=== PATIENT | male | born 1970 | race American Indian/Alaskan Native ===

== ENCOUNTER 2016-10-20 12:05 | Outpatient (CLI) | payer OTHER ==
[2016-10-20] MEDS ORDERED: PROVENTIL IH ONE (12:25)
== END 2016-10-20 12:06 | disposition home or self-care (01) ==
LOC: PF 12:05
PROVIDERS: ATTEND Internal Medicine
DX: N19 Unspecified kidney failure (principal); J44.9 Chronic obstructive pulmonary disease, unspecified; J45.909 Unspecified asthma, uncomplicated; I10 Essential (primary) hypertension; E11.9 Type 2 diabetes mellitus without complications; G47.30 Sleep apnea, unspecified
CPT/HCPCS: 94060; 94640; 94729

== ENCOUNTER 2019-01-22 17:19 | Emergency (ER) | payer MEDICARE, OTHER ==
[2019-01-22] MEDS ORDERED: DUONEB *Not for PRN Use IH ONE (17:27)
[2019-01-22] MEDS ORDERED: SOLU-Medrol IV ONE ×2 (17:27→18:07)
[2019-01-22] MEDS ORDERED: BENADRYL IV STA (17:27)
--- NOTE | 2019-01-22 18:04 | XRay Report ---
PROCEDURE: XR CHEST ROUTINE 2V TECHNIQUE: PA and lateral chest radiographs were obtained. HISTORY: COUGH/CHEST PAIN COMPARISONS: None. FINDINGS: Frontal view of the chest was acquired. The heart is normal in size. The lungs appear clear . The pleura and mediastinum are within normal limits. IMPRESSION: No active disease in the chest This document is electronically signed by Matteo Mooney MD., January 22 2019 06:01:42 PM ET
[2019-01-22] MEDS ORDERED: ADRENALINE P/F SUB-Q ONE ×2 (18:07→20:30)
[2019-01-22] MEDS ORDERED: ATROVENT IH ONE (18:07)
[2019-01-22] MEDS ORDERED: PROVENTIL IH ONE (18:07)
[2019-01-22] MEDS ORDERED: MAGNESIUM SULFATE 2GM/50ML 2 GM/50 ML BAG IV ONE (18:08)
[2019-01-22] MEDS ORDERED: NACL 0.9% 250ML 250 ML IV ONE (18:08)
--- NOTE | 2019-01-22 18:08 | Emergency Department Report ---
"ED General Adult HPI - General Chief complaint: Dyspnea/Respdistress Stated complaint: COPD Time Seen by Provider: 01/22/19 17:27 Source: patient, RN notes reviewed, old records reviewed Mode of arrival: Ambulatory Limitations: No Limitations - History of Present Illness Initial comments: This is a 48-year-old gentleman. The patient is not known to this provider previously. He has a history of asthma, hypertension, obesity, obstructive sleep apnea. He has a private gas appliance mechanic, but he cannot recall their name. His primary care doctor is Dr. Harris He presents to the ER today with a complaint of cough, wheezing, sinus pressure, sinus congestion, central chest pressure. His symptoms have been present for the past 2-3 days. His chest wall pain is central and bilateral. It does not radiate to the back, arms and neck. It increases with palpation. It decreases with rest. Positive aspirin consumption in the past 7 days. Denies DVT, pul monary embolus risk factors. There is no vomiting. There is no diaphoresis. The patient endorses chronic shortness of breath, which is worse. He endorses cough, and clear mucus production. He is on home oxygen at home, and uses it on an as-needed basis. He is not use a CPAP machine for sleep apnea, as he endorses an inability to tolerate nasal pillows and facial mask. He reports that his private gas appliance mechanic is aware of this. This is a chronic condition. -: Gradual, days(s) Location: head, face, mouth, chest Radiation: non-radiation Quality: aching Consistency: other Improves with: other Worsens with: other - Related Data Home Medications Medication Instructions Recorded Confirmed Last Taken ALBUTEROL Inhaler (OR & NICU) 2 puff IH QID PRN 04/27/13 01/16/14 04/27/13 [Proair] ALBUTEROL NEB's [Proventil 0.083%] 2.5 mg IH TID PRN 04/27/13 01/16/14 04/27/13 Fluticasone/Salmeterol [Advair 1 puff IH BID 04/27/13 01/16/14 04/27/13 Diskus 250-50 mcg] Potassium Chloride [Klor-Con M10] 10 meq PO QDAY 04/27/13 01/16/14 04/27/13 hydroCHLOROthiazide [Hctz] 12.5 mg PO QDAY 04/27/13 01/16/14 04/27/13 Previous Rx's Medication Instructions Recorded Last Taken Type Albuterol Sulfate [Proair 90 mcg IH Q4HR PRN #2 aer.pow.ba 01/22/19 Unknown Rx Respiclick] Benzonatate [Tessalon Perles] 100 mg PO Q8HR PRN #30 capsule 01/22/19 Unknown Rx Doxycycline Hyclate [Doxycycline 100 mg PO Q12HR 5 Days #10 tab 01/22/19 Unknown Rx Hyclate TAB] Fluticasone [Flonase] 1 spray NS QDAY #1 bottle 01/22/19 Unknown Rx Ibuprofen [Motrin] 600 mg PO Q8H PRN #30 tablet 01/22/19 Unknown Rx Ipratropium (Nf) [Atrovent] 2 puff IH Q6HR PRN #2 inha 01/22/19 Unknown Rx predniSONE [Deltasone] 40 mg PO QDAY #8 tab 01/22/19 Unknown Rx Allergies Allergy/AdvReac Type Severity Reaction Status Date / Time Penicillins Allergy Rash Verified 01/22/19 17:19 ED Review of Systems ROS: Stated complaint: COPD Other details as noted in HPI Constitutional: malaise. denies: fever Respiratory: cough, wheezing Cardiovascular: chest pain Gastrointestinal: denies: abdominal pain, nausea, vomiting Genitourinary: denies: dysuria Musculoskeletal: denies: back pain Skin: denies: lesions Neurological: denies: headache Psychiatric: denies: anxiety ED Past Medical Hx - Past Medical History Hx Hypertension: Yes Hx Congestive Heart Failure: Yes Hx Asthma: Yes Additional medical history: sleep apnea - Social History Smoking Status: Never Smoker Substance Use Type: None - Medications Home Medications: Home Medications Medication Instructions Recorded Confirmed Last Taken Type ALBUTEROL Inhaler (OR & NICU) 2 puff IH QID PRN 04/27/13 01/16/14 04/27/13 History [Proair] ALBUTEROL NEB's [Proventil 0.083%] 2.5 mg IH TID PRN 04/27/13 01/16/14 04/27/13 History Fluticasone/Salmeterol [Advair 1 puff IH BID 04/27/13 01/16/14 04/27/13 History Diskus 250-50 mcg] Potassium Chloride [Klor-Con M10] 10 meq PO QDAY 04/27/13 01/16/14 04/27/13 History hydroCHLOROthiazide [Hctz] 12.5 mg PO QDAY 04/27/13 01/16/14 04/27/13 History Albuterol Sulfate [Proair 90 mcg IH Q4HR PRN #2 aer.pow.ba 01/22/19 Unknown Rx Respiclick] Benzonatate [Tessalon Perles] 100 mg PO Q8HR PRN #30 capsule 01/22/19 Unknown Rx Doxycycline Hyclate [Doxycycline 100 mg PO Q12HR 5 Days #10 tab 01/22/19 Unknown Rx Hyclate TAB] Fluticasone [Flonase] 1 spray NS QDAY #1 bottle 01/22/19 Unknown Rx Ibuprofen [Motrin] 600 mg PO Q8H PRN #30 tablet 01/22/19 Unknown Rx Ipratropium (Nf) [Atrovent] 2 puff IH Q6HR PRN #2 inha 01/22/19 Unknown Rx predniSONE [Deltasone] 40 mg PO QDAY #8 tab 01/22/19 Unknown Rx ED Physical Exam - General Limitations: No Limitations General appearance: alert, in no apparent distress, obese - Head Head exam: Present: atraumatic, normocephalic - Eye Eye exam: Present: normal appearance, EOMI. Absent: nystagmus - ENT ENT exam: Present: normal exam, normal orophraynx, mucous membranes moist, normal external ear exam - Neck Neck exam: Present: normal inspection, full ROM. Absent: tenderness, meningismus - Respiratory Respiratory exam: Present: respiratory distress, wheezes, stridor - Cardiovascular Cardiovascular Exam: Present: regular rate, normal rhythm, normal heart sounds. Absent: bradycardia, tachycardia, irregular rhythm, systolic murmur, diastolic murmur, rubs, gallop - GI/Abdominal GI/Abdominal exam: Present: soft. Absent: distended, tenderness, guarding, rebound, rigid, pulsatile mass - Rectal Rectal exam: Present: deferred - Extremities Exam Extremities exam: Present: normal inspection, full ROM, pedal edema (1+ edema in the bilateral lower extremities.), other (2+ pulses noted in the bilateral upper, lower extremities. Compartments soft. No long bony tenderness. The pelvis is stable.). Absent: calf tenderness - Back Exam Back exam: Present: normal inspection, full ROM. Absent: tenderness, CVA tenderness (R), CVA tenderness (L), paraspinal tenderness, vertebral tenderness - Neurological Exam Neurological exam: Present: alert, oriented X3, other (Extraocular movements intact. Tongue midline. No facial droop. Facial sensation intact to light touch in the V1, V2, V3 distribution bilaterally. 5 and 5 strength in 4 extremities.. Sensation is intact to light touch in 4 extremities.). Absent: motor sensory deficit - Psychiatric Psychiatric exam: Present: normal affect, normal mood - Skin Skin exam: Present: warm, dry, intact, normal color. Absent: rash ED Course Vital Signs 01/22/19 01/22/19 01/22/19 17:27 17:44 17:46 Temperature 98.3 F Pulse Rate 95 H 96 H 89 Pulse Rate [ Right Lower Lobe] Respiratory 24 16 18 Rate Respiratory Rate [Right Lower Lobe] Blood Pressure 133/94 O2 Sat by Pulse 94 97 Oximetry 01/22/19 01/22/19 01/22/19 18:00 18:16 18:30 Temperature Pulse Rate 87 89 95 H Pulse Rate [ Right Lower Lobe] Respiratory 15 20 18 Rate Respiratory Rate [Right Lower Lobe] Blood Pressure 132/83 139/84 139/84 O2 Sat by Pulse 97 94 94 Oximetry 01/22/19 01/22/19 01/22/19 18:46 18:57 18:58 Temperature Pulse Rate 85 Pulse Rate [ 80 80 Right Lower Lobe] Respiratory 21 Rate Respiratory 16 16 Rate [Right Lower Lobe] Blood Pressure 139/84 O2 Sat by Pulse 93 Oximetry 01/22/19 01/22/19 01/22/19 19:00 19:16 19:30 Temperature Pulse Rate 78 86 Pulse Rate [ 80 Right Lower Lobe] Respiratory 9 L 15 Rate Respiratory 17 Rate [Right Lower Lobe] Blood Pressure 139/84 139/84 O2 Sat by Pulse 100 99 Oximetry 01/22/19 01/22/19 20:28 21:28 Temperature Pulse Rate 87 Pulse Rate [ 83 Right Lower Lobe] Respiratory 12 Rate Respiratory 18 Rate [Right Lower Lobe] Blood Pressure 139/84 O2 Sat by Pulse 100 Oximetry - Reevaluation(s) Reevaluation #1: 01/22/19 20:31 Differential diagnosis, including not limited to: Sinusitis, bronchitis, COPD exacerbation, pneumonia, acute coronary syndrome, pulmonary embolus, GERD, gastritis Pulmonary hypertension, obstructive sleep apnea Assessment and plan: 48-year-old gentleman, pulmonary embolus or DVT risk factors, low risk by well's criteria, d-dimer negative, perc negative, with probable COPD exacerbation and sinusitis. EKG abnormal, but unchanged from prior. Troponin negative 1 in the context of over 48 hours of symptoms. Low risk by the heart score, unlikely to be acute coronary syndrome. This is most likely an exacerbation of the patient's chronic underlying respiratory illnesses . He will be treated with albuterol, Atrovent, steroids, magnesium, subcutaneous epinephrine, intranasal Flonase and ibuprofen. He is currently receiving his nebulizer therapy now, feels improved, but is still wheezing. Troponin #2, EKG #2 are pending at this time. Reevaluation #2: 01/22/19 21:45 Patient is reassessed. He feels much improved. Troponin negative 2. EKG unchanged from prior. Worker breathing much improved. Wheezing has diminished considerably. Given past medical history expect mild degree of VQ mismatch. Patient saturating 88% to 95% on room air. He endorses readiness for discharge. We will discharge instructions follow up with outpatient pulmonology, cardiology. Return precautions are reviewed. Patient endorses understanding. ED Medical Decision Making - Lab Data Result diagrams: 01/22/19 18:12 01/22/19 18:12 Vital Signs 01/22/19 01/22/19 01/22/19 17:27 17:44 17:46 Temperature 98.3 F Pulse Rate 95 H 96 H 89 Pulse Rate [ Right Lower Lobe] Respiratory 24 16 18 Rate Respiratory Rate [Right Lower Lobe] Blood Pressure 133/94 O2 Sat by Pulse 94 97 Oximetry 01/22/19 01/22/19 01/22/19 18:00 18:16 18:30 Temperature Pulse Rate 87 89 95 H Pulse Rate [ Right Lower Lobe] Respiratory 15 20 18 Rate Respiratory Rate [Right Lower Lobe] Blood Pressure 132/83 139/84 139/84 O2 Sat by Pulse 97 94 94 Oximetry 01/22/19 01/22/19 01/22/19 18:46 18:57 18:58 Temperature Pulse Rate 85 Pulse Rate [ 80 80 Right Lower Lobe] Respiratory 21 Rate Respiratory 16 16 Rate [Right Lower Lobe] Blood Pressure 139/84 O2 Sat by Pulse 93 Oximetry 01/22/19 01/22/19 01/22/19 19:00 19:16 19:30 Temperature Pulse Rate 78 86 Pulse Rate [ 80 Right Lower Lobe] Respiratory 9 L 15 Rate Respiratory 17 Rate [Right Lower Lobe] Blood Pressure 139/84 139/84 O2 Sat by Pulse 100 99 Oximetry 01/22/19 20:28 Temperature Pulse Rate 87 Pulse Rate [ Right Lower Lobe] Respiratory 12 Rate Respiratory Rate [Right Lower Lobe] Blood Pressure 139/84 O2 Sat by Pulse 100 Oximetry Lab Results 01/22/19 01/22/19 01/22/19 Range/Units 18:12 18:12 18:12 WBC 8.5 (4.5-11.0) K/mm3 RBC 4.34 (3.65-5.03) M/mm3 Hgb 13.3 (11.8-15.2) gm/dl Hct 39.6 (35.5-45.6) % MCV 91 (84-94) fl MCH 31 (28-32) pg MCHC 34 (32-34) % RDW 14.7 (13.2-15.2) % Plt Count 319 (140-440) K/mm3 PT 13.5 (12.2-14.9) Sec. INR 1.06 (0.87-1.13) D-Dimer 136.37 (0-234) ng/mlDDU Sodium 140 (137-145) mmol/L Potassium 3.4 L (3.6-5.0) mmol/L Chloride 99.7 (98-107) mmol/L Carbon Dioxide 28 (22-30) mmol/L Anion Gap 16 mmol/L BUN 20 (9-20) mg/dL Creatinine 1.0 (0.8-1.5) mg/dL Estimated GFR > 60 ml/min BUN/Creatinine Ratio 20 % Glucose 107 H (75-100) mg/dL Calcium 8.7 (8.4-10.2) mg/dL Magnesium (1.7-2.3) mg/dL Troponin T < 0.010 (0.00-0.029) ng/mL 01/22/19 Range/Units 18:12 WBC (4.5-11.0) K/mm3 RBC (3.65-5.03) M/mm3 Hgb (11.8-15.2) gm/dl Hct (35.5-45.6) % MCV (84-94) fl MCH (28-32) pg MCHC (32-34) % RDW (13.2-15.2) % Plt Count (140-440) K/mm3 PT (12.2-14.9) Sec. INR (0.87-1.13) D-Dimer (0-234) ng/mlDDU Sodium (137-145) mmol/L Potassium (3.6-5.0) mmol/L Chloride (98-107) mmol/L Carbon Dioxide (22-30) mmol/L Anion Gap mmol/L BUN (9-20) mg/dL Creatinine (0.8-1.5) mg/dL Estimated GFR ml/min BUN/Creatinine Ratio % Glucose (75-100) mg/dL Calcium (8.4-10.2) mg/dL Magnesium 2.10 (1.7-2.3) mg/dL Troponin T (0.00-0.029) ng/mL - EKG Data -: EKG Interpreted by [facility] EKG shows normal: sinus rhythm Rate: normal - EKG Data When compared to previous EKG there are: no significant change 01/22/19 20:33 EKG shows a normal sinus rhythm, 92 bpm, left axis, left anterior fascicular block, QTC prolonged, motion artifact, this is an abnormal EKG. This EKG is not consistent with ST elevation myocardial infarction. This EKG is unchanged from prior EKG from January 2014 - Radiology Data Radiology results: report reviewed, image reviewed X-ray of the chest is negative for acute disease Critical care attestation.: If time is entered above; I have spent that time in minutes in the direct care of this critically ill patient, excluding procedure time. ED Disposition Clinical Impression: COPD exacerbation, History of chest pain Disposition: DC-01 TO HOME OR SELFCARE Is pt being admited?: No Does the pt Need Aspirin: No Condition: Good Instructions: Chronic Obstructive Pulmonary Disease (ED) Additional Instructions: Continue outpatient medications. Take the medications as needed/directed. Follow up with a gas appliance mechanic and/or sleep specialist within the next 2-3 weeks. Follow up with a primary care doctor or pupil personnel worker for chest pain within the next 3-5 days. Return to the emergency room right away with new, worsening or different symptoms, or symptoms not present on the initial emergency room evaluation. Dr Win, sleep physician: [place] [id number] [address], [address] | [address] / [facility]: [address] [facility] [place] [facility] [address], [address] | [place], [place] [address] Laboratory: [address] [facility] [address] | [place], [place] [address] PHONE: [phone] PAP Supplies: [phone] Other local pulmonary doctors include the following physicians: Briseida Garber Local family centered specialist included doctors Aaron Valerio Referrals: [facility] MD THOR [Primary Care Provider] - 3-5 Days ALBA BRAVO MD [Staff Physician] - 3-5 Days CHAIM GOMEZ MD [Staff Physician] - 3-5 Days MACIEJ VALERIO MD [Staff Physician] - 3-5 Days KAYLA LY MD [Staff Physician] - 3-5 Days"
[2019-01-22 18:44] LABS: Hematocrit 39.6 % (35.5-45.6); Hemoglobin 13.3 gm/dl (11.8-15.2); Mean Corpuscular HGB Conc 34 % (32-34); Mean Corpuscular Volume 91 fl (84-94); Platelet Count 319 K/mm3 (140-440); Red Blood Count 4.34 M/mm3 (3.65-5.03); Red Cell Distribution Width 14.7 % (13.2-15.2)
[2019-01-22 18:47] LABS: INR 1.06 (0.87-1.13)
[2019-01-22 18:53] LABS: BUN/Creatinine Ratio 20; Blood Urea Nitrogen 20 mg/dL (9-20); Calcium 8.7 mg/dL (8.4-10.2); Hemolysis Index 1
[2019-01-22] MEDS ORDERED: IBUPROFEN PO ONE (20:30)
[2019-01-22] MEDS ORDERED: K-DUR PO ONE (20:33)
[2019-01-22] MEDS ORDERED: FLONASE NS ONE (21:00)
[2019-01-22 22:07] VITALS: BP 145/68
== END 2019-01-22 22:15 | disposition home or self-care (01) ==
LOC: ED 17:19
DX: J44.1 Chronic obstructive pulmonary disease with (acute) exacerbation (principal); R07.89 Other chest pain; I11.0 Hypertensive heart disease with heart failure; I50.9 Heart failure, unspecified; Z79.899 Other long term (current) drug therapy; Z88.0 Allergy status to penicillin
CPT/HCPCS: 36415; 71046; 80048; 83735; 84484; 85027; 85379; 85610; 93005; 93010; 94640; 94644; 96365; 96372; 96375; 99285; J0171; J2930; J3475; J7050

== ENCOUNTER 2019-02-26 16:37 | Emergency (ER) | payer MEDICARE ==
--- NOTE | 2019-02-26 16:42 | Event Note ---
ED Screening Note Date of service: 02/26/19 Time: 16:41 ED Screening Note: 49 y/o male comes in for sob history of COPD and Asthma since 2-3 days. Still smokes. This initial assessment/diagnostic orders/clinical plan/treatment(s) is/are subject to change based on patients health status, clinical progression and re- assessment by fellow clinical providers in the ED. Further treatment and workup at subsequent clinical providers discretion. Patient/guardian urged not to elope from the ED as their condition may be serious if not clinically assessed and managed. Initial orders include:
[2019-02-26 17:11] LABS: Hematocrit 41.6 % (35.5-45.6); Mean Corpuscular HGB Conc 34 % (32-34); Mean Corpuscular Volume 93 fl (84-94); Platelet Count 304 K/mm3 (140-440); Red Blood Count 4.48 M/mm3 (3.65-5.03); Red Cell Distribution Width 14.8 % (13.2-15.2)
--- NOTE | 2019-02-26 17:13 | XRay Report ---
. CHEST 2 VIEWS INDICATION / CLINICAL INFORMATION: sob. COMPARISON: 01/22/2019 FINDINGS: SUPPORT DEVICES: None. HEART / MEDIASTINUM: No significant abnormality. LUNGS / PLEURA: No significant pulmonary or pleural abnormality. No pneumothorax. ADDITIONAL FINDINGS: No significant additional findings. IMPRESSION: 1. No acute findings. Signer Name: Ced Smith MD Signed: 02/26/2019 5:08 PM Workstation Name: [id number]
[2019-02-26] MEDS ORDERED: PROVENTIL IH ONE (17:24)
[2019-02-26] MEDS ORDERED: ATROVENT IH ONE (17:24)
[2019-02-26] MEDS ORDERED: SOLU-Medrol IV ONE (17:24)
--- NOTE | 2019-02-26 17:27 | Emergency Department Report ---
ED General Adult HPI - General Chief complaint: Upper Respiratory Infection Stated complaint: COPD/SOB Time Seen by Provider: 02/26/19 17:00 Source: patient Mode of arrival: Ambulatory Limitations: No Limitations - History of Present Illness Initial comments: The patient presents to the emergency department with a chief complaint of shortness of breath. The patient states he has COPD and takes 20 mg of prednisone twice daily( for 8 years) but has run out of his steroids at home. Patient denies any chest pain, abdominal pain, headache.Patient states the breathing treatments aren't working -: Gradual Severity scale (0 -10): 0 Consistency: constant Improves with: none Worsens with: none Associated Symptoms: denies other symptoms Treatments Prior to Arrival: none - Related Data Home Medications Medication Instructions Recorded Confirmed Last Taken ALBUTEROL Inhaler (OR & NICU) 2 puff IH QID PRN 04/27/13 01/16/14 04/27/13 [Proair] ALBUTEROL NEB's [Proventil 0.083%] 2.5 mg IH TID PRN 04/27/13 01/16/14 04/27/13 Fluticasone/Salmeterol [Advair 1 puff IH BID 04/27/13 01/16/14 04/27/13 Diskus 250-50 mcg] Potassium Chloride [Klor-Con M10] 10 meq PO QDAY 04/27/13 01/16/14 04/27/13 hydroCHLOROthiazide [Hctz] 12.5 mg PO QDAY 04/27/13 01/16/14 04/27/13 Previous Rx's Medication Instructions Recorded Last Taken Type Albuterol Sulfate [Proair 90 mcg IH Q4HR PRN #2 aer.pow.ba 01/22/19 Unknown Rx Respiclick] Benzonatate [Tessalon Perles] 100 mg PO Q8HR PRN #30 capsule 01/22/19 Unknown Rx Doxycycline Hyclate [Doxycycline 100 mg PO Q12HR 5 Days #10 tab 01/22/19 Unknown Rx Hyclate TAB] Fluticasone [Flonase] 1 spray NS QDAY #1 bottle 01/22/19 Unknown Rx Ibuprofen [Motrin] 600 mg PO Q8H PRN #30 tablet 01/22/19 Unknown Rx Ipratropium (Nf) [Atrovent] 2 puff IH Q6HR PRN #2 inha 01/22/19 Unknown Rx predniSONE [Deltasone] 40 mg PO QDAY #8 tab 01/22/19 Unknown Rx ALBUTEROL Inhaler (OR & NICU) 2 puff IH QID PRN #1 inhalation 01/23/19 Unknown Rx [ProAir HFA Inhaler] Albuterol Sulfate [Albuterol 0.63% 0.63 mg IH Q4HR PRN #2 ml 01/23/19 Unknown Rx NEBS] Ipratropium [Atrovent NEB] 0.5 mg IH Q4HR #2 ml 01/23/19 Unknown Rx Azithromycin [Zithromax Z-JESICA] 250 mg PO DAILY #6 tablet 02/26/19 Unknown Rx predniSONE [Deltasone] 20 mg PO BID #14 tablet 02/26/19 Unknown Rx Allergies Allergy/AdvReac Type Severity Reaction Status Date / Time Penicillins Allergy Rash Verified 01/22/19 17:19 ED Review of Systems ROS: Stated complaint: COPD/SOB Other details as noted in HPI Constitutional: denies: chills, fever Eyes: denies: eye pain, eye discharge, vision change ENT: denies: ear pain, throat pain Respiratory: shortness of breath. denies: cough, wheezing Cardiovascular: denies: chest pain, palpitations Endocrine: no symptoms reported Gastrointestinal: denies: abdominal pain, nausea, diarrhea Genitourinary: denies: urgency, dysuria Musculoskeletal: denies: back pain, joint swelling, arthralgia Skin: denies: rash, lesions Neurological: denies: headache, weakness, paresthesias Psychiatric: denies: anxiety, depression Hematological/Lymphatic: denies: easy bleeding, easy bruising ED Past Medical Hx - Past Medical History Previous Medical History?: Yes Hx Hypertension: Yes Hx Congestive Heart Failure: Yes Hx Asthma: Yes Additional medical history: sleep apnea - Surgical History Past Surgical History?: No - Social History Smoking Status: Current Some Day Smoker Substance Use Type: Alcohol - Medications Home Medications: Home Medications Medication Instructions Recorded Confirmed Last Taken Type ALBUTEROL Inhaler (OR & NICU) 2 puff IH QID PRN 04/27/13 01/16/14 04/27/13 History [Proair] ALBUTEROL NEB's [Proventil 0.083%] 2.5 mg IH TID PRN 04/27/13 01/16/14 04/27/13 History Fluticasone/Salmeterol [Advair 1 puff IH BID 04/27/13 01/16/14 04/27/13 History Diskus 250-50 mcg] Potassium Chloride [Klor-Con M10] 10 meq PO QDAY 04/27/13 01/16/14 04/27/13 History hydroCHLOROthiazide [Hctz] 12.5 mg PO QDAY 04/27/13 01/16/14 04/27/13 History Albuterol Sulfate [Proair 90 mcg IH Q4HR PRN #2 aer.pow.ba 01/22/19 Unknown Rx Respiclick] Benzonatate [Tessalon Perles] 100 mg PO Q8HR PRN #30 capsule 01/22/19 Unknown Rx Doxycycline Hyclate [Doxycycline 100 mg PO Q12HR 5 Days #10 tab 01/22/19 Unknown Rx Hyclate TAB] Fluticasone [Flonase] 1 spray NS QDAY #1 bottle 01/22/19 Unknown Rx Ibuprofen [Motrin] 600 mg PO Q8H PRN #30 tablet 01/22/19 Unknown Rx Ipratropium (Nf) [Atrovent] 2 puff IH Q6HR PRN #2 inha 01/22/19 Unknown Rx predniSONE [Deltasone] 40 mg PO QDAY #8 tab 01/22/19 Unknown Rx ALBUTEROL Inhaler (OR & NICU) 2 puff IH QID PRN #1 inhalation 01/23/19 Unknown Rx [ProAir HFA Inhaler] Albuterol Sulfate [Albuterol 0.63% 0.63 mg IH Q4HR PRN #2 ml 01/23/19 Unknown Rx NEBS] Ipratropium [Atrovent NEB] 0.5 mg IH Q4HR #2 ml 01/23/19 Unknown Rx Azithromycin [Zithromax Z-JESICA] 250 mg PO DAILY #6 tablet 02/26/19 Unknown Rx predniSONE [Deltasone] 20 mg PO BID #14 tablet 02/26/19 Unknown Rx ED Physical Exam - General Limitations: No Limitations General appearance: alert, in no apparent distress - Head Head exam: Present: atraumatic, normocephalic - Eye Eye exam: Present: normal appearance - ENT ENT exam: Present: mucous membranes moist - Neck Neck exam: Present: normal inspection - Respiratory Respiratory exam: Present: wheezes. Absent: respiratory distress - Cardiovascular Cardiovascular Exam: Present: regular rate, normal rhythm. Absent: systolic murmur, diastolic murmur, rubs, gallop - GI/Abdominal GI/Abdominal exam: Present: soft, normal bowel sounds. Absent: distended, tenderness - Rectal Rectal exam: Present: deferred - Extremities Exam Extremities exam: Present: normal inspection - Back Exam Back exam: Present: normal inspection - Neurological Exam Neurological exam: Present: alert, oriented X3, CN II-XII intact. Absent: motor sensory deficit - Psychiatric Psychiatric exam: Present: normal affect, normal mood - Skin Skin exam: Present: warm, dry, intact, normal color. Absent: rash ED Course Vital Signs 02/26/19 02/26/19 02/26/19 16:40 17:08 17:09 Temperature 97.9 F Pulse Rate 86 Pulse Rate [ Throughout] Respiratory 20 Rate Respiratory Rate [ Throughout] Blood Pressure 154/98 O2 Sat by Pulse 94 95 94 Oximetry 02/26/19 02/26/19 02/26/19 17:10 17:11 17:12 Temperature Pulse Rate 91 H 93 H Pulse Rate [ Throughout] Respiratory 15 13 17 Rate Respiratory Rate [ Throughout] Blood Pressure 141/96 141/96 O2 Sat by Pulse 93 95 96 Oximetry 02/26/19 02/26/19 02/26/19 17:13 17:31 18:01 Temperature Pulse Rate 86 84 84 Pulse Rate [ Throughout] Respiratory 15 20 18 Rate Respiratory Rate [ Throughout] Blood Pressure 141/96 141/96 136/103 O2 Sat by Pulse 93 91 97 Oximetry 02/26/19 18:31 Temperature Pulse Rate Pulse Rate [ 99 H Throughout] Respiratory Rate Respiratory 20 Rate [ Throughout] Blood Pressure O2 Sat by Pulse Oximetry ED Medical Decision Making - Lab Data Result diagrams: 02/26/19 16:47 02/26/19 16:47 Lab Results 02/26/19 02/26/19 Range/Units 16:47 16:47 WBC 7.5 (4.5-11.0) K/mm3 RBC 4.48 (3.65-5.03) M/mm3 Hgb 14.0 (11.8-15.2) gm/dl Hct 41.6 (35.5-45.6) % MCV 93 (84-94) fl MCH 31 (28-32) pg MCHC 34 (32-34) % RDW 14.8 (13.2-15.2) % Plt Count 304 (140-440) K/mm3 Sodium 141 (137-145) mmol/L Potassium 3.9 (3.6-5.0) mmol/L Chloride 102.9 (98-107) mmol/L Carbon Dioxide 26 (22-30) mmol/L Anion Gap 16 mmol/L BUN 15 (9-20) mg/dL Creatinine 1.1 (0.8-1.5) mg/dL Estimated GFR > 60 ml/min BUN/Creatinine Ratio 14 % Glucose 106 H (75-100) mg/dL Calcium 8.9 (8.4-10.2) mg/dL Total Bilirubin 0.40 (0.1-1.2) mg/dL AST 24 (5-40) units/L ALT 25 (7-56) units/L Alkaline Phosphatase 71 (35-129) units/L NT-Pro-B Natriuret Pep 10.58 (0-450) pg/mL Total Protein 7.6 (6.3-8.2) g/dL Albumin 3.8 L (3.9-5) g/dL Albumin/Globulin Ratio 1.0 % - Radiology Data Radiology results: report reviewed - Medical Decision Making Improved with continuous breathing treatment patient states he needs hos steroids Patient states he has a x ray service technician appointment on the 30th Critical care attestation.: If time is entered above; I have spent that time in minutes in the direct care of this critically ill patient, excluding procedure time. ED Disposition Clinical Impression: COPD with acute exacerbation Disposition: DC- TO HOME OR SELFCARE Is pt being admited?: No Does the pt Need Aspirin: No Condition: Stable Instructions: Chronic Obstructive Pulmonary Disease (ED) Additional Instructions: return if worse Prescriptions: predniSONE [Deltasone] 20 mg PO BID #14 tablet Azithromycin [Zithromax Z-JESICA] 250 mg PO DAILY #6 tablet Referrals: PRIMARY CARE, [Primary Care Provider] - 3-5 Days [facility] [Provider Group] - 3-5 Days [facility] [Provider Group] - 3-5 Days Time of Disposition: 18:49
[2019-02-26 17:31] LABS: Alanine Aminotransferase 25 units/L (7-56); Albumin 3.8 g/dL (3.9-5); BUN/Creatinine Ratio 14; Blood Urea Nitrogen 15 mg/dL (9-20); Calcium 8.9 mg/dL (8.4-10.2); Hemolysis Index 36
[2019-02-26 18:57] VITALS: BP 133/101
== END 2019-02-26 19:32 | disposition home or self-care (01) ==
LOC: ED 16:37
DX: J44.1 Chronic obstructive pulmonary disease with (acute) exacerbation (principal); I11.0 Hypertensive heart disease with heart failure; I50.9 Heart failure, unspecified; G47.30 Sleep apnea, unspecified; F17.200 Nicotine dependence, unspecified, uncomplicated; Z79.899 Other long term (current) drug therapy; Z88.0 Allergy status to penicillin; Z79.1 Long term (current) use of non-steroidal anti-inflammatories (NSAID)
CPT/HCPCS: 36415; 71046; 80053; 83880; 85027; 94640; 96374; 99284; J2930; 94644

== ENCOUNTER 2019-03-30 10:43 | Emergency (ER) | payer MEDICARE ==
[2019-03-30 11:22] LABS: Basophils % (Auto) 0.6 % (0.0-1.8); Eosinophils # (Auto) 0.2 K/mm3 (0.0-0.4); Hematocrit 45.1 % (35.5-45.6); Hemoglobin 15.6 gm/dl (11.8-15.2); Lymphocytes # (Auto) 2.4 K/mm3 (1.2-5.4); Lymphocytes % (Auto) 41.9 % (13.4-35.0); Mean Corpuscular HGB Conc 35 % (32-34); Mean Corpuscular Volume 91 fl (84-94); Monocytes # (Auto) 0.5 K/mm3 (0.0-0.8); Monocytes % (Auto) 9.5 % (0.0-7.3); Platelet Count 213 K/mm3 (140-440); Red Blood Count 4.96 M/mm3 (3.65-5.03); Red Cell Distribution Width 14.2 % (13.2-15.2)
[2019-03-30 11:26] LABS: Bilirubin,Urine NEG (Negative); Blood,Urine SM (Negative); Color,Urine Straw (Yellow); Urobilinogen,Urine < 2.0 mg/dL (<2.0); WBC,Urine < 1.0 /HPF (0.0-6.0)
[2019-03-30 11:39] LABS: Alanine Aminotransferase 31 units/L (7-56); Albumin 3.8 g/dL (3.9-5); BUN/Creatinine Ratio 10; Blood Urea Nitrogen 10 mg/dL (9-20); Hemolysis Index 49
--- NOTE | 2019-03-30 11:51 | Emergency Department Report ---
ED General Adult HPI - General Chief complaint: Weakness Stated complaint: LIGHT HEADED/SOB/DRY MOUTH Time Seen by Provider: 03/30/19 11:33 Source: patient Mode of arrival: Ambulatory Limitations: No Limitations - History of Present Illness Initial comments: This is a 49-year-old male with a history of COPD on daily steroids presents to ED stating that his glucose were out of whack. Patient states that his primary care physician has him on steroids 20 mg twice a day. Patient states since he isn't taking steroids his glucose has not been controlled. This is states that he is not taking insulin or any hypoglycemic medication. Patient states he since been taking steroids that his States recently glucose levels have been elevated. Patient states that he's having dry mouth, fatigue and frequent urination which his symptoms of his diabetes uncontrolled. Patient denies any nausea vomiting diarrhea abdominal pain - Related Data Home Medications Medication Instructions Recorded Confirmed Last Taken ALBUTEROL Inhaler (OR & NICU) 2 puff IH QID PRN 04/27/13 01/16/14 04/27/13 [Proair] ALBUTEROL NEB's [Proventil 0.083%] 2.5 mg IH TID PRN 04/27/13 01/16/14 04/27/13 Fluticasone/Salmeterol [Advair 1 puff IH BID 04/27/13 01/16/14 04/27/13 Diskus 250-50 mcg] Potassium Chloride [Klor-Con M10] 10 meq PO QDAY 04/27/13 01/16/14 04/27/13 hydroCHLOROthiazide [Hctz] 12.5 mg PO QDAY 04/27/13 01/16/14 04/27/13 Previous Rx's Medication Instructions Recorded Last Taken Type Albuterol Sulfate [Proair 90 mcg IH Q4HR PRN #2 aer.pow.ba 01/22/19 Unknown Rx Respiclick] Benzonatate [Tessalon Perles] 100 mg PO Q8HR PRN #30 capsule 01/22/19 Unknown Rx Doxycycline Hyclate [Doxycycline 100 mg PO Q12HR 5 Days #10 tab 01/22/19 Unknown Rx Hyclate TAB] Fluticasone [Flonase] 1 spray NS QDAY #1 bottle 01/22/19 Unknown Rx Ibuprofen [Motrin] 600 mg PO Q8H PRN #30 tablet 01/22/19 Unknown Rx Ipratropium (Nf) [Atrovent] 2 puff IH Q6HR PRN #2 inha 01/22/19 Unknown Rx predniSONE [Deltasone] 40 mg PO QDAY #8 tab 01/22/19 Unknown Rx ALBUTEROL Inhaler (OR & NICU) 2 puff IH QID PRN #1 inhalation 01/23/19 Unknown Rx [ProAir HFA Inhaler] Albuterol Sulfate [Albuterol 0.63% 0.63 mg IH Q4HR PRN #2 ml 01/23/19 Unknown Rx NEBS] Ipratropium [Atrovent NEB] 0.5 mg IH Q4HR #2 ml 01/23/19 Unknown Rx Azithromycin [Zithromax Z-JESICA] 250 mg PO DAILY #6 tablet 02/26/19 Unknown Rx predniSONE [Deltasone] 20 mg PO BID #14 tablet 02/26/19 Unknown Rx metFORMIN [Glucophage] 500 mg PO BID #30 tablet 03/30/19 Unknown Rx Allergies Allergy/AdvReac Type Severity Reaction Status Date / Time Penicillins Allergy Rash Verified 03/30/19 10:45 ED Review of Systems ROS: Stated complaint: LIGHT HEADED/SOB/DRY MOUTH Other details as noted in HPI Comment: All other systems reviewed and negative ED Past Medical Hx - Past Medical History Hx Hypertension: Yes Hx Congestive Heart Failure: Yes Hx Asthma: Yes Additional medical history: sleep apnea - Social History Smoking Status: Current Some Day Smoker Substance Use Type: Alcohol - Medications Home Medications: Home Medications Medication Instructions Recorded Confirmed Last Taken Type ALBUTEROL Inhaler (OR & NICU) 2 puff IH QID PRN 04/27/13 01/16/14 04/27/13 History [Proair] ALBUTEROL NEB's [Proventil 0.083%] 2.5 mg IH TID PRN 04/27/13 01/16/14 04/27/13 History Fluticasone/Salmeterol [Advair 1 puff IH BID 04/27/13 01/16/14 04/27/13 History Diskus 250-50 mcg] Potassium Chloride [Klor-Con M10] 10 meq PO QDAY 04/27/13 01/16/14 04/27/13 History hydroCHLOROthiazide [Hctz] 12.5 mg PO QDAY 04/27/13 01/16/14 04/27/13 History Albuterol Sulfate [Proair 90 mcg IH Q4HR PRN #2 aer.pow.ba 01/22/19 Unknown Rx Respiclick] Benzonatate [Tessalon Perles] 100 mg PO Q8HR PRN #30 capsule 01/22/19 Unknown Rx Doxycycline Hyclate [Doxycycline 100 mg PO Q12HR 5 Days #10 tab 01/22/19 Unknown Rx Hyclate TAB] Fluticasone [Flonase] 1 spray NS QDAY #1 bottle 01/22/19 Unknown Rx Ibuprofen [Motrin] 600 mg PO Q8H PRN #30 tablet 01/22/19 Unknown Rx Ipratropium (Nf) [Atrovent] 2 puff IH Q6HR PRN #2 inha 01/22/19 Unknown Rx predniSONE [Deltasone] 40 mg PO QDAY #8 tab 01/22/19 Unknown Rx ALBUTEROL Inhaler (OR & NICU) 2 puff IH QID PRN #1 inhalation 01/23/19 Unknown Rx [ProAir HFA Inhaler] Albuterol Sulfate [Albuterol 0.63% 0.63 mg IH Q4HR PRN #2 ml 01/23/19 Unknown Rx NEBS] Ipratropium [Atrovent NEB] 0.5 mg IH Q4HR #2 ml 01/23/19 Unknown Rx Azithromycin [Zithromax Z-JESICA] 250 mg PO DAILY #6 tablet 02/26/19 Unknown Rx predniSONE [Deltasone] 20 mg PO BID #14 tablet 02/26/19 Unknown Rx metFORMIN [Glucophage] 500 mg PO BID #30 tablet 03/30/19 Unknown Rx ED Physical Exam - General Limitations: No Limitations General appearance: alert, in no apparent distress - Head Head exam: Present: atraumatic, normocephalic - Eye Eye exam: Present: normal appearance - ENT ENT exam: Present: mucous membranes moist - Neck Neck exam: Present: normal inspection - Respiratory Respiratory exam: Present: normal lung sounds bilaterally. Absent: respiratory distress - Cardiovascular Cardiovascular Exam: Present: regular rate, normal rhythm. Absent: systolic murmur, diastolic murmur, rubs, gallop - GI/Abdominal GI/Abdominal exam: Present: soft, normal bowel sounds - Rectal Rectal exam: Present: deferred - Extremities Exam Extremities exam: Present: normal inspection - Back Exam Back exam: Present: normal inspection - Neurological Exam Neurological exam: Present: alert, oriented X3 - Psychiatric Psychiatric exam: Present: normal affect, normal mood - Skin Skin exam: Present: warm, dry, intact, normal color. Absent: rash ED Course Vital Signs 03/30/19 03/30/19 11:06 14:26 Temperature 98.0 F Pulse Rate 78 Respiratory 20 14 Rate Blood Pressure 178/109 [Right] O2 Sat by Pulse 95 Oximetry ED Medical Decision Making - Lab Data Result diagrams: 03/30/19 11:06 03/30/19 11:06 Laboratory Last Values WBC 5.7 K/mm3 (4.5-11.0) 03/30/19 11:06 RBC 4.96 M/mm3 (3.65-5.03) 03/30/19 11:06 Hgb 15.6 gm/dl (11.8-15.2) H 03/30/19 11:06 Hct 45.1 % (35.5-45.6) 03/30/19 11:06 MCV 91 fl (84-94) 03/30/19 11:06 MCH 32 pg (28-32) 03/30/19 11:06 MCHC 35 % (32-34) H 03/30/19 11:06 RDW 14.2 % (13.2-15.2) 03/30/19 11:06 Plt Count 213 K/mm3 (140-440) 03/30/19 11:06 Lymph % (Auto) 41.9 % (13.4-35.0) H 03/30/19 11:06 [place] % (Auto) 9.5 % (0.0-7.3) H 03/30/19 11:06 Eos % (Auto) 4.0 % (0.0-4.3) 03/30/19 11:06 Baso % (Auto) 0.6 % (0.0-1.8) 03/30/19 11:06 Lymph # 2.4 K/mm3 (1.2-5.4) 03/30/19 11:06 [place] # 0.5 K/mm3 (0.0-0.8) 03/30/19 11:06 Eos # 0.2 K/mm3 (0.0-0.4) 03/30/19 11:06 Baso # 0.0 K/mm3 (0.0-0.1) 03/30/19 11:06 Seg Neutrophils % 44.0 % (40.0-70.0) 03/30/19 11:06 Seg Neutrophils # 2.5 K/mm3 (1.8-7.7) 03/30/19 11:06 Sodium 132 mmol/L (137-145) L 03/30/19 11:06 Potassium 3.8 mmol/L (3.6-5.0) 03/30/19 11:06 Chloride 91.8 mmol/L (98-107) L 03/30/19 11:06 Carbon Dioxide 25 mmol/L (22-30) 03/30/19 11:06 19 mmol/L 03/30/19 11:06 BUN 10 mg/dL (9-20) 03/30/19 11:06 1.0 mg/dL (0.8-1.5) 03/30/19 11:06 Estimated GFR > 60 ml/min 03/30/19 11:06 10 % 03/30/19 11:06 Glucose 486 mg/dL (75-100) H 03/30/19 11:06 POC Glucose 412 (70-105) H 03/30/19 10:58 Calcium 9.0 mg/dL (8.4-10.2) 03/30/19 11:06 0.50 mg/dL (0.1-1.2) 03/30/19 11:06 AST 22 units/L (5-40) 03/30/19 11:06 ALT 31 units/L (7-56) 03/30/19 11:06 89 units/L (35-129) 03/30/19 11:06 < 0.010 ng/mL (0.00-0.029) 03/30/19 11:06 7.4 g/dL (6.3-8.2) 03/30/19 11:06 3.8 g/dL (3.9-5) L 03/30/19 11:06 1.1 % 03/30/19 11:06 Straw (Yellow) 03/30/19 Unknown Clear (Clear) 03/30/19 Unknown 5.0 (5.0-7.0) 03/30/19 Unknown Ur Specific [place] 1.032 (1.003-1.030) H 03/30/19 Unknown 30 mg/dl mg/dL (Negative) 03/30/19 Unknown >=500 mg/dL (Negative) 03/30/19 Unknown 20 mg/dL (Negative) 03/30/19 Unknown Sm (Negative) 03/30/19 Unknown Neg (Negative) 03/30/19 Unknown Neg (Negative) 03/30/19 Unknown < 2.0 mg/dL (<2.0) 03/30/19 Unknown Ur Leukocyte Esterase Neg (Negative) 03/30/19 Unknown < 1.0 /HPF (0.0-6.0) 03/30/19 Unknown 2.0 /HPF (0.0-6.0) 03/30/19 Unknown U Epithel Cells (Auto) < 1.0 /HPF (0-13.0) 03/30/19 Unknown - Medical Decision Making 49-year-old male presents with hyperglycemia complaining of frequent urination. Patient is currently on steroids daily for a COPD. Patient states that he has been taking steroids for many years now Patient was infused with the 2 L of normal saline with 10 units of insulin. CBC within normal limits, urinalysis within normal limits. Glucose was rechecked after administration Discussed findings with the patient. Discussed the patient units of follow-up with the primary care physician who used to manage his hyperglycemia due to the amount of steroids taken. Discussed the patient Discussed the patient to follow up with his primary care physician and discuss prescribing him insulin dose to keep his glucose under control. Glucose reduced to 203 prior to Discharge. Patient given metformin twice a day to manage glucose levels temporarily until he follows up with primary care Critical care attestation.: If time is entered above; I have spent that time in minutes in the direct care of this critically ill patient, excluding procedure time. ED Disposition Clinical Impression: Hyperglycemia, Uncontrolled diabetes mellitus Disposition: DC-01 TO HOME OR SELFCARE Is pt being admited?: No Does the pt Need Aspirin: No Condition: Stable Instructions: Diabetes Mellitus Type 2 in Adults (ED) Additional Instructions: Make sure to follow up with the primary care physician as discussed. Take all your medications as you've been prescribed. If you have any worsening symptoms or develop new symptoms please return to ED immediately. Prescriptions: metFORMIN [Glucophage] 500 mg PO BID #30 tablet Referrals: [facility], MD [Primary Care Provider] - 3-5 Days [facility] [Outside] - 3-5 Days [facility] [Outside] - 3-5 Days Forms: Work/School Release Form(ED) Time of Disposition: 14:17
--- NOTE | 2019-03-30 12:01 | XRay Report ---
CHEST 1 VIEW INDICATION: SOB. COMPARISON: 02/26/2019 FINDINGS: Support devices: None. Heart: Normal. Pulmonary vasculature: Normal. Lungs/Pleura: Normally expanded and clear lungs. Pleural effusion. Additional findings: None. IMPRESSION: Normal chest. Signer Name: Red Ferrer MD Signed: 03/30/2019 11:57 AM Workstation Name: [id number]
[2019-03-30] MEDS ORDERED: NACL 0.9% 1000 ML 1,000 ML IV ONE ×2 (12:17→12:23)
[2019-03-30] MEDS ORDERED: HumuLIN R IV ONE (12:18)
[2019-03-30 14:27] VITALS: BP 178/109
== END 2019-03-30 14:53 | disposition home or self-care (01) ==
LOC: ED 10:43
DX: E11.65 Type 2 diabetes mellitus with hyperglycemia (principal); I11.0 Hypertensive heart disease with heart failure; I50.9 Heart failure, unspecified; J45.909 Unspecified asthma, uncomplicated; G47.30 Sleep apnea, unspecified; F17.200 Nicotine dependence, unspecified, uncomplicated; Z88.0 Allergy status to penicillin; Z79.899 Other long term (current) drug therapy
CPT/HCPCS: 36415; 71045; 80053; 81001; 82962; 84484; 85025; 96361; 96374; 99284; J7030; J1815

== ENCOUNTER 2019-06-26 06:53 | Emergency (ER) | payer MEDICARE ==
[2019-06-26 06:59] VITALS: BP 175/100
--- NOTE | 2019-06-26 08:09 | Emergency Department Report ---
ED Upper Extremity Inj HPI - General Chief Complaint: Extremity Injury, Upper Stated Complaint: SWOLLEN FINGER LEFT HAND Time Seen by Provider: 06/26/19 07:16 Source: patient Mode of arrival: Ambulatory Limitations: No Limitations - History of Present Illness Initial Comments: This is a 49-year-old -[place] male who presents to the emergency room with bilateral third finger swelling for 3 days. Past medical history of COPD, congestive heart failure, asthma, hypertension, and diabetes. Patient states initially he thought he had an ingrown nail. He was able to cut the lateral side of left third cuticle. States originally no symptoms until 3 days ago. Patient reports drainage to left third distal finger on yesterday but continues to have pain. Reports mild swelling to the right third distal finger. He denies recent injury, numbness or tingling, fever, chills, or bruising. Complaint: Injury to:: finger (bilateral distal middle fingers) Onset/Timin -: days(s) Other Extremity Injury: Fingers: Left, Right (mental fingers) Other Injuries: none Handedness: right Place: home Severity scale (0 -10): 10 Improves With: immobilization Worsens With: other (palpation) Associated Symptoms: denies other symptoms Treatments Prior to Arrival: NSAIDS - Related Data Home Medications Medication Instructions Recorded Confirmed Last Taken ALBUTEROL Inhaler (OR & NICU) 2 puff IH QID PRN 04/27/13 01/16/14 04/27/13 [Proair] ALBUTEROL NEB's [Proventil 0.083%] 2.5 mg IH TID PRN 04/27/13 01/16/14 04/27/13 Fluticasone/Salmeterol [Advair 1 puff IH BID 04/27/13 01/16/14 04/27/13 Diskus 250-50 mcg] Potassium Chloride [Klor-Con M10] 10 meq PO QDAY 04/27/13 01/16/14 04/27/13 hydroCHLOROthiazide [Hctz] 12.5 mg PO QDAY 04/27/13 01/16/14 04/27/13 Previous Rx's Medication Instructions Recorded Last Taken Type Albuterol Sulfate [Proair 90 mcg IH Q4HR PRN #2 aer.pow.ba 01/22/19 Unknown Rx Respiclick] Benzonatate [Tessalon Perles] 100 mg PO Q8HR PRN #30 capsule 01/22/19 Unknown Rx Doxycycline Hyclate [Doxycycline 100 mg PO Q12HR 5 Days #10 tab 01/22/19 Unknown Rx Hyclate TAB] Fluticasone [Flonase] 1 spray NS QDAY #1 bottle 01/22/19 Unknown Rx Ibuprofen [Motrin] 600 mg PO Q8H PRN #30 tablet 01/22/19 Unknown Rx Ipratropium (Nf) [Atrovent] 2 puff IH Q6HR PRN #2 inha 01/22/19 Unknown Rx predniSONE [Deltasone] 40 mg PO QDAY #8 tab 01/22/19 Unknown Rx ALBUTEROL Inhaler (OR & NICU) 2 puff IH QID PRN #1 inhalation 01/23/19 Unknown Rx [ProAir HFA Inhaler] Albuterol Sulfate [Albuterol 0.63% 0.63 mg IH Q4HR PRN #2 ml 01/23/19 Unknown Rx NEBS] Ipratropium [Atrovent NEB] 0.5 mg IH Q4HR #2 ml 01/23/19 Unknown Rx Azithromycin [Zithromax Z-JESICA] 250 mg PO DAILY #6 tablet 02/26/19 Unknown Rx predniSONE [Deltasone] 20 mg PO BID #14 tablet 02/26/19 Unknown Rx metFORMIN [Glucophage] 500 mg PO BID #30 tablet 03/30/19 Unknown Rx Allergies Allergy/AdvReac Type Severity Reaction Status Date / Time Penicillins Allergy Rash Verified 03/30/19 10:45 ED Review of Systems ROS: Stated complaint: SWOLLEN FINGER LEFT HAND Other details as noted in HPI Constitutional: denies: chills, fever Respiratory: denies: cough, shortness of breath, wheezing Cardiovascular: denies: chest pain, palpitations Gastrointestinal: denies: abdominal pain, nausea, diarrhea Skin: change in hair/nails (swelling and pain to bilateral third fingers). denies: rash, lesions, change in color, pruritus Neurological: denies: headache, weakness, paresthesias Psychiatric: denies: anxiety, depression ED Past Medical Hx - Past Medical History Previous Medical History?: Yes Hx Hypertension: Yes Hx Congestive Heart Failure: Yes Hx Asthma: Yes Additional medical history: sleep apnea - Surgical History Past Surgical History?: No - Social History Smoking Status: Current Every Day Smoker - Medications Home Medications: Home Medications Medication Instructions Recorded Confirmed Last Taken Type ALBUTEROL Inhaler (OR & NICU) 2 puff IH QID PRN 04/27/13 01/16/14 04/27/13 History [Proair] ALBUTEROL NEB's [Proventil 0.083%] 2.5 mg IH TID PRN 04/27/13 01/16/14 04/27/13 History Fluticasone/Salmeterol [Advair 1 puff IH BID 04/27/13 01/16/14 04/27/13 History Diskus 250-50 mcg] Potassium Chloride [Klor-Con M10] 10 meq PO QDAY 04/27/13 01/16/14 04/27/13 History hydroCHLOROthiazide [Hctz] 12.5 mg PO QDAY 04/27/13 01/16/14 04/27/13 History Albuterol Sulfate [Proair 90 mcg IH Q4HR PRN #2 aer.pow.ba 01/22/19 Unknown Rx Respiclick] Benzonatate [Tessalon Perles] 100 mg PO Q8HR PRN #30 capsule 01/22/19 Unknown Rx Doxycycline Hyclate [Doxycycline 100 mg PO Q12HR 5 Days #10 tab 01/22/19 Unknown Rx Hyclate TAB] Fluticasone [Flonase] 1 spray NS QDAY #1 bottle 01/22/19 Unknown Rx Ibuprofen [Motrin] 600 mg PO Q8H PRN #30 tablet 01/22/19 Unknown Rx Ipratropium (Nf) [Atrovent] 2 puff IH Q6HR PRN #2 inha 01/22/19 Unknown Rx predniSONE [Deltasone] 40 mg PO QDAY #8 tab 01/22/19 Unknown Rx ALBUTEROL Inhaler (OR & NICU) 2 puff IH QID PRN #1 inhalation 01/23/19 Unknown Rx [ProAir HFA Inhaler] Albuterol Sulfate [Albuterol 0.63% 0.63 mg IH Q4HR PRN #2 ml 01/23/19 Unknown Rx NEBS] Ipratropium [Atrovent NEB] 0.5 mg IH Q4HR #2 ml 01/23/19 Unknown Rx Azithromycin [Zithromax Z-JESICA] 250 mg PO DAILY #6 tablet 02/26/19 Unknown Rx predniSONE [Deltasone] 20 mg PO BID #14 tablet 02/26/19 Unknown Rx metFORMIN [Glucophage] 500 mg PO BID #30 tablet 03/30/19 Unknown Rx ED Physical Exam - General Limitations: No Limitations General appearance: alert, in no apparent distress, obese (morbidly) - Respiratory Respiratory exam: Present: normal lung sounds bilaterally. Absent: respiratory distress - Cardiovascular Cardiovascular Exam: Present: regular rate, normal rhythm. Absent: systolic murmur, diastolic murmur, rubs, gallop - GI/Abdominal GI/Abdominal exam: Present: soft, normal bowel sounds - Neurological Exam Neurological exam: Present: alert, oriented X3 - Psychiatric Psychiatric exam: Present: normal affect, normal mood - Skin Skin exam: Present: warm, dry, intact, normal color, other (tenderness and swelling at nail is attached to palpation of right and left third distal phalanx, erythema, FROM). Absent: rash ED Course Vital Signs 06/26/19 06:58 Temperature 97.7 F Pulse Rate 96 H Respiratory 18 Rate Blood Pressure 175/100 O2 Sat by Pulse 95 Oximetry ED Medical Decision Making - Medical Decision Making Patient was examined by me. Patient is nontoxic appearing and stable. Vitals are normal. Past medical history of COPD, congestive heart failure, asthma, hypertension, and diabetes. There is tenderness and swelling at nail is attached to palpation of right and left third distal phalanx, erythema, & FROM. Both fingers appear to be paronychia. Patient reports drainage on yesterday. There are no indurated areas or palpated abscess for drainage at this time. Offered analgesics with refusal by the patient. Nursing staff informed patient of left AGAINST MEDICAL ADVICE. Critical care attestation.: If time is entered above; I have spent that time in minutes in the direct care of this critically ill patient, excluding procedure time. ED Disposition Clinical Impression: Left against medical advice Disposition: - LEFT AGAINST MED ADVICE Is pt being admited?: No Condition: Stable Referrals: PRIMARY CARE, [Primary Care Provider] - 3-5 Days
== END 2019-06-26 08:13 | disposition left against medical advice (07) ==
LOC: ED 06:53
DX: M79.89 Other specified soft tissue disorders (principal); I11.0 Hypertensive heart disease with heart failure; I50.9 Heart failure, unspecified; J45.909 Unspecified asthma, uncomplicated; G47.30 Sleep apnea, unspecified; F17.200 Nicotine dependence, unspecified, uncomplicated; Z79.899 Other long term (current) drug therapy; Z88.0 Allergy status to penicillin
CPT/HCPCS: 99281

== ENCOUNTER 2021-01-01 14:57 | Emergency (ER) | payer MEDICARE ==
[2021-01-01] MEDS ORDERED: SODIUM CHLORIDE 0.9% 500 ML 500 ML IV ONE ×2 (15:27→17:54)
--- NOTE | 2021-01-01 15:32 | Emergency Department Report ---
ED General Adult HPI - General Chief complaint: Abdominal Pain Stated complaint: ABD PAIN Time Seen by Provider: 01/01/21 15:20 Source: patient, EMS Mode of arrival: Stretcher Limitations: No Limitations - History of Present Illness Initial comments: Patient is 50 years old male with history of end-stage renal disease on hemodialysis, congestive heart failure, hypertension, COPD and obstructive sleep apnea. Patient brought to the emergency room via EMS from home for evaluation of generalized weakness and shaking. Patient also complaining of lower abdominal pain and feel that he has a mass in his abdomen. Patient stated that he has been having nausea and vomiting and unable to keep anything down. Patient stated that he was admitted at [facility] last week. Patient denied any fever or chills. Patient stated that he missed 2 dialysis so far. - Related Data Home Medications Medication Instructions Recorded Confirmed Last Taken ALBUTEROL NEB's [Proventil 0.083%] 2.5 mg IH TID PRN 04/27/13 01/16/14 04/27/13 Albuterol Mdi (or & Nicu Only) 2 puff IH QID PRN 04/27/13 01/16/14 04/27/13 [Proair] Fluticasone/Salmeterol [Advair 1 puff IH BID 04/27/13 01/16/14 04/27/13 Diskus 250-50 mcg] Potassium Chloride [Klor-Con M10] 10 meq PO QDAY 04/27/13 01/16/14 04/27/13 hydroCHLOROthiazide [Hctz] 12.5 mg PO QDAY 04/27/13 01/16/14 04/27/13 Previous Rx's Medication Instructions Recorded Last Taken Type Albuterol Sulfate [Proair 90 mcg IH Q4HR PRN #2 aer.pow.ba 01/22/19 Unknown Rx Respiclick] Benzonatate [Tessalon Perles] 100 mg PO Q8HR PRN #30 capsule 01/22/19 Unknown Rx Doxycycline Hyclate [Doxycycline 100 mg PO Q12HR 5 Days #10 tab 01/22/19 Unknown Rx Hyclate TAB] Fluticasone [Flonase] 1 spray NS QDAY #1 bottle 01/22/19 Unknown Rx Ibuprofen [Motrin] 600 mg PO Q8H PRN #30 tablet 01/22/19 Unknown Rx Ipratropium (Nf) [Atrovent] 2 puff IH Q6HR PRN #2 inha 01/22/19 Unknown Rx predniSONE [Deltasone] 40 mg PO QDAY #8 tab 01/22/19 Unknown Rx Albuterol Mdi (or & Nicu Only) 2 puff IH QID PRN #1 inhalation 01/23/19 Unknown Rx [ProAir HFA Inhaler] Albuterol Sulfate [Albuterol 0.63% 0.63 mg IH Q4HR PRN #2 ml 01/23/19 Unknown Rx NEBS] Ipratropium [Atrovent NEB] 0.5 mg IH Q4HR #2 ml 01/23/19 Unknown Rx Azithromycin [Zithromax Z-JESICA] 250 mg PO DAILY #6 tablet 02/26/19 Unknown Rx predniSONE [Deltasone] 20 mg PO BID #14 tablet 02/26/19 Unknown Rx metFORMIN [Glucophage] 500 mg PO BID #30 tablet 03/30/19 Unknown Rx Allergies Allergy/AdvReac Type Severity Reaction Status Date / Time Penicillins Allergy Rash Verified 03/30/19 10:45 ED Review of Systems ROS: Stated complaint: ABD PAIN Other details as noted in HPI Comment: All other systems reviewed and negative Constitutional: denies: chills, fever Respiratory: shortness of breath. denies: cough Cardiovascular: palpitations Gastrointestinal: abdominal pain, nausea, vomiting. denies: diarrhea, constipation, hematemesis Neurological: denies: headache, weakness, numbness, paresthesias, confusion ED Past Medical Hx - Past Medical History Hx Hypertension: Yes Hx Congestive Heart Failure: Yes Hx Deep Vein Thrombosis: Yes Hx Asthma: Yes Hx COPD: Yes Additional medical history: sleep apnea - Surgical History Past Surgical History?: No - Social History Smoking Status: Unknown if ever smoked - Medications Home Medications: Home Medications Medication Instructions Recorded Confirmed Last Taken Type ALBUTEROL NEB's [Proventil 0.083%] 2.5 mg IH TID PRN 04/27/13 01/16/14 04/27/13 History Albuterol Mdi (or & Nicu Only) 2 puff IH QID PRN 04/27/13 01/16/14 04/27/13 History [Proair] Fluticasone/Salmeterol [Advair 1 puff IH BID 04/27/13 01/16/14 04/27/13 History Diskus 250-50 mcg] Potassium Chloride [Klor-Con M10] 10 meq PO QDAY 04/27/13 01/16/14 04/27/13 History hydroCHLOROthiazide [Hctz] 12.5 mg PO QDAY 04/27/13 01/16/14 04/27/13 History Albuterol Sulfate [Proair 90 mcg IH Q4HR PRN #2 aer.pow.ba 01/22/19 Unknown Rx Respiclick] Benzonatate [Tessalon Perles] 100 mg PO Q8HR PRN #30 capsule 01/22/19 Unknown Rx Doxycycline Hyclate [Doxycycline 100 mg PO Q12HR 5 Days #10 tab 01/22/19 Unknown Rx Hyclate TAB] Fluticasone [Flonase] 1 spray NS QDAY #1 bottle 01/22/19 Unknown Rx Ibuprofen [Motrin] 600 mg PO Q8H PRN #30 tablet 01/22/19 Unknown Rx Ipratropium (Nf) [Atrovent] 2 puff IH Q6HR PRN #2 inha 01/22/19 Unknown Rx predniSONE [Deltasone] 40 mg PO QDAY #8 tab 01/22/19 Unknown Rx Albuterol Mdi (or & Nicu Only) 2 puff IH QID PRN #1 inhalation 01/23/19 Unknown Rx [ProAir HFA Inhaler] Albuterol Sulfate [Albuterol 0.63% 0.63 mg IH Q4HR PRN #2 ml 01/23/19 Unknown Rx NEBS] Ipratropium [Atrovent NEB] 0.5 mg IH Q4HR #2 ml 01/23/19 Unknown Rx Azithromycin [Zithromax Z-JESICA] 250 mg PO DAILY #6 tablet 02/26/19 Unknown Rx predniSONE [Deltasone] 20 mg PO BID #14 tablet 02/26/19 Unknown Rx metFORMIN [Glucophage] 500 mg PO BID #30 tablet 03/30/19 Unknown Rx ED Physical Exam - General Limitations: No Limitations General appearance: alert, in no apparent distress - Head Head exam: Present: atraumatic, normocephalic, normal inspection - Eye Eye exam: Present: normal appearance - ENT ENT exam: Present: mucous membranes dry - Neck Neck exam: Present: normal inspection. Absent: tenderness, meningismus - Respiratory Respiratory exam: Present: normal lung sounds bilaterally - Cardiovascular Cardiovascular Exam: Present: tachycardia - GI/Abdominal GI/Abdominal exam: Present: soft, normal bowel sounds. Absent: distended, tenderness, guarding, rebound, rigid, mass, bruit, pulsatile mass, hernia - Extremities Exam Extremities exam: Present: normal inspection, full ROM, normal capillary refill. Absent: pedal edema, calf tenderness - Back Exam Back exam: Present: normal inspection, full ROM. Absent: CVA tenderness (R), CVA tenderness (L) - Neurological Exam Neurological exam: Present: alert, oriented X3, CN II-XII intact. Absent: motor sensory deficit - Psychiatric Psychiatric exam: Present: normal mood - Skin Skin exam: Present: warm, intact, normal color ED Course Vital Signs 01/01/21 01/01/21 01/01/21 15:11 15:22 15:31 Temperature 97.7 F Pulse Rate 119 H 120 H 107 H Respiratory 18 19 17 Rate Blood Pressure 90/50 113/72 O2 Sat by Pulse 100 100 Oximetry 01/01/21 01/01/21 01/01/21 16:01 16:31 17:00 Temperature Pulse Rate 111 H Respiratory 20 Rate Blood Pressure 116/72 109/73 88/48 O2 Sat by Pulse 100 86 Oximetry 01/01/21 17:31 Temperature Pulse Rate Respiratory Rate Blood Pressure 84/44 O2 Sat by Pulse 95 Oximetry ED Medical Decision Making - Lab Data Result diagrams: 01/01/21 15:47 01/01/21 15:47 - EKG Data -: EKG Interpreted by [place] EKG shows normal: sinus rhythm Rate: tachycardia - EKG Data Interpretation: no acute changes - Radiology Data Radiology results: report reviewed - Medical Decision Making Patient is 50 years old male with history of end-stage renal disease on hemodialysis, congestive heart failure, hypertension, COPD and obstructive sleep apnea. Patient brought to the emergency room via EMS from home for evaluation of generalized weakness and shaking. Patient also complaining of lower abdominal pain and feel that he has a mass in his abdomen. Patient stated that he has been having nausea and vomiting and unable to keep anything down. Patient stated that he was admitted at [facility] last week. Patient denied any fever or chills. Patient stated that he missed 2 dialysis so far. Patient received normal saline 500 mL x 1. Patient also received morphine 2 mg and Zofran 4 mg. Patient stated that he is feeling much better. Patient is alert, oriented x3 in no acute distress. Patient is able to make sound decision. Patient stated that he wanted to sign AGAINST MEDICAL ADVICE. Patient advised that his condition may deteriorate and cause disability or . Patient acknowledged. Patient advised to return to the ER or go to another ER if his symptoms are not improved or get worse. Critical Care Time: Yes Critical care time in (mins) excluding proc time.: 30 Critical care attestation.: If time is entered above; I have spent that time in minutes in the direct care of this critically ill patient, excluding procedure time. ED Disposition Clinical Impression: Acute abdominal pain, Acute nausea with nonbilious vomiting, Hypotension Disposition: DC-07 LEFT AGAINST MED ADVICE Is pt being admited?: No Condition: Stable Instructions: Hypotension, [id number], Vomiting, Adult, Abdominal Pain, Adult, [id number] Referrals: PRIMARY CARE, [Primary Care Provider] - LIONEL
[2021-01-01 16:07] LABS: Hematocrit 31.6 % (35.5-45.6); Hemoglobin 10.4 gm/dl (11.8-15.2); Mean Corpuscular HGB Conc 33 % (32-34); Mean Corpuscular Volume 98 fl (84-94); Platelet Count 172 K/mm3 (140-440); Red Blood Count 3.21 M/mm3 (3.65-5.03); Red Cell Distribution Width 17.1 % (13.2-15.2)
[2021-01-01 16:20] LABS: INR 1.73 (0.87-1.13)
[2021-01-01 16:28] LABS: Albumin 2.5 g/dL (3.9-5); Bilirubin,Direct 0.7 mg/dL (0-0.2); Blood Urea Nitrogen 28 mg/dL (9-20); Calcium 7.4 mg/dL (8.4-10.2); Hemolysis Index 21
[2021-01-01 16:36] LABS: Alanine Aminotransferase < 5 units/L (7-56); BUN/Creatinine Ratio 2
[2021-01-01] MEDS ORDERED: ONDANSETRON 4 MG/2 ML INJ ONE (16:51)
[2021-01-01] MEDS ORDERED: MORPHINE 2 MG/1 ML INJ ONE (16:51)
[2021-01-01] MEDS ORDERED: MORPHINE 4 MG/1 ML INJ IV ONE (16:52)
[2021-01-01] MEDS ORDERED: ONDANSETRON 4 MG/2 ML INJ IV ONE (16:52)
--- NOTE | 2021-01-01 16:56 | Cat Scan Report ---
CT abdomen pelvis wo con INDICATION: MAIN. TECHNIQUE: All CT scans at this location are performed using CT dose reduction for ALARA by means of automated e xposure control. COMPARISON: None available. FINDINGS: Cavitary 1.7 cm pleural-based nodule in the right lower lobe. Marked hepatic steatosis, with no focal liver lesions. Gallbladder, spleen, pancreas, kidneys and adr enals are negative. Abdominal aorta is normal in size. No adenopathy. Pelvis Normal appendix. Urinary bladder is mostly collapsed but appears unremarkable, as do the distal urete rs. No significant bowel abnormalities. No free fluid or inflammation. No skeletal lesions. IMPRESSION: 1. Right lower lobe nodule with central cavitation, of uncertain etiology. Numerous nodules of this t ype would suggest septic emboli, but the significance of a single pleural-based nodule is uncertain. 2. Marked hepatic steatosis. 3. No acute intra-abdominal abnormalities. Signer Name: Jose Vicente MD Signed: 01/01/2021 4:52 PM Workstation Name: [id number]
[2021-01-01] MEDS ORDERED: MORPHINE 2 MG/1 ML INJ IM ONE (16:57)
[2021-01-01] MEDS ORDERED: MORPHINE 2 MG/1 ML INJ IV ONE (16:58)
--- NOTE | 2021-01-01 17:10 | XRay Report ---
CHEST 1 VIEW 01/01/2021 3:57 PM INDICATION / CLINICAL INFORMATION: SOB. COMPARISON: 03/30/2019 FINDINGS: SUPPORT DEVICES: Interval placement of left-sided dual-lumen dialysis catheter with its tip noted at the superior atrial caval junction. HEART / MEDIASTINUM: Stable. LUNGS / PLEURA: No significant pulmonary or pleural abnormality. No pneumothorax. No confluent infilt rates or pleural effusion. ADDITIONAL FINDINGS: No significant additional findings. IMPRESSION: 1. Interval placement of left-sided dual-lumen dialysis catheter with its tip in appropriate position . Otherwise, no significant interval change. Signer Name: Cecilio Dudley MD Signed: 01/01/2021 5:05 PM Workstation Name: [id number]
[2021-01-01 18:07] VITALS: BP 84/44
[2021-01-01 18:32] LABS: Total Cells Counted 100
[2021-01-01 18:33] LABS: Anisocytosis RARE; Schistocytes Few
--- NOTE | 2021-01-02 14:44 | Electrocardiograph Report ---
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
== END 2021-01-01 18:35 | disposition left against medical advice (07) ==
LOC: ED 14:57
DX: R10.30 Lower abdominal pain, unspecified (principal); R11.2 Nausea with vomiting, unspecified; I95.9 Hypotension, unspecified; I11.0 Hypertensive heart disease with heart failure; I50.9 Heart failure, unspecified; J44.9 Chronic obstructive pulmonary disease, unspecified; Z79.1 Long term (current) use of non-steroidal anti-inflammatories (NSAID); Z79.899 Other long term (current) drug therapy; Z88.0 Allergy status to penicillin
CPT/HCPCS: 36415; 71045; 74176; 80048; 80076; 83690; 85007; 85025; 85610; 93005; 96372; 96374; 99284; J2270; J2405; J7040

== ENCOUNTER 2021-03-01 18:15 | Inpatient (IN) | payer MEDICARE ==
[2021-03-01] MEDS ORDERED: CEFEPIME/NS 2 GM/100 ML 2 GM/100 ML BAG IV ONE (18:42)
--- NOTE | 2021-03-01 18:42 | Emergency Department Report ---
HPI - General Chief Complaint: Altered Mental Status Time Seen by Provider: 03/01/21 18:19 - HPI HPI: 51-year-old male with history of CHF is brought in by EMS due to altered mental status and hypoxia. According to the EMS report, the patient was discharged from [facility] yesterday where he was admitted for a CHF exacerbation. Since waking up this morning, the patient has been extremely confused and somnolent. When EMS arrived the patient was satting 88% on room air. He was confused but without any focal neurologic deficits. His initial blood pressure was 88/50 . He was placed on 5 L via NC with improvement to his oxygen saturation. The patient is extremely confused and cannot participate in the interview. Therefore further details of the HPI are severely limited. Later the patient's is at the bedside and provides further history. She says he also has a history of COPD, DM 2, and DVT/PE on warfarin. She states that he was released yesterday from the hospital and today he became very confused. She says in the past he has been known to have sundowning but today was different because he was confused all day. He has had a mild cough but no other significant symptoms to her knowledge. He is vaccinated against COVID-19. ED Past Medical Hx - Past Medical History Hx Hypertension: Yes Hx Congestive Heart Failure: Yes Hx Deep Vein Thrombosis: Yes Hx Asthma: Yes Hx COPD: Yes Additional medical history: sleep apnea - Social History Smoking Status: Unknown if ever smoked - Medications Home Medications: Home Medications Medication Instructions Recorded Confirmed Last Taken Type ALBUTEROL NEB's [Proventil 0.083%] 2.5 mg IH TID PRN 04/27/13 01/16/14 04/27/13 History Albuterol Mdi (or & Nicu Only) 2 puff IH QID PRN 04/27/13 01/16/14 04/27/13 History [Proair] Fluticasone/Salmeterol [Advair 1 puff IH BID 04/27/13 01/16/14 04/27/13 History Diskus 250-50 mcg] Potassium Chloride [Klor-Con M10] 10 meq PO QDAY 04/27/13 01/16/14 04/27/13 History hydroCHLOROthiazide [Hctz] 12.5 mg PO QDAY 0901/16/14 04/27/13 History Albuterol Sulfate [Proair 90 mcg IH Q4HR PRN #2 [id number] 01/22/19 Unknown Rx Respiclick] Benzonatate [Tessalon Perles] 100 mg PO Q8HR PRN #30 capsule 01/22/19 Unknown Rx Doxycycline Hyclate [Doxycycline 100 mg PO Q12HR 5 Days #10 tab 01/22/19 Unknown Rx Hyclate TAB] Fluticasone [Flonase] 1 spray NS QDAY #1 bottle 01/22/19 Unknown Rx Ibuprofen [Motrin] 600 mg PO Q8H PRN #30 tablet 01/22/19 Unknown Rx Ipratropium (Nf) [Atrovent] 2 puff IH Q6HR PRN #2 inha 01/22/19 Unknown Rx predniSONE [Deltasone] 40 mg PO QDAY #8 tab 01/22/19 Unknown Rx Albuterol Mdi (or & Nicu Only) 2 puff IH QID PRN #1 inhalation 01/23/19 Unknown Rx [ProAir HFA Inhaler] Albuterol Sulfate [Albuterol 0.63% 0.63 mg IH Q4HR PRN #2 ml 01/23/19 Unknown Rx NEBS] Ipratropium [Atrovent NEB] 0.5 mg IH Q4HR #2 ml 01/23/19 Unknown Rx Azithromycin [Zithromax Z-JESICA] 250 mg PO DAILY #6 tablet 02/26/19 Unknown Rx predniSONE [Deltasone] 20 mg PO BID #14 tablet 02/26/19 Unknown Rx metFORMIN [Glucophage] 500 mg PO BID #30 tablet 03/30/19 Unknown Rx Ondansetron [Zofran Odt] 4 mg PO Q8HR PRN #14 tab.rapdis 01/01/21 Unknown Rx ED Review of Systems ROS: Stated complaint: AMS Other details as noted in HPI Comment: Unobtainable due to pts medical conditions Physical Exam - Physical Exam Physical Exam: GENERAL: Well developed and well nourished. Extremely somnolent and confused but arouses to loud voice. He is oriented to self but not to place, time, or situation. HEAD: Normocephalic. No obvious signs of trauma. ENT: Dry mucous membranes. EYES: Extraocular movements are intact. Pupils are equal round and reactive to light bilaterally. Possible jaundice versus pinguecula NECK: Supple. Full ROM is intact. Trachea is midline. LUNGS: Mild respiratory distress. Tachypneic. Equal chest rise bilaterally. Lung auscultation reveals globally decreased air movement throughout with faint end expiratory wheezes. CARDIOVASCULAR: Tachycardic but with regular rhythm. No murmurs or rubs. VASCULAR: Cap refill < 2 seconds. Trace pitting edema bilaterally ABDOMEN: Abdomen is soft and nondistended. There is epigastric tenderness without guarding or rebound. SKIN: Skin is warm and dry NEURO: Patient is extremely confused and oriented only to self. He is able to follow commands. adult basic education manager II-XII grossly intact. No focal deficits. Globally weak but with grossly normal motor and sensory exam throughout. Normal speech. MUSCULOSKELETAL: No obvious deformities. No significant tenderness. BACK/SPINE: No midline tenderness or step-offs of the C/T/L spine. No costovertebral angle tenderness. - Intubation Time Out Performed: Yes Sedative: Etomidate Mg Given: 20 Paralytic: Rocuronium Mg Given: 120 Laryngoscope: fiberoptic video scope Assist Device Used: fiberoptic device ET Tube Size: 8 Tube Secured Depth (cm): 22 Tube Secured Location: lips Tube Placement Confirmation: visualized tube passing t, equal breath sounds bilat, confirmation by capnometr Patient Tolerated Procedure: well, no complications Intubation Complications: none ED Medical Decision Making - Lab Data Result diagrams: 03/01/21 19:21 03/01/21 19:21 Lab Results 03/01/21 03/01/21 03/01/21 Range/Units 19:15 19:21 19:21 WBC 12.7 H (4.5-11.0) K/mm3 RBC 2.77 L (3.65-5.03) M/mm3 Hgb 9.1 L (11.8-15.2) gm/dl Hct 27.7 L (35.5-45.6) % MCV 100 H (84-94) fl MCH 33 H (28-32) pg MCHC 33 (32-34) % RDW 18.0 H (13.2-15.2) % Plt Count 257 (140-440) K/mm3 [place] % (Auto) Application Architect Add Manual Diff Complete Total Counted 100 Seg Neuts % (Manual) 49.0 (40.0-70.0) % Lymphocytes % (Manual) 32.0 (13.4-35.0) % Monocytes % (Manual) 17.0 H (0.0-7.3) % Eosinophils % (Manual) 1.0 (0.0-4.3) % Basophils % (Manual) 1.0 (0.0-1.8) % Nucleated RBC % Not Reportable Seg Neutrophils # Man 6.2 (1.8-7.7) K/mm3 Band Neutrophils # 0.0 K/mm3 Lymphocytes # (Manual) 4.1 (1.2-5.4) K/mm3 Abs React Lymphs (Man) 0.0 K/mm3 Monocytes # (Manual) 2.2 H (0.0-0.8) K/mm3 Eosinophils # (Manual) 0.1 (0.0-0.4) K/mm3 Basophils # (Manual) 0.1 (0.0-0.1) K/mm3 Metamyelocytes # 0.0 K/mm3 Myelocytes # 0.0 K/mm3 Promyelocytes # 0.0 K/mm3 Blast Cells # 0.0 K/mm3 WBC Morphology Not Reportable Hypersegmented Neuts Not Reportable Hyposegmented Neuts Not Reportable Hypogranular Neuts Not Reportable Smudge Cells Not Reportable Toxic Granulation Not Reportable Toxic Vacuolation Not Reportable Dohle Bodies Not Reportable Pelger-Huet Anomaly Not Reportable Katherine Rods Not Reportable Platelet Estimate Not Reportable Clumped Platelets Not Reportable Plt Clumps, EDTA Not Reportable Large Platelets Not Reportable Giant Platelets Not Reportable Platelet Satelliting Not Reportable Plt Morphology Comment Not Reportable RBC Morphology Not Reportable Dimorphic RBCs Not Reportable Polychromasia Not Reportable Hypochromasia Not Reportable Poikilocytosis Not Reportable Anisocytosis Rare Microcytosis Not Reportable Macrocytosis Not Reportable Spherocytes Not Reportable Pappenheimer Bodies Not Reportable Sickle Cells Not Reportable Target Cells Not Reportable Tear Drop Cells Not Reportable Ovalocytes Not Reportable Helmet Cells Not Reportable Quinones-Carrizo Bodies Not Reportable [place] Rings Not Reportable Cooter Cells Not Reportable Bite Cells Not Reportable Crenated Cell Not Reportable Elliptocytes Not Reportable Acanthocytes (Spur) Not Reportable Rouleaux Not Reportable Hemoglobin C Crystals Not Reportable Schistocytes Few Malaria parasites Not Reportable Henry Bodies Not Reportable Hem Pathologist Commnt No PT (12.2-14.9) Sec. INR (0.87-1.13) APTT (24.2-36.6) Sec. ABG pH 7.340 (7.320-7.450) POC ABG pCO2 47.2 (32.0-48.0) mmHg POC ABG pO2 64.9 L (83-108) mmHg POC ABG HCO3 24.9 ABG O2 Saturation 93.8 (0-100) POC ABG Base Excess -1.0 ABG Hemoglobin 9.3 L (12.0-17.5) ABG Oxyhemoglobin 93.0 L (94-98) ABG Methemoglobin 0.3 (0.0-1.5) ABG Sodium 133.8 L (136.0-145.0) mmol/L ABG Potassium 4.0 (3.40-4.50) mmol/L ABG Chloride 97.0 L (98-107) mmol/L ABG Glucose 191 H (65-95) mg/dL Carboxyhemoglobin 0.5 (0.5-1.5) FiO2 % 32.0 Sodium (137-145) mmol/L Potassium (3.6-5.0) mmol/L Chloride (98-107) mmol/L Carbon Dioxide (22-30) mmol/L Anion Gap mmol/L BUN (9-20) mg/dL Creatinine (0.8-1.3) mg/dL Estimated GFR ml/min BUN/Creatinine Ratio % Glucose (75-100) mg/dL Lactic Acid (0.7-2.0) mmol/L Calcium (8.4-10.2) mg/dL Magnesium (1.7-2.3) mg/dL Total Bilirubin (0.1-1.2) mg/dL Direct Bilirubin (0-0.2) mg/dL Indirect Bilirubin mg/dL AST (5-40) units/L ALT (7-56) units/L Alkaline Phosphatase (35-129) units/L Ammonia (25-60) umol/L Troponin T 0.493 H* (0.00-0.029) ng/mL Total Protein (6.3-8.2) g/dL Albumin (3.9-5) g/dL Albumin/Globulin Ratio % Triglycerides 400 H (2-149) mg/dL Cholesterol 232 H (50-199) mg/dL LDL Cholesterol Direct 130 (50-130) mg/dL HDL Cholesterol 22 L (40-59) mg/dL Cholesterol/HDL Ratio 10.54 % Lipase (13-60) units/L Arterial Blood Glucose 191 H (65-95) mg/dL Arterial Blood Ionized Calcium 4.4 L (4.6-5.3) mg/dL Urine Color (Yellow) Urine Turbidity (Clear) Urine pH (5.0-7.0) Ur Specific [place] (1.003-1.030) Urine Protein (Negative) mg/dL Urine Glucose (UA) (Negative) mg/dL Urine Ketones (Negative) mg/dL Urine Blood (Negative) Urine Nitrite (Negative) Urine Bilirubin (Negative) Urine Urobilinogen (<2.0) mg/dL Ur Leukocyte Esterase (Negative) Urine WBC (Auto) (0.0-6.0) /HPF Urine RBC (Auto) (0.0-6.0) /HPF U Epithel Cells (Auto) (0-13.0) /HPF Urine Bacteria (Auto) (Negative) /HPF Hyaline Casts /LPF Urine Mucus /HPF Urine Yeast (Budding) /HPF Salicylates (2.8-20.0) mg/dL Urine Opiates Screen Urine Methadone Screen Acetaminophen (10.0-30.0) ug/mL Ur Barbiturates Screen Ur Phencyclidine Scrn Ur Amphetamines Screen U Benzodiazepines Scrn Urine Cocaine Screen U Marijuana (THC) Screen Drugs of Abuse Note Blood Type Antibody Screen 03/01/21 03/01/21 03/01/21 Range/Units 19:21 19:21 19:21 WBC (4.5-11.0) K/mm3 RBC (3.65-5.03) M/mm3 Hgb (11.8-15.2) gm/dl Hct (35.5-45.6) % MCV (84-94) fl MCH (28-32) pg MCHC (32-34) % RDW (13.2-15.2) % Plt Count (140-440) K/mm3 [place] % (Auto) Add Manual Diff Total Counted Seg Neuts % (Manual) (40.0-70.0) % Lymphocytes % (Manual) (13.4-35.0) % Monocytes % (Manual) (0.0-7.3) % Eosinophils % (Manual) (0.0-4.3) % Basophils % (Manual) (0.0-1.8) % Nucleated RBC % Seg Neutrophils # Man (1.8-7.7) K/mm3 Band Neutrophils # K/mm3 Lymphocytes # (Manual) (1.2-5.4) K/mm3 Abs React Lymphs (Man) K/mm3 Monocytes # (Manual) (0.0-0.8) K/mm3 Eosinophils # (Manual) (0.0-0.4) K/mm3 Basophils # (Manual) (0.0-0.1) K/mm3 Metamyelocytes # K/mm3 Myelocytes # K/mm3 Promyelocytes # K/mm3 Blast Cells # K/mm3 WBC Morphology Hypersegmented Neuts Hyposegmented Neuts Hypogranular Neuts Smudge Cells Toxic Granulation Toxic Vacuolation Dohle Bodies Pelger-Huet Anomaly Katherine Rods Platelet Estimate Clumped Platelets Plt Clumps, EDTA Large Platelets Giant Platelets Platelet Satelliting Plt Morphology Comment RBC Morphology Dimorphic RBCs Polychromasia Hypochromasia Poikilocytosis Anisocytosis Microcytosis Macrocytosis Spherocytes Pappenheimer Bodies Sickle Cells Target Cells Tear Drop Cells Ovalocytes Helmet Cells Quinones-Carrizo Bodies [place] Rings Cooter Cells Bite Cells Crenated Cell Elliptocytes Acanthocytes (Spur) Rouleaux Hemoglobin C Crystals Schistocytes Malaria parasites Henry Bodies Hem Pathologist Commnt PT 16.6 H (12.2-14.9) Sec. INR 1.28 H (0.87-1.13) APTT 33.7 (24.2-36.6) Sec. ABG pH (7.320-7.450) POC ABG pCO2 (32.0-48.0) mmHg POC ABG pO2 (83-108) mmHg POC ABG HCO3 ABG O2 Saturation (0-100) POC ABG Base Excess ABG Hemoglobin (12.0-17.5) ABG Oxyhemoglobin (94-98) ABG Methemoglobin (0.0-1.5) ABG Sodium (136.0-145.0) mmol/L ABG Potassium (3.40-4.50) mmol/L ABG Chloride (98-107) mmol/L ABG Glucose (65-95) mg/dL Carboxyhemoglobin (0.5-1.5) FiO2 % Sodium 132 L (137-145) mmol/L Potassium 4.3 (3.6-5.0) mmol/L Chloride 92.2 L (98-107) mmol/L Carbon Dioxide 23 (22-30) mmol/L Anion Gap 21 mmol/L BUN 43 H (9-20) mg/dL Creatinine 2.4 H (0.8-1.3) mg/dL Estimated GFR 35 ml/min BUN/Creatinine Ratio 18 % Glucose 190 H (75-100) mg/dL Lactic Acid 2.90 H* (0.7-2.0) mmol/L Calcium 8.8 (8.4-10.2) mg/dL Magnesium 1.80 (1.7-2.3) mg/dL Total Bilirubin 1.60 H (0.1-1.2) mg/dL Direct Bilirubin 1.2 H (0-0.2) mg/dL Indirect Bilirubin 0.4 mg/dL AST 275 H (5-40) units/L ALT 156 H (7-56) units/L Alkaline Phosphatase 282 H (35-129) units/L Ammonia (25-60) umol/L Troponin T (0.00-0.029) ng/mL Total Protein 5.8 L (6.3-8.2) g/dL Albumin 2.6 L (3.9-5) g/dL Albumin/Globulin Ratio 0.8 % Triglycerides (2-149) mg/dL Cholesterol (50-199) mg/dL LDL Cholesterol Direct (50-130) mg/dL HDL Cholesterol (40-59) mg/dL Cholesterol/HDL Ratio % Lipase 120 H (13-60) units/L Arterial Blood Glucose (65-95) mg/dL Arterial Blood Ionized Calcium (4.6-5.3) mg/dL Urine Color (Yellow) Urine Turbidity (Clear) Urine pH (5.0-7.0) Ur Specific [place] (1.003-1.030) Urine Protein (Negative) mg/dL Urine Glucose (UA) (Negative) mg/dL Urine Ketones (Negative) mg/dL Urine Blood (Negative) Urine Nitrite (Negative) Urine Bilirubin (Negative) Urine Urobilinogen (<2.0) mg/dL Ur Leukocyte Esterase (Negative) Urine WBC (Auto) (0.0-6.0) /HPF Urine RBC (Auto) (0.0-6.0) /HPF U Epithel Cells (Auto) (0-13.0) /HPF Urine Bacteria (Auto) (Negative) /HPF Hyaline Casts /LPF Urine Mucus /HPF Urine Yeast (Budding) /HPF Salicylates (2.8-20.0) mg/dL Urine Opiates Screen Urine Methadone Screen Acetaminophen (10.0-30.0) ug/mL Ur Barbiturates Screen Ur Phencyclidine Scrn Ur Amphetamines Screen U Benzodiazepines Scrn Urine Cocaine Screen U Marijuana (THC) Screen Drugs of Abuse Note Blood Type Antibody Screen 03/01/21 03/01/21 03/01/21 Range/Units 19:21 19:21 19:21 WBC (4.5-11.0) K/mm3 RBC (3.65-5.03) M/mm3 Hgb (11.8-15.2) gm/dl Hct (35.5-45.6) % MCV (84-94) fl MCH (28-32) pg MCHC (32-34) % RDW (13.2-15.2) % Plt Count (140-440) K/mm3 [place] % (Auto) Add Manual Diff Total Counted Seg Neuts % (Manual) (40.0-70.0) % Lymphocytes % (Manual) (13.4-35.0) % Monocytes % (Manual) (0.0-7.3) % Eosinophils % (Manual) (0.0-4.3) % Basophils % (Manual) (0.0-1.8) % Nucleated RBC % Seg Neutrophils # Man (1.8-7.7) K/mm3 Band Neutrophils # K/mm3 Lymphocytes # (Manual) (1.2-5.4) K/mm3 Abs React Lymphs (Man) K/mm3 Monocytes # (Manual) (0.0-0.8) K/mm3 Eosinophils # (Manual) (0.0-0.4) K/mm3 Basophils # (Manual) (0.0-0.1) K/mm3 Metamyelocytes # K/mm3 Myelocytes # K/mm3 Promyelocytes # K/mm3 Blast Cells # K/mm3 WBC Morphology Hypersegmented Neuts Hyposegmented Neuts Hypogranular Neuts Smudge Cells Toxic Granulation Toxic Vacuolation Dohle Bodies Pelger-Huet Anomaly Katherine Rods Platelet Estimate Clumped Platelets Plt Clumps, EDTA Large Platelets Giant Platelets Platelet Satelliting Plt Morphology Comment RBC Morphology Dimorphic RBCs Polychromasia Hypochromasia Poikilocytosis Anisocytosis Microcytosis Macrocytosis Spherocytes Pappenheimer Bodies Sickle Cells Target Cells Tear Drop Cells Ovalocytes Helmet Cells Quinones-Carrizo Bodies [place] Rings Dusty Cells Bite Cells Crenated Cell Elliptocytes Acanthocytes (Spur) Rouleaux Hemoglobin C Crystals Schistocytes Malaria parasites Henry Bodies Hem Pathologist Commnt PT (12.2-14.9) Sec. INR (0.87-1.13) APTT (24.2-36.6) Sec. ABG pH (7.320-7.450) POC ABG pCO2 (32.0-48.0) mmHg POC ABG pO2 (83-108) mmHg POC ABG HCO3 ABG O2 Saturation (0-100) POC ABG Base Excess ABG Hemoglobin (12.0-17.5) ABG Oxyhemoglobin (94-98) ABG Methemoglobin (0.0-1.5) ABG Sodium (136.0-145.0) mmol/L ABG Potassium (3.40-4.50) mmol/L ABG Chloride (98-107) mmol/L ABG Glucose (65-95) mg/dL Carboxyhemoglobin (0.5-1.5) FiO2 % Sodium (137-145) mmol/L Potassium (3.6-5.0) mmol/L Chloride (98-107) mmol/L Carbon Dioxide (22-30) mmol/L Anion Gap mmol/L BUN (9-20) mg/dL Creatinine (0.8-1.3) mg/dL Estimated GFR ml/min BUN/Creatinine Ratio % Glucose (75-100) mg/dL Lactic Acid (0.7-2.0) mmol/L Calcium (8.4-10.2) mg/dL Magnesium (1.7-2.3) mg/dL Total Bilirubin (0.1-1.2) mg/dL Direct Bilirubin (0-0.2) mg/dL Indirect Bilirubin mg/dL AST (5-40) units/L ALT (7-56) units/L Alkaline Phosphatase (35-129) units/L Ammonia 71.0 H (25-60) umol/L Troponin T (0.00-0.029) ng/mL Total Protein (6.3-8.2) g/dL Albumin (3.9-5) g/dL Albumin/Globulin Ratio % Triglycerides (2-149) mg/dL Cholesterol (50-199) mg/dL LDL Cholesterol Direct (50-130) mg/dL HDL Cholesterol (40-59) mg/dL Cholesterol/HDL Ratio % Lipase (13-60) units/L Arterial Blood Glucose (65-95) mg/dL Arterial Blood Ionized Calcium (4.6-5.3) mg/dL Urine Color (Yellow) Urine Turbidity (Clear) Urine pH (5.0-7.0) Ur Specific [place] (1.003-1.030) Urine Protein (Negative) mg/dL Urine Glucose (UA) (Negative) mg/dL Urine Ketones (Negative) mg/dL Urine Blood (Negative) Urine Nitrite (Negative) Urine Bilirubin (Negative) Urine Urobilinogen (<2.0) mg/dL Ur Leukocyte Esterase (Negative) Urine WBC (Auto) (0.0-6.0) /HPF Urine RBC (Auto) (0.0-6.0) /HPF U Epithel Cells (Auto) (0-13.0) /HPF Urine Bacteria (Auto) (Negative) /HPF Hyaline Casts /LPF Urine Mucus /HPF Urine Yeast (Budding) /HPF Salicylates < 0.3 L (2.8-20.0) mg/dL Urine Opiates Screen Urine Methadone Screen Acetaminophen 5.0 L (10.0-30.0) ug/mL Ur Barbiturates Screen Ur Phencyclidine Scrn Ur Amphetamines Screen U Benzodiazepines Scrn Urine Cocaine Screen U Marijuana (THC) Screen Drugs of Abuse Note Blood Type Antibody Screen 03/01/21 03/01/21 03/01/21 Range/Units 19:21 20:55 20:55 WBC (4.5-11.0) K/mm3 RBC (3.65-5.03) M/mm3 Hgb (11.8-15.2) gm/dl Hct (35.5-45.6) % MCV (84-94) fl MCH (28-32) pg MCHC (32-34) % RDW (13.2-15.2) % Plt Count (140-440) K/mm3 [place] % (Auto) Add Manual Diff Total Counted Seg Neuts % (Manual) (40.0-70.0) % Lymphocytes % (Manual) (13.4-35.0) % Monocytes % (Manual) (0.0-7.3) % Eosinophils % (Manual) (0.0-4.3) % Basophils % (Manual) (0.0-1.8) % Nucleated RBC % Seg Neutrophils # Man (1.8-7.7) K/mm3 Band Neutrophils # K/mm3 Lymphocytes # (Manual) (1.2-5.4) K/mm3 Abs React Lymphs (Man) K/mm3 Monocytes # (Manual) (0.0-0.8) K/mm3 Eosinophils # (Manual) (0.0-0.4) K/mm3 Basophils # (Manual) (0.0-0.1) K/mm3 Metamyelocytes # K/mm3 Myelocytes # K/mm3 Promyelocytes # K/mm3 Blast Cells # K/mm3 WBC Morphology Hypersegmented Neuts Hyposegmented Neuts Hypogranular Neuts Smudge Cells Toxic Granulation Toxic Vacuolation Dohle Bodies Pelger-Huet Anomaly Katherine Rods Platelet Estimate Clumped Platelets Plt Clumps, EDTA Large Platelets Giant Platelets Platelet Satelliting Plt Morphology Comment RBC Morphology Dimorphic RBCs Polychromasia Hypochromasia Poikilocytosis Anisocytosis Microcytosis Macrocytosis Spherocytes Pappenheimer Bodies Sickle Cells Target Cells Tear Drop Cells Ovalocytes Helmet Cells Quinones-Carrizo Bodies [place] Rings Dusty Cells Bite Cells Crenated Cell Elliptocytes Acanthocytes (Spur) Rouleaux Hemoglobin C Crystals Schistocytes Malaria parasites Herny Bodies Hem Pathologist Commnt PT (12.2-14.9) Sec. INR (0.87-1.13) APTT (24.2-36.6) Sec. ABG pH (7.320-7.450) POC ABG pCO2 (32.0-48.0) mmHg POC ABG pO2 (83-108) mmHg POC ABG HCO3 ABG O2 Saturation (0-100) POC ABG Base Excess ABG Hemoglobin (12.0-17.5) ABG Oxyhemoglobin (94-98) ABG Methemoglobin (0.0-1.5) ABG Sodium (136.0-145.0) mmol/L ABG Potassium (3.40-4.50) mmol/L ABG Chloride (98-107) mmol/L ABG Glucose (65-95) mg/dL Carboxyhemoglobin (0.5-1.5) FiO2 % Sodium (137-145) mmol/L Potassium (3.6-5.0) mmol/L Chloride (98-107) mmol/L Carbon Dioxide (22-30) mmol/L Anion Gap mmol/L BUN (9-20) mg/dL Creatinine (0.8-1.3) mg/dL Estimated GFR ml/min BUN/Creatinine Ratio % Glucose (75-100) mg/dL Lactic Acid 4.30 H* (0.7-2.0) mmol/L Calcium (8.4-10.2) mg/dL Magnesium (1.7-2.3) mg/dL Total Bilirubin (0.1-1.2) mg/dL Direct Bilirubin (0-0.2) mg/dL Indirect Bilirubin mg/dL AST (5-40) units/L ALT (7-56) units/L Alkaline Phosphatase (35-129) units/L Ammonia (25-60) umol/L Troponin T 0.484 H* (0.00-0.029) ng/mL Total Protein (6.3-8.2) g/dL Albumin (3.9-5) g/dL Albumin/Globulin Ratio % Triglycerides (2-149) mg/dL Cholesterol (50-199) mg/dL LDL Cholesterol Direct (50-130) mg/dL HDL Cholesterol (40-59) mg/dL Cholesterol/HDL Ratio % Lipase (13-60) units/L Arterial Blood Glucose (65-95) mg/dL Arterial Blood Ionized Calcium (4.6-5.3) mg/dL Urine Color (Yellow) Urine Turbidity (Clear) Urine pH (5.0-7.0) Ur Specific [place] (1.003-1.030) Urine Protein (Negative) mg/dL Urine Glucose (UA) (Negative) mg/dL Urine Ketones (Negative) mg/dL Urine Blood (Negative) Urine Nitrite (Negative) Urine Bilirubin (Negative) Urine Urobilinogen (<2.0) mg/dL Ur Leukocyte Esterase (Negative) Urine WBC (Auto) (0.0-6.0) /HPF Urine RBC (Auto) (0.0-6.0) /HPF U Epithel Cells (Auto) (0-13.0) /HPF Urine Bacteria (Auto) (Negative) /HPF Hyaline Casts /LPF Urine Mucus /HPF Urine Yeast (Budding) /HPF Salicylates (2.8-20.0) mg/dL Urine Opiates Screen Urine Methadone Screen Acetaminophen (10.0-30.0) ug/mL Ur Barbiturates Screen Ur Phencyclidine Scrn Ur Amphetamines Screen U Benzodiazepines Scrn Urine Cocaine Screen U Marijuana (THC) Screen Drugs of Abuse Note Blood Type O POSITIVE Antibody Screen Negative 03/01/21 03/01/21 Range/Units 21:40 21:40 WBC (4.5-11.0) K/mm3 RBC (3.65-5.03) M/mm3 Hgb (11.8-15.2) gm/dl Hct (35.5-45.6) % MCV (84-94) fl MCH (28-32) pg MCHC (32-34) % RDW (13.2-15.2) % Plt Count (140-440) K/mm3 [place] % (Auto) Add Manual Diff Total Counted Seg Neuts % (Manual) (40.0-70.0) % Lymphocytes % (Manual) (13.4-35.0) % Monocytes % (Manual) (0.0-7.3) % Eosinophils % (Manual) (0.0-4.3) % Basophils % (Manual) (0.0-1.8) % Nucleated RBC % Seg Neutrophils # Man (1.8-7.7) K/mm3 Band Neutrophils # K/mm3 Lymphocytes # (Manual) (1.2-5.4) K/mm3 Abs React Lymphs (Man) K/mm3 Monocytes # (Manual) (0.0-0.8) K/mm3 Eosinophils # (Manual) (0.0-0.4) K/mm3 Basophils # (Manual) (0.0-0.1) K/mm3 Metamyelocytes # K/mm3 Myelocytes # K/mm3 Promyelocytes # K/mm3 Blast Cells # K/mm3 WBC Morphology Hypersegmented Neuts Hyposegmented Neuts Hypogranular Neuts Smudge Cells Toxic Granulation Toxic Vacuolation Dohle Bodies Pelger-Huet Anomaly Katherine Rods Platelet Estimate Clumped Platelets Plt Clumps, EDTA Large Platelets Giant Platelets Platelet Satelliting Plt Morphology Comment RBC Morphology Dimorphic RBCs Polychromasia Hypochromasia Poikilocytosis Anisocytosis Microcytosis Macrocytosis Spherocytes Pappenheimer Bodies Sickle Cells Target Cells Tear Drop Cells Ovalocytes Helmet Cells Quinones-Carrizo Bodies [place] Rings Dusty Cells Bite Cells Crenated Cell Elliptocytes Acanthocytes (Spur) Rouleaux Hemoglobin C Crystals Schistocytes Malaria parasites Henry Bodies Hem Pathologist Commnt PT (12.2-14.9) Sec. INR (0.87-1.13) APTT (24.2-36.6) Sec. ABG pH (7.320-7.450) POC ABG pCO2 (32.0-48.0) mmHg POC ABG pO2 (83-108) mmHg POC ABG HCO3 ABG O2 Saturation (0-100) POC ABG Base Excess ABG Hemoglobin (12.0-17.5) ABG Oxyhemoglobin (94-98) ABG Methemoglobin (0.0-1.5) ABG Sodium (136.0-145.0) mmol/L ABG Potassium (3.40-4.50) mmol/L ABG Chloride (98-107) mmol/L ABG Glucose (65-95) mg/dL Carboxyhemoglobin (0.5-1.5) FiO2 % Sodium (137-145) mmol/L Potassium (3.6-5.0) mmol/L Chloride (98-107) mmol/L Carbon Dioxide (22-30) mmol/L Anion Gap mmol/L BUN (9-20) mg/dL Creatinine (0.8-1.3) mg/dL Estimated GFR ml/min BUN/Creatinine Ratio % Glucose (75-100) mg/dL Lactic Acid (0.7-2.0) mmol/L Calcium (8.4-10.2) mg/dL Magnesium (1.7-2.3) mg/dL Total Bilirubin (0.1-1.2) mg/dL Direct Bilirubin (0-0.2) mg/dL Indirect Bilirubin mg/dL AST (5-40) units/L ALT (7-56) units/L Alkaline Phosphatase (35-129) units/L Ammonia (25-60) umol/L Troponin T (0.00-0.029) ng/mL Total Protein (6.3-8.2) g/dL Albumin (3.9-5) g/dL Albumin/Globulin Ratio % Triglycerides (2-149) mg/dL Cholesterol (50-199) mg/dL LDL Cholesterol Direct (50-130) mg/dL HDL Cholesterol (40-59) mg/dL Cholesterol/HDL Ratio % Lipase (13-60) units/L Arterial Blood Glucose (65-95) mg/dL Arterial Blood Ionized Calcium (4.6-5.3) mg/dL Urine Color [place] (Yellow) Urine Turbidity Slightly-cloudy (Clear) Urine pH 5.0 (5.0-7.0) Ur Specific [place] 1.018 (1.003-1.030) Urine Protein 30 mg/dl (Negative) mg/dL Urine Glucose (UA) Neg (Negative) mg/dL Urine Ketones Neg (Negative) mg/dL Urine Blood Sm (Negative) Urine Nitrite Neg (Negative) Urine Bilirubin Neg (Negative) Urine Urobilinogen 4.0 (<2.0) mg/dL Ur Leukocyte Esterase Neg (Negative) Urine WBC (Auto) 5.0 (0.0-6.0) /HPF Urine RBC (Auto) 4.0 (0.0-6.0) /HPF U Epithel Cells (Auto) 1.0 (0-13.0) /HPF Urine Bacteria (Auto) 1+ (Negative) /HPF Hyaline Casts 14 /LPF Urine Mucus Few /HPF Urine Yeast (Budding) Few /HPF Salicylates (2.8-20.0) mg/dL Urine Opiates Screen Positive Urine Methadone Screen Negative Acetaminophen (10.0-30.0) ug/mL Ur Barbiturates Screen Negative Ur Phencyclidine Scrn Negative Ur Amphetamines Screen Negative U Benzodiazepines Scrn Negative Urine Cocaine Screen Negative U Marijuana (THC) Screen Negative Drugs of Abuse Note Disclamer Blood Type Antibody Screen - EKG Data -: EKG Interpreted by Oh - EKG Data 03/02/21 02:40 Sinus tachycardia. Left axis deviation. Left anterior fascicular block. No ectopy. LVH pattern with strain. No significant ST elevation. 03/02/21 02:41 - Radiology Data CHEST 1 VIEW 03/01/2021 6:02 PM INDICATION / CLINICAL INFORMATION: hypoxia, sepsis. COMPARISON: None available. FINDINGS: SUPPORT DEVICES: Vas-Cath is been removed HEART / MEDIASTINUM: No significant abnormality. LUNGS / PLEURA: Mild increase interstitial prominence in the lower lungs No pneumothorax. Signer Name: Jasper Argueta MD Signed: 03/01/2021 6:10 PM Workstation Name: [id number] CT HEAD WITHOUT CONTRAST INDICATION / CLINICAL INFORMATION: AMS. TECHNIQUE: All CT scans at this location are performed using CT dose reduction for ALARA by means of automated exposure control. COMPARISON: None available. FINDINGS: No acute intracranial hemorrhage. Ventricles are normal in size without midline héctor ft or mass effect. No extra-axial fluid collection is seen. Visualized sinuses are clear. ADDITIONAL FINDINGS: None. IMPRESSION: 1. No acute intracranial abnormality. Signer Name: Jasper Argueta MD Signed: 03/01/2021 6:39 PM Workstation Name: [id number] CT CHEST, ABDOMEN, AND PELVIS WITHOUT CONTRAST INDICATION / CLINICAL INFORMATION: sepsis, possible choledo. TECHNIQUE: Axial CT images were obtained through the chest, abdomen, and pelvis without contrast. All CT scans at this location are performed using CT dose reduction for ALARA by means of automated exposure control. COMPARISON: None available. FINDINGS: CHEST: ET tube is in satisfactory position. There is a nodular opacity within the right upper lung measuring 8 mm. Scattered opacities are seen within the lower lungs with some atelectasis also noted. Additional nodular densities in the right lower lung as well. Heart is enlarged. No pericardial effusion. NG tube extends within the stomach. ABDOMEN/PELVIS: Fatty infiltration the liver. Spleen, adrenal glands, pancreas, gallbladder appears normal. A few mildly prominent periportal nodes are seen. No renal or ureteral stones. No hydronephrosis. Vilchis catheter is seen within the bladder. No free fluid is seen in the pelvis. Degenerative changes seen throughout spine IMPRESSION: 1. Several pulmonary nodules are seen within the right lung measuring 6 to 8 mm in size. Increased interstitial prominence and opacities in the lower lungs as well. Findings could represent atelectasis and/or infiltrate. Pulmonary nodule follow-up is recommended as described above. 2. No acute findings are seen within the abdomen or pelvis. Fatty infiltration of the liver. - Medical Decision Making 51 old male with complex medical history brought in by EMS due to confusion and altered mental status today. He was also found to be hypoxic with an oxygen saturation of 88% on room air as well as hypotensive with a blood pressure of 88/50. Since arriving here in the emergency department he is noted to have a heart rate in the 120s with a blood pressure of 111/60. He is satting 95% on 5 L via nasal cannula. He is noted to have a temperature of 100.9. He is extremely confused and cannot answer questions appropriately. However he does intermittently follow commands and he has a nonfocal neurologic exam. He has full range of motion at the neck and no meningismus. He has very dry mucous membranes. Lung auscultation reveals globally decreased air movement throughout with faint end expiratory wheezes heard. Given that the patient is febrile and was hypotensive and hypoxic, ice suspect that the patient may have sepsis. Sepsis order set was initiated with full set of labs and cultures. Given my suspicion for possible healthcare associated pneumonia I will administer broad- spectrum IV cefepime, azithromycin, and vancomycin. We will give duo nebs and continue to monitor the patient closely. With further information from the we found out that the patient takes warfarin for prior PEs. Work-up is still pending Patient's labs are resulted and reveal several significant abnormalities including white blood cell count of 12.8, hemoglobin of 9.1. He has evidence of acute renal failure with creatinine of 2.4 and BUN of 43. Potassium is within normal limits. Lactate is elevated at 2.9. He has transaminitis with AST of 275, ALT of 156, and T bili of 1.2. His ammonia is elevated at 71. Troponin is elevated at 0.493. Chest x-ray shows possible bibasilar infiltrates. CT of the head shows no acute abnormalities. On repeat assessment at 8:30 PM, the patient is noted to be satting in the low 90s on 5 L via nasal cannula. His mentation is improved slightly but he is still extremely confused and unable to answer questions appropriately. The patient's is at the bedside and I spoke to her regarding the patient's diagnosis of severe sepsis. I explained that the treatment of severe sepsis requires copious IV fluids but that this may affect the patient's respiratory status given his CHF and could result in pulmonary edema which would require intubation and placement on a mechanical ventilator. She states that she does not want him to get copious IV fluids because that risk is too high. At 8:15 PM, I spoke to Dr. Kim of cardiology who reviewed the patient's EKG stated that it does not qualify as a STEMI but shows an LVH pattern with strain. Given all the other findings he feels that the elevated troponin is likely secondary to reduced renal clearance and hypotension. Given the transaminitis and hyperbilirubinemia and the possibility of cholecystitis/choledocholithiasis versus other intra-abdominal infection, I have ordered IV Flagyl. At 8:41 PM I spoke with Dr. Ramírez of general surgery given that I have a suspicion for possible cholecystitis versus choledocholithiasis given the patient's epigastric tenderness on exam. CT of the chest/abdomen/pelvis is still pending. She stated her agreement with my work-up including an right upper quadrant ultrasound and recommends that I consult GI if the patient's scans show evidence of choledocholithiasis. She agrees with the antibiotics I h ave ordered. Repeat assessment again at 9 PM, the patient is noted to be satting 87 to 89% on 10 L via nasal cannula. Given that the patient has evidence of severe sepsis and persistent hypoxia as well as possible intra-abdominal infection and severely altered mental status, I feel that the appropriate step would be to intubate him place him on a mechanical ventilator so that he can receive 30 m L/kg of IV fluids for his sepsis based on his calculated ideal body weight of 72 kg. This was discussed with the patient's who expressed understanding and agreement. The patient was successfully intubated and placed on mechanical ventilator. He will go to CT scan soon as possible. CT of the chest/abdomen/pelvis reveals lower lobe infiltrates and upper lobe nodules consistent with possible pneumonia. There are no acute intra-abdominal abnormalities identified. At 9:45 PM I spoke with Dr. Pearl the on-call hospitalist regarding the case and accepts the patient for admission and will assume care. Shortly thereafter I spoke to the roof painter regarding the case and she accepts the patient to the ICU. Critical Care Time: Yes Critical care time in (mins) excluding proc time.: 90 Critical care attestation.: If time is entered above; I have spent that time in minutes in the direct care of this critically ill patient, excluding procedure time. Critical care time was spent in the evaluation, assessment, work-up, and management of pneumonia and hypoxic respiratory failure requiring intubation and mechanical ventilation as well as severe sepsis requiring consultation with specialist and multiple reevaluations and reassessments. ED Disposition Clinical Impression: Severe sepsis, Elevated troponin, Hyperammonemia, Transaminitis, Hyperbilirubinemia, Acute renal failure, Shock liver, Encephalopathy, CHF (congestive heart failure), DM2 (diabetes mellitus, type 2) Pneumonia Qualifiers: Aspiration pneumonia type: unspecified Laterality: unspecified laterality Lung location: unspecified part of lung Respiratory failure Qualifiers: Chronicity: acute Respiratory failure complication: hypoxia Qualified Code(s): J96.01 - Acute respiratory failure with hypoxia Disposition: 09 OP ADMIT IP TO THIS HOSP Is pt being admited?: Yes Condition: Critical
[2021-03-01] MEDS ORDERED: IPRATROPIUM 0.02% NEBU 2.5 ML IH ONE (18:45)
[2021-03-01] MEDS ORDERED: ALBUTEROL 2.5 MG/3 ML NEBU IH ONE (18:45)
[2021-03-01] MEDS ORDERED: methylPREDNISolone Sod Succinate 125 MG/2 ML INJ IV ONE (18:46)
--- NOTE | 2021-03-01 19:15 | XRay Report ---
CHEST 1 VIEW 03/01/2021 6:02 PM INDICATION / CLINICAL INFORMATION: hypoxia, sepsis. COMPARISON: None available. FINDINGS: SUPPORT DEVICES: Vas-Cath is been removed HEART / MEDIASTINUM: No significant abnormality. LUNGS / PLEURA: Mild increase interstitial prominence in the lower lungs No pneumothorax. Signer Name: Jasper Argueta MD Signed: 03/01/2021 7:10 PM Workstation Name: [id number]
[2021-03-01] MEDS ORDERED: VANCOMYCIN 2,000 MG in SODIUM CHLORIDE 0.9% 500 ML 500 ML IV ONE (19:30)
--- NOTE | 2021-03-01 19:43 | Cat Scan Report ---
CT HEAD WITHOUT CONTRAST INDICATION / CLINICAL INFORMATION: AMS. TECHNIQUE: All CT scans at this location are performed using CT dose reduction for ALARA by means of automated e xposure control. COMPARISON: None available. FINDINGS: No acute intracranial hemorrhage. Ventricles are normal in size without midline shift or mass effect. No extra-axial fluid collection is seen. Visualized sinuses are clear. ADDITIONAL FINDINGS: None. IMPRESSION: 1. No acute intracranial abnormality. Signer Name: Jasper Argueta MD Signed: 03/01/2021 7:39 PM Workstation Name: [id number]
[2021-03-01] MEDS ORDERED: AZITHROMYCIN/NS 500 MG/250 ML 500 MG/250 ML BAG IV ONE (19:58)
[2021-03-01 20:12] LABS: Albumin 2.6 g/dL (3.9-5); Bilirubin,Direct 1.2 mg/dL (0-0.2); Calcium 8.8 mg/dL (8.4-10.2)
[2021-03-01 20:14] LABS: Hematocrit 27.7 % (35.5-45.6); Hemoglobin 9.1 gm/dl (11.8-15.2); Mean Corpuscular HGB Conc 33 % (32-34); Mean Corpuscular Volume 100 fl (84-94); Platelet Count 257 K/mm3 (140-440); Red Blood Count 2.77 M/mm3 (3.65-5.03)
[2021-03-01] MEDS ORDERED: ACETAMINOPHEN 500 MG TAB PO ONE (20:19)
[2021-03-01] MEDS ORDERED: metroNIDAZOLE/NS 500 MG/100 ML 500 MG/100 ML BAG IV ONE (20:21)
[2021-03-01] MEDS ORDERED: SODIUM CHLORIDE 0.9% 1000 ML 1,000 ML IV ONE ×3 (20:23→21:27)
[2021-03-01 20:32] LABS: INR 1.28 (0.87-1.13)
[2021-03-01 20:33] LABS: Partial Thromboplastin Time 33.7 Sec. (24.2-36.6)
[2021-03-01 20:34] LABS: Chol/HDL Ratio 10.54 %
[2021-03-01] MEDS ORDERED: ETOMIDATE 20 MG/10 ML INJ IV ONE ×2 (20:54→21:10)
[2021-03-01] MEDS ORDERED: SUCCINYLCHOLINE CHLORIDE 200 MG/10 ML INJ MDV ONE (20:54)
[2021-03-01] MEDS ORDERED: ROCURONIUM 50 MG/5 ML INJ IV ONE ×2 (21:10→21:11)
[2021-03-01] MEDS ORDERED: SUCCINYLCHOLINE CHLORIDE 200 MG/10 ML INJ MDV IV ONE (21:10)
[2021-03-01] MEDS ORDERED: ACETAMINOPHEN 650 MG RECT SUPP PR ONE (21:15)
[2021-03-01] MEDS ORDERED: fentaNYL DRIP Premix 2,000 MCG/100 ML BAG IV ONE (21:32)
[2021-03-01 21:47] LABS: Anisocytosis RARE; Schistocytes Few; Total Cells Counted 100
[2021-03-01] MEDS: fentaNYL DRIP Premix 2,000 MCG/100 ML BAG IV SCH (22:00)
[2021-03-01 22:09] LABS: Bacteria,Urine 1+ /HPF (Negative); Bilirubin,Urine NEG (Negative); Blood,Urine SM (Negative); Color,Urine Amber (Yellow); Hyaline Casts,Urine 14 /LPF; Mucus,Urine FEW /HPF
[2021-03-01 22:13] LABS: Amphetamine Screen,Urine Negative; Benzodiazepines Screen,Urine Negative; Cannabinoid Screen,Urine Negative; Cocaine Screen,Urine Negative; Methadone Screen,Urine Negative
--- NOTE | 2021-03-01 22:28 | Cat Scan Report ---
CT CHEST, ABDOMEN, AND PELVIS WITHOUT CONTRAST INDICATION / CLINICAL INFORMATION: sepsis, possible choledo. TECHNIQUE: Axial CT images were obtained through the chest, abdomen, and pelvis without contrast. All CT scans a t this location are performed using CT dose reduction for ALARA by means of automated exposure contro l. COMPARISON: None available. FINDINGS: CHEST: ET tube is in satisfactory position. There is a nodular opacity within the right upper lung me asuring 8 mm. Scattered opacities are seen within the lower lungs with some atelectasis also noted. A dditional nodular densities in the right lower lung as well. Heart is enlarged. No pericardial effusi on. NG tube extends within the stomach. ABDOMEN/PELVIS: Fatty infiltration the liver. Spleen, adrenal glands, pancreas, gallbladder appears n ormal. A few mildly prominent periportal nodes are seen. No renal or ureteral stones. No hydronephros is. Vilchis catheter is seen within the bladder. No free fluid is seen in the pelvis. Degenerative valente ges seen throughout spine IMPRESSION: 1. Several pulmonary nodules are seen within the right lung measuring 6 to 8 mm in size. Increased in terstitial prominence and opacities in the lower lungs as well. Findings could represent atelectasis and/or infiltrate. Pulmonary nodule follow-up is recommended as described above. 2. No acute findings are seen within the abdomen or pelvis. Fatty infiltration of the liver. INCIDENTAL PULMONARY NODULE RECOMMENDATION RECOMMENDATION: Solid Nodule size 6-8 mm -- Multiple - Low Risk Patient: CT at 3-6 months, then consider CT at 18-24 months - High Risk Patient: CT at 3-6 months, then CT at 18-24 month Note These recommendations do not apply to lung cancer screening, patients with immunosuppression, o r patients with known primary cancer. Note Newly detected indeterminate nodule in persons 35 years of age or older. Persons under the age of 35 should not receive follow-up unless there is a known primary cancer. Note Perifissural Nodule is a fissure-attached/subpleural, homogeneous, solid nodule that has smooth margins and an oval, lentiform, or triangular shape. They represent about 20% of nodules detected in lung cancer screening, are invariably benign, and do not require follow-up. Nodules 10 mm or larger (or those with suspicious features) will continue to be managed based on the size criteria. Low Risk Patient = minimal or absent history of smoking and of other known risk factors. High Risk Patient = history of smoking or of other known risk factors. Nodule dimensions are average of long and short axes, rounded to the nearest millimeter. Based on 2017 Fleischner Society Guidelines found in Radiology 2017 284:228-243. https://doi.[email or web address] https://www.ncbi.nlm.nih.gov/pmc/articles/FYO8416060/ Signer Name: Jasper Argueta MD Signed: 03/01/2021 10:24 PM Workstation Name: [id number]
[2021-03-01 22:37] LABS: Opiate Screen,Urine Positive
--- NOTE | 2021-03-01 23:09 | XRay Report ---
CHEST 1 VIEW 03/01/2021 11:00 PM INDICATION / CLINICAL INFORMATION: Status post intubation. COMPARISON: One view of the chest from earlier today. FINDINGS: SUPPORT DEVICES: An ET tube has been placed with the tip located 5.2 cm above the nidia. An NG tube has been placed with the tip projecting over the proximal gastric body. HEART / MEDIASTINUM: Mild enlargement of the cardiac silhouette. No other significant abnormality. LUNGS / PLEURA: No significant pulmonary abnormality. No significant pleural effusion. No pneumothora x. ADDITIONAL FINDINGS: No significant additional findings. IMPRESSION: 1. Mild cardiac nightly without other acute findings. 2. Satisfactory positioning of the ET and NG tubes. Signer Name: Constantin Reyes MD Signed: 03/01/2021 11:05 PM Workstation Name: [id number]
[2021-03-01] MEDS: metroNIDAZOLE/NS 500 MG/100 ML 500 MG/100 ML BAG IV ONE (23:33)
[2021-03-02] MEDS ORDERED: AZITHROMYCIN/NS 500 MG/250 ML 500 MG/250 ML BAG IV ONE (00:15)
[2021-03-02] MEDS ORDERED: ACETAMINOPHEN 650 MG RECT SUPP PR PRN (00:18)
[2021-03-02] MEDS ORDERED: DEXTROSE 50% IN WATER (25GM) 50 ML SYRINGE IV PRN ×2 (00:18→11:38)
[2021-03-02] MEDS ORDERED: MORPHINE 2 MG/1 ML INJ IV PRN (00:18)
[2021-03-02] MEDS ORDERED: MAGNESIUM HYDROXIDE (MOM) ORAL LIQD UDC PO PRN (00:18)
[2021-03-02] MEDS ORDERED: MORPHINE 4 MG/1 ML INJ IV PRN (00:18)
[2021-03-02] MEDS ORDERED: SODIUM CHLORIDE 0.9% 1000 ML 1,000 ML IV SCH (00:30)
[2021-03-02] MEDS: metroNIDAZOLE/NS 500 MG/100 ML 500 MG/100 ML BAG IV ONE (00:38)
--- NOTE | 2021-03-02 00:38 | History and Physical Report ---
History of Present Illness Date of examination: 03/02/21 Date of admission: 03/01/21 23:26 Chief complaint: Altered mental status Hypoxia History of present illness: 51-year-old -[place] male with known history of COPD, CHF, diabetes mellitus, DVT and hypertension was brought into the emergency room today by EMS for altered mental status and hypoxia. According to EMS patient was discharged from [facility] about 24 hours ago having been treated for CHF exacerbation. Patient was found to be altered upon waking up this morning and on arrival of EMS oxygen saturation was about 88% on room air, blood pressure was said to be about 88/50 mmHg. Was subsequently placed on 5 L of oxygen by nasal cannula with improvement in his oxygen saturation. According to who was by the bedside patient was having some mild cough which was nonproductive. He has had no fever or chills. There has been no nausea or vomiting or abdominal pain. Patient has been fully vaccinated against COVID-19. Work-up in the emergency room today, labs reveals leukocytosis of 12.7, hemoglobin of 9.1 and hematocrit of 27.7, sodium of 132, lactic acid of 2.90. Liver enzymes were abnormally elevated, troponin was also bumped at 0.493. CT of the chest shows findings concerning for atelectasis and or infiltrate, CT of the head was unremarkable. Patient was in severe respiratory distress upon arrival in the emergency room and subsequently intubated. Patient currently being admitted for mainly severe sepsis, respiratory failure, pneumonia and ALPHONSO. Past History Past Medical History: COPD, diabetes, DVT, heart failure, hypertension, other (Asthma,Sleep Apnea) Past Surgical History: No surgical history Social history: no significant social history Family history: no significant family history Medications and Allergies Allergies Allergy/AdvReac Type Severity Reaction Status Date / Time Penicillins Allergy Rash Verified 03/30/19 10:45 Home Medications Medication Instructions Recorded Confirmed Last Taken Type ALBUTEROL NEB's [Proventil 0.083%] 2.5 mg IH TID PRN 04/27/13 01/16/14 04/27/13 History Albuterol Mdi (or & Nicu Only) 2 puff IH QID PRN 04/27/13 01/16/14 04/27/13 History [Proair] Fluticasone/Salmeterol [Advair 1 puff IH BID 04/27/13 01/16/14 04/27/13 History Diskus 250-50 mcg] Potassium Chloride [Klor-Con M10] 10 meq PO QDAY 04/27/13 01/16/14 04/27/13 History hydroCHLOROthiazide [Hctz] 12.5 mg PO QDAY 04/27/13 01/16/14 04/27/13 History Albuterol Sulfate [Proair 90 mcg IH Q4HR PRN #2 aer.pow.ba 01/22/19 Unknown Rx Respiclick] Benzonatate [Tessalon Perles] 100 mg PO Q8HR PRN #30 capsule 01/22/19 Unknown Rx Doxycycline Hyclate [Doxycycline 100 mg PO Q12HR 5 Days #10 tab 01/22/19 Unknown Rx Hyclate TAB] Fluticasone [Flonase] 1 spray NS QDAY #1 bottle 01/22/19 Unknown Rx Ibuprofen [Motrin] 600 mg PO Q8H PRN #30 tablet 01/22/19 Unknown Rx Ipratropium (Nf) [Atrovent] 2 puff IH Q6HR PRN #2 inha 01/22/19 Unknown Rx predniSONE [Deltasone] 40 mg PO QDAY #8 tab 01/22/19 Unknown Rx Albuterol Mdi (or & Nicu Only) 2 puff IH QID PRN #1 inhalation 01/23/19 Unknown Rx [ProAir HFA Inhaler] Albuterol Sulfate [Albuterol 0.63% 0.63 mg IH Q4HR PRN #2 ml 01/23/19 Unknown Rx NEBS] Ipratropium [Atrovent NEB] 0.5 mg IH Q4HR #2 ml 01/23/19 Unknown Rx Azithromycin [Zithromax Z-JESICA] 250 mg PO DAILY #6 tablet 02/26/19 Unknown Rx predniSONE [Deltasone] 20 mg PO BID #14 tablet 02/26/19 Unknown Rx metFORMIN [Glucophage] 500 mg PO BID #30 tablet 03/30/19 Unknown Rx Ondansetron [Zofran Odt] 4 mg PO Q8HR PRN #14 tab.rapdis 01/01/21 Unknown Rx Active Meds: Active Medications Azithromycin (Zithromax/Ns) 500 mg in 250 mls @ 250 mls/hr IV ONCE ONE; Protocol Stop: 03/02/21 01:14 Metronidazole (Flagyl 500 Mg/100 Ml) 500 mg in 100 mls @ 200 mls/hr IV ONCE ONE; Protocol Stop: 03/02/21 00:44 Last Admin: 03/01/21 23:33 Dose: 200 mls/hr Documented by: Review of Systems ROS unobtainable: due to endotracheal tube Exam - Constitutional Vitals: Temp Pulse Resp BP Pulse Ox 99.9 F H 113 H 22 122/77 100 03/01/21 19:38 03/02/21 00:00 03/02/21 00:00 03/02/21 00:00 03/01/21 22:46 General appearance: Present: well-nourished, obese, other (Intubated and sedated) - EENT Eyes: Present: PERRL, EOM intact, scleral icterus ENT: hearing intact, clear oral mucosa, dentition normal - Neck Neck: Present: supple, normal ROM - Respiratory Respiratory effort: normal Respiratory: bilateral: diminished - Cardiovascular Rhythm: regular Heart Sounds: Present: S1 & S2. Absent: gallop, systolic murmur, diastolic murmur, rub, click - Extremities Extremities: no ischemia, pulses intact, pulses symmetrical, No edema, normal temperature, normal color, Full ROM Peripheral Pulses: within normal limits - Abdominal General gastrointestinal: Present: soft, non-tender, non-distended, normal bowel sounds, mass - Integumentary Integumentary: Present: clear, warm, dry, normal turgor. Absent: rash - Musculoskeletal Musculoskeletal: strength equal bilaterally - Psychiatric Psychiatric: appropriate mood/affect, intact judgment & insight, memory intact, cooperative - Neurologic Neurologic: CNII-XII intact, no focal deficits, moves all extremities HEART Score - HEART Score Troponin: Troponin T 0.484 ng/mL (0.00-0.029) H* 03/01/21 20:55 Results - Labs CBC & Chem 7: 03/01/21 19:21 03/01/21 19:21 Labs: Abnormal lab results 03/01/21 03/01/21 03/01/21 Range/Units 19:15 19:21 19:21 WBC 12.7 H (4.5-11.0) K/mm3 RBC 2.77 L (3.65-5.03) M/mm3 Hgb 9.1 L (11.8-15.2) gm/dl Hct 27.7 L (35.5-45.6) % MCV 100 H (84-94) fl MCH 33 H (28-32) pg RDW 18.0 H (13.2-15.2) % Monocytes % (Manual) 17.0 H (0.0-7.3) % Monocytes # (Manual) 2.2 H (0.0-0.8) K/mm3 PT (12.2-14.9) Sec. INR (0.87-1.13) ABG pH (7.320-7.450) POC ABG pO2 64.9 L (83-108) mmHg ABG Hemoglobin 9.3 L (12.0-17.5) ABG Oxyhemoglobin 93.0 L (94-98) ABG Sodium 133.8 L (136.0-145.0) mmol/L ABG Chloride 97.0 L (98-107) mmol/L ABG Glucose 191 H (65-95) mg/dL Carboxyhemoglobin (0.5-1.5) Sodium (137-145) mmol/L Chloride (98-107) mmol/L BUN (9-20) mg/dL Creatinine (0.8-1.3) mg/dL Glucose (75-100) mg/dL Lactic Acid (0.7-2.0) mmol/L Total Bilirubin (0.1-1.2) mg/dL Direct Bilirubin (0-0.2) mg/dL AST (5-40) units/L ALT (7-56) units/L Alkaline Phosphatase (35-129) units/L Ammonia (25-60) umol/L Troponin T 0.493 H* (0.00-0.029) ng/mL Total Protein (6.3-8.2) g/dL Albumin (3.9-5) g/dL Triglycerides 400 H (2-149) mg/dL Cholesterol 232 H (50-199) mg/dL HDL Cholesterol 22 L (40-59) mg/dL Lipase (13-60) units/L Arterial Blood Glucose 191 H (65-95) mg/dL Arterial Blood Ionized Calcium 4.4 L (4.6-5.3) mg/dL Salicylates (2.8-20.0) mg/dL Acetaminophen (10.0-30.0) ug/mL 03/01/21 03/01/21 03/01/21 Range/Units 19:21 19:21 19:21 WBC (4.5-11.0) K/mm3 RBC (3.65-5.03) M/mm3 Hgb (11.8-15.2) gm/dl Hct (35.5-45.6) % MCV (84-94) fl MCH (28-32) pg RDW (13.2-15.2) % Monocytes % (Manual) (0.0-7.3) % Monocytes # (Manual) (0.0-0.8) K/mm3 PT 16.6 H (12.2-14.9) Sec. INR 1.28 H (0.87-1.13) ABG pH (7.320-7.450) POC ABG pO2 (83-108) mmHg ABG Hemoglobin (12.0-17.5) ABG Oxyhemoglobin (94-98) ABG Sodium (136.0-145.0) mmol/L ABG Chloride (98-107) mmol/L ABG Glucose (65-95) mg/dL Carboxyhemoglobin (0.5-1.5) Sodium 132 L (137-145) mmol/L Chloride 92.2 L (98-107) mmol/L BUN 43 H (9-20) mg/dL Creatinine 2.4 H (0.8-1.3) mg/dL Glucose 190 H (75-100) mg/dL Lactic Acid 2.90 H* (0.7-2.0) mmol/L Total Bilirubin 1.60 H (0.1-1.2) mg/dL Direct Bilirubin 1.2 H (0-0.2) mg/dL AST 275 H (5-40) units/L ALT 156 H (7-56) units/L Alkaline Phosphatase 282 H (35-129) units/L Ammonia (25-60) umol/L Troponin T (0.00-0.029) ng/mL Total Protein 5.8 L (6.3-8.2) g/dL Albumin 2.6 L (3.9-5) g/dL Triglycerides (2-149) mg/dL Cholesterol (50-199) mg/dL HDL Cholesterol (40-59) mg/dL Lipase 120 H (13-60) units/L Arterial Blood Glucose (65-95) mg/dL Arterial Blood Ionized Calcium (4.6-5.3) mg/dL Salicylates (2.8-20.0) mg/dL Acetaminophen (10.0-30.0) ug/mL 03/01/21 03/01/21 03/01/21 Range/Units 19:21 19:21 19:21 WBC (4.5-11.0) K/mm3 RBC (3.65-5.03) M/mm3 Hgb (11.8-15.2) gm/dl Hct (35.5-45.6) % MCV (84-94) fl MCH (28-32) pg RDW (13.2-15.2) % Monocytes % (Manual) (0.0-7.3) % Monocytes # (Manual) (0.0-0.8) K/mm3 PT (12.2-14.9) Sec. INR (0.87-1.13) ABG pH (7.320-7.450) POC ABG pO2 (83-108) mmHg ABG Hemoglobin (12.0-17.5) ABG Oxyhemoglobin (94-98) ABG Sodium (136.0-145.0) mmol/L ABG Chloride (98-107) mmol/L ABG Glucose (65-95) mg/dL Carboxyhemoglobin (0.5-1.5) Sodium (137-145) mmol/L Chloride (98-107) mmol/L BUN (9-20) mg/dL Creatinine (0.8-1.3) mg/dL Glucose (75-100) mg/dL Lactic Acid (0.7-2.0) mmol/L Total Bilirubin (0.1-1.2) mg/dL Direct Bilirubin (0-0.2) mg/dL AST (5-40) units/L ALT (7-56) units/L Alkaline Phosphatase (35-129) units/L Ammonia 71.0 H (25-60) umol/L Troponin T (0.00-0.029) ng/mL Total Protein (6.3-8.2) g/dL Albumin (3.9-5) g/dL Triglycerides (2-149) mg/dL Cholesterol (50-199) mg/dL HDL Cholesterol (40-59) mg/dL Lipase (13-60) units/L Arterial Blood Glucose (65-95) mg/dL Arterial Blood Ionized Calcium (4.6-5.3) mg/dL Salicylates < 0.3 L (2.8-20.0) mg/dL Acetaminophen 5.0 L (10.0-30.0) ug/mL 03/01/21 03/01/21 03/02/21 Range/Units 20:55 20:55 00:01 WBC (4.5-11.0) K/mm3 RBC (3.65-5.03) M/mm3 Hgb (11.8-15.2) gm/dl Hct (35.5-45.6) % MCV (84-94) fl MCH (28-32) pg RDW (13.2-15.2) % Monocytes % (Manual) (0.0-7.3) % Monocytes # (Manual) (0.0-0.8) K/mm3 PT (12.2-14.9) Sec. INR (0.87-1.13) ABG pH 7.234 L (7.320-7.450) POC ABG pO2 240.5 H (83-108) mmHg ABG Hemoglobin 9.3 L (12.0-17.5) ABG Oxyhemoglobin 99.1 H (94-98) ABG Sodium 135.3 L (136.0-145.0) mmol/L ABG Chloride (98-107) mmol/L ABG Glucose 286 H (65-95) mg/dL Carboxyhemoglobin 0.3 L (0.5-1.5) Sodium (137-145) mmol/L Chloride (98-107) mmol/L BUN (9-20) mg/dL Creatinine (0.8-1.3) mg/dL Glucose (75-100) mg/dL Lactic Acid 4.30 H* (0.7-2.0) mmol/L Total Bilirubin (0.1-1.2) mg/dL Direct Bilirubin (0-0.2) mg/dL AST (5-40) units/L ALT (7-56) units/L Alkaline Phosphatase (35-129) units/L Ammonia (25-60) umol/L Troponin T 0.484 H* (0.00-0.029) ng/mL Total Protein (6.3-8.2) g/dL Albumin (3.9-5) g/dL Triglycerides (2-149) mg/dL Cholesterol (50-199) mg/dL HDL Cholesterol (40-59) mg/dL Lipase (13-60) units/L Arterial Blood Glucose 286 H (65-95) mg/dL Arterial Blood Ionized Calcium (4.6-5.3) mg/dL Salicylates (2.8-20.0) mg/dL Acetaminophen (10.0-30.0) ug/mL Assessment and Plan - Patient Problems (1) Pneumonia Current Visit: Yes Status: Acute Qualifiers: Aspiration pneumonia type: unspecified Laterality: unspecified laterality Lung location: unspecified part of lung Plan to address problem: Patient placed on empiric IV antibiotics In view of his recent hospital visit, he has been placed on antibiotics to cover hospital acquired pneumonia. (2) Respiratory failure Current Visit: Yes Status: Acute Qualifiers: Chronicity: acute Respiratory failure complication: hypoxia Qualified Code(s): J96.01 - Acute respiratory failure with hypoxia Plan to address problem: Possibly secondary to the underlying pneumonia and history of CHF. Patient currently intubated and sedated. Consult placed to the public health specialist for evaluation. (3) Acute renal failure Current Visit: Yes Status: Acute Plan to address problem: We will place consult to nephrology for evaluation and recommendation. Patient had a recent increase of his BUN and creatinine sometime in December 2020. (4) CHF (congestive heart failure) Current Visit: Yes Status: Acute Plan to address problem: Patient was recently discharged from [facility] for CHF exacerbation. Attempts will be made to retrieve medical records. We will schedule for echocardiogram. We will request cardiology evaluation. (5) DM2 (diabetes mellitus, type 2) Current Visit: Yes Status: Acute Plan to address problem: We will monitor Accu-Cheks closely. (6) Severe sepsis Current Visit: Yes Status: Acute Plan to address problem: Patient currently on IV fluid and empiric IV antibiotics. (7) Encephalopathy Current Visit: Yes Status: Acute Plan to address problem: Possibly secondary to the underlying pneumonia and hyperammonemia. (8) Transaminitis Current Visit: Yes Status: Acute Plan to address problem: Etiology unclear. Ultrasound of right upper quadrant to be requested Consult placed to gastroenterology for evaluation. (9) Elevated troponin Current Visit: Yes Status: Acute Plan to address problem: Possibly troponin leak, severe sepsis Cardiology evaluation requested. Biometrics Technician on-call already informed by the ER physician. (10) DVT prophylaxis Current Visit: Yes Status: Acute Plan to address problem: Patient placed on subcutaneous heparin. (11) Full code status Current Visit: Yes Status: Acute Plan to address problem: Patient is a full code.
[2021-03-02] MEDS ORDERED: AZTREONAM/NS 1 GM/50 ML 1 GM/50 ML VIAL IV SCH (01:00)
[2021-03-02] MEDS ORDERED: VANCOMYCIN PHARMACY TO DOSE IV SCH (01:00)
[2021-03-02] MEDS ORDERED: CEFEPIME/NS 2 GM/100 ML 2 GM/100 ML BAG IV SCH (01:00)
[2021-03-02] MEDS: fentaNYL DRIP Premix 2,000 MCG/100 ML BAG IV SCH ×3 (04:33→18:12)
--- NOTE | 2021-03-02 05:03 | Ultrasound Report ---
ULTRASOUND ABDOMEN, LIMITED (RIGHT UPPER QUADRANT) INDICATION: Assess for cholelithiasis/choledocholithiasis. COMPARISON: CT abdomen and pelvis without contrast from 03/01/2021 FINDINGS: Pancreas: Visualized portion shows no significant abnormality. Liver: Normal in size with generalized steatosis. No other significant abnormality. Gallbladder: No significant abnormality. Sonographic Richardson's sign: Not performed. Bile ducts: No significant abnormality. Common Bile Duct measures 3.4 mm. Free fluid: None. Additional Findings: None. IMPRESSION: 1. No sonographic evidence of cholelithiasis, cholecystitis or choledocholithiasis. Signer Name: Constantin Reyes MD Signed: 03/02/2021 4:59 AM Workstation Name: [id number]
[2021-03-02] MEDS: AZTREONAM/NS 1 GM/50 ML 1 GM/50 ML VIAL IV SCH ×3 (06:00→22:32)
[2021-03-02] MEDS ORDERED: INSULIN LISPRO 100 UNIT/ML SUB-Q SCH (07:30)
[2021-03-02] MEDS ORDERED: SODIUM BICARB 8.4% 50 MEQ/50 ML SYRINGE IV ONE (10:00)
[2021-03-02] MEDS: SODIUM BICARBONATE 150 MEQ in WATER FOR INJECTION (PF) 1,000 ML IV SCH ×3 (10:02→23:25)
--- NOTE | 2021-03-02 10:46 | Consultation ---
History of Present Illness Consult date: 03/02/21 Requesting physician: CADE HAYS Consult reason: elevated troponin History of present illness: 51-year-old male with history of acute on chronic renal sufficiency history of acute on chronic respiratory hypoxemia was at [facility] discharge within the last 48 hours patient has had multiple admissions there has normal LV function done in December 2020. Patient has a history of elevated LFTs. Patient being treated pneumonia. Was discharged found to have hypoxemia placed on 5 L without response with altered mental status patient was intubated. Patient is being treated for sepsis. This history was obtained by the chart. Spoke with patient's who states been in the hospital for the last 6 weeks was revealed patient center. Was able to walk with oxygen. Denies any cardiac work-up in the past. Patient's states that he was told he had CHF but was discharged with Lasix Baseline creatinine on discharge was 1.3 Past History Past Medical History: COPD, diabetes, DVT, heart failure, hypertension, renal failure (Acute on chronic renal sufficiency), other (Asthma,Sleep Apnea) Past Surgical History: No surgical history Social history: no significant social history Family history: no significant family history Medications and Allergies Allergies Allergy/AdvReac Type Severity Reaction Status Date / Time Penicillins Allergy Rash Verified 03/30/19 10:45 Home Medications Medication Instructions Recorded Confirmed Last Taken Type ALBUTEROL NEB's [Proventil 0.083%] 2.5 mg IH TID PRN 04/27/13 01/16/14 04/27/13 History Albuterol Mdi (or & Nicu Only) 2 puff IH QID PRN 04/27/13 01/16/14 04/27/13 History [Proair] Fluticasone/Salmeterol [Advair 1 puff IH BID 04/27/13 01/16/14 04/27/13 History Diskus 250-50 mcg] Potassium Chloride [Klor-Con M10] 10 meq PO QDAY 04/27/13 01/16/14 04/27/13 History hydroCHLOROthiazide [Hctz] 12.5 mg PO QDAY 04/27/13 01/16/14 04/27/13 History Albuterol Sulfate [Proair 90 mcg IH Q4HR PRN #2 aer.pow.ba 01/22/19 Unknown Rx Respiclick] Benzonatate [Tessalon Perles] 100 mg PO Q8HR PRN #30 capsule 01/22/19 Unknown Rx Doxycycline Hyclate [Doxycycline 100 mg PO Q12HR 5 Days #10 tab 01/22/19 Unknown Rx Hyclate TAB] Fluticasone [Flonase] 1 spray NS QDAY #1 bottle 01/22/19 Unknown Rx Ibuprofen [Motrin] 600 mg PO Q8H PRN #30 tablet 01/22/19 Unknown Rx Ipratropium (Nf) [Atrovent] 2 puff IH Q6HR PRN #2 inha 01/22/19 Unknown Rx predniSONE [Deltasone] 40 mg PO QDAY #8 tab 01/22/19 Unknown Rx Albuterol Mdi (or & Nicu Only) 2 puff IH QID PRN #1 inhalation 01/23/19 Unknown Rx [ProAir HFA Inhaler] Albuterol Sulfate [Albuterol 0.63% 0.63 mg IH Q4HR PRN #2 ml 01/23/19 Unknown Rx NEBS] Ipratropium [Atrovent NEB] 0.5 mg IH Q4HR #2 ml 01/23/19 Unknown Rx Azithromycin [Zithromax Z-JESICA] 250 mg PO DAILY #6 tablet 02/26/19 Unknown Rx predniSONE [Deltasone] 20 mg PO BID #14 tablet 02/26/19 Unknown Rx metFORMIN [Glucophage] 500 mg PO BID #30 tablet 03/30/19 Unknown Rx Ondansetron [Zofran Odt] 4 mg PO Q8HR PRN #14 tab.rapdis 01/01/21 Unknown Rx Active Meds: Active Medications Acetaminophen (Acetaminophen 650 Mg Rect Supp) 650 mg GA Q6H PRN PRN Reason: Pain MILD(1-3)/Fever >100.5/VALDES Dextrose (Dextrose 50% In Water (25gm) 50 Ml Syringe) 0 ml IV Q30MIN PRN; Protocol PRN Reason: Hypoglycemia Fentanyl (Fentanyl 100 Mcg/2 Ml Inj) 50 mcg IV Q10MIN PRN PRN Reason: ANALGESIA Heparin Sodium (Porcine) (Heparin 5,000 Unit/1 Ml Vial) 5,000 unit SUB-Q Q8HR KYLE Levofloxacin/Dextrose (Levaquin 750mg/150ml) 750 mg in 150 mls @ 100 mls/hr IV Q48HR KYLE Last Admin: 03/02/21 10:02 Dose: 100 mls/hr Documented by: Aztreonam (Azactam/Ns 1 Gm/50 Ml) 1 gm in 50 mls @ 50 mls/hr IV Q6HR [facility]; Protocol Last Admin: 03/02/21 06:00 Dose: Not Given Documented by: Fentanyl Citrate (Fentanyl Drip Premix) 2,000 mcg in 100 mls @ 6.55 mls/hr IV TITR KYLE; Protocol Last Admin: 03/02/21 04:33 Dose: 2 mcg/kg/hr, 13.1 mls/hr Documented by: Vancomycin HCl 2,000 mg/ (Sodium Chloride) 540 mls @ 250 mls/hr IV Q24H KYLE Sodium Bicarbonate 150 meq/ (Sterile Water) 1,150 mls @ 200 mls/hr IV DIRECT KYLE Stop: 03/06/21 15:44 Last Admin: 03/02/21 10:02 Dose: 200 mls/hr Documented by: Insulin Human Lispro (Insulin Lispro 100 Unit/Ml) 0 unit SUB-Q ACHS [facility]; Protocol Last Admin: 03/02/21 06:12 Dose: 8 unit Documented by: Magnesium Hydroxide (Magnesium Hydroxide (Mom) Oral Liqd Udc) 30 ml PO Q4H PRN PRN Reason: Constipation Midodrine (Midodrine 5 Mg Tab) 10 mg PO TID@0800,1200,1600 [facility] Morphine Sulfate (Morphine 2 Mg/1 Ml Inj) 2 mg IV Q4H PRN PRN Reason: Pain, Moderate (4-6) Morphine Sulfate (Morphine 4 Mg/1 Ml Inj) 4 mg IV Q4H PRN PRN Reason: Pain , Severe (7-10) Sodium Chloride (Sodium Chloride 0.9% 10 Ml Flush Syringe) 10 ml IV BID [facility] Sodium Chloride (Sodium Chloride 0.9% 10 Ml Flush Syringe) 10 ml IV PRN PRN PRN Reason: LINE FLUSH Review of Systems ROS unobtainable: due to endotracheal tube Physical Examination Vital Signs Temp Pulse Resp BP Pulse Ox 100.9 F H 122 H 16 111/60 95 03/01/21 18:38 03/01/21 18:38 03/01/21 18:38 03/01/21 18:38 03/01/21 18:38 General appearance: no acute distress, well-nourished HEENT: Positive: PERRL, Mucus Membranes Moist Neck: Positive: neck supple, trachea midline Cardiac: Positive: Reg Rate and Rhythm, S1/S2. Negative: Audible Murmur Lungs: Positive: Decreased Breath Sounds Neuro: Positive: Other (sedated) Abdomen: Positive: Soft, Active Bowel Sounds. Negative: Tender, Distended Male genitourinary: Positive: normal Skin: Positive: Clear Incision: Cardiac Cath Site Musculoskeletal: No Pain, Normal Range of Motion Extremities: Present: normal. Absent: edema Results 03/01/21 19:21 03/01/21 19:21 Cardiac Enzymes 03/01/21 Range/Units 19: AST 275 H (5-40) units/L Coagulation 03/01/21 Range/Units 19:21 PT 16.6 H (12.2-14.9) Sec. INR 1.28 H (0.87-1.13) APTT 33.7 (24.2-36.6) Sec. Lipids 03/01/21 Range/Units 19:21 Triglycerides 400 H (2-149) mg/dL Cholesterol 232 H (50-199) mg/dL HDL Cholesterol 22 L (40-59) mg/dL Cholesterol/HDL Ratio 10.54 % CBC 03/01/21 Range/Units 19:21 WBC 12.7 H (4.5-11.0) K/mm3 RBC 2.77 L (3.65-5.03) M/mm3 Hgb 9.1 L (11.8-15.2) gm/dl Hct 27.7 L (35.5-45.6) % Plt Count 257 (140-440) K/mm3 Comprehensive Metabolic Panel 03/01/21 Range/Units 19:21 Sodium 132 L (137-145) mmol/L Potassium 4.3 (3.6-5.0) mmol/L Chloride 92.2 L (98-107) mmol/L Carbon Dioxide 23 (22-30) mmol/L BUN 43 H (9-20) mg/dL Creatinine 2.4 H (0.8-1.3) mg/dL Glucose 190 H (75-100) mg/dL Calcium 8.8 (8.4-10.2) mg/dL Direct Bilirubin 1.2 H (0-0.2) mg/dL Indirect Bilirubin 0.4 mg/dL AST 275 H (5-40) units/L ALT 156 H (7-56) units/L Alkaline Phosphatase 282 H (35-129) units/L Total Protein 5.8 L (6.3-8.2) g/dL Albumin 2.6 L (3.9-5) g/dL - Imaging and Cardiology Echo: pending EKG interpretations - Telemetry EKG Rhythm: Sinus Rhythm (Sinus rhythm LVH nonspecific ST-T's) Assessment and Plan 51-year-old male with acute on chronic respiratory failure acute on chronic renal sufficiency was recently discharged from the hospital as per the history of heart failure but but has a normal LV function echocardiogram done in December with Lasix found to be hypoxemia with acute renal failure and pneumonia mook alli for sepsis on IV fluids and high-dose antibiotics. Is on a ventilator for respiratory failure. But abnormal troponin repeat echocardiogram for LV function. Continue aspirin and statin medication - Patient Problems (1) NSTEMI (non-ST elevated myocardial infarction) Current Visit: Yes Status: Acute (2) Acute renal failure Current Visit: Yes Status: Acute Qualifiers: Acute renal failure type: with acute tubular necrosis Qualified Code(s): N17.0 - Acute kidney failure with tubular necrosis (3) Encephalopathy Current Visit: Yes Status: Acute (4) Pneumonia Current Visit: Yes Status: Acute Qualifiers: Aspiration pneumonia type: unspecified Laterality: unspecified laterality Lung location: unspecified part of lung (5) Respiratory failure Current Visit: Yes Status: Acute Qualifiers: Chronicity: acute Respiratory failure complication: hypoxia Qualified Code(s): J96.01 - Acute respiratory failure with hypoxia (6) Severe sepsis Current Visit: Yes Status: Acute (7) Transaminitis Current Visit: Yes Status: Acute
[2021-03-02] MEDS ORDERED: SODIUM CHLORIDE 0.9% 1000 ML 1,000 ML IV ONE (11:00)
[2021-03-02 11:20] LABS: Calcium 7.9 mg/dL (8.4-10.2)
--- NOTE | 2021-03-02 12:49 | Ultrasound Report ---
ULTRASOUND RENAL INDICATION / CLINICAL INFORMATION: ALPHONSO. COMPARISON: None available. FINDINGS: RIGHT KIDNEY: Length = 12.3 cm. - Echogenicity: Normal. - Cortical Thickness: Normal. - Hydronephrosis: None. - Cyst or mass: No significant abnormality. - Stones: None seen. LEFT KIDNEY: Length = 10.9 cm. - Echogenicity: Normal. - Cortical Thickness: Normal. - Hydronephrosis: None. - Cyst or mass: No significant abnormality. - Stones: None seen. URINARY BLADDER: Vilchis catheter FREE FLUID: None. ADDITIONAL FINDINGS: None. IMPRESSION: 1. No significant abnormality. Signer Name: Jasper Argueta MD Signed: 03/02/2021 12:45 PM Workstation Name: [id number]
--- NOTE | 2021-03-02 13:26 | Consultation ---
History of Present Illness Consult date: 03/02/21 Reason for consult: abdominal pain Chief complaint: abd pain, jaundice, elevated LFTs - History of present illness History of present illness: 51-year-old male with past medical history CHF, COPD, DM 2, and DVT/PE on warfarin. Pt presented to the emergency room with altered mental status, hypoxia. Patient is currently intubated and sedated and all the history is obtained from the chart. Work-up in the ER revealed elevated LFTs and per ER physician's report the patient appeared jaundiced and therefore surgery was consulted. Past History Past Medical History: COPD, diabetes, DVT, heart failure, hypertension, renal failure (Acute on chronic renal sufficiency), other (Asthma,Sleep Apnea) Past Surgical History: No surgical history Social history: no significant social history Family history: no significant family history Medications and Allergies Allergies Allergy/AdvReac Type Severity Reaction Status Date / Time Penicillins Allergy Rash Verified 03/30/19 10:45 Home Medications Medication Instructions Recorded Confirmed Last Taken Type ALBUTEROL NEB's [Proventil 0.083%] 2.5 mg IH TID PRN 04/27/13 01/16/14 04/27/13 History Albuterol Mdi (or & Nicu Only) 2 puff IH QID PRN 04/27/13 01/16/14 04/27/13 History [Proair] Fluticasone/Salmeterol [Advair 1 puff IH BID 04/27/13 01/16/14 04/27/13 History Diskus 250-50 mcg] Potassium Chloride [Klor-Con M10] 10 meq PO QDAY 04/27/13 01/16/14 04/27/13 History hydroCHLOROthiazide [Hctz] 12.5 mg PO QDAY 04/27/13 01/16/14 04/27/13 History Albuterol Sulfate [Proair 90 mcg IH Q4HR PRN #2 aer.[id number] 01/22/19 Unknown Rx Respiclick] Benzonatate [Tessalon Perles] 100 mg PO Q8HR PRN #30 capsule 01/22/19 Unknown Rx Doxycycline Hyclate [Doxycycline 100 mg PO Q12HR 5 Days #10 tab 01/22/19 Unknown Rx Hyclate TAB] Fluticasone [Flonase] 1 spray NS QDAY #1 bottle 01/22/19 Unknown Rx Ibuprofen [Motrin] 600 mg PO Q8H PRN #30 tablet 01/22/19 Unknown Rx Ipratropium (Nf) [Atrovent] 2 puff IH Q6HR PRN #2 inha 01/22/19 Unknown Rx predniSONE [Deltasone] 40 mg PO QDAY #8 tab 01/22/19 Unknown Rx Albuterol Mdi (or & Nicu Only) 2 puff IH QID PRN #1 inhalation 01/23/19 Unknown Rx [ProAir HFA Inhaler] Albuterol Sulfate [Albuterol 0.63% 0.63 mg IH Q4HR PRN #2 ml 01/23/19 Unknown Rx NEBS] Ipratropium [Atrovent NEB] 0.5 mg IH Q4HR #2 ml 01/23/19 Unknown Rx Azithromycin [Zithromax Z-JESICA] 250 mg PO DAILY #6 tablet 02/26/19 Unknown Rx predniSONE [Deltasone] 20 mg PO BID #14 tablet 02/26/19 Unknown Rx metFORMIN [Glucophage] 500 mg PO BID #30 tablet 03/30/19 Unknown Rx Ondansetron [Zofran Odt] 4 mg PO Q8HR PRN #14 tab.rapdis 01/01/21 Unknown Rx Active Meds: Active Medications Acetaminophen (Acetaminophen 650 Mg Rect Supp) 650 mg KS Q6H PRN PRN Reason: Pain MILD(1-3)/Fever >100.5/[place] Aspirin (Aspirin Ec 81 Mg Tab) 81 mg PO QDAY [facility] Dextrose (Dextrose 50% In Water (25gm) 50 Ml Syringe) 50 ml IV Q30MIN PRN; Protocol PRN Reason: Hypoglycemia Fentanyl (Fentanyl 100 Mcg/2 Ml Inj) 50 mcg IV Q10MIN PRN PRN Reason: ANALGESIA Heparin Sodium (Porcine) (Heparin 5,000 Unit/1 Ml Vial) 5,000 unit SUB-Q Q8HR KYLE Levofloxacin/Dextrose (Levaquin 750mg/150ml) 750 mg in 150 mls @ 100 mls/hr IV Q48HR [facility] Last Admin: 03/02/21 10:02 Dose: 100 mls/hr Documented by: Aztreonam (Azactam/Ns 1 Gm/50 Ml) 1 gm in 50 mls @ 50 mls/hr IV Q6HR [facility]; Protocol Last Admin: 03/02/21 12:33 Dose: 50 mls/hr Documented by: Fentanyl Citrate (Fentanyl Drip Premix) 2,000 mcg in 100 mls @ 6.55 mls/hr IV TITR KYLE; Protocol Last Admin: 03/02/21 04:33 Dose: 2 mcg/kg/hr, 13.1 mls/hr Documented by: Vancomycin HCl 2,000 mg/ (Sodium Chloride) 540 mls @ 250 mls/hr IV Q24H KYLE Sodium Bicarbonate 150 meq/ (Sterile Water) 1,150 mls @ 200 mls/hr IV DIRECT KYLE Stop: 03/06/21 15:44 Last Admin: 03/02/21 10:02 Dose: 200 mls/hr Documented by: Sodium Chloride (Nacl 0.9% 1000 Ml) 1,000 mls @ 125 mls/hr IV ONCE ONE Stop: 03/02/21 18:59 Insulin Human Regular 100 (units/ Sodium Chloride) 100 mls @ 1 mls/hr IV TITR KYLE; Protocol Magnesium Hydroxide (Magnesium Hydroxide (Mom) Oral Liqd Udc) 30 ml PO Q4H PRN PRN Reason: Constipation Midodrine (Midodrine 5 Mg Tab) 10 mg PO TID@0800,1200,1600 KYLE Morphine Sulfate (Morphine 2 Mg/1 Ml Inj) 2 mg IV Q4H PRN PRN Reason: Pain, Moderate (4-6) Morphine Sulfate (Morphine 4 Mg/1 Ml Inj) 4 mg IV Q4H PRN PRN Reason: Pain , Severe (7-10) Sodium Chloride (Sodium Chloride 0.9% 10 Ml Flush Syringe) 10 ml IV BID KYLE Sodium Chloride (Sodium Chloride 0.9% 10 Ml Flush Syringe) 10 ml IV PRN PRN PRN Reason: LINE FLUSH Review of Systems ROS unobtainable: due to endotracheal tube, due to mental status Exam Vital Signs Temp Pulse Resp BP Pulse Ox 100.9 F H 122 H 16 111/60 95 03/01/21 18:38 03/01/21 18:38 03/01/21 18:38 03/01/21 18:38 03/01/21 18:38 Narrative exam: Gen.: Intubated, nonresponsive, sedated. No apparent distress ENT: ET tube in place. Trachea midline. No lymphadenopathy. No scleral icterus or conjunctival pallor CV: S1, S2 present Respiratory: No audible wheezes Abdomen: Soft, nondistended, nontender. No rebound, rigidity, guarding Extremities: No clubbing, cyanosis, edema Results - Labs 03/01/21 19:21 03/02/21 10:48 Abnormal lab results 03/01/21 03/01/21 03/01/21 Range/Units 19:15 19:21 19:21 WBC 12.7 H (4.5-11.0) K/mm3 RBC 2.77 L (3.65-5.03) M/mm3 Hgb 9.1 L (11.8-15.2) gm/dl Hct 27.7 L (35.5-45.6) % MCV 100 H (84-94) fl MCH 33 H (28-32) pg RDW 18.0 H (13.2-15.2) % Monocytes % (Manual) 17.0 H (0.0-7.3) % Monocytes # (Manual) 2.2 H (0.0-0.8) K/mm3 PT (12.2-14.9) Sec. INR (0.87-1.13) ABG pH (7.320-7.450) POC ABG pO2 64.9 L (83-108) mmHg ABG Hemoglobin 9.3 L (12.0-17.5) ABG Oxyhemoglobin 93.0 L (94-98) ABG Sodium 133.8 L (136.0-145.0) mmol/L ABG Potassium (3.40-4.50) mmol/L ABG Chloride 97.0 L (98-107) mmol/L ABG Glucose 191 H (65-95) mg/dL Carboxyhemoglobin (0.5-1.5) Sodium (137-145) mmol/L Chloride (98-107) mmol/L Carbon Dioxide (22-30) mmol/L BUN (9-20) mg/dL Creatinine (0.8-1.3) mg/dL Glucose (75-100) mg/dL POC Glucose (70-105) mg/dL Lactic Acid (0.7-2.0) mmol/L Calcium (8.4-10.2) mg/dL Total Bilirubin (0.1-1.2) mg/dL Direct Bilirubin (0-0.2) mg/dL AST (5-40) units/L ALT (7-56) units/L Alkaline Phosphatase (35-129) units/L Ammonia (25-60) umol/L Troponin T 0.493 H* (0.00-0.029) ng/mL Total Protein (6.3-8.2) g/dL Albumin (3.9-5) g/dL Triglycerides 400 H (2-149) mg/dL Cholesterol 232 H (50-199) mg/dL HDL Cholesterol 22 L (40-59) mg/dL Lipase (13-60) units/L Arterial Blood Glucose 191 H (65-95) mg/dL Arterial Blood Ionized Calcium 4.4 L (4.6-5.3) mg/dL Salicylates (2.8-20.0) mg/dL Acetaminophen (10.0-30.0) ug/mL 03/01/21 03/01/21 03/01/21 Range/Units 19:21 19:21 19:21 WBC (4.5-11.0) K/mm3 RBC (3.65-5.03) M/mm3 Hgb (11.8-15.2) gm/dl Hct (35.5-45.6) % MCV (84-94) fl MCH (28-32) pg RDW (13.2-15.2) % Monocytes % (Manual) (0.0-7.3) % Monocytes # (Manual) (0.0-0.8) K/mm3 PT 16.6 H (12.2-14.9) Sec. INR 1.28 H (0.87-1.13) ABG pH (7.320-7.450) POC ABG pO2 (83-108) mmHg ABG Hemoglobin (12.0-17.5) ABG Oxyhemoglobin (94-98) ABG Sodium (136.0-145.0) mmol/L ABG Potassium (3.40-4.50) mmol/L ABG Chloride (98-107) mmol/L ABG Glucose (65-95) mg/dL Carboxyhemoglobin (0.5-1.5) Sodium 132 L (137-145) mmol/L Chloride 92.2 L (98-107) mmol/L Carbon Dioxide (22-30) mmol/L BUN 43 H (9-20) mg/dL Creatinine 2.4 H (0.8-1.3) mg/dL Glucose 190 H (75-100) mg/dL POC Glucose (70-105) mg/dL Lactic Acid 2.90 H* (0.7-2.0) mmol/L Calcium (8.4-10.2) mg/dL Total Bilirubin 1.60 H (0.1-1.2) mg/dL Direct Bilirubin 1.2 H (0-0.2) mg/dL AST 275 H (5-40) units/L ALT 156 H (7-56) units/L Alkaline Phosphatase 282 H (35-129) units/L Ammonia (25-60) umol/L Troponin T (0.00-0.029) ng/mL Total Protein 5.8 L (6.3-8.2) g/dL Albumin 2.6 L (3.9-5) g/dL Triglycerides (2-149) mg/dL Cholesterol (50-199) mg/dL HDL Cholesterol (40-59) mg/dL Lipase 120 H (13-60) units/L Arterial Blood Glucose (65-95) mg/dL Arterial Blood Ionized Calcium (4.6-5.3) mg/dL Salicylates (2.8-20.0) mg/dL Acetaminophen (10.0-30.0) ug/mL 03/01/21 03/01/21 03/01/21 Range/Units 19:21 19:21 19:21 WBC (4.5-11.0) K/mm3 RBC (3.65-5.03) M/mm3 Hgb (11.8-15.2) gm/dl Hct (35.5-45.6) % MCV (84-94) fl MCH (28-32) pg RDW (13.2-15.2) % Monocytes % (Manual) (0.0-7.3) % Monocytes # (Manual) (0.0-0.8) K/mm3 PT (12.2-14.9) Sec. INR (0.87-1.13) ABG pH (7.320-7.450) POC ABG pO2 (83-108) mmHg ABG Hemoglobin (12.0-17.5) ABG Oxyhemoglobin (94-98) ABG Sodium (136.0-145.0) mmol/L ABG Potassium (3.40-4.50) mmol/L ABG Chloride (98-107) mmol/L ABG Glucose (65-95) mg/dL Carboxyhemoglobin (0.5-1.5) Sodium (137-145) mmol/L Chloride (98-107) mmol/L Carbon Dioxide (22-30) mmol/L BUN (9-20) mg/dL Creatinine (0.8-1.3) mg/dL Glucose (75-100) mg/dL POC Glucose (70-105) mg/dL Lactic Acid (0.7-2.0) mmol/L Calcium (8.4-10.2) mg/dL Total Bilirubin (0.1-1.2) mg/dL Direct Bilirubin (0-0.2) mg/dL AST (5-40) units/L ALT (7-56) units/L Alkaline Phosphatase (35-129) units/L Ammonia 71.0 H (25-60) umol/L Troponin T (0.00-0.029) ng/mL Total Protein (6.3-8.2) g/dL Albumin (3.9-5) g/dL Triglycerides (2-149) mg/dL Cholesterol (50-199) mg/dL HDL Cholesterol (40-59) mg/dL Lipase (13-60) units/L Arterial Blood Glucose (65-95) mg/dL Arterial Blood Ionized Calcium (4.6-5.3) mg/dL Salicylates < 0.3 L (2.8-20.0) mg/dL Acetaminophen 5.0 L (10.0-30.0) ug/mL 03/01/21 03/01/21 03/02/21 Range/Units 20:55 20:55 00:01 WBC (4.5-11.0) K/mm3 RBC (3.65-5.03) M/mm3 Hgb (11.8-15.2) gm/dl Hct (35.5-45.6) % MCV (84-94) fl MCH (28-32) pg RDW (13.2-15.2) % Monocytes % (Manual) (0.0-7.3) % Monocytes # (Manual) (0.0-0.8) K/mm3 PT (12.2-14.9) Sec. INR (0.87-1.13) ABG pH 7.234 L (7.320-7.450) POC ABG pO2 240.5 H (83-108) mmHg ABG Hemoglobin 9.3 L (12.0-17.5) ABG Oxyhemoglobin 99.1 H (94-98) ABG Sodium 135.3 L (136.0-145.0) mmol/L ABG Potassium (3.40-4.50) mmol/L ABG Chloride (98-107) mmol/L ABG Glucose 286 H (65-95) mg/dL Carboxyhemoglobin 0.3 L (0.5-1.5) Sodium (137-145) mmol/L Chloride (98-107) mmol/L Carbon Dioxide (22-30) mmol/L BUN (9-20) mg/dL Creatinine (0.8-1.3) mg/dL Glucose (75-100) mg/dL POC Glucose (70-105) mg/dL Lactic Acid 4.30 H* (0.7-2.0) mmol/L Calcium (8.4-10.2) mg/dL Total Bilirubin (0.1-1.2) mg/dL Direct Bilirubin (0-0.2) mg/dL AST (5-40) units/L ALT (7-56) units/L Alkaline Phosphatase (35-129) units/L Ammonia (25-60) umol/L Troponin T 0.484 H* (0.00-0.029) ng/mL Total Protein (6.3-8.2) g/dL Albumin (3.9-5) g/dL Triglycerides (2-149) mg/dL Cholesterol (50-199) mg/dL HDL Cholesterol (40-59) mg/dL Lipase (13-60) units/L Arterial Blood Glucose 286 H (65-95) mg/dL Arterial Blood Ionized Calcium (4.6-5.3) mg/dL Salicylates (2.8-20.0) mg/dL Acetaminophen (10.0-30.0) ug/mL 03/02/21 03/02/21 03/02/21 Range/Units 03:42 05:23 06:35 WBC (4.5-11.0) K/mm3 RBC (3.65-5.03) M/mm3 Hgb (11.8-15.2) gm/dl Hct (35.5-45.6) % MCV (84-94) fl MCH (28-32) pg RDW (13.2-15.2) % Monocytes % (Manual) (0.0-7.3) % Monocytes # (Manual) (0.0-0.8) K/mm3 PT (12.2-14.9) Sec. INR (0.87-1.13) ABG pH 7.225 L (7.320-7.450) POC ABG pO2 181.8 H (83-108) mmHg ABG Hemoglobin 9.4 L (12.0-17.5) ABG Oxyhemoglobin 98.6 H (94-98) ABG Sodium 132.1 L (136.0-145.0) mmol/L ABG Potassium 5.0 H (3.40-4.50) mmol/L ABG Chloride (98-107) mmol/L ABG Glucose 454 H (65-95) mg/dL Carboxyhemoglobin 0.3 L (0.5-1.5) Sodium (137-145) mmol/L Chloride (98-107) mmol/L Carbon Dioxide (22-30) mmol/L BUN (9-20) mg/dL Creatinine (0.8-1.3) mg/dL Glucose (75-100) mg/dL POC Glucose 410 H (70-105) mg/dL Lactic Acid 7.50 H* (0.7-2.0) mmol/L Calcium (8.4-10.2) mg/dL Total Bilirubin (0.1-1.2) mg/dL Direct Bilirubin (0-0.2) mg/dL AST (5-40) units/L ALT (7-56) units/L Alkaline Phosphatase (35-129) units/L Ammonia (25-60) umol/L Troponin T (0.00-0.029) ng/mL Total Protein (6.3-8.2) g/dL Albumin (3.9-5) g/dL Triglycerides (2-149) mg/dL Cholesterol (50-199) mg/dL HDL Cholesterol (40-59) mg/dL Lipase (13-60) units/L Arterial Blood Glucose 454 H (65-95) mg/dL Arterial Blood Ionized Calcium 4.2 L (4.6-5.3) mg/dL Salicylates (2.8-20.0) mg/dL Acetaminophen (10.0-30.0) ug/mL 03/02/21 03/02/21 03/02/21 Range/Units 10:48 10:48 11:23 WBC (4.5-11.0) K/mm3 RBC (3.65-5.03) M/mm3 Hgb (11.8-15.2) gm/dl Hct (35.5-45.6) % MCV (84-94) fl MCH (28-32) pg RDW (13.2-15.2) % Monocytes % (Manual) (0.0-7.3) % Monocytes # (Manual) (0.0-0.8) K/mm3 PT (12.2-14.9) Sec. INR (0.87-1.13) ABG pH 7.318 L (7.320-7.450) POC ABG pO2 (83-108) mmHg ABG Hemoglobin 9.2 L (12.0-17.5) ABG Oxyhemoglobin (94-98) ABG Sodium 133.2 L (136.0-145.0) mmol/L ABG Potassium (3.40-4.50) mmol/L ABG Chloride (98-107) mmol/L ABG Glucose 504 H (65-95) mg/dL Carboxyhemoglobin 0.3 L (0.5-1.5) Sodium 132 L (137-145) mmol/L Chloride 93.3 L (98-107) mmol/L Carbon Dioxide 20 L (22-30) mmol/L BUN 46 H (9-20) mg/dL Creatinine 1.9 H (0.8-1.3) mg/dL Glucose 503 H* (75-100) mg/dL POC Glucose (70-105) mg/dL Lactic Acid 3.40 H* (0.7-2.0) mmol/L Calcium 7.9 L (8.4-10.2) mg/dL Total Bilirubin (0.1-1.2) mg/dL Direct Bilirubin (0-0.2) mg/dL AST (5-40) units/L ALT (7-56) units/L Alkaline Phosphatase (35-129) units/L Ammonia (25-60) umol/L Troponin T (0.00-0.029) ng/mL Total Protein (6.3-8.2) g/dL Albumin (3.9-5) g/dL Triglycerides (2-149) mg/dL Cholesterol (50-199) mg/dL HDL Cholesterol (40-59) mg/dL Lipase (13-60) units/L Arterial Blood Glucose 504 H (65-95) mg/dL Arterial Blood Ionized Calcium 4.2 L (4.6-5.3) mg/dL Salicylates (2.8-20.0) mg/dL Acetaminophen (10.0-30.0) ug/mL 03/02/21 Range/Units 11:38 WBC (4.5-11.0) K/mm3 RBC (3.65-5.03) M/mm3 Hgb (11.8-15.2) gm/dl Hct (35.5-45.6) % MCV (84-94) fl MCH (28-32) pg RDW (13.2-15.2) % Monocytes % (Manual) (0.0-7.3) % Monocytes # (Manual) (0.0-0.8) K/mm3 PT (12.2-14.9) Sec. INR (0.87-1.13) ABG pH (7.320-7.450) POC ABG pO2 (83-108) mmHg ABG Hemoglobin (12.0-17.5) ABG Oxyhemoglobin (94-98) ABG Sodium (136.0-145.0) mmol/L ABG Potassium (3.40-4.50) mmol/L ABG Chloride (98-107) mmol/L ABG Glucose (65-95) mg/dL Carboxyhemoglobin (0.5-1.5) Sodium (137-145) mmol/L Chloride (98-107) mmol/L Carbon Dioxide (22-30) mmol/L BUN (9-20) mg/dL Creatinine (0.8-1.3) mg/dL Glucose (75-100) mg/dL POC Glucose 468 H (70-105) mg/dL Lactic Acid (0.7-2.0) mmol/L Calcium (8.4-10.2) mg/dL Total Bilirubin (0.1-1.2) mg/dL Direct Bilirubin (0-0.2) mg/dL AST (5-40) units/L ALT (7-56) units/L Alkaline Phosphatase (35-129) units/L Ammonia (25-60) umol/L Troponin T (0.00-0.029) ng/mL Total Protein (6.3-8.2) g/dL Albumin (3.9-5) g/dL Triglycerides (2-149) mg/dL Cholesterol (50-199) mg/dL HDL Cholesterol (40-59) mg/dL Lipase (13-60) units/L Arterial Blood Glucose (65-95) mg/dL Arterial Blood Ionized Calcium (4.6-5.3) mg/dL Salicylates (2.8-20.0) mg/dL Acetaminophen (10.0-30.0) ug/mL Diabetes panel 03/01/21 03/01/21 03/02/21 Range/Units 19: 19: 10:48 Sodium 132 L 132 L (137-145) mmol/L Potassium 4.3 4.7 (3.6-5.0) mmol/L Chloride 92.2 L 93.3 L (98-107) mmol/L Carbon Dioxide 23 20 L (22-30) mmol/L BUN 43 H 46 H (9-20) mg/dL Creatinine 2.4 H 1.9 H (0.8-1.3) mg/dL Glucose 190 H 503 H* (75-100) mg/dL Calcium 8.8 7.9 L (8.4-10.2) mg/dL AST 275 H (5-40) units/L ALT 156 H (7-56) units/L Alkaline Phosphatase 282 H (35-129) units/L Total Protein 5.8 L (6.3-8.2) g/dL Albumin 2.6 L (3.9-5) g/dL Triglycerides 400 H (2-149) mg/dL HDL Cholesterol 22 L (40-59) mg/dL Calcium panel 03/01/21 03/02/21 Range/Units 19: 10:48 Calcium 8.8 7.9 L (8.4-10.2) mg/dL Albumin 2.6 L (3.9-5) g/dL Pituitary panel 03/01/21 03/02/21 Range/Units 19:21 10:48 Sodium 132 L 132 L (137-145) mmol/L Potassium 4.3 4.7 (3.6-5.0) mmol/L Chloride 92.2 L 93.3 L (98-107) mmol/L Carbon Dioxide 23 20 L (22-30) mmol/L BUN 43 H 46 H (9-20) mg/dL Creatinine 2.4 H 1.9 H (0.8-1.3) mg/dL Glucose 190 H 503 H* (75-100) mg/dL Calcium 8.8 7.9 L (8.4-10.2) mg/dL Adrenal panel 03/01/21 03/02/21 Range/Units 19:21 10:48 Sodium 132 L 132 L (137-145) mmol/L Potassium 4.3 4.7 (3.6-5.0) mmol/L Chloride 92.2 L 93.3 L (98-107) mmol/L Carbon Dioxide 23 20 L (22-30) mmol/L BUN 43 H 46 H (9-20) mg/dL Creatinine 2.4 H 1.9 H (0.8-1.3) mg/dL Glucose 190 H 503 H* (75-100) mg/dL Calcium 8.8 7.9 L (8.4-10.2) mg/dL Total Bilirubin 1.60 H (0.1-1.2) mg/dL AST 275 H (5-40) units/L ALT 156 H (7-56) units/L Alkaline Phosphatase 282 H (35-129) units/L Total Protein 5.8 L (6.3-8.2) g/dL Albumin 2.6 L (3.9-5) g/dL - Imaging CT scan - abdomen: report reviewed, image reviewed CT scan - pelvis: report reviewed, image reviewed US - abdomen: report reviewed, image reviewed Assessment and Plan 51-year-old male with 1. Transaminitis, hepatic steatosis 2. CHF exacerbation 3. Vent Dependent respiratory failure Ct A/P - no acute intraabdominal pathology Abd u/s - no evidence of cholelithiasis, cholecystitis, or choledocolithiasis Plan: 1. Trend LFTs 2. Rec GI consultation 3. Continue care as per 1' team and consultants 4. No acute surgical intervention indicated. Will s/o Thank you for this consultation. Please call with any questions or concerns. Evaluation and treatment of this patient was during the time of the national and state emergency arising from COVID19 coronavirus pandemic. Treatment and procedures performed meet the current and available best practice and guidelines for patient during the COVID pandemic.
[2021-03-02] MEDS: fentaNYL 100 MCG/2 ML INJ IV PRN (13:44)
[2021-03-02] MEDS: INSULIN REGULAR, HUMAN 100 UNITS in SODIUM CHLORIDE 0.9% 99 ML IV SCH ×2 (13:50→23:36)
[2021-03-02] MEDS ORDERED: HEPARIN 5,000 UNIT/1 ML VIAL SUB-Q SCH (14:00)
[2021-03-02] MEDS: MIDODRINE 5 MG TAB PO SCH (14:22)
[2021-03-02] MEDS: ASPIRIN EC 81 MG TAB PO SCH (14:26)
--- NOTE | 2021-03-02 14:31 | Event Note ---
Date: 03/02/21 Patient seen and examined This is the second visit after midnight 51-year-old male with past medical history CHF, COPD, DM 2, and DVT/PE on warfar in. Pt presented to the emergency room with altered mental status, hypoxia. Patient is currently intubated and sedated Patient being treated for ALPHONSO, lactic/metabolic acidosis, severe sepsis, diabet es mellitus type 2 with uncontrolled hyperglycemia/DKA Placed on bicarbonate drip, initiated on insulin drip for uncontrolled hyperglycemia Monitor CBC BMP, continue antibiotics Critical care consulted will follow recommendation Continue current management and plan as dictated in the H&P Critically ill -It took me about 28 minutes to reevaluate and reasses this patient, discussed with RN/CM, review medical documents, lab results, imaging, medication list and placing order.
--- NOTE | 2021-03-02 15:24 | Consultation ---
History of Present Illness Consult date: 03/02/21 Requesting physician: SCOTTY BAHENA Reason for consult: other (Acute Hypoxemic Respiratory Failure) History of present illness: PULMONARY/CCM CONSULT NOTE (Full dictation # [id number]) Please see dictated notes for full details Past History Past Medical History: COPD, diabetes, DVT, heart failure, hypertension, renal failure (Acute on chronic renal sufficiency), other (Asthma,Sleep Apnea) Past Surgical History: No surgical history Social history: no significant social history Family history: no significant family history Medications and Allergies Allergies Allergy/AdvReac Type Severity Reaction Status Date / Time Penicillins Allergy Rash Verified 03/30/19 10:45 Home Medications Medication Instructions Recorded Confirmed Last Taken Type ALBUTEROL NEB's [Proventil 0.083%] 2.5 mg IH TID PRN 04/27/13 01/16/14 04/27/13 History Albuterol Mdi (or & Nicu Only) 2 puff IH QID PRN 04/27/13 01/16/14 04/27/13 History [Proair] Fluticasone/Salmeterol [Advair 1 puff IH BID 04/27/13 01/16/14 04/27/13 History Diskus 250-50 mcg] Potassium Chloride [Klor-Con M10] 10 meq PO QDAY 04/27/13 01/16/14 04/27/13 History hydroCHLOROthiazide [Hctz] 12.5 mg PO QDAY 04/27/13 01/16/14 04/27/13 History Albuterol Sulfate [Proair 90 mcg IH Q4HR PRN #2 aer.pow.ba 01/22/19 Unknown Rx Respiclick] Benzonatate [Tessalon Perles] 100 mg PO Q8HR PRN #30 capsule 01/22/19 Unknown Rx Doxycycline Hyclate [Doxycycline 100 mg PO Q12HR 5 Days #10 tab 01/22/19 Unknown Rx Hyclate TAB] Fluticasone [Flonase] 1 spray NS QDAY #1 bottle 01/22/19 Unknown Rx Ibuprofen [Motrin] 600 mg PO Q8H PRN #30 tablet 01/22/19 Unknown Rx Ipratropium (Nf) [Atrovent] 2 puff IH Q6HR PRN #2 inha 01/22/19 Unknown Rx predniSONE [Deltasone] 40 mg PO QDAY #8 tab 01/22/19 Unknown Rx Albuterol Mdi (or & Nicu Only) 2 puff IH QID PRN #1 inhalation 01/23/19 Unknown Rx [ProAir HFA Inhaler] Albuterol Sulfate [Albuterol 0.63% 0.63 mg IH Q4HR PRN #2 ml 01/23/19 Unknown Rx NEBS] Ipratropium [Atrovent NEB] 0.5 mg IH Q4HR #2 ml 01/23/19 Unknown Rx Azithromycin [Zithromax Z-JESICA] 250 mg PO DAILY #6 tablet 02/26/19 Unknown Rx predniSONE [Deltasone] 20 mg PO BID #14 tablet 02/26/19 Unknown Rx metFORMIN [Glucophage] 500 mg PO BID #30 tablet 03/30/19 Unknown Rx Ondansetron [Zofran Odt] 4 mg PO Q8HR PRN #14 tab.rapdis 01/01/21 Unknown Rx Active Meds: Active Medications Acetaminophen (Acetaminophen 650 Mg Rect Supp) 650 mg IN Q6H PRN PRN Reason: Pain MILD(1-3)/Fever >100.5/VALDES Aspirin (Aspirin Ec 81 Mg Tab) 81 mg PO QDAY KYLE Last Admin: 03/02/21 14:26 Dose: 81 mg Documented by: Dextrose (Dextrose 50% In Water (25gm) 50 Ml Syringe) 50 ml IV Q30MIN PRN; Protocol PRN Reason: Hypoglycemia Fentanyl (Fentanyl 100 Mcg/2 Ml Inj) 50 mcg IV Q10MIN PRN PRN Reason: ANALGESIA Last Admin: 03/02/21 13:44 Dose: 50 mcg Documented by: Heparin Sodium (Porcine) (Heparin 5,000 Unit/1 Ml Vial) 5,000 unit SUB-Q Q8HR KYLE Last Admin: 03/02/21 14:22 Dose: 5,000 unit Documented by: Levofloxacin/Dextrose (Levaquin 750mg/150ml) 750 mg in 150 mls @ 100 mls/hr IV Q48HR KYLE Last Admin: 03/02/21 10:02 Dose: 100 mls/hr Documented by: Aztreonam (Azactam/Ns 1 Gm/50 Ml) 1 gm in 50 mls @ 50 mls/hr IV Q6HR KYLE; Protocol Last Admin: 03/02/21 12:33 Dose: 50 mls/hr Documented by: Fentanyl Citrate (Fentanyl Drip Premix) 2,000 mcg in 100 mls @ 6.55 mls/hr IV TITR [facility]; Protocol Last Admin: 03/02/21 14:16 Dose: 2 mcg/kg/hr, 13.1 mls/hr Documented by: Vancomycin HCl 2,000 mg/ (Sodium Chloride) 540 mls @ 250 mls/hr IV Q24H KYLE Sodium Bicarbonate 150 meq/ (Sterile Water) 1,150 mls @ 200 mls/hr IV DIRECT KYLE Stop: 03/06/21 15:44 Last Admin: 03/02/21 10:02 Dose: 200 mls/hr Documented by: Sodium Chloride (Nacl 0.9% 1000 Ml) 1,000 mls @ 125 mls/hr IV ONCE ONE Stop: 03/02/21 18:59 Last Admin: 03/02/21 13:46 Dose: 125 mls/hr Documented by: Insulin Human Regular 100 (units/ Sodium Chloride) 100 mls @ 1 mls/hr IV TITR [facility]; Protocol Last Admin: 03/02/21 13:50 Dose: 8 units/hr, 8 mls/hr Documented by: Magnesium Hydroxide (Magnesium Hydroxide (Mom) Oral Liqd Udc) 30 ml PO Q4H PRN PRN Reason: Constipation Midodrine (Midodrine 5 Mg Tab) 10 mg PO TID@0800,1200,1600 [facility] Last Admin: 03/02/21 14:22 Dose: 10 mg Documented by: Morphine Sulfate (Morphine 2 Mg/1 Ml Inj) 2 mg IV Q4H PRN PRN Reason: Pain, Moderate (4-6) Morphine Sulfate (Morphine 4 Mg/1 Ml Inj) 4 mg IV Q4H PRN PRN Reason: Pain , Severe (7-10) Sodium Chloride (Sodium Chloride 0.9% 10 Ml Flush Syringe) 10 ml IV BID [facility] Last Admin: 03/02/21 10:02 Dose: 10 ml Documented by: Sodium Chloride (Sodium Chloride 0.9% 10 Ml Flush Syringe) 10 ml IV PRN PRN PRN Reason: LINE FLUSH Physical Examination Vital signs: Vital Signs Temp Pulse Resp BP Pulse Ox 100.9 F H 122 H 16 111/60 95 03/01/21 18:38 03/01/21 18:38 03/01/21 18:38 03/01/21 18:38 03/01/21 18:38 Results - Laboratory Findings CBC and BMP: 03/01/21 19:21 03/02/21 10:48 ABG ABG pH 7.318 (7.320-7.450) L 03/02/21 11:23 POC ABG pCO2 43.5 mmHg (32.0-48.0) 03/02/21 11:23 POC ABG pO2 93.4 mmHg (83-108) 03/02/21 11:23 POC ABG HCO3 21.8 03/02/21 11:23 ABG O2 Saturation 95.8 (0-100) 03/02/21 11:23 PT/INR, D-dimer PT 16.6 Sec. (12.2-14.9) H 03/01/21 19:21 INR 1.28 (0.87-1.13) H 03/01/21 19:21 Abnormal lab findings: Abnormal Labs 03/01/21 03/01/21 03/01/21 19:15 19:21 19:21 WBC 12.7 H RBC 2.77 L Hgb 9.1 L Hct 27.7 L MCV 100 H MCH 33 H RDW 18.0 H Monocytes % (Manual) 17.0 H Monocytes # (Manual) 2.2 H PT INR ABG pH POC ABG pO2 64.9 L ABG Hemoglobin 9.3 L ABG Oxyhemoglobin 93.0 L ABG Sodium 133.8 L ABG Potassium ABG Chloride 97.0 L ABG Glucose 191 H Carboxyhemoglobin Sodium Chloride Carbon Dioxide BUN Creatinine Glucose POC Glucose Lactic Acid Calcium Phosphorus Total Bilirubin Direct Bilirubin AST ALT Alkaline Phosphatase Ammonia Troponin T 0.493 H* Total Protein Albumin Triglycerides 400 H Cholesterol 232 H HDL Cholesterol 22 L Lipase Arterial Blood Glucose 191 H Arterial Blood Ionized Calcium 4.4 L Salicylates Acetaminophen 03/01/21 03/01/21 03/01/21 19:21 19:21 19:21 WBC RBC Hgb Hct MCV MCH RDW Monocytes % (Manual) Monocytes # (Manual) PT 16.6 H INR 1.28 H ABG pH POC ABG pO2 ABG Hemoglobin ABG Oxyhemoglobin ABG Sodium ABG Potassium ABG Chloride ABG Glucose Carboxyhemoglobin Sodium 132 L Chloride 92.2 L Carbon Dioxide BUN 43 H Creatinine 2.4 H Glucose 190 H POC Glucose Lactic Acid 2.90 H* Calcium Phosphorus Total Bilirubin 1.60 H Direct Bilirubin 1.2 H AST 275 H ALT 156 H Alkaline Phosphatase 282 H Ammonia Troponin T Total Protein 5.8 L Albumin 2.6 L Triglycerides Cholesterol HDL Cholesterol Lipase 120 H Arterial Blood Glucose Arterial Blood Ionized Calcium Salicylates Acetaminophen 03/01/21 03/01/21 03/01/21 19:21 19:21 19:21 WBC RBC Hgb Hct MCV MCH RDW Monocytes % (Manual) Monocytes # (Manual) PT INR ABG pH POC ABG pO2 ABG Hemoglobin ABG Oxyhemoglobin ABG Sodium ABG Potassium ABG Chloride ABG Glucose Carboxyhemoglobin Sodium Chloride Carbon Dioxide BUN Creatinine Glucose POC Glucose Lactic Acid Calcium Phosphorus Total Bilirubin Direct Bilirubin AST ALT Alkaline Phosphatase Ammonia 71.0 H Troponin T Total Protein Albumin Triglycerides Cholesterol HDL Cholesterol Lipase Arterial Blood Glucose Arterial Blood Ionized Calcium Salicylates < 0.3 L Acetaminophen 5.0 L 03/01/21 03/01/21 03/02/21 20:55 20:55 00:01 WBC RBC Hgb Hct MCV MCH RDW Monocytes % (Manual) Monocytes # (Manual) PT INR ABG pH 7.234 L POC ABG pO2 240.5 H ABG Hemoglobin 9.3 L ABG Oxyhemoglobin 99.1 H ABG Sodium 135.3 L ABG Potassium ABG Chloride ABG Glucose 286 H Carboxyhemoglobin 0.3 L Sodium Chloride Carbon Dioxide BUN Creatinine Glucose POC Glucose Lactic Acid 4.30 H* Calcium Phosphorus Total Bilirubin Direct Bilirubin AST ALT Alkaline Phosphatase Ammonia Troponin T 0.484 H* Total Protein Albumin Triglycerides Cholesterol HDL Cholesterol Lipase Arterial Blood Glucose 286 H Arterial Blood Ionized Calcium Salicylates Acetaminophen 03/02/21 03/02/21 03/02/21 03:42 05:23 06:35 WBC RBC Hgb Hct MCV MCH RDW Monocytes % (Manual) Monocytes # (Manual) PT INR ABG pH 7.225 L POC ABG pO2 181.8 H ABG Hemoglobin 9.4 L ABG Oxyhemoglobin 98.6 H ABG Sodium 132.1 L ABG Potassium 5.0 H ABG Chloride ABG Glucose 454 H Carboxyhemoglobin 0.3 L Sodium Chloride Carbon Dioxide BUN Creatinine Glucose POC Glucose 410 H Lactic Acid 7.50 H* Calcium Phosphorus Total Bilirubin Direct Bilirubin AST ALT Alkaline Phosphatase Ammonia Troponin T Total Protein Albumin Triglycerides Cholesterol HDL Cholesterol Lipase Arterial Blood Glucose 454 H Arterial Blood Ionized Calcium 4.2 L Salicylates Acetaminophen 03/02/21 03/02/21 03/02/21 10:48 10:48 10:48 WBC RBC Hgb Hct MCV MCH RDW Monocytes % (Manual) Monocytes # (Manual) PT INR ABG pH POC ABG pO2 ABG Hemoglobin ABG Oxyhemoglobin ABG Sodium ABG Potassium ABG Chloride ABG Glucose Carboxyhemoglobin Sodium 132 L Chloride 93.3 L Carbon Dioxide 20 L BUN 46 H Creatinine 1.9 H Glucose 503 H* POC Glucose Lactic Acid 3.40 H* Calcium 7.9 L Phosphorus 5.80 H Total Bilirubin Direct Bilirubin AST ALT Alkaline Phosphatase Ammonia Troponin T Total Protein Albumin Triglycerides Cholesterol HDL Cholesterol Lipase Arterial Blood Glucose Arterial Blood Ionized Calcium Salicylates Acetaminophen 03/02/21 03/02/21 11:23 11:38 WBC RBC Hgb Hct MCV MCH RDW Monocytes % (Manual) Monocytes # (Manual) PT INR ABG pH 7.318 L POC ABG pO2 ABG Hemoglobin 9.2 L ABG Oxyhemoglobin ABG Sodium 133.2 L ABG Potassium ABG Chloride ABG Glucose 504 H Carboxyhemoglobin 0.3 L Sodium Chloride Carbon Dioxide BUN Creatinine Glucose POC Glucose 468 H Lactic Acid Calcium Phosphorus Total Bilirubin Direct Bilirubin AST ALT Alkaline Phosphatase Ammonia Troponin T Total Protein Albumin Triglycerides Cholesterol HDL Cholesterol Lipase Arterial Blood Glucose 504 H Arterial Blood Ionized Calcium 4.2 L Salicylates Acetaminophen
[2021-03-02] MEDS ORDERED: LIP THERAPY VASELINE TP PRN (15:42)
[2021-03-02] MEDS ORDERED: MINERAL OIL/PETROLATUM, WHITE OPHTH OINT 3.5 GM OU PRN (15:42)
[2021-03-02] MEDS ORDERED: HEPARIN 10,000 UNITS/10 ML VIAL IV PRN (15:44)
[2021-03-02] MEDS ORDERED: ALBUTEROL 2.5 MG/3 ML NEBU IH PRN (15:45)
--- NOTE | 2021-03-02 16:03 | Consultation ---
History of Present Illness - Reason for Consult Consult date: 03/02/21 acute renal failure, metabolic acidosis - History of Present Illness This is a 51-year-old man with diabetes, hypertension, congestive heart failure and recent history of acute kidney injury requiring dialysis who presented to the hospital within 48 hours of discharge from another hospital with shortness of breath and encephalopathy. He was subsequently admitted in the ER and nephrology was consulted for acute kidney injury and acidosis. Patient had a recent prolonged stay at [facility], [place] for heart failure exacerbation and also required dialysis from 12/12-01/14. He has been able to stay off dialysis since then. History has been obtained from chart as patient is sedated and intubated. Past History Past Medical History: COPD, diabetes, DVT, heart failure, hypertension, renal failure (Acute on chronic renal sufficiency), other (Asthma,Sleep Apnea) Past Surgical History: No surgical history Social history: no significant social history Family history: no significant family history Medications and Allergies Allergies Allergy/AdvReac Type Severity Reaction Status Date / Time Penicillins Allergy Rash Verified 03/30/19 10:45 Home Medications Medication Instructions Recorded Confirmed Last Taken Type ALBUTEROL NEB's [Proventil 0.083%] 2.5 mg IH TID PRN 04/27/13 01/16/14 04/27/13 History Albuterol Mdi (or & Nicu Only) 2 puff IH QID PRN 04/27/13 01/16/14 04/27/13 History [Proair] Fluticasone/Salmeterol [Advair 1 puff IH BID 04/27/13 01/16/14 04/27/13 History Diskus 250-50 mcg] Potassium Chloride [Klor-Con M10] 10 meq PO QDAY 04/27/13 01/16/14 04/27/13 History hydroCHLOROthiazide [Hctz] 12.5 mg PO QDAY 04/27/13 01/16/14 04/27/13 History Albuterol Sulfate [Proair 90 mcg IH Q4HR PRN #2 aer.pow.ba 01/22/19 Unknown Rx Respiclick] Benzonatate [Tessalon Perles] 100 mg PO Q8HR PRN #30 capsule 01/22/19 Unknown Rx Doxycycline Hyclate [Doxycycline 100 mg PO Q12HR 5 Days #10 tab 01/22/19 Unknown Rx Hyclate TAB] Fluticasone [Flonase] 1 spray NS QDAY #1 bottle 01/22/19 Unknown Rx Ibuprofen [Motrin] 600 mg PO Q8H PRN #30 tablet 01/22/19 Unknown Rx Ipratropium (Nf) [Atrovent] 2 puff IH Q6HR PRN #2 inha 01/22/19 Unknown Rx predniSONE [Deltasone] 40 mg PO QDAY #8 tab 01/22/19 Unknown Rx Albuterol Mdi (or & Nicu Only) 2 puff IH QID PRN #1 inhalation 01/23/19 Unknown Rx [ProAir HFA Inhaler] Albuterol Sulfate [Albuterol 0.63% 0.63 mg IH Q4HR PRN #2 ml 01/23/19 Unknown Rx NEBS] Ipratropium [Atrovent NEB] 0.5 mg IH Q4HR #2 ml 01/23/19 Unknown Rx Azithromycin [Zithromax Z-JESICA] 250 mg PO DAILY #6 tablet 02/26/19 Unknown Rx predniSONE [Deltasone] 20 mg PO BID #14 tablet 02/26/19 Unknown Rx metFORMIN [Glucophage] 500 mg PO BID #30 tablet 03/30/19 Unknown Rx Ondansetron [Zofran Odt] 4 mg PO Q8HR PRN #14 tab.rapdis 01/01/21 Unknown Rx Active Meds: Active Medications Acetaminophen (Acetaminophen 650 Mg Rect Supp) 650 mg ID Q6H PRN PRN Reason: Pain MILD(1-3)/Fever >100.5/VALDES Albuterol (Albuterol 2.5 Mg/3 Ml Nebu) 2.5 mg IH Q4HRT PRN PRN Reason: Shortness Of Breath Aspirin (Aspirin Ec 81 Mg Tab) 81 mg PO QDAY [facility] Last Admin: 03/02/21 14:26 Dose: 81 mg Documented by: Dextrose (Dextrose 50% In Water (25gm) 50 Ml Syringe) 50 ml IV Q30MIN PRN; Protocol PRN Reason: Hypoglycemia Famotidine (Famotidine 20 Mg/2 Ml Inj) 10 mg IV BID [facility] Fentanyl (Fentanyl 100 Mcg/2 Ml Inj) 50 mcg IV Q10MIN PRN PRN Reason: ANALGESIA Last Admin: 03/02/21 13:44 Dose: 50 mcg Documented by: Heparin Sodium (Porcine) (Heparin 10,000 Units/10 Ml Vial) 5,200 unit 40 unit/kg (5200 unit) IV Q6H PRN PRN Reason: Anti-Xa Assay < 0.1 units/ml Hydrophilic Ointment (Lip Therapy Vaseline) 1 applic TP Q2HR PRN PRN Reason: Dry Lips Levofloxacin/Dextrose (Levaquin 750mg/150ml) 750 mg in 150 mls @ 100 mls/hr IV Q48HR KYLE Last Admin: 03/02/21 10:02 Dose: 100 mls/hr Documented by: Aztreonam (Azactam/Ns 1 Gm/50 Ml) 1 gm in 50 mls @ 50 mls/hr IV Q6HR KYLE; Protocol Last Admin: 03/02/21 12:33 Dose: 50 mls/hr Documented by: Fentanyl Citrate (Fentanyl Drip Premix) 2,000 mcg in 100 mls @ 6.55 mls/hr IV TITR [facility]YLE; Protocol Last Admin: 03/02/21 14:16 Dose: 2 mcg/kg/hr, 13.1 mls/hr Documented by: Vancomycin HCl 2,000 mg/ (Sodium Chloride) 540 mls @ 250 mls/hr IV Q24H KYLE Sodium Bicarbonate 150 meq/ (Sterile Water) 1,150 mls @ 200 mls/hr IV DIRECT KYLE Stop: 03/06/21 15:44 Last Admin: 03/02/21 10:02 Dose: 200 mls/hr Documented by: Sodium Chloride (Nacl 0.9% 1000 Ml) 1,000 mls @ 125 mls/hr IV ONCE ONE Stop: 03/02/21 18:59 Last Admin: 03/02/21 13:46 Dose: 125 mls/hr Documented by: Insulin Human Regular 100 (units/ Sodium Chloride) 100 mls @ 1 mls/hr IV TITR [facility]YLE; Protocol Last Admin: 03/02/21 13:50 Dose: 8 units/hr, 8 mls/hr Documented by: Propofol (Diprivan 10 Mg/Ml) 1,000 mg in 100 mls @ 3.93 mls/hr IV TITR [facility]YLE; Protocol Heparin Sodium/Sodium Chloride (Heparin/ 0.45% Nacl-25,000 Unit/500 Ml) 25,000 unit in 500 mls @ 39.3 mls/hr IV TITR [facility]YLE; Protocol Magnesium Hydroxide (Magnesium Hydroxide (Mom) Oral Liqd Udc) 30 ml PO Q4H PRN PRN Reason: Constipation Midodrine (Midodrine 5 Mg Tab) 10 mg PO TID@0800,1200,1600 [facility] Last Admin: 03/02/21 14:22 Dose: 10 mg Documented by: Morphine Sulfate (Morphine 2 Mg/1 Ml Inj) 2 mg IV Q4H PRN PRN Reason: Pain, Moderate (4-6) Morphine Sulfate (Morphine 4 Mg/1 Ml Inj) 4 mg IV Q4H PRN PRN Reason: Pain , Severe (7-10) Multi-Ingred Cream/Lotion/Oil/Oint (Mineral Oil/Petrolatum, White Ophth Oint 3.5 Gm) 1 applic OU Q4HR PRN PRN Reason: Dry Eye(s) Senna/Docusate Sodium (Sennosides/Docusate Sodium 8.6/50 Mg Tab) 1 tab FEEDTUBE BID [facility] Sodium Chloride (Sodium Chloride 0.9% 10 Ml Flush Syringe) 10 ml IV BID [facility] Last Admin: 03/02/21 10:02 Dose: 10 ml Documented by: Sodium Chloride (Sodium Chloride 0.9% 10 Ml Flush Syringe) 10 ml IV PRN PRN PRN Reason: LINE FLUSH Review of Systems ROS unobtainable: due to endotracheal tube, due to mental status Exam - Vital Signs Vital signs: Vital Signs Temp Pulse Resp BP Pulse Ox 100.9 F H 122 H 16 111/60 95 03/01/21 18:38 03/01/21 18:38 03/01/21 18:38 03/01/21 18:38 03/01/21 18:38 - Physical Exam Narrative exam: General: Sedated. Intubated HEENT: Oral mucosa moist Neck: Supple, no JVD Chest: Intubated. Mechanical breath sounds. Heart: RRR, S1 and S2, no pericardial rub Abdomen: Soft, nontender, no renal bruit Extremity: No peripheral cyanosis, edema Neurological: Sedated Dermatology: No skin rash Psych: Unable to assess Musculoskeletal: No joint effusion Results - Lab Results 03/01/21 19:21 03/02/21 10:48 Most recent lab results ABG pH 7.318 (7.320-7.450) L 03/02/21 11:23 ABG O2 Saturation 95.8 (0-100) 03/02/21 11:23 Calcium 7.9 mg/dL (8.4-10.2) L 03/02/21 10:48 Phosphorus 5.80 mg/dL (2.5-4.5) H 03/02/21 10:48 Magnesium 2.00 mg/dL (1.7-2.3) 03/02/21 10:48 Assessment and Plan Acute kidney injury Acidosis, combination of renal failure, sepsis and DKA Acute respiratory failure, intubated Hyperosmolar hyponatremia Diabetic ketoacidosis Sepsis Elevated LFTs Patient has recent history of acute kidney injury requiring dialysis from 12/12- 01/14. Last known creatinine at that hospital prior to discharge was 1.34. There is no immediate indication for dialysis as renal function and acidosis appears to be improving but will need close monitoring. Status post bicarb injection Continue IV bicarb fluids DKA management as per primary Antibiotics as per primary Cardiology note reviewed Renally dose medications Avoid nephrotoxins Renal diet
[2021-03-02 16:47] LABS: Hemoglobin 8.8 gm/dl (11.8-15.2)
[2021-03-02 17:01] LABS: Calcium 7.6 mg/dL (8.4-10.2); INR 1.14 (0.87-1.13)
[2021-03-02 17:02] LABS: Partial Thromboplastin Time 36.6 Sec. (24.2-36.6)
[2021-03-02] MEDS: HEPARIN/ 0.45% NACL DRIP 25,000 UNIT/500 ML BAG IV SCH (17:02)
--- NOTE | 2021-03-02 19:17 | XRay Report ---
ABDOMEN AP PORTABLE SUPINE 5 INDICATION: OG tube placement COMPARISON: None available. FINDINGS: Nasogastric tube extends well into the stomach. Signer Name: Vincent Saba MD Signed: 03/02/2021 7:13 PM Workstation Name: [id number]
[2021-03-02] MEDS: SENNOSIDES/DOCUSATE SODIUM 8.6/50 MG TAB FEEDTUBE SCH (22:38)
[2021-03-02] MEDS: FAMOTIDINE 20 MG/2 ML INJ IV SCH (22:38)
[2021-03-02] MEDS: VANCOMYCIN 2,000 MG in SODIUM CHLORIDE 0.9% 500 ML 500 ML IV SCH (22:38)
--- NOTE | 2021-03-02 22:45 | Consultation ---
DATE OF CONSULTATION: 03/02/2021 PULMONARY CRITICAL CARE CONSULT NOTE DATE OF CONSULTATION: 03/02/2021 CONSULTING PHYSICIAN: Dr. Nguyen. REASON FOR CONSULTATION: Acute hypoxemic respiratory failure, on mechanical ventilatory support, non-ST elevation ME. CHIEF COMPLAINT AND HISTORY OF PRESENT ILLNESS: The patient is a 50-year-old obese male with a past medical history significant amongst other things in this context for a diagnoses of COPD, CHF and a deep venous thrombosis, who was brought into the Emergency Room for altered mental status and hypoxemia. According to the EMS Services, he had been discharged from [facility] about 24 hours prior to this presentation. He had been treated for CHF exacerbation. On the morning of arrival, he was hypoxemic at home. He was also with low blood pressure 88/50, he required about 5 liters of oxygen by nasal cannula to improve his oxygenation. When the Emergency Room physician evaluated him, he had a nonproductive cough. They report he has been fully vaccinated against COVID-19. His also denied fevers or chills, nausea, or vomiting. He had a leukocytosis. X-rays suggested aspiration. He was diagnosed with sepsis, what seems like in the Emergency Room, so at some point he was intubated in the Emergency Room. I received a call from the Emergency Room physician and he had also spoken with the wreath maker, the decision was made to admit him to the Critical Care Unit. When I stopped by to see him was rested in bed, sedated. He was on a fentanyl drip, I believe about 2 mcg/kg per hour. With regards to the patient's tobacco use/abuse history, he does have a 10 plus pack year tobacco smoking history, but the says he has quit smoking now. This really is as much of the history of presentation as I have. PAST MEDICAL HISTORY: COPD, diabetes, venous thromboembolic disease, congestive heart failure, hypertension, obstructive sleep apnea, obesity. PAST SURGICAL HISTORY: Family had denied. MEDICATIONS: He was on at the time I stopped by to see him, according to the medication administration record included the following: Tylenol 650 mg per rectum q. 6 hours p.r.n. mild pain or fevers, aspirin 81 mg p.o. daily, all p.o. meds via the feeding tube, aztreonam 1 gram IV q. 6 hours, fentanyl drip was going at 2 mcg/kg per hour, heparin 5000 units subQ q. 8 hours, insulin drip was going at about 3 units per hour, Levaquin 750 mg IV q. 48 hours scheduled, midodrine 10 mg p.o. t.i.d. All p.o. meds via the feeding tube. Morphine sulfate 2 mg IV every 4 hours p.r.n. moderate pain, sodium bicarbonate drip with 3 amps of sodium bicarbonate in sterile water was running at 200 mL per hour. He also received a one-time liter of sodium chloride running at 125 mL per hour, vancomycin 2 grams IV daily. ALLERGIES: PENICILLINS, nature of this allergy is unknown. DIET: Obese gentleman, acute weight loss or gain, history is unknown. FAMILY AND SOCIAL HISTORY: Apparently lives in the community, prior to this, he is on compensation. He is , has a 10 plus pack year tobacco smoking history. denies current tobacco use, illicit drug use or abuse or alcohol use. FAMILY HISTORY: Otherwise, noncontributory. REVIEW OF SYSTEMS: Unobtainable secondary to patient's medical and mental condition. Since he has been here, no gross hematochezia or melena, no gross hematuria, no hematemesis, no bloody tracheal secretions, no witnessed seizures. Review of systems otherwise unobtainable or as in body of history above. PHYSICAL EXAMINATION: VITAL SIGNS: On presentation, he was febrile, temperature 100.9 degrees Fahrenheit, pulse of 122, respiratory rate 16, blood pressure 111/60, O2 sats were 95%, inspired oxygen concentration at that time was not recorded. When I stopped by to see him, O2 sats were 92% that was on the assist control mode of ventilation, tidal volume 500, rate of 22, PEEP of 6 and 50% FIO2 at that time. When I saw him, he was on 25% FiO2. GENERAL: An elderly looking, middle-aged obese male. Normocephalic, atraumatic, on the mechanical ventilator without significant patient-ventilator dyssynchrony. HEENT: Anicteric. No conjunctival erythema. Oropharynx was moist. ET tube was taped at the lips around 24 cm. No gross jugular venous distention, no thyromegaly. He does have a large neck circumference. Grossly, there were no palpable lymph nodes in the supraclavicular or submandibular lymph node chains. LUNGS: Auscultation of both lung khan, good bilateral breath sounds, no wheezing. Slightly diminished left lower lobe air entry. HEART: Sounds 1 and 2 are heard at the time of my evaluation, regular rate and rhythm without overt rubs or murmurs. ABDOMEN: Soft, full, protuberant. Bowel sounds are positive, nontender, no palpable hepatosplenomegaly. EXTREMITIES: Without overt digital clubbing or cyanosis. Trace pedal edema. Pedal pulses are 2+ bilaterally. NEUROLOGIC: Pupils are equal, round, about 2-3 mm, sluggishly reactive to light. Extraocular muscle movements could not be assessed. He is sedated, but he had spontaneous movements to all extremities. PSYCHIATRIC: Mood and affect could not be assessed. He was sedated. SKIN: Normal turgor in the areas examined without overt cellulitis or rash. Please see the wound care nurses' notes for full description of his skin. LABORATORY DATA: From my review are as follows: Admission white cell count 12,700, hemoglobin 9.1, hematocrit 27.7, platelet count 257. No band forms on the manual differential. INR was 1.28. Arterial blood gas showed a pH of 7.34, pCO2 of 47, pO2 of 65 that was on 3 liters nasal cannula. He then decompensated, pH 7.23, pCO2 of 39, pO2 of 182 on 80% FiO2 at that time. The most recent blood gas, pH 7.32, pCO2 of 44, pO2 of 93 and that was on 50% FIO2 on the above-mentioned ventilator settings. Lactic acid was 2.9 at presentation, it peaked at 7.5, most recent 3.4, total bilirubin 1.6, AST 275, ALT 156. Ammonia 71. Troponin 0.493 at presentation. Albumin 2.6. LDL cholesterol 130. Lipase was 120. Urinalysis was negative for nitrites and leukocyte esterase and essentially bland. Tylenol and aspirin levels were nondetectable. Urine drug screen was presumptive positive for opiates. Two sets of blood cultures, no growth to date. Chest x-ray on presentation really cardiomegaly, otherwise mild interstitial edema. CT of his chest was done, appears to have been a noncontrast CT as mediastinal lipomatosis, some areas of left lower lobe atelectasis and suggestion of bronchiectatic change in the right lower lobe. There is volume loss in the left lung suggestive of some small pulmonary nodules, but difficult to tell at this point what the other processes is going on in the lungs. Chest x-ray this morning shows an endotracheal tube with tip of the lower level of the clavicular heads, gross cardiomegaly, blunting of the left costophrenic angle. Ultrasound of the abdomen and pelvis, right upper quadrant, essentially negative. Renal ultrasounds did not show any significant abnormalities. ASSESSMENT: 1. Acute hypoxemic respiratory failure. 2. Non-ST elevation myocardial infarction. 3. Acute kidney injury. 4. Severe sepsis. 5. Bilateral pneumonia, possibly aspiration. 6. History of congestive heart failure. 7. Diabetes type 2. 8. Acute encephalopathy, likely toxic metabolic. 9. Elevated serum transaminases, possible shock liver. 10. Anemia that is microcytic. 11. Leukocytosis. 12. [id number]-gy-zhqsra metabolic acidosis. 13. Lactic acidosis. PLAN: We will keep him on full mechanical ventilatory support in the short time, see if we can try and wean the rate down and prepare him for spontaneous breathing trial shortly. Bronchodilators will be ordered. Pulmonary hygiene will be per the respiratory therapist. Oxygen will be weaned to keep sats greater than or equal to about 90% acutely. Ventilator-associated pneumonia bundle has been introduced. We will continue empiric antibiotic therapies including community-acquired pneumonia therapy. I will defer to the infectious disease physician for further weaning. We will be getting a procalcitonin level to better evaluate the infectious potential of his leukocytosis. Acute coronary syndrome workup will be left to the wreath maker. Gentle volume hydration will be continued. We will continue alkalized fluids in the short time and continue the normal saline. I will defer also to the office secretary. Urine electrolytes will be reviewed. No acute indication for diuresis. Enteral nutrition will be the feeding modality of choice. He is on anticoagulation with heparin; however, with his history of deep venous thrombosis and the non-ST elevation ME. I will start IV heparin drip, PE protocol in the short time. He will be placed on GI prophylaxis also. Flu and pneumonia vaccination will be addressed per protocol. Vasopressors if started, will be weaned to keep mean arterial pressures greater than or equal to about 65 mmHg. Thank you very much for the consult, Dr. Gale, we will follow along and make further recommendations as picture progresses/becomes clearer. He is critically ill on life-sustaining interventions including full mechanical ventilatory support at very high risk of from cardiopulmonary and renal system decompensation. At this time, I spent about 35-40 minutes of critical care time without overlap and excluding any procedural time that may be necessary. TID: [id number] RECEIPT: [id number] ERROL/NATHALIE
[2021-03-03] MEDS: fentaNYL DRIP Premix 2,000 MCG/100 ML BAG IV SCH ×4 (00:11→22:52)
[2021-03-03] MEDS: AZTREONAM/NS 1 GM/50 ML 1 GM/50 ML VIAL IV SCH ×4 (00:23→17:34)
[2021-03-03] MEDS ORDERED: D5W/0.45% NACL/KCL 20 MEQ 20 MEQ/1,000 ML BAG IV SCH (03:00)
[2021-03-03 05:09] LABS: Basophils # (Auto) 0.1 K/mm3 (0.0-0.1); Basophils % (Auto) 0.7 % (0.0-1.8); Hematocrit 26.9 % (35.5-45.6); Hemoglobin 8.7 gm/dl (11.8-15.2); Lymphocytes % (Auto) 14.4 % (13.4-35.0); Mean Corpuscular HGB Conc 32 % (32-34); Mean Corpuscular Volume 100 fl (84-94); Monocytes # (Auto) 0.8 K/mm3 (0.0-0.8); Monocytes % (Auto) 5.9 % (0.0-7.3); Platelet Count 236 K/mm3 (140-440); Red Blood Count 2.69 M/mm3 (3.65-5.03); Red Cell Distribution Width 18.5 % (13.2-15.2)
[2021-03-03 05:28] LABS: Calcium 7.3 mg/dL (8.4-10.2)
[2021-03-03 05:33] LABS: Albumin 2.4 g/dL (3.9-5); Bilirubin,Direct 0.9 mg/dL (0-0.2)
[2021-03-03] MEDS: SODIUM BICARBONATE 150 MEQ in WATER FOR INJECTION (PF) 1,000 ML IV SCH ×2 (06:30→12:44)
[2021-03-03] MEDS: MIDODRINE 5 MG TAB PO SCH ×3 (08:31→17:18)
--- NOTE | 2021-03-03 08:42 | Consultation ---
DATE OF CONSULTATION: 03/02/2021 REFERRING PHYSICIAN: Belén Joya MD INDICATION: Increased liver function tests. HISTORY OF PRESENT ILLNESS: The patient is a 51-year-old black male with history of COPD, CHF, diabetes, peripheral vascular disease, hypertension, been seen by GI for increased liver function tests. The patient was subsequently . The patient came to the Emergency Room with hypoxia as well as altered mental status after recently being discharged from [facility] less than 24 hours prior for CHF exacerbation. The patient was noted to have decreased as well as hypertension when brought to the Emergency Room. The patient subsequently was intubated and GI consulted. Liver numbers were noted to be elevated. No history per patient, but per chart, no known history of liver disease. Denies any other specific complaints. PAST MEDICAL HISTORY: 1. DVT. 2. COPD. 3. Heart failure. 4. Hypertension. 5. Asthma. MEDICATIONS: Reviewed and updated in chart. ALLERGIES: PENICILLIN. SOCIAL HISTORY: Reported social alcohol. No tobacco. FAMILY HISTORY: Negative for colon cancer, IBD or liver disease. REVIEW OF SYSTEMS: GENERAL: Positive weakness. HEENT: Denies visual complaints or tinnitus. PULMONARY: Rhonchi. CARDIOVASCULAR: Regular rhythm. Normal S1, S2. ABDOMEN: Positive bowel sounds. SKIN: No obvious rash. PHYSICAL EXAMINATION: VITAL SIGNS: Temperature 98.0, pulse 87, respirations 18, pressure 135/86. GENERAL: Intubated and sedated, obese male, in no acute distress. HEENT: Pupils round and reactive. PULMONARY: Clear to auscultation bilaterally. CARDIOVASCULAR: Regular rate and rhythm. ABDOMEN: Soft, somewhat obese. SKIN: No obvious rashes. LABORATORY DATA: Pertinent for a white count of 12.7, hemoglobin and hematocrit of 9.1 and 27.7, platelet count of 257. Chem-7: Sodium of 132, potassium 4.7, chloride 93, CO2 20, BUN and creatinine are 46 and 1.9. AST and ALT of 275 and 156, alkaline phosphatase of 282 with ammonia of 71 with a total bilirubin of 1.6. CT scan abdomen and pelvis with contrast on 03/01/2021 showed several pulmonary nodules, no acute abdominal pelvic findings. ASSESSMENT: A 51-year-old male with multiple medical problems as noted above, now presented with hypertension and shortness of breath and had to be intubated, now with noted increased liver function tests. Liver function tests probably related to shock liver versus secondary congestion from heart failure versus med induced versus other. It is unclear as to what the patient's labs were just previously when he left [facility]. PLAN: 1. We will get [facility] labs and review. 2. Basic liver workup including acute hepatitis panel as well as liver ultrasound with Doppler. 3. Hemodynamic stability per primary team. 4. No plans for liver biopsy. 5. Suspect best treatment is hemodynamic stability and we will follow that. 6. We will follow further recommendation based on progress. TID: [id number] RECEIPT: [id number] VIPIN/TAY/SUSAN
--- NOTE | 2021-03-03 08:51 | XRay Report ---
CHEST 1 VIEW 03/03/2021 7:43 AM INDICATION / CLINICAL INFORMATION: follow up respiratory failure. COMPARISON: None available. FINDINGS: SUPPORT DEVICES: Stable, satisfactory device positioning. HEART / MEDIASTINUM: No significant abnormality. LUNGS / PLEURA: No significant pulmonary or pleural abnormality. No pneumothorax. ADDITIONAL FINDINGS: No significant additional findings. IMPRESSION: 1. No acute findings. Signer Name: Jasper Argueta MD Signed: 03/03/2021 8:47 AM Workstation Name: [id number]
[2021-03-03] MEDS: ASPIRIN EC 81 MG TAB PO SCH (09:57)
[2021-03-03] MEDS: SENNOSIDES/DOCUSATE SODIUM 8.6/50 MG TAB FEEDTUBE SCH ×2 (09:57→22:03)
[2021-03-03] MEDS: FAMOTIDINE 20 MG/2 ML INJ IV SCH ×2 (09:57→22:03)
[2021-03-03] MEDS: HEPARIN/ 0.45% NACL DRIP 25,000 UNIT/500 ML BAG IV SCH (10:14)
--- NOTE | 2021-03-03 10:28 | Progress Note ---
Assessment and Plan 51-year-old male with acute on chronic respiratory failure acute on chronic renal sufficiency was recently discharged from the hospital as per the history of heart failure but but has a normal LV function echocardiogram done in December with Lasix found to be hypoxemia with acute renal failure and pneumonia treated for sepsis on IV fluids and high-dose antibiotics. Is on a ventilator for respiratory failure. Waiting on repeat echocardiogram patient's kidney function mildly improved patient still requiring 55% of oxygen on the vent. Discussed with patient's nurse to start tube feedings. Patient has anemia difficult start IV anticoagulation and non-STEMI type II - Patient Problems (1) NSTEMI (non-ST elevated myocardial infarction) Current Visit: Yes Status: Acute (2) Acute renal failure Current Visit: Yes Status: Acute Qualifiers: Acute renal failure type: with acute tubular necrosis Qualified Code(s): N17.0 - Acute kidney failure with tubular necrosis (3) Encephalopathy Current Visit: Yes Status: Acute (4) Pneumonia Current Visit: Yes Status: Acute Qualifiers: Aspiration pneumonia type: unspecified Laterality: unspecified laterality Lung location: unspecified part of lung (5) Respiratory failure Current Visit: Yes Status: Acute Qualifiers: Chronicity: acute Respiratory failure complication: hypoxia Qualified Code(s): J96.01 - Acute respiratory failure with hypoxia (6) Severe sepsis Current Visit: Yes Status: Acute (7) Transaminitis Current Visit: Yes Status: Acute Subjective Date of service: 03/03/21 Principal diagnosis: nonstemi Interval history: sedated on vent Objective Vital Signs Temp Pulse Pulse Resp BP Pulse Ox 03/03/21 10:00 108 H 12 117/73 03/03/21 09:00 81 22 117/73 84 03/03/21 08:00 96 H 96 H 22 156/97 96 03/03/21 07:17 90 155/99 100 03/03/21 07:00 97.6 F 96 H 21 155/99 93 03/03/21 06:00 102 H 22 180/117 03/03/21 05:00 75 22 123/83 03/03/21 04:13 75 129/84 95 03/03/21 04:00 80 22 129/84 93 03/03/21 03:27 98.7 F 03/03/21 03:00 78 22 112/67 92 03/03/21 02:00 107 H 15 113/89 03/03/21 01:00 77 22 112/73 94 03/03/21 00:32 77 116/82 94 03/03/21 00:00 77 22 116/82 93 03/02/21 23:55 98.0 F 03/02/21 23:00 77 22 100/64 97 03/02/21 22:00 80 22 106/71 96 03/02/21 21:00 81 22 99/62 96 03/02/21 20:00 98.8 F 85 22 109/70 93 03/02/21 19:09 94 H 130/88 94 03/02/21 19:00 93 H 16 130/88 03/02/21 18:00 87 23 99/60 03/02/21 17:00 113 H 22 150/87 94 03/02/21 16:00 97.5 F L 90 90 22 109/70 93 03/02/21 15:02 101 H 135/86 95 03/02/21 15:00 101 H 21 135/86 94 03/02/21 14:00 119 H 8 L 153/109 93 03/02/21 13:00 86 22 101/63 95 03/02/21 12:00 98 F 88 88 22 105/68 98 03/02/21 11:00 87 22 105/67 98 03/02/21 10:59 88 103/69 98 - Physical Examination HEENT: Positive: PERRL, Mucus Membranes Moist Neck: Positive: neck supple, trachea midline Cardiac: Positive: Reg Rate and Rhythm Lungs: Positive: Decreased Breath Sounds Neuro: Positive: Other (sedated) Abdomen: Positive: Soft, Active Bowel Sounds. Negative: Tender, Distended Skin: Positive: Clear Incision: Cardiac Cath Site Musculoskeletal: No Pain, Normal Range of Motion Extremities: Present: normal. Absent: edema - Labs and Meds Cardiac Enzymes 03/03/21 Range/Units 04:06 AST 208 H (5-40) units/L Coagulation 03/02/21 Range/Units 16:28 PT 15.2 H (12.2-14.9) Sec. INR 1.14 H (0.87-1.13) APTT 36.6 (24.2-36.6) Sec. CBC 03/02/21 03/03/21 Range/Units 16:28 03:50 WBC 13.7 H (4.5-11.0) K/mm3 RBC 2.69 L (3.65-5.03) M/mm3 Hgb 8.8 L 8.7 L (11.8-15.2) gm/dl Hct 26.0 L 26.9 L (35.5-45.6) % Plt Count 238 236 (140-440) K/mm3 Lymph # (Auto) 2.0 (1.2-5.4) K/mm3 Crowley # (Auto) 0.8 (0.0-0.8) K/mm3 Eos # (Auto) 0.0 (0.0-0.4) K/mm3 Baso # (Auto) 0.1 (0.0-0.1) K/mm3 Comprehensive Metabolic Panel 03/02/21 03/02/21 03/03/21 Range/Units 10:48 16:28 03:50 Sodium 132 L 135 L 139 (137-145) mmol/L Potassium 4.7 4.0 4.0 (3.6-5.0) mmol/L Chloride 93.3 L 93.8 L 94.2 L (98-107) mmol/L Carbon Dioxide 20 L 25 28 (22-30) mmol/L BUN 46 H 48 H 45 H (9-20) mg/dL Creatinine 1.9 H 1.8 H 1.9 H (0.8-1.3) mg/dL Glucose 503 H* 454 H 261 H (75-100) mg/dL Calcium 7.9 L 7.6 L 7.3 L (8.4-10.2) mg/dL Direct Bilirubin (0-0.2) mg/dL Indirect Bilirubin mg/dL AST (5-40) units/L ALT (7-56) units/L Alkaline Phosphatase (35-129) units/L Total Protein (6.3-8.2) g/dL Albumin (3.9-5) g/dL 03/03/21 Range/Units 04:06 Sodium (137-145) mmol/L Potassium (3.6-5.0) mmol/L Chloride (98-107) mmol/L Carbon Dioxide (22-30) mmol/L BUN (9-20) mg/dL Creatinine (0.8-1.3) mg/dL Glucose (75-100) mg/dL Calcium (8.4-10.2) mg/dL Direct Bilirubin 0.9 H (0-0.2) mg/dL Indirect Bilirubin 0.3 mg/dL AST 208 H (5-40) units/L ALT 148 H (7-56) units/L Alkaline Phosphatase 251 H (35-129) units/L Total Protein 5.5 L (6.3-8.2) g/dL Albumin 2.4 L (3.9-5) g/dL - Imaging and Cardiology Echo: pending - Telemetry EKG Rhythm: Sinus Rhythm
[2021-03-03] MEDS ORDERED: SIMPLE SYRUP 15 ML FEEDTUBE PRN ×2 (10:53)
[2021-03-03] MEDS ORDERED: LIPASE 10,500/PROTEASE 25,000/AMYLASE 43,750 (UNITS) DR CAP FEEDTUBE PRN (10:53)
[2021-03-03] MEDS ORDERED: SODIUM BICARBONATE 325 MG TAB FEEDTUBE PRN (10:53)
[2021-03-03] MEDS: fentaNYL 100 MCG/2 ML INJ IV PRN (12:00)
--- NOTE | 2021-03-03 15:22 | Progress Note ---
Assessment and Plan 51-year-old -[place] male with known history of COPD with chronic respiratory failure, CHFpEF, diabetes mellitus, DVT and hypertension was brought into the emergency room by EMS for altered mental status and hypoxia. on arrival of EMS oxygen saturation was about 88% on room air, blood pressure was said to be about 88/50 mmHg. Work-up in the emergency room reveals leukocytosis of 12.7, hemoglobin of 9.1 and hematocrit of 27.7, sodium of 132, lactic acid of 2.90. Liver enzymes were abnormally elevated, troponin was also bumped at 0.493. CT of the chest shows findings concerning for atelectasis and or infiltrate, CT of the head was unremarkable. Patient was in severe respiratory distress upon arrival in the emergency room and subsequently intubated. Patient currently being admitted for mainly severe sepsis, respiratory failure, pneumonia and ALPHONSO. A/P --Bilateral pneumonia Likely hospital-acquired Patient placed on empiric IV antibiotics In view of his recent hospital visit, he has been placed on antibiotics to cover hospital acquired pneumonia. Covid test is negative --Acute on chronic hypoxic respiratory failure Possibly secondary to the underlying pneumonia and history of CHFpEF. Patient currently intubated and sedated. Consult placed to the wedger machine for evaluation. -- Acute on chronic renal failure Likely due to acute tubular necrosis consulted to nephrology for evaluation and recommendation. Patient had a recent increase of his BUN and creatinine sometime in December 2020. Last creatinine was noted to be 1.3 Continue IV fluid, renal function improving -- CHF (congestive heart failure) with pEF Patient was recently discharged from [facility] and EF was normal Attempts will be made to retrieve medical records. We will schedule for echocardiogram. Cardiology consult requested Patient appears to be euvolemic -- DM2 (diabetes mellitus, type 2) hyperglycemia and metabolic acidosis Patient will likely converting to DKA We will place on insulin drip, monitor blood glucose careful -- Severe sepsis Patient currently on IV fluid and empiric IV antibiotics. Follow cultures --Acute metabolic encephalopathy Possibly secondary to the underlying pneumonia and hyperammonemia. Follow ammonia level -- Transaminitis Etiology unclear. Ultrasound of right upper quadrant to be requested Consult placed to gastroenterology for evaluation. -- Elevated troponin Possibly NSTEMI type II due to severe sepsis Cardiology evaluation requested. 2D echo ordered Placed on heparin drip -- DVT prophylaxis Patient placed on heparin drip. --Patient is a full code. The high probability of a clinically significant, sudden or life threatening deterioration of the [respiratory, RN NAVIGATOR, CVS, renal, hepatobiliary] system(s) required my full and direct attention, intervention and personal management. The aggregate critical care time was [35] minutes. This time is in addition to time spent performing reported procedures but includes the following: [x] Data Review and interpretation [x] Patient assessment and monitoring of vital signs [x] Documentation [x] Medication orders and management Daily clinical course; 03/04/21: Patient remains intubated, continue on heparin drip, monitor H&H and BMP. Continue empiric antibiotics, ID following. Follow ammonia level and LFT. According to cardiology patient indeed had preserved EF during his recent admission to [place]. Plan to repeat 2D echo. Critical care following, wean off from vent as tolerated. Subjective Date of service: 03/03/21 Principal diagnosis: nonstemi Interval history: Patient seen and examined. Medical records and medication list reviewed. No acute event overnight noted by the RN. Vitals noted Patient remains intubated and sedated Discussed plan of care at bedside with patient's RN. Objective - Exam Narrative Exam: GENERAL: Morbidly obese male lying on bed intubated and sedated HEENT: Normocephalic. Atraumatic. No conjunctival congestion or icterus. Patient has moist mucous membranes. NECK: Supple. Trachea midline. Trach tube in place CHEST/LUNGS: Coarse breath sounds auscultated bilaterally, mechanically ventilated HEART/CARDIOVASCULAR: S1 and S2 positive. ABDOMEN: Abdomen is soft, nontender. Patient has normal bowel sounds. SKIN: There is no rash. Warm and dry. NEURO: Unable to assess, patient is intubated MUSCULOSKELETAL: No joint effusion or tenderness. EXTRIMITY: No edema, no cyanosis or clubbing. PSYCH: Unable to assess - Constitutional Vitals: Vital Signs - 12hr 03/03/21 03/03/21 03/03/21 03:27 04:00 04:13 Temperature 98.7 F Pulse Rate 80 75 Pulse Rate [ From Monitor] Respiratory 22 Rate Blood Pressure 129/84 129/84 O2 Sat by Pulse 93 95 Oximetry 03/03/21 03/03/21 03/03/21 05:00 06:00 07:00 Temperature 97.6 F Pulse Rate 75 102 H 96 H Pulse Rate [ From Monitor] Respiratory 22 22 21 Rate Blood Pressure 123/83 180/117 155/99 O2 Sat by Pulse 93 Oximetry 03/03/21 03/03/21 03/03/21 07:17 08:00 09:00 Temperature Pulse Rate 90 96 H 81 Pulse Rate [ 96 H From Monitor] Respiratory 22 22 Rate Blood Pressure 155/99 156/97 117/73 O2 Sat by Pulse 100 96 84 Oximetry 03/03/21 03/03/21 03/03/21 10:00 11:00 11:52 Temperature 98.2 F Pulse Rate 108 H 110 H Pulse Rate [ From Monitor] Respiratory 12 10 L Rate Blood Pressure 117/73 167/108 O2 Sat by Pulse 96 Oximetry 03/03/21 03/03/21 03/03/21 12:00 13:00 14:00 Temperature Pulse Rate 139 H 115 H 91 H Pulse Rate [ 135 H From Monitor] Respiratory 19 12 22 Rate Blood Pressure 167/108 157/102 107/61 O2 Sat by Pulse 96 98 93 Oximetry 03/03/21 15:17 Temperature Pulse Rate 93 H Pulse Rate [ From Monitor] Respiratory Rate Blood Pressure 99/59 O2 Sat by Pulse 95 Oximetry - Labs CBC & Chem 7: 03/04/21 10:17 03/04/21 10:17 Labs: Abnormal lab results 03/02/21 03/02/21 03/02/21 Range/Units 15:33 16:28 16:28 WBC (4.5-11.0) K/mm3 RBC (3.65-5.03) M/mm3 Hgb 8.8 L (11.8-15.2) gm/dl Hct 26.0 L (35.5-45.6) % MCV (84-94) fl RDW (13.2-15.2) % Seg Neutrophils % (40.0-70.0) % Seg Neutrophils # (1.8-7.7) K/mm3 PT (12.2-14.9) Sec. INR (0.87-1.13) POC ABG pCO2 (32.0-48.0) mmHg POC ABG pO2 (83-108) mmHg ABG Hemoglobin (12.0-17.5) ABG Sodium (136.0-145.0) mmol/L ABG Chloride (98-107) mmol/L ABG Glucose (65-95) mg/dL Carboxyhemoglobin (0.5-1.5) Sodium 135 L (137-145) mmol/L Chloride 93.8 L (98-107) mmol/L BUN 48 H (9-20) mg/dL Creatinine 1.8 H (0.8-1.3) mg/dL Glucose 454 H (75-100) mg/dL POC Glucose 445 H (70-105) mg/dL Calcium 7.6 L (8.4-10.2) mg/dL Direct Bilirubin (0-0.2) mg/dL AST (5-40) units/L ALT (7-56) units/L Alkaline Phosphatase (35-129) units/L Total Protein (6.3-8.2) g/dL Albumin (3.9-5) g/dL Arterial Blood Glucose (65-95) mg/dL Arterial Blood Ionized Calcium (4.6-5.3) mg/dL 03/02/21 03/02/21 03/02/21 Range/Units 16:28 17:39 18:52 WBC (4.5-11.0) K/mm3 RBC (3.65-5.03) M/mm3 Hgb (11.8-15.2) gm/dl Hct (35.5-45.6) % MCV (84-94) fl RDW (13.2-15.2) % Seg Neutrophils % (40.0-70.0) % Seg Neutrophils # (1.8-7.7) K/mm3 PT 15.2 H (12.2-14.9) Sec. INR 1.14 H (0.87-1.13) POC ABG pCO2 (32.0-48.0) mmHg POC ABG pO2 (83-108) mmHg ABG Hemoglobin (12.0-17.5) ABG Sodium (136.0-145.0) mmol/L ABG Chloride (98-107) mmol/L ABG Glucose (65-95) mg/dL Carboxyhemoglobin (0.5-1.5) Sodium (137-145) mmol/L Chloride (98-107) mmol/L BUN (9-20) mg/dL Creatinine (0.8-1.3) mg/dL Glucose (75-100) mg/dL POC Glucose 404 H 357 H (70-105) mg/dL Calcium (8.4-10.2) mg/dL Direct Bilirubin (0-0.2) mg/dL AST (5-40) units/L ALT (7-56) units/L Alkaline Phosphatase (35-129) units/L Total Protein (6.3-8.2) g/dL Albumin (3.9-5) g/dL Arterial Blood Glucose (65-95) mg/dL Arterial Blood Ionized Calcium (4.6-5.3) mg/dL 03/02/21 03/02/21 03/02/21 Range/Units 20:09 21:03 22:00 WBC (4.5-11.0) K/mm3 RBC (3.65-5.03) M/mm3 Hgb (11.8-15.2) gm/dl Hct (35.5-45.6) % MCV (84-94) fl RDW (13.2-15.2) % Seg Neutrophils % (40.0-70.0) % Seg Neutrophils # (1.8-7.7) K/mm3 PT (12.2-14.9) Sec. INR (0.87-1.13) POC ABG pCO2 (32.0-48.0) mmHg POC ABG pO2 (83-108) mmHg ABG Hemoglobin (12.0-17.5) ABG Sodium (136.0-145.0) mmol/L ABG Chloride (98-107) mmol/L ABG Glucose (65-95) mg/dL Carboxyhemoglobin (0.5-1.5) Sodium (137-145) mmol/L Chloride (98-107) mmol/L BUN (9-20) mg/dL Creatinine (0.8-1.3) mg/dL Glucose (75-100) mg/dL POC Glucose 347 H 307 H 270 H (70-105) mg/dL Calcium (8.4-10.2) mg/dL Direct Bilirubin (0-0.2) mg/dL AST (5-40) units/L ALT (7-56) units/L Alkaline Phosphatase (35-129) units/L Total Protein (6.3-8.2) g/dL Albumin (3.9-5) g/dL Arterial Blood Glucose (65-95) mg/dL Arterial Blood Ionized Calcium (4.6-5.3) mg/dL 03/02/21 03/03/21 03/03/21 Range/Units 22:55 00:02 00:57 WBC (4.5-11.0) K/mm3 RBC (3.65-5.03) M/mm3 Hgb (11.8-15.2) gm/dl Hct (35.5-45.6) % MCV (84-94) fl RDW (13.2-15.2) % Seg Neutrophils % (40.0-70.0) % Seg Neutrophils # (1.8-7.7) K/mm3 PT (12.2-14.9) Sec. INR (0.87-1.13) POC ABG pCO2 (32.0-48.0) mmHg POC ABG pO2 (83-108) mmHg ABG Hemoglobin (12.0-17.5) ABG Sodium (136.0-145.0) mmol/L ABG Chloride (98-107) mmol/L ABG Glucose (65-95) mg/dL Carboxyhemoglobin (0.5-1.5) Sodium (137-145) mmol/L Chloride (98-107) mmol/L BUN (9-20) mg/dL Creatinine (0.8-1.3) mg/dL Glucose (75-100) mg/dL POC Glucose 237 H 252 H 214 H (70-105) mg/dL Calcium (8.4-10.2) mg/dL Direct Bilirubin (0-0.2) mg/dL AST (5-40) units/L ALT (7-56) units/L Alkaline Phosphatase (35-129) units/L Total Protein (6.3-8.2) g/dL Albumin (3.9-5) g/dL Arterial Blood Glucose (65-95) mg/dL Arterial Blood Ionized Calcium (4.6-5.3) mg/dL 03/03/21 03/03/21 03/03/21 Range/Units 02:01 03:07 03:10 WBC (4.5-11.0) K/mm3 RBC (3.65-5.03) M/mm3 Hgb (11.8-15.2) gm/dl Hct (35.5-45.6) % MCV (84-94) fl RDW (13.2-15.2) % Seg Neutrophils % (40.0-70.0) % Seg Neutrophils # (1.8-7.7) K/mm3 PT (12.2-14.9) Sec. INR (0.87-1.13) POC ABG pCO2 50.9 H (32.0-48.0) mmHg POC ABG pO2 81.9 L (83-108) mmHg ABG Hemoglobin 8.7 L (12.0-17.5) ABG Sodium 134.2 L (136.0-145.0) mmol/L ABG Chloride 96.0 L (98-107) mmol/L ABG Glucose 279 H (65-95) mg/dL Carboxyhemoglobin 0.4 L (0.5-1.5) Sodium (137-145) mmol/L Chloride (98-107) mmol/L BUN (9-20) mg/dL Creatinine (0.8-1.3) mg/dL Glucose (75-100) mg/dL POC Glucose 261 H 276 H (70-105) mg/dL Calcium (8.4-10.2) mg/dL Direct Bilirubin (0-0.2) mg/dL AST (5-40) units/L ALT (7-56) units/L Alkaline Phosphatase (35-129) units/L Total Protein (6.3-8.2) g/dL Albumin (3.9-5) g/dL Arterial Blood Glucose 279 H (65-95) mg/dL Arterial Blood Ionized Calcium 3.9 L (4.6-5.3) mg/dL 03/03/21 03/03/21 03/03/21 Range/Units 03:50 03:50 04:06 WBC 13.7 H (4.5-11.0) K/mm3 RBC 2.69 L (3.65-5.03) M/mm3 Hgb 8.7 L (11.8-15.2) gm/dl Hct 26.9 L (35.5-45.6) % MCV 100 H (84-94) fl RDW 18.5 H (13.2-15.2) % Seg Neutrophils % 79.0 H (40.0-70.0) % Seg Neutrophils # 10.8 H (1.8-7.7) K/mm3 PT (12.2-14.9) Sec. INR (0.87-1.13) POC ABG pCO2 (32.0-48.0) mmHg POC ABG pO2 (83-108) mmHg ABG Hemoglobin (12.0-17.5) ABG Sodium (136.0-145.0) mmol/L ABG Chloride (98-107) mmol/L ABG Glucose (65-95) mg/dL Carboxyhemoglobin (0.5-1.5) Sodium (137-145) mmol/L Chloride 94.2 L (98-107) mmol/L BUN 45 H (9-20) mg/dL Creatinine 1.9 H (0.8-1.3) mg/dL Glucose 261 H (75-100) mg/dL POC Glucose (70-105) mg/dL Calcium 7.3 L (8.4-10.2) mg/dL Direct Bilirubin 0.9 H (0-0.2) mg/dL AST 208 H (5-40) units/L ALT 148 H (7-56) units/L Alkaline Phosphatase 251 H (35-129) units/L Total Protein 5.5 L (6.3-8.2) g/dL Albumin 2.4 L (3.9-5) g/dL Arterial Blood Glucose (65-95) mg/dL Arterial Blood Ionized Calcium (4.6-5.3) mg/dL 03/03/21 03/03/21 03/03/21 Range/Units 04:32 05:23 06:06 WBC (4.5-11.0) K/mm3 RBC (3.65-5.03) M/mm3 Hgb (11.8-15.2) gm/dl Hct (35.5-45.6) % MCV (84-94) fl RDW (13.2-15.2) % Seg Neutrophils % (40.0-70.0) % Seg Neutrophils # (1.8-7.7) K/mm3 PT (12.2-14.9) Sec. INR (0.87-1.13) POC ABG pCO2 (32.0-48.0) mmHg POC ABG pO2 (83-108) mmHg ABG Hemoglobin (12.0-17.5) ABG Sodium (136.0-145.0) mmol/L ABG Chloride (98-107) mmol/L ABG Glucose (65-95) mg/dL Carboxyhemoglobin (0.5-1.5) Sodium (137-145) mmol/L Chloride (98-107) mmol/L BUN (9-20) mg/dL Creatinine (0.8-1.3) mg/dL Glucose (75-100) mg/dL POC Glucose 256 H 214 H 249 H (70-105) mg/dL Calcium (8.4-10.2) mg/dL Direct Bilirubin (0-0.2) mg/dL AST (5-40) units/L ALT (7-56) units/L Alkaline Phosphatase (35-129) units/L Total Protein (6.3-8.2) g/dL Albumin (3.9-5) g/dL Arterial Blood Glucose (65-95) mg/dL Arterial Blood Ionized Calcium (4.6-5.3) mg/dL 03/03/21 03/03/21 03/03/21 Range/Units 07:07 07:58 08:58 WBC (4.5-11.0) K/mm3 RBC (3.65-5.03) M/mm3 Hgb (11.8-15.2) gm/dl Hct (35.5-45.6) % MCV (84-94) fl RDW (13.2-15.2) % Seg Neutrophils % (40.0-70.0) % Seg Neutrophils # (1.8-7.7) K/mm3 PT (12.2-14.9) Sec. INR (0.87-1.13) POC ABG pCO2 (32.0-48.0) mmHg POC ABG pO2 (83-108) mmHg ABG Hemoglobin (12.0-17.5) ABG Sodium (136.0-145.0) mmol/L ABG Chloride (98-107) mmol/L ABG Glucose (65-95) mg/dL Carboxyhemoglobin (0.5-1.5) Sodium (137-145) mmol/L Chloride (98-107) mmol/L BUN (9-20) mg/dL Creatinine (0.8-1.3) mg/dL Glucose (75-100) mg/dL POC Glucose 237 H 227 H 215 H (70-105) mg/dL Calcium (8.4-10.2) mg/dL Direct Bilirubin (0-0.2) mg/dL AST (5-40) units/L ALT (7-56) units/L Alkaline Phosphatase (35-129) units/L Total Protein (6.3-8.2) g/dL Albumin (3.9-5) g/dL Arterial Blood Glucose (65-95) mg/dL Arterial Blood Ionized Calcium (4.6-5.3) mg/dL 03/03/21 03/03/21 03/03/21 Range/Units 09:52 10:55 11:44 WBC (4.5-11.0) K/mm3 RBC (3.65-5.03) M/mm3 Hgb (11.8-15.2) gm/dl Hct (35.5-45.6) % MCV (84-94) fl RDW (13.2-15.2) % Seg Neutrophils % (40.0-70.0) % Seg Neutrophils # (1.8-7.7) K/mm3 PT (12.2-14.9) Sec. INR (0.87-1.13) POC ABG pCO2 (32.0-48.0) mmHg POC ABG pO2 (83-108) mmHg ABG Hemoglobin (12.0-17.5) ABG Sodium (136.0-145.0) mmol/L ABG Chloride (98-107) mmol/L ABG Glucose (65-95) mg/dL Carboxyhemoglobin (0.5-1.5) Sodium (137-145) mmol/L Chloride (98-107) mmol/L BUN (9-20) mg/dL Creatinine (0.8-1.3) mg/dL Glucose (75-100) mg/dL POC Glucose 207 H 198 H 210 H (70-105) mg/dL Calcium (8.4-10.2) mg/dL Direct Bilirubin (0-0.2) mg/dL AST (5-40) units/L ALT (7-56) units/L Alkaline Phosphatase (35-129) units/L Total Protein (6.3-8.2) g/dL Albumin (3.9-5) g/dL Arterial Blood Glucose (65-95) mg/dL Arterial Blood Ionized Calcium (4.6-5.3) mg/dL 03/03/21 03/03/21 03/03/21 Range/Units 12:53 13:53 14:58 WBC (4.5-11.0) K/mm3 RBC (3.65-5.03) M/mm3 Hgb (11.8-15.2) gm/dl Hct (35.5-45.6) % MCV (84-94) fl RDW (13.2-15.2) % Seg Neutrophils % (40.0-70.0) % Seg Neutrophils # (1.8-7.7) K/mm3 PT (12.2-14.9) Sec. INR (0.87-1.13) POC ABG pCO2 (32.0-48.0) mmHg POC ABG pO2 (83-108) mmHg ABG Hemoglobin (12.0-17.5) ABG Sodium (136.0-145.0) mmol/L ABG Chloride (98-107) mmol/L ABG Glucose (65-95) mg/dL Carboxyhemoglobin (0.5-1.5) Sodium (137-145) mmol/L Chloride (98-107) mmol/L BUN (9-20) mg/dL Creatinine (0.8-1.3) mg/dL Glucose (75-100) mg/dL POC Glucose 203 H 210 H 187 H (70-105) mg/dL Calcium (8.4-10.2) mg/dL Direct Bilirubin (0-0.2) mg/dL AST (5-40) units/L ALT (7-56) units/L Alkaline Phosphatase (35-129) units/L Total Protein (6.3-8.2) g/dL Albumin (3.9-5) g/dL Arterial Blood Glucose (65-95) mg/dL Arterial Blood Ionized Calcium (4.6-5.3) mg/dL HEART Score - HEART Score Troponin: Troponin T 0.484 ng/mL (0.00-0.029) H* 03/01/21 20:55
--- NOTE | 2021-03-03 15:26 | Progress Note ---
Assessment and Plan Acute hypoxemic respiratory failure NSTEMI Acute kidney injury Severe sepsis Bilateral pneumonia H/O congestive heart failure Diabetes type 2 Acute encephalopathy Elevated serum transaminases Anemia that is microcytic Leukocytosis Metabolic acidosis Lactic acidosis - advance ETT 1-2 cm and follow repeat am CXR - tighten glycemic control (Lantus 5 units qhs) - continue volume resuscitation re: sepsis - repeat lactate level in am - continue care as below otherwise; - continue Daily SAT and SBT assessment as tolerated - continue to wean supplemental oxygen for target O2 sat's > 90% acutely - VAP bundle addressed - continue lung protective strategies - continue bronchodilators with pulmonary hygiene per RT - wean per pulmonary driven protocols otherwise - continue accuchecks with glycemic control per SSI (While critically ill target blood glucose of 140-180 mg/dL; avoid hypoglycemia) - sedation prn for target RASS 0 to -1 - avoid nephrotoxins, renally dose all medications - continue to avoid benzodiazepine's, reduce the possibility of delirium - complete AB's per ID rec's (Vancomycin, Levaquin) - prn analgesia per CPOT score - Maintenance of sleep-wake cycle, avoid delirium - continue enteral nutritional support at goal rate as tolerated - G.I. & VTE prophylaxis - PT/OT/ROM exercises - continue mobility protocols for pressure ulcer prophylaxis - Monitor hemodynamics closely - continue other care per attending / other consultants - discharge planning ongoing concurrently .... Re-evaluate in am & prn CONDITION: CRITICAL PROGNOSIS: GUARDED CODE STATUS: FULL CODE The high probability of a clinically significant, sudden or life-threatening deterioration of the [respiratory, cardiovascular & neurologic] system(s) required my full and direct attention, intervention and personal management. The aggregate critical care time was [33] minutes without overlap. Time includes spent on; [x] Data Review and interpretation [x] Patient assessment and monitoring of vital signs [x] Documentation [x] Medication orders and management Subjective Date of service: 03/03/21 Principal diagnosis: Ac hypoxemic resp failure; NSTEMI; ALPHONSO; Sepsis; PNA; CHF; DM II; AMS Interval history: Patient is seen today for: Acute hypoxemic respiratory failure; NSTEMI; ALPHONSO; Severe sepsis; Pneumonia; CHF; DM II; Acute encephalopathy Seen and examined at bedside; 24hour events reviewed; nursing and respiratory care staff consulted; no adverse overnight events reported to me; resting peacefully in bed; tolerated 4 hours on PSV trial earlier but work of breathing increased and he is back on AC mode; sedated; no N/V/F/C; no vasopressors Objective Vital Signs - 12hr 03/03/21 03/03/21 03/03/21 03:27 04:00 04:13 Temperature 98.7 F Pulse Rate 80 75 Pulse Rate [ From Monitor] Respiratory 22 Rate Blood Pressure 129/84 129/84 O2 Sat by Pulse 93 95 Oximetry 03/03/21 03/03/21 03/03/21 05:00 06:00 07:00 Temperature 97.6 F Pulse Rate 75 102 H 96 H Pulse Rate [ From Monitor] Respiratory 22 22 21 Rate Blood Pressure 123/83 180/117 155/99 O2 Sat by Pulse 93 Oximetry 03/03/21 03/03/21 03/03/21 07:17 08:00 09:00 Temperature Pulse Rate 90 96 H 81 Pulse Rate [ 96 H From Monitor] Respiratory 22 22 Rate Blood Pressure 155/99 156/97 117/73 O2 Sat by Pulse 100 96 84 Oximetry 03/03/21 03/03/21 03/03/21 10:00 11:00 11:52 Temperature 98.2 F Pulse Rate 108 H 110 H Pulse Rate [ From Monitor] Respiratory 12 10 L Rate Blood Pressure 117/73 167/108 O2 Sat by Pulse 96 Oximetry 03/03/21 03/03/21 03/03/21 12:00 13:00 14:00 Temperature Pulse Rate 139 H 115 H 91 H Pulse Rate [ 135 H From Monitor] Respiratory 19 12 22 Rate Blood Pressure 167/108 157/102 107/61 O2 Sat by Pulse 96 98 93 Oximetry 03/03/21 15:17 Temperature Pulse Rate 93 H Pulse Rate [ From Monitor] Respiratory Rate Blood Pressure 99/59 O2 Sat by Pulse 95 Oximetry Constitutional: no acute distress, other (middle aged obese male without significant ventiulator dyssynchrony) Eyes: non-icteric ENT: oropharynx moist, other (ETT 24 cm CLINT) Neck: supple, no lymphadenopathy, no JVD, other (large circumference) Effort: mildly labored Ascultation: Bilateral: diminished breath sounds, rhonchi Percussion: Bilateral: not dull Cardiovascular: regular rate and rhythm Gastrointestinal: normoactive bowel sounds, soft, non-tender, non-distended (protuberant) Integumentary: normal Extremities: no cyanosis, pulses normal, no ischemia or petechiae, edema (trace) Neurologic: non-focal exam (grossly), pupils equal and round, CN II-XII normal, motor strength normal and Psychiatric: other (sedated) CBC and BMP: 03/03/21 03:50 03/03/21 03:50 ABG, PT/INR, D-dimer: ABG ABG pH 7.407 (7.320-7.450) 03/03/21 03:07 POC ABG pCO2 50.9 mmHg (32.0-48.0) H 03/03/21 03:07 POC ABG pO2 81.9 mmHg (83-108) L 03/03/21 03:07 POC ABG HCO3 31.3 03/03/21 03:07 ABG O2 Saturation 94.9 (0-100) 03/03/21 03:07 PT/INR, D-dimer PT 15.2 Sec. (12.2-14.9) H 03/02/21 16:28 INR 1.14 (0.87-1.13) H 03/02/21 16:28 Abnormal lab findings: Abnormal Labs 03/01/21 03/01/21 03/01/21 19:15 19:21 19:21 WBC 12.7 H RBC 2.77 L Hgb 9.1 L Hct 27.7 L MCV 100 H MCH 33 H RDW 18.0 H Seg Neutrophils % Monocytes % (Manual) 17.0 H Seg Neutrophils # Monocytes # (Manual) 2.2 H PT INR ABG pH POC ABG pCO2 POC ABG pO2 64.9 L ABG Hemoglobin 9.3 L ABG Oxyhemoglobin 93.0 L ABG Sodium 133.8 L ABG Potassium ABG Chloride 97.0 L ABG Glucose 191 H Carboxyhemoglobin Sodium Chloride Carbon Dioxide BUN Creatinine Glucose POC Glucose Lactic Acid Calcium Phosphorus Total Bilirubin Direct Bilirubin AST ALT Alkaline Phosphatase Ammonia Troponin T 0.493 H* Total Protein Albumin Triglycerides 400 H Cholesterol 232 H HDL Cholesterol 22 L Lipase Arterial Blood Glucose 191 H Arterial Blood Ionized Calcium 4.4 L Salicylates Acetaminophen 03/01/21 03/01/21 03/01/21 19:21 19:21 19:21 WBC RBC Hgb Hct MCV MCH RDW Seg Neutrophils % Monocytes % (Manual) Seg Neutrophils # Monocytes # (Manual) PT 16.6 H INR 1.28 H ABG pH POC ABG pCO2 POC ABG pO2 ABG Hemoglobin ABG Oxyhemoglobin ABG Sodium ABG Potassium ABG Chloride ABG Glucose Carboxyhemoglobin Sodium 132 L Chloride 92.2 L Carbon Dioxide BUN 43 H Creatinine 2.4 H Glucose 190 H POC Glucose Lactic Acid 2.90 H* Calcium Phosphorus Total Bilirubin 1.60 H Direct Bilirubin 1.2 H AST 275 H ALT 156 H Alkaline Phosphatase 282 H Ammonia Troponin T Total Protein 5.8 L Albumin 2.6 L Triglycerides Cholesterol HDL Cholesterol Lipase 120 H Arterial Blood Glucose Arterial Blood Ionized Calcium Salicylates Acetaminophen 03/01/21 03/01/21 03/01/21 19:21 19:21 19:21 WBC RBC Hgb Hct MCV MCH RDW Seg Neutrophils % Monocytes % (Manual) Seg Neutrophils # Monocytes # (Manual) PT INR ABG pH POC ABG pCO2 POC ABG pO2 ABG Hemoglobin ABG Oxyhemoglobin ABG Sodium ABG Potassium ABG Chloride ABG Glucose Carboxyhemoglobin Sodium Chloride Carbon Dioxide BUN Creatinine Glucose POC Glucose Lactic Acid Calcium Phosphorus Total Bilirubin Direct Bilirubin AST ALT Alkaline Phosphatase Ammonia 71.0 H Troponin T Total Protein Albumin Triglycerides Cholesterol HDL Cholesterol Lipase Arterial Blood Glucose Arterial Blood Ionized Calcium Salicylates < 0.3 L Acetaminophen 5.0 L 03/01/21 03/01/21 03/02/21 20:55 20:55 00:01 WBC RBC Hgb Hct MCV MCH RDW Seg Neutrophils % Monocytes % (Manual) Seg Neutrophils # Monocytes # (Manual) PT INR ABG pH 7.234 L POC ABG pCO2 POC ABG pO2 240.5 H ABG Hemoglobin 9.3 L ABG Oxyhemoglobin 99.1 H ABG Sodium 135.3 L ABG Potassium ABG Chloride ABG Glucose 286 H Carboxyhemoglobin 0.3 L Sodium Chloride Carbon Dioxide BUN Creatinine Glucose POC Glucose Lactic Acid 4.30 H* Calcium Phosphorus Total Bilirubin Direct Bilirubin AST ALT Alkaline Phosphatase Ammonia Troponin T 0.484 H* Total Protein Albumin Triglycerides Cholesterol HDL Cholesterol Lipase Arterial Blood Glucose 286 H Arterial Blood Ionized Calcium Salicylates Acetaminophen 03/02/21 03/02/21 03/02/21 03:42 05:23 06:35 WBC RBC Hgb Hct MCV MCH RDW Seg Neutrophils % Monocytes % (Manual) Seg Neutrophils # Monocytes # (Manual) PT INR ABG pH 7.225 L POC ABG pCO2 POC ABG pO2 181.8 H ABG Hemoglobin 9.4 L ABG Oxyhemoglobin 98.6 H ABG Sodium 132.1 L ABG Potassium 5.0 H ABG Chloride ABG Glucose 454 H Carboxyhemoglobin 0.3 L Sodium Chloride Carbon Dioxide BUN Creatinine Glucose POC Glucose 410 H Lactic Acid 7.50 H* Calcium Phosphorus Total Bilirubin Direct Bilirubin AST ALT Alkaline Phosphatase Ammonia Troponin T Total Protein Albumin Triglycerides Cholesterol HDL Cholesterol Lipase Arterial Blood Glucose 454 H Arterial Blood Ionized Calcium 4.2 L Salicylates Acetaminophen 03/02/21 03/02/21 03/02/21 10:48 10:48 10:48 WBC RBC Hgb Hct MCV MCH RDW Seg Neutrophils % Monocytes % (Manual) Seg Neutrophils # Monocytes # (Manual) PT INR ABG pH POC ABG pCO2 POC ABG pO2 ABG Hemoglobin ABG Oxyhemoglobin ABG Sodium ABG Potassium ABG Chloride ABG Glucose Carboxyhemoglobin Sodium 132 L Chloride 93.3 L Carbon Dioxide 20 L BUN 46 H Creatinine 1.9 H Glucose 503 H* POC Glucose Lactic Acid 3.40 H* Calcium 7.9 L Phosphorus 5.80 H Total Bilirubin Direct Bilirubin AST ALT Alkaline Phosphatase Ammonia Troponin T Total Protein Albumin Triglycerides Cholesterol HDL Cholesterol Lipase Arterial Blood Glucose Arterial Blood Ionized Calcium Salicylates Acetaminophen 03/02/21 03/02/21 03/02/21 11:23 11:38 15:33 WBC RBC Hgb Hct MCV MCH RDW Seg Neutrophils % Monocytes % (Manual) Seg Neutrophils # Monocytes # (Manual) PT INR ABG pH 7.318 L POC ABG pCO2 POC ABG pO2 ABG Hemoglobin 9.2 L ABG Oxyhemoglobin ABG Sodium 133.2 L ABG Potassium ABG Chloride ABG Glucose 504 H Carboxyhemoglobin 0.3 L Sodium Chloride Carbon Dioxide BUN Creatinine Glucose POC Glucose 468 H 445 H Lactic Acid Calcium Phosphorus Total Bilirubin Direct Bilirubin AST ALT Alkaline Phosphatase Ammonia Troponin T Total Protein Albumin Triglycerides Cholesterol HDL Cholesterol Lipase Arterial Blood Glucose 504 H Arterial Blood Ionized Calcium 4.2 L Salicylates Acetaminophen 03/02/21 03/02/21 03/02/21 16:28 16:28 16:28 WBC RBC Hgb 8.8 L Hct 26.0 L MCV MCH RDW Seg Neutrophils % Monocytes % (Manual) Seg Neutrophils # Monocytes # (Manual) PT 15.2 H INR 1.14 H ABG pH POC ABG pCO2 POC ABG pO2 ABG Hemoglobin ABG Oxyhemoglobin ABG Sodium ABG Potassium ABG Chloride ABG Glucose Carboxyhemoglobin Sodium 135 L Chloride 93.8 L Carbon Dioxide BUN 48 H Creatinine 1.8 H Glucose 454 H POC Glucose Lactic Acid Calcium 7.6 L Phosphorus Total Bilirubin Direct Bilirubin AST ALT Alkaline Phosphatase Ammonia Troponin T Total Protein Albumin Triglycerides Cholesterol HDL Cholesterol Lipase Arterial Blood Glucose Arterial Blood Ionized Calcium Salicylates Acetaminophen 03/02/21 03/02/21 03/02/21 17:39 18:52 20:09 WBC RBC Hgb Hct MCV MCH RDW Seg Neutrophils % Monocytes % (Manual) Seg Neutrophils # Monocytes # (Manual) PT INR ABG pH POC ABG pCO2 POC ABG pO2 ABG Hemoglobin ABG Oxyhemoglobin ABG Sodium ABG Potassium ABG Chloride ABG Glucose Carboxyhemoglobin Sodium Chloride Carbon Dioxide BUN Creatinine Glucose POC Glucose 404 H 357 H 347 H Lactic Acid Calcium Phosphorus Total Bilirubin Direct Bilirubin AST ALT Alkaline Phosphatase Ammonia Troponin T Total Protein Albumin Triglycerides Cholesterol HDL Cholesterol Lipase Arterial Blood Glucose Arterial Blood Ionized Calcium Salicylates Acetaminophen 03/02/21 03/02/21 03/02/21 21:03 22:00 22:55 WBC RBC Hgb Hct MCV MCH RDW Seg Neutrophils % Monocytes % (Manual) Seg Neutrophils # Monocytes # (Manual) PT INR ABG pH POC ABG pCO2 POC ABG pO2 ABG Hemoglobin ABG Oxyhemoglobin ABG Sodium ABG Potassium ABG Chloride ABG Glucose Carboxyhemoglobin Sodium Chloride Carbon Dioxide BUN Creatinine Glucose POC Glucose 307 H 270 H 237 H Lactic Acid Calcium Phosphorus Total Bilirubin Direct Bilirubin AST ALT Alkaline Phosphatase Ammonia Troponin T Total Protein Albumin Triglycerides Cholesterol HDL Cholesterol Lipase Arterial Blood Glucose Arterial Blood Ionized Calcium Salicylates Acetaminophen 03/03/21 03/03/21 03/03/21 00:02 00:57 02:01 WBC RBC Hgb Hct MCV MCH RDW Seg Neutrophils % Monocytes % (Manual) Seg Neutrophils # Monocytes # (Manual) PT INR ABG pH POC ABG pCO2 POC ABG pO2 ABG Hemoglobin ABG Oxyhemoglobin ABG Sodium ABG Potassium ABG Chloride ABG Glucose Carboxyhemoglobin Sodium Chloride Carbon Dioxide BUN Creatinine Glucose POC Glucose 252 H 214 H 261 H Lactic Acid Calcium Phosphorus Total Bilirubin Direct Bilirubin AST ALT Alkaline Phosphatase Ammonia Troponin T Total Protein Albumin Triglycerides Cholesterol HDL Cholesterol Lipase Arterial Blood Glucose Arterial Blood Ionized Calcium Salicylates Acetaminophen 07/03/03/21 03/03/21 03:07 03:10 03:50 WBC 13.7 H RBC 2.69 L Hgb 8.7 L Hct 26.9 L MCV 100 H MCH RDW 18.5 H Seg Neutrophils % 79.0 H Monocytes % (Manual) Seg Neutrophils # 10.8 H Monocytes # (Manual) PT INR ABG pH POC ABG pCO2 50.9 H POC ABG pO2 81.9 L ABG Hemoglobin 8.7 L ABG Oxyhemoglobin ABG Sodium 134.2 L ABG Potassium ABG Chloride 96.0 L ABG Glucose 279 H Carboxyhemoglobin 0.4 L Sodium Chloride Carbon Dioxide BUN Creatinine Glucose POC Glucose 276 H Lactic Acid Calcium Phosphorus Total Bilirubin Direct Bilirubin AST ALT Alkaline Phosphatase Ammonia Troponin T Total Protein Albumin Triglycerides Cholesterol HDL Cholesterol Lipase Arterial Blood Glucose 279 H Arterial Blood Ionized Calcium 3.9 L Salicylates Acetaminophen 03/03/21 03/03/21 03/03/21 03:50 04:06 04:32 WBC RBC Hgb Hct MCV MCH RDW Seg Neutrophils % Monocytes % (Manual) Seg Neutrophils # Monocytes # (Manual) PT INR ABG pH POC ABG pCO2 POC ABG pO2 ABG Hemoglobin ABG Oxyhemoglobin ABG Sodium ABG Potassium ABG Chloride ABG Glucose Carboxyhemoglobin Sodium Chloride 94.2 L Carbon Dioxide BUN 45 H Creatinine 1.9 H Glucose 261 H POC Glucose 256 H Lactic Acid Calcium 7.3 L Phosphorus Total Bilirubin Direct Bilirubin 0.9 H AST 208 H ALT 148 H Alkaline Phosphatase 251 H Ammonia Troponin T Total Protein 5.5 L Albumin 2.4 L Triglycerides Cholesterol HDL Cholesterol Lipase Arterial Blood Glucose Arterial Blood Ionized Calcium Salicylates Acetaminophen 03/03/21 03/03/21 03/03/21 05:23 06:06 07:07 WBC RBC Hgb Hct MCV MCH RDW Seg Neutrophils % Monocytes % (Manual) Seg Neutrophils # Monocytes # (Manual) PT INR ABG pH POC ABG pCO2 POC ABG pO2 ABG Hemoglobin ABG Oxyhemoglobin ABG Sodium ABG Potassium ABG Chloride ABG Glucose Carboxyhemoglobin Sodium Chloride Carbon Dioxide BUN Creatinine Glucose POC Glucose 214 H 249 H 237 H Lactic Acid Calcium Phosphorus Total Bilirubin Direct Bilirubin AST ALT Alkaline Phosphatase Ammonia Troponin T Total Protein Albumin Triglycerides Cholesterol HDL Cholesterol Lipase Arterial Blood Glucose Arterial Blood Ionized Calcium Salicylates Acetaminophen 03/03/21 03/03/21 03/03/21 07:58 08:58 09:52 WBC RBC Hgb Hct MCV MCH RDW Seg Neutrophils % Monocytes % (Manual) Seg Neutrophils # Monocytes # (Manual) PT INR ABG pH POC ABG pCO2 POC ABG pO2 ABG Hemoglobin ABG Oxyhemoglobin ABG Sodium ABG Potassium ABG Chloride ABG Glucose Carboxyhemoglobin Sodium Chloride Carbon Dioxide BUN Creatinine Glucose POC Glucose 227 H 215 H 207 H Lactic Acid Calcium Phosphorus Total Bilirubin Direct Bilirubin AST ALT Alkaline Phosphatase Ammonia Troponin T Total Protein Albumin Triglycerides Cholesterol HDL Cholesterol Lipase Arterial Blood Glucose Arterial Blood Ionized Calcium Salicylates Acetaminophen 03/03/21 03/03/21 03/03/21 10:55 11:44 12:53 WBC RBC Hgb Hct MCV MCH RDW Seg Neutrophils % Monocytes % (Manual) Seg Neutrophils # Monocytes # (Manual) PT INR ABG pH POC ABG pCO2 POC ABG pO2 ABG Hemoglobin ABG Oxyhemoglobin ABG Sodium ABG Potassium ABG Chloride ABG Glucose Carboxyhemoglobin Sodium Chloride Carbon Dioxide BUN Creatinine Glucose POC Glucose 198 H 210 H 203 H Lactic Acid Calcium Phosphorus Total Bilirubin Direct Bilirubin AST ALT Alkaline Phosphatase Ammonia Troponin T Total Protein Albumin Triglycerides Cholesterol HDL Cholesterol Lipase Arterial Blood Glucose Arterial Blood Ionized Calcium Salicylates Acetaminophen 03/03/21 03/03/21 13:53 14:58 WBC RBC Hgb Hct MCV MCH RDW Seg Neutrophils % Monocytes % (Manual) Seg Neutrophils # Monocytes # (Manual) PT INR ABG pH POC ABG pCO2 POC ABG pO2 ABG Hemoglobin ABG Oxyhemoglobin ABG Sodium ABG Potassium ABG Chloride ABG Glucose Carboxyhemoglobin Sodium Chloride Carbon Dioxide BUN Creatinine Glucose POC Glucose 210 H 187 H Lactic Acid Calcium Phosphorus Total Bilirubin Direct Bilirubin AST ALT Alkaline Phosphatase Ammonia Troponin T Total Protein Albumin Triglycerides Cholesterol HDL Cholesterol Lipase Arterial Blood Glucose Arterial Blood Ionized Calcium Salicylates Acetaminophen Chest x-ray: image reviewed (ETT riding high; improved interstitial edema) Allied health notes reviewed: nursing
[2021-03-03 16:51] LABS: Calcium 7.6 mg/dL (8.4-10.2)
--- NOTE | 2021-03-03 17:18 | Gastroenterology Progress Note ---
Assessment and Plan 1. Liver: acute increase in lft's most likely due to shock liver vs other etiology - lft' improving with supportive management - liver serologies negative to date - ultrasound negative - avoid hepatotoxic drugs - follow labs - no changes at this time - will follow Subjective Date of service: 03/03/21 Principal diagnosis: Ac hypoxemic resp failure; NSTEMI; ALPHONSO; Sepsis; PNA; CHF; DM II; AMS Interval history: - no GI or liver issues overnight Objective - Constitutional Vitals: Temp Pulse Resp BP Pulse Ox 98.2 F 124 H 17 135/85 97 03/03/21 16:00 03/03/21 16:00 03/03/21 16:00 03/03/21 16:00 03/03/21 16:00 General appearance: no acute distress - EENT Eyes: PERRL - Respiratory Respiratory: bilateral: rhonchi - Cardiovascular Rhythm: regular Heart Sounds: Present: S1 & S2 - Gastrointestinal General gastrointestinal: Present: soft, non-tender, non-distended - Labs CBC & Chem 7: 03/03/21 03:50 03/03/21 16:25 Labs: Laboratory Results - last 24 hr 03/02/21 03/02/21 03/02/21 05:00 17:39 18:52 WBC RBC Hgb Hct MCV MCH MCHC RDW Plt Count Lymph % (Auto) [place] % (Auto) Eos % (Auto) Baso % (Auto) Lymph # (Auto) [place] # (Auto) Eos # (Auto) Baso # (Auto) Seg Neutrophils % Seg Neutrophils # Heparin Anti-Xa Level ABG pH POC ABG pCO2 POC ABG pO2 POC ABG HCO3 ABG O2 Saturation POC ABG Base Excess ABG Hemoglobin ABG Oxyhemoglobin ABG Methemoglobin ABG Sodium ABG Potassium ABG Chloride ABG Glucose Carboxyhemoglobin FiO2 % Sodium Potassium Chloride Carbon Dioxide Anion Gap BUN Creatinine Estimated GFR BUN/Creatinine Ratio Glucose POC Glucose 404 H 357 H Lactic Acid Calcium Total Bilirubin Direct Bilirubin Indirect Bilirubin AST ALT Alkaline Phosphatase Total Protein Albumin Albumin/Globulin Ratio TSH Arterial Blood Glucose Arterial Blood Ionized Calcium Nasal Screen MRSA (PCR) Positive 03/02/21 03/02/21 03/02/21 20:09 21:03 22:00 WBC RBC Hgb Hct MCV MCH MCHC RDW Plt Count Lymph % (Auto) [place] % (Auto) Eos % (Auto) Baso % (Auto) Lymph # (Auto) [place] # (Auto) Eos # (Auto) Baso # (Auto) Seg Neutrophils % Seg Neutrophils # Heparin Anti-Xa Level ABG pH POC ABG pCO2 POC ABG pO2 POC ABG HCO3 ABG O2 Saturation POC ABG Base Excess ABG Hemoglobin ABG Oxyhemoglobin ABG Methemoglobin ABG Sodium ABG Potassium ABG Chloride ABG Glucose Carboxyhemoglobin FiO2 % Sodium Potassium Chloride Carbon Dioxide Anion Gap BUN Creatinine Estimated GFR BUN/Creatinine Ratio Glucose POC Glucose 347 H 307 H 270 H Lactic Acid Calcium Total Bilirubin Direct Bilirubin Indirect Bilirubin AST ALT Alkaline Phosphatase Total Protein Albumin Albumin/Globulin Ratio TSH Arterial Blood Glucose Arterial Blood Ionized Calcium Nasal Screen MRSA (PCR) 03/02/21 03/02/21 03/03/21 22:55 23:14 00:02 WBC RBC Hgb Hct MCV MCH MCHC RDW Plt Count Lymph % (Auto) [place] % (Auto) Eos % (Auto) Baso % (Auto) Lymph # (Auto) [place] # (Auto) Eos # (Auto) Baso # (Auto) Seg Neutrophils % Seg Neutrophils # Heparin Anti-Xa Level 0.40 ABG pH POC ABG pCO2 POC ABG pO2 POC ABG HCO3 ABG O2 Saturation POC ABG Base Excess ABG Hemoglobin ABG Oxyhemoglobin ABG Methemoglobin ABG Sodium ABG Potassium ABG Chloride ABG Glucose Carboxyhemoglobin FiO2 % Sodium Potassium Chloride Carbon Dioxide Anion Gap BUN Creatinine Estimated GFR BUN/Creatinine Ratio Glucose POC Glucose 237 H 252 H Lactic Acid Calcium Total Bilirubin Direct Bilirubin Indirect Bilirubin AST ALT Alkaline Phosphatase Total Protein Albumin Albumin/Globulin Ratio TSH Arterial Blood Glucose Arterial Blood Ionized Calcium Nasal Screen MRSA (PCR) 03/03/21 03/03/21 03/03/21 00:57 02:01 03:07 WBC RBC Hgb Hct MCV MCH MCHC RDW Plt Count Lymph % (Auto) [place] % (Auto) Eos % (Auto) Baso % (Auto) Lymph # (Auto) [place] # (Auto) Eos # (Auto) Baso # (Auto) Seg Neutrophils % Seg Neutrophils # Heparin Anti-Xa Level ABG pH 7.407 POC ABG pCO2 50.9 H POC ABG pO2 81.9 L POC ABG HCO3 31.3 ABG O2 Saturation 94.9 POC ABG Base Excess 5.9 ABG Hemoglobin 8.7 L ABG Oxyhemoglobin 94.2 ABG Methemoglobin 0.3 ABG Sodium 134.2 L ABG Potassium 3.5 ABG Chloride 96.0 L ABG Glucose 279 H Carboxyhemoglobin 0.4 L FiO2 % 50.0 Sodium Potassium Chloride Carbon Dioxide Anion Gap BUN Creatinine Estimated GFR BUN/Creatinine Ratio Glucose POC Glucose 214 H 261 H Lactic Acid Calcium Total Bilirubin Direct Bilirubin Indirect Bilirubin AST ALT Alkaline Phosphatase Total Protein Albumin Albumin/Globulin Ratio TSH Arterial Blood Glucose 279 H Arterial Blood Ionized Calcium 3.9 L Nasal Screen MRSA (PCR) 03/03/21 03/03/21 03/03/21 03:10 03:50 03:50 WBC 13.7 H RBC 2.69 L Hgb 8.7 L Hct 26.9 L MCV 100 H MCH 32 MCHC 32 RDW 18.5 H Plt Count 236 Lymph % (Auto) 14.4 [place] % (Auto) 5.9 Eos % (Auto) 0.0 Baso % (Auto) 0.7 Lymph # (Auto) 2.0 [place] # (Auto) 0.8 Eos # (Auto) 0.0 Baso # (Auto) 0.1 Seg Neutrophils % 79.0 H Seg Neutrophils # 10.8 H Heparin Anti-Xa Level ABG pH POC ABG pCO2 POC ABG pO2 POC ABG HCO3 ABG O2 Saturation POC ABG Base Excess ABG Hemoglobin ABG Oxyhemoglobin ABG Methemoglobin ABG Sodium ABG Potassium ABG Chloride ABG Glucose Carboxyhemoglobin FiO2 % Sodium 139 Potassium 4.0 Chloride 94.2 L Carbon Dioxide 28 Anion Gap 21 BUN 45 H Creatinine 1.9 H Estimated GFR 46 BUN/Creatinine Ratio 24 Glucose 261 H POC Glucose 276 H Lactic Acid Calcium 7.3 L Total Bilirubin Direct Bilirubin Indirect Bilirubin AST ALT Alkaline Phosphatase Total Protein Albumin Albumin/Globulin Ratio TSH Arterial Blood Glucose Arterial Blood Ionized Calcium Nasal Screen MRSA (PCR) 03/03/21 03/03/21 03/03/21 04:06 04:06 04:32 WBC RBC Hgb Hct MCV MCH MCHC RDW Plt Count Lymph % (Auto) [place] % (Auto) Eos % (Auto) Baso % (Auto) Lymph # (Auto) [place] # (Auto) Eos # (Auto) Baso # (Auto) Seg Neutrophils % Seg Neutrophils # Heparin Anti-Xa Level ABG pH POC ABG pCO2 POC ABG pO2 POC ABG HCO3 ABG O2 Saturation POC ABG Base Excess ABG Hemoglobin ABG Oxyhemoglobin ABG Methemoglobin ABG Sodium ABG Potassium ABG Chloride ABG Glucose Carboxyhemoglobin FiO2 % Sodium Potassium Chloride Carbon Dioxide Anion Gap BUN Creatinine Estimated GFR BUN/Creatinine Ratio Glucose POC Glucose 256 H Lactic Acid Calcium Total Bilirubin 1.20 Direct Bilirubin 0.9 H Indirect Bilirubin 0.3 AST 208 H ALT 148 H Alkaline Phosphatase 251 H Total Protein 5.5 L Albumin 2.4 L Albumin/Globulin Ratio 0.8 TSH 1.840 Arterial Blood Glucose Arterial Blood Ionized Calcium Nasal Screen MRSA (PCR) 03/03/21 03/03/21 03/03/21 05:23 06:06 07:07 WBC RBC Hgb Hct MCV MCH MCHC RDW Plt Count Lymph % (Auto) [place] % (Auto) Eos % (Auto) Baso % (Auto) Lymph # (Auto) [place] # (Auto) Eos # (Auto) Baso # (Auto) Seg Neutrophils % Seg Neutrophils # Heparin Anti-Xa Level ABG pH POC ABG pCO2 POC ABG pO2 POC ABG HCO3 ABG O2 Saturation POC ABG Base Excess ABG Hemoglobin ABG Oxyhemoglobin ABG Methemoglobin ABG Sodium ABG Potassium ABG Chloride ABG Glucose Carboxyhemoglobin FiO2 % Sodium Potassium Chloride Carbon Dioxide Anion Gap BUN Creatinine Estimated GFR BUN/Creatinine Ratio Glucose POC Glucose 214 H 249 H 237 H Lactic Acid Calcium Total Bilirubin Direct Bilirubin Indirect Bilirubin AST ALT Alkaline Phosphatase Total Protein Albumin Albumin/Globulin Ratio TSH Arterial Blood Glucose Arterial Blood Ionized Calcium Nasal Screen MRSA (PCR) 03/03/21 03/03/21 03/03/21 07:58 08:58 09:52 WBC RBC Hgb Hct MCV MCH MCHC RDW Plt Count Lymph % (Auto) [place] % (Auto) Eos % (Auto) Baso % (Auto) Lymph # (Auto) [place] # (Auto) Eos # (Auto) Baso # (Auto) Seg Neutrophils % Seg Neutrophils # Heparin Anti-Xa Level ABG pH POC ABG pCO2 POC ABG pO2 POC ABG HCO3 ABG O2 Saturation POC ABG Base Excess ABG Hemoglobin ABG Oxyhemoglobin ABG Methemoglobin ABG Sodium ABG Potassium ABG Chloride ABG Glucose Carboxyhemoglobin FiO2 % Sodium Potassium Chloride Carbon Dioxide Anion Gap BUN Creatinine Estimated GFR BUN/Creatinine Ratio Glucose POC Glucose 227 H 215 H 207 H Lactic Acid Calcium Total Bilirubin Direct Bilirubin Indirect Bilirubin AST ALT Alkaline Phosphatase Total Protein Albumin Albumin/Globulin Ratio TSH Arterial Blood Glucose Arterial Blood Ionized Calcium Nasal Screen MRSA (PCR) 03/03/21 03/03/21 03/03/21 10:55 11:44 12:53 WBC RBC Hgb Hct MCV MCH MCHC RDW Plt Count Lymph % (Auto) [place] % (Auto) Eos % (Auto) Baso % (Auto) Lymph # (Auto) [place] # (Auto) Eos # (Auto) Baso # (Auto) Seg Neutrophils % Seg Neutrophils # Heparin Anti-Xa Level ABG pH POC ABG pCO2 POC ABG pO2 POC ABG HCO3 ABG O2 Saturation POC ABG Base Excess ABG Hemoglobin ABG Oxyhemoglobin ABG Methemoglobin ABG Sodium ABG Potassium ABG Chloride ABG Glucose Carboxyhemoglobin FiO2 % Sodium Potassium Chloride Carbon Dioxide Anion Gap BUN Creatinine Estimated GFR BUN/Creatinine Ratio Glucose POC Glucose 198 H 210 H 203 H Lactic Acid Calcium Total Bilirubin Direct Bilirubin Indirect Bilirubin AST ALT Alkaline Phosphatase Total Protein Albumin Albumin/Globulin Ratio TSH Arterial Blood Glucose Arterial Blood Ionized Calcium Nasal Screen MRSA (PCR) 03/03/21 03/03/21 03/03/21 13:53 14:58 15:23 WBC RBC Hgb Hct MCV MCH MCHC RDW Plt Count Lymph % (Auto) [place] % (Auto) Eos % (Auto) Baso % (Auto) Lymph # (Auto) [place] # (Auto) Eos # (Auto) Baso # (Auto) Seg Neutrophils % Seg Neutrophils # Heparin Anti-Xa Level ABG pH POC ABG pCO2 POC ABG pO2 POC ABG HCO3 ABG O2 Saturation POC ABG Base Excess ABG Hemoglobin ABG Oxyhemoglobin ABG Methemoglobin ABG Sodium ABG Potassium ABG Chloride ABG Glucose Carboxyhemoglobin FiO2 % Sodium Potassium Chloride Carbon Dioxide Anion Gap BUN Creatinine Estimated GFR BUN/Creatinine Ratio Glucose POC Glucose 210 H 187 H Lactic Acid 3.10 H* Calcium Total Bilirubin Direct Bilirubin Indirect Bilirubin AST ALT Alkaline Phosphatase Total Protein Albumin Albumin/Globulin Ratio TSH Arterial Blood Glucose Arterial Blood Ionized Calcium Nasal Screen MRSA (PCR) 03/03/21 03/03/21 03/03/21 15:51 16:25 16:53 WBC RBC Hgb Hct MCV MCH MCHC RDW Plt Count Lymph % (Auto) [place] % (Auto) Eos % (Auto) Baso % (Auto) Lymph # (Auto) [place] # (Auto) Eos # (Auto) Baso # (Auto) Seg Neutrophils % Seg Neutrophils # Heparin Anti-Xa Level ABG pH POC ABG pCO2 POC ABG pO2 POC ABG HCO3 ABG O2 Saturation POC ABG Base Excess ABG Hemoglobin ABG Oxyhemoglobin ABG Methemoglobin ABG Sodium ABG Potassium ABG Chloride ABG Glucose Carboxyhemoglobin FiO2 % Sodium 137 Potassium 3.9 Chloride 91.0 L Carbon Dioxide 34 H Anion Gap 16 BUN 47 H Creatinine 1.7 H Estimated GFR 52 BUN/Creatinine Ratio 28 Glucose 190 H POC Glucose 182 H 179 H Lactic Acid Calcium 7.6 L Total Bilirubin Direct Bilirubin Indirect Bilirubin AST ALT Alkaline Phosphatase Total Protein Albumin Albumin/Globulin Ratio TSH Arterial Blood Glucose Arterial Blood Ionized Calcium Nasal Screen MRSA (PCR)
[2021-03-03] MEDS: VANCOMYCIN 2,000 MG in SODIUM CHLORIDE 0.9% 500 ML 500 ML IV SCH (20:16)
--- NOTE | 2021-03-03 20:53 | Progress Note ---
Assessment and Plan Acute kidney injury Acidosis, combination of renal failure, sepsis and DKA Hypocalcemia Acute respiratory failure, intubated Hyperosmolar hyponatremia Diabetic ketoacidosis Sepsis Elevated LFTs Patient has recent history of acute kidney injury requiring dialysis from 12/12- 01/14. Last known creatinine at that hospital prior to discharge was 1.34. There is no immediate indication for dialysis as renal function and acidosis appears to be improving but will need close monitoring. Start calcium supplementation Status post bicarb injection S/p IV bicarb fluids DKA management as per primary Antibiotics as per primary Cardiology and GI note reviewed Renally dose medications Avoid nephrotoxins Renal diet Subjective Date of service: 03/03/21 Principal diagnosis: Ac hypoxemic resp failure; NSTEMI; ALPHONSO; Sepsis; PNA; CHF; DM II; AMS Interval history: Intubated. Awake during visit, appears agitated. Objective - Exam Narrative Exam: General: Mild distress HEENT: Oral mucosa moist Neck: Supple, no JVD Chest: Intubated. Mechanical breath sounds. Heart: RRR, S1 and S2, no pericardial rub Abdomen: Soft, nontender, no renal bruit Extremity: No peripheral cyanosis, edema Neurological: Awake, moving all extremities Dermatology: No skin rash Psych: Agitated Musculoskeletal: No joint effusion - Vital Signs Vital signs: Vital Signs - 12hr 03/03/21 03/03/21 03/03/21 09:00 10:00 11:00 Temperature Pulse Rate 81 108 H 110 H Pulse Rate [ From Monitor] Respiratory 22 12 10 L Rate Blood Pressure 117/73 117/73 167/108 O2 Sat by Pulse 84 96 Oximetry 03/03/21 03/03/21 03/03/21 11:52 12:00 13:00 Temperature 98.2 F Pulse Rate 139 H 115 H Pulse Rate [ 135 H From Monitor] Respiratory 19 12 Rate Blood Pressure 167/108 157/102 O2 Sat by Pulse 96 98 Oximetry 03/03/21 03/03/21 03/03/21 14:00 15:00 15:17 Temperature Pulse Rate 91 H 88 93 H Pulse Rate [ From Monitor] Respiratory 22 22 Rate Blood Pressure 107/61 99/59 99/59 O2 Sat by Pulse 93 96 95 Oximetry 03/03/21 03/03/21 03/03/21 16:00 17:00 18:00 Temperature 98.2 F Pulse Rate 124 H 120 H 124 H Pulse Rate [ 124 H From Monitor] Respiratory 17 15 23 Rate Blood Pressure 135/85 167/86 142/87 O2 Sat by Pulse 97 95 96 Oximetry 03/03/21 03/03/21 03/03/21 19:00 20:00 20:18 Temperature 98.9 F Pulse Rate 122 H 100 H 94 H Pulse Rate [ From Monitor] Respiratory 14 22 Rate Blood Pressure 145/94 101/54 101/53 O2 Sat by Pulse 96 92 92 Oximetry - Lab 03/03/21 03:50 03/03/21 16:25 Most recent lab results ABG pH 7.407 (7.320-7.450) 03/03/21 03:07 ABG O2 Saturation 94.9 (0-100) 03/03/21 03:07 Calcium 7.6 mg/dL (8.4-10.2) L 03/03/21 16:25 Phosphorus 5.80 mg/dL (2.5-4.5) H 03/02/21 10:48 Magnesium 2.00 mg/dL (1.7-2.3) 03/02/21 10:48 Medications & Allergies - Medications Allergies/Adverse Reactions: Allergies Penicillins Allergy (Verified 03/30/19 10:45) Rash Home Medications: Home Medications Medication Instructions Recorded Confirmed Last Taken Type ALBUTEROL NEB's [Proventil 0.083%] 2.5 mg IH TID PRN 04/27/13 01/16/14 04/27/13 History Albuterol Mdi (or & Nicu Only) 2 puff IH QID PRN 04/27/13 01/16/14 04/27/13 History [Proair] Fluticasone/Salmeterol [Advair 1 puff IH BID 04/27/13 01/16/14 04/27/13 History Diskus 250-50 mcg] Potassium Chloride [Klor-Con M10] 10 meq PO QDAY 04/27/13 01/16/14 04/27/13 History hydroCHLOROthiazide [Hctz] 12.5 mg PO QDAY 04/27/13 01/16/14 04/27/13 History Albuterol Sulfate [Proair 90 mcg IH Q4HR PRN #2 aer.[id number] 01/22/19 Unknown Rx Respiclick] Benzonatate [Tessalon Perles] 100 mg PO Q8HR PRN #30 capsule 01/22/19 Unknown Rx Doxycycline Hyclate [Doxycycline 100 mg PO Q12HR 5 Days #10 tab 01/22/19 Unknown Rx Hyclate TAB] Fluticasone [Flonase] 1 spray NS QDAY #1 bottle 01/22/19 Unknown Rx Ibuprofen [Motrin] 600 mg PO Q8H PRN #30 tablet 01/22/19 Unknown Rx Ipratropium (Nf) [Atrovent] 2 puff IH Q6HR PRN #2 inha 01/22/19 Unknown Rx predniSONE [Deltasone] 40 mg PO QDAY #8 tab 01/22/19 Unknown Rx Albuterol Mdi (or & Nicu Only) 2 puff IH QID PRN #1 inhalation 01/23/19 Unknown Rx [ProAir HFA Inhaler] Albuterol Sulfate [Albuterol 0.63% 0.63 mg IH Q4HR PRN #2 ml 01/23/19 Unknown Rx NEBS] Ipratropium [Atrovent NEB] 0.5 mg IH Q4HR #2 ml 01/23/19 Unknown Rx Azithromycin [Zithromax Z-JESICA] 250 mg PO DAILY #6 tablet 02/26/19 Unknown Rx predniSONE [Deltasone] 20 mg PO BID #14 tablet 02/26/19 Unknown Rx metFORMIN [Glucophage] 500 mg PO BID #30 tablet 03/30/19 Unknown Rx Ondansetron [Zofran Odt] 4 mg PO Q8HR PRN #14 tab.rapdis 01/01/21 Unknown Rx Active Medications: Generic Name Dose Route Start Last Admin Trade Name Freq PRN Reason Stop Dose Admin Acetaminophen 650 mg 03/02/21 00:18 Acetaminophen 650 Mg Rect Supp AL Q6H PRN Pain MILD(1-3)/Fever >100.5/VALDES Albuterol 2.5 mg 03/02/21 15:45 Albuterol 2.5 Mg/3 Ml Nebu IH Q4H PRN Shortness Of Breath Lipase/Protease/Amylase 1 each 03/03/21 10:53 Lipase 10,500/Protease 25,000/Amylase 43,750 (Units) Dr Gutierrez FEEDTUBE PRN PRN For Clogged Feeding Tube Aspirin 81 mg 03/02/21 11:00 03/03/21 09:57 Aspirin Ec 81 Mg Tab PO 81 mg QDAY KYLE Administration Dextrose 50 ml 03/02/21 11:38 Dextrose 50% In Water (25gm) 50 Ml Syringe IV Q30MIN PRN Hypoglycemia Protocol Famotidine 10 mg 03/02/21 22:00 03/03/21 09:57 Famotidine 20 Mg/2 Ml Inj IV 10 mg BID KYLE Administration Fentanyl 50 mcg 03/02/21 04:16 03/03/21 12:00 Fentanyl 100 Mcg/2 Ml Inj IV 50 mcg Q10MIN PRN Administration ANALGESIA Heparin Sodium (Porcine) 5,200 unit 03/02/21 15:44 Heparin 10,000 Units/10 Ml Vial 40 unit/kg (5200 unit) IV Q6H PRN Anti-Xa Assay < 0.1 units/ml Hydrophilic Ointment 1 applic 03/02/21 15:42 Lip Therapy Vaseline TP Q2H PRN Dry Lips Levofloxacin/Dextrose 750 mg in 150 mls @ 100 mls/hr 03/02/21 10:00 03/02/21 10:02 Levaquin 750mg/150ml IV 100 mls/hr Q48HR KYLE Administration Aztreonam 1 gm in 50 mls @ 50 mls/hr 03/02/21 06:00 03/03/21 17:34 Azactam/Ns 1 Gm/50 Ml IV 50 mls/hr Q6HR KYLE Administration Protocol Fentanyl Citrate 2,000 mcg in 100 mls @ 6.55 mls/hr 03/01/21 21:30 03/03/21 20:04 Fentanyl Drip Premix IV 4 mcg/kg/hr TITR KYLE 26.2 mls/hr Titration Protocol 1 MCG/KG/HR Vancomycin HCl 2,000 mg/ 540 mls @ 250 mls/hr 03/02/21 20:00 03/03/21 20:16 Sodium Chloride IV 250 mls/hr Q24H KYLE Administration Sodium Bicarbonate 150 meq/ 1,150 mls @ 200 mls/hr 03/02/21 10:00 03/03/21 12:44 Sterile Water IV 03/06/21 15:44 200 mls/hr DIRECT KYLE Administration Insulin Human Regular 100 100 mls @ 1 mls/hr 03/02/21 13:00 03/03/21 18:00 units/ Sodium Chloride IV 3 units/hr TITR KYLE 3 mls/hr Titration Protocol 1 UNITS/HR Propofol 1,000 mg in 100 mls @ 3.93 mls/hr 03/02/21 16:00 03/03/21 15:45 Diprivan 10 Mg/Ml IV 0 mcg/kg/min TITR KYLE 0 mls/hr Titration Protocol 5 MCG/KG/MIN Heparin Sodium/Sodium Chloride 25,000 unit in 500 mls @ 30 mls/hr 03/02/21 16:00 03/03/21 10:14 Heparin/ 0.45% Nacl-25,000 Unit/500 Ml IV 1,500 units/hr TITR KYLE 30 mls/hr Administration Protocol 1,500 UNITS/HR Potassium Chloride/Dextrose/Sod Cl 20 meq in 1,000 mls @ 75 mls/hr 03/03/21 03:00 03/03/21 17:34 D5w/0.45% Nacl/Kcl 20 Meq IV 75 mls/hr DIRECT KYLE Administration Insulin Glargine 5 units 03/03/21 22:00 Insulin Glargine 100 Units/Ml SUB-Q QHS KYLE Magnesium Hydroxide 30 ml 03/02/21 00:18 Magnesium Hydroxide (Mom) Oral Liqd Udc PO Q4H PRN Constipation Midodrine 10 mg 03/02/21 12:00 03/03/21 17:18 Midodrine 5 Mg Tab PO Not Given TID@0800,1200,1600 KYLE Morphine Sulfate 2 mg 03/02/21 00:18 Morphine 2 Mg/1 Ml Inj IV Q4H PRN Pain, Moderate (4-6) Morphine Sulfate 4 mg 03/02/21 00:18 Morphine 4 Mg/1 Ml Inj IV Q4H PRN Pain , Severe (7-10) Multi-Ingred Cream/Lotion/Oil/Oint 1 applic 03/02/21 15:42 Mineral Oil/Petrolatum, White Ophth Oint 3.5 Gm OU Q4HR PRN Dry Eye(s) Senna/Docusate Sodium 1 tab 03/02/21 22:00 03/03/21 09:57 Sennosides/Docusate Sodium 8.6/50 Mg Tab FEEDTUBE 1 tab BID KYLE Administration Simple Syrup 15 ml 03/03/21 10:53 Simple Syrup 15 Ml FEEDTUBE PRN PRN Hypoglycemia Simple Syrup 30 ml 03/03/21 10:53 Simple Syrup 15 Ml FEEDTUBE PRN PRN Hypoglycemia Sodium Bicarbonate 325 mg 03/03/21 10:53 Sodium Bicarbonate 325 Mg Tab FEEDTUBE PRN PRN For Clogged Feeding Tube Sodium Chloride 10 ml 03/02/21 10:00 03/03/21 10:01 Sodium Chloride 0.9% 10 Ml Flush Syringe IV 10 ml BID KYLE Administration Sodium Chloride 10 ml 03/02/21 00:18 Sodium Chloride 0.9% 10 Ml Flush Syringe IV PRN PRN LINE FLUSH
[2021-03-03] MEDS: INSULIN GLARGINE 100 UNITS/ML SUB-Q SCH (22:04)
[2021-03-03] MEDS: CALCIUM CARB/VIT D3/MINERALS 600 MG/800 UNITS TAB PO SCH (22:52)
[2021-03-04] MEDS: AZTREONAM/NS 1 GM/50 ML 1 GM/50 ML VIAL IV SCH ×3 (00:45→11:39)
[2021-03-04] MEDS: INSULIN REGULAR, HUMAN 100 UNITS in SODIUM CHLORIDE 0.9% 99 ML IV SCH (01:40)
[2021-03-04] MEDS: HEPARIN/ 0.45% NACL DRIP 25,000 UNIT/500 ML BAG IV SCH ×2 (02:04→15:00)
[2021-03-04] MEDS: fentaNYL DRIP Premix 2,000 MCG/100 ML BAG IV SCH ×4 (03:02→20:56)
--- NOTE | 2021-03-04 03:42 | XRay Report ---
CHEST 1 VIEW 03/04/2021 2:31 AM INDICATION / CLINICAL INFORMATION: follow up respiratory failure. COMPARISON: One view of the chest from 03/03/2021 FINDINGS: SUPPORT DEVICES: Unchanged. HEART / MEDIASTINUM: No significant abnormality. LUNGS / PLEURA: There are generalized increased bilateral pulmonary opacities. No significant pleural effusion. No pneumothorax. ADDITIONAL FINDINGS: No significant additional findings. IMPRESSION: Probable bilateral edema/atelectasis without other significant interval changes. Signer Name: Constantin Reyes MD Signed: 03/04/2021 3:38 AM Workstation Name: [id number]
[2021-03-04 06:02] LABS: Hematocrit 23.7 % (35.5-45.6); Hemoglobin 7.9 gm/dl (11.8-15.2)
[2021-03-04 06:40] LABS: Albumin 2.2 g/dL (3.9-5); Bilirubin,Direct 0.6 mg/dL (0-0.2)
[2021-03-04] MEDS: MIDODRINE 5 MG TAB PO SCH ×3 (08:30→16:46)
[2021-03-04] MEDS: FAMOTIDINE 20 MG TAB PO SCH ×2 (09:02→22:35)
[2021-03-04] MEDS: SENNOSIDES/DOCUSATE SODIUM 8.6/50 MG TAB FEEDTUBE SCH ×2 (09:02→22:35)
[2021-03-04] MEDS: ASPIRIN 81 MG TAB CHEW PO SCH (09:02)
[2021-03-04] MEDS: CALCIUM CARB/VIT D3/MINERALS 600 MG/800 UNITS TAB PO SCH ×2 (09:02→22:35)
--- NOTE | 2021-03-04 10:25 | Progress Note ---
Assessment and Plan Assessment: * Oliguric acute kidney injury secondary to prerenal azotemia vs sepsis related ATN * Sepsis --Blood cx: NGTD * Acute hypoxic respiratory failure * Metabolic acidosis * Diabetic ketoacidosis * Hypocalcemia * Hyperosmolar hyponatremia * Elevated LFTs Plan * BMP pending at time of visit - no acute indication for renal replacement the rapy at this time * DKA management as per primary * Antibiotics as per primary * Cardiology and GI note reviewed * Renally dose medications * Avoid nephrotoxins Subjective Date of service: 03/04/21 Principal diagnosis: Ac hypoxemic resp failure; NSTEMI; ALPHONSO; Sepsis; PNA; CHF; DM II; AMS Interval history: No acute events overnight. Objective - Vital Signs Vital signs: Vital Signs - 12hr 03/03/21 03/03/21 03/03/21 22:24 23:00 23:51 Temperature 98.5 F Pulse Rate 87 87 Pulse Rate [ From Monitor] Respiratory 22 22 Rate Blood Pressure 105/59 97/53 O2 Sat by Pulse 92 91 Oximetry 03/04/21 03/04/21 03/04/21 00:00 01:00 02:00 Temperature Pulse Rate 98 H 90 90 Pulse Rate [ 94 H From Monitor] Respiratory 22 21 21 Rate Blood Pressure 104/57 100/52 96/47 O2 Sat by Pulse 90 95 95 Oximetry 03/04/21 03/04/21 03/04/21 03:00 04:00 05:00 Temperature 98.8 F Pulse Rate 109 H 93 H 91 H Pulse Rate [ 94 H From Monitor] Respiratory 22 22 22 Rate Blood Pressure 97/50 96/55 101/50 O2 Sat by Pulse 97 93 96 Oximetry 03/04/21 03/04/21 03/04/21 06:00 07:00 07:28 Temperature 98.1 F Pulse Rate 86 88 101 H Pulse Rate [ From Monitor] Respiratory 22 22 Rate Blood Pressure 93/48 92/50 112/66 O2 Sat by Pulse 96 93 89 Oximetry 03/04/21 08:00 Temperature 98.8 F Pulse Rate 108 H Pulse Rate [ 108 H From Monitor] Respiratory 17 Rate Blood Pressure 145/71 O2 Sat by Pulse 100 Oximetry - General Appearance General appearance: well-developed, well-nourished, intubated EENT: ATNC, other (ETT in place) Respiratory: Present: Other (coarse BS) Cardiology: regular, S1S2 Gastrointestinal: normal, no tenderness, no distended Neurologic: other (opens eyes to tactile stimuli) Musculoskeletal: other (trace edema - thigh) - Lab 03/04/21 16:26 03/04/21 10:17 Most recent lab results ABG pH 7.402 (7.320-7.450) 03/04/21 03:47 ABG O2 Saturation 89.5 (0-100) 03/04/21 03:47 Calcium 7.6 mg/dL (8.4-10.2) L 03/03/21 16:25 Phosphorus 5.80 mg/dL (2.5-4.5) H 03/02/21 10:48 Magnesium 2.00 mg/dL (1.7-2.3) 03/02/21 10:48 Medications & Allergies - Medications Allergies/Adverse Reactions: Allergies Penicillins Allergy (Verified 03/30/19 10:45) Rash Home Medications: Home Medications Medication Instructions Recorded Confirmed Last Taken Type Fluticasone/Salmeterol [Advair 1 puff IH BID 04/27/13 01/16/14 04/27/13 History Diskus 250-50 mcg] Potassium Chloride [Klor-Con M10] 10 meq PO QDAY 04/27/13 01/16/14 04/27/13 History hydroCHLOROthiazide [Hctz] 12.5 mg PO QDAY 04/27/13 01/16/14 04/27/13 History Albuterol Sulfate [Proair 90 mcg IH Q4HR PRN #2 aer.[email or web address].ba 01/22/19 Unknown Rx Respiclick] Albuterol Sulfate [Albuterol 0.63% 0.63 mg IH Q4HR PRN #2 ml 01/23/19 Unknown Rx NEBS] Ipratropium [Atrovent NEB] 0.5 mg IH Q4HR #2 ml 01/23/19 Unknown Rx metFORMIN [Glucophage] 500 mg PO BID #30 tablet 03/30/19 Unknown Rx Active Medications: Generic Name Dose Route Start Last Admin Trade Name Freq PRN Reason Stop Dose Admin Acetaminophen 650 mg 03/02/21 00:18 Acetaminophen 650 Mg Rect Supp TN Q6H PRN Pain MILD(1-3)/Fever >100.5/VALDES Albuterol 2.5 mg 03/02/21 15:45 Albuterol 2.5 Mg/3 Ml Nebu IH Q4H PRN Shortness Of Breath Lipase/Protease/Amylase 1 each 03/03/21 10:53 Lipase 10,500/Protease 25,000/Amylase 43,750 (Units) Dr Cap FEEDTUBE PRN PRN For Clogged Feeding Tube Aspirin 81 mg 03/04/21 10:00 03/04/21 09:02 Aspirin 81 Mg Tab Chew PO 81 mg QDAY KYLE Administration Dextrose 50 ml 03/02/21 11:38 Dextrose 50% In Water (25gm) 50 Ml Syringe IV Q30MIN PRN Hypoglycemia Protocol Famotidine 20 mg 03/04/21 10:00 03/04/21 09:02 Famotidine 20 Mg Tab PO 20 mg BID KYLE Administration Fentanyl 50 mcg 03/02/21 04:16 03/03/21 12:00 Fentanyl 100 Mcg/2 Ml Inj IV 50 mcg Q10MIN PRN Administration ANALGESIA Heparin Sodium (Porcine) 5,200 unit 03/02/21 15:44 Heparin 10,000 Units/10 Ml Vial 40 unit/kg (5200 unit) IV Q6H PRN Anti-Xa Assay < 0.1 units/ml Hydrophilic Ointment 1 applic 03/02/21 15:42 Lip Therapy Vaseline TP Q2H PRN Dry Lips Levofloxacin/Dextrose 750 mg in 150 mls @ 100 mls/hr 03/02/21 10:00 03/04/21 09:02 Levaquin 750mg/150ml IV 100 mls/hr Q48HR KYLE Administration Aztreonam 1 gm in 50 mls @ 50 mls/hr 03/02/21 06:00 03/04/21 06:02 Azactam/Ns 1 Gm/50 Ml IV 50 mls/hr Q6HR KYLE Administration Protocol Fentanyl Citrate 2,000 mcg in 100 mls @ 6.55 mls/hr 03/01/21 21:30 03/04/21 07:15 Fentanyl Drip Premix IV 3 mcg/kg/hr TITR KYLE 19.65 mls/hr Administration Protocol 1 MCG/KG/HR Vancomycin HCl 2,000 mg/ 540 mls @ 250 mls/hr 03/02/21 20:00 03/03/21 20:16 Sodium Chloride IV 250 mls/hr Q24H KYLE Administration Sodium Bicarbonate 150 meq/ 1,150 mls @ 200 mls/hr 03/02/21 10:00 03/03/21 12:44 Sterile Water IV 03/06/21 15:44 200 mls/hr DIRECT KYLE Administration Propofol 1,000 mg in 100 mls @ 3.93 mls/hr 03/02/21 16:00 03/03/21 15:45 Diprivan 10 Mg/Ml IV 0 mcg/kg/min TITR KYLE 0 mls/hr Titration Protocol 5 MCG/KG/MIN Heparin Sodium/Sodium Chloride 25,000 unit in 500 mls @ 30 mls/hr 03/02/21 16:00 03/04/21 07:40 Heparin/ 0.45% Nacl-25,000 Unit/500 Ml IV 0 units/hr TITR KYLE 0 mls/hr Titration Protocol 1,500 UNITS/HR Potassium Chloride/Dextrose/Sod Cl 20 meq in 1,000 mls @ 75 mls/hr 03/03/21 03:00 03/03/21 17:34 D5w/0.45% Nacl/Kcl 20 Meq IV 75 mls/hr DIRECT KYLE Administration Insulin Glargine 5 units 03/03/21 22:00 03/03/21 22:04 Insulin Glargine 100 Units/Ml SUB-Q 5 units QHS KYLE Administration Insulin Human Lispro 0 unit 03/04/21 12:00 Insulin Lispro 100 Unit/Ml SUB-Q Q6HR KYLE Protocol Magnesium Hydroxide 30 ml 03/02/21 00:18 Magnesium Hydroxide (Mom) Oral Liqd Udc PO Q4H PRN Constipation Midodrine 10 mg 03/02/21 12:00 03/04/21 08:30 Midodrine 5 Mg Tab PO 10 mg TID@0800,1200,1600 KYLE Administration Morphine Sulfate 2 mg 03/02/21 00:18 Morphine 2 Mg/1 Ml Inj IV Q4H PRN Pain, Moderate (4-6) Morphine Sulfate 4 mg 03/02/21 00:18 Morphine 4 Mg/1 Ml Inj IV Q4H PRN Pain , Severe (7-10) Multi-Ingred Cream/Lotion/Oil/Oint 1 applic 03/02/21 15:42 Mineral Oil/Petrolatum, White Ophth Oint 3.5 Gm OU Q4HR PRN Dry Eye(s) Multivitamins/Minerals 1 each 03/03/21 22:00 03/04/21 09:02 Calcium Carb/Vit D3/Minerals 600 Mg/800 Units Tab PO 1 each BID KYLE Administration Senna/Docusate Sodium 1 tab 03/02/21 22:00 03/04/21 09:02 Sennosides/Docusate Sodium 8.6/50 Mg Tab FEEDTUBE 1 tab BID KYLE Administration Simple Syrup 15 ml 03/03/21 10:53 Simple Syrup 15 Ml FEEDTUBE PRN PRN Hypoglycemia Simple Syrup 30 ml 03/03/21 10:53 Simple Syrup 15 Ml FEEDTUBE PRN PRN Hypoglycemia Sodium Bicarbonate 325 mg 03/03/21 10:53 Sodium Bicarbonate 325 Mg Tab FEEDTUBE PRN PRN For Clogged Feeding Tube Sodium Chloride 10 ml 03/02/21 10:00 03/04/21 09:03 Sodium Chloride 0.9% 10 Ml Flush Syringe IV 10 ml BID KYLE Administration Sodium Chloride 10 ml 03/02/21 00:18 Sodium Chloride 0.9% 10 Ml Flush Syringe IV PRN PRN LINE FLUSH
--- NOTE | 2021-03-04 10:57 | Progress Note ---
<JAVIERCHAVO EllisGauri - Last Filed: 03/04/21 18:46> Assessment and Plan Assessment and plan: This is a a 51 year old male admitted for for severe sepsis, respiratory failure, pneumonia and ALPHONSO. PMH: COPD, CHF, DM, DVT/PE, HTN, KAM, obesity, asthma PSx: none reported home meds: albuterol sulfate, advair, HCTZ, atrovent, glucophage, Klor-Con, midodrine, metoprolol, lasix, lantus, coumadin (from audit and home meds reconciliation) Social: unknown A/P Neuro: Metabolic encephalopathy -sedated with fentanyl -RASS goal 0 to -1 -Avoid delirium -Reorientation as needed -Aspiration/fall precautions -B wrist restraints for safety Cardio: SR-ST: Acute on Chronic HFpEF (per cards), NSTEMI, HTN, HLD -Cardiology consulted, appreciate recommendations -ASA, midodrine -BP monitoring per protocol -Echo pending -Hold antihtn meds for now -EKG in AM to eval QTc Resp: Acute on chronic hypoxic respiratory failure, Bilateral PNA, hx COPD, KAM, asthma, ?PE -CCM consulted, appreciate recommendations -MV, wean as tolerated -Intuabted 03/01 with 8.0 OETT at 22@lip -Vent settings: AC TV 500, PEEP 6, Rate 22, on 100% FiO2 -Serial CXR and ABG -VAP bundle -Continous SPO2 monitoring -abx with levaquin (03/02-03/07) -03/01 CT chest shows several pulmonary nodules within Right lung measuring 6-8 mm, increased interstitial prominence -03/04 CXR reviewed -COVID 19 PCR negative -Heparin gtt was on hold d/t bloody secretions with clots GI: Transaminitis, TF -GI consulted, appreciate recommendations -Trend LFTs -RUQ US shows no evidence of cholelithiasis, cholecytitis or choledocholithisis -CT abd/pelvis shows fatty infiltration of liver -Trend LFTs -Ntr consult for TF -PPI with Pepcid -BR Senn[place] : ALPHONSO, hypoNa, hypoCl -Nephrology consulted, appreciate recommendations -Pt was on HD at recent hospitalization at OSH -Penally dose mediations -Avoid nephrotoxic medcaitons -Strict I&Os -Renal US shows no significant abnormality -Daily weights -Trend BMP Heme: DVT-R posterior tibial vein -evidenced on BLE Doppler US -Heparin gtt -Patient reportedly having bloody secretion with clots from OETT but CCM resumed gtt -SCDs while in bed ID: Severe Sepsis, B PNA -abd therapy -VAP bundle -procal 0.89 on 03/04 -MRSA (+) nares -03/01 BCx2 with NGTD -03/01 UC with NGTD -03/02 sputum culture Endo: DM -SSI, lantus -Accuchecks q6 -Avoid hypoglycemia Lines: condom cath, PIV Dispotions: ICU Full code The high probability of a clinically significant, sudden or life threatening deterioration of the [multi] system(s) required my full and direct attention, intervention and personal management. The aggregate critical care time was [60] minutes. This time is in addition to time spent performing reported procedures but includes the following: [x] Data Review and interpretation [x] Patient assessment and monitoring of vital signs [x] Documentation [x] Medication orders and management History Interval history: This is a 51-year-old -Slovenian male with COPD with chronic respiratory failure, CHFpEF, diabetes mellitus, DVT/PE on coumadin and hypertension who presented to [facility] via EMS for AMS and hypoxia. On arrival of EMS oxygen saturation was about 88% on room air, blood pressure was said to be about 88/50 mmHg. Work-up in the emergency room reveals leukocytosis of 12.7, hemoglobin of 9.1 and hematocrit of 27.7, sodium of 132, lactic acid of 2.90, elevated liver enzymes and elevated troponin at 0.493. A CT of the chest showed findings concerning for atelectasis and or infiltrate, CT of the head was unremarkable. Patient was in severe respiratory distress upon arrival in the emergency room and subsequently intubated. Patient was admitted to the hospitalist service with consults to cardiology, CCM, GI, and neprohology for severe sepsis, respiratory failure, pneumonia and ALPHONSO. Of note patient was admitted to [facility] from 12/12-01/14 and was on HD during that admit. 03/03/21: Patient remains intubated, continue on heparin drip, monitor H&H and BMP. Continue empiric antibiotics, ID following. Follow ammonia level and LFT. According to cardiology patient indeed had preserved EF during his recent admission to [facility]. Plan to repeat 2D echo. Critical care following, wean off from vent as tolerated. 03/04: RN reported blood y secretions in OETT and clots, heparin gtt stopped and B LE US obtained which shows DVT, abx deescalated, heparin gtt restarted. Hospitalist Physical - Constitutional Vitals: Temp Pulse Resp BP Pulse Ox 98.8 F 108 H 17 145/71 100 03/04/21 08:00 03/04/21 08:00 03/04/21 08:00 03/04/21 08:00 03/04/21 08:00 General appearance: Present: well-nourished, obese - EENT Eyes: Present: PERRL, EOM intact - Neck Neck: Present: normal ROM - Respiratory Respiratory effort: normal - Cardiovascular Rhythm: regular - Extremities Extremities: no ischemia Peripheral Pulses: within normal limits - Abdominal General gastrointestinal: soft - Integumentary Integumentary: Present: warm, dry - Psychiatric Psychiatric: agitated, other (sedated with fentanyl ) - Allied Health Allied health notes reviewed: nursing, RT, social work HEART Score - HEART Score Troponin: Troponin T 0.484 ng/mL (0.00-0.029) H* 03/01/21 20:55 Results - Labs CBC & Chem 7: 03/04/21 16:26 03/04/21 10:17 Labs: Laboratory Last Values WBC 13.7 K/mm3 (4.5-11.0) H 03/03/21 03:50 RBC 2.69 M/mm3 (3.65-5.03) L 03/03/21 03:50 Hgb 7.9 gm/dl (11.8-15.2) L 03/04/21 05:26 Hct 23.7 % (35.5-45.6) L 03/04/21 05:26 MCV 100 fl (84-94) H 03/03/21 03:50 MCH 32 pg (28-32) 03/03/21 03:50 MCHC 32 % (32-34) 03/03/21 03:50 RDW 18.5 % (13.2-15.2) H 03/03/21 03:50 Plt Count 225 K/mm3 (140-440) 03/04/21 05:26 Lymph % (Auto) 14.4 % (13.4-35.0) 03/03/21 03:50 [place] % (Auto) 5.9 % (0.0-7.3) 03/03/21 03:50 Eos % (Auto) 0.0 % (0.0-4.3) 03/03/21 03:50 Baso % (Auto) 0.7 % (0.0-1.8) 03/03/21 03:50 Lymph # (Auto) 2.0 K/mm3 (1.2-5.4) 03/03/21 03:50 [place] # (Auto) 0.8 K/mm3 (0.0-0.8) 03/03/21 03:50 Eos # (Auto) 0.0 K/mm3 (0.0-0.4) 03/03/21 03:50 Baso # (Auto) 0.1 K/mm3 (0.0-0.1) 03/03/21 03:50 Add Manual Diff Complete 03/01/21 19:21 Total Counted 100 03/01/21 19:21 Seg Neutrophils % 79.0 % (40.0-70.0) H 03/03/21 03:50 Seg Neuts % (Manual) 49.0 % (40.0-70.0) 03/01/21 19:21 Lymphocytes % (Manual) 32.0 % (13.4-35.0) 03/01/21 19:21 Monocytes % (Manual) 17.0 % (0.0-7.3) H 03/01/21 19:21 Eosinophils % (Manual) 1.0 % (0.0-4.3) 03/01/21 19:21 Basophils % (Manual) 1.0 % (0.0-1.8) 03/01/21 19:21 Nucleated RBC % Not Reportable 03/01/21 19:21 Seg Neutrophils # 10.8 K/mm3 (1.8-7.7) H 03/03/21 03:50 Seg Neutrophils # Man 6.2 K/mm3 (1.8-7.7) 03/01/21 19:21 Band Neutrophils # 0.0 K/mm3 03/01/21 19:21 Lymphocytes # (Manual) 4.1 K/mm3 (1.2-5.4) 03/01/21 19:21 Abs React Lymphs (Man) 0.0 K/mm3 03/01/21 19:21 Monocytes # (Manual) 2.2 K/mm3 (0.0-0.8) H 03/01/21 19:21 Eosinophils # (Manual) 0.1 K/mm3 (0.0-0.4) 03/01/21 19:21 Basophils # (Manual) 0.1 K/mm3 (0.0-0.1) 03/01/21 19:21 Metamyelocytes # 0.0 K/mm3 03/01/21 19:21 Myelocytes # 0.0 K/mm3 03/01/21 19:21 Promyelocytes # 0.0 K/mm3 03/01/21 19:21 Blast Cells # 0.0 K/mm3 03/01/21 19:21 WBC Morphology Not Reportable 03/01/21 19:21 Hypersegmented Neuts Not Reportable 03/01/21 19:21 Hyposegmented Neuts Not Reportable 03/01/21 19:21 Hypogranular Neuts Not Reportable 03/01/21 19:21 Smudge Cells Not Reportable 03/01/21 19:21 Toxic Granulation Not Reportable 03/01/21 19:21 Toxic Vacuolation Not Reportable 03/01/21 19:21 Dohle Bodies Not Reportable 03/01/21 19:21 Pelger-Huet Anomaly Not Reportable 03/01/21 19:21 Katherine Rods Not Reportable 03/01/21 19:21 Platelet Estimate Not Reportable 03/01/21 19:21 Clumped Platelets Not Reportable 03/01/21 19:21 Plt Clumps, EDTA Not Reportable 03/01/21 19:21 Large Platelets Not Reportable 03/01/21 19:21 Giant Platelets Not Reportable 03/01/21 19:21 Platelet Satelliting Not Reportable 03/01/21 19:21 Plt Morphology Comment Not Reportable 03/01/21 19:21 RBC Morphology Not Reportable 03/01/21 19:21 Dimorphic RBCs Not Reportable 03/01/21 19:21 Polychromasia Not Reportable 03/01/21 19:21 Hypochromasia Not Reportable 03/01/21 19:21 Poikilocytosis Not Reportable 03/01/21 19:21 Anisocytosis Rare 03/01/21 19:21 Microcytosis Not Reportable 03/01/21 19:21 Macrocytosis Not Reportable 03/01/21 19:21 Spherocytes Not Reportable 03/01/21 19:21 Pappenheimer Bodies Not Reportable 03/01/21 19:21 Sickle Cells Not Reportable 03/01/21 19:21 Target Cells Not Reportable 03/01/21 19:21 Tear Drop Cells Not Reportable 03/01/21 19:21 Ovalocytes Not Reportable 03/01/21 19:21 Helmet Cells Not Reportable 03/01/21 19:21 [place] Bodies Not Reportable 03/01/21 19:21 [place] Rings Not Reportable 03/01/21 19:21 Morton Cells Not Reportable 03/01/21 19:21 Bite Cells Not Reportable 03/01/21 19:21 Crenated Cell Not Reportable 03/01/21 19:21 Elliptocytes Not Reportable 03/01/21 19:21 Acanthocytes (Spur) Not Reportable 03/01/21 19:21 Rouleaux Not Reportable 03/01/21 19:21 Hemoglobin C Crystals Not Reportable 03/01/21 19:21 Schistocytes Few 03/01/21 19:21 Malaria parasites Not Reportable 03/01/21 19:21 Henry Bodies Not Reportable 03/01/21 19:21 Hem Pathologist Commnt No 03/01/21 19:21 PT 15.2 Sec. (12.2-14.9) H 03/02/21 16:28 INR 1.14 (0.87-1.13) H 03/02/21 16:28 APTT 36.6 Sec. (24.2-36.6) 03/02/21 16:28 Heparin Anti-Xa Level 0.71 U.I./ml (0.3-0.7) H 03/04/21 05:26 ABG pH 7.402 (7.320-7.450) 03/04/21 03:47 POC ABG pCO2 57.3 mmHg (32.0-48.0) H 03/04/21 03:47 POC ABG pO2 63.7 mmHg (83-108) L 03/04/21 03:47 POC ABG HCO3 34.9 03/04/21 03:47 ABG O2 Saturation 89.5 (0-100) 03/04/21 03:47 POC ABG Base Excess 8.9 03/04/21 03:47 ABG Hemoglobin 8.4 (12.0-17.5) L 03/04/21 03:47 ABG Oxyhemoglobin 88.6 (94-98) L 03/04/21 03:47 ABG Methemoglobin 0.3 (0.0-1.5) 03/04/21 03:47 ABG Sodium 132.5 mmol/L (136.0-145.0) L 03/04/21 03:47 ABG Potassium 3.2 mmol/L (3.40-4.50) L 03/04/21 03:47 ABG Chloride 94.0 mmol/L (98-107) L 03/04/21 03:47 ABG Glucose 129 mg/dL (65-95) H 03/04/21 03:47 Carboxyhemoglobin 0.7 (0.5-1.5) 03/04/21 03:47 FiO2 % 60.0 03/04/21 03:47 Sodium 137 mmol/L (137-145) 03/03/21 16:25 Potassium 3.9 mmol/L (3.6-5.0) 03/03/21 16:25 Chloride 91.0 mmol/L (98-107) L 03/03/21 16:25 Carbon Dioxide 34 mmol/L (22-30) H 03/03/21 16:25 Anion Gap 16 mmol/L 03/03/21 16:25 BUN 47 mg/dL (9-20) H 03/03/21 16:25 Creatinine 1.7 mg/dL (0.8-1.3) H 03/03/21 16:25 Estimated GFR 52 ml/min 03/03/21 16:25 BUN/Creatinine Ratio 28 % 03/03/21 16:25 Glucose 190 mg/dL (75-100) H 03/03/21 16:25 POC Glucose 129 mg/dL (70-105) H 03/04/21 07:57 Lactic Acid 2.00 mmol/L (0.7-2.0) 03/04/21 05:26 Calcium 7.6 mg/dL (8.4-10.2) L 03/03/21 16:25 Phosphorus 5.80 mg/dL (2.5-4.5) H 03/02/21 10:48 Magnesium 2.00 mg/dL (1.7-2.3) 03/02/21 10:48 Total Bilirubin 0.80 mg/dL (0.1-1.2) 03/04/21 05:26 Direct Bilirubin 0.6 mg/dL (0-0.2) H 03/04/21 05:26 Indirect Bilirubin 0.2 mg/dL 03/04/21 05:26 AST 123 units/L (5-40) H 03/04/21 05:26 ALT 105 units/L (7-56) H 03/04/21 05:26 Alkaline Phosphatase 232 units/L (35-129) H 03/04/21 05:26 Ammonia 71.0 umol/L (25-60) H 03/01/21 19:21 Troponin T 0.484 ng/mL (0.00-0.029) H* 03/01/21 20:55 Total Protein 4.8 g/dL (6.3-8.2) L 03/04/21 05:26 Albumin 2.2 g/dL (3.9-5) L 03/04/21 05:26 Albumin/Globulin Ratio 0.8 % 03/04/21 05:26 Triglycerides 400 mg/dL (2-149) H 03/01/21 19:21 Cholesterol 232 mg/dL (50-199) H 03/01/21 19:21 LDL Cholesterol Direct 130 mg/dL (50-130) 03/01/21 19:21 HDL Cholesterol 22 mg/dL (40-59) L 03/01/21 19:21 Cholesterol/HDL Ratio 10.54 % 03/01/21 19:21 Lipase 120 units/L (13-60) H 03/01/21 19:21 TSH 1.840 mlU/mL (0.270-4.200) 03/03/21 04:06 Arterial Blood Glucose 129 mg/dL (65-95) H 03/04/21 03:47 Arterial Blood Ionized Calcium 3.8 mg/dL (4.6-5.3) L 03/04/21 03:47 Urine Color Ari[place] (Yellow) 03/01/21 21:40 Urine Turbidity Slightly-cloudy (Clear) 03/01/21 21:40 Urine pH 5.0 (5.0-7.0) 03/01/21 21:40 Ur Specific [place] 1.018 (1.003-1.030) 03/01/21 21:40 Urine Protein 30 mg/dl mg/dL (Negative) 03/01/21 21:40 Urine Glucose (UA) Neg mg/dL (Negative) 03/01/21 21:40 Urine Ketones Neg mg/dL (Negative) 03/01/21 21:40 Urine Blood Sm (Negative) 03/01/21 21:40 Urine Nitrite Neg (Negative) 03/01/21 21:40 Urine Bilirubin Neg (Negative) 03/01/21 21:40 Urine Urobilinogen 4.0 mg/dL (<2.0) 03/01/21 21:40 Ur Leukocyte Esterase Neg (Negative) 03/01/21 21:40 Urine WBC (Auto) 5.0 /HPF (0.0-6.0) 03/01/21 21:40 Urine RBC (Auto) 4.0 /HPF (0.0-6.0) 03/01/21 21:40 U Epithel Cells (Auto) 1.0 /HPF (0-13.0) 03/01/21 21:40 Urine Bacteria (Auto) 1+ /HPF (Negative) 03/01/21 21:40 Hyaline Casts 14 /LPF 03/01/21 21:40 Urine Mucus Few /HPF 03/01/21 21:40 Urine Yeast (Budding) Few /HPF 03/01/21 21:40 Nasal Screen MRSA (PCR) Positive (Negative) 03/02/21 05:00 Salicylates < 0.3 mg/dL (2.8-20.0) L 03/01/21 19:21 Urine Opiates Screen Positive 03/01/21 21:40 Urine Methadone Screen Negative 03/01/21 21:40 Acetaminophen 5.0 ug/mL (10.0-30.0) L 03/01/21 19:21 Ur Barbiturates Screen Negative 03/01/21 21:40 Ur Phencyclidine Scrn Negative 03/01/21 21:40 Ur Amphetamines Screen Negative 03/01/21 21:40 U Benzodiazepines Scrn Negative 03/01/21 21:40 Urine Cocaine Screen Negative 03/01/21 21:40 U Marijuana (THC) Screen Negative 03/01/21 21:40 Drugs of Abuse Note Disclamer 03/01/21 21:40 Blood Type O POSITIVE 03/01/21 19:21 Antibody Screen Negative 03/01/21 19:21 Microbiology: Microbiology 03/01/21 21:40 Urine,Clean Catch Urine Culture - Final NO GROWTH AFTER 48 HOURS 03/01/21 19:35 Peripheral/Venous Blood Culture - Preliminary NO GROWTH AFTER 48 HOURS 03/01/21 19:21 Peripheral/Venous Blood Culture - Preliminary NO GROWTH AFTER 48 HOURS 03/02/21 15:48 Tracheal Aspirate Sputum Culture - Preliminary Vilchis/IV: Voiding Method Indwelling Catheter Active Medications - Current Medications Current Medications: Generic Name Dose Route Start Last Admin Trade Name Freq PRN Reason Stop Dose Admin Acetaminophen 650 mg 03/02/21 00:18 Acetaminophen 650 Mg Rect Supp AK Q6H PRN Pain MILD(1-3)/Fever >100.5/VALDES Albuterol 2.5 mg 03/02/21 15:45 Albuterol 2.5 Mg/3 Ml Nebu IH Q4H PRN Shortness Of Breath Lipase/Protease/Amylase 1 each 03/03/21 10:53 Lipase 10,500/Protease 25,000/Amylase 43,750 (Units) Dr Gutierrez FEEDTUBE PRN PRN For Clogged Feeding Tube Aspirin 81 mg 03/04/21 10:00 03/04/21 09:02 Aspirin 81 Mg Tab Chew PO 81 mg QDAY KYLE Administration Dextrose 50 ml 03/02/21 11:38 Dextrose 50% In Water (25gm) 50 Ml Syringe IV Q30MIN PRN Hypoglycemia Protocol Famotidine 20 mg 03/04/21 10:00 03/04/21 09:02 Famotidine 20 Mg Tab PO 20 mg BID KYLE Administration Fentanyl 50 mcg 03/02/21 04:16 03/03/21 12:00 Fentanyl 100 Mcg/2 Ml Inj IV 50 mcg Q10MIN PRN Administration ANALGESIA Heparin Sodium (Porcine) 5,200 unit 03/02/21 15:44 Heparin 10,000 Units/10 Ml Vial 40 unit/kg (5200 unit) IV Q6H PRN Anti-Xa Assay < 0.1 units/ml Hydrophilic Ointment 1 applic 03/02/21 15:42 Lip Therapy Vaseline TP Q2H PRN Dry Lips Levofloxacin/Dextrose 750 mg in 150 mls @ 100 mls/hr 03/02/21 10:00 03/04/21 09:02 Levaquin 750mg/150ml IV 100 mls/hr Q48HR KYLE Administration Aztreonam 1 gm in 50 mls @ 50 mls/hr 03/02/21 06:00 03/04/21 06:02 Azactam/Ns 1 Gm/50 Ml IV 50 mls/hr Q6HR KYLE Administration Protocol Fentanyl Citrate 2,000 mcg in 100 mls @ 6.55 mls/hr 03/01/21 21:30 03/04/21 07:15 Fentanyl Drip Premix IV 3 mcg/kg/hr TITR KYLE 19.65 mls/hr Administration Protocol 1 MCG/KG/HR Vancomycin HCl 2,000 mg/ 540 mls @ 250 mls/hr 03/02/21 20:00 03/03/21 20:16 Sodium Chloride IV 250 mls/hr Q24H KYLE Administration Sodium Bicarbonate 150 meq/ 1,150 mls @ 200 mls/hr 03/02/21 10:00 03/03/21 12:44 Sterile Water IV 03/06/21 15:44 200 mls/hr DIRECT KYLE Administration Propofol 1,000 mg in 100 mls @ 3.93 mls/hr 03/02/21 16:00 03/03/21 15:45 Diprivan 10 Mg/Ml IV 0 mcg/kg/min TITR KYLE 0 mls/hr Titration Protocol 5 MCG/KG/MIN Heparin Sodium/Sodium Chloride 25,000 unit in 500 mls @ 30 mls/hr 03/02/21 16:00 03/04/21 07:40 Heparin/ 0.45% Nacl-25,000 Unit/500 Ml IV 0 units/hr TITR KYLE 0 mls/hr Titration Protocol 1,500 UNITS/HR Potassium Chloride/Dextrose/Sod Cl 20 meq in 1,000 mls @ 75 mls/hr 03/03/21 03:00 03/03/21 17:34 D5w/0.45% Nacl/Kcl 20 Meq IV 75 mls/hr DIRECT KYLE Administration Insulin Glargine 5 units 03/03/21 22:00 03/03/21 22:04 Insulin Glargine 100 Units/Ml SUB-Q 5 units QHS KYLE Administration Insulin Human Lispro 0 unit 03/04/21 12:00 Insulin Lispro 100 Unit/Ml SUB-Q Q6HR [facility] Protocol Magnesium Hydroxide 30 ml 03/02/21 00:18 Magnesium Hydroxide (Mom) Oral Liqd Udc PO Q4H PRN Constipation Midodrine 10 mg 03/02/21 12:00 03/04/21 08:30 Midodrine 5 Mg Tab PO 10 mg TID@0800,1200,1600 KYLE Administration Morphine Sulfate 2 mg 03/02/21 00:18 Morphine 2 Mg/1 Ml Inj IV Q4H PRN Pain, Moderate (4-6) Morphine Sulfate 4 mg 03/02/21 00:18 Morphine 4 Mg/1 Ml Inj IV Q4H PRN Pain , Severe (7-10) Multi-Ingred Cream/Lotion/Oil/Oint 1 applic 03/02/21 15:42 Mineral Oil/Petrolatum, White Ophth Oint 3.5 Gm OU Q4HR PRN Dry Eye(s) Multivitamins/Minerals 1 each 03/03/21 22:00 03/04/21 09:02 Calcium Carb/Vit D3/Minerals 600 Mg/800 Units Tab PO 1 each BID KYLE Administration Senna/Docusate Sodium 1 tab 03/02/21 22:00 03/04/21 09:02 Sennosides/Docusate Sodium 8.6/50 Mg Tab FEEDTUBE 1 tab BID KYLE Administration Simple Syrup 15 ml 03/03/21 10:53 Simple Syrup 15 Ml FEEDTUBE PRN PRN Hypoglycemia Simple Syrup 30 ml 03/03/21 10:53 Simple Syrup 15 Ml FEEDTUBE PRN PRN Hypoglycemia Sodium Bicarbonate 325 mg 03/03/21 10:53 Sodium Bicarbonate 325 Mg Tab FEEDTUBE PRN PRN For Clogged Feeding Tube Sodium Chloride 10 ml 03/02/21 10:00 03/04/21 09:03 Sodium Chloride 0.9% 10 Ml Flush Syringe IV 10 ml BID KYLE Administration Sodium Chloride 10 ml 03/02/21 00:18 Sodium Chloride 0.9% 10 Ml Flush Syringe IV PRN PRN LINE FLUSH Nutrition/Malnutrition Assess - Dietary Evaluation Nutrition/Malnutrition Findings: Nutrition Notes Start: 03/02/21 10:10 Freq: Status: Active Protocol: Document 03/03/21 10:49 RIAN (Rec: 03/03/21 10:52 [id number]) Nutrition Notes Need for Assessment generated from: MD Order Initial or Follow up Reassessment Current Diagnosis Acute Kidney Injury,COPD, Diabetes,Sepsis,Hypertension, Heart Failure,Respiratory Failure Other Pertinent Diagnosis pneu, AMS Current Diet NPO Labs/Tests BUN 45 Cr 1.9 BG 503, 454, 261 Pertinent Medications Propofol Insulin ggt Height 5 ft 10 in Weight 131 kg [place] Body Weight (kg) 75.45 BMI 41.4 Weight Status Morbidly Obese Subjective/Other Information MD order for TF. Pt with BG > 300. Burn Absent Trauma Absent Current % PO Negligible Minimum of two criteria No physical signs of malnutrition #1 Nutrition Diagnosis Inadequate oral intake Diagnosis Progress(for reassessment Continues documentation) Is patient on ventilator? Yes Is Patient Ambulatory and/or Out of Bed No REE-([place]-confined to bed) 2614.728 Kcal/Kg value to use for calculation 14 Approximate Energy Requirements Using 1834 kcal/Kg Calculation Used for Recommendations Kcal/kg Additional Notes Protein: up to 2.5g/kg IBW (< or = to 189g) Fluid: 1 ml/kcal or per MD Nutrition Intervention Change Diet Order: Start TF Nutrition Support: Glucerna 1.2 at 65 ml/hr Flush 100 ml q4h or per MD Kcal 1,872 Protein (gm) 94 Carbohydrates (gm) 179 Fat (gm) 94 Fluid (mL) 1,256 Goal #1 Meet at least 75% of kcal needs and protein needs as best as possible via TF Anticipated Discharge Needs: Unable to determine at this time Follow-Up By: 03/05/21 Additional Comments FU for TF start and tolerance <CADE HAYS R - Last Filed: 03/05/21 17:00> Assessment and Plan Assessment and plan: I saw and evaluated the patient. I agree with the findings and the plan of care as documented in the Nurse Practitioner's~note, Hospitalist Physical - Constitutional Vitals: Temp Pulse Resp BP Pulse Ox 99.6 F 80 17 105/60 100 03/05/21 16:00 03/05/21 16:00 03/05/21 16:00 03/05/21 16:00 03/05/21 16:00 HEART Score - HEART Score Troponin: Troponin T 0.484 ng/mL (0.00-0.029) H* 03/01/21 20:55 Results - Labs CBC & Chem 7: 03/05/21 13:35 03/05/21 13:35 Labs: Laboratory Last Values WBC 10.9 K/mm3 (4.5-11.0) 03/05/21 13:35 RBC 2.38 M/mm3 (3.65-5.03) L 03/05/21 13:35 Hgb 7.8 gm/dl (11.8-15.2) L 03/05/21 13:35 Hct 23.8 % (35.5-45.6) L 03/05/21 13:35 MCV 100 fl (84-94) H 03/05/21 13:35 MCH 33 pg (28-32) H 03/05/21 13:35 MCHC 33 % (32-34) 03/05/21 13:35 RDW 18.2 % (13.2-15.2) H 03/05/21 13:35 Plt Count 234 K/mm3 (140-440) 03/05/21 13:35 Lymph % (Auto) 14.4 % (13.4-35.0) 03/03/21 03:50 [place] % (Auto) 5.9 % (0.0-7.3) 03/03/21 03:50 Eos % (Auto) 0.0 % (0.0-4.3) 03/03/21 03:50 Baso % (Auto) 0.7 % (0.0-1.8) 03/03/21 03:50 Lymph # (Auto) 2.0 K/mm3 (1.2-5.4) 03/03/21 03:50 [place] # (Auto) 0.8 K/mm3 (0.0-0.8) 03/03/21 03:50 Eos # (Auto) 0.0 K/mm3 (0.0-0.4) 03/03/21 03:50 Baso # (Auto) 0.1 K/mm3 (0.0-0.1) 03/03/21 03:50 Add Manual Diff Complete 03/01/21 19:21 Total Counted 100 03/01/21 19:21 Seg Neutrophils % 79.0 % (40.0-70.0) H 03/03/21 03:50 Seg Neuts % (Manual) 49.0 % (40.0-70.0) 03/01/21 19:21 Lymphocytes % (Manual) 32.0 % (13.4-35.0) 03/01/21 19:21 Monocytes % (Manual) 17.0 % (0.0-7.3) H 03/01/21 19:21 Eosinophils % (Manual) 1.0 % (0.0-4.3) 03/01/21 19:21 Basophils % (Manual) 1.0 % (0.0-1.8) 03/01/21 19:21 Nucleated RBC % Not Reportable 03/01/21 19:21 Seg Neutrophils # 10.8 K/mm3 (1.8-7.7) H 03/03/21 03:50 Seg Neutrophils # Man 6.2 K/mm3 (1.8-7.7) 03/01/21 19:21 Band Neutrophils # 0.0 K/mm3 03/01/21 19:21 Lymphocytes # (Manual) 4.1 K/mm3 (1.2-5.4) 03/01/21 19:21 Abs React Lymphs (Man) 0.0 K/mm3 03/01/21 19:21 Monocytes # (Manual) 2.2 K/mm3 (0.0-0.8) H 03/01/21 19:21 Eosinophils # (Manual) 0.1 K/mm3 (0.0-0.4) 03/01/21 19:21 Basophils # (Manual) 0.1 K/mm3 (0.0-0.1) 03/01/21 19:21 Metamyelocytes # 0.0 K/mm3 03/01/21 19:21 Myelocytes # 0.0 K/mm3 03/01/21 19:21 Promyelocytes # 0.0 K/mm3 03/01/21 19:21 Blast Cells # 0.0 K/mm3 03/01/21 19:21 WBC Morphology Not Reportable 03/01/21 19:21 Hypersegmented Neuts Not Reportable 03/01/21 19:21 Hyposegmented Neuts Not Reportable 03/01/21 19:21 Hypogranular Neuts Not Reportable 03/01/21 19:21 Smudge Cells Not Reportable 03/01/21 19:21 Toxic Granulation Not Reportable 03/01/21 19:21 Toxic Vacuolation Not Reportable 03/01/21 19:21 Dohle Bodies Not Reportable 03/01/21 19:21 Pelger-Huet Anomaly Not Reportable 03/01/21 19:21 Katherine Rods Not Reportable 03/01/21 19:21 Platelet Estimate Not Reportable 03/01/21 19:21 Clumped Platelets Not Reportable 03/01/21 19:21 Plt Clumps, EDTA Not Reportable 03/01/21 19:21 Large Platelets Not Reportable 03/01/21 19:21 Giant Platelets Not Reportable 03/01/21 19:21 Platelet Satelliting Not Reportable 03/01/21 19:21 Plt Morphology Comment Not Reportable 03/01/21 19:21 RBC Morphology Not Reportable 03/01/21 19:21 Dimorphic RBCs Not Reportable 03/01/21 19:21 Polychromasia Not Reportable 03/01/21 19:21 Hypochromasia Not Reportable 03/01/21 19:21 Poikilocytosis Not Reportable 03/01/21 19:21 Anisocytosis Rare 03/01/21 19:21 Microcytosis Not Reportable 03/01/21 19:21 Macrocytosis Not Reportable 03/01/21 19:21 Spherocytes Not Reportable 03/01/21 19:21 Pappenheimer Bodies Not Reportable 03/01/21 19:21 Sickle Cells Not Reportable 03/01/21 19:21 Target Cells Not Reportable 03/01/21 19:21 Tear Drop Cells Not Reportable 03/01/21 19:21 Ovalocytes Not Reportable 03/01/21 19:21 Helmet Cells Not Reportable 03/01/21 19:21 [place] Bodies Not Reportable 03/01/21 19:21 [place] Rings Not Reportable 03/01/21 19:21 [place] Cells Not Reportable 03/01/21 19:21 Bite Cells Not Reportable 03/01/21 19:21 Crenated Cell Not Reportable 03/01/21 19:21 Elliptocytes Not Reportable 03/01/21 19:21 Acanthocytes (Spur) Not Reportable 03/01/21 19:21 Rouleaux Not Reportable 03/01/21 19:21 Hemoglobin C Crystals Not Reportable 03/01/21 19:21 Schistocytes Few 03/01/21 19:21 Malaria parasites Not Reportable 03/01/21 19:21 Henry Bodies Not Reportable 03/01/21 19:21 Hem Pathologist Commnt No 03/01/21 19:21 PT 15.6 Sec. (12.2-14.9) H 03/04/21 10:17 INR 1.18 (0.87-1.13) H 03/04/21 10:17 APTT 36.6 Sec. (24.2-36.6) 03/02/21 16:28 Heparin Anti-Xa Level 0.36 U.I./ml (0.3-0.7) 03/04/21 20:23 ABG pH 7.450 (7.320-7.450) 03/05/21 04:00 POC ABG pCO2 47.7 mmHg (32.0-48.0) 03/05/21 04:00 POC ABG pO2 129.1 mmHg (83-108) H 03/05/21 04:00 POC ABG HCO3 32.4 03/05/21 04:00 ABG O2 Saturation 98.7 (0-100) 03/05/21 04:00 POC ABG Base Excess 7.6 03/05/21 04:00 ABG Hemoglobin 8.3 (12.0-17.5) L 03/05/21 04:00 ABG Oxyhemoglobin 97.9 (94-98) 03/05/21 04:00 ABG Methemoglobin 0.3 (0.0-1.5) 03/05/21 04:00 ABG Sodium 131.4 mmol/L (136.0-145.0) L 03/05/21 04:00 ABG Potassium 3.8 mmol/L (3.40-4.50) 03/05/21 04:00 ABG Chloride 95.0 mmol/L (98-107) L 03/05/21 04:00 ABG Glucose 153 mg/dL (65-95) H 03/05/21 04:00 Carboxyhemoglobin 0.5 (0.5-1.5) 03/05/21 04:00 FiO2 % 85.0 03/05/21 04:00 Sodium 138 mmol/L (137-145) 03/05/21 13:35 Potassium 3.7 mmol/L (3.6-5.0) 03/05/21 13:35 Chloride 94.4 mmol/L (98-107) L 03/05/21 13:35 Carbon Dioxide 28 mmol/L (22-30) 03/05/21 13:35 Anion Gap 19 mmol/L 03/05/21 13:35 BUN 49 mg/dL (9-20) H 03/05/21 13:35 Creatinine 1.6 mg/dL (0.8-1.3) H 03/05/21 13:35 Estimated GFR 56 ml/min 03/05/21 13:35 BUN/Creatinine Ratio 31 % 03/05/21 13:35 Glucose 165 mg/dL (75-100) H 03/05/21 13:35 POC Glucose 174 mg/dL (70-105) H 03/05/21 11:43 Lactic Acid 1.70 mmol/L (0.7-2.0) 03/04/21 10:17 Calcium 7.5 mg/dL (8.4-10.2) L 03/05/21 13:35 Phosphorus 5.80 mg/dL (2.5-4.5) H 03/02/21 10:48 Magnesium 2.00 mg/dL (1.7-2.3) 03/02/21 10:48 Total Bilirubin 0.90 mg/dL (0.1-1.2) 03/04/21 10:17 Direct Bilirubin 0.6 mg/dL (0-0.2) H 03/04/21 05:26 Indirect Bilirubin 0.2 mg/dL 03/04/21 05:26 AST 126 units/L (5-40) H 03/04/21 10:17 ALT 100 units/L (7-56) H 03/04/21 10:17 Alkaline Phosphatase 226 units/L (35-129) H 03/04/21 10:17 Ammonia 71.0 umol/L (25-60) H 03/01/21 19:21 Troponin T 0.484 ng/mL (0.00-0.029) H* 03/01/21 20:55 Total Protein 5.0 g/dL (6.3-8.2) L 03/04/21 10:17 Albumin 2.2 g/dL (3.9-5) L 03/04/21 10:17 Albumin/Globulin Ratio 0.8 % 03/04/21 10:17 Triglycerides 400 mg/dL (2-149) H 03/01/21 19:21 Cholesterol 232 mg/dL (50-199) H 03/01/21 19:21 LDL Cholesterol Direct 130 mg/dL (50-130) 03/01/21 19:21 HDL Cholesterol 22 mg/dL (40-59) L 03/01/21 19:21 Cholesterol/HDL Ratio 10.54 % 03/01/21 19:21 Lipase 78 units/L (13-60) H 03/04/21 10:17 Procalcitonin 0.89 ng/mL (<0.15) 03/04/21 13:04 TSH 1.840 mlU/mL (0.270-4.200) 03/03/21 04:06 Arterial Blood Glucose 153 mg/dL (65-95) H 03/05/21 04:00 Arterial Blood Ionized Calcium 3.8 mg/dL (4.6-5.3) L 03/04/21 03:47 Urine Color [place] (Yellow) 03/01/21 21:40 Urine Turbidity Slightly-cloudy (Clear) 03/01/21 21:40 Urine pH 5.0 (5.0-7.0) 03/01/21 21:40 Ur Specific [place] 1.018 (1.003-1.030) 03/01/21 21:40 Urine Protein 30 mg/dl mg/dL (Negative) 03/01/21 21:40 Urine Glucose (UA) Neg mg/dL (Negative) 03/01/21 21:40 Urine Ketones Neg mg/dL (Negative) 03/01/21 21:40 Urine Blood Sm (Negative) 03/01/21 21:40 Urine Nitrite Neg (Negative) 03/01/21 21:40 Urine Bilirubin Neg (Negative) 03/01/21 21:40 Urine Urobilinogen 4.0 mg/dL (<2.0) 03/01/21 21:40 Ur Leukocyte Esterase Neg (Negative) 03/01/21 21:40 Urine WBC (Auto) 5.0 /HPF (0.0-6.0) 03/01/21 21:40 Urine RBC (Auto) 4.0 /HPF (0.0-6.0) 03/01/21 21:40 U Epithel Cells (Auto) 1.0 /HPF (0-13.0) 03/01/21 21:40 Urine Bacteria (Auto) 1+ /HPF (Negative) 03/01/21 21:40 Hyaline Casts 14 /LPF 03/01/21 21:40 Urine Mucus Few /HPF 03/01/21 21:40 Urine Yeast (Budding) Few /HPF 03/01/21 21:40 Nasal Screen MRSA (PCR) Positive (Negative) 03/02/21 05:00 Salicylates < 0.3 mg/dL (2.8-20.0) L 03/01/21 19:21 Urine Opiates Screen Positive 03/01/21 21:40 Urine Methadone Screen Negative 03/01/21 21:40 Acetaminophen 5.0 ug/mL (10.0-30.0) L 03/01/21 19:21 Ur Barbiturates Screen Negative 03/01/21 21:40 Ur Phencyclidine Scrn Negative 03/01/21 21:40 Ur Amphetamines Screen Negative 03/01/21 21:40 U Benzodiazepines Scrn Negative 03/01/21 21:40 Urine Cocaine Screen Negative 03/01/21 21:40 U Marijuana (THC) Screen Negative 03/01/21 21:40 Drugs of Abuse Note Disclamer 03/01/21 21:40 Blood Type O POSITIVE 03/01/21 19:21 Antibody Screen Negative 03/01/21 19:21 Microbiology: Microbiology 03/02/21 15:48 Tracheal Aspirate Sputum Culture - Preliminary 03/01/21 19:35 Peripheral/Venous Blood Culture - Preliminary NO GROWTH AFTER 72 HOURS 03/01/21 19:21 Peripheral/Venous Blood Culture - Preliminary NO GROWTH AFTER 72 HOURS [place]/IV: Voiding Method Indwelling Catheter Active Medications - Current Medications Current Medications: Generic Name Dose Route Start Last Admin Trade Name Freq PRN Reason Stop Dose Admin Acetaminophen 650 mg 03/02/21 00:18 Acetaminophen 650 Mg Rect Supp AK Q6H PRN Pain MILD(1-3)/Fever >100.5/VALDES Albuterol 2.5 mg 03/02/21 15:45 Albuterol 2.5 Mg/3 Ml Nebu IH Q4H PRN Shortness Of Breath Lipase/Protease/Amylase 1 each 03/03/21 10:53 Lipase 10,500/Protease 25,000/Amylase 43,750 (Units) Dr Cap FEEDTUBE PRN PRN For Clogged Feeding Tube Aspirin 81 mg 03/04/21 10:00 03/05/21 09:45 Aspirin 81 Mg Tab Chew PO Not Given QDAY KYLE Dextrose 50 ml 03/02/21 11:38 Dextrose 50% In Water (25gm) 50 Ml Syringe IV Q30MIN PRN Hypoglycemia Protocol Famotidine 20 mg 03/04/21 10:00 03/05/21 09:46 Famotidine 20 Mg Tab PO Not Given BID KYLE Fentanyl 50 mcg 03/02/21 04:16 03/03/21 12:00 Fentanyl 100 Mcg/2 Ml Inj IV 50 mcg Q10MIN PRN Administration ANALGESIA Heparin Sodium (Porcine) 5,200 unit 03/04/21 14:33 03/04/21 14:50 Heparin 10,000 Units/10 Ml Vial 40 unit/kg (5200 unit) 5,200 unit IV Administration Q6H PRN Anti-Xa Assay < 0.1 units/ml Hydrophilic Ointment 1 applic 03/02/21 15:42 Lip Therapy Vaseline TP Q2H PRN Dry Lips Fentanyl Citrate 2,000 mcg in 100 mls @ 6.55 mls/hr 03/01/21 21:30 03/05/21 11:41 Fentanyl Drip Premix IV 2 mcg/kg/hr TITR KYLE 13.1 mls/hr Administration Protocol 1 MCG/KG/HR Heparin Sodium/Sodium Chloride 25,000 unit in 500 mls @ 30 mls/hr 03/04/21 15:00 03/05/21 06:34 Heparin/ 0.45% Nacl-25,000 Unit/500 Ml IV 1,500 units/hr TITR KYLE 30 mls/hr Titration Protocol 1,500 UNITS/HR Insulin Glargine 5 units 03/03/21 22:00 03/04/21 22:34 Insulin Glargine 100 Units/Ml SUB-Q 5 units QHS KYLE Administration Insulin Human Lispro 0 unit 03/04/21 12:00 03/05/21 12:53 Insulin Lispro 100 Unit/Ml SUB-Q 2 unit Q6HR KYLE Administration Protocol Magnesium Hydroxide 30 ml 03/02/21 00:18 Magnesium Hydroxide (Mom) Oral Liqd Udc PO Q4H PRN Constipation Midodrine 10 mg 03/02/21 12:00 03/05/21 12:55 Midodrine 5 Mg Tab PO 10 mg TID@0800,1200,1600 KYLE Administration Morphine Sulfate 2 mg 03/02/21 00:18 Morphine 2 Mg/1 Ml Inj IV Q4H PRN Pain, Moderate (4-6) Morphine Sulfate 4 mg 03/02/21 00:18 Morphine 4 Mg/1 Ml Inj IV Q4H PRN Pain , Severe (7-10) Multi-Ingred Cream/Lotion/Oil/Oint 1 applic 03/02/21 15:42 Mineral Oil/Petrolatum, White Ophth Oint 3.5 Gm OU Q4HR PRN Dry Eye(s) Multivitamins/Minerals 1 each 03/03/21 22:00 03/05/21 09:45 Calcium Carb/Vit D3/Minerals 600 Mg/800 Units Tab PO Not Given BID KYLE Senna/Docusate Sodium 1 tab 03/02/21 22:00 03/05/21 09:46 Sennosides/Docusate Sodium 8.6/50 Mg Tab FEEDTUBE Not Given BID KYLE Simple Syrup 15 ml 03/03/21 10:53 Simple Syrup 15 Ml FEEDTUBE PRN PRN Hypoglycemia Simple Syrup 30 ml 03/03/21 10:53 Simple Syrup 15 Ml FEEDTUBE PRN PRN Hypoglycemia Sodium Bicarbonate 325 mg 03/03/21 10:53 Sodium Bicarbonate 325 Mg Tab FEEDTUBE PRN PRN For Clogged Feeding Tube Sodium Chloride 10 ml 03/02/21 10:00 03/05/21 09:46 Sodium Chloride 0.9% 10 Ml Flush Syringe IV 10 ml BID KYLE Administration Sodium Chloride 10 ml 03/02/21 00:18 Sodium Chloride 0.9% 10 Ml Flush Syringe IV PRN PRN LINE FLUSH Nutrition/Malnutrition Assess - Dietary Evaluation Nutrition/Malnutrition Findings: Nutrition Notes Start: 03/02/21 10:10 Freq: Status: Active Protocol: Document 03/05/21 11:22 CW (Rec: 03/05/21 11:34 CW [id number]) Nutrition Notes Initial or Follow up Reassessment Current Diagnosis Acute Kidney Injury,COPD, Diabetes,Sepsis,Hypertension, Heart Failure,Respiratory Failure Other Pertinent Diagnosis pneu, AMS Current Diet Glucerna 1.2 at 65 ml/hr; Flush of 100 ml q4h Labs/Tests 03/04/2021: Na 136 BUN 46 Cr 1.4 BG 151 Pertinent Medications Midodrine Lantus D5w 1/2ns 1L 20 mEq KCl Height 5 ft 10 in Weight 131 kg [place] Body Weight (kg) 75.45 BMI 41.4 Weight Status Morbidly Obese Subjective/Other Information F/U for TF start/tolerance. TF running at 35 ml/hr at this time. No reports of TF intolerance. Percent of energy/protein needs met: 54%/26% Burn Absent Trauma Absent Current % PO Negligible Minimum of two criteria No physical signs of malnutrition #1 Nutrition Diagnosis Inadequate oral intake Diagnosis Progress(for reassessment Continues documentation) Is patient on ventilator? Yes Is Patient Ambulatory and/or Out of Bed No REE-([place]-confined to bed) 2614.728 Kcal/Kg value to use for calculation 14 Approximate Energy Requirements Using 1834 kcal/Kg Calculation Used for Recommendations Kcal/kg Additional Notes Protein: up to 2.5g/kg IBW (< or = to 189g) Fluid: 1 ml/kcal or per MD Nutrition Intervention Change Diet Order: Continue TF Nutrition Support: Glucerna 1.2 at 65 ml/hr Flush 100 ml q4h or per MD Kcal 1,872 Protein (gm) 94 Carbohydrates (gm) 179 Fat (gm) 94 Fluid (mL) 1,256 Goal #1 Meet at least 75% of kcal needs and protein needs as best as possible via TF Anticipated Discharge Needs: Unable to determine at this time Follow-Up By: 03/07/21 Additional Comments FU for TF at goal and tolerance
[2021-03-04 11:02] LABS: Hematocrit 25.3 % (35.5-45.6); Hemoglobin 8.3 gm/dl (11.8-15.2); Mean Corpuscular HGB Conc 33 % (32-34); Mean Corpuscular Volume 101 fl (84-94); Platelet Count 223 K/mm3 (140-440); Red Blood Count 2.51 M/mm3 (3.65-5.03); Red Cell Distribution Width 18.5 % (13.2-15.2)
[2021-03-04 11:14] LABS: INR 1.18 (0.87-1.13)
[2021-03-04 11:18] LABS: Alanine Aminotransferase 100 units/L (7-56); Albumin 2.2 g/dL (3.9-5); BUN/Creatinine Ratio 33; Blood Urea Nitrogen 46 mg/dL (9-20); Calcium 7.5 mg/dL (8.4-10.2); Hemolysis Index 9
--- NOTE | 2021-03-04 11:19 | Progress Note ---
Assessment and Plan Echo pending. May benefit from addition of gentle IV diuresis when hemodynamically stable. Resume heparin gtt when bleeding has resolved. Pt seen in conjunction with Dr. Heard, who agrees with the assessment and plan of care. - Patient Problems (1) Encephalopathy Current Visit: Yes Status: Acute (2) Acute respiratory failure Current Visit: Yes Status: Acute (3) Severe sepsis Current Visit: Yes Status: Acute (4) Pneumonia Current Visit: Yes Status: Acute Qualifiers: Laterality: bilateral (5) Asthma Current Visit: Yes Status: Chronic (6) Chronic heart failure with preserved ejection fraction (HFpEF) Current Visit: Yes Status: Chronic (7) ALPHONSO (acute kidney injury) Current Visit: Yes Status: Acute (8) Transaminitis Current Visit: Yes Status: Acute (9) Anemia Current Visit: Yes Status: Acute (10) NSTEMI (non-ST elevated myocardial infarction) Current Visit: Yes Status: Acute (11) Left leg DVT Onset Date: ~12/2019 Current Visit: Yes Status: Chronic (12) KAM (obstructive sleep apnea) Current Visit: Yes Status: Chronic (13) H/O: HTN (hypertension) Current Visit: Yes Status: Chronic (14) HLD (hyperlipidemia) Current Visit: Yes Status: Chronic Qualifiers: Hyperlipidemia type: mixed hyperlipidemia Qualified Code(s): E78.2 - Mixed hyperlipidemia (15) DM2 (diabetes mellitus, type 2) Current Visit: Yes Status: Chronic Subjective Date of service: 03/04/21 Principal diagnosis: NSTEMI 2 Interval history: Agitated this AM. Per RN, small blood clots noted during suction overnight and this AM. Tele reviewed - SR 80s (up to 120s intermittently w/agitation), no events overnight. Objective Last Vital Signs Temp 98.8 F 03/04/21 08:00 Pulse 108 H 03/04/21 08:00 Resp 17 03/04/21 08:00 BP 145/71 03/04/21 08:00 Pulse Ox 100 03/04/21 08:00 - Physical Examination General: Other (intubated) HEENT: Positive: Normocephaly Neck: Positive: neck supple, trachea midline Cardiac: Positive: Reg Rate and Rhythm, S1/S2 Lungs: Positive: Ventilated Respirations Neuro: Positive: Other (intubated) Abdomen: Positive: Soft Skin: Positive: Clear Musculoskeletal: No Fluid Collection Extremities: Present: lower extr. pulses, edema (BLE) - Labs and Meds Cardiac Enzymes 03/04/21 Range/Units 05:26 AST 123 H (5-40) units/L Coagulation 03/04/21 Range/Units 10:17 PT 15.6 H (12.2-14.9) Sec. INR 1.18 H (0.87-1.13) CBC 03/04/21 03/04/21 Range/Units 05:26 10:17 WBC 10.0 (4.5-11.0) K/mm3 RBC 2.51 L (3.65-5.03) M/mm3 Hgb 7.9 L 8.3 L (11.8-15.2) gm/dl Hct 23.7 L 25.3 L (35.5-45.6) % Plt Count 225 223 (140-440) K/mm3 Comprehensive Metabolic Panel 03/03/21 03/04/21 Range/Units 16:25 05:26 Sodium 137 (137-145) mmol/L Potassium 3.9 (3.6-5.0) mmol/L Chloride 91.0 L (98-107) mmol/L Carbon Dioxide 34 H (22-30) mmol/L BUN 47 H (9-20) mg/dL Creatinine 1.7 H (0.8-1.3) mg/dL Glucose 190 H (75-100) mg/dL Calcium 7.6 L (8.4-10.2) mg/dL Direct Bilirubin 0.6 H (0-0.2) mg/dL Indirect Bilirubin 0.2 mg/dL AST 123 H (5-40) units/L ALT 105 H (7-56) units/L Alkaline Phosphatase 232 H (35-129) units/L Total Protein 4.8 L (6.3-8.2) g/dL Albumin 2.2 L (3.9-5) g/dL - Imaging and Cardiology EKG: report reviewed, image reviewed Echo: pending - Telemetry EKG Rhythm: Sinus Rhythm - Allied health notes Allied health notes reviewed: nursing
--- NOTE | 2021-03-04 11:19 | Progress Note ---
Subjective Date of service: 03/04/21 Principal diagnosis: Ac hypoxemic resp failure; NSTEMI; ALPHONSO; Sepsis; PNA; CHF; DM II; AMS Interval history: Patient sitting in intubated [place] tachy 120s on monitor Objective Last Vital Signs Temp 98.8 F 03/04/21 08:00 Pulse 108 H 03/04/21 08:00 Resp 17 03/04/21 08:00 BP 145/71 03/04/21 08:00 Pulse Ox 100 03/04/21 08:00 - Physical Examination General: No Apparent Distress HEENT: Positive: PERRL, Mucus Membranes Moist Neck: Positive: neck supple, trachea midline Cardiac: Positive: Reg Rate and Rhythm Lungs: Positive: Ventilated Respirations Neuro: Positive: Grossly Intact, Other (sedated) Abdomen: Positive: Soft, Active Bowel Sounds. Negative: Tender, Distended Skin: Positive: Clear Incision: Cardiac Cath Site Musculoskeletal: No Pain, Normal Range of Motion Extremities: Present: normal. Absent: edema - Labs and Meds Cardiac Enzymes 03/04/21 Range/Units 05:26 AST 123 H (5-40) units/L Coagulation 03/04/21 Range/Units 10:17 PT 15.6 H (12.2-14.9) Sec. INR 1.18 H (0.87-1.13) CBC 03/04/21 03/04/21 Range/Units 05:26 10:17 WBC 10.0 (4.5-11.0) K/mm3 RBC 2.51 L (3.65-5.03) M/mm3 Hgb 7.9 L 8.3 L (11.8-15.2) gm/dl Hct 23.7 L 25.3 L (35.5-45.6) % Plt Count 225 223 (140-440) K/mm3 Comprehensive Metabolic Panel 03/03/21 03/04/21 Range/Units 16:25 05:26 Sodium 137 (137-145) mmol/L Potassium 3.9 (3.6-5.0) mmol/L Chloride 91.0 L (98-107) mmol/L Carbon Dioxide 34 H (22-30) mmol/L BUN 47 H (9-20) mg/dL Creatinine 1.7 H (0.8-1.3) mg/dL Glucose 190 H (75-100) mg/dL Calcium 7.6 L (8.4-10.2) mg/dL Direct Bilirubin 0.6 H (0-0.2) mg/dL Indirect Bilirubin 0.2 mg/dL AST 123 H (5-40) units/L ALT 105 H (7-56) units/L Alkaline Phosphatase 232 H (35-129) units/L Total Protein 4.8 L (6.3-8.2) g/dL Albumin 2.2 L (3.9-5) g/dL - Imaging and Cardiology Echo: pending - Telemetry EKG Rhythm: Sinus Tachycardia - EKG Sinus rhythms and dysrhythmias: sinus tachycardia - Allied health notes Allied health notes reviewed: nursing
[2021-03-04] MEDS: INSULIN LISPRO 100 UNIT/ML SUB-Q SCH ×2 (11:39→18:09)
--- NOTE | 2021-03-04 12:25 | Progress Note ---
Assessment and Plan Acute hypoxemic respiratory failure NSTEMI Acute kidney injury Severe sepsis Bilateral pneumonia H/O congestive heart failure Diabetes type 2 Acute encephalopathy Elevated serum transaminases Anemia that is microcytic Leukocytosis Metabolic acidosis Lactic acidosis - resume IV Heparin (Acute P.E. is main explanation for hypoxemia and risks of non treatment could be catastrophic) - H&H q6h X 2 draws and follow am CBC - discontinue ceron catheter - de-escalate AB's to Levaquin monotherapy and complete 5 days for empiric CAP coverage - increased peep to 10 cm H2O - repeat lactate level WNL - continue care as below otherwise; - continue Daily SAT and SBT assessment as tolerated - continue to wean supplemental oxygen for target O2 sat's > 90% acutely - VAP bundle addressed - continue lung protective strategies - continue bronchodilators with pulmonary hygiene per RT - wean per pulmonary driven protocols otherwise - continue accuchecks with glycemic control per SSI (While critically ill target blood glucose of 140-180 mg/dL; avoid hypoglycemia) - sedation prn for target RASS 0 to -1 - avoid nephrotoxins, renally dose all medications - continue to avoid benzodiazepine's, reduce the possibility of delirium - complete AB's per ID rec's (Vancomycin, Levaquin) - prn analgesia per CPOT score - Maintenance of sleep-wake cycle, avoid delirium - continue enteral nutritional support at goal rate as tolerated - G.I. & VTE prophylaxis - PT/OT/ROM exercises - continue mobility protocols for pressure ulcer prophylaxis - Monitor hemodynamics closely - continue other care per attending / other consultants - discharge planning ongoing concurrently .... Re-evaluate in am & prn CONDITION: CRITICAL PROGNOSIS: GUARDED CODE STATUS: FULL CODE The high probability of a clinically significant, sudden or life-threatening deterioration of the [respiratory, cardiovascular & neurologic] system(s) required my full and direct attention, intervention and personal management. The aggregate critical care time was [36] minutes without overlap. Time includes spent on; [x] Data Review and interpretation [x] Patient assessment and monitoring of vital signs [x] Documentation [x] Medication orders and management Subjective Date of service: 03/04/21 Principal diagnosis: Ac hypoxemic resp failure; NSTEMI; ALPHONSO; Sepsis; PNA; CHF; DM II; AMS Interval history: Patient is seen today for: Acute hypoxemic respiratory failure; NSTEMI; ALPHONSO; Severe sepsis; Pneumonia; CHF; DM II; Acute encephalopathy Seen and examined at bedside; 24hour events reviewed; nursing and respiratory care staff consulted; no adverse overnight events reported to me; resting peacefully in bed; oxygenation has worsened overnight and FiO2 up to 100%; IV Heparin held earlier due to some oropharyngeal bleeding but has slowed down; dopplers reveal DVT's Objective Vital Signs - 12hr 03/04/21 03/04/21 03/04/21 01:00 02:00 03:00 Temperature Pulse Rate 90 90 109 H Pulse Rate [ From Monitor] Respiratory 21 21 22 Rate Blood Pressure 100/52 96/47 97/50 O2 Sat by Pulse 95 95 97 Oximetry 03/04/21 03/04/21 03/04/21 04:00 05:00 06:00 Temperature 98.8 F Pulse Rate 93 H 91 H 86 Pulse Rate [ 94 H From Monitor] Respiratory 22 22 22 Rate Blood Pressure 96/55 101/50 93/48 O2 Sat by Pulse 93 96 96 Oximetry 03/04/21 03/04/21 03/04/21 07:00 07:28 08:00 Temperature 98.1 F 98.8 F Pulse Rate 88 101 H 108 H Pulse Rate [ 108 H From Monitor] Respiratory 22 17 Rate Blood Pressure 92/50 112/66 145/71 O2 Sat by Pulse 93 89 100 Oximetry 03/04/21 03/04/21 03/04/21 09:00 10:00 11:00 Temperature Pulse Rate 99 H 100 H 112 H Pulse Rate [ From Monitor] Respiratory 22 15 15 Rate Blood Pressure 101/57 118/64 115/66 O2 Sat by Pulse 100 98 96 Oximetry 03/04/21 03/04/21 03/04/21 11:30 11:54 12:00 Temperature 99.7 F H 98.8 F Pulse Rate 118 H 110 H Pulse Rate [ 110 H From Monitor] Respiratory 17 Rate Blood Pressure 108/57 103/52 O2 Sat by Pulse 100 97 Oximetry Constitutional: no acute distress, other (middle aged obese male without significant ventiulator dyssynchrony) Eyes: non-icteric ENT: oropharynx moist, other (ETT 24 cm CLINT) Neck: supple, no lymphadenopathy, no JVD, other (large circumference) Effort: mildly labored Ascultation: Bilateral: diminished breath sounds, rhonchi Percussion: Bilateral: not dull Cardiovascular: regular rate and rhythm Gastrointestinal: normoactive bowel sounds, soft, non-tender, non-distended (protuberant) Integumentary: normal Extremities: no cyanosis, pulses normal, no ischemia or petechiae, edema (trace) Neurologic: non-focal exam (grossly), pupils equal and round, CN II-XII normal, motor strength normal and Psychiatric: other (sedated) CBC and BMP: 03/04/21 10:17 03/04/21 10:17 ABG, PT/INR, D-dimer: ABG ABG pH 7.402 (7.320-7.450) 03/04/21 03:47 POC ABG pCO2 57.3 mmHg (32.0-48.0) H 03/04/21 03:47 POC ABG pO2 63.7 mmHg (83-108) L 03/04/21 03:47 POC ABG HCO3 34.9 03/04/21 03:47 ABG O2 Saturation 89.5 (0-100) 03/04/21 03:47 PT/INR, D-dimer PT 15.6 Sec. (12.2-14.9) H 03/04/21 10:17 INR 1.18 (0.87-1.13) H 03/04/21 10:17 Abnormal lab findings: Abnormal Labs 03/01/21 03/01/21 03/01/21 19:15 19:21 19:21 WBC 12.7 H RBC 2.77 L Hgb 9.1 L Hct 27.7 L MCV 100 H MCH 33 H RDW 18.0 H Seg Neutrophils % Monocytes % (Manual) 17.0 H Seg Neutrophils # Monocytes # (Manual) 2.2 H PT INR Heparin Anti-Xa Level ABG pH POC ABG pCO2 POC ABG pO2 64.9 L ABG Hemoglobin 9.3 L ABG Oxyhemoglobin 93.0 L ABG Sodium 133.8 L ABG Potassium ABG Chloride 97.0 L ABG Glucose 191 H Carboxyhemoglobin Sodium Chloride Carbon Dioxide BUN Creatinine Glucose POC Glucose Lactic Acid Calcium Phosphorus Total Bilirubin Direct Bilirubin AST ALT Alkaline Phosphatase Ammonia Troponin T 0.493 H* Total Protein Albumin Triglycerides 400 H Cholesterol 232 H HDL Cholesterol 22 L Lipase Arterial Blood Glucose 191 H Arterial Blood Ionized Calcium 4.4 L Salicylates Acetaminophen 03/01/21 03/01/21 03/01/21 19:21 19:21 19:21 WBC RBC Hgb Hct MCV MCH RDW Seg Neutrophils % Monocytes % (Manual) Seg Neutrophils # Monocytes # (Manual) PT 16.6 H INR 1.28 H Heparin Anti-Xa Level ABG pH POC ABG pCO2 POC ABG pO2 ABG Hemoglobin ABG Oxyhemoglobin ABG Sodium ABG Potassium ABG Chloride ABG Glucose Carboxyhemoglobin Sodium 132 L Chloride 92.2 L Carbon Dioxide BUN 43 H Creatinine 2.4 H Glucose 190 H POC Glucose Lactic Acid 2.90 H* Calcium Phosphorus Total Bilirubin 1.60 H Direct Bilirubin 1.2 H AST 275 H ALT 156 H Alkaline Phosphatase 282 H Ammonia Troponin T Total Protein 5.8 L Albumin 2.6 L Triglycerides Cholesterol HDL Cholesterol Lipase 120 H Arterial Blood Glucose Arterial Blood Ionized Calcium Salicylates Acetaminophen 03/01/21 03/01/21 03/01/21 19:21 19:21 19:21 WBC RBC Hgb Hct MCV MCH RDW Seg Neutrophils % Monocytes % (Manual) Seg Neutrophils # Monocytes # (Manual) PT INR Heparin Anti-Xa Level ABG pH POC ABG pCO2 POC ABG pO2 ABG Hemoglobin ABG Oxyhemoglobin ABG Sodium ABG Potassium ABG Chloride ABG Glucose Carboxyhemoglobin Sodium Chloride Carbon Dioxide BUN Creatinine Glucose POC Glucose Lactic Acid Calcium Phosphorus Total Bilirubin Direct Bilirubin AST ALT Alkaline Phosphatase Ammonia 71.0 H Troponin T Total Protein Albumin Triglycerides Cholesterol HDL Cholesterol Lipase Arterial Blood Glucose Arterial Blood Ionized Calcium Salicylates < 0.3 L Acetaminophen 5.0 L 03/01/21 03/01/21 03/02/21 20:55 20:55 00:01 WBC RBC Hgb Hct MCV MCH RDW Seg Neutrophils % Monocytes % (Manual) Seg Neutrophils # Monocytes # (Manual) PT INR Heparin Anti-Xa Level ABG pH 7.234 L POC ABG pCO2 POC ABG pO2 240.5 H ABG Hemoglobin 9.3 L ABG Oxyhemoglobin 99.1 H ABG Sodium 135.3 L ABG Potassium ABG Chloride ABG Glucose 286 H Carboxyhemoglobin 0.3 L Sodium Chloride Carbon Dioxide BUN Creatinine Glucose POC Glucose Lactic Acid 4.30 H* Calcium Phosphorus Total Bilirubin Direct Bilirubin AST ALT Alkaline Phosphatase Ammonia Troponin T 0.484 H* Total Protein Albumin Triglycerides Cholesterol HDL Cholesterol Lipase Arterial Blood Glucose 286 H Arterial Blood Ionized Calcium Salicylates Acetaminophen 03/02/21 03/02/21 03/02/21 03:42 05:23 06:35 WBC RBC Hgb Hct MCV MCH RDW Seg Neutrophils % Monocytes % (Manual) Seg Neutrophils # Monocytes # (Manual) PT INR Heparin Anti-Xa Level ABG pH 7.225 L POC ABG pCO2 POC ABG pO2 181.8 H ABG Hemoglobin 9.4 L ABG Oxyhemoglobin 98.6 H ABG Sodium 132.1 L ABG Potassium 5.0 H ABG Chloride ABG Glucose 454 H Carboxyhemoglobin 0.3 L Sodium Chloride Carbon Dioxide BUN Creatinine Glucose POC Glucose 410 H Lactic Acid 7.50 H* Calcium Phosphorus Total Bilirubin Direct Bilirubin AST ALT Alkaline Phosphatase Ammonia Troponin T Total Protein Albumin Triglycerides Cholesterol HDL Cholesterol Lipase Arterial Blood Glucose 454 H Arterial Blood Ionized Calcium 4.2 L Salicylates Acetaminophen 03/02/21 03/02/21 03/02/21 10:48 10:48 10:48 WBC RBC Hgb Hct MCV MCH RDW Seg Neutrophils % Monocytes % (Manual) Seg Neutrophils # Monocytes # (Manual) PT INR Heparin Anti-Xa Level ABG pH POC ABG pCO2 POC ABG pO2 ABG Hemoglobin ABG Oxyhemoglobin ABG Sodium ABG Potassium ABG Chloride ABG Glucose Carboxyhemoglobin Sodium 132 L Chloride 93.3 L Carbon Dioxide 20 L BUN 46 H Creatinine 1.9 H Glucose 503 H* POC Glucose Lactic Acid 3.40 H* Calcium 7.9 L Phosphorus 5.80 H Total Bilirubin Direct Bilirubin AST ALT Alkaline Phosphatase Ammonia Troponin T Total Protein Albumin Triglycerides Cholesterol HDL Cholesterol Lipase Arterial Blood Glucose Arterial Blood Ionized Calcium Salicylates Acetaminophen 03/02/21 03/02/21 03/02/21 11:23 11:38 15:33 WBC RBC Hgb Hct MCV MCH RDW Seg Neutrophils % Monocytes % (Manual) Seg Neutrophils # Monocytes # (Manual) PT INR Heparin Anti-Xa Level ABG pH 7.318 L POC ABG pCO2 POC ABG pO2 ABG Hemoglobin 9.2 L ABG Oxyhemoglobin ABG Sodium 133.2 L ABG Potassium ABG Chloride ABG Glucose 504 H Carboxyhemoglobin 0.3 L Sodium Chloride Carbon Dioxide BUN Creatinine Glucose POC Glucose 468 H 445 H Lactic Acid Calcium Phosphorus Total Bilirubin Direct Bilirubin AST ALT Alkaline Phosphatase Ammonia Troponin T Total Protein Albumin Triglycerides Cholesterol HDL Cholesterol Lipase Arterial Blood Glucose 504 H Arterial Blood Ionized Calcium 4.2 L Salicylates Acetaminophen 03/02/21 03/02/21 03/02/21 16:28 16:28 16:28 WBC RBC Hgb 8.8 L Hct 26.0 L MCV MCH RDW Seg Neutrophils % Monocytes % (Manual) Seg Neutrophils # Monocytes # (Manual) PT 15.2 H INR 1.14 H Heparin Anti-Xa Level ABG pH POC ABG pCO2 POC ABG pO2 ABG Hemoglobin ABG Oxyhemoglobin ABG Sodium ABG Potassium ABG Chloride ABG Glucose Carboxyhemoglobin Sodium 135 L Chloride 93.8 L Carbon Dioxide BUN 48 H Creatinine 1.8 H Glucose 454 H POC Glucose Lactic Acid Calcium 7.6 L Phosphorus Total Bilirubin Direct Bilirubin AST ALT Alkaline Phosphatase Ammonia Troponin T Total Protein Albumin Triglycerides Cholesterol HDL Cholesterol Lipase Arterial Blood Glucose Arterial Blood Ionized Calcium Salicylates Acetaminophen 03/02/21 03/02/21 03/02/21 17:39 18:52 20:09 WBC RBC Hgb Hct MCV MCH RDW Seg Neutrophils % Monocytes % (Manual) Seg Neutrophils # Monocytes # (Manual) PT INR Heparin Anti-Xa Level ABG pH POC ABG pCO2 POC ABG pO2 ABG Hemoglobin ABG Oxyhemoglobin ABG Sodium ABG Potassium ABG Chloride ABG Glucose Carboxyhemoglobin Sodium Chloride Carbon Dioxide BUN Creatinine Glucose POC Glucose 404 H 357 H 347 H Lactic Acid Calcium Phosphorus Total Bilirubin Direct Bilirubin AST ALT Alkaline Phosphatase Ammonia Troponin T Total Protein Albumin Triglycerides Cholesterol HDL Cholesterol Lipase Arterial Blood Glucose Arterial Blood Ionized Calcium Salicylates Acetaminophen 03/02/21 03/02/21 03/02/21 21:03 22:00 22:55 WBC RBC Hgb Hct MCV MCH RDW Seg Neutrophils % Monocytes % (Manual) Seg Neutrophils # Monocytes # (Manual) PT INR Heparin Anti-Xa Level ABG pH POC ABG pCO2 POC ABG pO2 ABG Hemoglobin ABG Oxyhemoglobin ABG Sodium ABG Potassium ABG Chloride ABG Glucose Carboxyhemoglobin Sodium Chloride Carbon Dioxide BUN Creatinine Glucose POC Glucose 307 H 270 H 237 H Lactic Acid Calcium Phosphorus Total Bilirubin Direct Bilirubin AST ALT Alkaline Phosphatase Ammonia Troponin T Total Protein Albumin Triglycerides Cholesterol HDL Cholesterol Lipase Arterial Blood Glucose Arterial Blood Ionized Calcium Salicylates Acetaminophen 03/03/21 03/03/21 03/03/21 00:02 00:57 02:01 WBC RBC Hgb Hct MCV MCH RDW Seg Neutrophils % Monocytes % (Manual) Seg Neutrophils # Monocytes # (Manual) PT INR Heparin Anti-Xa Level ABG pH POC ABG pCO2 POC ABG pO2 ABG Hemoglobin ABG Oxyhemoglobin ABG Sodium ABG Potassium ABG Chloride ABG Glucose Carboxyhemoglobin Sodium Chloride Carbon Dioxide BUN Creatinine Glucose POC Glucose 252 H 214 H 261 H Lactic Acid Calcium Phosphorus Total Bilirubin Direct Bilirubin AST ALT Alkaline Phosphatase Ammonia Troponin T Total Protein Albumin Triglycerides Cholesterol HDL Cholesterol Lipase Arterial Blood Glucose Arterial Blood Ionized Calcium Salicylates Acetaminophen 03/03/21 03/03/21 03/03/21 03:07 03:10 03:50 WBC 13.7 H RBC 2.69 L Hgb 8.7 L Hct 26.9 L MCV 100 H MCH RDW 18.5 H Seg Neutrophils % 79.0 H Monocytes % (Manual) Seg Neutrophils # 10.8 H Monocytes # (Manual) PT INR Heparin Anti-Xa Level ABG pH POC ABG pCO2 50.9 H POC ABG pO2 81.9 L ABG Hemoglobin 8.7 L ABG Oxyhemoglobin ABG Sodium 134.2 L ABG Potassium ABG Chloride 96.0 L ABG Glucose 279 H Carboxyhemoglobin 0.4 L Sodium Chloride Carbon Dioxide BUN Creatinine Glucose POC Glucose 276 H Lactic Acid Calcium Phosphorus Total Bilirubin Direct Bilirubin AST ALT Alkaline Phosphatase Ammonia Troponin T Total Protein Albumin Triglycerides Cholesterol HDL Cholesterol Lipase Arterial Blood Glucose 279 H Arterial Blood Ionized Calcium 3.9 L Salicylates Acetaminophen 03/03/21 03/03/21 03/03/21 03:50 04:06 04:32 WBC RBC Hgb Hct MCV MCH RDW Seg Neutrophils % Monocytes % (Manual) Seg Neutrophils # Monocytes # (Manual) PT INR Heparin Anti-Xa Level ABG pH POC ABG pCO2 POC ABG pO2 ABG Hemoglobin ABG Oxyhemoglobin ABG Sodium ABG Potassium ABG Chloride ABG Glucose Carboxyhemoglobin Sodium Chloride 94.2 L Carbon Dioxide BUN 45 H Creatinine 1.9 H Glucose 261 H POC Glucose 256 H Lactic Acid Calcium 7.3 L Phosphorus Total Bilirubin Direct Bilirubin 0.9 H AST 208 H ALT 148 H Alkaline Phosphatase 251 H Ammonia Troponin T Total Protein 5.5 L Albumin 2.4 L Triglycerides Cholesterol HDL Cholesterol Lipase Arterial Blood Glucose Arterial Blood Ionized Calcium Salicylates Acetaminophen 03/03/21 03/03/21 03/03/21 05:23 06:06 07:07 WBC RBC Hgb Hct MCV MCH RDW Seg Neutrophils % Monocytes % (Manual) Seg Neutrophils # Monocytes # (Manual) PT INR Heparin Anti-Xa Level ABG pH POC ABG pCO2 POC ABG pO2 ABG Hemoglobin ABG Oxyhemoglobin ABG Sodium ABG Potassium ABG Chloride ABG Glucose Carboxyhemoglobin Sodium Chloride Carbon Dioxide BUN Creatinine Glucose POC Glucose 214 H 249 H 237 H Lactic Acid Calcium Phosphorus Total Bilirubin Direct Bilirubin AST ALT Alkaline Phosphatase Ammonia Troponin T Total Protein Albumin Triglycerides Cholesterol HDL Cholesterol Lipase Arterial Blood Glucose Arterial Blood Ionized Calcium Salicylates Acetaminophen 03/03/21 03/03/21 03/03/21 07:58 08:58 09:52 WBC RBC Hgb Hct MCV MCH RDW Seg Neutrophils % Monocytes % (Manual) Seg Neutrophils # Monocytes # (Manual) PT INR Heparin Anti-Xa Level ABG pH POC ABG pCO2 POC ABG pO2 ABG Hemoglobin ABG Oxyhemoglobin ABG Sodium ABG Potassium ABG Chloride ABG Glucose Carboxyhemoglobin Sodium Chloride Carbon Dioxide BUN Creatinine Glucose POC Glucose 227 H 215 H 207 H Lactic Acid Calcium Phosphorus Total Bilirubin Direct Bilirubin AST ALT Alkaline Phosphatase Ammonia Troponin T Total Protein Albumin Triglycerides Cholesterol HDL Cholesterol Lipase Arterial Blood Glucose Arterial Blood Ionized Calcium Salicylates Acetaminophen 03/03/21 03/03/21 03/03/21 10:55 11:44 12:53 WBC RBC Hgb Hct MCV MCH RDW Seg Neutrophils % Monocytes % (Manual) Seg Neutrophils # Monocytes # (Manual) PT INR Heparin Anti-Xa Level ABG pH POC ABG pCO2 POC ABG pO2 ABG Hemoglobin ABG Oxyhemoglobin ABG Sodium ABG Potassium ABG Chloride ABG Glucose Carboxyhemoglobin Sodium Chloride Carbon Dioxide BUN Creatinine Glucose POC Glucose 198 H 210 H 203 H Lactic Acid Calcium Phosphorus Total Bilirubin Direct Bilirubin AST ALT Alkaline Phosphatase Ammonia Troponin T Total Protein Albumin Triglycerides Cholesterol HDL Cholesterol Lipase Arterial Blood Glucose Arterial Blood Ionized Calcium Salicylates Acetaminophen 03/03/21 03/03/21 03/03/21 13:53 14:58 15:23 WBC RBC Hgb Hct MCV MCH RDW Seg Neutrophils % Monocytes % (Manual) Seg Neutrophils # Monocytes # (Manual) PT INR Heparin Anti-Xa Level ABG pH POC ABG pCO2 POC ABG pO2 ABG Hemoglobin ABG Oxyhemoglobin ABG Sodium ABG Potassium ABG Chloride ABG Glucose Carboxyhemoglobin Sodium Chloride Carbon Dioxide BUN Creatinine Glucose POC Glucose 210 H 187 H Lactic Acid 3.10 H* Calcium Phosphorus Total Bilirubin Direct Bilirubin AST ALT Alkaline Phosphatase Ammonia Troponin T Total Protein Albumin Triglycerides Cholesterol HDL Cholesterol Lipase Arterial Blood Glucose Arterial Blood Ionized Calcium Salicylates Acetaminophen 03/03/21 03/03/21 03/03/21 15:51 16:25 16:53 WBC RBC Hgb Hct MCV MCH RDW Seg Neutrophils % Monocytes % (Manual) Seg Neutrophils # Monocytes # (Manual) PT INR Heparin Anti-Xa Level ABG pH POC ABG pCO2 POC ABG pO2 ABG Hemoglobin ABG Oxyhemoglobin ABG Sodium ABG Potassium ABG Chloride ABG Glucose Carboxyhemoglobin Sodium Chloride 91.0 L Carbon Dioxide 34 H BUN 47 H Creatinine 1.7 H Glucose 190 H POC Glucose 182 H 179 H Lactic Acid Calcium 7.6 L Phosphorus Total Bilirubin Direct Bilirubin AST ALT Alkaline Phosphatase Ammonia Troponin T Total Protein Albumin Triglycerides Cholesterol HDL Cholesterol Lipase Arterial Blood Glucose Arterial Blood Ionized Calcium Salicylates Acetaminophen 03/03/21 03/03/21 03/03/21 17:55 19:37 20:57 WBC RBC Hgb Hct MCV MCH RDW Seg Neutrophils % Monocytes % (Manual) Seg Neutrophils # Monocytes # (Manual) PT INR Heparin Anti-Xa Level ABG pH POC ABG pCO2 POC ABG pO2 ABG Hemoglobin ABG Oxyhemoglobin ABG Sodium ABG Potassium ABG Chloride ABG Glucose Carboxyhemoglobin Sodium Chloride Carbon Dioxide BUN Creatinine Glucose POC Glucose 185 H 174 H 175 H Lactic Acid Calcium Phosphorus Total Bilirubin Direct Bilirubin AST ALT Alkaline Phosphatase Ammonia Troponin T Total Protein Albumin Triglycerides Cholesterol HDL Cholesterol Lipase Arterial Blood Glucose Arterial Blood Ionized Calcium Salicylates Acetaminophen 03/03/21 03/03/21 03/03/21 22:02 22:56 23:10 WBC RBC Hgb Hct MCV MCH RDW Seg Neutrophils % Monocytes % (Manual) Seg Neutrophils # Monocytes # (Manual) PT INR Heparin Anti-Xa Level 0.75 H ABG pH POC ABG pCO2 POC ABG pO2 ABG Hemoglobin ABG Oxyhemoglobin ABG Sodium ABG Potassium ABG Chloride ABG Glucose Carboxyhemoglobin Sodium Chloride Carbon Dioxide BUN Creatinine Glucose POC Glucose 170 H 160 H Lactic Acid Calcium Phosphorus Total Bilirubin Direct Bilirubin AST ALT Alkaline Phosphatase Ammonia Troponin T Total Protein Albumin Triglycerides Cholesterol HDL Cholesterol Lipase Arterial Blood Glucose Arterial Blood Ionized Calcium Salicylates Acetaminophen 03/03/21 03/04/21 03/04/21 23:42 00:52 01:55 WBC RBC Hgb Hct MCV MCH RDW Seg Neutrophils % Monocytes % (Manual) Seg Neutrophils # Monocytes # (Manual) PT INR Heparin Anti-Xa Level ABG pH POC ABG pCO2 POC ABG pO2 ABG Hemoglobin ABG Oxyhemoglobin ABG Sodium ABG Potassium ABG Chloride ABG Glucose Carboxyhemoglobin Sodium Chloride Carbon Dioxide BUN Creatinine Glucose POC Glucose 161 H 167 H 119 H Lactic Acid Calcium Phosphorus Total Bilirubin Direct Bilirubin AST ALT Alkaline Phosphatase Ammonia Troponin T Total Protein Albumin Triglycerides Cholesterol HDL Cholesterol Lipase Arterial Blood Glucose Arterial Blood Ionized Calcium Salicylates Acetaminophen 03/04/21 03/04/21 03/04/21 02:58 03:47 04:03 WBC RBC Hgb Hct MCV MCH RDW Seg Neutrophils % Monocytes % (Manual) Seg Neutrophils # Monocytes # (Manual) PT INR Heparin Anti-Xa Level ABG pH POC ABG pCO2 57.3 H POC ABG pO2 63.7 L ABG Hemoglobin 8.4 L ABG Oxyhemoglobin 88.6 L ABG Sodium 132.5 L ABG Potassium 3.2 L ABG Chloride 94.0 L ABG Glucose 129 H Carboxyhemoglobin Sodium Chloride Carbon Dioxide BUN Creatinine Glucose POC Glucose 111 H 122 H Lactic Acid Calcium Phosphorus Total Bilirubin Direct Bilirubin AST ALT Alkaline Phosphatase Ammonia Troponin T Total Protein Albumin Triglycerides Cholesterol HDL Cholesterol Lipase Arterial Blood Glucose 129 H Arterial Blood Ionized Calcium 3.8 L Salicylates Acetaminophen 03/04/21 03/04/21 03/04/21 05:15 05:26 05:26 WBC RBC Hgb 7.9 L Hct 23.7 L MCV MCH RDW Seg Neutrophils % Monocytes % (Manual) Seg Neutrophils # Monocytes # (Manual) PT INR Heparin Anti-Xa Level ABG pH POC ABG pCO2 POC ABG pO2 ABG Hemoglobin ABG Oxyhemoglobin ABG Sodium ABG Potassium ABG Chloride ABG Glucose Carboxyhemoglobin Sodium Chloride Carbon Dioxide BUN Creatinine Glucose POC Glucose 127 H Lactic Acid Calcium Phosphorus Total Bilirubin Direct Bilirubin 0.6 H AST 123 H ALT 105 H Alkaline Phosphatase 232 H Ammonia Troponin T Total Protein 4.8 L Albumin 2.2 L Triglycerides Cholesterol HDL Cholesterol Lipase Arterial Blood Glucose Arterial Blood Ionized Calcium Salicylates Acetaminophen 03/04/21 03/04/21 03/04/21 05:26 06:01 06:53 WBC RBC Hgb Hct MCV MCH RDW Seg Neutrophils % Monocytes % (Manual) Seg Neutrophils # Monocytes # (Manual) PT INR Heparin Anti-Xa Level 0.71 H ABG pH POC ABG pCO2 POC ABG pO2 ABG Hemoglobin ABG Oxyhemoglobin ABG Sodium ABG Potassium ABG Chloride ABG Glucose Carboxyhemoglobin Sodium Chloride Carbon Dioxide BUN Creatinine Glucose POC Glucose 120 H 117 H Lactic Acid Calcium Phosphorus Total Bilirubin Direct Bilirubin AST ALT Alkaline Phosphatase Ammonia Troponin T Total Protein Albumin Triglycerides Cholesterol HDL Cholesterol Lipase Arterial Blood Glucose Arterial Blood Ionized Calcium Salicylates Acetaminophen 03/04/21 03/04/21 03/04/21 07:57 10:17 10:17 WBC RBC 2.51 L Hgb 8.3 L Hct 25.3 L MCV 101 H MCH 33 H RDW 18.5 H Seg Neutrophils % Monocytes % (Manual) Seg Neutrophils # Monocytes # (Manual) PT INR Heparin Anti-Xa Level ABG pH POC ABG pCO2 POC ABG pO2 ABG Hemoglobin ABG Oxyhemoglobin ABG Sodium ABG Potassium ABG Chloride ABG Glucose Carboxyhemoglobin Sodium 136 L Chloride 93.1 L Carbon Dioxide 33 H BUN 46 H Creatinine 1.4 H Glucose 151 H POC Glucose 129 H Lactic Acid Calcium 7.5 L Phosphorus Total Bilirubin Direct Bilirubin AST 126 H ALT 100 H Alkaline Phosphatase 226 H Ammonia Troponin T Total Protein 5.0 L Albumin 2.2 L Triglycerides Cholesterol HDL Cholesterol Lipase Arterial Blood Glucose Arterial Blood Ionized Calcium Salicylates Acetaminophen 03/04/21 03/04/21 03/04/21 10:17 10:17 11:26 WBC RBC Hgb Hct MCV MCH RDW Seg Neutrophils % Monocytes % (Manual) Seg Neutrophils # Monocytes # (Manual) PT 15.6 H INR 1.18 H Heparin Anti-Xa Level ABG pH POC ABG pCO2 POC ABG pO2 ABG Hemoglobin ABG Oxyhemoglobin ABG Sodium ABG Potassium ABG Chloride ABG Glucose Carboxyhemoglobin Sodium Chloride Carbon Dioxide BUN Creatinine Glucose POC Glucose 167 H Lactic Acid Calcium Phosphorus Total Bilirubin Direct Bilirubin AST ALT Alkaline Phosphatase Ammonia Troponin T Total Protein Albumin Triglycerides Cholesterol HDL Cholesterol Lipase 78 H Arterial Blood Glucose Arterial Blood Ionized Calcium Salicylates Acetaminophen Chest x-ray: image reviewed (no new infiltrate; mild interstitial edema and LLL blunting) Allied health notes reviewed: nursing
[2021-03-04] MEDS ORDERED: HEPARIN 10,000 UNITS/10 ML VIAL IV PRN (14:33)
--- NOTE | 2021-03-04 15:07 | Vascular Lab Report ---
DUPLEX DOPPLER LOWER EXTREMITY VEINS, BILATERAL INDICATION / CLINICAL INFORMATION: Lower extremity swelling TECHNIQUE: Duplex doppler imaging was performed through the veins of both lower extremities using sebastien ous compression and other maneuvers. COMPARISON: None available. FINDINGS: RIGHT COMMON FEMORAL VEIN: Negative. RIGHT FEMORAL VEIN: Negative. RIGHT POPLITEAL VEIN: Negative. RIGHT CALF VEINS: There is occlusive thrombus in the right posterior tibial vein. LEFT COMMON FEMORAL VEIN: Negative. LEFT FEMORAL VEIN: Negative. LEFT POPLITEAL VEIN: Negative. LEFT CALF VEINS: Negative. ADDITIONAL FINDINGS: None. IMPRESSION: 1. Occlusive thrombus in the right posterior tibial vein. The remainder of the veins are patent. Signer Name: Donis Freeman MD Signed: 03/04/2021 3:03 PM Workstation Name: [id number]
--- NOTE | 2021-03-04 16:09 | Gastroenterology Progress Note ---
Assessment and Plan 1. Liver: acute increase in lft's most likely due to shock liver vs other etiology - lft' improving with supportive management - liver serologies negative to date - ultrasound negative - avoid hepatotoxic drugs - follow labs - no changes at this time -copntinue to follow lft's, if situation chnages please call Subjective Date of service: 03/04/21 Principal diagnosis: Ac hypoxemic resp failure; NSTEMI; ALPHONSO; Sepsis; PNA; CHF; DM II; AMS Interval history: - no GI issues overnight per staff Objective - Constitutional Vitals: Temp Pulse Resp BP Pulse Ox 98.8 F 99 H 18 103/57 98 03/04/21 12:00 03/04/21 15:23 03/04/21 14:00 03/04/21 15:23 03/04/21 15:23 General appearance: no acute distress - EENT Eyes: PERRL - Respiratory Respiratory: bilateral: rhonchi - Cardiovascular Rhythm: regular Heart Sounds: Present: S1 & S2 - Gastrointestinal General gastrointestinal: Present: soft, non-tender - Labs CBC & Chem 7: 03/04/21 10:17 03/04/21 10:17 Labs: Laboratory Results - last 24 hr 03/03/21 03/03/21 03/03/21 16:25 16:53 17:55 WBC RBC Hgb Hct MCV MCH MCHC RDW Plt Count PT INR Heparin Anti-Xa Level ABG pH POC ABG pCO2 POC ABG pO2 POC ABG HCO3 ABG O2 Saturation POC ABG Base Excess ABG Hemoglobin ABG Oxyhemoglobin ABG Methemoglobin ABG Sodium ABG Potassium ABG Chloride ABG Glucose Carboxyhemoglobin FiO2 % Sodium 137 Potassium 3.9 Chloride 91.0 L Carbon Dioxide 34 H Anion Gap 16 BUN 47 H Creatinine 1.7 H Estimated GFR 52 BUN/Creatinine Ratio 28 Glucose 190 H POC Glucose 179 H 185 H Lactic Acid Calcium 7.6 L Total Bilirubin Direct Bilirubin Indirect Bilirubin AST ALT Alkaline Phosphatase Total Protein Albumin Albumin/Globulin Ratio Lipase Procalcitonin Arterial Blood Glucose Arterial Blood Ionized Calcium 03/03/21 03/03/21 03/03/21 19:37 20:57 22:02 WBC RBC Hgb Hct MCV MCH MCHC RDW Plt Count PT INR Heparin Anti-Xa Level ABG pH POC ABG pCO2 POC ABG pO2 POC ABG HCO3 ABG O2 Saturation POC ABG Base Excess ABG Hemoglobin ABG Oxyhemoglobin ABG Methemoglobin ABG Sodium ABG Potassium ABG Chloride ABG Glucose Carboxyhemoglobin FiO2 % Sodium Potassium Chloride Carbon Dioxide Anion Gap BUN Creatinine Estimated GFR BUN/Creatinine Ratio Glucose POC Glucose 174 H 175 H 170 H Lactic Acid Calcium Total Bilirubin Direct Bilirubin Indirect Bilirubin AST ALT Alkaline Phosphatase Total Protein Albumin Albumin/Globulin Ratio Lipase Procalcitonin Arterial Blood Glucose Arterial Blood Ionized Calcium 03/03/21 03/03/21 03/03/21 22:56 23:10 23:42 WBC RBC Hgb Hct MCV MCH MCHC RDW Plt Count PT INR Heparin Anti-Xa Level 0.75 H ABG pH POC ABG pCO2 POC ABG pO2 POC ABG HCO3 ABG O2 Saturation POC ABG Base Excess ABG Hemoglobin ABG Oxyhemoglobin ABG Methemoglobin ABG Sodium ABG Potassium ABG Chloride ABG Glucose Carboxyhemoglobin FiO2 % Sodium Potassium Chloride Carbon Dioxide Anion Gap BUN Creatinine Estimated GFR BUN/Creatinine Ratio Glucose POC Glucose 160 H 161 H Lactic Acid Calcium Total Bilirubin Direct Bilirubin Indirect Bilirubin AST ALT Alkaline Phosphatase Total Protein Albumin Albumin/Globulin Ratio Lipase Procalcitonin Arterial Blood Glucose Arterial Blood Ionized Calcium 03/04/21 03/04/21 03/04/21 00:52 01:55 02:58 WBC RBC Hgb Hct MCV MCH MCHC RDW Plt Count PT INR Heparin Anti-Xa Level ABG pH POC ABG pCO2 POC ABG pO2 POC ABG HCO3 ABG O2 Saturation POC ABG Base Excess ABG Hemoglobin ABG Oxyhemoglobin ABG Methemoglobin ABG Sodium ABG Potassium ABG Chloride ABG Glucose Carboxyhemoglobin FiO2 % Sodium Potassium Chloride Carbon Dioxide Anion Gap BUN Creatinine Estimated GFR BUN/Creatinine Ratio Glucose POC Glucose 167 H 119 H 111 H Lactic Acid Calcium Total Bilirubin Direct Bilirubin Indirect Bilirubin AST ALT Alkaline Phosphatase Total Protein Albumin Albumin/Globulin Ratio Lipase Procalcitonin Arterial Blood Glucose Arterial Blood Ionized Calcium 03/04/21 03/04/21 03/04/21 03:47 04:03 05:15 WBC RBC Hgb Hct MCV MCH MCHC RDW Plt Count PT INR Heparin Anti-Xa Level ABG pH 7.402 POC ABG pCO2 57.3 H POC ABG pO2 63.7 L POC ABG HCO3 34.9 ABG O2 Saturation 89.5 POC ABG Base Excess 8.9 ABG Hemoglobin 8.4 L ABG Oxyhemoglobin 88.6 L ABG Methemoglobin 0.3 ABG Sodium 132.5 L ABG Potassium 3.2 L ABG Chloride 94.0 L ABG Glucose 129 H Carboxyhemoglobin 0.7 FiO2 % 60.0 Sodium Potassium Chloride Carbon Dioxide Anion Gap BUN Creatinine Estimated GFR BUN/Creatinine Ratio Glucose POC Glucose 122 H 127 H Lactic Acid Calcium Total Bilirubin Direct Bilirubin Indirect Bilirubin AST ALT Alkaline Phosphatase Total Protein Albumin Albumin/Globulin Ratio Lipase Procalcitonin Arterial Blood Glucose 129 H Arterial Blood Ionized Calcium 3.8 L 03/04/21 03/04/21 03/04/21 05:26 05:26 05:26 WBC RBC Hgb 7.9 L Hct 23.7 L MCV MCH MCHC RDW Plt Count 225 PT INR Heparin Anti-Xa Level ABG pH POC ABG pCO2 POC ABG pO2 POC ABG HCO3 ABG O2 Saturation POC ABG Base Excess ABG Hemoglobin ABG Oxyhemoglobin ABG Methemoglobin ABG Sodium ABG Potassium ABG Chloride ABG Glucose Carboxyhemoglobin FiO2 % Sodium Potassium Chloride Carbon Dioxide Anion Gap BUN Creatinine Estimated GFR BUN/Creatinine Ratio Glucose POC Glucose Lactic Acid 2.00 Calcium Total Bilirubin 0.80 Direct Bilirubin 0.6 H Indirect Bilirubin 0.2 AST 123 H ALT 105 H Alkaline Phosphatase 232 H Total Protein 4.8 L Albumin 2.2 L Albumin/Globulin Ratio 0.8 Lipase Procalcitonin Arterial Blood Glucose Arterial Blood Ionized Calcium 03/04/21 03/04/21 03/04/21 05:26 06:01 06:53 WBC RBC Hgb Hct MCV MCH MCHC RDW Plt Count PT INR Heparin Anti-Xa Level 0.71 H ABG pH POC ABG pCO2 POC ABG pO2 POC ABG HCO3 ABG O2 Saturation POC ABG Base Excess ABG Hemoglobin ABG Oxyhemoglobin ABG Methemoglobin ABG Sodium ABG Potassium ABG Chloride ABG Glucose Carboxyhemoglobin FiO2 % Sodium Potassium Chloride Carbon Dioxide Anion Gap BUN Creatinine Estimated GFR BUN/Creatinine Ratio Glucose POC Glucose 120 H 117 H Lactic Acid Calcium Total Bilirubin Direct Bilirubin Indirect Bilirubin AST ALT Alkaline Phosphatase Total Protein Albumin Albumin/Globulin Ratio Lipase Procalcitonin Arterial Blood Glucose Arterial Blood Ionized Calcium 03/04/21 03/04/21 03/04/21 07:57 10:17 10:17 WBC 10.0 RBC 2.51 L Hgb 8.3 L Hct 25.3 L MCV 101 H MCH 33 H MCHC 33 RDW 18.5 H Plt Count 223 PT INR Heparin Anti-Xa Level ABG pH POC ABG pCO2 POC ABG pO2 POC ABG HCO3 ABG O2 Saturation POC ABG Base Excess ABG Hemoglobin ABG Oxyhemoglobin ABG Methemoglobin ABG Sodium ABG Potassium ABG Chloride ABG Glucose Carboxyhemoglobin FiO2 % Sodium Potassium Chloride Carbon Dioxide Anion Gap BUN Creatinine Estimated GFR BUN/Creatinine Ratio Glucose POC Glucose 129 H Lactic Acid 1.70 Calcium Total Bilirubin Direct Bilirubin Indirect Bilirubin AST ALT Alkaline Phosphatase Total Protein Albumin Albumin/Globulin Ratio Lipase Procalcitonin Arterial Blood Glucose Arterial Blood Ionized Calcium 03/04/21 03/04/21 03/04/21 10:17 10:17 10:17 WBC RBC Hgb Hct MCV MCH MCHC RDW Plt Count PT 15.6 H INR 1.18 H Heparin Anti-Xa Level ABG pH POC ABG pCO2 POC ABG pO2 POC ABG HCO3 ABG O2 Saturation POC ABG Base Excess ABG Hemoglobin ABG Oxyhemoglobin ABG Methemoglobin ABG Sodium ABG Potassium ABG Chloride ABG Glucose Carboxyhemoglobin FiO2 % Sodium 136 L Potassium 3.7 Chloride 93.1 L Carbon Dioxide 33 H Anion Gap 14 BUN 46 H Creatinine 1.4 H Estimated GFR > 60 BUN/Creatinine Ratio 33 Glucose 151 H POC Glucose Lactic Acid Calcium 7.5 L Total Bilirubin 0.90 Direct Bilirubin Indirect Bilirubin AST 126 H ALT 100 H Alkaline Phosphatase 226 H Total Protein 5.0 L Albumin 2.2 L Albumin/Globulin Ratio 0.8 Lipase 78 H Procalcitonin Arterial Blood Glucose Arterial Blood Ionized Calcium 03/04/21 03/04/21 03/04/21 11:26 13:04 13:04 WBC RBC Hgb Hct MCV MCH MCHC RDW Plt Count PT INR Heparin Anti-Xa Level < 0.10 L ABG pH POC ABG pCO2 POC ABG pO2 POC ABG HCO3 ABG O2 Saturation POC ABG Base Excess ABG Hemoglobin ABG Oxyhemoglobin ABG Methemoglobin ABG Sodium ABG Potassium ABG Chloride ABG Glucose Carboxyhemoglobin FiO2 % Sodium Potassium Chloride Carbon Dioxide Anion Gap BUN Creatinine Estimated GFR BUN/Creatinine Ratio Glucose POC Glucose 167 H Lactic Acid Calcium Total Bilirubin Direct Bilirubin Indirect Bilirubin AST ALT Alkaline Phosphatase Total Protein Albumin Albumin/Globulin Ratio Lipase Procalcitonin 0.89 Arterial Blood Glucose Arterial Blood Ionized Calcium
[2021-03-04 16:57] LABS: Hematocrit 23.2 % (35.5-45.6); Hemoglobin 7.7 gm/dl (11.8-15.2)
[2021-03-04] MEDS ORDERED: HEPARIN 5,000 UNIT/1 ML VIAL SUB-Q SCH (22:00)
[2021-03-04] MEDS: INSULIN GLARGINE 100 UNITS/ML SUB-Q SCH (22:34)
--- NOTE | 2021-03-05 02:44 | XRay Report ---
CHEST 1 VIEW 03/05/2021 1:17 AM INDICATION / CLINICAL INFORMATION: follow up respiratory failure. COMPARISON: One view of the chest from 03/04/2021 FINDINGS: SUPPORT DEVICES: Unchanged. HEART / MEDIASTINUM: Stable. LUNGS / PLEURA: Unchanged bilateral pulmonary opacities. No significant pleural effusion. No pneumoth orax. ADDITIONAL FINDINGS: No significant additional findings. IMPRESSION: Stable appearance of the chest. Signer Name: Constantni Reyes MD Signed: 03/05/2021 2:40 AM Workstation Name: [id number]
[2021-03-05] MEDS: INSULIN LISPRO 100 UNIT/ML SUB-Q SCH ×4 (02:46→18:09)
[2021-03-05] MEDS: fentaNYL DRIP Premix 2,000 MCG/100 ML BAG IV SCH ×4 (05:15→19:38)
[2021-03-05] MEDS: HEPARIN/ 0.45% NACL DRIP 25,000 UNIT/500 ML BAG IV SCH ×2 (05:15→22:01)
[2021-03-05] MEDS: MIDODRINE 5 MG TAB PO SCH ×4 (08:16→16:04)
--- NOTE | 2021-03-05 09:28 | Progress Note ---
Assessment and Plan Assessment: * Oliguric acute kidney injury secondary to prerenal azotemia vs sepsis related ATN * Sepsis --Blood cx: NGTD * Acute hypoxic respiratory failure * Metabolic acidosis * Diabetic ketoacidosis * Hypocalcemia * Hyperosmolar hyponatremia * Elevated LFTs Plan * Renal function improved - SCr 1.4mg/dL yesterday,, 03/04. BMP pending at time of visit * Glycemic contro per primary team * Antibiotics as per primary * Cardiology and GI note reviewed * Renally dose medications * Avoid nephrotoxins Subjective Date of service: 03/05/21 Principal diagnosis: Ac hypoxemic resp failure; NSTEMI; ALPHONSO; Sepsis; PNA; CHF; DM II; AMS Interval history: No acute events overnight Objective - Vital Signs Vital signs: Vital Signs - 12hr 03/04/21 03/04/21 03/04/21 22:00 22:26 22:31 Temperature Pulse Rate 88 99 H 102 H Pulse Rate [ From Monitor] Respiratory 22 22 Rate Blood Pressure 84/40 97/57 97/57 O2 Sat by Pulse 99 100 99 Oximetry 03/04/21 03/05/21 03/05/21 23:00 00:00 01:00 Temperature 99.8 F H Pulse Rate 93 H 95 H 107 H Pulse Rate [ 95 H From Monitor] Respiratory 22 22 21 Rate Blood Pressure 87/44 85/43 105/65 O2 Sat by Pulse 94 99 98 Oximetry 03/05/21 03/05/21 03/05/21 02:00 03:00 03:20 Temperature 100.1 F H Pulse Rate 95 H 104 H Pulse Rate [ From Monitor] Respiratory 22 22 Rate Blood Pressure 94/51 115/69 O2 Sat by Pulse 97 98 Oximetry 03/05/21 03/05/21 03/05/21 04:00 05:00 06:01 Temperature Pulse Rate 93 H 113 H 121 H Pulse Rate [ 93 H From Monitor] Respiratory 22 17 13 Rate Blood Pressure 91/50 127/76 150/91 O2 Sat by Pulse 98 100 99 Oximetry 03/05/21 03/05/21 03/05/21 06:02 07:00 07:43 Temperature Pulse Rate 123 H 98 H Pulse Rate [ From Monitor] Respiratory 22 Rate Blood Pressure 150/91 105/60 O2 Sat by Pulse 100 98 97 Oximetry 03/05/21 08:00 Temperature 100.1 F H Pulse Rate 104 H Pulse Rate [ 104 H From Monitor] Respiratory 22 Rate Blood Pressure 108/69 O2 Sat by Pulse 97 Oximetry - General Appearance General appearance: well-developed, well-nourished, intubated EENT: ATNC, other (ETT in place) Respiratory: Present: Other (coarse BS) Cardiology: regular, S1S2 Integumentary: warm and dry Neurologic: other (awake, alert) - Lab 03/06/21 05:20 03/06/21 05:20 Most recent lab results ABG pH 7.450 (7.320-7.450) 03/05/21 04:00 ABG O2 Saturation 98.7 (0-100) 03/05/21 04:00 Calcium 7.5 mg/dL (8.4-10.2) L 03/04/21 10:17 Phosphorus 5.80 mg/dL (2.5-4.5) H 03/02/21 10:48 Magnesium 2.00 mg/dL (1.7-2.3) 03/02/21 10:48 Medications & Allergies - Medications Allergies/Adverse Reactions: Allergies Penicillins Allergy (Verified 03/30/19 10:45) Rash Home Medications: Home Medications Medication Instructions Recorded Confirmed Last Taken Type Fluticasone/Salmeterol [Advair 1 puff IH BID 04/27/13 01/16/14 04/27/13 History Diskus 250-50 mcg] Potassium Chloride [Klor-Con M10] 10 meq PO QDAY 04/27/13 01/16/14 04/27/13 History hydroCHLOROthiazide [Hctz] 12.5 mg PO QDAY 04/27/13 01/16/14 04/27/13 History Albuterol Sulfate [Proair 90 mcg IH Q4HR PRN #2 aer.[email or web address] 01/22/19 Unknown Rx Respiclick] Albuterol Sulfate [Albuterol 0.63% 0.63 mg IH Q4HR PRN #2 ml 01/23/19 Unknown Rx NEBS] Ipratropium [Atrovent NEB] 0.5 mg IH Q4HR #2 ml 01/23/19 Unknown Rx metFORMIN [Glucophage] 500 mg PO BID #30 tablet 03/30/19 Unknown Rx Active Medications: Generic Name Dose Route Start Last Admin Trade Name Freq PRN Reason Stop Dose Admin Acetaminophen 650 mg 03/02/21 00:18 Acetaminophen 650 Mg Rect Supp MD Q6H PRN Pain MILD(1-3)/Fever >100.5/VALDES Albuterol 2.5 mg 03/02/21 15:45 Albuterol 2.5 Mg/3 Ml Nebu IH Q4H PRN Shortness Of Breath Lipase/Protease/Amylase 1 each 03/03/21 10:53 Lipase 10,500/Protease 25,000/Amylase 43,750 (Units) Dr Cap FEEDTUBE PRN PRN For Clogged Feeding Tube Aspirin 81 mg 03/04/21 10:00 03/04/21 09:02 Aspirin 81 Mg Tab Chew PO 81 mg QDAY KYLE Administration Dextrose 50 ml 03/02/21 11:38 Dextrose 50% In Water (25gm) 50 Ml Syringe IV Q30MIN PRN Hypoglycemia Protocol Famotidine 20 mg 03/04/21 10:00 03/04/21 22:35 Famotidine 20 Mg Tab PO 20 mg BID KYLE Administration Fentanyl 50 mcg 03/02/21 04:16 03/03/21 12:00 Fentanyl 100 Mcg/2 Ml Inj IV 50 mcg Q10MIN PRN Administration ANALGESIA Heparin Sodium (Porcine) 5,200 unit 03/04/21 14:33 03/04/21 14:50 Heparin 10,000 Units/10 Ml Vial 40 unit/kg (5200 unit) 5,200 unit IV Administration Q6H PRN Anti-Xa Assay < 0.1 units/ml Hydrophilic Ointment 1 applic 03/02/21 15:42 Lip Therapy Vaseline TP Q2H PRN Dry Lips Fentanyl Citrate 2,000 mcg in 100 mls @ 6.55 mls/hr 03/01/21 21:30 03/05/21 05:15 Fentanyl Drip Premix IV 2 mcg/kg/hr TITR KYLE 13.1 mls/hr Administration Protocol 1 MCG/KG/HR Sodium Bicarbonate 150 meq/ 1,150 mls @ 200 mls/hr 03/02/21 10:00 03/03/21 12:44 Sterile Water IV 03/05/21 09:59 200 mls/hr DIRECT KYLE Administration Propofol 1,000 mg in 100 mls @ 3.93 mls/hr 03/02/21 16:00 03/03/21 15:45 Diprivan 10 Mg/Ml IV 0 mcg/kg/min TITR KYLE 0 mls/hr Titration Protocol 5 MCG/KG/MIN Heparin Sodium/Sodium Chloride 25,000 unit in 500 mls @ 30 mls/hr 03/04/21 15:00 03/05/21 06:34 Heparin/ 0.45% Nacl-25,000 Unit/500 Ml IV 1,500 units/hr TITR KYLE 30 mls/hr Titration Protocol 1,500 UNITS/HR Levofloxacin/Dextrose 750 mg in 150 mls @ 100 mls/hr 03/05/21 10:00 Levaquin 750mg/150ml IV 03/07/21 11:29 Q24HR KYLE Insulin Glargine 5 units 03/03/21 22:00 03/04/21 22:34 Insulin Glargine 100 Units/Ml SUB-Q 5 units QHS KYLE Administration Insulin Human Lispro 0 unit 03/04/21 12:00 03/05/21 05:17 Insulin Lispro 100 Unit/Ml SUB-Q Not Given Q6HR [facility] Protocol Magnesium Hydroxide 30 ml 03/02/21 00:18 Magnesium Hydroxide (Mom) Oral Liqd Udc PO Q4H PRN Constipation Midodrine 10 mg 03/02/21 12:00 03/05/21 08:16 Midodrine 5 Mg Tab PO 10 mg TID@0800,1200,1600 KYLE Administration Morphine Sulfate 2 mg 03/02/21 00:18 Morphine 2 Mg/1 Ml Inj IV Q4H PRN Pain, Moderate (4-6) Morphine Sulfate 4 mg 03/02/21 00:18 Morphine 4 Mg/1 Ml Inj IV Q4H PRN Pain , Severe (7-10) Multi-Ingred Cream/Lotion/Oil/Oint 1 applic 03/02/21 15:42 Mineral Oil/Petrolatum, White Ophth Oint 3.5 Gm OU Q4HR PRN Dry Eye(s) Multivitamins/Minerals 1 each 03/03/21 22:00 03/04/21 22:35 Calcium Carb/Vit D3/Minerals 600 Mg/800 Units Tab PO 1 each BID KYLE Administration Senna/Docusate Sodium 1 tab 03/02/21 22:00 03/04/21 22:35 Sennosides/Docusate Sodium 8.6/50 Mg Tab FEEDTUBE 1 tab BID KYLE Administration Simple Syrup 15 ml 03/03/21 10:53 Simple Syrup 15 Ml FEEDTUBE PRN PRN Hypoglycemia Simple Syrup 30 ml 03/03/21 10:53 Simple Syrup 15 Ml FEEDTUBE PRN PRN Hypoglycemia Sodium Bicarbonate 325 mg 03/03/21 10:53 Sodium Bicarbonate 325 Mg Tab FEEDTUBE PRN PRN For Clogged Feeding Tube Sodium Chloride 10 ml 03/02/21 10:00 03/04/21 22:35 Sodium Chloride 0.9% 10 Ml Flush Syringe IV 10 ml BID KYLE Administration Sodium Chloride 10 ml 03/02/21 00:18 Sodium Chloride 0.9% 10 Ml Flush Syringe IV PRN PRN LINE FLUSH
[2021-03-05] MEDS ORDERED: ONDANSETRON 4 MG/2 ML INJ IV PRN (09:41)
[2021-03-05] MEDS: CALCIUM CARB/VIT D3/MINERALS 600 MG/800 UNITS TAB PO SCH (09:45)
[2021-03-05] MEDS: ASPIRIN 81 MG TAB CHEW PO SCH (09:45)
[2021-03-05] MEDS: SENNOSIDES/DOCUSATE SODIUM 8.6/50 MG TAB FEEDTUBE SCH ×2 (09:46→21:35)
[2021-03-05] MEDS: FAMOTIDINE 20 MG TAB PO SCH ×2 (09:46→21:34)
--- NOTE | 2021-03-05 10:27 | Electrocardiograph Report ---
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1970 Requested By: CHAVO HERRERA Order Number: [id number] Reading MD: John Heard Measurements Intervals [place] Rate: 120 P: -14 VA: 103 QRS: -23 QRSD: 138 T: 63 QT: 390 QTc: 552 Interpretive Statements Sinus tachycardia Right bundle branch block Inferior infarct, old Abnrm T, consider ischemia, anterolateral lds Prolonged QT interval Compared to ECG 01/01/2021 15:16:27 Right bundle-branch block now present Myocardial infarct finding now present Possible ischemia now present Prolonged QT interval now present Left-axis deviation no longer present Electronically Signed On 03-05-2021 10:27:46 EDT by John Heard
--- NOTE | 2021-03-05 10:30 | Progress Note ---
Assessment and Plan May benefit from addition of gentle IV diuresis when hemodynamically stable. Continue heparin gtt for now. Plan for ischemic eval when clinically stable. Eventually plan to transition to Coumadin for tx of LLE DVT. Pt has a hx of PE and has a documented hx of failing Xa inhibitors. He was diagnosed with a LLE DVT in December 2019 and appears to have been on Coumadin as an outpatient. Pt seen in conjunction with Dr. Heard, who agrees with the assessment and plan of care. - Patient Problems (1) Encephalopathy Current Visit: Yes Status: Acute (2) Acute and chronic respiratory failure ([id number]) Current Visit: Yes Status: Acute Plan to address problem: 4L home O2 (3) Severe sepsis Current Visit: Yes Status: Acute (4) Pneumonia Current Visit: Yes Status: Acute Qualifiers: Laterality: bilateral (5) Chronic heart failure with preserved ejection fraction (HFpEF) Current Visit: Yes Status: Chronic (6) ALPHONSO (acute kidney injury) Current Visit: Yes Status: Acute Plan to address problem: Required HD x 3 months (last HD 01/2021) (7) Transaminitis Current Visit: Yes Status: Acute (8) Anemia Current Visit: Yes Status: Acute (9) NSTEMI (non-ST elevated myocardial infarction) Current Visit: Yes Status: Acute Plan to address problem: Type 2 (10) Left leg DVT Onset Date: ~12/2019 Current Visit: Yes Status: Chronic (11) History of pulmonary embolus (PE) Current Visit: Yes Status: Chronic (12) COPD (chronic obstructive pulmonary disease) Current Visit: Yes Status: Chronic 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 Tele reviewed - SR 90-100s, no events. Objective Last Vital Signs Temp 100.1 F H 03/05/21 08:00 Pulse 120 H 03/05/21 10:24 Resp 22 03/05/21 08:00 BP 108/69 03/05/21 08:00 Pulse Ox 97 03/05/21 10:24 - Physical Examination General: Other (intubated) HEENT: Positive: Normocephaly Neck: Positive: neck supple Cardiac: Positive: Reg Rate and Rhythm, S1/S2 Lungs: Positive: Ventilated Respirations Neuro: Positive: Other (intubated) Abdomen: Positive: Soft Skin: Negative: Rash Musculoskeletal: No Fluid Collection Extremities: Present: lower extr. pulses, warm, Other (anasarca) - Labs and Meds Cardiac Enzymes 03/04/21 Range/Units 10:17 AST 126 H (5-40) units/L Coagulation 03/04/21 Range/Units 10:17 PT 15.6 H (12.2-14.9) Sec. INR 1.18 H (0.87-1.13) CBC 03/04/21 03/04/21 Range/Units 10:17 16:26 WBC 10.0 (4.5-11.0) K/mm3 RBC 2.51 L (3.65-5.03) M/mm3 Hgb 8.3 L 7.7 L (11.8-15.2) gm/dl Hct 25.3 L 23.2 L (35.5-45.6) % Plt Count 223 (140-440) K/mm3 Comprehensive Metabolic Panel 03/04/21 Range/Units 10:17 Sodium 136 L (137-145) mmol/L Potassium 3.7 (3.6-5.0) mmol/L Chloride 93.1 L (98-107) mmol/L Carbon Dioxide 33 H (22-30) mmol/L BUN 46 H (9-20) mg/dL Creatinine 1.4 H (0.8-1.3) mg/dL Glucose 151 H (75-100) mg/dL Calcium 7.5 L (8.4-10.2) mg/dL AST 126 H (5-40) units/L ALT 100 H (7-56) units/L Alkaline Phosphatase 226 H (35-129) units/L Total Protein 5.0 L (6.3-8.2) g/dL Albumin 2.2 L (3.9-5) g/dL - Imaging and Cardiology EKG: report reviewed, image reviewed Echo: report reviewed (12/2020 - EF 55-60%) Cardiac cath: pending - Telemetry EKG Rhythm: Sinus Tachycardia - EKG Sinus rhythms and dysrhythmias: sinus rhythm AV and intraventricular conduction: right bundle branch block Repolarization changes or abnormalities: nonspecific abnormality, ST segment, and/or T wave - Allied health notes Allied health notes reviewed: nursing
--- NOTE | 2021-03-05 10:41 | Electrocardiograph Report ---
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 Electronically Signed On 03-05-2021 10:41:43 EDT by John Heard
[2021-03-05] MEDS ORDERED: PROMETHAZINE 12.5 MG RECT SUPP PR ONE (11:00)
--- NOTE | 2021-03-05 11:07 | Progress Note ---
<JAVIERCHAVO EllisGauri - Last Filed: 03/05/21 14:27> Assessment and Plan Assessment and plan: This is a a 51 year old male admitted for for severe sepsis, respiratory failure, pneumonia and ALPHONSO. PMH: COPD, CHF, DM, DVT/PE, HTN, KAM, obesity, asthma PSx: none reported home meds: albuterol sulfate, advair, HCTZ, atrovent, glucophage, Klor-Con, midodrine, metoprolol, lasix, lantus, coumadin (from audit and home meds reconciliation) Social: unknown A/P Neuro: Metabolic encephalopathy -sedated with fentanyl -RASS goal 0 to -1 -Avoid delirium -Reorientation as needed -Aspiration/fall precautions -B wrist restraints for safety Cardio: SR-ST: Acute on Chronic HFpEF (per cards), NSTEMI, HTN, HLD -Cardiology consulted, appreciate recommendations -ASA, midodrine -BP monitoring per protocol -Echo pending; per cardio he had one recently at OSH-records requested -Hold antihtn meds for now -03/05 Qtc 599 -Per cardiology, gentle IV diuresis Resp: Acute on chronic hypoxic respiratory failure, Bilateral PNA, hx COPD, KAM, asthma, ?PE -CCM consulted, appreciate recommendations -MV, wean as tolerated -Intubated 03/01 with 8.0 OETT at 22@lip -Vent settings: AC TV 500, PEEP 10, Rate 22, on 75% FiO2 -Serial CXR and ABG -VAP bundle -Continuos SPO2 monitoring -abx with levaquin (03/02-03/07)-DC 03/05 r/t prolonged QTc -03/01 CT chest shows several pulmonary nodules within Right lung measuring 6-8 mm, increased interstitial prominence -03/05 CXR reviewed -COVID 19 PCR negative GI: Transaminitis, TF -GI consulted, appreciate recommendations -Trend LFTs -RUQ US shows no evidence of cholelithiasis, cholecytitis or choledocholithisis -CT abd/pelvis shows fatty infiltration of liver -Trend LFTs -Ntr consult for TF -PPI -BR [place] : ALPHONSO, hypoNa, hypoCl -Nephrology consulted, appreciate recommendations -Pt was on HD at recent hospitalization at OSH -Penally dose mediations -Avoid nephrotoxic medications -Strict I&Os -Renal US shows no significant abnormality -Daily weights -Trend BMP Heme: DVT-R posterior tibial vein, h/x LLE DVT (December 2019)/ PE (failed Xa inhibitors; on home coumadin) -evidenced on BLE Doppler US -Heparin gtt -SCDs while in bed -Per cards: Eventually plan to transition to Coumadin ID: Severe Sepsis, B PNA -s/p abx therapy (azithromycin 03/01-03/02, aztreonam 03/02, cefepime 03/01-03/02, levaquin 03/02-03/05, flagyl 03/01-03/02, vancomycin 03/01-03/02) -VAP bundle -procal 0.89 on 03/04 -MRSA (+) nares -03/01 BCx2 with NGTD -03/01 UC with NGTD -03/02 sputum culture -03/05 tmax 102.2-reculture with next temp spike but may be d/t DVT COVID 19 PUI -COVID 19 PCR pending -already on contact isolcation. Will add droplet Endo: DM -SSI, lantus -Accuchecks q6 -Avoid hypoglycemia Lines: condom cath, PIV Dispotions: ICU Full code The high probability of a clinically significant, sudden or life threatening deterioration of the [multi] system(s) required my full and direct attention, intervention and personal management. The aggregate critical care time was [60] minutes. This time is in addition to time spent performing reported procedures but includes the following: [x] Data Review and interpretation [x] Patient assessment and monitoring of vital signs [x] Documentation [x] Medication orders and management Disposition Plan: icu Total Time Spent with Patient (Minutes): 60 History Interval history: This is a 51-year-old -Uz[place] male with COPD with chronic respiratory failure, CHFpEF, diabetes mellitus, DVT/PE on coumadin and hypertension who presented to [facility] via EMS for AMS and hypoxia. On arrival of EMS oxygen saturation was about 88% on room air, blood pressure was said to be about 88/50 mmHg. Work-up in the emergency room reveals leukocytosis of 12.7, hemoglobin of 9.1 and hematocrit of 27.7, sodium of 132, lactic acid of 2.90, elevated liver enzymes and elevated troponin at 0.493. A CT of the chest showed findings concerning for atelectasis and or infiltrate, CT of the head was unremarkable. Patient was in severe respiratory distress upon arrival in the emergency room an d subsequently intubated. Patient was admitted to the hospitalist service with consults to cardiology, CCM, GI, and neprohology for severe sepsis, respiratory failure, pneumonia and ALPHONSO. Of note patient was admitted to [facility] from 12/12-01/14 and was on HD during that admit. 03/03/21: Patient remains intubated, continue on heparin drip, monitor H&H and BMP. Continue empiric antibiotics, ID following. Follow ammonia level and LFT. According to cardiology patient indeed had preserved EF during his recent admission to [place]. Plan to repeat 2D echo. Critical care following, wean off from vent as tolerated. 03/04: RN reported blood y secretions in OETT and clots, heparin gtt stopped and B LE US obtained which shows DVT, abx deescalated, heparin gtt restarted. 03/05: RN reported vomiting x1, promithazine x1 given, Qtc at 599 on EKG. AM labs pending. tmax 102.2, reculture with next spike, COVID 19 PCR. abx stopped re prolonged qtc and received CAP coverage. Hospitalist Physical - Constitutional Vitals: Temp Pulse Resp BP Pulse Ox 100.1 F H 120 H 17 123/66 97 03/05/21 08:00 03/05/21 10:24 03/05/21 10:00 03/05/21 10:00 03/05/21 10:24 General appearance: Present: well-nourished, obese, other (sedated) - EENT Eyes: Present: PERRL - Respiratory Respiratory effort: normal Respiratory: bilateral: diminished - Cardiovascular Rhythm: regular Peripheral Pulses: within normal limits - Abdominal General gastrointestinal: soft, non-tender - Integumentary Integumentary: Present: warm, dry - Psychiatric Psychiatric: agitated - Neurologic Neurologic: moves all extremities - Allied Health Allied health notes reviewed: nursing, RT HEART Score - HEART Score Troponin: Troponin T 0.484 ng/mL (0.00-0.029) H* 03/01/21 20:55 Results - Labs CBC & Chem 7: 03/04/21 16:26 03/04/21 10:17 Labs: Laboratory Last Values WBC 10.0 K/mm3 (4.5-11.0) 03/04/21 10:17 RBC 2.51 M/mm3 (3.65-5.03) L 03/04/21 10:17 Hgb 7.7 gm/dl (11.8-15.2) L 03/04/21 16:26 Hct 23.2 % (35.5-45.6) L 03/04/21 16:26 MCV 101 fl (84-94) H 03/04/21 10:17 MCH 33 pg (28-32) H 03/04/21 10:17 MCHC 33 % (32-34) 03/04/21 10:17 RDW 18.5 % (13.2-15.2) H 03/04/21 10:17 Plt Count 223 K/mm3 (140-440) 03/04/21 10:17 Lymph % (Auto) 14.4 % (13.4-35.0) 03/03/21 03:50 Waller % (Auto) 5.9 % (0.0-7.3) 03/03/21 03:50 Eos % (Auto) 0.0 % (0.0-4.3) 03/03/21 03:50 Baso % (Auto) 0.7 % (0.0-1.8) 03/03/21 03:50 Lymph # (Auto) 2.0 K/mm3 (1.2-5.4) 03/03/21 03:50 [place] # (Auto) 0.8 K/mm3 (0.0-0.8) 03/03/21 03:50 Eos # (Auto) 0.0 K/mm3 (0.0-0.4) 03/03/21 03:50 Baso # (Auto) 0.1 K/mm3 (0.0-0.1) 03/03/21 03:50 Add Manual Diff Complete 03/01/21 19:21 Total Counted 100 03/01/21 19:21 Seg Neutrophils % 79.0 % (40.0-70.0) H 03/03/21 03:50 Seg Neuts % (Manual) 49.0 % (40.0-70.0) 03/01/21 19:21 Lymphocytes % (Manual) 32.0 % (13.4-35.0) 03/01/21 19:21 Monocytes % (Manual) 17.0 % (0.0-7.3) H 03/01/21 19:21 Eosinophils % (Manual) 1.0 % (0.0-4.3) 03/01/21 19:21 Basophils % (Manual) 1.0 % (0.0-1.8) 03/01/21 19:21 Nucleated RBC % Not Reportable 03/01/21 19:21 Seg Neutrophils # 10.8 K/mm3 (1.8-7.7) H 03/03/21 03:50 Seg Neutrophils # Man 6.2 K/mm3 (1.8-7.7) 03/01/21 19:21 Band Neutrophils # 0.0 K/mm3 03/01/21 19:21 Lymphocytes # (Manual) 4.1 K/mm3 (1.2-5.4) 03/01/21 19:21 Abs React Lymphs (Man) 0.0 K/mm3 03/01/21 19:21 Monocytes # (Manual) 2.2 K/mm3 (0.0-0.8) H 03/01/21 19:21 Eosinophils # (Manual) 0.1 K/mm3 (0.0-0.4) 03/01/21 19:21 Basophils # (Manual) 0.1 K/mm3 (0.0-0.1) 03/01/21 19:21 Metamyelocytes # 0.0 K/mm3 03/01/21 19:21 Myelocytes # 0.0 K/mm3 03/01/21 19:21 Promyelocytes # 0.0 K/mm3 03/01/21 19:21 Blast Cells # 0.0 K/mm3 03/01/21 19:21 WBC Morphology Not Reportable 03/01/21 19:21 Hypersegmented Neuts Not Reportable 03/01/21 19:21 Hyposegmented Neuts Not Reportable 03/01/21 19:21 Hypogranular Neuts Not Reportable 03/01/21 19:21 Smudge Cells Not Reportable 03/01/21 19:21 Toxic Granulation Not Reportable 03/01/21 19:21 Toxic Vacuolation Not Reportable 03/01/21 19:21 Dohle Bodies Not Reportable 03/01/21 19:21 Pelger-Huet Anomaly Not Reportable 03/01/21 19:21 Katherine Rods Not Reportable 03/01/21 19:21 Platelet Estimate Not Reportable 03/01/21 19:21 Clumped Platelets Not Reportable 03/01/21 19:21 Plt Clumps, EDTA Not Reportable 03/01/21 19:21 Large Platelets Not Reportable 03/01/21 19:21 Giant Platelets Not Reportable 03/01/21 19:21 Platelet Satelliting Not Reportable 03/01/21 19:21 Plt Morphology Comment Not Reportable 03/01/21 19:21 RBC Morphology Not Reportable 03/01/21 19:21 Dimorphic RBCs Not Reportable 03/01/21 19:21 Polychromasia Not Reportable 03/01/21 19:21 Hypochromasia Not Reportable 03/01/21 19:21 Poikilocytosis Not Reportable 03/01/21 19:21 Anisocytosis Rare 03/01/21 19:21 Microcytosis Not Reportable 03/01/21 19:21 Macrocytosis Not Reportable 03/01/21 19:21 Spherocytes Not Reportable 03/01/21 19:21 Pappenheimer Bodies Not Reportable 03/01/21 19:21 Sickle Cells Not Reportable 03/01/21 19:21 Target Cells Not Reportable 03/01/21 19:21 Tear Drop Cells Not Reportable 03/01/21 19:21 Ovalocytes Not Reportable 03/01/21 19:21 Helmet Cells Not Reportable 03/01/21 19:21 [place] Bodies Not Reportable 03/01/21 19:21 [place] Rings Not Reportable 03/01/21 19:21 [place] Cells Not Reportable 03/01/21 19:21 Bite Cells Not Reportable 03/01/21 19:21 Crenated Cell Not Reportable 03/01/21 19:21 Elliptocytes Not Reportable 03/01/21 19:21 Acanthocytes (Spur) Not Reportable 03/01/21 19:21 Rouleaux Not Reportable 03/01/21 19:21 Hemoglobin C Crystals Not Reportable 03/01/21 19:21 Schistocytes Few 03/01/21 19:21 Malaria parasites Not Reportable 03/01/21 19:21 Henry Bodies Not Reportable 03/01/21 19:21 Hem Pathologist Commnt No 03/01/21 19:21 PT 15.6 Sec. (12.2-14.9) H 03/04/21 10:17 INR 1.18 (0.87-1.13) H 03/04/21 10:17 APTT 36.6 Sec. (24.2-36.6) 03/02/21 16:28 Heparin Anti-Xa Level 0.36 U.I./ml (0.3-0.7) 03/04/21 20:23 ABG pH 7.450 (7.320-7.450) 03/05/21 04:00 POC ABG pCO2 47.7 mmHg (32.0-48.0) 03/05/21 04:00 POC ABG pO2 129.1 mmHg (83-108) H 03/05/21 04:00 POC ABG HCO3 32.4 03/05/21 04:00 ABG O2 Saturation 98.7 (0-100) 03/05/21 04:00 POC ABG Base Excess 7.6 03/05/21 04:00 ABG Hemoglobin 8.3 (12.0-17.5) L 03/05/21 04:00 ABG Oxyhemoglobin 97.9 (94-98) 03/05/21 04:00 ABG Methemoglobin 0.3 (0.0-1.5) 03/05/21 04:00 ABG Sodium 131.4 mmol/L (136.0-145.0) L 03/05/21 04:00 ABG Potassium 3.8 mmol/L (3.40-4.50) 03/05/21 04:00 ABG Chloride 95.0 mmol/L (98-107) L 03/05/21 04:00 ABG Glucose 153 mg/dL (65-95) H 03/05/21 04:00 Carboxyhemoglobin 0.5 (0.5-1.5) 03/05/21 04:00 FiO2 % 85.0 03/05/21 04:00 Sodium 136 mmol/L (137-145) L 03/04/21 10:17 Potassium 3.7 mmol/L (3.6-5.0) 03/04/21 10:17 Chloride 93.1 mmol/L (98-107) L 03/04/21 10:17 Carbon Dioxide 33 mmol/L (22-30) H 03/04/21 10:17 Anion Gap 14 mmol/L 03/04/21 10:17 BUN 46 mg/dL (9-20) H 03/04/21 10:17 Creatinine 1.4 mg/dL (0.8-1.3) H 03/04/21 10:17 Estimated GFR > 60 ml/min 03/04/21 10:17 BUN/Creatinine Ratio 33 % 03/04/21 10:17 Glucose 151 mg/dL (75-100) H 03/04/21 10:17 POC Glucose 139 mg/dL (70-105) H 03/05/21 05:06 Lactic Acid 1.70 mmol/L (0.7-2.0) 03/04/21 10:17 Calcium 7.5 mg/dL (8.4-10.2) L 03/04/21 10:17 Phosphorus 5.80 mg/dL (2.5-4.5) H 03/02/21 10:48 Magnesium 2.00 mg/dL (1.7-2.3) 03/02/21 10:48 Total Bilirubin 0.90 mg/dL (0.1-1.2) 03/04/21 10:17 Direct Bilirubin 0.6 mg/dL (0-0.2) H 03/04/21 05:26 Indirect Bilirubin 0.2 mg/dL 03/04/21 05:26 AST 126 units/L (5-40) H 03/04/21 10:17 ALT 100 units/L (7-56) H 03/04/21 10:17 Alkaline Phosphatase 226 units/L (35-129) H 03/04/21 10:17 Ammonia 71.0 umol/L (25-60) H 03/01/21 19:21 Troponin T 0.484 ng/mL (0.00-0.029) H* 03/01/21 20:55 Total Protein 5.0 g/dL (6.3-8.2) L 03/04/21 10:17 Albumin 2.2 g/dL (3.9-5) L 03/04/21 10:17 Albumin/Globulin Ratio 0.8 % 03/04/21 10:17 Triglycerides 400 mg/dL (2-149) H 03/01/21 19:21 Cholesterol 232 mg/dL (50-199) H 03/01/21 19:21 LDL Cholesterol Direct 130 mg/dL (50-130) 03/01/21 19:21 HDL Cholesterol 22 mg/dL (40-59) L 03/01/21 19:21 Cholesterol/HDL Ratio 10.54 % 03/01/21 19:21 Lipase 78 units/L (13-60) H 03/04/21 10:17 Procalcitonin 0.89 ng/mL (<0.15) 03/04/21 13:04 TSH 1.840 mlU/mL (0.270-4.200) 03/03/21 04:06 Arterial Blood Glucose 153 mg/dL (65-95) H 03/05/21 04:00 Arterial Blood Ionized Calcium 3.8 mg/dL (4.6-5.3) L 03/04/21 03:47 Urine Color [place] (Yellow) 03/01/21 21:40 Urine Turbidity Slightly-cloudy (Clear) 03/01/21 21:40 Urine pH 5.0 (5.0-7.0) 03/01/21 21:40 Ur Specific [place] 1.018 (1.003-1.030) 03/01/21 21:40 Urine Protein 30 mg/dl mg/dL (Negative) 03/01/21 21:40 Urine Glucose (UA) Neg mg/dL (Negative) 03/01/21 21:40 Urine Ketones Neg mg/dL (Negative) 03/01/21 21:40 Urine Blood Sm (Negative) 03/01/21 21:40 Urine Nitrite Neg (Negative) 03/01/21 21:40 Urine Bilirubin Neg (Negative) 03/01/21 21:40 Urine Urobilinogen 4.0 mg/dL (<2.0) 03/01/21 21:40 Ur Leukocyte Esterase Neg (Negative) 03/01/21 21:40 Urine WBC (Auto) 5.0 /HPF (0.0-6.0) 03/01/21 21:40 Urine RBC (Auto) 4.0 /HPF (0.0-6.0) 03/01/21 21:40 U Epithel Cells (Auto) 1.0 /HPF (0-13.0) 03/01/21 21:40 Urine Bacteria (Auto) 1+ /HPF (Negative) 03/01/21 21:40 Hyaline Casts 14 /LPF 03/01/21 21:40 Urine Mucus Few /HPF 03/01/21 21:40 Urine Yeast (Budding) Few /HPF 03/01/21 21:40 Nasal Screen MRSA (PCR) Positive (Negative) 03/02/21 05:00 Salicylates < 0.3 mg/dL (2.8-20.0) L 03/01/21 19:21 Urine Opiates Screen Positive 03/01/21 21:40 Urine Methadone Screen Negative 03/01/21 21:40 Acetaminophen 5.0 ug/mL (10.0-30.0) L 03/01/21 19:21 Ur Barbiturates Screen Negative 03/01/21 21:40 Ur Phencyclidine Scrn Negative 03/01/21 21:40 Ur Amphetamines Screen Negative 03/01/21 21:40 U Benzodiazepines Scrn Negative 03/01/21 21:40 Urine Cocaine Screen Negative 03/01/21 21:40 U Marijuana (THC) Screen Negative 03/01/21 21:40 Drugs of Abuse Note Disclamer 03/01/21 21:40 Blood Type O POSITIVE 03/01/21 19:21 Antibody Screen Negative 03/01/21 19:21 Microbiology: Microbiology 03/01/21 19:35 Peripheral/Venous Blood Culture - Preliminary NO GROWTH AFTER 72 HOURS 03/01/21 19:21 Peripheral/Venous Blood Culture - Preliminary NO GROWTH AFTER 72 HOURS 03/01/21 21:40 Urine,Clean Catch Urine Culture - Final NO GROWTH AFTER 48 HOURS Vilchis/IV: Voiding Method Indwelling Catheter Active Medications - Current Medications Current Medications: Generic Name Dose Route Start Last Admin Trade Name Freq PRN Reason Stop Dose Admin Acetaminophen 650 mg 03/02/21 00:18 Acetaminophen 650 Mg Rect Supp VT Q6H PRN Pain MILD(1-3)/Fever >100.5/VALDES Albuterol 2.5 mg 03/02/21 15:45 Albuterol 2.5 Mg/3 Ml Nebu IH Q4H PRN Shortness Of Breath Lipase/Protease/Amylase 1 each 03/03/21 10:53 Lipase 10,500/Protease 25,000/Amylase 43,750 (Units) Dr Matt GRAYTUBE PRN PRN For Clogged Feeding Tube Aspirin 81 mg 03/04/21 10:00 03/05/21 09:45 Aspirin 81 Mg Tab Chew PO Not Given QDAY KYLE Dextrose 50 ml 03/02/21 11:38 Dextrose 50% In Water (25gm) 50 Ml Syringe IV Q30MIN PRN Hypoglycemia Protocol Famotidine 20 mg 03/04/21 10:00 03/05/21 09:46 Famotidine 20 Mg Tab PO Not Given BID KYLE Fentanyl 50 mcg 03/02/21 04:16 03/03/21 12:00 Fentanyl 100 Mcg/2 Ml Inj IV 50 mcg Q10MIN PRN Administration ANALGESIA Heparin Sodium (Porcine) 5,200 unit 03/04/21 14:33 03/04/21 14:50 Heparin 10,000 Units/10 Ml Vial 40 unit/kg (5200 unit) 5,200 unit IV Administration Q6H PRN Anti-Xa Assay < 0.1 units/ml Hydrophilic Ointment 1 applic 03/02/21 15:42 Lip Therapy Vaseline TP Q2H PRN Dry Lips Fentanyl Citrate 2,000 mcg in 100 mls @ 6.55 mls/hr 03/01/21 21:30 03/05/21 05:15 Fentanyl Drip Premix IV 2 mcg/kg/hr TITR KYLE 13.1 mls/hr Administration Protocol 1 MCG/KG/HR Propofol 1,000 mg in 100 mls @ 3.93 mls/hr 03/02/21 16:00 03/03/21 15:45 Diprivan 10 Mg/Ml IV 0 mcg/kg/min TITR KYLE 0 mls/hr Titration Protocol 5 MCG/KG/MIN Heparin Sodium/Sodium Chloride 25,000 unit in 500 mls @ 30 mls/hr 03/04/21 15:00 03/05/21 06:34 Heparin/ 0.45% Nacl-25,000 Unit/500 Ml IV 1,500 units/hr TITR KYLE 30 mls/hr Titration Protocol 1,500 UNITS/HR Insulin Glargine 5 units 03/03/21 22:00 03/04/21 22:34 Insulin Glargine 100 Units/Ml SUB-Q 5 units QHS KYLE Administration Insulin Human Lispro 0 unit 03/04/21 12:00 03/05/21 05:17 Insulin Lispro 100 Unit/Ml SUB-Q Not Given Q6HR [facility] Protocol Magnesium Hydroxide 30 ml 03/02/21 00:18 Magnesium Hydroxide (Mom) Oral Liqd Udc PO Q4H PRN Constipation Midodrine 10 mg 03/02/21 12:00 03/05/21 08:16 Midodrine 5 Mg Tab PO 10 mg TID@0800,1200,1600 KYLE Administration Morphine Sulfate 2 mg 03/02/21 00:18 Morphine 2 Mg/1 Ml Inj IV Q4H PRN Pain, Moderate (4-6) Morphine Sulfate 4 mg 03/02/21 00:18 Morphine 4 Mg/1 Ml Inj IV Q4H PRN Pain , Severe (7-10) Multi-Ingred Cream/Lotion/Oil/Oint 1 applic 03/02/21 15:42 Mineral Oil/Petrolatum, White Ophth Oint 3.5 Gm OU Q4HR PRN Dry Eye(s) Multivitamins/Minerals 1 each 03/03/21 22:00 03/05/21 09:45 Calcium Carb/Vit D3/Minerals 600 Mg/800 Units Tab PO Not Given BID KYLE Senna/Docusate Sodium 1 tab 03/02/21 22:00 03/05/21 09:46 Sennosides/Docusate Sodium 8.6/50 Mg Tab FEEDTUBE Not Given BID KYLE Simple Syrup 15 ml 03/03/21 10:53 Simple Syrup 15 Ml FEEDTUBE PRN PRN Hypoglycemia Simple Syrup 30 ml 03/03/21 10:53 Simple Syrup 15 Ml FEEDTUBE PRN PRN Hypoglycemia Sodium Bicarbonate 325 mg 03/03/21 10:53 Sodium Bicarbonate 325 Mg Tab FEEDTUBE PRN PRN For Clogged Feeding Tube Sodium Chloride 10 ml 03/02/21 10:00 03/05/21 09:46 Sodium Chloride 0.9% 10 Ml Flush Syringe IV 10 ml BID KYLE Administration Sodium Chloride 10 ml 03/02/21 00:18 Sodium Chloride 0.9% 10 Ml Flush Syringe IV PRN PRN LINE FLUSH Nutrition/Malnutrition Assess - Dietary Evaluation Nutrition/Malnutrition Findings: Nutrition Notes Start: 03/02/21 10:10 Freq: Status: Active Protocol: Document 03/03/21 10:49 RIAN (Rec: 03/03/21 10:52 RIAN [id number]) Nutrition Notes Need for Assessment generated from: MD Order Initial or Follow up Reassessment Current Diagnosis Acute Kidney Injury,COPD, Diabetes,Sepsis,Hypertension, Heart Failure,Respiratory Failure Other Pertinent Diagnosis pneu, AMS Current Diet NPO Labs/Tests BUN 45 Cr 1.9 BG 503, 454, 261 Pertinent Medications Propofol Insulin ggt Height 5 ft 10 in Weight 131 kg [place] Body Weight (kg) 75.45 BMI 41.4 Weight Status Morbidly Obese Subjective/Other Information MD order for TF. Pt with BG > 300. Burn Absent Trauma Absent Current % PO Negligible Minimum of two criteria No physical signs of malnutrition #1 Nutrition Diagnosis Inadequate oral intake Diagnosis Progress(for reassessment Continues documentation) Is patient on ventilator? Yes Is Patient Ambulatory and/or Out of Bed No REE-([facility]-confined to bed) 2614.728 Kcal/Kg value to use for calculation 14 Approximate Energy Requirements Using 1834 kcal/Kg Calculation Used for Recommendations Kcal/kg Additional Notes Protein: up to 2.5g/kg IBW (< or = to 189g) Fluid: 1 ml/kcal or per MD Nutrition Intervention Change Diet Order: Start TF Nutrition Support: Glucerna 1.2 at 65 ml/hr Flush 100 ml q4h or per MD Kcal 1,872 Protein (gm) 94 Carbohydrates (gm) 179 Fat (gm) 94 Fluid (mL) 1,256 Goal #1 Meet at least 75% of kcal needs and protein needs as best as possible via TF Anticipated Discharge Needs: Unable to determine at this time Follow-Up By: 03/05/21 Additional Comments FU for TF start and tolerance <CADE HAYS R - Last Filed: 03/05/21 17:01> Assessment and Plan Assessment and plan: I saw and evaluated the patient. I agree with the findings and the plan of care as documented in the Nurse Practitioner's~note, Hospitalist Physical - Constitutional Vitals: Temp Pulse Resp BP Pulse Ox 99.6 F 80 17 105/60 100 03/05/21 16:00 03/05/21 16:00 03/05/21 16:00 03/05/21 16:00 03/05/21 16:00 HEART Score - HEART Score Troponin: Troponin T 0.484 ng/mL (0.00-0.029) H* 03/01/21 20:55 Results - Labs CBC & Chem 7: 03/05/21 13:35 03/05/21 13:35 Labs: Laboratory Last Values WBC 10.9 K/mm3 (4.5-11.0) 03/05/21 13:35 RBC 2.38 M/mm3 (3.65-5.03) L 03/05/21 13:35 Hgb 7.8 gm/dl (11.8-15.2) L 03/05/21 13:35 Hct 23.8 % (35.5-45.6) L 03/05/21 13:35 MCV 100 fl (84-94) H 03/05/21 13:35 MCH 33 pg (28-32) H 03/05/21 13:35 MCHC 33 % (32-34) 03/05/21 13:35 RDW 18.2 % (13.2-15.2) H 03/05/21 13:35 Plt Count 234 K/mm3 (140-440) 03/05/21 13:35 Lymph % (Auto) 14.4 % (13.4-35.0) 03/03/21 03:50 [place] % (Auto) 5.9 % (0.0-7.3) 03/03/21 03:50 Eos % (Auto) 0.0 % (0.0-4.3) 03/03/21 03:50 Baso % (Auto) 0.7 % (0.0-1.8) 03/03/21 03:50 Lymph # (Auto) 2.0 K/mm3 (1.2-5.4) 03/03/21 03:50 [place] # (Auto) 0.8 K/mm3 (0.0-0.8) 03/03/21 03:50 Eos # (Auto) 0.0 K/mm3 (0.0-0.4) 03/03/21 03:50 Baso # (Auto) 0.1 K/mm3 (0.0-0.1) 03/03/21 03:50 Add Manual Diff Complete 03/01/21 19:21 Total Counted 100 03/01/21 19:21 Seg Neutrophils % 79.0 % (40.0-70.0) H 03/03/21 03:50 Seg Neuts % (Manual) 49.0 % (40.0-70.0) 03/01/21 19:21 Lymphocytes % (Manual) 32.0 % (13.4-35.0) 03/01/21 19:21 Monocytes % (Manual) 17.0 % (0.0-7.3) H 03/01/21 19:21 Eosinophils % (Manual) 1.0 % (0.0-4.3) 03/01/21 19:21 Basophils % (Manual) 1.0 % (0.0-1.8) 03/01/21 19:21 Nucleated RBC % Not Reportable 03/01/21 19:21 Seg Neutrophils # 10.8 K/mm3 (1.8-7.7) H 03/03/21 03:50 Seg Neutrophils # Man 6.2 K/mm3 (1.8-7.7) 03/01/21 19:21 Band Neutrophils # 0.0 K/mm3 03/01/21 19:21 Lymphocytes # (Manual) 4.1 K/mm3 (1.2-5.4) 03/01/21 19:21 Abs React Lymphs (Man) 0.0 K/mm3 03/01/21 19:21 Monocytes # (Manual) 2.2 K/mm3 (0.0-0.8) H 03/01/21 19:21 Eosinophils # (Manual) 0.1 K/mm3 (0.0-0.4) 03/01/21 19:21 Basophils # (Manual) 0.1 K/mm3 (0.0-0.1) 03/01/21 19:21 Metamyelocytes # 0.0 K/mm3 03/01/21 19:21 Myelocytes # 0.0 K/mm3 03/01/21 19:21 Promyelocytes # 0.0 K/mm3 03/01/21 19:21 Blast Cells # 0.0 K/mm3 03/01/21 19:21 WBC Morphology Not Reportable 03/01/21 19:21 Hypersegmented Neuts Not Reportable 03/01/21 19:21 Hyposegmented Neuts Not Reportable 03/01/21 19:21 Hypogranular Neuts Not Reportable 03/01/21 19:21 Smudge Cells Not Reportable 03/01/21 19:21 Toxic Granulation Not Reportable 03/01/21 19:21 Toxic Vacuolation Not Reportable 03/01/21 19:21 Dohle Bodies Not Reportable 03/01/21 19:21 Pelger-Huet Anomaly Not Reportable 03/01/21 19:21 Katherine Rods Not Reportable 03/01/21 19:21 Platelet Estimate Not Reportable 03/01/21 19:21 Clumped Platelets Not Reportable 03/01/21 19:21 Plt Clumps, EDTA Not Reportable 03/01/21 19:21 Large Platelets Not Reportable 03/01/21 19:21 Giant Platelets Not Reportable 03/01/21 19:21 Platelet Satelliting Not Reportable 03/01/21 19:21 Plt Morphology Comment Not Reportable 03/01/21 19:21 RBC Morphology Not Reportable 03/01/21 19:21 Dimorphic RBCs Not Reportable 03/01/21 19:21 Polychromasia Not Reportable 03/01/21 19:21 Hypochromasia Not Reportable 03/01/21 19:21 Poikilocytosis Not Reportable 03/01/21 19:21 Anisocytosis Rare 03/01/21 19:21 Microcytosis Not Reportable 03/01/21 19:21 Macrocytosis Not Reportable 03/01/21 19:21 Spherocytes Not Reportable 03/01/21 19:21 Pappenheimer Bodies Not Reportable 03/01/21 19:21 Sickle Cells Not Reportable 03/01/21 19:21 Target Cells Not Reportable 03/01/21 19:21 Tear Drop Cells Not Reportable 03/01/21 19:21 Ovalocytes Not Reportable 03/01/21 19:21 Helmet Cells Not Reportable 03/01/21 19:21 [place] Bodies Not Reportable 03/01/21 19:21 [place] Rings Not Reportable 03/01/21 19:21 Dusty Cells Not Reportable 03/01/21 19:21 Bite Cells Not Reportable 03/01/21 19:21 Crenated Cell Not Reportable 03/01/21 19:21 Elliptocytes Not Reportable 03/01/21 19:21 Acanthocytes (Spur) Not Reportable 03/01/21 19:21 Rouleaux Not Reportable 03/01/21 19:21 Hemoglobin C Crystals Not Reportable 03/01/21 19:21 Schistocytes Few 03/01/21 19:21 Malaria parasites Not Reportable 03/01/21 19:21 Henry Bodies Not Reportable 03/01/21 19:21 Hem Pathologist Commnt No 03/01/21 19:21 PT 15.6 Sec. (12.2-14.9) H 03/04/21 10:17 INR 1.18 (0.87-1.13) H 03/04/21 10:17 APTT 36.6 Sec. (24.2-36.6) 03/02/21 16:28 Heparin Anti-Xa Level 0.36 U.I./ml (0.3-0.7) 03/04/21 20:23 ABG pH 7.450 (7.320-7.450) 03/05/21 04:00 POC ABG pCO2 47.7 mmHg (32.0-48.0) 03/05/21 04:00 POC ABG pO2 129.1 mmHg (83-108) H 03/05/21 04:00 POC ABG HCO3 32.4 03/05/21 04:00 ABG O2 Saturation 98.7 (0-100) 03/05/21 04:00 POC ABG Base Excess 7.6 03/05/21 04:00 ABG Hemoglobin 8.3 (12.0-17.5) L 03/05/21 04:00 ABG Oxyhemoglobin 97.9 (94-98) 03/05/21 04:00 ABG Methemoglobin 0.3 (0.0-1.5) 03/05/21 04:00 ABG Sodium 131.4 mmol/L (136.0-145.0) L 03/05/21 04:00 ABG Potassium 3.8 mmol/L (3.40-4.50) 03/05/21 04:00 ABG Chloride 95.0 mmol/L (98-107) L 03/05/21 04:00 ABG Glucose 153 mg/dL (65-95) H 03/05/21 04:00 Carboxyhemoglobin 0.5 (0.5-1.5) 03/05/21 04:00 FiO2 % 85.0 03/05/21 04:00 Sodium 138 mmol/L (137-145) 03/05/21 13:35 Potassium 3.7 mmol/L (3.6-5.0) 03/05/21 13:35 Chloride 94.4 mmol/L (98-107) L 03/05/21 13:35 Carbon Dioxide 28 mmol/L (22-30) 03/05/21 13:35 Anion Gap 19 mmol/L 03/05/21 13:35 BUN 49 mg/dL (9-20) H 03/05/21 13:35 Creatinine 1.6 mg/dL (0.8-1.3) H 03/05/21 13:35 Estimated GFR 56 ml/min 03/05/21 13:35 BUN/Creatinine Ratio 31 % 03/05/21 13:35 Glucose 165 mg/dL (75-100) H 03/05/21 13:35 POC Glucose 174 mg/dL (70-105) H 03/05/21 11:43 Lactic Acid 1.70 mmol/L (0.7-2.0) 03/04/21 10:17 Calcium 7.5 mg/dL (8.4-10.2) L 03/05/21 13:35 Phosphorus 5.80 mg/dL (2.5-4.5) H 03/02/21 10:48 Magnesium 2.00 mg/dL (1.7-2.3) 03/02/21 10:48 Total Bilirubin 0.90 mg/dL (0.1-1.2) 03/04/21 10:17 Direct Bilirubin 0.6 mg/dL (0-0.2) H 03/04/21 05:26 Indirect Bilirubin 0.2 mg/dL 03/04/21 05:26 AST 126 units/L (5-40) H 03/04/21 10:17 ALT 100 units/L (7-56) H 03/04/21 10:17 Alkaline Phosphatase 226 units/L (35-129) H 03/04/21 10:17 Ammonia 71.0 umol/L (25-60) H 03/01/21 19:21 Troponin T 0.484 ng/mL (0.00-0.029) H* 03/01/21 20:55 Total Protein 5.0 g/dL (6.3-8.2) L 03/04/21 10:17 Albumin 2.2 g/dL (3.9-5) L 03/04/21 10:17 Albumin/Globulin Ratio 0.8 % 03/04/21 10:17 Triglycerides 400 mg/dL (2-149) H 03/01/21 19:21 Cholesterol 232 mg/dL (50-199) H 03/01/21 19:21 LDL Cholesterol Direct 130 mg/dL (50-130) 03/01/21 19:21 HDL Cholesterol 22 mg/dL (40-59) L 03/01/21 19:21 Cholesterol/HDL Ratio 10.54 % 03/01/21 19:21 Lipase 78 units/L (13-60) H 03/04/21 10:17 Procalcitonin 0.89 ng/mL (<0.15) 03/04/21 13:04 TSH 1.840 mlU/mL (0.270-4.200) 03/03/21 04:06 Arterial Blood Glucose 153 mg/dL (65-95) H 03/05/21 04:00 Arterial Blood Ionized Calcium 3.8 mg/dL (4.6-5.3) L 03/04/21 03:47 Urine Color [place] (Yellow) 03/01/21 21:40 Urine Turbidity Slightly-cloudy (Clear) 03/01/21 21:40 Urine pH 5.0 (5.0-7.0) 03/01/21 21:40 Ur Specific [place] 1.018 (1.003-1.030) 03/01/21 21:40 Urine Protein 30 mg/dl mg/dL (Negative) 03/01/21 21:40 Urine Glucose (UA) Neg mg/dL (Negative) 03/01/21 21:40 Urine Ketones Neg mg/dL (Negative) 03/01/21 21:40 Urine Blood Sm (Negative) 03/01/21 21:40 Urine Nitrite Neg (Negative) 03/01/21 21:40 Urine Bilirubin Neg (Negative) 03/01/21 21:40 Urine Urobilinogen 4.0 mg/dL (<2.0) 03/01/21 21:40 Ur Leukocyte Esterase Neg (Negative) 03/01/21 21:40 Urine WBC (Auto) 5.0 /HPF (0.0-6.0) 03/01/21 21:40 Urine RBC (Auto) 4.0 /HPF (0.0-6.0) 03/01/21 21:40 U Epithel Cells (Auto) 1.0 /HPF (0-13.0) 03/01/21 21:40 Urine Bacteria (Auto) 1+ /HPF (Negative) 03/01/21 21:40 Hyaline Casts 14 /LPF 03/01/21 21:40 Urine Mucus Few /HPF 03/01/21 21:40 Urine Yeast (Budding) Few /HPF 03/01/21 21:40 Nasal Screen MRSA (PCR) Positive (Negative) 03/02/21 05:00 Salicylates < 0.3 mg/dL (2.8-20.0) L 03/01/21 19:21 Urine Opiates Screen Positive 03/01/21 21:40 Urine Methadone Screen Negative 03/01/21 21:40 Acetaminophen 5.0 ug/mL (10.0-30.0) L 03/01/21 19:21 Ur Barbiturates Screen Negative 03/01/21 21:40 Ur Phencyclidine Scrn Negative 03/01/21 21:40 Ur Amphetamines Screen Negative 03/01/21 21:40 U Benzodiazepines Scrn Negative 03/01/21 21:40 Urine Cocaine Screen Negative 03/01/21 21:40 U Marijuana (THC) Screen Negative 03/01/21 21:40 Drugs of Abuse Note Disclamer 03/01/21 21:40 Blood Type O POSITIVE 03/01/21 19:21 Antibody Screen Negative 03/01/21 19:21 Microbiology: Microbiology 03/02/21 15:48 Tracheal Aspirate Sputum Culture - Preliminary 03/01/21 19:35 Peripheral/Venous Blood Culture - Preliminary NO GROWTH AFTER 72 HOURS 03/01/21 19:21 Peripheral/Venous Blood Culture - Preliminary NO GROWTH AFTER 72 HOURS [place]/IV: Voiding Method Indwelling Catheter Active Medications - Current Medications Current Medications: Generic Name Dose Route Start Last Admin Trade Name Freq PRN Reason Stop Dose Admin Acetaminophen 650 mg 03/02/21 00:18 Acetaminophen 650 Mg Rect Supp VT Q6H PRN Pain MILD(1-3)/Fever >100.5/VAL[place] Albuterol 2.5 mg 03/02/21 15:45 Albuterol 2.5 Mg/3 Ml Nebu IH Q4H PRN Shortness Of Breath Lipase/Protease/Amylase 1 each 03/03/21 10:53 Lipase 10,500/Protease 25,000/Amylase 43,750 (Units) Dr Cap FEEDTUBE PRN PRN For Clogged Feeding Tube Aspirin 81 mg 03/04/21 10:00 03/05/21 09:45 Aspirin 81 Mg Tab Chew PO Not Given QDAY KYLE Dextrose 50 ml 03/02/21 11:38 Dextrose 50% In Water (25gm) 50 Ml Syringe IV Q30MIN PRN Hypoglycemia Protocol Famotidine 20 mg 03/04/21 10:00 03/05/21 09:46 Famotidine 20 Mg Tab PO Not Given BID KYLE Fentanyl 50 mcg 03/02/21 04:16 03/03/21 12:00 Fentanyl 100 Mcg/2 Ml Inj IV 50 mcg Q10MIN PRN Administration ANALGESIA Heparin Sodium (Porcine) 5,200 unit 03/04/21 14:33 03/04/21 14:50 Heparin 10,000 Units/10 Ml Vial 40 unit/kg (5200 unit) 5,200 unit IV Administration Q6H PRN Anti-Xa Assay < 0.1 units/ml Hydrophilic Ointment 1 applic 03/02/21 15:42 Lip Therapy Vaseline TP Q2H PRN Dry Lips Fentanyl Citrate 2,000 mcg in 100 mls @ 6.55 mls/hr 03/01/21 21:30 03/05/21 11:41 Fentanyl Drip Premix IV 2 mcg/kg/hr TITR KYLE 13.1 mls/hr Administration Protocol 1 MCG/KG/HR Heparin Sodium/Sodium Chloride 25,000 unit in 500 mls @ 30 mls/hr 03/04/21 15:00 03/05/21 06:34 Heparin/ 0.45% Nacl-25,000 Unit/500 Ml IV 1,500 units/hr TITR KYLE 30 mls/hr Titration Protocol 1,500 UNITS/HR Insulin Glargine 5 units 03/03/21 22:00 03/04/21 22:34 Insulin Glargine 100 Units/Ml SUB-Q 5 units QHS KYLE Administration Insulin Human Lispro 0 unit 03/04/21 12:00 03/05/21 12:53 Insulin Lispro 100 Unit/Ml SUB-Q 2 unit Q6HR KYLE Administration Protocol Magnesium Hydroxide 30 ml 03/02/21 00:18 Magnesium Hydroxide (Mom) Oral Liqd Udc PO Q4H PRN Constipation Midodrine 10 mg 03/02/21 12:00 03/05/21 12:55 Midodrine 5 Mg Tab PO 10 mg TID@0800,1200,1600 KYLE Administration Morphine Sulfate 2 mg 03/02/21 00:18 Morphine 2 Mg/1 Ml Inj IV Q4H PRN Pain, Moderate (4-6) Morphine Sulfate 4 mg 03/02/21 00:18 Morphine 4 Mg/1 Ml Inj IV Q4H PRN Pain , Severe (7-10) Multi-Ingred Cream/Lotion/Oil/Oint 1 applic 03/02/21 15:42 Mineral Oil/Petrolatum, White Ophth Oint 3.5 Gm OU Q4HR PRN Dry Eye(s) Multivitamins/Minerals 1 each 03/03/21 22:00 03/05/21 09:45 Calcium Carb/Vit D3/Minerals 600 Mg/800 Units Tab PO Not Given BID KYLE Senna/Docusate Sodium 1 tab 03/02/21 22:00 03/05/21 09:46 Sennosides/Docusate Sodium 8.6/50 Mg Tab FEEDTUBE Not Given BID KYLE Simple Syrup 15 ml 03/03/21 10:53 Simple Syrup 15 Ml FEEDTUBE PRN PRN Hypoglycemia Simple Syrup 30 ml 03/03/21 10:53 Simple Syrup 15 Ml FEEDTUBE PRN PRN Hypoglycemia Sodium Bicarbonate 325 mg 03/03/21 10:53 Sodium Bicarbonate 325 Mg Tab FEEDTUBE PRN PRN For Clogged Feeding Tube Sodium Chloride 10 ml 03/02/21 10:00 03/05/21 09:46 Sodium Chloride 0.9% 10 Ml Flush Syringe IV 10 ml BID KYLE Administration Sodium Chloride 10 ml 03/02/21 00:18 Sodium Chloride 0.9% 10 Ml Flush Syringe IV PRN PRN LINE FLUSH Nutrition/Malnutrition Assess - Dietary Evaluation Nutrition/Malnutrition Findings: Nutrition Notes Start: 03/02/21 10:10 Freq: Status: Active Protocol: Document 03/05/21 11:22 CW (Rec: 03/05/21 11:34 CW [email or web address]) Nutrition Notes Initial or Follow up Reassessment Current Diagnosis Acute Kidney Injury,COPD, Diabetes,Sepsis,Hypertension, Heart Failure,Respiratory Failure Other Pertinent Diagnosis pneu, AMS Current Diet Glucerna 1.2 at 65 ml/hr; Flush of 100 ml q4h Labs/Tests 03/04/2021: Na 136 BUN 46 Cr 1.4 BG 151 Pertinent Medications Midodrine Lantus D5w 1/2ns 1L 20 mEq KCl Height 5 ft 10 in Weight 131 kg [place] Body Weight (kg) 75.45 BMI 41.4 Weight Status Morbidly Obese Subjective/Other Information F/U for TF start/tolerance. TF running at 35 ml/hr at this time. No reports of TF intolerance. Percent of energy/protein needs met: 54%/26% Burn Absent Trauma Absent Current % PO Negligible Minimum of two criteria No physical signs of malnutrition #1 Nutrition Diagnosis Inadequate oral intake Diagnosis Progress(for reassessment Continues documentation) Is patient on ventilator? Yes Is Patient Ambulatory and/or Out of Bed No REE-([facility]-confined to bed) 2614.728 Kcal/Kg value to use for calculation 14 Approximate Energy Requirements Using 1834 kcal/Kg Calculation Used for Recommendations Kcal/kg Additional Notes Protein: up to 2.5g/kg IBW (< or = to 189g) Fluid: 1 ml/kcal or per MD Nutrition Intervention Change Diet Order: Continue TF Nutrition Support: Glucerna 1.2 at 65 ml/hr Flush 100 ml q4h or per MD Kcal 1,872 Protein (gm) 94 Carbohydrates (gm) 179 Fat (gm) 94 Fluid (mL) 1,256 Goal #1 Meet at least 75% of kcal needs and protein needs as best as possible via TF Anticipated Discharge Needs: Unable to determine at this time Follow-Up By: 03/07/21 Additional Comments FU for TF at goal and tolerance
--- NOTE | 2021-03-05 14:01 | Progress Note ---
Assessment and Plan Acute hypoxemic respiratory failure NSTEMI Acute kidney injury Severe sepsis Bilateral pneumonia H/O congestive heart failure Diabetes type 2 Acute encephalopathy Elevated serum transaminases Anemia that is microcytic Leukocytosis Metabolic acidosis Lactic acidosis - get 2 sets of blood cultures next fever spike > 101F - get COVID-19 test done re: fevers, worsening hypoxemia, recent frequent hospitalizations and VTE - continue IV Heparin for VTE - follow 2D ECHO report re: EF / pulm HTN - complete Levaquin dosing - keep peep at 10 cm H2O - get CRP level and trend prn - discontinued Propofol, Zofran & Levaquin re: Qt prolongation - continue care as below otherwise; - continue Daily SAT and SBT assessment as tolerated - continue to wean supplemental oxygen for target O2 sat's > 90% acutely - VAP bundle addressed - continue lung protective strategies - continue bronchodilators with pulmonary hygiene per RT - wean per pulmonary driven protocols otherwise - continue accuchecks with glycemic control per SSI (While critically ill target blood glucose of 140-180 mg/dL; avoid hypoglycemia) - sedation prn for target RASS 0 to -1 - avoid nephrotoxins, renally dose all medications - continue to avoid benzodiazepine's, reduce the possibility of delirium - complete AB's per ID rec's (Vancomycin, Levaquin) - prn analgesia per CPOT score - Maintenance of sleep-wake cycle, avoid delirium - continue enteral nutritional support at goal rate as tolerated - G.I. & VTE prophylaxis - PT/OT/ROM exercises - continue mobility protocols for pressure ulcer prophylaxis - Monitor hemodynamics closely - continue other care per attending / other consultants - discharge planning ongoing concurrently .... Re-evaluate in am & prn CONDITION: CRITICAL PROGNOSIS: GUARDED CODE STATUS: FULL CODE The high probability of a clinically significant, sudden or life-threatening deterioration of the [respiratory, cardiovascular & neurologic] system(s) required my full and direct attention, intervention and personal management. The aggregate critical care time was [33] minutes without overlap. Time includes spent on; [x] Data Review and interpretation [x] Patient assessment and monitoring of vital signs [x] Documentation [x] Medication orders and management Subjective Date of service: 03/05/21 Principal diagnosis: Ac hypoxemic resp failure; NSTEMI; ALPHONSO; Sepsis; PNA; CHF; DM II; AMS Interval history: Patient is seen today for: Acute hypoxemic respiratory failure; NSTEMI; ALPHONSO; Severe sepsis; Pneumonia; CHF; DM II; Acute encephalopathy Seen and examined at bedside; 24hour events reviewed; nursing and respiratory care staff consulted; no adverse overnight events reported to me; resting peacefully in bed; FiO2 down to 75%; sedated; + nausea no vomiting; + fever of 102.2F yesterday; no overt hypotension Objective Vital Signs - 12hr 03/05/21 03/05/21 03/05/21 02:00 03:00 03:20 Temperature 100.1 F H Pulse Rate 95 H 104 H Pulse Rate [ From Monitor] Respiratory 22 22 Rate Blood Pressure 94/51 115/69 O2 Sat by Pulse 97 98 Oximetry 03/05/21 03/05/21 03/05/21 04:00 05:00 06:01 Temperature Pulse Rate 93 H 113 H 121 H Pulse Rate [ 93 H From Monitor] Respiratory 22 17 13 Rate Blood Pressure 91/50 127/76 150/91 O2 Sat by Pulse 98 100 99 Oximetry 03/05/21 03/05/21 03/05/21 06:02 07:00 07:43 Temperature Pulse Rate 123 H 98 H Pulse Rate [ From Monitor] Respiratory 22 Rate Blood Pressure 150/91 105/60 O2 Sat by Pulse 100 98 97 Oximetry 03/05/21 03/05/21 03/05/21 08:00 09:00 10:00 Temperature 100.1 F H Pulse Rate 104 H 100 H 112 H Pulse Rate [ 104 H From Monitor] Respiratory 22 20 17 Rate Blood Pressure 108/69 108/69 123/66 O2 Sat by Pulse 97 97 98 Oximetry 03/05/21 03/05/21 10:24 12:00 Temperature 99.6 F Pulse Rate 120 H Pulse Rate [ From Monitor] Respiratory Rate Blood Pressure O2 Sat by Pulse 97 Oximetry Constitutional: no acute distress, other (middle aged obese male without signifi cant ventiulator dyssynchrony) Eyes: non-icteric ENT: oropharynx moist, other (ETT 24 cm CLNIT) Neck: supple, no lymphadenopathy, no JVD, other (large circumference) Effort: mildly labored Ascultation: Bilateral: diminished breath sounds, rhonchi Percussion: Bilateral: not dull Cardiovascular: regular rate and rhythm Gastrointestinal: normoactive bowel sounds, soft, non-tender, non-distended (protuberant) Integumentary: normal Extremities: no cyanosis, pulses normal, no ischemia or petechiae, edema (trace) Neurologic: non-focal exam (grossly), pupils equal and round, CN II-XII normal, motor strength normal and Psychiatric: other (sedated) CBC and BMP: 03/04/21 16:26 03/04/21 10:17 ABG, PT/INR, D-dimer: ABG ABG pH 7.450 (7.320-7.450) 03/05/21 04:00 POC ABG pCO2 47.7 mmHg (32.0-48.0) 03/05/21 04:00 POC ABG pO2 129.1 mmHg (83-108) H 03/05/21 04:00 POC ABG HCO3 32.4 03/05/21 04:00 ABG O2 Saturation 98.7 (0-100) 03/05/21 04:00 PT/INR, D-dimer PT 15.6 Sec. (12.2-14.9) H 03/04/21 10:17 INR 1.18 (0.87-1.13) H 03/04/21 10:17 Abnormal lab findings: Abnormal Labs 03/01/21 03/01/21 03/01/21 19:15 19:21 19:21 WBC 12.7 H RBC 2.77 L Hgb 9.1 L Hct 27.7 L MCV 100 H MCH 33 H RDW 18.0 H Seg Neutrophils % Monocytes % (Manual) 17.0 H Seg Neutrophils # Monocytes # (Manual) 2.2 H PT INR Heparin Anti-Xa Level ABG pH POC ABG pCO2 POC ABG pO2 64.9 L ABG Hemoglobin 9.3 L ABG Oxyhemoglobin 93.0 L ABG Sodium 133.8 L ABG Potassium ABG Chloride 97.0 L ABG Glucose 191 H Carboxyhemoglobin Sodium Chloride Carbon Dioxide BUN Creatinine Glucose POC Glucose Lactic Acid Calcium Phosphorus Total Bilirubin Direct Bilirubin AST ALT Alkaline Phosphatase Ammonia Troponin T 0.493 H* Total Protein Albumin Triglycerides 400 H Cholesterol 232 H HDL Cholesterol 22 L Lipase Arterial Blood Glucose 191 H Arterial Blood Ionized Calcium 4.4 L Salicylates Acetaminophen 03/01/21 03/01/21 03/01/21 19:21 19:21 19:21 WBC RBC Hgb Hct MCV MCH RDW Seg Neutrophils % Monocytes % (Manual) Seg Neutrophils # Monocytes # (Manual) PT 16.6 H INR 1.28 H Heparin Anti-Xa Level ABG pH POC ABG pCO2 POC ABG pO2 ABG Hemoglobin ABG Oxyhemoglobin ABG Sodium ABG Potassium ABG Chloride ABG Glucose Carboxyhemoglobin Sodium 132 L Chloride 92.2 L Carbon Dioxide BUN 43 H Creatinine 2.4 H Glucose 190 H POC Glucose Lactic Acid 2.90 H* Calcium Phosphorus Total Bilirubin 1.60 H Direct Bilirubin 1.2 H AST 275 H ALT 156 H Alkaline Phosphatase 282 H Ammonia Troponin T Total Protein 5.8 L Albumin 2.6 L Triglycerides Cholesterol HDL Cholesterol Lipase 120 H Arterial Blood Glucose Arterial Blood Ionized Calcium Salicylates Acetaminophen 03/01/21 03/01/21 03/01/21 19:21 19:21 19:21 WBC RBC Hgb Hct MCV MCH RDW Seg Neutrophils % Monocytes % (Manual) Seg Neutrophils # Monocytes # (Manual) PT INR Heparin Anti-Xa Level ABG pH POC ABG pCO2 POC ABG pO2 ABG Hemoglobin ABG Oxyhemoglobin ABG Sodium ABG Potassium ABG Chloride ABG Glucose Carboxyhemoglobin Sodium Chloride Carbon Dioxide BUN Creatinine Glucose POC Glucose Lactic Acid Calcium Phosphorus Total Bilirubin Direct Bilirubin AST ALT Alkaline Phosphatase Ammonia 71.0 H Troponin T Total Protein Albumin Triglycerides Cholesterol HDL Cholesterol Lipase Arterial Blood Glucose Arterial Blood Ionized Calcium Salicylates < 0.3 L Acetaminophen 5.0 L 03/01/21 03/01/21 03/02/21 20:55 20:55 00:01 WBC RBC Hgb Hct MCV MCH RDW Seg Neutrophils % Monocytes % (Manual) Seg Neutrophils # Monocytes # (Manual) PT INR Heparin Anti-Xa Level ABG pH 7.234 L POC ABG pCO2 POC ABG pO2 240.5 H ABG Hemoglobin 9.3 L ABG Oxyhemoglobin 99.1 H ABG Sodium 135.3 L ABG Potassium ABG Chloride ABG Glucose 286 H Carboxyhemoglobin 0.3 L Sodium Chloride Carbon Dioxide BUN Creatinine Glucose POC Glucose Lactic Acid 4.30 H* Calcium Phosphorus Total Bilirubin Direct Bilirubin AST ALT Alkaline Phosphatase Ammonia Troponin T 0.484 H* Total Protein Albumin Triglycerides Cholesterol HDL Cholesterol Lipase Arterial Blood Glucose 286 H Arterial Blood Ionized Calcium Salicylates Acetaminophen 03/02/21 03/02/21 03/02/21 03:42 05:23 06:35 WBC RBC Hgb Hct MCV MCH RDW Seg Neutrophils % Monocytes % (Manual) Seg Neutrophils # Monocytes # (Manual) PT INR Heparin Anti-Xa Level ABG pH 7.225 L POC ABG pCO2 POC ABG pO2 181.8 H ABG Hemoglobin 9.4 L ABG Oxyhemoglobin 98.6 H ABG Sodium 132.1 L ABG Potassium 5.0 H ABG Chloride ABG Glucose 454 H Carboxyhemoglobin 0.3 L Sodium Chloride Carbon Dioxide BUN Creatinine Glucose POC Glucose 410 H Lactic Acid 7.50 H* Calcium Phosphorus Total Bilirubin Direct Bilirubin AST ALT Alkaline Phosphatase Ammonia Troponin T Total Protein Albumin Triglycerides Cholesterol HDL Cholesterol Lipase Arterial Blood Glucose 454 H Arterial Blood Ionized Calcium 4.2 L Salicylates Acetaminophen 03/02/21 03/02/21 03/02/21 10:48 10:48 10:48 WBC RBC Hgb Hct MCV MCH RDW Seg Neutrophils % Monocytes % (Manual) Seg Neutrophils # Monocytes # (Manual) PT INR Heparin Anti-Xa Level ABG pH POC ABG pCO2 POC ABG pO2 ABG Hemoglobin ABG Oxyhemoglobin ABG Sodium ABG Potassium ABG Chloride ABG Glucose Carboxyhemoglobin Sodium 132 L Chloride 93.3 L Carbon Dioxide 20 L BUN 46 H Creatinine 1.9 H Glucose 503 H* POC Glucose Lactic Acid 3.40 H* Calcium 7.9 L Phosphorus 5.80 H Total Bilirubin Direct Bilirubin AST ALT Alkaline Phosphatase Ammonia Troponin T Total Protein Albumin Triglycerides Cholesterol HDL Cholesterol Lipase Arterial Blood Glucose Arterial Blood Ionized Calcium Salicylates Acetaminophen 03/02/21 03/02/21 03/02/21 11:23 11:38 15:33 WBC RBC Hgb Hct MCV MCH RDW Seg Neutrophils % Monocytes % (Manual) Seg Neutrophils # Monocytes # (Manual) PT INR Heparin Anti-Xa Level ABG pH 7.318 L POC ABG pCO2 POC ABG pO2 ABG Hemoglobin 9.2 L ABG Oxyhemoglobin ABG Sodium 133.2 L ABG Potassium ABG Chloride ABG Glucose 504 H Carboxyhemoglobin 0.3 L Sodium Chloride Carbon Dioxide BUN Creatinine Glucose POC Glucose 468 H 445 H Lactic Acid Calcium Phosphorus Total Bilirubin Direct Bilirubin AST ALT Alkaline Phosphatase Ammonia Troponin T Total Protein Albumin Triglycerides Cholesterol HDL Cholesterol Lipase Arterial Blood Glucose 504 H Arterial Blood Ionized Calcium 4.2 L Salicylates Acetaminophen 03/02/21 03/02/21 03/02/21 16:28 16:28 16:28 WBC RBC Hgb 8.8 L Hct 26.0 L MCV MCH RDW Seg Neutrophils % Monocytes % (Manual) Seg Neutrophils # Monocytes # (Manual) PT 15.2 H INR 1.14 H Heparin Anti-Xa Level ABG pH POC ABG pCO2 POC ABG pO2 ABG Hemoglobin ABG Oxyhemoglobin ABG Sodium ABG Potassium ABG Chloride ABG Glucose Carboxyhemoglobin Sodium 135 L Chloride 93.8 L Carbon Dioxide BUN 48 H Creatinine 1.8 H Glucose 454 H POC Glucose Lactic Acid Calcium 7.6 L Phosphorus Total Bilirubin Direct Bilirubin AST ALT Alkaline Phosphatase Ammonia Troponin T Total Protein Albumin Triglycerides Cholesterol HDL Cholesterol Lipase Arterial Blood Glucose Arterial Blood Ionized Calcium Salicylates Acetaminophen 03/02/21 03/02/21 03/02/21 17:39 18:52 20:09 WBC RBC Hgb Hct MCV MCH RDW Seg Neutrophils % Monocytes % (Manual) Seg Neutrophils # Monocytes # (Manual) PT INR Heparin Anti-Xa Level ABG pH POC ABG pCO2 POC ABG pO2 ABG Hemoglobin ABG Oxyhemoglobin ABG Sodium ABG Potassium ABG Chloride ABG Glucose Carboxyhemoglobin Sodium Chloride Carbon Dioxide BUN Creatinine Glucose POC Glucose 404 H 357 H 347 H Lactic Acid Calcium Phosphorus Total Bilirubin Direct Bilirubin AST ALT Alkaline Phosphatase Ammonia Troponin T Total Protein Albumin Triglycerides Cholesterol HDL Cholesterol Lipase Arterial Blood Glucose Arterial Blood Ionized Calcium Salicylates Acetaminophen 03/02/21 03/02/21 03/02/21 21:03 22:00 22:55 WBC RBC Hgb Hct MCV MCH RDW Seg Neutrophils % Monocytes % (Manual) Seg Neutrophils # Monocytes # (Manual) PT INR Heparin Anti-Xa Level ABG pH POC ABG pCO2 POC ABG pO2 ABG Hemoglobin ABG Oxyhemoglobin ABG Sodium ABG Potassium ABG Chloride ABG Glucose Carboxyhemoglobin Sodium Chloride Carbon Dioxide BUN Creatinine Glucose POC Glucose 307 H 270 H 237 H Lactic Acid Calcium Phosphorus Total Bilirubin Direct Bilirubin AST ALT Alkaline Phosphatase Ammonia Troponin T Total Protein Albumin Triglycerides Cholesterol HDL Cholesterol Lipase Arterial Blood Glucose Arterial Blood Ionized Calcium Salicylates Acetaminophen 03/03/21 03/03/21 03/03/21 00:02 00:57 02:01 WBC RBC Hgb Hct MCV MCH RDW Seg Neutrophils % Monocytes % (Manual) Seg Neutrophils # Monocytes # (Manual) PT INR Heparin Anti-Xa Level ABG pH POC ABG pCO2 POC ABG pO2 ABG Hemoglobin ABG Oxyhemoglobin ABG Sodium ABG Potassium ABG Chloride ABG Glucose Carboxyhemoglobin Sodium Chloride Carbon Dioxide BUN Creatinine Glucose POC Glucose 252 H 214 H 261 H Lactic Acid Calcium Phosphorus Total Bilirubin Direct Bilirubin AST ALT Alkaline Phosphatase Ammonia Troponin T Total Protein Albumin Triglycerides Cholesterol HDL Cholesterol Lipase Arterial Blood Glucose Arterial Blood Ionized Calcium Salicylates Acetaminophen 03/03/21 03/03/21 03/03/21 03:07 03:10 03:50 WBC 13.7 H RBC 2.69 L Hgb 8.7 L Hct 26.9 L MCV 100 H MCH RDW 18.5 H Seg Neutrophils % 79.0 H Monocytes % (Manual) Seg Neutrophils # 10.8 H Monocytes # (Manual) PT INR Heparin Anti-Xa Level ABG pH POC ABG pCO2 50.9 H POC ABG pO2 81.9 L ABG Hemoglobin 8.7 L ABG Oxyhemoglobin ABG Sodium 134.2 L ABG Potassium ABG Chloride 96.0 L ABG Glucose 279 H Carboxyhemoglobin 0.4 L Sodium Chloride Carbon Dioxide BUN Creatinine Glucose POC Glucose 276 H Lactic Acid Calcium Phosphorus Total Bilirubin Direct Bilirubin AST ALT Alkaline Phosphatase Ammonia Troponin T Total Protein Albumin Triglycerides Cholesterol HDL Cholesterol Lipase Arterial Blood Glucose 279 H Arterial Blood Ionized Calcium 3.9 L Salicylates Acetaminophen 03/03/21 03/03/21 03/03/21 03:50 04:06 04:32 WBC RBC Hgb Hct MCV MCH RDW Seg Neutrophils % Monocytes % (Manual) Seg Neutrophils # Monocytes # (Manual) PT INR Heparin Anti-Xa Level ABG pH POC ABG pCO2 POC ABG pO2 ABG Hemoglobin ABG Oxyhemoglobin ABG Sodium ABG Potassium ABG Chloride ABG Glucose Carboxyhemoglobin Sodium Chloride 94.2 L Carbon Dioxide BUN 45 H Creatinine 1.9 H Glucose 261 H POC Glucose 256 H Lactic Acid Calcium 7.3 L Phosphorus Total Bilirubin Direct Bilirubin 0.9 H AST 208 H ALT 148 H Alkaline Phosphatase 251 H Ammonia Troponin T Total Protein 5.5 L Albumin 2.4 L Triglycerides Cholesterol HDL Cholesterol Lipase Arterial Blood Glucose Arterial Blood Ionized Calcium Salicylates Acetaminophen 03/03/21 03/03/21 03/03/21 05:23 06:06 07:07 WBC RBC Hgb Hct MCV MCH RDW Seg Neutrophils % Monocytes % (Manual) Seg Neutrophils # Monocytes # (Manual) PT INR Heparin Anti-Xa Level ABG pH POC ABG pCO2 POC ABG pO2 ABG Hemoglobin ABG Oxyhemoglobin ABG Sodium ABG Potassium ABG Chloride ABG Glucose Carboxyhemoglobin Sodium Chloride Carbon Dioxide BUN Creatinine Glucose POC Glucose 214 H 249 H 237 H Lactic Acid Calcium Phosphorus Total Bilirubin Direct Bilirubin AST ALT Alkaline Phosphatase Ammonia Troponin T Total Protein Albumin Triglycerides Cholesterol HDL Cholesterol Lipase Arterial Blood Glucose Arterial Blood Ionized Calcium Salicylates Acetaminophen 03/03/21 03/03/21 03/03/21 07:58 08:58 09:52 WBC RBC Hgb Hct MCV MCH RDW Seg Neutrophils % Monocytes % (Manual) Seg Neutrophils # Monocytes # (Manual) PT INR Heparin Anti-Xa Level ABG pH POC ABG pCO2 POC ABG pO2 ABG Hemoglobin ABG Oxyhemoglobin ABG Sodium ABG Potassium ABG Chloride ABG Glucose Carboxyhemoglobin Sodium Chloride Carbon Dioxide BUN Creatinine Glucose POC Glucose 227 H 215 H 207 H Lactic Acid Calcium Phosphorus Total Bilirubin Direct Bilirubin AST ALT Alkaline Phosphatase Ammonia Troponin T Total Protein Albumin Triglycerides Cholesterol HDL Cholesterol Lipase Arterial Blood Glucose Arterial Blood Ionized Calcium Salicylates Acetaminophen 03/03/21 03/03/21 03/03/21 10:55 11:44 12:53 WBC RBC Hgb Hct MCV MCH RDW Seg Neutrophils % Monocytes % (Manual) Seg Neutrophils # Monocytes # (Manual) PT INR Heparin Anti-Xa Level ABG pH POC ABG pCO2 POC ABG pO2 ABG Hemoglobin ABG Oxyhemoglobin ABG Sodium ABG Potassium ABG Chloride ABG Glucose Carboxyhemoglobin Sodium Chloride Carbon Dioxide BUN Creatinine Glucose POC Glucose 198 H 210 H 203 H Lactic Acid Calcium Phosphorus Total Bilirubin Direct Bilirubin AST ALT Alkaline Phosphatase Ammonia Troponin T Total Protein Albumin Triglycerides Cholesterol HDL Cholesterol Lipase Arterial Blood Glucose Arterial Blood Ionized Calcium Salicylates Acetaminophen 03/03/21 03/03/21 03/03/21 13:53 14:58 15:23 WBC RBC Hgb Hct MCV MCH RDW Seg Neutrophils % Monocytes % (Manual) Seg Neutrophils # Monocytes # (Manual) PT INR Heparin Anti-Xa Level ABG pH POC ABG pCO2 POC ABG pO2 ABG Hemoglobin ABG Oxyhemoglobin ABG Sodium ABG Potassium ABG Chloride ABG Glucose Carboxyhemoglobin Sodium Chloride Carbon Dioxide BUN Creatinine Glucose POC Glucose 210 H 187 H Lactic Acid 3.10 H* Calcium Phosphorus Total Bilirubin Direct Bilirubin AST ALT Alkaline Phosphatase Ammonia Troponin T Total Protein Albumin Triglycerides Cholesterol HDL Cholesterol Lipase Arterial Blood Glucose Arterial Blood Ionized Calcium Salicylates Acetaminophen 03/03/21 03/03/21 03/03/21 15:51 16:25 16:53 WBC RBC Hgb Hct MCV MCH RDW Seg Neutrophils % Monocytes % (Manual) Seg Neutrophils # Monocytes # (Manual) PT INR Heparin Anti-Xa Level ABG pH POC ABG pCO2 POC ABG pO2 ABG Hemoglobin ABG Oxyhemoglobin ABG Sodium ABG Potassium ABG Chloride ABG Glucose Carboxyhemoglobin Sodium Chloride 91.0 L Carbon Dioxide 34 H BUN 47 H Creatinine 1.7 H Glucose 190 H POC Glucose 182 H 179 H Lactic Acid Calcium 7.6 L Phosphorus Total Bilirubin Direct Bilirubin AST ALT Alkaline Phosphatase Ammonia Troponin T Total Protein Albumin Triglycerides Cholesterol HDL Cholesterol Lipase Arterial Blood Glucose Arterial Blood Ionized Calcium Salicylates Acetaminophen 03/03/21 03/03/21 03/03/21 17:55 19:37 20:57 WBC RBC Hgb Hct MCV MCH RDW Seg Neutrophils % Monocytes % (Manual) Seg Neutrophils # Monocytes # (Manual) PT INR Heparin Anti-Xa Level ABG pH POC ABG pCO2 POC ABG pO2 ABG Hemoglobin ABG Oxyhemoglobin ABG Sodium ABG Potassium ABG Chloride ABG Glucose Carboxyhemoglobin Sodium Chloride Carbon Dioxide BUN Creatinine Glucose POC Glucose 185 H 174 H 175 H Lactic Acid Calcium Phosphorus Total Bilirubin Direct Bilirubin AST ALT Alkaline Phosphatase Ammonia Troponin T Total Protein Albumin Triglycerides Cholesterol HDL Cholesterol Lipase Arterial Blood Glucose Arterial Blood Ionized Calcium Salicylates Acetaminophen 03/03/21 03/03/21 03/03/21 22:02 22:56 23:10 WBC RBC Hgb Hct MCV MCH RDW Seg Neutrophils % Monocytes % (Manual) Seg Neutrophils # Monocytes # (Manual) PT INR Heparin Anti-Xa Level 0.75 H ABG pH POC ABG pCO2 POC ABG pO2 ABG Hemoglobin ABG Oxyhemoglobin ABG Sodium ABG Potassium ABG Chloride ABG Glucose Carboxyhemoglobin Sodium Chloride Carbon Dioxide BUN Creatinine Glucose POC Glucose 170 H 160 H Lactic Acid Calcium Phosphorus Total Bilirubin Direct Bilirubin AST ALT Alkaline Phosphatase Ammonia Troponin T Total Protein Albumin Triglycerides Cholesterol HDL Cholesterol Lipase Arterial Blood Glucose Arterial Blood Ionized Calcium Salicylates Acetaminophen 03/03/21 03/04/21 03/04/21 23:42 00:52 01:55 WBC RBC Hgb Hct MCV MCH RDW Seg Neutrophils % Monocytes % (Manual) Seg Neutrophils # Monocytes # (Manual) PT INR Heparin Anti-Xa Level ABG pH POC ABG pCO2 POC ABG pO2 ABG Hemoglobin ABG Oxyhemoglobin ABG Sodium ABG Potassium ABG Chloride ABG Glucose Carboxyhemoglobin Sodium Chloride Carbon Dioxide BUN Creatinine Glucose POC Glucose 161 H 167 H 119 H Lactic Acid Calcium Phosphorus Total Bilirubin Direct Bilirubin AST ALT Alkaline Phosphatase Ammonia Troponin T Total Protein Albumin Triglycerides Cholesterol HDL Cholesterol Lipase Arterial Blood Glucose Arterial Blood Ionized Calcium Salicylates Acetaminophen 03/04/21 03/04/21 03/04/21 02:58 03:47 04:03 WBC RBC Hgb Hct MCV MCH RDW Seg Neutrophils % Monocytes % (Manual) Seg Neutrophils # Monocytes # (Manual) PT INR Heparin Anti-Xa Level ABG pH POC ABG pCO2 57.3 H POC ABG pO2 63.7 L ABG Hemoglobin 8.4 L ABG Oxyhemoglobin 88.6 L ABG Sodium 132.5 L ABG Potassium 3.2 L ABG Chloride 94.0 L ABG Glucose 129 H Carboxyhemoglobin Sodium Chloride Carbon Dioxide BUN Creatinine Glucose POC Glucose 111 H 122 H Lactic Acid Calcium Phosphorus Total Bilirubin Direct Bilirubin AST ALT Alkaline Phosphatase Ammonia Troponin T Total Protein Albumin Triglycerides Cholesterol HDL Cholesterol Lipase Arterial Blood Glucose 129 H Arterial Blood Ionized Calcium 3.8 L Salicylates Acetaminophen 03/04/21 03/04/21 03/04/21 05:15 05:26 05:26 WBC RBC Hgb 7.9 L Hct 23.7 L MCV MCH RDW Seg Neutrophils % Monocytes % (Manual) Seg Neutrophils # Monocytes # (Manual) PT INR Heparin Anti-Xa Level ABG pH POC ABG pCO2 POC ABG pO2 ABG Hemoglobin ABG Oxyhemoglobin ABG Sodium ABG Potassium ABG Chloride ABG Glucose Carboxyhemoglobin Sodium Chloride Carbon Dioxide BUN Creatinine Glucose POC Glucose 127 H Lactic Acid Calcium Phosphorus Total Bilirubin Direct Bilirubin 0.6 H AST 123 H ALT 105 H Alkaline Phosphatase 232 H Ammonia Troponin T Total Protein 4.8 L Albumin 2.2 L Triglycerides Cholesterol HDL Cholesterol Lipase Arterial Blood Glucose Arterial Blood Ionized Calcium Salicylates Acetaminophen 03/04/21 03/04/21 03/04/21 05:26 06:01 06:53 WBC RBC Hgb Hct MCV MCH RDW Seg Neutrophils % Monocytes % (Manual) Seg Neutrophils # Monocytes # (Manual) PT INR Heparin Anti-Xa Level 0.71 H ABG pH POC ABG pCO2 POC ABG pO2 ABG Hemoglobin ABG Oxyhemoglobin ABG Sodium ABG Potassium ABG Chloride ABG Glucose Carboxyhemoglobin Sodium Chloride Carbon Dioxide BUN Creatinine Glucose POC Glucose 120 H 117 H Lactic Acid Calcium Phosphorus Total Bilirubin Direct Bilirubin AST ALT Alkaline Phosphatase Ammonia Troponin T Total Protein Albumin Triglycerides Cholesterol HDL Cholesterol Lipase Arterial Blood Glucose Arterial Blood Ionized Calcium Salicylates Acetaminophen 03/04/21 03/04/21 03/04/21 07:57 10:17 10:17 WBC RBC 2.51 L Hgb 8.3 L Hct 25.3 L MCV 101 H MCH 33 H RDW 18.5 H Seg Neutrophils % Monocytes % (Manual) Seg Neutrophils # Monocytes # (Manual) PT INR Heparin Anti-Xa Level ABG pH POC ABG pCO2 POC ABG pO2 ABG Hemoglobin ABG Oxyhemoglobin ABG Sodium ABG Potassium ABG Chloride ABG Glucose Carboxyhemoglobin Sodium 136 L Chloride 93.1 L Carbon Dioxide 33 H BUN 46 H Creatinine 1.4 H Glucose 151 H POC Glucose 129 H Lactic Acid Calcium 7.5 L Phosphorus Total Bilirubin Direct Bilirubin AST 126 H ALT 100 H Alkaline Phosphatase 226 H Ammonia Troponin T Total Protein 5.0 L Albumin 2.2 L Triglycerides Cholesterol HDL Cholesterol Lipase Arterial Blood Glucose Arterial Blood Ionized Calcium Salicylates Acetaminophen 03/04/21 03/04/21 03/04/21 10:17 10:17 11:26 WBC RBC Hgb Hct MCV MCH RDW Seg Neutrophils % Monocytes % (Manual) Seg Neutrophils # Monocytes # (Manual) PT 15.6 H INR 1.18 H Heparin Anti-Xa Level ABG pH POC ABG pCO2 POC ABG pO2 ABG Hemoglobin ABG Oxyhemoglobin ABG Sodium ABG Potassium ABG Chloride ABG Glucose Carboxyhemoglobin Sodium Chloride Carbon Dioxide BUN Creatinine Glucose POC Glucose 167 H Lactic Acid Calcium Phosphorus Total Bilirubin Direct Bilirubin AST ALT Alkaline Phosphatase Ammonia Troponin T Total Protein Albumin Triglycerides Cholesterol HDL Cholesterol Lipase 78 H Arterial Blood Glucose Arterial Blood Ionized Calcium Salicylates Acetaminophen 03/04/21 03/04/21 03/04/21 13:04 16:26 17:58 WBC RBC Hgb 7.7 L Hct 23.2 L MCV MCH RDW Seg Neutrophils % Monocytes % (Manual) Seg Neutrophils # Monocytes # (Manual) PT INR Heparin Anti-Xa Level < 0.10 L ABG pH POC ABG pCO2 POC ABG pO2 ABG Hemoglobin ABG Oxyhemoglobin ABG Sodium ABG Potassium ABG Chloride ABG Glucose Carboxyhemoglobin Sodium Chloride Carbon Dioxide BUN Creatinine Glucose POC Glucose 167 H Lactic Acid Calcium Phosphorus Total Bilirubin Direct Bilirubin AST ALT Alkaline Phosphatase Ammonia Troponin T Total Protein Albumin Triglycerides Cholesterol HDL Cholesterol Lipase Arterial Blood Glucose Arterial Blood Ionized Calcium Salicylates Acetaminophen 03/04/21 03/05/21 03/05/21 23:47 04:00 05:06 WBC RBC Hgb Hct MCV MCH RDW Seg Neutrophils % Monocytes % (Manual) Seg Neutrophils # Monocytes # (Manual) PT INR Heparin Anti-Xa Level ABG pH POC ABG pCO2 POC ABG pO2 129.1 H ABG Hemoglobin 8.3 L ABG Oxyhemoglobin ABG Sodium 131.4 L ABG Potassium ABG Chloride 95.0 L ABG Glucose 153 H Carboxyhemoglobin Sodium Chloride Carbon Dioxide BUN Creatinine Glucose POC Glucose 153 H 139 H Lactic Acid Calcium Phosphorus Total Bilirubin Direct Bilirubin AST ALT Alkaline Phosphatase Ammonia Troponin T Total Protein Albumin Triglycerides Cholesterol HDL Cholesterol Lipase Arterial Blood Glucose 153 H Arterial Blood Ionized Calcium Salicylates Acetaminophen 03/05/21 11:43 WBC RBC Hgb Hct MCV MCH RDW Seg Neutrophils % Monocytes % (Manual) Seg Neutrophils # Monocytes # (Manual) PT INR Heparin Anti-Xa Level ABG pH POC ABG pCO2 POC ABG pO2 ABG Hemoglobin ABG Oxyhemoglobin ABG Sodium ABG Potassium ABG Chloride ABG Glucose Carboxyhemoglobin Sodium Chloride Carbon Dioxide BUN Creatinine Glucose POC Glucose 174 H Lactic Acid Calcium Phosphorus Total Bilirubin Direct Bilirubin AST ALT Alkaline Phosphatase Ammonia Troponin T Total Protein Albumin Triglycerides Cholesterol HDL Cholesterol Lipase Arterial Blood Glucose Arterial Blood Ionized Calcium Salicylates Acetaminophen Chest x-ray: image reviewed (no newq process) Allied health notes reviewed: nursing
[2021-03-05 14:48] LABS: Calcium 7.5 mg/dL (8.4-10.2)
--- NOTE | 2021-03-05 14:50 | Progress Note ---
Assessment and Plan Echo 12/13/2020 - EF 55-60%, otherwise technically difficult study. Echo 05/2016 - LV mildly dilated, EF 55-60%, grade II diastolic dysfxn, RV mildly enlarged, normal RV sys fxn, LA mildly dilated, RA mildly dilated, mild- mod AR, mild CT, mild aortic root dilatation. May benefit from addition of gentle IV diuresis when hemodynamically stable. Continue heparin gtt for now. Plan for ischemic eval when clinically stable. Eventually plan to transition to Coumadin for tx of acute RLE DVT. Pt has a hx of PE and has a documented hx of failing Xa inhibitors. He was diagnosed with a LLE DVT in March 2020 and appears to have been on Coumadin as an outpatient. Pt seen in conjunction with Dr. Heard, who agrees with the assessment and plan of care. - Patient Problems (1) Encephalopathy Current Visit: Yes Status: Acute (2) Acute and chronic respiratory failure ([id number]) Current Visit: Yes Status: Acute Plan to address problem: 4L home O2 (3) Severe sepsis Current Visit: Yes Status: Acute (4) Pneumonia Current Visit: Yes Status: Acute Qualifiers: Laterality: bilateral (5) Chronic heart failure with preserved ejection fraction (HFpEF) Current Visit: Yes Status: Chronic (6) ALPHONSO (acute kidney injury) Current Visit: Yes Status: Acute Plan to address problem: Required HD x 3 months (last HD 01/2021) (7) Transaminitis Current Visit: Yes Status: Acute (8) Anemia Current Visit: Yes Status: Acute (9) NSTEMI (non-ST elevated myocardial infarction) Current Visit: Yes Status: Acute Plan to address problem: Type 2 (10) Acute deep vein thrombosis (DVT) of right lower extremity Current Visit: Yes Status: Acute (11) Left leg DVT Onset Date: ~03/2020 Current Visit: Yes Status: Chronic (12) History of pulmonary embolus (PE) Current Visit: Yes Status: Chronic (13) COPD (chronic obstructive pulmonary disease) Current Visit: Yes Status: Chronic 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 (14) KAM (obstructive sleep apnea) Current Visit: Yes Status: Chronic (15) Chronic hypotension Current Visit: Yes Status: Chronic (16) H/O: HTN (hypertension) Current Visit: Yes Status: Chronic (17) HLD (hyperlipidemia) Current Visit: Yes Status: Chronic Qualifiers: Hyperlipidemia type: mixed hyperlipidemia Qualified Code(s): E78.2 - Mixed hyperlipidemia (18) DM2 (diabetes mellitus, type 2) Current Visit: Yes Status: Chronic (19) Tobacco abuse Current Visit: Yes Status: Chronic (20) Medical non-compliance Current Visit: Yes Status: Chronic Subjective Date of service: 03/05/21 Principal diagnosis: NSTEMI 2 Interval history: No acute events overnight. Tele reviewed - SR 90-100s, no events. Objective Last Vital Signs Temp 99.6 F 03/05/21 12:00 Pulse 88 03/05/21 14:00 Resp 22 03/05/21 14:00 BP 103/55 03/05/21 14:00 Pulse Ox 99 03/05/21 14:00 - Physical Examination General: Other (intubated) HEENT: Positive: Normocephaly Neck: Positive: neck supple Cardiac: Positive: Reg Rate and Rhythm, S1/S2 Lungs: Positive: Ventilated Respirations Neuro: Positive: Other (intubated) Abdomen: Positive: Soft Skin: Negative: Rash Musculoskeletal: No Fluid Collection Extremities: Present: lower extr. pulses, warm, Other (anasarca) - Labs and Meds CBC 03/04/21 Range/Units 16:26 Hgb 7.7 L (11.8-15.2) gm/dl Hct 23.2 L (35.5-45.6) % - Imaging and Cardiology EKG: report reviewed, image reviewed Echo: report reviewed (12/2020 - EF 55-60%) Cardiac cath: pending - Telemetry EKG Rhythm: Sinus Rhythm - EKG Sinus rhythms and dysrhythmias: sinus rhythm AV and intraventricular conduction: right bundle branch block Repolarization changes or abnormalities: nonspecific abnormality, ST segment, and/or T wave - Allied health notes Allied health notes reviewed: nursing
[2021-03-05 15:07] LABS: Hematocrit 23.8 % (35.5-45.6); Hemoglobin 7.8 gm/dl (11.8-15.2); Mean Corpuscular HGB Conc 33 % (32-34); Mean Corpuscular Volume 100 fl (84-94); Platelet Count 234 K/mm3 (140-440); Red Blood Count 2.38 M/mm3 (3.65-5.03); Red Cell Distribution Width 18.2 % (13.2-15.2)
[2021-03-05] MEDS: INSULIN GLARGINE 100 UNITS/ML SUB-Q SCH (21:34)
[2021-03-06] MEDS: INSULIN LISPRO 100 UNIT/ML SUB-Q SCH ×4 (00:16→17:59)
[2021-03-06] MEDS: fentaNYL DRIP Premix 2,000 MCG/100 ML BAG IV SCH ×5 (00:24→21:55)
[2021-03-06 05:33] LABS: Basophils # (Auto) 0.1 K/mm3 (0.0-0.1); Basophils % (Auto) 0.3 % (0.0-1.8); Eosinophils % (Auto) 0.2 % (0.0-4.3); Hematocrit 24.9 % (35.5-45.6); Hemoglobin 8.2 gm/dl (11.8-15.2); Lymphocytes # (Auto) 3.4 K/mm3 (1.2-5.4); Lymphocytes % (Auto) 22.4 % (13.4-35.0); Mean Corpuscular HGB Conc 33 % (32-34); Mean Corpuscular Volume 100 fl (84-94); Monocytes # (Auto) 0.7 K/mm3 (0.0-0.8); Monocytes % (Auto) 4.5 % (0.0-7.3); Platelet Count 197 K/mm3 (140-440); Red Blood Count 2.48 M/mm3 (3.65-5.03); Red Cell Distribution Width 18.6 % (13.2-15.2)
[2021-03-06 05:52] LABS: Alanine Aminotransferase 74 units/L (7-56); BUN/Creatinine Ratio 38; Blood Urea Nitrogen 49 mg/dL (9-20); Calcium 7.3 mg/dL (8.4-10.2); Hemolysis Index 2
[2021-03-06] MEDS ORDERED: MAGNESIUM SULFATE 4 GM/100 ML BAG IV ONE (08:00)
[2021-03-06] MEDS ORDERED: POTASSIUM CHLORIDE 20 MEQ PACKET FEEDTUBE ONE (08:00)
[2021-03-06] MEDS: CALCIUM CARB/VIT D3/MINERALS 600 MG/800 UNITS TAB PO SCH ×3 (09:04→21:55)
--- NOTE | 2021-03-06 09:15 | Progress Note ---
Assessment and Plan HFpEF * Echo 12/13/2020 - EF 55-60%, otherwise technically difficult study. * Echo 05/2016 - LV mildly dilated, EF 55-60%, grade II diastolic dysfxn, RV mildly enlarged, normal RV sys fxn, LA mildly dilated, RA mildly dilated, mild-mod AR, mild RI, mild aortic root dilatation. * May benefit from addition of gentle IV diuresis when hemodynamically stable. Acute hypoxic resporitary failure * Secondary to pna * Currently intubated. Pulmonology is following DVT of RLE * Continue heparin gtt. Plan to transition to Coumadin once patient is hemodynamically stable * He was diagnosed with a LLE DVT in March 2020 and appears to have been on Coumadin as an outpatient. Hypotension * Agree wtih Midodrine 10mg TID Patient seen in conjunction with Dr. Heard who agrees with this plan of care. Will continue to follow. - Patient Problems (1) ALPHONSO (acute kidney injury) Current Visit: Yes Status: Acute (2) Acute and chronic respiratory failure ([id number]) Current Visit: Yes Status: Acute (3) Acute deep vein thrombosis (DVT) of right lower extremity Current Visit: Yes Status: Acute (4) Encephalopathy Current Visit: Yes Status: Acute (5) NSTEMI (non-ST elevated myocardial infarction) Current Visit: Yes Status: Acute (6) Transaminitis Current Visit: Yes Status: Acute (7) COPD (chronic obstructive pulmonary disease) Current Visit: Yes Status: Chronic (8) Chronic heart failure with preserved ejection fraction (HFpEF) Current Visit: Yes Status: Chronic (9) DM2 (diabetes mellitus, type 2) Current Visit: Yes Status: Chronic (10) H/O: HTN (hypertension) Current Visit: Yes Status: Chronic (11) History of pulmonary embolus (PE) Current Visit: Yes Status: Chronic Subjective Date of service: 03/06/21 Principal diagnosis: NSTEMI 2 Interval history: Patient resting in bed with no complaints of chest pain or difficulty breathing. Patient complains of leg cramps Sinus tachy 110s on monitor Objective Last Vital Signs Temp 100.7 F H 03/06/21 07:51 Pulse 105 H 03/06/21 07:21 Resp 16 03/06/21 07:00 BP 91/56 03/06/21 07:21 Pulse Ox 97 03/06/21 07:21 - Physical Examination General: No Apparent Distress, Other (intubated) HEENT: Positive: Normocephaly Neck: Positive: neck supple, trachea midline Cardiac: Positive: Regular Rhythm, Tachycardia Lungs: Positive: Normal Breath Sounds Neuro: Positive: Grossly Intact, Other (intubated) Abdomen: Positive: Soft Skin: Negative: Rash Incision: Cardiac Cath Site Musculoskeletal: No Fluid Collection Extremities: Present: lower extr. pulses, +2 Edema, warm, Other (anasarca) - Labs and Meds Cardiac Enzymes 03/06/21 Range/Units 05:20 AST 120 H (5-40) units/L CBC 03/05/21 03/06/21 Range/Units 13:35 05:20 WBC 10.9 15.2 H (4.5-11.0) K/mm3 RBC 2.38 L 2.48 L (3.65-5.03) M/mm3 Hgb 7.8 L 8.2 L (11.8-15.2) gm/dl Hct 23.8 L 24.9 L (35.5-45.6) % Plt Count 234 197 (140-440) K/mm3 Lymph # (Auto) 3.4 (1.2-5.4) K/mm3 Geary # (Auto) 0.7 (0.0-0.8) K/mm3 Eos # (Auto) 0.0 (0.0-0.4) K/mm3 Baso # (Auto) 0.1 (0.0-0.1) K/mm3 Comprehensive Metabolic Panel 03/05/21 03/06/21 Range/Units 13:35 05:20 Sodium 138 135 L (137-145) mmol/L Potassium 3.7 3.7 (3.6-5.0) mmol/L Chloride 94.4 L 94.5 L (98-107) mmol/L Carbon Dioxide 28 29 (22-30) mmol/L BUN 49 H 49 H (9-20) mg/dL Creatinine 1.6 H 1.3 (0.8-1.3) mg/dL Glucose 165 H 121 H (75-100) mg/dL Calcium 7.5 L 7.3 L (8.4-10.2) mg/dL AST 120 H (5-40) units/L ALT 74 H (7-56) units/L Alkaline Phosphatase 306 H (35-129) units/L Total Protein 4.5 L (6.3-8.2) g/dL Albumin 2.0 L (3.9-5) g/dL - Imaging and Cardiology EKG: report reviewed, image reviewed Echo: report reviewed (12/2020 - EF 55-60%) Cardiac cath: pending - Telemetry EKG Rhythm: Sinus Tachycardia - EKG Sinus rhythms and dysrhythmias: sinus tachycardia AV and intraventricular conduction: right bundle branch block Repolarization changes or abnormalities: nonspecific abnormality, ST segment, and/or T wave - Allied health notes Allied health notes reviewed: nursing
[2021-03-06] MEDS: ASPIRIN 81 MG TAB CHEW PO SCH (09:44)
[2021-03-06] MEDS: MIDODRINE 5 MG TAB PO SCH ×3 (09:44→16:15)
[2021-03-06] MEDS: FAMOTIDINE 20 MG TAB PO SCH ×2 (09:44→21:56)
[2021-03-06] MEDS: SENNOSIDES/DOCUSATE SODIUM 8.6/50 MG TAB FEEDTUBE SCH ×2 (09:44→21:56)
[2021-03-06] MEDS ORDERED: ACETAMINOPHEN 325 MG/10.15 ML ORAL LIQD UNIT DOSE FEEDTUBE PRN (10:00)
--- NOTE | 2021-03-06 10:16 | Progress Note ---
Assessment and Plan Assessment: * Oliguric acute kidney injury secondary to prerenal azotemia vs sepsis related ATN * Sepsis --Blood cx: NGTD * Acute hypoxic respiratory failure * PUI - r/o COVID * Metabolic acidosis * Diabetic ketoacidosis * Hypocalcemia * Hyperosmolar hyponatremia * Elevated LFTs Plan * Renal function is stable * Glycemic contro per primary team * Antibiotics as per primary * COVID results pending * Cardiology and GI note reviewed * Renally dose medications * Avoid nephrotoxins * Will follow peripherally Subjective Date of service: 03/06/21 Principal diagnosis: Ac hypoxemic resp failure; NSTEMI; ALPHONSO; Sepsis; PNA; CHF; DM II; AMS Interval history: Patient remains intubated - FiO2 65% Objective - Vital Signs Vital signs: Vital Signs - 12hr 03/05/21 03/05/21 03/05/21 23:00 23:09 23:47 Temperature 100.2 F H Pulse Rate 84 82 Pulse Rate [ From Monitor] Respiratory 22 22 Rate Blood Pressure 119/54 119/54 O2 Sat by Pulse 98 100 Oximetry 03/06/21 03/06/21 03/06/21 00:00 00:07 01:00 Temperature Pulse Rate 80 79 108 H Pulse Rate [ 113 H From Monitor] Respiratory 22 21 Rate Blood Pressure 117/54 117/54 134/71 O2 Sat by Pulse 100 100 100 Oximetry 03/06/21 03/06/21 03/06/21 02:00 03:00 04:00 Temperature 99.8 F H Pulse Rate 102 H 93 H 101 H Pulse Rate [ 108 H From Monitor] Respiratory 22 22 22 Rate Blood Pressure 126/70 121/61 104/59 O2 Sat by Pulse 96 93 96 Oximetry 03/06/21 03/06/21 03/06/21 04:39 05:00 06:00 Temperature Pulse Rate 108 H 102 H 105 H Pulse Rate [ From Monitor] Respiratory 22 22 Rate Blood Pressure 104/59 105/53 119/59 O2 Sat by Pulse 97 96 96 Oximetry 03/06/21 03/06/21 03/06/21 07:00 07:21 07:51 Temperature 100.7 F H Pulse Rate 97 H 105 H Pulse Rate [ From Monitor] Respiratory 16 Rate Blood Pressure 91/56 91/56 O2 Sat by Pulse 96 97 Oximetry - General Appearance General appearance: well-developed, well-nourished, intubated EENT: ATNC, other (ETT in place) - Lab 03/06/21 05:20 03/06/21 05:20 Most recent lab results ABG pH 7.426 (7.320-7.450) 03/06/21 03:30 ABG O2 Saturation 90.9 (0-100) 03/06/21 03:30 Calcium 7.3 mg/dL (8.4-10.2) L 03/06/21 05:20 Phosphorus 3.50 mg/dL (2.5-4.5) 03/06/21 05:20 Magnesium 1.50 mg/dL (1.7-2.3) L 03/06/21 05:20 Medications & Allergies - Medications Allergies/Adverse Reactions: Allergies Penicillins Allergy (Verified 03/30/19 10:45) Rash Home Medications: Home Medications Medication Instructions Recorded Confirmed Last Taken Type Fluticasone/Salmeterol [Advair 1 puff IH BID 04/27/13 01/16/14 04/27/13 History Diskus 250-50 mcg] Potassium Chloride [Klor-Con M10] 10 meq PO QDAY 04/27/13 01/16/14 04/27/13 History hydroCHLOROthiazide [Hctz] 12.5 mg PO QDAY 04/27/13 01/16/14 04/27/13 History Albuterol Sulfate [Proair 90 mcg IH Q4HR PRN #2 [email or web address] 01/22/19 Unknown Rx Respiclick] Albuterol Sulfate [Albuterol 0.63% 0.63 mg IH Q4HR PRN #2 ml 01/23/19 Unknown Rx NEBS] Ipratropium [Atrovent NEB] 0.5 mg IH Q4HR #2 ml 01/23/19 Unknown Rx metFORMIN [Glucophage] 500 mg PO BID #30 tablet 03/30/19 Unknown Rx Active Medications: Generic Name Dose Route Start Last Admin Trade Name Freq PRN Reason Stop Dose Admin Acetaminophen 650 mg 03/06/21 10:00 Acetaminophen 325 Mg/10.15 Ml Oral Liqd Unit Dose FEEDTUBE Q6H PRN Pain MILD(1-3)/Fever >100.5/VALDES Albuterol 2.5 mg 03/02/21 15:45 Albuterol 2.5 Mg/3 Ml Nebu IH Q4H PRN Shortness Of Breath Lipase/Protease/Amylase 1 each 03/03/21 10:53 Lipase 10,500/Protease 25,000/Amylase 43,750 (Units) Dr Cap FEEDTUBE PRN PRN For Clogged Feeding Tube Aspirin 81 mg 03/04/21 10:00 03/06/21 09:44 Aspirin 81 Mg Tab Chew PO 81 mg QDAY KYLE Administration Dextrose 50 ml 03/02/21 11:38 Dextrose 50% In Water (25gm) 50 Ml Syringe IV Q30MIN PRN Hypoglycemia Protocol Famotidine 20 mg 03/04/21 10:00 03/06/21 09:44 Famotidine 20 Mg Tab PO 20 mg BID KYLE Administration Fentanyl 50 mcg 03/02/21 04:16 03/03/21 12:00 Fentanyl 100 Mcg/2 Ml Inj IV 50 mcg Q10MIN PRN Administration ANALGESIA Heparin Sodium (Porcine) 5,200 unit 03/04/21 14:33 03/04/21 14:50 Heparin 10,000 Units/10 Ml Vial 40 unit/kg (5200 unit) 5,200 unit IV Administration Q6H PRN Anti-Xa Assay < 0.1 units/ml Hydrophilic Ointment 1 applic 03/02/21 15:42 Lip Therapy Vaseline TP Q2H PRN Dry Lips Fentanyl Citrate 2,000 mcg in 100 mls @ 6.55 mls/hr 03/01/21 21:30 03/06/21 06:13 Fentanyl Drip Premix IV 3 mcg/kg/hr TITR KYLE 19.65 mls/hr Administration Protocol 1 MCG/KG/HR Heparin Sodium/Sodium Chloride 25,000 unit in 500 mls @ 30 mls/hr 03/04/21 15:00 03/05/21 23:04 Heparin/ 0.45% Nacl-25,000 Unit/500 Ml IV 1,500 units/hr TITR KYLE 30 mls/hr Titration Protocol 1,500 UNITS/HR Magnesium Sulfate 4 gm in 100 mls @ 25 mls/hr 03/06/21 08:00 03/06/21 09:44 Magnesium Sulfate 4gm/100ml IV 03/06/21 11:59 25 mls/hr ONCE ONE Administration Insulin Glargine 5 units 03/03/21 22:00 03/05/21 21:34 Insulin Glargine 100 Units/Ml SUB-Q 5 units QHS KYLE Administration Insulin Human Lispro 0 unit 03/04/21 12:00 03/06/21 06:06 Insulin Lispro 100 Unit/Ml SUB-Q Not Given Q6HR [facility] Protocol Magnesium Hydroxide 30 ml 03/02/21 00:18 Magnesium Hydroxide (Mom) Oral Liqd Udc PO Q4H PRN Constipation Midodrine 10 mg 03/02/21 12:00 03/06/21 09:44 Midodrine 5 Mg Tab PO 10 mg TID@0800,1200,1600 KYLE Administration Multi-Ingred Cream/Lotion/Oil/Oint 1 applic 03/02/21 15:42 Mineral Oil/Petrolatum, White Ophth Oint 3.5 Gm OU Q4HR PRN Dry Eye(s) Multivitamins/Minerals 1 each 03/03/21 22:00 03/06/21 09:44 Calcium Carb/Vit D3/Minerals 600 Mg/800 Units Tab PO 1 each BID KYLE Administration Senna/Docusate Sodium 1 tab 03/02/21 22:00 03/06/21 09:44 Sennosides/Docusate Sodium 8.6/50 Mg Tab FEEDTUBE 1 tab BID KYLE Administration Simple Syrup 15 ml 03/03/21 10:53 Simple Syrup 15 Ml FEEDTUBE PRN PRN Hypoglycemia Simple Syrup 30 ml 03/03/21 10:53 Simple Syrup 15 Ml FEEDTUBE PRN PRN Hypoglycemia Sodium Bicarbonate 325 mg 03/03/21 10:53 Sodium Bicarbonate 325 Mg Tab FEEDTUBE PRN PRN For Clogged Feeding Tube Sodium Chloride 10 ml 03/02/21 10:00 03/06/21 09:45 Sodium Chloride 0.9% 10 Ml Flush Syringe IV 10 ml BID KYLE Administration Sodium Chloride 10 ml 03/02/21 00:18 Sodium Chloride 0.9% 10 Ml Flush Syringe IV PRN PRN LINE FLUSH
--- NOTE | 2021-03-06 10:30 | Progress Note ---
Assessment and Plan Acute hypoxemic respiratory failure NSTEMI Acute kidney injury Severe sepsis Bilateral pneumonia H/O congestive heart failure Diabetes type 2 Acute encephalopathy Elevated serum transaminases Anemia that is microcytic Leukocytosis Metabolic acidosis Lactic acidosis - 2 sets of blood cultures - follow COVID-19 test result - continue IV Heparin for VTE - 2D ECHO with mild impaired rel;axation; EF 55% and no pulm HTN - keep peep at 10 cm H2O - continue care as below otherwise; - continue Daily SAT and SBT assessment as tolerated - continue to wean supplemental oxygen for target O2 sat's > 90% acutely - VAP bundle addressed - continue lung protective strategies - continue bronchodilators with pulmonary hygiene per RT - wean per pulmonary driven protocols otherwise - continue accuchecks with glycemic control per SSI (While critically ill target blood glucose of 140-180 mg/dL; avoid hypoglycemia) - sedation prn for target RASS 0 to -1 - avoid nephrotoxins, renally dose all medications - continue to avoid benzodiazepine's, reduce the possibility of delirium - complete AB's per ID rec's (Vancomycin, Levaquin) - prn analgesia per CPOT score - Maintenance of sleep-wake cycle, avoid delirium - continue enteral nutritional support at goal rate as tolerated - G.I. & VTE prophylaxis - PT/OT/ROM exercises - continue mobility protocols for pressure ulcer prophylaxis - Monitor hemodynamics closely - continue other care per attending / other consultants - discharge planning ongoing concurrently COVID SPECIFIC INTERVENTIONS - follow test result - continue empiric contact and airborne isolation - Remdesivir as per ID/Pulmonary developed protocols - coneider systemic steroids for severe COVID-19 infection empirically - follow repeat COVID tests results - add zinc and vitamin C supplementation [id number] test positive - get & monitor inflammatory markers per facility protocol - ferritin, Ddimer, CRP (if test +ve) - therapeutic anticoagulation per system Protocol based on d-dimer and clinical considerations (On IV HEparin for VTE) .... Re-evaluate in am & prn CONDITION: CRITICAL PROGNOSIS: GUARDED CODE STATUS: FULL CODE The high probability of a clinically significant, sudden or life-threatening deterioration of the [respiratory, cardiovascular & neurologic] system(s) required my full and direct attention, intervention and personal management. The aggregate critical care time was [36] minutes without overlap. Time includes spent on; [x] Data Review and interpretation [x] Patient assessment and monitoring of vital signs [x] Documentation [x] Medication orders and management Subjective Date of service: 03/06/21 Principal diagnosis: Ac hypoxemic resp failure; NSTEMI; ALPHONSO; Sepsis; PNA; CHF; DM II; AMS Interval history: Patient is seen today for: Acute hypoxemic respiratory failure; NSTEMI; ALPHONSO; Severe sepsis; Pneumonia; CHF; DM II; Acute encephalopathy Seen and examined at bedside; 24hour events reviewed; nursing and respiratory care staff consulted; no adverse overnight events reported to me; resting peacefully in bed; had another fever spike and bnlood cultures drawn; remains on IV Heparin and no gross bleeding; COVID-19 test result pending Objective Vital Signs - 12hr 03/05/21 03/05/21 03/05/21 23:00 23:09 23:47 Temperature 100.2 F H Pulse Rate 84 82 Pulse Rate [ From Monitor] Respiratory 22 22 Rate Blood Pressure 119/54 119/54 O2 Sat by Pulse 98 100 Oximetry 03/06/21 03/06/21 03/06/21 00:00 00:07 01:00 Temperature Pulse Rate 80 79 108 H Pulse Rate [ 113 H From Monitor] Respiratory 22 21 Rate Blood Pressure 117/54 117/54 134/71 O2 Sat by Pulse 100 100 100 Oximetry 03/06/21 03/06/21 03/06/21 02:00 03:00 04:00 Temperature 99.8 F H Pulse Rate 102 H 93 H 101 H Pulse Rate [ 108 H From Monitor] Respiratory 22 22 22 Rate Blood Pressure 126/70 121/61 104/59 O2 Sat by Pulse 96 93 96 Oximetry 03/06/21 03/06/21 03/06/21 04:39 05:00 06:00 Temperature Pulse Rate 108 H 102 H 105 H Pulse Rate [ From Monitor] Respiratory 22 22 Rate Blood Pressure 104/59 105/53 119/59 O2 Sat by Pulse 97 96 96 Oximetry 03/06/21 03/06/21 03/06/21 07:00 07:21 07:51 Temperature 100.7 F H Pulse Rate 97 H 105 H Pulse Rate [ From Monitor] Respiratory 16 Rate Blood Pressure 91/56 91/56 O2 Sat by Pulse 96 97 Oximetry 03/06/21 03/06/21 03/06/21 08:00 09:00 10:00 Temperature Pulse Rate 102 H 103 H 106 H Pulse Rate [ From Monitor] Respiratory 22 22 22 Rate Blood Pressure 106/62 106/52 109/53 O2 Sat by Pulse 97 98 98 Oximetry Constitutional: no acute distress, other (middle aged obese male without significant ventiulator dyssynchrony) Eyes: non-icteric ENT: oropharynx moist, other (ETT 24 cm CLINT) Neck: supple, no lymphadenopathy, no JVD, other (large circumference) Effort: mildly labored Ascultation: Bilateral: diminished breath sounds, rhonchi Percussion: Bilateral: not dull Cardiovascular: regular rate and rhythm Gastrointestinal: normoactive bowel sounds, soft, non-tender, non-distended (protuberant) Integumentary: normal Extremities: no cyanosis, pulses normal, no ischemia or petechiae, edema (trace) Neurologic: non-focal exam (grossly), pupils equal and round, CN II-XII normal, motor strength normal and Psychiatric: other (sedated) CBC and BMP: 03/07/21 08:16 03/07/21 08:16 ABG, PT/INR, D-dimer: ABG ABG pH 7.426 (7.320-7.450) 03/06/21 03:30 POC ABG pCO2 49.7 mmHg (32.0-48.0) H 03/06/21 03:30 POC ABG pO2 65.1 mmHg (83-108) L 03/06/21 03:30 POC ABG HCO3 32.0 03/06/21 03:30 ABG O2 Saturation 90.9 (0-100) 03/06/21 03:30 PT/INR, D-dimer PT 15.6 Sec. (12.2-14.9) H 03/04/21 10:17 INR 1.18 (0.87-1.13) H 03/04/21 10:17 Abnormal lab findings: Abnormal Labs 03/01/21 03/01/21 03/01/21 19:15 19:21 19:21 WBC 12.7 H RBC 2.77 L Hgb 9.1 L Hct 27.7 L MCV 100 H MCH 33 H RDW 18.0 H Seg Neutrophils % Monocytes % (Manual) 17.0 H Seg Neutrophils # Monocytes # (Manual) 2.2 H PT INR Heparin Anti-Xa Level ABG pH POC ABG pCO2 POC ABG pO2 64.9 L ABG Hemoglobin 9.3 L ABG Oxyhemoglobin 93.0 L ABG Sodium 133.8 L ABG Potassium ABG Chloride 97.0 L ABG Glucose 191 H Carboxyhemoglobin Sodium Chloride Carbon Dioxide BUN Creatinine Glucose POC Glucose Lactic Acid Calcium Phosphorus Magnesium Total Bilirubin Direct Bilirubin AST ALT Alkaline Phosphatase Ammonia Troponin T 0.493 H* C-Reactive Protein Total Protein Albumin Triglycerides 400 H Cholesterol 232 H HDL Cholesterol 22 L Lipase Arterial Blood Glucose 191 H Arterial Blood Ionized Calcium 4.4 L Salicylates Acetaminophen 03/01/21 03/01/21 03/01/21 19:21 19:21 19:21 WBC RBC Hgb Hct MCV MCH RDW Seg Neutrophils % Monocytes % (Manual) Seg Neutrophils # Monocytes # (Manual) PT 16.6 H INR 1.28 H Heparin Anti-Xa Level ABG pH POC ABG pCO2 POC ABG pO2 ABG Hemoglobin ABG Oxyhemoglobin ABG Sodium ABG Potassium ABG Chloride ABG Glucose Carboxyhemoglobin Sodium 132 L Chloride 92.2 L Carbon Dioxide BUN 43 H Creatinine 2.4 H Glucose 190 H POC Glucose Lactic Acid 2.90 H* Calcium Phosphorus Magnesium Total Bilirubin 1.60 H Direct Bilirubin 1.2 H AST 275 H ALT 156 H Alkaline Phosphatase 282 H Ammonia Troponin T C-Reactive Protein Total Protein 5.8 L Albumin 2.6 L Triglycerides Cholesterol HDL Cholesterol Lipase 120 H Arterial Blood Glucose Arterial Blood Ionized Calcium Salicylates Acetaminophen 03/01/21 03/01/21 03/01/21 19:21 19:21 19:21 WBC RBC Hgb Hct MCV MCH RDW Seg Neutrophils % Monocytes % (Manual) Seg Neutrophils # Monocytes # (Manual) PT INR Heparin Anti-Xa Level ABG pH POC ABG pCO2 POC ABG pO2 ABG Hemoglobin ABG Oxyhemoglobin ABG Sodium ABG Potassium ABG Chloride ABG Glucose Carboxyhemoglobin Sodium Chloride Carbon Dioxide BUN Creatinine Glucose POC Glucose Lactic Acid Calcium Phosphorus Magnesium Total Bilirubin Direct Bilirubin AST ALT Alkaline Phosphatase Ammonia 71.0 H Troponin T C-Reactive Protein Total Protein Albumin Triglycerides Cholesterol HDL Cholesterol Lipase Arterial Blood Glucose Arterial Blood Ionized Calcium Salicylates < 0.3 L Acetaminophen 5.0 L 03/01/21 03/01/21 03/02/21 20:55 20:55 00:01 WBC RBC Hgb Hct MCV MCH RDW Seg Neutrophils % Monocytes % (Manual) Seg Neutrophils # Monocytes # (Manual) PT INR Heparin Anti-Xa Level ABG pH 7.234 L POC ABG pCO2 POC ABG pO2 240.5 H ABG Hemoglobin 9.3 L ABG Oxyhemoglobin 99.1 H ABG Sodium 135.3 L ABG Potassium ABG Chloride ABG Glucose 286 H Carboxyhemoglobin 0.3 L Sodium Chloride Carbon Dioxide BUN Creatinine Glucose POC Glucose Lactic Acid 4.30 H* Calcium Phosphorus Magnesium Total Bilirubin Direct Bilirubin AST ALT Alkaline Phosphatase Ammonia Troponin T 0.484 H* C-Reactive Protein Total Protein Albumin Triglycerides Cholesterol HDL Cholesterol Lipase Arterial Blood Glucose 286 H Arterial Blood Ionized Calcium Salicylates Acetaminophen 03/02/21 03/02/21 03/02/21 03:42 05:23 06:35 WBC RBC Hgb Hct MCV MCH RDW Seg Neutrophils % Monocytes % (Manual) Seg Neutrophils # Monocytes # (Manual) PT INR Heparin Anti-Xa Level ABG pH 7.225 L POC ABG pCO2 POC ABG pO2 181.8 H ABG Hemoglobin 9.4 L ABG Oxyhemoglobin 98.6 H ABG Sodium 132.1 L ABG Potassium 5.0 H ABG Chloride ABG Glucose 454 H Carboxyhemoglobin 0.3 L Sodium Chloride Carbon Dioxide BUN Creatinine Glucose POC Glucose 410 H Lactic Acid 7.50 H* Calcium Phosphorus Magnesium Total Bilirubin Direct Bilirubin AST ALT Alkaline Phosphatase Ammonia Troponin T C-Reactive Protein Total Protein Albumin Triglycerides Cholesterol HDL Cholesterol Lipase Arterial Blood Glucose 454 H Arterial Blood Ionized Calcium 4.2 L Salicylates Acetaminophen 03/02/21 03/02/21 03/02/21 10:48 10:48 10:48 WBC RBC Hgb Hct MCV MCH RDW Seg Neutrophils % Monocytes % (Manual) Seg Neutrophils # Monocytes # (Manual) PT INR Heparin Anti-Xa Level ABG pH POC ABG pCO2 POC ABG pO2 ABG Hemoglobin ABG Oxyhemoglobin ABG Sodium ABG Potassium ABG Chloride ABG Glucose Carboxyhemoglobin Sodium 132 L Chloride 93.3 L Carbon Dioxide 20 L BUN 46 H Creatinine 1.9 H Glucose 503 H* POC Glucose Lactic Acid 3.40 H* Calcium 7.9 L Phosphorus 5.80 H Magnesium Total Bilirubin Direct Bilirubin AST ALT Alkaline Phosphatase Ammonia Troponin T C-Reactive Protein Total Protein Albumin Triglycerides Cholesterol HDL Cholesterol Lipase Arterial Blood Glucose Arterial Blood Ionized Calcium Salicylates Acetaminophen 03/02/21 03/02/21 03/02/21 11:23 11:38 15:33 WBC RBC Hgb Hct MCV MCH RDW Seg Neutrophils % Monocytes % (Manual) Seg Neutrophils # Monocytes # (Manual) PT INR Heparin Anti-Xa Level ABG pH 7.318 L POC ABG pCO2 POC ABG pO2 ABG Hemoglobin 9.2 L ABG Oxyhemoglobin ABG Sodium 133.2 L ABG Potassium ABG Chloride ABG Glucose 504 H Carboxyhemoglobin 0.3 L Sodium Chloride Carbon Dioxide BUN Creatinine Glucose POC Glucose 468 H 445 H Lactic Acid Calcium Phosphorus Magnesium Total Bilirubin Direct Bilirubin AST ALT Alkaline Phosphatase Ammonia Troponin T C-Reactive Protein Total Protein Albumin Triglycerides Cholesterol HDL Cholesterol Lipase Arterial Blood Glucose 504 H Arterial Blood Ionized Calcium 4.2 L Salicylates Acetaminophen 03/02/21 03/02/21 03/02/21 16:28 16:28 16:28 WBC RBC Hgb 8.8 L Hct 26.0 L MCV MCH RDW Seg Neutrophils % Monocytes % (Manual) Seg Neutrophils # Monocytes # (Manual) PT 15.2 H INR 1.14 H Heparin Anti-Xa Level ABG pH POC ABG pCO2 POC ABG pO2 ABG Hemoglobin ABG Oxyhemoglobin ABG Sodium ABG Potassium ABG Chloride ABG Glucose Carboxyhemoglobin Sodium 135 L Chloride 93.8 L Carbon Dioxide BUN 48 H Creatinine 1.8 H Glucose 454 H POC Glucose Lactic Acid Calcium 7.6 L Phosphorus Magnesium Total Bilirubin Direct Bilirubin AST ALT Alkaline Phosphatase Ammonia Troponin T C-Reactive Protein Total Protein Albumin Triglycerides Cholesterol HDL Cholesterol Lipase Arterial Blood Glucose Arterial Blood Ionized Calcium Salicylates Acetaminophen 03/02/21 03/02/21 03/02/21 17:39 18:52 20:09 WBC RBC Hgb Hct MCV MCH RDW Seg Neutrophils % Monocytes % (Manual) Seg Neutrophils # Monocytes # (Manual) PT INR Heparin Anti-Xa Level ABG pH POC ABG pCO2 POC ABG pO2 ABG Hemoglobin ABG Oxyhemoglobin ABG Sodium ABG Potassium ABG Chloride ABG Glucose Carboxyhemoglobin Sodium Chloride Carbon Dioxide BUN Creatinine Glucose POC Glucose 404 H 357 H 347 H Lactic Acid Calcium Phosphorus Magnesium Total Bilirubin Direct Bilirubin AST ALT Alkaline Phosphatase Ammonia Troponin T C-Reactive Protein Total Protein Albumin Triglycerides Cholesterol HDL Cholesterol Lipase Arterial Blood Glucose Arterial Blood Ionized Calcium Salicylates Acetaminophen 03/02/21 03/02/21 03/02/21 21:03 22:00 22:55 WBC RBC Hgb Hct MCV MCH RDW Seg Neutrophils % Monocytes % (Manual) Seg Neutrophils # Monocytes # (Manual) PT INR Heparin Anti-Xa Level ABG pH POC ABG pCO2 POC ABG pO2 ABG Hemoglobin ABG Oxyhemoglobin ABG Sodium ABG Potassium ABG Chloride ABG Glucose Carboxyhemoglobin Sodium Chloride Carbon Dioxide BUN Creatinine Glucose POC Glucose 307 H 270 H 237 H Lactic Acid Calcium Phosphorus Magnesium Total Bilirubin Direct Bilirubin AST ALT Alkaline Phosphatase Ammonia Troponin T C-Reactive Protein Total Protein Albumin Triglycerides Cholesterol HDL Cholesterol Lipase Arterial Blood Glucose Arterial Blood Ionized Calcium Salicylates Acetaminophen 03/03/21 03/03/21 03/03/21 00:02 00:57 02:01 WBC RBC Hgb Hct MCV MCH RDW Seg Neutrophils % Monocytes % (Manual) Seg Neutrophils # Monocytes # (Manual) PT INR Heparin Anti-Xa Level ABG pH POC ABG pCO2 POC ABG pO2 ABG Hemoglobin ABG Oxyhemoglobin ABG Sodium ABG Potassium ABG Chloride ABG Glucose Carboxyhemoglobin Sodium Chloride Carbon Dioxide BUN Creatinine Glucose POC Glucose 252 H 214 H 261 H Lactic Acid Calcium Phosphorus Magnesium Total Bilirubin Direct Bilirubin AST ALT Alkaline Phosphatase Ammonia Troponin T C-Reactive Protein Total Protein Albumin Triglycerides Cholesterol HDL Cholesterol Lipase Arterial Blood Glucose Arterial Blood Ionized Calcium Salicylates Acetaminophen 03/03/21 03/03/21 03/03/21 03:07 03:10 03:50 WBC 13.7 H RBC 2.69 L Hgb 8.7 L Hct 26.9 L MCV 100 H MCH RDW 18.5 H Seg Neutrophils % 79.0 H Monocytes % (Manual) Seg Neutrophils # 10.8 H Monocytes # (Manual) PT INR Heparin Anti-Xa Level ABG pH POC ABG pCO2 50.9 H POC ABG pO2 81.9 L ABG Hemoglobin 8.7 L ABG Oxyhemoglobin ABG Sodium 134.2 L ABG Potassium ABG Chloride 96.0 L ABG Glucose 279 H Carboxyhemoglobin 0.4 L Sodium Chloride Carbon Dioxide BUN Creatinine Glucose POC Glucose 276 H Lactic Acid Calcium Phosphorus Magnesium Total Bilirubin Direct Bilirubin AST ALT Alkaline Phosphatase Ammonia Troponin T C-Reactive Protein Total Protein Albumin Triglycerides Cholesterol HDL Cholesterol Lipase Arterial Blood Glucose 279 H Arterial Blood Ionized Calcium 3.9 L Salicylates Acetaminophen 03/03/21 03/03/21 03/03/21 03:50 04:06 04:32 WBC RBC Hgb Hct MCV MCH RDW Seg Neutrophils % Monocytes % (Manual) Seg Neutrophils # Monocytes # (Manual) PT INR Heparin Anti-Xa Level ABG pH POC ABG pCO2 POC ABG pO2 ABG Hemoglobin ABG Oxyhemoglobin ABG Sodium ABG Potassium ABG Chloride ABG Glucose Carboxyhemoglobin Sodium Chloride 94.2 L Carbon Dioxide BUN 45 H Creatinine 1.9 H Glucose 261 H POC Glucose 256 H Lactic Acid Calcium 7.3 L Phosphorus Magnesium Total Bilirubin Direct Bilirubin 0.9 H AST 208 H ALT 148 H Alkaline Phosphatase 251 H Ammonia Troponin T C-Reactive Protein Total Protein 5.5 L Albumin 2.4 L Triglycerides Cholesterol HDL Cholesterol Lipase Arterial Blood Glucose Arterial Blood Ionized Calcium Salicylates Acetaminophen 03/03/21 03/03/21 03/03/21 05:23 06:06 07:07 WBC RBC Hgb Hct MCV MCH RDW Seg Neutrophils % Monocytes % (Manual) Seg Neutrophils # Monocytes # (Manual) PT INR Heparin Anti-Xa Level ABG pH POC ABG pCO2 POC ABG pO2 ABG Hemoglobin ABG Oxyhemoglobin ABG Sodium ABG Potassium ABG Chloride ABG Glucose Carboxyhemoglobin Sodium Chloride Carbon Dioxide BUN Creatinine Glucose POC Glucose 214 H 249 H 237 H Lactic Acid Calcium Phosphorus Magnesium Total Bilirubin Direct Bilirubin AST ALT Alkaline Phosphatase Ammonia Troponin T C-Reactive Protein Total Protein Albumin Triglycerides Cholesterol HDL Cholesterol Lipase Arterial Blood Glucose Arterial Blood Ionized Calcium Salicylates Acetaminophen 03/03/21 03/03/21 03/03/21 07:58 08:58 09:52 WBC RBC Hgb Hct MCV MCH RDW Seg Neutrophils % Monocytes % (Manual) Seg Neutrophils # Monocytes # (Manual) PT INR Heparin Anti-Xa Level ABG pH POC ABG pCO2 POC ABG pO2 ABG Hemoglobin ABG Oxyhemoglobin ABG Sodium ABG Potassium ABG Chloride ABG Glucose Carboxyhemoglobin Sodium Chloride Carbon Dioxide BUN Creatinine Glucose POC Glucose 227 H 215 H 207 H Lactic Acid Calcium Phosphorus Magnesium Total Bilirubin Direct Bilirubin AST ALT Alkaline Phosphatase Ammonia Troponin T C-Reactive Protein Total Protein Albumin Triglycerides Cholesterol HDL Cholesterol Lipase Arterial Blood Glucose Arterial Blood Ionized Calcium Salicylates Acetaminophen 03/03/21 03/03/21 03/03/21 10:55 11:44 12:53 WBC RBC Hgb Hct MCV MCH RDW Seg Neutrophils % Monocytes % (Manual) Seg Neutrophils # Monocytes # (Manual) PT INR Heparin Anti-Xa Level ABG pH POC ABG pCO2 POC ABG pO2 ABG Hemoglobin ABG Oxyhemoglobin ABG Sodium ABG Potassium ABG Chloride ABG Glucose Carboxyhemoglobin Sodium Chloride Carbon Dioxide BUN Creatinine Glucose POC Glucose 198 H 210 H 203 H Lactic Acid Calcium Phosphorus Magnesium Total Bilirubin Direct Bilirubin AST ALT Alkaline Phosphatase Ammonia Troponin T C-Reactive Protein Total Protein Albumin Triglycerides Cholesterol HDL Cholesterol Lipase Arterial Blood Glucose Arterial Blood Ionized Calcium Salicylates Acetaminophen 03/03/21 03/03/21 03/03/21 13:53 14:58 15:23 WBC RBC Hgb Hct MCV MCH RDW Seg Neutrophils % Monocytes % (Manual) Seg Neutrophils # Monocytes # (Manual) PT INR Heparin Anti-Xa Level ABG pH POC ABG pCO2 POC ABG pO2 ABG Hemoglobin ABG Oxyhemoglobin ABG Sodium ABG Potassium ABG Chloride ABG Glucose Carboxyhemoglobin Sodium Chloride Carbon Dioxide BUN Creatinine Glucose POC Glucose 210 H 187 H Lactic Acid 3.10 H* Calcium Phosphorus Magnesium Total Bilirubin Direct Bilirubin AST ALT Alkaline Phosphatase Ammonia Troponin T C-Reactive Protein Total Protein Albumin Triglycerides Cholesterol HDL Cholesterol Lipase Arterial Blood Glucose Arterial Blood Ionized Calcium Salicylates Acetaminophen 03/03/21 03/03/21 03/03/21 15:51 16:25 16:53 WBC RBC Hgb Hct MCV MCH RDW Seg Neutrophils % Monocytes % (Manual) Seg Neutrophils # Monocytes # (Manual) PT INR Heparin Anti-Xa Level ABG pH POC ABG pCO2 POC ABG pO2 ABG Hemoglobin ABG Oxyhemoglobin ABG Sodium ABG Potassium ABG Chloride ABG Glucose Carboxyhemoglobin Sodium Chloride 91.0 L Carbon Dioxide 34 H BUN 47 H Creatinine 1.7 H Glucose 190 H POC Glucose 182 H 179 H Lactic Acid Calcium 7.6 L Phosphorus Magnesium Total Bilirubin Direct Bilirubin AST ALT Alkaline Phosphatase Ammonia Troponin T C-Reactive Protein Total Protein Albumin Triglycerides Cholesterol HDL Cholesterol Lipase Arterial Blood Glucose Arterial Blood Ionized Calcium Salicylates Acetaminophen 03/03/21 03/03/21 03/03/21 17:55 19:37 20:57 WBC RBC Hgb Hct MCV MCH RDW Seg Neutrophils % Monocytes % (Manual) Seg Neutrophils # Monocytes # (Manual) PT INR Heparin Anti-Xa Level ABG pH POC ABG pCO2 POC ABG pO2 ABG Hemoglobin ABG Oxyhemoglobin ABG Sodium ABG Potassium ABG Chloride ABG Glucose Carboxyhemoglobin Sodium Chloride Carbon Dioxide BUN Creatinine Glucose POC Glucose 185 H 174 H 175 H Lactic Acid Calcium Phosphorus Magnesium Total Bilirubin Direct Bilirubin AST ALT Alkaline Phosphatase Ammonia Troponin T C-Reactive Protein Total Protein Albumin Triglycerides Cholesterol HDL Cholesterol Lipase Arterial Blood Glucose Arterial Blood Ionized Calcium Salicylates Acetaminophen 03/03/21 03/03/21 03/03/21 22:02 22:56 23:10 WBC RBC Hgb Hct MCV MCH RDW Seg Neutrophils % Monocytes % (Manual) Seg Neutrophils # Monocytes # (Manual) PT INR Heparin Anti-Xa Level 0.75 H ABG pH POC ABG pCO2 POC ABG pO2 ABG Hemoglobin ABG Oxyhemoglobin ABG Sodium ABG Potassium ABG Chloride ABG Glucose Carboxyhemoglobin Sodium Chloride Carbon Dioxide BUN Creatinine Glucose POC Glucose 170 H 160 H Lactic Acid Calcium Phosphorus Magnesium Total Bilirubin Direct Bilirubin AST ALT Alkaline Phosphatase Ammonia Troponin T C-Reactive Protein Total Protein Albumin Triglycerides Cholesterol HDL Cholesterol Lipase Arterial Blood Glucose Arterial Blood Ionized Calcium Salicylates Acetaminophen 03/03/21 03/04/21 03/04/21 23:42 00:52 01:55 WBC RBC Hgb Hct MCV MCH RDW Seg Neutrophils % Monocytes % (Manual) Seg Neutrophils # Monocytes # (Manual) PT INR Heparin Anti-Xa Level ABG pH POC ABG pCO2 POC ABG pO2 ABG Hemoglobin ABG Oxyhemoglobin ABG Sodium ABG Potassium ABG Chloride ABG Glucose Carboxyhemoglobin Sodium Chloride Carbon Dioxide BUN Creatinine Glucose POC Glucose 161 H 167 H 119 H Lactic Acid Calcium Phosphorus Magnesium Total Bilirubin Direct Bilirubin AST ALT Alkaline Phosphatase Ammonia Troponin T C-Reactive Protein Total Protein Albumin Triglycerides Cholesterol HDL Cholesterol Lipase Arterial Blood Glucose Arterial Blood Ionized Calcium Salicylates Acetaminophen 03/04/21 03/04/21 03/04/21 02:58 03:47 04:03 WBC RBC Hgb Hct MCV MCH RDW Seg Neutrophils % Monocytes % (Manual) Seg Neutrophils # Monocytes # (Manual) PT INR Heparin Anti-Xa Level ABG pH POC ABG pCO2 57.3 H POC ABG pO2 63.7 L ABG Hemoglobin 8.4 L ABG Oxyhemoglobin 88.6 L ABG Sodium 132.5 L ABG Potassium 3.2 L ABG Chloride 94.0 L ABG Glucose 129 H Carboxyhemoglobin Sodium Chloride Carbon Dioxide BUN Creatinine Glucose POC Glucose 111 H 122 H Lactic Acid Calcium Phosphorus Magnesium Total Bilirubin Direct Bilirubin AST ALT Alkaline Phosphatase Ammonia Troponin T C-Reactive Protein Total Protein Albumin Triglycerides Cholesterol HDL Cholesterol Lipase Arterial Blood Glucose 129 H Arterial Blood Ionized Calcium 3.8 L Salicylates Acetaminophen 03/04/21 03/04/21 03/04/21 05:15 05:26 05:26 WBC RBC Hgb 7.9 L Hct 23.7 L MCV MCH RDW Seg Neutrophils % Monocytes % (Manual) Seg Neutrophils # Monocytes # (Manual) PT INR Heparin Anti-Xa Level ABG pH POC ABG pCO2 POC ABG pO2 ABG Hemoglobin ABG Oxyhemoglobin ABG Sodium ABG Potassium ABG Chloride ABG Glucose Carboxyhemoglobin Sodium Chloride Carbon Dioxide BUN Creatinine Glucose POC Glucose 127 H Lactic Acid Calcium Phosphorus Magnesium Total Bilirubin Direct Bilirubin 0.6 H AST 123 H ALT 105 H Alkaline Phosphatase 232 H Ammonia Troponin T C-Reactive Protein Total Protein 4.8 L Albumin 2.2 L Triglycerides Cholesterol HDL Cholesterol Lipase Arterial Blood Glucose Arterial Blood Ionized Calcium Salicylates Acetaminophen 03/04/21 03/04/21 03/04/21 05:26 06:01 06:53 WBC RBC Hgb Hct MCV MCH RDW Seg Neutrophils % Monocytes % (Manual) Seg Neutrophils # Monocytes # (Manual) PT INR Heparin Anti-Xa Level 0.71 H ABG pH POC ABG pCO2 POC ABG pO2 ABG Hemoglobin ABG Oxyhemoglobin ABG Sodium ABG Potassium ABG Chloride ABG Glucose Carboxyhemoglobin Sodium Chloride Carbon Dioxide BUN Creatinine Glucose POC Glucose 120 H 117 H Lactic Acid Calcium Phosphorus Magnesium Total Bilirubin Direct Bilirubin AST ALT Alkaline Phosphatase Ammonia Troponin T C-Reactive Protein Total Protein Albumin Triglycerides Cholesterol HDL Cholesterol Lipase Arterial Blood Glucose Arterial Blood Ionized Calcium Salicylates Acetaminophen 03/04/21 03/04/21 03/04/21 07:57 10:17 10:17 WBC RBC 2.51 L Hgb 8.3 L Hct 25.3 L MCV 101 H MCH 33 H RDW 18.5 H Seg Neutrophils % Monocytes % (Manual) Seg Neutrophils # Monocytes # (Manual) PT INR Heparin Anti-Xa Level ABG pH POC ABG pCO2 POC ABG pO2 ABG Hemoglobin ABG Oxyhemoglobin ABG Sodium ABG Potassium ABG Chloride ABG Glucose Carboxyhemoglobin Sodium 136 L Chloride 93.1 L Carbon Dioxide 33 H BUN 46 H Creatinine 1.4 H Glucose 151 H POC Glucose 129 H Lactic Acid Calcium 7.5 L Phosphorus Magnesium Total Bilirubin Direct Bilirubin AST 126 H ALT 100 H Alkaline Phosphatase 226 H Ammonia Troponin T C-Reactive Protein Total Protein 5.0 L Albumin 2.2 L Triglycerides Cholesterol HDL Cholesterol Lipase Arterial Blood Glucose Arterial Blood Ionized Calcium Salicylates Acetaminophen 03/04/21 03/04/21 03/04/21 10:17 10:17 11:26 WBC RBC Hgb Hct MCV MCH RDW Seg Neutrophils % Monocytes % (Manual) Seg Neutrophils # Monocytes # (Manual) PT 15.6 H INR 1.18 H Heparin Anti-Xa Level ABG pH POC ABG pCO2 POC ABG pO2 ABG Hemoglobin ABG Oxyhemoglobin ABG Sodium ABG Potassium ABG Chloride ABG Glucose Carboxyhemoglobin Sodium Chloride Carbon Dioxide BUN Creatinine Glucose POC Glucose 167 H Lactic Acid Calcium Phosphorus Magnesium Total Bilirubin Direct Bilirubin AST ALT Alkaline Phosphatase Ammonia Troponin T C-Reactive Protein Total Protein Albumin Triglycerides Cholesterol HDL Cholesterol Lipase 78 H Arterial Blood Glucose Arterial Blood Ionized Calcium Salicylates Acetaminophen 03/04/21 03/04/21 03/04/21 13:04 16:26 17:58 WBC RBC Hgb 7.7 L Hct 23.2 L MCV MCH RDW Seg Neutrophils % Monocytes % (Manual) Seg Neutrophils # Monocytes # (Manual) PT INR Heparin Anti-Xa Level < 0.10 L ABG pH POC ABG pCO2 POC ABG pO2 ABG Hemoglobin ABG Oxyhemoglobin ABG Sodium ABG Potassium ABG Chloride ABG Glucose Carboxyhemoglobin Sodium Chloride Carbon Dioxide BUN Creatinine Glucose POC Glucose 167 H Lactic Acid Calcium Phosphorus Magnesium Total Bilirubin Direct Bilirubin AST ALT Alkaline Phosphatase Ammonia Troponin T C-Reactive Protein Total Protein Albumin Triglycerides Cholesterol HDL Cholesterol Lipase Arterial Blood Glucose Arterial Blood Ionized Calcium Salicylates Acetaminophen 03/04/21 03/05/21 03/05/21 23:47 04:00 05:06 WBC RBC Hgb Hct MCV MCH RDW Seg Neutrophils % Monocytes % (Manual) Seg Neutrophils # Monocytes # (Manual) PT INR Heparin Anti-Xa Level ABG pH POC ABG pCO2 POC ABG pO2 129.1 H ABG Hemoglobin 8.3 L ABG Oxyhemoglobin ABG Sodium 131.4 L ABG Potassium ABG Chloride 95.0 L ABG Glucose 153 H Carboxyhemoglobin Sodium Chloride Carbon Dioxide BUN Creatinine Glucose POC Glucose 153 H 139 H Lactic Acid Calcium Phosphorus Magnesium Total Bilirubin Direct Bilirubin AST ALT Alkaline Phosphatase Ammonia Troponin T C-Reactive Protein Total Protein Albumin Triglycerides Cholesterol HDL Cholesterol Lipase Arterial Blood Glucose 153 H Arterial Blood Ionized Calcium Salicylates Acetaminophen 03/05/21 03/05/21 03/05/21 11:43 13:35 13:35 WBC RBC 2.38 L Hgb 7.8 L Hct 23.8 L MCV 100 H MCH 33 H RDW 18.2 H Seg Neutrophils % Monocytes % (Manual) Seg Neutrophils # Monocytes # (Manual) PT INR Heparin Anti-Xa Level ABG pH POC ABG pCO2 POC ABG pO2 ABG Hemoglobin ABG Oxyhemoglobin ABG Sodium ABG Potassium ABG Chloride ABG Glucose Carboxyhemoglobin Sodium Chloride 94.4 L Carbon Dioxide BUN 49 H Creatinine 1.6 H Glucose 165 H POC Glucose 174 H Lactic Acid Calcium 7.5 L Phosphorus Magnesium Total Bilirubin Direct Bilirubin AST ALT Alkaline Phosphatase Ammonia Troponin T C-Reactive Protein Total Protein Albumin Triglycerides Cholesterol HDL Cholesterol Lipase Arterial Blood Glucose Arterial Blood Ionized Calcium Salicylates Acetaminophen 03/05/21 03/05/21 03/06/21 17:57 21:27 03:30 WBC RBC Hgb Hct MCV MCH RDW Seg Neutrophils % Monocytes % (Manual) Seg Neutrophils # Monocytes # (Manual) PT INR Heparin Anti-Xa Level ABG pH POC ABG pCO2 49.7 H POC ABG pO2 65.1 L ABG Hemoglobin 9.1 L ABG Oxyhemoglobin 90.2 L ABG Sodium 131.2 L ABG Potassium ABG Chloride 96.0 L ABG Glucose 133 H Carboxyhemoglobin Sodium Chloride Carbon Dioxide BUN Creatinine Glucose POC Glucose 129 H 129 H Lactic Acid Calcium Phosphorus Magnesium Total Bilirubin Direct Bilirubin AST ALT Alkaline Phosphatase Ammonia Troponin T C-Reactive Protein Total Protein Albumin Triglycerides Cholesterol HDL Cholesterol Lipase Arterial Blood Glucose 133 H Arterial Blood Ionized Calcium 4.2 L Salicylates Acetaminophen 03/06/21 03/06/21 03/06/21 04:30 05:20 05:20 WBC 15.2 H RBC 2.48 L Hgb 8.2 L Hct 24.9 L MCV 100 H MCH 33 H RDW 18.6 H Seg Neutrophils % 72.6 H Monocytes % (Manual) Seg Neutrophils # 11.1 H Monocytes # (Manual) PT INR Heparin Anti-Xa Level ABG pH POC ABG pCO2 POC ABG pO2 ABG Hemoglobin ABG Oxyhemoglobin ABG Sodium ABG Potassium ABG Chloride ABG Glucose Carboxyhemoglobin Sodium 135 L Chloride 94.5 L Carbon Dioxide BUN 49 H Creatinine Glucose 121 H POC Glucose Lactic Acid Calcium 7.3 L Phosphorus Magnesium 1.50 L Total Bilirubin Direct Bilirubin AST 120 H ALT 74 H Alkaline Phosphatase 306 H Ammonia Troponin T C-Reactive Protein 27.90 H Total Protein 4.5 L Albumin 2.0 L Triglycerides Cholesterol HDL Cholesterol Lipase Arterial Blood Glucose Arterial Blood Ionized Calcium Salicylates Acetaminophen 03/06/21 05:30 WBC RBC Hgb Hct MCV MCH RDW Seg Neutrophils % Monocytes % (Manual) Seg Neutrophils # Monocytes # (Manual) PT INR Heparin Anti-Xa Level ABG pH POC ABG pCO2 POC ABG pO2 ABG Hemoglobin ABG Oxyhemoglobin ABG Sodium ABG Potassium ABG Chloride ABG Glucose Carboxyhemoglobin Sodium Chloride Carbon Dioxide BUN Creatinine Glucose POC Glucose 123 H Lactic Acid Calcium Phosphorus Magnesium Total Bilirubin Direct Bilirubin AST ALT Alkaline Phosphatase Ammonia Troponin T C-Reactive Protein Total Protein Albumin Triglycerides Cholesterol HDL Cholesterol Lipase Arterial Blood Glucose Arterial Blood Ionized Calcium Salicylates Acetaminophen Chest x-ray: other (none today) Allied health notes reviewed: nursing
--- NOTE | 2021-03-06 12:27 | Progress Note ---
<JAVIERCHAVO CorralGauri - Last Filed: 03/06/21 14:15> Assessment and Plan Assessment and plan: This is a a 51 year old male admitted for for severe sepsis, respiratory failure, pneumonia and ALPHONSO. PMH: COPD, CHF, DM, DVT/PE, HTN, KAM, obesity, asthma PSx: none reported home meds: albuterol sulfate, advair, HCTZ, atrovent, glucophage, Klor-Con, midodrine, metoprolol, lasix, lantus, coumadin (from audit and home meds reconciliation) Social: unknown A/P Neuro: Metabolic encephalopathy -sedated with fentanyl -RASS goal 0 to -1 -Avoid delirium -Reorientation as needed -Aspiration/fall precautions -B wrist restraints for safety Cardio: SR-ST: Acute on Chronic HFpEF (per cards), NSTEMI, HTN, HLD -Cardiology consulted, appreciate recommendations -ASA, midodrine -BP monitoring per protocol -Echo pending; per cardio he had one recently at OSH-records requested -Hold antihtn meds for now -Prolong QTc; QT prolonging meds DC -Per cardiology, gentle IV diuresis 03/05 Resp: Acute on chronic hypoxic respiratory failure, Bilateral PNA, hx COPD, KAM, asthma, ?PE -CCM consulted, appreciate recommendations -MV, wean as tolerated -Intubated 03/01 with 8.0 OETT at 22@lip -Vent settings: AC TV 500, PEEP 10, Rate 22, on 65% FiO2 -Serial CXR and ABG -VAP bundle -Continuos SPO2 monitoring -abx with levaquin (03/02-03/07)-DC 03/05 r/t prolonged QTc -03/01 CT chest shows several pulmonary nodules within Right lung measuring 6-8 mm, increased interstitial prominence -03/06 CXR reviewed GI: Transaminitis, TF -GI consulted, appreciate recommendations -Trend LFTs -RUQ US shows no evidence of cholelithiasis, cholecytitis or choledocholithisis -CT abd/pelvis shows fatty infiltration of liver -Ntr consult for TF -PPI -BR [place] -24 hr net (+) [id number] : ALPHONSO, hyponatremia, hypokalemia, hypochloremia, hypomagnesemia -Nephrology consulted, appreciate recommendations -Pt was on HD at recent hospitalization at OSH -Penally dose mediations -Avoid nephrotoxic medications -Strict I&Os -Renal US shows no significant abnormality -Daily weights -Replete electrolytes -Trend BMP Heme: DVT-R posterior tibial vein, h/x LLE DVT (December 2019)/ PE (failed Xa inhibitors per cards; on home coumadin) -evidenced on BLE Doppler US -Heparin gtt -SCDs while in bed -Per cards: Eventually plan to transition to Coumadin ID: Severe Sepsis, B PNA, COVID 19 infection -s/p abx therapy (azithromycin 03/01-03/02, aztreonam 03/02, cefepime 03/01-03/02, levaquin 03/02-03/05, flagyl 03/01-03/02, vancomycin 03/01-03/02) -VAP bundle -MRSA (+) nares -COVID 19 PCR (+) -Decadron for 10 days (03/06-03/15) -Contact/Droplet precautions -03/01 BCx2 with NGTD -03/01 UC with NGTD -03/02 sputum culture -Reculture with next temp spike -Prone if needed -Vit C/D/Zinc Endo: DM -SSI, lantus -Accuchecks q6 -Avoid hypoglycemia Lines: condom cath, PIV Disposition: ICU Full code The high probability of a clinically significant, sudden or life threatening deterioration of the [multi] system(s) required my full and direct attention, intervention and personal management. The aggregate critical care time was [60] minutes. This time is in addition to time spent performing reported procedures but includes the following: [x] Data Review and interpretation [x] Patient assessment and monitoring of vital signs [x] Documentation [x] Medication orders and management History Interval history: This is a 51-year-old -[place] male with COPD with chronic respiratory failure, CHFpEF, diabetes mellitus, DVT/PE on coumadin and hypertension who [facility] for AMS and hypoxia. On arrival of EMS oxygen saturation was about 88% on room air, blood pressure was said to be about 88/50 mmHg. Work-up in the emergency room reveals leukocytosis of 12.7, hemoglobin of 9.1 and hematocrit of 27.7, sodium of 132, lactic acid of 2.90, elevated liver enzymes and elevated troponin at 0.493. A CT of the chest showed findings concerning for atelectasis and or infiltrate, CT of the head was unremarkable. Patient was in severe respiratory distress upon arrival in the emergency room and subsequently intubated. Patient was admitted to the hospitalist service with consults to cardiology, CCM, GI, and neprohology for severe sepsis, respiratory failure, pneumonia and ALPHONSO. Of note patient was admitted to [facility] rom 12/12-01/14 and was on HD during that admit. 03/03/21: Patient remains intubated, continue on heparin drip, monitor H&H and BMP. Continue empiric antibiotics, ID following. Follow ammonia level and LFT. According to cardiology patient indeed had preserved EF during his recent admission to [place]. Plan to repeat 2D echo. Critical care following, wean off from vent as tolerated. 03/04: RN reported blood y secretions in OETT and clots, heparin gtt stopped and B LE US obtained which shows DVT, abx deescalated, heparin gtt restarted. 03/05: RN reported vomiting x1, promithazine x1 given, Qtc at 599 on EKG. AM labs pending. tmax 102.2, reculture with next spike, COVID 19 PCR. abx stopped re prolonged qtc and received CAP coverage. 03/06: Reported high TF residual, COVID PCR pending. Cr better today. tmax 100.7 Hospitalist Physical - Constitutional Vitals: Temp Pulse Resp BP Pulse Ox 100.7 F H 106 H 22 109/53 98 03/06/21 07:51 03/06/21 10:00 03/06/21 10:00 03/06/21 10:00 03/06/21 10:00 General appearance: Present: well-nourished, obese, other (sedated) - EENT Eyes: Present: PERRL, EOM intact ENT: clear oral mucosa - Neck Neck: Present: normal ROM - Respiratory Respiratory effort: normal Respiratory: bilateral: diminished - Cardiovascular Rhythm: regular Heart Sounds: Present: S1 & S2. Absent: systolic murmur, diastolic murmur - Extremities Extremities: no ischemia, pulses intact, pulses symmetrical, normal temperature Peripheral Pulses: within normal limits - Abdominal General gastrointestinal: soft, non-tender, non-distended, normal bowel sounds - Integumentary Integumentary: Present: warm, dry - Psychiatric Psychiatric: cooperative - Neurologic Neurologic: moves all extremities - Allied Health Allied health notes reviewed: nursing, RT, social work HEART Score - HEART Score Troponin: Troponin T 0.484 ng/mL (0.00-0.029) H* 03/01/21 20:55 Results - Labs CBC & Chem 7: 03/06/21 05:20 03/06/21 05:20 Labs: Laboratory Last Values WBC 15.2 K/mm3 (4.5-11.0) H 03/06/21 05:20 RBC 2.48 M/mm3 (3.65-5.03) L 03/06/21 05:20 Hgb 8.2 gm/dl (11.8-15.2) L 03/06/21 05:20 Hct 24.9 % (35.5-45.6) L 03/06/21 05:20 MCV 100 fl (84-94) H 03/06/21 05:20 MCH 33 pg (28-32) H 03/06/21 05:20 MCHC 33 % (32-34) 03/06/21 05:20 RDW 18.6 % (13.2-15.2) H 03/06/21 05:20 Plt Count 197 K/mm3 (140-440) 03/06/21 05:20 Lymph % (Auto) 22.4 % (13.4-35.0) 03/06/21 05:20 [place] % (Auto) 4.5 % (0.0-7.3) 03/06/21 05:20 Eos % (Auto) 0.2 % (0.0-4.3) 03/06/21 05:20 Baso % (Auto) 0.3 % (0.0-1.8) 03/06/21 05:20 Lymph # (Auto) 3.4 K/mm3 (1.2-5.4) 03/06/21 05:20 [place] # (Auto) 0.7 K/mm3 (0.0-0.8) 03/06/21 05:20 Eos # (Auto) 0.0 K/mm3 (0.0-0.4) 03/06/21 05:20 Baso # (Auto) 0.1 K/mm3 (0.0-0.1) 03/06/21 05:20 Add Manual Diff Complete 03/01/21 19:21 Total Counted 100 03/01/21 19:21 Seg Neutrophils % 72.6 % (40.0-70.0) H 03/06/21 05:20 Seg Neuts % (Manual) 49.0 % (40.0-70.0) 03/01/21 19:21 Lymphocytes % (Manual) 32.0 % (13.4-35.0) 03/01/21 19:21 Monocytes % (Manual) 17.0 % (0.0-7.3) H 03/01/21 19:21 Eosinophils % (Manual) 1.0 % (0.0-4.3) 03/01/21 19:21 Basophils % (Manual) 1.0 % (0.0-1.8) 03/01/21 19:21 Nucleated RBC % Not Reportable 03/01/21 19:21 Seg Neutrophils # 11.1 K/mm3 (1.8-7.7) H 03/06/21 05:20 Seg Neutrophils # Man 6.2 K/mm3 (1.8-7.7) 03/01/21 19:21 Band Neutrophils # 0.0 K/mm3 03/01/21 19:21 Lymphocytes # (Manual) 4.1 K/mm3 (1.2-5.4) 03/01/21 19:21 Abs React Lymphs (Man) 0.0 K/mm3 03/01/21 19:21 Monocytes # (Manual) 2.2 K/mm3 (0.0-0.8) H 03/01/21 19:21 Eosinophils # (Manual) 0.1 K/mm3 (0.0-0.4) 03/01/21 19:21 Basophils # (Manual) 0.1 K/mm3 (0.0-0.1) 03/01/21 19:21 Metamyelocytes # 0.0 K/mm3 03/01/21 19:21 Myelocytes # 0.0 K/mm3 03/01/21 19:21 Promyelocytes # 0.0 K/mm3 03/01/21 19:21 Blast Cells # 0.0 K/mm3 03/01/21 19:21 WBC Morphology Not Reportable 03/01/21 19:21 Hypersegmented Neuts Not Reportable 03/01/21 19:21 Hyposegmented Neuts Not Reportable 03/01/21 19:21 Hypogranular Neuts Not Reportable 03/01/21 19:21 Smudge Cells Not Reportable 03/01/21 19:21 Toxic Granulation Not Reportable 03/01/21 19:21 Toxic Vacuolation Not Reportable 03/01/21 19:21 Dohle Bodies Not Reportable 03/01/21 19:21 Pelger-Huet Anomaly Not Reportable 03/01/21 19:21 Katherine Rods Not Reportable 03/01/21 19:21 Platelet Estimate Not Reportable 03/01/21 19:21 Clumped Platelets Not Reportable 03/01/21 19:21 Plt Clumps, EDTA Not Reportable 03/01/21 19:21 Large Platelets Not Reportable 03/01/21 19:21 Giant Platelets Not Reportable 03/01/21 19:21 Platelet Satelliting Not Reportable 03/01/21 19:21 Plt Morphology Comment Not Reportable 03/01/21 19:21 RBC Morphology Not Reportable 03/01/21 19:21 Dimorphic RBCs Not Reportable 03/01/21 19:21 Polychromasia Not Reportable 03/01/21 19:21 Hypochromasia Not Reportable 03/01/21 19:21 Poikilocytosis Not Reportable 03/01/21 19:21 Anisocytosis Rare 03/01/21 19:21 Microcytosis Not Reportable 03/01/21 19:21 Macrocytosis Not Reportable 03/01/21 19:21 Spherocytes Not Reportable 03/01/21 19:21 Pappenheimer Bodies Not Reportable 03/01/21 19:21 Sickle Cells Not Reportable 03/01/21 19:21 Target Cells Not Reportable 03/01/21 19:21 Tear Drop Cells Not Reportable 03/01/21 19:21 Ovalocytes Not Reportable 03/01/21 19:21 Helmet Cells Not Reportable 03/01/21 19:21 [place] Bodies Not Reportable 03/01/21 19:21 [place] Rings Not Reportable 03/01/21 19:21 Ham[place] Cells Not Reportable 03/01/21 19:21 Bite Cells Not Reportable 03/01/21 19:21 Crenated Cell Not Reportable 03/01/21 19:21 Elliptocytes Not Reportable 03/01/21 19:21 Acanthocytes (Spur) Not Reportable 03/01/21 19:21 Rouleaux Not Reportable 03/01/21 19:21 Hemoglobin C Crystals Not Reportable 03/01/21 19:21 Schistocytes Few 03/01/21 19:21 Malaria parasites Not Reportable 03/01/21 19:21 Henry Bodies Not Reportable 03/01/21 19:21 Hem Pathologist Commnt No 03/01/21 19:21 PT 15.6 Sec. (12.2-14.9) H 03/04/21 10:17 INR 1.18 (0.87-1.13) H 03/04/21 10:17 APTT 36.6 Sec. (24.2-36.6) 03/02/21 16:28 Heparin Anti-Xa Level 0.70 U.I./ml (0.3-0.7) 03/05/21 20:00 ABG pH 7.426 (7.320-7.450) 03/06/21 03:30 POC ABG pCO2 49.7 mmHg (32.0-48.0) H 03/06/21 03:30 POC ABG pO2 65.1 mmHg (83-108) L 03/06/21 03:30 POC ABG HCO3 32.0 03/06/21 03:30 ABG O2 Saturation 90.9 (0-100) 03/06/21 03:30 POC ABG Base Excess 6.7 03/06/21 03:30 ABG Hemoglobin 9.1 (12.0-17.5) L 03/06/21 03:30 ABG Oxyhemoglobin 90.2 (94-98) L 03/06/21 03:30 ABG Methemoglobin 0.3 (0.0-1.5) 03/06/21 03:30 ABG Sodium 131.2 mmol/L (136.0-145.0) L 03/06/21 03:30 ABG Potassium 3.7 mmol/L (3.40-4.50) 03/06/21 03:30 ABG Chloride 96.0 mmol/L (98-107) L 03/06/21 03:30 ABG Glucose 133 mg/dL (65-95) H 03/06/21 03:30 Carboxyhemoglobin 0.5 (0.5-1.5) 03/06/21 03:30 FiO2 % 65.0 03/06/21 03:30 Sodium 135 mmol/L (137-145) L 03/06/21 05:20 Potassium 3.7 mmol/L (3.6-5.0) 03/06/21 05:20 Chloride 94.5 mmol/L (98-107) L 03/06/21 05:20 Carbon Dioxide 29 mmol/L (22-30) 03/06/21 05:20 Anion Gap 15 mmol/L 03/06/21 05:20 BUN 49 mg/dL (9-20) H 03/06/21 05:20 Creatinine 1.3 mg/dL (0.8-1.3) 03/06/21 05:20 Estimated GFR > 60 ml/min 03/06/21 05:20 BUN/Creatinine Ratio 38 % 03/06/21 05:20 Glucose 121 mg/dL (75-100) H 03/06/21 05:20 POC Glucose 123 mg/dL (70-105) H 03/06/21 11:52 Lactic Acid 1.70 mmol/L (0.7-2.0) 03/04/21 10:17 Calcium 7.3 mg/dL (8.4-10.2) L 03/06/21 05:20 Phosphorus 3.50 mg/dL (2.5-4.5) 03/06/21 05:20 Magnesium 1.50 mg/dL (1.7-2.3) L 03/06/21 05:20 Total Bilirubin 1.20 mg/dL (0.1-1.2) 03/06/21 05:20 Direct Bilirubin 0.6 mg/dL (0-0.2) H 03/04/21 05:26 Indirect Bilirubin 0.2 mg/dL 03/04/21 05:26 AST 120 units/L (5-40) H 03/06/21 05:20 ALT 74 units/L (7-56) H 03/06/21 05:20 Alkaline Phosphatase 306 units/L (35-129) H 03/06/21 05:20 Ammonia 71.0 umol/L (25-60) H 03/01/21 19:21 Troponin T 0.484 ng/mL (0.00-0.029) H* 03/01/21 20:55 C-Reactive Protein 27.90 mg/dL (0.00-1.30) H 03/06/21 04:30 Total Protein 4.5 g/dL (6.3-8.2) L 03/06/21 05:20 Albumin 2.0 g/dL (3.9-5) L 03/06/21 05:20 Albumin/Globulin Ratio 0.8 % 03/06/21 05:20 Triglycerides 400 mg/dL (2-149) H 03/01/21 19:21 Cholesterol 232 mg/dL (50-199) H 03/01/21 19:21 LDL Cholesterol Direct 130 mg/dL (50-130) 03/01/21 19:21 HDL Cholesterol 22 mg/dL (40-59) L 03/01/21 19:21 Cholesterol/HDL Ratio 10.54 % 03/01/21 19:21 Lipase 78 units/L (13-60) H 03/04/21 10:17 Procalcitonin 0.89 ng/mL (<0.15) 03/04/21 13:04 TSH 1.840 mlU/mL (0.270-4.200) 03/03/21 04:06 Arterial Blood Glucose 133 mg/dL (65-95) H 03/06/21 03:30 Arterial Blood Ionized Calcium 4.2 mg/dL (4.6-5.3) L 03/06/21 03:30 Urine Color [place] (Yellow) 03/01/21 21:40 Urine Turbidity Slightly-cloudy (Clear) 03/01/21 21:40 Urine pH 5.0 (5.0-7.0) 03/01/21 21:40 Ur Specific [place] 1.018 (1.003-1.030) 03/01/21 21:40 Urine Protein 30 mg/dl mg/dL (Negative) 03/01/21 21:40 Urine Glucose (UA) Neg mg/dL (Negative) 03/01/21 21:40 Urine Ketones Neg mg/dL (Negative) 03/01/21 21:40 Urine Blood Sm (Negative) 03/01/21 21:40 Urine Nitrite Neg (Negative) 03/01/21 21:40 Urine Bilirubin Neg (Negative) 03/01/21 21:40 Urine Urobilinogen 4.0 mg/dL (<2.0) 03/01/21 21:40 Ur Leukocyte Esterase Neg (Negative) 03/01/21 21:40 Urine WBC (Auto) 5.0 /HPF (0.0-6.0) 03/01/21 21:40 Urine RBC (Auto) 4.0 /HPF (0.0-6.0) 03/01/21 21:40 U Epithel Cells (Auto) 1.0 /HPF (0-13.0) 03/01/21 21:40 Urine Bacteria (Auto) 1+ /HPF (Negative) 03/01/21 21:40 Hyaline Casts 14 /LPF 03/01/21 21:40 Urine Mucus Few /HPF 03/01/21 21:40 Urine Yeast (Budding) Few /HPF 03/01/21 21:40 Nasal Screen MRSA (PCR) Positive (Negative) 03/02/21 05:00 Salicylates < 0.3 mg/dL (2.8-20.0) L 03/01/21 19:21 Urine Opiates Screen Positive 03/01/21 21:40 Urine Methadone Screen Negative 03/01/21 21:40 Acetaminophen 5.0 ug/mL (10.0-30.0) L 03/01/21 19:21 Ur Barbiturates Screen Negative 03/01/21 21:40 Ur Phencyclidine Scrn Negative 03/01/21 21:40 Ur Amphetamines Screen Negative 03/01/21 21:40 U Benzodiazepines Scrn Negative 03/01/21 21:40 Urine Cocaine Screen Negative 03/01/21 21:40 U Marijuana (THC) Screen Negative 03/01/21 21:40 Drugs of Abuse Note Disclamer 03/01/21 21:40 Blood Type O POSITIVE 03/01/21 19:21 Antibody Screen Negative 03/01/21 19:21 Microbiology: Microbiology 03/01/21 19:35 Peripheral/Venous Blood Culture - Preliminary NO GROWTH AFTER 4 DAYS 03/01/21 19:21 Peripheral/Venous Blood Culture - Preliminary NO GROWTH AFTER 4 DAYS 03/02/21 15:48 Tracheal Aspirate Sputum Culture - Final Merlyn Albicans Vilchis/IV: Voiding Method Condom Catheter Active Medications - Current Medications Current Medications: Generic Name Dose Route Start Last Admin Trade Name Freq PRN Reason Stop Dose Admin Acetaminophen 650 mg 07/28/21 10:00 Acetaminophen 325 Mg/10.15 Ml Oral Liqd Unit Dose FEEDTUBE Q6H PRN Pain MILD(1-3)/Fever >100.5/VALDES Albuterol 2.5 mg 03/02/21 15:45 Albuterol 2.5 Mg/3 Ml Nebu IH Q4H PRN Shortness Of Breath Lipase/Protease/Amylase 1 each 03/03/21 10:53 Lipase 10,500/Protease 25,000/Amylase 43,750 (Units) Dr Cap FEEDTUBE PRN PRN For Clogged Feeding Tube Aspirin 81 mg 03/04/21 10:00 03/06/21 09:44 Aspirin 81 Mg Tab Chew PO 81 mg QDAY KYLE Administration Dextrose 50 ml 03/02/21 11:38 Dextrose 50% In Water (25gm) 50 Ml Syringe IV Q30MIN PRN Hypoglycemia Protocol Famotidine 20 mg 03/04/21 10:00 03/06/21 09:44 Famotidine 20 Mg Tab PO 20 mg BID KYLE Administration Fentanyl 50 mcg 03/02/21 04:16 03/03/21 12:00 Fentanyl 100 Mcg/2 Ml Inj IV 50 mcg Q10MIN PRN Administration ANALGESIA Heparin Sodium (Porcine) 5,200 unit 03/04/21 14:33 03/04/21 14:50 Heparin 10,000 Units/10 Ml Vial 40 unit/kg (5200 unit) 5,200 unit IV Administration Q6H PRN Anti-Xa Assay < 0.1 units/ml Hydrophilic Ointment 1 applic 03/02/21 15:42 Lip Therapy Vaseline TP Q2H PRN Dry Lips Fentanyl Citrate 2,000 mcg in 100 mls @ 6.55 mls/hr 03/01/21 21:30 03/06/21 11:09 Fentanyl Drip Premix IV 3 mcg/kg/hr TITR KYLE 19.65 mls/hr Administration Protocol 1 MCG/KG/HR Heparin Sodium/Sodium Chloride 25,000 unit in 500 mls @ 30 mls/hr 03/04/21 15:00 03/05/21 23:04 Heparin/ 0.45% Nacl-25,000 Unit/500 Ml IV 1,500 units/hr TITR KYLE 30 mls/hr Titration Protocol 1,500 UNITS/HR Insulin Glargine 5 units 03/03/21 22:00 03/05/21 21:34 Insulin Glargine 100 Units/Ml SUB-Q 5 units QHS KYLE Administration Insulin Human Lispro 0 unit 03/04/21 12:00 03/06/21 06:06 Insulin Lispro 100 Unit/Ml SUB-Q Not Given Q6HR [facility] Protocol Magnesium Hydroxide 30 ml 03/02/21 00:18 Magnesium Hydroxide (Mom) Oral Liqd Udc PO Q4H PRN Constipation Midodrine 10 mg 03/02/21 12:00 03/06/21 09:44 Midodrine 5 Mg Tab PO 10 mg TID@0800,1200,1600 KYLE Administration Multi-Ingred Cream/Lotion/Oil/Oint 1 applic 03/02/21 15:42 Mineral Oil/Petrolatum, White Ophth Oint 3.5 Gm OU Q4HR PRN Dry Eye(s) Multivitamins/Minerals 1 each 03/03/21 22:00 03/06/21 09:44 Calcium Carb/Vit D3/Minerals 600 Mg/800 Units Tab PO 1 each BID KYLE Administration Senna/Docusate Sodium 1 tab 03/02/21 22:00 03/06/21 09:44 Sennosides/Docusate Sodium 8.6/50 Mg Tab FEEDTUBE 1 tab BID KYLE Administration Simple Syrup 15 ml 03/03/21 10:53 Simple Syrup 15 Ml FEEDTUBE PRN PRN Hypoglycemia Simple Syrup 30 ml 03/03/21 10:53 Simple Syrup 15 Ml FEEDTUBE PRN PRN Hypoglycemia Sodium Bicarbonate 325 mg 03/03/21 10:53 Sodium Bicarbonate 325 Mg Tab FEEDTUBE PRN PRN For Clogged Feeding Tube Sodium Chloride 10 ml 03/02/21 10:00 03/06/21 09:45 Sodium Chloride 0.9% 10 Ml Flush Syringe IV 10 ml BID KYLE Administration Sodium Chloride 10 ml 03/02/21 00:18 Sodium Chloride 0.9% 10 Ml Flush Syringe IV PRN PRN LINE FLUSH Nutrition/Malnutrition Assess - Dietary Evaluation Nutrition/Malnutrition Findings: Nutrition Notes Start: 03/02/21 10:10 Freq: Status: Active Protocol: Document 03/05/21 11:22 CW (Rec: 03/05/21 11:34 CW [id number]) Nutrition Notes Initial or Follow up Reassessment Current Diagnosis Acute Kidney Injury,COPD, Diabetes,Sepsis,Hypertension, Heart Failure,Respiratory Failure Other Pertinent Diagnosis pneu, AMS Current Diet Glucerna 1.2 at 65 ml/hr; Flush of 100 ml q4h Labs/Tests 03/04/2021: Na 136 BUN 46 Cr 1.4 BG 151 Pertinent Medications Midodrine Lantus D5w 1/2ns 1L 20 mEq KCl Height 5 ft 10 in Weight 131 kg [place] Body Weight (kg) 75.45 BMI 41.4 Weight Status Morbidly Obese Subjective/Other Information F/U for TF start/tolerance. TF running at 35 ml/hr at this time. No reports of TF intolerance. Percent of energy/protein needs met: 54%/26% Burn Absent Trauma Absent Current % PO Negligible Minimum of two criteria No physical signs of malnutrition #1 Nutrition Diagnosis Inadequate oral intake Diagnosis Progress(for reassessment Continues documentation) Is patient on ventilator? Yes Is Patient Ambulatory and/or Out of Bed No REE-([facility]-confined to bed) 2614.728 Kcal/Kg value to use for calculation 14 Approximate Energy Requirements Using 1834 kcal/Kg Calculation Used for Recommendations Kcal/kg Additional Notes Protein: up to 2.5g/kg IBW (< or = to 189g) Fluid: 1 ml/kcal or per MD Nutrition Intervention Change Diet Order: Continue TF Nutrition Support: Glucerna 1.2 at 65 ml/hr Flush 100 ml q4h or per MD Kcal 1,872 Protein (gm) 94 Carbohydrates (gm) 179 Fat (gm) 94 Fluid (mL) 1,256 Goal #1 Meet at least 75% of kcal needs and protein needs as best as possible via TF Anticipated Discharge Needs: Unable to determine at this time Follow-Up By: 03/07/21 Additional Comments FU for TF at goal and tolerance <CADE HAYS R - Last Filed: 03/06/21 17:00> Assessment and Plan Assessment and plan: I saw and evaluated the patient. I agree with the findings and the plan of care as documented in the Nurse Practitioner's~note, with the following corrections and additions. COVID-19 pneumonia: Covid PCR is positive. Patient will be initiated on Covid protocol including remdesivir ID. Continue to follow inflammatory markers and ID recommendation. Hospitalist Physical - Constitutional Vitals: Temp Pulse Resp BP Pulse Ox 100.1 F H 94 H 22 96/49 99 03/06/21 15:44 03/06/21 14:00 03/06/21 14:00 03/06/21 14:00 03/06/21 14:00 HEART Score - HEART Score Troponin: Troponin T 0.484 ng/mL (0.00-0.029) H* 03/01/21 20:55 Results - Labs CBC & Chem 7: 03/06/21 05:20 03/06/21 05:20 Labs: Laboratory Last Values WBC 15.2 K/mm3 (4.5-11.0) H 03/06/21 05:20 RBC 2.48 M/mm3 (3.65-5.03) L 03/06/21 05:20 Hgb 8.2 gm/dl (11.8-15.2) L 03/06/21 05:20 Hct 24.9 % (35.5-45.6) L 03/06/21 05:20 MCV 100 fl (84-94) H 03/06/21 05:20 MCH 33 pg (28-32) H 03/06/21 05:20 MCHC 33 % (32-34) 03/06/21 05:20 RDW 18.6 % (13.2-15.2) H 03/06/21 05:20 Plt Count 197 K/mm3 (140-440) 03/06/21 05:20 Lymph % (Auto) 22.4 % (13.4-35.0) 03/06/21 05:20 [place] % (Auto) 4.5 % (0.0-7.3) 03/06/21 05:20 Eos % (Auto) 0.2 % (0.0-4.3) 03/06/21 05:20 Baso % (Auto) 0.3 % (0.0-1.8) 03/06/21 05:20 Lymph # (Auto) 3.4 K/mm3 (1.2-5.4) 03/06/21 05:20 [place] # (Auto) 0.7 K/mm3 (0.0-0.8) 03/06/21 05:20 Eos # (Auto) 0.0 K/mm3 (0.0-0.4) 03/06/21 05:20 Baso # (Auto) 0.1 K/mm3 (0.0-0.1) 03/06/21 05:20 Add Manual Diff Complete 03/01/21 19:21 Total Counted 100 03/01/21 19:21 Seg Neutrophils % 72.6 % (40.0-70.0) H 03/06/21 05:20 Seg Neuts % (Manual) 49.0 % (40.0-70.0) 03/01/21 19:21 Lymphocytes % (Manual) 32.0 % (13.4-35.0) 03/01/21 19:21 Monocytes % (Manual) 17.0 % (0.0-7.3) H 03/01/21 19:21 Eosinophils % (Manual) 1.0 % (0.0-4.3) 03/01/21 19:21 Basophils % (Manual) 1.0 % (0.0-1.8) 03/01/21 19:21 Nucleated RBC % Not Reportable 03/01/21 19:21 Seg Neutrophils # 11.1 K/mm3 (1.8-7.7) H 03/06/21 05:20 Seg Neutrophils # Man 6.2 K/mm3 (1.8-7.7) 03/01/21 19:21 Band Neutrophils # 0.0 K/mm3 03/01/21 19:21 Lymphocytes # (Manual) 4.1 K/mm3 (1.2-5.4) 03/01/21 19:21 Abs React Lymphs (Man) 0.0 K/mm3 03/01/21 19:21 Monocytes # (Manual) 2.2 K/mm3 (0.0-0.8) H 03/01/21 19:21 Eosinophils # (Manual) 0.1 K/mm3 (0.0-0.4) 03/01/21 19:21 Basophils # (Manual) 0.1 K/mm3 (0.0-0.1) 03/01/21 19:21 Metamyelocytes # 0.0 K/mm3 03/01/21 19:21 Myelocytes # 0.0 K/mm3 03/01/21 19:21 Promyelocytes # 0.0 K/mm3 03/01/21 19:21 Blast Cells # 0.0 K/mm3 07/23/21 19:21 WBC Morphology Not Reportable 03/01/21 19:21 Hypersegmented Neuts Not Reportable 03/01/21 19:21 Hyposegmented Neuts Not Reportable 03/01/21 19:21 Hypogranular Neuts Not Reportable 03/01/21 19:21 Smudge Cells Not Reportable 03/01/21 19:21 Toxic Granulation Not Reportable 03/01/21 19:21 Toxic Vacuolation Not Reportable 03/01/21 19:21 Dohle Bodies Not Reportable 03/01/21 19:21 Pelger-Huet Anomaly Not Reportable 03/01/21 19:21 Katherine Rods Not Reportable 03/01/21 19:21 Platelet Estimate Not Reportable 03/01/21 19:21 Clumped Platelets Not Reportable 03/01/21 19:21 Plt Clumps, EDTA Not Reportable 03/01/21 19:21 Large Platelets Not Reportable 03/01/21 19:21 Giant Platelets Not Reportable 03/01/21 19:21 Platelet Satelliting Not Reportable 03/01/21 19:21 Plt Morphology Comment Not Reportable 03/01/21 19:21 RBC Morphology Not Reportable 03/01/21 19:21 Dimorphic RBCs Not Reportable 03/01/21 19:21 Polychromasia Not Reportable 03/01/21 19:21 Hypochromasia Not Reportable 03/01/21 19:21 Poikilocytosis Not Reportable 03/01/21 19:21 Anisocytosis Rare 03/01/21 19:21 Microcytosis Not Reportable 03/01/21 19:21 Macrocytosis Not Reportable 03/01/21 19:21 Spherocytes Not Reportable 03/01/21 19:21 Pappenheimer Bodies Not Reportable 03/01/21 19:21 Sickle Cells Not Reportable 03/01/21 19:21 Target Cells Not Reportable 03/01/21 19:21 Tear Drop Cells Not Reportable 03/01/21 19:21 Ovalocytes Not Reportable 03/01/21 19:21 Helmet Cells Not Reportable 03/01/21 19:21 [place] Bodies Not Reportable 03/01/21 19:21 [place] Rings Not Reportable 03/01/21 19:21 [place] Cells Not Reportable 07/23/21 19:21 Bite Cells Not Reportable 03/01/21 19:21 Crenated Cell Not Reportable 03/01/21 19:21 Elliptocytes Not Reportable 03/01/21 19:21 Acanthocytes (Spur) Not Reportable 03/01/21 19:21 Rouleaux Not Reportable 03/01/21 19:21 Hemoglobin C Crystals Not Reportable 03/01/21 19:21 Schistocytes Few 03/01/21 19:21 Malaria parasites Not Reportable 03/01/21 19:21 Henry Bodies Not Reportable 03/01/21 19:21 Hem Pathologist Commnt No 03/01/21 19:21 PT 15.6 Sec. (12.2-14.9) H 03/04/21 10:17 INR 1.18 (0.87-1.13) H 03/04/21 10:17 APTT 36.6 Sec. (24.2-36.6) 03/02/21 16:28 Heparin Anti-Xa Level 0.70 U.I./ml (0.3-0.7) 03/05/21 20:00 ABG pH 7.426 (7.320-7.450) 03/06/21 03:30 POC ABG pCO2 49.7 mmHg (32.0-48.0) H 03/06/21 03:30 POC ABG pO2 65.1 mmHg (83-108) L 03/06/21 03:30 POC ABG HCO3 32.0 03/06/21 03:30 ABG O2 Saturation 90.9 (0-100) 03/06/21 03:30 POC ABG Base Excess 6.7 03/06/21 03:30 ABG Hemoglobin 9.1 (12.0-17.5) L 03/06/21 03:30 ABG Oxyhemoglobin 90.2 (94-98) L 03/06/21 03:30 ABG Methemoglobin 0.3 (0.0-1.5) 03/06/21 03:30 ABG Sodium 131.2 mmol/L (136.0-145.0) L 03/06/21 03:30 ABG Potassium 3.7 mmol/L (3.40-4.50) 03/06/21 03:30 ABG Chloride 96.0 mmol/L (98-107) L 03/06/21 03:30 ABG Glucose 133 mg/dL (65-95) H 03/06/21 03:30 Carboxyhemoglobin 0.5 (0.5-1.5) 03/06/21 03:30 FiO2 % 65.0 03/06/21 03:30 Sodium 135 mmol/L (137-145) L 03/06/21 05:20 Potassium 3.7 mmol/L (3.6-5.0) 03/06/21 05:20 Chloride 94.5 mmol/L (98-107) L 03/06/21 05:20 Carbon Dioxide 29 mmol/L (22-30) 03/06/21 05:20 Anion Gap 15 mmol/L 03/06/21 05:20 BUN 49 mg/dL (9-20) H 03/06/21 05:20 Creatinine 1.3 mg/dL (0.8-1.3) 03/06/21 05:20 Estimated GFR > 60 ml/min 03/06/21 05:20 BUN/Creatinine Ratio 38 % 03/06/21 05:20 Glucose 121 mg/dL (75-100) H 03/06/21 05:20 POC Glucose 123 mg/dL (70-105) H 03/06/21 11:52 Lactic Acid 1.70 mmol/L (0.7-2.0) 03/04/21 10:17 Calcium 7.3 mg/dL (8.4-10.2) L 03/06/21 05:20 Phosphorus 3.50 mg/dL (2.5-4.5) 03/06/21 05:20 Magnesium 1.50 mg/dL (1.7-2.3) L 03/06/21 05:20 Total Bilirubin 1.20 mg/dL (0.1-1.2) 03/06/21 05:20 Direct Bilirubin 0.6 mg/dL (0-0.2) H 03/04/21 05:26 Indirect Bilirubin 0.2 mg/dL 03/04/21 05:26 AST 120 units/L (5-40) H 03/06/21 05:20 ALT 74 units/L (7-56) H 03/06/21 05:20 Alkaline Phosphatase 306 units/L (35-129) H 03/06/21 05:20 Ammonia 71.0 umol/L (25-60) H 03/01/21 19:21 Troponin T 0.484 ng/mL (0.00-0.029) H* 03/01/21 20:55 C-Reactive Protein 27.90 mg/dL (0.00-1.30) H 03/06/21 04:30 Total Protein 4.5 g/dL (6.3-8.2) L 03/06/21 05:20 Albumin 2.0 g/dL (3.9-5) L 03/06/21 05:20 Albumin/Globulin Ratio 0.8 % 03/06/21 05:20 Triglycerides 400 mg/dL (2-149) H 03/01/21 19:21 Cholesterol 232 mg/dL (50-199) H 03/01/21 19:21 LDL Cholesterol Direct 130 mg/dL (50-130) 03/01/21 19:21 HDL Cholesterol 22 mg/dL (40-59) L 03/01/21 19:21 Cholesterol/HDL Ratio 10.54 % 03/01/21 19:21 Lipase 78 units/L (13-60) H 03/04/21 10:17 Procalcitonin 0.89 ng/mL (<0.15) 03/04/21 13:04 TSH 1.840 mlU/mL (0.270-4.200) 03/03/21 04:06 Arterial Blood Glucose 133 mg/dL (65-95) H 03/06/21 03:30 Arterial Blood Ionized Calcium 4.2 mg/dL (4.6-5.3) L 03/06/21 03:30 Urine Color [place] (Yellow) 03/06/21 14:34 Urine Turbidity Cloudy (Clear) 03/06/21 14:34 Urine pH 5.0 (5.0-7.0) 03/06/21 14:34 Ur Specific [place] 1.014 (1.003-1.030) 03/06/21 14:34 Urine Protein 30 mg/dl mg/dL (Negative) 03/06/21 14:34 Urine Glucose (UA) Neg mg/dL (Negative) 03/06/21 14:34 Urine Ketones Neg mg/dL (Negative) 03/06/21 14:34 Urine Blood Sm (Negative) 03/06/21 14:34 Urine Nitrite Neg (Negative) 03/06/21 14:34 Urine Bilirubin Neg (Negative) 03/06/21 14:34 Urine Urobilinogen 4.0 mg/dL (<2.0) 03/06/21 14:34 Ur Leukocyte Esterase Neg (Negative) 03/06/21 14:34 Urine WBC (Auto) 103.0 /HPF (0.0-6.0) H 03/06/21 14:34 Urine RBC (Auto) 105.0 /HPF (0.0-6.0) 03/06/21 14:34 U Epithel Cells (Auto) 5.0 /HPF (0-13.0) 03/06/21 14:34 Urine Bacteria (Auto) 2+ /HPF (Negative) 03/06/21 14:34 Hyaline Casts 5 /LPF 03/06/21 14:34 Urine Mucus 1+ /HPF 03/06/21 14:34 Urine Yeast (Budding) Few /HPF 03/01/21 21:40 Urine Sperm 3+ /HPF ([employer]) 03/06/21 14:34 Nasal Screen MRSA (PCR) Positive (Negative) 03/02/21 05:00 Salicylates < 0.3 mg/dL (2.8-20.0) L 03/01/21 19:21 Urine Opiates Screen Positive 03/01/21 21:40 Urine Methadone Screen Negative 03/01/21 21:40 Acetaminophen 5.0 ug/mL (10.0-30.0) L 03/01/21 19:21 Ur Barbiturates Screen Negative 03/01/21 21:40 Ur Phencyclidine Scrn Negative 03/01/21 21:40 Ur Amphetamines Screen Negative 03/01/21 21:40 U Benzodiazepines Scrn Negative 03/01/21 21:40 Urine Cocaine Screen Negative 03/01/21 21:40 U Marijuana (THC) Screen Negative 03/01/21 21:40 Drugs of Abuse Note Disclamer 03/01/21 21:40 Coronavirus (PCR) Positive (Negative) A 03/05/21 Unknown Blood Type O POSITIVE 03/01/21 19:21 Antibody Screen Negative 03/01/21 19:21 Microbiology: Microbiology 03/06/21 13:47 Peripheral/Venous Blood Culture - Preliminary Culture in Progress 03/06/21 13:33 Peripheral/Venous Blood Culture - Preliminary Culture in Progress 03/01/21 19:35 Peripheral/Venous Blood Culture - Preliminary NO GROWTH AFTER 4 DAYS 03/01/21 19:21 Peripheral/Venous Blood Culture - Preliminary NO GROWTH AFTER 4 DAYS 03/02/21 15:48 Tracheal Aspirate Sputum Culture - Final [place] Alb[place]/IV: Voiding Method Condom Catheter Active Medications - Current Medications Current Medications: Generic Name Dose Route Start Last Admin Trade Name Freq PRN Reason Stop Dose Admin Acetaminophen 650 mg 03/06/21 10:00 03/06/21 12:33 Acetaminophen 325 Mg/10.15 Ml Oral Liqd Unit Dose FEEDTUBE 650 mg Q6H PRN Administration Pain MILD(1-3)/Fever >100.5/VALDES Albuterol 2.5 mg 03/02/21 15:45 Albuterol 2.5 Mg/3 Ml Nebu IH Q4H PRN Shortness Of Breath Lipase/Protease/Amylase 1 each 03/03/21 10:53 Lipase 10,500/Protease 25,000/Amylase 43,750 (Units) Dr Gutierrez FEEDTUBE PRN PRN For Clogged Feeding Tube Ascorbic Acid 500 mg 03/06/21 22:00 Ascorbic Acid 500 Mg Tab PO BID KYLE Aspirin 81 mg 03/04/21 10:00 03/06/21 09:44 Aspirin 81 Mg Tab Chew PO 81 mg QDAY KYLE Administration Cholecalciferol 1,000 unit 03/07/21 10:00 Cholecalciferol (Vit D3) 1000 Unit (25 Mcg) Tab PO QDAY KYLE Dexamethasone 6 mg 03/06/21 15:00 03/06/21 16:15 Dexamethasone 4 Mg/Ml Vial IV 03/15/21 15:01 6 mg Q24H KYLE Administration Dextrose 50 ml 03/02/21 11:38 Dextrose 50% In Water (25gm) 50 Ml Syringe IV Q30MIN PRN Hypoglycemia Protocol Famotidine 20 mg 03/04/21 10:00 03/06/21 09:44 Famotidine 20 Mg Tab PO 20 mg BID KYLE Administration Fentanyl 50 mcg 03/02/21 04:16 03/03/21 12:00 Fentanyl 100 Mcg/2 Ml Inj IV 50 mcg Q10MIN PRN Administration ANALGESIA Heparin Sodium (Porcine) 5,200 unit 03/04/21 14:33 03/04/21 14:50 Heparin 10,000 Units/10 Ml Vial 40 unit/kg (5200 unit) 5,200 unit IV Administration Q6H PRN Anti-Xa Assay < 0.1 units/ml Hydrophilic Ointment 1 applic 03/02/21 15:42 Lip Therapy Vaseline TP Q2H PRN Dry Lips Fentanyl Citrate 2,000 mcg in 100 mls @ 6.55 mls/hr 03/01/21 21:30 03/06/21 16:15 Fentanyl Drip Premix IV 3 mcg/kg/hr TITR KYLE 19.65 mls/hr Administration Protocol 1 MCG/KG/HR Heparin Sodium/Sodium Chloride 25,000 unit in 500 mls @ 30 mls/hr 03/04/21 15:00 03/06/21 14:10 Heparin/ 0.45% Nacl-25,000 Unit/500 Ml IV 1,500 units/hr TITR KYLE 30 mls/hr Administration Protocol 1,500 UNITS/HR REMDESIVIR 100 mg/ Sodium 250 mls @ 500 mls/hr 03/07/21 21:00 Chloride IV 03/10/21 21:29 Q24HR@2100 [facility] Insulin Glargine 5 units 03/03/21 22:00 03/05/21 21:34 Insulin Glargine 100 Units/Ml SUB-Q 5 units QHS [facility] Administration Insulin Human Lispro 0 unit 03/04/21 12:00 03/06/21 12:33 Insulin Lispro 100 Unit/Ml SUB-Q Not Given Q6HR [facility] Protocol Magnesium Hydroxide 30 ml 03/02/21 00:18 Magnesium Hydroxide (Mom) Oral Liqd Udc PO Q4H PRN Constipation Midodrine 10 mg 03/02/21 12:00 03/06/21 16:15 Midodrine 5 Mg Tab PO 10 mg TID@0800,1200,1600 [facility] Administration Multi-Ingred Cream/Lotion/Oil/Oint 1 applic 03/02/21 15:42 Mineral Oil/Petrolatum, White Ophth Oint 3.5 Gm OU Q4HR PRN Dry Eye(s) Multivitamins/Minerals 1 each 03/03/21 22:00 03/06/21 09:44 Calcium Carb/Vit D3/Minerals 600 Mg/800 Units Tab PO 1 each BID KYLE Administration Senna/Docusate Sodium 1 tab 03/02/21 22:00 03/06/21 09:44 Sennosides/Docusate Sodium 8.6/50 Mg Tab FEEDTUBE 1 tab BID KYLE Administration Simple Syrup 15 ml 03/03/21 10:53 Simple Syrup 15 Ml FEEDTUBE PRN PRN Hypoglycemia Simple Syrup 30 ml 03/03/21 10:53 Simple Syrup 15 Ml FEEDTUBE PRN PRN Hypoglycemia Sodium Bicarbonate 325 mg 03/03/21 10:53 Sodium Bicarbonate 325 Mg Tab FEEDTUBE PRN PRN For Clogged Feeding Tube Sodium Chloride 10 ml 03/02/21 10:00 03/06/21 09:45 Sodium Chloride 0.9% 10 Ml Flush Syringe IV 10 ml BID KYLE Administration Sodium Chloride 10 ml 03/02/21 00:18 Sodium Chloride 0.9% 10 Ml Flush Syringe IV PRN PRN LINE FLUSH Sodium Chloride 50 ml 03/06/21 16:00 03/06/21 16:36 Sodium Chloride 0.9% 50 Ml Ivpb IV 03/10/21 21:01 Not Given Q24HR@2100 KYLE Zinc Sulfate 220 mg 03/06/21 16:00 03/06/21 16:36 Zinc Sulfate 220 Mg Cap PO 220 mg BID KYLE Administration Nutrition/Malnutrition Assess - Dietary Evaluation Nutrition/Malnutrition Findings: Nutrition Notes Start: 03/02/21 10:10 Freq: Status: Active Protocol: Document 03/05/21 11:22 CW (Rec: 03/05/21 11:34 CW [id number]) Nutrition Notes Initial or Follow up Reassessment Current Diagnosis Acute Kidney Injury,COPD, Diabetes,Sepsis,Hypertension, Heart Failure,Respiratory Failure Other Pertinent Diagnosis pneu, AMS Current Diet Glucerna 1.2 at 65 ml/hr; Flush of 100 ml q4h Labs/Tests 03/04/2021: Na 136 BUN 46 Cr 1.4 BG 151 Pertinent Medications Midodrine Lantus D5w 1/2ns 1L 20 mEq KCl Height 5 ft 10 in Weight 131 kg [place] Body Weight (kg) 75.45 BMI 41.4 Weight Status Morbidly Obese Subjective/Other Information F/U for TF start/tolerance. TF running at 35 ml/hr at this time. No reports of TF intolerance. Percent of energy/protein needs met: 54%/26% Burn Absent Trauma Absent Current % PO Negligible Minimum of two criteria No physical signs of malnutrition #1 Nutrition Diagnosis Inadequate oral intake Diagnosis Progress(for reassessment Continues documentation) Is patient on ventilator? Yes Is Patient Ambulatory and/or Out of Bed No [facility] 2614.728 Kcal/Kg value to use for calculation 14 Approximate Energy Requirements Using 1834 kcal/Kg Calculation Used for Recommendations Kcal/kg Additional Notes Protein: up to 2.5g/kg IBW (< or = to 189g) Fluid: 1 ml/kcal or per MD Nutrition Intervention Change Diet Order: Continue TF Nutrition Support: Glucerna 1.2 at 65 ml/hr Flush 100 ml q4h or per MD Kcal 1,872 Protein (gm) 94 Carbohydrates (gm) 179 Fat (gm) 94 Fluid (mL) 1,256 Goal #1 Meet at least 75% of kcal needs and protein needs as best as possible via TF Anticipated Discharge Needs: Unable to determine at this time Follow-Up By: 03/07/21 Additional Comments FU for TF at goal and tolerance
[2021-03-06] MEDS: HEPARIN/ 0.45% NACL DRIP 25,000 UNIT/500 ML BAG IV SCH (14:10)
[2021-03-06] MEDS ORDERED: SODIUM CHLORIDE 0.9% 1000 ML IV SOLN ONE (14:32)
[2021-03-06] MEDS ORDERED: dexAMETHasone 4 MG/ML VIAL IV SCH (15:00)
[2021-03-06 15:08] LABS: Bacteria,Urine 2+ /HPF (Negative); Bilirubin,Urine NEG (Negative); Blood,Urine SM (Negative); Color,Urine Amber (Yellow); Hyaline Casts,Urine 5 /LPF; Mucus,Urine 1+ /HPF; Sperm,Urine 3+ /HPF (NP)
[2021-03-06] MEDS ORDERED: REMDESIVIR 200 MG in SODIUM CHLORIDE 0.9% 250ML 250 ML IV ONE (16:00)
[2021-03-06] MEDS: ZINC SULFATE 220 MG CAP PO SCH ×2 (16:36→21:56)
[2021-03-06] MEDS: SODIUM CHLORIDE 0.9% 50 ML IVPB IV SCH (16:36)
[2021-03-06] MEDS ORDERED: SODIUM CHLORIDE 0.9% 1000 ML 1,000 ML ONE (17:00)
--- NOTE | 2021-03-06 17:31 | Procedure Note ---
Date of procedure: 03/06/21 Pre-op diagnosis: COVID-19 pneumonia, DVT, ALPHONSO Post-op diagnosis: same Procedure: Left radial [place] Left radial valerie inserted using sterile technique. Ulnar pulse palpable. Obdulio test completed. Area prepped with chlorhexidine and the site was infiltrated with 1ml 1% lidocaine. Arterial line was placed using ultrasound; catheter advanced without difficulty. Line was sutured, statlock in place and tegaderm dressing applied. Arm board placed. Arterial waveform observed on bedside monitor. Line flushed. Monitoring cable malfunctioning, RN to transduce to monitor. RN at bedside. Pt tolerated procedure well. CCT: 60 minutes Procedure time not included in daily CCT Anesthesia: local Surgeon: CHAVO HERRERA Fare Enforcement Officer: PEPPER VELEZ Estimated blood loss: minimal Condition: stable Disposition: ICU
[2021-03-06] MEDS ORDERED: SODIUM CHLORIDE 0.9% 500 ML 1,000 ML IV PRN (18:11)
[2021-03-06] MEDS: ASCORBIC ACID 500 MG TAB PO SCH (21:56)
[2021-03-06] MEDS: INSULIN GLARGINE 100 UNITS/ML SUB-Q SCH (21:56)
[2021-03-06 23:48] LABS: ANA Screen, IFA Negative (Negative)
--- NOTE | 2021-03-07 03:31 | XRay Report ---
CHEST 1 VIEW 03/07/2021 2:16 AM INDICATION / CLINICAL INFORMATION: hypoxia. COMPARISON: One view of the chest from 03/05/2021 FINDINGS: SUPPORT DEVICES: Unchanged. HEART / MEDIASTINUM: Stable. LUNGS / PLEURA: Similar bibasilar opacities. No significant pleural effusion. No pneumothorax. ADDITIONAL FINDINGS: No significant additional findings. IMPRESSION: Stable appearance of the chest. Signer Name: Constantin Reyes MD Signed: 03/07/2021 3:27 AM Workstation Name: [id number]
[2021-03-07] MEDS: INSULIN LISPRO 100 UNIT/ML SUB-Q SCH ×4 (05:47→17:40)
[2021-03-07] MEDS: MIDODRINE 5 MG TAB PO SCH ×3 (07:59→16:18)
[2021-03-07] MEDS: HEPARIN/ 0.45% NACL DRIP 25,000 UNIT/500 ML BAG IV SCH (08:05)
[2021-03-07 08:35] LABS: Hematocrit 24.6 % (35.5-45.6); Hemoglobin 8.2 gm/dl (11.8-15.2); Mean Corpuscular HGB Conc 33 % (32-34); Mean Corpuscular Volume 100 fl (84-94); Platelet Count 171 K/mm3 (140-440); Red Blood Count 2.47 M/mm3 (3.65-5.03); Red Cell Distribution Width 18.1 % (13.2-15.2)
[2021-03-07] MEDS: fentaNYL DRIP Premix 2,000 MCG/100 ML BAG IV SCH ×2 (09:00→16:08)
[2021-03-07 09:07] LABS: C-Reactive Protein 32.5 mg/dL (0.00-1.30)
[2021-03-07 09:08] LABS: Alanine Aminotransferase 66 units/L (7-56); Albumin 2.1 g/dL (3.9-5); BUN/Creatinine Ratio 41; Blood Urea Nitrogen 45 mg/dL (9-20); Hemolysis Index 0
--- NOTE | 2021-03-07 11:09 | Consultation ---
History of Present Illness - Reason for Consult Consult date: 03/07/21 COVID-19 Requesting physician: CHAVO HERRERA - History of Present Illness The patient is a 51-year-old male with COPD, chronic respiratory failure, CHF, diabetes, DVT/PE, morbid obesity on anticoagulation was admitted to the hospital on 03/01/2021 with altered mental status and shortness of breath. Patient was noted to be in severe respiratory distress requiring intubation. Was placed on empiric antibiotics. Patient's COVID-19 test done on 03/05/2021 came back positive, hence infectious diseases was consulted. Labs from today showed normal WBC of 10, D-dimer 403, ferritin greater than 2000, AST 144, ALT 66, alkaline phosphatase 335, bilirubin 1.3, LDH 453, CRP 32.5, creatinine 1.1. Procalcitonin on 03/04/2021 was 0.89. Chest x-ray with stable bibasilar opacities. CT chest, abdomen and pelvis on admission showed some pulmonary nodules, no acute findings in the abdomen or pelvis. Review of Systems: reviewed in the chart, unable to obtain, minimize risk of transmission Past History Past Medical History: COPD, diabetes, DVT, heart failure, hypertension, renal failure (Acute on chronic renal sufficiency), other (Asthma,Sleep Apnea) Past Surgical History: No surgical history Social history: no significant social history Family history: no significant family history Medications and Allergies Allergies Allergy/AdvReac Type Severity Reaction Status Date / Time Penicillins Allergy Rash Verified 03/30/19 10:45 Home Medications Medication Instructions Recorded Confirmed Last Taken Type Fluticasone/Salmeterol [Advair 1 puff IH BID 04/27/13 01/16/14 04/27/13 History Diskus 250-50 mcg] Potassium Chloride [Klor-Con M10] 10 meq PO QDAY 04/27/13 01/16/14 04/27/13 History hydroCHLOROthiazide [Hctz] 12.5 mg PO QDAY 04/27/13 01/16/14 04/27/13 History Albuterol Sulfate [Proair 90 mcg IH Q4HR PRN #2 aer.[email or web address] 01/22/19 Unknown Rx Respiclick] Albuterol Sulfate [Albuterol 0.63% 0.63 mg IH Q4HR PRN #2 ml 01/23/19 Unknown Rx NEBS] Ipratropium [Atrovent NEB] 0.5 mg IH Q4HR #2 ml 01/23/19 Unknown Rx metFORMIN [Glucophage] 500 mg PO BID #30 tablet 03/30/19 Unknown Rx Active Meds: Active Medications Acetaminophen (Acetaminophen 325 Mg/10.15 Ml Oral Liqd Unit Dose) 650 mg F EEDTUBE Q6H PRN PRN Reason: Pain MILD(1-3)/Fever >100.5/VALDES Last Admin: 03/06/21 12:33 Dose: 650 mg Documented by: Albuterol (Albuterol 2.5 Mg/3 Ml Nebu) 2.5 mg IH Q4H PRN PRN Reason: Shortness Of Breath Lipase/Protease/Amylase (Lipase 10,500/Protease 25,000/Amylase 43,750 (Units) Dr Gutierrez) 1 each FEEDTUBE PRN PRN PRN Reason: For Clogged Feeding Tube Ascorbic Acid (Ascorbic Acid 500 Mg Tab) 500 mg PO BID [facility] Last Admin: 03/06/21 21:56 Dose: 500 mg Documented by: Aspirin (Aspirin 81 Mg Tab Chew) 81 mg PO QDAY [facility] Last Admin: 03/06/21 09:44 Dose: 81 mg Documented by: Cholecalciferol (Cholecalciferol (Vit D3) 1000 Unit (25 Mcg) Tab) 1,000 unit PO QDAY [facility] Dexamethasone (Dexamethasone 4 Mg/Ml Vial) 10 mg IV Q24H [facility] Stop: 03/15/21 15:01 Dextrose (Dextrose 50% In Water (25gm) 50 Ml Syringe) 50 ml IV Q30MIN PRN; Protocol PRN Reason: Hypoglycemia Famotidine (Famotidine 20 Mg Tab) 20 mg PO BID [facility] Last Admin: 03/06/21 21:56 Dose: 20 mg Documented by: Fentanyl (Fentanyl 100 Mcg/2 Ml Inj) 50 mcg IV Q10MIN PRN PRN Reason: ANALGESIA Last Admin: 03/03/21 12:00 Dose: 50 mcg Documented by: Heparin Sodium (Porcine) (Heparin 10,000 Units/10 Ml Vial) 5,200 unit 40 un it/kg (5200 unit) IV Q6H PRN PRN Reason: Anti-Xa Assay < 0.1 units/ml Last Admin: 03/04/21 14:50 Dose: 5,200 unit Documented by: Hydrophilic Ointment (Lip Therapy Vaseline) 1 applic TP Q2H PRN PRN Reason: Dry Lips Fentanyl Citrate (Fentanyl Drip Premix) 2,000 mcg in 100 mls @ 6.55 mls/hr IV TITR [facility]; Protocol Last Admin: 03/07/21 09:00 Dose: 3 mcg/kg/hr, 19.65 mls/hr Documented by: Heparin Sodium/Sodium Chloride (Heparin/ 0.45% Nacl-25,000 Unit/500 Ml) 25,000 unit in 500 mls @ 30 mls/hr IV TITR [facility]; Protocol Last Admin: 03/07/21 08:05 Dose: 1,500 units/hr, 30 mls/hr Documented by: REMDESIVIR 100 mg/ Sodium (Chloride) 250 mls @ 500 mls/hr IV Q24HR@2100 KYLE Stop: 03/10/21 21:29 Sodium Chloride (Nacl 0.9% 500 Ml) 1,000 mls @ 1 mls/hr IV DIRECT PRN PRN Reason: ARTERIAL LINE FLUSH Insulin Glargine (Insulin Glargine 100 Units/Ml) 10 units SUB-Q QHS KYLE Insulin Human Lispro (Insulin Lispro 100 Unit/Ml) 0 unit SUB-Q Q6HR [facility]; Protocol Last Admin: 03/07/21 06:42 Dose: 3 unit Documented by: Magnesium Hydroxide (Magnesium Hydroxide (Mom) Oral Liqd Udc) 30 ml PO Q4H PRN PRN Reason: Constipation Midodrine (Midodrine 5 Mg Tab) 10 mg PO TID@0800,1200,1600 [facility] Last Admin: 03/07/21 07:59 Dose: 10 mg Documented by: Multi-Ingred Cream/Lotion/Oil/Oint (Mineral Oil/Petrolatum, White Ophth Oint 3.5 Gm) 1 applic OU Q4HR PRN PRN Reason: Dry Eye(s) Multivitamins/Minerals (Calcium Carb/Vit D3/Minerals 600 Mg/800 Units Tab) 1 each PO BID [facility] Last Admin: 03/06/21 21:55 Dose: 1 each Documented by: Senna/Docusate Sodium (Sennosides/Docusate Sodium 8.6/50 Mg Tab) 1 tab FEEDTUBE BID [facility] Last Admin: 03/06/21 21:56 Dose: 1 tab Documented by: Simple Syrup (Simple Syrup 15 Ml) 15 ml FEEDTUBE PRN PRN PRN Reason: Hypoglycemia Simple Syrup (Simple Syrup 15 Ml) 30 ml FEEDTUBE PRN PRN PRN Reason: Hypoglycemia Sodium Bicarbonate (Sodium Bicarbonate 325 Mg Tab) 325 mg FEEDTUBE PRN PRN PRN Reason: For Clogged Feeding Tube Sodium Chloride (Sodium Chloride 0.9% 10 Ml Flush Syringe) 10 ml IV BID [facility] Last Admin: 03/07/21 07:59 Dose: Not Given Documented by: Sodium Chloride (Sodium Chloride 0.9% 10 Ml Flush Syringe) 10 ml IV PRN PRN PRN Reason: LINE FLUSH Sodium Chloride (Sodium Chloride 0.9% 50 Ml Ivpb) 50 ml IV Q24HR@2100 [facility] Stop: 03/10/21 21:01 Last Admin: 03/06/21 16:36 Dose: Not Given Documented by: Zinc Sulfate (Zinc Sulfate 220 Mg Cap) 220 mg PO BID [facility] Last Admin: 03/06/21 21:56 Dose: 220 mg Documented by: Physical Examination - Physical Exam Narrative exam: Physical Exam (reviewed in chart to minimize risk of transmission) Constitutional: deferred Head, Ears, Nose: deferred Eyes: deferred Neck: deferred Oral: deferred Cardiovascular: deferred Respiratory: deferred GI: deferred Musculoskeletal: deferred Skin: deferred Hem/Lymphatic: deferred Psych: deferred Neurological: deferred - Constitutional Vitals: Vital Signs Temp Pulse Resp BP Pulse Ox 98.9 F 80 18 139/78 97 03/07/21 07:00 03/07/21 09:00 03/07/21 09:00 03/07/21 09:00 03/07/21 09:00 Temperature -Last 24 Hours Temperature 98.9 F Temperature 100.6 F Temperature 100.4 F Temperature 100.6 F Temperature 100.1 F Temperature 101 F Results - Labs CBC & Chem 7: 03/07/21 08:16 03/07/21 08:16 Labs: Abnormal lab results 03/05/21 03/06/21 03/06/21 Range/Units Unknown 11:52 14:34 RBC (3.65-5.03) M/mm3 Hgb (11.8-15.2) gm/dl Hct (35.5-45.6) % MCV (84-94) fl MCH (28-32) pg RDW (13.2-15.2) % D-Dimer (0-234) ng/mlDDU ABG Hemoglobin (12.0-17.5) ABG Sodium (136.0-145.0) mmol/L ABG Glucose (65-95) mg/dL Sodium (137-145) mmol/L Chloride (98-107) mmol/L BUN (9-20) mg/dL Glucose (75-100) mg/dL POC Glucose 123 H (70-105) mg/dL Calcium (8.4-10.2) mg/dL Ferritin (30.0-300.0) ng/mL Total Bilirubin (0.1-1.2) mg/dL AST (5-40) units/L ALT (7-56) units/L Alkaline Phosphatase (35-129) units/L Lactate Dehydrogenase (91-180) units/L C-Reactive Protein (0.00-1.30) mg/dL Total Protein (6.3-8.2) g/dL Albumin (3.9-5) g/dL Arterial Blood Glucose (65-95) mg/dL Arterial Blood Ionized Calcium (4.6-5.3) mg/dL Urine WBC (Auto) 103.0 H (0.0-6.0) /HPF Coronavirus (PCR) Positive A (Negative) 03/06/21 03/06/21 03/07/21 Range/Units 17:45 23:36 03:00 RBC (3.65-5.03) M/mm3 Hgb (11.8-15.2) gm/dl Hct (35.5-45.6) % MCV (84-94) fl MCH (28-32) pg RDW (13.2-15.2) % D-Dimer (0-234) ng/mlDDU ABG Hemoglobin 8.9 L (12.0-17.5) ABG Sodium 131.4 L (136.0-145.0) mmol/L ABG Glucose 224 H (65-95) mg/dL Sodium (137-145) mmol/L Chloride (98-107) mmol/L BUN (9-20) mg/dL Glucose (75-100) mg/dL POC Glucose 140 H 209 H (70-105) mg/dL Calcium (8.4-10.2) mg/dL Ferritin (30.0-300.0) ng/mL Total Bilirubin (0.1-1.2) mg/dL AST (5-40) units/L ALT (7-56) units/L Alkaline Phosphatase (35-129) units/L Lactate Dehydrogenase (91-180) units/L C-Reactive Protein (0.00-1.30) mg/dL Total Protein (6.3-8.2) g/dL Albumin (3.9-5) g/dL Arterial Blood Glucose 224 H (65-95) mg/dL Arterial Blood Ionized Calcium 4.3 L (4.6-5.3) mg/dL Urine WBC (Auto) (0.0-6.0) /HPF Coronavirus (PCR) (Negative) 03/07/21 03/07/21 03/07/21 Range/Units 05:32 08:16 08:16 RBC 2.47 L (3.65-5.03) M/mm3 Hgb 8.2 L (11.8-15.2) gm/dl Hct 24.6 L (35.5-45.6) % MCV 100 H (84-94) fl MCH 33 H (28-32) pg RDW 18.1 H (13.2-15.2) % D-Dimer (0-234) ng/mlDDU ABG Hemoglobin (12.0-17.5) ABG Sodium (136.0-145.0) mmol/L ABG Glucose (65-95) mg/dL Sodium 136 L (137-145) mmol/L Chloride 95.3 L (98-107) mmol/L BUN 45 H (9-20) mg/dL Glucose 210 H (75-100) mg/dL POC Glucose 213 H (70-105) mg/dL Calcium 8.0 L (8.4-10.2) mg/dL Ferritin (30.0-300.0) ng/mL Total Bilirubin 1.30 H (0.1-1.2) mg/dL AST 144 H (5-40) units/L ALT 66 H (7-56) units/L Alkaline Phosphatase 335 H (35-129) units/L Lactate Dehydrogenase (91-180) units/L C-Reactive Protein (0.00-1.30) mg/dL Total Protein 4.9 L (6.3-8.2) g/dL Albumin 2.1 L (3.9-5) g/dL Arterial Blood Glucose (65-95) mg/dL Arterial Blood Ionized Calcium (4.6-5.3) mg/dL Urine WBC (Auto) (0.0-6.0) /HPF Coronavirus (PCR) (Negative) 03/07/21 03/07/21 03/07/21 Range/Units 08:16 08:16 08:16 RBC (3.65-5.03) M/mm3 Hgb (11.8-15.2) gm/dl Hct (35.5-45.6) % MCV (84-94) fl MCH (28-32) pg RDW (13.2-15.2) % D-Dimer 403.72 H (0-234) ng/mlDDU ABG Hemoglobin (12.0-17.5) ABG Sodium (136.0-145.0) mmol/L ABG Glucose (65-95) mg/dL Sodium (137-145) mmol/L Chloride (98-107) mmol/L BUN (9-20) mg/dL Glucose (75-100) mg/dL POC Glucose (70-105) mg/dL Calcium (8.4-10.2) mg/dL Ferritin > 2000.0 H (30.0-300.0) ng/mL Total Bilirubin (0.1-1.2) mg/dL AST (5-40) units/L ALT (7-56) units/L Alkaline Phosphatase (35-129) units/L Lactate Dehydrogenase 453 H (91-180) units/L C-Reactive Protein 32.50 H (0.00-1.30) mg/dL Total Protein (6.3-8.2) g/dL Albumin (3.9-5) g/dL Arterial Blood Glucose (65-95) mg/dL Arterial Blood Ionized Calcium (4.6-5.3) mg/dL Urine WBC (Auto) (0.0-6.0) /HPF Coronavirus (PCR) (Negative) - Imaging and Cardiology Chest x-ray: report reviewed, image reviewed (ET tube with bibasilar opacities) Assessment and Plan Cultures: SARS CoV2 PCR: Positive MRSA nasal PCR: Positive 03/01/2021 blood culture: No growth 03/01/2021 urine culture: No growth 03/02/2021 tracheal aspirate: [place] albicans 03/06/2021 blood culture: In process 03/06/2021 urine culture: No growth A/P: 51-year-old male with COPD, chronic respiratory failure, CHF, diabetes, DVT/PE, morbid obesity on anticoagulation was admitted to the hospital on 03/01/2021 with altered mental status and shortness of breath: #Bilateral pneumonia: secondary to COVID-19. Completed empiric antibiotics. #Acute hypoxic respiratory failure: Requiring mechanical ventilation. #Morbid obesity #Acute on chronic CHF #Transaminitis: Likely from COVID-19 Recs: -IV/PO Dexamethasone dose increased to 10 mg daily x 10 days, higher dose due to morbid obesity -Agree with remdesivir -Patient has been on the vent for several days, does not meet criteria for Tocilizumab -Completed empiric antibiotics. Repeat procalcitonin ordered -on heparin drip -trend ferritin, LDH, d-dimer, CRP every 2-3 days for risk stratification and to assess disease progression Van Suarez MD, FACP [facility] ([facility] O: [phone] F: [phone]
[2021-03-07] MEDS: SENNOSIDES/DOCUSATE SODIUM 8.6/50 MG TAB FEEDTUBE SCH (11:17)
[2021-03-07] MEDS: ASPIRIN 81 MG TAB CHEW PO SCH (11:17)
[2021-03-07] MEDS: CHOLECALCIFEROL (VIT D3) 1000 UNIT (25 mcg) TAB PO SCH (11:17)
[2021-03-07] MEDS: ZINC SULFATE 220 MG CAP PO SCH ×2 (11:17→21:32)
[2021-03-07] MEDS: FAMOTIDINE 20 MG TAB PO SCH ×2 (11:17→21:32)
[2021-03-07] MEDS: ASCORBIC ACID 500 MG TAB PO SCH ×2 (11:17→21:31)
--- NOTE | 2021-03-07 12:17 | Progress Note ---
Assessment and Plan HFpEF * Echo 12/13/2020 - EF 55-60%, otherwise technically difficult study. * Echo 05/2016 - LV mildly dilated, EF 55-60%, grade II diastolic dysfxn, RV mildly enlarged, normal RV sys fxn, LA mildly dilated, RA mildly dilated, mild-mod AR, mild ME, mild aortic root dilatation. * May benefit from addition of gentle IV diuresis when hemodynamically stable. COVID-19 PNA Acute hypoxic resporitary failure * Patient test positive for COVID-19 * Secondary to pna * Currently intubated. Pulmonology and infectious disease are following DVT of RLE * Continue heparin gtt. Plan to transition to Coumadin once patient is hemodynamically stable * He was diagnosed with a LLE DVT in March 2020 and appears to have been on Coumadin as an outpatient. Hypotension * Agree wtih Midodrine 10mg TID Patient seen in conjunction with Dr. Heard who agrees with this plan of care. Will continue to follow. - Patient Problems (1) ALPHONSO (acute kidney injury) Current Visit: Yes Status: Acute (2) Acute and chronic respiratory failure ([id number]) Current Visit: Yes Status: Acute (3) Acute deep vein thrombosis (DVT) of right lower extremity Current Visit: Yes Status: Acute (4) Encephalopathy Current Visit: Yes Status: Acute (5) NSTEMI (non-ST elevated myocardial infarction) Current Visit: Yes Status: Acute (6) Transaminitis Current Visit: Yes Status: Acute (7) COPD (chronic obstructive pulmonary disease) Current Visit: Yes Status: Chronic (8) Chronic heart failure with preserved ejection fraction (HFpEF) Current Visit: Yes Status: Chronic (9) DM2 (diabetes mellitus, type 2) Current Visit: Yes Status: Chronic (10) H/O: HTN (hypertension) Current Visit: Yes Status: Chronic (11) History of pulmonary embolus (PE) Current Visit: Yes Status: Chronic (12) COVID-19 Current Visit: Yes Status: Acute Subjective Date of service: 03/07/21 Principal diagnosis: NSTEMI 2 Interval history: Patient intubated. Sinus rhythm 70s on monitor with no events Objective Vital Signs Temp Pulse Pulse Pulse Resp BP Pulse Ox 03/07/21 12:00 92 H 99 H 77 9 L 151/94 97 03/07/21 11:25 98.9 F 03/07/21 11:00 62 15 102/54 99 03/07/21 10:00 71 10 L 120/63 97 03/07/21 09:00 80 18 139/78 97 03/07/21 08:00 78 99 H 77 22 131/73 98 03/07/21 07:10 80 141/77 98 03/07/21 07:00 98.9 F 82 22 141/77 98 03/07/21 06:00 68 22 116/63 99 03/07/21 05:00 76 22 121/68 97 03/07/21 04:00 100.6 F H 107 H 99 H 15 149/87 97 03/07/21 03:31 94 H 149/87 96 03/07/21 03:00 95 H 22 135/79 97 03/07/21 02:00 67 22 127/69 99 03/07/21 01:00 69 22 125/66 98 03/07/21 00:00 100.4 F H 75 99 H 21 139/77 99 03/06/21 23:35 93 H 131/71 98 03/06/21 23:00 82 22 128/72 97 03/06/21 22:00 95 H 22 146/88 97 03/06/21 21:00 83 22 138/77 98 03/06/21 20:00 100.6 F H 82 22 137/71 96 03/06/21 19:31 92 H 124/61 95 03/06/21 19:00 81 22 124/61 96 03/06/21 18:02 90 22 120/66 96 03/06/21 18:00 88 22 120/66 96 03/06/21 17:31 98 H 124/72 95 03/06/21 17:00 104 H 22 109/60 96 03/06/21 16:00 97 H 99 H 22 109/60 99 03/06/21 15:44 100.1 F H 03/06/21 15:00 97 H 22 102/53 99 03/06/21 14:00 94 H 22 96/49 99 03/06/21 13:00 104 H 22 106/57 98 03/06/21 12:55 102 H 101/50 98 - Physical Examination General: No Apparent Distress, Other (intubated) HEENT: Positive: Normocephaly Neck: Positive: trachea midline Cardiac: Positive: Reg Rate and Rhythm Lungs: Positive: Ventilated Respirations Neuro: Positive: Other (intubated) Abdomen: Positive: Soft Skin: Negative: Rash Incision: Cardiac Cath Site Musculoskeletal: No Fluid Collection Extremities: Present: lower extr. pulses, +2 Edema, warm, Other (anasarca) - Labs and Meds Cardiac Enzymes 03/07/21 03/07/21 Range/Units 08:16 08:16 AST 144 H (5-40) units/L Lactate Dehydrogenase 453 H (91-180) units/L CBC 03/07/21 Range/Units 08:16 WBC 10.0 (4.5-11.0) K/mm3 RBC 2.47 L (3.65-5.03) M/mm3 Hgb 8.2 L (11.8-15.2) gm/dl Hct 24.6 L (35.5-45.6) % Plt Count 171 (140-440) K/mm3 Comprehensive Metabolic Panel 03/07/21 Range/Units 08:16 Sodium 136 L (137-145) mmol/L Potassium 4.2 (3.6-5.0) mmol/L Chloride 95.3 L (98-107) mmol/L Carbon Dioxide 30 (22-30) mmol/L BUN 45 H (9-20) mg/dL Creatinine 1.1 (0.8-1.3) mg/dL Glucose 210 H (75-100) mg/dL Calcium 8.0 L (8.4-10.2) mg/dL AST 144 H (5-40) units/L ALT 66 H (7-56) units/L Alkaline Phosphatase 335 H (35-129) units/L Total Protein 4.9 L (6.3-8.2) g/dL Albumin 2.1 L (3.9-5) g/dL - Imaging and Cardiology EKG: report reviewed, image reviewed Echo: report reviewed (12/2020 - EF 55-60%) Cardiac cath: pending - Telemetry EKG Rhythm: Sinus Rhythm - EKG Sinus rhythms and dysrhythmias: sinus rhythm AV and intraventricular conduction: right bundle branch block Repolarization changes or abnormalities: nonspecific abnormality, ST segment, and/or T wave - Allied health notes Allied health notes reviewed: nursing
[2021-03-07] MEDS: dexAMETHasone 4 MG/ML VIAL IV SCH (12:18)
[2021-03-07] MEDS: CALCIUM CARB/VIT D3/MINERALS 600 MG/800 UNITS TAB PO SCH ×2 (12:19→21:31)
--- NOTE | 2021-03-07 13:03 | Progress Note ---
<JAVIERCHAOV EllisGauri - Last Filed: 03/07/21 13:48> Assessment and Plan Assessment and plan: This is a a 51 year old male admitted for for severe sepsis, respiratory failure, pneumonia and ALPHONSO. PMH: COPD, CHF, DM, DVT/PE, HTN, KAM, obesity, asthma PSx: none reported home meds: albuterol sulfate, advair, HCTZ, atrovent, glucophage, Klor-Con, midodrine, metoprolol, lasix, lantus, coumadin (from audit and home meds reconciliation) Social: unknown A/P Neuro: Metabolic encephalopathy -sedated with fentanyl -RASS goal 0 to -1 -Avoid delirium -Reorientation as needed -Aspiration/fall precautions -B wrist restraints for safety Cardio: SR-ST: Acute on Chronic HFpEF (per cards), NSTEMI, HTN, HLD, Prolonged QTc -Cardiology consulted, appreciate recommendations -ASA, midodrine -BP monitoring per protocol -Echo pending; per cardio he had one recently at OSH-records requested -Hold antihtn meds for now -Per cardiology: 1. gentle IV diuresis when able 2. Echo 12/13/2020 - EF 55-60%, otherwise technically difficult study. Echo 05/2016 - LV mildly dilated, EF 55-60%, grade II diastolic dysfxn, RV mildly enlarged, normal RV sys fxn, LA mildly dilated, RA mildly dilated, mild-mod AR, mild CA, mild aortic root dilatation. Resp: Acute on chronic hypoxic respiratory failure, Bilateral PNA, hx COPD, KAM, asthma, ?PE -CCM consulted, appreciate recommendations -MV, wean as tolerated -Intubated 03/01 with 8.0 OETT at 23@lip -Vent settings: AC TV 500, PEEP 10, Rate 22, on 60% FiO2 -Serial CXR and ABG -VAP bundle -Continuos SPO2 monitoring -abx with levaquin (03/02-03/07)-DC 03/05 r/t prolonged QTc -03/01 CT chest shows several pulmonary nodules within Right lung measuring 6-8 mm, increased interstitial prominence -03/07 CXR reviewed GI: Transaminitis, TF -GI consulted, appreciate recommendations -Trend LFTs -RUQ US shows no evidence of cholelithiasis, cholecytitis or choledocholithisis -CT abd/pelvis shows fatty infiltration of liver -Ntr consult for TF -PPI -BR [place] -last BM 03/06 -24 hr net (+) 808 : ALPHONSO, hyponatremia, hypochloremia -Nephrology consulted, appreciate recommendations -Pt was on HD at recent hospitalization at OSH -Renally dose mediations -Avoid nephrotoxic medications -Strict I&Os -Renal US shows no significant abnormality -Daily weights -Replete electrolytes -Trend BMP Heme: DVT-R posterior tibial vein, h/x LLE DVT (December 2019)/ PE (failed Xa inhibitors per cards; on home coumadin) -evidenced on BLE Doppler US -Heparin gtt -SCDs while in bed -Per cards: Eventually plan to transition to Coumadin ID: Severe Sepsis, B PNA, COVID 19 infection -s/p abx therapy (azithromycin 03/01-03/02, aztreonam 03/02, cefepime 03/01-03/02, levaquin 03/02-03/05, flagyl 03/01-03/02, vancomycin 03/01-03/02) -VAP bundle -MRSA (+) nares -COVID 19 PCR (+) -Decadron for 10 days (03/06-03/15) -Remdesivir (03/06-03/10) -Contact/Droplet precautions -03/01 BCx2 with NGTD -03/01 UC with NGTD -03/02 sputum culture -Reculture with next temp spike -Prone if needed -Vit C/D/Zinc Endo: DM -SSI, lantus- titrate as needed -Accuchecks q6 -Avoid hypoglycemia Lines: condom cath, PIV Disposition: ICU Full code The high probability of a clinically significant, sudden or life threatening deterioration of the [multi] system(s) required my full and direct attention, intervention and personal management. The aggregate critical care time was [60] minutes. This time is in addition to time spent performing reported procedures but includes the following: [x] Data Review and interpretation [x] Patient assessment and monitoring of vital signs [x] Documentation [x] Medication orders and management History Interval history: This is a 51-year-old -[place] male with COPD with chronic respiratory failure, CHFpEF, diabetes mellitus, DVT/PE on coumadin and hypertension who presented to [facility] via EMS for AMS and hypoxia. On arrival of EMS oxygen saturation was about 88% on room air, blood pressure was said to be about 88/50 mmHg. Work-up in the emergency room reveals leukocytosis of 12.7, hemoglobin of 9.1 and hematocrit of 27.7, sodium of 132, lactic acid of 2.90, elevated liver enzymes and elevated troponin at 0.493. A CT of the chest showed findings concerning for atelectasis and or infiltrate, CT of the head was unremarkable. Patient was in severe respiratory distress upon arrival in the emergency room and subsequently intubated. Patient was admitted to the hospitalist service with consults to cardiology, CCM, GI, and neprohology for severe sepsis, respiratory failure, pneumonia and ALPHONSO. Of note patient was admitted to [facility] from 12/12-01/14 and was on HD during that admit. 03/03/21: Patient remains intubated, continue on heparin drip, monitor H&H and BMP. Continue empiric antibiotics, ID following. Follow ammonia level and LFT. According to cardiology patient indeed had preserved EF during his recent admission to [facility]. Plan to repeat 2D echo. Critical care following, wean off from vent as tolerated. 03/04: RN reported blood y secretions in OETT and clots, heparin gtt stopped and B LE US obtained which shows DVT, abx deescalated, heparin gtt restarted. 03/05: RN reported vomiting x1, promithazine x1 given, Qtc at 599 on EKG. AM labs pending. tmax 102.2, reculture with next spike, COVID 19 PCR. abx stopped re prolonged qtc and received CAP coverage. 03/06: Reported high TF residual, COVID PCR pending. Cr better today. tmax 100.7 03/07: valerie placed yesterday, started on remdesivir re positive covid. ID consulted yesterday. SHERYL overnight. Hospitalist Physical - Constitutional Vitals: Temp Pulse Resp BP Pulse Ox 98.9 F 99 H 20 151/94 99 03/07/21 11:25 03/07/21 12:00 03/07/21 12:00 03/07/21 12:00 03/07/21 12:00 General appearance: Present: no acute distress, well-nourished, obese, other (sedated) - EENT Eyes: Present: PERRL ENT: clear oral mucosa - Neck Neck: Present: normal ROM - Respiratory Respiratory effort: normal Respiratory: bilateral: diminished - Cardiovascular Rhythm: regular Heart Sounds: Present: S1 & S2. Absent: systolic murmur, diastolic murmur - Extremities Extremities: no ischemia, pulses intact, pulses symmetrical, normal temperature, normal color Extremity abnormal: edema - Peripheral Assessment Bilateral Generalized Edema Type: Pitting Edema Degree: 2+ Capillary Refill: < 3 seconds Skin Temperature: Warm Peripheral Pulses: within normal limits - Abdominal General gastrointestinal: soft, non-tender, non-distended, normal bowel sounds - Integumentary Integumentary: Present: warm, dry - Psychiatric Psychiatric: cooperative - Neurologic Neurologic: no focal deficits - Allied Health Allied health notes reviewed: nursing, social work HEART Score - HEART Score Troponin: Troponin T 0.484 ng/mL (0.00-0.029) H* 03/01/21 20:55 Results - Labs CBC & Chem 7: 03/07/21 08:16 03/07/21 08:16 Labs: Laboratory Last Values WBC 10.0 K/mm3 (4.5-11.0) 03/07/21 08:16 RBC 2.47 M/mm3 (3.65-5.03) L 03/07/21 08:16 Hgb 8.2 gm/dl (11.8-15.2) L 03/07/21 08:16 Hct 24.6 % (35.5-45.6) L 03/07/21 08:16 MCV 100 fl (84-94) H 03/07/21 08:16 MCH 33 pg (28-32) H 03/07/21 08:16 MCHC 33 % (32-34) 03/07/21 08:16 RDW 18.1 % (13.2-15.2) H 03/07/21 08:16 Plt Count 171 K/mm3 (140-440) 03/07/21 08:16 Lymph % (Auto) 22.4 % (13.4-35.0) 03/06/21 05:20 Mills % (Auto) 4.5 % (0.0-7.3) 03/06/21 05:20 Eos % (Auto) 0.2 % (0.0-4.3) 03/06/21 05:20 Baso % (Auto) 0.3 % (0.0-1.8) 03/06/21 05:20 Lymph # (Auto) 3.4 K/mm3 (1.2-5.4) 03/06/21 05:20 Mills # (Auto) 0.7 K/mm3 (0.0-0.8) 03/06/21 05:20 Eos # (Auto) 0.0 K/mm3 (0.0-0.4) 03/06/21 05:20 Baso # (Auto) 0.1 K/mm3 (0.0-0.1) 03/06/21 05:20 Add Manual Diff Complete 03/01/21 19:21 Total Counted 100 03/01/21 19:21 Seg Neutrophils % 72.6 % (40.0-70.0) H 03/06/21 05:20 Seg Neuts % (Manual) 49.0 % (40.0-70.0) 03/01/21 19:21 Lymphocytes % (Manual) 32.0 % (13.4-35.0) 03/01/21 19:21 Monocytes % (Manual) 17.0 % (0.0-7.3) H 03/01/21 19:21 Eosinophils % (Manual) 1.0 % (0.0-4.3) 03/01/21 19:21 Basophils % (Manual) 1.0 % (0.0-1.8) 03/01/21 19:21 Nucleated RBC % Not Reportable 03/01/21 19:21 Seg Neutrophils # 11.1 K/mm3 (1.8-7.7) H 03/06/21 05:20 Seg Neutrophils # Man 6.2 K/mm3 (1.8-7.7) 03/01/21 19:21 Band Neutrophils # 0.0 K/mm3 03/01/21 19:21 Lymphocytes # (Manual) 4.1 K/mm3 (1.2-5.4) 03/01/21 19:21 Abs React Lymphs (Man) 0.0 K/mm3 03/01/21 19:21 Monocytes # (Manual) 2.2 K/mm3 (0.0-0.8) H 03/01/21 19:21 Eosinophils # (Manual) 0.1 K/mm3 (0.0-0.4) 03/01/21 19:21 Basophils # (Manual) 0.1 K/mm3 (0.0-0.1) 03/01/21 19:21 Metamyelocytes # 0.0 K/mm3 03/01/21 19:21 Myelocytes # 0.0 K/mm3 03/01/21 19:21 Promyelocytes # 0.0 K/mm3 03/01/21 19:21 Blast Cells # 0.0 K/mm3 03/01/21 19:21 WBC Morphology Not Reportable 03/01/21 19:21 Hypersegmented Neuts Not Reportable 03/01/21 19:21 Hyposegmented Neuts Not Reportable 03/01/21 19:21 Hypogranular Neuts Not Reportable 03/01/21 19:21 Smudge Cells Not Reportable 03/01/21 19:21 Toxic Granulation Not Reportable 03/01/21 19:21 Toxic Vacuolation Not Reportable 03/01/21 19:21 Dohle Bodies Not Reportable 03/01/21 19:21 Pelger-Huet Anomaly Not Reportable 03/01/21 19:21 Katherine Rods Not Reportable 03/01/21 19:21 Platelet Estimate Not Reportable 03/01/21 19:21 Clumped Platelets Not Reportable 03/01/21 19:21 Plt Clumps, EDTA Not Reportable 03/01/21 19:21 Large Platelets Not Reportable 03/01/21 19:21 Giant Platelets Not Reportable 03/01/21 19:21 Platelet Satelliting Not Reportable 03/01/21 19:21 Plt Morphology Comment Not Reportable 03/01/21 19:21 RBC Morphology Not Reportable 03/01/21 19:21 Dimorphic RBCs Not Reportable 03/01/21 19:21 Polychromasia Not Reportable 03/01/21 19:21 Hypochromasia Not Reportable 03/01/21 19:21 Poikilocytosis Not Reportable 03/01/21 19:21 Anisocytosis Rare 03/01/21 19:21 Microcytosis Not Reportable 03/01/21 19:21 Macrocytosis Not Reportable 03/01/21 19:21 Spherocytes Not Reportable 03/01/21 19:21 Pappenheimer Bodies Not Reportable 03/01/21 19:21 Sickle Cells Not Reportable 03/01/21 19:21 Target Cells Not Reportable 03/01/21 19:21 Tear Drop Cells Not Reportable 03/01/21 19:21 Ovalocytes Not Reportable 03/01/21 19:21 Helmet Cells Not Reportable 03/01/21 19:21 [place] Bodies Not Reportable 03/01/21 19:21 [place] Rings Not Reportable 03/01/21 19:21 Greene Cells Not Reportable 03/01/21 19:21 Bite Cells Not Reportable 03/01/21 19:21 Crenated Cell Not Reportable 03/01/21 19:21 Elliptocytes Not Reportable 03/01/21 19:21 Acanthocytes (Spur) Not Reportable 03/01/21 19:21 Rouleaux Not Reportable 03/01/21 19:21 Hemoglobin C Crystals Not Reportable 03/01/21 19:21 Schistocytes Few 03/01/21 19:21 Malaria parasites Not Reportable 03/01/21 19:21 Henry Bodies Not Reportable 03/01/21 19:21 Hem Pathologist Commnt No 03/01/21 19:21 PT 15.6 Sec. (12.2-14.9) H 03/04/21 10:17 INR 1.18 (0.87-1.13) H 03/04/21 10:17 APTT 36.6 Sec. (24.2-36.6) 03/02/21 16:28 D-Dimer 403.72 ng/mlDDU (0-234) H 03/07/21 08:16 Heparin Anti-Xa Level 0.59 U.I./ml (0.3-0.7) 03/06/21 20:30 ABG pH 7.448 (7.320-7.450) 03/07/21 03:00 POC ABG pCO2 43.2 mmHg (32.0-48.0) 03/07/21 03:00 POC ABG pO2 84.4 mmHg (83-108) 03/07/21 03:00 POC ABG HCO3 29.2 03/07/21 03:00 ABG O2 Saturation 95.8 (0-100) 03/07/21 03:00 POC ABG Base Excess 4.7 03/07/21 03:00 ABG Hemoglobin 8.9 (12.0-17.5) L 03/07/21 03:00 ABG Oxyhemoglobin 95.0 (94-98) 03/07/21 03:00 ABG Methemoglobin 0.3 (0.0-1.5) 03/07/21 03:00 ABG Sodium 131.4 mmol/L (136.0-145.0) L 03/07/21 03:00 ABG Potassium 4.4 mmol/L (3.40-4.50) 03/07/21 03:00 ABG Chloride 98.0 mmol/L (98-107) 03/07/21 03:00 ABG Glucose 224 mg/dL (65-95) H 03/07/21 03:00 Carboxyhemoglobin 0.5 (0.5-1.5) 03/07/21 03:00 FiO2 % 60.0 03/07/21 03:00 Sodium 136 mmol/L (137-145) L 03/07/21 08:16 Potassium 4.2 mmol/L (3.6-5.0) 03/07/21 08:16 Chloride 95.3 mmol/L (98-107) L 03/07/21 08:16 Carbon Dioxide 30 mmol/L (22-30) 03/07/21 08:16 Anion Gap 15 mmol/L 03/07/21 08:16 BUN 45 mg/dL (9-20) H 03/07/21 08:16 Creatinine 1.1 mg/dL (0.8-1.3) 03/07/21 08:16 Estimated GFR > 60 ml/min 03/07/21 08:16 BUN/Creatinine Ratio 41 % 03/07/21 08:16 Glucose 210 mg/dL (75-100) H 03/07/21 08:16 POC Glucose 205 mg/dL (70-105) H 03/07/21 11:24 Lactic Acid 1.70 mmol/L (0.7-2.0) 03/04/21 10:17 Calcium 8.0 mg/dL (8.4-10.2) L 03/07/21 08:16 Phosphorus 3.50 mg/dL (2.5-4.5) 03/06/21 05:20 Magnesium 2.00 mg/dL (1.7-2.3) 03/07/21 08:16 Ferritin > 2000.0 ng/mL (30.0-300.0) H 03/07/21 08:16 Total Bilirubin 1.30 mg/dL (0.1-1.2) H 03/07/21 08:16 Direct Bilirubin 0.6 mg/dL (0-0.2) H 03/04/21 05:26 Indirect Bilirubin 0.2 mg/dL 03/04/21 05:26 AST 144 units/L (5-40) H 03/07/21 08:16 ALT 66 units/L (7-56) H 03/07/21 08:16 Alkaline Phosphatase 335 units/L (35-129) H 03/07/21 08:16 Ammonia 71.0 umol/L (25-60) H 03/01/21 19:21 Lactate Dehydrogenase 453 units/L (91-180) H 03/07/21 08:16 Troponin T 0.484 ng/mL (0.00-0.029) H* 03/01/21 20:55 C-Reactive Protein 32.50 mg/dL (0.00-1.30) H 03/07/21 08:16 Total Protein 4.9 g/dL (6.3-8.2) L 03/07/21 08:16 Albumin 2.1 g/dL (3.9-5) L 03/07/21 08:16 Albumin/Globulin Ratio 0.8 % 03/07/21 08:16 Triglycerides 400 mg/dL (2-149) H 03/01/21 19:21 Cholesterol 232 mg/dL (50-199) H 03/01/21 19:21 LDL Cholesterol Direct 130 mg/dL (50-130) 03/01/21 19:21 HDL Cholesterol 22 mg/dL (40-59) L 03/01/21 19:21 Cholesterol/HDL Ratio 10.54 % 03/01/21 19:21 Lipase 78 units/L (13-60) H 03/04/21 10:17 Procalcitonin 0.89 ng/mL (<0.15) 03/04/21 13:04 TSH 1.840 mlU/mL (0.270-4.200) 03/03/21 04:06 Arterial Blood Glucose 224 mg/dL (65-95) H 03/07/21 03:00 Arterial Blood Ionized Calcium 4.3 mg/dL (4.6-5.3) L 03/07/21 03:00 Urine Color Ariadne (Yellow) 03/06/21 14:34 Urine Turbidity Cloudy (Clear) 03/06/21 14:34 Urine pH 5.0 (5.0-7.0) 03/06/21 14:34 Ur Specific [place] 1.014 (1.003-1.030) 03/06/21 14:34 Urine Protein 30 mg/dl mg/dL (Negative) 03/06/21 14:34 Urine Glucose (UA) Neg mg/dL (Negative) 03/06/21 14:34 Urine Ketones Neg mg/dL (Negative) 03/06/21 14:34 Urine Blood Sm (Negative) 03/06/21 14:34 Urine Nitrite Neg (Negative) 03/06/21 14:34 Urine Bilirubin Neg (Negative) 03/06/21 14:34 Urine Urobilinogen 4.0 mg/dL (<2.0) 03/06/21 14:34 Ur Leukocyte Esterase Neg (Negative) 03/06/21 14:34 Urine WBC (Auto) 103.0 /HPF (0.0-6.0) H 03/06/21 14:34 Urine RBC (Auto) 105.0 /HPF (0.0-6.0) 03/06/21 14:34 U Epithel Cells (Auto) 5.0 /HPF (0-13.0) 03/06/21 14:34 Urine Bacteria (Auto) 2+ /HPF (Negative) 03/06/21 14:34 Hyaline Casts 5 /LPF 03/06/21 14:34 Urine Mucus 1+ /HPF 03/06/21 14:34 Urine Yeast (Budding) Few /HPF 03/01/21 21:40 Urine Sperm 3+ /HPF ([employer]) 03/06/21 14:34 Nasal Screen MRSA (PCR) Positive (Negative) 03/02/21 05:00 Salicylates < 0.3 mg/dL (2.8-20.0) L 03/01/21 19:21 Urine Opiates Screen Positive 03/01/21 21:40 Urine Methadone Screen Negative 03/01/21 21:40 Acetaminophen 5.0 ug/mL (10.0-30.0) L 03/01/21 19:21 Ur Barbiturates Screen Negative 03/01/21 21:40 Ur Phencyclidine Scrn Negative 03/01/21 21:40 Ur Amphetamines Screen Negative 03/01/21 21:40 U Benzodiazepines Scrn Negative 03/01/21 21:40 Urine Cocaine Screen Negative 03/01/21 21:40 U Marijuana (THC) Screen Negative 03/01/21 21:40 Drugs of Abuse Note Disclamer 03/01/21 21:40 KARLA Screen Negative (Negative) 03/03/21 04:06 Coronavirus (PCR) Positive (Negative) A 03/05/21 Unknown Blood Type O POSITIVE 03/01/21 19:21 Antibody Screen Negative 03/01/21 19:21 Microbiology: Microbiology 03/06/21 Unknown Urine,Catheterized - Straight Catheter Urine Culture - Preliminary NO GROWTH AFTER 24 HOURS 03/01/21 19:35 Peripheral/Venous Blood Culture - Final NO GROWTH AFTER 5 DAYS 03/01/21 19:21 Peripheral/Venous Blood Culture - Final NO GROWTH AFTER 5 DAYS 03/06/21 13:47 Peripheral/Venous Blood Culture - Preliminary Culture in Progress 03/06/21 13:33 Peripheral/Venous Blood Culture - Preliminary Culture in Progress Vilchis/IV: Voiding Method Condom Catheter Active Medications - Current Medications Current Medications: Generic Name Dose Route Start Last Admin Trade Name Freq PRN Reason Stop Dose Admin Acetaminophen 650 mg 03/06/21 10:00 03/06/21 12:33 Acetaminophen 325 Mg/10.15 Ml Oral Liqd Unit Dose FEEDTUBE 650 mg Q6H PRN Administration Pain MILD(1-3)/Fever >100.5/VALDES Albuterol 2.5 mg 03/02/21 15:45 Albuterol 2.5 Mg/3 Ml Nebu IH Q4H PRN Shortness Of Breath Lipase/Protease/Amylase 1 each 03/03/21 10:53 Lipase 10,500/Protease 25,000/Amylase 43,750 (Units) Dr Gutierrez FEEDTUBE PRN PRN For Clogged Feeding Tube Ascorbic Acid 500 mg 03/06/21 22:00 03/07/21 11:17 Ascorbic Acid 500 Mg Tab PO 500 mg BID KYLE Administration Aspirin 81 mg 03/04/21 10:00 03/07/21 11:17 Aspirin 81 Mg Tab Chew PO 81 mg QDAY KYLE Administration Cholecalciferol 1,000 unit 03/07/21 10:00 03/07/21 11:17 Cholecalciferol (Vit D3) 1000 Unit (25 Mcg) Tab PO 1,000 unit QDAY KYLE Administration Dexamethasone 10 mg 03/07/21 12:00 03/07/21 12:18 Dexamethasone 4 Mg/Ml Vial IV 03/15/21 12:01 10 mg Q24H KYLE Administration Dextrose 50 ml 03/02/21 11:38 Dextrose 50% In Water (25gm) 50 Ml Syringe IV Q30MIN PRN Hypoglycemia Protocol Famotidine 20 mg 03/04/21 10:00 03/07/21 11:17 Famotidine 20 Mg Tab PO 20 mg BID KYLE Administration Fentanyl 50 mcg 03/02/21 04:16 03/03/21 12:00 Fentanyl 100 Mcg/2 Ml Inj IV 50 mcg Q10MIN PRN Administration ANALGESIA Heparin Sodium (Porcine) 5,200 unit 03/04/21 14:33 03/04/21 14:50 Heparin 10,000 Units/10 Ml Vial 40 unit/kg (5200 unit) 5,200 unit IV Administration Q6H PRN Anti-Xa Assay < 0.1 units/ml Hydrophilic Ointment 1 applic 03/02/21 15:42 Lip Therapy Vaseline TP Q2H PRN Dry Lips Fentanyl Citrate 2,000 mcg in 100 mls @ 6.55 mls/hr 03/01/21 21:30 03/07/21 09:00 Fentanyl Drip Premix IV 3 mcg/kg/hr TITR KYLE 19.65 mls/hr Administration Protocol 1 MCG/KG/HR Heparin Sodium/Sodium Chloride 25,000 unit in 500 mls @ 30 mls/hr 03/04/21 15:00 03/07/21 08:05 Heparin/ 0.45% Nacl-25,000 Unit/500 Ml IV 1,500 units/hr TITR KYLE 30 mls/hr Administration Protocol 1,500 UNITS/HR REMDESIVIR 100 mg/ Sodium 250 mls @ 500 mls/hr 03/07/21 21:00 Chloride IV 03/10/21 21:29 Q24HR@2100 KYLE Sodium Chloride 1,000 mls @ 1 mls/hr 03/06/21 18:11 Nacl 0.9% 500 Ml IV DIRECT PRN ARTERIAL LINE FLUSH Insulin Glargine 10 units 03/07/21 22:00 Insulin Glargine 100 Units/Ml SUB-Q QHS KYLE Insulin Human Lispro 0 unit 03/04/21 12:00 03/07/21 12:18 Insulin Lispro 100 Unit/Ml SUB-Q 3 unit Q6HR [facility] Administration Protocol Magnesium Hydroxide 30 ml 03/02/21 00:18 Magnesium Hydroxide (Mom) Oral Liqd Udc PO Q4H PRN Constipation Midodrine 10 mg 03/02/21 12:00 03/07/21 12:18 Midodrine 5 Mg Tab PO 10 mg TID@0800,1200,1600 [facility] Administration Multi-Ingred Cream/Lotion/Oil/Oint 1 applic 03/02/21 15:42 Mineral Oil/Petrolatum, White Ophth Oint 3.5 Gm OU Q4HR PRN Dry Eye(s) Multivitamins/Minerals 1 each 03/03/21 22:00 03/07/21 12:19 Calcium Carb/Vit D3/Minerals 600 Mg/800 Units Tab PO 1 each BID KYLE Administration Senna/Docusate Sodium 1 tab 03/02/21 22:00 03/07/21 11:17 Sennosides/Docusate Sodium 8.6/50 Mg Tab FEEDTUBE 1 tab BID KYLE Administration Simple Syrup 15 ml 03/03/21 10:53 Simple Syrup 15 Ml FEEDTUBE PRN PRN Hypoglycemia Simple Syrup 30 ml 03/03/21 10:53 Simple Syrup 15 Ml FEEDTUBE PRN PRN Hypoglycemia Sodium Bicarbonate 325 mg 03/03/21 10:53 Sodium Bicarbonate 325 Mg Tab FEEDTUBE PRN PRN For Clogged Feeding Tube Sodium Chloride 10 ml 03/02/21 10:00 03/07/21 11:18 Sodium Chloride 0.9% 10 Ml Flush Syringe IV 10 ml BID KYLE Administration Sodium Chloride 10 ml 03/02/21 00:18 Sodium Chloride 0.9% 10 Ml Flush Syringe IV PRN PRN LINE FLUSH Sodium Chloride 50 ml 03/06/21 16:00 03/06/21 16:36 Sodium Chloride 0.9% 50 Ml Ivpb IV 03/10/21 21:01 Not Given Q24HR@2100 [facility] Zinc Sulfate 220 mg 03/06/21 16:00 03/07/21 11:17 Zinc Sulfate 220 Mg Cap PO 220 mg BID KYLE Administration Nutrition/Malnutrition Assess - Dietary Evaluation Nutrition/Malnutrition Findings: Nutrition Notes Start: 03/02/21 10:10 Freq: Status: Active Protocol: Document 03/07/21 11:42 (Rec: 03/07/21 11:48 [id number]) Nutrition Notes Initial or Follow up Reassessment Current Diagnosis Acute Kidney Injury,COPD, Diabetes,Sepsis,Hypertension, Heart Failure,Respiratory Failure Other Pertinent Diagnosis pneu, AMS Current Diet Glucerna 1.2 at 65 ml/hr; Flush of 100 ml q4h Labs/Tests Na 136 BG 210 Pertinent Medications reviewed Height 5 ft 10 in Weight 131 kg [place] Body Weight (kg) 75.45 BMI 41.4 Weight Status Morbidly Obese Subjective/Other Information F/u for TF tolerance. Residuals over 300 ml yesterday. TF at 10 ml/hr and RN will increase as ppt tolerates. Will follow for tolerance. Percent of energy/protein needs met: 14%/7% Burn Absent Trauma Absent Skin Integrity/Comment 2+ non-pitting edema Current % PO Negligible Minimum of two criteria No Fluid Accumulation Mild (non-severe) #1 Nutrition Diagnosis Inadequate oral intake Diagnosis Progress(for reassessment Continues documentation) Is patient on ventilator? Yes Is Patient Ambulatory and/or Out of Bed No REE-([facility]-confined to bed) 2614.728 Kcal/Kg value to use for calculation 14 Approximate Energy Requirements Using 1834 kcal/Kg Calculation Used for Recommendations Kcal/kg Additional Notes Protein: up to 2.5g/kg IBW (< or = to 189g) Fluid: 1 ml/kcal or per MD Nutrition Intervention Change Diet Order: Continue TF as tolerated Nutrition Support: Glucerna 1.2 at 65 ml/hr Flush 100 ml q4h or per MD Kcal 1,872 Protein (gm) 94 Carbohydrates (gm) 179 Fat (gm) 94 Fluid (mL) 1,256 Goal #1 Meet at least 75% of kcal needs and protein needs as best as possible via TF Goal #2 TF tolerance Anticipated Discharge Needs: Unable to determine at this time Follow-Up By: 03/11/21 Additional Comments FU for TF at goal and tolerance <IVONNE VERGARA - Last Filed: 03/07/21 16:54> Hospitalist Physical - Constitutional Vitals: Temp Pulse Resp BP Pulse Ox 99.3 F 99 H 20 135/93 99 03/07/21 16:00 03/07/21 16:00 03/07/21 16:00 03/07/21 16:00 03/07/21 16:00 HEART Score - HEART Score Troponin: Troponin T 0.484 ng/mL (0.00-0.029) H* 03/01/21 20:55 Results - Labs CBC & Chem 7: 03/07/21 08:16 03/07/21 08:16 Labs: Laboratory Last Values WBC 10.0 K/mm3 (4.5-11.0) 03/07/21 08:16 RBC 2.47 M/mm3 (3.65-5.03) L 03/07/21 08:16 Hgb 8.2 gm/dl (11.8-15.2) L 03/07/21 08:16 Hct 24.6 % (35.5-45.6) L 03/07/21 08:16 MCV 100 fl (84-94) H 03/07/21 08:16 MCH 33 pg (28-32) H 03/07/21 08:16 MCHC 33 % (32-34) 03/07/21 08:16 RDW 18.1 % (13.2-15.2) H 03/07/21 08:16 Plt Count 171 K/mm3 (140-440) 03/07/21 08:16 Lymph % (Auto) 22.4 % (13.4-35.0) 03/06/21 05:20 Mills % (Auto) 4.5 % (0.0-7.3) 03/06/21 05:20 Eos % (Auto) 0.2 % (0.0-4.3) 03/06/21 05:20 Baso % (Auto) 0.3 % (0.0-1.8) 03/06/21 05:20 Lymph # (Auto) 3.4 K/mm3 (1.2-5.4) 03/06/21 05:20 Mills # (Auto) 0.7 K/mm3 (0.0-0.8) 03/06/21 05:20 Eos # (Auto) 0.0 K/mm3 (0.0-0.4) 03/06/21 05:20 Baso # (Auto) 0.1 K/mm3 (0.0-0.1) 03/06/21 05:20 Add Manual Diff Complete 03/01/21 19:21 Total Counted 100 03/01/21 19:21 Seg Neutrophils % 72.6 % (40.0-70.0) H 03/06/21 05:20 Seg Neuts % (Manual) 49.0 % (40.0-70.0) 03/01/21 19:21 Lymphocytes % (Manual) 32.0 % (13.4-35.0) 03/01/21 19:21 Monocytes % (Manual) 17.0 % (0.0-7.3) H 03/01/21 19:21 Eosinophils % (Manual) 1.0 % (0.0-4.3) 03/01/21 19:21 Basophils % (Manual) 1.0 % (0.0-1.8) 03/01/21 19:21 Nucleated RBC % Not Reportable 03/01/21 19:21 Seg Neutrophils # 11.1 K/mm3 (1.8-7.7) H 03/06/21 05:20 Seg Neutrophils # Man 6.2 K/mm3 (1.8-7.7) 03/01/21 19:21 Band Neutrophils # 0.0 K/mm3 03/01/21 19:21 Lymphocytes # (Manual) 4.1 K/mm3 (1.2-5.4) 03/01/21 19:21 Abs React Lymphs (Man) 0.0 K/mm3 03/01/21 19:21 Monocytes # (Manual) 2.2 K/mm3 (0.0-0.8) H 03/01/21 19:21 Eosinophils # (Manual) 0.1 K/mm3 (0.0-0.4) 03/01/21 19:21 Basophils # (Manual) 0.1 K/mm3 (0.0-0.1) 03/01/21 19:21 Metamyelocytes # 0.0 K/mm3 03/01/21 19:21 Myelocytes # 0.0 K/mm3 03/01/21 19:21 Promyelocytes # 0.0 K/mm3 03/01/21 19:21 Blast Cells # 0.0 K/mm3 07/23/21 19:21 WBC Morphology Not Reportable 03/01/21 19:21 Hypersegmented Neuts Not Reportable 03/01/21 19:21 Hyposegmented Neuts Not Reportable 03/01/21 19:21 Hypogranular Neuts Not Reportable 03/01/21 19:21 Smudge Cells Not Reportable 03/01/21 19:21 Toxic Granulation Not Reportable 03/01/21 19:21 Toxic Vacuolation Not Reportable 03/01/21 19:21 Dohle Bodies Not Reportable 03/01/21 19:21 Pelger-Huet Anomaly Not Reportable 03/01/21 19:21 Katherine Rods Not Reportable 03/01/21 19:21 Platelet Estimate Not Reportable 03/01/21 19:21 Clumped Platelets Not Reportable 03/01/21 19:21 Plt Clumps, EDTA Not Reportable 03/01/21 19:21 Large Platelets Not Reportable 03/01/21 19:21 Giant Platelets Not Reportable 03/01/21 19:21 Platelet Satelliting Not Reportable 03/01/21 19:21 Plt Morphology Comment Not Reportable 03/01/21 19:21 RBC Morphology Not Reportable 03/01/21 19:21 Dimorphic RBCs Not Reportable 03/01/21 19:21 Polychromasia Not Reportable 03/01/21 19:21 Hypochromasia Not Reportable 03/01/21 19:21 Poikilocytosis Not Reportable 03/01/21 19:21 Anisocytosis Rare 03/01/21 19:21 Microcytosis Not Reportable 03/01/21 19:21 Macrocytosis Not Reportable 03/01/21 19:21 Spherocytes Not Reportable 03/01/21 19:21 Pappenheimer Bodies Not Reportable 03/01/21 19:21 Sickle Cells Not Reportable 03/01/21 19:21 Target Cells Not Reportable 03/01/21 19:21 Tear Drop Cells Not Reportable 03/01/21 19:21 Ovalocytes Not Reportable 03/01/21 19:21 Helmet Cells Not Reportable 03/01/21 19:21 [place] Bodies Not Reportable 03/01/21 19:21 [place] Rings Not Reportable 03/01/21 19:21 Dusty Cells Not Reportable 07/23/21 19:21 Bite Cells Not Reportable 03/01/21 19:21 Crenated Cell Not Reportable 03/01/21 19:21 Elliptocytes Not Reportable 03/01/21 19:21 Acanthocytes (Spur) Not Reportable 03/01/21 19:21 Rouleaux Not Reportable 03/01/21 19:21 Hemoglobin C Crystals Not Reportable 03/01/21 19:21 Schistocytes Few 03/01/21 19:21 Malaria parasites Not Reportable 03/01/21 19:21 Henry Bodies Not Reportable 03/01/21 19:21 Hem Pathologist Commnt No 03/01/21 19:21 PT 15.6 Sec. (12.2-14.9) H 03/04/21 10:17 INR 1.18 (0.87-1.13) H 03/04/21 10:17 APTT 36.6 Sec. (24.2-36.6) 03/02/21 16:28 D-Dimer 403.72 ng/mlDDU (0-234) H 03/07/21 08:16 Heparin Anti-Xa Level 0.59 U.I./ml (0.3-0.7) 03/06/21 20:30 ABG pH 7.448 (7.320-7.450) 03/07/21 03:00 POC ABG pCO2 43.2 mmHg (32.0-48.0) 03/07/21 03:00 POC ABG pO2 84.4 mmHg (83-108) 03/07/21 03:00 POC ABG HCO3 29.2 03/07/21 03:00 ABG O2 Saturation 95.8 (0-100) 03/07/21 03:00 POC ABG Base Excess 4.7 03/07/21 03:00 ABG Hemoglobin 8.9 (12.0-17.5) L 03/07/21 03:00 ABG Oxyhemoglobin 95.0 (94-98) 03/07/21 03:00 ABG Methemoglobin 0.3 (0.0-1.5) 03/07/21 03:00 ABG Sodium 131.4 mmol/L (136.0-145.0) L 03/07/21 03:00 ABG Potassium 4.4 mmol/L (3.40-4.50) 03/07/21 03:00 ABG Chloride 98.0 mmol/L (98-107) 03/07/21 03:00 ABG Glucose 224 mg/dL (65-95) H 03/07/21 03:00 Carboxyhemoglobin 0.5 (0.5-1.5) 03/07/21 03:00 FiO2 % 60.0 03/07/21 03:00 Sodium 136 mmol/L (137-145) L 03/07/21 08:16 Potassium 4.2 mmol/L (3.6-5.0) 03/07/21 08:16 Chloride 95.3 mmol/L (98-107) L 03/07/21 08:16 Carbon Dioxide 30 mmol/L (22-30) 03/07/21 08:16 Anion Gap 15 mmol/L 03/07/21 08:16 BUN 45 mg/dL (9-20) H 03/07/21 08:16 Creatinine 1.1 mg/dL (0.8-1.3) 03/07/21 08:16 Estimated GFR > 60 ml/min 03/07/21 08:16 BUN/Creatinine Ratio 41 % 03/07/21 08:16 Glucose 210 mg/dL (75-100) H 03/07/21 08:16 POC Glucose 205 mg/dL (70-105) H 03/07/21 11:24 Lactic Acid 1.70 mmol/L (0.7-2.0) 03/04/21 10:17 Calcium 8.0 mg/dL (8.4-10.2) L 03/07/21 08:16 Phosphorus 3.50 mg/dL (2.5-4.5) 03/06/21 05:20 Magnesium 2.00 mg/dL (1.7-2.3) 03/07/21 08:16 Ferritin > 2000.0 ng/mL (30.0-300.0) H 03/07/21 08:16 Total Bilirubin 1.30 mg/dL (0.1-1.2) H 03/07/21 08:16 Direct Bilirubin 0.6 mg/dL (0-0.2) H 03/04/21 05:26 Indirect Bilirubin 0.2 mg/dL 03/04/21 05:26 AST 144 units/L (5-40) H 03/07/21 08:16 ALT 66 units/L (7-56) H 03/07/21 08:16 Alkaline Phosphatase 335 units/L (35-129) H 03/07/21 08:16 Ammonia 71.0 umol/L (25-60) H 03/01/21 19:21 Lactate Dehydrogenase 453 units/L (91-180) H 03/07/21 08:16 Troponin T 0.484 ng/mL (0.00-0.029) H* 03/01/21 20:55 C-Reactive Protein 32.50 mg/dL (0.00-1.30) H 03/07/21 08:16 Total Protein 4.9 g/dL (6.3-8.2) L 03/07/21 08:16 Albumin 2.1 g/dL (3.9-5) L 03/07/21 08:16 Albumin/Globulin Ratio 0.8 % 03/07/21 08:16 Triglycerides 400 mg/dL (2-149) H 03/01/21 19:21 Cholesterol 232 mg/dL (50-199) H 03/01/21 19:21 LDL Cholesterol Direct 130 mg/dL (50-130) 03/01/21 19:21 HDL Cholesterol 22 mg/dL (40-59) L 03/01/21 19:21 Cholesterol/HDL Ratio 10.54 % 03/01/21 19:21 Lipase 78 units/L (13-60) H 03/04/21 10:17 Procalcitonin 0.89 ng/mL (<0.15) 03/04/21 13:04 TSH 1.840 mlU/mL (0.270-4.200) 03/03/21 04:06 Arterial Blood Glucose 224 mg/dL (65-95) H 03/07/21 03:00 Arterial Blood Ionized Calcium 4.3 mg/dL (4.6-5.3) L 03/07/21 03:00 Urine Color [place] (Yellow) 03/06/21 14:34 Urine Turbidity Cloudy (Clear) 03/06/21 14:34 Urine pH 5.0 (5.0-7.0) 03/06/21 14:34 Ur Specific [place] 1.014 (1.003-1.030) 03/06/21 14:34 Urine Protein 30 mg/dl mg/dL (Negative) 03/06/21 14:34 Urine Glucose (UA) Neg mg/dL (Negative) 03/06/21 14:34 Urine Ketones Neg mg/dL (Negative) 03/06/21 14:34 Urine Blood Sm (Negative) 03/06/21 14:34 Urine Nitrite Neg (Negative) 03/06/21 14:34 Urine Bilirubin Neg (Negative) 03/06/21 14:34 Urine Urobilinogen 4.0 mg/dL (<2.0) 03/06/21 14:34 Ur Leukocyte Esterase Neg (Negative) 03/06/21 14:34 Urine WBC (Auto) 103.0 /HPF (0.0-6.0) H 03/06/21 14:34 Urine RBC (Auto) 105.0 /HPF (0.0-6.0) 03/06/21 14:34 U Epithel Cells (Auto) 5.0 /HPF (0-13.0) 03/06/21 14:34 Urine Bacteria (Auto) 2+ /HPF (Negative) 03/06/21 14:34 Hyaline Casts 5 /LPF 03/06/21 14:34 Urine Mucus 1+ /HPF 03/06/21 14:34 Urine Yeast (Budding) Few /HPF 03/01/21 21:40 Urine Sperm 3+ /HPF ([employer]) 03/06/21 14:34 Nasal Screen MRSA (PCR) Positive (Negative) 03/02/21 05:00 Salicylates < 0.3 mg/dL (2.8-20.0) L 03/01/21 19:21 Urine Opiates Screen Positive 03/01/21 21:40 Urine Methadone Screen Negative 03/01/21 21:40 Acetaminophen 5.0 ug/mL (10.0-30.0) L 03/01/21 19:21 Ur Barbiturates Screen Negative 03/01/21 21:40 Ur Phencyclidine Scrn Negative 03/01/21 21:40 Ur Amphetamines Screen Negative 03/01/21 21:40 U Benzodiazepines Scrn Negative 03/01/21 21:40 Urine Cocaine Screen Negative 03/01/21 21:40 U Marijuana (THC) Screen Negative 03/01/21 21:40 Drugs of Abuse Note Disclamer 03/01/21 21:40 KARLA Screen Negative (Negative) 03/03/21 04:06 Coronavirus (PCR) Positive (Negative) A 03/05/21 Unknown Blood Type O POSITIVE 03/01/21 19:21 Antibody Screen Negative 03/01/21 19:21 Microbiology: Microbiology 03/06/21 13:47 Peripheral/Venous Blood Culture - Preliminary NO GROWTH AFTER 24 HOURS 03/06/21 13:33 Peripheral/Venous Blood Culture - Preliminary NO GROWTH AFTER 24 HOURS 03/06/21 Unknown Urine,Catheterized - Straight Catheter Urine Culture - Preliminary NO GROWTH AFTER 24 HOURS 03/01/21 19:35 Peripheral/Venous Blood Culture - Final NO GROWTH AFTER 5 DAYS 03/01/21 19:21 Peripheral/Venous Blood Culture - Final NO GROWTH AFTER 5 DAYS Vilchis/IV: Voiding Method Condom Catheter Active Medications - Current Medications Current Medications: Generic Name Dose Route Start Last Admin Trade Name Freq PRN Reason Stop Dose Admin Acetaminophen 650 mg 03/06/21 10:00 03/06/21 12:33 Acetaminophen 325 Mg/10.15 Ml Oral Liqd Unit Dose FEEDTUBE 650 mg Q6H PRN Administration Pain MILD(1-3)/Fever >100.5/VALDES Albuterol 2.5 mg 03/02/21 15:45 Albuterol 2.5 Mg/3 Ml Nebu IH Q4H PRN Shortness Of Breath Lipase/Protease/Amylase 1 each 03/03/21 10:53 Lipase 10,500/Protease 25,000/Amylase 43,750 (Units) Dr Gutierrez FEEDTUBE PRN PRN For Clogged Feeding Tube Ascorbic Acid 500 mg 03/06/21 22:00 03/07/21 11:17 Ascorbic Acid 500 Mg Tab PO 500 mg BID KYLE Administration Aspirin 81 mg 03/04/21 10:00 03/07/21 11:17 Aspirin 81 Mg Tab Chew PO 81 mg QDAY KYLE Administration Cholecalciferol 1,000 unit 03/07/21 10:00 03/07/21 11:17 Cholecalciferol (Vit D3) 1000 Unit (25 Mcg) Tab PO 1,000 unit QDAY KYLE Administration Dexamethasone 10 mg 03/07/21 12:00 03/07/21 12:18 Dexamethasone 4 Mg/Ml Vial IV 03/15/21 12:01 10 mg Q24H KYLE Administration Dextrose 50 ml 03/02/21 11:38 Dextrose 50% In Water (25gm) 50 Ml Syringe IV Q30MIN PRN Hypoglycemia Protocol Famotidine 20 mg 03/04/21 10:00 03/07/21 11:17 Famotidine 20 Mg Tab PO 20 mg BID KYEL Administration Fentanyl 50 mcg 03/02/21 04:16 03/03/21 12:00 Fentanyl 100 Mcg/2 Ml Inj IV 50 mcg Q10MIN PRN Administration ANALGESIA Heparin Sodium (Porcine) 5,000 unit 03/07/21 16:00 Heparin 10,000 Units/10 Ml Vial IV Q6H PRN Anti-Xa Assay < 0.1 units/ml Hydrophilic Ointment 1 applic 03/02/21 15:42 Lip Therapy Vaseline TP Q2H PRN Dry Lips Fentanyl Citrate 2,000 mcg in 100 mls @ 6.55 mls/hr 03/01/21 21:30 03/07/21 16:08 Fentanyl Drip Premix IV 3 mcg/kg/hr TITR KYLE 19.65 mls/hr Administration Protocol 1 MCG/KG/HR Heparin Sodium/Sodium Chloride 25,000 unit in 500 mls @ 30 mls/hr 03/04/21 15:00 03/07/21 08:05 Heparin/ 0.45% Nacl-25,000 Unit/500 Ml IV 1,500 units/hr TITR KYLE 30 mls/hr Administration Protocol 1,500 UNITS/HR REMDESIVIR 100 mg/ Sodium 250 mls @ 500 mls/hr 03/07/21 21:00 Chloride IV 03/10/21 21:29 Q24HR@2100 KYLE Sodium Chloride 1,000 mls @ 1 mls/hr 03/06/21 18:11 Nacl 0.9% 500 Ml IV DIRECT PRN ARTERIAL LINE FLUSH Insulin Glargine 10 units 03/07/21 22:00 Insulin Glargine 100 Units/Ml SUB-Q QHS [facility] Insulin Human Lispro 0 unit 03/04/21 12:00 03/07/21 12:18 Insulin Lispro 100 Unit/Ml SUB-Q 3 unit Q6HR [facility] Administration Protocol Magnesium Hydroxide 30 ml 03/02/21 00:18 Magnesium Hydroxide (Mom) Oral Liqd Udc PO Q4H PRN Constipation Midodrine 10 mg 03/02/21 12:00 03/07/21 16:18 Midodrine 5 Mg Tab PO Not Given TID@0800,1200,1600 [facility] Multi-Ingred Cream/Lotion/Oil/Oint 1 applic 03/02/21 15:42 Mineral Oil/Petrolatum, White Ophth Oint 3.5 Gm OU Q4HR PRN Dry Eye(s) Multivitamins/Minerals 1 each 03/03/21 22:00 03/07/21 12:19 Calcium Carb/Vit D3/Minerals 600 Mg/800 Units Tab PO 1 each BID KYLE Administration Senna/Docusate Sodium 1 tab 03/02/21 22:00 03/07/21 11:17 Sennosides/Docusate Sodium 8.6/50 Mg Tab FEEDTUBE 1 tab BID KYLE Administration Simple Syrup 15 ml 03/03/21 10:53 Simple Syrup 15 Ml FEEDTUBE PRN PRN Hypoglycemia Simple Syrup 30 ml 03/03/21 10:53 Simple Syrup 15 Ml FEEDTUBE PRN PRN Hypoglycemia Sodium Bicarbonate 325 mg 03/03/21 10:53 Sodium Bicarbonate 325 Mg Tab FEEDTUBE PRN PRN For Clogged Feeding Tube Sodium Chloride 10 ml 03/02/21 10:00 03/07/21 11:18 Sodium Chloride 0.9% 10 Ml Flush Syringe IV 10 ml BID KYLE Administration Sodium Chloride 10 ml 03/02/21 00:18 Sodium Chloride 0.9% 10 Ml Flush Syringe IV PRN PRN LINE FLUSH Sodium Chloride 50 ml 03/06/21 16:00 03/06/21 16:36 Sodium Chloride 0.9% 50 Ml Ivpb IV 03/10/21 21:01 Not Given Q24HR@2100 KYLE Zinc Sulfate 220 mg 03/06/21 16:00 03/07/21 11:17 Zinc Sulfate 220 Mg Cap PO 220 mg BID KYLE Administration Nutrition/Malnutrition Assess - Dietary Evaluation Nutrition/Malnutrition Findings: Nutrition Notes Start: 03/02/21 10:10 Freq: Status: Active Protocol: Document 03/07/21 11:42 RIAN (Rec: 03/07/21 11:48 RIAN [id number]) Nutrition Notes Initial or Follow up Reassessment Current Diagnosis Acute Kidney Injury,COPD, Diabetes,Sepsis,Hypertension, Heart Failure,Respiratory Failure Other Pertinent Diagnosis pneu, AMS Current Diet Glucerna 1.2 at 65 ml/hr; Flush of 100 ml q4h Labs/Tests Na 136 BG 210 Pertinent Medications reviewed Height 5 ft 10 in Weight 131 kg [place] Body Weight (kg) 75.45 BMI 41.4 Weight Status Morbidly Obese Subjective/Other Information F/u for TF tolerance. Residuals over 300 ml yesterday. TF at 10 ml/hr and RN will increase as ppt tolerates. Will follow for tolerance. Percent of energy/protein needs met: 14%/7% Burn Absent Trauma Absent Skin Integrity/Comment 2+ non-pitting edema Current % PO Negligible Minimum of two criteria No Fluid Accumulation Mild (non-severe) #1 Nutrition Diagnosis Inadequate oral intake Diagnosis Progress(for reassessment Continues documentation) Is patient on ventilator? Yes Is Patient Ambulatory and/or Out of Bed No REE-(Banner-St. Jeor-confined to bed) 2614.728 Kcal/Kg value to use for calculation 14 Approximate Energy Requirements Using 1834 kcal/Kg Calculation Used for Recommendations Kcal/kg Additional Notes Protein: up to 2.5g/kg IBW (< or = to 189g) Fluid: 1 ml/kcal or per MD Nutrition Intervention Change Diet Order: Continue TF as tolerated Nutrition Support: Glucerna 1.2 at 65 ml/hr Flush 100 ml q4h or per MD Kcal 1,872 Protein (gm) 94 Carbohydrates (gm) 179 Fat (gm) 94 Fluid (mL) 1,256 Goal #1 Meet at least 75% of kcal needs and protein needs as best as possible via TF Goal #2 TF tolerance Anticipated Discharge Needs: Unable to determine at this time Follow-Up By: 03/11/21 Additional Comments FU for TF at goal and tolerance
--- NOTE | 2021-03-07 13:11 | Progress Note ---
Assessment and Plan Acute hypoxemic respiratory failure NSTEMI Acute kidney injury Severe sepsis Bilateral pneumonia H/O congestive heart failure Diabetes type 2 Acute encephalopathy Elevated serum transaminases Anemia that is microcytic Leukocytosis Metabolic acidosis Lactic acidosis - follow cultures - anti-infective's per ID recommendations - continue IV Heparin for VTE - keep peep at 10 cm H2O - continue care as below otherwise; - continue Daily SAT and SBT assessment as tolerated - continue to wean supplemental oxygen for target O2 sat's > 90% acutely - VAP bundle addressed - continue lung protective strategies - continue bronchodilators with pulmonary hygiene per RT - wean per pulmonary driven protocols otherwise - continue accuchecks with glycemic control per SSI (While critically ill target blood glucose of 140-180 mg/dL; avoid hypoglycemia) - sedation prn for target RASS 0 to -1 - avoid nephrotoxins, renally dose all medications - continue to avoid benzodiazepine's, reduce the possibility of delirium - complete AB's per ID rec's (Vancomycin, Levaquin) - prn analgesia per CPOT score - Maintenance of sleep-wake cycle, avoid delirium - continue enteral nutritional support at goal rate as tolerated - G.I. & VTE prophylaxis - PT/OT/ROM exercises - continue mobility protocols for pressure ulcer prophylaxis - Monitor hemodynamics closely - continue other care per attending / other consultants - discharge planning ongoing concurrently COVID SPECIFIC INTERVENTIONS - continue empiric contact and airborne isolation - Remdesivir as per ID/Pulmonary developed protocols (started) - started systemic steroids for severe COVID-19 infection empirically - follow repeat COVID tests results - started zinc and vitamin C supplementation i9f test positive - get & monitor inflammatory markers per facility protocol - ferritin, Ddimer, CRP (if test +ve) - therapeutic anticoagulation per system Protocol based on d-dimer and clinical considerations (On IV HEparin for VTE) .... Re-evaluate in am & prn CONDITION: CRITICAL PROGNOSIS: GUARDED CODE STATUS: FULL CODE The high probability of a clinically significant, sudden or life-threatening deterioration of the [respiratory, cardiovascular & neurologic] system(s) required my full and direct attention, intervention and personal management. The aggregate critical care time was [32] minutes without overlap. Time includes spent on; [x] Data Review and interpretation [x] Patient assessment and monitoring of vital signs [x] Documentation [x] Medication orders and management Subjective Date of service: 03/07/21 Principal diagnosis: Ac hypoxemic resp failure; NSTEMI; ALPHONSO; Sepsis; PNA; CHF; DM II; AMS Interval history: Patient is seen today for: Acute hypoxemic respiratory failure; NSTEMI; ALPHONSO; Severe sepsis; Pneumonia; CHF; DM II; Acute encephalopathy Seen and examined at bedside; 24hour events reviewed; nursing and respiratory care staff consulted; no adverse overnight events reported to me; resting peacefully in bed; COVID-19 test +ve; fIo2 SLOWLY IMPROVING; NO EMESIS OR OVERT ASPIRATION Objective Vital Signs - 12hr 03/07/21 03/07/21 03/07/21 02:00 03:00 03:31 Temperature Pulse Rate 67 95 H 94 H Pulse Rate [ From Monitor] Pulse Rate [ Right Dorsalis Pedis] Respiratory 22 22 Rate Blood Pressure 127/69 135/79 149/87 O2 Sat by Pulse 99 97 96 Oximetry 03/07/21 03/07/21 03/07/21 04:00 05:00 06:00 Temperature 100.6 F H Pulse Rate 107 H 76 68 Pulse Rate [ 99 H From Monitor] Pulse Rate [ Right Dorsalis Pedis] Respiratory 15 22 22 Rate Blood Pressure 149/87 121/68 116/63 O2 Sat by Pulse 97 97 99 Oximetry 03/07/21 03/07/21 03/07/21 07:00 07:10 08:00 Temperature 98.9 F Pulse Rate 82 80 78 Pulse Rate [ 99 H From Monitor] Pulse Rate [ 77 Right Dorsalis Pedis] Respiratory 22 22 Rate Blood Pressure 141/77 141/77 131/73 O2 Sat by Pulse 98 98 98 Oximetry 03/07/21 03/07/21 03/07/21 09:00 10:00 11:00 Temperature Pulse Rate 80 71 62 Pulse Rate [ From Monitor] Pulse Rate [ Right Dorsalis Pedis] Respiratory 18 10 L 15 Rate Blood Pressure 139/78 120/63 102/54 O2 Sat by Pulse 97 97 99 Oximetry 03/07/21 03/07/21 11:25 12:00 Temperature 98.9 F Pulse Rate 92 H Pulse Rate [ 99 H From Monitor] Pulse Rate [ 77 Right Dorsalis Pedis] Respiratory 9 L Rate Blood Pressure 151/94 O2 Sat by Pulse 97 Oximetry Constitutional: no acute distress, other (middle aged obese male without significant ventiulator dyssynchrony) Eyes: non-icteric ENT: oropharynx moist, other (ETT 24 cm CLINT) Neck: supple, no lymphadenopathy, no JVD, other (large circumference) Effort: mildly labored Ascultation: Bilateral: diminished breath sounds, rhonchi Percussion: Bilateral: not dull Cardiovascular: regular rate and rhythm Gastrointestinal: normoactive bowel sounds, soft, non-tender, non-distended (protuberant) Integumentary: normal Extremities: no cyanosis, pulses normal, no ischemia or petechiae, edema (trace) Neurologic: non-focal exam (grossly), pupils equal and round, CN II-XII normal, motor strength normal and Psychiatric: other (sedated) CBC and BMP: 03/08/21 06:10 03/08/21 06:10 ABG, PT/INR, D-dimer: ABG ABG pH 7.448 (7.320-7.450) 03/07/21 03:00 POC ABG pCO2 43.2 mmHg (32.0-48.0) 03/07/21 03:00 POC ABG pO2 84.4 mmHg (83-108) 03/07/21 03:00 POC ABG HCO3 29.2 03/07/21 03:00 ABG O2 Saturation 95.8 (0-100) 03/07/21 03:00 PT/INR, D-dimer PT 15.6 Sec. (12.2-14.9) H 03/04/21 10:17 INR 1.18 (0.87-1.13) H 03/04/21 10:17 D-Dimer 403.72 ng/mlDDU (0-234) H 03/07/21 08:16 Abnormal lab findings: Abnormal Labs 03/01/21 03/01/21 03/01/21 19:15 19:21 19:21 WBC 12.7 H RBC 2.77 L Hgb 9.1 L Hct 27.7 L MCV 100 H MCH 33 H RDW 18.0 H Seg Neutrophils % Monocytes % (Manual) 17.0 H Seg Neutrophils # Monocytes # (Manual) 2.2 H PT INR D-Dimer Heparin Anti-Xa Level ABG pH POC ABG pCO2 POC ABG pO2 64.9 L ABG Hemoglobin 9.3 L ABG Oxyhemoglobin 93.0 L ABG Sodium 133.8 L ABG Potassium ABG Chloride 97.0 L ABG Glucose 191 H Carboxyhemoglobin Sodium Chloride Carbon Dioxide BUN Creatinine Glucose POC Glucose Lactic Acid Calcium Phosphorus Magnesium Ferritin Total Bilirubin Direct Bilirubin AST ALT Alkaline Phosphatase Ammonia Lactate Dehydrogenase Troponin T 0.493 H* C-Reactive Protein Total Protein Albumin Triglycerides 400 H Cholesterol 232 H HDL Cholesterol 22 L Lipase Arterial Blood Glucose 191 H Arterial Blood Ionized Calcium 4.4 L Urine WBC (Auto) Salicylates Acetaminophen Coronavirus (PCR) 03/01/21 03/01/21 03/01/21 19:21 19:21 19:21 WBC RBC Hgb Hct MCV MCH RDW Seg Neutrophils % Monocytes % (Manual) Seg Neutrophils # Monocytes # (Manual) PT 16.6 H INR 1.28 H D-Dimer Heparin Anti-Xa Level ABG pH POC ABG pCO2 POC ABG pO2 ABG Hemoglobin ABG Oxyhemoglobin ABG Sodium ABG Potassium ABG Chloride ABG Glucose Carboxyhemoglobin Sodium 132 L Chloride 92.2 L Carbon Dioxide BUN 43 H Creatinine 2.4 H Glucose 190 H POC Glucose Lactic Acid 2.90 H* Calcium Phosphorus Magnesium Ferritin Total Bilirubin 1.60 H Direct Bilirubin 1.2 H AST 275 H ALT 156 H Alkaline Phosphatase 282 H Ammonia Lactate Dehydrogenase Troponin T C-Reactive Protein Total Protein 5.8 L Albumin 2.6 L Triglycerides Cholesterol HDL Cholesterol Lipase 120 H Arterial Blood Glucose Arterial Blood Ionized Calcium Urine WBC (Auto) Salicylates Acetaminophen Coronavirus (PCR) 03/01/21 03/01/21 03/01/21 19:21 19:21 19:21 WBC RBC Hgb Hct MCV MCH RDW Seg Neutrophils % Monocytes % (Manual) Seg Neutrophils # Monocytes # (Manual) PT INR D-Dimer Heparin Anti-Xa Level ABG pH POC ABG pCO2 POC ABG pO2 ABG Hemoglobin ABG Oxyhemoglobin ABG Sodium ABG Potassium ABG Chloride ABG Glucose Carboxyhemoglobin Sodium Chloride Carbon Dioxide BUN Creatinine Glucose POC Glucose Lactic Acid Calcium Phosphorus Magnesium Ferritin Total Bilirubin Direct Bilirubin AST ALT Alkaline Phosphatase Ammonia 71.0 H Lactate Dehydrogenase Troponin T C-Reactive Protein Total Protein Albumin Triglycerides Cholesterol HDL Cholesterol Lipase Arterial Blood Glucose Arterial Blood Ionized Calcium Urine WBC (Auto) Salicylates < 0.3 L Acetaminophen 5.0 L Coronavirus (PCR) 03/01/21 03/01/21 03/02/21 20:55 20:55 00:01 WBC RBC Hgb Hct MCV MCH RDW Seg Neutrophils % Monocytes % (Manual) Seg Neutrophils # Monocytes # (Manual) PT INR D-Dimer Heparin Anti-Xa Level ABG pH 7.234 L POC ABG pCO2 POC ABG pO2 240.5 H ABG Hemoglobin 9.3 L ABG Oxyhemoglobin 99.1 H ABG Sodium 135.3 L ABG Potassium ABG Chloride ABG Glucose 286 H Carboxyhemoglobin 0.3 L Sodium Chloride Carbon Dioxide BUN Creatinine Glucose POC Glucose Lactic Acid 4.30 H* Calcium Phosphorus Magnesium Ferritin Total Bilirubin Direct Bilirubin AST ALT Alkaline Phosphatase Ammonia Lactate Dehydrogenase Troponin T 0.484 H* C-Reactive Protein Total Protein Albumin Triglycerides Cholesterol HDL Cholesterol Lipase Arterial Blood Glucose 286 H Arterial Blood Ionized Calcium Urine WBC (Auto) Salicylates Acetaminophen Coronavirus (PCR) 03/02/21 03/02/21 03/02/21 03:42 05:23 06:35 WBC RBC Hgb Hct MCV MCH RDW Seg Neutrophils % Monocytes % (Manual) Seg Neutrophils # Monocytes # (Manual) PT INR D-Dimer Heparin Anti-Xa Level ABG pH 7.225 L POC ABG pCO2 POC ABG pO2 181.8 H ABG Hemoglobin 9.4 L ABG Oxyhemoglobin 98.6 H ABG Sodium 132.1 L ABG Potassium 5.0 H ABG Chloride ABG Glucose 454 H Carboxyhemoglobin 0.3 L Sodium Chloride Carbon Dioxide BUN Creatinine Glucose POC Glucose 410 H Lactic Acid 7.50 H* Calcium Phosphorus Magnesium Ferritin Total Bilirubin Direct Bilirubin AST ALT Alkaline Phosphatase Ammonia Lactate Dehydrogenase Troponin T C-Reactive Protein Total Protein Albumin Triglycerides Cholesterol HDL Cholesterol Lipase Arterial Blood Glucose 454 H Arterial Blood Ionized Calcium 4.2 L Urine WBC (Auto) Salicylates Acetaminophen Coronavirus (PCR) 03/02/21 03/02/21 03/02/21 10:48 10:48 10:48 WBC RBC Hgb Hct MCV MCH RDW Seg Neutrophils % Monocytes % (Manual) Seg Neutrophils # Monocytes # (Manual) PT INR D-Dimer Heparin Anti-Xa Level ABG pH POC ABG pCO2 POC ABG pO2 ABG Hemoglobin ABG Oxyhemoglobin ABG Sodium ABG Potassium ABG Chloride ABG Glucose Carboxyhemoglobin Sodium 132 L Chloride 93.3 L Carbon Dioxide 20 L BUN 46 H Creatinine 1.9 H Glucose 503 H* POC Glucose Lactic Acid 3.40 H* Calcium 7.9 L Phosphorus 5.80 H Magnesium Ferritin Total Bilirubin Direct Bilirubin AST ALT Alkaline Phosphatase Ammonia Lactate Dehydrogenase Troponin T C-Reactive Protein Total Protein Albumin Triglycerides Cholesterol HDL Cholesterol Lipase Arterial Blood Glucose Arterial Blood Ionized Calcium Urine WBC (Auto) Salicylates Acetaminophen Coronavirus (PCR) 03/02/21 03/02/21 03/02/21 11:23 11:38 15:33 WBC RBC Hgb Hct MCV MCH RDW Seg Neutrophils % Monocytes % (Manual) Seg Neutrophils # Monocytes # (Manual) PT INR D-Dimer Heparin Anti-Xa Level ABG pH 7.318 L POC ABG pCO2 POC ABG pO2 ABG Hemoglobin 9.2 L ABG Oxyhemoglobin ABG Sodium 133.2 L ABG Potassium ABG Chloride ABG Glucose 504 H Carboxyhemoglobin 0.3 L Sodium Chloride Carbon Dioxide BUN Creatinine Glucose POC Glucose 468 H 445 H Lactic Acid Calcium Phosphorus Magnesium Ferritin Total Bilirubin Direct Bilirubin AST ALT Alkaline Phosphatase Ammonia Lactate Dehydrogenase Troponin T C-Reactive Protein Total Protein Albumin Triglycerides Cholesterol HDL Cholesterol Lipase Arterial Blood Glucose 504 H Arterial Blood Ionized Calcium 4.2 L Urine WBC (Auto) Salicylates Acetaminophen Coronavirus (PCR) 03/02/21 03/02/21 03/02/21 16:28 16:28 16:28 WBC RBC Hgb 8.8 L Hct 26.0 L MCV MCH RDW Seg Neutrophils % Monocytes % (Manual) Seg Neutrophils # Monocytes # (Manual) PT 15.2 H INR 1.14 H D-Dimer Heparin Anti-Xa Level ABG pH POC ABG pCO2 POC ABG pO2 ABG Hemoglobin ABG Oxyhemoglobin ABG Sodium ABG Potassium ABG Chloride ABG Glucose Carboxyhemoglobin Sodium 135 L Chloride 93.8 L Carbon Dioxide BUN 48 H Creatinine 1.8 H Glucose 454 H POC Glucose Lactic Acid Calcium 7.6 L Phosphorus Magnesium Ferritin Total Bilirubin Direct Bilirubin AST ALT Alkaline Phosphatase Ammonia Lactate Dehydrogenase Troponin T C-Reactive Protein Total Protein Albumin Triglycerides Cholesterol HDL Cholesterol Lipase Arterial Blood Glucose Arterial Blood Ionized Calcium Urine WBC (Auto) Salicylates Acetaminophen Coronavirus (PCR) 03/02/21 03/02/21 03/02/21 17:39 18:52 20:09 WBC RBC Hgb Hct MCV MCH RDW Seg Neutrophils % Monocytes % (Manual) Seg Neutrophils # Monocytes # (Manual) PT INR D-Dimer Heparin Anti-Xa Level ABG pH POC ABG pCO2 POC ABG pO2 ABG Hemoglobin ABG Oxyhemoglobin ABG Sodium ABG Potassium ABG Chloride ABG Glucose Carboxyhemoglobin Sodium Chloride Carbon Dioxide BUN Creatinine Glucose POC Glucose 404 H 357 H 347 H Lactic Acid Calcium Phosphorus Magnesium Ferritin Total Bilirubin Direct Bilirubin AST ALT Alkaline Phosphatase Ammonia Lactate Dehydrogenase Troponin T C-Reactive Protein Total Protein Albumin Triglycerides Cholesterol HDL Cholesterol Lipase Arterial Blood Glucose Arterial Blood Ionized Calcium Urine WBC (Auto) Salicylates Acetaminophen Coronavirus (PCR) 03/02/21 03/02/21 03/02/21 21:03 22:00 22:55 WBC RBC Hgb Hct MCV MCH RDW Seg Neutrophils % Monocytes % (Manual) Seg Neutrophils # Monocytes # (Manual) PT INR D-Dimer Heparin Anti-Xa Level ABG pH POC ABG pCO2 POC ABG pO2 ABG Hemoglobin ABG Oxyhemoglobin ABG Sodium ABG Potassium ABG Chloride ABG Glucose Carboxyhemoglobin Sodium Chloride Carbon Dioxide BUN Creatinine Glucose POC Glucose 307 H 270 H 237 H Lactic Acid Calcium Phosphorus Magnesium Ferritin Total Bilirubin Direct Bilirubin AST ALT Alkaline Phosphatase Ammonia Lactate Dehydrogenase Troponin T C-Reactive Protein Total Protein Albumin Triglycerides Cholesterol HDL Cholesterol Lipase Arterial Blood Glucose Arterial Blood Ionized Calcium Urine WBC (Auto) Salicylates Acetaminophen Coronavirus (PCR) 03/03/21 03/03/21 03/03/21 00:02 00:57 02:01 WBC RBC Hgb Hct MCV MCH RDW Seg Neutrophils % Monocytes % (Manual) Seg Neutrophils # Monocytes # (Manual) PT INR D-Dimer Heparin Anti-Xa Level ABG pH POC ABG pCO2 POC ABG pO2 ABG Hemoglobin ABG Oxyhemoglobin ABG Sodium ABG Potassium ABG Chloride ABG Glucose Carboxyhemoglobin Sodium Chloride Carbon Dioxide BUN Creatinine Glucose POC Glucose 252 H 214 H 261 H Lactic Acid Calcium Phosphorus Magnesium Ferritin Total Bilirubin Direct Bilirubin AST ALT Alkaline Phosphatase Ammonia Lactate Dehydrogenase Troponin T C-Reactive Protein Total Protein Albumin Triglycerides Cholesterol HDL Cholesterol Lipase Arterial Blood Glucose Arterial Blood Ionized Calcium Urine WBC (Auto) Salicylates Acetaminophen Coronavirus (PCR) 03/03/21 03/03/21 03/03/21 03:07 03:10 03:50 WBC 13.7 H RBC 2.69 L Hgb 8.7 L Hct 26.9 L MCV 100 H MCH RDW 18.5 H Seg Neutrophils % 79.0 H Monocytes % (Manual) Seg Neutrophils # 10.8 H Monocytes # (Manual) PT INR D-Dimer Heparin Anti-Xa Level ABG pH POC ABG pCO2 50.9 H POC ABG pO2 81.9 L ABG Hemoglobin 8.7 L ABG Oxyhemoglobin ABG Sodium 134.2 L ABG Potassium ABG Chloride 96.0 L ABG Glucose 279 H Carboxyhemoglobin 0.4 L Sodium Chloride Carbon Dioxide BUN Creatinine Glucose POC Glucose 276 H Lactic Acid Calcium Phosphorus Magnesium Ferritin Total Bilirubin Direct Bilirubin AST ALT Alkaline Phosphatase Ammonia Lactate Dehydrogenase Troponin T C-Reactive Protein Total Protein Albumin Triglycerides Cholesterol HDL Cholesterol Lipase Arterial Blood Glucose 279 H Arterial Blood Ionized Calcium 3.9 L Urine WBC (Auto) Salicylates Acetaminophen Coronavirus (PCR) 03/03/21 03/03/21 03/03/21 03:50 04:06 04:32 WBC RBC Hgb Hct MCV MCH RDW Seg Neutrophils % Monocytes % (Manual) Seg Neutrophils # Monocytes # (Manual) PT INR D-Dimer Heparin Anti-Xa Level ABG pH POC ABG pCO2 POC ABG pO2 ABG Hemoglobin ABG Oxyhemoglobin ABG Sodium ABG Potassium ABG Chloride ABG Glucose Carboxyhemoglobin Sodium Chloride 94.2 L Carbon Dioxide BUN 45 H Creatinine 1.9 H Glucose 261 H POC Glucose 256 H Lactic Acid Calcium 7.3 L Phosphorus Magnesium Ferritin Total Bilirubin Direct Bilirubin 0.9 H AST 208 H ALT 148 H Alkaline Phosphatase 251 H Ammonia Lactate Dehydrogenase Troponin T C-Reactive Protein Total Protein 5.5 L Albumin 2.4 L Triglycerides Cholesterol HDL Cholesterol Lipase Arterial Blood Glucose Arterial Blood Ionized Calcium Urine WBC (Auto) Salicylates Acetaminophen Coronavirus (PCR) 03/03/21 03/03/21 03/03/21 05:23 06:06 07:07 WBC RBC Hgb Hct MCV MCH RDW Seg Neutrophils % Monocytes % (Manual) Seg Neutrophils # Monocytes # (Manual) PT INR D-Dimer Heparin Anti-Xa Level ABG pH POC ABG pCO2 POC ABG pO2 ABG Hemoglobin ABG Oxyhemoglobin ABG Sodium ABG Potassium ABG Chloride ABG Glucose Carboxyhemoglobin Sodium Chloride Carbon Dioxide BUN Creatinine Glucose POC Glucose 214 H 249 H 237 H Lactic Acid Calcium Phosphorus Magnesium Ferritin Total Bilirubin Direct Bilirubin AST ALT Alkaline Phosphatase Ammonia Lactate Dehydrogenase Troponin T C-Reactive Protein Total Protein Albumin Triglycerides Cholesterol HDL Cholesterol Lipase Arterial Blood Glucose Arterial Blood Ionized Calcium Urine WBC (Auto) Salicylates Acetaminophen Coronavirus (PCR) 03/03/21 03/03/21 03/03/21 07:58 08:58 09:52 WBC RBC Hgb Hct MCV MCH RDW Seg Neutrophils % Monocytes % (Manual) Seg Neutrophils # Monocytes # (Manual) PT INR D-Dimer Heparin Anti-Xa Level ABG pH POC ABG pCO2 POC ABG pO2 ABG Hemoglobin ABG Oxyhemoglobin ABG Sodium ABG Potassium ABG Chloride ABG Glucose Carboxyhemoglobin Sodium Chloride Carbon Dioxide BUN Creatinine Glucose POC Glucose 227 H 215 H 207 H Lactic Acid Calcium Phosphorus Magnesium Ferritin Total Bilirubin Direct Bilirubin AST ALT Alkaline Phosphatase Ammonia Lactate Dehydrogenase Troponin T C-Reactive Protein Total Protein Albumin Triglycerides Cholesterol HDL Cholesterol Lipase Arterial Blood Glucose Arterial Blood Ionized Calcium Urine WBC (Auto) Salicylates Acetaminophen Coronavirus (PCR) 03/03/21 03/03/21 03/03/21 10:55 11:44 12:53 WBC RBC Hgb Hct MCV MCH RDW Seg Neutrophils % Monocytes % (Manual) Seg Neutrophils # Monocytes # (Manual) PT INR D-Dimer Heparin Anti-Xa Level ABG pH POC ABG pCO2 POC ABG pO2 ABG Hemoglobin ABG Oxyhemoglobin ABG Sodium ABG Potassium ABG Chloride ABG Glucose Carboxyhemoglobin Sodium Chloride Carbon Dioxide BUN Creatinine Glucose POC Glucose 198 H 210 H 203 H Lactic Acid Calcium Phosphorus Magnesium Ferritin Total Bilirubin Direct Bilirubin AST ALT Alkaline Phosphatase Ammonia Lactate Dehydrogenase Troponin T C-Reactive Protein Total Protein Albumin Triglycerides Cholesterol HDL Cholesterol Lipase Arterial Blood Glucose Arterial Blood Ionized Calcium Urine WBC (Auto) Salicylates Acetaminophen Coronavirus (PCR) 03/03/21 03/03/21 03/03/21 13:53 14:58 15:23 WBC RBC Hgb Hct MCV MCH RDW Seg Neutrophils % Monocytes % (Manual) Seg Neutrophils # Monocytes # (Manual) PT INR D-Dimer Heparin Anti-Xa Level ABG pH POC ABG pCO2 POC ABG pO2 ABG Hemoglobin ABG Oxyhemoglobin ABG Sodium ABG Potassium ABG Chloride ABG Glucose Carboxyhemoglobin Sodium Chloride Carbon Dioxide BUN Creatinine Glucose POC Glucose 210 H 187 H Lactic Acid 3.10 H* Calcium Phosphorus Magnesium Ferritin Total Bilirubin Direct Bilirubin AST ALT Alkaline Phosphatase Ammonia Lactate Dehydrogenase Troponin T C-Reactive Protein Total Protein Albumin Triglycerides Cholesterol HDL Cholesterol Lipase Arterial Blood Glucose Arterial Blood Ionized Calcium Urine WBC (Auto) Salicylates Acetaminophen Coronavirus (PCR) 03/03/21 03/03/21 03/03/21 15:51 16:25 16:53 WBC RBC Hgb Hct MCV MCH RDW Seg Neutrophils % Monocytes % (Manual) Seg Neutrophils # Monocytes # (Manual) PT INR D-Dimer Heparin Anti-Xa Level ABG pH POC ABG pCO2 POC ABG pO2 ABG Hemoglobin ABG Oxyhemoglobin ABG Sodium ABG Potassium ABG Chloride ABG Glucose Carboxyhemoglobin Sodium Chloride 91.0 L Carbon Dioxide 34 H BUN 47 H Creatinine 1.7 H Glucose 190 H POC Glucose 182 H 179 H Lactic Acid Calcium 7.6 L Phosphorus Magnesium Ferritin Total Bilirubin Direct Bilirubin AST ALT Alkaline Phosphatase Ammonia Lactate Dehydrogenase Troponin T C-Reactive Protein Total Protein Albumin Triglycerides Cholesterol HDL Cholesterol Lipase Arterial Blood Glucose Arterial Blood Ionized Calcium Urine WBC (Auto) Salicylates Acetaminophen Coronavirus (PCR) 03/03/21 03/03/21 03/03/21 17:55 19:37 20:57 WBC RBC Hgb Hct MCV MCH RDW Seg Neutrophils % Monocytes % (Manual) Seg Neutrophils # Monocytes # (Manual) PT INR D-Dimer Heparin Anti-Xa Level ABG pH POC ABG pCO2 POC ABG pO2 ABG Hemoglobin ABG Oxyhemoglobin ABG Sodium ABG Potassium ABG Chloride ABG Glucose Carboxyhemoglobin Sodium Chloride Carbon Dioxide BUN Creatinine Glucose POC Glucose 185 H 174 H 175 H Lactic Acid Calcium Phosphorus Magnesium Ferritin Total Bilirubin Direct Bilirubin AST ALT Alkaline Phosphatase Ammonia Lactate Dehydrogenase Troponin T C-Reactive Protein Total Protein Albumin Triglycerides Cholesterol HDL Cholesterol Lipase Arterial Blood Glucose Arterial Blood Ionized Calcium Urine WBC (Auto) Salicylates Acetaminophen Coronavirus (PCR) 03/03/21 03/03/21 03/03/21 22:02 22:56 23:10 WBC RBC Hgb Hct MCV MCH RDW Seg Neutrophils % Monocytes % (Manual) Seg Neutrophils # Monocytes # (Manual) PT INR D-Dimer Heparin Anti-Xa Level 0.75 H ABG pH POC ABG pCO2 POC ABG pO2 ABG Hemoglobin ABG Oxyhemoglobin ABG Sodium ABG Potassium ABG Chloride ABG Glucose Carboxyhemoglobin Sodium Chloride Carbon Dioxide BUN Creatinine Glucose POC Glucose 170 H 160 H Lactic Acid Calcium Phosphorus Magnesium Ferritin Total Bilirubin Direct Bilirubin AST ALT Alkaline Phosphatase Ammonia Lactate Dehydrogenase Troponin T C-Reactive Protein Total Protein Albumin Triglycerides Cholesterol HDL Cholesterol Lipase Arterial Blood Glucose Arterial Blood Ionized Calcium Urine WBC (Auto) Salicylates Acetaminophen Coronavirus (PCR) 03/03/21 03/04/21 03/04/21 23:42 00:52 01:55 WBC RBC Hgb Hct MCV MCH RDW Seg Neutrophils % Monocytes % (Manual) Seg Neutrophils # Monocytes # (Manual) PT INR D-Dimer Heparin Anti-Xa Level ABG pH POC ABG pCO2 POC ABG pO2 ABG Hemoglobin ABG Oxyhemoglobin ABG Sodium ABG Potassium ABG Chloride ABG Glucose Carboxyhemoglobin Sodium Chloride Carbon Dioxide BUN Creatinine Glucose POC Glucose 161 H 167 H 119 H Lactic Acid Calcium Phosphorus Magnesium Ferritin Total Bilirubin Direct Bilirubin AST ALT Alkaline Phosphatase Ammonia Lactate Dehydrogenase Troponin T C-Reactive Protein Total Protein Albumin Triglycerides Cholesterol HDL Cholesterol Lipase Arterial Blood Glucose Arterial Blood Ionized Calcium Urine WBC (Auto) Salicylates Acetaminophen Coronavirus (PCR) 03/04/21 03/04/21 03/04/21 02:58 03:47 04:03 WBC RBC Hgb Hct MCV MCH RDW Seg Neutrophils % Monocytes % (Manual) Seg Neutrophils # Monocytes # (Manual) PT INR D-Dimer Heparin Anti-Xa Level ABG pH POC ABG pCO2 57.3 H POC ABG pO2 63.7 L ABG Hemoglobin 8.4 L ABG Oxyhemoglobin 88.6 L ABG Sodium 132.5 L ABG Potassium 3.2 L ABG Chloride 94.0 L ABG Glucose 129 H Carboxyhemoglobin Sodium Chloride Carbon Dioxide BUN Creatinine Glucose POC Glucose 111 H 122 H Lactic Acid Calcium Phosphorus Magnesium Ferritin Total Bilirubin Direct Bilirubin AST ALT Alkaline Phosphatase Ammonia Lactate Dehydrogenase Troponin T C-Reactive Protein Total Protein Albumin Triglycerides Cholesterol HDL Cholesterol Lipase Arterial Blood Glucose 129 H Arterial Blood Ionized Calcium 3.8 L Urine WBC (Auto) Salicylates Acetaminophen Coronavirus (PCR) 03/04/21 03/04/21 03/04/21 05:15 05:26 05:26 WBC RBC Hgb 7.9 L Hct 23.7 L MCV MCH RDW Seg Neutrophils % Monocytes % (Manual) Seg Neutrophils # Monocytes # (Manual) PT INR D-Dimer Heparin Anti-Xa Level ABG pH POC ABG pCO2 POC ABG pO2 ABG Hemoglobin ABG Oxyhemoglobin ABG Sodium ABG Potassium ABG Chloride ABG Glucose Carboxyhemoglobin Sodium Chloride Carbon Dioxide BUN Creatinine Glucose POC Glucose 127 H Lactic Acid Calcium Phosphorus Magnesium Ferritin Total Bilirubin Direct Bilirubin 0.6 H AST 123 H ALT 105 H Alkaline Phosphatase 232 H Ammonia Lactate Dehydrogenase Troponin T C-Reactive Protein Total Protein 4.8 L Albumin 2.2 L Triglycerides Cholesterol HDL Cholesterol Lipase Arterial Blood Glucose Arterial Blood Ionized Calcium Urine WBC (Auto) Salicylates Acetaminophen Coronavirus (PCR) 03/04/21 03/04/21 03/04/21 05:26 06:01 06:53 WBC RBC Hgb Hct MCV MCH RDW Seg Neutrophils % Monocytes % (Manual) Seg Neutrophils # Monocytes # (Manual) PT INR D-Dimer Heparin Anti-Xa Level 0.71 H ABG pH POC ABG pCO2 POC ABG pO2 ABG Hemoglobin ABG Oxyhemoglobin ABG Sodium ABG Potassium ABG Chloride ABG Glucose Carboxyhemoglobin Sodium Chloride Carbon Dioxide BUN Creatinine Glucose POC Glucose 120 H 117 H Lactic Acid Calcium Phosphorus Magnesium Ferritin Total Bilirubin Direct Bilirubin AST ALT Alkaline Phosphatase Ammonia Lactate Dehydrogenase Troponin T C-Reactive Protein Total Protein Albumin Triglycerides Cholesterol HDL Cholesterol Lipase Arterial Blood Glucose Arterial Blood Ionized Calcium Urine WBC (Auto) Salicylates Acetaminophen Coronavirus (PCR) 03/04/21 03/04/21 03/04/21 07:57 10:17 10:17 WBC RBC 2.51 L Hgb 8.3 L Hct 25.3 L MCV 101 H MCH 33 H RDW 18.5 H Seg Neutrophils % Monocytes % (Manual) Seg Neutrophils # Monocytes # (Manual) PT INR D-Dimer Heparin Anti-Xa Level ABG pH POC ABG pCO2 POC ABG pO2 ABG Hemoglobin ABG Oxyhemoglobin ABG Sodium ABG Potassium ABG Chloride ABG Glucose Carboxyhemoglobin Sodium 136 L Chloride 93.1 L Carbon Dioxide 33 H BUN 46 H Creatinine 1.4 H Glucose 151 H POC Glucose 129 H Lactic Acid Calcium 7.5 L Phosphorus Magnesium Ferritin Total Bilirubin Direct Bilirubin AST 126 H ALT 100 H Alkaline Phosphatase 226 H Ammonia Lactate Dehydrogenase Troponin T C-Reactive Protein Total Protein 5.0 L Albumin 2.2 L Triglycerides Cholesterol HDL Cholesterol Lipase Arterial Blood Glucose Arterial Blood Ionized Calcium Urine WBC (Auto) Salicylates Acetaminophen Coronavirus (PCR) 03/04/21 03/04/21 03/04/21 10:17 10:17 11:26 WBC RBC Hgb Hct MCV MCH RDW Seg Neutrophils % Monocytes % (Manual) Seg Neutrophils # Monocytes # (Manual) PT 15.6 H INR 1.18 H D-Dimer Heparin Anti-Xa Level ABG pH POC ABG pCO2 POC ABG pO2 ABG Hemoglobin ABG Oxyhemoglobin ABG Sodium ABG Potassium ABG Chloride ABG Glucose Carboxyhemoglobin Sodium Chloride Carbon Dioxide BUN Creatinine Glucose POC Glucose 167 H Lactic Acid Calcium Phosphorus Magnesium Ferritin Total Bilirubin Direct Bilirubin AST ALT Alkaline Phosphatase Ammonia Lactate Dehydrogenase Troponin T C-Reactive Protein Total Protein Albumin Triglycerides Cholesterol HDL Cholesterol Lipase 78 H Arterial Blood Glucose Arterial Blood Ionized Calcium Urine WBC (Auto) Salicylates Acetaminophen Coronavirus (PCR) 03/04/21 03/04/21 03/04/21 13:04 16:26 17:58 WBC RBC Hgb 7.7 L Hct 23.2 L MCV MCH RDW Seg Neutrophils % Monocytes % (Manual) Seg Neutrophils # Monocytes # (Manual) PT INR D-Dimer Heparin Anti-Xa Level < 0.10 L ABG pH POC ABG pCO2 POC ABG pO2 ABG Hemoglobin ABG Oxyhemoglobin ABG Sodium ABG Potassium ABG Chloride ABG Glucose Carboxyhemoglobin Sodium Chloride Carbon Dioxide BUN Creatinine Glucose POC Glucose 167 H Lactic Acid Calcium Phosphorus Magnesium Ferritin Total Bilirubin Direct Bilirubin AST ALT Alkaline Phosphatase Ammonia Lactate Dehydrogenase Troponin T C-Reactive Protein Total Protein Albumin Triglycerides Cholesterol HDL Cholesterol Lipase Arterial Blood Glucose Arterial Blood Ionized Calcium Urine WBC (Auto) Salicylates Acetaminophen Coronavirus (PCR) 03/04/21 03/05/21 03/05/21 23:47 04:00 05:06 WBC RBC Hgb Hct MCV MCH RDW Seg Neutrophils % Monocytes % (Manual) Seg Neutrophils # Monocytes # (Manual) PT INR D-Dimer Heparin Anti-Xa Level ABG pH POC ABG pCO2 POC ABG pO2 129.1 H ABG Hemoglobin 8.3 L ABG Oxyhemoglobin ABG Sodium 131.4 L ABG Potassium ABG Chloride 95.0 L ABG Glucose 153 H Carboxyhemoglobin Sodium Chloride Carbon Dioxide BUN Creatinine Glucose POC Glucose 153 H 139 H Lactic Acid Calcium Phosphorus Magnesium Ferritin Total Bilirubin Direct Bilirubin AST ALT Alkaline Phosphatase Ammonia Lactate Dehydrogenase Troponin T C-Reactive Protein Total Protein Albumin Triglycerides Cholesterol HDL Cholesterol Lipase Arterial Blood Glucose 153 H Arterial Blood Ionized Calcium Urine WBC (Auto) Salicylates Acetaminophen Coronavirus (PCR) 03/05/21 03/05/21 03/05/21 11:43 13:35 13:35 WBC RBC 2.38 L Hgb 7.8 L Hct 23.8 L MCV 100 H MCH 33 H RDW 18.2 H Seg Neutrophils % Monocytes % (Manual) Seg Neutrophils # Monocytes # (Manual) PT INR D-Dimer Heparin Anti-Xa Level ABG pH POC ABG pCO2 POC ABG pO2 ABG Hemoglobin ABG Oxyhemoglobin ABG Sodium ABG Potassium ABG Chloride ABG Glucose Carboxyhemoglobin Sodium Chloride 94.4 L Carbon Dioxide BUN 49 H Creatinine 1.6 H Glucose 165 H POC Glucose 174 H Lactic Acid Calcium 7.5 L Phosphorus Magnesium Ferritin Total Bilirubin Direct Bilirubin AST ALT Alkaline Phosphatase Ammonia Lactate Dehydrogenase Troponin T C-Reactive Protein Total Protein Albumin Triglycerides Cholesterol HDL Cholesterol Lipase Arterial Blood Glucose Arterial Blood Ionized Calcium Urine WBC (Auto) Salicylates Acetaminophen Coronavirus (PCR) 03/05/21 03/05/21 03/05/21 17:57 21:27 Unknown WBC RBC Hgb Hct MCV MCH RDW Seg Neutrophils % Monocytes % (Manual) Seg Neutrophils # Monocytes # (Manual) PT INR D-Dimer Heparin Anti-Xa Level ABG pH POC ABG pCO2 POC ABG pO2 ABG Hemoglobin ABG Oxyhemoglobin ABG Sodium ABG Potassium ABG Chloride ABG Glucose Carboxyhemoglobin Sodium Chloride Carbon Dioxide BUN Creatinine Glucose POC Glucose 129 H 129 H Lactic Acid Calcium Phosphorus Magnesium Ferritin Total Bilirubin Direct Bilirubin AST ALT Alkaline Phosphatase Ammonia Lactate Dehydrogenase Troponin T C-Reactive Protein Total Protein Albumin Triglycerides Cholesterol HDL Cholesterol Lipase Arterial Blood Glucose Arterial Blood Ionized Calcium Urine WBC (Auto) Salicylates Acetaminophen Coronavirus (PCR) Positive A 03/06/21 03/06/21 03/06/21 03:30 04:30 05:20 WBC 15.2 H RBC 2.48 L Hgb 8.2 L Hct 24.9 L MCV 100 H MCH 33 H RDW 18.6 H Seg Neutrophils % 72.6 H Monocytes % (Manual) Seg Neutrophils # 11.1 H Monocytes # (Manual) PT INR D-Dimer Heparin Anti-Xa Level ABG pH POC ABG pCO2 49.7 H POC ABG pO2 65.1 L ABG Hemoglobin 9.1 L ABG Oxyhemoglobin 90.2 L ABG Sodium 131.2 L ABG Potassium ABG Chloride 96.0 L ABG Glucose 133 H Carboxyhemoglobin Sodium Chloride Carbon Dioxide BUN Creatinine Glucose POC Glucose Lactic Acid Calcium Phosphorus Magnesium Ferritin Total Bilirubin Direct Bilirubin AST ALT Alkaline Phosphatase Ammonia Lactate Dehydrogenase Troponin T C-Reactive Protein 27.90 H Total Protein Albumin Triglycerides Cholesterol HDL Cholesterol Lipase Arterial Blood Glucose 133 H Arterial Blood Ionized Calcium 4.2 L Urine WBC (Auto) Salicylates Acetaminophen Coronavirus (PCR) 03/06/21 03/06/21 03/06/21 05:20 05:30 11:52 WBC RBC Hgb Hct MCV MCH RDW Seg Neutrophils % Monocytes % (Manual) Seg Neutrophils # Monocytes # (Manual) PT INR D-Dimer Heparin Anti-Xa Level ABG pH POC ABG pCO2 POC ABG pO2 ABG Hemoglobin ABG Oxyhemoglobin ABG Sodium ABG Potassium ABG Chloride ABG Glucose Carboxyhemoglobin Sodium 135 L Chloride 94.5 L Carbon Dioxide BUN 49 H Creatinine Glucose 121 H POC Glucose 123 H 123 H Lactic Acid Calcium 7.3 L Phosphorus Magnesium 1.50 L Ferritin Total Bilirubin Direct Bilirubin AST 120 H ALT 74 H Alkaline Phosphatase 306 H Ammonia Lactate Dehydrogenase Troponin T C-Reactive Protein Total Protein 4.5 L Albumin 2.0 L Triglycerides Cholesterol HDL Cholesterol Lipase Arterial Blood Glucose Arterial Blood Ionized Calcium Urine WBC (Auto) Salicylates Acetaminophen Coronavirus (PCR) 03/06/21 03/06/21 03/06/21 14:34 17:45 23:36 WBC RBC Hgb Hct MCV MCH RDW Seg Neutrophils % Monocytes % (Manual) Seg Neutrophils # Monocytes # (Manual) PT INR D-Dimer Heparin Anti-Xa Level ABG pH POC ABG pCO2 POC ABG pO2 ABG Hemoglobin ABG Oxyhemoglobin ABG Sodium ABG Potassium ABG Chloride ABG Glucose Carboxyhemoglobin Sodium Chloride Carbon Dioxide BUN Creatinine Glucose POC Glucose 140 H 209 H Lactic Acid Calcium Phosphorus Magnesium Ferritin Total Bilirubin Direct Bilirubin AST ALT Alkaline Phosphatase Ammonia Lactate Dehydrogenase Troponin T C-Reactive Protein Total Protein Albumin Triglycerides Cholesterol HDL Cholesterol Lipase Arterial Blood Glucose Arterial Blood Ionized Calcium Urine WBC (Auto) 103.0 H Salicylates Acetaminophen Coronavirus (PCR) 03/07/21 03/07/21 03/07/21 03:00 05:32 08:16 WBC RBC Hgb Hct MCV MCH RDW Seg Neutrophils % Monocytes % (Manual) Seg Neutrophils # Monocytes # (Manual) PT INR D-Dimer Heparin Anti-Xa Level ABG pH POC ABG pCO2 POC ABG pO2 ABG Hemoglobin 8.9 L ABG Oxyhemoglobin ABG Sodium 131.4 L ABG Potassium ABG Chloride ABG Glucose 224 H Carboxyhemoglobin Sodium 136 L Chloride 95.3 L Carbon Dioxide BUN 45 H Creatinine Glucose 210 H POC Glucose 213 H Lactic Acid Calcium 8.0 L Phosphorus Magnesium Ferritin Total Bilirubin 1.30 H Direct Bilirubin AST 144 H ALT 66 H Alkaline Phosphatase 335 H Ammonia Lactate Dehydrogenase Troponin T C-Reactive Protein Total Protein 4.9 L Albumin 2.1 L Triglycerides Cholesterol HDL Cholesterol Lipase Arterial Blood Glucose 224 H Arterial Blood Ionized Calcium 4.3 L Urine WBC (Auto) Salicylates Acetaminophen Coronavirus (PCR) 03/07/21 03/07/21 03/07/21 08:16 08:16 08:16 WBC RBC 2.47 L Hgb 8.2 L Hct 24.6 L MCV 100 H MCH 33 H RDW 18.1 H Seg Neutrophils % Monocytes % (Manual) Seg Neutrophils # Monocytes # (Manual) PT INR D-Dimer 403.72 H Heparin Anti-Xa Level ABG pH POC ABG pCO2 POC ABG pO2 ABG Hemoglobin ABG Oxyhemoglobin ABG Sodium ABG Potassium ABG Chloride ABG Glucose Carboxyhemoglobin Sodium Chloride Carbon Dioxide BUN Creatinine Glucose POC Glucose Lactic Acid Calcium Phosphorus Magnesium Ferritin Total Bilirubin Direct Bilirubin AST ALT Alkaline Phosphatase Ammonia Lactate Dehydrogenase 453 H Troponin T C-Reactive Protein 32.50 H Total Protein Albumin Triglycerides Cholesterol HDL Cholesterol Lipase Arterial Blood Glucose Arterial Blood Ionized Calcium Urine WBC (Auto) Salicylates Acetaminophen Coronavirus (PCR) 03/07/21 03/07/21 08:16 11:24 WBC RBC Hgb Hct MCV MCH RDW Seg Neutrophils % Monocytes % (Manual) Seg Neutrophils # Monocytes # (Manual) PT INR D-Dimer Heparin Anti-Xa Level ABG pH POC ABG pCO2 POC ABG pO2 ABG Hemoglobin ABG Oxyhemoglobin ABG Sodium ABG Potassium ABG Chloride ABG Glucose Carboxyhemoglobin Sodium Chloride Carbon Dioxide BUN Creatinine Glucose POC Glucose 205 H Lactic Acid Calcium Phosphorus Magnesium Ferritin > 2000.0 H Total Bilirubin Direct Bilirubin AST ALT Alkaline Phosphatase Ammonia Lactate Dehydrogenase Troponin T C-Reactive Protein Total Protein Albumin Triglycerides Cholesterol HDL Cholesterol Lipase Arterial Blood Glucose Arterial Blood Ionized Calcium Urine WBC (Auto) Salicylates Acetaminophen Coronavirus (PCR) Chest x-ray: image reviewed Allied health notes reviewed: nursing
[2021-03-07] MEDS ORDERED: HEPARIN 10,000 UNITS/10 ML VIAL IV PRN (16:00)
[2021-03-07] MEDS: REMDESIVIR 100 MG in SODIUM CHLORIDE 0.9% 250ML 250 ML IV SCH (21:30)
[2021-03-07] MEDS: SODIUM CHLORIDE 0.9% 50 ML IVPB IV SCH (21:31)
[2021-03-07] MEDS ORDERED: INSULIN GLARGINE 100 UNITS/ML SUB-Q SCH (22:00)
[2021-03-08] MEDS: HEPARIN/ 0.45% NACL DRIP 25,000 UNIT/500 ML BAG IV SCH (01:15)
[2021-03-08] MEDS: fentaNYL DRIP Premix 2,000 MCG/100 ML BAG IV SCH ×5 (01:56→18:29)
--- NOTE | 2021-03-08 02:45 | XRay Report ---
CHEST 1 VIEW 03/08/2021 1:21 AM INDICATION / CLINICAL INFORMATION: Respiratory failure. COMPARISON: One view of the chest from 03/07/2021 FINDINGS: SUPPORT DEVICES: Unchanged. HEART / MEDIASTINUM: Stable. LUNGS / PLEURA: Increased bilateral pleural-parenchymal opacities. No pneumothorax. ADDITIONAL FINDINGS: No significant additional findings. IMPRESSION: Increased bilateral pleural-parenchymal opacities. No other significant interval changes. Signer Name: Constantin Reyes MD Signed: 03/08/2021 2:40 AM Workstation Name: [id number]
[2021-03-08] MEDS: SENNOSIDES/DOCUSATE SODIUM 8.6/50 MG TAB FEEDTUBE SCH ×3 (06:24→22:33)
[2021-03-08] MEDS: INSULIN LISPRO 100 UNIT/ML SUB-Q SCH ×5 (06:25→23:33)
[2021-03-08 06:37] LABS: Hemoglobin 8.4 gm/dl (11.8-15.2); Mean Corpuscular HGB Conc 32 % (32-34); Mean Corpuscular Volume 100 fl (84-94); Platelet Count 169 K/mm3 (140-440); Red Blood Count 2.62 M/mm3 (3.65-5.03)
[2021-03-08 07:32] LABS: Alanine Aminotransferase 68 units/L (7-56); Albumin 1.9 g/dL (3.9-5); BUN/Creatinine Ratio 45; Blood Urea Nitrogen 49 mg/dL (9-20); Calcium 8.7 mg/dL (8.4-10.2); Hemolysis Index 0
[2021-03-08] MEDS ORDERED: hydrALAZINE 20 MG/1 ML INJ IV PRN ×2 (08:45→09:00)
[2021-03-08] MEDS: MIDODRINE 5 MG TAB PO SCH ×2 (09:46→12:26)
[2021-03-08] MEDS: CHOLECALCIFEROL (VIT D3) 1000 UNIT (25 mcg) TAB PO SCH (10:36)
[2021-03-08] MEDS: CALCIUM CARB/VIT D3/MINERALS 600 MG/800 UNITS TAB PO SCH ×2 (10:36→21:47)
[2021-03-08] MEDS: ASPIRIN 81 MG TAB CHEW PO SCH (10:36)
[2021-03-08] MEDS: ASCORBIC ACID 500 MG TAB PO SCH ×2 (10:36→22:33)
[2021-03-08] MEDS: FAMOTIDINE 20 MG TAB PO SCH ×2 (10:36→22:33)
[2021-03-08] MEDS: ZINC SULFATE 220 MG CAP PO SCH ×2 (10:36→22:34)
--- NOTE | 2021-03-08 11:17 | Progress Note ---
Assessment and Plan Cultures: SARS CoV2 PCR: Positive MRSA nasal PCR: Positive 03/01/2021 blood culture: No growth 03/01/2021 urine culture: No growth 03/02/2021 tracheal aspirate: [place] albicans 03/06/2021 blood culture: no growth 03/06/2021 urine culture: No growth A/P: 51-year-old male with COPD, chronic respiratory failure, CHF, diabetes, DVT/PE, morbid obesity on anticoagulation was admitted to the hospital on 03/01/2021 with altered mental status and shortness of breath: #Bilateral pneumonia: secondary to COVID-19. Completed empiric antibiotics. #Acute hypoxic respiratory failure: Requiring mechanical ventilation. #Morbid obesity #Acute on chronic CHF #Transaminitis: Likely from COVID-19. Elevated LFTs with elevated alkaline phosphatase: RUQ ultrasound did not reveal any evidence of cholelithiasis, cholecystitis or choledocholithiasis. #Acute RLE DVT: On anticoagulation Recs: -IV/PO Dexamethasone 10 mg daily x 10 days, higher dose due to morbid obesity -Continue with remdesivir -Patient has been on the vent for several days, does not meet criteria for Tocilizumab -Completed empiric antibiotics -on heparin drip -trend ferritin, LDH, d-dimer, CRP every 2-3 days for risk stratification and to assess disease progression -guarded prognosis Van Suarez MD, FACP [facility] ([facility] O: [phone] F: [phone] Subjective Date of service: 03/08/21 Principal diagnosis: Ac hypoxemic resp failure; NSTEMI; ALPHONSO; Sepsis; PNA; CHF; DM II; AMS Interval history: Afebrile. Remains on the vent. Objective - Exam Narrative Exam: Physical Exam (reviewed in chart to minimize risk of transmission) Constitutional: deferred Head, Ears, Nose: deferred Eyes: deferred Neck: deferred Oral: deferred Cardiovascular: deferred Respiratory: deferred GI: deferred Musculoskeletal: deferred Skin: deferred Hem/Lymphatic: deferred Psych: deferred Neurological: deferred - Constitutional Vitals: Vital Signs Temp Pulse Resp BP Pulse Ox 98.2 F 86 21 185/100 96 03/08/21 07:00 03/08/21 10:00 03/08/21 10:00 03/08/21 08:00 03/08/21 10:00 Temperature -Last 24 Hours Temperature 98.2 F Temperature 99.3 F Temperature 98.8 F Temperature 98.3 F Temperature 99.3 F Temperature 99.3 F Temperature 98.9 F - Labs CBC & Chem 7: 03/08/21 06:10 03/08/21 06:10 Labs: Abnormal lab results 03/07/21 03/07/21 03/07/21 Range/Units 11:24 17:22 Unknown RBC (3.65-5.03) M/mm3 Hgb (11.8-15.2) gm/dl Hct (35.5-45.6) % MCV (84-94) fl RDW (13.2-15.2) % Heparin Anti-Xa Level 0.94 H (0.3-0.7) U.I./ml ABG pH (7.320-7.450) POC ABG pO2 (83-108) mmHg ABG Hemoglobin (12.0-17.5) ABG Oxyhemoglobin (94-98) ABG Sodium (136.0-145.0) mmol/L ABG Glucose (65-95) mg/dL Carboxyhemoglobin (0.5-1.5) BUN (9-20) mg/dL Glucose (75-100) mg/dL POC Glucose 205 H 211 H (70-105) mg/dL AST (5-40) units/L ALT (7-56) units/L Alkaline Phosphatase (35-129) units/L Total Protein (6.3-8.2) g/dL Albumin (3.9-5) g/dL Arterial Blood Glucose (65-95) mg/dL Arterial Blood Ionized Calcium (4.6-5.3) mg/dL 03/08/21 03/08/21 03/08/21 Range/Units 00:05 04:00 05:27 RBC (3.65-5.03) M/mm3 Hgb (11.8-15.2) gm/dl Hct (35.5-45.6) % MCV (84-94) fl RDW (13.2-15.2) % Heparin Anti-Xa Level (0.3-0.7) U.I./ml ABG pH 7.452 H (7.320-7.450) POC ABG pO2 75.5 L (83-108) mmHg ABG Hemoglobin 10.0 L (12.0-17.5) ABG Oxyhemoglobin 93.5 L (94-98) ABG Sodium 134.7 L (136.0-145.0) mmol/L ABG Glucose 268 H (65-95) mg/dL Carboxyhemoglobin 0.3 L (0.5-1.5) BUN (9-20) mg/dL Glucose (75-100) mg/dL POC Glucose 253 H 273 H (70-105) mg/dL AST (5-40) units/L ALT (7-56) units/L Alkaline Phosphatase (35-129) units/L Total Protein (6.3-8.2) g/dL Albumin (3.9-5) g/dL Arterial Blood Glucose 268 H (65-95) mg/dL Arterial Blood Ionized Calcium 4.5 L (4.6-5.3) mg/dL 03/08/21 03/08/21 Range/Units 06:10 06:10 RBC 2.62 L (3.65-5.03) M/mm3 Hgb 8.4 L (11.8-15.2) gm/dl Hct 26.0 L (35.5-45.6) % MCV 100 H (84-94) fl RDW 18.0 H (13.2-15.2) % Heparin Anti-Xa Level (0.3-0.7) U.I./ml ABG pH (7.320-7.450) POC ABG pO2 (83-108) mmHg ABG Hemoglobin (12.0-17.5) ABG Oxyhemoglobin (94-98) ABG Sodium (136.0-145.0) mmol/L ABG Glucose (65-95) mg/dL Carboxyhemoglobin (0.5-1.5) BUN 49 H (9-20) mg/dL Glucose 280 H (75-100) mg/dL POC Glucose (70-105) mg/dL AST 130 H (5-40) units/L ALT 68 H (7-56) units/L Alkaline Phosphatase 440 H (35-129) units/L Total Protein 5.3 L (6.3-8.2) g/dL Albumin 1.9 L (3.9-5) g/dL Arterial Blood Glucose (65-95) mg/dL Arterial Blood Ionized Calcium (4.6-5.3) mg/dL - Imaging and cardiology Chest x-ray: report reviewed, image reviewed (b/l infiltrates)
--- NOTE | 2021-03-08 12:34 | Progress Note ---
Assessment and Plan Assessment and plan: This is a a 51 year old male admitted for for severe sepsis, respiratory failure, pneumonia and ALPHONSO. PMH: COPD, CHF, DM, DVT/PE, HTN, KAM, obesity, asthma PSx: none reported home meds: albuterol sulfate, advair, HCTZ, atrovent, glucophage, Klor-Con, midodrine, metoprolol, lasix, lantus, coumadin (from audit and home meds reconciliation) Social: unknown A/P Neuro: Metabolic encephalopathy -sedated with fentanyl -RASS goal 0 to -1 -Avoid delirium -Reorientation as needed -Aspiration/fall precautions -B wrist restraints for safety Cardio: SR: Acute on Chronic HFpEF (per cards), NSTEMI, h/o HTN, HLD, Prolonged QTc -Cardiology consulted, appreciate recommendations -midodrine d/c -BP monitoring per protocol -Metoprolol BID with hold parameters -Per cardiology: 1. gentle IV diuresis when able 2. Echo 12/13/2020 - EF 55-60%, otherwise technically difficult study. Echo 05/2016 - LV mildly dilated, EF 55-60%, grade II diastolic dysfxn, RV mildly enlarged, normal RV sys fxn, LA mildly dilated, RA mildly dilated, mild-mod AR, mild AK, mild aortic root dilatation. Resp: Acute on chronic hypoxic respiratory failure, Bilateral PNA, hx COPD, KAM, asthma, ?PE -CCM consulted, appreciate recommendations -MV, wean as tolerated -Intubated 03/01 with 8.0 OETT at 23@lip -Vent settings: AC TV 500, PEEP 10, Rate 18, on 55% FiO2 -Serial CXR and ABG -VAP bundle -Continuos SPO2 monitoring -abx with levaquin (03/02-03/07)-DC 03/05 r/t prolonged QTc -03/01 CT chest shows several pulmonary nodules within Right lung measuring 6-8 mm, increased interstitial prominence -03/08 CXR reviewed GI: Transaminitis, TF -GI consulted, appreciate recommendations -Trend LFTs -RUQ US shows no evidence of cholelithiasis, cholecytitis or choledocholithisis -CT abd/pelvis shows fatty infiltration of liver -Ntr consult for TF -PPI -BR [place] -last BM 03/06 -24 hr net (-) 130 : ALPHONSO (stable) -Nephrology consulted, appreciate recommendations -Pt was on HD at recent hospitalization at OSH -Renally dose mediations -Avoid nephrotoxic medications -Strict I&Os -Renal US shows no significant abnormality -Daily weights -Replete electrolytes -Trend BMP Heme: DVT-R posterior tibial vein, h/x LLE DVT (December 2019)/ PE (failed Xa inh ibitors per cards; on home coumadin) -evidenced on BLE Doppler US -Heparin gtt -SCDs while in bed -Per cards: Eventually plan to transition to Coumadin ID: Severe Sepsis, B PNA, COVID 19 infection -s/p abx therapy (azithromycin 03/01-03/02, aztreonam 03/02, cefepime 03/01-03/02, levaquin 03/02-03/05, flagyl 03/01-03/02, vancomycin 03/01-03/02) -VAP bundle -MRSA (+) nares -COVID 19 PCR (+) -Decadron for 10 days (03/06-03/15) -Remdesivir (03/06-03/10) -Contact/Droplet precautions -03/01 BCx2 with NGTD -03/01 UC with NGTD -03/02 sputum culture -Reculture with next temp spike -Prone if needed -Vit C/D/Zinc Endo: DM -SSI, lantus (titrate as needed) -Accuchecks q6 -Avoid hypoglycemia Lines: condom cath, PIV Disposition: ICU Full code The high probability of a clinically significant, sudden or life threatening deterioration of the [multi] system(s) required my full and direct attention, intervention and personal management. The aggregate critical care time was [60] minutes. This time is in addition to time spent performing reported procedures b ut includes the following: [x] Data Review and interpretation [x] Patient assessment and monitoring of vital signs [x] Documentation [x] Medication orders and management Disposition Plan: ICU Total Time Spent with Patient (Minutes): 60 History Interval history: This is a 51-year-old -Citizen Of [place] male with COPD with chronic respiratory failure, CHFpEF, diabetes mellitus, DVT/PE on coumadin and hypertension who presented to [facility] via EMS for AMS and hypoxia. On arrival of EMS oxygen saturation was about 88% on room air, blood pressure was said to be about 88/50 mmHg. Work-up in the emergency room reveals leukocytosis of 12.7, hemoglobin of 9.1 and hematocrit of 27.7, sodium of 132, lactic acid of 2.90, elevated liver enzymes and elevated troponin at 0.493. A CT of the chest showed findings concerning for atelectasis and or infiltrate, CT of the head was unremarkable. Patient was in severe respiratory distress upon arrival in the emergency room and subsequently intubated. Patient was admitted to the hospitalist service with consults to cardiology, CCM, GI, and neprohology for severe sepsis, respiratory failure, pneumonia and ALPHONSO. Of note patient was admitted to [facility] 12/12-01/14 and was on HD during that admit. 03/03/21: Patient remains intubated, continue on heparin drip, monitor H&H and BMP. Continue empiric antibiotics, ID following. Follow ammonia level and LFT. According to cardiology patient indeed had preserved EF during his recent admission to [place]. Plan to repeat 2D echo. Critical care following, wean off from vent as tolerated. 03/04: RN reported blood y secretions in OETT and clots, heparin gtt stopped and B LE US obtained which shows DVT, abx deescalated, heparin gtt restarted. 03/05: RN reported vomiting x1, promithazine x1 given, Qtc at 599 on EKG. AM labs pending. tmax 102.2, reculture with next spike, COVID 19 PCR. abx stopped re prolonged qtc and received CAP coverage. 03/06: Reported high TF residual, COVID PCR pending. Cr better today. tmax 100.7 03/07: valerie placed yesterday, started on remdesivir re positive covid. ID consulted yesterday. SHERYL overnight. 03/08: SHERYL reported overnight. Patient is now hypertensive and midodrine has been held. Will now place on low dose antihtn and prn hydral. Hospitalist Physical - Constitutional Vitals: Temp Pulse Resp BP Pulse Ox 98.8 F 89 13 185/100 97 03/08/21 11:41 03/08/21 12:00 03/08/21 12:00 03/08/21 08:00 03/08/21 12:00 General appearance: Present: no acute distress, well-nourished, obese, other (sedated) - EENT Eyes: Present: PERRL, EOM intact ENT: clear oral mucosa - Neck Neck: Present: normal ROM - Respiratory Respiratory effort: normal Respiratory: bilateral: diminished - Cardiovascular Rhythm: regular Heart Sounds: Present: S1 & S2. Absent: systolic murmur, diastolic murmur - Extremities Extremities: no ischemia, pulses intact, pulses symmetrical, normal temperature, normal color Extremity abnormal: edema Peripheral Pulses: within normal limits - Abdominal General gastrointestinal: soft, non-tender, non-distended, normal bowel sounds - Integumentary Integumentary: Present: warm, dry - Psychiatric Psychiatric: cooperative - Neurologic Neurologic: no focal deficits - Allied Health Allied health notes reviewed: nursing, RT, social work HEART Score - HEART Score Troponin: Troponin T 0.484 ng/mL (0.00-0.029) H* 03/01/21 20:55 Results - Labs CBC & Chem 7: 03/08/21 06:10 03/08/21 06:10 Labs: Laboratory Last Values WBC 8.8 K/mm3 (4.5-11.0) 03/08/21 06:10 RBC 2.62 M/mm3 (3.65-5.03) L 03/08/21 06:10 Hgb 8.4 gm/dl (11.8-15.2) L 03/08/21 06:10 Hct 26.0 % (35.5-45.6) L 03/08/21 06:10 MCV 100 fl (84-94) H 03/08/21 06:10 MCH 32 pg (28-32) 03/08/21 06:10 MCHC 32 % (32-34) 03/08/21 06:10 RDW 18.0 % (13.2-15.2) H 03/08/21 06:10 Plt Count 169 K/mm3 (140-440) 03/08/21 06:10 Lymph % (Auto) 22.4 % (13.4-35.0) 03/06/21 05:20 [place] % (Auto) 4.5 % (0.0-7.3) 03/06/21 05:20 Eos % (Auto) 0.2 % (0.0-4.3) 03/06/21 05:20 Baso % (Auto) 0.3 % (0.0-1.8) 03/06/21 05:20 Lymph # (Auto) 3.4 K/mm3 (1.2-5.4) 03/06/21 05:20 [place] # (Auto) 0.7 K/mm3 (0.0-0.8) 03/06/21 05:20 Eos # (Auto) 0.0 K/mm3 (0.0-0.4) 03/06/21 05:20 Baso # (Auto) 0.1 K/mm3 (0.0-0.1) 03/06/21 05:20 Add Manual Diff Complete 03/01/21 19:21 Total Counted 100 03/01/21 19:21 Seg Neutrophils % 72.6 % (40.0-70.0) H 03/06/21 05:20 Seg Neuts % (Manual) 49.0 % (40.0-70.0) 03/01/21 19:21 Lymphocytes % (Manual) 32.0 % (13.4-35.0) 03/01/21 19:21 Monocytes % (Manual) 17.0 % (0.0-7.3) H 03/01/21 19:21 Eosinophils % (Manual) 1.0 % (0.0-4.3) 03/01/21 19:21 Basophils % (Manual) 1.0 % (0.0-1.8) 03/01/21 19:21 Nucleated RBC % Not Reportable 03/01/21 19:21 Seg Neutrophils # 11.1 K/mm3 (1.8-7.7) H 03/06/21 05:20 Seg Neutrophils # Man 6.2 K/mm3 (1.8-7.7) 03/01/21 19:21 Band Neutrophils # 0.0 K/mm3 03/01/21 19:21 Lymphocytes # (Manual) 4.1 K/mm3 (1.2-5.4) 03/01/21 19:21 Abs React Lymphs (Man) 0.0 K/mm3 03/01/21 19:21 Monocytes # (Manual) 2.2 K/mm3 (0.0-0.8) H 03/01/21 19:21 Eosinophils # (Manual) 0.1 K/mm3 (0.0-0.4) 03/01/21 19:21 Basophils # (Manual) 0.1 K/mm3 (0.0-0.1) 03/01/21 19:21 Metamyelocytes # 0.0 K/mm3 03/01/21 19:21 Myelocytes # 0.0 K/mm3 03/01/21 19:21 Promyelocytes # 0.0 K/mm3 03/01/21 19:21 Blast Cells # 0.0 K/mm3 03/01/21 19:21 WBC Morphology Not Reportable 03/01/21 19:21 Hypersegmented Neuts Not Reportable 03/01/21 19:21 Hyposegmented Neuts Not Reportable 03/01/21 19:21 Hypogranular Neuts Not Reportable 03/01/21 19:21 Smudge Cells Not Reportable 03/01/21 19:21 Toxic Granulation Not Reportable 03/01/21 19:21 Toxic Vacuolation Not Reportable 03/01/21 19:21 Dohle Bodies Not Reportable 03/01/21 19:21 Pelger-Huet Anomaly Not Reportable 03/01/21 19:21 Katherine Rods Not Reportable 03/01/21 19:21 Platelet Estimate Not Reportable 03/01/21 19:21 Clumped Platelets Not Reportable 03/01/21 19:21 Plt Clumps, EDTA Not Reportable 03/01/21 19:21 Large Platelets Not Reportable 03/01/21 19:21 Giant Platelets Not Reportable 03/01/21 19:21 Platelet Satelliting Not Reportable 03/01/21 19:21 Plt Morphology Comment Not Reportable 03/01/21 19:21 RBC Morphology Not Reportable 03/01/21 19:21 Dimorphic RBCs Not Reportable 03/01/21 19:21 Polychromasia Not Reportable 03/01/21 19:21 Hypochromasia Not Reportable 03/01/21 19:21 Poikilocytosis Not Reportable 03/01/21 19:21 Anisocytosis Rare 03/01/21 19:21 Microcytosis Not Reportable 03/01/21 19:21 Macrocytosis Not Reportable 03/01/21 19:21 Spherocytes Not Reportable 03/01/21 19:21 Pappenheimer Bodies Not Reportable 03/01/21 19:21 Sickle Cells Not Reportable 03/01/21 19:21 Target Cells Not Reportable 03/01/21 19:21 Tear Drop Cells Not Reportable 03/01/21 19:21 Ovalocytes Not Reportable 03/01/21 19:21 Helmet Cells Not Reportable 03/01/21 19:21 Quinones-Reyno Bodies Not Reportable 03/01/21 19:21 [place] Rings Not Reportable 03/01/21 19:21 [place] Cells Not Reportable 03/01/21 19:21 Bite Cells Not Reportable 03/01/21 19:21 Crenated Cell Not Reportable 03/01/21 19:21 Elliptocytes Not Reportable 03/01/21 19:21 Acanthocytes (Spur) Not Reportable 03/01/21 19:21 Rouleaux Not Reportable 03/01/21 19:21 Hemoglobin C Crystals Not Reportable 03/01/21 19:21 Schistocytes Few 03/01/21 19:21 Malaria parasites Not Reportable 03/01/21 19:21 Henry Bodies Not Reportable 03/01/21 19:21 Hem Pathologist Commnt No 03/01/21 19:21 PT 15.6 Sec. (12.2-14.9) H 03/04/21 10:17 INR 1.18 (0.87-1.13) H 03/04/21 10:17 APTT 36.6 Sec. (24.2-36.6) 03/02/21 16:28 D-Dimer 403.72 ng/mlDDU (0-234) H 03/07/21 08:16 Heparin Anti-Xa Level 0.64 U.I./ml (0.3-0.7) 03/08/21 10:30 ABG pH 7.452 (7.320-7.450) H 03/08/21 04:00 POC ABG pCO2 38.8 mmHg (32.0-48.0) 03/08/21 04:00 POC ABG pO2 75.5 mmHg (83-108) L 03/08/21 04:00 POC ABG HCO3 26.5 03/08/21 04:00 ABG O2 Saturation 94.1 (0-100) 03/08/21 04:00 POC ABG Base Excess 2.4 03/08/21 04:00 ABG Hemoglobin 10.0 (12.0-17.5) L 03/08/21 04:00 ABG Oxyhemoglobin 93.5 (94-98) L 03/08/21 04:00 ABG Methemoglobin 0.3 (0.0-1.5) 03/08/21 04:00 ABG Sodium 134.7 mmol/L (136.0-145.0) L 03/08/21 04:00 ABG Potassium 4.3 mmol/L (3.40-4.50) 03/08/21 04:00 ABG Chloride 100.0 mmol/L (98-107) 03/08/21 04:00 ABG Glucose 268 mg/dL (65-95) H 03/08/21 04:00 Carboxyhemoglobin 0.3 (0.5-1.5) L 03/08/21 04:00 FiO2 % 55.0 03/08/21 04:00 Sodium 139 mmol/L (137-145) 03/08/21 06:10 Potassium 4.3 mmol/L (3.6-5.0) 03/08/21 06:10 Chloride 98.0 mmol/L (98-107) 03/08/21 06:10 Carbon Dioxide 28 mmol/L (22-30) 03/08/21 06:10 Anion Gap 17 mmol/L 03/08/21 06:10 BUN 49 mg/dL (9-20) H 03/08/21 06:10 Creatinine 1.1 mg/dL (0.8-1.3) 03/08/21 06:10 Estimated GFR > 60 ml/min 03/08/21 06:10 BUN/Creatinine Ratio 45 % 03/08/21 06:10 Glucose 280 mg/dL (75-100) H 03/08/21 06:10 POC Glucose 258 mg/dL (70-105) H 03/08/21 11:27 Lactic Acid 1.70 mmol/L (0.7-2.0) 03/04/21 10:17 Calcium 8.7 mg/dL (8.4-10.2) 03/08/21 06:10 Phosphorus 3.50 mg/dL (2.5-4.5) 03/06/21 05:20 Magnesium 2.00 mg/dL (1.7-2.3) 03/07/21 08:16 Ferritin > 2000.0 ng/mL (30.0-300.0) H 03/07/21 08:16 Total Bilirubin 1.20 mg/dL (0.1-1.2) 03/08/21 06:10 Direct Bilirubin 0.6 mg/dL (0-0.2) H 03/04/21 05:26 Indirect Bilirubin 0.2 mg/dL 03/04/21 05:26 AST 130 units/L (5-40) H 03/08/21 06:10 ALT 68 units/L (7-56) H 03/08/21 06:10 Alkaline Phosphatase 440 units/L (35-129) H 03/08/21 06:10 Ammonia 71.0 umol/L (25-60) H 03/01/21 19:21 Lactate Dehydrogenase 453 units/L (91-180) H 03/07/21 08:16 Troponin T 0.484 ng/mL (0.00-0.029) H* 03/01/21 20:55 C-Reactive Protein 32.50 mg/dL (0.00-1.30) H 03/07/21 08:16 Total Protein 5.3 g/dL (6.3-8.2) L 03/08/21 06:10 Albumin 1.9 g/dL (3.9-5) L 03/08/21 06:10 Albumin/Globulin Ratio 0.6 % 03/08/21 06:10 Triglycerides 400 mg/dL (2-149) H 03/01/21 19:21 Cholesterol 232 mg/dL (50-199) H 03/01/21 19:21 LDL Cholesterol Direct 130 mg/dL (50-130) 03/01/21 19:21 HDL Cholesterol 22 mg/dL (40-59) L 03/01/21 19:21 Cholesterol/HDL Ratio 10.54 % 03/01/21 19:21 Lipase 78 units/L (13-60) H 03/04/21 10:17 Procalcitonin 1.18 ng/mL (<0.15) 03/08/21 06:10 TSH 1.840 mlU/mL (0.270-4.200) 03/03/21 04:06 Arterial Blood Glucose 268 mg/dL (65-95) H 03/08/21 04:00 Arterial Blood Ionized Calcium 4.5 mg/dL (4.6-5.3) L 03/08/21 04:00 Urine Color [place]ne (Yellow) 03/06/21 14:34 Urine Turbidity Cloudy (Clear) 03/06/21 14:34 Urine pH 5.0 (5.0-7.0) 03/06/21 14:34 Ur Specific [place] 1.014 (1.003-1.030) 03/06/21 14:34 Urine Protein 30 mg/dl mg/dL (Negative) 03/06/21 14:34 Urine Glucose (UA) Neg mg/dL (Negative) 03/06/21 14:34 Urine Ketones Neg mg/dL (Negative) 03/06/21 14:34 Urine Blood Sm (Negative) 03/06/21 14:34 Urine Nitrite Neg (Negative) 03/06/21 14:34 Urine Bilirubin Neg (Negative) 03/06/21 14:34 Urine Urobilinogen 4.0 mg/dL (<2.0) 03/06/21 14:34 Ur Leukocyte Esterase Neg (Negative) 03/06/21 14:34 Urine WBC (Auto) 103.0 /HPF (0.0-6.0) H 03/06/21 14:34 Urine RBC (Auto) 105.0 /HPF (0.0-6.0) 03/06/21 14:34 U Epithel Cells (Auto) 5.0 /HPF (0-13.0) 03/06/21 14:34 Urine Bacteria (Auto) 2+ /HPF (Negative) 03/06/21 14:34 Hyaline Casts 5 /LPF 03/06/21 14:34 Urine Mucus 1+ /HPF 03/06/21 14:34 Urine Yeast (Budding) Few /HPF 03/01/21 21:40 Urine Sperm 3+ /HPF (PROGRAM STRATEGIST) 03/06/21 14:34 Nasal Screen MRSA (PCR) Positive (Negative) 03/02/21 05:00 Salicylates < 0.3 mg/dL (2.8-20.0) L 03/01/21 19:21 Urine Opiates Screen Positive 03/01/21 21:40 Urine Methadone Screen Negative 03/01/21 21:40 Acetaminophen 5.0 ug/mL (10.0-30.0) L 03/01/21 19:21 Ur Barbiturates Screen Negative 03/01/21 21:40 Ur Phencyclidine Scrn Negative 03/01/21 21:40 Ur Amphetamines Screen Negative 03/01/21 21:40 U Benzodiazepines Scrn Negative 03/01/21 21:40 Urine Cocaine Screen Negative 03/01/21 21:40 U Marijuana (THC) Screen Negative 03/01/21 21:40 Drugs of Abuse Note Disclamer 03/01/21 21:40 KARLA Screen Negative (Negative) 03/03/21 04:06 Coronavirus (PCR) Positive (Negative) A 03/05/21 Unknown Blood Type O POSITIVE 03/01/21 19:21 Antibody Screen Negative 03/01/21 19:21 Microbiology: Microbiology 03/06/21 Unknown Urine,Catheterized - Straight Catheter Urine Culture - Final NO GROWTH AFTER 48 HOURS 03/06/21 13:47 Peripheral/Venous Blood Culture - Preliminary NO GROWTH AFTER 24 HOURS 03/06/21 13:33 Peripheral/Venous Blood Culture - Preliminary NO GROWTH AFTER 24 HOURS Vilchis/IV: Voiding Method Incontinent Active Medications - Current Medications Current Medications: Generic Name Dose Route Start Last Admin Trade Name Freq PRN Reason Stop Dose Admin Acetaminophen 650 mg 03/06/21 10:00 03/06/21 12:33 Acetaminophen 325 Mg/10.15 Ml Oral Liqd Unit Dose FEEDTUBE 650 mg Q6H PRN Administration Pain MILD(1-3)/Fever >100.5/VALDES Albuterol 2.5 mg 03/02/21 15:45 Albuterol 2.5 Mg/3 Ml Nebu IH Q4H PRN Shortness Of Breath Lipase/Protease/Amylase 1 each 03/03/21 10:53 Lipase 10,500/Protease 25,000/Amylase 43,750 (Units) Dr Gutierrez FEEDTUBE PRN PRN For Clogged Feeding Tube Ascorbic Acid 500 mg 03/06/21 22:00 03/08/21 10:36 Ascorbic Acid 500 Mg Tab PO 500 mg BID KYLE Administration Aspirin 81 mg 03/04/21 10:00 03/08/21 10:36 Aspirin 81 Mg Tab Chew PO 81 mg QDAY KYLE Administration Cholecalciferol 1,000 unit 03/07/21 10:00 03/08/21 10:36 Cholecalciferol (Vit D3) 1000 Unit (25 Mcg) Tab PO 1,000 unit QDAY KYLE Administration Dexamethasone 10 mg 03/07/21 12:00 03/07/21 12:18 Dexamethasone 4 Mg/Ml Vial IV 03/15/21 12:01 10 mg Q24H KYLE Administration Dextrose 50 ml 03/02/21 11:38 Dextrose 50% In Water (25gm) 50 Ml Syringe IV Q30MIN PRN Hypoglycemia Protocol Famotidine 20 mg 03/04/21 10:00 03/08/21 10:36 Famotidine 20 Mg Tab PO 20 mg BID KYLE Administration Fentanyl 50 mcg 03/02/21 04:16 03/03/21 12:00 Fentanyl 100 Mcg/2 Ml Inj IV 50 mcg Q10MIN PRN Administration ANALGESIA Heparin Sodium (Porcine) 5,000 unit 03/07/21 16:00 Heparin 10,000 Units/10 Ml Vial IV Q6H PRN Anti-Xa Assay < 0.1 units/ml Hydralazine HCl 2.5 mg 03/08/21 09:00 03/08/21 10:35 Hydralazine 20 Mg/1 Ml Inj IV 2.5 mg Q8H PRN Administration Hypertension Hydrophilic Ointment 1 applic 03/02/21 15:42 Lip Therapy Vaseline TP Q2H PRN Dry Lips Fentanyl Citrate 2,000 mcg in 100 mls @ 6.55 mls/hr 03/01/21 21:30 03/08/21 11:21 Fentanyl Drip Premix IV 3 mcg/kg/hr TITR KYLE 19.65 mls/hr Administration Protocol 1 MCG/KG/HR Heparin Sodium/Sodium Chloride 25,000 unit in 500 mls @ 30 mls/hr 03/04/21 15:00 03/08/21 04:32 Heparin/ 0.45% Nacl-25,000 Unit/500 Ml IV 1,250 units/hr TITR KYLE 25 mls/hr Titration Protocol 1,500 UNITS/HR REMDESIVIR 100 mg/ Sodium 250 mls @ 500 mls/hr 03/07/21 21:00 03/07/21 21:30 Chloride IV 03/10/21 21:29 500 mls/hr Q24HR@2100 KYLE Administration Sodium Chloride 1,000 mls @ 1 mls/hr 03/06/21 18:11 Nacl 0.9% 500 Ml IV DIRECT PRN ARTERIAL LINE FLUSH Insulin Glargine 10 units 03/07/21 22:00 03/07/21 21:31 Insulin Glargine 100 Units/Ml SUB-Q 10 units QHS KYLE Administration Insulin Human Lispro 0 unit 03/04/21 12:00 03/08/21 06:37 Insulin Lispro 100 Unit/Ml SUB-Q 4 unit Q6HR KYLE Administration Protocol Magnesium Hydroxide 30 ml 03/02/21 00:18 Magnesium Hydroxide (Mom) Oral Liqd Udc PO Q4H PRN Constipation Midodrine 10 mg 03/02/21 12:00 03/08/21 12:26 Midodrine 5 Mg Tab PO Not Given TID@0800,1200,1600 [facility] Multi-Ingred Cream/Lotion/Oil/Oint 1 applic 03/02/21 15:42 Mineral Oil/Petrolatum, White Ophth Oint 3.5 Gm OU Q4HR PRN Dry Eye(s) Multivitamins/Minerals 1 each 03/03/21 22:00 03/08/21 10:36 Calcium Carb/Vit D3/Minerals 600 Mg/800 Units Tab PO 1 each BID KYLE Administration Senna/Docusate Sodium 1 tab 03/02/21 22:00 03/08/21 10:36 Sennosides/Docusate Sodium 8.6/50 Mg Tab FEEDTUBE 1 tab BID KYLE Administration Simple Syrup 15 ml 03/03/21 10:53 Simple Syrup 15 Ml FEEDTUBE PRN PRN Hypoglycemia Simple Syrup 30 ml 03/03/21 10:53 Simple Syrup 15 Ml FEEDTUBE PRN PRN Hypoglycemia Sodium Bicarbonate 325 mg 03/03/21 10:53 Sodium Bicarbonate 325 Mg Tab FEEDTUBE PRN PRN For Clogged Feeding Tube Sodium Chloride 10 ml 03/02/21 10:00 03/08/21 10:37 Sodium Chloride 0.9% 10 Ml Flush Syringe IV 10 ml BID KYLE Administration Sodium Chloride 10 ml 03/02/21 00:18 Sodium Chloride 0.9% 10 Ml Flush Syringe IV PRN PRN LINE FLUSH Sodium Chloride 50 ml 03/06/21 16:00 03/07/21 21:31 Sodium Chloride 0.9% 50 Ml Ivpb IV 03/10/21 21:01 50 ml Q24HR@2100 KYLE Administration Zinc Sulfate 220 mg 03/06/21 16:00 03/08/21 10:36 Zinc Sulfate 220 Mg Cap PO 220 mg BID KYLE Administration Nutrition/Malnutrition Assess - Dietary Evaluation Nutrition/Malnutrition Findings: Nutrition Notes Start: 03/02/21 10:10 Freq: Status: Active Protocol: Document 03/07/21 11:42 (Rec: 03/07/21 11:48 [email or web address]) Nutrition Notes Initial or Follow up Reassessment Current Diagnosis Acute Kidney Injury,COPD, Diabetes,Sepsis,Hypertension, Heart Failure,Respiratory Failure Other Pertinent Diagnosis pneu, AMS Current Diet Glucerna 1.2 at 65 ml/hr; Flush of 100 ml q4h Labs/Tests Na 136 BG 210 Pertinent Medications reviewed Height 5 ft 10 in Weight 131 kg [place] Body Weight (kg) 75.45 BMI 41.4 Weight Status Morbidly Obese Subjective/Other Information F/u for TF tolerance. Residuals over 300 ml yesterday. TF at 10 ml/hr and RN will increase as ppt tolerates. Will follow for tolerance. Percent of energy/protein needs met: 14%/7% Burn Absent Trauma Absent Skin Integrity/Comment 2+ non-pitting edema Current % PO Negligible Minimum of two criteria No Fluid Accumulation Mild (non-severe) #1 Nutrition Diagnosis Inadequate oral intake Diagnosis Progress(for reassessment Continues documentation) Is patient on ventilator? Yes Is Patient Ambulatory and/or Out of Bed No REE-([place]-confined to bed) 2614.728 Kcal/Kg value to use for calculation 14 Approximate Energy Requirements Using 1834 kcal/Kg Calculation Used for Recommendations Kcal/kg Additional Notes Protein: up to 2.5g/kg IBW (< or = to 189g) Fluid: 1 ml/kcal or per MD Nutrition Intervention Change Diet Order: Continue TF as tolerated Nutrition Support: Glucerna 1.2 at 65 ml/hr Flush 100 ml q4h or per MD Kcal 1,872 Protein (gm) 94 Carbohydrates (gm) 179 Fat (gm) 94 Fluid (mL) 1,256 Goal #1 Meet at least 75% of kcal needs and protein needs as best as possible via TF Goal #2 TF tolerance Anticipated Discharge Needs: Unable to determine at this time Follow-Up By: 03/11/21 Additional Comments FU for TF at goal and tolerance
[2021-03-08] MEDS: dexAMETHasone 4 MG/ML VIAL IV SCH (13:00)
--- NOTE | 2021-03-08 13:48 | Progress Note ---
Assessment and Plan Acute hypoxemic respiratory failure NSTEMI Acute kidney injury Severe sepsis Bilateral pneumonia H/O congestive heart failure Diabetes type 2 Acute encephalopathy Elevated serum transaminases Anemia that is microcytic Leukocytosis Metabolic acidosis Lactic acidosis - schedule Metoprolol 25mg p.o. bid with hold parameters - advance tube feeds to goal rate - discontinue midodrine - reduced set minute volumes - increased Lantus for better glycemic control - continue anti-infective's per ID recommendations - continue IV Heparin for VTE - keep peep at 10 cm H2O - continue care as below otherwise; - continue Daily SAT and SBT assessment as tolerated - continue to wean supplemental oxygen for target O2 sat's > 90% acutely - VAP bundle addressed - continue lung protective strategies - continue bronchodilators with pulmonary hygiene per RT - wean per pulmonary driven protocols otherwise - continue accuchecks with glycemic control per SSI (While critically ill target blood glucose of 140-180 mg/dL; avoid hypoglycemia) - sedation prn for target RASS 0 to -1 - avoid nephrotoxins, renally dose all medications - continue to avoid benzodiazepine's, reduce the possibility of delirium - complete AB's per ID rec's (Vancomycin, Levaquin) - prn analgesia per CPOT score - Maintenance of sleep-wake cycle, avoid delirium - continue enteral nutritional support at goal rate as tolerated - G.I. & VTE prophylaxis - PT/OT/ROM exercises - continue mobility protocols for pressure ulcer prophylaxis - Monitor hemodynamics closely - continue other care per attending / other consultants - discharge planning ongoing concurrently COVID SPECIFIC INTERVENTIONS - continue empiric contact and airborne isolation - Remdesivir as per ID/Pulmonary developed protocols (started) - started systemic steroids for severe COVID-19 infection empirically - follow repeat COVID tests results - started zinc and vitamin C supplementation i9f test positive - get & monitor inflammatory markers per facility protocol - ferritin, Ddimer, CRP (if test +ve) - therapeutic anticoagulation per system Protocol based on d-dimer and clinical considerations (On IV HEparin for VTE) .... Re-evaluate in am & prn CONDITION: CRITICAL PROGNOSIS: GUARDED CODE STATUS: FULL CODE The high probability of a clinically significant, sudden or life-threatening deterioration of the [respiratory, cardiovascular & neurologic] system(s) required my full and direct attention, intervention and personal management. The aggregate critical care time was [37] minutes without overlap. Time includes spent on; [x] Data Review and interpretation [x] Patient assessment and monitoring of vital signs [x] Documentation [x] Medication orders and management Subjective Date of service: 03/08/21 Principal diagnosis: Ac hypoxemic resp failure; NSTEMI; ALPHONSO; Sepsis; PNA; CHF; DM II; AMS Interval history: Patient is seen today for: Acute hypoxemic respiratory failure; NSTEMI; ALPHONSO; Severe sepsis; Pneumonia; CHF; DM II; Acute encephalopathy Seen and examined at bedside; 24hour events reviewed; nursing and respiratory care staff consulted; no adverse overnight events reported to me; resting pea cefully in bed; BP's rebounded and on the high side now; blood sugars running high; no emesis or overt aspiration Objective Vital Signs - 12hr 03/08/21 03/08/21 03/08/21 02:00 03:00 03:10 Temperature 99.3 F Pulse Rate 106 H 146 H Pulse Rate [ From Monitor] Pulse Rate [ Right Dorsalis Pedis] Respiratory 12 14 Rate Blood Pressure 185/114 185/105 O2 Sat by Pulse 97 96 Oximetry 03/08/21 03/08/21 03/08/21 03:47 04:00 05:00 Temperature Pulse Rate 123 H 142 H 89 Pulse Rate [ 99 H From Monitor] Pulse Rate [ 77 Right Dorsalis Pedis] Respiratory 32 H 13 Rate Blood Pressure 197/113 194/163 194/163 O2 Sat by Pulse 93 96 97 Oximetry 03/08/21 03/08/21 03/08/21 05:59 06:00 07:00 Temperature 98.2 F Pulse Rate 80 88 Pulse Rate [ 99 H From Monitor] Pulse Rate [ 77 Right Dorsalis Pedis] Respiratory 20 17 19 Rate Blood Pressure O2 Sat by Pulse 99 92 96 Oximetry 03/08/21 03/08/21 03/08/21 08:00 09:00 10:00 Temperature Pulse Rate 97 H 90 86 Pulse Rate [ 97 H From Monitor] Pulse Rate [ Right Dorsalis Pedis] Respiratory 20 12 21 Rate Blood Pressure 185/100 O2 Sat by Pulse 99 96 96 Oximetry 03/08/21 03/08/21 03/08/21 11:00 11:41 12:00 Temperature 98.8 F Pulse Rate 108 H 89 Pulse Rate [ From Monitor] Pulse Rate [ Right Dorsalis Pedis] Respiratory 16 13 Rate Blood Pressure O2 Sat by Pulse 96 97 Oximetry Constitutional: no acute distress, other (middle aged obese male without significant ventilator dyssynchrony) Eyes: non-icteric ENT: oropharynx moist, other (ETT 24 cm CLINT) Neck: supple, no lymphadenopathy, no JVD, other (large circumference) Effort: mildly labored Ascultation: Bilateral: diminished breath sounds, rhonchi Percussion: Bilateral: not dull Cardiovascular: regular rate and rhythm Gastrointestinal: normoactive bowel sounds, soft, non-tender, non-distended (protuberant) Integumentary: normal Extremities: no cyanosis, pulses normal, no ischemia or petechiae, edema (trace) Neurologic: non-focal exam (grossly), pupils equal and round, CN II-XII normal, motor strength normal and Psychiatric: other (sedated) CBC and BMP: 03/11/21 06:54 03/11/21 06:54 ABG, PT/INR, D-dimer: ABG ABG pH 7.452 (7.320-7.450) H 03/08/21 04:00 POC ABG pCO2 38.8 mmHg (32.0-48.0) 03/08/21 04:00 POC ABG pO2 75.5 mmHg (83-108) L 03/08/21 04:00 POC ABG HCO3 26.5 03/08/21 04:00 ABG O2 Saturation 94.1 (0-100) 03/08/21 04:00 PT/INR, D-dimer PT 15.6 Sec. (12.2-14.9) H 03/04/21 10:17 INR 1.18 (0.87-1.13) H 03/04/21 10:17 D-Dimer 403.72 ng/mlDDU (0-234) H 03/07/21 08:16 Abnormal lab findings: Abnormal Labs 03/01/21 03/01/21 03/01/21 19:15 19:21 19:21 WBC 12.7 H RBC 2.77 L Hgb 9.1 L Hct 27.7 L MCV 100 H MCH 33 H RDW 18.0 H Seg Neutrophils % Monocytes % (Manual) 17.0 H Seg Neutrophils # Monocytes # (Manual) 2.2 H PT INR D-Dimer Heparin Anti-Xa Level ABG pH POC ABG pCO2 POC ABG pO2 64.9 L ABG Hemoglobin 9.3 L ABG Oxyhemoglobin 93.0 L ABG Sodium 133.8 L ABG Potassium ABG Chloride 97.0 L ABG Glucose 191 H Carboxyhemoglobin Sodium Chloride Carbon Dioxide BUN Creatinine Glucose POC Glucose Lactic Acid Calcium Phosphorus Magnesium Ferritin Total Bilirubin Direct Bilirubin AST ALT Alkaline Phosphatase Ammonia Lactate Dehydrogenase Troponin T 0.493 H* C-Reactive Protein Total Protein Albumin Triglycerides 400 H Cholesterol 232 H HDL Cholesterol 22 L Lipase Arterial Blood Glucose 191 H Arterial Blood Ionized Calcium 4.4 L Urine WBC (Auto) Salicylates Acetaminophen Coronavirus (PCR) 03/01/21 03/01/21 03/01/21 19:21 19:21 19:21 WBC RBC Hgb Hct MCV MCH RDW Seg Neutrophils % Monocytes % (Manual) Seg Neutrophils # Monocytes # (Manual) PT 16.6 H INR 1.28 H D-Dimer Heparin Anti-Xa Level ABG pH POC ABG pCO2 POC ABG pO2 ABG Hemoglobin ABG Oxyhemoglobin ABG Sodium ABG Potassium ABG Chloride ABG Glucose Carboxyhemoglobin Sodium 132 L Chloride 92.2 L Carbon Dioxide BUN 43 H Creatinine 2.4 H Glucose 190 H POC Glucose Lactic Acid 2.90 H* Calcium Phosphorus Magnesium Ferritin Total Bilirubin 1.60 H Direct Bilirubin 1.2 H AST 275 H ALT 156 H Alkaline Phosphatase 282 H Ammonia Lactate Dehydrogenase Troponin T C-Reactive Protein Total Protein 5.8 L Albumin 2.6 L Triglycerides Cholesterol HDL Cholesterol Lipase 120 H Arterial Blood Glucose Arterial Blood Ionized Calcium Urine WBC (Auto) Salicylates Acetaminophen Coronavirus (PCR) 03/01/21 03/01/21 03/01/21 19:21 19:21 19:21 WBC RBC Hgb Hct MCV MCH RDW Seg Neutrophils % Monocytes % (Manual) Seg Neutrophils # Monocytes # (Manual) PT INR D-Dimer Heparin Anti-Xa Level ABG pH POC ABG pCO2 POC ABG pO2 ABG Hemoglobin ABG Oxyhemoglobin ABG Sodium ABG Potassium ABG Chloride ABG Glucose Carboxyhemoglobin Sodium Chloride Carbon Dioxide BUN Creatinine Glucose POC Glucose Lactic Acid Calcium Phosphorus Magnesium Ferritin Total Bilirubin Direct Bilirubin AST ALT Alkaline Phosphatase Ammonia 71.0 H Lactate Dehydrogenase Troponin T C-Reactive Protein Total Protein Albumin Triglycerides Cholesterol HDL Cholesterol Lipase Arterial Blood Glucose Arterial Blood Ionized Calcium Urine WBC (Auto) Salicylates < 0.3 L Acetaminophen 5.0 L Coronavirus (PCR) 03/01/21 03/01/21 03/02/21 20:55 20:55 00:01 WBC RBC Hgb Hct MCV MCH RDW Seg Neutrophils % Monocytes % (Manual) Seg Neutrophils # Monocytes # (Manual) PT INR D-Dimer Heparin Anti-Xa Level ABG pH 7.234 L POC ABG pCO2 POC ABG pO2 240.5 H ABG Hemoglobin 9.3 L ABG Oxyhemoglobin 99.1 H ABG Sodium 135.3 L ABG Potassium ABG Chloride ABG Glucose 286 H Carboxyhemoglobin 0.3 L Sodium Chloride Carbon Dioxide BUN Creatinine Glucose POC Glucose Lactic Acid 4.30 H* Calcium Phosphorus Magnesium Ferritin Total Bilirubin Direct Bilirubin AST ALT Alkaline Phosphatase Ammonia Lactate Dehydrogenase Troponin T 0.484 H* C-Reactive Protein Total Protein Albumin Triglycerides Cholesterol HDL Cholesterol Lipase Arterial Blood Glucose 286 H Arterial Blood Ionized Calcium Urine WBC (Auto) Salicylates Acetaminophen Coronavirus (PCR) 03/02/21 03/02/21 03/02/21 03:42 05:23 06:35 WBC RBC Hgb Hct MCV MCH RDW Seg Neutrophils % Monocytes % (Manual) Seg Neutrophils # Monocytes # (Manual) PT INR D-Dimer Heparin Anti-Xa Level ABG pH 7.225 L POC ABG pCO2 POC ABG pO2 181.8 H ABG Hemoglobin 9.4 L ABG Oxyhemoglobin 98.6 H ABG Sodium 132.1 L ABG Potassium 5.0 H ABG Chloride ABG Glucose 454 H Carboxyhemoglobin 0.3 L Sodium Chloride Carbon Dioxide BUN Creatinine Glucose POC Glucose 410 H Lactic Acid 7.50 H* Calcium Phosphorus Magnesium Ferritin Total Bilirubin Direct Bilirubin AST ALT Alkaline Phosphatase Ammonia Lactate Dehydrogenase Troponin T C-Reactive Protein Total Protein Albumin Triglycerides Cholesterol HDL Cholesterol Lipase Arterial Blood Glucose 454 H Arterial Blood Ionized Calcium 4.2 L Urine WBC (Auto) Salicylates Acetaminophen Coronavirus (PCR) 03/02/21 03/02/21 03/02/21 10:48 10:48 10:48 WBC RBC Hgb Hct MCV MCH RDW Seg Neutrophils % Monocytes % (Manual) Seg Neutrophils # Monocytes # (Manual) PT INR D-Dimer Heparin Anti-Xa Level ABG pH POC ABG pCO2 POC ABG pO2 ABG Hemoglobin ABG Oxyhemoglobin ABG Sodium ABG Potassium ABG Chloride ABG Glucose Carboxyhemoglobin Sodium 132 L Chloride 93.3 L Carbon Dioxide 20 L BUN 46 H Creatinine 1.9 H Glucose 503 H* POC Glucose Lactic Acid 3.40 H* Calcium 7.9 L Phosphorus 5.80 H Magnesium Ferritin Total Bilirubin Direct Bilirubin AST ALT Alkaline Phosphatase Ammonia Lactate Dehydrogenase Troponin T C-Reactive Protein Total Protein Albumin Triglycerides Cholesterol HDL Cholesterol Lipase Arterial Blood Glucose Arterial Blood Ionized Calcium Urine WBC (Auto) Salicylates Acetaminophen Coronavirus (PCR) 03/02/21 03/02/21 03/02/21 11:23 11:38 15:33 WBC RBC Hgb Hct MCV MCH RDW Seg Neutrophils % Monocytes % (Manual) Seg Neutrophils # Monocytes # (Manual) PT INR D-Dimer Heparin Anti-Xa Level ABG pH 7.318 L POC ABG pCO2 POC ABG pO2 ABG Hemoglobin 9.2 L ABG Oxyhemoglobin ABG Sodium 133.2 L ABG Potassium ABG Chloride ABG Glucose 504 H Carboxyhemoglobin 0.3 L Sodium Chloride Carbon Dioxide BUN Creatinine Glucose POC Glucose 468 H 445 H Lactic Acid Calcium Phosphorus Magnesium Ferritin Total Bilirubin Direct Bilirubin AST ALT Alkaline Phosphatase Ammonia Lactate Dehydrogenase Troponin T C-Reactive Protein Total Protein Albumin Triglycerides Cholesterol HDL Cholesterol Lipase Arterial Blood Glucose 504 H Arterial Blood Ionized Calcium 4.2 L Urine WBC (Auto) Salicylates Acetaminophen Coronavirus (PCR) 03/02/21 03/02/21 03/02/21 16:28 16:28 16:28 WBC RBC Hgb 8.8 L Hct 26.0 L MCV MCH RDW Seg Neutrophils % Monocytes % (Manual) Seg Neutrophils # Monocytes # (Manual) PT 15.2 H INR 1.14 H D-Dimer Heparin Anti-Xa Level ABG pH POC ABG pCO2 POC ABG pO2 ABG Hemoglobin ABG Oxyhemoglobin ABG Sodium ABG Potassium ABG Chloride ABG Glucose Carboxyhemoglobin Sodium 135 L Chloride 93.8 L Carbon Dioxide BUN 48 H Creatinine 1.8 H Glucose 454 H POC Glucose Lactic Acid Calcium 7.6 L Phosphorus Magnesium Ferritin Total Bilirubin Direct Bilirubin AST ALT Alkaline Phosphatase Ammonia Lactate Dehydrogenase Troponin T C-Reactive Protein Total Protein Albumin Triglycerides Cholesterol HDL Cholesterol Lipase Arterial Blood Glucose Arterial Blood Ionized Calcium Urine WBC (Auto) Salicylates Acetaminophen Coronavirus (PCR) 03/02/21 03/02/21 03/02/21 17:39 18:52 20:09 WBC RBC Hgb Hct MCV MCH RDW Seg Neutrophils % Monocytes % (Manual) Seg Neutrophils # Monocytes # (Manual) PT INR D-Dimer Heparin Anti-Xa Level ABG pH POC ABG pCO2 POC ABG pO2 ABG Hemoglobin ABG Oxyhemoglobin ABG Sodium ABG Potassium ABG Chloride ABG Glucose Carboxyhemoglobin Sodium Chloride Carbon Dioxide BUN Creatinine Glucose POC Glucose 404 H 357 H 347 H Lactic Acid Calcium Phosphorus Magnesium Ferritin Total Bilirubin Direct Bilirubin AST ALT Alkaline Phosphatase Ammonia Lactate Dehydrogenase Troponin T C-Reactive Protein Total Protein Albumin Triglycerides Cholesterol HDL Cholesterol Lipase Arterial Blood Glucose Arterial Blood Ionized Calcium Urine WBC (Auto) Salicylates Acetaminophen Coronavirus (PCR) 03/02/21 03/02/21 03/02/21 21:03 22:00 22:55 WBC RBC Hgb Hct MCV MCH RDW Seg Neutrophils % Monocytes % (Manual) Seg Neutrophils # Monocytes # (Manual) PT INR D-Dimer Heparin Anti-Xa Level ABG pH POC ABG pCO2 POC ABG pO2 ABG Hemoglobin ABG Oxyhemoglobin ABG Sodium ABG Potassium ABG Chloride ABG Glucose Carboxyhemoglobin Sodium Chloride Carbon Dioxide BUN Creatinine Glucose POC Glucose 307 H 270 H 237 H Lactic Acid Calcium Phosphorus Magnesium Ferritin Total Bilirubin Direct Bilirubin AST ALT Alkaline Phosphatase Ammonia Lactate Dehydrogenase Troponin T C-Reactive Protein Total Protein Albumin Triglycerides Cholesterol HDL Cholesterol Lipase Arterial Blood Glucose Arterial Blood Ionized Calcium Urine WBC (Auto) Salicylates Acetaminophen Coronavirus (PCR) 03/03/21 03/03/21 03/03/21 00:02 00:57 02:01 WBC RBC Hgb Hct MCV MCH RDW Seg Neutrophils % Monocytes % (Manual) Seg Neutrophils # Monocytes # (Manual) PT INR D-Dimer Heparin Anti-Xa Level ABG pH POC ABG pCO2 POC ABG pO2 ABG Hemoglobin ABG Oxyhemoglobin ABG Sodium ABG Potassium ABG Chloride ABG Glucose Carboxyhemoglobin Sodium Chloride Carbon Dioxide BUN Creatinine Glucose POC Glucose 252 H 214 H 261 H Lactic Acid Calcium Phosphorus Magnesium Ferritin Total Bilirubin Direct Bilirubin AST ALT Alkaline Phosphatase Ammonia Lactate Dehydrogenase Troponin T C-Reactive Protein Total Protein Albumin Triglycerides Cholesterol HDL Cholesterol Lipase Arterial Blood Glucose Arterial Blood Ionized Calcium Urine WBC (Auto) Salicylates Acetaminophen Coronavirus (PCR) 03/03/21 03/03/21 03/03/21 03:07 03:10 03:50 WBC 13.7 H RBC 2.69 L Hgb 8.7 L Hct 26.9 L MCV 100 H MCH RDW 18.5 H Seg Neutrophils % 79.0 H Monocytes % (Manual) Seg Neutrophils # 10.8 H Monocytes # (Manual) PT INR D-Dimer Heparin Anti-Xa Level ABG pH POC ABG pCO2 50.9 H POC ABG pO2 81.9 L ABG Hemoglobin 8.7 L ABG Oxyhemoglobin ABG Sodium 134.2 L ABG Potassium ABG Chloride 96.0 L ABG Glucose 279 H Carboxyhemoglobin 0.4 L Sodium Chloride Carbon Dioxide BUN Creatinine Glucose POC Glucose 276 H Lactic Acid Calcium Phosphorus Magnesium Ferritin Total Bilirubin Direct Bilirubin AST ALT Alkaline Phosphatase Ammonia Lactate Dehydrogenase Troponin T C-Reactive Protein Total Protein Albumin Triglycerides Cholesterol HDL Cholesterol Lipase Arterial Blood Glucose 279 H Arterial Blood Ionized Calcium 3.9 L Urine WBC (Auto) Salicylates Acetaminophen Coronavirus (PCR) 03/03/21 03/03/21 03/03/21 03:50 04:06 04:32 WBC RBC Hgb Hct MCV MCH RDW Seg Neutrophils % Monocytes % (Manual) Seg Neutrophils # Monocytes # (Manual) PT INR D-Dimer Heparin Anti-Xa Level ABG pH POC ABG pCO2 POC ABG pO2 ABG Hemoglobin ABG Oxyhemoglobin ABG Sodium ABG Potassium ABG Chloride ABG Glucose Carboxyhemoglobin Sodium Chloride 94.2 L Carbon Dioxide BUN 45 H Creatinine 1.9 H Glucose 261 H POC Glucose 256 H Lactic Acid Calcium 7.3 L Phosphorus Magnesium Ferritin Total Bilirubin Direct Bilirubin 0.9 H AST 208 H ALT 148 H Alkaline Phosphatase 251 H Ammonia Lactate Dehydrogenase Troponin T C-Reactive Protein Total Protein 5.5 L Albumin 2.4 L Triglycerides Cholesterol HDL Cholesterol Lipase Arterial Blood Glucose Arterial Blood Ionized Calcium Urine WBC (Auto) Salicylates Acetaminophen Coronavirus (PCR) 03/03/21 03/03/21 03/03/21 05:23 06:06 07:07 WBC RBC Hgb Hct MCV MCH RDW Seg Neutrophils % Monocytes % (Manual) Seg Neutrophils # Monocytes # (Manual) PT INR D-Dimer Heparin Anti-Xa Level ABG pH POC ABG pCO2 POC ABG pO2 ABG Hemoglobin ABG Oxyhemoglobin ABG Sodium ABG Potassium ABG Chloride ABG Glucose Carboxyhemoglobin Sodium Chloride Carbon Dioxide BUN Creatinine Glucose POC Glucose 214 H 249 H 237 H Lactic Acid Calcium Phosphorus Magnesium Ferritin Total Bilirubin Direct Bilirubin AST ALT Alkaline Phosphatase Ammonia Lactate Dehydrogenase Troponin T C-Reactive Protein Total Protein Albumin Triglycerides Cholesterol HDL Cholesterol Lipase Arterial Blood Glucose Arterial Blood Ionized Calcium Urine WBC (Auto) Salicylates Acetaminophen Coronavirus (PCR) 03/03/21 03/03/21 03/03/21 07:58 08:58 09:52 WBC RBC Hgb Hct MCV MCH RDW Seg Neutrophils % Monocytes % (Manual) Seg Neutrophils # Monocytes # (Manual) PT INR D-Dimer Heparin Anti-Xa Level ABG pH POC ABG pCO2 POC ABG pO2 ABG Hemoglobin ABG Oxyhemoglobin ABG Sodium ABG Potassium ABG Chloride ABG Glucose Carboxyhemoglobin Sodium Chloride Carbon Dioxide BUN Creatinine Glucose POC Glucose 227 H 215 H 207 H Lactic Acid Calcium Phosphorus Magnesium Ferritin Total Bilirubin Direct Bilirubin AST ALT Alkaline Phosphatase Ammonia Lactate Dehydrogenase Troponin T C-Reactive Protein Total Protein Albumin Triglycerides Cholesterol HDL Cholesterol Lipase Arterial Blood Glucose Arterial Blood Ionized Calcium Urine WBC (Auto) Salicylates Acetaminophen Coronavirus (PCR) 03/03/21 03/03/21 03/03/21 10:55 11:44 12:53 WBC RBC Hgb Hct MCV MCH RDW Seg Neutrophils % Monocytes % (Manual) Seg Neutrophils # Monocytes # (Manual) PT INR D-Dimer Heparin Anti-Xa Level ABG pH POC ABG pCO2 POC ABG pO2 ABG Hemoglobin ABG Oxyhemoglobin ABG Sodium ABG Potassium ABG Chloride ABG Glucose Carboxyhemoglobin Sodium Chloride Carbon Dioxide BUN Creatinine Glucose POC Glucose 198 H 210 H 203 H Lactic Acid Calcium Phosphorus Magnesium Ferritin Total Bilirubin Direct Bilirubin AST ALT Alkaline Phosphatase Ammonia Lactate Dehydrogenase Troponin T C-Reactive Protein Total Protein Albumin Triglycerides Cholesterol HDL Cholesterol Lipase Arterial Blood Glucose Arterial Blood Ionized Calcium Urine WBC (Auto) Salicylates Acetaminophen Coronavirus (PCR) 03/03/21 03/03/21 03/03/21 13:53 14:58 15:23 WBC RBC Hgb Hct MCV MCH RDW Seg Neutrophils % Monocytes % (Manual) Seg Neutrophils # Monocytes # (Manual) PT INR D-Dimer Heparin Anti-Xa Level ABG pH POC ABG pCO2 POC ABG pO2 ABG Hemoglobin ABG Oxyhemoglobin ABG Sodium ABG Potassium ABG Chloride ABG Glucose Carboxyhemoglobin Sodium Chloride Carbon Dioxide BUN Creatinine Glucose POC Glucose 210 H 187 H Lactic Acid 3.10 H* Calcium Phosphorus Magnesium Ferritin Total Bilirubin Direct Bilirubin AST ALT Alkaline Phosphatase Ammonia Lactate Dehydrogenase Troponin T C-Reactive Protein Total Protein Albumin Triglycerides Cholesterol HDL Cholesterol Lipase Arterial Blood Glucose Arterial Blood Ionized Calcium Urine WBC (Auto) Salicylates Acetaminophen Coronavirus (PCR) 03/03/21 03/03/21 03/03/21 15:51 16:25 16:53 WBC RBC Hgb Hct MCV MCH RDW Seg Neutrophils % Monocytes % (Manual) Seg Neutrophils # Monocytes # (Manual) PT INR D-Dimer Heparin Anti-Xa Level ABG pH POC ABG pCO2 POC ABG pO2 ABG Hemoglobin ABG Oxyhemoglobin ABG Sodium ABG Potassium ABG Chloride ABG Glucose Carboxyhemoglobin Sodium Chloride 91.0 L Carbon Dioxide 34 H BUN 47 H Creatinine 1.7 H Glucose 190 H POC Glucose 182 H 179 H Lactic Acid Calcium 7.6 L Phosphorus Magnesium Ferritin Total Bilirubin Direct Bilirubin AST ALT Alkaline Phosphatase Ammonia Lactate Dehydrogenase Troponin T C-Reactive Protein Total Protein Albumin Triglycerides Cholesterol HDL Cholesterol Lipase Arterial Blood Glucose Arterial Blood Ionized Calcium Urine WBC (Auto) Salicylates Acetaminophen Coronavirus (PCR) 03/03/21 03/03/21 03/03/21 17:55 19:37 20:57 WBC RBC Hgb Hct MCV MCH RDW Seg Neutrophils % Monocytes % (Manual) Seg Neutrophils # Monocytes # (Manual) PT INR D-Dimer Heparin Anti-Xa Level ABG pH POC ABG pCO2 POC ABG pO2 ABG Hemoglobin ABG Oxyhemoglobin ABG Sodium ABG Potassium ABG Chloride ABG Glucose Carboxyhemoglobin Sodium Chloride Carbon Dioxide BUN Creatinine Glucose POC Glucose 185 H 174 H 175 H Lactic Acid Calcium Phosphorus Magnesium Ferritin Total Bilirubin Direct Bilirubin AST ALT Alkaline Phosphatase Ammonia Lactate Dehydrogenase Troponin T C-Reactive Protein Total Protein Albumin Triglycerides Cholesterol HDL Cholesterol Lipase Arterial Blood Glucose Arterial Blood Ionized Calcium Urine WBC (Auto) Salicylates Acetaminophen Coronavirus (PCR) 03/03/21 03/03/21 03/03/21 22:02 22:56 23:10 WBC RBC Hgb Hct MCV MCH RDW Seg Neutrophils % Monocytes % (Manual) Seg Neutrophils # Monocytes # (Manual) PT INR D-Dimer Heparin Anti-Xa Level 0.75 H ABG pH POC ABG pCO2 POC ABG pO2 ABG Hemoglobin ABG Oxyhemoglobin ABG Sodium ABG Potassium ABG Chloride ABG Glucose Carboxyhemoglobin Sodium Chloride Carbon Dioxide BUN Creatinine Glucose POC Glucose 170 H 160 H Lactic Acid Calcium Phosphorus Magnesium Ferritin Total Bilirubin Direct Bilirubin AST ALT Alkaline Phosphatase Ammonia Lactate Dehydrogenase Troponin T C-Reactive Protein Total Protein Albumin Triglycerides Cholesterol HDL Cholesterol Lipase Arterial Blood Glucose Arterial Blood Ionized Calcium Urine WBC (Auto) Salicylates Acetaminophen Coronavirus (PCR) 03/03/21 03/04/21 03/04/21 23:42 00:52 01:55 WBC RBC Hgb Hct MCV MCH RDW Seg Neutrophils % Monocytes % (Manual) Seg Neutrophils # Monocytes # (Manual) PT INR D-Dimer Heparin Anti-Xa Level ABG pH POC ABG pCO2 POC ABG pO2 ABG Hemoglobin ABG Oxyhemoglobin ABG Sodium ABG Potassium ABG Chloride ABG Glucose Carboxyhemoglobin Sodium Chloride Carbon Dioxide BUN Creatinine Glucose POC Glucose 161 H 167 H 119 H Lactic Acid Calcium Phosphorus Magnesium Ferritin Total Bilirubin Direct Bilirubin AST ALT Alkaline Phosphatase Ammonia Lactate Dehydrogenase Troponin T C-Reactive Protein Total Protein Albumin Triglycerides Cholesterol HDL Cholesterol Lipase Arterial Blood Glucose Arterial Blood Ionized Calcium Urine WBC (Auto) Salicylates Acetaminophen Coronavirus (PCR) 03/04/21 03/04/21 03/04/21 02:58 03:47 04:03 WBC RBC Hgb Hct MCV MCH RDW Seg Neutrophils % Monocytes % (Manual) Seg Neutrophils # Monocytes # (Manual) PT INR D-Dimer Heparin Anti-Xa Level ABG pH POC ABG pCO2 57.3 H POC ABG pO2 63.7 L ABG Hemoglobin 8.4 L ABG Oxyhemoglobin 88.6 L ABG Sodium 132.5 L ABG Potassium 3.2 L ABG Chloride 94.0 L ABG Glucose 129 H Carboxyhemoglobin Sodium Chloride Carbon Dioxide BUN Creatinine Glucose POC Glucose 111 H 122 H Lactic Acid Calcium Phosphorus Magnesium Ferritin Total Bilirubin Direct Bilirubin AST ALT Alkaline Phosphatase Ammonia Lactate Dehydrogenase Troponin T C-Reactive Protein Total Protein Albumin Triglycerides Cholesterol HDL Cholesterol Lipase Arterial Blood Glucose 129 H Arterial Blood Ionized Calcium 3.8 L Urine WBC (Auto) Salicylates Acetaminophen Coronavirus (PCR) 03/04/21 03/04/21 03/04/21 05:15 05:26 05:26 WBC RBC Hgb 7.9 L Hct 23.7 L MCV MCH RDW Seg Neutrophils % Monocytes % (Manual) Seg Neutrophils # Monocytes # (Manual) PT INR D-Dimer Heparin Anti-Xa Level ABG pH POC ABG pCO2 POC ABG pO2 ABG Hemoglobin ABG Oxyhemoglobin ABG Sodium ABG Potassium ABG Chloride ABG Glucose Carboxyhemoglobin Sodium Chloride Carbon Dioxide BUN Creatinine Glucose POC Glucose 127 H Lactic Acid Calcium Phosphorus Magnesium Ferritin Total Bilirubin Direct Bilirubin 0.6 H AST 123 H ALT 105 H Alkaline Phosphatase 232 H Ammonia Lactate Dehydrogenase Troponin T C-Reactive Protein Total Protein 4.8 L Albumin 2.2 L Triglycerides Cholesterol HDL Cholesterol Lipase Arterial Blood Glucose Arterial Blood Ionized Calcium Urine WBC (Auto) Salicylates Acetaminophen Coronavirus (PCR) 03/04/21 03/04/21 03/04/21 05:26 06:01 06:53 WBC RBC Hgb Hct MCV MCH RDW Seg Neutrophils % Monocytes % (Manual) Seg Neutrophils # Monocytes # (Manual) PT INR D-Dimer Heparin Anti-Xa Level 0.71 H ABG pH POC ABG pCO2 POC ABG pO2 ABG Hemoglobin ABG Oxyhemoglobin ABG Sodium ABG Potassium ABG Chloride ABG Glucose Carboxyhemoglobin Sodium Chloride Carbon Dioxide BUN Creatinine Glucose POC Glucose 120 H 117 H Lactic Acid Calcium Phosphorus Magnesium Ferritin Total Bilirubin Direct Bilirubin AST ALT Alkaline Phosphatase Ammonia Lactate Dehydrogenase Troponin T C-Reactive Protein Total Protein Albumin Triglycerides Cholesterol HDL Cholesterol Lipase Arterial Blood Glucose Arterial Blood Ionized Calcium Urine WBC (Auto) Salicylates Acetaminophen Coronavirus (PCR) 03/04/21 03/04/21 03/04/21 07:57 10:17 10:17 WBC RBC 2.51 L Hgb 8.3 L Hct 25.3 L MCV 101 H MCH 33 H RDW 18.5 H Seg Neutrophils % Monocytes % (Manual) Seg Neutrophils # Monocytes # (Manual) PT INR D-Dimer Heparin Anti-Xa Level ABG pH POC ABG pCO2 POC ABG pO2 ABG Hemoglobin ABG Oxyhemoglobin ABG Sodium ABG Potassium ABG Chloride ABG Glucose Carboxyhemoglobin Sodium 136 L Chloride 93.1 L Carbon Dioxide 33 H BUN 46 H Creatinine 1.4 H Glucose 151 H POC Glucose 129 H Lactic Acid Calcium 7.5 L Phosphorus Magnesium Ferritin Total Bilirubin Direct Bilirubin AST 126 H ALT 100 H Alkaline Phosphatase 226 H Ammonia Lactate Dehydrogenase Troponin T C-Reactive Protein Total Protein 5.0 L Albumin 2.2 L Triglycerides Cholesterol HDL Cholesterol Lipase Arterial Blood Glucose Arterial Blood Ionized Calcium Urine WBC (Auto) Salicylates Acetaminophen Coronavirus (PCR) 03/04/21 03/04/21 03/04/21 10:17 10:17 11:26 WBC RBC Hgb Hct MCV MCH RDW Seg Neutrophils % Monocytes % (Manual) Seg Neutrophils # Monocytes # (Manual) PT 15.6 H INR 1.18 H D-Dimer Heparin Anti-Xa Level ABG pH POC ABG pCO2 POC ABG pO2 ABG Hemoglobin ABG Oxyhemoglobin ABG Sodium ABG Potassium ABG Chloride ABG Glucose Carboxyhemoglobin Sodium Chloride Carbon Dioxide BUN Creatinine Glucose POC Glucose 167 H Lactic Acid Calcium Phosphorus Magnesium Ferritin Total Bilirubin Direct Bilirubin AST ALT Alkaline Phosphatase Ammonia Lactate Dehydrogenase Troponin T C-Reactive Protein Total Protein Albumin Triglycerides Cholesterol HDL Cholesterol Lipase 78 H Arterial Blood Glucose Arterial Blood Ionized Calcium Urine WBC (Auto) Salicylates Acetaminophen Coronavirus (PCR) 03/04/21 03/04/21 03/04/21 13:04 16:26 17:58 WBC RBC Hgb 7.7 L Hct 23.2 L MCV MCH RDW Seg Neutrophils % Monocytes % (Manual) Seg Neutrophils # Monocytes # (Manual) PT INR D-Dimer Heparin Anti-Xa Level < 0.10 L ABG pH POC ABG pCO2 POC ABG pO2 ABG Hemoglobin ABG Oxyhemoglobin ABG Sodium ABG Potassium ABG Chloride ABG Glucose Carboxyhemoglobin Sodium Chloride Carbon Dioxide BUN Creatinine Glucose POC Glucose 167 H Lactic Acid Calcium Phosphorus Magnesium Ferritin Total Bilirubin Direct Bilirubin AST ALT Alkaline Phosphatase Ammonia Lactate Dehydrogenase Troponin T C-Reactive Protein Total Protein Albumin Triglycerides Cholesterol HDL Cholesterol Lipase Arterial Blood Glucose Arterial Blood Ionized Calcium Urine WBC (Auto) Salicylates Acetaminophen Coronavirus (PCR) 03/04/21 03/05/21 03/05/21 23:47 04:00 05:06 WBC RBC Hgb Hct MCV MCH RDW Seg Neutrophils % Monocytes % (Manual) Seg Neutrophils # Monocytes # (Manual) PT INR D-Dimer Heparin Anti-Xa Level ABG pH POC ABG pCO2 POC ABG pO2 129.1 H ABG Hemoglobin 8.3 L ABG Oxyhemoglobin ABG Sodium 131.4 L ABG Potassium ABG Chloride 95.0 L ABG Glucose 153 H Carboxyhemoglobin Sodium Chloride Carbon Dioxide BUN Creatinine Glucose POC Glucose 153 H 139 H Lactic Acid Calcium Phosphorus Magnesium Ferritin Total Bilirubin Direct Bilirubin AST ALT Alkaline Phosphatase Ammonia Lactate Dehydrogenase Troponin T C-Reactive Protein Total Protein Albumin Triglycerides Cholesterol HDL Cholesterol Lipase Arterial Blood Glucose 153 H Arterial Blood Ionized Calcium Urine WBC (Auto) Salicylates Acetaminophen Coronavirus (PCR) 03/05/21 03/05/21 03/05/21 11:43 13:35 13:35 WBC RBC 2.38 L Hgb 7.8 L Hct 23.8 L MCV 100 H MCH 33 H RDW 18.2 H Seg Neutrophils % Monocytes % (Manual) Seg Neutrophils # Monocytes # (Manual) PT INR D-Dimer Heparin Anti-Xa Level ABG pH POC ABG pCO2 POC ABG pO2 ABG Hemoglobin ABG Oxyhemoglobin ABG Sodium ABG Potassium ABG Chloride ABG Glucose Carboxyhemoglobin Sodium Chloride 94.4 L Carbon Dioxide BUN 49 H Creatinine 1.6 H Glucose 165 H POC Glucose 174 H Lactic Acid Calcium 7.5 L Phosphorus Magnesium Ferritin Total Bilirubin Direct Bilirubin AST ALT Alkaline Phosphatase Ammonia Lactate Dehydrogenase Troponin T C-Reactive Protein Total Protein Albumin Triglycerides Cholesterol HDL Cholesterol Lipase Arterial Blood Glucose Arterial Blood Ionized Calcium Urine WBC (Auto) Salicylates Acetaminophen Coronavirus (PCR) 03/05/21 03/05/21 03/05/21 17:57 21:27 Unknown WBC RBC Hgb Hct MCV MCH RDW Seg Neutrophils % Monocytes % (Manual) Seg Neutrophils # Monocytes # (Manual) PT INR D-Dimer Heparin Anti-Xa Level ABG pH POC ABG pCO2 POC ABG pO2 ABG Hemoglobin ABG Oxyhemoglobin ABG Sodium ABG Potassium ABG Chloride ABG Glucose Carboxyhemoglobin Sodium Chloride Carbon Dioxide BUN Creatinine Glucose POC Glucose 129 H 129 H Lactic Acid Calcium Phosphorus Magnesium Ferritin Total Bilirubin Direct Bilirubin AST ALT Alkaline Phosphatase Ammonia Lactate Dehydrogenase Troponin T C-Reactive Protein Total Protein Albumin Triglycerides Cholesterol HDL Cholesterol Lipase Arterial Blood Glucose Arterial Blood Ionized Calcium Urine WBC (Auto) Salicylates Acetaminophen Coronavirus (PCR) Positive A 03/06/21 03/06/21 03/06/21 03:30 04:30 05:20 WBC 15.2 H RBC 2.48 L Hgb 8.2 L Hct 24.9 L MCV 100 H MCH 33 H RDW 18.6 H Seg Neutrophils % 72.6 H Monocytes % (Manual) Seg Neutrophils # 11.1 H Monocytes # (Manual) PT INR D-Dimer Heparin Anti-Xa Level ABG pH POC ABG pCO2 49.7 H POC ABG pO2 65.1 L ABG Hemoglobin 9.1 L ABG Oxyhemoglobin 90.2 L ABG Sodium 131.2 L ABG Potassium ABG Chloride 96.0 L ABG Glucose 133 H Carboxyhemoglobin Sodium Chloride Carbon Dioxide BUN Creatinine Glucose POC Glucose Lactic Acid Calcium Phosphorus Magnesium Ferritin Total Bilirubin Direct Bilirubin AST ALT Alkaline Phosphatase Ammonia Lactate Dehydrogenase Troponin T C-Reactive Protein 27.90 H Total Protein Albumin Triglycerides Cholesterol HDL Cholesterol Lipase Arterial Blood Glucose 133 H Arterial Blood Ionized Calcium 4.2 L Urine WBC (Auto) Salicylates Acetaminophen Coronavirus (PCR) 03/06/21 03/06/21 03/06/21 05:20 05:30 11:52 WBC RBC Hgb Hct MCV MCH RDW Seg Neutrophils % Monocytes % (Manual) Seg Neutrophils # Monocytes # (Manual) PT INR D-Dimer Heparin Anti-Xa Level ABG pH POC ABG pCO2 POC ABG pO2 ABG Hemoglobin ABG Oxyhemoglobin ABG Sodium ABG Potassium ABG Chloride ABG Glucose Carboxyhemoglobin Sodium 135 L Chloride 94.5 L Carbon Dioxide BUN 49 H Creatinine Glucose 121 H POC Glucose 123 H 123 H Lactic Acid Calcium 7.3 L Phosphorus Magnesium 1.50 L Ferritin Total Bilirubin Direct Bilirubin AST 120 H ALT 74 H Alkaline Phosphatase 306 H Ammonia Lactate Dehydrogenase Troponin T C-Reactive Protein Total Protein 4.5 L Albumin 2.0 L Triglycerides Cholesterol HDL Cholesterol Lipase Arterial Blood Glucose Arterial Blood Ionized Calcium Urine WBC (Auto) Salicylates Acetaminophen Coronavirus (PCR) 03/06/21 03/06/21 03/06/21 14:34 17:45 23:36 WBC RBC Hgb Hct MCV MCH RDW Seg Neutrophils % Monocytes % (Manual) Seg Neutrophils # Monocytes # (Manual) PT INR D-Dimer Heparin Anti-Xa Level ABG pH POC ABG pCO2 POC ABG pO2 ABG Hemoglobin ABG Oxyhemoglobin ABG Sodium ABG Potassium ABG Chloride ABG Glucose Carboxyhemoglobin Sodium Chloride Carbon Dioxide BUN Creatinine Glucose POC Glucose 140 H 209 H Lactic Acid Calcium Phosphorus Magnesium Ferritin Total Bilirubin Direct Bilirubin AST ALT Alkaline Phosphatase Ammonia Lactate Dehydrogenase Troponin T C-Reactive Protein Total Protein Albumin Triglycerides Cholesterol HDL Cholesterol Lipase Arterial Blood Glucose Arterial Blood Ionized Calcium Urine WBC (Auto) 103.0 H Salicylates Acetaminophen Coronavirus (PCR) 03/07/21 03/07/21 03/07/21 03:00 05:32 08:16 WBC RBC Hgb Hct MCV MCH RDW Seg Neutrophils % Monocytes % (Manual) Seg Neutrophils # Monocytes # (Manual) PT INR D-Dimer Heparin Anti-Xa Level ABG pH POC ABG pCO2 POC ABG pO2 ABG Hemoglobin 8.9 L ABG Oxyhemoglobin ABG Sodium 131.4 L ABG Potassium ABG Chloride ABG Glucose 224 H Carboxyhemoglobin Sodium 136 L Chloride 95.3 L Carbon Dioxide BUN 45 H Creatinine Glucose 210 H POC Glucose 213 H Lactic Acid Calcium 8.0 L Phosphorus Magnesium Ferritin Total Bilirubin 1.30 H Direct Bilirubin AST 144 H ALT 66 H Alkaline Phosphatase 335 H Ammonia Lactate Dehydrogenase Troponin T C-Reactive Protein Total Protein 4.9 L Albumin 2.1 L Triglycerides Cholesterol HDL Cholesterol Lipase Arterial Blood Glucose 224 H Arterial Blood Ionized Calcium 4.3 L Urine WBC (Auto) Salicylates Acetaminophen Coronavirus (PCR) 03/07/21 03/07/21 03/07/21 08:16 08:16 08:16 WBC RBC 2.47 L Hgb 8.2 L Hct 24.6 L MCV 100 H MCH 33 H RDW 18.1 H Seg Neutrophils % Monocytes % (Manual) Seg Neutrophils # Monocytes # (Manual) PT INR D-Dimer 403.72 H Heparin Anti-Xa Level ABG pH POC ABG pCO2 POC ABG pO2 ABG Hemoglobin ABG Oxyhemoglobin ABG Sodium ABG Potassium ABG Chloride ABG Glucose Carboxyhemoglobin Sodium Chloride Carbon Dioxide BUN Creatinine Glucose POC Glucose Lactic Acid Calcium Phosphorus Magnesium Ferritin Total Bilirubin Direct Bilirubin AST ALT Alkaline Phosphatase Ammonia Lactate Dehydrogenase 453 H Troponin T C-Reactive Protein 32.50 H Total Protein Albumin Triglycerides Cholesterol HDL Cholesterol Lipase Arterial Blood Glucose Arterial Blood Ionized Calcium Urine WBC (Auto) Salicylates Acetaminophen Coronavirus (PCR) 03/07/21 03/07/21 03/07/21 08:16 11:24 17:22 WBC RBC Hgb Hct MCV MCH RDW Seg Neutrophils % Monocytes % (Manual) Seg Neutrophils # Monocytes # (Manual) PT INR D-Dimer Heparin Anti-Xa Level ABG pH POC ABG pCO2 POC ABG pO2 ABG Hemoglobin ABG Oxyhemoglobin ABG Sodium ABG Potassium ABG Chloride ABG Glucose Carboxyhemoglobin Sodium Chloride Carbon Dioxide BUN Creatinine Glucose POC Glucose 205 H 211 H Lactic Acid Calcium Phosphorus Magnesium Ferritin > 2000.0 H Total Bilirubin Direct Bilirubin AST ALT Alkaline Phosphatase Ammonia Lactate Dehydrogenase Troponin T C-Reactive Protein Total Protein Albumin Triglycerides Cholesterol HDL Cholesterol Lipase Arterial Blood Glucose Arterial Blood Ionized Calcium Urine WBC (Auto) Salicylates Acetaminophen Coronavirus (PCR) 03/07/21 03/08/21 03/08/21 Unknown 00:05 04:00 WBC RBC Hgb Hct MCV MCH RDW Seg Neutrophils % Monocytes % (Manual) Seg Neutrophils # Monocytes # (Manual) PT INR D-Dimer Heparin Anti-Xa Level 0.94 H ABG pH 7.452 H POC ABG pCO2 POC ABG pO2 75.5 L ABG Hemoglobin 10.0 L ABG Oxyhemoglobin 93.5 L ABG Sodium 134.7 L ABG Potassium ABG Chloride ABG Glucose 268 H Carboxyhemoglobin 0.3 L Sodium Chloride Carbon Dioxide BUN Creatinine Glucose POC Glucose 253 H Lactic Acid Calcium Phosphorus Magnesium Ferritin Total Bilirubin Direct Bilirubin AST ALT Alkaline Phosphatase Ammonia Lactate Dehydrogenase Troponin T C-Reactive Protein Total Protein Albumin Triglycerides Cholesterol HDL Cholesterol Lipase Arterial Blood Glucose 268 H Arterial Blood Ionized Calcium 4.5 L Urine WBC (Auto) Salicylates Acetaminophen Coronavirus (PCR) 03/08/21 03/08/21 03/08/21 05:27 06:10 06:10 WBC RBC 2.62 L Hgb 8.4 L Hct 26.0 L MCV 100 H MCH RDW 18.0 H Seg Neutrophils % Monocytes % (Manual) Seg Neutrophils # Monocytes # (Manual) PT INR D-Dimer Heparin Anti-Xa Level ABG pH POC ABG pCO2 POC ABG pO2 ABG Hemoglobin ABG Oxyhemoglobin ABG Sodium ABG Potassium ABG Chloride ABG Glucose Carboxyhemoglobin Sodium Chloride Carbon Dioxide BUN 49 H Creatinine Glucose 280 H POC Glucose 273 H Lactic Acid Calcium Phosphorus Magnesium Ferritin Total Bilirubin Direct Bilirubin AST 130 H ALT 68 H Alkaline Phosphatase 440 H Ammonia Lactate Dehydrogenase Troponin T C-Reactive Protein Total Protein 5.3 L Albumin 1.9 L Triglycerides Cholesterol HDL Cholesterol Lipase Arterial Blood Glucose Arterial Blood Ionized Calcium Urine WBC (Auto) Salicylates Acetaminophen Coronavirus (PCR) 03/08/21 11:27 WBC RBC Hgb Hct MCV MCH RDW Seg Neutrophils % Monocytes % (Manual) Seg Neutrophils # Monocytes # (Manual) PT INR D-Dimer Heparin Anti-Xa Level ABG pH POC ABG pCO2 POC ABG pO2 ABG Hemoglobin ABG Oxyhemoglobin ABG Sodium ABG Potassium ABG Chloride ABG Glucose Carboxyhemoglobin Sodium Chloride Carbon Dioxide BUN Creatinine Glucose POC Glucose 258 H Lactic Acid Calcium Phosphorus Magnesium Ferritin Total Bilirubin Direct Bilirubin AST ALT Alkaline Phosphatase Ammonia Lactate Dehydrogenase Troponin T C-Reactive Protein Total Protein Albumin Triglycerides Cholesterol HDL Cholesterol Lipase Arterial Blood Glucose Arterial Blood Ionized Calcium Urine WBC (Auto) Salicylates Acetaminophen Coronavirus (PCR) Chest x-ray: image reviewed (increasing L>R infiltrates) Allied health notes reviewed: nursing
--- NOTE | 2021-03-08 13:58 | Progress Note ---
Assessment and Plan Hypertension * Optimize rate control: Agree with metoprolol 25mg BID HFpEF * Echo 12/13/2020 - EF 55-60%, otherwise technically difficult study. * Echo 05/2016 - LV mildly dilated, EF 55-60%, grade II diastolic dysfxn, RV mildly enlarged, normal RV sys fxn, LA mildly dilated, RA mildly dilated, mild-mod AR, mild TX, mild aortic root dilatation. * May benefit from addition of gentle IV diuresis when hemodynamically stable. COVID-19 PNA Acute hypoxic resporitary failure * Patient test positive for COVID-19 * Secondary to pna * Currently intubated. Pulmonology and infectious disease are following DVT of RLE * Continue heparin gtt. Plan to transition to Coumadin once patient is hemodynamically stable * He was diagnosed with a LLE DVT in March 2020 and appears to have been on Coumadin as an outpatient. Patient seen in conjunction with Dr. Heard who agrees with this plan of care. Will see as needed for the weekend. - Patient Problems (1) ALPHONSO (acute kidney injury) Current Visit: Yes Status: Acute (2) Acute and chronic respiratory failure ([id number]) Current Visit: Yes Status: Acute (3) Acute deep vein thrombosis (DVT) of right lower extremity Current Visit: Yes Status: Acute (4) Encephalopathy Current Visit: Yes Status: Acute (5) NSTEMI (non-ST elevated myocardial infarction) Current Visit: Yes Status: Acute (6) Transaminitis Current Visit: Yes Status: Acute (7) COPD (chronic obstructive pulmonary disease) Current Visit: Yes Status: Chronic (8) Chronic heart failure with preserved ejection fraction (HFpEF) Current Visit: Yes Status: Chronic (9) DM2 (diabetes mellitus, type 2) Current Visit: Yes Status: Chronic (10) H/O: HTN (hypertension) Current Visit: Yes Status: Chronic (11) History of pulmonary embolus (PE) Current Visit: Yes Status: Chronic (12) COVID-19 Current Visit: Yes Status: Acute Subjective Principal diagnosis: Ac hypoxemic resp failure; NSTEMI; ALPHONSO; Sepsis; PNA; CHF; DM II; AMS Interval history: Patient intubated. Sinus tachy 110s-120s on monitor with no events Objective Last Vital Signs Temp 98.8 F 03/08/21 11:41 Pulse 89 03/08/21 12:00 Resp 13 07/30/21 12:00 BP 185/100 03/08/21 08:00 Pulse Ox 97 03/08/21 12:00 - Physical Examination General: No Apparent Distress, Other (intubated) HEENT: Positive: Normocephaly Neck: Positive: trachea midline Cardiac: Positive: Regular Rhythm, Tachycardia Lungs: Positive: Ventilated Respirations Neuro: Positive: Other (intubated) Abdomen: Positive: Soft Skin: Negative: Rash Incision: Cardiac Cath Site Musculoskeletal: No Fluid Collection Extremities: Present: lower extr. pulses, +2 Edema, warm, Other (anasarca) - Labs and Meds Cardiac Enzymes 03/08/21 Range/Units 06:10 AST 130 H (5-40) units/L CBC 03/08/21 Range/Units 06:10 WBC 8.8 (4.5-11.0) K/mm3 RBC 2.62 L (3.65-5.03) M/mm3 Hgb 8.4 L (11.8-15.2) gm/dl Hct 26.0 L (35.5-45.6) % Plt Count 169 (140-440) K/mm3 Comprehensive Metabolic Panel 03/08/21 Range/Units 06:10 Sodium 139 (137-145) mmol/L Potassium 4.3 (3.6-5.0) mmol/L Chloride 98.0 (98-107) mmol/L Carbon Dioxide 28 (22-30) mmol/L BUN 49 H (9-20) mg/dL Creatinine 1.1 (0.8-1.3) mg/dL Glucose 280 H (75-100) mg/dL Calcium 8.7 (8.4-10.2) mg/dL AST 130 H (5-40) units/L ALT 68 H (7-56) units/L Alkaline Phosphatase 440 H (35-129) units/L Total Protein 5.3 L (6.3-8.2) g/dL Albumin 1.9 L (3.9-5) g/dL - Imaging and Cardiology EKG: report reviewed, image reviewed Echo: report reviewed (12/2020 - EF 55-60%) Cardiac cath: pending - Telemetry EKG Rhythm: Sinus Tachycardia - EKG Sinus rhythms and dysrhythmias: sinus tachycardia AV and intraventricular conduction: right bundle branch block Repolarization changes or abnormalities: nonspecific abnormality, ST segment, and/or T wave - Allied health notes Allied health notes reviewed: nursing
[2021-03-08] MEDS: METOPROLOL TARTRATE 25 MG TAB PO SCH ×2 (16:23→22:33)
[2021-03-08] MEDS: hydrALAZINE 20 MG/1 ML INJ IV PRN ×2 (16:23→23:29)
[2021-03-08] MEDS: SODIUM CHLORIDE 0.9% 50 ML IVPB IV SCH (21:46)
[2021-03-08] MEDS: REMDESIVIR 100 MG in SODIUM CHLORIDE 0.9% 250ML 250 ML IV SCH (21:46)
[2021-03-08] MEDS ORDERED: INSULIN GLARGINE 100 UNITS/ML SUB-Q SCH (22:00)
[2021-03-09] MEDS: fentaNYL DRIP Premix 2,000 MCG/100 ML BAG IV SCH ×4 (06:10→22:16)
[2021-03-09] MEDS: INSULIN LISPRO 100 UNIT/ML SUB-Q SCH ×4 (06:10→23:59)
--- NOTE | 2021-03-09 08:31 | Progress Note ---
Assessment and Plan Acute hypoxemic respiratory failure COVID pneumonia/ARDS NSTEMI Acute kidney injury Severe sepsis Bilateral pneumonia H/O congestive heart failure Diabetes type 2 Elevated serum transaminases Anemia that is microcytic -continue to titrate supplemental oxygen to keep SpO2 89-92% -ABG in the am, if acceptable, wean down PEEP to 6 and initiate SBT -Will give a dose of paralytic to help facilitate an ETtube exchange -Continue with Fentanyl infusion per CPOT score - continue Daily assessment for readiness to wean - continue to wean supplemental oxygen for target O2 sats > 90% acutely - VAP bundle addressed, aspiration precautions HOB >40 - continue lung protective strategies - continue bronchodilators with pulmonary hygiene per RT -Give a dose of Furosemide, he is [id number] liters positive since admission. -monitor hemodynamics closely, renal function and electrolytes while on intermittent diuretic therapy -Sub-optimal blood pressure control, medications adjusted - continue accuchecks with glycemic control per SSI (While critically ill target blood glucose of 140-180 mg/dL; avoid hypoglycemia) Glycemic control remains sub-optimal , will adjust insulin therapy - sedation prn for target RASS 0 to -1 - continue to avoid benzodiazepines, reduce the possibility of delirium - complete Antibiotics per ID recs, de-escalate based on clinical response and culture data. - Maintenance of sleep-wake cycle, avoid delirium - continue enteric nutritional support at goal rate as tolerated - Stress ulcer prophylaxis-Famotidine - VTE prophylaxis- he is on therapeutic heparin infusion. Plan to change to therapeutic Enoxaparin, since his renal function is normal. This will limit the amount of volume Monitro hemoglobin and blood pressure closely - PT/OT/ROM exercises - continue mobility , off loading and frequent turning per facility protocol for pressure ulcer prevention - continue other care per attending / other consultants COVID SPECIFIC INTERVENTIONS - continue contact and airborne isolation - Remdesivir as per ID/Pulmonary developed protocols - systemic steroids for severe COVID-19 infection - continue to trend and monitor inflammatory markers per facility protocol - therapeutic anticoagulation per system Protocol based on d-dimer and clinical considerations (On IV Heparin for lower extremity DVT) -CRP is elevated but not a candidate for Tociluzimab- he has been on MVS CONDITION: CRITICAL PROGNOSIS: GUARDED CODE STATUS: FULL CODE The high probability of a clinically significant, sudden or life-threatening deterioration of the [respiratory, cardiovascular & neurologic] system(s) required my full and direct attention, intervention and personal management. The aggregate critical care time was [35] minutes without overlap. Time includes spent on; [x] Data Review and interpretation [x] Patient assessment and monitoring of vital signs [x] Documentation [x] Medication orders and management Subjective Date of service: 03/09/21 Principal diagnosis: Ac hypoxemic resp failure; NSTEMI; ALPHONSO; Sepsis; PNA; CHF; DM II; AMS Interval history: Patient is seen today for: Acute hypoxemic respiratory failure; COVID infection; NSTEMI; ALPHONSO; Severe sepsis; Pneumonia; CHF; DM II; Acute encephalopathy Seen and examined at bedside; 24hour events reviewed; nursing and respiratory care staff consulted; no adverse overnight events reported to me; resting peacefully in bed;orally intubated on MVS, awake and alert, interactive PEEP +8/FIO2 45%. PEEP was decreased to 8 this morning based on pAO2 on ABGs. On Fentanyl at 2mcg, Heparin infusion No reported or documented fevers, no vomiting, no diarrhea. HAFSA PICC. The cuff on his tracheal tube is deflated- it appears he may have bitten it Objective Vital Signs - 12hr 03/08/21 03/08/21 03/08/21 21:00 22:00 22:33 Temperature Pulse Rate 94 H 100 H 102 H Pulse Rate [ From Monitor] Respiratory 18 13 Rate Blood Pressure 180/111 180/111 180/93 O2 Sat by Pulse 96 96 Oximetry 03/08/21 03/08/21 03/08/21 23:00 23:13 23:29 Temperature Pulse Rate 94 H 105 H 90 Pulse Rate [ From Monitor] Respiratory 18 Rate Blood Pressure 180/111 192/99 181/90 O2 Sat by Pulse 96 99 Oximetry 03/08/21 03/09/21 03/09/21 23:38 00:00 01:00 Temperature 98.8 F Pulse Rate 104 H 107 H Pulse Rate [ 102 H From Monitor] Respiratory 20 14 Rate Blood Pressure 180/111 196/118 O2 Sat by Pulse 97 97 Oximetry 03/09/21 03/09/21 03/09/21 02:00 03:00 03:45 Temperature 98.3 F Pulse Rate 103 H 81 Pulse Rate [ From Monitor] Respiratory 21 16 Rate Blood Pressure 196/118 196/118 O2 Sat by Pulse 95 95 Oximetry 03/09/21 03/09/21 03/09/21 04:00 05:00 06:00 Temperature Pulse Rate 72 91 H 99 H Pulse Rate [ 102 H From Monitor] Respiratory 17 14 17 Rate Blood Pressure 196/118 132/72 132/72 O2 Sat by Pulse 98 95 99 Oximetry 03/09/21 07:00 Temperature Pulse Rate 82 Pulse Rate [ From Monitor] Respiratory 16 Rate Blood Pressure 132/72 O2 Sat by Pulse 96 Oximetry Constitutional: no acute distress, alert, other (middle aged obese male, no patient -ventilator dyssynchrony) Eyes: non-icteric ENT: oropharynx moist, other (ETT 24 cm CLINT) Neck: supple, no lymphadenopathy, no JVD, other (large circumference) Effort: mildly labored Ascultation: Bilateral: diminished breath sounds, rhonchi Percussion: Bilateral: not dull Cardiovascular: regular rate and rhythm, other (S1,S2) Gastrointestinal: normoactive bowel sounds, soft, non-tender, non-distended (protuberant) Integumentary: normal Extremities: no cyanosis, pulses normal, no ischemia or petechiae, edema (trace) Neurologic: non-focal exam (grossly), pupils equal and round, CN II-XII normal, motor strength normal and Psychiatric: other (sedated) CBC and BMP: 03/09/21 08:00 03/09/21 08:00 ABG, PT/INR, D-dimer: ABG ABG pH 7.456 (7.320-7.450) H 03/09/21 04:00 POC ABG pCO2 38.9 mmHg (32.0-48.0) 03/09/21 04:00 POC ABG pO2 89.6 mmHg (83-108) 03/09/21 04:00 POC ABG HCO3 26.8 03/09/21 04:00 ABG O2 Saturation 96.8 (0-100) 03/09/21 04:00 PT/INR, D-dimer PT 15.6 Sec. (12.2-14.9) H 03/04/21 10:17 INR 1.18 (0.87-1.13) H 03/04/21 10:17 D-Dimer 403.72 ng/mlDDU (0-234) H 03/07/21 08:16 Abnormal lab findings: Abnormal Labs 03/01/21 03/01/21 03/01/21 19:15 19:21 19:21 WBC 12.7 H RBC 2.77 L Hgb 9.1 L Hct 27.7 L MCV 100 H MCH 33 H RDW 18.0 H Seg Neutrophils % Monocytes % (Manual) 17.0 H Seg Neutrophils # Monocytes # (Manual) 2.2 H PT INR D-Dimer Heparin Anti-Xa Level ABG pH POC ABG pCO2 POC ABG pO2 64.9 L ABG Hemoglobin 9.3 L ABG Oxyhemoglobin 93.0 L ABG Sodium 133.8 L ABG Potassium ABG Chloride 97.0 L ABG Glucose 191 H Carboxyhemoglobin Sodium Chloride Carbon Dioxide BUN Creatinine Glucose POC Glucose Lactic Acid Calcium Phosphorus Magnesium Ferritin Total Bilirubin Direct Bilirubin AST ALT Alkaline Phosphatase Ammonia Lactate Dehydrogenase Troponin T 0.493 H* C-Reactive Protein Total Protein Albumin Triglycerides 400 H Cholesterol 232 H HDL Cholesterol 22 L Lipase Arterial Blood Glucose 191 H Arterial Blood Ionized Calcium 4.4 L Urine WBC (Auto) Salicylates Acetaminophen Coronavirus (PCR) 03/01/21 03/01/21 03/01/21 19:21 19:21 19:21 WBC RBC Hgb Hct MCV MCH RDW Seg Neutrophils % Monocytes % (Manual) Seg Neutrophils # Monocytes # (Manual) PT 16.6 H INR 1.28 H D-Dimer Heparin Anti-Xa Level ABG pH POC ABG pCO2 POC ABG pO2 ABG Hemoglobin ABG Oxyhemoglobin ABG Sodium ABG Potassium ABG Chloride ABG Glucose Carboxyhemoglobin Sodium 132 L Chloride 92.2 L Carbon Dioxide BUN 43 H Creatinine 2.4 H Glucose 190 H POC Glucose Lactic Acid 2.90 H* Calcium Phosphorus Magnesium Ferritin Total Bilirubin 1.60 H Direct Bilirubin 1.2 H AST 275 H ALT 156 H Alkaline Phosphatase 282 H Ammonia Lactate Dehydrogenase Troponin T C-Reactive Protein Total Protein 5.8 L Albumin 2.6 L Triglycerides Cholesterol HDL Cholesterol Lipase 120 H Arterial Blood Glucose Arterial Blood Ionized Calcium Urine WBC (Auto) Salicylates Acetaminophen Coronavirus (PCR) 03/01/21 03/01/21 03/01/21 19:21 19:21 19:21 WBC RBC Hgb Hct MCV MCH RDW Seg Neutrophils % Monocytes % (Manual) Seg Neutrophils # Monocytes # (Manual) PT INR D-Dimer Heparin Anti-Xa Level ABG pH POC ABG pCO2 POC ABG pO2 ABG Hemoglobin ABG Oxyhemoglobin ABG Sodium ABG Potassium ABG Chloride ABG Glucose Carboxyhemoglobin Sodium Chloride Carbon Dioxide BUN Creatinine Glucose POC Glucose Lactic Acid Calcium Phosphorus Magnesium Ferritin Total Bilirubin Direct Bilirubin AST ALT Alkaline Phosphatase Ammonia 71.0 H Lactate Dehydrogenase Troponin T C-Reactive Protein Total Protein Albumin Triglycerides Cholesterol HDL Cholesterol Lipase Arterial Blood Glucose Arterial Blood Ionized Calcium Urine WBC (Auto) Salicylates < 0.3 L Acetaminophen 5.0 L Coronavirus (PCR) 03/01/21 03/01/21 03/02/21 20:55 20:55 00:01 WBC RBC Hgb Hct MCV MCH RDW Seg Neutrophils % Monocytes % (Manual) Seg Neutrophils # Monocytes # (Manual) PT INR D-Dimer Heparin Anti-Xa Level ABG pH 7.234 L POC ABG pCO2 POC ABG pO2 240.5 H ABG Hemoglobin 9.3 L ABG Oxyhemoglobin 99.1 H ABG Sodium 135.3 L ABG Potassium ABG Chloride ABG Glucose 286 H Carboxyhemoglobin 0.3 L Sodium Chloride Carbon Dioxide BUN Creatinine Glucose POC Glucose Lactic Acid 4.30 H* Calcium Phosphorus Magnesium Ferritin Total Bilirubin Direct Bilirubin AST ALT Alkaline Phosphatase Ammonia Lactate Dehydrogenase Troponin T 0.484 H* C-Reactive Protein Total Protein Albumin Triglycerides Cholesterol HDL Cholesterol Lipase Arterial Blood Glucose 286 H Arterial Blood Ionized Calcium Urine WBC (Auto) Salicylates Acetaminophen Coronavirus (PCR) 03/02/21 03/02/21 03/02/21 03:42 05:23 06:35 WBC RBC Hgb Hct MCV MCH RDW Seg Neutrophils % Monocytes % (Manual) Seg Neutrophils # Monocytes # (Manual) PT INR D-Dimer Heparin Anti-Xa Level ABG pH 7.225 L POC ABG pCO2 POC ABG pO2 181.8 H ABG Hemoglobin 9.4 L ABG Oxyhemoglobin 98.6 H ABG Sodium 132.1 L ABG Potassium 5.0 H ABG Chloride ABG Glucose 454 H Carboxyhemoglobin 0.3 L Sodium Chloride Carbon Dioxide BUN Creatinine Glucose POC Glucose 410 H Lactic Acid 7.50 H* Calcium Phosphorus Magnesium Ferritin Total Bilirubin Direct Bilirubin AST ALT Alkaline Phosphatase Ammonia Lactate Dehydrogenase Troponin T C-Reactive Protein Total Protein Albumin Triglycerides Cholesterol HDL Cholesterol Lipase Arterial Blood Glucose 454 H Arterial Blood Ionized Calcium 4.2 L Urine WBC (Auto) Salicylates Acetaminophen Coronavirus (PCR) 03/02/21 03/02/21 03/02/21 10:48 10:48 10:48 WBC RBC Hgb Hct MCV MCH RDW Seg Neutrophils % Monocytes % (Manual) Seg Neutrophils # Monocytes # (Manual) PT INR D-Dimer Heparin Anti-Xa Level ABG pH POC ABG pCO2 POC ABG pO2 ABG Hemoglobin ABG Oxyhemoglobin ABG Sodium ABG Potassium ABG Chloride ABG Glucose Carboxyhemoglobin Sodium 132 L Chloride 93.3 L Carbon Dioxide 20 L BUN 46 H Creatinine 1.9 H Glucose 503 H* POC Glucose Lactic Acid 3.40 H* Calcium 7.9 L Phosphorus 5.80 H Magnesium Ferritin Total Bilirubin Direct Bilirubin AST ALT Alkaline Phosphatase Ammonia Lactate Dehydrogenase Troponin T C-Reactive Protein Total Protein Albumin Triglycerides Cholesterol HDL Cholesterol Lipase Arterial Blood Glucose Arterial Blood Ionized Calcium Urine WBC (Auto) Salicylates Acetaminophen Coronavirus (PCR) 03/02/21 03/02/21 03/02/21 11:23 11:38 15:33 WBC RBC Hgb Hct MCV MCH RDW Seg Neutrophils % Monocytes % (Manual) Seg Neutrophils # Monocytes # (Manual) PT INR D-Dimer Heparin Anti-Xa Level ABG pH 7.318 L POC ABG pCO2 POC ABG pO2 ABG Hemoglobin 9.2 L ABG Oxyhemoglobin ABG Sodium 133.2 L ABG Potassium ABG Chloride ABG Glucose 504 H Carboxyhemoglobin 0.3 L Sodium Chloride Carbon Dioxide BUN Creatinine Glucose POC Glucose 468 H 445 H Lactic Acid Calcium Phosphorus Magnesium Ferritin Total Bilirubin Direct Bilirubin AST ALT Alkaline Phosphatase Ammonia Lactate Dehydrogenase Troponin T C-Reactive Protein Total Protein Albumin Triglycerides Cholesterol HDL Cholesterol Lipase Arterial Blood Glucose 504 H Arterial Blood Ionized Calcium 4.2 L Urine WBC (Auto) Salicylates Acetaminophen Coronavirus (PCR) 03/02/21 03/02/21 03/02/21 16:28 16:28 16:28 WBC RBC Hgb 8.8 L Hct 26.0 L MCV MCH RDW Seg Neutrophils % Monocytes % (Manual) Seg Neutrophils # Monocytes # (Manual) PT 15.2 H INR 1.14 H D-Dimer Heparin Anti-Xa Level ABG pH POC ABG pCO2 POC ABG pO2 ABG Hemoglobin ABG Oxyhemoglobin ABG Sodium ABG Potassium ABG Chloride ABG Glucose Carboxyhemoglobin Sodium 135 L Chloride 93.8 L Carbon Dioxide BUN 48 H Creatinine 1.8 H Glucose 454 H POC Glucose Lactic Acid Calcium 7.6 L Phosphorus Magnesium Ferritin Total Bilirubin Direct Bilirubin AST ALT Alkaline Phosphatase Ammonia Lactate Dehydrogenase Troponin T C-Reactive Protein Total Protein Albumin Triglycerides Cholesterol HDL Cholesterol Lipase Arterial Blood Glucose Arterial Blood Ionized Calcium Urine WBC (Auto) Salicylates Acetaminophen Coronavirus (PCR) 03/02/21 03/02/21 03/02/21 17:39 18:52 20:09 WBC RBC Hgb Hct MCV MCH RDW Seg Neutrophils % Monocytes % (Manual) Seg Neutrophils # Monocytes # (Manual) PT INR D-Dimer Heparin Anti-Xa Level ABG pH POC ABG pCO2 POC ABG pO2 ABG Hemoglobin ABG Oxyhemoglobin ABG Sodium ABG Potassium ABG Chloride ABG Glucose Carboxyhemoglobin Sodium Chloride Carbon Dioxide BUN Creatinine Glucose POC Glucose 404 H 357 H 347 H Lactic Acid Calcium Phosphorus Magnesium Ferritin Total Bilirubin Direct Bilirubin AST ALT Alkaline Phosphatase Ammonia Lactate Dehydrogenase Troponin T C-Reactive Protein Total Protein Albumin Triglycerides Cholesterol HDL Cholesterol Lipase Arterial Blood Glucose Arterial Blood Ionized Calcium Urine WBC (Auto) Salicylates Acetaminophen Coronavirus (PCR) 03/02/21 03/02/21 03/02/21 21:03 22:00 22:55 WBC RBC Hgb Hct MCV MCH RDW Seg Neutrophils % Monocytes % (Manual) Seg Neutrophils # Monocytes # (Manual) PT INR D-Dimer Heparin Anti-Xa Level ABG pH POC ABG pCO2 POC ABG pO2 ABG Hemoglobin ABG Oxyhemoglobin ABG Sodium ABG Potassium ABG Chloride ABG Glucose Carboxyhemoglobin Sodium Chloride Carbon Dioxide BUN Creatinine Glucose POC Glucose 307 H 270 H 237 H Lactic Acid Calcium Phosphorus Magnesium Ferritin Total Bilirubin Direct Bilirubin AST ALT Alkaline Phosphatase Ammonia Lactate Dehydrogenase Troponin T C-Reactive Protein Total Protein Albumin Triglycerides Cholesterol HDL Cholesterol Lipase Arterial Blood Glucose Arterial Blood Ionized Calcium Urine WBC (Auto) Salicylates Acetaminophen Coronavirus (PCR) 03/03/21 03/03/21 03/03/21 00:02 00:57 02:01 WBC RBC Hgb Hct MCV MCH RDW Seg Neutrophils % Monocytes % (Manual) Seg Neutrophils # Monocytes # (Manual) PT INR D-Dimer Heparin Anti-Xa Level ABG pH POC ABG pCO2 POC ABG pO2 ABG Hemoglobin ABG Oxyhemoglobin ABG Sodium ABG Potassium ABG Chloride ABG Glucose Carboxyhemoglobin Sodium Chloride Carbon Dioxide BUN Creatinine Glucose POC Glucose 252 H 214 H 261 H Lactic Acid Calcium Phosphorus Magnesium Ferritin Total Bilirubin Direct Bilirubin AST ALT Alkaline Phosphatase Ammonia Lactate Dehydrogenase Troponin T C-Reactive Protein Total Protein Albumin Triglycerides Cholesterol HDL Cholesterol Lipase Arterial Blood Glucose Arterial Blood Ionized Calcium Urine WBC (Auto) Salicylates Acetaminophen Coronavirus (PCR) 03/03/21 03/03/21 03/03/21 03:07 03:10 03:50 WBC 13.7 H RBC 2.69 L Hgb 8.7 L Hct 26.9 L MCV 100 H MCH RDW 18.5 H Seg Neutrophils % 79.0 H Monocytes % (Manual) Seg Neutrophils # 10.8 H Monocytes # (Manual) PT INR D-Dimer Heparin Anti-Xa Level ABG pH POC ABG pCO2 50.9 H POC ABG pO2 81.9 L ABG Hemoglobin 8.7 L ABG Oxyhemoglobin ABG Sodium 134.2 L ABG Potassium ABG Chloride 96.0 L ABG Glucose 279 H Carboxyhemoglobin 0.4 L Sodium Chloride Carbon Dioxide BUN Creatinine Glucose POC Glucose 276 H Lactic Acid Calcium Phosphorus Magnesium Ferritin Total Bilirubin Direct Bilirubin AST ALT Alkaline Phosphatase Ammonia Lactate Dehydrogenase Troponin T C-Reactive Protein Total Protein Albumin Triglycerides Cholesterol HDL Cholesterol Lipase Arterial Blood Glucose 279 H Arterial Blood Ionized Calcium 3.9 L Urine WBC (Auto) Salicylates Acetaminophen Coronavirus (PCR) 03/03/21 03/03/21 03/03/21 03:50 04:06 04:32 WBC RBC Hgb Hct MCV MCH RDW Seg Neutrophils % Monocytes % (Manual) Seg Neutrophils # Monocytes # (Manual) PT INR D-Dimer Heparin Anti-Xa Level ABG pH POC ABG pCO2 POC ABG pO2 ABG Hemoglobin ABG Oxyhemoglobin ABG Sodium ABG Potassium ABG Chloride ABG Glucose Carboxyhemoglobin Sodium Chloride 94.2 L Carbon Dioxide BUN 45 H Creatinine 1.9 H Glucose 261 H POC Glucose 256 H Lactic Acid Calcium 7.3 L Phosphorus Magnesium Ferritin Total Bilirubin Direct Bilirubin 0.9 H AST 208 H ALT 148 H Alkaline Phosphatase 251 H Ammonia Lactate Dehydrogenase Troponin T C-Reactive Protein Total Protein 5.5 L Albumin 2.4 L Triglycerides Cholesterol HDL Cholesterol Lipase Arterial Blood Glucose Arterial Blood Ionized Calcium Urine WBC (Auto) Salicylates Acetaminophen Coronavirus (PCR) 03/03/21 03/03/21 03/03/21 05:23 06:06 07:07 WBC RBC Hgb Hct MCV MCH RDW Seg Neutrophils % Monocytes % (Manual) Seg Neutrophils # Monocytes # (Manual) PT INR D-Dimer Heparin Anti-Xa Level ABG pH POC ABG pCO2 POC ABG pO2 ABG Hemoglobin ABG Oxyhemoglobin ABG Sodium ABG Potassium ABG Chloride ABG Glucose Carboxyhemoglobin Sodium Chloride Carbon Dioxide BUN Creatinine Glucose POC Glucose 214 H 249 H 237 H Lactic Acid Calcium Phosphorus Magnesium Ferritin Total Bilirubin Direct Bilirubin AST ALT Alkaline Phosphatase Ammonia Lactate Dehydrogenase Troponin T C-Reactive Protein Total Protein Albumin Triglycerides Cholesterol HDL Cholesterol Lipase Arterial Blood Glucose Arterial Blood Ionized Calcium Urine WBC (Auto) Salicylates Acetaminophen Coronavirus (PCR) 03/03/21 03/03/21 03/03/21 07:58 08:58 09:52 WBC RBC Hgb Hct MCV MCH RDW Seg Neutrophils % Monocytes % (Manual) Seg Neutrophils # Monocytes # (Manual) PT INR D-Dimer Heparin Anti-Xa Level ABG pH POC ABG pCO2 POC ABG pO2 ABG Hemoglobin ABG Oxyhemoglobin ABG Sodium ABG Potassium ABG Chloride ABG Glucose Carboxyhemoglobin Sodium Chloride Carbon Dioxide BUN Creatinine Glucose POC Glucose 227 H 215 H 207 H Lactic Acid Calcium Phosphorus Magnesium Ferritin Total Bilirubin Direct Bilirubin AST ALT Alkaline Phosphatase Ammonia Lactate Dehydrogenase Troponin T C-Reactive Protein Total Protein Albumin Triglycerides Cholesterol HDL Cholesterol Lipase Arterial Blood Glucose Arterial Blood Ionized Calcium Urine WBC (Auto) Salicylates Acetaminophen Coronavirus (PCR) 03/03/21 03/03/21 03/03/21 10:55 11:44 12:53 WBC RBC Hgb Hct MCV MCH RDW Seg Neutrophils % Monocytes % (Manual) Seg Neutrophils # Monocytes # (Manual) PT INR D-Dimer Heparin Anti-Xa Level ABG pH POC ABG pCO2 POC ABG pO2 ABG Hemoglobin ABG Oxyhemoglobin ABG Sodium ABG Potassium ABG Chloride ABG Glucose Carboxyhemoglobin Sodium Chloride Carbon Dioxide BUN Creatinine Glucose POC Glucose 198 H 210 H 203 H Lactic Acid Calcium Phosphorus Magnesium Ferritin Total Bilirubin Direct Bilirubin AST ALT Alkaline Phosphatase Ammonia Lactate Dehydrogenase Troponin T C-Reactive Protein Total Protein Albumin Triglycerides Cholesterol HDL Cholesterol Lipase Arterial Blood Glucose Arterial Blood Ionized Calcium Urine WBC (Auto) Salicylates Acetaminophen Coronavirus (PCR) 03/03/21 03/03/21 03/03/21 13:53 14:58 15:23 WBC RBC Hgb Hct MCV MCH RDW Seg Neutrophils % Monocytes % (Manual) Seg Neutrophils # Monocytes # (Manual) PT INR D-Dimer Heparin Anti-Xa Level ABG pH POC ABG pCO2 POC ABG pO2 ABG Hemoglobin ABG Oxyhemoglobin ABG Sodium ABG Potassium ABG Chloride ABG Glucose Carboxyhemoglobin Sodium Chloride Carbon Dioxide BUN Creatinine Glucose POC Glucose 210 H 187 H Lactic Acid 3.10 H* Calcium Phosphorus Magnesium Ferritin Total Bilirubin Direct Bilirubin AST ALT Alkaline Phosphatase Ammonia Lactate Dehydrogenase Troponin T C-Reactive Protein Total Protein Albumin Triglycerides Cholesterol HDL Cholesterol Lipase Arterial Blood Glucose Arterial Blood Ionized Calcium Urine WBC (Auto) Salicylates Acetaminophen Coronavirus (PCR) 03/03/21 03/03/21 03/03/21 15:51 16:25 16:53 WBC RBC Hgb Hct MCV MCH RDW Seg Neutrophils % Monocytes % (Manual) Seg Neutrophils # Monocytes # (Manual) PT INR D-Dimer Heparin Anti-Xa Level ABG pH POC ABG pCO2 POC ABG pO2 ABG Hemoglobin ABG Oxyhemoglobin ABG Sodium ABG Potassium ABG Chloride ABG Glucose Carboxyhemoglobin Sodium Chloride 91.0 L Carbon Dioxide 34 H BUN 47 H Creatinine 1.7 H Glucose 190 H POC Glucose 182 H 179 H Lactic Acid Calcium 7.6 L Phosphorus Magnesium Ferritin Total Bilirubin Direct Bilirubin AST ALT Alkaline Phosphatase Ammonia Lactate Dehydrogenase Troponin T C-Reactive Protein Total Protein Albumin Triglycerides Cholesterol HDL Cholesterol Lipase Arterial Blood Glucose Arterial Blood Ionized Calcium Urine WBC (Auto) Salicylates Acetaminophen Coronavirus (PCR) 03/03/21 03/03/21 03/03/21 17:55 19:37 20:57 WBC RBC Hgb Hct MCV MCH RDW Seg Neutrophils % Monocytes % (Manual) Seg Neutrophils # Monocytes # (Manual) PT INR D-Dimer Heparin Anti-Xa Level ABG pH POC ABG pCO2 POC ABG pO2 ABG Hemoglobin ABG Oxyhemoglobin ABG Sodium ABG Potassium ABG Chloride ABG Glucose Carboxyhemoglobin Sodium Chloride Carbon Dioxide BUN Creatinine Glucose POC Glucose 185 H 174 H 175 H Lactic Acid Calcium Phosphorus Magnesium Ferritin Total Bilirubin Direct Bilirubin AST ALT Alkaline Phosphatase Ammonia Lactate Dehydrogenase Troponin T C-Reactive Protein Total Protein Albumin Triglycerides Cholesterol HDL Cholesterol Lipase Arterial Blood Glucose Arterial Blood Ionized Calcium Urine WBC (Auto) Salicylates Acetaminophen Coronavirus (PCR) 03/03/21 03/03/21 03/03/21 22:02 22:56 23:10 WBC RBC Hgb Hct MCV MCH RDW Seg Neutrophils % Monocytes % (Manual) Seg Neutrophils # Monocytes # (Manual) PT INR D-Dimer Heparin Anti-Xa Level 0.75 H ABG pH POC ABG pCO2 POC ABG pO2 ABG Hemoglobin ABG Oxyhemoglobin ABG Sodium ABG Potassium ABG Chloride ABG Glucose Carboxyhemoglobin Sodium Chloride Carbon Dioxide BUN Creatinine Glucose POC Glucose 170 H 160 H Lactic Acid Calcium Phosphorus Magnesium Ferritin Total Bilirubin Direct Bilirubin AST ALT Alkaline Phosphatase Ammonia Lactate Dehydrogenase Troponin T C-Reactive Protein Total Protein Albumin Triglycerides Cholesterol HDL Cholesterol Lipase Arterial Blood Glucose Arterial Blood Ionized Calcium Urine WBC (Auto) Salicylates Acetaminophen Coronavirus (PCR) 03/03/21 03/04/21 03/04/21 23:42 00:52 01:55 WBC RBC Hgb Hct MCV MCH RDW Seg Neutrophils % Monocytes % (Manual) Seg Neutrophils # Monocytes # (Manual) PT INR D-Dimer Heparin Anti-Xa Level ABG pH POC ABG pCO2 POC ABG pO2 ABG Hemoglobin ABG Oxyhemoglobin ABG Sodium ABG Potassium ABG Chloride ABG Glucose Carboxyhemoglobin Sodium Chloride Carbon Dioxide BUN Creatinine Glucose POC Glucose 161 H 167 H 119 H Lactic Acid Calcium Phosphorus Magnesium Ferritin Total Bilirubin Direct Bilirubin AST ALT Alkaline Phosphatase Ammonia Lactate Dehydrogenase Troponin T C-Reactive Protein Total Protein Albumin Triglycerides Cholesterol HDL Cholesterol Lipase Arterial Blood Glucose Arterial Blood Ionized Calcium Urine WBC (Auto) Salicylates Acetaminophen Coronavirus (PCR) 03/04/21 03/04/21 03/04/21 02:58 03:47 04:03 WBC RBC Hgb Hct MCV MCH RDW Seg Neutrophils % Monocytes % (Manual) Seg Neutrophils # Monocytes # (Manual) PT INR D-Dimer Heparin Anti-Xa Level ABG pH POC ABG pCO2 57.3 H POC ABG pO2 63.7 L ABG Hemoglobin 8.4 L ABG Oxyhemoglobin 88.6 L ABG Sodium 132.5 L ABG Potassium 3.2 L ABG Chloride 94.0 L ABG Glucose 129 H Carboxyhemoglobin Sodium Chloride Carbon Dioxide BUN Creatinine Glucose POC Glucose 111 H 122 H Lactic Acid Calcium Phosphorus Magnesium Ferritin Total Bilirubin Direct Bilirubin AST ALT Alkaline Phosphatase Ammonia Lactate Dehydrogenase Troponin T C-Reactive Protein Total Protein Albumin Triglycerides Cholesterol HDL Cholesterol Lipase Arterial Blood Glucose 129 H Arterial Blood Ionized Calcium 3.8 L Urine WBC (Auto) Salicylates Acetaminophen Coronavirus (PCR) 03/04/21 03/04/21 03/04/21 05:15 05:26 05:26 WBC RBC Hgb 7.9 L Hct 23.7 L MCV MCH RDW Seg Neutrophils % Monocytes % (Manual) Seg Neutrophils # Monocytes # (Manual) PT INR D-Dimer Heparin Anti-Xa Level ABG pH POC ABG pCO2 POC ABG pO2 ABG Hemoglobin ABG Oxyhemoglobin ABG Sodium ABG Potassium ABG Chloride ABG Glucose Carboxyhemoglobin Sodium Chloride Carbon Dioxide BUN Creatinine Glucose POC Glucose 127 H Lactic Acid Calcium Phosphorus Magnesium Ferritin Total Bilirubin Direct Bilirubin 0.6 H AST 123 H ALT 105 H Alkaline Phosphatase 232 H Ammonia Lactate Dehydrogenase Troponin T C-Reactive Protein Total Protein 4.8 L Albumin 2.2 L Triglycerides Cholesterol HDL Cholesterol Lipase Arterial Blood Glucose Arterial Blood Ionized Calcium Urine WBC (Auto) Salicylates Acetaminophen Coronavirus (PCR) 03/04/21 03/04/21 03/04/21 05:26 06:01 06:53 WBC RBC Hgb Hct MCV MCH RDW Seg Neutrophils % Monocytes % (Manual) Seg Neutrophils # Monocytes # (Manual) PT INR D-Dimer Heparin Anti-Xa Level 0.71 H ABG pH POC ABG pCO2 POC ABG pO2 ABG Hemoglobin ABG Oxyhemoglobin ABG Sodium ABG Potassium ABG Chloride ABG Glucose Carboxyhemoglobin Sodium Chloride Carbon Dioxide BUN Creatinine Glucose POC Glucose 120 H 117 H Lactic Acid Calcium Phosphorus Magnesium Ferritin Total Bilirubin Direct Bilirubin AST ALT Alkaline Phosphatase Ammonia Lactate Dehydrogenase Troponin T C-Reactive Protein Total Protein Albumin Triglycerides Cholesterol HDL Cholesterol Lipase Arterial Blood Glucose Arterial Blood Ionized Calcium Urine WBC (Auto) Salicylates Acetaminophen Coronavirus (PCR) 03/04/21 03/04/21 03/04/21 07:57 10:17 10:17 WBC RBC 2.51 L Hgb 8.3 L Hct 25.3 L MCV 101 H MCH 33 H RDW 18.5 H Seg Neutrophils % Monocytes % (Manual) Seg Neutrophils # Monocytes # (Manual) PT INR D-Dimer Heparin Anti-Xa Level ABG pH POC ABG pCO2 POC ABG pO2 ABG Hemoglobin ABG Oxyhemoglobin ABG Sodium ABG Potassium ABG Chloride ABG Glucose Carboxyhemoglobin Sodium 136 L Chloride 93.1 L Carbon Dioxide 33 H BUN 46 H Creatinine 1.4 H Glucose 151 H POC Glucose 129 H Lactic Acid Calcium 7.5 L Phosphorus Magnesium Ferritin Total Bilirubin Direct Bilirubin AST 126 H ALT 100 H Alkaline Phosphatase 226 H Ammonia Lactate Dehydrogenase Troponin T C-Reactive Protein Total Protein 5.0 L Albumin 2.2 L Triglycerides Cholesterol HDL Cholesterol Lipase Arterial Blood Glucose Arterial Blood Ionized Calcium Urine WBC (Auto) Salicylates Acetaminophen Coronavirus (PCR) 03/04/21 03/04/21 03/04/21 10:17 10:17 11:26 WBC RBC Hgb Hct MCV MCH RDW Seg Neutrophils % Monocytes % (Manual) Seg Neutrophils # Monocytes # (Manual) PT 15.6 H INR 1.18 H D-Dimer Heparin Anti-Xa Level ABG pH POC ABG pCO2 POC ABG pO2 ABG Hemoglobin ABG Oxyhemoglobin ABG Sodium ABG Potassium ABG Chloride ABG Glucose Carboxyhemoglobin Sodium Chloride Carbon Dioxide BUN Creatinine Glucose POC Glucose 167 H Lactic Acid Calcium Phosphorus Magnesium Ferritin Total Bilirubin Direct Bilirubin AST ALT Alkaline Phosphatase Ammonia Lactate Dehydrogenase Troponin T C-Reactive Protein Total Protein Albumin Triglycerides Cholesterol HDL Cholesterol Lipase 78 H Arterial Blood Glucose Arterial Blood Ionized Calcium Urine WBC (Auto) Salicylates Acetaminophen Coronavirus (PCR) 03/04/21 03/04/21 03/04/21 13:04 16:26 17:58 WBC RBC Hgb 7.7 L Hct 23.2 L MCV MCH RDW Seg Neutrophils % Monocytes % (Manual) Seg Neutrophils # Monocytes # (Manual) PT INR D-Dimer Heparin Anti-Xa Level < 0.10 L ABG pH POC ABG pCO2 POC ABG pO2 ABG Hemoglobin ABG Oxyhemoglobin ABG Sodium ABG Potassium ABG Chloride ABG Glucose Carboxyhemoglobin Sodium Chloride Carbon Dioxide BUN Creatinine Glucose POC Glucose 167 H Lactic Acid Calcium Phosphorus Magnesium Ferritin Total Bilirubin Direct Bilirubin AST ALT Alkaline Phosphatase Ammonia Lactate Dehydrogenase Troponin T C-Reactive Protein Total Protein Albumin Triglycerides Cholesterol HDL Cholesterol Lipase Arterial Blood Glucose Arterial Blood Ionized Calcium Urine WBC (Auto) Salicylates Acetaminophen Coronavirus (PCR) 03/04/21 03/05/21 03/05/21 23:47 04:00 05:06 WBC RBC Hgb Hct MCV MCH RDW Seg Neutrophils % Monocytes % (Manual) Seg Neutrophils # Monocytes # (Manual) PT INR D-Dimer Heparin Anti-Xa Level ABG pH POC ABG pCO2 POC ABG pO2 129.1 H ABG Hemoglobin 8.3 L ABG Oxyhemoglobin ABG Sodium 131.4 L ABG Potassium ABG Chloride 95.0 L ABG Glucose 153 H Carboxyhemoglobin Sodium Chloride Carbon Dioxide BUN Creatinine Glucose POC Glucose 153 H 139 H Lactic Acid Calcium Phosphorus Magnesium Ferritin Total Bilirubin Direct Bilirubin AST ALT Alkaline Phosphatase Ammonia Lactate Dehydrogenase Troponin T C-Reactive Protein Total Protein Albumin Triglycerides Cholesterol HDL Cholesterol Lipase Arterial Blood Glucose 153 H Arterial Blood Ionized Calcium Urine WBC (Auto) Salicylates Acetaminophen Coronavirus (PCR) 03/05/21 03/05/21 03/05/21 11:43 13:35 13:35 WBC RBC 2.38 L Hgb 7.8 L Hct 23.8 L MCV 100 H MCH 33 H RDW 18.2 H Seg Neutrophils % Monocytes % (Manual) Seg Neutrophils # Monocytes # (Manual) PT INR D-Dimer Heparin Anti-Xa Level ABG pH POC ABG pCO2 POC ABG pO2 ABG Hemoglobin ABG Oxyhemoglobin ABG Sodium ABG Potassium ABG Chloride ABG Glucose Carboxyhemoglobin Sodium Chloride 94.4 L Carbon Dioxide BUN 49 H Creatinine 1.6 H Glucose 165 H POC Glucose 174 H Lactic Acid Calcium 7.5 L Phosphorus Magnesium Ferritin Total Bilirubin Direct Bilirubin AST ALT Alkaline Phosphatase Ammonia Lactate Dehydrogenase Troponin T C-Reactive Protein Total Protein Albumin Triglycerides Cholesterol HDL Cholesterol Lipase Arterial Blood Glucose Arterial Blood Ionized Calcium Urine WBC (Auto) Salicylates Acetaminophen Coronavirus (PCR) 03/05/21 03/05/21 03/05/21 17:57 21:27 Unknown WBC RBC Hgb Hct MCV MCH RDW Seg Neutrophils % Monocytes % (Manual) Seg Neutrophils # Monocytes # (Manual) PT INR D-Dimer Heparin Anti-Xa Level ABG pH POC ABG pCO2 POC ABG pO2 ABG Hemoglobin ABG Oxyhemoglobin ABG Sodium ABG Potassium ABG Chloride ABG Glucose Carboxyhemoglobin Sodium Chloride Carbon Dioxide BUN Creatinine Glucose POC Glucose 129 H 129 H Lactic Acid Calcium Phosphorus Magnesium Ferritin Total Bilirubin Direct Bilirubin AST ALT Alkaline Phosphatase Ammonia Lactate Dehydrogenase Troponin T C-Reactive Protein Total Protein Albumin Triglycerides Cholesterol HDL Cholesterol Lipase Arterial Blood Glucose Arterial Blood Ionized Calcium Urine WBC (Auto) Salicylates Acetaminophen Coronavirus (PCR) Positive A 03/06/21 03/06/21 03/06/21 03:30 04:30 05:20 WBC 15.2 H RBC 2.48 L Hgb 8.2 L Hct 24.9 L MCV 100 H MCH 33 H RDW 18.6 H Seg Neutrophils % 72.6 H Monocytes % (Manual) Seg Neutrophils # 11.1 H Monocytes # (Manual) PT INR D-Dimer Heparin Anti-Xa Level ABG pH POC ABG pCO2 49.7 H POC ABG pO2 65.1 L ABG Hemoglobin 9.1 L ABG Oxyhemoglobin 90.2 L ABG Sodium 131.2 L ABG Potassium ABG Chloride 96.0 L ABG Glucose 133 H Carboxyhemoglobin Sodium Chloride Carbon Dioxide BUN Creatinine Glucose POC Glucose Lactic Acid Calcium Phosphorus Magnesium Ferritin Total Bilirubin Direct Bilirubin AST ALT Alkaline Phosphatase Ammonia Lactate Dehydrogenase Troponin T C-Reactive Protein 27.90 H Total Protein Albumin Triglycerides Cholesterol HDL Cholesterol Lipase Arterial Blood Glucose 133 H Arterial Blood Ionized Calcium 4.2 L Urine WBC (Auto) Salicylates Acetaminophen Coronavirus (PCR) 03/06/21 03/06/21 03/06/21 05:20 05:30 11:52 WBC RBC Hgb Hct MCV MCH RDW Seg Neutrophils % Monocytes % (Manual) Seg Neutrophils # Monocytes # (Manual) PT INR D-Dimer Heparin Anti-Xa Level ABG pH POC ABG pCO2 POC ABG pO2 ABG Hemoglobin ABG Oxyhemoglobin ABG Sodium ABG Potassium ABG Chloride ABG Glucose Carboxyhemoglobin Sodium 135 L Chloride 94.5 L Carbon Dioxide BUN 49 H Creatinine Glucose 121 H POC Glucose 123 H 123 H Lactic Acid Calcium 7.3 L Phosphorus Magnesium 1.50 L Ferritin Total Bilirubin Direct Bilirubin AST 120 H ALT 74 H Alkaline Phosphatase 306 H Ammonia Lactate Dehydrogenase Troponin T C-Reactive Protein Total Protein 4.5 L Albumin 2.0 L Triglycerides Cholesterol HDL Cholesterol Lipase Arterial Blood Glucose Arterial Blood Ionized Calcium Urine WBC (Auto) Salicylates Acetaminophen Coronavirus (PCR) 03/06/21 03/06/21 03/06/21 14:34 17:45 23:36 WBC RBC Hgb Hct MCV MCH RDW Seg Neutrophils % Monocytes % (Manual) Seg Neutrophils # Monocytes # (Manual) PT INR D-Dimer Heparin Anti-Xa Level ABG pH POC ABG pCO2 POC ABG pO2 ABG Hemoglobin ABG Oxyhemoglobin ABG Sodium ABG Potassium ABG Chloride ABG Glucose Carboxyhemoglobin Sodium Chloride Carbon Dioxide BUN Creatinine Glucose POC Glucose 140 H 209 H Lactic Acid Calcium Phosphorus Magnesium Ferritin Total Bilirubin Direct Bilirubin AST ALT Alkaline Phosphatase Ammonia Lactate Dehydrogenase Troponin T C-Reactive Protein Total Protein Albumin Triglycerides Cholesterol HDL Cholesterol Lipase Arterial Blood Glucose Arterial Blood Ionized Calcium Urine WBC (Auto) 103.0 H Salicylates Acetaminophen Coronavirus (PCR) 03/07/21 03/07/21 03/07/21 03:00 05:32 08:16 WBC RBC Hgb Hct MCV MCH RDW Seg Neutrophils % Monocytes % (Manual) Seg Neutrophils # Monocytes # (Manual) PT INR D-Dimer Heparin Anti-Xa Level ABG pH POC ABG pCO2 POC ABG pO2 ABG Hemoglobin 8.9 L ABG Oxyhemoglobin ABG Sodium 131.4 L ABG Potassium ABG Chloride ABG Glucose 224 H Carboxyhemoglobin Sodium 136 L Chloride 95.3 L Carbon Dioxide BUN 45 H Creatinine Glucose 210 H POC Glucose 213 H Lactic Acid Calcium 8.0 L Phosphorus Magnesium Ferritin Total Bilirubin 1.30 H Direct Bilirubin AST 144 H ALT 66 H Alkaline Phosphatase 335 H Ammonia Lactate Dehydrogenase Troponin T C-Reactive Protein Total Protein 4.9 L Albumin 2.1 L Triglycerides Cholesterol HDL Cholesterol Lipase Arterial Blood Glucose 224 H Arterial Blood Ionized Calcium 4.3 L Urine WBC (Auto) Salicylates Acetaminophen Coronavirus (PCR) 03/07/21 03/07/21 03/07/21 08:16 08:16 08:16 WBC RBC 2.47 L Hgb 8.2 L Hct 24.6 L MCV 100 H MCH 33 H RDW 18.1 H Seg Neutrophils % Monocytes % (Manual) Seg Neutrophils # Monocytes # (Manual) PT INR D-Dimer 403.72 H Heparin Anti-Xa Level ABG pH POC ABG pCO2 POC ABG pO2 ABG Hemoglobin ABG Oxyhemoglobin ABG Sodium ABG Potassium ABG Chloride ABG Glucose Carboxyhemoglobin Sodium Chloride Carbon Dioxide BUN Creatinine Glucose POC Glucose Lactic Acid Calcium Phosphorus Magnesium Ferritin Total Bilirubin Direct Bilirubin AST ALT Alkaline Phosphatase Ammonia Lactate Dehydrogenase 453 H Troponin T C-Reactive Protein 32.50 H Total Protein Albumin Triglycerides Cholesterol HDL Cholesterol Lipase Arterial Blood Glucose Arterial Blood Ionized Calcium Urine WBC (Auto) Salicylates Acetaminophen Coronavirus (PCR) 03/07/21 03/07/21 03/07/21 08:16 11:24 17:22 WBC RBC Hgb Hct MCV MCH RDW Seg Neutrophils % Monocytes % (Manual) Seg Neutrophils # Monocytes # (Manual) PT INR D-Dimer Heparin Anti-Xa Level ABG pH POC ABG pCO2 POC ABG pO2 ABG Hemoglobin ABG Oxyhemoglobin ABG Sodium ABG Potassium ABG Chloride ABG Glucose Carboxyhemoglobin Sodium Chloride Carbon Dioxide BUN Creatinine Glucose POC Glucose 205 H 211 H Lactic Acid Calcium Phosphorus Magnesium Ferritin > 2000.0 H Total Bilirubin Direct Bilirubin AST ALT Alkaline Phosphatase Ammonia Lactate Dehydrogenase Troponin T C-Reactive Protein Total Protein Albumin Triglycerides Cholesterol HDL Cholesterol Lipase Arterial Blood Glucose Arterial Blood Ionized Calcium Urine WBC (Auto) Salicylates Acetaminophen Coronavirus (PCR) 03/07/21 03/08/21 03/08/21 Unknown 00:05 04:00 WBC RBC Hgb Hct MCV MCH RDW Seg Neutrophils % Monocytes % (Manual) Seg Neutrophils # Monocytes # (Manual) PT INR D-Dimer Heparin Anti-Xa Level 0.94 H ABG pH 7.452 H POC ABG pCO2 POC ABG pO2 75.5 L ABG Hemoglobin 10.0 L ABG Oxyhemoglobin 93.5 L ABG Sodium 134.7 L ABG Potassium ABG Chloride ABG Glucose 268 H Carboxyhemoglobin 0.3 L Sodium Chloride Carbon Dioxide BUN Creatinine Glucose POC Glucose 253 H Lactic Acid Calcium Phosphorus Magnesium Ferritin Total Bilirubin Direct Bilirubin AST ALT Alkaline Phosphatase Ammonia Lactate Dehydrogenase Troponin T C-Reactive Protein Total Protein Albumin Triglycerides Cholesterol HDL Cholesterol Lipase Arterial Blood Glucose 268 H Arterial Blood Ionized Calcium 4.5 L Urine WBC (Auto) Salicylates Acetaminophen Coronavirus (PCR) 03/08/21 03/08/21 03/08/21 05:27 06:10 06:10 WBC RBC 2.62 L Hgb 8.4 L Hct 26.0 L MCV 100 H MCH RDW 18.0 H Seg Neutrophils % Monocytes % (Manual) Seg Neutrophils # Monocytes # (Manual) PT INR D-Dimer Heparin Anti-Xa Level ABG pH POC ABG pCO2 POC ABG pO2 ABG Hemoglobin ABG Oxyhemoglobin ABG Sodium ABG Potassium ABG Chloride ABG Glucose Carboxyhemoglobin Sodium Chloride Carbon Dioxide BUN 49 H Creatinine Glucose 280 H POC Glucose 273 H Lactic Acid Calcium Phosphorus Magnesium Ferritin Total Bilirubin Direct Bilirubin AST 130 H ALT 68 H Alkaline Phosphatase 440 H Ammonia Lactate Dehydrogenase Troponin T C-Reactive Protein Total Protein 5.3 L Albumin 1.9 L Triglycerides Cholesterol HDL Cholesterol Lipase Arterial Blood Glucose Arterial Blood Ionized Calcium Urine WBC (Auto) Salicylates Acetaminophen Coronavirus (PCR) 03/08/21 03/08/21 03/08/21 11:27 17:56 23:20 WBC RBC Hgb Hct MCV MCH RDW Seg Neutrophils % Monocytes % (Manual) Seg Neutrophils # Monocytes # (Manual) PT INR D-Dimer Heparin Anti-Xa Level ABG pH POC ABG pCO2 POC ABG pO2 ABG Hemoglobin ABG Oxyhemoglobin ABG Sodium ABG Potassium ABG Chloride ABG Glucose Carboxyhemoglobin Sodium Chloride Carbon Dioxide BUN Creatinine Glucose POC Glucose 258 H 279 H 289 H Lactic Acid Calcium Phosphorus Magnesium Ferritin Total Bilirubin Direct Bilirubin AST ALT Alkaline Phosphatase Ammonia Lactate Dehydrogenase Troponin T C-Reactive Protein Total Protein Albumin Triglycerides Cholesterol HDL Cholesterol Lipase Arterial Blood Glucose Arterial Blood Ionized Calcium Urine WBC (Auto) Salicylates Acetaminophen Coronavirus (PCR) 03/09/21 03/09/21 04:00 05:12 WBC RBC Hgb Hct MCV MCH RDW Seg Neutrophils % Monocytes % (Manual) Seg Neutrophils # Monocytes # (Manual) PT INR D-Dimer Heparin Anti-Xa Level ABG pH 7.456 H POC ABG pCO2 POC ABG pO2 ABG Hemoglobin 8.9 L ABG Oxyhemoglobin ABG Sodium 135.6 L ABG Potassium ABG Chloride ABG Glucose 298 H Carboxyhemoglobin 0.3 L Sodium Chloride Carbon Dioxide BUN Creatinine Glucose POC Glucose 267 H Lactic Acid Calcium Phosphorus Magnesium Ferritin Total Bilirubin Direct Bilirubin AST ALT Alkaline Phosphatase Ammonia Lactate Dehydrogenase Troponin T C-Reactive Protein Total Protein Albumin Triglycerides Cholesterol HDL Cholesterol Lipase Arterial Blood Glucose 298 H Arterial Blood Ionized Calcium 4.5 L Urine WBC (Auto) Salicylates Acetaminophen Coronavirus (PCR) Chest x-ray: image reviewed Allied health notes reviewed: RT
[2021-03-09 08:59] LABS: Hematocrit 25.5 % (35.5-45.6); Hemoglobin 8.5 gm/dl (11.8-15.2); Mean Corpuscular HGB Conc 33 % (32-34); Mean Corpuscular Volume 98 fl (84-94); Platelet Count 163 K/mm3 (140-440); Red Cell Distribution Width 18.1 % (13.2-15.2)
[2021-03-09 09:13] LABS: C-Reactive Protein 10.6 mg/dL (0.00-1.30)
[2021-03-09 09:23] LABS: Alanine Aminotransferase 62 units/L (7-56); Albumin 2.2 g/dL (3.9-5); BUN/Creatinine Ratio 55; Blood Urea Nitrogen 44 mg/dL (9-20); Calcium 8.7 mg/dL (8.4-10.2); Hemolysis Index 0
[2021-03-09] MEDS: METOPROLOL TARTRATE 25 MG TAB PO SCH (09:39)
[2021-03-09] MEDS: CHOLECALCIFEROL (VIT D3) 1000 UNIT (25 mcg) TAB PO SCH (09:39)
[2021-03-09] MEDS: ZINC SULFATE 220 MG CAP PO SCH ×2 (09:39→22:10)
[2021-03-09] MEDS: FAMOTIDINE 20 MG TAB PO SCH ×2 (09:40→22:10)
[2021-03-09] MEDS: SENNOSIDES/DOCUSATE SODIUM 8.6/50 MG TAB FEEDTUBE SCH ×2 (09:40→22:10)
[2021-03-09] MEDS: ASCORBIC ACID 500 MG TAB PO SCH ×2 (09:40→22:10)
[2021-03-09] MEDS: ASPIRIN 81 MG TAB CHEW PO SCH (09:40)
[2021-03-09] MEDS: INSULIN GLARGINE 100 UNITS/ML SUB-Q SCH (09:40)
[2021-03-09] MEDS: fentaNYL 100 MCG/2 ML INJ IV PRN ×3 (09:51→10:52)
[2021-03-09] MEDS: hydrALAZINE 20 MG/1 ML INJ IV PRN (09:51)
[2021-03-09] MEDS ORDERED: FUROSEMIDE 40 MG/4 ML INJ IV ONE (10:00)
--- NOTE | 2021-03-09 10:00 | Progress Note ---
Assessment and Plan Cultures: SARS CoV2 PCR: Positive MRSA nasal PCR: Positive 03/01/2021 blood culture: No growth 03/01/2021 urine culture: No growth 03/02/2021 tracheal aspirate: [place] albicans 03/06/2021 blood culture: no growth 03/06/2021 urine culture: No growth A/P: 51-year-old male with COPD, chronic respiratory failure, CHF, diabetes, DVT/PE, morbid obesity on anticoagulation was admitted to the hospital on 03/01/2021 with altered mental status and shortness of breath: #Bilateral pneumonia: secondary to COVID-19. Completed empiric antibiotics. #Acute hypoxic respiratory failure: Requiring mechanical ventilation. #Morbid obesity #Acute on chronic CHF #Transaminitis: Likely from COVID-19. Elevated LFTs with elevated alkaline phosphatase: RUQ ultrasound did not reveal any evidence of cholelithiasis, cholecystitis or choledocholithiasis. #Acute RLE DVT: On anticoagulation Recs: -IV/PO Dexamethasone 10 mg daily x 10 days, higher dose due to morbid obesity -Complete 5 days of remdesivir -Patient has been on the vent for several days, does not meet criteria for Tocilizumab -Completed empiric antibiotics -on anticoagulation -trend ferritin, LDH, d-dimer, CRP every 2-3 days for risk stratification and to assess disease progression Van Suarez MD, FACP [facility] ([facility] O: [phone] F: [phone] Subjective Date of service: 03/09/21 Principal diagnosis: Ac hypoxemic resp failure; NSTEMI; ALPHONSO; Sepsis; PNA; CHF; DM II; AMS Interval history: Afebrile. Remains on the vent, 45% FiO2 Objective - Exam Narrative Exam: Physical Exam (reviewed in chart to minimize risk of transmission) Constitutional: deferred Head, Ears, Nose: deferred Eyes: deferred Neck: deferred Oral: deferred Cardiovascular: deferred Respiratory: deferred GI: deferred Musculoskeletal: deferred Skin: deferred Hem/Lymphatic: deferred Psych: deferred Neurological: deferred - Constitutional Vitals: Vital Signs Temp Pulse Resp BP Pulse Ox 98.2 F 92 H 20 201/127 99 03/09/21 08:00 03/09/21 09:51 03/09/21 09:51 03/09/21 09:51 03/09/21 09:00 Temperature -Last 24 Hours Temperature 98.2 F Temperature 98.3 F Temperature 98.8 F Temperature 98.2 F Temperature 97.8 F Temperature 98.8 F - Labs CBC & Chem 7: 03/09/21 08:00 03/09/21 08:00 Labs: Abnormal lab results 03/08/21 03/08/21 03/08/21 Range/Units 11:27 17:56 23:20 RBC (3.65-5.03) M/mm3 Hgb (11.8-15.2) gm/dl Hct (35.5-45.6) % MCV (84-94) fl MCH (28-32) pg RDW (13.2-15.2) % D-Dimer (0-234) ng/mlDDU ABG pH (7.320-7.450) ABG Hemoglobin (12.0-17.5) ABG Sodium (136.0-145.0) mmol/L ABG Glucose (65-95) mg/dL Carboxyhemoglobin (0.5-1.5) BUN (9-20) mg/dL Glucose (75-100) mg/dL POC Glucose 258 H 279 H 289 H (70-105) mg/dL AST (5-40) units/L ALT (7-56) units/L Alkaline Phosphatase (35-129) units/L Lactate Dehydrogenase (91-180) units/L C-Reactive Protein (0.00-1.30) mg/dL Total Protein (6.3-8.2) g/dL Albumin (3.9-5) g/dL Arterial Blood Glucose (65-95) mg/dL Arterial Blood Ionized Calcium (4.6-5.3) mg/dL 03/09/21 03/09/21 03/09/21 Range/Units 04:00 05:12 08:00 RBC (3.65-5.03) M/mm3 Hgb (11.8-15.2) gm/dl Hct (35.5-45.6) % MCV (84-94) fl MCH (28-32) pg RDW (13.2-15.2) % D-Dimer 249.59 H (0-234) ng/mlDDU ABG pH 7.456 H (7.320-7.450) ABG Hemoglobin 8.9 L (12.0-17.5) ABG Sodium 135.6 L (136.0-145.0) mmol/L ABG Glucose 298 H (65-95) mg/dL Carboxyhemoglobin 0.3 L (0.5-1.5) BUN (9-20) mg/dL Glucose (75-100) mg/dL POC Glucose 267 H (70-105) mg/dL AST (5-40) units/L ALT (7-56) units/L Alkaline Phosphatase (35-129) units/L Lactate Dehydrogenase (91-180) units/L C-Reactive Protein (0.00-1.30) mg/dL Total Protein (6.3-8.2) g/dL Albumin (3.9-5) g/dL Arterial Blood Glucose 298 H (65-95) mg/dL Arterial Blood Ionized Calcium 4.5 L (4.6-5.3) mg/dL 03/09/21 03/09/21 03/09/21 Range/Units 08:00 08:00 08:00 RBC 2.60 L (3.65-5.03) M/mm3 Hgb 8.5 L (11.8-15.2) gm/dl Hct 25.5 L (35.5-45.6) % MCV 98 H (84-94) fl MCH 33 H (28-32) pg RDW 18.1 H (13.2-15.2) % D-Dimer (0-234) ng/mlDDU ABG pH (7.320-7.450) ABG Hemoglobin (12.0-17.5) ABG Sodium (136.0-145.0) mmol/L ABG Glucose (65-95) mg/dL Carboxyhemoglobin (0.5-1.5) BUN 44 H (9-20) mg/dL Glucose 289 H (75-100) mg/dL POC Glucose (70-105) mg/dL AST 134 H (5-40) units/L ALT 62 H (7-56) units/L Alkaline Phosphatase 527 H (35-129) units/L Lactate Dehydrogenase 459 H (91-180) units/L C-Reactive Protein 10.60 H (0.00-1.30) mg/dL Total Protein 5.0 L (6.3-8.2) g/dL Albumin 2.2 L (3.9-5) g/dL Arterial Blood Glucose (65-95) mg/dL Arterial Blood Ionized Calcium (4.6-5.3) mg/dL
[2021-03-09] MEDS ORDERED: ROCURONIUM 50 MG/5 ML INJ IV ONE ×2 (10:20→10:22)
[2021-03-09] MEDS: CALCIUM CARB/VIT D3/MINERALS 600 MG/800 UNITS TAB PO SCH ×2 (10:24→22:10)
[2021-03-09] MEDS: ENOXAPARIN 150 MG/1 ML INJ SUB-Q SCH ×2 (11:35→22:20)
[2021-03-09] MEDS: dexAMETHasone 4 MG/ML VIAL IV SCH (11:37)
--- NOTE | 2021-03-09 15:35 | Progress Note ---
Assessment and Plan Assessment and plan: This is a a 51 year old male admitted for for severe sepsis, respiratory failure, pneumonia and ALPHONSO. PMH: COPD, CHF, DM, DVT/PE, HTN, KAM, obesity, asthma PSx: none reported home meds: albuterol sulfate, advair, HCTZ, atrovent, glucophage, Klor-Con, midodrine, metoprolol, lasix, lantus, coumadin (from audit and home meds reconciliation) Social: unknown A/P Neuro: Metabolic encephalopathy -sedated with fentanyl -RASS goal 0 to -1 -Avoid delirium -Reorientation as needed -Aspiration/fall precautions -B wrist restraints for safety Cardio: SR/ST: Acute on Chronic HFpEF (per cards), NSTEMI, h/o HTN, HLD, Prolonged QTc -Cardiology consulted, appreciate recommendations -midodrine d/c -BP monitoring per protocol -Metoprolol BID with hold parameters -Per cardiology: 1. gentle IV diuresis when able 2. Echo 12/13/2020 - EF 55-60%, otherwise technically difficult study. Echo 05/2016 - LV mildly dilated, EF 55-60%, grade II diastolic dysfxn, RV mildly enlarged, normal RV sys fxn, LA mildly dilated, RA mildly dilated, mild-mod AR, mild AK, mild aortic root dilatation. -trial of lasix today, prn hydral Resp: Acute on chronic hypoxic respiratory failure, Bilateral PNA, hx COPD, KAM , asthma, ?PE -CCM consulted, appreciate recommendations -MV, wean as tolerated -Intubated 03/01 with 8.0 OETT at 23@lip (tube exchange 03/09) -Vent settings: AC TV 500, PEEP 8, Rate 18, on 40% FiO2 -Serial CXR and ABG -VAP bundle -Continuos SPO2 monitoring -abx with levaquin (03/02-03/07)-DC 03/05 r/t prolonged QTc -03/01 CT chest shows several pulmonary nodules within Right lung measuring 6-8 mm, increased interstitial prominence -03/09 CXR reviewed GI: Transaminitis, TF -GI consulted, appreciate recommendations -Trend LFTs -RUQ US shows no evidence of cholelithiasis, cholecytitis or choledocholithisis -CT abd/pelvis shows fatty infiltration of liver -Ntr consult for TF -PPI -BR [place] -last BM 03/06 -24 hr net (-) 1423-> +8.7 L since admit : ALPHONSO (stable/resolved) -Nephrology consulted, appreciate recommendations -Pt was on HD at recent hospitalization at OSH -Renally dose mediations -Avoid nephrotoxic medications -Strict I&Os -Renal US shows no significant abnormality -Daily weights -Replete electrolytes -Trend BMP Heme: DVT-R posterior tibial vein, h/o LLE DVT (December 2019)/ PE (failed Xa inhibitors per cards; on home coumadin) -evidenced on BLE Doppler US -Heparin gtt d/c to lovenox subq (03/09) -SCDs while in bed -Per cards: Eventually plan to transition to Coumadin ID: Severe Sepsis, B PNA, COVID 19 infection -s/p abx therapy (azithromycin 03/01-03/02, aztreonam 03/02, cefepime 03/01-03/02, levaquin 03/02-03/05, flagyl 03/01-03/02, vancomycin 03/01-03/02) -VAP bundle -MRSA (+) nares -COVID 19 PCR (+) -Decadron for 10 days (03/06-03/15) -Remdesivir (03/06-03/10) -Contact/Droplet precautions -03/01 BCx2 with NGTD -03/01 UC with NGTD -03/02 sputum culture -Reculture with next temp spike -Prone if needed -Vit C/D/Zinc Endo: DM -SSI, lantus (titrate as needed) -Accuchecks q6 -Avoid hypoglycemia Lines: condom cath, PIV, RADHA Disposition: ICU Full code The high probability of a clinically significant, sudden or life threatening deterioration of the [multi] system(s) required my full and direct attention, intervention and personal management. The aggregate critical care time was [60] minutes. This time is in addition to time spent performing reported procedures but includes the following: [x] Data Review and interpretation [x] Patient assessment and monitoring of vital signs [x] Documentation [x] Medication orders and management Disposition Plan: ICU Total Time Spent with Patient (Minutes): 60 History Interval history: This is a 51-year-old -Spanish male with COPD with chronic respiratory failure, CHFpEF, diabetes mellitus, DVT/PE on coumadin and hypertension who presented to [facility] via EMS for AMS and hypoxia. On arrival of EMS oxygen saturation was about 88% on room air, blood pressure was said to be about 88/50 mmHg. Work-up in the emergency room reveals leukocytosis of 12.7, hemoglobin of 9.1 and hematocrit of 27.7, sodium of 132, lactic acid of 2.90, elevated liver enzymes and elevated troponin at 0.493. A CT of the chest showed findings concerning for atelectasis and or infiltrate, CT of the head was unremarkable. Patient was in severe respiratory distress upon arrival in the emergency room and subsequently intubated. Patient was admitted to the hospitalist service with consults to cardiology, CCM, GI, and neprohology for severe sepsis, respiratory failure, pneumonia and ALPHONSO. Of note patient was admitted to [facility] from 12/12-01/14 and was on HD during that admit. 03/03/21: Patient remains intubated, continue on heparin drip, monitor H&H and BMP. Continue empiric antibiotics, ID following. Follow ammonia level and LFT. According to cardiology patient indeed had preserved EF during his recent admission to [place]. Plan to repeat 2D echo. Critical care following, wean off from vent as tolerated. 03/04: RN reported blood y secretions in OETT and clots, heparin gtt stopped and B LE US obtained which shows DVT, abx deescalated, heparin gtt restarted. 03/05: RN reported vomiting x1, promithazine x1 given, Qtc at 599 on EKG. AM labs pending. tmax 102.2, reculture with next spike, COVID 19 PCR. abx stopped re prolonged qtc and received CAP coverage. 03/06: Reported high TF residual, COVID PCR pending. Cr better today. tmax 100.7 03/07: radha placed yesterday, started on remdesivir re positive covid. ID consulted yesterday. SHERYL overnight. 03/08: SHERYL reported overnight. Patient is now hypertensive and midodrine has been held. Will now place on low dose antihtn and prn hydral. 03/09: Patient reportedly through tube and OETT was exchanged, patient was given paralytic for exchange. No acute events reported overnight. Patient noted to be hypertensive and we will trial Lasix again today. Hospitalist Physical - Constitutional Vitals: Temp Pulse Resp BP Pulse Ox 98.2 F 83 13 155/83 93 03/09/21 08:00 03/09/21 15:00 03/09/21 15:00 03/09/21 15:00 03/09/21 15:00 General appearance: Present: no acute distress, well-nourished, obese, other (sedated) - EENT Eyes: Present: PERRL - Neck Neck: Present: normal ROM - Respiratory Respiratory effort: normal - Cardiovascular Rhythm: regular - Extremities Extremity abnormal: edema Peripheral Pulses: within normal limits - Abdominal General gastrointestinal: soft - Integumentary Integumentary: Present: dry - Psychiatric Psychiatric: cooperative - Allied Health Allied health notes reviewed: nursing, RT HEART Score - HEART Score Troponin: Troponin T 0.484 ng/mL (0.00-0.029) H* 03/01/21 20:55 Results - Labs CBC & Chem 7: 03/09/21 08:00 03/09/21 08:00 Labs: Laboratory Last Values WBC 8.0 K/mm3 (4.5-11.0) 03/09/21 08:00 RBC 2.60 M/mm3 (3.65-5.03) L 03/09/21 08:00 Hgb 8.5 gm/dl (11.8-15.2) L 03/09/21 08:00 Hct 25.5 % (35.5-45.6) L 03/09/21 08:00 MCV 98 fl (84-94) H 03/09/21 08:00 MCH 33 pg (28-32) H 03/09/21 08:00 MCHC 33 % (32-34) 03/09/21 08:00 RDW 18.1 % (13.2-15.2) H 03/09/21 08:00 Plt Count 163 K/mm3 (140-440) 03/09/21 08:00 Lymph % (Auto) 22.4 % (13.4-35.0) 03/06/21 05:20 [place] % (Auto) 4.5 % (0.0-7.3) 03/06/21 05:20 Eos % (Auto) 0.2 % (0.0-4.3) 03/06/21 05:20 Baso % (Auto) 0.3 % (0.0-1.8) 03/06/21 05:20 Lymph # (Auto) 3.4 K/mm3 (1.2-5.4) 03/06/21 05:20 [place] # (Auto) 0.7 K/mm3 (0.0-0.8) 03/06/21 05:20 Eos # (Auto) 0.0 K/mm3 (0.0-0.4) 03/06/21 05:20 Baso # (Auto) 0.1 K/mm3 (0.0-0.1) 03/06/21 05:20 Add Manual Diff Complete 03/01/21 19:21 Total Counted 100 03/01/21 19:21 Seg Neutrophils % 72.6 % (40.0-70.0) H 03/06/21 05:20 Seg Neuts % (Manual) 49.0 % (40.0-70.0) 03/01/21 19:21 Lymphocytes % (Manual) 32.0 % (13.4-35.0) 03/01/21 19:21 Monocytes % (Manual) 17.0 % (0.0-7.3) H 03/01/21 19:21 Eosinophils % (Manual) 1.0 % (0.0-4.3) 03/01/21 19:21 Basophils % (Manual) 1.0 % (0.0-1.8) 03/01/21 19:21 Nucleated RBC % Not Reportable 03/01/21 19:21 Seg Neutrophils # 11.1 K/mm3 (1.8-7.7) H 03/06/21 05:20 Seg Neutrophils # Man 6.2 K/mm3 (1.8-7.7) 03/01/21 19:21 Band Neutrophils # 0.0 K/mm3 03/01/21 19:21 Lymphocytes # (Manual) 4.1 K/mm3 (1.2-5.4) 03/01/21 19:21 Abs React Lymphs (Man) 0.0 K/mm3 03/01/21 19:21 Monocytes # (Manual) 2.2 K/mm3 (0.0-0.8) H 03/01/21 19:21 Eosinophils # (Manual) 0.1 K/mm3 (0.0-0.4) 03/01/21 19:21 Basophils # (Manual) 0.1 K/mm3 (0.0-0.1) 03/01/21 19:21 Metamyelocytes # 0.0 K/mm3 03/01/21 19:21 Myelocytes # 0.0 K/mm3 03/01/21 19:21 Promyelocytes # 0.0 K/mm3 03/01/21 19:21 Blast Cells # 0.0 K/mm3 03/01/21 19:21 WBC Morphology Not Reportable 03/01/21 19:21 Hypersegmented Neuts Not Reportable 03/01/21 19:21 Hyposegmented Neuts Not Reportable 03/01/21 19:21 Hypogranular Neuts Not Reportable 03/01/21 19:21 Smudge Cells Not Reportable 03/01/21 19:21 Toxic Granulation Not Reportable 03/01/21 19:21 Toxic Vacuolation Not Reportable 03/01/21 19:21 Dohle Bodies Not Reportable 03/01/21 19:21 Pelger-Huet Anomaly Not Reportable 03/01/21 19:21 Katherine Rods Not Reportable 03/01/21 19:21 Platelet Estimate Not Reportable 03/01/21 19:21 Clumped Platelets Not Reportable 03/01/21 19:21 Plt Clumps, EDTA Not Reportable 03/01/21 19:21 Large Platelets Not Reportable 03/01/21 19:21 Giant Platelets Not Reportable 03/01/21 19:21 Platelet Satelliting Not Reportable 03/01/21 19:21 Plt Morphology Comment Not Reportable 03/01/21 19:21 RBC Morphology Not Reportable 03/01/21 19:21 Dimorphic RBCs Not Reportable 03/01/21 19:21 Polychromasia Not Reportable 03/01/21 19:21 Hypochromasia Not Reportable 03/01/21 19:21 Poikilocytosis Not Reportable 03/01/21 19:21 Anisocytosis Rare 03/01/21 19:21 Microcytosis Not Reportable 03/01/21 19:21 Macrocytosis Not Reportable 03/01/21 19:21 Spherocytes Not Reportable 03/01/21 19:21 Pappenheimer Bodies Not Reportable 03/01/21 19:21 Sickle Cells Not Reportable 03/01/21 19:21 Target Cells Not Reportable 03/01/21 19:21 Tear Drop Cells Not Reportable 03/01/21 19:21 Ovalocytes Not Reportable 03/01/21 19:21 Helmet Cells Not Reportable 03/01/21 19:21 Quin[place]-Tok Bodies Not Reportable 03/01/21 19:21 [place] Rings Not Reportable 03/01/21 19:21 Dusty Cells Not Reportable 03/01/21 19:21 Bite Cells Not Reportable 03/01/21 19:21 Crenated Cell Not Reportable 03/01/21 19:21 Elliptocytes Not Reportable 03/01/21 19:21 Acanthocytes (Spur) Not Reportable 03/01/21 19:21 Rouleaux Not Reportable 03/01/21 19:21 Hemoglobin C Crystals Not Reportable 03/01/21 19:21 Schistocytes Few 03/01/21 19:21 Malaria parasites Not Reportable 03/01/21 19:21 Henry Bodies Not Reportable 03/01/21 19:21 Hem Pathologist Commnt No 03/01/21 19:21 PT 15.6 Sec. (12.2-14.9) H 03/04/21 10:17 INR 1.18 (0.87-1.13) H 03/04/21 10:17 APTT 36.6 Sec. (24.2-36.6) 03/02/21 16:28 D-Dimer 249.59 ng/mlDDU (0-234) H 03/09/21 08:00 Heparin Anti-Xa Level 0.64 U.I./ml (0.3-0.7) 03/08/21 10:30 ABG pH 7.456 (7.320-7.450) H 03/09/21 04:00 POC ABG pCO2 38.9 mmHg (32.0-48.0) 03/09/21 04:00 POC ABG pO2 89.6 mmHg (83-108) 03/09/21 04:00 POC ABG HCO3 26.8 03/09/21 04:00 ABG O2 Saturation 96.8 (0-100) 03/09/21 04:00 POC ABG Base Excess 2.7 03/09/21 04:00 ABG Hemoglobin 8.9 (12.0-17.5) L 03/09/21 04:00 ABG Oxyhemoglobin 96.2 (94-98) 03/09/21 04:00 ABG Methemoglobin 0.3 (0.0-1.5) 03/09/21 04:00 ABG Sodium 135.6 mmol/L (136.0-145.0) L 03/09/21 04:00 ABG Potassium 3.7 mmol/L (3.40-4.50) 03/09/21 04:00 ABG Chloride 103.0 mmol/L (98-107) 03/09/21 04:00 ABG Glucose 298 mg/dL (65-95) H 03/09/21 04:00 Carboxyhemoglobin 0.3 (0.5-1.5) L 03/09/21 04:00 FiO2 % 45.0 03/09/21 04:00 Sodium 139 mmol/L (137-145) 03/09/21 08:00 Potassium 4.6 mmol/L (3.6-5.0) 03/09/21 08:00 Chloride 98.4 mmol/L (98-107) 03/09/21 08:00 Carbon Dioxide 30 mmol/L (22-30) 03/09/21 08:00 Anion Gap 15 mmol/L 03/09/21 08:00 BUN 44 mg/dL (9-20) H 03/09/21 08:00 Creatinine 0.8 mg/dL (0.8-1.3) 03/09/21 08:00 Estimated GFR > 60 ml/min 03/09/21 08:00 BUN/Creatinine Ratio 55 % 03/09/21 08:00 Glucose 289 mg/dL (75-100) H 03/09/21 08:00 POC Glucose 306 mg/dL (70-105) H 03/09/21 11:52 Lactic Acid 1.70 mmol/L (0.7-2.0) 03/04/21 10:17 Calcium 8.7 mg/dL (8.4-10.2) 03/09/21 08:00 Phosphorus 3.50 mg/dL (2.5-4.5) 03/06/21 05:20 Magnesium 2.00 mg/dL (1.7-2.3) 03/07/21 08:16 Ferritin 2743.0 ng/mL (30.0-300.0) H 03/09/21 08:00 Total Bilirubin 1.20 mg/dL (0.1-1.2) 03/09/21 08:00 Direct Bilirubin 0.6 mg/dL (0-0.2) H 03/04/21 05:26 Indirect Bilirubin 0.2 mg/dL 03/04/21 05:26 AST 134 units/L (5-40) H 03/09/21 08:00 ALT 62 units/L (7-56) H 03/09/21 08:00 Alkaline Phosphatase 527 units/L (35-129) H 03/09/21 08:00 Ammonia 71.0 umol/L (25-60) H 03/01/21 19:21 Lactate Dehydrogenase 459 units/L (91-180) H 03/09/21 08:00 Troponin T 0.484 ng/mL (0.00-0.029) H* 03/01/21 20:55 C-Reactive Protein 10.60 mg/dL (0.00-1.30) H 03/09/21 08:00 Total Protein 5.0 g/dL (6.3-8.2) L 03/09/21 08:00 Albumin 2.2 g/dL (3.9-5) L 03/09/21 08:00 Albumin/Globulin Ratio 0.8 % 03/09/21 08:00 Triglycerides 400 mg/dL (2-149) H 03/01/21 19: Cholesterol 232 mg/dL (50-199) H 03/01/21 19:21 LDL Cholesterol Direct 130 mg/dL (50-130) 03/01/21 19: HDL Cholesterol 22 mg/dL (40-59) L 03/01/21 19: Cholesterol/HDL Ratio 10.54 % 03/01/21 19: Lipase 78 units/L (13-60) H 03/04/21 10:17 Procalcitonin 1.18 ng/mL (<0.15) 03/08/21 06:10 TSH 1.840 mlU/mL (0.270-4.200) 03/03/21 04:06 Arterial Blood Glucose 298 mg/dL (65-95) H 03/09/21 04:00 Arterial Blood Ionized Calcium 4.5 mg/dL (4.6-5.3) L 03/09/21 04:00 Urine Color [place] (Yellow) 03/06/21 14:34 Urine Turbidity Cloudy (Clear) 03/06/21 14:34 Urine pH 5.0 (5.0-7.0) 03/06/21 14:34 Ur Specific [place] 1.014 (1.003-1.030) 03/06/21 14:34 Urine Protein 30 mg/dl mg/dL (Negative) 03/06/21 14:34 Urine Glucose (UA) Neg mg/dL (Negative) 03/06/21 14:34 Urine Ketones Neg mg/dL (Negative) 03/06/21 14:34 Urine Blood Sm (Negative) 03/06/21 14:34 Urine Nitrite Neg (Negative) 03/06/21 14:34 Urine Bilirubin Neg (Negative) 03/06/21 14:34 Urine Urobilinogen 4.0 mg/dL (<2.0) 03/06/21 14:34 Ur Leukocyte Esterase Neg (Negative) 03/06/21 14:34 Urine WBC (Auto) 103.0 /HPF (0.0-6.0) H 03/06/21 14:34 Urine RBC (Auto) 105.0 /HPF (0.0-6.0) 03/06/21 14:34 U Epithel Cells (Auto) 5.0 /HPF (0-13.0) 03/06/21 14:34 Urine Bacteria (Auto) 2+ /HPF (Negative) 03/06/21 14:34 Hyaline Casts 5 /LPF 03/06/21 14:34 Urine Mucus 1+ /HPF 03/06/21 14:34 Urine Yeast (Budding) Few /HPF 03/01/21 21:40 Urine Sperm 3+ /HPF (CALCULUS TEACHER) 03/06/21 14:34 Nasal Screen MRSA (PCR) Positive (Negative) 03/02/21 05:00 Salicylates < 0.3 mg/dL (2.8-20.0) L 03/01/21 19:21 Urine Opiates Screen Positive 03/01/21 21:40 Urine Methadone Screen Negative 03/01/21 21:40 Acetaminophen 5.0 ug/mL (10.0-30.0) L 03/01/21 19:21 Ur Barbiturates Screen Negative 03/01/21 21:40 Ur Phencyclidine Scrn Negative 03/01/21 21:40 Ur Amphetamines Screen Negative 03/01/21 21:40 U Benzodiazepines Scrn Negative 03/01/21 21:40 Urine Cocaine Screen Negative 03/01/21 21:40 U Marijuana (THC) Screen Negative 03/01/21 21:40 Drugs of Abuse Note Disclamer 03/01/21 21:40 KARLA Screen Negative (Negative) 03/03/21 04:06 Coronavirus (PCR) Positive (Negative) A 03/05/21 Unknown Blood Type O POSITIVE 03/01/21 19:21 Antibody Screen Negative 03/01/21 19:21 Microbiology: Microbiology 03/06/21 13:47 Peripheral/Venous Blood Culture - Preliminary NO GROWTH AFTER 48 HOURS 03/06/21 13:33 Peripheral/Venous Blood Culture - Preliminary NO GROWTH AFTER 48 HOURS Vilchis/IV: Voiding Method Incontinent Active Medications - Current Medications Current Medications: Generic Name Dose Route Start Last Admin Trade Name Freq PRN Reason Stop Dose Admin Acetaminophen 650 mg 03/06/21 10:00 03/06/21 12:33 Acetaminophen 325 Mg/10.15 Ml Oral Liqd Unit Dose FEEDTUBE 650 mg Q6H PRN Administration Pain MILD(1-3)/Fever >100.5/VALDES Albuterol 2.5 mg 03/02/21 15:45 Albuterol 2.5 Mg/3 Ml Nebu IH Q4H PRN Shortness Of Breath Lipase/Protease/Amylase 1 each 03/03/21 10:53 Lipase 10,500/Protease 25,000/Amylase 43,750 (Units) Dr Gutierrez FEEDTUBE PRN PRN For Clogged Feeding Tube Ascorbic Acid 500 mg 03/06/21 22:00 03/09/21 09:40 Ascorbic Acid 500 Mg Tab PO 500 mg BID KYLE Administration Aspirin 81 mg 03/04/21 10:00 03/09/21 09:40 Aspirin 81 Mg Tab Chew PO 81 mg QDAY KYLE Administration Cholecalciferol 1,000 unit 03/07/21 10:00 03/09/21 09:39 Cholecalciferol (Vit D3) 1000 Unit (25 Mcg) Tab PO 1,000 unit QDAY KYLE Administration Dexamethasone 10 mg 03/07/21 12:00 03/09/21 11:37 Dexamethasone 4 Mg/Ml Vial IV 03/15/21 12:01 10 mg Q24H KYLE Administration Dextrose 50 ml 03/02/21 11:38 Dextrose 50% In Water (25gm) 50 Ml Syringe IV Q30MIN PRN Hypoglycemia Protocol Enoxaparin Sodium 130 mg 03/09/21 11:00 03/09/21 11:35 Enoxaparin 150 Mg/1 Ml Inj SUB-Q 130 mg Q12HR KLYE Administration Protocol Famotidine 20 mg 03/04/21 10:00 03/09/21 09:40 Famotidine 20 Mg Tab PO 20 mg BID KYLE Administration Hydralazine HCl 10 mg 03/09/21 08:21 03/09/21 09:51 Hydralazine 20 Mg/1 Ml Inj IV 10 mg Q4H PRN Administration Hypertension Hydrophilic Ointment 1 applic 03/02/21 15:42 Lip Therapy Vaseline TP Q2H PRN Dry Lips Fentanyl Citrate 2,000 mcg in 100 mls @ 6.55 mls/hr 03/01/21 21:30 03/09/21 12:15 Fentanyl Drip Premix IV 2 mcg/kg/hr TITR KYLE 13.1 mls/hr Titration Protocol 1 MCG/KG/HR REMDESIVIR 100 mg/ Sodium 250 mls @ 500 mls/hr 03/07/21 21:00 03/08/21 21:46 Chloride IV 03/10/21 21:29 500 mls/hr Q24HR@2100 KYLE Administration Sodium Chloride 1,000 mls @ 1 mls/hr 03/06/21 18:11 Nacl 0.9% 500 Ml IV DIRECT PRN ARTERIAL LINE FLUSH Insulin Glargine 20 units 03/09/21 09:00 03/09/21 09:40 Insulin Glargine 100 Units/Ml SUB-Q 20 units QAMDIAB KYLE Administration Insulin Human Lispro 0 unit 03/04/21 12:00 03/09/21 11:53 Insulin Lispro 100 Unit/Ml SUB-Q 8 unit Q6HR KYLE Administration Protocol Labetalol HCl 100 mg 03/09/21 12:00 03/09/21 11:48 Labetalol 100 Mg Tab PO 100 mg BID KYLE Administration Magnesium Hydroxide 30 ml 03/02/21 00:18 Magnesium Hydroxide (Mom) Oral Liqd Udc PO Q4H PRN Constipation Multi-Ingred Cream/Lotion/Oil/Oint 1 applic 03/02/21 15:42 Mineral Oil/Petrolatum, White Ophth Oint 3.5 Gm OU Q4HR PRN Dry Eye(s) Multivitamins/Minerals 1 each 03/03/21 22:00 03/09/21 10:24 Calcium Carb/Vit D3/Minerals 600 Mg/800 Units Tab PO 1 each BID KYLE Administration Senna/Docusate Sodium 1 tab 03/02/21 22:00 03/09/21 09:40 Sennosides/Docusate Sodium 8.6/50 Mg Tab FEEDTUBE 1 tab BID KYLE Administration Simple Syrup 15 ml 03/03/21 10:53 Simple Syrup 15 Ml FEEDTUBE PRN PRN Hypoglycemia Simple Syrup 30 ml 03/03/21 10:53 Simple Syrup 15 Ml FEEDTUBE PRN PRN Hypoglycemia Sodium Bicarbonate 325 mg 03/03/21 10:53 Sodium Bicarbonate 325 Mg Tab FEEDTUBE PRN PRN For Clogged Feeding Tube Sodium Chloride 10 ml 03/02/21 10:00 03/09/21 09:40 Sodium Chloride 0.9% 10 Ml Flush Syringe IV 10 ml BID KYLE Administration Sodium Chloride 10 ml 03/02/21 00:18 Sodium Chloride 0.9% 10 Ml Flush Syringe IV PRN PRN LINE FLUSH Sodium Chloride 50 ml 03/06/21 16:00 03/08/21 21:46 Sodium Chloride 0.9% 50 Ml Ivpb IV 03/10/21 21:01 50 ml Q24HR@2100 KYLE Administration Zinc Sulfate 220 mg 03/06/21 16:00 03/09/21 09:39 Zinc Sulfate 220 Mg Cap PO 220 mg BID KYLE Administration Nutrition/Malnutrition Assess - Dietary Evaluation Nutrition/Malnutrition Findings: Nutrition Notes Start: 03/02/21 10:10 Freq: Status: Active Protocol: Document 03/07/21 11:42 RIAN (Rec: 03/07/21 11:48 RIAN [id number]) Nutrition Notes Initial or Follow up Reassessment Current Diagnosis Acute Kidney Injury,COPD, Diabetes,Sepsis,Hypertension, Heart Failure,Respiratory Failure Other Pertinent Diagnosis pneu, AMS Current Diet Glucerna 1.2 at 65 ml/hr; Flush of 100 ml q4h Labs/Tests Na 136 BG 210 Pertinent Medications reviewed Height 5 ft 10 in Weight 131 kg [place] Body Weight (kg) 75.45 BMI 41.4 Weight Status Morbidly Obese Subjective/Other Information F/u for TF tolerance. Residuals over 300 ml yesterday. TF at 10 ml/hr and RN will increase as ppt tolerates. Will follow for tolerance. Percent of energy/protein needs met: 14%/7% Burn Absent Trauma Absent Skin Integrity/Comment 2+ non-pitting edema Current % PO Negligible Minimum of two criteria No Fluid Accumulation Mild (non-severe) #1 Nutrition Diagnosis Inadequate oral intake Diagnosis Progress(for reassessment Continues documentation) Is patient on ventilator? Yes Is Patient Ambulatory and/or Out of Bed No REE-([facility]-confined to bed) 2614.728 Kcal/Kg value to use for calculation 14 Approximate Energy Requirements Using 1834 kcal/Kg Calculation Used for Recommendations Kcal/kg Additional Notes Protein: up to 2.5g/kg IBW (< or = to 189g) Fluid: 1 ml/kcal or per MD Nutrition Intervention Change Diet Order: Continue TF as tolerated Nutrition Support: Glucerna 1.2 at 65 ml/hr Flush 100 ml q4h or per MD Kcal 1,872 Protein (gm) 94 Carbohydrates (gm) 179 Fat (gm) 94 Fluid (mL) 1,256 Goal #1 Meet at least 75% of kcal needs and protein needs as best as possible via TF Goal #2 TF tolerance Anticipated Discharge Needs: Unable to determine at this time Follow-Up By: 03/11/21 Additional Comments FU for TF at goal and tolerance
--- NOTE | 2021-03-09 16:29 | XRay Report ---
CHEST 1 VIEW INDICATION: hypoxia. COMPARISON: One day prior. FINDINGS: Support devices: Endotracheal tube tip is approximately 8 cm above the nidia, this could be advanced . Otherwise unchanged. Heart: Stable. Lungs/Pleura: Bilateral pulmonary opacities have slightly improved. Small effusions are stable. No pn eumothorax. IMPRESSION: 1. Endotracheal tube tip is approximately 8 cm above the nidia, this could be advanced several centi meters. 2. Previously seen bilateral pulmonary opacities have improved. IMPORTANT FINDING: Time of Communication ([employer] DEVELOPER/CDT): 3:15 PM Licensed Practitioner Receiving Report: CCU Addi collado Signer Name: Luis E Pelayo MD Signed: 03/09/2021 4:25 PM Workstation Name: [id number]
--- NOTE | 2021-03-09 18:11 | XRay Report ---
CHEST 1 VIEW 5:51 PM INDICATION: advanced OETT. COMPARISON: Earlier today. FINDINGS: Support devices: Endotracheal tube has been advanced, the tip is approximately 5-6 cm above the rohit a. Otherwise unchanged. Heart: Stable. Lungs/Pleura: Bilateral opacities are again noted. No pneumothorax. IMPRESSION: 1. Interval advancement of endotracheal tube. Stable pulmonary opacities and effusions.. Signer Name: Luis E Pelayo MD Signed: 03/09/2021 6:07 PM Workstation Name: [email or web address]
[2021-03-09] MEDS ORDERED: dilTIAZem 25 MG/5 ML INJ IV ONE (20:25)
[2021-03-09] MEDS ORDERED: LORazepam 2 MG/ML VIAL IV PRN (20:25)
[2021-03-09] MEDS: REMDESIVIR 100 MG in SODIUM CHLORIDE 0.9% 250ML 250 ML IV SCH (22:00)
[2021-03-09] MEDS: SODIUM CHLORIDE 0.9% 50 ML IVPB IV SCH (22:11)
[2021-03-10] MEDS: INSULIN LISPRO 100 UNIT/ML SUB-Q SCH ×2 (05:09→12:36)
[2021-03-10 05:55] LABS: Hemoglobin 8.6 gm/dl (11.8-15.2)
[2021-03-10] MEDS: fentaNYL DRIP Premix 2,000 MCG/100 ML BAG IV SCH (05:56)
[2021-03-10 06:38] LABS: BUN/Creatinine Ratio 50; Blood Urea Nitrogen 45 mg/dL (9-20); Calcium 9.1 mg/dL (8.4-10.2); Hemolysis Index 5
[2021-03-10] MEDS: INSULIN GLARGINE 100 UNITS/ML SUB-Q SCH (08:05)
[2021-03-10] MEDS ORDERED: MAGNESIUM SULFATE 2 GM/50 ML BAG IV ONE (08:40)
[2021-03-10] MEDS: ASPIRIN 81 MG TAB CHEW PO SCH (10:01)
[2021-03-10] MEDS: SENNOSIDES/DOCUSATE SODIUM 8.6/50 MG TAB FEEDTUBE SCH (10:01)
[2021-03-10] MEDS: ASCORBIC ACID 500 MG TAB PO SCH (10:01)
[2021-03-10] MEDS: CHOLECALCIFEROL (VIT D3) 1000 UNIT (25 mcg) TAB PO SCH (10:03)
[2021-03-10] MEDS: ZINC SULFATE 220 MG CAP PO SCH (10:03)
[2021-03-10] MEDS: FAMOTIDINE 20 MG TAB PO SCH (10:04)
--- NOTE | 2021-03-10 10:07 | XRay Report ---
CHEST 1 VIEW INDICATION: hypoxia. COMPARISON: One day prior. FINDINGS: Support devices: Unchanged. Heart: Stable. Lungs/Pleura: Pulmonary opacities are stable. Small effusions are stable. No pneumothorax. IMPRESSION: 1. No significant change. Signer Name: Luis E Pelayo MD Signed: 03/10/2021 10:02 AM Workstation Name: [id number]
[2021-03-10] MEDS: CALCIUM CARB/VIT D3/MINERALS 600 MG/800 UNITS TAB PO SCH (10:16)
[2021-03-10] MEDS: ENOXAPARIN 150 MG/1 ML INJ SUB-Q SCH ×2 (11:02→21:13)
[2021-03-10] MEDS: dexAMETHasone 4 MG/ML VIAL IV SCH (11:06)
--- NOTE | 2021-03-10 12:20 | Progress Note ---
<JAVIERCHAVO CorralGauri - Last Filed: 03/10/21 14:49> Assessment and Plan Assessment and plan: This is a a 51 year old male admitted for for severe sepsis, respiratory failure, pneumonia and ALPHONSO. PMH: COPD, CHF, DM, DVT/PE, HTN, KAM, obesity, asthma PSx: none reported home meds: albuterol sulfate, advair, HCTZ, atrovent, glucophage, Klor-Con, midodrine, metoprolol, lasix, lantus, coumadin (from audit and home meds reconciliation) Social: unknown A/P Neuro: Metabolic encephalopathy -sedated with fentanyl-off for SBT -RASS goal 0 to -1 -Avoid delirium -Reorientation as needed -Aspiration/fall precautions -B wrist restraints for safety Cardio: SR/ST: Acute on Chronic HFpEF (per cards), NSTEMI, h/o HTN, HLD, Prolonged QTc -Cardiology consulted, appreciate recommendations -midodrine d/c r/t HTN -BP monitoring per protocol -Labetalol PO -Per cardiology: 1. gentle IV diuresis when able 2. Echo 12/13/2020 - EF 55-60%, otherwise technically difficult study. Echo 05/2016 - LV mildly dilated, EF 55-60%, grade II diastolic dysfxn, RV mildly enlarged, normal RV sys fxn, LA mildly dilated, RA mildly dilated, mild-mod AR, mild IN, mild aortic root dilatation. Resp: Acute on chronic hypoxic respiratory failure, Bilateral PNA, hx COPD, KAM, asthma, ?PE -CCM consulted, appreciate recommendations -MV, wean as tolerated -Intubated 03/01, tube exchange 03/09 OETT 8/0 @ 25 lip -Vent settings: PSV/CPAP 07/15 -Serial CXR and ABG -VAP bundle -Continuos SPO2 monitoring -abx with levaquin (03/02-03/07)-DC 03/05 r/t prolonged QTc -03/01 CT chest shows several pulmonary nodules within Right lung measuring 6-8 mm, increased interstitial prominence -? f/u outpt with PCP/pulmanology -03/10 CXR reviewed GI: Transaminitis, TF -GI consulted, appreciate recommendations -Trend LFTs -RUQ US shows no evidence of cholelithiasis, cholecytitis or choledocholithisis -CT abd/pelvis showed fatty infiltration of liver -Ntr consult for TF -PPI -BR [place] -last BM 03/06 -24 hr net (-) 225 : ALPHONSO (stable/resolved) -Nephrology consulted, appreciate recommendations -Pt was on HD at recent hospitalization at OSH -Renally dose mediations -Avoid nephrotoxic medications -Strict I&Os -Renal US shows no significant abnormality -Daily weights -Replete electrolytes -Trend BMP -s/p lasix x 2, prn hydral -Trial lasix again today Heme: DVT-R posterior tibial vein, h/o LLE DVT (December 2019)/ PE (failed Xa inhibitors per cards; on home coumadin) -evidenced on BLE Doppler US -Heparin gtt d/c to lovenox subq (03/09) -SCDs while in bed -Per cards: Eventually plan to transition to Coumadin ID: Severe Sepsis, B PNA, COVID 19 infection -s/p abx therapy (azithromycin 03/01-03/02, aztreonam 03/02, cefepime 03/01-03/02, levaquin 03/02-03/05, flagyl 03/01-03/02, vancomycin 03/01-03/02) -VAP bundle -MRSA (+) nares -COVID 19 PCR (+) -Decadron for 10 days (03/06-03/15) -Remdesivir (03/06-03/10) -Contact/Droplet precautions -03/01 BCx2 with NGTD, UC with NGTD, sputum culture normal sole -03/06 BC NGTD -Prone if needed -Vit C/D/Zinc Endo: DM -SSI, lantus (titrate as needed) -Accuchecks q6 -Avoid hypoglycemia Lines: condom cath, PIV, RADHA Disposition: ICU Full code The high probability of a clinically significant, sudden or life threatening deterioration of the [multi] system(s) required my full and direct attention, intervention and personal management. The aggregate critical care time was [60] minutes. This time is in addition to time spent performing reported procedures but includes the following: [x] Data Review and interpretation [x] Patient assessment and monitoring of vital signs [x] Documentation [x] Medication orders and management History Interval history: This is a 51-year-old -[place]une[place] male with COPD with chronic respiratory failure, CHFpEF, diabetes mellitus, DVT/PE on coumadin and hypertension who [facility] for AMS and hypoxia. On arrival of EMS oxygen saturation was about 88% on room air, blood pressure was said to be about 88/50 mmHg. Work-up in the emergency room reveals leukocytosis of 12.7, hemoglobin of 9.1 and hematocrit of 27.7, sodium of 132, lactic acid of 2.90, elevated liver enzymes and elevated troponin at 0.493. A CT of the chest showed findings concerning for atelectasis and or infiltrate, CT of the head was unremarkable. Patient was in severe respiratory distress upon arrival in the emergency room and subsequently intubated. Patient was admitted to the hospitalist service with consults to cardiology, CCM, GI, and neprohology for severe sepsis, respiratory failure, pneumonia and ALPHONSO. Of note patient was admitted to [facility] from 12/12-01/14 and was on HD during that admit. 03/03/21: Patient remains intubated, continue on heparin drip, monitor H&H and BMP. Continue empiric antibiotics, ID following. Follow ammonia level and LFT. According to cardiology patient indeed had preserved EF during his recent admission to [place]. Plan to repeat 2D echo. Critical care following, wean off from vent as tolerated. 03/04: RN reported blood y secretions in OETT and clots, heparin gtt stopped and B LE US obtained which shows DVT, abx deescalated, heparin gtt restarted. 03/05: RN reported vomiting x1, promithazine x1 given, Qtc at 599 on EKG. AM labs pending. tmax 102.2, reculture with next spike, COVID 19 PCR. abx stopped re prolonged qtc and received CAP coverage. 03/06: Reported high TF residual, COVID PCR pending. Cr better today. tmax 100.7 03/07: radha placed yesterday, started on remdesivir re positive covid. ID consulted yesterday. SHERYL overnight. 03/08: SHERYL reported overnight. Patient is now hypertensive and midodrine has been held. Will now place on low dose antihtn and prn hydral. 03/09: Patient reportedly through tube and OETT was exchanged, patient was given paralytic for exchange. No acute events reported overnight. Patient noted to be hypertensive and we will trial Lasix again today. 03/10: PSV trial today. fentayl was stopped. BP maintaining. SHERYL overnight. Hospitalist Physical - Constitutional Vitals: Temp Pulse Resp BP Pulse Ox 98.9 F 92 H 11 L 154/78 95 03/10/21 03:47 03/10/21 12:09 03/10/21 12:09 03/10/21 12:09 03/10/21 12:09 General appearance: Present: no acute distress, well-nourished, obese, other (sedated) - EENT Eyes: Present: PERRL, EOM intact ENT: clear oral mucosa - Neck Neck: Present: normal ROM - Respiratory Respiratory effort: normal Respiratory: bilateral: diminished - Cardiovascular Rhythm: regular Heart Sounds: Present: S1 & S2. Absent: systolic murmur, diastolic murmur - Extremities Extremities: no ischemia, pulses intact, pulses symmetrical, No edema, normal temperature, normal color - Abdominal General gastrointestinal: soft, non-tender, non-distended, normal bowel sounds - Integumentary Integumentary: Present: clear, warm, dry - Psychiatric Psychiatric: cooperative - Neurologic Neurologic: moves all extremities - Allied Health Allied health notes reviewed: nursing, RT HEART Score - HEART Score Troponin: Troponin T 0.484 ng/mL (0.00-0.029) H* 03/01/21 20:55 Results - Labs CBC & Chem 7: 03/10/21 05:25 03/10/21 05:25 Labs: Laboratory Last Values WBC 8.0 K/mm3 (4.5-11.0) 03/09/21 08:00 RBC 2.60 M/mm3 (3.65-5.03) L 03/09/21 08:00 Hgb 8.6 gm/dl (11.8-15.2) L 03/10/21 05:25 Hct 26.0 % (35.5-45.6) L 03/10/21 05:25 MCV 98 fl (84-94) H 03/09/21 08:00 MCH 33 pg (28-32) H 03/09/21 08:00 MCHC 33 % (32-34) 03/09/21 08:00 RDW 18.1 % (13.2-15.2) H 03/09/21 08:00 Plt Count 198 K/mm3 (140-440) 03/10/21 05:25 Lymph % (Auto) 22.4 % (13.4-35.0) 03/06/21 05:20 Williams % (Auto) 4.5 % (0.0-7.3) 03/06/21 05:20 Eos % (Auto) 0.2 % (0.0-4.3) 03/06/21 05:20 Baso % (Auto) 0.3 % (0.0-1.8) 03/06/21 05:20 Lymph # (Auto) 3.4 K/mm3 (1.2-5.4) 03/06/21 05:20 Williams # (Auto) 0.7 K/mm3 (0.0-0.8) 03/06/21 05:20 Eos # (Auto) 0.0 K/mm3 (0.0-0.4) 03/06/21 05:20 Baso # (Auto) 0.1 K/mm3 (0.0-0.1) 03/06/21 05:20 Add Manual Diff Complete 03/01/21 19:21 Total Counted 100 03/01/21 19:21 Seg Neutrophils % 72.6 % (40.0-70.0) H 03/06/21 05:20 Seg Neuts % (Manual) 49.0 % (40.0-70.0) 03/01/21 19:21 Lymphocytes % (Manual) 32.0 % (13.4-35.0) 03/01/21 19:21 Monocytes % (Manual) 17.0 % (0.0-7.3) H 03/01/21 19:21 Eosinophils % (Manual) 1.0 % (0.0-4.3) 03/01/21 19:21 Basophils % (Manual) 1.0 % (0.0-1.8) 03/01/21 19:21 Nucleated RBC % Not Reportable 03/01/21 19:21 Seg Neutrophils # 11.1 K/mm3 (1.8-7.7) H 03/06/21 05:20 Seg Neutrophils # Man 6.2 K/mm3 (1.8-7.7) 03/01/21 19:21 Band Neutrophils # 0.0 K/mm3 03/01/21 19:21 Lymphocytes # (Manual) 4.1 K/mm3 (1.2-5.4) 03/01/21 19:21 Abs React Lymphs (Man) 0.0 K/mm3 03/01/21 19:21 Monocytes # (Manual) 2.2 K/mm3 (0.0-0.8) H 03/01/21 19:21 Eosinophils # (Manual) 0.1 K/mm3 (0.0-0.4) 03/01/21 19:21 Basophils # (Manual) 0.1 K/mm3 (0.0-0.1) 03/01/21 19:21 Metamyelocytes # 0.0 K/mm3 03/01/21 19:21 Myelocytes # 0.0 K/mm3 03/01/21 19:21 Promyelocytes # 0.0 K/mm3 03/01/21 19:21 Blast Cells # 0.0 K/mm3 03/01/21 19:21 WBC Morphology Not Reportable 03/01/21 19:21 Hypersegmented Neuts Not Reportable 03/01/21 19:21 Hyposegmented Neuts Not Reportable 03/01/21 19:21 Hypogranular Neuts Not Reportable 03/01/21 19:21 Smudge Cells Not Reportable 03/01/21 19:21 Toxic Granulation Not Reportable 03/01/21 19:21 Toxic Vacuolation Not Reportable 03/01/21 19:21 Dohle Bodies Not Reportable 03/01/21 19:21 Pelger-Huet Anomaly Not Reportable 03/01/21 19:21 Katherine Rods Not Reportable 03/01/21 19:21 Platelet Estimate Not Reportable 03/01/21 19:21 Clumped Platelets Not Reportable 03/01/21 19:21 Plt Clumps, EDTA Not Reportable 03/01/21 19:21 Large Platelets Not Reportable 03/01/21 19:21 Giant Platelets Not Reportable 03/01/21 19:21 Platelet Satelliting Not Reportable 03/01/21 19:21 Plt Morphology Comment Not Reportable 03/01/21 19:21 RBC Morphology Not Reportable 03/01/21 19:21 Dimorphic RBCs Not Reportable 03/01/21 19:21 Polychromasia Not Reportable 03/01/21 19:21 Hypochromasia Not Reportable 03/01/21 19:21 Poikilocytosis Not Reportable 03/01/21 19:21 Anisocytosis Rare 03/01/21 19:21 Microcytosis Not Reportable 03/01/21 19:21 Macrocytosis Not Reportable 03/01/21 19:21 Spherocytes Not Reportable 03/01/21 19:21 Pappenheimer Bodies Not Reportable 03/01/21 19:21 Sickle Cells Not Reportable 03/01/21 19:21 Target Cells Not Reportable 03/01/21 19:21 Tear Drop Cells Not Reportable 03/01/21 19:21 Ovalocytes Not Reportable 03/01/21 19:21 Helmet Cells Not Reportable 03/01/21 19:21 Quinones-Sangrey Bodies Not Reportable 03/01/21 19:21 Jackson Rings Not Reportable 03/01/21 19:21 Dusty Cells Not Reportable 03/01/21 19:21 Bite Cells Not Reportable 03/01/21 19:21 Crenated Cell Not Reportable 03/01/21 19:21 Elliptocytes Not Reportable 03/01/21 19:21 Acanthocytes (Spur) Not Reportable 03/01/21 19:21 Rouleaux Not Reportable 03/01/21 19:21 Hemoglobin C Crystals Not Reportable 03/01/21 19:21 Schistocytes Few 03/01/21 19:21 Malaria parasites Not Reportable 03/01/21 19:21 Henry Bodies Not Reportable 03/01/21 19:21 Hem Pathologist Commnt No 03/01/21 19:21 PT 15.6 Sec. (12.2-14.9) H 03/04/21 10:17 INR 1.18 (0.87-1.13) H 03/04/21 10:17 APTT 36.6 Sec. (24.2-36.6) 03/02/21 16:28 D-Dimer 249.59 ng/mlDDU (0-234) H 03/09/21 08:00 Heparin Anti-Xa Level 0.64 U.I./ml (0.3-0.7) 03/08/21 10:30 ABG pH 7.456 (7.320-7.450) H 03/09/21 04:00 POC ABG pCO2 38.9 mmHg (32.0-48.0) 03/09/21 04:00 POC ABG pO2 89.6 mmHg (83-108) 03/09/21 04:00 POC ABG HCO3 26.8 03/09/21 04:00 ABG O2 Saturation 96.8 (0-100) 03/09/21 04:00 POC ABG Base Excess 2.7 03/09/21 04:00 ABG Hemoglobin 8.9 (12.0-17.5) L 03/09/21 04:00 ABG Oxyhemoglobin 96.2 (94-98) 03/09/21 04:00 ABG Methemoglobin 0.3 (0.0-1.5) 03/09/21 04:00 ABG Sodium 135.6 mmol/L (136.0-145.0) L 03/09/21 04:00 ABG Potassium 3.7 mmol/L (3.40-4.50) 03/09/21 04:00 ABG Chloride 103.0 mmol/L (98-107) 03/09/21 04:00 ABG Glucose 298 mg/dL (65-95) H 03/09/21 04:00 Carboxyhemoglobin 0.3 (0.5-1.5) L 03/09/21 04:00 FiO2 % 45.0 03/09/21 04:00 Sodium 144 mmol/L (137-145) 03/10/21 05:25 Potassium 4.1 mmol/L (3.6-5.0) 03/10/21 05:25 Chloride 102.7 mmol/L (98-107) 03/10/21 05:25 Carbon Dioxide 32 mmol/L (22-30) H 03/10/21 05:25 Anion Gap 13 mmol/L 03/10/21 05:25 BUN 45 mg/dL (9-20) H 03/10/21 05:25 Creatinine 0.9 mg/dL (0.8-1.3) 03/10/21 05:25 Estimated GFR > 60 ml/min 03/10/21 05:25 BUN/Creatinine Ratio 50 % 03/10/21 05:25 Glucose 341 mg/dL (75-100) H 03/10/21 05:25 POC Glucose 310 mg/dL (70-105) H 03/10/21 04:38 Lactic Acid 1.70 mmol/L (0.7-2.0) 03/04/21 10:17 Calcium 9.1 mg/dL (8.4-10.2) 03/10/21 05:25 Phosphorus 3.30 mg/dL (2.5-4.5) 03/10/21 05:25 Magnesium 1.70 mg/dL (1.7-2.3) 03/09/21 20:00 Ferritin 2743.0 ng/mL (30.0-300.0) H 03/09/21 08:00 Total Bilirubin 1.20 mg/dL (0.1-1.2) 03/09/21 08:00 Direct Bilirubin 0.6 mg/dL (0-0.2) H 03/04/21 05:26 Indirect Bilirubin 0.2 mg/dL 03/04/21 05:26 AST 134 units/L (5-40) H 03/09/21 08:00 ALT 62 units/L (7-56) H 03/09/21 08:00 Alkaline Phosphatase 527 units/L (35-129) H 03/09/21 08:00 Ammonia 71.0 umol/L (25-60) H 03/01/21 19:21 Lactate Dehydrogenase 459 units/L (91-180) H 03/09/21 08:00 Troponin T 0.484 ng/mL (0.00-0.029) H* 03/01/21 20:55 C-Reactive Protein 10.60 mg/dL (0.00-1.30) H 03/09/21 08:00 Total Protein 5.0 g/dL (6.3-8.2) L 03/09/21 08:00 Albumin 2.2 g/dL (3.9-5) L 03/09/21 08:00 Albumin/Globulin Ratio 0.8 % 03/09/21 08:00 Triglycerides 400 mg/dL (2-149) H 03/01/21 19:21 Cholesterol 232 mg/dL (50-199) H 03/01/21 19:21 LDL Cholesterol Direct 130 mg/dL (50-130) 03/01/21 19: HDL Cholesterol 22 mg/dL (40-59) L 03/01/21 19:21 Cholesterol/HDL Ratio 10.54 % 03/01/21 19:21 Lipase 78 units/L (13-60) H 03/04/21 10:17 Procalcitonin 1.18 ng/mL (<0.15) 03/08/21 06:10 TSH 1.840 mlU/mL (0.270-4.200) 03/03/21 04:06 Arterial Blood Glucose 298 mg/dL (65-95) H 03/09/21 04:00 Arterial Blood Ionized Calcium 4.5 mg/dL (4.6-5.3) L 03/09/21 04:00 Urine Color Ari[place]ne (Yellow) 03/06/21 14:34 Urine Turbidity Cloudy (Clear) 03/06/21 14:34 Urine pH 5.0 (5.0-7.0) 03/06/21 14:34 Ur Specific [place] 1.014 (1.003-1.030) 03/06/21 14:34 Urine Protein 30 mg/dl mg/dL (Negative) 03/06/21 14:34 Urine Glucose (UA) Neg mg/dL (Negative) 03/06/21 14:34 Urine Ketones Neg mg/dL (Negative) 03/06/21 14:34 Urine Blood Sm (Negative) 03/06/21 14:34 Urine Nitrite Neg (Negative) 03/06/21 14:34 Urine Bilirubin Neg (Negative) 03/06/21 14:34 Urine Urobilinogen 4.0 mg/dL (<2.0) 03/06/21 14:34 Ur Leukocyte Esterase Neg (Negative) 03/06/21 14:34 Urine WBC (Auto) 103.0 /HPF (0.0-6.0) H 03/06/21 14:34 Urine RBC (Auto) 105.0 /HPF (0.0-6.0) 03/06/21 14:34 U Epithel Cells (Auto) 5.0 /HPF (0-13.0) 03/06/21 14:34 Urine Bacteria (Auto) 2+ /HPF (Negative) 03/06/21 14:34 Hyaline Casts 5 /LPF 03/06/21 14:34 Urine Mucus 1+ /HPF 03/06/21 14:34 Urine Yeast (Budding) Few /HPF 03/01/21 21:40 Urine Sperm 3+ /HPF (CHIE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) 03/06/21 14:34 Nasal Screen MRSA (PCR) Positive (Negative) 03/02/21 05:00 Salicylates < 0.3 mg/dL (2.8-20.0) L 03/01/21 19:21 Urine Opiates Screen Positive 03/01/21 21:40 Urine Methadone Screen Negative 03/01/21 21:40 Acetaminophen 5.0 ug/mL (10.0-30.0) L 03/01/21 19:21 Ur Barbiturates Screen Negative 03/01/21 21:40 Ur Phencyclidine Scrn Negative 03/01/21 21:40 Ur Amphetamines Screen Negative 03/01/21 21:40 U Benzodiazepines Scrn Negative 03/01/21 21:40 Urine Cocaine Screen Negative 03/01/21 21:40 U Marijuana (THC) Screen Negative 03/01/21 21:40 Drugs of Abuse Note Disclamer 03/01/21 21:40 KARLA Screen Negative (Negative) 03/03/21 04:06 Coronavirus (PCR) Positive (Negative) A 03/05/21 Unknown Blood Type O POSITIVE 03/01/21 19:21 Antibody Screen Negative 03/01/21 19:21 Microbiology: Microbiology 03/06/21 13:47 Peripheral/Venous Blood Culture - Preliminary NO GROWTH AFTER 72 HOURS 03/06/21 13:33 Peripheral/Venous Blood Culture - Preliminary NO GROWTH AFTER 72 HOURS Vilchis/IV: Voiding Method Incontinent Active Medications - Current Medications Current Medications: Generic Name Dose Route Start Last Admin Trade Name Freq PRN Reason Stop Dose Admin Acetaminophen 650 mg 03/06/21 10:00 03/06/21 12:33 Acetaminophen 325 Mg/10.15 Ml Oral Liqd Unit Dose FEEDTUBE 650 mg Q6H PRN Administration Pain MILD(1-3)/Fever >100.5/VALDES Albuterol 2.5 mg 03/02/21 15:45 Albuterol 2.5 Mg/3 Ml Nebu IH Q4H PRN Shortness Of Breath Lipase/Protease/Amylase 1 each 03/03/21 10:53 Lipase 10,500/Protease 25,000/Amylase 43,750 (Units) Dr Gutierrez FEEDTUBE PRN PRN For Clogged Feeding Tube Ascorbic Acid 500 mg 03/06/21 22:00 03/10/21 10:01 Ascorbic Acid 500 Mg Tab PO 500 mg BID KYLE Administration Aspirin 81 mg 03/04/21 10:00 03/10/21 10:01 Aspirin 81 Mg Tab Chew PO 81 mg QDAY KYLE Administration Cholecalciferol 1,000 unit 03/07/21 10:00 03/10/21 10:03 Cholecalciferol (Vit D3) 1000 Unit (25 Mcg) Tab PO 1,000 unit QDAY KYLE Administration Dexamethasone 10 mg 03/07/21 12:00 03/10/21 11:06 Dexamethasone 4 Mg/Ml Vial IV 03/15/21 12:01 10 mg Q24H KYLE Administration Dextrose 50 ml 03/02/21 11:38 Dextrose 50% In Water (25gm) 50 Ml Syringe IV Q30MIN PRN Hypoglycemia Protocol Enoxaparin Sodium 130 mg 03/09/21 11:00 03/10/21 11:02 Enoxaparin 150 Mg/1 Ml Inj SUB-Q 130 mg Q12HR KYLE Administration Protocol Famotidine 20 mg 03/04/21 10:00 03/10/21 10:04 Famotidine 20 Mg Tab PO 20 mg BID KYLE Administration Hydralazine HCl 10 mg 03/09/21 08:21 03/09/21 09:51 Hydralazine 20 Mg/1 Ml Inj IV 10 mg Q4H PRN Administration Hypertension Hydrophilic Ointment 1 applic 03/02/21 15:42 Lip Therapy Vaseline TP Q2H PRN Dry Lips Fentanyl Citrate 2,000 mcg in 100 mls @ 6.55 mls/hr 03/01/21 21:30 03/10/21 09:00 Fentanyl Drip Premix IV 0 mcg/kg/hr TITR KYLE 0 mls/hr Titration Protocol 1 MCG/KG/HR REMDESIVIR 100 mg/ Sodium 250 mls @ 500 mls/hr 03/07/21 21:00 03/09/21 22:00 Chloride IV 03/10/21 21:29 500 mls/hr Q24HR@2100 KYLE Administration Sodium Chloride 1,000 mls @ 1 mls/hr 03/06/21 18:11 Nacl 0.9% 500 Ml IV DIRECT PRN ARTERIAL LINE FLUSH Insulin Glargine 20 units 03/09/21 09:00 03/10/21 08:05 Insulin Glargine 100 Units/Ml SUB-Q 20 units QAMDIAB KYLE Administration Insulin Human Lispro 0 unit 03/04/21 12:00 03/10/21 05:09 Insulin Lispro 100 Unit/Ml SUB-Q 8 unit Q6HR KYLE Administration Protocol Labetalol HCl 100 mg 03/09/21 12:00 03/10/21 10:02 Labetalol 100 Mg Tab PO 100 mg BID KYLE Administration Magnesium Hydroxide 30 ml 03/02/21 00:18 Magnesium Hydroxide (Mom) Oral Liqd Udc PO Q4H PRN Constipation Multi-Ingred Cream/Lotion/Oil/Oint 1 applic 03/02/21 15:42 Mineral Oil/Petrolatum, White Ophth Oint 3.5 Gm OU Q4HR PRN Dry Eye(s) Multivitamins/Minerals 1 each 03/03/21 22:00 03/10/21 10:16 Calcium Carb/Vit D3/Minerals 600 Mg/800 Units Tab PO 1 each BID KYLE Administration Senna/Docusate Sodium 1 tab 03/02/21 22:00 03/10/21 10:01 Sennosides/Docusate Sodium 8.6/50 Mg Tab FEEDTUBE 1 tab BID KYLE Administration Simple Syrup 15 ml 03/03/21 10:53 Simple Syrup 15 Ml FEEDTUBE PRN PRN Hypoglycemia Simple Syrup 30 ml 03/03/21 10:53 Simple Syrup 15 Ml FEEDTUBE PRN PRN Hypoglycemia Sodium Bicarbonate 325 mg 03/03/21 10:53 Sodium Bicarbonate 325 Mg Tab FEEDTUBE PRN PRN For Clogged Feeding Tube Sodium Chloride 10 ml 03/02/21 10:00 03/10/21 10:04 Sodium Chloride 0.9% 10 Ml Flush Syringe IV 10 ml BID KYLE Administration Sodium Chloride 10 ml 03/02/21 00:18 Sodium Chloride 0.9% 10 Ml Flush Syringe IV PRN PRN LINE FLUSH Sodium Chloride 50 ml 03/06/21 16:00 03/09/21 22:11 Sodium Chloride 0.9% 50 Ml Ivpb IV 03/10/21 21:01 50 ml Q24HR@2100 KYLE Administration Zinc Sulfate 220 mg 03/06/21 16:00 03/10/21 10:03 Zinc Sulfate 220 Mg Cap PO 220 mg BID KYEL Administration Nutrition/Malnutrition Assess - Dietary Evaluation Nutrition/Malnutrition Findings: Nutrition Notes Start: 03/02/21 10:10 Freq: Status: Active Protocol: Document 03/07/21 11:42 (Rec: 03/07/21 11:48 [id number]) Nutrition Notes Initial or Follow up Reassessment Current Diagnosis Acute Kidney Injury,COPD, Diabetes,Sepsis,Hypertension, Heart Failure,Respiratory Failure Other Pertinent Diagnosis pneu, AMS Current Diet Glucerna 1.2 at 65 ml/hr; Flush of 100 ml q4h Labs/Tests Na 136 BG 210 Pertinent Medications reviewed Height 5 ft 10 in Weight 131 kg [place] Body Weight (kg) 75.45 BMI 41.4 Weight Status Morbidly Obese Subjective/Other Information F/u for TF tolerance. Residuals over 300 ml yesterday. TF at 10 ml/hr and RN will increase as ppt tolerates. Will follow for tolerance. Percent of energy/protein needs met: 14%/7% Burn Absent Trauma Absent Skin Integrity/Comment 2+ non-pitting edema Current % PO Negligible Minimum of two criteria No Fluid Accumulation Mild (non-severe) #1 Nutrition Diagnosis Inadequate oral intake Diagnosis Progress(for reassessment Continues documentation) Is patient on ventilator? Yes Is Patient Ambulatory and/or Out of Bed No REE-([place]-St. Jeor-confined to bed) 2614.728 Kcal/Kg value to use for calculation 14 Approximate Energy Requirements Using 1834 kcal/Kg Calculation Used for Recommendations Kcal/kg Additional Notes Protein: up to 2.5g/kg IBW (< or = to 189g) Fluid: 1 ml/kcal or per MD Nutrition Intervention Change Diet Order: Continue TF as tolerated Nutrition Support: Glucerna 1.2 at 65 ml/hr Flush 100 ml q4h or per MD Kcal 1,872 Protein (gm) 94 Carbohydrates (gm) 179 Fat (gm) 94 Fluid (mL) 1,256 Goal #1 Meet at least 75% of kcal needs and protein needs as best as possible via TF Goal #2 TF tolerance Anticipated Discharge Needs: Unable to determine at this time Follow-Up By: 03/11/21 Additional Comments FU for TF at goal and tolerance <YENNI ARMENDARIZ - Last Filed: 03/10/21 17:16> Assessment and Plan Assessment and plan: I saw and evaluated the patient. I agree with the findings and the plan of care as documented in the Nurse Practitioner's~note, with the following corrections and additions. Hospitalist Physical - Constitutional Vitals: Temp Pulse Resp BP Pulse Ox 98.9 F 103 H 17 174/107 90 03/10/21 03:47 03/10/21 16:00 03/10/21 16:00 03/10/21 16:00 03/10/21 16:00 HEART Score - HEART Score Troponin: Troponin T 0.484 ng/mL (0.00-0.029) H* 03/01/21 20:55 Results - Labs CBC & Chem 7: 03/10/21 05:25 03/10/21 05:25 Labs: Laboratory Last Values WBC 8.0 K/mm3 (4.5-11.0) 03/09/21 08:00 RBC 2.60 M/mm3 (3.65-5.03) L 03/09/21 08:00 Hgb 8.6 gm/dl (11.8-15.2) L 03/10/21 05:25 Hct 26.0 % (35.5-45.6) L 03/10/21 05:25 MCV 98 fl (84-94) H 03/09/21 08:00 MCH 33 pg (28-32) H 03/09/21 08:00 MCHC 33 % (32-34) 03/09/21 08:00 RDW 18.1 % (13.2-15.2) H 03/09/21 08:00 Plt Count 198 K/mm3 (140-440) 03/10/21 05:25 Lymph % (Auto) 22.4 % (13.4-35.0) 03/06/21 05:20 Williams % (Auto) 4.5 % (0.0-7.3) 03/06/21 05:20 Eos % (Auto) 0.2 % (0.0-4.3) 03/06/21 05:20 Baso % (Auto) 0.3 % (0.0-1.8) 03/06/21 05:20 Lymph # (Auto) 3.4 K/mm3 (1.2-5.4) 03/06/21 05:20 Williams # (Auto) 0.7 K/mm3 (0.0-0.8) 03/06/21 05:20 Eos # (Auto) 0.0 K/mm3 (0.0-0.4) 03/06/21 05:20 Baso # (Auto) 0.1 K/mm3 (0.0-0.1) 03/06/21 05:20 Add Manual Diff Complete 03/01/21 19:21 Total Counted 100 03/01/21 19:21 Seg Neutrophils % 72.6 % (40.0-70.0) H 03/06/21 05:20 Seg Neuts % (Manual) 49.0 % (40.0-70.0) 03/01/21 19:21 Lymphocytes % (Manual) 32.0 % (13.4-35.0) 03/01/21 19:21 Monocytes % (Manual) 17.0 % (0.0-7.3) H 03/01/21 19:21 Eosinophils % (Manual) 1.0 % (0.0-4.3) 03/01/21 19:21 Basophils % (Manual) 1.0 % (0.0-1.8) 03/01/21 19:21 Nucleated RBC % Not Reportable 03/01/21 19:21 Seg Neutrophils # 11.1 K/mm3 (1.8-7.7) H 03/06/21 05:20 Seg Neutrophils # Man 6.2 K/mm3 (1.8-7.7) 03/01/21 19:21 Band Neutrophils # 0.0 K/mm3 03/01/21 19:21 Lymphocytes # (Manual) 4.1 K/mm3 (1.2-5.4) 03/01/21 19:21 Abs React Lymphs (Man) 0.0 K/mm3 03/01/21 19:21 Monocytes # (Manual) 2.2 K/mm3 (0.0-0.8) H 03/01/21 19:21 Eosinophils # (Manual) 0.1 K/mm3 (0.0-0.4) 03/01/21 19:21 Basophils # (Manual) 0.1 K/mm3 (0.0-0.1) 03/01/21 19:21 Metamyelocytes # 0.0 K/mm3 03/01/21 19:21 Myelocytes # 0.0 K/mm3 03/01/21 19:21 Promyelocytes # 0.0 K/mm3 03/01/21 19:21 Blast Cells # 0.0 K/mm3 03/01/21 19:21 WBC Morphology Not Reportable 03/01/21 19:21 Hypersegmented Neuts Not Reportable 03/01/21 19:21 Hyposegmented Neuts Not Reportable 03/01/21 19:21 Hypogranular Neuts Not Reportable 03/01/21 19:21 Smudge Cells Not Reportable 03/01/21 19:21 Toxic Granulation Not Reportable 03/01/21 19:21 Toxic Vacuolation Not Reportable 03/01/21 19:21 Dohle Bodies Not Reportable 03/01/21 19:21 Pelger-Huet Anomaly Not Reportable 03/01/21 19:21 Katherine Rods Not Reportable 03/01/21 19:21 Platelet Estimate Not Reportable 03/01/21 19:21 Clumped Platelets Not Reportable 03/01/21 19:21 Plt Clumps, EDTA Not Reportable 03/01/21 19:21 Large Platelets Not Reportable 03/01/21 19:21 Giant Platelets Not Reportable 03/01/21 19:21 Platelet Satelliting Not Reportable 03/01/21 19:21 Plt Morphology Comment Not Reportable 03/01/21 19:21 RBC Morphology Not Reportable 03/01/21 19:21 Dimorphic RBCs Not Reportable 03/01/21 19:21 Polychromasia Not Reportable 03/01/21 19:21 Hypochromasia Not Reportable 03/01/21 19:21 Poikilocytosis Not Reportable 03/01/21 19:21 Anisocytosis Rare 03/01/21 19:21 Microcytosis Not Reportable 03/01/21 19:21 Macrocytosis Not Reportable 03/01/21 19:21 Spherocytes Not Reportable 03/01/21 19:21 Pappenheimer Bodies Not Reportable 03/01/21 19:21 Sickle Cells Not Reportable 03/01/21 19:21 Target Cells Not Reportable 03/01/21 19:21 Tear Drop Cells Not Reportable 03/01/21 19:21 Ovalocytes Not Reportable 03/01/21 19:21 Helmet Cells Not Reportable 03/01/21 19:21 Quinones-Sangrey Bodies Not Reportable 03/01/21 19:21 Jackson Rings Not Reportable 03/01/21 19:21 [place] Cells Not Reportable 03/01/21 19:21 Bite Cells Not Reportable 03/01/21 19:21 Crenated Cell Not Reportable 03/01/21 19:21 Elliptocytes Not Reportable 03/01/21 19:21 Acanthocytes (Spur) Not Reportable 03/01/21 19:21 Rouleaux Not Reportable 03/01/21 19:21 Hemoglobin C Crystals Not Reportable 03/01/21 19:21 Schistocytes Few 03/01/21 19:21 Malaria parasites Not Reportable 03/01/21 19:21 Henry Bodies Not Reportable 03/01/21 19:21 Hem Pathologist Commnt No 03/01/21 19:21 PT 15.6 Sec. (12.2-14.9) H 03/04/21 10:17 INR 1.18 (0.87-1.13) H 03/04/21 10:17 APTT 36.6 Sec. (24.2-36.6) 03/02/21 16:28 D-Dimer 249.59 ng/mlDDU (0-234) H 03/09/21 08:00 Heparin Anti-Xa Level 0.64 U.I./ml (0.3-0.7) 03/08/21 10:30 ABG pH 7.487 (7.320-7.450) H 03/10/21 12:33 POC ABG pCO2 40.4 mmHg (32.0-48.0) 03/10/21 12:33 POC ABG pO2 62.1 mmHg (83-108) L 03/10/21 12:33 POC ABG HCO3 29.9 03/10/21 12:33 ABG O2 Saturation 90.2 (0-100) 03/10/21 12:33 POC ABG Base Excess 6.0 03/10/21 12:33 ABG Hemoglobin 9.4 (12.0-17.5) L 03/10/21 12:33 ABG Oxyhemoglobin 89.7 (94-98) L 03/10/21 12:33 ABG Methemoglobin 0.3 (0.0-1.5) 03/10/21 12:33 ABG Sodium 138.7 mmol/L (136.0-145.0) 03/10/21 12:33 ABG Potassium 3.7 mmol/L (3.40-4.50) 03/10/21 12:33 ABG Chloride 104.0 mmol/L (98-107) 03/10/21 12:33 ABG Glucose 350 mg/dL (65-95) H 03/10/21 12:33 Carboxyhemoglobin 0.2 (0.5-1.5) L 03/10/21 12:33 FiO2 % 35.0 03/10/21 12:33 Sodium 144 mmol/L (137-145) 03/10/21 05:25 Potassium 4.1 mmol/L (3.6-5.0) 03/10/21 05:25 Chloride 102.7 mmol/L (98-107) 03/10/21 05:25 Carbon Dioxide 32 mmol/L (22-30) H 03/10/21 05:25 Anion Gap 13 mmol/L 03/10/21 05:25 BUN 45 mg/dL (9-20) H 03/10/21 05:25 Creatinine 0.9 mg/dL (0.8-1.3) 03/10/21 05:25 Estimated GFR > 60 ml/min 03/10/21 05:25 BUN/Creatinine Ratio 50 % 03/10/21 05:25 Glucose 341 mg/dL (75-100) H 03/10/21 05:25 POC Glucose 298 mg/dL (70-105) H 03/10/21 17:05 Lactic Acid 1.70 mmol/L (0.7-2.0) 03/04/21 10:17 Calcium 9.1 mg/dL (8.4-10.2) 03/10/21 05:25 Phosphorus 3.30 mg/dL (2.5-4.5) 03/10/21 05:25 Magnesium 1.70 mg/dL (1.7-2.3) 03/09/21 20:00 Ferritin 2743.0 ng/mL (30.0-300.0) H 03/09/21 08:00 Total Bilirubin 1.20 mg/dL (0.1-1.2) 03/09/21 08:00 Direct Bilirubin 0.6 mg/dL (0-0.2) H 03/04/21 05:26 Indirect Bilirubin 0.2 mg/dL 03/04/21 05:26 AST 134 units/L (5-40) H 03/09/21 08:00 ALT 62 units/L (7-56) H 03/09/21 08:00 Alkaline Phosphatase 527 units/L (35-129) H 03/09/21 08:00 Ammonia 71.0 umol/L (25-60) H 03/01/21 19:21 Lactate Dehydrogenase 459 units/L (91-180) H 03/09/21 08:00 Troponin T 0.484 ng/mL (0.00-0.029) H* 03/01/21 20:55 C-Reactive Protein 10.60 mg/dL (0.00-1.30) H 03/09/21 08:00 Total Protein 5.0 g/dL (6.3-8.2) L 03/09/21 08:00 Albumin 2.2 g/dL (3.9-5) L 03/09/21 08:00 Albumin/Globulin Ratio 0.8 % 03/09/21 08:00 Triglycerides 400 mg/dL (2-149) H 03/01/21 19:21 Cholesterol 232 mg/dL (50-199) H 03/01/21 19:21 LDL Cholesterol Direct 130 mg/dL (50-130) 03/01/21 19: HDL Cholesterol 22 mg/dL (40-59) L 03/01/21 19: Cholesterol/HDL Ratio 10.54 % 03/01/21 19: Lipase 78 units/L (13-60) H 03/04/21 10:17 Procalcitonin 1.18 ng/mL (<0.15) 03/08/21 06:10 TSH 1.840 mlU/mL (0.270-4.200) 03/03/21 04:06 Arterial Blood Glucose 350 mg/dL (65-95) H 03/10/21 12:33 Arterial Blood Ionized Calcium 4.6 mg/dL (4.6-5.3) 03/10/21 12:33 Urine Color [place] (Yellow) 03/06/21 14:34 Urine Turbidity Cloudy (Clear) 03/06/21 14:34 Urine pH 5.0 (5.0-7.0) 03/06/21 14:34 Ur Specific [place] 1.014 (1.003-1.030) 03/06/21 14:34 Urine Protein 30 mg/dl mg/dL (Negative) 03/06/21 14:34 Urine Glucose (UA) Neg mg/dL (Negative) 03/06/21 14:34 Urine Ketones Neg mg/dL (Negative) 03/06/21 14:34 Urine Blood Sm (Negative) 03/06/21 14:34 Urine Nitrite Neg (Negative) 03/06/21 14:34 Urine Bilirubin Neg (Negative) 03/06/21 14:34 Urine Urobilinogen 4.0 mg/dL (<2.0) 03/06/21 14:34 Ur Leukocyte Esterase Neg (Negative) 03/06/21 14:34 Urine WBC (Auto) 103.0 /HPF (0.0-6.0) H 03/06/21 14:34 Urine RBC (Auto) 105.0 /HPF (0.0-6.0) 03/06/21 14:34 U Epithel Cells (Auto) 5.0 /HPF (0-13.0) 03/06/21 14:34 Urine Bacteria (Auto) 2+ /HPF (Negative) 03/06/21 14:34 Hyaline Casts 5 /LPF 03/06/21 14:34 Urine Mucus 1+ /HPF 03/06/21 14:34 Urine Yeast (Budding) Few /HPF 03/01/21 21:40 Urine Sperm 3+ /HPF ([employer]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) 03/06/21 14:34 Nasal Screen MRSA (PCR) Positive (Negative) 03/02/21 05:00 Salicylates < 0.3 mg/dL (2.8-20.0) L 03/01/21 19:21 Urine Opiates Screen Positive 03/01/21 21:40 Urine Methadone Screen Negative 03/01/21 21:40 Acetaminophen 5.0 ug/mL (10.0-30.0) L 03/01/21 19:21 Ur Barbiturates Screen Negative 03/01/21 21:40 Ur Phencyclidine Scrn Negative 03/01/21 21:40 Ur Amphetamines Screen Negative 03/01/21 21:40 U Benzodiazepines Scrn Negative 03/01/21 21:40 Urine Cocaine Screen Negative 03/01/21 21:40 U Marijuana (THC) Screen Negative 03/01/21 21:40 Drugs of Abuse Note Disclamer 03/01/21 21:40 KARLA Screen Negative (Negative) 03/03/21 04:06 Coronavirus (PCR) Positive (Negative) A 03/05/21 Unknown Blood Type O POSITIVE 03/01/21 19:21 Antibody Screen Negative 03/01/21 19:21 Microbiology: Microbiology 03/06/21 13:47 Peripheral/Venous Blood Culture - Preliminary NO GROWTH AFTER 4 DAYS 03/06/21 13:33 Peripheral/Venous Blood Culture - Preliminary NO GROWTH AFTER 4 DAYS Vilchsi/IV: Voiding Method Incontinent Active Medications - Current Medications Current Medications: Generic Name Dose Route Start Last Admin Trade Name Freq PRN Reason Stop Dose Admin Acetaminophen 650 mg 03/06/21 10:00 03/06/21 12:33 Acetaminophen 325 Mg/10.15 Ml Oral Liqd Unit Dose FEEDTUBE 650 mg Q6H PRN Administration Pain MILD(1-3)/Fever >100.5/VALDES Albuterol 2.5 mg 03/02/21 15:45 Albuterol 2.5 Mg/3 Ml Nebu IH Q4H PRN Shortness Of Breath Lipase/Protease/Amylase 1 each 03/03/21 10:53 Lipase 10,500/Protease 25,000/Amylase 43,750 (Units) Dr Gutierrez FEEDTUBE PRN PRN For Clogged Feeding Tube Ascorbic Acid 500 mg 03/06/21 22:00 03/10/21 10:01 Ascorbic Acid 500 Mg Tab PO 500 mg BID KYLE Administration Aspirin 81 mg 03/04/21 10:00 03/10/21 10:01 Aspirin 81 Mg Tab Chew PO 81 mg QDAY KYLE Administration Cholecalciferol 1,000 unit 03/07/21 10:00 03/10/21 10:03 Cholecalciferol (Vit D3) 1000 Unit (25 Mcg) Tab PO 1,000 unit QDAY KYLE Administration Dexamethasone 10 mg 03/07/21 12:00 03/10/21 11:06 Dexamethasone 4 Mg/Ml Vial IV 03/15/21 12:01 10 mg Q24H KLYE Administration Dextrose 50 ml 03/02/21 11:38 Dextrose 50% In Water (25gm) 50 Ml Syringe IV Q30MIN PRN Hypoglycemia Protocol Enoxaparin Sodium 130 mg 03/09/21 11:00 03/10/21 11:02 Enoxaparin 150 Mg/1 Ml Inj SUB-Q 130 mg Q12HR KYLE Administration Protocol Famotidine 20 mg 03/04/21 10:00 03/10/21 10:04 Famotidine 20 Mg Tab PO 20 mg BID KYLE Administration Hydralazine HCl 10 mg 03/09/21 08:21 03/09/21 09:51 Hydralazine 20 Mg/1 Ml Inj IV 10 mg Q4H PRN Administration Hypertension Hydrophilic Ointment 1 applic 03/02/21 15:42 Lip Therapy Vaseline TP Q2H PRN Dry Lips Fentanyl Citrate 2,000 mcg in 100 mls @ 6.55 mls/hr 03/01/21 21:30 03/10/21 09:00 Fentanyl Drip Premix IV 0 mcg/kg/hr TITR KYLE 0 mls/hr Titration Protocol 1 MCG/KG/HR REMDESIVIR 100 mg/ Sodium 250 mls @ 500 mls/hr 03/07/21 21:00 03/09/21 22:00 Chloride IV 03/10/21 21:29 500 mls/hr Q24HR@2100 KYLE Administration Sodium Chloride 1,000 mls @ 1 mls/hr 03/06/21 18:11 Nacl 0.9% 500 Ml IV DIRECT PRN ARTERIAL LINE FLUSH Insulin Human Regular 0 units 03/10/21 18:00 Insulin Regular, Human 100 Units/1 Ml SUB-Q Q6HR [facility] Protocol Labetalol HCl 100 mg 03/09/21 12:00 03/10/21 10:02 Labetalol 100 Mg Tab PO 100 mg BID KYLE Administration Magnesium Hydroxide 30 ml 03/02/21 00:18 Magnesium Hydroxide (Mom) Oral Liqd Udc PO Q4H PRN Constipation Multi-Ingred Cream/Lotion/Oil/Oint 1 applic 03/02/21 15:42 Mineral Oil/Petrolatum, White Ophth Oint 3.5 Gm OU Q4HR PRN Dry Eye(s) Multivitamins/Minerals 1 each 03/03/21 22:00 03/10/21 10:16 Calcium Carb/Vit D3/Minerals 600 Mg/800 Units Tab PO 1 each BID KYLE Administration Senna/Docusate Sodium 1 tab 03/02/21 22:00 03/10/21 10:01 Sennosides/Docusate Sodium 8.6/50 Mg Tab FEEDTUBE 1 tab BID KYLE Administration Simple Syrup 15 ml 03/03/21 10:53 Simple Syrup 15 Ml FEEDTUBE PRN PRN Hypoglycemia Simple Syrup 30 ml 03/03/21 10:53 Simple Syrup 15 Ml FEEDTUBE PRN PRN Hypoglycemia Sodium Bicarbonate 325 mg 03/03/21 10:53 Sodium Bicarbonate 325 Mg Tab FEEDTUBE PRN PRN For Clogged Feeding Tube Sodium Chloride 10 ml 03/02/21 10:00 03/10/21 10:04 Sodium Chloride 0.9% 10 Ml Flush Syringe IV 10 ml BID KYLE Administration Sodium Chloride 10 ml 03/02/21 00:18 Sodium Chloride 0.9% 10 Ml Flush Syringe IV PRN PRN LINE FLUSH Sodium Chloride 50 ml 03/06/21 16:00 03/09/21 22:11 Sodium Chloride 0.9% 50 Ml Ivpb IV 03/10/21 21:01 50 ml Q24HR@2100 KYLE Administration Zinc Sulfate 220 mg 03/06/21 16:00 03/10/21 10:03 Zinc Sulfate 220 Mg Cap PO 220 mg BID KYLE Administration Nutrition/Malnutrition Assess - Dietary Evaluation Nutrition/Malnutrition Findings: Nutrition Notes Start: 03/02/21 10:10 Freq: Status: Active Protocol: Document 03/07/21 11:42 (Rec: 03/07/21 11:48 [email or web address]) Nutrition Notes Initial or Follow up Reassessment Current Diagnosis Acute Kidney Injury,COPD, Diabetes,Sepsis,Hypertension, Heart Failure,Respiratory Failure Other Pertinent Diagnosis pneu, AMS Current Diet Glucerna 1.2 at 65 ml/hr; Flush of 100 ml q4h Labs/Tests Na 136 BG 210 Pertinent Medications reviewed Height 5 ft 10 in Weight 131 kg [place] Body Weight (kg) 75.45 BMI 41.4 Weight Status Morbidly Obese Subjective/Other Information F/u for TF tolerance. Residuals over 300 ml yesterday. TF at 10 ml/hr and RN will increase as ppt tolerates. Will follow for tolerance. Percent of energy/protein needs met: 14%/7% Burn Absent Trauma Absent Skin Integrity/Comment 2+ non-pitting edema Current % PO Negligible Minimum of two criteria No Fluid Accumulation Mild (non-severe) #1 Nutrition Diagnosis Inadequate oral intake Diagnosis Progress(for reassessment Continues documentation) Is patient on ventilator? Yes Is Patient Ambulatory and/or Out of Bed No REE-([facility]-confined to bed) 2614.728 Kcal/Kg value to use for calculation 14 Approximate Energy Requirements Using 1834 kcal/Kg Calculation Used for Recommendations Kcal/kg Additional Notes Protein: up to 2.5g/kg IBW (< or = to 189g) Fluid: 1 ml/kcal or per MD Nutrition Intervention Change Diet Order: Continue TF as tolerated Nutrition Support: Glucerna 1.2 at 65 ml/hr Flush 100 ml q4h or per MD Kcal 1,872 Protein (gm) 94 Carbohydrates (gm) 179 Fat (gm) 94 Fluid (mL) 1,256 Goal #1 Meet at least 75% of kcal needs and protein needs as best as possible via TF Goal #2 TF tolerance Anticipated Discharge Needs: Unable to determine at this time Follow-Up By: 03/11/21 Additional Comments FU for TF at goal and tolerance
--- NOTE | 2021-03-10 12:57 | Progress Note ---
Assessment and Plan Acute hypoxemic respiratory failure COVID pneumonia/ARDS NSTEMI Acute kidney injury Severe sepsis Bilateral pneumonia H/O congestive heart failure Diabetes type 2 Elevated serum transaminases Anemia that is microcytic Place on SBT Psupp of 6, get weaning parameters in an hour. If acceptable will liberate from MVS. Stop Fentanyl infusion for SBT Give another dose of Furosemide 40mg x1, still overall positive balance since admission Stop tube feedings in anticipation of extubation Stop Lantus insulin therapy once extubated, CUTTER GAS to eval and treat post extubation -continue to titrate supplemental oxygen to keep SpO2 89-92% - VAP bundle addressed, aspiration precautions HOB >40 - continue lung protective strategies - continue bronchodilators with pulmonary hygiene per RT -monitor hemodynamics closely, renal function and electrolytes while on intermittent diuretic therapy - sedation prn for target RASS 0 to -1 - continue to avoid benzodiazepines, reduce the possibility of delirium - complete Antibiotics per ID recs, de-escalate based on clinical response and culture data. - Maintenance of sleep-wake cycle, avoid delirium - continue enteric nutritional support at goal rate as tolerated - Stress ulcer prophylaxis-Famotidine - VTE prophylaxis- he is on therapeutic heparin infusion. Plan to change to therapeutic Enoxaparin, since his renal function is normal. This will limit the amount of volume Monitro hemoglobin and blood pressure closely - PT/OT/ROM exercises - continue mobility , off loading and frequent turning per facility protocol for pressure ulcer prevention - continue other care per attending / other consultants COVID SPECIFIC INTERVENTIONS - continue contact and airborne isolation - Remdesivir as per ID/Pulmonary developed protocols - systemic steroids for severe COVID-19 infection - continue to trend and monitor inflammatory markers per facility protocol - therapeutic anticoagulation per system Protocol based on d-dimer and clinical considerations (On IV Heparin for lower extremity DVT) -CRP is elevated but not a candidate for Tociluzimab- he has been on MVS CONDITION: CRITICAL PROGNOSIS: GUARDED CODE STATUS: FULL CODE The high probability of a clinically significant, sudden or life-threatening deterioration of the [respiratory, cardiovascular & neurologic] system(s) required my full and direct attention, intervention and personal management. The aggregate critical care time was [35] minutes without overlap. Time includes spent on; [x] Data Review and interpretation [x] Patient assessment and monitoring of vital signs [x] Documentation [x] Medication orders and management Subjective Date of service: 03/10/21 Principal diagnosis: Ac hypoxemic resp failure; NSTEMI; ALPHONSO; Sepsis; PNA; CHF; DM II; AMS Interval history: Patient is seen today for: Acute hypoxemic respiratory failure; COVID infection; NSTEMI; ALPHONSO; Severe sepsis; Pneumonia; CHF; DM II; Acute encephalopathy Seen and examined at bedside; 24hour events reviewed; nursing and respiratory care staff consulted; no adverse overnight events reported to me; resting peacefully in bed;orally intubated on MVS, awake and alert, interactive PEEP +6/FIO2 45%. On Fentanyl at 2mcg, Heparin infusion No reported or documented fevers, no vomiting, no diarrhea. HAFSA PICC. Objective Vital Signs - 12hr 03/10/21 03/10/21 03/10/21 01:00 02:00 03:00 Temperature Pulse Rate 78 79 82 Pulse Rate [ From Monitor] Respiratory 12 18 18 Rate Blood Pressure 145/79 142/75 136/70 O2 Sat by Pulse 92 90 88 Oximetry 03/10/21 03/10/21 03/10/21 03:47 04:00 04:20 Temperature 98.9 F Pulse Rate 83 86 Pulse Rate [ From Monitor] Respiratory 12 Rate Blood Pressure 125/61 125/61 O2 Sat by Pulse 88 93 Oximetry 03/10/21 03/10/21 03/10/21 05:00 06:00 07:00 Temperature Pulse Rate 85 95 H 89 Pulse Rate [ From Monitor] Respiratory 16 12 18 Rate Blood Pressure 148/79 174/107 174/107 O2 Sat by Pulse 89 92 95 Oximetry 03/10/21 03/10/21 03/10/21 08:00 08:30 09:00 Temperature Pulse Rate 98 H 94 H 84 Pulse Rate [ 97 H From Monitor] Respiratory 17 11 L 15 Rate Blood Pressure 174/107 190/98 174/107 O2 Sat by Pulse 95 97 96 Oximetry 03/10/21 03/10/21 03/10/21 10:00 10:02 11:00 Temperature Pulse Rate 83 93 H 90 Pulse Rate [ From Monitor] Respiratory 13 12 Rate Blood Pressure 174/107 160/80 174/107 O2 Sat by Pulse 94 93 Oximetry 03/10/21 12:09 Temperature Pulse Rate 92 H Pulse Rate [ From Monitor] Respiratory 11 L Rate Blood Pressure 154/78 O2 Sat by Pulse 95 Oximetry Constitutional: no acute distress, alert, other (middle aged obese male, no patient -ventilator dyssynchrony) Eyes: non-icteric ENT: oropharynx moist, other (ETT 24 cm CLINT) Neck: supple, no lymphadenopathy, no JVD, other (large circumference) Effort: mildly labored Ascultation: Bilateral: diminished breath sounds, rhonchi Percussion: Bilateral: not dull Cardiovascular: regular rate and rhythm, other (S1,S2) Gastrointestinal: normoactive bowel sounds, soft, non-tender, non-distended (pr otuberant) Integumentary: normal Extremities: no cyanosis, pulses normal, no ischemia or petechiae, edema (trace) Neurologic: normal mental status, non-focal exam (grossly), pupils equal and round, CN II-XII normal, motor strength normal and Psychiatric: mood appropriate, affect normal CBC and BMP: 03/11/21 06:54 03/11/21 06:54 ABG, PT/INR, D-dimer: ABG ABG pH 7.456 (7.320-7.450) H 03/09/21 04:00 POC ABG pCO2 38.9 mmHg (32.0-48.0) 03/09/21 04:00 POC ABG pO2 89.6 mmHg (83-108) 03/09/21 04:00 POC ABG HCO3 26.8 03/09/21 04:00 ABG O2 Saturation 96.8 (0-100) 03/09/21 04:00 PT/INR, D-dimer PT 15.6 Sec. (12.2-14.9) H 03/04/21 10:17 INR 1.18 (0.87-1.13) H 03/04/21 10:17 D-Dimer 249.59 ng/mlDDU (0-234) H 03/09/21 08:00 Abnormal lab findings: Abnormal Labs 03/01/21 03/01/21 03/01/21 19:15 19:21 19:21 WBC 12.7 H RBC 2.77 L Hgb 9.1 L Hct 27.7 L MCV 100 H MCH 33 H RDW 18.0 H Seg Neutrophils % Monocytes % (Manual) 17.0 H Seg Neutrophils # Monocytes # (Manual) 2.2 H PT INR D-Dimer Heparin Anti-Xa Level ABG pH POC ABG pCO2 POC ABG pO2 64.9 L ABG Hemoglobin 9.3 L ABG Oxyhemoglobin 93.0 L ABG Sodium 133.8 L ABG Potassium ABG Chloride 97.0 L ABG Glucose 191 H Carboxyhemoglobin Sodium Chloride Carbon Dioxide BUN Creatinine Glucose POC Glucose Lactic Acid Calcium Phosphorus Magnesium Ferritin Total Bilirubin Direct Bilirubin AST ALT Alkaline Phosphatase Ammonia Lactate Dehydrogenase Troponin T 0.493 H* C-Reactive Protein Total Protein Albumin Triglycerides 400 H Cholesterol 232 H HDL Cholesterol 22 L Lipase Arterial Blood Glucose 191 H Arterial Blood Ionized Calcium 4.4 L Urine WBC (Auto) Salicylates Acetaminophen Coronavirus (PCR) 03/01/21 03/01/21 03/01/21 19:21 19:21 19:21 WBC RBC Hgb Hct MCV MCH RDW Seg Neutrophils % Monocytes % (Manual) Seg Neutrophils # Monocytes # (Manual) PT 16.6 H INR 1.28 H D-Dimer Heparin Anti-Xa Level ABG pH POC ABG pCO2 POC ABG pO2 ABG Hemoglobin ABG Oxyhemoglobin ABG Sodium ABG Potassium ABG Chloride ABG Glucose Carboxyhemoglobin Sodium 132 L Chloride 92.2 L Carbon Dioxide BUN 43 H Creatinine 2.4 H Glucose 190 H POC Glucose Lactic Acid 2.90 H* Calcium Phosphorus Magnesium Ferritin Total Bilirubin 1.60 H Direct Bilirubin 1.2 H AST 275 H ALT 156 H Alkaline Phosphatase 282 H Ammonia Lactate Dehydrogenase Troponin T C-Reactive Protein Total Protein 5.8 L Albumin 2.6 L Triglycerides Cholesterol HDL Cholesterol Lipase 120 H Arterial Blood Glucose Arterial Blood Ionized Calcium Urine WBC (Auto) Salicylates Acetaminophen Coronavirus (PCR) 03/01/21 03/01/21 03/01/21 19:21 19:21 19:21 WBC RBC Hgb Hct MCV MCH RDW Seg Neutrophils % Monocytes % (Manual) Seg Neutrophils # Monocytes # (Manual) PT INR D-Dimer Heparin Anti-Xa Level ABG pH POC ABG pCO2 POC ABG pO2 ABG Hemoglobin ABG Oxyhemoglobin ABG Sodium ABG Potassium ABG Chloride ABG Glucose Carboxyhemoglobin Sodium Chloride Carbon Dioxide BUN Creatinine Glucose POC Glucose Lactic Acid Calcium Phosphorus Magnesium Ferritin Total Bilirubin Direct Bilirubin AST ALT Alkaline Phosphatase Ammonia 71.0 H Lactate Dehydrogenase Troponin T C-Reactive Protein Total Protein Albumin Triglycerides Cholesterol HDL Cholesterol Lipase Arterial Blood Glucose Arterial Blood Ionized Calcium Urine WBC (Auto) Salicylates < 0.3 L Acetaminophen 5.0 L Coronavirus (PCR) 0703/01/21 03/02/21 20:55 20:55 00:01 WBC RBC Hgb Hct MCV MCH RDW Seg Neutrophils % Monocytes % (Manual) Seg Neutrophils # Monocytes # (Manual) PT INR D-Dimer Heparin Anti-Xa Level ABG pH 7.234 L POC ABG pCO2 POC ABG pO2 240.5 H ABG Hemoglobin 9.3 L ABG Oxyhemoglobin 99.1 H ABG Sodium 135.3 L ABG Potassium ABG Chloride ABG Glucose 286 H Carboxyhemoglobin 0.3 L Sodium Chloride Carbon Dioxide BUN Creatinine Glucose POC Glucose Lactic Acid 4.30 H* Calcium Phosphorus Magnesium Ferritin Total Bilirubin Direct Bilirubin AST ALT Alkaline Phosphatase Ammonia Lactate Dehydrogenase Troponin T 0.484 H* C-Reactive Protein Total Protein Albumin Triglycerides Cholesterol HDL Cholesterol Lipase Arterial Blood Glucose 286 H Arterial Blood Ionized Calcium Urine WBC (Auto) Salicylates Acetaminophen Coronavirus (PCR) 03/02/21 03/02/21 03/02/21 03:42 05:23 06:35 WBC RBC Hgb Hct MCV MCH RDW Seg Neutrophils % Monocytes % (Manual) Seg Neutrophils # Monocytes # (Manual) PT INR D-Dimer Heparin Anti-Xa Level ABG pH 7.225 L POC ABG pCO2 POC ABG pO2 181.8 H ABG Hemoglobin 9.4 L ABG Oxyhemoglobin 98.6 H ABG Sodium 132.1 L ABG Potassium 5.0 H ABG Chloride ABG Glucose 454 H Carboxyhemoglobin 0.3 L Sodium Chloride Carbon Dioxide BUN Creatinine Glucose POC Glucose 410 H Lactic Acid 7.50 H* Calcium Phosphorus Magnesium Ferritin Total Bilirubin Direct Bilirubin AST ALT Alkaline Phosphatase Ammonia Lactate Dehydrogenase Troponin T C-Reactive Protein Total Protein Albumin Triglycerides Cholesterol HDL Cholesterol Lipase Arterial Blood Glucose 454 H Arterial Blood Ionized Calcium 4.2 L Urine WBC (Auto) Salicylates Acetaminophen Coronavirus (PCR) 03/02/21 03/02/21 03/02/21 10:48 10:48 10:48 WBC RBC Hgb Hct MCV MCH RDW Seg Neutrophils % Monocytes % (Manual) Seg Neutrophils # Monocytes # (Manual) PT INR D-Dimer Heparin Anti-Xa Level ABG pH POC ABG pCO2 POC ABG pO2 ABG Hemoglobin ABG Oxyhemoglobin ABG Sodium ABG Potassium ABG Chloride ABG Glucose Carboxyhemoglobin Sodium 132 L Chloride 93.3 L Carbon Dioxide 20 L BUN 46 H Creatinine 1.9 H Glucose 503 H* POC Glucose Lactic Acid 3.40 H* Calcium 7.9 L Phosphorus 5.80 H Magnesium Ferritin Total Bilirubin Direct Bilirubin AST ALT Alkaline Phosphatase Ammonia Lactate Dehydrogenase Troponin T C-Reactive Protein Total Protein Albumin Triglycerides Cholesterol HDL Cholesterol Lipase Arterial Blood Glucose Arterial Blood Ionized Calcium Urine WBC (Auto) Salicylates Acetaminophen Coronavirus (PCR) 03/02/21 03/02/21 03/02/21 11:23 11:38 15:33 WBC RBC Hgb Hct MCV MCH RDW Seg Neutrophils % Monocytes % (Manual) Seg Neutrophils # Monocytes # (Manual) PT INR D-Dimer Heparin Anti-Xa Level ABG pH 7.318 L POC ABG pCO2 POC ABG pO2 ABG Hemoglobin 9.2 L ABG Oxyhemoglobin ABG Sodium 133.2 L ABG Potassium ABG Chloride ABG Glucose 504 H Carboxyhemoglobin 0.3 L Sodium Chloride Carbon Dioxide BUN Creatinine Glucose POC Glucose 468 H 445 H Lactic Acid Calcium Phosphorus Magnesium Ferritin Total Bilirubin Direct Bilirubin AST ALT Alkaline Phosphatase Ammonia Lactate Dehydrogenase Troponin T C-Reactive Protein Total Protein Albumin Triglycerides Cholesterol HDL Cholesterol Lipase Arterial Blood Glucose 504 H Arterial Blood Ionized Calcium 4.2 L Urine WBC (Auto) Salicylates Acetaminophen Coronavirus (PCR) 03/02/21 03/02/21 03/02/21 16:28 16:28 16:28 WBC RBC Hgb 8.8 L Hct 26.0 L MCV MCH RDW Seg Neutrophils % Monocytes % (Manual) Seg Neutrophils # Monocytes # (Manual) PT 15.2 H INR 1.14 H D-Dimer Heparin Anti-Xa Level ABG pH POC ABG pCO2 POC ABG pO2 ABG Hemoglobin ABG Oxyhemoglobin ABG Sodium ABG Potassium ABG Chloride ABG Glucose Carboxyhemoglobin Sodium 135 L Chloride 93.8 L Carbon Dioxide BUN 48 H Creatinine 1.8 H Glucose 454 H POC Glucose Lactic Acid Calcium 7.6 L Phosphorus Magnesium Ferritin Total Bilirubin Direct Bilirubin AST ALT Alkaline Phosphatase Ammonia Lactate Dehydrogenase Troponin T C-Reactive Protein Total Protein Albumin Triglycerides Cholesterol HDL Cholesterol Lipase Arterial Blood Glucose Arterial Blood Ionized Calcium Urine WBC (Auto) Salicylates Acetaminophen Coronavirus (PCR) 03/02/21 03/02/21 03/02/21 17:39 18:52 20:09 WBC RBC Hgb Hct MCV MCH RDW Seg Neutrophils % Monocytes % (Manual) Seg Neutrophils # Monocytes # (Manual) PT INR D-Dimer Heparin Anti-Xa Level ABG pH POC ABG pCO2 POC ABG pO2 ABG Hemoglobin ABG Oxyhemoglobin ABG Sodium ABG Potassium ABG Chloride ABG Glucose Carboxyhemoglobin Sodium Chloride Carbon Dioxide BUN Creatinine Glucose POC Glucose 404 H 357 H 347 H Lactic Acid Calcium Phosphorus Magnesium Ferritin Total Bilirubin Direct Bilirubin AST ALT Alkaline Phosphatase Ammonia Lactate Dehydrogenase Troponin T C-Reactive Protein Total Protein Albumin Triglycerides Cholesterol HDL Cholesterol Lipase Arterial Blood Glucose Arterial Blood Ionized Calcium Urine WBC (Auto) Salicylates Acetaminophen Coronavirus (PCR) 03/02/21 03/02/21 03/02/21 21:03 22:00 22:55 WBC RBC Hgb Hct MCV MCH RDW Seg Neutrophils % Monocytes % (Manual) Seg Neutrophils # Monocytes # (Manual) PT INR D-Dimer Heparin Anti-Xa Level ABG pH POC ABG pCO2 POC ABG pO2 ABG Hemoglobin ABG Oxyhemoglobin ABG Sodium ABG Potassium ABG Chloride ABG Glucose Carboxyhemoglobin Sodium Chloride Carbon Dioxide BUN Creatinine Glucose POC Glucose 307 H 270 H 237 H Lactic Acid Calcium Phosphorus Magnesium Ferritin Total Bilirubin Direct Bilirubin AST ALT Alkaline Phosphatase Ammonia Lactate Dehydrogenase Troponin T C-Reactive Protein Total Protein Albumin Triglycerides Cholesterol HDL Cholesterol Lipase Arterial Blood Glucose Arterial Blood Ionized Calcium Urine WBC (Auto) Salicylates Acetaminophen Coronavirus (PCR) 03/03/21 03/03/21 03/03/21 00:02 00:57 02:01 WBC RBC Hgb Hct MCV MCH RDW Seg Neutrophils % Monocytes % (Manual) Seg Neutrophils # Monocytes # (Manual) PT INR D-Dimer Heparin Anti-Xa Level ABG pH POC ABG pCO2 POC ABG pO2 ABG Hemoglobin ABG Oxyhemoglobin ABG Sodium ABG Potassium ABG Chloride ABG Glucose Carboxyhemoglobin Sodium Chloride Carbon Dioxide BUN Creatinine Glucose POC Glucose 252 H 214 H 261 H Lactic Acid Calcium Phosphorus Magnesium Ferritin Total Bilirubin Direct Bilirubin AST ALT Alkaline Phosphatase Ammonia Lactate Dehydrogenase Troponin T C-Reactive Protein Total Protein Albumin Triglycerides Cholesterol HDL Cholesterol Lipase Arterial Blood Glucose Arterial Blood Ionized Calcium Urine WBC (Auto) Salicylates Acetaminophen Coronavirus (PCR) 03/03/21 03/03/21 03/03/21 03:07 03:10 03:50 WBC 13.7 H RBC 2.69 L Hgb 8.7 L Hct 26.9 L MCV 100 H MCH RDW 18.5 H Seg Neutrophils % 79.0 H Monocytes % (Manual) Seg Neutrophils # 10.8 H Monocytes # (Manual) PT INR D-Dimer Heparin Anti-Xa Level ABG pH POC ABG pCO2 50.9 H POC ABG pO2 81.9 L ABG Hemoglobin 8.7 L ABG Oxyhemoglobin ABG Sodium 134.2 L ABG Potassium ABG Chloride 96.0 L ABG Glucose 279 H Carboxyhemoglobin 0.4 L Sodium Chloride Carbon Dioxide BUN Creatinine Glucose POC Glucose 276 H Lactic Acid Calcium Phosphorus Magnesium Ferritin Total Bilirubin Direct Bilirubin AST ALT Alkaline Phosphatase Ammonia Lactate Dehydrogenase Troponin T C-Reactive Protein Total Protein Albumin Triglycerides Cholesterol HDL Cholesterol Lipase Arterial Blood Glucose 279 H Arterial Blood Ionized Calcium 3.9 L Urine WBC (Auto) Salicylates Acetaminophen Coronavirus (PCR) 03/03/21 03/03/21 03/03/21 03:50 04:06 04:32 WBC RBC Hgb Hct MCV MCH RDW Seg Neutrophils % Monocytes % (Manual) Seg Neutrophils # Monocytes # (Manual) PT INR D-Dimer Heparin Anti-Xa Level ABG pH POC ABG pCO2 POC ABG pO2 ABG Hemoglobin ABG Oxyhemoglobin ABG Sodium ABG Potassium ABG Chloride ABG Glucose Carboxyhemoglobin Sodium Chloride 94.2 L Carbon Dioxide BUN 45 H Creatinine 1.9 H Glucose 261 H POC Glucose 256 H Lactic Acid Calcium 7.3 L Phosphorus Magnesium Ferritin Total Bilirubin Direct Bilirubin 0.9 H AST 208 H ALT 148 H Alkaline Phosphatase 251 H Ammonia Lactate Dehydrogenase Troponin T C-Reactive Protein Total Protein 5.5 L Albumin 2.4 L Triglycerides Cholesterol HDL Cholesterol Lipase Arterial Blood Glucose Arterial Blood Ionized Calcium Urine WBC (Auto) Salicylates Acetaminophen Coronavirus (PCR) 03/03/21 03/03/21 03/03/21 05:23 06:06 07:07 WBC RBC Hgb Hct MCV MCH RDW Seg Neutrophils % Monocytes % (Manual) Seg Neutrophils # Monocytes # (Manual) PT INR D-Dimer Heparin Anti-Xa Level ABG pH POC ABG pCO2 POC ABG pO2 ABG Hemoglobin ABG Oxyhemoglobin ABG Sodium ABG Potassium ABG Chloride ABG Glucose Carboxyhemoglobin Sodium Chloride Carbon Dioxide BUN Creatinine Glucose POC Glucose 214 H 249 H 237 H Lactic Acid Calcium Phosphorus Magnesium Ferritin Total Bilirubin Direct Bilirubin AST ALT Alkaline Phosphatase Ammonia Lactate Dehydrogenase Troponin T C-Reactive Protein Total Protein Albumin Triglycerides Cholesterol HDL Cholesterol Lipase Arterial Blood Glucose Arterial Blood Ionized Calcium Urine WBC (Auto) Salicylates Acetaminophen Coronavirus (PCR) 03/03/21 03/03/21 03/03/21 07:58 08:58 09:52 WBC RBC Hgb Hct MCV MCH RDW Seg Neutrophils % Monocytes % (Manual) Seg Neutrophils # Monocytes # (Manual) PT INR D-Dimer Heparin Anti-Xa Level ABG pH POC ABG pCO2 POC ABG pO2 ABG Hemoglobin ABG Oxyhemoglobin ABG Sodium ABG Potassium ABG Chloride ABG Glucose Carboxyhemoglobin Sodium Chloride Carbon Dioxide BUN Creatinine Glucose POC Glucose 227 H 215 H 207 H Lactic Acid Calcium Phosphorus Magnesium Ferritin Total Bilirubin Direct Bilirubin AST ALT Alkaline Phosphatase Ammonia Lactate Dehydrogenase Troponin T C-Reactive Protein Total Protein Albumin Triglycerides Cholesterol HDL Cholesterol Lipase Arterial Blood Glucose Arterial Blood Ionized Calcium Urine WBC (Auto) Salicylates Acetaminophen Coronavirus (PCR) 03/03/21 03/03/21 03/03/21 10:55 11:44 12:53 WBC RBC Hgb Hct MCV MCH RDW Seg Neutrophils % Monocytes % (Manual) Seg Neutrophils # Monocytes # (Manual) PT INR D-Dimer Heparin Anti-Xa Level ABG pH POC ABG pCO2 POC ABG pO2 ABG Hemoglobin ABG Oxyhemoglobin ABG Sodium ABG Potassium ABG Chloride ABG Glucose Carboxyhemoglobin Sodium Chloride Carbon Dioxide BUN Creatinine Glucose POC Glucose 198 H 210 H 203 H Lactic Acid Calcium Phosphorus Magnesium Ferritin Total Bilirubin Direct Bilirubin AST ALT Alkaline Phosphatase Ammonia Lactate Dehydrogenase Troponin T C-Reactive Protein Total Protein Albumin Triglycerides Cholesterol HDL Cholesterol Lipase Arterial Blood Glucose Arterial Blood Ionized Calcium Urine WBC (Auto) Salicylates Acetaminophen Coronavirus (PCR) 03/03/21 03/03/21 03/03/21 13:53 14:58 15:23 WBC RBC Hgb Hct MCV MCH RDW Seg Neutrophils % Monocytes % (Manual) Seg Neutrophils # Monocytes # (Manual) PT INR D-Dimer Heparin Anti-Xa Level ABG pH POC ABG pCO2 POC ABG pO2 ABG Hemoglobin ABG Oxyhemoglobin ABG Sodium ABG Potassium ABG Chloride ABG Glucose Carboxyhemoglobin Sodium Chloride Carbon Dioxide BUN Creatinine Glucose POC Glucose 210 H 187 H Lactic Acid 3.10 H* Calcium Phosphorus Magnesium Ferritin Total Bilirubin Direct Bilirubin AST ALT Alkaline Phosphatase Ammonia Lactate Dehydrogenase Troponin T C-Reactive Protein Total Protein Albumin Triglycerides Cholesterol HDL Cholesterol Lipase Arterial Blood Glucose Arterial Blood Ionized Calcium Urine WBC (Auto) Salicylates Acetaminophen Coronavirus (PCR) 03/03/21 03/03/21 03/03/21 15:51 16:25 16:53 WBC RBC Hgb Hct MCV MCH RDW Seg Neutrophils % Monocytes % (Manual) Seg Neutrophils # Monocytes # (Manual) PT INR D-Dimer Heparin Anti-Xa Level ABG pH POC ABG pCO2 POC ABG pO2 ABG Hemoglobin ABG Oxyhemoglobin ABG Sodium ABG Potassium ABG Chloride ABG Glucose Carboxyhemoglobin Sodium Chloride 91.0 L Carbon Dioxide 34 H BUN 47 H Creatinine 1.7 H Glucose 190 H POC Glucose 182 H 179 H Lactic Acid Calcium 7.6 L Phosphorus Magnesium Ferritin Total Bilirubin Direct Bilirubin AST ALT Alkaline Phosphatase Ammonia Lactate Dehydrogenase Troponin T C-Reactive Protein Total Protein Albumin Triglycerides Cholesterol HDL Cholesterol Lipase Arterial Blood Glucose Arterial Blood Ionized Calcium Urine WBC (Auto) Salicylates Acetaminophen Coronavirus (PCR) 03/03/21 03/03/21 03/03/21 17:55 19:37 20:57 WBC RBC Hgb Hct MCV MCH RDW Seg Neutrophils % Monocytes % (Manual) Seg Neutrophils # Monocytes # (Manual) PT INR D-Dimer Heparin Anti-Xa Level ABG pH POC ABG pCO2 POC ABG pO2 ABG Hemoglobin ABG Oxyhemoglobin ABG Sodium ABG Potassium ABG Chloride ABG Glucose Carboxyhemoglobin Sodium Chloride Carbon Dioxide BUN Creatinine Glucose POC Glucose 185 H 174 H 175 H Lactic Acid Calcium Phosphorus Magnesium Ferritin Total Bilirubin Direct Bilirubin AST ALT Alkaline Phosphatase Ammonia Lactate Dehydrogenase Troponin T C-Reactive Protein Total Protein Albumin Triglycerides Cholesterol HDL Cholesterol Lipase Arterial Blood Glucose Arterial Blood Ionized Calcium Urine WBC (Auto) Salicylates Acetaminophen Coronavirus (PCR) 03/03/21 03/03/21 03/03/21 22:02 22:56 23:10 WBC RBC Hgb Hct MCV MCH RDW Seg Neutrophils % Monocytes % (Manual) Seg Neutrophils # Monocytes # (Manual) PT INR D-Dimer Heparin Anti-Xa Level 0.75 H ABG pH POC ABG pCO2 POC ABG pO2 ABG Hemoglobin ABG Oxyhemoglobin ABG Sodium ABG Potassium ABG Chloride ABG Glucose Carboxyhemoglobin Sodium Chloride Carbon Dioxide BUN Creatinine Glucose POC Glucose 170 H 160 H Lactic Acid Calcium Phosphorus Magnesium Ferritin Total Bilirubin Direct Bilirubin AST ALT Alkaline Phosphatase Ammonia Lactate Dehydrogenase Troponin T C-Reactive Protein Total Protein Albumin Triglycerides Cholesterol HDL Cholesterol Lipase Arterial Blood Glucose Arterial Blood Ionized Calcium Urine WBC (Auto) Salicylates Acetaminophen Coronavirus (PCR) 03/03/21 03/04/21 03/04/21 23:42 00:52 01:55 WBC RBC Hgb Hct MCV MCH RDW Seg Neutrophils % Monocytes % (Manual) Seg Neutrophils # Monocytes # (Manual) PT INR D-Dimer Heparin Anti-Xa Level ABG pH POC ABG pCO2 POC ABG pO2 ABG Hemoglobin ABG Oxyhemoglobin ABG Sodium ABG Potassium ABG Chloride ABG Glucose Carboxyhemoglobin Sodium Chloride Carbon Dioxide BUN Creatinine Glucose POC Glucose 161 H 167 H 119 H Lactic Acid Calcium Phosphorus Magnesium Ferritin Total Bilirubin Direct Bilirubin AST ALT Alkaline Phosphatase Ammonia Lactate Dehydrogenase Troponin T C-Reactive Protein Total Protein Albumin Triglycerides Cholesterol HDL Cholesterol Lipase Arterial Blood Glucose Arterial Blood Ionized Calcium Urine WBC (Auto) Salicylates Acetaminophen Coronavirus (PCR) 03/04/21 03/04/21 03/04/21 02:58 03:47 04:03 WBC RBC Hgb Hct MCV MCH RDW Seg Neutrophils % Monocytes % (Manual) Seg Neutrophils # Monocytes # (Manual) PT INR D-Dimer Heparin Anti-Xa Level ABG pH POC ABG pCO2 57.3 H POC ABG pO2 63.7 L ABG Hemoglobin 8.4 L ABG Oxyhemoglobin 88.6 L ABG Sodium 132.5 L ABG Potassium 3.2 L ABG Chloride 94.0 L ABG Glucose 129 H Carboxyhemoglobin Sodium Chloride Carbon Dioxide BUN Creatinine Glucose POC Glucose 111 H 122 H Lactic Acid Calcium Phosphorus Magnesium Ferritin Total Bilirubin Direct Bilirubin AST ALT Alkaline Phosphatase Ammonia Lactate Dehydrogenase Troponin T C-Reactive Protein Total Protein Albumin Triglycerides Cholesterol HDL Cholesterol Lipase Arterial Blood Glucose 129 H Arterial Blood Ionized Calcium 3.8 L Urine WBC (Auto) Salicylates Acetaminophen Coronavirus (PCR) 03/04/21 03/04/21 03/04/21 05:15 05:26 05:26 WBC RBC Hgb 7.9 L Hct 23.7 L MCV MCH RDW Seg Neutrophils % Monocytes % (Manual) Seg Neutrophils # Monocytes # (Manual) PT INR D-Dimer Heparin Anti-Xa Level ABG pH POC ABG pCO2 POC ABG pO2 ABG Hemoglobin ABG Oxyhemoglobin ABG Sodium ABG Potassium ABG Chloride ABG Glucose Carboxyhemoglobin Sodium Chloride Carbon Dioxide BUN Creatinine Glucose POC Glucose 127 H Lactic Acid Calcium Phosphorus Magnesium Ferritin Total Bilirubin Direct Bilirubin 0.6 H AST 123 H ALT 105 H Alkaline Phosphatase 232 H Ammonia Lactate Dehydrogenase Troponin T C-Reactive Protein Total Protein 4.8 L Albumin 2.2 L Triglycerides Cholesterol HDL Cholesterol Lipase Arterial Blood Glucose Arterial Blood Ionized Calcium Urine WBC (Auto) Salicylates Acetaminophen Coronavirus (PCR) 03/04/21 03/04/21 03/04/21 05:26 06:01 06:53 WBC RBC Hgb Hct MCV MCH RDW Seg Neutrophils % Monocytes % (Manual) Seg Neutrophils # Monocytes # (Manual) PT INR D-Dimer Heparin Anti-Xa Level 0.71 H ABG pH POC ABG pCO2 POC ABG pO2 ABG Hemoglobin ABG Oxyhemoglobin ABG Sodium ABG Potassium ABG Chloride ABG Glucose Carboxyhemoglobin Sodium Chloride Carbon Dioxide BUN Creatinine Glucose POC Glucose 120 H 117 H Lactic Acid Calcium Phosphorus Magnesium Ferritin Total Bilirubin Direct Bilirubin AST ALT Alkaline Phosphatase Ammonia Lactate Dehydrogenase Troponin T C-Reactive Protein Total Protein Albumin Triglycerides Cholesterol HDL Cholesterol Lipase Arterial Blood Glucose Arterial Blood Ionized Calcium Urine WBC (Auto) Salicylates Acetaminophen Coronavirus (PCR) 03/04/21 03/04/21 03/04/21 07:57 10:17 10:17 WBC RBC 2.51 L Hgb 8.3 L Hct 25.3 L MCV 101 H MCH 33 H RDW 18.5 H Seg Neutrophils % Monocytes % (Manual) Seg Neutrophils # Monocytes # (Manual) PT INR D-Dimer Heparin Anti-Xa Level ABG pH POC ABG pCO2 POC ABG pO2 ABG Hemoglobin ABG Oxyhemoglobin ABG Sodium ABG Potassium ABG Chloride ABG Glucose Carboxyhemoglobin Sodium 136 L Chloride 93.1 L Carbon Dioxide 33 H BUN 46 H Creatinine 1.4 H Glucose 151 H POC Glucose 129 H Lactic Acid Calcium 7.5 L Phosphorus Magnesium Ferritin Total Bilirubin Direct Bilirubin AST 126 H ALT 100 H Alkaline Phosphatase 226 H Ammonia Lactate Dehydrogenase Troponin T C-Reactive Protein Total Protein 5.0 L Albumin 2.2 L Triglycerides Cholesterol HDL Cholesterol Lipase Arterial Blood Glucose Arterial Blood Ionized Calcium Urine WBC (Auto) Salicylates Acetaminophen Coronavirus (PCR) 03/04/21 03/04/21 03/04/21 10:17 10:17 11:26 WBC RBC Hgb Hct MCV MCH RDW Seg Neutrophils % Monocytes % (Manual) Seg Neutrophils # Monocytes # (Manual) PT 15.6 H INR 1.18 H D-Dimer Heparin Anti-Xa Level ABG pH POC ABG pCO2 POC ABG pO2 ABG Hemoglobin ABG Oxyhemoglobin ABG Sodium ABG Potassium ABG Chloride ABG Glucose Carboxyhemoglobin Sodium Chloride Carbon Dioxide BUN Creatinine Glucose POC Glucose 167 H Lactic Acid Calcium Phosphorus Magnesium Ferritin Total Bilirubin Direct Bilirubin AST ALT Alkaline Phosphatase Ammonia Lactate Dehydrogenase Troponin T C-Reactive Protein Total Protein Albumin Triglycerides Cholesterol HDL Cholesterol Lipase 78 H Arterial Blood Glucose Arterial Blood Ionized Calcium Urine WBC (Auto) Salicylates Acetaminophen Coronavirus (PCR) 03/04/21 03/04/21 03/04/21 13:04 16:26 17:58 WBC RBC Hgb 7.7 L Hct 23.2 L MCV MCH RDW Seg Neutrophils % Monocytes % (Manual) Seg Neutrophils # Monocytes # (Manual) PT INR D-Dimer Heparin Anti-Xa Level < 0.10 L ABG pH POC ABG pCO2 POC ABG pO2 ABG Hemoglobin ABG Oxyhemoglobin ABG Sodium ABG Potassium ABG Chloride ABG Glucose Carboxyhemoglobin Sodium Chloride Carbon Dioxide BUN Creatinine Glucose POC Glucose 167 H Lactic Acid Calcium Phosphorus Magnesium Ferritin Total Bilirubin Direct Bilirubin AST ALT Alkaline Phosphatase Ammonia Lactate Dehydrogenase Troponin T C-Reactive Protein Total Protein Albumin Triglycerides Cholesterol HDL Cholesterol Lipase Arterial Blood Glucose Arterial Blood Ionized Calcium Urine WBC (Auto) Salicylates Acetaminophen Coronavirus (PCR) 03/04/21 03/05/21 03/05/21 23:47 04:00 05:06 WBC RBC Hgb Hct MCV MCH RDW Seg Neutrophils % Monocytes % (Manual) Seg Neutrophils # Monocytes # (Manual) PT INR D-Dimer Heparin Anti-Xa Level ABG pH POC ABG pCO2 POC ABG pO2 129.1 H ABG Hemoglobin 8.3 L ABG Oxyhemoglobin ABG Sodium 131.4 L ABG Potassium ABG Chloride 95.0 L ABG Glucose 153 H Carboxyhemoglobin Sodium Chloride Carbon Dioxide BUN Creatinine Glucose POC Glucose 153 H 139 H Lactic Acid Calcium Phosphorus Magnesium Ferritin Total Bilirubin Direct Bilirubin AST ALT Alkaline Phosphatase Ammonia Lactate Dehydrogenase Troponin T C-Reactive Protein Total Protein Albumin Triglycerides Cholesterol HDL Cholesterol Lipase Arterial Blood Glucose 153 H Arterial Blood Ionized Calcium Urine WBC (Auto) Salicylates Acetaminophen Coronavirus (PCR) 03/05/21 03/05/21 03/05/21 11:43 13:35 13:35 WBC RBC 2.38 L Hgb 7.8 L Hct 23.8 L MCV 100 H MCH 33 H RDW 18.2 H Seg Neutrophils % Monocytes % (Manual) Seg Neutrophils # Monocytes # (Manual) PT INR D-Dimer Heparin Anti-Xa Level ABG pH POC ABG pCO2 POC ABG pO2 ABG Hemoglobin ABG Oxyhemoglobin ABG Sodium ABG Potassium ABG Chloride ABG Glucose Carboxyhemoglobin Sodium Chloride 94.4 L Carbon Dioxide BUN 49 H Creatinine 1.6 H Glucose 165 H POC Glucose 174 H Lactic Acid Calcium 7.5 L Phosphorus Magnesium Ferritin Total Bilirubin Direct Bilirubin AST ALT Alkaline Phosphatase Ammonia Lactate Dehydrogenase Troponin T C-Reactive Protein Total Protein Albumin Triglycerides Cholesterol HDL Cholesterol Lipase Arterial Blood Glucose Arterial Blood Ionized Calcium Urine WBC (Auto) Salicylates Acetaminophen Coronavirus (PCR) 03/05/21 03/05/21 03/05/21 17:57 21:27 Unknown WBC RBC Hgb Hct MCV MCH RDW Seg Neutrophils % Monocytes % (Manual) Seg Neutrophils # Monocytes # (Manual) PT INR D-Dimer Heparin Anti-Xa Level ABG pH POC ABG pCO2 POC ABG pO2 ABG Hemoglobin ABG Oxyhemoglobin ABG Sodium ABG Potassium ABG Chloride ABG Glucose Carboxyhemoglobin Sodium Chloride Carbon Dioxide BUN Creatinine Glucose POC Glucose 129 H 129 H Lactic Acid Calcium Phosphorus Magnesium Ferritin Total Bilirubin Direct Bilirubin AST ALT Alkaline Phosphatase Ammonia Lactate Dehydrogenase Troponin T C-Reactive Protein Total Protein Albumin Triglycerides Cholesterol HDL Cholesterol Lipase Arterial Blood Glucose Arterial Blood Ionized Calcium Urine WBC (Auto) Salicylates Acetaminophen Coronavirus (PCR) Positive A 03/06/21 03/06/21 03/06/21 03:30 04:30 05:20 WBC 15.2 H RBC 2.48 L Hgb 8.2 L Hct 24.9 L MCV 100 H MCH 33 H RDW 18.6 H Seg Neutrophils % 72.6 H Monocytes % (Manual) Seg Neutrophils # 11.1 H Monocytes # (Manual) PT INR D-Dimer Heparin Anti-Xa Level ABG pH POC ABG pCO2 49.7 H POC ABG pO2 65.1 L ABG Hemoglobin 9.1 L ABG Oxyhemoglobin 90.2 L ABG Sodium 131.2 L ABG Potassium ABG Chloride 96.0 L ABG Glucose 133 H Carboxyhemoglobin Sodium Chloride Carbon Dioxide BUN Creatinine Glucose POC Glucose Lactic Acid Calcium Phosphorus Magnesium Ferritin Total Bilirubin Direct Bilirubin AST ALT Alkaline Phosphatase Ammonia Lactate Dehydrogenase Troponin T C-Reactive Protein 27.90 H Total Protein Albumin Triglycerides Cholesterol HDL Cholesterol Lipase Arterial Blood Glucose 133 H Arterial Blood Ionized Calcium 4.2 L Urine WBC (Auto) Salicylates Acetaminophen Coronavirus (PCR) 03/06/21 03/06/21 03/06/21 05:20 05:30 11:52 WBC RBC Hgb Hct MCV MCH RDW Seg Neutrophils % Monocytes % (Manual) Seg Neutrophils # Monocytes # (Manual) PT INR D-Dimer Heparin Anti-Xa Level ABG pH POC ABG pCO2 POC ABG pO2 ABG Hemoglobin ABG Oxyhemoglobin ABG Sodium ABG Potassium ABG Chloride ABG Glucose Carboxyhemoglobin Sodium 135 L Chloride 94.5 L Carbon Dioxide BUN 49 H Creatinine Glucose 121 H POC Glucose 123 H 123 H Lactic Acid Calcium 7.3 L Phosphorus Magnesium 1.50 L Ferritin Total Bilirubin Direct Bilirubin AST 120 H ALT 74 H Alkaline Phosphatase 306 H Ammonia Lactate Dehydrogenase Troponin T C-Reactive Protein Total Protein 4.5 L Albumin 2.0 L Triglycerides Cholesterol HDL Cholesterol Lipase Arterial Blood Glucose Arterial Blood Ionized Calcium Urine WBC (Auto) Salicylates Acetaminophen Coronavirus (PCR) 03/06/21 03/06/21 03/06/21 14:34 17:45 23:36 WBC RBC Hgb Hct MCV MCH RDW Seg Neutrophils % Monocytes % (Manual) Seg Neutrophils # Monocytes # (Manual) PT INR D-Dimer Heparin Anti-Xa Level ABG pH POC ABG pCO2 POC ABG pO2 ABG Hemoglobin ABG Oxyhemoglobin ABG Sodium ABG Potassium ABG Chloride ABG Glucose Carboxyhemoglobin Sodium Chloride Carbon Dioxide BUN Creatinine Glucose POC Glucose 140 H 209 H Lactic Acid Calcium Phosphorus Magnesium Ferritin Total Bilirubin Direct Bilirubin AST ALT Alkaline Phosphatase Ammonia Lactate Dehydrogenase Troponin T C-Reactive Protein Total Protein Albumin Triglycerides Cholesterol HDL Cholesterol Lipase Arterial Blood Glucose Arterial Blood Ionized Calcium Urine WBC (Auto) 103.0 H Salicylates Acetaminophen Coronavirus (PCR) 03/07/21 03/07/21 03/07/21 03:00 05:32 08:16 WBC RBC Hgb Hct MCV MCH RDW Seg Neutrophils % Monocytes % (Manual) Seg Neutrophils # Monocytes # (Manual) PT INR D-Dimer Heparin Anti-Xa Level ABG pH POC ABG pCO2 POC ABG pO2 ABG Hemoglobin 8.9 L ABG Oxyhemoglobin ABG Sodium 131.4 L ABG Potassium ABG Chloride ABG Glucose 224 H Carboxyhemoglobin Sodium 136 L Chloride 95.3 L Carbon Dioxide BUN 45 H Creatinine Glucose 210 H POC Glucose 213 H Lactic Acid Calcium 8.0 L Phosphorus Magnesium Ferritin Total Bilirubin 1.30 H Direct Bilirubin AST 144 H ALT 66 H Alkaline Phosphatase 335 H Ammonia Lactate Dehydrogenase Troponin T C-Reactive Protein Total Protein 4.9 L Albumin 2.1 L Triglycerides Cholesterol HDL Cholesterol Lipase Arterial Blood Glucose 224 H Arterial Blood Ionized Calcium 4.3 L Urine WBC (Auto) Salicylates Acetaminophen Coronavirus (PCR) 03/07/21 03/07/21 03/07/21 08:16 08:16 08:16 WBC RBC 2.47 L Hgb 8.2 L Hct 24.6 L MCV 100 H MCH 33 H RDW 18.1 H Seg Neutrophils % Monocytes % (Manual) Seg Neutrophils # Monocytes # (Manual) PT INR D-Dimer 403.72 H Heparin Anti-Xa Level ABG pH POC ABG pCO2 POC ABG pO2 ABG Hemoglobin ABG Oxyhemoglobin ABG Sodium ABG Potassium ABG Chloride ABG Glucose Carboxyhemoglobin Sodium Chloride Carbon Dioxide BUN Creatinine Glucose POC Glucose Lactic Acid Calcium Phosphorus Magnesium Ferritin Total Bilirubin Direct Bilirubin AST ALT Alkaline Phosphatase Ammonia Lactate Dehydrogenase 453 H Troponin T C-Reactive Protein 32.50 H Total Protein Albumin Triglycerides Cholesterol HDL Cholesterol Lipase Arterial Blood Glucose Arterial Blood Ionized Calcium Urine WBC (Auto) Salicylates Acetaminophen Coronavirus (PCR) 03/07/21 03/07/21 03/07/21 08:16 11:24 17:22 WBC RBC Hgb Hct MCV MCH RDW Seg Neutrophils % Monocytes % (Manual) Seg Neutrophils # Monocytes # (Manual) PT INR D-Dimer Heparin Anti-Xa Level ABG pH POC ABG pCO2 POC ABG pO2 ABG Hemoglobin ABG Oxyhemoglobin ABG Sodium ABG Potassium ABG Chloride ABG Glucose Carboxyhemoglobin Sodium Chloride Carbon Dioxide BUN Creatinine Glucose POC Glucose 205 H 211 H Lactic Acid Calcium Phosphorus Magnesium Ferritin > 2000.0 H Total Bilirubin Direct Bilirubin AST ALT Alkaline Phosphatase Ammonia Lactate Dehydrogenase Troponin T C-Reactive Protein Total Protein Albumin Triglycerides Cholesterol HDL Cholesterol Lipase Arterial Blood Glucose Arterial Blood Ionized Calcium Urine WBC (Auto) Salicylates Acetaminophen Coronavirus (PCR) 03/07/21 03/08/21 03/08/21 Unknown 00:05 04:00 WBC RBC Hgb Hct MCV MCH RDW Seg Neutrophils % Monocytes % (Manual) Seg Neutrophils # Monocytes # (Manual) PT INR D-Dimer Heparin Anti-Xa Level 0.94 H ABG pH 7.452 H POC ABG pCO2 POC ABG pO2 75.5 L ABG Hemoglobin 10.0 L ABG Oxyhemoglobin 93.5 L ABG Sodium 134.7 L ABG Potassium ABG Chloride ABG Glucose 268 H Carboxyhemoglobin 0.3 L Sodium Chloride Carbon Dioxide BUN Creatinine Glucose POC Glucose 253 H Lactic Acid Calcium Phosphorus Magnesium Ferritin Total Bilirubin Direct Bilirubin AST ALT Alkaline Phosphatase Ammonia Lactate Dehydrogenase Troponin T C-Reactive Protein Total Protein Albumin Triglycerides Cholesterol HDL Cholesterol Lipase Arterial Blood Glucose 268 H Arterial Blood Ionized Calcium 4.5 L Urine WBC (Auto) Salicylates Acetaminophen Coronavirus (PCR) 03/08/21 03/08/21 03/08/21 05:27 06:10 06:10 WBC RBC 2.62 L Hgb 8.4 L Hct 26.0 L MCV 100 H MCH RDW 18.0 H Seg Neutrophils % Monocytes % (Manual) Seg Neutrophils # Monocytes # (Manual) PT INR D-Dimer Heparin Anti-Xa Level ABG pH POC ABG pCO2 POC ABG pO2 ABG Hemoglobin ABG Oxyhemoglobin ABG Sodium ABG Potassium ABG Chloride ABG Glucose Carboxyhemoglobin Sodium Chloride Carbon Dioxide BUN 49 H Creatinine Glucose 280 H POC Glucose 273 H Lactic Acid Calcium Phosphorus Magnesium Ferritin Total Bilirubin Direct Bilirubin AST 130 H ALT 68 H Alkaline Phosphatase 440 H Ammonia Lactate Dehydrogenase Troponin T C-Reactive Protein Total Protein 5.3 L Albumin 1.9 L Triglycerides Cholesterol HDL Cholesterol Lipase Arterial Blood Glucose Arterial Blood Ionized Calcium Urine WBC (Auto) Salicylates Acetaminophen Coronavirus (PCR) 03/08/21 03/08/21 03/08/21 11:27 17:56 23:20 WBC RBC Hgb Hct MCV MCH RDW Seg Neutrophils % Monocytes % (Manual) Seg Neutrophils # Monocytes # (Manual) PT INR D-Dimer Heparin Anti-Xa Level ABG pH POC ABG pCO2 POC ABG pO2 ABG Hemoglobin ABG Oxyhemoglobin ABG Sodium ABG Potassium ABG Chloride ABG Glucose Carboxyhemoglobin Sodium Chloride Carbon Dioxide BUN Creatinine Glucose POC Glucose 258 H 279 H 289 H Lactic Acid Calcium Phosphorus Magnesium Ferritin Total Bilirubin Direct Bilirubin AST ALT Alkaline Phosphatase Ammonia Lactate Dehydrogenase Troponin T C-Reactive Protein Total Protein Albumin Triglycerides Cholesterol HDL Cholesterol Lipase Arterial Blood Glucose Arterial Blood Ionized Calcium Urine WBC (Auto) Salicylates Acetaminophen Coronavirus (PCR) 03/09/21 03/09/21 03/09/21 04:00 05:12 08:00 WBC RBC Hgb Hct MCV MCH RDW Seg Neutrophils % Monocytes % (Manual) Seg Neutrophils # Monocytes # (Manual) PT INR D-Dimer 249.59 H Heparin Anti-Xa Level ABG pH 7.456 H POC ABG pCO2 POC ABG pO2 ABG Hemoglobin 8.9 L ABG Oxyhemoglobin ABG Sodium 135.6 L ABG Potassium ABG Chloride ABG Glucose 298 H Carboxyhemoglobin 0.3 L Sodium Chloride Carbon Dioxide BUN Creatinine Glucose POC Glucose 267 H Lactic Acid Calcium Phosphorus Magnesium Ferritin Total Bilirubin Direct Bilirubin AST ALT Alkaline Phosphatase Ammonia Lactate Dehydrogenase Troponin T C-Reactive Protein Total Protein Albumin Triglycerides Cholesterol HDL Cholesterol Lipase Arterial Blood Glucose 298 H Arterial Blood Ionized Calcium 4.5 L Urine WBC (Auto) Salicylates Acetaminophen Coronavirus (PCR) 03/09/21 03/09/21 03/09/21 08:00 08:00 08:00 WBC RBC Hgb Hct MCV MCH RDW Seg Neutrophils % Monocytes % (Manual) Seg Neutrophils # Monocytes # (Manual) PT INR D-Dimer Heparin Anti-Xa Level ABG pH POC ABG pCO2 POC ABG pO2 ABG Hemoglobin ABG Oxyhemoglobin ABG Sodium ABG Potassium ABG Chloride ABG Glucose Carboxyhemoglobin Sodium Chloride Carbon Dioxide BUN 44 H Creatinine Glucose 289 H POC Glucose Lactic Acid Calcium Phosphorus Magnesium Ferritin 2743.0 H Total Bilirubin Direct Bilirubin AST 134 H ALT 62 H Alkaline Phosphatase 527 H Ammonia Lactate Dehydrogenase 459 H Troponin T C-Reactive Protein 10.60 H Total Protein 5.0 L Albumin 2.2 L Triglycerides Cholesterol HDL Cholesterol Lipase Arterial Blood Glucose Arterial Blood Ionized Calcium Urine WBC (Auto) Salicylates Acetaminophen Coronavirus (PCR) 03/09/21 03/09/21 03/09/21 08:00 11:52 18:05 WBC RBC 2.60 L Hgb 8.5 L Hct 25.5 L MCV 98 H MCH 33 H RDW 18.1 H Seg Neutrophils % Monocytes % (Manual) Seg Neutrophils # Monocytes # (Manual) PT INR D-Dimer Heparin Anti-Xa Level ABG pH POC ABG pCO2 POC ABG pO2 ABG Hemoglobin ABG Oxyhemoglobin ABG Sodium ABG Potassium ABG Chloride ABG Glucose Carboxyhemoglobin Sodium Chloride Carbon Dioxide BUN Creatinine Glucose POC Glucose 306 H 293 H Lactic Acid Calcium Phosphorus Magnesium Ferritin Total Bilirubin Direct Bilirubin AST ALT Alkaline Phosphatase Ammonia Lactate Dehydrogenase Troponin T C-Reactive Protein Total Protein Albumin Triglycerides Cholesterol HDL Cholesterol Lipase Arterial Blood Glucose Arterial Blood Ionized Calcium Urine WBC (Auto) Salicylates Acetaminophen Coronavirus (PCR) 03/09/21 03/10/21 03/10/21 23:21 04:38 05:25 WBC RBC Hgb 8.6 L Hct 26.0 L MCV MCH RDW Seg Neutrophils % Monocytes % (Manual) Seg Neutrophils # Monocytes # (Manual) PT INR D-Dimer Heparin Anti-Xa Level ABG pH POC ABG pCO2 POC ABG pO2 ABG Hemoglobin ABG Oxyhemoglobin ABG Sodium ABG Potassium ABG Chloride ABG Glucose Carboxyhemoglobin Sodium Chloride Carbon Dioxide BUN Creatinine Glucose POC Glucose 306 H 310 H Lactic Acid Calcium Phosphorus Magnesium Ferritin Total Bilirubin Direct Bilirubin AST ALT Alkaline Phosphatase Ammonia Lactate Dehydrogenase Troponin T C-Reactive Protein Total Protein Albumin Triglycerides Cholesterol HDL Cholesterol Lipase Arterial Blood Glucose Arterial Blood Ionized Calcium Urine WBC (Auto) Salicylates Acetaminophen Coronavirus (PCR) 03/10/21 05:25 WBC RBC Hgb Hct MCV MCH RDW Seg Neutrophils % Monocytes % (Manual) Seg Neutrophils # Monocytes # (Manual) PT INR D-Dimer Heparin Anti-Xa Level ABG pH POC ABG pCO2 POC ABG pO2 ABG Hemoglobin ABG Oxyhemoglobin ABG Sodium ABG Potassium ABG Chloride ABG Glucose Carboxyhemoglobin Sodium Chloride Carbon Dioxide 32 H BUN 45 H Creatinine Glucose 341 H POC Glucose Lactic Acid Calcium Phosphorus Magnesium Ferritin Total Bilirubin Direct Bilirubin AST ALT Alkaline Phosphatase Ammonia Lactate Dehydrogenase Troponin T C-Reactive Protein Total Protein Albumin Triglycerides Cholesterol HDL Cholesterol Lipase Arterial Blood Glucose Arterial Blood Ionized Calcium Urine WBC (Auto) Salicylates Acetaminophen Coronavirus (PCR) Chest x-ray: image reviewed Allied health notes reviewed: RT
[2021-03-10] MEDS ORDERED: FUROSEMIDE 40 MG/4 ML INJ IV ONE (13:30)
--- NOTE | 2021-03-10 13:32 | Progress Note ---
Assessment and Plan Cultures: SARS CoV2 PCR: Positive MRSA nasal PCR: Positive 03/01/2021 blood culture: No growth 03/01/2021 urine culture: No growth 03/02/2021 tracheal aspirate: [place] albicans 03/06/2021 blood culture: no growth 03/06/2021 urine culture: No growth A/P: 51-year-old male with COPD, chronic respiratory failure, CHF, diabetes, DVT/PE, morbid obesity on anticoagulation was admitted to the hospital on 03/01/2021 with altered mental status and shortness of breath: #Bilateral pneumonia: secondary to COVID-19. Completed empiric antibiotics. #Acute hypoxic respiratory failure: Requiring mechanical ventilation. #Morbid obesity #Acute on chronic CHF #Transaminitis: Likely from COVID-19. Elevated LFTs with elevated alkaline phosphatase: RUQ ultrasound did not reveal any evidence of cholelithiasis, cholecystitis or choledocholithiasis. #Acute RLE DVT: On anticoagulation Recs: -IV/PO Dexamethasone 10 mg daily x 10 days, higher dose due to morbid obesity. Ending 03/15/2021 -Complete 5 days of remdesivir, ending today -Patient has been on the vent for several days, does not meet criteria for Tocilizumab. Also oxygen requirements improving. -Completed empiric antibiotics -on anticoagulation Van Suarez MD, FACP [facility] ([facility] O: [phone] F: [phone] Subjective Date of service: 03/10/21 Principal diagnosis: Ac hypoxemic resp failure; NSTEMI; ALPHONSO; Sepsis; PNA; CHF; DM II; AMS Interval history: Afebrile. Remains on the vent, improving requirements, 35% FiO2, 6 of PEEP Objective - Exam Narrative Exam: Physical Exam (reviewed in chart to minimize risk of transmission) Constitutional: deferred Head, Ears, Nose: deferred Eyes: deferred Neck: deferred Oral: deferred Cardiovascular: deferred Respiratory: deferred GI: deferred Musculoskeletal: deferred Skin: deferred Hem/Lymphatic: deferred Psych: deferred Neurological: deferred - Constitutional Vitals: Vital Signs Temp Pulse Resp BP Pulse Ox 98.9 F 92 H 15 174/107 95 03/10/21 03:47 03/10/21 13:00 03/10/21 13:00 03/10/21 13:00 03/10/21 13:00 Temperature -Last 24 Hours Temperature 98.9 F Temperature 98.8 F Temperature 98.6 F - Labs CBC & Chem 7: 03/10/21 05:25 03/10/21 05:25 Labs: Abnormal lab results 03/09/21 03/09/21 03/10/21 Range/Units 18:05 23:21 04:38 Hgb (11.8-15.2) gm/dl Hct (35.5-45.6) % Carbon Dioxide (22-30) mmol/L BUN (9-20) mg/dL Glucose (75-100) mg/dL POC Glucose 293 H 306 H 310 H (70-105) mg/dL 03/10/21 03/10/21 03/10/21 Range/Units 05:25 05:25 12:52 Hgb 8.6 L (11.8-15.2) gm/dl Hct 26.0 L (35.5-45.6) % Carbon Dioxide 32 H (22-30) mmol/L BUN 45 H (9-20) mg/dL Glucose 341 H (75-100) mg/dL POC Glucose 340 H (70-105) mg/dL
[2021-03-10] MEDS: INSULIN REGULAR, HUMAN 100 UNITS/1 ML SUB-Q SCH (17:46)
[2021-03-10] MEDS: SODIUM CHLORIDE 0.9% 50 ML IVPB IV SCH (21:14)
[2021-03-10] MEDS: REMDESIVIR 100 MG in SODIUM CHLORIDE 0.9% 250ML 250 ML IV SCH (21:14)
[2021-03-10] MEDS ORDERED: INSULIN GLARGINE 100 UNITS/ML SUB-Q SCH (22:00)
[2021-03-11 08:11] LABS: Hemoglobin 8.9 gm/dl (11.8-15.2); Mean Corpuscular HGB Conc 33 % (32-34); Mean Corpuscular Volume 98 fl (84-94); Platelet Count 233 K/mm3 (140-440); Red Blood Count 2.76 M/mm3 (3.65-5.03); Red Cell Distribution Width 18.3 % (13.2-15.2)
[2021-03-11 08:39] LABS: BUN/Creatinine Ratio 51; Blood Urea Nitrogen 41 mg/dL (9-20); Calcium 9.4 mg/dL (8.4-10.2); Hemolysis Index 9
[2021-03-11] MEDS: SENNOSIDES/DOCUSATE SODIUM 8.6/50 MG TAB FEEDTUBE SCH ×2 (09:12→21:24)
[2021-03-11] MEDS: ENOXAPARIN 150 MG/1 ML INJ SUB-Q SCH ×2 (09:13→21:23)
[2021-03-11] MEDS: CHOLECALCIFEROL (VIT D3) 1000 UNIT (25 mcg) TAB PO SCH (09:13)
[2021-03-11] MEDS: ZINC SULFATE 220 MG CAP PO SCH ×2 (09:13→21:28)
[2021-03-11] MEDS: ASCORBIC ACID 500 MG TAB PO SCH ×2 (09:13→21:27)
[2021-03-11] MEDS: ASPIRIN 81 MG TAB CHEW PO SCH (09:14)
[2021-03-11] MEDS: FAMOTIDINE 20 MG TAB PO SCH ×2 (09:14→21:26)
[2021-03-11] MEDS: CALCIUM CARB/VIT D3/MINERALS 600 MG/800 UNITS TAB PO SCH ×2 (10:25→21:26)
--- NOTE | 2021-03-11 10:50 | Progress Note ---
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 and advance diet - s/p anti-infective's per ID recommendations (Vancomycin, Levaquin) - continue full dose Lovenox re: VTE - continue care as below otherwise; - continue BIPAP scheduled qhs with prn daytime use - continue to wean supplemental oxygen for target O2 sat's > 90% acutely - aspiration precautions - continue bronchodilators with pulmonary hygiene per RT - wean per pulmonary driven protocols otherwise - continue accuchecks with glycemic control per SSI (While critically ill target blood glucose of 140-180 mg/dL; avoid hypoglycemia) - avoid nephrotoxins, renally dose all medications - continue to avoid benzodiazepine's, reduce the possibility of delirium - prn analgesia per pain score - Maintenance of sleep-wake cycle, avoid delirium - G.I. & VTE prophylaxis - PT/OT/ROM exercises - continue mobility protocols for pressure ulcer prophylaxis - Monitor hemodynamics closely - continue other care per attending / other consultants - discharge planning ongoing concurrently COVID SPECIFIC INTERVENTIONS - continue empiric contact and airborne isolation - Remdesivir as per ID/Pulmonary developed protocols (started) - started systemic steroids for severe COVID-19 infection empirically - follow repeat COVID tests results - started zinc and vitamin C supplementation i9f test positive - get & monitor inflammatory markers per facility protocol - ferritin, Ddimer, CRP (if test +ve) - therapeutic anticoagulation per system Protocol based on d-dimer and clinical considerations (On IV HEparin for VTE) .... Re-evaluate in am & prn CONDITION: CRITICAL PROGNOSIS: GUARDED CODE STATUS: FULL CODE The high probability of a clinically significant, sudden or life-threatening deterioration of the [respiratory, cardiovascular & neurologic] system(s) required my full and direct attention, intervention and personal management. The aggregate critical care time was [32] minutes without overlap. Time includes spent on; [x] Data Review and interpretation [x] Patient assessment and monitoring of vital signs [x] Documentation [x] Medication orders and management Subjective Date of service: 03/11/21 Principal diagnosis: Ac hypoxemic resp failure; NSTEMI; ALPHONSO; Sepsis; PNA; CHF; DM II; AMS Interval history: Patient is seen today for: Acute hypoxemic respiratory failure; NSTEMI; ALPHONSO; Severe sepsis; Pneumonia; CHF; DM II; Acute encephalopathy Seen and examined at bedside; 24hour events reviewed; nursing and respiratory care staff consulted; no adverse overnight events reported to me; resting peacefully in bed; FiO2 requirements increasing; on 6L NC now; denies chest pains or SOB; good response to diuresis last 48 hours and BP's remain elevated; No N/V/F/C; confused intermittently Objective Vital Signs - 12hr 03/10/21 03/10/21 03/11/21 23:00 23:34 00:00 Temperature 98.8 F Pulse Rate 97 H 92 H 100 H Pulse Rate [ 105 H From Monitor] Respiratory 18 15 16 Rate Blood Pressure 174/107 148/79 174/107 O2 Sat by Pulse 91 99 Oximetry 03/11/21 03/11/21 03/11/21 01:00 02:00 03:00 Temperature Pulse Rate 102 H 105 H 101 H Pulse Rate [ From Monitor] Respiratory 15 17 15 Rate Blood Pressure 174/107 174/107 174/107 O2 Sat by Pulse Oximetry 03/11/21 03/11/21 03/11/21 04:00 04:30 05:00 Temperature 98.9 F Pulse Rate 116 H 113 H 107 H Pulse Rate [ 105 H From Monitor] Respiratory 22 21 16 Rate Blood Pressure 174/107 174/107 O2 Sat by Pulse 89 93 Oximetry 03/11/21 03/11/21 03/11/21 06:00 07:00 08:00 Temperature 98.5 F Pulse Rate 117 H 97 H 109 H Pulse Rate [ 101 H From Monitor] Respiratory 17 17 17 Rate Blood Pressure 174/107 174/107 174/107 O2 Sat by Pulse 98 93 83 L Oximetry 03/11/21 03/11/21 03/11/21 09:00 09:12 10:00 Temperature Pulse Rate 108 H 107 H 94 H Pulse Rate [ From Monitor] Respiratory 18 16 Rate Blood Pressure 174/107 205/110 O2 Sat by Pulse 92 94 Oximetry Constitutional: no acute distress, other (middle aged obese male with milkdly increased respiratory effort at rest) Eyes: non-icteric ENT: oropharynx moist, other (extubated) Neck: supple, no lymphadenopathy, no JVD, other (large circumference) Effort: mildly labored Ascultation: Bilateral: diminished breath sounds, rhonchi (posterior bases) Percussion: Bilateral: not dull Cardiovascular: regular rate and rhythm Gastrointestinal: normoactive bowel sounds, soft, non-tender, non-distended (protuberant) Integumentary: normal Extremities: no cyanosis, pulses normal, no ischemia or petechiae, edema (trace) Neurologic: non-focal exam (grossly), pupils equal and round, CN II-XII normal, motor strength normal and Psychiatric: other (mild delirium) CBC and BMP: 03/11/21 06:54 03/11/21 06:54 ABG, PT/INR, D-dimer: ABG ABG pH 7.487 (7.320-7.450) H 03/10/21 12:33 POC ABG pCO2 40.4 mmHg (32.0-48.0) 03/10/21 12:33 POC ABG pO2 62.1 mmHg (83-108) L 03/10/21 12:33 POC ABG HCO3 29.9 03/10/21 12:33 ABG O2 Saturation 90.2 (0-100) 03/10/21 12:33 PT/INR, D-dimer PT 15.6 Sec. (12.2-14.9) H 03/04/21 10:17 INR 1.18 (0.87-1.13) H 03/04/21 10:17 D-Dimer 238.43 ng/mlDDU (0-234) H 03/11/21 06:54 Abnormal lab findings: Abnormal Labs 03/01/21 03/01/21 03/01/21 19:15 19:21 19:21 WBC 12.7 H RBC 2.77 L Hgb 9.1 L Hct 27.7 L MCV 100 H MCH 33 H RDW 18.0 H Seg Neutrophils % Monocytes % (Manual) 17.0 H Seg Neutrophils # Monocytes # (Manual) 2.2 H PT INR D-Dimer Heparin Anti-Xa Level ABG pH POC ABG pCO2 POC ABG pO2 64.9 L ABG Hemoglobin 9.3 L ABG Oxyhemoglobin 93.0 L ABG Sodium 133.8 L ABG Potassium ABG Chloride 97.0 L ABG Glucose 191 H Carboxyhemoglobin Sodium Chloride Carbon Dioxide BUN Creatinine Glucose POC Glucose Lactic Acid Calcium Phosphorus Magnesium Ferritin Total Bilirubin Direct Bilirubin AST ALT Alkaline Phosphatase Ammonia Lactate Dehydrogenase Troponin T 0.493 H* C-Reactive Protein Total Protein Albumin Triglycerides 400 H Cholesterol 232 H HDL Cholesterol 22 L Lipase Arterial Blood Glucose 191 H Arterial Blood Ionized Calcium 4.4 L Urine WBC (Auto) Salicylates Acetaminophen Coronavirus (PCR) 03/01/21 03/01/21 03/01/21 19:21 19:21 19:21 WBC RBC Hgb Hct MCV MCH RDW Seg Neutrophils % Monocytes % (Manual) Seg Neutrophils # Monocytes # (Manual) PT 16.6 H INR 1.28 H D-Dimer Heparin Anti-Xa Level ABG pH POC ABG pCO2 POC ABG pO2 ABG Hemoglobin ABG Oxyhemoglobin ABG Sodium ABG Potassium ABG Chloride ABG Glucose Carboxyhemoglobin Sodium 132 L Chloride 92.2 L Carbon Dioxide BUN 43 H Creatinine 2.4 H Glucose 190 H POC Glucose Lactic Acid 2.90 H* Calcium Phosphorus Magnesium Ferritin Total Bilirubin 1.60 H Direct Bilirubin 1.2 H AST 275 H ALT 156 H Alkaline Phosphatase 282 H Ammonia Lactate Dehydrogenase Troponin T C-Reactive Protein Total Protein 5.8 L Albumin 2.6 L Triglycerides Cholesterol HDL Cholesterol Lipase 120 H Arterial Blood Glucose Arterial Blood Ionized Calcium Urine WBC (Auto) Salicylates Acetaminophen Coronavirus (PCR) 03/01/21 03/01/21 03/01/21 19:21 19:21 19:21 WBC RBC Hgb Hct MCV MCH RDW Seg Neutrophils % Monocytes % (Manual) Seg Neutrophils # Monocytes # (Manual) PT INR D-Dimer Heparin Anti-Xa Level ABG pH POC ABG pCO2 POC ABG pO2 ABG Hemoglobin ABG Oxyhemoglobin ABG Sodium ABG Potassium ABG Chloride ABG Glucose Carboxyhemoglobin Sodium Chloride Carbon Dioxide BUN Creatinine Glucose POC Glucose Lactic Acid Calcium Phosphorus Magnesium Ferritin Total Bilirubin Direct Bilirubin AST ALT Alkaline Phosphatase Ammonia 71.0 H Lactate Dehydrogenase Troponin T C-Reactive Protein Total Protein Albumin Triglycerides Cholesterol HDL Cholesterol Lipase Arterial Blood Glucose Arterial Blood Ionized Calcium Urine WBC (Auto) Salicylates < 0.3 L Acetaminophen 5.0 L Coronavirus (PCR) 03/01/21 03/01/21 03/02/21 20:55 20:55 00:01 WBC RBC Hgb Hct MCV MCH RDW Seg Neutrophils % Monocytes % (Manual) Seg Neutrophils # Monocytes # (Manual) PT INR D-Dimer Heparin Anti-Xa Level ABG pH 7.234 L POC ABG pCO2 POC ABG pO2 240.5 H ABG Hemoglobin 9.3 L ABG Oxyhemoglobin 99.1 H ABG Sodium 135.3 L ABG Potassium ABG Chloride ABG Glucose 286 H Carboxyhemoglobin 0.3 L Sodium Chloride Carbon Dioxide BUN Creatinine Glucose POC Glucose Lactic Acid 4.30 H* Calcium Phosphorus Magnesium Ferritin Total Bilirubin Direct Bilirubin AST ALT Alkaline Phosphatase Ammonia Lactate Dehydrogenase Troponin T 0.484 H* C-Reactive Protein Total Protein Albumin Triglycerides Cholesterol HDL Cholesterol Lipase Arterial Blood Glucose 286 H Arterial Blood Ionized Calcium Urine WBC (Auto) Salicylates Acetaminophen Coronavirus (PCR) 03/02/21 03/02/21 03/02/21 03:42 05:23 06:35 WBC RBC Hgb Hct MCV MCH RDW Seg Neutrophils % Monocytes % (Manual) Seg Neutrophils # Monocytes # (Manual) PT INR D-Dimer Heparin Anti-Xa Level ABG pH 7.225 L POC ABG pCO2 POC ABG pO2 181.8 H ABG Hemoglobin 9.4 L ABG Oxyhemoglobin 98.6 H ABG Sodium 132.1 L ABG Potassium 5.0 H ABG Chloride ABG Glucose 454 H Carboxyhemoglobin 0.3 L Sodium Chloride Carbon Dioxide BUN Creatinine Glucose POC Glucose 410 H Lactic Acid 7.50 H* Calcium Phosphorus Magnesium Ferritin Total Bilirubin Direct Bilirubin AST ALT Alkaline Phosphatase Ammonia Lactate Dehydrogenase Troponin T C-Reactive Protein Total Protein Albumin Triglycerides Cholesterol HDL Cholesterol Lipase Arterial Blood Glucose 454 H Arterial Blood Ionized Calcium 4.2 L Urine WBC (Auto) Salicylates Acetaminophen Coronavirus (PCR) 03/02/21 03/02/21 03/02/21 10:48 10:48 10:48 WBC RBC Hgb Hct MCV MCH RDW Seg Neutrophils % Monocytes % (Manual) Seg Neutrophils # Monocytes # (Manual) PT INR D-Dimer Heparin Anti-Xa Level ABG pH POC ABG pCO2 POC ABG pO2 ABG Hemoglobin ABG Oxyhemoglobin ABG Sodium ABG Potassium ABG Chloride ABG Glucose Carboxyhemoglobin Sodium 132 L Chloride 93.3 L Carbon Dioxide 20 L BUN 46 H Creatinine 1.9 H Glucose 503 H* POC Glucose Lactic Acid 3.40 H* Calcium 7.9 L Phosphorus 5.80 H Magnesium Ferritin Total Bilirubin Direct Bilirubin AST ALT Alkaline Phosphatase Ammonia Lactate Dehydrogenase Troponin T C-Reactive Protein Total Protein Albumin Triglycerides Cholesterol HDL Cholesterol Lipase Arterial Blood Glucose Arterial Blood Ionized Calcium Urine WBC (Auto) Salicylates Acetaminophen Coronavirus (PCR) 03/02/21 03/02/21 03/02/21 11:23 11:38 15:33 WBC RBC Hgb Hct MCV MCH RDW Seg Neutrophils % Monocytes % (Manual) Seg Neutrophils # Monocytes # (Manual) PT INR D-Dimer Heparin Anti-Xa Level ABG pH 7.318 L POC ABG pCO2 POC ABG pO2 ABG Hemoglobin 9.2 L ABG Oxyhemoglobin ABG Sodium 133.2 L ABG Potassium ABG Chloride ABG Glucose 504 H Carboxyhemoglobin 0.3 L Sodium Chloride Carbon Dioxide BUN Creatinine Glucose POC Glucose 468 H 445 H Lactic Acid Calcium Phosphorus Magnesium Ferritin Total Bilirubin Direct Bilirubin AST ALT Alkaline Phosphatase Ammonia Lactate Dehydrogenase Troponin T C-Reactive Protein Total Protein Albumin Triglycerides Cholesterol HDL Cholesterol Lipase Arterial Blood Glucose 504 H Arterial Blood Ionized Calcium 4.2 L Urine WBC (Auto) Salicylates Acetaminophen Coronavirus (PCR) 03/02/21 03/02/21 03/02/21 16:28 16:28 16:28 WBC RBC Hgb 8.8 L Hct 26.0 L MCV MCH RDW Seg Neutrophils % Monocytes % (Manual) Seg Neutrophils # Monocytes # (Manual) PT 15.2 H INR 1.14 H D-Dimer Heparin Anti-Xa Level ABG pH POC ABG pCO2 POC ABG pO2 ABG Hemoglobin ABG Oxyhemoglobin ABG Sodium ABG Potassium ABG Chloride ABG Glucose Carboxyhemoglobin Sodium 135 L Chloride 93.8 L Carbon Dioxide BUN 48 H Creatinine 1.8 H Glucose 454 H POC Glucose Lactic Acid Calcium 7.6 L Phosphorus Magnesium Ferritin Total Bilirubin Direct Bilirubin AST ALT Alkaline Phosphatase Ammonia Lactate Dehydrogenase Troponin T C-Reactive Protein Total Protein Albumin Triglycerides Cholesterol HDL Cholesterol Lipase Arterial Blood Glucose Arterial Blood Ionized Calcium Urine WBC (Auto) Salicylates Acetaminophen Coronavirus (PCR) 03/02/21 03/02/21 03/02/21 17:39 18:52 20:09 WBC RBC Hgb Hct MCV MCH RDW Seg Neutrophils % Monocytes % (Manual) Seg Neutrophils # Monocytes # (Manual) PT INR D-Dimer Heparin Anti-Xa Level ABG pH POC ABG pCO2 POC ABG pO2 ABG Hemoglobin ABG Oxyhemoglobin ABG Sodium ABG Potassium ABG Chloride ABG Glucose Carboxyhemoglobin Sodium Chloride Carbon Dioxide BUN Creatinine Glucose POC Glucose 404 H 357 H 347 H Lactic Acid Calcium Phosphorus Magnesium Ferritin Total Bilirubin Direct Bilirubin AST ALT Alkaline Phosphatase Ammonia Lactate Dehydrogenase Troponin T C-Reactive Protein Total Protein Albumin Triglycerides Cholesterol HDL Cholesterol Lipase Arterial Blood Glucose Arterial Blood Ionized Calcium Urine WBC (Auto) Salicylates Acetaminophen Coronavirus (PCR) 03/02/21 03/02/21 03/02/21 21:03 22:00 22:55 WBC RBC Hgb Hct MCV MCH RDW Seg Neutrophils % Monocytes % (Manual) Seg Neutrophils # Monocytes # (Manual) PT INR D-Dimer Heparin Anti-Xa Level ABG pH POC ABG pCO2 POC ABG pO2 ABG Hemoglobin ABG Oxyhemoglobin ABG Sodium ABG Potassium ABG Chloride ABG Glucose Carboxyhemoglobin Sodium Chloride Carbon Dioxide BUN Creatinine Glucose POC Glucose 307 H 270 H 237 H Lactic Acid Calcium Phosphorus Magnesium Ferritin Total Bilirubin Direct Bilirubin AST ALT Alkaline Phosphatase Ammonia Lactate Dehydrogenase Troponin T C-Reactive Protein Total Protein Albumin Triglycerides Cholesterol HDL Cholesterol Lipase Arterial Blood Glucose Arterial Blood Ionized Calcium Urine WBC (Auto) Salicylates Acetaminophen Coronavirus (PCR) 03/03/21 03/03/21 03/03/21 00:02 00:57 02:01 WBC RBC Hgb Hct MCV MCH RDW Seg Neutrophils % Monocytes % (Manual) Seg Neutrophils # Monocytes # (Manual) PT INR D-Dimer Heparin Anti-Xa Level ABG pH POC ABG pCO2 POC ABG pO2 ABG Hemoglobin ABG Oxyhemoglobin ABG Sodium ABG Potassium ABG Chloride ABG Glucose Carboxyhemoglobin Sodium Chloride Carbon Dioxide BUN Creatinine Glucose POC Glucose 252 H 214 H 261 H Lactic Acid Calcium Phosphorus Magnesium Ferritin Total Bilirubin Direct Bilirubin AST ALT Alkaline Phosphatase Ammonia Lactate Dehydrogenase Troponin T C-Reactive Protein Total Protein Albumin Triglycerides Cholesterol HDL Cholesterol Lipase Arterial Blood Glucose Arterial Blood Ionized Calcium Urine WBC (Auto) Salicylates Acetaminophen Coronavirus (PCR) 03/03/21 03/03/21 03/03/21 03:07 03:10 03:50 WBC 13.7 H RBC 2.69 L Hgb 8.7 L Hct 26.9 L MCV 100 H MCH RDW 18.5 H Seg Neutrophils % 79.0 H Monocytes % (Manual) Seg Neutrophils # 10.8 H Monocytes # (Manual) PT INR D-Dimer Heparin Anti-Xa Level ABG pH POC ABG pCO2 50.9 H POC ABG pO2 81.9 L ABG Hemoglobin 8.7 L ABG Oxyhemoglobin ABG Sodium 134.2 L ABG Potassium ABG Chloride 96.0 L ABG Glucose 279 H Carboxyhemoglobin 0.4 L Sodium Chloride Carbon Dioxide BUN Creatinine Glucose POC Glucose 276 H Lactic Acid Calcium Phosphorus Magnesium Ferritin Total Bilirubin Direct Bilirubin AST ALT Alkaline Phosphatase Ammonia Lactate Dehydrogenase Troponin T C-Reactive Protein Total Protein Albumin Triglycerides Cholesterol HDL Cholesterol Lipase Arterial Blood Glucose 279 H Arterial Blood Ionized Calcium 3.9 L Urine WBC (Auto) Salicylates Acetaminophen Coronavirus (PCR) 03/03/21 03/03/21 03/03/21 03:50 04:06 04:32 WBC RBC Hgb Hct MCV MCH RDW Seg Neutrophils % Monocytes % (Manual) Seg Neutrophils # Monocytes # (Manual) PT INR D-Dimer Heparin Anti-Xa Level ABG pH POC ABG pCO2 POC ABG pO2 ABG Hemoglobin ABG Oxyhemoglobin ABG Sodium ABG Potassium ABG Chloride ABG Glucose Carboxyhemoglobin Sodium Chloride 94.2 L Carbon Dioxide BUN 45 H Creatinine 1.9 H Glucose 261 H POC Glucose 256 H Lactic Acid Calcium 7.3 L Phosphorus Magnesium Ferritin Total Bilirubin Direct Bilirubin 0.9 H AST 208 H ALT 148 H Alkaline Phosphatase 251 H Ammonia Lactate Dehydrogenase Troponin T C-Reactive Protein Total Protein 5.5 L Albumin 2.4 L Triglycerides Cholesterol HDL Cholesterol Lipase Arterial Blood Glucose Arterial Blood Ionized Calcium Urine WBC (Auto) Salicylates Acetaminophen Coronavirus (PCR) 03/03/21 03/03/21 03/03/21 05:23 06:06 07:07 WBC RBC Hgb Hct MCV MCH RDW Seg Neutrophils % Monocytes % (Manual) Seg Neutrophils # Monocytes # (Manual) PT INR D-Dimer Heparin Anti-Xa Level ABG pH POC ABG pCO2 POC ABG pO2 ABG Hemoglobin ABG Oxyhemoglobin ABG Sodium ABG Potassium ABG Chloride ABG Glucose Carboxyhemoglobin Sodium Chloride Carbon Dioxide BUN Creatinine Glucose POC Glucose 214 H 249 H 237 H Lactic Acid Calcium Phosphorus Magnesium Ferritin Total Bilirubin Direct Bilirubin AST ALT Alkaline Phosphatase Ammonia Lactate Dehydrogenase Troponin T C-Reactive Protein Total Protein Albumin Triglycerides Cholesterol HDL Cholesterol Lipase Arterial Blood Glucose Arterial Blood Ionized Calcium Urine WBC (Auto) Salicylates Acetaminophen Coronavirus (PCR) 03/03/21 03/03/21 03/03/21 07:58 08:58 09:52 WBC RBC Hgb Hct MCV MCH RDW Seg Neutrophils % Monocytes % (Manual) Seg Neutrophils # Monocytes # (Manual) PT INR D-Dimer Heparin Anti-Xa Level ABG pH POC ABG pCO2 POC ABG pO2 ABG Hemoglobin ABG Oxyhemoglobin ABG Sodium ABG Potassium ABG Chloride ABG Glucose Carboxyhemoglobin Sodium Chloride Carbon Dioxide BUN Creatinine Glucose POC Glucose 227 H 215 H 207 H Lactic Acid Calcium Phosphorus Magnesium Ferritin Total Bilirubin Direct Bilirubin AST ALT Alkaline Phosphatase Ammonia Lactate Dehydrogenase Troponin T C-Reactive Protein Total Protein Albumin Triglycerides Cholesterol HDL Cholesterol Lipase Arterial Blood Glucose Arterial Blood Ionized Calcium Urine WBC (Auto) Salicylates Acetaminophen Coronavirus (PCR) 03/03/21 03/03/21 03/03/21 10:55 11:44 12:53 WBC RBC Hgb Hct MCV MCH RDW Seg Neutrophils % Monocytes % (Manual) Seg Neutrophils # Monocytes # (Manual) PT INR D-Dimer Heparin Anti-Xa Level ABG pH POC ABG pCO2 POC ABG pO2 ABG Hemoglobin ABG Oxyhemoglobin ABG Sodium ABG Potassium ABG Chloride ABG Glucose Carboxyhemoglobin Sodium Chloride Carbon Dioxide BUN Creatinine Glucose POC Glucose 198 H 210 H 203 H Lactic Acid Calcium Phosphorus Magnesium Ferritin Total Bilirubin Direct Bilirubin AST ALT Alkaline Phosphatase Ammonia Lactate Dehydrogenase Troponin T C-Reactive Protein Total Protein Albumin Triglycerides Cholesterol HDL Cholesterol Lipase Arterial Blood Glucose Arterial Blood Ionized Calcium Urine WBC (Auto) Salicylates Acetaminophen Coronavirus (PCR) 03/03/21 03/03/21 03/03/21 13:53 14:58 15:23 WBC RBC Hgb Hct MCV MCH RDW Seg Neutrophils % Monocytes % (Manual) Seg Neutrophils # Monocytes # (Manual) PT INR D-Dimer Heparin Anti-Xa Level ABG pH POC ABG pCO2 POC ABG pO2 ABG Hemoglobin ABG Oxyhemoglobin ABG Sodium ABG Potassium ABG Chloride ABG Glucose Carboxyhemoglobin Sodium Chloride Carbon Dioxide BUN Creatinine Glucose POC Glucose 210 H 187 H Lactic Acid 3.10 H* Calcium Phosphorus Magnesium Ferritin Total Bilirubin Direct Bilirubin AST ALT Alkaline Phosphatase Ammonia Lactate Dehydrogenase Troponin T C-Reactive Protein Total Protein Albumin Triglycerides Cholesterol HDL Cholesterol Lipase Arterial Blood Glucose Arterial Blood Ionized Calcium Urine WBC (Auto) Salicylates Acetaminophen Coronavirus (PCR) 03/03/21 03/03/21 03/03/21 15:51 16:25 16:53 WBC RBC Hgb Hct MCV MCH RDW Seg Neutrophils % Monocytes % (Manual) Seg Neutrophils # Monocytes # (Manual) PT INR D-Dimer Heparin Anti-Xa Level ABG pH POC ABG pCO2 POC ABG pO2 ABG Hemoglobin ABG Oxyhemoglobin ABG Sodium ABG Potassium ABG Chloride ABG Glucose Carboxyhemoglobin Sodium Chloride 91.0 L Carbon Dioxide 34 H BUN 47 H Creatinine 1.7 H Glucose 190 H POC Glucose 182 H 179 H Lactic Acid Calcium 7.6 L Phosphorus Magnesium Ferritin Total Bilirubin Direct Bilirubin AST ALT Alkaline Phosphatase Ammonia Lactate Dehydrogenase Troponin T C-Reactive Protein Total Protein Albumin Triglycerides Cholesterol HDL Cholesterol Lipase Arterial Blood Glucose Arterial Blood Ionized Calcium Urine WBC (Auto) Salicylates Acetaminophen Coronavirus (PCR) 03/03/21 03/03/21 03/03/21 17:55 19:37 20:57 WBC RBC Hgb Hct MCV MCH RDW Seg Neutrophils % Monocytes % (Manual) Seg Neutrophils # Monocytes # (Manual) PT INR D-Dimer Heparin Anti-Xa Level ABG pH POC ABG pCO2 POC ABG pO2 ABG Hemoglobin ABG Oxyhemoglobin ABG Sodium ABG Potassium ABG Chloride ABG Glucose Carboxyhemoglobin Sodium Chloride Carbon Dioxide BUN Creatinine Glucose POC Glucose 185 H 174 H 175 H Lactic Acid Calcium Phosphorus Magnesium Ferritin Total Bilirubin Direct Bilirubin AST ALT Alkaline Phosphatase Ammonia Lactate Dehydrogenase Troponin T C-Reactive Protein Total Protein Albumin Triglycerides Cholesterol HDL Cholesterol Lipase Arterial Blood Glucose Arterial Blood Ionized Calcium Urine WBC (Auto) Salicylates Acetaminophen Coronavirus (PCR) 03/03/21 03/03/21 03/03/21 22:02 22:56 23:10 WBC RBC Hgb Hct MCV MCH RDW Seg Neutrophils % Monocytes % (Manual) Seg Neutrophils # Monocytes # (Manual) PT INR D-Dimer Heparin Anti-Xa Level 0.75 H ABG pH POC ABG pCO2 POC ABG pO2 ABG Hemoglobin ABG Oxyhemoglobin ABG Sodium ABG Potassium ABG Chloride ABG Glucose Carboxyhemoglobin Sodium Chloride Carbon Dioxide BUN Creatinine Glucose POC Glucose 170 H 160 H Lactic Acid Calcium Phosphorus Magnesium Ferritin Total Bilirubin Direct Bilirubin AST ALT Alkaline Phosphatase Ammonia Lactate Dehydrogenase Troponin T C-Reactive Protein Total Protein Albumin Triglycerides Cholesterol HDL Cholesterol Lipase Arterial Blood Glucose Arterial Blood Ionized Calcium Urine WBC (Auto) Salicylates Acetaminophen Coronavirus (PCR) 03/03/21 03/04/21 03/04/21 23:42 00:52 01:55 WBC RBC Hgb Hct MCV MCH RDW Seg Neutrophils % Monocytes % (Manual) Seg Neutrophils # Monocytes # (Manual) PT INR D-Dimer Heparin Anti-Xa Level ABG pH POC ABG pCO2 POC ABG pO2 ABG Hemoglobin ABG Oxyhemoglobin ABG Sodium ABG Potassium ABG Chloride ABG Glucose Carboxyhemoglobin Sodium Chloride Carbon Dioxide BUN Creatinine Glucose POC Glucose 161 H 167 H 119 H Lactic Acid Calcium Phosphorus Magnesium Ferritin Total Bilirubin Direct Bilirubin AST ALT Alkaline Phosphatase Ammonia Lactate Dehydrogenase Troponin T C-Reactive Protein Total Protein Albumin Triglycerides Cholesterol HDL Cholesterol Lipase Arterial Blood Glucose Arterial Blood Ionized Calcium Urine WBC (Auto) Salicylates Acetaminophen Coronavirus (PCR) 03/04/21 03/04/21 03/04/21 02:58 03:47 04:03 WBC RBC Hgb Hct MCV MCH RDW Seg Neutrophils % Monocytes % (Manual) Seg Neutrophils # Monocytes # (Manual) PT INR D-Dimer Heparin Anti-Xa Level ABG pH POC ABG pCO2 57.3 H POC ABG pO2 63.7 L ABG Hemoglobin 8.4 L ABG Oxyhemoglobin 88.6 L ABG Sodium 132.5 L ABG Potassium 3.2 L ABG Chloride 94.0 L ABG Glucose 129 H Carboxyhemoglobin Sodium Chloride Carbon Dioxide BUN Creatinine Glucose POC Glucose 111 H 122 H Lactic Acid Calcium Phosphorus Magnesium Ferritin Total Bilirubin Direct Bilirubin AST ALT Alkaline Phosphatase Ammonia Lactate Dehydrogenase Troponin T C-Reactive Protein Total Protein Albumin Triglycerides Cholesterol HDL Cholesterol Lipase Arterial Blood Glucose 129 H Arterial Blood Ionized Calcium 3.8 L Urine WBC (Auto) Salicylates Acetaminophen Coronavirus (PCR) 03/04/21 03/04/21 03/04/21 05:15 05:26 05:26 WBC RBC Hgb 7.9 L Hct 23.7 L MCV MCH RDW Seg Neutrophils % Monocytes % (Manual) Seg Neutrophils # Monocytes # (Manual) PT INR D-Dimer Heparin Anti-Xa Level ABG pH POC ABG pCO2 POC ABG pO2 ABG Hemoglobin ABG Oxyhemoglobin ABG Sodium ABG Potassium ABG Chloride ABG Glucose Carboxyhemoglobin Sodium Chloride Carbon Dioxide BUN Creatinine Glucose POC Glucose 127 H Lactic Acid Calcium Phosphorus Magnesium Ferritin Total Bilirubin Direct Bilirubin 0.6 H AST 123 H ALT 105 H Alkaline Phosphatase 232 H Ammonia Lactate Dehydrogenase Troponin T C-Reactive Protein Total Protein 4.8 L Albumin 2.2 L Triglycerides Cholesterol HDL Cholesterol Lipase Arterial Blood Glucose Arterial Blood Ionized Calcium Urine WBC (Auto) Salicylates Acetaminophen Coronavirus (PCR) 03/04/21 03/04/21 03/04/21 05:26 06:01 06:53 WBC RBC Hgb Hct MCV MCH RDW Seg Neutrophils % Monocytes % (Manual) Seg Neutrophils # Monocytes # (Manual) PT INR D-Dimer Heparin Anti-Xa Level 0.71 H ABG pH POC ABG pCO2 POC ABG pO2 ABG Hemoglobin ABG Oxyhemoglobin ABG Sodium ABG Potassium ABG Chloride ABG Glucose Carboxyhemoglobin Sodium Chloride Carbon Dioxide BUN Creatinine Glucose POC Glucose 120 H 117 H Lactic Acid Calcium Phosphorus Magnesium Ferritin Total Bilirubin Direct Bilirubin AST ALT Alkaline Phosphatase Ammonia Lactate Dehydrogenase Troponin T C-Reactive Protein Total Protein Albumin Triglycerides Cholesterol HDL Cholesterol Lipase Arterial Blood Glucose Arterial Blood Ionized Calcium Urine WBC (Auto) Salicylates Acetaminophen Coronavirus (PCR) 03/04/21 03/04/21 03/04/21 07:57 10:17 10:17 WBC RBC 2.51 L Hgb 8.3 L Hct 25.3 L MCV 101 H MCH 33 H RDW 18.5 H Seg Neutrophils % Monocytes % (Manual) Seg Neutrophils # Monocytes # (Manual) PT INR D-Dimer Heparin Anti-Xa Level ABG pH POC ABG pCO2 POC ABG pO2 ABG Hemoglobin ABG Oxyhemoglobin ABG Sodium ABG Potassium ABG Chloride ABG Glucose Carboxyhemoglobin Sodium 136 L Chloride 93.1 L Carbon Dioxide 33 H BUN 46 H Creatinine 1.4 H Glucose 151 H POC Glucose 129 H Lactic Acid Calcium 7.5 L Phosphorus Magnesium Ferritin Total Bilirubin Direct Bilirubin AST 126 H ALT 100 H Alkaline Phosphatase 226 H Ammonia Lactate Dehydrogenase Troponin T C-Reactive Protein Total Protein 5.0 L Albumin 2.2 L Triglycerides Cholesterol HDL Cholesterol Lipase Arterial Blood Glucose Arterial Blood Ionized Calcium Urine WBC (Auto) Salicylates Acetaminophen Coronavirus (PCR) 03/04/21 03/04/21 03/04/21 10:17 10:17 11:26 WBC RBC Hgb Hct MCV MCH RDW Seg Neutrophils % Monocytes % (Manual) Seg Neutrophils # Monocytes # (Manual) PT 15.6 H INR 1.18 H D-Dimer Heparin Anti-Xa Level ABG pH POC ABG pCO2 POC ABG pO2 ABG Hemoglobin ABG Oxyhemoglobin ABG Sodium ABG Potassium ABG Chloride ABG Glucose Carboxyhemoglobin Sodium Chloride Carbon Dioxide BUN Creatinine Glucose POC Glucose 167 H Lactic Acid Calcium Phosphorus Magnesium Ferritin Total Bilirubin Direct Bilirubin AST ALT Alkaline Phosphatase Ammonia Lactate Dehydrogenase Troponin T C-Reactive Protein Total Protein Albumin Triglycerides Cholesterol HDL Cholesterol Lipase 78 H Arterial Blood Glucose Arterial Blood Ionized Calcium Urine WBC (Auto) Salicylates Acetaminophen Coronavirus (PCR) 03/04/21 03/04/21 03/04/21 13:04 16:26 17:58 WBC RBC Hgb 7.7 L Hct 23.2 L MCV MCH RDW Seg Neutrophils % Monocytes % (Manual) Seg Neutrophils # Monocytes # (Manual) PT INR D-Dimer Heparin Anti-Xa Level < 0.10 L ABG pH POC ABG pCO2 POC ABG pO2 ABG Hemoglobin ABG Oxyhemoglobin ABG Sodium ABG Potassium ABG Chloride ABG Glucose Carboxyhemoglobin Sodium Chloride Carbon Dioxide BUN Creatinine Glucose POC Glucose 167 H Lactic Acid Calcium Phosphorus Magnesium Ferritin Total Bilirubin Direct Bilirubin AST ALT Alkaline Phosphatase Ammonia Lactate Dehydrogenase Troponin T C-Reactive Protein Total Protein Albumin Triglycerides Cholesterol HDL Cholesterol Lipase Arterial Blood Glucose Arterial Blood Ionized Calcium Urine WBC (Auto) Salicylates Acetaminophen Coronavirus (PCR) 03/04/21 03/05/21 03/05/21 23:47 04:00 05:06 WBC RBC Hgb Hct MCV MCH RDW Seg Neutrophils % Monocytes % (Manual) Seg Neutrophils # Monocytes # (Manual) PT INR D-Dimer Heparin Anti-Xa Level ABG pH POC ABG pCO2 POC ABG pO2 129.1 H ABG Hemoglobin 8.3 L ABG Oxyhemoglobin ABG Sodium 131.4 L ABG Potassium ABG Chloride 95.0 L ABG Glucose 153 H Carboxyhemoglobin Sodium Chloride Carbon Dioxide BUN Creatinine Glucose POC Glucose 153 H 139 H Lactic Acid Calcium Phosphorus Magnesium Ferritin Total Bilirubin Direct Bilirubin AST ALT Alkaline Phosphatase Ammonia Lactate Dehydrogenase Troponin T C-Reactive Protein Total Protein Albumin Triglycerides Cholesterol HDL Cholesterol Lipase Arterial Blood Glucose 153 H Arterial Blood Ionized Calcium Urine WBC (Auto) Salicylates Acetaminophen Coronavirus (PCR) 03/05/21 03/05/21 03/05/21 11:43 13:35 13:35 WBC RBC 2.38 L Hgb 7.8 L Hct 23.8 L MCV 100 H MCH 33 H RDW 18.2 H Seg Neutrophils % Monocytes % (Manual) Seg Neutrophils # Monocytes # (Manual) PT INR D-Dimer Heparin Anti-Xa Level ABG pH POC ABG pCO2 POC ABG pO2 ABG Hemoglobin ABG Oxyhemoglobin ABG Sodium ABG Potassium ABG Chloride ABG Glucose Carboxyhemoglobin Sodium Chloride 94.4 L Carbon Dioxide BUN 49 H Creatinine 1.6 H Glucose 165 H POC Glucose 174 H Lactic Acid Calcium 7.5 L Phosphorus Magnesium Ferritin Total Bilirubin Direct Bilirubin AST ALT Alkaline Phosphatase Ammonia Lactate Dehydrogenase Troponin T C-Reactive Protein Total Protein Albumin Triglycerides Cholesterol HDL Cholesterol Lipase Arterial Blood Glucose Arterial Blood Ionized Calcium Urine WBC (Auto) Salicylates Acetaminophen Coronavirus (PCR) 03/05/21 03/05/21 03/05/21 17:57 21:27 Unknown WBC RBC Hgb Hct MCV MCH RDW Seg Neutrophils % Monocytes % (Manual) Seg Neutrophils # Monocytes # (Manual) PT INR D-Dimer Heparin Anti-Xa Level ABG pH POC ABG pCO2 POC ABG pO2 ABG Hemoglobin ABG Oxyhemoglobin ABG Sodium ABG Potassium ABG Chloride ABG Glucose Carboxyhemoglobin Sodium Chloride Carbon Dioxide BUN Creatinine Glucose POC Glucose 129 H 129 H Lactic Acid Calcium Phosphorus Magnesium Ferritin Total Bilirubin Direct Bilirubin AST ALT Alkaline Phosphatase Ammonia Lactate Dehydrogenase Troponin T C-Reactive Protein Total Protein Albumin Triglycerides Cholesterol HDL Cholesterol Lipase Arterial Blood Glucose Arterial Blood Ionized Calcium Urine WBC (Auto) Salicylates Acetaminophen Coronavirus (PCR) Positive A 03/06/21 03/06/21 03/06/21 03:30 04:30 05:20 WBC 15.2 H RBC 2.48 L Hgb 8.2 L Hct 24.9 L MCV 100 H MCH 33 H RDW 18.6 H Seg Neutrophils % 72.6 H Monocytes % (Manual) Seg Neutrophils # 11.1 H Monocytes # (Manual) PT INR D-Dimer Heparin Anti-Xa Level ABG pH POC ABG pCO2 49.7 H POC ABG pO2 65.1 L ABG Hemoglobin 9.1 L ABG Oxyhemoglobin 90.2 L ABG Sodium 131.2 L ABG Potassium ABG Chloride 96.0 L ABG Glucose 133 H Carboxyhemoglobin Sodium Chloride Carbon Dioxide BUN Creatinine Glucose POC Glucose Lactic Acid Calcium Phosphorus Magnesium Ferritin Total Bilirubin Direct Bilirubin AST ALT Alkaline Phosphatase Ammonia Lactate Dehydrogenase Troponin T C-Reactive Protein 27.90 H Total Protein Albumin Triglycerides Cholesterol HDL Cholesterol Lipase Arterial Blood Glucose 133 H Arterial Blood Ionized Calcium 4.2 L Urine WBC (Auto) Salicylates Acetaminophen Coronavirus (PCR) 03/06/21 03/06/21 03/06/21 05:20 05:30 11:52 WBC RBC Hgb Hct MCV MCH RDW Seg Neutrophils % Monocytes % (Manual) Seg Neutrophils # Monocytes # (Manual) PT INR D-Dimer Heparin Anti-Xa Level ABG pH POC ABG pCO2 POC ABG pO2 ABG Hemoglobin ABG Oxyhemoglobin ABG Sodium ABG Potassium ABG Chloride ABG Glucose Carboxyhemoglobin Sodium 135 L Chloride 94.5 L Carbon Dioxide BUN 49 H Creatinine Glucose 121 H POC Glucose 123 H 123 H Lactic Acid Calcium 7.3 L Phosphorus Magnesium 1.50 L Ferritin Total Bilirubin Direct Bilirubin AST 120 H ALT 74 H Alkaline Phosphatase 306 H Ammonia Lactate Dehydrogenase Troponin T C-Reactive Protein Total Protein 4.5 L Albumin 2.0 L Triglycerides Cholesterol HDL Cholesterol Lipase Arterial Blood Glucose Arterial Blood Ionized Calcium Urine WBC (Auto) Salicylates Acetaminophen Coronavirus (PCR) 03/06/21 03/06/21 03/06/21 14:34 17:45 23:36 WBC RBC Hgb Hct MCV MCH RDW Seg Neutrophils % Monocytes % (Manual) Seg Neutrophils # Monocytes # (Manual) PT INR D-Dimer Heparin Anti-Xa Level ABG pH POC ABG pCO2 POC ABG pO2 ABG Hemoglobin ABG Oxyhemoglobin ABG Sodium ABG Potassium ABG Chloride ABG Glucose Carboxyhemoglobin Sodium Chloride Carbon Dioxide BUN Creatinine Glucose POC Glucose 140 H 209 H Lactic Acid Calcium Phosphorus Magnesium Ferritin Total Bilirubin Direct Bilirubin AST ALT Alkaline Phosphatase Ammonia Lactate Dehydrogenase Troponin T C-Reactive Protein Total Protein Albumin Triglycerides Cholesterol HDL Cholesterol Lipase Arterial Blood Glucose Arterial Blood Ionized Calcium Urine WBC (Auto) 103.0 H Salicylates Acetaminophen Coronavirus (PCR) 03/07/21 03/07/21 03/07/21 03:00 05:32 08:16 WBC RBC Hgb Hct MCV MCH RDW Seg Neutrophils % Monocytes % (Manual) Seg Neutrophils # Monocytes # (Manual) PT INR D-Dimer Heparin Anti-Xa Level ABG pH POC ABG pCO2 POC ABG pO2 ABG Hemoglobin 8.9 L ABG Oxyhemoglobin ABG Sodium 131.4 L ABG Potassium ABG Chloride ABG Glucose 224 H Carboxyhemoglobin Sodium 136 L Chloride 95.3 L Carbon Dioxide BUN 45 H Creatinine Glucose 210 H POC Glucose 213 H Lactic Acid Calcium 8.0 L Phosphorus Magnesium Ferritin Total Bilirubin 1.30 H Direct Bilirubin AST 144 H ALT 66 H Alkaline Phosphatase 335 H Ammonia Lactate Dehydrogenase Troponin T C-Reactive Protein Total Protein 4.9 L Albumin 2.1 L Triglycerides Cholesterol HDL Cholesterol Lipase Arterial Blood Glucose 224 H Arterial Blood Ionized Calcium 4.3 L Urine WBC (Auto) Salicylates Acetaminophen Coronavirus (PCR) 07/03/07/21 03/07/21 08:16 08:16 08:16 WBC RBC 2.47 L Hgb 8.2 L Hct 24.6 L MCV 100 H MCH 33 H RDW 18.1 H Seg Neutrophils % Monocytes % (Manual) Seg Neutrophils # Monocytes # (Manual) PT INR D-Dimer 403.72 H Heparin Anti-Xa Level ABG pH POC ABG pCO2 POC ABG pO2 ABG Hemoglobin ABG Oxyhemoglobin ABG Sodium ABG Potassium ABG Chloride ABG Glucose Carboxyhemoglobin Sodium Chloride Carbon Dioxide BUN Creatinine Glucose POC Glucose Lactic Acid Calcium Phosphorus Magnesium Ferritin Total Bilirubin Direct Bilirubin AST ALT Alkaline Phosphatase Ammonia Lactate Dehydrogenase 453 H Troponin T C-Reactive Protein 32.50 H Total Protein Albumin Triglycerides Cholesterol HDL Cholesterol Lipase Arterial Blood Glucose Arterial Blood Ionized Calcium Urine WBC (Auto) Salicylates Acetaminophen Coronavirus (PCR) 03/07/21 03/07/21 03/07/21 08:16 11:24 17:22 WBC RBC Hgb Hct MCV MCH RDW Seg Neutrophils % Monocytes % (Manual) Seg Neutrophils # Monocytes # (Manual) PT INR D-Dimer Heparin Anti-Xa Level ABG pH POC ABG pCO2 POC ABG pO2 ABG Hemoglobin ABG Oxyhemoglobin ABG Sodium ABG Potassium ABG Chloride ABG Glucose Carboxyhemoglobin Sodium Chloride Carbon Dioxide BUN Creatinine Glucose POC Glucose 205 H 211 H Lactic Acid Calcium Phosphorus Magnesium Ferritin > 2000.0 H Total Bilirubin Direct Bilirubin AST ALT Alkaline Phosphatase Ammonia Lactate Dehydrogenase Troponin T C-Reactive Protein Total Protein Albumin Triglycerides Cholesterol HDL Cholesterol Lipase Arterial Blood Glucose Arterial Blood Ionized Calcium Urine WBC (Auto) Salicylates Acetaminophen Coronavirus (PCR) 03/07/21 03/08/21 03/08/21 Unknown 00:05 04:00 WBC RBC Hgb Hct MCV MCH RDW Seg Neutrophils % Monocytes % (Manual) Seg Neutrophils # Monocytes # (Manual) PT INR D-Dimer Heparin Anti-Xa Level 0.94 H ABG pH 7.452 H POC ABG pCO2 POC ABG pO2 75.5 L ABG Hemoglobin 10.0 L ABG Oxyhemoglobin 93.5 L ABG Sodium 134.7 L ABG Potassium ABG Chloride ABG Glucose 268 H Carboxyhemoglobin 0.3 L Sodium Chloride Carbon Dioxide BUN Creatinine Glucose POC Glucose 253 H Lactic Acid Calcium Phosphorus Magnesium Ferritin Total Bilirubin Direct Bilirubin AST ALT Alkaline Phosphatase Ammonia Lactate Dehydrogenase Troponin T C-Reactive Protein Total Protein Albumin Triglycerides Cholesterol HDL Cholesterol Lipase Arterial Blood Glucose 268 H Arterial Blood Ionized Calcium 4.5 L Urine WBC (Auto) Salicylates Acetaminophen Coronavirus (PCR) 03/08/21 03/08/21 03/08/21 05:27 06:10 06:10 WBC RBC 2.62 L Hgb 8.4 L Hct 26.0 L MCV 100 H MCH RDW 18.0 H Seg Neutrophils % Monocytes % (Manual) Seg Neutrophils # Monocytes # (Manual) PT INR D-Dimer Heparin Anti-Xa Level ABG pH POC ABG pCO2 POC ABG pO2 ABG Hemoglobin ABG Oxyhemoglobin ABG Sodium ABG Potassium ABG Chloride ABG Glucose Carboxyhemoglobin Sodium Chloride Carbon Dioxide BUN 49 H Creatinine Glucose 280 H POC Glucose 273 H Lactic Acid Calcium Phosphorus Magnesium Ferritin Total Bilirubin Direct Bilirubin AST 130 H ALT 68 H Alkaline Phosphatase 440 H Ammonia Lactate Dehydrogenase Troponin T C-Reactive Protein Total Protein 5.3 L Albumin 1.9 L Triglycerides Cholesterol HDL Cholesterol Lipase Arterial Blood Glucose Arterial Blood Ionized Calcium Urine WBC (Auto) Salicylates Acetaminophen Coronavirus (PCR) 03/08/21 03/08/21 03/08/21 11:27 17:56 23:20 WBC RBC Hgb Hct MCV MCH RDW Seg Neutrophils % Monocytes % (Manual) Seg Neutrophils # Monocytes # (Manual) PT INR D-Dimer Heparin Anti-Xa Level ABG pH POC ABG pCO2 POC ABG pO2 ABG Hemoglobin ABG Oxyhemoglobin ABG Sodium ABG Potassium ABG Chloride ABG Glucose Carboxyhemoglobin Sodium Chloride Carbon Dioxide BUN Creatinine Glucose POC Glucose 258 H 279 H 289 H Lactic Acid Calcium Phosphorus Magnesium Ferritin Total Bilirubin Direct Bilirubin AST ALT Alkaline Phosphatase Ammonia Lactate Dehydrogenase Troponin T C-Reactive Protein Total Protein Albumin Triglycerides Cholesterol HDL Cholesterol Lipase Arterial Blood Glucose Arterial Blood Ionized Calcium Urine WBC (Auto) Salicylates Acetaminophen Coronavirus (PCR) 03/09/21 03/09/21 03/09/21 04:00 05:12 08:00 WBC RBC Hgb Hct MCV MCH RDW Seg Neutrophils % Monocytes % (Manual) Seg Neutrophils # Monocytes # (Manual) PT INR D-Dimer 249.59 H Heparin Anti-Xa Level ABG pH 7.456 H POC ABG pCO2 POC ABG pO2 ABG Hemoglobin 8.9 L ABG Oxyhemoglobin ABG Sodium 135.6 L ABG Potassium ABG Chloride ABG Glucose 298 H Carboxyhemoglobin 0.3 L Sodium Chloride Carbon Dioxide BUN Creatinine Glucose POC Glucose 267 H Lactic Acid Calcium Phosphorus Magnesium Ferritin Total Bilirubin Direct Bilirubin AST ALT Alkaline Phosphatase Ammonia Lactate Dehydrogenase Troponin T C-Reactive Protein Total Protein Albumin Triglycerides Cholesterol HDL Cholesterol Lipase Arterial Blood Glucose 298 H Arterial Blood Ionized Calcium 4.5 L Urine WBC (Auto) Salicylates Acetaminophen Coronavirus (PCR) 03/09/21 03/09/21 03/09/21 08:00 08:00 08:00 WBC RBC Hgb Hct MCV MCH RDW Seg Neutrophils % Monocytes % (Manual) Seg Neutrophils # Monocytes # (Manual) PT INR D-Dimer Heparin Anti-Xa Level ABG pH POC ABG pCO2 POC ABG pO2 ABG Hemoglobin ABG Oxyhemoglobin ABG Sodium ABG Potassium ABG Chloride ABG Glucose Carboxyhemoglobin Sodium Chloride Carbon Dioxide BUN 44 H Creatinine Glucose 289 H POC Glucose Lactic Acid Calcium Phosphorus Magnesium Ferritin 2743.0 H Total Bilirubin Direct Bilirubin AST 134 H ALT 62 H Alkaline Phosphatase 527 H Ammonia Lactate Dehydrogenase 459 H Troponin T C-Reactive Protein 10.60 H Total Protein 5.0 L Albumin 2.2 L Triglycerides Cholesterol HDL Cholesterol Lipase Arterial Blood Glucose Arterial Blood Ionized Calcium Urine WBC (Auto) Salicylates Acetaminophen Coronavirus (PCR) 03/09/21 03/09/21 03/09/21 08:00 11:52 18:05 WBC RBC 2.60 L Hgb 8.5 L Hct 25.5 L MCV 98 H MCH 33 H RDW 18.1 H Seg Neutrophils % Monocytes % (Manual) Seg Neutrophils # Monocytes # (Manual) PT INR D-Dimer Heparin Anti-Xa Level ABG pH POC ABG pCO2 POC ABG pO2 ABG Hemoglobin ABG Oxyhemoglobin ABG Sodium ABG Potassium ABG Chloride ABG Glucose Carboxyhemoglobin Sodium Chloride Carbon Dioxide BUN Creatinine Glucose POC Glucose 306 H 293 H Lactic Acid Calcium Phosphorus Magnesium Ferritin Total Bilirubin Direct Bilirubin AST ALT Alkaline Phosphatase Ammonia Lactate Dehydrogenase Troponin T C-Reactive Protein Total Protein Albumin Triglycerides Cholesterol HDL Cholesterol Lipase Arterial Blood Glucose Arterial Blood Ionized Calcium Urine WBC (Auto) Salicylates Acetaminophen Coronavirus (PCR) 03/09/21 03/10/21 03/10/21 23:21 04:38 05:25 WBC RBC Hgb 8.6 L Hct 26.0 L MCV MCH RDW Seg Neutrophils % Monocytes % (Manual) Seg Neutrophils # Monocytes # (Manual) PT INR D-Dimer Heparin Anti-Xa Level ABG pH POC ABG pCO2 POC ABG pO2 ABG Hemoglobin ABG Oxyhemoglobin ABG Sodium ABG Potassium ABG Chloride ABG Glucose Carboxyhemoglobin Sodium Chloride Carbon Dioxide BUN Creatinine Glucose POC Glucose 306 H 310 H Lactic Acid Calcium Phosphorus Magnesium Ferritin Total Bilirubin Direct Bilirubin AST ALT Alkaline Phosphatase Ammonia Lactate Dehydrogenase Troponin T C-Reactive Protein Total Protein Albumin Triglycerides Cholesterol HDL Cholesterol Lipase Arterial Blood Glucose Arterial Blood Ionized Calcium Urine WBC (Auto) Salicylates Acetaminophen Coronavirus (PCR) 03/10/21 03/10/21 03/10/21 05:25 12:33 12:52 WBC RBC Hgb Hct MCV MCH RDW Seg Neutrophils % Monocytes % (Manual) Seg Neutrophils # Monocytes # (Manual) PT INR D-Dimer Heparin Anti-Xa Level ABG pH 7.487 H POC ABG pCO2 POC ABG pO2 62.1 L ABG Hemoglobin 9.4 L ABG Oxyhemoglobin 89.7 L ABG Sodium ABG Potassium ABG Chloride ABG Glucose 350 H Carboxyhemoglobin 0.2 L Sodium Chloride Carbon Dioxide 32 H BUN 45 H Creatinine Glucose 341 H POC Glucose 340 H Lactic Acid Calcium Phosphorus Magnesium Ferritin Total Bilirubin Direct Bilirubin AST ALT Alkaline Phosphatase Ammonia Lactate Dehydrogenase Troponin T C-Reactive Protein Total Protein Albumin Triglycerides Cholesterol HDL Cholesterol Lipase Arterial Blood Glucose 350 H Arterial Blood Ionized Calcium Urine WBC (Auto) Salicylates Acetaminophen Coronavirus (PCR) 03/10/21 03/10/21 03/11/21 17:05 22:57 04:58 WBC RBC Hgb Hct MCV MCH RDW Seg Neutrophils % Monocytes % (Manual) Seg Neutrophils # Monocytes # (Manual) PT INR D-Dimer Heparin Anti-Xa Level ABG pH POC ABG pCO2 POC ABG pO2 ABG Hemoglobin ABG Oxyhemoglobin ABG Sodium ABG Potassium ABG Chloride ABG Glucose Carboxyhemoglobin Sodium Chloride Carbon Dioxide BUN Creatinine Glucose POC Glucose 298 H 241 H 261 H Lactic Acid Calcium Phosphorus Magnesium Ferritin Total Bilirubin Direct Bilirubin AST ALT Alkaline Phosphatase Ammonia Lactate Dehydrogenase Troponin T C-Reactive Protein Total Protein Albumin Triglycerides Cholesterol HDL Cholesterol Lipase Arterial Blood Glucose Arterial Blood Ionized Calcium Urine WBC (Auto) Salicylates Acetaminophen Coronavirus (PCR) 03/11/21 03/11/21 03/11/21 06:54 06:54 06:54 WBC RBC Hgb Hct MCV MCH RDW Seg Neutrophils % Monocytes % (Manual) Seg Neutrophils # Monocytes # (Manual) PT INR D-Dimer 238.43 H Heparin Anti-Xa Level ABG pH POC ABG pCO2 POC ABG pO2 ABG Hemoglobin ABG Oxyhemoglobin ABG Sodium ABG Potassium ABG Chloride ABG Glucose Carboxyhemoglobin Sodium 146 H Chloride Carbon Dioxide 31 H BUN 41 H Creatinine Glucose 255 H POC Glucose Lactic Acid Calcium Phosphorus Magnesium Ferritin 3346.0 H Total Bilirubin Direct Bilirubin AST ALT Alkaline Phosphatase Ammonia Lactate Dehydrogenase 557 H Troponin T C-Reactive Protein 4.70 H Total Protein Albumin Triglycerides Cholesterol HDL Cholesterol Lipase Arterial Blood Glucose Arterial Blood Ionized Calcium Urine WBC (Auto) Salicylates Acetaminophen Coronavirus (PCR) 03/11/21 06:54 WBC RBC 2.76 L Hgb 8.9 L Hct 27.0 L MCV 98 H MCH RDW 18.3 H Seg Neutrophils % Monocytes % (Manual) Seg Neutrophils # Monocytes # (Manual) PT INR D-Dimer Heparin Anti-Xa Level ABG pH POC ABG pCO2 POC ABG pO2 ABG Hemoglobin ABG Oxyhemoglobin ABG Sodium ABG Potassium ABG Chloride ABG Glucose Carboxyhemoglobin Sodium Chloride Carbon Dioxide BUN Creatinine Glucose POC Glucose Lactic Acid Calcium Phosphorus Magnesium Ferritin Total Bilirubin Direct Bilirubin AST ALT Alkaline Phosphatase Ammonia Lactate Dehydrogenase Troponin T C-Reactive Protein Total Protein Albumin Triglycerides Cholesterol HDL Cholesterol Lipase Arterial Blood Glucose Arterial Blood Ionized Calcium Urine WBC (Auto) Salicylates Acetaminophen Coronavirus (PCR) Chest x-ray: other (none today) Allied health notes reviewed: nursing
[2021-03-11] MEDS: dexAMETHasone 4 MG/ML VIAL IV SCH (11:25)
[2021-03-11] MEDS ORDERED: FUROSEMIDE 40 MG/4 ML INJ IV NR (11:41)
[2021-03-11] MEDS: INSULIN REGULAR, HUMAN 100 UNITS/1 ML SUB-Q SCH (12:08)
--- NOTE | 2021-03-11 12:18 | Progress Note ---
Assessment and Plan Cultures: SARS CoV2 PCR: Positive MRSA nasal PCR: Positive 03/01/2021 blood culture: No growth 03/01/2021 urine culture: No growth 03/02/2021 tracheal aspirate: [place] albicans 03/06/2021 blood culture: no growth 03/06/2021 urine culture: No growth A/P: 51-year-old male with COPD, chronic respiratory failure, CHF, diabetes, DVT/PE, morbid obesity on anticoagulation was admitted to the hospital on 03/01/2021 with altered mental status and shortness of breath: #Bilateral pneumonia: secondary to COVID-19. Completed empiric antibiotics. #Acute hypoxic respiratory failure: Now extubated #Morbid obesity #Acute on chronic CHF #Transaminitis: Likely from COVID-19. Elevated LFTs with elevated alkaline phosphatase: RUQ ultrasound did not reveal any evidence of cholelithiasis, cholecystitis or choledocholithiasis. #Acute RLE DVT: On anticoagulation Recs: -IV/PO Dexamethasone 10 mg daily x 10 days, higher dose due to morbid obesity. Ending 03/15/2021 -Completed Remdesivir -Completed empiric antibiotics -on anticoagulation Kamar Schrader MD [facility] ([facility] O: [phone] F: [phone] Subjective Date of service: 03/11/21 Principal diagnosis: Ac hypoxemic resp failure; NSTEMI; ALPHONSO; Sepsis; PNA; CHF; DM II; AMS Interval history: Afebrile, normal white count. Now extubated. Objective - Exam Narrative Exam: Physical exam deferred to reduce risk of transmission of COVID-19. Please refer to primary team's note. - Constitutional Vitals: Vital Signs Temp Pulse Resp BP Pulse Ox 97.7 F 94 H 16 205/110 94 03/11/21 11:51 03/11/21 10:00 03/11/21 10:00 03/11/21 09:12 03/11/21 10:00 Temperature -Last 24 Hours Temperature 97.7 F Temperature 98.5 F Temperature 98.9 F Temperature 98.8 F Temperature 98.6 F - Labs CBC & Chem 7: 03/11/21 06:54 03/11/21 06:54 Labs: Abnormal lab results 03/10/21 03/10/21 03/10/21 Range/Units 12:33 12:52 17:05 RBC (3.65-5.03) M/mm3 Hgb (11.8-15.2) gm/dl Hct (35.5-45.6) % MCV (84-94) fl RDW (13.2-15.2) % D-Dimer (0-234) ng/mlDDU ABG pH 7.487 H (7.320-7.450) POC ABG pO2 62.1 L (83-108) mmHg ABG Hemoglobin 9.4 L (12.0-17.5) ABG Oxyhemoglobin 89.7 L (94-98) ABG Glucose 350 H (65-95) mg/dL Carboxyhemoglobin 0.2 L (0.5-1.5) Sodium (137-145) mmol/L Carbon Dioxide (22-30) mmol/L BUN (9-20) mg/dL Glucose (75-100) mg/dL POC Glucose 340 H 298 H (70-105) mg/dL Ferritin (30.0-300.0) ng/mL Lactate Dehydrogenase (91-180) units/L C-Reactive Protein (0.00-1.30) mg/dL Arterial Blood Glucose 350 H (65-95) mg/dL 03/10/21 03/11/21 03/11/21 Range/Units 22:57 04:58 06:54 RBC (3.65-5.03) M/mm3 Hgb (11.8-15.2) gm/dl Hct (35.5-45.6) % MCV (84-94) fl RDW (13.2-15.2) % D-Dimer 238.43 H (0-234) ng/mlDDU ABG pH (7.320-7.450) POC ABG pO2 (83-108) mmHg ABG Hemoglobin (12.0-17.5) ABG Oxyhemoglobin (94-98) ABG Glucose (65-95) mg/dL Carboxyhemoglobin (0.5-1.5) Sodium (137-145) mmol/L Carbon Dioxide (22-30) mmol/L BUN (9-20) mg/dL Glucose (75-100) mg/dL POC Glucose 241 H 261 H (70-105) mg/dL Ferritin (30.0-300.0) ng/mL Lactate Dehydrogenase (91-180) units/L C-Reactive Protein (0.00-1.30) mg/dL Arterial Blood Glucose (65-95) mg/dL 03/11/21 03/11/21 03/11/21 Range/Units 06:54 06:54 06:54 RBC 2.76 L (3.65-5.03) M/mm3 Hgb 8.9 L (11.8-15.2) gm/dl Hct 27.0 L (35.5-45.6) % MCV 98 H (84-94) fl RDW 18.3 H (13.2-15.2) % D-Dimer (0-234) ng/mlDDU ABG pH (7.320-7.450) POC ABG pO2 (83-108) mmHg ABG Hemoglobin (12.0-17.5) ABG Oxyhemoglobin (94-98) ABG Glucose (65-95) mg/dL Carboxyhemoglobin (0.5-1.5) Sodium 146 H (137-145) mmol/L Carbon Dioxide 31 H (22-30) mmol/L BUN 41 H (9-20) mg/dL Glucose 255 H (75-100) mg/dL POC Glucose (70-105) mg/dL Ferritin 3346.0 H (30.0-300.0) ng/mL Lactate Dehydrogenase 557 H (91-180) units/L C-Reactive Protein 4.70 H (0.00-1.30) mg/dL Arterial Blood Glucose (65-95) mg/dL 03/11/21 Range/Units 11:25 RBC (3.65-5.03) M/mm3 Hgb (11.8-15.2) gm/dl Hct (35.5-45.6) % MCV (84-94) fl RDW (13.2-15.2) % D-Dimer (0-234) ng/mlDDU ABG pH (7.320-7.450) POC ABG pO2 (83-108) mmHg ABG Hemoglobin (12.0-17.5) ABG Oxyhemoglobin (94-98) ABG Glucose (65-95) mg/dL Carboxyhemoglobin (0.5-1.5) Sodium (137-145) mmol/L Carbon Dioxide (22-30) mmol/L BUN (9-20) mg/dL Glucose (75-100) mg/dL POC Glucose 255 H (70-105) mg/dL Ferritin (30.0-300.0) ng/mL Lactate Dehydrogenase (91-180) units/L C-Reactive Protein (0.00-1.30) mg/dL Arterial Blood Glucose (65-95) mg/dL
--- NOTE | 2021-03-11 12:48 | Progress Note ---
Assessment and Plan Hypertension * Patient currently on labetolol 100mg BID HFpEF * Echo 12/13/2020 - EF 55-60%, otherwise technically difficult study. * Echo 05/2016 - LV mildly dilated, EF 55-60%, grade II diastolic dysfxn, RV mildly enlarged, normal RV sys fxn, LA mildly dilated, RA mildly dilated, mild-mod AR, mild TN, mild aortic root dilatation. * May benefit from addition of gentle IV diuresis when hemodynamically stable. COVID-19 PNA Acute hypoxic resporitary failure * Patient positive for COVID-19 * Secondary to pna * Pulmonology and infectious disease are following DVT of RLE * Patient on Enoxaparin 130mg SQ BID . Plan to transition to Coumadin once patient is hemodynamically stable * He was diagnosed with a LLE DVT in March 2020 and appears to have been on Coumadin as an outpatient. Trend cardiac enzymes .Patient seen in conjunction with Dr. Lassiter who agrees with this plan of care. Will continue to follow. - Patient Problems (1) ALPHONSO (acute kidney injury) Current Visit: Yes Status: Acute (2) Acute and chronic respiratory failure ([id number]) Current Visit: Yes Status: Acute (3) Acute deep vein thrombosis (DVT) of right lower extremity Current Visit: Yes Status: Acute (4) Encephalopathy Current Visit: Yes Status: Acute (5) NSTEMI (non-ST elevated myocardial infarction) Current Visit: Yes Status: Acute (6) Transaminitis Current Visit: Yes Status: Acute (7) COPD (chronic obstructive pulmonary disease) Current Visit: Yes Status: Chronic (8) Chronic heart failure with preserved ejection fraction (HFpEF) Current Visit: Yes Status: Chronic (9) DM2 (diabetes mellitus, type 2) Current Visit: Yes Status: Chronic (10) H/O: HTN (hypertension) Current Visit: Yes Status: Chronic (11) History of pulmonary embolus (PE) Current Visit: Yes Status: Chronic (12) COVID-19 Current Visit: Yes Status: Acute Subjective Principal diagnosis: Ac hypoxemic resp failure; NSTEMI; ALPHONSO; Sepsis; PNA; CHF; DM II; AMS Interval history: Patient extubated. Sinus tachy 100s on monitor with no events Objective Last Vital Signs Temp 97.7 F 03/11/21 11:51 Pulse 112 H 03/11/21 12:00 Resp 20 03/11/21 12:00 BP 205/110 03/11/21 09:12 Pulse Ox 93 03/11/21 12:32 - Physical Examination General: No Apparent Distress, Other (intubated) HEENT: Positive: Normocephaly Neck: Positive: trachea midline Cardiac: Positive: Regular Rhythm, Tachycardia Neuro: Positive: Grossly Intact, Other (intubated) Abdomen: Positive: Soft Skin: Negative: Rash Incision: Cardiac Cath Site Musculoskeletal: No Fluid Collection Extremities: Present: lower extr. pulses, +2 Edema, warm, Other (anasarca) - Labs and Meds Cardiac Enzymes 03/11/21 Range/Units 06:54 Lactate Dehydrogenase 557 H (91-180) units/L CBC 03/11/21 Range/Units 06:54 WBC 9.6 (4.5-11.0) K/mm3 RBC 2.76 L (3.65-5.03) M/mm3 Hgb 8.9 L (11.8-15.2) gm/dl Hct 27.0 L (35.5-45.6) % Plt Count 233 (140-440) K/mm3 Comprehensive Metabolic Panel 03/11/21 Range/Units 06:54 Sodium 146 H (137-145) mmol/L Potassium 4.0 (3.6-5.0) mmol/L Chloride 103.9 (98-107) mmol/L Carbon Dioxide 31 H (22-30) mmol/L BUN 41 H (9-20) mg/dL Creatinine 0.8 (0.8-1.3) mg/dL Glucose 255 H (75-100) mg/dL Calcium 9.4 (8.4-10.2) mg/dL - Imaging and Cardiology EKG: report reviewed, image reviewed Echo: report reviewed (12/2020 - EF 55-60%) Cardiac cath: pending - Telemetry EKG Rhythm: Sinus Tachycardia - EKG Sinus rhythms and dysrhythmias: sinus tachycardia AV and intraventricular conduction: right bundle branch block Repolarization changes or abnormalities: nonspecific abnormality, ST segment, and/or T wave - Allied health notes Allied health notes reviewed: RT
[2021-03-11] MEDS: hydrALAZINE 25 MG TAB PO SCH ×2 (13:42→20:00)
--- NOTE | 2021-03-11 14:56 | Progress Note ---
Assessment and Plan Assessment and plan: This is a a 51 year old male admitted for for severe sepsis, respiratory failure, pneumonia and ALPHONSO. PMH: COPD, CHF, DM, DVT/PE, HTN, KAM, obesity, asthma PSx: none reported home meds: albuterol sulfate, advair, HCTZ, atrovent, glucophage, Klor-Con, midodrine, metoprolol, lasix, lantus, coumadin (from audit and home meds reconciliation) Social: unknown A/P Neuro: Metabolic encephalopathy -Resolved. -Now extbated Cardio: SR/ST: Acute on Chronic HFpEF (per cards), NSTEMI, h/o HTN, HLD, Prolonged QTc -Cardiology consulted, appreciate recommendations -midodrine d/c r/t HTN -BP monitoring per protocol -Labetalol PO -Per cardiology: 1. gentle IV diuresis when able 2. Echo 12/13/2020 - EF 55-60%, otherwise technically difficult study. Echo 05/2016 - LV mildly dilated, EF 55-60%, grade II diastolic dysfxn, RV mildly enlarged, normal RV sys fxn, LA mildly dilated, RA mildly dilated, mild-mod AR, mild [place], mild aortic root dilatation. Resp: Acute on chronic hypoxic respiratory failure, Bilateral PNA, hx COPD, KAM, asthma, ?PE -CCM consulted, appreciate recommendations -MV, wean as tolerated -Intubated 03/01, tube exchange 03/09 OETT 8/0 @ 25 lip -nOW EXTUBATED 03/10 -Continuos SPO2 monitoring -abx with levaquin (03/02-03/07)-DC 03/05 r/t prolonged QTc -03/01 CT chest shows several pulmonary nodules within Right lung measuring 6-8 mm, increased interstitial prominence -? f/u outpt with PCP/pulmanology -03/10 CXR reviewed GI: Transaminitis, TF -GI consulted, appreciate recommendations -Trend LFTs -RUQ US shows no evidence of cholelithiasis, cholecytitis or choledocholithisis -CT abd/pelvis showed fatty infiltration of liver -Ntr consult for TF -PPI -BR [place] -last BM 03/06 -24 hr net (-) 225 : ALPHONSO (stable/resolved) -Nephrology consulted, appreciate recommendations -Pt was on HD at recent hospitalization at OSH -Renally dose mediations -Avoid nephrotoxic medications -Strict I&Os -Renal US shows no significant abnormality -Daily weights -Replete electrolytes -Trend BMP -s/p lasix x 2, prn hydral -Trial lasix again today Heme: DVT-R posterior tibial vein, h/o LLE DVT (December 2019)/ PE (failed Xa inhibitors per cards; on home coumadin) -evidenced on BLE Doppler US -Heparin gtt d/c to lovenox subq (03/09) -SCDs while in bed -Per cards: Eventually plan to transition to Coumadin ID: Severe Sepsis, B PNA, COVID 19 infection -s/p abx therapy (azithromycin 03/01-03/02, aztreonam 03/02, cefepime 03/01-03/02, levaquin 03/02-03/05, flagyl 03/01-03/02, vancomycin 03/01-03/02) -VAP bundle -MRSA (+) nares -COVID 19 PCR (+) -Decadron for 10 days (03/06-03/15) -Remdesivir (03/06-03/10) -Contact/Droplet precautions -03/01 BCx2 with NGTD, UC with NGTD, sputum culture normal sole -03/06 BC NGTD -Prone if needed -Vit C/D/Zinc Endo: DM -SSI, lantus (titrate as needed) -Accuchecks q6 -Avoid hypoglycemia Lines: condom cath, PIV, RADHA Disposition: ICU Full code The high probability of a clinically significant, sudden or life threatening deterioration of the [multi] system(s) required my full and direct attention, intervention and personal management. The aggregate critical care time was [60] minutes. This time is in addition to time spent performing reported procedures but includes the following: [x] Data Review and interpretation [x] Patient assessment and monitoring of vital signs [x] Documentation [x] Medication orders and management History Interval history: This is a 51-year-old -Sammarinese male with COPD with chronic respiratory failure, CHFpEF, diabetes mellitus, DVT/PE on coumadin and hypertension who presented to [facility] via EMS for AMS and hypoxia. On arrival of EMS oxygen sa turation was about 88% on room air, blood pressure was said to be about 88/50 mmHg. Work-up in the emergency room reveals leukocytosis of 12.7, hemoglobin of 9.1 and hematocrit of 27.7, sodium of 132, lactic acid of 2.90, elevated liver enzymes and elevated troponin at 0.493. A CT of the chest showed findings concerning for atelectasis and or infiltrate, CT of the head was unremarkable. Patient was in severe respiratory distress upon arrival in the emergency room and subsequently intubated. Patient was admitted to the hospitalist service with consults to cardiology, CCM, GI, and neprohology for severe sepsis, respiratory failure, pneumonia and ALPHONSO. Of note patient was admitted to [facility] from 12/12-01/14 and was on HD during that admit. 03/03/21: Patient remains intubated, continue on heparin drip, monitor H&H and BMP. Continue empiric antibiotics, ID following. Follow ammonia level and LFT. According to cardiology patient indeed had preserved EF during his recent admission to [place]. Plan to repeat 2D echo. Critical care following, wean off from vent as tolerated. 03/04: RN reported blood y secretions in OETT and clots, heparin gtt stopped and B LE US obtained which shows DVT, abx deescalated, heparin gtt restarted. 03/05: RN reported vomiting x1, promithazine x1 given, Qtc at 599 on EKG. AM labs pending. tmax 102.2, reculture with next spike, COVID 19 PCR. abx stopped re prolonged qtc and received CAP coverage. 03/06: Reported high TF residual, COVID PCR pending. Cr better today. tmax 100.7 03/07: radha placed yesterday, started on remdesivir re positive covid. ID consulted yesterday. SHERYL overnight. 03/08: SHERYL reported overnight. Patient is now hypertensive and midodrine has been held. Will now place on low dose antihtn and prn hydral. 03/09: Patient reportedly through tube and OETT was exchanged, patient was given paralytic for exchange. No acute events reported overnight. Patient noted to be hypertensive and we will trial Lasix again today. 03/10: PSV trial today. fentayl was stopped. BP maintaining. SHERYL overnight. 03/11: Patient was extuabted, awaiting Speech therapy, discussed with nursing staff at bedside, considering Hypertensive urgency, will do a bedside swallow eval and give oral meds if passed. Continue aspiration precautions. The patient has hx of Asthma, continue neb treatment. History Interval history: Patient seen and examined, mild hoarseness noted since extubation, HTN per nursing staff Hospitalist Physical - Physical exam Narrative exam: General appearance: Present: no acute distress, well-nourished, obese, - EENT Eyes: Present: PERRL, EOM intact ENT: clear oral mucosa - Neck Neck: Present: normal ROM - Respiratory Respiratory effort: normal Respiratory: bilateral: diminished - Cardiovascular Rhythm: regular Heart Sounds: Present: S1 & S2. Absent: systolic murmur, diastolic murmur - Extremities Extremities: no ischemia, pulses intact, pulses symmetrical, No edema, normal temperature, normal color - Abdominal General gastrointestinal: soft, non-tender, non-distended, normal bowel sounds - Integumentary Integumentary: Present: clear, warm, dry- see full documentation of skin exam in nursing assessment - Psychiatric Psychiatric: cooperative - Neurologic Neurologic: moves all extremities - Allied Health Allied health notes reviewed: nursing, RT - Constitutional Vitals: Temp Pulse Resp BP Pulse Ox 97.7 F 101 H 17 194/101 83 L 03/11/21 11:51 03/11/21 13:42 03/11/21 13:00 03/11/21 13:42 03/11/21 13:00 General appearance: Present: no acute distress, well-nourished, obese, other (sedated) HEART Score - HEART Score Troponin: Troponin T 0.484 ng/mL (0.00-0.029) H* 03/01/21 20:55 Results - Labs CBC & Chem 7: 03/11/21 06:54 03/11/21 06:54 Labs: Laboratory Last Values WBC 9.6 K/mm3 (4.5-11.0) 03/11/21 06:54 RBC 2.76 M/mm3 (3.65-5.03) L 03/11/21 06:54 Hgb 8.9 gm/dl (11.8-15.2) L 03/11/21 06:54 Hct 27.0 % (35.5-45.6) L 03/11/21 06:54 MCV 98 fl (84-94) H 03/11/21 06:54 MCH 32 pg (28-32) 03/11/21 06:54 MCHC 33 % (32-34) 03/11/21 06:54 RDW 18.3 % (13.2-15.2) H 03/11/21 06:54 Plt Count 233 K/mm3 (140-440) 03/11/21 06:54 Lymph % (Auto) 22.4 % (13.4-35.0) 03/06/21 05:20 [place] % (Auto) 4.5 % (0.0-7.3) 03/06/21 05:20 Eos % (Auto) 0.2 % (0.0-4.3) 03/06/21 05:20 Baso % (Auto) 0.3 % (0.0-1.8) 03/06/21 05:20 Lymph # (Auto) 3.4 K/mm3 (1.2-5.4) 03/06/21 05:20 [place] # (Auto) 0.7 K/mm3 (0.0-0.8) 03/06/21 05:20 Eos # (Auto) 0.0 K/mm3 (0.0-0.4) 03/06/21 05:20 Baso # (Auto) 0.1 K/mm3 (0.0-0.1) 03/06/21 05:20 Add Manual Diff Complete 03/01/21 19:21 Total Counted 100 03/01/21 19:21 Seg Neutrophils % 72.6 % (40.0-70.0) H 03/06/21 05:20 Seg Neuts % (Manual) 49.0 % (40.0-70.0) 03/01/21 19:21 Lymphocytes % (Manual) 32.0 % (13.4-35.0) 03/01/21 19:21 Monocytes % (Manual) 17.0 % (0.0-7.3) H 03/01/21 19:21 Eosinophils % (Manual) 1.0 % (0.0-4.3) 03/01/21 19:21 Basophils % (Manual) 1.0 % (0.0-1.8) 03/01/21 19:21 Nucleated RBC % Not Reportable 03/01/21 19:21 Seg Neutrophils # 11.1 K/mm3 (1.8-7.7) H 03/06/21 05:20 Seg Neutrophils # Man 6.2 K/mm3 (1.8-7.7) 03/01/21 19:21 Band Neutrophils # 0.0 K/mm3 03/01/21 19:21 Lymphocytes # (Manual) 4.1 K/mm3 (1.2-5.4) 03/01/21 19:21 Abs React Lymphs (Man) 0.0 K/mm3 03/01/21 19:21 Monocytes # (Manual) 2.2 K/mm3 (0.0-0.8) H 03/01/21 19:21 Eosinophils # (Manual) 0.1 K/mm3 (0.0-0.4) 03/01/21 19:21 Basophils # (Manual) 0.1 K/mm3 (0.0-0.1) 03/01/21 19:21 Metamyelocytes # 0.0 K/mm3 03/01/21 19:21 Myelocytes # 0.0 K/mm3 03/01/21 19:21 Promyelocytes # 0.0 K/mm3 03/01/21 19:21 Blast Cells # 0.0 K/mm3 03/01/21 19:21 WBC Morphology Not Reportable 03/01/21 19:21 Hypersegmented Neuts Not Reportable 03/01/21 19:21 Hyposegmented Neuts Not Reportable 03/01/21 19:21 Hypogranular Neuts Not Reportable 03/01/21 19:21 Smudge Cells Not Reportable 03/01/21 19:21 Toxic Granulation Not Reportable 03/01/21 19:21 Toxic Vacuolation Not Reportable 03/01/21 19:21 Dohle Bodies Not Reportable 03/01/21 19:21 Pelger-Huet Anomaly Not Reportable 03/01/21 19:21 Katherine Rods Not Reportable 03/01/21 19:21 Platelet Estimate Not Reportable 03/01/21 19:21 Clumped Platelets Not Reportable 03/01/21 19:21 Plt Clumps, EDTA Not Reportable 03/01/21 19:21 Large Platelets Not Reportable 03/01/21 19:21 Giant Platelets Not Reportable 03/01/21 19:21 Platelet Satelliting Not Reportable 03/01/21 19:21 Plt Morphology Comment Not Reportable 03/01/21 19:21 RBC Morphology Not Reportable 03/01/21 19:21 Dimorphic RBCs Not Reportable 03/01/21 19:21 Polychromasia Not Reportable 03/01/21 19:21 Hypochromasia Not Reportable 03/01/21 19:21 Poikilocytosis Not Reportable 03/01/21 19:21 Anisocytosis Rare 03/01/21 19:21 Microcytosis Not Reportable 03/01/21 19:21 Macrocytosis Not Reportable 03/01/21 19:21 Spherocytes Not Reportable 03/01/21 19:21 Pappenheimer Bodies Not Reportable 03/01/21 19:21 Sickle Cells Not Reportable 03/01/21 19:21 Target Cells Not Reportable 03/01/21 19:21 Tear Drop Cells Not Reportable 03/01/21 19:21 Ovalocytes Not Reportable 03/01/21 19:21 Helmet Cells Not Reportable 03/01/21 19:21 [place] Bodies Not Reportable 03/01/21 19:21 [place] Rings Not Reportable 03/01/21 19:21 Dusty Cells Not Reportable 03/01/21 19:21 Bite Cells Not Reportable 03/01/21 19:21 Crenated Cell Not Reportable 03/01/21 19:21 Elliptocytes Not Reportable 03/01/21 19:21 Acanthocytes (Spur) Not Reportable 03/01/21 19:21 Rouleaux Not Reportable 03/01/21 19:21 Hemoglobin C Crystals Not Reportable 03/01/21 19:21 Schistocytes Few 03/01/21 19:21 Malaria parasites Not Reportable 03/01/21 19:21 Henry Bodies Not Reportable 03/01/21 19:21 Hem Pathologist Commnt No 03/01/21 19:21 PT 15.6 Sec. (12.2-14.9) H 03/04/21 10:17 INR 1.18 (0.87-1.13) H 03/04/21 10:17 APTT 36.6 Sec. (24.2-36.6) 03/02/21 16:28 D-Dimer 238.43 ng/mlDDU (0-234) H 03/11/21 06:54 Heparin Anti-Xa Level 0.64 U.I./ml (0.3-0.7) 03/08/21 10:30 ABG pH 7.487 (7.320-7.450) H 03/10/21 12:33 POC ABG pCO2 40.4 mmHg (32.0-48.0) 03/10/21 12:33 POC ABG pO2 62.1 mmHg (83-108) L 03/10/21 12:33 POC ABG HCO3 29.9 03/10/21 12:33 ABG O2 Saturation 90.2 (0-100) 03/10/21 12:33 POC ABG Base Excess 6.0 03/10/21 12:33 ABG Hemoglobin 9.4 (12.0-17.5) L 03/10/21 12:33 ABG Oxyhemoglobin 89.7 (94-98) L 03/10/21 12:33 ABG Methemoglobin 0.3 (0.0-1.5) 03/10/21 12:33 ABG Sodium 138.7 mmol/L (136.0-145.0) 03/10/21 12:33 ABG Potassium 3.7 mmol/L (3.40-4.50) 03/10/21 12:33 ABG Chloride 104.0 mmol/L (98-107) 03/10/21 12:33 ABG Glucose 350 mg/dL (65-95) H 03/10/21 12:33 Carboxyhemoglobin 0.2 (0.5-1.5) L 03/10/21 12:33 FiO2 % 35.0 03/10/21 12:33 Sodium 146 mmol/L (137-145) H 03/11/21 06:54 Potassium 4.0 mmol/L (3.6-5.0) 03/11/21 06:54 Chloride 103.9 mmol/L (98-107) 03/11/21 06:54 Carbon Dioxide 31 mmol/L (22-30) H 03/11/21 06:54 Anion Gap 15 mmol/L 03/11/21 06:54 BUN 41 mg/dL (9-20) H 03/11/21 06:54 Creatinine 0.8 mg/dL (0.8-1.3) 03/11/21 06:54 Estimated GFR > 60 ml/min 03/11/21 06:54 BUN/Creatinine Ratio 51 % 03/11/21 06:54 Glucose 255 mg/dL (75-100) H 03/11/21 06:54 POC Glucose 255 mg/dL (70-105) H 03/11/21 11:25 Lactic Acid 1.70 mmol/L (0.7-2.0) 03/04/21 10:17 Calcium 9.4 mg/dL (8.4-10.2) 03/11/21 06:54 Phosphorus 3.30 mg/dL (2.5-4.5) 03/10/21 05:25 Magnesium 2.00 mg/dL (1.7-2.3) 03/11/21 06:54 Ferritin 3346.0 ng/mL (30.0-300.0) H 03/11/21 06:54 Total Bilirubin 1.20 mg/dL (0.1-1.2) 03/09/21 08:00 Direct Bilirubin 0.6 mg/dL (0-0.2) H 03/04/21 05:26 Indirect Bilirubin 0.2 mg/dL 03/04/21 05:26 AST 134 units/L (5-40) H 03/09/21 08:00 ALT 62 units/L (7-56) H 03/09/21 08:00 Alkaline Phosphatase 527 units/L (35-129) H 03/09/21 08:00 Ammonia 71.0 umol/L (25-60) H 03/01/21 19:21 Lactate Dehydrogenase 557 units/L (91-180) H 03/11/21 06:54 Troponin T 0.484 ng/mL (0.00-0.029) H* 03/01/21 20:55 C-Reactive Protein 4.70 mg/dL (0.00-1.30) H 03/11/21 06:54 Total Protein 5.0 g/dL (6.3-8.2) L 03/09/21 08:00 Albumin 2.2 g/dL (3.9-5) L 03/09/21 08:00 Albumin/Globulin Ratio 0.8 % 03/09/21 08:00 Triglycerides 400 mg/dL (2-149) H 03/01/21 19:21 Cholesterol 232 mg/dL (50-199) H 03/01/21 19:21 LDL Cholesterol Direct 130 mg/dL (50-130) 03/01/21 19:21 HDL Cholesterol 22 mg/dL (40-59) L 03/01/21 19:21 Cholesterol/HDL Ratio 10.54 % 03/01/21 19:21 Lipase 78 units/L (13-60) H 03/04/21 10:17 Procalcitonin 1.18 ng/mL (<0.15) 03/08/21 06:10 TSH 1.840 mlU/mL (0.270-4.200) 03/03/21 04:06 Arterial Blood Glucose 350 mg/dL (65-95) H 03/10/21 12:33 Arterial Blood Ionized Calcium 4.6 mg/dL (4.6-5.3) 03/10/21 12:33 Urine Color [place] (Yellow) 03/06/21 14:34 Urine Turbidity Cloudy (Clear) 03/06/21 14:34 Urine pH 5.0 (5.0-7.0) 03/06/21 14:34 Ur Specific [place] 1.014 (1.003-1.030) 03/06/21 14:34 Urine Protein 30 mg/dl mg/dL (Negative) 03/06/21 14:34 Urine Glucose (UA) Neg mg/dL (Negative) 03/06/21 14:34 Urine Ketones Neg mg/dL (Negative) 03/06/21 14:34 Urine Blood Sm (Negative) 03/06/21 14:34 Urine Nitrite Neg (Negative) 03/06/21 14:34 Urine Bilirubin Neg (Negative) 03/06/21 14:34 Urine Urobilinogen 4.0 mg/dL (<2.0) 03/06/21 14:34 Ur Leukocyte Esterase Neg (Negative) 03/06/21 14:34 Urine WBC (Auto) 103.0 /HPF (0.0-6.0) H 03/06/21 14:34 Urine RBC (Auto) 105.0 /HPF (0.0-6.0) 03/06/21 14:34 U Epithel Cells (Auto) 5.0 /HPF (0-13.0) 03/06/21 14:34 Urine Bacteria (Auto) 2+ /HPF (Negative) 03/06/21 14:34 Hyaline Casts 5 /LPF 03/06/21 14:34 Urine Mucus 1+ /HPF 03/06/21 14:34 Urine Yeast (Budding) Few /HPF 03/01/21 21:40 Urine Sperm 3+ /HPF (WAX[facility] FLOOR) 03/06/21 14:34 Nasal Screen MRSA (PCR) Positive (Negative) 03/02/21 05:00 Salicylates < 0.3 mg/dL (2.8-20.0) L 03/01/21 19:21 Urine Opiates Screen Positive 03/01/21 21:40 Urine Methadone Screen Negative 03/01/21 21:40 Acetaminophen 5.0 ug/mL (10.0-30.0) L 03/01/21 19:21 Ur Barbiturates Screen Negative 03/01/21 21:40 Ur Phencyclidine Scrn Negative 03/01/21 21:40 Ur Amphetamines Screen Negative 03/01/21 21:40 U Benzodiazepines Scrn Negative 03/01/21 21:40 Urine Cocaine Screen Negative 03/01/21 21:40 U Marijuana (THC) Screen Negative 03/01/21 21:40 Drugs of Abuse Note Disclamer 03/01/21 21:40 KARLA Screen Negative (Negative) 03/03/21 04:06 Coronavirus (PCR) Positive (Negative) A 03/05/21 Unknown Blood Type O POSITIVE 03/01/21 19:21 Antibody Screen Negative 03/01/21 19:21 Microbiology: Microbiology 03/06/21 13:47 Peripheral/Venous Blood Culture - Preliminary NO GROWTH AFTER 4 DAYS 03/06/21 13:33 Peripheral/Venous Blood Culture - Preliminary NO GROWTH AFTER 4 DAYS Vilchis/IV: Voiding Method Incontinent Active Medications - Current Medications Current Medications: Generic Name Dose Route Start Last Admin Trade Name Freq PRN Reason Stop Dose Admin Acetaminophen 650 mg 03/06/21 10:00 03/06/21 12:33 Acetaminophen 325 Mg/10.15 Ml Oral Liqd Unit Dose FEEDTUBE 650 mg Q6H PRN Administration Pain MILD(1-3)/Fever >100.5/VALDES Albuterol 2.5 mg 03/02/21 15:45 Albuterol 2.5 Mg/3 Ml Nebu IH Q4H PRN Shortness Of Breath Lipase/Protease/Amylase 1 each 03/03/21 10:53 Lipase 10,500/Protease 25,000/Amylase 43,750 (Units) Dr Gutierrez FEEDTUBE PRN PRN For Clogged Feeding Tube Ascorbic Acid 500 mg 03/06/21 22:00 03/11/21 09:13 Ascorbic Acid 500 Mg Tab PO 500 mg BID KYLE Administration Aspirin 81 mg 03/04/21 10:00 03/11/21 09:14 Aspirin 81 Mg Tab Chew PO 81 mg QDAY KYLE Administration Cholecalciferol 1,000 unit 03/07/21 10:00 03/11/21 09:13 Cholecalciferol (Vit D3) 1000 Unit (25 Mcg) Tab PO 1,000 unit QDAY KYLE Administration Dexamethasone 10 mg 03/07/21 12:00 03/11/21 11:25 Dexamethasone 4 Mg/Ml Vial IV 03/15/21 12:01 10 mg Q24H KYLE Administration Dextrose 50 ml 03/02/21 11:38 Dextrose 50% In Water (25gm) 50 Ml Syringe IV Q30MIN PRN Hypoglycemia Protocol Enoxaparin Sodium 130 mg 03/09/21 11:00 03/11/21 09:13 Enoxaparin 150 Mg/1 Ml Inj SUB-Q 130 mg Q12HR KYLE Administration Protocol Famotidine 20 mg 03/04/21 10:00 03/11/21 09:14 Famotidine 20 Mg Tab PO 20 mg BID KYLE Administration Hydralazine HCl 10 mg 03/09/21 08:21 03/09/21 09:51 Hydralazine 20 Mg/1 Ml Inj IV 10 mg Q4H PRN Administration Hypertension Hydralazine HCl 25 mg 03/11/21 14:00 03/11/21 13:42 Hydralazine 25 Mg Tab PO 25 mg TID KYLE Administration Hydrophilic Ointment 1 applic 03/02/21 15:42 Lip Therapy Vaseline TP Q2H PRN Dry Lips Fentanyl Citrate 2,000 mcg in 100 mls @ 6.55 mls/hr 03/01/21 21:30 03/10/21 09:30 Fentanyl Drip Premix IV 0 mcg/kg/hr TITR KYLE 0 mls/hr Titration Protocol 1 MCG/KG/HR Sodium Chloride 1,000 mls @ 1 mls/hr 03/06/21 18:11 Nacl 0.9% 500 Ml IV DIRECT PRN ARTERIAL LINE FLUSH Insulin Human Regular 0 units 08/01/21 18:00 03/11/21 12:08 Insulin Regular, Human 100 Units/1 Ml SUB-Q 4 units Q6HR KYLE Administration Protocol Labetalol HCl 100 mg 03/11/21 14:00 03/11/21 13:42 Labetalol 100 Mg Tab PO 100 mg TID KYLE Administration Magnesium Hydroxide 30 ml 03/02/21 00:18 Magnesium Hydroxide (Mom) Oral Liqd Udc PO Q4H PRN Constipation Multi-Ingred Cream/Lotion/Oil/Oint 1 applic 03/02/21 15:42 Mineral Oil/Petrolatum, White Ophth Oint 3.5 Gm OU Q4HR PRN Dry Eye(s) Multivitamins/Minerals 1 each 03/03/21 22:00 03/11/21 10:25 Calcium Carb/Vit D3/Minerals 600 Mg/800 Units Tab PO 1 each BID KYLE Administration Senna/Docusate Sodium 1 tab 03/02/21 22:00 03/11/21 09:12 Sennosides/Docusate Sodium 8.6/50 Mg Tab FEEDTUBE 1 tab BID KYLE Administration Simple Syrup 15 ml 03/03/21 10:53 Simple Syrup 15 Ml FEEDTUBE PRN PRN Hypoglycemia Simple Syrup 30 ml 03/03/21 10:53 Simple Syrup 15 Ml FEEDTUBE PRN PRN Hypoglycemia Sodium Bicarbonate 325 mg 03/03/21 10:53 Sodium Bicarbonate 325 Mg Tab FEEDTUBE PRN PRN For Clogged Feeding Tube Sodium Chloride 10 ml 03/02/21 10:00 03/11/21 10:39 Sodium Chloride 0.9% 10 Ml Flush Syringe IV Not Given BID KYLE Sodium Chloride 10 ml 03/02/21 00:18 Sodium Chloride 0.9% 10 Ml Flush Syringe IV PRN PRN LINE FLUSH Zinc Sulfate 220 mg 03/06/21 16:00 03/11/21 09:13 Zinc Sulfate 220 Mg Cap PO 220 mg BID KYLE Administration Nutrition/Malnutrition Assess - Dietary Evaluation Nutrition/Malnutrition Findings: Nutrition Notes Start: 03/02/21 10:10 Freq: Status: Active Protocol: Document 03/11/21 12:15 RIAN (Rec: 03/11/21 12:17 RIAN [id number]) Nutrition Notes Initial or Follow up Brief Note Current Diagnosis Acute Kidney Injury,COPD, Diabetes,Sepsis,Hypertension, Heart Failure,Respiratory Failure Other Pertinent Diagnosis pneu, AMS, COVID(+) Current Diet Glucerna 1.2 at 65 ml/hr; Flush of 100 ml q4h Subjective/Other Information Pt extubated and awaiting [facility] [employer] eval. Nutrition Intervention Follow-Up By: 03/13/21 Additional Comments F/u: diet advancement and intakes
[2021-03-11] MEDS ORDERED: HALOPERIDOL LACTATE 5 MG/1 ML INJ IM ONE (20:50)
[2021-03-11] MEDS ORDERED: SODIUM CHLORIDE 0.9% 500 ML 500 ML IV ONE (21:40)
[2021-03-11] MEDS: hydrALAZINE 20 MG/1 ML INJ IV PRN (22:03)
[2021-03-12] MEDS: INSULIN REGULAR, HUMAN 100 UNITS/1 ML SUB-Q SCH ×5 (10:26→18:34)
[2021-03-12] MEDS: guaiFENesin ER 600 MG TAB PO SCH ×2 (10:27→16:51)
[2021-03-12] MEDS: ASPIRIN 81 MG TAB CHEW PO SCH (10:28)
[2021-03-12] MEDS: CHOLECALCIFEROL (VIT D3) 1000 UNIT (25 mcg) TAB PO SCH (10:28)
[2021-03-12] MEDS: ENOXAPARIN 150 MG/1 ML INJ SUB-Q SCH (10:28)
[2021-03-12] MEDS: hydrALAZINE 25 MG TAB PO SCH ×2 (10:28→14:25)
[2021-03-12] MEDS: SENNOSIDES/DOCUSATE SODIUM 8.6/50 MG TAB FEEDTUBE SCH ×2 (10:29→10:30)
[2021-03-12] MEDS: ASCORBIC ACID 500 MG TAB PO SCH (10:29)
[2021-03-12] MEDS: CALCIUM CARB/VIT D3/MINERALS 600 MG/800 UNITS TAB PO SCH (10:30)
[2021-03-12] MEDS: FAMOTIDINE 20 MG TAB PO SCH (10:30)
--- NOTE | 2021-03-12 11:01 | Progress Note ---
Assessment and Plan Acute hypoxemic respiratory failure NSTEMI Acute kidney injury Severe sepsis Bilateral pneumonia H/O congestive heart failure Diabetes type 2 Acute encephalopathy Elevated serum transaminases Anemia that is microcytic Leukocytosis Metabolic acidosis Lactic acidosis (Care plan discussed at length with his over the phone) - stat EKG ordered - metoprolol 5mg IV X 1 - cardiology notified - am Mg & BMP - scheduled BIPAP qhs for alveolar recruitment / KAM - continue daytime Vapotherm HFNC - get CXR now and address - s/p anti-infective's per ID recommendations (Vancomycin, Levaquin) - continue full dose Lovenox re: VTE - continue care as below otherwise; - continue BIPAP scheduled qhs with prn daytime use - continue to wean supplemental oxygen for target O2 sat's > 90% acutely - aspiration precautions - continue bronchodilators with pulmonary hygiene per RT - wean per pulmonary driven protocols otherwise - continue accuchecks with glycemic control per SSI (While critically ill target blood glucose of 140-180 mg/dL; avoid hypoglycemia) - avoid nephrotoxins, renally dose all medications - continue to avoid benzodiazepine's, reduce the possibility of delirium - prn analgesia per pain score - Maintenance of sleep-wake cycle, avoid delirium - G.I. & VTE prophylaxis - PT/OT/ROM exercises - continue mobility protocols for pressure ulcer prophylaxis - Monitor hemodynamics closely - continue other care per attending / other consultants - discharge planning ongoing concurrently COVID SPECIFIC INTERVENTIONS - continue empiric contact and airborne isolation - Remdesivir as per ID/Pulmonary developed protocols (started) - started systemic steroids for severe COVID-19 infection empirically - follow repeat COVID tests results - started zinc and vitamin C supplementation i9f test positive - get & monitor inflammatory markers per facility protocol - ferritin, Ddimer, CRP (if test +ve) - therapeutic anticoagulation per system Protocol based on d-dimer and clinical considerations (On full dose Lovenox for VTE) .... Re-evaluate in am & prn CONDITION: CRITICAL PROGNOSIS: GUARDED CODE STATUS: FULL CODE The high probability of a clinically significant, sudden or life-threatening deterioration of the [respiratory, cardiovascular & neurologic] system(s) required my full and direct attention, intervention and personal management. The aggregate critical care time was [34] minutes without overlap. Time includes spent on; [x] Data Review and interpretation [x] Patient assessment and monitoring of vital signs [x] Documentation [x] Medication orders and management Subjective Date of service: 03/12/21 Principal diagnosis: Ac hypoxemic resp failure; NSTEMI; ALPHONSO; Sepsis; PNA; CHF; DM II; AMS Interval history: Patient is seen today for: Acute hypoxemic respiratory failure; NSTEMI; ALPHONSO; Severe sepsis; Pneumonia; CHF; DM II; Acute encephalopathy Seen and examined at bedside; 24hour events reviewed; nursing and respiratory care staff consulted; no adverse overnight events reported to me; resting peacefully in bed; on FiO2 of 90% via vapotherm; was not placed on BIPAP overnight; he denies N/V/F/C or chest pain; pulse in 180's but he denies palpitations Objective Vital Signs - 12hr 03/11/21 03/11/21 03/12/21 23:02 23:05 00:00 Temperature 99.0 F Pulse Rate 110 H 96 H Pulse Rate [ 105 H Bilateral] Pulse Rate [ 112 H From Monitor] Respiratory 21 15 Rate Respiratory 21 Rate [Bilateral ] O2 Sat by Pulse 100 99 Oximetry 03/12/21 03/12/21 03/12/21 00:04 00:14 01:00 Temperature Pulse Rate 94 H 86 Pulse Rate [ Bilateral] Pulse Rate [ From Monitor] Respiratory 13 Rate Respiratory Rate [Bilateral ] O2 Sat by Pulse 98 100 Oximetry 03/12/21 03/12/21 03/12/21 02:00 02:08 03:00 Temperature Pulse Rate 81 83 Pulse Rate [ Bilateral] Pulse Rate [ From Monitor] Respiratory 11 L 10 L Rate Respiratory Rate [Bilateral ] O2 Sat by Pulse 100 100 100 Oximetry 03/12/21 03/12/21 03/12/21 03:53 04:00 05:00 Temperature Pulse Rate 94 H 77 85 Pulse Rate [ Bilateral] Pulse Rate [ 112 H From Monitor] Respiratory 11 L 10 L Rate Respiratory Rate [Bilateral ] O2 Sat by Pulse 100 100 Oximetry 03/12/21 03/12/21 03/12/21 06:00 07:00 08:00 Temperature 98.9 F Pulse Rate 81 92 H 96 H Pulse Rate [ Bilateral] Pulse Rate [ From Monitor] Respiratory 10 L 12 22 Rate Respiratory Rate [Bilateral ] O2 Sat by Pulse 100 100 100 Oximetry 03/12/21 03/12/21 03/12/21 08:27 09:00 10:00 Temperature Pulse Rate 101 H 100 H Pulse Rate [ Bilateral] Pulse Rate [ From Monitor] Respiratory 16 29 H Rate Respiratory Rate [Bilateral ] O2 Sat by Pulse 100 100 98 Oximetry Constitutional: no acute distress, other (middle aged obese male with milkdly increased respiratory effort at rest) Eyes: non-icteric ENT: oropharynx moist, other (extubated) Neck: supple, no lymphadenopathy, no JVD, other (large circumference) Effort: mildly labored Ascultation: Bilateral: diminished breath sounds, rhonchi (posterior bases) Percussion: Bilateral: not dull Cardiovascular: regular rate and rhythm Gastrointestinal: normoactive bowel sounds, soft, non-tender, non-distended (protuberant) Integumentary: normal Extremities: no cyanosis, pulses normal, no ischemia or petechiae, edema (trace) Neurologic: non-focal exam (grossly), pupils equal and round, CN II-XII normal, motor strength normal and Psychiatric: other (mild delirium) CBC and BMP: 03/11/21 06:54 03/11/21 06:54 ABG, PT/INR, D-dimer: ABG ABG pH 7.487 (7.320-7.450) H 03/10/21 12:33 POC ABG pCO2 40.4 mmHg (32.0-48.0) 03/10/21 12:33 POC ABG pO2 62.1 mmHg (83-108) L 03/10/21 12:33 POC ABG HCO3 29.9 03/10/21 12:33 ABG O2 Saturation 90.2 (0-100) 03/10/21 12:33 PT/INR, D-dimer PT 15.6 Sec. (12.2-14.9) H 03/04/21 10:17 INR 1.18 (0.87-1.13) H 03/04/21 10:17 D-Dimer 238.43 ng/mlDDU (0-234) H 03/11/21 06:54 Abnormal lab findings: Abnormal Labs 03/01/21 03/01/21 03/01/21 19:15 19:21 19:21 WBC 12.7 H RBC 2.77 L Hgb 9.1 L Hct 27.7 L MCV 100 H MCH 33 H RDW 18.0 H Seg Neutrophils % Monocytes % (Manual) 17.0 H Seg Neutrophils # Monocytes # (Manual) 2.2 H PT INR D-Dimer Heparin Anti-Xa Level ABG pH POC ABG pCO2 POC ABG pO2 64.9 L ABG Hemoglobin 9.3 L ABG Oxyhemoglobin 93.0 L ABG Sodium 133.8 L ABG Potassium ABG Chloride 97.0 L ABG Glucose 191 H Carboxyhemoglobin Sodium Chloride Carbon Dioxide BUN Creatinine Glucose POC Glucose Lactic Acid Calcium Phosphorus Magnesium Ferritin Total Bilirubin Direct Bilirubin AST ALT Alkaline Phosphatase Ammonia Lactate Dehydrogenase Troponin T 0.493 H* C-Reactive Protein Total Protein Albumin Triglycerides 400 H Cholesterol 232 H HDL Cholesterol 22 L Lipase Arterial Blood Glucose 191 H Arterial Blood Ionized Calcium 4.4 L Urine WBC (Auto) Salicylates Acetaminophen Coronavirus (PCR) 03/01/21 03/01/21 03/01/21 19:21 19:21 19:21 WBC RBC Hgb Hct MCV MCH RDW Seg Neutrophils % Monocytes % (Manual) Seg Neutrophils # Monocytes # (Manual) PT 16.6 H INR 1.28 H D-Dimer Heparin Anti-Xa Level ABG pH POC ABG pCO2 POC ABG pO2 ABG Hemoglobin ABG Oxyhemoglobin ABG Sodium ABG Potassium ABG Chloride ABG Glucose Carboxyhemoglobin Sodium 132 L Chloride 92.2 L Carbon Dioxide BUN 43 H Creatinine 2.4 H Glucose 190 H POC Glucose Lactic Acid 2.90 H* Calcium Phosphorus Magnesium Ferritin Total Bilirubin 1.60 H Direct Bilirubin 1.2 H AST 275 H ALT 156 H Alkaline Phosphatase 282 H Ammonia Lactate Dehydrogenase Troponin T C-Reactive Protein Total Protein 5.8 L Albumin 2.6 L Triglycerides Cholesterol HDL Cholesterol Lipase 120 H Arterial Blood Glucose Arterial Blood Ionized Calcium Urine WBC (Auto) Salicylates Acetaminophen Coronavirus (PCR) 03/01/21 03/01/21 03/01/21 19:21 19:21 19:21 WBC RBC Hgb Hct MCV MCH RDW Seg Neutrophils % Monocytes % (Manual) Seg Neutrophils # Monocytes # (Manual) PT INR D-Dimer Heparin Anti-Xa Level ABG pH POC ABG pCO2 POC ABG pO2 ABG Hemoglobin ABG Oxyhemoglobin ABG Sodium ABG Potassium ABG Chloride ABG Glucose Carboxyhemoglobin Sodium Chloride Carbon Dioxide BUN Creatinine Glucose POC Glucose Lactic Acid Calcium Phosphorus Magnesium Ferritin Total Bilirubin Direct Bilirubin AST ALT Alkaline Phosphatase Ammonia 71.0 H Lactate Dehydrogenase Troponin T C-Reactive Protein Total Protein Albumin Triglycerides Cholesterol HDL Cholesterol Lipase Arterial Blood Glucose Arterial Blood Ionized Calcium Urine WBC (Auto) Salicylates < 0.3 L Acetaminophen 5.0 L Coronavirus (PCR) 03/01/21 03/01/21 03/02/21 20:55 20:55 00:01 WBC RBC Hgb Hct MCV MCH RDW Seg Neutrophils % Monocytes % (Manual) Seg Neutrophils # Monocytes # (Manual) PT INR D-Dimer Heparin Anti-Xa Level ABG pH 7.234 L POC ABG pCO2 POC ABG pO2 240.5 H ABG Hemoglobin 9.3 L ABG Oxyhemoglobin 99.1 H ABG Sodium 135.3 L ABG Potassium ABG Chloride ABG Glucose 286 H Carboxyhemoglobin 0.3 L Sodium Chloride Carbon Dioxide BUN Creatinine Glucose POC Glucose Lactic Acid 4.30 H* Calcium Phosphorus Magnesium Ferritin Total Bilirubin Direct Bilirubin AST ALT Alkaline Phosphatase Ammonia Lactate Dehydrogenase Troponin T 0.484 H* C-Reactive Protein Total Protein Albumin Triglycerides Cholesterol HDL Cholesterol Lipase Arterial Blood Glucose 286 H Arterial Blood Ionized Calcium Urine WBC (Auto) Salicylates Acetaminophen Coronavirus (PCR) 03/02/21 03/02/21 03/02/21 03:42 05:23 06:35 WBC RBC Hgb Hct MCV MCH RDW Seg Neutrophils % Monocytes % (Manual) Seg Neutrophils # Monocytes # (Manual) PT INR D-Dimer Heparin Anti-Xa Level ABG pH 7.225 L POC ABG pCO2 POC ABG pO2 181.8 H ABG Hemoglobin 9.4 L ABG Oxyhemoglobin 98.6 H ABG Sodium 132.1 L ABG Potassium 5.0 H ABG Chloride ABG Glucose 454 H Carboxyhemoglobin 0.3 L Sodium Chloride Carbon Dioxide BUN Creatinine Glucose POC Glucose 410 H Lactic Acid 7.50 H* Calcium Phosphorus Magnesium Ferritin Total Bilirubin Direct Bilirubin AST ALT Alkaline Phosphatase Ammonia Lactate Dehydrogenase Troponin T C-Reactive Protein Total Protein Albumin Triglycerides Cholesterol HDL Cholesterol Lipase Arterial Blood Glucose 454 H Arterial Blood Ionized Calcium 4.2 L Urine WBC (Auto) Salicylates Acetaminophen Coronavirus (PCR) 03/02/21 03/02/21 03/02/21 10:48 10:48 10:48 WBC RBC Hgb Hct MCV MCH RDW Seg Neutrophils % Monocytes % (Manual) Seg Neutrophils # Monocytes # (Manual) PT INR D-Dimer Heparin Anti-Xa Level ABG pH POC ABG pCO2 POC ABG pO2 ABG Hemoglobin ABG Oxyhemoglobin ABG Sodium ABG Potassium ABG Chloride ABG Glucose Carboxyhemoglobin Sodium 132 L Chloride 93.3 L Carbon Dioxide 20 L BUN 46 H Creatinine 1.9 H Glucose 503 H* POC Glucose Lactic Acid 3.40 H* Calcium 7.9 L Phosphorus 5.80 H Magnesium Ferritin Total Bilirubin Direct Bilirubin AST ALT Alkaline Phosphatase Ammonia Lactate Dehydrogenase Troponin T C-Reactive Protein Total Protein Albumin Triglycerides Cholesterol HDL Cholesterol Lipase Arterial Blood Glucose Arterial Blood Ionized Calcium Urine WBC (Auto) Salicylates Acetaminophen Coronavirus (PCR) 03/02/21 03/02/21 03/02/21 11:23 11:38 15:33 WBC RBC Hgb Hct MCV MCH RDW Seg Neutrophils % Monocytes % (Manual) Seg Neutrophils # Monocytes # (Manual) PT INR D-Dimer Heparin Anti-Xa Level ABG pH 7.318 L POC ABG pCO2 POC ABG pO2 ABG Hemoglobin 9.2 L ABG Oxyhemoglobin ABG Sodium 133.2 L ABG Potassium ABG Chloride ABG Glucose 504 H Carboxyhemoglobin 0.3 L Sodium Chloride Carbon Dioxide BUN Creatinine Glucose POC Glucose 468 H 445 H Lactic Acid Calcium Phosphorus Magnesium Ferritin Total Bilirubin Direct Bilirubin AST ALT Alkaline Phosphatase Ammonia Lactate Dehydrogenase Troponin T C-Reactive Protein Total Protein Albumin Triglycerides Cholesterol HDL Cholesterol Lipase Arterial Blood Glucose 504 H Arterial Blood Ionized Calcium 4.2 L Urine WBC (Auto) Salicylates Acetaminophen Coronavirus (PCR) 03/02/21 03/02/21 03/02/21 16:28 16:28 16:28 WBC RBC Hgb 8.8 L Hct 26.0 L MCV MCH RDW Seg Neutrophils % Monocytes % (Manual) Seg Neutrophils # Monocytes # (Manual) PT 15.2 H INR 1.14 H D-Dimer Heparin Anti-Xa Level ABG pH POC ABG pCO2 POC ABG pO2 ABG Hemoglobin ABG Oxyhemoglobin ABG Sodium ABG Potassium ABG Chloride ABG Glucose Carboxyhemoglobin Sodium 135 L Chloride 93.8 L Carbon Dioxide BUN 48 H Creatinine 1.8 H Glucose 454 H POC Glucose Lactic Acid Calcium 7.6 L Phosphorus Magnesium Ferritin Total Bilirubin Direct Bilirubin AST ALT Alkaline Phosphatase Ammonia Lactate Dehydrogenase Troponin T C-Reactive Protein Total Protein Albumin Triglycerides Cholesterol HDL Cholesterol Lipase Arterial Blood Glucose Arterial Blood Ionized Calcium Urine WBC (Auto) Salicylates Acetaminophen Coronavirus (PCR) 03/02/21 03/02/21 03/02/21 17:39 18:52 20:09 WBC RBC Hgb Hct MCV MCH RDW Seg Neutrophils % Monocytes % (Manual) Seg Neutrophils # Monocytes # (Manual) PT INR D-Dimer Heparin Anti-Xa Level ABG pH POC ABG pCO2 POC ABG pO2 ABG Hemoglobin ABG Oxyhemoglobin ABG Sodium ABG Potassium ABG Chloride ABG Glucose Carboxyhemoglobin Sodium Chloride Carbon Dioxide BUN Creatinine Glucose POC Glucose 404 H 357 H 347 H Lactic Acid Calcium Phosphorus Magnesium Ferritin Total Bilirubin Direct Bilirubin AST ALT Alkaline Phosphatase Ammonia Lactate Dehydrogenase Troponin T C-Reactive Protein Total Protein Albumin Triglycerides Cholesterol HDL Cholesterol Lipase Arterial Blood Glucose Arterial Blood Ionized Calcium Urine WBC (Auto) Salicylates Acetaminophen Coronavirus (PCR) 03/02/21 03/02/21 03/02/21 21:03 22:00 22:55 WBC RBC Hgb Hct MCV MCH RDW Seg Neutrophils % Monocytes % (Manual) Seg Neutrophils # Monocytes # (Manual) PT INR D-Dimer Heparin Anti-Xa Level ABG pH POC ABG pCO2 POC ABG pO2 ABG Hemoglobin ABG Oxyhemoglobin ABG Sodium ABG Potassium ABG Chloride ABG Glucose Carboxyhemoglobin Sodium Chloride Carbon Dioxide BUN Creatinine Glucose POC Glucose 307 H 270 H 237 H Lactic Acid Calcium Phosphorus Magnesium Ferritin Total Bilirubin Direct Bilirubin AST ALT Alkaline Phosphatase Ammonia Lactate Dehydrogenase Troponin T C-Reactive Protein Total Protein Albumin Triglycerides Cholesterol HDL Cholesterol Lipase Arterial Blood Glucose Arterial Blood Ionized Calcium Urine WBC (Auto) Salicylates Acetaminophen Coronavirus (PCR) 03/03/21 03/03/21 03/03/21 00:02 00:57 02:01 WBC RBC Hgb Hct MCV MCH RDW Seg Neutrophils % Monocytes % (Manual) Seg Neutrophils # Monocytes # (Manual) PT INR D-Dimer Heparin Anti-Xa Level ABG pH POC ABG pCO2 POC ABG pO2 ABG Hemoglobin ABG Oxyhemoglobin ABG Sodium ABG Potassium ABG Chloride ABG Glucose Carboxyhemoglobin Sodium Chloride Carbon Dioxide BUN Creatinine Glucose POC Glucose 252 H 214 H 261 H Lactic Acid Calcium Phosphorus Magnesium Ferritin Total Bilirubin Direct Bilirubin AST ALT Alkaline Phosphatase Ammonia Lactate Dehydrogenase Troponin T C-Reactive Protein Total Protein Albumin Triglycerides Cholesterol HDL Cholesterol Lipase Arterial Blood Glucose Arterial Blood Ionized Calcium Urine WBC (Auto) Salicylates Acetaminophen Coronavirus (PCR) 03/03/21 03/03/21 03/03/21 03:07 03:10 03:50 WBC 13.7 H RBC 2.69 L Hgb 8.7 L Hct 26.9 L MCV 100 H MCH RDW 18.5 H Seg Neutrophils % 79.0 H Monocytes % (Manual) Seg Neutrophils # 10.8 H Monocytes # (Manual) PT INR D-Dimer Heparin Anti-Xa Level ABG pH POC ABG pCO2 50.9 H POC ABG pO2 81.9 L ABG Hemoglobin 8.7 L ABG Oxyhemoglobin ABG Sodium 134.2 L ABG Potassium ABG Chloride 96.0 L ABG Glucose 279 H Carboxyhemoglobin 0.4 L Sodium Chloride Carbon Dioxide BUN Creatinine Glucose POC Glucose 276 H Lactic Acid Calcium Phosphorus Magnesium Ferritin Total Bilirubin Direct Bilirubin AST ALT Alkaline Phosphatase Ammonia Lactate Dehydrogenase Troponin T C-Reactive Protein Total Protein Albumin Triglycerides Cholesterol HDL Cholesterol Lipase Arterial Blood Glucose 279 H Arterial Blood Ionized Calcium 3.9 L Urine WBC (Auto) Salicylates Acetaminophen Coronavirus (PCR) 03/03/21 03/03/21 03/03/21 03:50 04:06 04:32 WBC RBC Hgb Hct MCV MCH RDW Seg Neutrophils % Monocytes % (Manual) Seg Neutrophils # Monocytes # (Manual) PT INR D-Dimer Heparin Anti-Xa Level ABG pH POC ABG pCO2 POC ABG pO2 ABG Hemoglobin ABG Oxyhemoglobin ABG Sodium ABG Potassium ABG Chloride ABG Glucose Carboxyhemoglobin Sodium Chloride 94.2 L Carbon Dioxide BUN 45 H Creatinine 1.9 H Glucose 261 H POC Glucose 256 H Lactic Acid Calcium 7.3 L Phosphorus Magnesium Ferritin Total Bilirubin Direct Bilirubin 0.9 H AST 208 H ALT 148 H Alkaline Phosphatase 251 H Ammonia Lactate Dehydrogenase Troponin T C-Reactive Protein Total Protein 5.5 L Albumin 2.4 L Triglycerides Cholesterol HDL Cholesterol Lipase Arterial Blood Glucose Arterial Blood Ionized Calcium Urine WBC (Auto) Salicylates Acetaminophen Coronavirus (PCR) 03/03/21 03/03/21 03/03/21 05:23 06:06 07:07 WBC RBC Hgb Hct MCV MCH RDW Seg Neutrophils % Monocytes % (Manual) Seg Neutrophils # Monocytes # (Manual) PT INR D-Dimer Heparin Anti-Xa Level ABG pH POC ABG pCO2 POC ABG pO2 ABG Hemoglobin ABG Oxyhemoglobin ABG Sodium ABG Potassium ABG Chloride ABG Glucose Carboxyhemoglobin Sodium Chloride Carbon Dioxide BUN Creatinine Glucose POC Glucose 214 H 249 H 237 H Lactic Acid Calcium Phosphorus Magnesium Ferritin Total Bilirubin Direct Bilirubin AST ALT Alkaline Phosphatase Ammonia Lactate Dehydrogenase Troponin T C-Reactive Protein Total Protein Albumin Triglycerides Cholesterol HDL Cholesterol Lipase Arterial Blood Glucose Arterial Blood Ionized Calcium Urine WBC (Auto) Salicylates Acetaminophen Coronavirus (PCR) 03/03/21 03/03/21 03/03/21 07:58 08:58 09:52 WBC RBC Hgb Hct MCV MCH RDW Seg Neutrophils % Monocytes % (Manual) Seg Neutrophils # Monocytes # (Manual) PT INR D-Dimer Heparin Anti-Xa Level ABG pH POC ABG pCO2 POC ABG pO2 ABG Hemoglobin ABG Oxyhemoglobin ABG Sodium ABG Potassium ABG Chloride ABG Glucose Carboxyhemoglobin Sodium Chloride Carbon Dioxide BUN Creatinine Glucose POC Glucose 227 H 215 H 207 H Lactic Acid Calcium Phosphorus Magnesium Ferritin Total Bilirubin Direct Bilirubin AST ALT Alkaline Phosphatase Ammonia Lactate Dehydrogenase Troponin T C-Reactive Protein Total Protein Albumin Triglycerides Cholesterol HDL Cholesterol Lipase Arterial Blood Glucose Arterial Blood Ionized Calcium Urine WBC (Auto) Salicylates Acetaminophen Coronavirus (PCR) 03/03/21 03/03/21 03/03/21 10:55 11:44 12:53 WBC RBC Hgb Hct MCV MCH RDW Seg Neutrophils % Monocytes % (Manual) Seg Neutrophils # Monocytes # (Manual) PT INR D-Dimer Heparin Anti-Xa Level ABG pH POC ABG pCO2 POC ABG pO2 ABG Hemoglobin ABG Oxyhemoglobin ABG Sodium ABG Potassium ABG Chloride ABG Glucose Carboxyhemoglobin Sodium Chloride Carbon Dioxide BUN Creatinine Glucose POC Glucose 198 H 210 H 203 H Lactic Acid Calcium Phosphorus Magnesium Ferritin Total Bilirubin Direct Bilirubin AST ALT Alkaline Phosphatase Ammonia Lactate Dehydrogenase Troponin T C-Reactive Protein Total Protein Albumin Triglycerides Cholesterol HDL Cholesterol Lipase Arterial Blood Glucose Arterial Blood Ionized Calcium Urine WBC (Auto) Salicylates Acetaminophen Coronavirus (PCR) 03/03/21 03/03/21 03/03/21 13:53 14:58 15:23 WBC RBC Hgb Hct MCV MCH RDW Seg Neutrophils % Monocytes % (Manual) Seg Neutrophils # Monocytes # (Manual) PT INR D-Dimer Heparin Anti-Xa Level ABG pH POC ABG pCO2 POC ABG pO2 ABG Hemoglobin ABG Oxyhemoglobin ABG Sodium ABG Potassium ABG Chloride ABG Glucose Carboxyhemoglobin Sodium Chloride Carbon Dioxide BUN Creatinine Glucose POC Glucose 210 H 187 H Lactic Acid 3.10 H* Calcium Phosphorus Magnesium Ferritin Total Bilirubin Direct Bilirubin AST ALT Alkaline Phosphatase Ammonia Lactate Dehydrogenase Troponin T C-Reactive Protein Total Protein Albumin Triglycerides Cholesterol HDL Cholesterol Lipase Arterial Blood Glucose Arterial Blood Ionized Calcium Urine WBC (Auto) Salicylates Acetaminophen Coronavirus (PCR) 03/03/21 03/03/21 03/03/21 15:51 16:25 16:53 WBC RBC Hgb Hct MCV MCH RDW Seg Neutrophils % Monocytes % (Manual) Seg Neutrophils # Monocytes # (Manual) PT INR D-Dimer Heparin Anti-Xa Level ABG pH POC ABG pCO2 POC ABG pO2 ABG Hemoglobin ABG Oxyhemoglobin ABG Sodium ABG Potassium ABG Chloride ABG Glucose Carboxyhemoglobin Sodium Chloride 91.0 L Carbon Dioxide 34 H BUN 47 H Creatinine 1.7 H Glucose 190 H POC Glucose 182 H 179 H Lactic Acid Calcium 7.6 L Phosphorus Magnesium Ferritin Total Bilirubin Direct Bilirubin AST ALT Alkaline Phosphatase Ammonia Lactate Dehydrogenase Troponin T C-Reactive Protein Total Protein Albumin Triglycerides Cholesterol HDL Cholesterol Lipase Arterial Blood Glucose Arterial Blood Ionized Calcium Urine WBC (Auto) Salicylates Acetaminophen Coronavirus (PCR) 03/03/21 03/03/21 03/03/21 17:55 19:37 20:57 WBC RBC Hgb Hct MCV MCH RDW Seg Neutrophils % Monocytes % (Manual) Seg Neutrophils # Monocytes # (Manual) PT INR D-Dimer Heparin Anti-Xa Level ABG pH POC ABG pCO2 POC ABG pO2 ABG Hemoglobin ABG Oxyhemoglobin ABG Sodium ABG Potassium ABG Chloride ABG Glucose Carboxyhemoglobin Sodium Chloride Carbon Dioxide BUN Creatinine Glucose POC Glucose 185 H 174 H 175 H Lactic Acid Calcium Phosphorus Magnesium Ferritin Total Bilirubin Direct Bilirubin AST ALT Alkaline Phosphatase Ammonia Lactate Dehydrogenase Troponin T C-Reactive Protein Total Protein Albumin Triglycerides Cholesterol HDL Cholesterol Lipase Arterial Blood Glucose Arterial Blood Ionized Calcium Urine WBC (Auto) Salicylates Acetaminophen Coronavirus (PCR) 03/03/21 03/03/21 03/03/21 22:02 22:56 23:10 WBC RBC Hgb Hct MCV MCH RDW Seg Neutrophils % Monocytes % (Manual) Seg Neutrophils # Monocytes # (Manual) PT INR D-Dimer Heparin Anti-Xa Level 0.75 H ABG pH POC ABG pCO2 POC ABG pO2 ABG Hemoglobin ABG Oxyhemoglobin ABG Sodium ABG Potassium ABG Chloride ABG Glucose Carboxyhemoglobin Sodium Chloride Carbon Dioxide BUN Creatinine Glucose POC Glucose 170 H 160 H Lactic Acid Calcium Phosphorus Magnesium Ferritin Total Bilirubin Direct Bilirubin AST ALT Alkaline Phosphatase Ammonia Lactate Dehydrogenase Troponin T C-Reactive Protein Total Protein Albumin Triglycerides Cholesterol HDL Cholesterol Lipase Arterial Blood Glucose Arterial Blood Ionized Calcium Urine WBC (Auto) Salicylates Acetaminophen Coronavirus (PCR) 03/03/21 03/04/21 03/04/21 23:42 00:52 01:55 WBC RBC Hgb Hct MCV MCH RDW Seg Neutrophils % Monocytes % (Manual) Seg Neutrophils # Monocytes # (Manual) PT INR D-Dimer Heparin Anti-Xa Level ABG pH POC ABG pCO2 POC ABG pO2 ABG Hemoglobin ABG Oxyhemoglobin ABG Sodium ABG Potassium ABG Chloride ABG Glucose Carboxyhemoglobin Sodium Chloride Carbon Dioxide BUN Creatinine Glucose POC Glucose 161 H 167 H 119 H Lactic Acid Calcium Phosphorus Magnesium Ferritin Total Bilirubin Direct Bilirubin AST ALT Alkaline Phosphatase Ammonia Lactate Dehydrogenase Troponin T C-Reactive Protein Total Protein Albumin Triglycerides Cholesterol HDL Cholesterol Lipase Arterial Blood Glucose Arterial Blood Ionized Calcium Urine WBC (Auto) Salicylates Acetaminophen Coronavirus (PCR) 03/04/21 03/04/21 03/04/21 02:58 03:47 04:03 WBC RBC Hgb Hct MCV MCH RDW Seg Neutrophils % Monocytes % (Manual) Seg Neutrophils # Monocytes # (Manual) PT INR D-Dimer Heparin Anti-Xa Level ABG pH POC ABG pCO2 57.3 H POC ABG pO2 63.7 L ABG Hemoglobin 8.4 L ABG Oxyhemoglobin 88.6 L ABG Sodium 132.5 L ABG Potassium 3.2 L ABG Chloride 94.0 L ABG Glucose 129 H Carboxyhemoglobin Sodium Chloride Carbon Dioxide BUN Creatinine Glucose POC Glucose 111 H 122 H Lactic Acid Calcium Phosphorus Magnesium Ferritin Total Bilirubin Direct Bilirubin AST ALT Alkaline Phosphatase Ammonia Lactate Dehydrogenase Troponin T C-Reactive Protein Total Protein Albumin Triglycerides Cholesterol HDL Cholesterol Lipase Arterial Blood Glucose 129 H Arterial Blood Ionized Calcium 3.8 L Urine WBC (Auto) Salicylates Acetaminophen Coronavirus (PCR) 03/04/21 03/04/21 03/04/21 05:15 05:26 05:26 WBC RBC Hgb 7.9 L Hct 23.7 L MCV MCH RDW Seg Neutrophils % Monocytes % (Manual) Seg Neutrophils # Monocytes # (Manual) PT INR D-Dimer Heparin Anti-Xa Level ABG pH POC ABG pCO2 POC ABG pO2 ABG Hemoglobin ABG Oxyhemoglobin ABG Sodium ABG Potassium ABG Chloride ABG Glucose Carboxyhemoglobin Sodium Chloride Carbon Dioxide BUN Creatinine Glucose POC Glucose 127 H Lactic Acid Calcium Phosphorus Magnesium Ferritin Total Bilirubin Direct Bilirubin 0.6 H AST 123 H ALT 105 H Alkaline Phosphatase 232 H Ammonia Lactate Dehydrogenase Troponin T C-Reactive Protein Total Protein 4.8 L Albumin 2.2 L Triglycerides Cholesterol HDL Cholesterol Lipase Arterial Blood Glucose Arterial Blood Ionized Calcium Urine WBC (Auto) Salicylates Acetaminophen Coronavirus (PCR) 03/04/21 03/04/21 03/04/21 05:26 06:01 06:53 WBC RBC Hgb Hct MCV MCH RDW Seg Neutrophils % Monocytes % (Manual) Seg Neutrophils # Monocytes # (Manual) PT INR D-Dimer Heparin Anti-Xa Level 0.71 H ABG pH POC ABG pCO2 POC ABG pO2 ABG Hemoglobin ABG Oxyhemoglobin ABG Sodium ABG Potassium ABG Chloride ABG Glucose Carboxyhemoglobin Sodium Chloride Carbon Dioxide BUN Creatinine Glucose POC Glucose 120 H 117 H Lactic Acid Calcium Phosphorus Magnesium Ferritin Total Bilirubin Direct Bilirubin AST ALT Alkaline Phosphatase Ammonia Lactate Dehydrogenase Troponin T C-Reactive Protein Total Protein Albumin Triglycerides Cholesterol HDL Cholesterol Lipase Arterial Blood Glucose Arterial Blood Ionized Calcium Urine WBC (Auto) Salicylates Acetaminophen Coronavirus (PCR) 03/04/21 03/04/21 03/04/21 07:57 10:17 10:17 WBC RBC 2.51 L Hgb 8.3 L Hct 25.3 L MCV 101 H MCH 33 H RDW 18.5 H Seg Neutrophils % Monocytes % (Manual) Seg Neutrophils # Monocytes # (Manual) PT INR D-Dimer Heparin Anti-Xa Level ABG pH POC ABG pCO2 POC ABG pO2 ABG Hemoglobin ABG Oxyhemoglobin ABG Sodium ABG Potassium ABG Chloride ABG Glucose Carboxyhemoglobin Sodium 136 L Chloride 93.1 L Carbon Dioxide 33 H BUN 46 H Creatinine 1.4 H Glucose 151 H POC Glucose 129 H Lactic Acid Calcium 7.5 L Phosphorus Magnesium Ferritin Total Bilirubin Direct Bilirubin AST 126 H ALT 100 H Alkaline Phosphatase 226 H Ammonia Lactate Dehydrogenase Troponin T C-Reactive Protein Total Protein 5.0 L Albumin 2.2 L Triglycerides Cholesterol HDL Cholesterol Lipase Arterial Blood Glucose Arterial Blood Ionized Calcium Urine WBC (Auto) Salicylates Acetaminophen Coronavirus (PCR) 03/04/21 03/04/21 03/04/21 10:17 10:17 11:26 WBC RBC Hgb Hct MCV MCH RDW Seg Neutrophils % Monocytes % (Manual) Seg Neutrophils # Monocytes # (Manual) PT 15.6 H INR 1.18 H D-Dimer Heparin Anti-Xa Level ABG pH POC ABG pCO2 POC ABG pO2 ABG Hemoglobin ABG Oxyhemoglobin ABG Sodium ABG Potassium ABG Chloride ABG Glucose Carboxyhemoglobin Sodium Chloride Carbon Dioxide BUN Creatinine Glucose POC Glucose 167 H Lactic Acid Calcium Phosphorus Magnesium Ferritin Total Bilirubin Direct Bilirubin AST ALT Alkaline Phosphatase Ammonia Lactate Dehydrogenase Troponin T C-Reactive Protein Total Protein Albumin Triglycerides Cholesterol HDL Cholesterol Lipase 78 H Arterial Blood Glucose Arterial Blood Ionized Calcium Urine WBC (Auto) Salicylates Acetaminophen Coronavirus (PCR) 03/04/21 03/04/21 03/04/21 13:04 16:26 17:58 WBC RBC Hgb 7.7 L Hct 23.2 L MCV MCH RDW Seg Neutrophils % Monocytes % (Manual) Seg Neutrophils # Monocytes # (Manual) PT INR D-Dimer Heparin Anti-Xa Level < 0.10 L ABG pH POC ABG pCO2 POC ABG pO2 ABG Hemoglobin ABG Oxyhemoglobin ABG Sodium ABG Potassium ABG Chloride ABG Glucose Carboxyhemoglobin Sodium Chloride Carbon Dioxide BUN Creatinine Glucose POC Glucose 167 H Lactic Acid Calcium Phosphorus Magnesium Ferritin Total Bilirubin Direct Bilirubin AST ALT Alkaline Phosphatase Ammonia Lactate Dehydrogenase Troponin T C-Reactive Protein Total Protein Albumin Triglycerides Cholesterol HDL Cholesterol Lipase Arterial Blood Glucose Arterial Blood Ionized Calcium Urine WBC (Auto) Salicylates Acetaminophen Coronavirus (PCR) 03/04/21 03/05/21 03/05/21 23:47 04:00 05:06 WBC RBC Hgb Hct MCV MCH RDW Seg Neutrophils % Monocytes % (Manual) Seg Neutrophils # Monocytes # (Manual) PT INR D-Dimer Heparin Anti-Xa Level ABG pH POC ABG pCO2 POC ABG pO2 129.1 H ABG Hemoglobin 8.3 L ABG Oxyhemoglobin ABG Sodium 131.4 L ABG Potassium ABG Chloride 95.0 L ABG Glucose 153 H Carboxyhemoglobin Sodium Chloride Carbon Dioxide BUN Creatinine Glucose POC Glucose 153 H 139 H Lactic Acid Calcium Phosphorus Magnesium Ferritin Total Bilirubin Direct Bilirubin AST ALT Alkaline Phosphatase Ammonia Lactate Dehydrogenase Troponin T C-Reactive Protein Total Protein Albumin Triglycerides Cholesterol HDL Cholesterol Lipase Arterial Blood Glucose 153 H Arterial Blood Ionized Calcium Urine WBC (Auto) Salicylates Acetaminophen Coronavirus (PCR) 03/05/21 03/05/21 03/05/21 11:43 13:35 13:35 WBC RBC 2.38 L Hgb 7.8 L Hct 23.8 L MCV 100 H MCH 33 H RDW 18.2 H Seg Neutrophils % Monocytes % (Manual) Seg Neutrophils # Monocytes # (Manual) PT INR D-Dimer Heparin Anti-Xa Level ABG pH POC ABG pCO2 POC ABG pO2 ABG Hemoglobin ABG Oxyhemoglobin ABG Sodium ABG Potassium ABG Chloride ABG Glucose Carboxyhemoglobin Sodium Chloride 94.4 L Carbon Dioxide BUN 49 H Creatinine 1.6 H Glucose 165 H POC Glucose 174 H Lactic Acid Calcium 7.5 L Phosphorus Magnesium Ferritin Total Bilirubin Direct Bilirubin AST ALT Alkaline Phosphatase Ammonia Lactate Dehydrogenase Troponin T C-Reactive Protein Total Protein Albumin Triglycerides Cholesterol HDL Cholesterol Lipase Arterial Blood Glucose Arterial Blood Ionized Calcium Urine WBC (Auto) Salicylates Acetaminophen Coronavirus (PCR) 03/05/21 03/05/21 03/05/21 17:57 21:27 Unknown WBC RBC Hgb Hct MCV MCH RDW Seg Neutrophils % Monocytes % (Manual) Seg Neutrophils # Monocytes # (Manual) PT INR D-Dimer Heparin Anti-Xa Level ABG pH POC ABG pCO2 POC ABG pO2 ABG Hemoglobin ABG Oxyhemoglobin ABG Sodium ABG Potassium ABG Chloride ABG Glucose Carboxyhemoglobin Sodium Chloride Carbon Dioxide BUN Creatinine Glucose POC Glucose 129 H 129 H Lactic Acid Calcium Phosphorus Magnesium Ferritin Total Bilirubin Direct Bilirubin AST ALT Alkaline Phosphatase Ammonia Lactate Dehydrogenase Troponin T C-Reactive Protein Total Protein Albumin Triglycerides Cholesterol HDL Cholesterol Lipase Arterial Blood Glucose Arterial Blood Ionized Calcium Urine WBC (Auto) Salicylates Acetaminophen Coronavirus (PCR) Positive A 03/06/21 03/06/21 03/06/21 03:30 04:30 05:20 WBC 15.2 H RBC 2.48 L Hgb 8.2 L Hct 24.9 L MCV 100 H MCH 33 H RDW 18.6 H Seg Neutrophils % 72.6 H Monocytes % (Manual) Seg Neutrophils # 11.1 H Monocytes # (Manual) PT INR D-Dimer Heparin Anti-Xa Level ABG pH POC ABG pCO2 49.7 H POC ABG pO2 65.1 L ABG Hemoglobin 9.1 L ABG Oxyhemoglobin 90.2 L ABG Sodium 131.2 L ABG Potassium ABG Chloride 96.0 L ABG Glucose 133 H Carboxyhemoglobin Sodium Chloride Carbon Dioxide BUN Creatinine Glucose POC Glucose Lactic Acid Calcium Phosphorus Magnesium Ferritin Total Bilirubin Direct Bilirubin AST ALT Alkaline Phosphatase Ammonia Lactate Dehydrogenase Troponin T C-Reactive Protein 27.90 H Total Protein Albumin Triglycerides Cholesterol HDL Cholesterol Lipase Arterial Blood Glucose 133 H Arterial Blood Ionized Calcium 4.2 L Urine WBC (Auto) Salicylates Acetaminophen Coronavirus (PCR) 03/06/21 03/06/21 03/06/21 05:20 05:30 11:52 WBC RBC Hgb Hct MCV MCH RDW Seg Neutrophils % Monocytes % (Manual) Seg Neutrophils # Monocytes # (Manual) PT INR D-Dimer Heparin Anti-Xa Level ABG pH POC ABG pCO2 POC ABG pO2 ABG Hemoglobin ABG Oxyhemoglobin ABG Sodium ABG Potassium ABG Chloride ABG Glucose Carboxyhemoglobin Sodium 135 L Chloride 94.5 L Carbon Dioxide BUN 49 H Creatinine Glucose 121 H POC Glucose 123 H 123 H Lactic Acid Calcium 7.3 L Phosphorus Magnesium 1.50 L Ferritin Total Bilirubin Direct Bilirubin AST 120 H ALT 74 H Alkaline Phosphatase 306 H Ammonia Lactate Dehydrogenase Troponin T C-Reactive Protein Total Protein 4.5 L Albumin 2.0 L Triglycerides Cholesterol HDL Cholesterol Lipase Arterial Blood Glucose Arterial Blood Ionized Calcium Urine WBC (Auto) Salicylates Acetaminophen Coronavirus (PCR) 03/06/21 03/06/21 03/06/21 14:34 17:45 23:36 WBC RBC Hgb Hct MCV MCH RDW Seg Neutrophils % Monocytes % (Manual) Seg Neutrophils # Monocytes # (Manual) PT INR D-Dimer Heparin Anti-Xa Level ABG pH POC ABG pCO2 POC ABG pO2 ABG Hemoglobin ABG Oxyhemoglobin ABG Sodium ABG Potassium ABG Chloride ABG Glucose Carboxyhemoglobin Sodium Chloride Carbon Dioxide BUN Creatinine Glucose POC Glucose 140 H 209 H Lactic Acid Calcium Phosphorus Magnesium Ferritin Total Bilirubin Direct Bilirubin AST ALT Alkaline Phosphatase Ammonia Lactate Dehydrogenase Troponin T C-Reactive Protein Total Protein Albumin Triglycerides Cholesterol HDL Cholesterol Lipase Arterial Blood Glucose Arterial Blood Ionized Calcium Urine WBC (Auto) 103.0 H Salicylates Acetaminophen Coronavirus (PCR) 03/07/21 03/07/21 03/07/21 03:00 05:32 08:16 WBC RBC Hgb Hct MCV MCH RDW Seg Neutrophils % Monocytes % (Manual) Seg Neutrophils # Monocytes # (Manual) PT INR D-Dimer Heparin Anti-Xa Level ABG pH POC ABG pCO2 POC ABG pO2 ABG Hemoglobin 8.9 L ABG Oxyhemoglobin ABG Sodium 131.4 L ABG Potassium ABG Chloride ABG Glucose 224 H Carboxyhemoglobin Sodium 136 L Chloride 95.3 L Carbon Dioxide BUN 45 H Creatinine Glucose 210 H POC Glucose 213 H Lactic Acid Calcium 8.0 L Phosphorus Magnesium Ferritin Total Bilirubin 1.30 H Direct Bilirubin AST 144 H ALT 66 H Alkaline Phosphatase 335 H Ammonia Lactate Dehydrogenase Troponin T C-Reactive Protein Total Protein 4.9 L Albumin 2.1 L Triglycerides Cholesterol HDL Cholesterol Lipase Arterial Blood Glucose 224 H Arterial Blood Ionized Calcium 4.3 L Urine WBC (Auto) Salicylates Acetaminophen Coronavirus (PCR) 03/07/21 03/07/21 03/07/21 08:16 08:16 08:16 WBC RBC 2.47 L Hgb 8.2 L Hct 24.6 L MCV 100 H MCH 33 H RDW 18.1 H Seg Neutrophils % Monocytes % (Manual) Seg Neutrophils # Monocytes # (Manual) PT INR D-Dimer 403.72 H Heparin Anti-Xa Level ABG pH POC ABG pCO2 POC ABG pO2 ABG Hemoglobin ABG Oxyhemoglobin ABG Sodium ABG Potassium ABG Chloride ABG Glucose Carboxyhemoglobin Sodium Chloride Carbon Dioxide BUN Creatinine Glucose POC Glucose Lactic Acid Calcium Phosphorus Magnesium Ferritin Total Bilirubin Direct Bilirubin AST ALT Alkaline Phosphatase Ammonia Lactate Dehydrogenase 453 H Troponin T C-Reactive Protein 32.50 H Total Protein Albumin Triglycerides Cholesterol HDL Cholesterol Lipase Arterial Blood Glucose Arterial Blood Ionized Calcium Urine WBC (Auto) Salicylates Acetaminophen Coronavirus (PCR) 03/07/21 03/07/21 03/07/21 08:16 11:24 17:22 WBC RBC Hgb Hct MCV MCH RDW Seg Neutrophils % Monocytes % (Manual) Seg Neutrophils # Monocytes # (Manual) PT INR D-Dimer Heparin Anti-Xa Level ABG pH POC ABG pCO2 POC ABG pO2 ABG Hemoglobin ABG Oxyhemoglobin ABG Sodium ABG Potassium ABG Chloride ABG Glucose Carboxyhemoglobin Sodium Chloride Carbon Dioxide BUN Creatinine Glucose POC Glucose 205 H 211 H Lactic Acid Calcium Phosphorus Magnesium Ferritin > 2000.0 H Total Bilirubin Direct Bilirubin AST ALT Alkaline Phosphatase Ammonia Lactate Dehydrogenase Troponin T C-Reactive Protein Total Protein Albumin Triglycerides Cholesterol HDL Cholesterol Lipase Arterial Blood Glucose Arterial Blood Ionized Calcium Urine WBC (Auto) Salicylates Acetaminophen Coronavirus (PCR) 03/07/21 03/08/21 03/08/21 Unknown 00:05 04:00 WBC RBC Hgb Hct MCV MCH RDW Seg Neutrophils % Monocytes % (Manual) Seg Neutrophils # Monocytes # (Manual) PT INR D-Dimer Heparin Anti-Xa Level 0.94 H ABG pH 7.452 H POC ABG pCO2 POC ABG pO2 75.5 L ABG Hemoglobin 10.0 L ABG Oxyhemoglobin 93.5 L ABG Sodium 134.7 L ABG Potassium ABG Chloride ABG Glucose 268 H Carboxyhemoglobin 0.3 L Sodium Chloride Carbon Dioxide BUN Creatinine Glucose POC Glucose 253 H Lactic Acid Calcium Phosphorus Magnesium Ferritin Total Bilirubin Direct Bilirubin AST ALT Alkaline Phosphatase Ammonia Lactate Dehydrogenase Troponin T C-Reactive Protein Total Protein Albumin Triglycerides Cholesterol HDL Cholesterol Lipase Arterial Blood Glucose 268 H Arterial Blood Ionized Calcium 4.5 L Urine WBC (Auto) Salicylates Acetaminophen Coronavirus (PCR) 03/08/21 03/08/21 03/08/21 05:27 06:10 06:10 WBC RBC 2.62 L Hgb 8.4 L Hct 26.0 L MCV 100 H MCH RDW 18.0 H Seg Neutrophils % Monocytes % (Manual) Seg Neutrophils # Monocytes # (Manual) PT INR D-Dimer Heparin Anti-Xa Level ABG pH POC ABG pCO2 POC ABG pO2 ABG Hemoglobin ABG Oxyhemoglobin ABG Sodium ABG Potassium ABG Chloride ABG Glucose Carboxyhemoglobin Sodium Chloride Carbon Dioxide BUN 49 H Creatinine Glucose 280 H POC Glucose 273 H Lactic Acid Calcium Phosphorus Magnesium Ferritin Total Bilirubin Direct Bilirubin AST 130 H ALT 68 H Alkaline Phosphatase 440 H Ammonia Lactate Dehydrogenase Troponin T C-Reactive Protein Total Protein 5.3 L Albumin 1.9 L Triglycerides Cholesterol HDL Cholesterol Lipase Arterial Blood Glucose Arterial Blood Ionized Calcium Urine WBC (Auto) Salicylates Acetaminophen Coronavirus (PCR) 03/08/21 03/08/21 03/08/21 11:27 17:56 23:20 WBC RBC Hgb Hct MCV MCH RDW Seg Neutrophils % Monocytes % (Manual) Seg Neutrophils # Monocytes # (Manual) PT INR D-Dimer Heparin Anti-Xa Level ABG pH POC ABG pCO2 POC ABG pO2 ABG Hemoglobin ABG Oxyhemoglobin ABG Sodium ABG Potassium ABG Chloride ABG Glucose Carboxyhemoglobin Sodium Chloride Carbon Dioxide BUN Creatinine Glucose POC Glucose 258 H 279 H 289 H Lactic Acid Calcium Phosphorus Magnesium Ferritin Total Bilirubin Direct Bilirubin AST ALT Alkaline Phosphatase Ammonia Lactate Dehydrogenase Troponin T C-Reactive Protein Total Protein Albumin Triglycerides Cholesterol HDL Cholesterol Lipase Arterial Blood Glucose Arterial Blood Ionized Calcium Urine WBC (Auto) Salicylates Acetaminophen Coronavirus (PCR) 03/09/21 03/09/21 03/09/21 04:00 05:12 08:00 WBC RBC Hgb Hct MCV MCH RDW Seg Neutrophils % Monocytes % (Manual) Seg Neutrophils # Monocytes # (Manual) PT INR D-Dimer 249.59 H Heparin Anti-Xa Level ABG pH 7.456 H POC ABG pCO2 POC ABG pO2 ABG Hemoglobin 8.9 L ABG Oxyhemoglobin ABG Sodium 135.6 L ABG Potassium ABG Chloride ABG Glucose 298 H Carboxyhemoglobin 0.3 L Sodium Chloride Carbon Dioxide BUN Creatinine Glucose POC Glucose 267 H Lactic Acid Calcium Phosphorus Magnesium Ferritin Total Bilirubin Direct Bilirubin AST ALT Alkaline Phosphatase Ammonia Lactate Dehydrogenase Troponin T C-Reactive Protein Total Protein Albumin Triglycerides Cholesterol HDL Cholesterol Lipase Arterial Blood Glucose 298 H Arterial Blood Ionized Calcium 4.5 L Urine WBC (Auto) Salicylates Acetaminophen Coronavirus (PCR) 03/09/21 03/09/21 03/09/21 08:00 08:00 08:00 WBC RBC Hgb Hct MCV MCH RDW Seg Neutrophils % Monocytes % (Manual) Seg Neutrophils # Monocytes # (Manual) PT INR D-Dimer Heparin Anti-Xa Level ABG pH POC ABG pCO2 POC ABG pO2 ABG Hemoglobin ABG Oxyhemoglobin ABG Sodium ABG Potassium ABG Chloride ABG Glucose Carboxyhemoglobin Sodium Chloride Carbon Dioxide BUN 44 H Creatinine Glucose 289 H POC Glucose Lactic Acid Calcium Phosphorus Magnesium Ferritin 2743.0 H Total Bilirubin Direct Bilirubin AST 134 H ALT 62 H Alkaline Phosphatase 527 H Ammonia Lactate Dehydrogenase 459 H Troponin T C-Reactive Protein 10.60 H Total Protein 5.0 L Albumin 2.2 L Triglycerides Cholesterol HDL Cholesterol Lipase Arterial Blood Glucose Arterial Blood Ionized Calcium Urine WBC (Auto) Salicylates Acetaminophen Coronavirus (PCR) 03/09/21 03/09/21 03/09/21 08:00 11:52 18:05 WBC RBC 2.60 L Hgb 8.5 L Hct 25.5 L MCV 98 H MCH 33 H RDW 18.1 H Seg Neutrophils % Monocytes % (Manual) Seg Neutrophils # Monocytes # (Manual) PT INR D-Dimer Heparin Anti-Xa Level ABG pH POC ABG pCO2 POC ABG pO2 ABG Hemoglobin ABG Oxyhemoglobin ABG Sodium ABG Potassium ABG Chloride ABG Glucose Carboxyhemoglobin Sodium Chloride Carbon Dioxide BUN Creatinine Glucose POC Glucose 306 H 293 H Lactic Acid Calcium Phosphorus Magnesium Ferritin Total Bilirubin Direct Bilirubin AST ALT Alkaline Phosphatase Ammonia Lactate Dehydrogenase Troponin T C-Reactive Protein Total Protein Albumin Triglycerides Cholesterol HDL Cholesterol Lipase Arterial Blood Glucose Arterial Blood Ionized Calcium Urine WBC (Auto) Salicylates Acetaminophen Coronavirus (PCR) 03/09/21 03/10/21 03/10/21 23:21 04:38 05:25 WBC RBC Hgb 8.6 L Hct 26.0 L MCV MCH RDW Seg Neutrophils % Monocytes % (Manual) Seg Neutrophils # Monocytes # (Manual) PT INR D-Dimer Heparin Anti-Xa Level ABG pH POC ABG pCO2 POC ABG pO2 ABG Hemoglobin ABG Oxyhemoglobin ABG Sodium ABG Potassium ABG Chloride ABG Glucose Carboxyhemoglobin Sodium Chloride Carbon Dioxide BUN Creatinine Glucose POC Glucose 306 H 310 H Lactic Acid Calcium Phosphorus Magnesium Ferritin Total Bilirubin Direct Bilirubin AST ALT Alkaline Phosphatase Ammonia Lactate Dehydrogenase Troponin T C-Reactive Protein Total Protein Albumin Triglycerides Cholesterol HDL Cholesterol Lipase Arterial Blood Glucose Arterial Blood Ionized Calcium Urine WBC (Auto) Salicylates Acetaminophen Coronavirus (PCR) 03/10/21 03/10/21 03/10/21 05:25 12:33 12:52 WBC RBC Hgb Hct MCV MCH RDW Seg Neutrophils % Monocytes % (Manual) Seg Neutrophils # Monocytes # (Manual) PT INR D-Dimer Heparin Anti-Xa Level ABG pH 7.487 H POC ABG pCO2 POC ABG pO2 62.1 L ABG Hemoglobin 9.4 L ABG Oxyhemoglobin 89.7 L ABG Sodium ABG Potassium ABG Chloride ABG Glucose 350 H Carboxyhemoglobin 0.2 L Sodium Chloride Carbon Dioxide 32 H BUN 45 H Creatinine Glucose 341 H POC Glucose 340 H Lactic Acid Calcium Phosphorus Magnesium Ferritin Total Bilirubin Direct Bilirubin AST ALT Alkaline Phosphatase Ammonia Lactate Dehydrogenase Troponin T C-Reactive Protein Total Protein Albumin Triglycerides Cholesterol HDL Cholesterol Lipase Arterial Blood Glucose 350 H Arterial Blood Ionized Calcium Urine WBC (Auto) Salicylates Acetaminophen Coronavirus (PCR) 03/10/21 03/10/21 03/11/21 17:05 22:57 04:58 WBC RBC Hgb Hct MCV MCH RDW Seg Neutrophils % Monocytes % (Manual) Seg Neutrophils # Monocytes # (Manual) PT INR D-Dimer Heparin Anti-Xa Level ABG pH POC ABG pCO2 POC ABG pO2 ABG Hemoglobin ABG Oxyhemoglobin ABG Sodium ABG Potassium ABG Chloride ABG Glucose Carboxyhemoglobin Sodium Chloride Carbon Dioxide BUN Creatinine Glucose POC Glucose 298 H 241 H 261 H Lactic Acid Calcium Phosphorus Magnesium Ferritin Total Bilirubin Direct Bilirubin AST ALT Alkaline Phosphatase Ammonia Lactate Dehydrogenase Troponin T C-Reactive Protein Total Protein Albumin Triglycerides Cholesterol HDL Cholesterol Lipase Arterial Blood Glucose Arterial Blood Ionized Calcium Urine WBC (Auto) Salicylates Acetaminophen Coronavirus (PCR) 03/11/21 03/11/21 03/11/21 06:54 06:54 06:54 WBC RBC Hgb Hct MCV MCH RDW Seg Neutrophils % Monocytes % (Manual) Seg Neutrophils # Monocytes # (Manual) PT INR D-Dimer 238.43 H Heparin Anti-Xa Level ABG pH POC ABG pCO2 POC ABG pO2 ABG Hemoglobin ABG Oxyhemoglobin ABG Sodium ABG Potassium ABG Chloride ABG Glucose Carboxyhemoglobin Sodium 146 H Chloride Carbon Dioxide 31 H BUN 41 H Creatinine Glucose 255 H POC Glucose Lactic Acid Calcium Phosphorus Magnesium Ferritin 3346.0 H Total Bilirubin Direct Bilirubin AST ALT Alkaline Phosphatase Ammonia Lactate Dehydrogenase 557 H Troponin T C-Reactive Protein 4.70 H Total Protein Albumin Triglycerides Cholesterol HDL Cholesterol Lipase Arterial Blood Glucose Arterial Blood Ionized Calcium Urine WBC (Auto) Salicylates Acetaminophen Coronavirus (PCR) 03/11/21 03/11/21 03/11/21 06:54 11:25 17:41 WBC RBC 2.76 L Hgb 8.9 L Hct 27.0 L MCV 98 H MCH RDW 18.3 H Seg Neutrophils % Monocytes % (Manual) Seg Neutrophils # Monocytes # (Manual) PT INR D-Dimer Heparin Anti-Xa Level ABG pH POC ABG pCO2 POC ABG pO2 ABG Hemoglobin ABG Oxyhemoglobin ABG Sodium ABG Potassium ABG Chloride ABG Glucose Carboxyhemoglobin Sodium Chloride Carbon Dioxide BUN Creatinine Glucose POC Glucose 255 H 292 H Lactic Acid Calcium Phosphorus Magnesium Ferritin Total Bilirubin Direct Bilirubin AST ALT Alkaline Phosphatase Ammonia Lactate Dehydrogenase Troponin T C-Reactive Protein Total Protein Albumin Triglycerides Cholesterol HDL Cholesterol Lipase Arterial Blood Glucose Arterial Blood Ionized Calcium Urine WBC (Auto) Salicylates Acetaminophen Coronavirus (PCR) 03/11/21 03/12/21 03/12/21 23:26 04:44 05:16 WBC RBC Hgb Hct MCV MCH RDW Seg Neutrophils % Monocytes % (Manual) Seg Neutrophils # Monocytes # (Manual) PT INR D-Dimer Heparin Anti-Xa Level ABG pH POC ABG pCO2 POC ABG pO2 ABG Hemoglobin ABG Oxyhemoglobin ABG Sodium ABG Potassium ABG Chloride ABG Glucose Carboxyhemoglobin Sodium Chloride Carbon Dioxide BUN Creatinine Glucose POC Glucose 289 H 255 H Lactic Acid Calcium Phosphorus Magnesium Ferritin Total Bilirubin Direct Bilirubin AST ALT Alkaline Phosphatase Ammonia Lactate Dehydrogenase Troponin T 0.149 H* C-Reactive Protein Total Protein Albumin Triglycerides Cholesterol HDL Cholesterol Lipase Arterial Blood Glucose Arterial Blood Ionized Calcium Urine WBC (Auto) Salicylates Acetaminophen Coronavirus (PCR) Chest x-ray: pending Allied health notes reviewed: nursing
[2021-03-12] MEDS: ZINC SULFATE 220 MG CAP PO SCH ×2 (11:48→11:49)
--- NOTE | 2021-03-12 14:01 | Progress Note ---
Assessment and Plan Cultures: SARS CoV2 PCR: Positive MRSA nasal PCR: Positive 03/01/2021 blood culture: No growth 03/01/2021 urine culture: No growth 03/02/2021 tracheal aspirate: [place] albicans 03/06/2021 blood culture: no growth 03/06/2021 urine culture: No growth A/P: 51-year-old male with COPD, chronic respiratory failure, CHF, diabetes, DVT/PE, morbid obesity on anticoagulation was admitted to the hospital on 03/01/2021 with altered mental status and shortness of breath: #Bilateral pneumonia: secondary to COVID-19. Completed empiric antibiotics. #Acute hypoxic respiratory failure: Now extubated #Morbid obesity #Acute on chronic CHF #Transaminitis: Likely from COVID-19. Elevated LFTs with elevated alkaline phosphatase: RUQ ultrasound did not reveal any evidence of cholelithiasis, cholecystitis or choledocholithiasis. #Acute RLE DVT: On anticoagulation Recs: -IV/PO Dexamethasone 10 mg daily x 10 days, higher dose due to morbid obesity. Ending 03/15/2021 -Completed Remdesivir -Completed empiric antibiotics -on anticoagulation Kamar Schrader MD [facility] ([facility] O: [phone] F: [phone] Subjective Date of service: 03/12/21 Principal diagnosis: Ac hypoxemic resp failure; NSTEMI; ALPHONSO; Sepsis; PNA; CHF; DM II; AMS Interval history: Afebrile, on HFNC. Objective - Exam Narrative Exam: Physical exam deferred to reduce risk of transmission of COVID-19. Please refer to primary team's note. - Constitutional Vitals: Vital Signs Temp Pulse Resp BP Pulse Ox 98.9 F 95 H 13 116/76 95 03/12/21 12:00 03/12/21 11:49 03/12/21 11:49 03/12/21 11:49 03/12/21 11:49 Temperature -Last 24 Hours Temperature 98.9 F Temperature 98.9 F Temperature 99.0 F Temperature 98.8 F Temperature 98.1 F - Labs CBC & Chem 7: 03/11/21 06:54 03/11/21 06:54 Labs: Abnormal lab results 03/11/21 03/11/21 03/12/21 Range/Units 17:41 23:26 04:44 POC Glucose 292 H 289 H (70-105) mg/dL Troponin T 0.149 H* (0.00-0.029) ng/mL 03/12/21 03/12/21 Range/Units 05:16 12:02 POC Glucose 255 H 237 H (70-105) mg/dL Troponin T (0.00-0.029) ng/mL
[2021-03-12] MEDS ORDERED: METOPROLOL TARTRATE 5 MG/5 ML INJ IV PRN (14:15)
[2021-03-12] MEDS ORDERED: SODIUM CHLORIDE 0.9% 1000 ML 1,000 ML ONE (14:31)
[2021-03-12] MEDS ORDERED: ADENOSINE 6 MG/2 ML INJ ONE (14:49)
[2021-03-12] MEDS ORDERED: AMIODARONE 75 MG in DEXTROSE 5% IN WATER 97 ML IV ONE (15:00)
--- NOTE | 2021-03-12 15:07 | Progress Note ---
Assessment and Plan Hypertension * Patient currently on labetolol 100mg BID, Hydralizine 25 mg TID HFpEF * Echo 12/13/2020 - EF 55-60%, otherwise technically difficult study. * Echo 05/2016 - LV mildly dilated, EF 55-60%, grade II diastolic dysfxn, RV mildly enlarged, normal RV sys fxn, LA mildly dilated, RA mildly dilated, mild-mod AR, mild NV, mild aortic root dilatation. * May benefit from addition of gentle IV diuresis when hemodynamically stable. COVID-19 PNA Acute hypoxic resporitary failure * Patient positive for COVID-19 * Secondary to pna * Pulmonology and infectious disease are following DVT of RLE * Patient on Enoxaparin 130mg SQ BID . Plan to transition to Coumadin once patient is hemodynamically stable * He was diagnosed with a LLE DVT in March 2020 and appears to have been on Coumadin as an outpatient. Patient seen in conjunction with Dr. Lassiter who agrees with this plan of care. Will continue to follow. 30min of time pent in care of coordination of this patient Addendum: at was paged to call nurse at 14:30 and was infomred that patient was in SVT with rate [id number]. Evaluated patient and gave 6mg of adenosine. Patient converted to sinus rhythm rate of 88. Initiated amio half bolus of 75mg IV and started amio gtt. Greater thatn 30min of critical care time spent in coordination of care of this patient - Patient Problems (1) ALPHONSO (acute kidney injury) Current Visit: Yes Status: Acute (2) Acute and chronic respiratory failure ([id number]) Current Visit: Yes Status: Acute (3) Acute deep vein thrombosis (DVT) of right lower extremity Current Visit: Yes Status: Acute (4) Encephalopathy Current Visit: Yes Status: Acute (5) NSTEMI (non-ST elevated myocardial infarction) Current Visit: Yes Status: Acute (6) Transaminitis Current Visit: Yes Status: Acute (7) COPD (chronic obstructive pulmonary disease) Current Visit: Yes Status: Chronic (8) Chronic heart failure with preserved ejection fraction (HFpEF) Current Visit: Yes Status: Chronic (9) DM2 (diabetes mellitus, type 2) Current Visit: Yes Status: Chronic (10) H/O: HTN (hypertension) Current Visit: Yes Status: Chronic (11) History of pulmonary embolus (PE) Current Visit: Yes Status: Chronic (12) COVID-19 Current Visit: Yes Status: Acute Subjective Principal diagnosis: Ac hypoxemic resp failure; NSTEMI; ALPHONSO; Sepsis; PNA; CHF; DM II; AMS Interval history: Patient sitting in bed. Sinus tachy 100s on monitor with no events Objective Vital Signs Last Vital Signs Temp 98.9 F 03/12/21 12:00 Pulse 182 H 03/12/21 14:40 Resp 13 03/12/21 11:49 BP 116/76 03/12/21 11:49 Pulse Ox 95 03/12/21 11:49 - Physical Examination General: No Apparent Distress, Other (intubated) HEENT: Positive: Normocephaly Neck: Positive: trachea midline Cardiac: Positive: Regular Rhythm, Tachycardia Lungs: Positive: Decreased Breath Sounds Neuro: Positive: Grossly Intact, Other (intubated) Abdomen: Positive: Soft Skin: Negative: Rash Incision: Cardiac Cath Site Musculoskeletal: No Fluid Collection Extremities: Present: upper extr. pulses, lower extr. pulses, +2 Edema, warm, Other (anasarca) - Imaging and Cardiology EKG: report reviewed, image reviewed Echo: report reviewed (12/2020 - EF 55-60%) Cardiac cath: pending - Telemetry EKG Rhythm: Sinus Tachycardia - EKG Sinus rhythms and dysrhythmias: sinus tachycardia AV and intraventricular conduction: right bundle branch block Repolarization changes or abnormalities: nonspecific abnormality, ST segment, and/or T wave - Allied health notes Allied health notes reviewed: nursing
--- NOTE | 2021-03-12 15:27 | Progress Note ---
Assessment and Plan Assessment and plan: This is a a 51 year old male admitted for for severe sepsis, respiratory failure, pneumonia and ALPHONSO. PMH: COPD, CHF, DM, DVT/PE, HTN, KAM, obesity, asthma PSx: none reported home meds: albuterol sulfate, advair, HCTZ, atrovent, glucophage, Klor-Con, midodrine, metoprolol, lasix, lantus, coumadin (from audit and home meds reconciliation) Social: unknown A/P Neuro: Metabolic encephalopathy -Resolved. -Now extbated Cardio: SR/ST: Acute on Chronic HFpEF (per cards), NSTEMI, h/o HTN, HLD, Prolonged QTc, SVT -Cardiology consulted, appreciate recommendations -midodrine d/c r/t HTN -BP monitoring per protocol -Labetalol PO -Per cardiology: 1. gentle IV diuresis when able 2. Echo 12/13/2020 - EF 55-60%, otherwise technically difficult study. Echo 05/2016 - LV mildly dilated, EF 55-60%, grade II diastolic dysfxn, RV mildly enlarged, normal RV sys fxn, LA mildly dilated, RA mildly dilated, mild-mod AR, mild [place], mild aortic root dilatation. Resp: Acute on chronic hypoxic respiratory failure, Bilateral PNA, hx COPD, KAM, asthma, ?PE -[facility] consulted, appreciate recommendations -MV, wean as tolerated -Intubated 03/01, tube exchange 03/09 OETT 8/0 @ 25 lip -nOW EXTUBATED 03/10 -Continuos SPO2 monitoring -abx with levaquin (03/02-03/07)-DC 03/05 r/t prolonged QTc -03/01 CT chest shows several pulmonary nodules within Right lung measuring 6-8 mm, increased interstitial prominence -? f/u outpt with PCP/pulmanology -03/10 CXR reviewed GI: Transaminitis, TF -GI consulted, appreciate recommendations -Trend LFTs -RUQ US shows no evidence of cholelithiasis, cholecytitis or choledocholithisis -CT abd/pelvis showed fatty infiltration of liver -Ntr consult for TF -PPI -BR [place] -last BM 03/06 -24 hr net (-) 225 : ALPHONSO (stable/resolved) -Nephrology consulted, appreciate recommendations -Pt was on HD at recent hospitalization at OSH -Renally dose mediations -Avoid nephrotoxic medications -Strict I&Os -Renal US shows no significant abnormality -Daily weights -Replete electrolytes -Trend BMP -s/p lasix x 2, prn hydral -Trial lasix again today Heme: DVT-R posterior tibial vein, h/o LLE DVT (December 2019)/ PE (failed Xa inhibitors per cards; on home coumadin) -evidenced on BLE Doppler US -Heparin gtt d/c to lovenox subq (03/09) -SCDs while in bed -Per cards: Eventually plan to transition to Coumadin ID: Severe Sepsis, B PNA, COVID 19 infection -s/p abx therapy (azithromycin 03/01-03/02, aztreonam 03/02, cefepime 03/01-03/02, levaquin 03/02-03/05, flagyl 03/01-03/02, vancomycin 03/01-03/02) -VAP bundle -MRSA (+) nares -COVID 19 PCR (+) -Decadron for 10 days (03/06-03/15) -Remdesivir (03/06-03/10) -Contact/Droplet precautions -03/01 BCx2 with NGTD, UC with NGTD, sputum culture normal sole -03/06 BC NGTD -Prone if needed -Vit C/D/Zinc Endo: DM -SSI, lantus (titrate as needed) -Accuchecks q6 -Avoid hypoglycemia Lines: condom cath, PIV, RADHA Disposition: ICU Full code The high probability of a clinically significant, sudden or life threatening deterioration of the [multi] system(s) required my full and direct attention, intervention and personal management. The aggregate critical care time was [40] minutes. This time is in addition to time spent performing reported procedures but includes the following: [x] Data Review and interpretation [x] Patient assessment and monitoring of vital signs [x] Documentation [x] Medication orders and management History Interval history: This is a 51-year-old -Burmese male with COPD with chronic respiratory failure, CHFpEF, diabetes mellitus, DVT/PE on coumadin and hypertension who presented to [facility] via EMS for AMS and hypoxia. On arrival of EMS oxygen saturation was about 88% on room air, blood pressure was said to be about 88/50 mmHg. Work-up in the emergency room reveals leukocytosis of 12.7, hemoglobin of 9.1 and hematocrit of 27.7, sodium of 132, lactic acid of 2.90, elevated liver enzymes and elevated troponin at 0.493. A CT of the chest showed findings concerning for atelectasis and or infiltrate, CT of the head was unremarkable. Patient was in severe respiratory distress upon arrival in the emergency room and subsequently intubated. Patient was admitted to the hospitalist service with consults to cardiology, CCM, GI, and neprohology for severe sepsis, respiratory failure, pneumonia and ALPHONSO. Of note patient was admitted to [facility] from 12/12-01/14 and was on HD during that admit. 03/03/21: Patient remains intubated, continue on heparin drip, monitor H&H and BMP. Continue empiric antibiotics, ID following. Follow ammonia level and LFT. According to cardiology patient indeed had preserved EF during his recent admission to [place]. Plan to repeat 2D echo. Critical care following, wean o ff from vent as tolerated. 03/04: RN reported blood y secretions in OETT and clots, heparin gtt stopped and B LE US obtained which shows DVT, abx deescalated, heparin gtt restarted. 03/05: RN reported vomiting x1, promithazine x1 given, Qtc at 599 on EKG. AM labs pending. tmax 102.2, reculture with next spike, COVID 19 PCR. abx stopped re prolonged qtc and received CAP coverage. 03/06: Reported high TF residual, COVID PCR pending. Cr better today. tmax 100.7 03/07: radha placed yesterday, started on remdesivir re positive covid. ID consulted yesterday. SHERYL overnight. 03/08: SHERYL reported overnight. Patient is now hypertensive and midodrine has been held. Will now place on low dose antihtn and prn hydral. 03/09: Patient reportedly through tube and OETT was exchanged, patient was given paralytic for exchange. No acute events reported overnight. Patient noted to be hypertensive and we will trial Lasix again today. 03/10: PSV trial today. fentayl was stopped. BP maintaining. SHERYL overnight. 03/11: Patient was extuabted, awaiting Speech therapy, discussed with nursing staff at bedside, considering Hypertensive urgency, will do a bedside swallow eval and give oral meds if passed. Continue aspiration precautions. The patient has hx of Asthma, continue neb treatment. 03/12: Patient remains in ICU care secondary to SVT and unstable hemodynamics. Cardiology reevaluated patient was given adenosine and started on amnio drip. Still awaiting speech therapy evaluation although considering her current condition we will keep the patient n.p.o. Case discussed with compensation coordinator and wood fence installer. Monitor electrolytes and correct as needed. History Interval history: Patient seen and examined, mild hoarseness noted since extubation, HTN per nurs ing staff later today patient went into SVT and was acting a bit confused. Hospitalist Physical - Physical exam Narrative exam: General appearance: Present: no acute distress, well-nourished, obese, - EENT Eyes: Present: PERRL, EOM intact ENT: clear oral mucosa - Neck Neck: Present: normal ROM - Respiratory Respiratory effort: normal Respiratory: bilateral: diminished - Cardiovascular Rhythm: regular Heart Sounds: Present: S1 & S2. Absent: systolic murmur, diastolic murmur - Extremities Extremities: no ischemia, pulses intact, pulses symmetrical, No edema, normal temperature, normal color - Abdominal General gastrointestinal: soft, non-tender, non-distended, normal bowel sounds - Integumentary Integumentary: Present: clear, warm, dry- see full documentation of skin exam in nursing assessment - Psychiatric Psychiatric: cooperative - Neurologic Neurologic: moves all extremities - Allied Health Allied health notes reviewed: nursing, RT - Constitutional Vitals: Temp Pulse Resp BP Pulse Ox 98.9 F 182 H 13 116/76 95 03/12/21 12:00 03/12/21 14:40 03/12/21 11:49 03/12/21 11:49 03/12/21 11:49 General appearance: Present: no acute distress, well-nourished, obese, other (sedated) HEART Score - HEART Score Troponin: Troponin T 0.149 ng/mL (0.00-0.029) H* 03/12/21 04:44 Results - Labs CBC & Chem 7: 03/11/21 06:54 03/11/21 06:54 Labs: Laboratory Last Values WBC 9.6 K/mm3 (4.5-11.0) 03/11/21 06:54 RBC 2.76 M/mm3 (3.65-5.03) L 03/11/21 06:54 Hgb 8.9 gm/dl (11.8-15.2) L 03/11/21 06:54 Hct 27.0 % (35.5-45.6) L 03/11/21 06:54 MCV 98 fl (84-94) H 03/11/21 06:54 MCH 32 pg (28-32) 03/11/21 06:54 MCHC 33 % (32-34) 03/11/21 06:54 RDW 18.3 % (13.2-15.2) H 03/11/21 06:54 Plt Count 233 K/mm3 (140-440) 03/11/21 06:54 Lymph % (Auto) 22.4 % (13.4-35.0) 03/06/21 05:20 [place] % (Auto) 4.5 % (0.0-7.3) 03/06/21 05:20 Eos % (Auto) 0.2 % (0.0-4.3) 03/06/21 05:20 Baso % (Auto) 0.3 % (0.0-1.8) 03/06/21 05:20 Lymph # (Auto) 3.4 K/mm3 (1.2-5.4) 03/06/21 05:20 [place] # (Auto) 0.7 K/mm3 (0.0-0.8) 03/06/21 05:20 Eos # (Auto) 0.0 K/mm3 (0.0-0.4) 03/06/21 05:20 Baso # (Auto) 0.1 K/mm3 (0.0-0.1) 03/06/21 05:20 Add Manual Diff Complete 03/01/21 19:21 Total Counted 100 03/01/21 19:21 Seg Neutrophils % 72.6 % (40.0-70.0) H 03/06/21 05:20 Seg Neuts % (Manual) 49.0 % (40.0-70.0) 03/01/21 19:21 Lymphocytes % (Manual) 32.0 % (13.4-35.0) 03/01/21 19:21 Monocytes % (Manual) 17.0 % (0.0-7.3) H 03/01/21 19:21 Eosinophils % (Manual) 1.0 % (0.0-4.3) 03/01/21 19:21 Basophils % (Manual) 1.0 % (0.0-1.8) 03/01/21 19:21 Nucleated RBC % Not Reportable 03/01/21 19:21 Seg Neutrophils # 11.1 K/mm3 (1.8-7.7) H 03/06/21 05:20 Seg Neutrophils # Man 6.2 K/mm3 (1.8-7.7) 03/01/21 19:21 Band Neutrophils # 0.0 K/mm3 03/01/21 19:21 Lymphocytes # (Manual) 4.1 K/mm3 (1.2-5.4) 03/01/21 19:21 Abs React Lymphs (Man) 0.0 K/mm3 03/01/21 19:21 Monocytes # (Manual) 2.2 K/mm3 (0.0-0.8) H 03/01/21 19:21 Eosinophils # (Manual) 0.1 K/mm3 (0.0-0.4) 03/01/21 19:21 Basophils # (Manual) 0.1 K/mm3 (0.0-0.1) 03/01/21 19:21 Metamyelocytes # 0.0 K/mm3 03/01/21 19:21 Myelocytes # 0.0 K/mm3 03/01/21 19:21 Promyelocytes # 0.0 K/mm3 03/01/21 19:21 Blast Cells # 0.0 K/mm3 03/01/21 19:21 WBC Morphology Not Reportable 03/01/21 19:21 Hypersegmented Neuts Not Reportable 03/01/21 19:21 Hyposegmented Neuts Not Reportable 03/01/21 19:21 Hypogranular Neuts Not Reportable 03/01/21 19:21 Smudge Cells Not Reportable 03/01/21 19:21 Toxic Granulation Not Reportable 03/01/21 19:21 Toxic Vacuolation Not Reportable 03/01/21 19:21 Dohle Bodies Not Reportable 03/01/21 19:21 Pelger-Huet Anomaly Not Reportable 03/01/21 19:21 Katherine Rods Not Reportable 03/01/21 19:21 Platelet Estimate Not Reportable 03/01/21 19:21 Clumped Platelets Not Reportable 03/01/21 19:21 Plt Clumps, EDTA Not Reportable 03/01/21 19:21 Large Platelets Not Reportable 03/01/21 19:21 Giant Platelets Not Reportable 03/01/21 19:21 Platelet Satelliting Not Reportable 03/01/21 19:21 Plt Morphology Comment Not Reportable 03/01/21 19:21 RBC Morphology Not Reportable 03/01/21 19:21 Dimorphic RBCs Not Reportable 03/01/21 19:21 Polychromasia Not Reportable 03/01/21 19:21 Hypochromasia Not Reportable 03/01/21 19:21 Poikilocytosis Not Reportable 03/01/21 19:21 Anisocytosis Rare 03/01/21 19:21 Microcytosis Not Reportable 03/01/21 19:21 Macrocytosis Not Reportable 03/01/21 19:21 Spherocytes Not Reportable 03/01/21 19:21 Pappenheimer Bodies Not Reportable 03/01/21 19:21 Sickle Cells Not Reportable 03/01/21 19:21 Target Cells Not Reportable 03/01/21 19:21 Tear Drop Cells Not Reportable 03/01/21 19:21 Ovalocytes Not Reportable 03/01/21 19:21 Helmet Cells Not Reportable 03/01/21 19:21 Quinones-Wessington Bodies Not Reportable 03/01/21 19:21 Dannemora Rings Not Reportable 03/01/21 19:21 Dusty Cells Not Reportable 03/01/21 19:21 Bite Cells Not Reportable 03/01/21 19:21 Crenated Cell Not Reportable 03/01/21 19:21 Elliptocytes Not Reportable 03/01/21 19:21 Acanthocytes (Spur) Not Reportable 03/01/21 19:21 Rouleaux Not Reportable 03/01/21 19:21 Hemoglobin C Crystals Not Reportable 03/01/21 19:21 Schistocytes Few 03/01/21 19:21 Malaria parasites Not Reportable 03/01/21 19:21 Henry Bodies Not Reportable 03/01/21 19:21 Hem Pathologist Commnt No 03/01/21 19:21 PT 15.6 Sec. (12.2-14.9) H 03/04/21 10:17 INR 1.18 (0.87-1.13) H 03/04/21 10:17 APTT 36.6 Sec. (24.2-36.6) 03/02/21 16:28 D-Dimer 238.43 ng/mlDDU (0-234) H 03/11/21 06:54 Heparin Anti-Xa Level 0.64 U.I./ml (0.3-0.7) 03/08/21 10:30 ABG pH 7.487 (7.320-7.450) H 03/10/21 12:33 POC ABG pCO2 40.4 mmHg (32.0-48.0) 03/10/21 12:33 POC ABG pO2 62.1 mmHg (83-108) L 03/10/21 12:33 POC ABG HCO3 29.9 03/10/21 12:33 ABG O2 Saturation 90.2 (0-100) 03/10/21 12:33 POC ABG Base Excess 6.0 03/10/21 12:33 ABG Hemoglobin 9.4 (12.0-17.5) L 03/10/21 12:33 ABG Oxyhemoglobin 89.7 (94-98) L 03/10/21 12:33 ABG Methemoglobin 0.3 (0.0-1.5) 03/10/21 12:33 ABG Sodium 138.7 mmol/L (136.0-145.0) 03/10/21 12:33 ABG Potassium 3.7 mmol/L (3.40-4.50) 03/10/21 12:33 ABG Chloride 104.0 mmol/L (98-107) 03/10/21 12:33 ABG Glucose 350 mg/dL (65-95) H 03/10/21 12:33 Carboxyhemoglobin 0.2 (0.5-1.5) L 03/10/21 12:33 FiO2 % 35.0 03/10/21 12:33 Sodium 146 mmol/L (137-145) H 03/11/21 06:54 Potassium 4.0 mmol/L (3.6-5.0) 03/11/21 06:54 Chloride 103.9 mmol/L (98-107) 03/11/21 06:54 Carbon Dioxide 31 mmol/L (22-30) H 03/11/21 06:54 Anion Gap 15 mmol/L 03/11/21 06:54 BUN 41 mg/dL (9-20) H 03/11/21 06:54 Creatinine 0.8 mg/dL (0.8-1.3) 03/11/21 06:54 Estimated GFR > 60 ml/min 03/11/21 06:54 BUN/Creatinine Ratio 51 % 03/11/21 06:54 Glucose 255 mg/dL (75-100) H 03/11/21 06:54 POC Glucose 237 mg/dL (70-105) H 03/12/21 12:02 Lactic Acid 1.70 mmol/L (0.7-2.0) 03/04/21 10:17 Calcium 9.4 mg/dL (8.4-10.2) 03/11/21 06:54 Phosphorus 3.30 mg/dL (2.5-4.5) 03/10/21 05:25 Magnesium 2.00 mg/dL (1.7-2.3) 03/11/21 06:54 Ferritin 3346.0 ng/mL (30.0-300.0) H 03/11/21 06:54 Total Bilirubin 1.20 mg/dL (0.1-1.2) 03/09/21 08:00 Direct Bilirubin 0.6 mg/dL (0-0.2) H 03/04/21 05:26 Indirect Bilirubin 0.2 mg/dL 03/04/21 05:26 AST 134 units/L (5-40) H 03/09/21 08:00 ALT 62 units/L (7-56) H 03/09/21 08:00 Alkaline Phosphatase 527 units/L (35-129) H 03/09/21 08:00 Ammonia 71.0 umol/L (25-60) H 03/01/21 19:21 Lactate Dehydrogenase 557 units/L (91-180) H 03/11/21 06:54 Troponin T 0.149 ng/mL (0.00-0.029) H* 03/12/21 04:44 C-Reactive Protein 4.70 mg/dL (0.00-1.30) H 03/11/21 06:54 Total Protein 5.0 g/dL (6.3-8.2) L 03/09/21 08:00 Albumin 2.2 g/dL (3.9-5) L 03/09/21 08:00 Albumin/Globulin Ratio 0.8 % 03/09/21 08:00 Triglycerides 400 mg/dL (2-149) H 03/01/21 19:21 Cholesterol 232 mg/dL (50-199) H 03/01/21 19:21 LDL Cholesterol Direct 130 mg/dL (50-130) 03/01/21 19: HDL Cholesterol 22 mg/dL (40-59) L 03/01/21 19: Cholesterol/HDL Ratio 10.54 % 03/01/21 19: Lipase 78 units/L (13-60) H 03/04/21 10:17 Procalcitonin 1.18 ng/mL (<0.15) 03/08/21 06:10 TSH 1.840 mlU/mL (0.270-4.200) 03/03/21 04:06 Arterial Blood Glucose 350 mg/dL (65-95) H 03/10/21 12:33 Arterial Blood Ionized Calcium 4.6 mg/dL (4.6-5.3) 03/10/21 12:33 Urine Color Ariadne (Yellow) 03/06/21 14:34 Urine Turbidity Cloudy (Clear) 03/06/21 14:34 Urine pH 5.0 (5.0-7.0) 03/06/21 14:34 Ur Specific Tobias 1.014 (1.003-1.030) 03/06/21 14:34 Urine Protein 30 mg/dl mg/dL (Negative) 03/06/21 14:34 Urine Glucose (UA) Neg mg/dL (Negative) 03/06/21 14:34 Urine Ketones Neg mg/dL (Negative) 03/06/21 14:34 Urine Blood Sm (Negative) 03/06/21 14:34 Urine Nitrite Neg (Negative) 03/06/21 14:34 Urine Bilirubin Neg (Negative) 03/06/21 14:34 Urine Urobilinogen 4.0 mg/dL (<2.0) 03/06/21 14:34 Ur Leukocyte Esterase Neg (Negative) 03/06/21 14:34 Urine WBC (Auto) 103.0 /HPF (0.0-6.0) H 03/06/21 14:34 Urine RBC (Auto) 105.0 /HPF (0.0-6.0) 03/06/21 14:34 U Epithel Cells (Auto) 5.0 /HPF (0-13.0) 03/06/21 14:34 Urine Bacteria (Auto) 2+ /HPF (Negative) 03/06/21 14:34 Hyaline Casts 5 /LPF 03/06/21 14:34 Urine Mucus 1+ /HPF 03/06/21 14:34 Urine Yeast (Budding) Few /HPF 03/01/21 21:40 Urine Sperm 3+ /HPF (EXPLOSIVES DETONATOR) 03/06/21 14:34 Nasal Screen MRSA (PCR) Positive (Negative) 03/02/21 05:00 Salicylates < 0.3 mg/dL (2.8-20.0) L 03/01/21 19:21 Urine Opiates Screen Positive 03/01/21 21:40 Urine Methadone Screen Negative 03/01/21 21:40 Acetaminophen 5.0 ug/mL (10.0-30.0) L 03/01/21 19:21 Ur Barbiturates Screen Negative 03/01/21 21:40 Ur Phencyclidine Scrn Negative 03/01/21 21:40 Ur Amphetamines Screen Negative 03/01/21 21:40 U Benzodiazepines Scrn Negative 03/01/21 21:40 Urine Cocaine Screen Negative 03/01/21 21:40 U Marijuana (THC) Screen Negative 03/01/21 21:40 Drugs of Abuse Note Disclamer 03/01/21 21:40 KARLA Screen Negative (Negative) 03/03/21 04:06 Coronavirus (PCR) Positive (Negative) A 03/05/21 Unknown Blood Type O POSITIVE 03/01/21 19:21 Antibody Screen Negative 03/01/21 19:21 Microbiology: Microbiology 03/06/21 13:47 Peripheral/Venous Blood Culture - Final NO GROWTH AFTER 5 DAYS 03/06/21 13:33 Peripheral/Venous Blood Culture - Final NO GROWTH AFTER 5 DAYS Vilchis/IV: Voiding Method Incontinent Active Medications - Current Medications Current Medications: Generic Name Dose Route Start Last Admin Trade Name Freq PRN Reason Stop Dose Admin Acetaminophen 650 mg 03/06/21 10:00 03/06/21 12:33 Acetaminophen 325 Mg/10.15 Ml Oral Liqd Unit Dose FEEDTUBE 650 mg Q6H PRN Administration Pain MILD(1-3)/Fever >100.5/VALDES Albuterol 2.5 mg 03/02/21 15:45 03/11/21 23:05 Albuterol 2.5 Mg/3 Ml Nebu IH 2.5 mg Q4H PRN Administration Shortness Of Breath Lipase/Protease/Amylase 1 each 03/03/21 10:53 Lipase 10,500/Protease 25,000/Amylase 43,750 (Units) Dr Gutierrez FEEDTUBE PRN PRN For Clogged Feeding Tube Ascorbic Acid 500 mg 03/06/21 22:00 03/12/21 10:29 Ascorbic Acid 500 Mg Tab PO 500 mg BID KYLE Administration Aspirin 81 mg 03/04/21 10:00 03/12/21 10:28 Aspirin 81 Mg Tab Chew PO 81 mg QDAY KYLE Administration Cholecalciferol 1,000 unit 03/07/21 10:00 03/12/21 10:28 Cholecalciferol (Vit D3) 1000 Unit (25 Mcg) Tab PO 1,000 unit QDAY KYLE Administration Dexamethasone 10 mg 03/07/21 12:00 03/11/21 11:25 Dexamethasone 4 Mg/Ml Vial IV 03/15/21 12:01 10 mg Q24H KYLE Administration Dextrose 50 ml 03/02/21 11:38 Dextrose 50% In Water (25gm) 50 Ml Syringe IV Q30MIN PRN Hypoglycemia Protocol Enoxaparin Sodium 130 mg 03/09/21 11:00 03/12/21 10:28 Enoxaparin 150 Mg/1 Ml Inj SUB-Q 130 mg Q12HR KYLE Administration Protocol Famotidine 20 mg 03/04/21 10:00 03/12/21 10:30 Famotidine 20 Mg Tab PO 20 mg BID KYLE Administration Guaifenesin 600 mg 03/11/21 22:00 03/12/21 10:27 Guaifenesin Er 600 Mg Tab PO 600 mg BID KYLE Administration Hydralazine HCl 10 mg 03/09/21 08:21 03/11/21 22:03 Hydralazine 20 Mg/1 Ml Inj IV 10 mg Q4H PRN Administration Hypertension Hydralazine HCl 25 mg 03/11/21 14:00 03/12/21 14:25 Hydralazine 25 Mg Tab PO 25 mg TID KYLE Administration Hydrophilic Ointment 1 applic 03/02/21 15:42 Lip Therapy Vaseline TP Q2H PRN Dry Lips Sodium Chloride 1,000 mls @ 1 mls/hr 03/06/21 18:11 Nacl 0.9% 500 Ml IV DIRECT PRN ARTERIAL LINE FLUSH Amiodarone HCl 75 mg/ Dextrose 98.5 mls @ 600 mls/hr 03/12/21 15:00 IV 03/12/21 15:09 ONCE ONE Amiodarone HCl 900 mg/ 500 mls @ 33.333 mls/hr 03/12/21 15:00 Dextrose IV DIRECT KYLE Protocol 1 MG/MIN Insulin Glargine 10 units 03/12/21 22:00 Insulin Glargine 100 Units/Ml SUB-Q QHS KYLE Insulin Human Regular 0 units 03/10/21 18:00 03/12/21 10:26 Insulin Regular, Human 100 Units/1 Ml SUB-Q 6 units Q6HR KYLE Administration Protocol Labetalol HCl 100 mg 03/11/21 14:00 03/12/21 14:25 Labetalol 100 Mg Tab PO 100 mg TID KYLE Administration Magnesium Hydroxide 30 ml 03/02/21 00:18 Magnesium Hydroxide (Mom) Oral Liqd Udc PO Q4H PRN Constipation Metoprolol Tartrate 5 mg 03/12/21 14:15 03/12/21 14:40 Metoprolol Tartrate 5 Mg/5 Ml Inj IV 5 mg Q6HR PRN Administration Tachyarrhythmias Multi-Ingred Cream/Lotion/Oil/Oint 1 applic 03/02/21 15:42 Mineral Oil/Petrolatum, White Ophth Oint 3.5 Gm OU Q4HR PRN Dry Eye(s) Multivitamins/Minerals 1 each 03/03/21 22:00 03/12/21 10:30 Calcium Carb/Vit D3/Minerals 600 Mg/800 Units Tab PO 1 each BID KYLE Administration Senna/Docusate Sodium 1 tab 03/02/21 22:00 03/12/21 10:30 Sennosides/Docusate Sodium 8.6/50 Mg Tab FEEDTUBE 1 tab BID KYLE Administration Simple Syrup 15 ml 03/03/21 10:53 Simple Syrup 15 Ml FEEDTUBE PRN PRN Hypoglycemia Simple Syrup 30 ml 03/03/21 10:53 Simple Syrup 15 Ml FEEDTUBE PRN PRN Hypoglycemia Sodium Bicarbonate 325 mg 03/03/21 10:53 Sodium Bicarbonate 325 Mg Tab FEEDTUBE PRN PRN For Clogged Feeding Tube Sodium Chloride 10 ml 03/02/21 10:00 03/11/21 10:39 Sodium Chloride 0.9% 10 Ml Flush Syringe IV Not Given BID KYLE Sodium Chloride 10 ml 03/02/21 00:18 Sodium Chloride 0.9% 10 Ml Flush Syringe IV PRN PRN LINE FLUSH Zinc Sulfate 220 mg 03/06/21 16:00 03/12/21 11:49 Zinc Sulfate 220 Mg Cap PO 220 mg BID KYLE Administration Nutrition/Malnutrition Assess - Dietary Evaluation Nutrition/Malnutrition Findings: Nutrition Notes Start: 03/02/21 10:10 Freq: Status: Active Protocol: Document 03/11/21 12:15 (Rec: 03/11/21 12:17 [id number]) Nutrition Notes Initial or Follow up Brief Note Current Diagnosis Acute Kidney Injury,COPD, Diabetes,Sepsis,Hypertension, Heart Failure,Respiratory Failure Other Pertinent Diagnosis pneu, AMS, COVID(+) Current Diet Glucerna 1.2 at 65 ml/hr; Flush of 100 ml q4h Subjective/Other Information Pt extubated and awaiting CHEESEMAKER eval. Nutrition Intervention Follow-Up By: 03/13/21 Additional Comments F/u: diet advancement and intakes
[2021-03-12 15:39] LABS: Alanine Aminotransferase 129 units/L (7-56); Blood Urea Nitrogen 39 mg/dL (9-20); Calcium 8.3 mg/dL (8.4-10.2); Hemolysis Index 6
[2021-03-12 15:42] LABS: BUN/Creatinine Ratio 56
--- NOTE | 2021-03-12 15:47 | XRay Report ---
CHEST 1 VIEW INDICATION: Worsening Hypoxemia. COMPARISON: 03/10/2021 FINDINGS: Support devices: Nasogastric tube has been removed. Left arm PICC remains in good position. Heart: Stable mild cardiomegaly. Lungs/Pleura: Stable bilateral pulmonary opacities or congestive changes. A small left pleural effusi on has developed. No pneumothorax. Additional findings: None. IMPRESSION: Stable cardiomegaly and bilateral congestive changes/opacities. New small left pleural effusion. Signer Name: Zaid Suárez Jr, MD Signed: 03/12/2021 3:42 PM Workstation Name: [id number]
[2021-03-12] MEDS: dexAMETHasone 4 MG/ML VIAL IV SCH (16:37)
[2021-03-12] MEDS: AMIODARONE 900 MG in DEXTROSE 5% IN WATER 482 ML IV SCH (16:37)
--- NOTE | 2021-03-12 18:16 | Electrocardiograph Report ---
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
[2021-03-13] MEDS: hydrALAZINE 25 MG TAB PO SCH ×4 (06:46→21:13)
[2021-03-13] MEDS: CALCIUM CARB/VIT D3/MINERALS 600 MG/800 UNITS TAB PO SCH ×3 (06:47→22:00)
[2021-03-13] MEDS: ENOXAPARIN 150 MG/1 ML INJ SUB-Q SCH ×3 (06:47→21:58)
[2021-03-13] MEDS: guaiFENesin ER 600 MG TAB PO SCH ×3 (06:48→22:01)
[2021-03-13] MEDS: FAMOTIDINE 20 MG TAB PO SCH ×3 (06:48→22:01)
[2021-03-13] MEDS: SENNOSIDES/DOCUSATE SODIUM 8.6/50 MG TAB FEEDTUBE SCH ×3 (06:48→22:00)
[2021-03-13] MEDS: ASCORBIC ACID 500 MG TAB PO SCH ×3 (06:49→22:01)
[2021-03-13] MEDS: ZINC SULFATE 220 MG CAP PO SCH ×3 (06:49→22:01)
[2021-03-13] MEDS ORDERED: MAGNESIUM SULFATE 2 GM/50 ML BAG IV ONE (08:00)
[2021-03-13] MEDS: INSULIN GLARGINE 100 UNITS/ML SUB-Q SCH ×2 (08:04→21:13)
[2021-03-13] MEDS: INSULIN REGULAR, HUMAN 100 UNITS/1 ML SUB-Q SCH ×3 (08:04→17:22)
[2021-03-13] MEDS ORDERED: MAGNESIUM SULFATE 1 GM in SODIUM CHLORIDE 0.9% 50 ML IV ONE (08:57)
--- NOTE | 2021-03-13 09:26 | Progress Note ---
Assessment and Plan Assessment and plan: This is a a 51 year old male admitted for for severe sepsis, respiratory failure, pneumonia and ALPHONSO. PMH: COPD, CHF, DM, DVT/PE, HTN, KAM, obesity, asthma PSx: none reported home meds: albuterol sulfate, advair, HCTZ, atrovent, glucophage, Klor-Con, midodrine, metoprolol, lasix, lantus, coumadin (from audit and home meds reconciliation) Social: unknown A/P Neuro: Metabolic encephalopathy -Resolved. -Now extbated Cardio: SR/ST: Acute on Chronic HFpEF (per cards), NSTEMI, h/o HTN, HLD, Prolonged QTc, SVT -Cardiology consulted, appreciate recommendations -midodrine d/c r/t HTN -BP monitoring per protocol -Labetalol PO -Per cardiology: 1. gentle IV diuresis when able 2. Echo 12/13/2020 - EF 55-60%, otherwise technically difficult study. Echo 05/2016 - LV mildly dilated, EF 55-60%, grade II diastolic dysfxn, RV mildly enlarged, normal RV sys fxn, LA mildly dilated, RA mildly dilated, mild-mod AR, mild MN, mild aortic root dilatation. Resp: Acute on chronic hypoxic respiratory failure, Bilateral PNA, hx COPD, KAM, asthma, ?PE -[facility] consulted, appreciate recommendations -MV, wean as tolerated -Intubated 03/01, tube exchange 03/09 OETT 8/0 @ 25 lip -nOW EXTUBATED 03/10 -Continuos SPO2 monitoring -abx with levaquin (03/02-03/07)-DC 03/05 r/t prolonged QTc -03/01 CT chest shows several pulmonary nodules within Right lung measuring 6-8 mm, increased interstitial prominence -? f/u outpt with PCP/pulmanology -03/10 CXR reviewed GI: Transaminitis, TF -GI consulted, appreciate recommendations -Trend LFTs -RUQ US shows no evidence of cholelithiasis, cholecytitis or choledocholithisis -CT abd/pelvis showed fatty infiltration of liver -Ntr consult for TF -PPI -BR [place] -last BM 03/06 -24 hr net (-) 225 : ALPHONSO (stable/resolved) -Nephrology consulted, appreciate recommendations -Pt was on HD at recent hospitalization at OSH -Renally dose mediations -Avoid nephrotoxic medications -Strict I&Os -Renal US shows no significant abnormality -Daily weights -Replete electrolytes -Trend BMP -s/p lasix x 2, prn hydral -Trial lasix again today Heme: DVT-R posterior tibial vein, h/o LLE DVT (December 2019)/ PE (failed Xa inhibitors per cards; on home coumadin) -evidenced on BLE Doppler US -Heparin gtt d/c to lovenox subq (03/09) -SCDs while in bed -Per cards: Eventually plan to transition to Coumadin ID: Severe Sepsis, B PNA, COVID 19 infection -s/p abx therapy (azithromycin 03/01-03/02, aztreonam 03/02, cefepime 03/01-03/02, levaquin 03/02-03/05, flagyl 03/01-03/02, vancomycin 03/01-03/02) -VAP bundle -MRSA (+) nares -COVID 19 PCR (+) -Decadron for 10 days (03/06-03/15) -Remdesivir (03/06-03/10) -Contact/Droplet precautions -03/01 BCx2 with NGTD, UC with NGTD, sputum culture normal sole -03/06 BC NGTD -Prone if needed -Vit C/D/Zinc Endo: DM -SSI, lantus (titrate as needed) -Accuchecks q6 -Avoid hypoglycemia FEN: Hypokalemia, Hypomagenesmia- Replace lines: condom cath, PIV, RADHA Disposition: ICU Full code The high probability of a clinically significant, sudden or life threatening deterioration of the [multi] system(s) required my full and direct attention, intervention and personal management. The aggregate critical care time was [40] minutes. This time is in addition to time spent performing reported procedures but includes the following: [x] Data Review and interpretation [x] Patient assessment and monitoring of vital signs [x] Documentation [x] Medication orders and management History Interval history: This is a 51-year-old -[place]er male with COPD with chronic respiratory failure, CHFpEF, diabetes mellitus, DVT/PE on coumadin and hypertension who p resented to [facility] via EMS for AMS and hypoxia. On arrival of EMS oxygen saturation was about 88% on room air, blood pressure was said to be about 88/50 mmHg. Work-up in the emergency room reveals leukocytosis of 12.7, hemoglobin of 9.1 and hematocrit of 27.7, sodium of 132, lactic acid of 2.90, elevated liver enzymes and elevated troponin at 0.493. A CT of the chest showed findings concerning for atelectasis and or infiltrate, CT of the head was unremarkable. Patient was in severe respiratory distress upon arrival in the emergency room and subsequently intubated. Patient was admitted to the hospitalist service with consults to cardiology, CCM, GI, and neprohology for severe sepsis, respiratory failure, pneumonia and ALPHONSO. Of note patient was admitted to [facility] from 12/12-01/14 and was on HD during that admit. 03/03/21: Patient remains intubated, continue on heparin drip, monitor H&H and BMP. Continue empiric antibiotics, ID following. Follow ammonia level and LFT. According to cardiology patient indeed had preserved EF during his recent admission to [facility]. Plan to repeat 2D echo. Critical care following, wean off from vent as tolerated. 03/04: RN reported blood y secretions in OETT and clots, heparin gtt stopped and B LE US obtained which shows DVT, abx deescalated, heparin gtt restarted. 03/05: RN reported vomiting x1, promithazine x1 given, Qtc at 599 on EKG. AM labs pending. tmax 102.2, reculture with next spike, COVID 19 PCR. abx stopped re prolonged qtc and received CAP coverage. 03/06: Reported high TF residual, COVID PCR pending. Cr better today. tmax 100.7 03/07: radha placed yesterday, started on remdesivir re positive covid. ID consulted yesterday. SHERYL overnight. 03/08: SHERYL reported overnight. Patient is now hypertensive and midodrine has been held. Will now place on low dose antihtn and prn hydral. 03/09: Patient reportedly through tube and OETT was exchanged, patient was given paralytic for exchange. No acute events reported overnight. Patient noted to be hypertensive and we will trial Lasix again today. 03/10: PSV trial today. fentayl was stopped. BP maintaining. SHERYL overnight. 03/11: Patient was extuabted, awaiting Speech therapy, discussed with nursing staff at bedside, considering Hypertensive urgency, will do a bedside swallow eval and give oral meds if passed. Continue aspiration precautions. The patient has hx of Asthma, continue neb treatment. 03/12: Patient remains in ICU care secondary to SVT and unstable hemodynamics. Cardiology reevaluated patient was given adenosine and started on amnio drip. Still awaiting speech therapy evaluation although considering her current condition we will keep the patient n.p.o. Case discussed with business intelligence developer and fig washer. Monitor electrolytes and correct as needed. 03/13: Patient this morning remains in normal sinus rhythm following the adenosine and amnio drip which is still going the latter I mean. I will start the patient on Lasix for 3 days and monitor her renal function. Patient is already on high dose of dexamethasone considering his history of bronchospasm disease. We will repeat a pulmonary evaluation we will correct electrolytes especially with the Lasix. CCT 35 pLAN DISCUSSED WITH THE PATIENT AND NURSE History Interval history: Patient seen and examined, seen and examined this morning. No new confusion noted. Discussed with nursing staff at bedside the patient has been refusing therapy. Discussed with the patient he refused his BiPAP because he says that he is short of breath when he puts the BiPAP on. He tolerated some diet nursing staff at bedside is going to be released on restraints. He does appear edematous. Hospitalist Physical - Physical exam Narrative exam: General appearance: Present: no acute distress, well-nourished, obese, generalized anasarca although improving - EENT Eyes: Present: PERRL, EOM intact ENT: clear oral mucosa - Neck Neck: Present: normal ROM - Respiratory Respiratory effort: normal Respiratory: bilateral: diminished - Cardiovascular Rhythm: regular Heart Sounds: Present: S1 & S2. Absent: systolic murmur, diastolic murmur - Extremities Extremities: no ischemia, pulses intact, pulses symmetrical, pitting edema, normal temperature, normal color - Abdominal General gastrointestinal: soft, non-tender, non-distended, normal bowel sounds - Integumentary Integumentary: Present: clear, warm, dry- see full documentation of skin exam in nursing assessment - Psychiatric Psychiatric: cooperative - Neurologic Neurologic: moves all extremities - Allied Health Allied health notes reviewed: nursing, RT - Constitutional Vitals: Temp Pulse Resp BP Pulse Ox 99.0 F 83 12 129/83 88 03/13/21 04:00 03/13/21 08:00 03/13/21 08:00 03/13/21 08:00 03/13/21 08:09 General appearance: Present: no acute distress, well-nourished, obese, other (sedated) HEART Score - HEART Score Troponin: Troponin T 0.149 ng/mL (0.00-0.029) H* 03/12/21 04:44 Results - Labs CBC & Chem 7: 03/11/21 06:54 03/12/21 15:00 Labs: Laboratory Last Values WBC 9.6 K/mm3 (4.5-11.0) 03/11/21 06:54 RBC 2.76 M/mm3 (3.65-5.03) L 03/11/21 06:54 Hgb 8.9 gm/dl (11.8-15.2) L 03/11/21 06:54 Hct 27.0 % (35.5-45.6) L 03/11/21 06:54 MCV 98 fl (84-94) H 03/11/21 06:54 MCH 32 pg (28-32) 03/11/21 06:54 MCHC 33 % (32-34) 03/11/21 06:54 RDW 18.3 % (13.2-15.2) H 03/11/21 06:54 Plt Count 233 K/mm3 (140-440) 03/11/21 06:54 Lymph % (Auto) 22.4 % (13.4-35.0) 03/06/21 05:20 [place] % (Auto) 4.5 % (0.0-7.3) 03/06/21 05:20 Eos % (Auto) 0.2 % (0.0-4.3) 03/06/21 05:20 Baso % (Auto) 0.3 % (0.0-1.8) 03/06/21 05:20 Lymph # (Auto) 3.4 K/mm3 (1.2-5.4) 03/06/21 05:20 [place] # (Auto) 0.7 K/mm3 (0.0-0.8) 03/06/21 05:20 Eos # (Auto) 0.0 K/mm3 (0.0-0.4) 03/06/21 05:20 Baso # (Auto) 0.1 K/mm3 (0.0-0.1) 03/06/21 05:20 Add Manual Diff Complete 03/01/21 19:21 Total Counted 100 03/01/21 19:21 Seg Neutrophils % 72.6 % (40.0-70.0) H 03/06/21 05:20 Seg Neuts % (Manual) 49.0 % (40.0-70.0) 03/01/21 19:21 Lymphocytes % (Manual) 32.0 % (13.4-35.0) 03/01/21 19:21 Monocytes % (Manual) 17.0 % (0.0-7.3) H 03/01/21 19:21 Eosinophils % (Manual) 1.0 % (0.0-4.3) 03/01/21 19:21 Basophils % (Manual) 1.0 % (0.0-1.8) 03/01/21 19:21 Nucleated RBC % Not Reportable 03/01/21 19:21 Seg Neutrophils # 11.1 K/mm3 (1.8-7.7) H 03/06/21 05:20 Seg Neutrophils # Man 6.2 K/mm3 (1.8-7.7) 03/01/21 19:21 Band Neutrophils # 0.0 K/mm3 03/01/21 19:21 Lymphocytes # (Manual) 4.1 K/mm3 (1.2-5.4) 03/01/21 19:21 Abs React Lymphs (Man) 0.0 K/mm3 03/01/21 19:21 Monocytes # (Manual) 2.2 K/mm3 (0.0-0.8) H 03/01/21 19:21 Eosinophils # (Manual) 0.1 K/mm3 (0.0-0.4) 03/01/21 19:21 Basophils # (Manual) 0.1 K/mm3 (0.0-0.1) 03/01/21 19:21 Metamyelocytes # 0.0 K/mm3 03/01/21 19:21 Myelocytes # 0.0 K/mm3 03/01/21 19:21 Promyelocytes # 0.0 K/mm3 03/01/21 19:21 Blast Cells # 0.0 K/mm3 03/01/21 19:21 WBC Morphology Not Reportable 03/01/21 19:21 Hypersegmented Neuts Not Reportable 03/01/21 19:21 Hyposegmented Neuts Not Reportable 03/01/21 19:21 Hypogranular Neuts Not Reportable 03/01/21 19:21 Smudge Cells Not Reportable 03/01/21 19:21 Toxic Granulation Not Reportable 03/01/21 19:21 Toxic Vacuolation Not Reportable 03/01/21 19:21 Dohle Bodies Not Reportable 03/01/21 19:21 Pelger-Huet Anomaly Not Reportable 03/01/21 19:21 Katherine Rods Not Reportable 03/01/21 19:21 Platelet Estimate Not Reportable 03/01/21 19:21 Clumped Platelets Not Reportable 03/01/21 19:21 Plt Clumps, EDTA Not Reportable 03/01/21 19:21 Large Platelets Not Reportable 03/01/21 19:21 Giant Platelets Not Reportable 03/01/21 19:21 Platelet Satelliting Not Reportable 03/01/21 19:21 Plt Morphology Comment Not Reportable 03/01/21 19:21 RBC Morphology Not Reportable 03/01/21 19:21 Dimorphic RBCs Not Reportable 03/01/21 19:21 Polychromasia Not Reportable 03/01/21 19:21 Hypochromasia Not Reportable 03/01/21 19:21 Poikilocytosis Not Reportable 03/01/21 19:21 Anisocytosis Rare 03/01/21 19:21 Microcytosis Not Reportable 03/01/21 19:21 Macrocytosis Not Reportable 03/01/21 19:21 Spherocytes Not Reportable 03/01/21 19:21 Pappenheimer Bodies Not Reportable 03/01/21 19:21 Sickle Cells Not Reportable 03/01/21 19:21 Target Cells Not Reportable 03/01/21 19:21 Tear Drop Cells Not Reportable 03/01/21 19:21 Ovalocytes Not Reportable 03/01/21 19:21 Helmet Cells Not Reportable 03/01/21 19:21 Quinones-Toxey Bodies Not Reportable 03/01/21 19:21 [place] Rings Not Reportable 03/01/21 19:21 [place] Cells Not Reportable 03/01/21 19:21 Bite Cells Not Reportable 03/01/21 19:21 Crenated Cell Not Reportable 03/01/21 19:21 Elliptocytes Not Reportable 03/01/21 19:21 Acanthocytes (Spur) Not Reportable 03/01/21 19:21 Rouleaux Not Reportable 03/01/21 19:21 Hemoglobin C Crystals Not Reportable 03/01/21 19:21 Schistocytes Few 03/01/21 19:21 Malaria parasites Not Reportable 03/01/21 19:21 Henry Bodies Not Reportable 03/01/21 19:21 Hem Pathologist Commnt No 03/01/21 19:21 PT 15.6 Sec. (12.2-14.9) H 03/04/21 10:17 INR 1.18 (0.87-1.13) H 03/04/21 10:17 APTT 36.6 Sec. (24.2-36.6) 03/02/21 16:28 D-Dimer 238.43 ng/mlDDU (0-234) H 03/11/21 06:54 Heparin Anti-Xa Level 0.64 U.I./ml (0.3-0.7) 03/08/21 10:30 ABG pH 7.487 (7.320-7.450) H 03/10/21 12:33 POC ABG pCO2 40.4 mmHg (32.0-48.0) 03/10/21 12:33 POC ABG pO2 62.1 mmHg (83-108) L 03/10/21 12:33 POC ABG HCO3 29.9 03/10/21 12:33 ABG O2 Saturation 90.2 (0-100) 03/10/21 12:33 POC ABG Base Excess 6.0 03/10/21 12:33 ABG Hemoglobin 9.4 (12.0-17.5) L 03/10/21 12:33 ABG Oxyhemoglobin 89.7 (94-98) L 03/10/21 12:33 ABG Methemoglobin 0.3 (0.0-1.5) 03/10/21 12:33 ABG Sodium 138.7 mmol/L (136.0-145.0) 03/10/21 12:33 ABG Potassium 3.7 mmol/L (3.40-4.50) 03/10/21 12:33 ABG Chloride 104.0 mmol/L (98-107) 03/10/21 12:33 ABG Glucose 350 mg/dL (65-95) H 03/10/21 12:33 Carboxyhemoglobin 0.2 (0.5-1.5) L 03/10/21 12:33 FiO2 % 35.0 03/10/21 12:33 Sodium 144 mmol/L (137-145) 03/12/21 15:00 Potassium 3.2 mmol/L (3.6-5.0) L 03/12/21 15:00 Chloride 103.2 mmol/L (98-107) 03/12/21 15:00 Carbon Dioxide 29 mmol/L (22-30) 03/12/21 15:00 Anion Gap 15 mmol/L 03/12/21 15:00 BUN 39 mg/dL (9-20) H 03/12/21 15:00 Creatinine 0.7 mg/dL (0.8-1.3) L 03/12/21 15:00 Estimated GFR > 60 ml/min 03/12/21 15:00 BUN/Creatinine Ratio 56 % 03/12/21 15:00 Glucose 258 mg/dL (75-100) H 03/12/21 15:00 POC Glucose 247 mg/dL (70-105) H 03/13/21 05:44 Lactic Acid 1.70 mmol/L (0.7-2.0) 03/04/21 10:17 Calcium 8.3 mg/dL (8.4-10.2) L 03/12/21 15:00 Phosphorus 3.30 mg/dL (2.5-4.5) 03/10/21 05:25 Magnesium 1.70 mg/dL (1.7-2.3) 03/12/21 15:00 Ferritin 3346.0 ng/mL (30.0-300.0) H 03/11/21 06:54 Total Bilirubin 2.20 mg/dL (0.1-1.2) H 03/12/21 15:00 Direct Bilirubin 0.6 mg/dL (0-0.2) H 03/04/21 05:26 Indirect Bilirubin 0.2 mg/dL 03/04/21 05:26 AST 181 units/L (5-40) H 03/12/21 15:00 ALT 129 units/L (7-56) H 03/12/21 15:00 Alkaline Phosphatase 541 units/L (35-129) H 03/12/21 15:00 Ammonia 71.0 umol/L (25-60) H 03/01/21 19:21 Lactate Dehydrogenase 557 units/L (91-180) H 03/11/21 06:54 Troponin T 0.149 ng/mL (0.00-0.029) H* 03/12/21 04:44 C-Reactive Protein 4.70 mg/dL (0.00-1.30) H 03/11/21 06:54 Total Protein 5.0 g/dL (6.3-8.2) L 03/12/21 15:00 Albumin 2.0 g/dL (3.9-5) L 03/12/21 15:00 Albumin/Globulin Ratio 0.7 % 03/12/21 15:00 Triglycerides 400 mg/dL (2-149) H 03/01/21 19: Cholesterol 232 mg/dL (50-199) H 03/01/21 19:21 LDL Cholesterol Direct 130 mg/dL (50-130) 03/01/21 19: HDL Cholesterol 22 mg/dL (40-59) L 03/01/21 19: Cholesterol/HDL Ratio 10.54 % 03/01/21 19: Lipase 78 units/L (13-60) H 03/04/21 10:17 Procalcitonin 1.18 ng/mL (<0.15) 03/08/21 06:10 TSH 1.840 mlU/mL (0.270-4.200) 03/03/21 04:06 Arterial Blood Glucose 350 mg/dL (65-95) H 03/10/21 12:33 Arterial Blood Ionized Calcium 4.6 mg/dL (4.6-5.3) 03/10/21 12:33 Urine Color [place] (Yellow) 03/06/21 14:34 Urine Turbidity Cloudy (Clear) 03/06/21 14:34 Urine pH 5.0 (5.0-7.0) 03/06/21 14:34 Ur Specific [place] 1.014 (1.003-1.030) 03/06/21 14:34 Urine Protein 30 mg/dl mg/dL (Negative) 03/06/21 14:34 Urine Glucose (UA) Neg mg/dL (Negative) 03/06/21 14:34 Urine Ketones Neg mg/dL (Negative) 03/06/21 14:34 Urine Blood Sm (Negative) 03/06/21 14:34 Urine Nitrite Neg (Negative) 03/06/21 14:34 Urine Bilirubin Neg (Negative) 03/06/21 14:34 Urine Urobilinogen 4.0 mg/dL (<2.0) 03/06/21 14:34 Ur Leukocyte Esterase Neg (Negative) 03/06/21 14:34 Urine WBC (Auto) 103.0 /HPF (0.0-6.0) H 03/06/21 14:34 Urine RBC (Auto) 105.0 /HPF (0.0-6.0) 03/06/21 14:34 U Epithel Cells (Auto) 5.0 /HPF (0-13.0) 03/06/21 14:34 Urine Bacteria (Auto) 2+ /HPF (Negative) 03/06/21 14:34 Hyaline Casts 5 /LPF 03/06/21 14:34 Urine Mucus 1+ /HPF 03/06/21 14:34 Urine Yeast (Budding) Few /HPF 03/01/21 21:40 Urine Sperm 3+ /HPF (FLYING TEACHER) 03/06/21 14:34 Nasal Screen MRSA (PCR) Positive (Negative) 03/02/21 05:00 Salicylates < 0.3 mg/dL (2.8-20.0) L 03/01/21 19:21 Urine Opiates Screen Positive 03/01/21 21:40 Urine Methadone Screen Negative 03/01/21 21:40 Acetaminophen 5.0 ug/mL (10.0-30.0) L 03/01/21 19:21 Ur Barbiturates Screen Negative 03/01/21 21:40 Ur Phencyclidine Scrn Negative 03/01/21 21:40 Ur Amphetamines Screen Negative 03/01/21 21:40 U Benzodiazepines Scrn Negative 03/01/21 21:40 Urine Cocaine Screen Negative 03/01/21 21:40 U Marijuana (THC) Screen Negative 03/01/21 21:40 Drugs of Abuse Note Disclamer 03/01/21 21:40 KARLA Screen Negative (Negative) 03/03/21 04:06 Coronavirus (PCR) Positive (Negative) A 03/05/21 Unknown Blood Type O POSITIVE 03/01/21 19:21 Antibody Screen Negative 03/01/21 19:21 Vilchis/IV: Voiding Method Incontinent Active Medications - Current Medications Current Medications: Generic Name Dose Route Start Last Admin Trade Name Freq PRN Reason Stop Dose Admin Acetaminophen 650 mg 03/06/21 10:00 03/06/21 12:33 Acetaminophen 325 Mg/10.15 Ml Oral Liqd Unit Dose FEEDTUBE 650 mg Q6H PRN Administration Pain MILD(1-3)/Fever >100.5/VALDES Albuterol 2.5 mg 03/02/21 15:45 03/11/21 23:05 Albuterol 2.5 Mg/3 Ml Nebu IH 2.5 mg Q4H PRN Administration Shortness Of Breath Lipase/Protease/Amylase 1 each 03/03/21 10:53 Lipase 10,500/Protease 25,000/Amylase 43,750 (Units) Dr Gutierrez FEEDTUBE PRN PRN For Clogged Feeding Tube Ascorbic Acid 500 mg 03/06/21 22:00 03/13/21 06:49 Ascorbic Acid 500 Mg Tab PO Not Given BID KYLE Aspirin 81 mg 03/04/21 10:00 03/12/21 10:28 Aspirin 81 Mg Tab Chew PO 81 mg QDAY KYLE Administration Cholecalciferol 1,000 unit 03/07/21 10:00 03/12/21 10:28 Cholecalciferol (Vit D3) 1000 Unit (25 Mcg) Tab PO 1,000 unit QDAY KYLE Administration Dexamethasone 10 mg 03/07/21 12:00 03/12/21 16:37 Dexamethasone 4 Mg/Ml Vial IV 03/15/21 12:01 10 mg Q24H KYLE Administration Dextrose 50 ml 03/02/21 11:38 Dextrose 50% In Water (25gm) 50 Ml Syringe IV Q30MIN PRN Hypoglycemia Protocol Enoxaparin Sodium 130 mg 03/09/21 11:00 03/13/21 06:47 Enoxaparin 150 Mg/1 Ml Inj SUB-Q Not Given Q12HR KYLE Protocol Famotidine 20 mg 03/04/21 10:00 03/13/21 06:48 Famotidine 20 Mg Tab PO Not Given BID KYLE Furosemide 40 mg 03/13/21 10:00 Furosemide 40 Mg/4 Ml Inj IV 03/15/21 10:01 DAILY KYLE Guaifenesin 600 mg 03/11/21 22:00 03/13/21 06:48 Guaifenesin Er 600 Mg Tab PO Not Given BID KYLE Hydralazine HCl 10 mg 03/09/21 08:21 03/11/21 22:03 Hydralazine 20 Mg/1 Ml Inj IV 10 mg Q4H PRN Administration Hypertension Hydralazine HCl 25 mg 03/11/21 14:00 03/13/21 06:46 Hydralazine 25 Mg Tab PO Not Given TID KYLE Hydrophilic Ointment 1 applic 03/02/21 15:42 Lip Therapy Vaseline TP Q2H PRN Dry Lips Sodium Chloride 1,000 mls @ 1 mls/hr 03/06/21 18:11 Nacl 0.9% 500 Ml IV DIRECT PRN ARTERIAL LINE FLUSH Amiodarone HCl 900 mg/ 500 mls @ 33.333 mls/hr 03/12/21 16:00 03/12/21 22:30 Dextrose IV 0.5 mg/min DIRECT KYLE 16.667 mls/hr Infusion Protocol 1 MG/MIN Magnesium Sulfate 2 gm in 50 mls @ 25 mls/hr 03/13/21 08:00 Magnesium Sulfate 2gm/50ml IV 03/13/21 09:59 ONCE ONE Potassium Chloride 10 meq in 100 mls @ 100 mls/hr 03/13/21 09:15 Kcl 10meq/100ml IV 03/13/21 13:14 Q1H [facility] Insulin Glargine 10 units 03/12/21 22:00 03/13/21 08:04 Insulin Glargine 100 Units/Ml SUB-Q Not Given QHS [facility] Insulin Human Regular 0 units 03/10/21 18:00 03/13/21 08:04 Insulin Regular, Human 100 Units/1 Ml SUB-Q Not Given Q6HR [facility] Protocol Labetalol HCl 100 mg 03/11/21 14:00 03/13/21 06:46 Labetalol 100 Mg Tab PO Not Given TID KYLE Magnesium Hydroxide 30 ml 03/02/21 00:18 Magnesium Hydroxide (Mom) Oral Liqd Udc PO Q4H PRN Constipation Metoprolol Tartrate 5 mg 03/12/21 14:15 03/12/21 14:40 Metoprolol Tartrate 5 Mg/5 Ml Inj IV 5 mg Q6HR PRN Administration Tachyarrhythmias Multi-Ingred Cream/Lotion/Oil/Oint 1 applic 03/02/21 15:42 Mineral Oil/Petrolatum, White Ophth Oint 3.5 Gm OU Q4HR PRN Dry Eye(s) Multivitamins/Minerals 1 each 03/03/21 22:00 03/13/21 06:47 Calcium Carb/Vit D3/Minerals 600 Mg/800 Units Tab PO Not Given BID KYLE Senna/Docusate Sodium 1 tab 03/02/21 22:00 03/13/21 06:48 Sennosides/Docusate Sodium 8.6/50 Mg Tab FEEDTUBE Not Given BID KYLE Simple Syrup 15 ml 03/03/21 10:53 Simple Syrup 15 Ml FEEDTUBE PRN PRN Hypoglycemia Simple Syrup 30 ml 03/03/21 10:53 Simple Syrup 15 Ml FEEDTUBE PRN PRN Hypoglycemia Sodium Bicarbonate 325 mg 03/03/21 10:53 Sodium Bicarbonate 325 Mg Tab FEEDTUBE PRN PRN For Clogged Feeding Tube Sodium Chloride 10 ml 03/02/21 10:00 03/13/21 08:04 Sodium Chloride 0.9% 10 Ml Flush Syringe IV Not Given BID KYLE Sodium Chloride 10 ml 03/02/21 00:18 Sodium Chloride 0.9% 10 Ml Flush Syringe IV PRN PRN LINE FLUSH Zinc Sulfate 220 mg 03/06/21 16:00 03/13/21 06:49 Zinc Sulfate 220 Mg Cap PO Not Given BID KYLE Nutrition/Malnutrition Assess - Dietary Evaluation Nutrition/Malnutrition Findings: Nutrition Notes Start: 03/02/21 10:10 Freq: Status: Active Protocol: Document 03/11/21 12:15 RIAN (Rec: 03/11/21 12:17 RIAN [email or web address]) Nutrition Notes Initial or Follow up Brief Note Current Diagnosis Acute Kidney Injury,COPD, Diabetes,Sepsis,Hypertension, Heart Failure,Respiratory Failure Other Pertinent Diagnosis pneu, AMS, COVID(+) Current Diet Glucerna 1.2 at 65 ml/hr; Flush of 100 ml q4h Subjective/Other Information Pt extubated and awaiting [employer] DEFENSE CONTROL OFFICER eval. Nutrition Intervention Follow-Up By: 03/13/21 Additional Comments F/u: diet advancement and intakes
[2021-03-13] MEDS: FUROSEMIDE 40 MG/4 ML INJ IV SCH (09:38)
[2021-03-13] MEDS: POTASSIUM CHLORIDE 10 MEQ 10 MEQ/100 ML BAG IV SCH ×3 (09:38→16:35)
[2021-03-13] MEDS: ASPIRIN 81 MG TAB CHEW PO SCH (10:37)
[2021-03-13] MEDS: CHOLECALCIFEROL (VIT D3) 1000 UNIT (25 mcg) TAB PO SCH (10:38)
[2021-03-13] MEDS: AMIODARONE 900 MG in DEXTROSE 5% IN WATER 482 ML IV SCH (12:26)
--- NOTE | 2021-03-13 12:37 | Progress Note ---
Assessment and Plan SVT * Patient had SVT into 180s yesterday afternoon. Resolved after being given Adenosine 6mg IV. Patient was then started on Amio gtt * Patient has since been Sinus rhythm on monitor. Discontinue Amio gtt and continue to monitor Hypertension * Patient currently on labetolol 100mg BID, Hydralizine 25 mg TID HFpEF * Echo 12/13/2020 - EF 55-60%, otherwise technically difficult study. * Echo 05/2016 - LV mildly dilated, EF 55-60%, grade II diastolic dysfxn, RV mildly enlarged, normal RV sys fxn, LA mildly dilated, RA mildly dilated, mild-mod AR, mild AR, mild aortic root dilatation. * Patient is on Lasix 40mg IV QD COVID-19 PNA Acute hypoxic resporitary failure * Patient positive for COVID-19 * Secondary to pna * Pulmonology and infectious disease are following DVT of RLE * Patient on Enoxaparin 130mg SQ BID . Plan to transition to Coumadin once patient is hemodynamically stable * He was diagnosed with a LLE DVT in March 2020 and appears to have been on Coumadin as an outpatient. Patient seen in conjunction with Dr. Lassiter who agrees with this plan of care. Will continue to follow. 30min of critical care time spent in care of coordination of this patient - Patient Problems (1) ALPHONSO (acute kidney injury) Current Visit: Yes Status: Acute (2) Acute and chronic respiratory failure ([id number]) Current Visit: Yes Status: Acute (3) Acute deep vein thrombosis (DVT) of right lower extremity Current Visit: Yes Status: Acute (4) Encephalopathy Current Visit: Yes Status: Acute (5) NSTEMI (non-ST elevated myocardial infarction) Current Visit: Yes Status: Acute (6) Transaminitis Current Visit: Yes Status: Acute (7) COPD (chronic obstructive pulmonary disease) Current Visit: Yes Status: Chronic (8) Chronic heart failure with preserved ejection fraction (HFpEF) Current Visit: Yes Status: Chronic (9) DM2 (diabetes mellitus, type 2) Current Visit: Yes Status: Chronic (10) H/O: HTN (hypertension) Current Visit: Yes Status: Chronic (11) History of pulmonary embolus (PE) Current Visit: Yes Status: Chronic (12) COVID-19 Current Visit: Yes Status: Acute Subjective Principal diagnosis: Ac hypoxemic resp failure; NSTEMI; ALPHONSO; Sepsis; PNA; CHF; DM II; AMS Interval history: Patient sitting in bed. No complaints of chest pain. Reports breathing better Sinus tachy 90s on monitor with some tachycardia Objective Last Vital Signs Temp 99.0 F 03/13/21 04:00 Pulse 109 H 03/13/21 12:01 Resp 18 03/13/21 12:01 BP 148/78 03/13/21 12:01 Pulse Ox 100 03/13/21 12:01 - Physical Examination General: No Apparent Distress, Other (intubated) HEENT: Positive: Normocephaly Neck: Positive: trachea midline Cardiac: Positive: Reg Rate and Rhythm Lungs: Positive: Normal Breath Sounds Neuro: Positive: Grossly Intact, Other (intubated) Abdomen: Positive: Soft Skin: Negative: Rash Incision: Cardiac Cath Site Musculoskeletal: No Fluid Collection Extremities: Present: upper extr. pulses, lower extr. pulses, +3 Edema, warm, Other (anasarca) - Labs and Meds Cardiac Enzymes 03/12/21 Range/Units 15:00 AST 181 H (5-40) units/L Comprehensive Metabolic Panel 03/12/21 Range/Units 15:00 Sodium 144 (137-145) mmol/L Potassium 3.2 L (3.6-5.0) mmol/L Chloride 103.2 (98-107) mmol/L Carbon Dioxide 29 (22-30) mmol/L BUN 39 H (9-20) mg/dL Creatinine 0.7 L (0.8-1.3) mg/dL Glucose 258 H (75-100) mg/dL Calcium 8.3 L (8.4-10.2) mg/dL AST 181 H (5-40) units/L ALT 129 H (7-56) units/L Alkaline Phosphatase 541 H (35-129) units/L Total Protein 5.0 L (6.3-8.2) g/dL Albumin 2.0 L (3.9-5) g/dL - Imaging and Cardiology EKG: report reviewed, image reviewed Echo: report reviewed (12/2020 - EF 55-60%) Cardiac cath: pending - Telemetry EKG Rhythm: Sinus Rhythm - EKG Sinus rhythms and dysrhythmias: sinus rhythm AV and intraventricular conduction: right bundle branch block Repolarization changes or abnormalities: nonspecific abnormality, ST segment, and/or T wave - Allied health notes Allied health notes reviewed: nursing
[2021-03-13] MEDS: dexAMETHasone 4 MG/ML VIAL IV SCH (13:08)
--- NOTE | 2021-03-13 15:13 | Progress Note ---
Assessment and Plan Acute hypoxemic respiratory failure NSTEMI Acute kidney injury Severe sepsis Bilateral pneumonia H/O congestive heart failure Diabetes type 2 Acute encephalopathy Elevated serum transaminases Anemia that is microcytic Leukocytosis Metabolic acidosis Lactic acidosis - agree with Psychiatry consult; he is refusing medications and some care - FiO2 dropped to 80% - continue prn metoprolol 5mg IV q6h for pulse > 130/min - cardiology evaluation ongoing - 2 qms Mag Sulfate IV X 1 - continue scheduled BIPAP qhs for alveolar recruitment / KAM (he refused last night) - continue daytime Vapotherm HFNC - s/p anti-infective's per ID recommendations (Vancomycin, Levaquin) - continue full dose Lovenox re: VTE - continue care as below otherwise; - continue to wean supplemental oxygen for target O2 sat's > 92% acutely - aspiration precautions - continue bronchodilators with pulmonary hygiene per RT - wean per pulmonary driven protocols otherwise - continue accuchecks with glycemic control per SSI (While critically ill target blood glucose of 140-180 mg/dL; avoid hypoglycemia) - avoid nephrotoxins, renally dose all medications - continue to avoid benzodiazepine's, reduce the possibility of delirium - prn analgesia per pain score - Maintenance of sleep-wake cycle, avoid delirium - G.I. & VTE prophylaxis - PT/OT/ROM exercises - continue mobility protocols for pressure ulcer prophylaxis - Monitor hemodynamics closely - continue other care per attending / other consultants - discharge planning ongoing concurrently COVID SPECIFIC INTERVENTIONS - continue contact and airborne isolation - Remdesivir as per ID/Pulmonary developed protocols (received) - started systemic steroids for severe COVID-19 infection empirically - follow repeat COVID tests results - started zinc and vitamin C supplementation [id number] test positive - get & monitor inflammatory markers per facility protocol - ferritin, Ddimer, CRP (if test +ve) - therapeutic anticoagulation per system Protocol based on d-dimer and clinical considerations (On full dose Lovenox for VTE) .... Re-evaluate in am & prn CONDITION: CRITICAL PROGNOSIS: GUARDED CODE STATUS: FULL CODE The high probability of a clinically significant, sudden or life-threatening deterioration of the [respiratory, cardiovascular & neurologic] system(s) req uired my full and direct attention, intervention and personal management. The aggregate critical care time was [32] minutes without overlap. Time includes spent on; [x] Data Review and interpretation [x] Patient assessment and monitoring of vital signs [x] Documentation [x] Medication orders and management Subjective Date of service: 03/13/21 Principal diagnosis: Ac hypoxemic resp failure; NSTEMI; ALPHONSO; Sepsis; PNA; CHF; DM II; AMS Interval history: Patient is seen today for: Acute hypoxemic respiratory failure; NSTEMI; ALPHONSO; Severe sepsis; Pneumonia; CHF; DM II; Acute encephalopathy Seen and examined at bedside; 24hour events reviewed; nursing and respiratory care staff consulted; no adverse overnight events reported to me; resting peacefully in bed; remains on Vapotherm but FiO2 up to 100%; patient is today expressing suicidal ideation's; he is delirious; he denies chest pain; No N/V/F/C Objective Vital Signs - 12hr 03/13/21 03/13/21 03/13/21 04:00 05:01 06:00 Temperature 99.0 F Pulse Rate 83 80 98 H Pulse Rate [ 85 From Monitor] Respiratory 13 15 21 Rate Blood Pressure 107/72 84/50 163/97 O2 Sat by Pulse 100 100 94 Oximetry 03/13/21 03/13/21 03/13/21 06:42 06:46 07:00 Temperature Pulse Rate 69 91 H Pulse Rate [ From Monitor] Respiratory 15 Rate Blood Pressure 154/102 135/87 O2 Sat by Pulse 91 90 Oximetry 03/13/21 03/13/21 03/13/21 08:00 08:09 09:00 Temperature Pulse Rate 100 H 98 H Pulse Rate [ 83 From Monitor] Respiratory 12 16 Rate Blood Pressure 129/83 135/83 O2 Sat by Pulse 90 88 94 Oximetry 03/13/21 03/13/21 03/13/21 10:00 11:00 11:36 Temperature Pulse Rate 107 H 93 H Pulse Rate [ From Monitor] Respiratory 21 17 Rate Blood Pressure 158/88 124/75 O2 Sat by Pulse 97 100 91 Oximetry 03/13/21 03/13/21 03/13/21 12:00 12:01 13:01 Temperature 99.1 F Pulse Rate 109 H 93 H Pulse Rate [ From Monitor] Respiratory 18 13 Rate Blood Pressure 148/78 129/79 O2 Sat by Pulse 100 98 Oximetry 03/13/21 14:01 Temperature Pulse Rate 93 H Pulse Rate [ From Monitor] Respiratory 21 Rate Blood Pressure 129/79 O2 Sat by Pulse 100 Oximetry Constitutional: no acute distress, other (middle aged obese male with mildly inc reased respiratory effort at rest) Eyes: non-icteric ENT: oropharynx moist, other (extubated) Neck: supple, no lymphadenopathy, no JVD, other (large circumference) Effort: mildly labored Ascultation: Bilateral: diminished breath sounds, rhonchi (posterior bases) Percussion: Bilateral: not dull Cardiovascular: regular rate and rhythm Gastrointestinal: normoactive bowel sounds, soft, non-tender, non-distended (protuberant) Integumentary: normal Extremities: no cyanosis, pulses normal, no ischemia or petechiae, edema (trace) Neurologic: non-focal exam (grossly), pupils equal and round, CN II-XII normal, motor strength normal and Psychiatric: other (delirious) CBC and BMP: 03/11/21 06:54 03/12/21 15:00 ABG, PT/INR, D-dimer: ABG ABG pH 7.487 (7.320-7.450) H 03/10/21 12:33 POC ABG pCO2 40.4 mmHg (32.0-48.0) 03/10/21 12:33 POC ABG pO2 62.1 mmHg (83-108) L 03/10/21 12:33 POC ABG HCO3 29.9 03/10/21 12:33 ABG O2 Saturation 90.2 (0-100) 03/10/21 12:33 PT/INR, D-dimer PT 15.6 Sec. (12.2-14.9) H 03/04/21 10:17 INR 1.18 (0.87-1.13) H 03/04/21 10:17 D-Dimer 238.43 ng/mlDDU (0-234) H 03/11/21 06:54 Abnormal lab findings: Abnormal Labs 03/01/21 03/01/21 03/01/21 19:15 19:21 19:21 WBC 12.7 H RBC 2.77 L Hgb 9.1 L Hct 27.7 L MCV 100 H MCH 33 H RDW 18.0 H Seg Neutrophils % Monocytes % (Manual) 17.0 H Seg Neutrophils # Monocytes # (Manual) 2.2 H PT INR D-Dimer Heparin Anti-Xa Level ABG pH POC ABG pCO2 POC ABG pO2 64.9 L ABG Hemoglobin 9.3 L ABG Oxyhemoglobin 93.0 L ABG Sodium 133.8 L ABG Potassium ABG Chloride 97.0 L ABG Glucose 191 H Carboxyhemoglobin Sodium Potassium Chloride Carbon Dioxide BUN Creatinine Glucose POC Glucose Lactic Acid Calcium Phosphorus Magnesium Ferritin Total Bilirubin Direct Bilirubin AST ALT Alkaline Phosphatase Ammonia Lactate Dehydrogenase Troponin T 0.493 H* C-Reactive Protein Total Protein Albumin Triglycerides 400 H Cholesterol 232 H HDL Cholesterol 22 L Lipase Arterial Blood Glucose 191 H Arterial Blood Ionized Calcium 4.4 L Urine WBC (Auto) Salicylates Acetaminophen Coronavirus (PCR) 03/01/21 03/01/21 03/01/21 19:21 19:21 19:21 WBC RBC Hgb Hct MCV MCH RDW Seg Neutrophils % Monocytes % (Manual) Seg Neutrophils # Monocytes # (Manual) PT 16.6 H INR 1.28 H D-Dimer Heparin Anti-Xa Level ABG pH POC ABG pCO2 POC ABG pO2 ABG Hemoglobin ABG Oxyhemoglobin ABG Sodium ABG Potassium ABG Chloride ABG Glucose Carboxyhemoglobin Sodium 132 L Potassium Chloride 92.2 L Carbon Dioxide BUN 43 H Creatinine 2.4 H Glucose 190 H POC Glucose Lactic Acid 2.90 H* Calcium Phosphorus Magnesium Ferritin Total Bilirubin 1.60 H Direct Bilirubin 1.2 H AST 275 H ALT 156 H Alkaline Phosphatase 282 H Ammonia Lactate Dehydrogenase Troponin T C-Reactive Protein Total Protein 5.8 L Albumin 2.6 L Triglycerides Cholesterol HDL Cholesterol Lipase 120 H Arterial Blood Glucose Arterial Blood Ionized Calcium Urine WBC (Auto) Salicylates Acetaminophen Coronavirus (PCR) 03/01/21 03/01/21 03/01/21 19:21 19:21 19:21 WBC RBC Hgb Hct MCV MCH RDW Seg Neutrophils % Monocytes % (Manual) Seg Neutrophils # Monocytes # (Manual) PT INR D-Dimer Heparin Anti-Xa Level ABG pH POC ABG pCO2 POC ABG pO2 ABG Hemoglobin ABG Oxyhemoglobin ABG Sodium ABG Potassium ABG Chloride ABG Glucose Carboxyhemoglobin Sodium Potassium Chloride Carbon Dioxide BUN Creatinine Glucose POC Glucose Lactic Acid Calcium Phosphorus Magnesium Ferritin Total Bilirubin Direct Bilirubin AST ALT Alkaline Phosphatase Ammonia 71.0 H Lactate Dehydrogenase Troponin T C-Reactive Protein Total Protein Albumin Triglycerides Cholesterol HDL Cholesterol Lipase Arterial Blood Glucose Arterial Blood Ionized Calcium Urine WBC (Auto) Salicylates < 0.3 L Acetaminophen 5.0 L Coronavirus (PCR) 03/01/21 03/01/2103/02/21 20:55 20:55 00:01 WBC RBC Hgb Hct MCV MCH RDW Seg Neutrophils % Monocytes % (Manual) Seg Neutrophils # Monocytes # (Manual) PT INR D-Dimer Heparin Anti-Xa Level ABG pH 7.234 L POC ABG pCO2 POC ABG pO2 240.5 H ABG Hemoglobin 9.3 L ABG Oxyhemoglobin 99.1 H ABG Sodium 135.3 L ABG Potassium ABG Chloride ABG Glucose 286 H Carboxyhemoglobin 0.3 L Sodium Potassium Chloride Carbon Dioxide BUN Creatinine Glucose POC Glucose Lactic Acid 4.30 H* Calcium Phosphorus Magnesium Ferritin Total Bilirubin Direct Bilirubin AST ALT Alkaline Phosphatase Ammonia Lactate Dehydrogenase Troponin T 0.484 H* C-Reactive Protein Total Protein Albumin Triglycerides Cholesterol HDL Cholesterol Lipase Arterial Blood Glucose 286 H Arterial Blood Ionized Calcium Urine WBC (Auto) Salicylates Acetaminophen Coronavirus (PCR) 03/02/21 03/02/21 03/02/21 03:42 05:23 06:35 WBC RBC Hgb Hct MCV MCH RDW Seg Neutrophils % Monocytes % (Manual) Seg Neutrophils # Monocytes # (Manual) PT INR D-Dimer Heparin Anti-Xa Level ABG pH 7.225 L POC ABG pCO2 POC ABG pO2 181.8 H ABG Hemoglobin 9.4 L ABG Oxyhemoglobin 98.6 H ABG Sodium 132.1 L ABG Potassium 5.0 H ABG Chloride ABG Glucose 454 H Carboxyhemoglobin 0.3 L Sodium Potassium Chloride Carbon Dioxide BUN Creatinine Glucose POC Glucose 410 H Lactic Acid 7.50 H* Calcium Phosphorus Magnesium Ferritin Total Bilirubin Direct Bilirubin AST ALT Alkaline Phosphatase Ammonia Lactate Dehydrogenase Troponin T C-Reactive Protein Total Protein Albumin Triglycerides Cholesterol HDL Cholesterol Lipase Arterial Blood Glucose 454 H Arterial Blood Ionized Calcium 4.2 L Urine WBC (Auto) Salicylates Acetaminophen Coronavirus (PCR) 03/02/21 03/02/21 03/02/21 10:48 10:48 10:48 WBC RBC Hgb Hct MCV MCH RDW Seg Neutrophils % Monocytes % (Manual) Seg Neutrophils # Monocytes # (Manual) PT INR D-Dimer Heparin Anti-Xa Level ABG pH POC ABG pCO2 POC ABG pO2 ABG Hemoglobin ABG Oxyhemoglobin ABG Sodium ABG Potassium ABG Chloride ABG Glucose Carboxyhemoglobin Sodium 132 L Potassium Chloride 93.3 L Carbon Dioxide 20 L BUN 46 H Creatinine 1.9 H Glucose 503 H* POC Glucose Lactic Acid 3.40 H* Calcium 7.9 L Phosphorus 5.80 H Magnesium Ferritin Total Bilirubin Direct Bilirubin AST ALT Alkaline Phosphatase Ammonia Lactate Dehydrogenase Troponin T C-Reactive Protein Total Protein Albumin Triglycerides Cholesterol HDL Cholesterol Lipase Arterial Blood Glucose Arterial Blood Ionized Calcium Urine WBC (Auto) Salicylates Acetaminophen Coronavirus (PCR) 03/02/21 03/02/21 03/02/21 11:23 11:38 15:33 WBC RBC Hgb Hct MCV MCH RDW Seg Neutrophils % Monocytes % (Manual) Seg Neutrophils # Monocytes # (Manual) PT INR D-Dimer Heparin Anti-Xa Level ABG pH 7.318 L POC ABG pCO2 POC ABG pO2 ABG Hemoglobin 9.2 L ABG Oxyhemoglobin ABG Sodium 133.2 L ABG Potassium ABG Chloride ABG Glucose 504 H Carboxyhemoglobin 0.3 L Sodium Potassium Chloride Carbon Dioxide BUN Creatinine Glucose POC Glucose 468 H 445 H Lactic Acid Calcium Phosphorus Magnesium Ferritin Total Bilirubin Direct Bilirubin AST ALT Alkaline Phosphatase Ammonia Lactate Dehydrogenase Troponin T C-Reactive Protein Total Protein Albumin Triglycerides Cholesterol HDL Cholesterol Lipase Arterial Blood Glucose 504 H Arterial Blood Ionized Calcium 4.2 L Urine WBC (Auto) Salicylates Acetaminophen Coronavirus (PCR) 03/02/21 03/02/21 03/02/21 16:28 16:28 16:28 WBC RBC Hgb 8.8 L Hct 26.0 L MCV MCH RDW Seg Neutrophils % Monocytes % (Manual) Seg Neutrophils # Monocytes # (Manual) PT 15.2 H INR 1.14 H D-Dimer Heparin Anti-Xa Level ABG pH POC ABG pCO2 POC ABG pO2 ABG Hemoglobin ABG Oxyhemoglobin ABG Sodium ABG Potassium ABG Chloride ABG Glucose Carboxyhemoglobin Sodium 135 L Potassium Chloride 93.8 L Carbon Dioxide BUN 48 H Creatinine 1.8 H Glucose 454 H POC Glucose Lactic Acid Calcium 7.6 L Phosphorus Magnesium Ferritin Total Bilirubin Direct Bilirubin AST ALT Alkaline Phosphatase Ammonia Lactate Dehydrogenase Troponin T C-Reactive Protein Total Protein Albumin Triglycerides Cholesterol HDL Cholesterol Lipase Arterial Blood Glucose Arterial Blood Ionized Calcium Urine WBC (Auto) Salicylates Acetaminophen Coronavirus (PCR) 03/02/21 03/02/21 03/02/21 17:39 18:52 20:09 WBC RBC Hgb Hct MCV MCH RDW Seg Neutrophils % Monocytes % (Manual) Seg Neutrophils # Monocytes # (Manual) PT INR D-Dimer Heparin Anti-Xa Level ABG pH POC ABG pCO2 POC ABG pO2 ABG Hemoglobin ABG Oxyhemoglobin ABG Sodium ABG Potassium ABG Chloride ABG Glucose Carboxyhemoglobin Sodium Potassium Chloride Carbon Dioxide BUN Creatinine Glucose POC Glucose 404 H 357 H 347 H Lactic Acid Calcium Phosphorus Magnesium Ferritin Total Bilirubin Direct Bilirubin AST ALT Alkaline Phosphatase Ammonia Lactate Dehydrogenase Troponin T C-Reactive Protein Total Protein Albumin Triglycerides Cholesterol HDL Cholesterol Lipase Arterial Blood Glucose Arterial Blood Ionized Calcium Urine WBC (Auto) Salicylates Acetaminophen Coronavirus (PCR) 03/02/21 03/02/21 03/02/21 21:03 22:00 22:55 WBC RBC Hgb Hct MCV MCH RDW Seg Neutrophils % Monocytes % (Manual) Seg Neutrophils # Monocytes # (Manual) PT INR D-Dimer Heparin Anti-Xa Level ABG pH POC ABG pCO2 POC ABG pO2 ABG Hemoglobin ABG Oxyhemoglobin ABG Sodium ABG Potassium ABG Chloride ABG Glucose Carboxyhemoglobin Sodium Potassium Chloride Carbon Dioxide BUN Creatinine Glucose POC Glucose 307 H 270 H 237 H Lactic Acid Calcium Phosphorus Magnesium Ferritin Total Bilirubin Direct Bilirubin AST ALT Alkaline Phosphatase Ammonia Lactate Dehydrogenase Troponin T C-Reactive Protein Total Protein Albumin Triglycerides Cholesterol HDL Cholesterol Lipase Arterial Blood Glucose Arterial Blood Ionized Calcium Urine WBC (Auto) Salicylates Acetaminophen Coronavirus (PCR) 03/03/21 03/03/21 03/03/21 00:02 00:57 02:01 WBC RBC Hgb Hct MCV MCH RDW Seg Neutrophils % Monocytes % (Manual) Seg Neutrophils # Monocytes # (Manual) PT INR D-Dimer Heparin Anti-Xa Level ABG pH POC ABG pCO2 POC ABG pO2 ABG Hemoglobin ABG Oxyhemoglobin ABG Sodium ABG Potassium ABG Chloride ABG Glucose Carboxyhemoglobin Sodium Potassium Chloride Carbon Dioxide BUN Creatinine Glucose POC Glucose 252 H 214 H 261 H Lactic Acid Calcium Phosphorus Magnesium Ferritin Total Bilirubin Direct Bilirubin AST ALT Alkaline Phosphatase Ammonia Lactate Dehydrogenase Troponin T C-Reactive Protein Total Protein Albumin Triglycerides Cholesterol HDL Cholesterol Lipase Arterial Blood Glucose Arterial Blood Ionized Calcium Urine WBC (Auto) Salicylates Acetaminophen Coronavirus (PCR) 03/03/21 03/03/21 03/03/21 03:07 03:10 03:50 WBC 13.7 H RBC 2.69 L Hgb 8.7 L Hct 26.9 L MCV 100 H MCH RDW 18.5 H Seg Neutrophils % 79.0 H Monocytes % (Manual) Seg Neutrophils # 10.8 H Monocytes # (Manual) PT INR D-Dimer Heparin Anti-Xa Level ABG pH POC ABG pCO2 50.9 H POC ABG pO2 81.9 L ABG Hemoglobin 8.7 L ABG Oxyhemoglobin ABG Sodium 134.2 L ABG Potassium ABG Chloride 96.0 L ABG Glucose 279 H Carboxyhemoglobin 0.4 L Sodium Potassium Chloride Carbon Dioxide BUN Creatinine Glucose POC Glucose 276 H Lactic Acid Calcium Phosphorus Magnesium Ferritin Total Bilirubin Direct Bilirubin AST ALT Alkaline Phosphatase Ammonia Lactate Dehydrogenase Troponin T C-Reactive Protein Total Protein Albumin Triglycerides Cholesterol HDL Cholesterol Lipase Arterial Blood Glucose 279 H Arterial Blood Ionized Calcium 3.9 L Urine WBC (Auto) Salicylates Acetaminophen Coronavirus (PCR) 03/03/21 03/03/21 03/03/21 03:50 04:06 04:32 WBC RBC Hgb Hct MCV MCH RDW Seg Neutrophils % Monocytes % (Manual) Seg Neutrophils # Monocytes # (Manual) PT INR D-Dimer Heparin Anti-Xa Level ABG pH POC ABG pCO2 POC ABG pO2 ABG Hemoglobin ABG Oxyhemoglobin ABG Sodium ABG Potassium ABG Chloride ABG Glucose Carboxyhemoglobin Sodium Potassium Chloride 94.2 L Carbon Dioxide BUN 45 H Creatinine 1.9 H Glucose 261 H POC Glucose 256 H Lactic Acid Calcium 7.3 L Phosphorus Magnesium Ferritin Total Bilirubin Direct Bilirubin 0.9 H AST 208 H ALT 148 H Alkaline Phosphatase 251 H Ammonia Lactate Dehydrogenase Troponin T C-Reactive Protein Total Protein 5.5 L Albumin 2.4 L Triglycerides Cholesterol HDL Cholesterol Lipase Arterial Blood Glucose Arterial Blood Ionized Calcium Urine WBC (Auto) Salicylates Acetaminophen Coronavirus (PCR) 03/03/21 03/03/21 03/03/21 05:23 06:06 07:07 WBC RBC Hgb Hct MCV MCH RDW Seg Neutrophils % Monocytes % (Manual) Seg Neutrophils # Monocytes # (Manual) PT INR D-Dimer Heparin Anti-Xa Level ABG pH POC ABG pCO2 POC ABG pO2 ABG Hemoglobin ABG Oxyhemoglobin ABG Sodium ABG Potassium ABG Chloride ABG Glucose Carboxyhemoglobin Sodium Potassium Chloride Carbon Dioxide BUN Creatinine Glucose POC Glucose 214 H 249 H 237 H Lactic Acid Calcium Phosphorus Magnesium Ferritin Total Bilirubin Direct Bilirubin AST ALT Alkaline Phosphatase Ammonia Lactate Dehydrogenase Troponin T C-Reactive Protein Total Protein Albumin Triglycerides Cholesterol HDL Cholesterol Lipase Arterial Blood Glucose Arterial Blood Ionized Calcium Urine WBC (Auto) Salicylates Acetaminophen Coronavirus (PCR) 03/03/21 03/03/21 03/03/21 07:58 08:58 09:52 WBC RBC Hgb Hct MCV MCH RDW Seg Neutrophils % Monocytes % (Manual) Seg Neutrophils # Monocytes # (Manual) PT INR D-Dimer Heparin Anti-Xa Level ABG pH POC ABG pCO2 POC ABG pO2 ABG Hemoglobin ABG Oxyhemoglobin ABG Sodium ABG Potassium ABG Chloride ABG Glucose Carboxyhemoglobin Sodium Potassium Chloride Carbon Dioxide BUN Creatinine Glucose POC Glucose 227 H 215 H 207 H Lactic Acid Calcium Phosphorus Magnesium Ferritin Total Bilirubin Direct Bilirubin AST ALT Alkaline Phosphatase Ammonia Lactate Dehydrogenase Troponin T C-Reactive Protein Total Protein Albumin Triglycerides Cholesterol HDL Cholesterol Lipase Arterial Blood Glucose Arterial Blood Ionized Calcium Urine WBC (Auto) Salicylates Acetaminophen Coronavirus (PCR) 03/03/21 03/03/21 03/03/21 10:55 11:44 12:53 WBC RBC Hgb Hct MCV MCH RDW Seg Neutrophils % Monocytes % (Manual) Seg Neutrophils # Monocytes # (Manual) PT INR D-Dimer Heparin Anti-Xa Level ABG pH POC ABG pCO2 POC ABG pO2 ABG Hemoglobin ABG Oxyhemoglobin ABG Sodium ABG Potassium ABG Chloride ABG Glucose Carboxyhemoglobin Sodium Potassium Chloride Carbon Dioxide BUN Creatinine Glucose POC Glucose 198 H 210 H 203 H Lactic Acid Calcium Phosphorus Magnesium Ferritin Total Bilirubin Direct Bilirubin AST ALT Alkaline Phosphatase Ammonia Lactate Dehydrogenase Troponin T C-Reactive Protein Total Protein Albumin Triglycerides Cholesterol HDL Cholesterol Lipase Arterial Blood Glucose Arterial Blood Ionized Calcium Urine WBC (Auto) Salicylates Acetaminophen Coronavirus (PCR) 03/03/21 03/03/21 03/03/21 13:53 14:58 15:23 WBC RBC Hgb Hct MCV MCH RDW Seg Neutrophils % Monocytes % (Manual) Seg Neutrophils # Monocytes # (Manual) PT INR D-Dimer Heparin Anti-Xa Level ABG pH POC ABG pCO2 POC ABG pO2 ABG Hemoglobin ABG Oxyhemoglobin ABG Sodium ABG Potassium ABG Chloride ABG Glucose Carboxyhemoglobin Sodium Potassium Chloride Carbon Dioxide BUN Creatinine Glucose POC Glucose 210 H 187 H Lactic Acid 3.10 H* Calcium Phosphorus Magnesium Ferritin Total Bilirubin Direct Bilirubin AST ALT Alkaline Phosphatase Ammonia Lactate Dehydrogenase Troponin T C-Reactive Protein Total Protein Albumin Triglycerides Cholesterol HDL Cholesterol Lipase Arterial Blood Glucose Arterial Blood Ionized Calcium Urine WBC (Auto) Salicylates Acetaminophen Coronavirus (PCR) 07/25/21 07/25/21 07/25/21 15:51 16:25 16:53 WBC RBC Hgb Hct MCV MCH RDW Seg Neutrophils % Monocytes % (Manual) Seg Neutrophils # Monocytes # (Manual) PT INR D-Dimer Heparin Anti-Xa Level ABG pH POC ABG pCO2 POC ABG pO2 ABG Hemoglobin ABG Oxyhemoglobin ABG Sodium ABG Potassium ABG Chloride ABG Glucose Carboxyhemoglobin Sodium Potassium Chloride 91.0 L Carbon Dioxide 34 H BUN 47 H Creatinine 1.7 H Glucose 190 H POC Glucose 182 H 179 H Lactic Acid Calcium 7.6 L Phosphorus Magnesium Ferritin Total Bilirubin Direct Bilirubin AST ALT Alkaline Phosphatase Ammonia Lactate Dehydrogenase Troponin T C-Reactive Protein Total Protein Albumin Triglycerides Cholesterol HDL Cholesterol Lipase Arterial Blood Glucose Arterial Blood Ionized Calcium Urine WBC (Auto) Salicylates Acetaminophen Coronavirus (PCR) 03/03/21 03/03/21 03/03/21 17:55 19:37 20:57 WBC RBC Hgb Hct MCV MCH RDW Seg Neutrophils % Monocytes % (Manual) Seg Neutrophils # Monocytes # (Manual) PT INR D-Dimer Heparin Anti-Xa Level ABG pH POC ABG pCO2 POC ABG pO2 ABG Hemoglobin ABG Oxyhemoglobin ABG Sodium ABG Potassium ABG Chloride ABG Glucose Carboxyhemoglobin Sodium Potassium Chloride Carbon Dioxide BUN Creatinine Glucose POC Glucose 185 H 174 H 175 H Lactic Acid Calcium Phosphorus Magnesium Ferritin Total Bilirubin Direct Bilirubin AST ALT Alkaline Phosphatase Ammonia Lactate Dehydrogenase Troponin T C-Reactive Protein Total Protein Albumin Triglycerides Cholesterol HDL Cholesterol Lipase Arterial Blood Glucose Arterial Blood Ionized Calcium Urine WBC (Auto) Salicylates Acetaminophen Coronavirus (PCR) 03/03/21 03/03/21 03/03/21 22:02 22:56 23:10 WBC RBC Hgb Hct MCV MCH RDW Seg Neutrophils % Monocytes % (Manual) Seg Neutrophils # Monocytes # (Manual) PT INR D-Dimer Heparin Anti-Xa Level 0.75 H ABG pH POC ABG pCO2 POC ABG pO2 ABG Hemoglobin ABG Oxyhemoglobin ABG Sodium ABG Potassium ABG Chloride ABG Glucose Carboxyhemoglobin Sodium Potassium Chloride Carbon Dioxide BUN Creatinine Glucose POC Glucose 170 H 160 H Lactic Acid Calcium Phosphorus Magnesium Ferritin Total Bilirubin Direct Bilirubin AST ALT Alkaline Phosphatase Ammonia Lactate Dehydrogenase Troponin T C-Reactive Protein Total Protein Albumin Triglycerides Cholesterol HDL Cholesterol Lipase Arterial Blood Glucose Arterial Blood Ionized Calcium Urine WBC (Auto) Salicylates Acetaminophen Coronavirus (PCR) 03/03/21 03/04/21 03/04/21 23:42 00:52 01:55 WBC RBC Hgb Hct MCV MCH RDW Seg Neutrophils % Monocytes % (Manual) Seg Neutrophils # Monocytes # (Manual) PT INR D-Dimer Heparin Anti-Xa Level ABG pH POC ABG pCO2 POC ABG pO2 ABG Hemoglobin ABG Oxyhemoglobin ABG Sodium ABG Potassium ABG Chloride ABG Glucose Carboxyhemoglobin Sodium Potassium Chloride Carbon Dioxide BUN Creatinine Glucose POC Glucose 161 H 167 H 119 H Lactic Acid Calcium Phosphorus Magnesium Ferritin Total Bilirubin Direct Bilirubin AST ALT Alkaline Phosphatase Ammonia Lactate Dehydrogenase Troponin T C-Reactive Protein Total Protein Albumin Triglycerides Cholesterol HDL Cholesterol Lipase Arterial Blood Glucose Arterial Blood Ionized Calcium Urine WBC (Auto) Salicylates Acetaminophen Coronavirus (PCR) 03/04/21 03/04/21 03/04/21 02:58 03:47 04:03 WBC RBC Hgb Hct MCV MCH RDW Seg Neutrophils % Monocytes % (Manual) Seg Neutrophils # Monocytes # (Manual) PT INR D-Dimer Heparin Anti-Xa Level ABG pH POC ABG pCO2 57.3 H POC ABG pO2 63.7 L ABG Hemoglobin 8.4 L ABG Oxyhemoglobin 88.6 L ABG Sodium 132.5 L ABG Potassium 3.2 L ABG Chloride 94.0 L ABG Glucose 129 H Carboxyhemoglobin Sodium Potassium Chloride Carbon Dioxide BUN Creatinine Glucose POC Glucose 111 H 122 H Lactic Acid Calcium Phosphorus Magnesium Ferritin Total Bilirubin Direct Bilirubin AST ALT Alkaline Phosphatase Ammonia Lactate Dehydrogenase Troponin T C-Reactive Protein Total Protein Albumin Triglycerides Cholesterol HDL Cholesterol Lipase Arterial Blood Glucose 129 H Arterial Blood Ionized Calcium 3.8 L Urine WBC (Auto) Salicylates Acetaminophen Coronavirus (PCR) 03/04/21 03/04/21 03/04/21 05:15 05:26 05:26 WBC RBC Hgb 7.9 L Hct 23.7 L MCV MCH RDW Seg Neutrophils % Monocytes % (Manual) Seg Neutrophils # Monocytes # (Manual) PT INR D-Dimer Heparin Anti-Xa Level ABG pH POC ABG pCO2 POC ABG pO2 ABG Hemoglobin ABG Oxyhemoglobin ABG Sodium ABG Potassium ABG Chloride ABG Glucose Carboxyhemoglobin Sodium Potassium Chloride Carbon Dioxide BUN Creatinine Glucose POC Glucose 127 H Lactic Acid Calcium Phosphorus Magnesium Ferritin Total Bilirubin Direct Bilirubin 0.6 H AST 123 H ALT 105 H Alkaline Phosphatase 232 H Ammonia Lactate Dehydrogenase Troponin T C-Reactive Protein Total Protein 4.8 L Albumin 2.2 L Triglycerides Cholesterol HDL Cholesterol Lipase Arterial Blood Glucose Arterial Blood Ionized Calcium Urine WBC (Auto) Salicylates Acetaminophen Coronavirus (PCR) 03/04/21 03/04/21 03/04/21 05:26 06:01 06:53 WBC RBC Hgb Hct MCV MCH RDW Seg Neutrophils % Monocytes % (Manual) Seg Neutrophils # Monocytes # (Manual) PT INR D-Dimer Heparin Anti-Xa Level 0.71 H ABG pH POC ABG pCO2 POC ABG pO2 ABG Hemoglobin ABG Oxyhemoglobin ABG Sodium ABG Potassium ABG Chloride ABG Glucose Carboxyhemoglobin Sodium Potassium Chloride Carbon Dioxide BUN Creatinine Glucose POC Glucose 120 H 117 H Lactic Acid Calcium Phosphorus Magnesium Ferritin Total Bilirubin Direct Bilirubin AST ALT Alkaline Phosphatase Ammonia Lactate Dehydrogenase Troponin T C-Reactive Protein Total Protein Albumin Triglycerides Cholesterol HDL Cholesterol Lipase Arterial Blood Glucose Arterial Blood Ionized Calcium Urine WBC (Auto) Salicylates Acetaminophen Coronavirus (PCR) 03/04/21 03/04/21 03/04/21 07:57 10:17 10:17 WBC RBC 2.51 L Hgb 8.3 L Hct 25.3 L MCV 101 H MCH 33 H RDW 18.5 H Seg Neutrophils % Monocytes % (Manual) Seg Neutrophils # Monocytes # (Manual) PT INR D-Dimer Heparin Anti-Xa Level ABG pH POC ABG pCO2 POC ABG pO2 ABG Hemoglobin ABG Oxyhemoglobin ABG Sodium ABG Potassium ABG Chloride ABG Glucose Carboxyhemoglobin Sodium 136 L Potassium Chloride 93.1 L Carbon Dioxide 33 H BUN 46 H Creatinine 1.4 H Glucose 151 H POC Glucose 129 H Lactic Acid Calcium 7.5 L Phosphorus Magnesium Ferritin Total Bilirubin Direct Bilirubin AST 126 H ALT 100 H Alkaline Phosphatase 226 H Ammonia Lactate Dehydrogenase Troponin T C-Reactive Protein Total Protein 5.0 L Albumin 2.2 L Triglycerides Cholesterol HDL Cholesterol Lipase Arterial Blood Glucose Arterial Blood Ionized Calcium Urine WBC (Auto) Salicylates Acetaminophen Coronavirus (PCR) 03/04/21 03/04/21 03/04/21 10:17 10:17 11:26 WBC RBC Hgb Hct MCV MCH RDW Seg Neutrophils % Monocytes % (Manual) Seg Neutrophils # Monocytes # (Manual) PT 15.6 H INR 1.18 H D-Dimer Heparin Anti-Xa Level ABG pH POC ABG pCO2 POC ABG pO2 ABG Hemoglobin ABG Oxyhemoglobin ABG Sodium ABG Potassium ABG Chloride ABG Glucose Carboxyhemoglobin Sodium Potassium Chloride Carbon Dioxide BUN Creatinine Glucose POC Glucose 167 H Lactic Acid Calcium Phosphorus Magnesium Ferritin Total Bilirubin Direct Bilirubin AST ALT Alkaline Phosphatase Ammonia Lactate Dehydrogenase Troponin T C-Reactive Protein Total Protein Albumin Triglycerides Cholesterol HDL Cholesterol Lipase 78 H Arterial Blood Glucose Arterial Blood Ionized Calcium Urine WBC (Auto) Salicylates Acetaminophen Coronavirus (PCR) 03/04/21 03/04/21 03/04/21 13:04 16:26 17:58 WBC RBC Hgb 7.7 L Hct 23.2 L MCV MCH RDW Seg Neutrophils % Monocytes % (Manual) Seg Neutrophils # Monocytes # (Manual) PT INR D-Dimer Heparin Anti-Xa Level < 0.10 L ABG pH POC ABG pCO2 POC ABG pO2 ABG Hemoglobin ABG Oxyhemoglobin ABG Sodium ABG Potassium ABG Chloride ABG Glucose Carboxyhemoglobin Sodium Potassium Chloride Carbon Dioxide BUN Creatinine Glucose POC Glucose 167 H Lactic Acid Calcium Phosphorus Magnesium Ferritin Total Bilirubin Direct Bilirubin AST ALT Alkaline Phosphatase Ammonia Lactate Dehydrogenase Troponin T C-Reactive Protein Total Protein Albumin Triglycerides Cholesterol HDL Cholesterol Lipase Arterial Blood Glucose Arterial Blood Ionized Calcium Urine WBC (Auto) Salicylates Acetaminophen Coronavirus (PCR) 03/04/21 03/05/21 03/05/21 23:47 04:00 05:06 WBC RBC Hgb Hct MCV MCH RDW Seg Neutrophils % Monocytes % (Manual) Seg Neutrophils # Monocytes # (Manual) PT INR D-Dimer Heparin Anti-Xa Level ABG pH POC ABG pCO2 POC ABG pO2 129.1 H ABG Hemoglobin 8.3 L ABG Oxyhemoglobin ABG Sodium 131.4 L ABG Potassium ABG Chloride 95.0 L ABG Glucose 153 H Carboxyhemoglobin Sodium Potassium Chloride Carbon Dioxide BUN Creatinine Glucose POC Glucose 153 H 139 H Lactic Acid Calcium Phosphorus Magnesium Ferritin Total Bilirubin Direct Bilirubin AST ALT Alkaline Phosphatase Ammonia Lactate Dehydrogenase Troponin T C-Reactive Protein Total Protein Albumin Triglycerides Cholesterol HDL Cholesterol Lipase Arterial Blood Glucose 153 H Arterial Blood Ionized Calcium Urine WBC (Auto) Salicylates Acetaminophen Coronavirus (PCR) 03/05/21 03/05/21 03/05/21 11:43 13:35 13:35 WBC RBC 2.38 L Hgb 7.8 L Hct 23.8 L MCV 100 H MCH 33 H RDW 18.2 H Seg Neutrophils % Monocytes % (Manual) Seg Neutrophils # Monocytes # (Manual) PT INR D-Dimer Heparin Anti-Xa Level ABG pH POC ABG pCO2 POC ABG pO2 ABG Hemoglobin ABG Oxyhemoglobin ABG Sodium ABG Potassium ABG Chloride ABG Glucose Carboxyhemoglobin Sodium Potassium Chloride 94.4 L Carbon Dioxide BUN 49 H Creatinine 1.6 H Glucose 165 H POC Glucose 174 H Lactic Acid Calcium 7.5 L Phosphorus Magnesium Ferritin Total Bilirubin Direct Bilirubin AST ALT Alkaline Phosphatase Ammonia Lactate Dehydrogenase Troponin T C-Reactive Protein Total Protein Albumin Triglycerides Cholesterol HDL Cholesterol Lipase Arterial Blood Glucose Arterial Blood Ionized Calcium Urine WBC (Auto) Salicylates Acetaminophen Coronavirus (PCR) 03/05/21 03/05/21 03/05/21 17:57 21:27 Unknown WBC RBC Hgb Hct MCV MCH RDW Seg Neutrophils % Monocytes % (Manual) Seg Neutrophils # Monocytes # (Manual) PT INR D-Dimer Heparin Anti-Xa Level ABG pH POC ABG pCO2 POC ABG pO2 ABG Hemoglobin ABG Oxyhemoglobin ABG Sodium ABG Potassium ABG Chloride ABG Glucose Carboxyhemoglobin Sodium Potassium Chloride Carbon Dioxide BUN Creatinine Glucose POC Glucose 129 H 129 H Lactic Acid Calcium Phosphorus Magnesium Ferritin Total Bilirubin Direct Bilirubin AST ALT Alkaline Phosphatase Ammonia Lactate Dehydrogenase Troponin T C-Reactive Protein Total Protein Albumin Triglycerides Cholesterol HDL Cholesterol Lipase Arterial Blood Glucose Arterial Blood Ionized Calcium Urine WBC (Auto) Salicylates Acetaminophen Coronavirus (PCR) Positive A 03/06/21 03/06/21 03/06/21 03:30 04:30 05:20 WBC 15.2 H RBC 2.48 L Hgb 8.2 L Hct 24.9 L MCV 100 H MCH 33 H RDW 18.6 H Seg Neutrophils % 72.6 H Monocytes % (Manual) Seg Neutrophils # 11.1 H Monocytes # (Manual) PT INR D-Dimer Heparin Anti-Xa Level ABG pH POC ABG pCO2 49.7 H POC ABG pO2 65.1 L ABG Hemoglobin 9.1 L ABG Oxyhemoglobin 90.2 L ABG Sodium 131.2 L ABG Potassium ABG Chloride 96.0 L ABG Glucose 133 H Carboxyhemoglobin Sodium Potassium Chloride Carbon Dioxide BUN Creatinine Glucose POC Glucose Lactic Acid Calcium Phosphorus Magnesium Ferritin Total Bilirubin Direct Bilirubin AST ALT Alkaline Phosphatase Ammonia Lactate Dehydrogenase Troponin T C-Reactive Protein 27.90 H Total Protein Albumin Triglycerides Cholesterol HDL Cholesterol Lipase Arterial Blood Glucose 133 H Arterial Blood Ionized Calcium 4.2 L Urine WBC (Auto) Salicylates Acetaminophen Coronavirus (PCR) 03/06/21 03/06/21 03/06/21 05:20 05:30 11:52 WBC RBC Hgb Hct MCV MCH RDW Seg Neutrophils % Monocytes % (Manual) Seg Neutrophils # Monocytes # (Manual) PT INR D-Dimer Heparin Anti-Xa Level ABG pH POC ABG pCO2 POC ABG pO2 ABG Hemoglobin ABG Oxyhemoglobin ABG Sodium ABG Potassium ABG Chloride ABG Glucose Carboxyhemoglobin Sodium 135 L Potassium Chloride 94.5 L Carbon Dioxide BUN 49 H Creatinine Glucose 121 H POC Glucose 123 H 123 H Lactic Acid Calcium 7.3 L Phosphorus Magnesium 1.50 L Ferritin Total Bilirubin Direct Bilirubin AST 120 H ALT 74 H Alkaline Phosphatase 306 H Ammonia Lactate Dehydrogenase Troponin T C-Reactive Protein Total Protein 4.5 L Albumin 2.0 L Triglycerides Cholesterol HDL Cholesterol Lipase Arterial Blood Glucose Arterial Blood Ionized Calcium Urine WBC (Auto) Salicylates Acetaminophen Coronavirus (PCR) 03/06/21 03/06/21 03/06/21 14:34 17:45 23:36 WBC RBC Hgb Hct MCV MCH RDW Seg Neutrophils % Monocytes % (Manual) Seg Neutrophils # Monocytes # (Manual) PT INR D-Dimer Heparin Anti-Xa Level ABG pH POC ABG pCO2 POC ABG pO2 ABG Hemoglobin ABG Oxyhemoglobin ABG Sodium ABG Potassium ABG Chloride ABG Glucose Carboxyhemoglobin Sodium Potassium Chloride Carbon Dioxide BUN Creatinine Glucose POC Glucose 140 H 209 H Lactic Acid Calcium Phosphorus Magnesium Ferritin Total Bilirubin Direct Bilirubin AST ALT Alkaline Phosphatase Ammonia Lactate Dehydrogenase Troponin T C-Reactive Protein Total Protein Albumin Triglycerides Cholesterol HDL Cholesterol Lipase Arterial Blood Glucose Arterial Blood Ionized Calcium Urine WBC (Auto) 103.0 H Salicylates Acetaminophen Coronavirus (PCR) 03/07/21 03/07/21 03/07/21 03:00 05:32 08:16 WBC RBC Hgb Hct MCV MCH RDW Seg Neutrophils % Monocytes % (Manual) Seg Neutrophils # Monocytes # (Manual) PT INR D-Dimer Heparin Anti-Xa Level ABG pH POC ABG pCO2 POC ABG pO2 ABG Hemoglobin 8.9 L ABG Oxyhemoglobin ABG Sodium 131.4 L ABG Potassium ABG Chloride ABG Glucose 224 H Carboxyhemoglobin Sodium 136 L Potassium Chloride 95.3 L Carbon Dioxide BUN 45 H Creatinine Glucose 210 H POC Glucose 213 H Lactic Acid Calcium 8.0 L Phosphorus Magnesium Ferritin Total Bilirubin 1.30 H Direct Bilirubin AST 144 H ALT 66 H Alkaline Phosphatase 335 H Ammonia Lactate Dehydrogenase Troponin T C-Reactive Protein Total Protein 4.9 L Albumin 2.1 L Triglycerides Cholesterol HDL Cholesterol Lipase Arterial Blood Glucose 224 H Arterial Blood Ionized Calcium 4.3 L Urine WBC (Auto) Salicylates Acetaminophen Coronavirus (PCR) 03/07/21 03/07/21 03/07/21 08:16 08:16 08:16 WBC RBC 2.47 L Hgb 8.2 L Hct 24.6 L MCV 100 H MCH 33 H RDW 18.1 H Seg Neutrophils % Monocytes % (Manual) Seg Neutrophils # Monocytes # (Manual) PT INR D-Dimer 403.72 H Heparin Anti-Xa Level ABG pH POC ABG pCO2 POC ABG pO2 ABG Hemoglobin ABG Oxyhemoglobin ABG Sodium ABG Potassium ABG Chloride ABG Glucose Carboxyhemoglobin Sodium Potassium Chloride Carbon Dioxide BUN Creatinine Glucose POC Glucose Lactic Acid Calcium Phosphorus Magnesium Ferritin Total Bilirubin Direct Bilirubin AST ALT Alkaline Phosphatase Ammonia Lactate Dehydrogenase 453 H Troponin T C-Reactive Protein 32.50 H Total Protein Albumin Triglycerides Cholesterol HDL Cholesterol Lipase Arterial Blood Glucose Arterial Blood Ionized Calcium Urine WBC (Auto) Salicylates Acetaminophen Coronavirus (PCR) 03/07/21 03/07/21 03/07/21 08:16 11:24 17:22 WBC RBC Hgb Hct MCV MCH RDW Seg Neutrophils % Monocytes % (Manual) Seg Neutrophils # Monocytes # (Manual) PT INR D-Dimer Heparin Anti-Xa Level ABG pH POC ABG pCO2 POC ABG pO2 ABG Hemoglobin ABG Oxyhemoglobin ABG Sodium ABG Potassium ABG Chloride ABG Glucose Carboxyhemoglobin Sodium Potassium Chloride Carbon Dioxide BUN Creatinine Glucose POC Glucose 205 H 211 H Lactic Acid Calcium Phosphorus Magnesium Ferritin > 2000.0 H Total Bilirubin Direct Bilirubin AST ALT Alkaline Phosphatase Ammonia Lactate Dehydrogenase Troponin T C-Reactive Protein Total Protein Albumin Triglycerides Cholesterol HDL Cholesterol Lipase Arterial Blood Glucose Arterial Blood Ionized Calcium Urine WBC (Auto) Salicylates Acetaminophen Coronavirus (PCR) 03/07/21 03/08/21 03/08/21 Unknown 00:05 04:00 WBC RBC Hgb Hct MCV MCH RDW Seg Neutrophils % Monocytes % (Manual) Seg Neutrophils # Monocytes # (Manual) PT INR D-Dimer Heparin Anti-Xa Level 0.94 H ABG pH 7.452 H POC ABG pCO2 POC ABG pO2 75.5 L ABG Hemoglobin 10.0 L ABG Oxyhemoglobin 93.5 L ABG Sodium 134.7 L ABG Potassium ABG Chloride ABG Glucose 268 H Carboxyhemoglobin 0.3 L Sodium Potassium Chloride Carbon Dioxide BUN Creatinine Glucose POC Glucose 253 H Lactic Acid Calcium Phosphorus Magnesium Ferritin Total Bilirubin Direct Bilirubin AST ALT Alkaline Phosphatase Ammonia Lactate Dehydrogenase Troponin T C-Reactive Protein Total Protein Albumin Triglycerides Cholesterol HDL Cholesterol Lipase Arterial Blood Glucose 268 H Arterial Blood Ionized Calcium 4.5 L Urine WBC (Auto) Salicylates Acetaminophen Coronavirus (PCR) 03/08/21 03/08/21 03/08/21 05:27 06:10 06:10 WBC RBC 2.62 L Hgb 8.4 L Hct 26.0 L MCV 100 H MCH RDW 18.0 H Seg Neutrophils % Monocytes % (Manual) Seg Neutrophils # Monocytes # (Manual) PT INR D-Dimer Heparin Anti-Xa Level ABG pH POC ABG pCO2 POC ABG pO2 ABG Hemoglobin ABG Oxyhemoglobin ABG Sodium ABG Potassium ABG Chloride ABG Glucose Carboxyhemoglobin Sodium Potassium Chloride Carbon Dioxide BUN 49 H Creatinine Glucose 280 H POC Glucose 273 H Lactic Acid Calcium Phosphorus Magnesium Ferritin Total Bilirubin Direct Bilirubin AST 130 H ALT 68 H Alkaline Phosphatase 440 H Ammonia Lactate Dehydrogenase Troponin T C-Reactive Protein Total Protein 5.3 L Albumin 1.9 L Triglycerides Cholesterol HDL Cholesterol Lipase Arterial Blood Glucose Arterial Blood Ionized Calcium Urine WBC (Auto) Salicylates Acetaminophen Coronavirus (PCR) 03/08/21 03/08/21 03/08/21 11:27 17:56 23:20 WBC RBC Hgb Hct MCV MCH RDW Seg Neutrophils % Monocytes % (Manual) Seg Neutrophils # Monocytes # (Manual) PT INR D-Dimer Heparin Anti-Xa Level ABG pH POC ABG pCO2 POC ABG pO2 ABG Hemoglobin ABG Oxyhemoglobin ABG Sodium ABG Potassium ABG Chloride ABG Glucose Carboxyhemoglobin Sodium Potassium Chloride Carbon Dioxide BUN Creatinine Glucose POC Glucose 258 H 279 H 289 H Lactic Acid Calcium Phosphorus Magnesium Ferritin Total Bilirubin Direct Bilirubin AST ALT Alkaline Phosphatase Ammonia Lactate Dehydrogenase Troponin T C-Reactive Protein Total Protein Albumin Triglycerides Cholesterol HDL Cholesterol Lipase Arterial Blood Glucose Arterial Blood Ionized Calcium Urine WBC (Auto) Salicylates Acetaminophen Coronavirus (PCR) 03/09/21 03/09/21 03/09/21 04:00 05:12 08:00 WBC RBC Hgb Hct MCV MCH RDW Seg Neutrophils % Monocytes % (Manual) Seg Neutrophils # Monocytes # (Manual) PT INR D-Dimer 249.59 H Heparin Anti-Xa Level ABG pH 7.456 H POC ABG pCO2 POC ABG pO2 ABG Hemoglobin 8.9 L ABG Oxyhemoglobin ABG Sodium 135.6 L ABG Potassium ABG Chloride ABG Glucose 298 H Carboxyhemoglobin 0.3 L Sodium Potassium Chloride Carbon Dioxide BUN Creatinine Glucose POC Glucose 267 H Lactic Acid Calcium Phosphorus Magnesium Ferritin Total Bilirubin Direct Bilirubin AST ALT Alkaline Phosphatase Ammonia Lactate Dehydrogenase Troponin T C-Reactive Protein Total Protein Albumin Triglycerides Cholesterol HDL Cholesterol Lipase Arterial Blood Glucose 298 H Arterial Blood Ionized Calcium 4.5 L Urine WBC (Auto) Salicylates Acetaminophen Coronavirus (PCR) 03/09/21 03/09/21 03/09/21 08:00 08:00 08:00 WBC RBC Hgb Hct MCV MCH RDW Seg Neutrophils % Monocytes % (Manual) Seg Neutrophils # Monocytes # (Manual) PT INR D-Dimer Heparin Anti-Xa Level ABG pH POC ABG pCO2 POC ABG pO2 ABG Hemoglobin ABG Oxyhemoglobin ABG Sodium ABG Potassium ABG Chloride ABG Glucose Carboxyhemoglobin Sodium Potassium Chloride Carbon Dioxide BUN 44 H Creatinine Glucose 289 H POC Glucose Lactic Acid Calcium Phosphorus Magnesium Ferritin 2743.0 H Total Bilirubin Direct Bilirubin AST 134 H ALT 62 H Alkaline Phosphatase 527 H Ammonia Lactate Dehydrogenase 459 H Troponin T C-Reactive Protein 10.60 H Total Protein 5.0 L Albumin 2.2 L Triglycerides Cholesterol HDL Cholesterol Lipase Arterial Blood Glucose Arterial Blood Ionized Calcium Urine WBC (Auto) Salicylates Acetaminophen Coronavirus (PCR) 03/09/21 03/09/21 03/09/21 08:00 11:52 18:05 WBC RBC 2.60 L Hgb 8.5 L Hct 25.5 L MCV 98 H MCH 33 H RDW 18.1 H Seg Neutrophils % Monocytes % (Manual) Seg Neutrophils # Monocytes # (Manual) PT INR D-Dimer Heparin Anti-Xa Level ABG pH POC ABG pCO2 POC ABG pO2 ABG Hemoglobin ABG Oxyhemoglobin ABG Sodium ABG Potassium ABG Chloride ABG Glucose Carboxyhemoglobin Sodium Potassium Chloride Carbon Dioxide BUN Creatinine Glucose POC Glucose 306 H 293 H Lactic Acid Calcium Phosphorus Magnesium Ferritin Total Bilirubin Direct Bilirubin AST ALT Alkaline Phosphatase Ammonia Lactate Dehydrogenase Troponin T C-Reactive Protein Total Protein Albumin Triglycerides Cholesterol HDL Cholesterol Lipase Arterial Blood Glucose Arterial Blood Ionized Calcium Urine WBC (Auto) Salicylates Acetaminophen Coronavirus (PCR) 03/09/21 03/10/21 03/10/21 23:21 04:38 05:25 WBC RBC Hgb 8.6 L Hct 26.0 L MCV MCH RDW Seg Neutrophils % Monocytes % (Manual) Seg Neutrophils # Monocytes # (Manual) PT INR D-Dimer Heparin Anti-Xa Level ABG pH POC ABG pCO2 POC ABG pO2 ABG Hemoglobin ABG Oxyhemoglobin ABG Sodium ABG Potassium ABG Chloride ABG Glucose Carboxyhemoglobin Sodium Potassium Chloride Carbon Dioxide BUN Creatinine Glucose POC Glucose 306 H 310 H Lactic Acid Calcium Phosphorus Magnesium Ferritin Total Bilirubin Direct Bilirubin AST ALT Alkaline Phosphatase Ammonia Lactate Dehydrogenase Troponin T C-Reactive Protein Total Protein Albumin Triglycerides Cholesterol HDL Cholesterol Lipase Arterial Blood Glucose Arterial Blood Ionized Calcium Urine WBC (Auto) Salicylates Acetaminophen Coronavirus (PCR) 03/10/21 03/10/21 03/10/21 05:25 12:33 12:52 WBC RBC Hgb Hct MCV MCH RDW Seg Neutrophils % Monocytes % (Manual) Seg Neutrophils # Monocytes # (Manual) PT INR D-Dimer Heparin Anti-Xa Level ABG pH 7.487 H POC ABG pCO2 POC ABG pO2 62.1 L ABG Hemoglobin 9.4 L ABG Oxyhemoglobin 89.7 L ABG Sodium ABG Potassium ABG Chloride ABG Glucose 350 H Carboxyhemoglobin 0.2 L Sodium Potassium Chloride Carbon Dioxide 32 H BUN 45 H Creatinine Glucose 341 H POC Glucose 340 H Lactic Acid Calcium Phosphorus Magnesium Ferritin Total Bilirubin Direct Bilirubin AST ALT Alkaline Phosphatase Ammonia Lactate Dehydrogenase Troponin T C-Reactive Protein Total Protein Albumin Triglycerides Cholesterol HDL Cholesterol Lipase Arterial Blood Glucose 350 H Arterial Blood Ionized Calcium Urine WBC (Auto) Salicylates Acetaminophen Coronavirus (PCR) 03/10/21 03/10/21 03/11/21 17:05 22:57 04:58 WBC RBC Hgb Hct MCV MCH RDW Seg Neutrophils % Monocytes % (Manual) Seg Neutrophils # Monocytes # (Manual) PT INR D-Dimer Heparin Anti-Xa Level ABG pH POC ABG pCO2 POC ABG pO2 ABG Hemoglobin ABG Oxyhemoglobin ABG Sodium ABG Potassium ABG Chloride ABG Glucose Carboxyhemoglobin Sodium Potassium Chloride Carbon Dioxide BUN Creatinine Glucose POC Glucose 298 H 241 H 261 H Lactic Acid Calcium Phosphorus Magnesium Ferritin Total Bilirubin Direct Bilirubin AST ALT Alkaline Phosphatase Ammonia Lactate Dehydrogenase Troponin T C-Reactive Protein Total Protein Albumin Triglycerides Cholesterol HDL Cholesterol Lipase Arterial Blood Glucose Arterial Blood Ionized Calcium Urine WBC (Auto) Salicylates Acetaminophen Coronavirus (PCR) 03/11/21 03/11/21 03/11/21 06:54 06:54 06:54 WBC RBC Hgb Hct MCV MCH RDW Seg Neutrophils % Monocytes % (Manual) Seg Neutrophils # Monocytes # (Manual) PT INR D-Dimer 238.43 H Heparin Anti-Xa Level ABG pH POC ABG pCO2 POC ABG pO2 ABG Hemoglobin ABG Oxyhemoglobin ABG Sodium ABG Potassium ABG Chloride ABG Glucose Carboxyhemoglobin Sodium 146 H Potassium Chloride Carbon Dioxide 31 H BUN 41 H Creatinine Glucose 255 H POC Glucose Lactic Acid Calcium Phosphorus Magnesium Ferritin 3346.0 H Total Bilirubin Direct Bilirubin AST ALT Alkaline Phosphatase Ammonia Lactate Dehydrogenase 557 H Troponin T C-Reactive Protein 4.70 H Total Protein Albumin Triglycerides Cholesterol HDL Cholesterol Lipase Arterial Blood Glucose Arterial Blood Ionized Calcium Urine WBC (Auto) Salicylates Acetaminophen Coronavirus (PCR) 03/11/21 03/11/21 03/11/21 06:54 11:25 17:41 WBC RBC 2.76 L Hgb 8.9 L Hct 27.0 L MCV 98 H MCH RDW 18.3 H Seg Neutrophils % Monocytes % (Manual) Seg Neutrophils # Monocytes # (Manual) PT INR D-Dimer Heparin Anti-Xa Level ABG pH POC ABG pCO2 POC ABG pO2 ABG Hemoglobin ABG Oxyhemoglobin ABG Sodium ABG Potassium ABG Chloride ABG Glucose Carboxyhemoglobin Sodium Potassium Chloride Carbon Dioxide BUN Creatinine Glucose POC Glucose 255 H 292 H Lactic Acid Calcium Phosphorus Magnesium Ferritin Total Bilirubin Direct Bilirubin AST ALT Alkaline Phosphatase Ammonia Lactate Dehydrogenase Troponin T C-Reactive Protein Total Protein Albumin Triglycerides Cholesterol HDL Cholesterol Lipase Arterial Blood Glucose Arterial Blood Ionized Calcium Urine WBC (Auto) Salicylates Acetaminophen Coronavirus (PCR) 03/11/21 03/12/21 03/12/21 23:26 04:44 05:16 WBC RBC Hgb Hct MCV MCH RDW Seg Neutrophils % Monocytes % (Manual) Seg Neutrophils # Monocytes # (Manual) PT INR D-Dimer Heparin Anti-Xa Level ABG pH POC ABG pCO2 POC ABG pO2 ABG Hemoglobin ABG Oxyhemoglobin ABG Sodium ABG Potassium ABG Chloride ABG Glucose Carboxyhemoglobin Sodium Potassium Chloride Carbon Dioxide BUN Creatinine Glucose POC Glucose 289 H 255 H Lactic Acid Calcium Phosphorus Magnesium Ferritin Total Bilirubin Direct Bilirubin AST ALT Alkaline Phosphatase Ammonia Lactate Dehydrogenase Troponin T 0.149 H* C-Reactive Protein Total Protein Albumin Triglycerides Cholesterol HDL Cholesterol Lipase Arterial Blood Glucose Arterial Blood Ionized Calcium Urine WBC (Auto) Salicylates Acetaminophen Coronavirus (PCR) 03/12/21 03/12/21 03/12/21 12:02 15:00 17:28 WBC RBC Hgb Hct MCV MCH RDW Seg Neutrophils % Monocytes % (Manual) Seg Neutrophils # Monocytes # (Manual) PT INR D-Dimer Heparin Anti-Xa Level ABG pH POC ABG pCO2 POC ABG pO2 ABG Hemoglobin ABG Oxyhemoglobin ABG Sodium ABG Potassium ABG Chloride ABG Glucose Carboxyhemoglobin Sodium Potassium 3.2 L Chloride Carbon Dioxide BUN 39 H Creatinine 0.7 L Glucose 258 H POC Glucose 237 H 257 H Lactic Acid Calcium 8.3 L Phosphorus Magnesium Ferritin Total Bilirubin 2.20 H Direct Bilirubin AST 181 H ALT 129 H Alkaline Phosphatase 541 H Ammonia Lactate Dehydrogenase Troponin T C-Reactive Protein Total Protein 5.0 L Albumin 2.0 L Triglycerides Cholesterol HDL Cholesterol Lipase Arterial Blood Glucose Arterial Blood Ionized Calcium Urine WBC (Auto) Salicylates Acetaminophen Coronavirus (PCR) 03/12/21 03/12/21 03/13/21 21:51 23:15 05:44 WBC RBC Hgb Hct MCV MCH RDW Seg Neutrophils % Monocytes % (Manual) Seg Neutrophils # Monocytes # (Manual) PT INR D-Dimer Heparin Anti-Xa Level ABG pH POC ABG pCO2 POC ABG pO2 ABG Hemoglobin ABG Oxyhemoglobin ABG Sodium ABG Potassium ABG Chloride ABG Glucose Carboxyhemoglobin Sodium Potassium Chloride Carbon Dioxide BUN Creatinine Glucose POC Glucose 253 H 287 H 247 H Lactic Acid Calcium Phosphorus Magnesium Ferritin Total Bilirubin Direct Bilirubin AST ALT Alkaline Phosphatase Ammonia Lactate Dehydrogenase Troponin T C-Reactive Protein Total Protein Albumin Triglycerides Cholesterol HDL Cholesterol Lipase Arterial Blood Glucose Arterial Blood Ionized Calcium Urine WBC (Auto) Salicylates Acetaminophen Coronavirus (PCR) Chest x-ray: image reviewed (left pleural effusion small but progressive) Allied health notes reviewed: nursing
--- NOTE | 2021-03-13 15:36 | Progress Note ---
Assessment and Plan Cultures: SARS CoV2 PCR: Positive MRSA nasal PCR: Positive 03/01/2021 blood culture: No growth 03/01/2021 urine culture: No growth 03/02/2021 tracheal aspirate: Merlyn albicans 03/06/2021 blood culture: no growth 03/06/2021 urine culture: No growth A/P: 51-year-old male with COPD, chronic respiratory failure, CHF, diabetes, DVT/PE, morbid obesity on anticoagulation was admitted to the hospital on 03/01/2021 with altered mental status and shortness of breath: #Bilateral pneumonia: secondary to COVID-19. Completed empiric antibiotics. #Acute hypoxic respiratory failure: Now extubated, on high flow nasal cannula #Morbid obesity #Acute on chronic CHF #Transaminitis: Likely from COVID-19. Elevated LFTs with elevated alkaline phosphatase: RUQ ultrasound did not reveal any evidence of cholelithiasis, cholecystitis or choledocholithiasis. #Acute RLE DVT: On anticoagulation Recs: -IV/PO Dexamethasone 10 mg daily x 10 days, higher dose due to morbid obesity. Ending 03/15/2021 -Completed Remdesivir -Completed empiric antibiotics -on anticoagulation Kamar Schrader MD [facility] ([facility] O: [phone] F: [phone] Subjective Date of service: 03/13/21 Principal diagnosis: Ac hypoxemic resp failure; NSTEMI; ALPHONSO; Sepsis; PNA; CHF; DM II; AMS Interval history: Afebrile, no acute change. Cultures remain negative. Nasal cannula. Objective - Exam Narrative Exam: Physical exam deferred to reduce risk of transmission of COVID-19. Please refer to primary team's note. - Constitutional Vitals: Vital Signs Temp Pulse Resp BP Pulse Ox 99.1 F 93 H 21 146/89 100 03/13/21 12:00 03/13/21 15:00 03/13/21 15:00 03/13/21 15:00 03/13/21 15:00 Temperature -Last 24 Hours Temperature 99.1 F Temperature 99.0 F Temperature 98.7 F Temperature 99.0 F Temperature 98.7 F - Labs CBC & Chem 7: 03/11/21 06:54 03/12/21 15:00 Labs: Abnormal lab results 03/12/21 03/12/2103/12/21 Range/Units 15:00 17:28 21:51 Potassium 3.2 L (3.6-5.0) mmol/L BUN 39 H (9-20) mg/dL Creatinine 0.7 L (0.8-1.3) mg/dL Glucose 258 H (75-100) mg/dL POC Glucose 257 H 253 H (70-105) mg/dL Calcium 8.3 L (8.4-10.2) mg/dL Total Bilirubin 2.20 H (0.1-1.2) mg/dL AST 181 H (5-40) units/L ALT 129 H (7-56) units/L Alkaline Phosphatase 541 H (35-129) units/L Total Protein 5.0 L (6.3-8.2) g/dL Albumin 2.0 L (3.9-5) g/dL 03/12/21 03/13/21 Range/Units 23:15 05:44 Potassium (3.6-5.0) mmol/L BUN (9-20) mg/dL Creatinine (0.8-1.3) mg/dL Glucose (75-100) mg/dL POC Glucose 287 H 247 H (70-105) mg/dL Calcium (8.4-10.2) mg/dL Total Bilirubin (0.1-1.2) mg/dL AST (5-40) units/L ALT (7-56) units/L Alkaline Phosphatase (35-129) units/L Total Protein (6.3-8.2) g/dL Albumin (3.9-5) g/dL
[2021-03-13] MEDS ORDERED: POTASSIUM CHLORIDE 20 MEQ 20 MEQ/100 ML BAG IV SCH (17:00)
[2021-03-13] MEDS: ZOLPIDEM 5 MG TAB PO PRN (21:16)
[2021-03-14] MEDS: INSULIN REGULAR, HUMAN 100 UNITS/1 ML SUB-Q SCH ×4 (00:17→17:33)
[2021-03-14 03:51] LABS: Hematocrit 22.2 % (35.5-45.6); Hemoglobin 7.4 gm/dl (11.8-15.2); Mean Corpuscular HGB Conc 33 % (32-34); Mean Corpuscular Volume 99 fl (84-94); Platelet Count 224 K/mm3 (140-440); Red Blood Count 2.25 M/mm3 (3.65-5.03); Red Cell Distribution Width 18.5 % (13.2-15.2)
[2021-03-14 04:16] LABS: Alanine Aminotransferase 188 units/L (7-56); Albumin 2.2 g/dL (3.9-5); Blood Urea Nitrogen 24 mg/dL (9-20); Calcium 8.5 mg/dL (8.4-10.2); Hemolysis Index 3
[2021-03-14 04:24] LABS: BUN/Creatinine Ratio 40
[2021-03-14] MEDS ORDERED: MAGNESIUM SULFATE 2 GM/50 ML BAG IV ONE (08:00)
[2021-03-14] MEDS: POTASSIUM CHLORIDE 20 MEQ 20 MEQ/100 ML BAG IV SCH ×2 (08:47→10:08)
[2021-03-14] MEDS: ZINC SULFATE 220 MG CAP PO SCH ×2 (10:11→21:41)
[2021-03-14] MEDS: ASCORBIC ACID 500 MG TAB PO SCH ×2 (10:11→21:41)
[2021-03-14] MEDS: CHOLECALCIFEROL (VIT D3) 1000 UNIT (25 mcg) TAB PO SCH (10:11)
[2021-03-14] MEDS: hydrALAZINE 25 MG TAB PO SCH ×3 (10:11→21:41)
[2021-03-14] MEDS: ASPIRIN 81 MG TAB CHEW PO SCH (10:11)
[2021-03-14] MEDS: SENNOSIDES/DOCUSATE SODIUM 8.6/50 MG TAB FEEDTUBE SCH ×2 (10:12→21:42)
[2021-03-14] MEDS: FUROSEMIDE 40 MG/4 ML INJ IV SCH (10:12)
[2021-03-14] MEDS: ENOXAPARIN 150 MG/1 ML INJ SUB-Q SCH ×2 (10:12→21:41)
[2021-03-14] MEDS: CALCIUM CARB/VIT D3/MINERALS 600 MG/800 UNITS TAB PO SCH ×2 (10:12→21:42)
[2021-03-14] MEDS: guaiFENesin ER 600 MG TAB PO SCH ×2 (10:12→21:42)
[2021-03-14] MEDS: FAMOTIDINE 20 MG TAB PO SCH ×2 (10:12→21:41)
--- NOTE | 2021-03-14 11:13 | Consultation ---
History of Present Illness - Reason for Consult Consult date: 03/14/21 Reason for consult: MHE - History of Present Psychiatric Illness The patient was seen today. He is COVID positive. He is a/o x 2. He is polite. He is coughing much of the interview and states he was SOB. He asked for a drink of water. The patient denies having any history of psych issues. When asking the patient was he suicidal or ever had an attempt. He laughs and says "never. I don't want to hurt myself." He denies homicidal ideation. He also denies hallucinations of any kind. The patient says "I'm not sure why they had you to come here." I mentioned to the patient about some of the things he was saying. He laughs and says "just sick." He denies any illicit drug use or alcohol. Diagnoses: Denies Suicide attempts or Self-harm behavior: Denies Prior psychiatric hospitalizations: Denies Substance Abuse history: Denies Previous psychiatric medications tried: Denies Outpatient treatment: Denies PAST MEDICAL HISTORY: None reported Family Psychiatric History: None reported or documented SOCIAL HISTORY Marital Status: Living Arrangements: with family Employment Status: Employed Access to guns/weapons: Denies Education: History of Abuse: none reported Legal History: none reported REVIEW OF SYSTEMS Constitutional: Negative for weight loss ENT: Negative for stridor Respiratory: Negative for cough or hemoptysis All other systems reviewed and are negative MENTAL STATUS EXAMINATION General Appearance and Behavior: Age appropriate, good hygiene, wearing appropriate clothes, awake, calm and cooperative Cooperation: Participating/engaged Psychomotor Behavior: normal Mood: okay Affect and affective range: congruent with mood Thought Process: goal directed Thought Content: denies Speech: normal tone and pace Suicidal Ideation: Denies Homicidal Ideation: Denies Hallucinations: Denies Delusions: None elicited Impulse Control: Limited Insight and Judgment: Limited Memory: Limited Attention: Normal Orientation: Alert, oriented Assessment and Plan (1) Altered Mental Status Treatment Plan Geodon 20mg IM q6h prn agitation Sitter: per primary Medical: Per primary Disposition: Do not recommend acute psychiatric inpatient treatment. The patient has complex and acute medical conditions that are likely causing his alteration in mental status. Will follow for progress. Thanks Case staffed with Dr. Guillermo Medications and Allergies Allergies Allergy/AdvReac Type Severity Reaction Status Date / Time Penicillins Allergy Rash Verified 03/30/19 10:45 Home Medications Medication Instructions Recorded Confirmed Last Taken Type Fluticasone/Salmeterol [Advair 1 puff IH BID 04/27/13 01/16/14 04/27/13 History Diskus 250-50 mcg] Potassium Chloride [Klor-Con M10] 10 meq PO QDAY 04/27/13 01/16/14 04/27/13 History hydroCHLOROthiazide [Hctz] 12.5 mg PO QDAY 04/27/13 01/16/14 04/27/13 History Albuterol Sulfate [Proair 90 mcg IH Q4HR PRN #2 [email or web address] 01/22/19 Unknown Rx Respiclick] Albuterol Sulfate [Albuterol 0.63% 0.63 mg IH Q4HR PRN #2 ml 01/23/19 Unknown Rx NEBS] Ipratropium [Atrovent NEB] 0.5 mg IH Q4HR #2 ml 01/23/19 Unknown Rx metFORMIN [Glucophage] 500 mg PO BID #30 tablet 03/30/19 Unknown Rx Active Meds: Active Medications Acetaminophen (Acetaminophen 325 Mg/10.15 Ml Oral Liqd Unit Dose) 650 mg FEEDTUBE Q6H PRN PRN Reason: Pain MILD(1-3)/Fever >100.5/VALDES Last Admin: 03/06/21 12:33 Dose: 650 mg Documented by: Albuterol (Albuterol 2.5 Mg/3 Ml Nebu) 2.5 mg IH Q4H PRN PRN Reason: Shortness Of Breath Last Admin: 03/11/21 23:05 Dose: 2.5 mg Documented by: Lipase/Protease/Amylase (Lipase 10,500/Protease 25,000/Amylase 43,750 (Units) Dr Gutierrez) 1 each FEEDTUBE PRN PRN PRN Reason: For Clogged Feeding Tube Ascorbic Acid (Ascorbic Acid 500 Mg Tab) 500 mg PO BID [facility] Last Admin: 03/14/21 10:11 Dose: 500 mg Documented by: Aspirin (Aspirin 81 Mg Tab Chew) 81 mg PO QDAY [facility] Last Admin: 03/14/21 10:11 Dose: 81 mg Documented by: Cholecalciferol (Cholecalciferol (Vit D3) 1000 Unit (25 Mcg) Tab) 1,000 unit PO QDAY [facility] Last Admin: 03/14/21 10:11 Dose: 1,000 unit Documented by: Dexamethasone (Dexamethasone 4 Mg/Ml Vial) 10 mg IV Q24H [facility] Stop: 03/15/21 12:01 Last Admin: 03/13/21 13:08 Dose: Not Given Documented by: Dextrose (Dextrose 50% In Water (25gm) 50 Ml Syringe) 50 ml IV Q30MIN PRN; Protocol PRN Reason: Hypoglycemia Enoxaparin Sodium (Enoxaparin 150 Mg/1 Ml Inj) 130 mg SUB-Q Q12HR [facility]; Protocol Last Admin: 03/14/21 10:12 Dose: 130 mg Documented by: Famotidine (Famotidine 20 Mg Tab) 20 mg PO BID [facility] Last Admin: 03/14/21 10:12 Dose: 20 mg Documented by: Furosemide (Furosemide 40 Mg/4 Ml Inj) 40 mg IV DAILY [facility] Stop: 03/15/21 10:01 Last Admin: 03/14/21 10:12 Dose: 40 mg Documented by: Guaifenesin (Guaifenesin Er 600 Mg Tab) 600 mg PO BID [facility] Last Admin: 03/14/21 10:12 Dose: 600 mg Documented by: Hydralazine HCl (Hydralazine 20 Mg/1 Ml Inj) 10 mg IV Q4H PRN PRN Reason: Hypertension Last Admin: 03/11/21 22:03 Dose: 10 mg Documented by: Hydralazine HCl (Hydralazine 25 Mg Tab) 25 mg PO TID [facility] Last Admin: 03/14/21 10:11 Dose: 25 mg Documented by: Hydrophilic Ointment (Lip Therapy Vaseline) 1 applic TP Q2H PRN PRN Reason: Dry Lips Sodium Chloride (Nacl 0.9% 500 Ml) 1,000 mls @ 1 mls/hr IV DIRECT PRN PRN Reason: ARTERIAL LINE FLUSH Insulin Glargine (Insulin Glargine 100 Units/Ml) 15 units SUB-Q QHS [facility] Insulin Human Regular (Insulin Regular, Human 100 Units/1 Ml) 0 units SUB-Q Q6HR [facility]; Protocol Last Admin: 03/14/21 06:54 Dose: Not Given Documented by: Labetalol HCl (Labetalol 100 Mg Tab) 100 mg PO TID [facility] Last Admin: 03/14/21 10:10 Dose: 100 mg Documented by: Magnesium Hydroxide (Magnesium Hydroxide (Mom) Oral Liqd Udc) 30 ml PO Q4H PRN PRN Reason: Constipation Metoprolol Tartrate (Metoprolol Tartrate 5 Mg/5 Ml Inj) 5 mg IV Q6HR PRN PRN Reason: Tachyarrhythmias Last Admin: 03/12/21 14:40 Dose: 5 mg Documented by: Multi-Ingred Cream/Lotion/Oil/Oint (Mineral Oil/Petrolatum, White Ophth Oint 3.5 Gm) 1 applic OU Q4HR PRN PRN Reason: Dry Eye(s) Multivitamins/Minerals (Calcium Carb/Vit D3/Minerals 600 Mg/800 Units Tab) 1 each PO BID [facility] Last Admin: 03/14/21 10:12 Dose: 1 each Documented by: Senna/Docusate Sodium (Sennosides/Docusate Sodium 8.6/50 Mg Tab) 1 tab FEEDTUBE BID [facility] Last Admin: 03/14/21 10:12 Dose: 1 tab Documented by: Simple Syrup (Simple Syrup 15 Ml) 15 ml FEEDTUBE PRN PRN PRN Reason: Hypoglycemia Simple Syrup (Simple Syrup 15 Ml) 30 ml FEEDTUBE PRN PRN PRN Reason: Hypoglycemia Sodium Bicarbonate (Sodium Bicarbonate 325 Mg Tab) 325 mg FEEDTUBE PRN PRN PRN Reason: For Clogged Feeding Tube Sodium Chloride (Sodium Chloride 0.9% 10 Ml Flush Syringe) 10 ml IV BID [facility] Last Admin: 03/14/21 10:13 Dose: 10 ml Documented by: Sodium Chloride (Sodium Chloride 0.9% 10 Ml Flush Syringe) 10 ml IV PRN PRN PRN Reason: LINE FLUSH Zinc Sulfate (Zinc Sulfate 220 Mg Cap) 220 mg PO BID [facility] Last Admin: 03/14/21 10:11 Dose: 220 mg Documented by: Zolpidem Tartrate (Zolpidem 5 Mg Tab) 5 mg PO QHS PRN PRN Reason: Sleep Last Admin: 03/13/21 21:16 Dose: 5 mg Documented by: Mental Status Exam - Vital signs Last Vital Signs Temp 98.7 F 03/14/21 04:00 Pulse 116 H 03/14/21 10:01 Resp 31 H 03/14/21 10:01 BP 166/116 03/14/21 10:11 Pulse Ox 85 03/14/21 10:01 Results Result Diagrams: 03/14/21 03:40 03/14/21 03:40 Abnormal lab results 03/13/21 03/13/21 03/14/21 Range/Units 17:03 23:31 03:40 RBC (3.65-5.03) M/mm3 Hgb (11.8-15.2) gm/dl Hct (35.5-45.6) % MCV (84-94) fl MCH (28-32) pg RDW (13.2-15.2) % D-Dimer 475.91 H (0-234) ng/mlDDU Potassium (3.6-5.0) mmol/L Carbon Dioxide (22-30) mmol/L BUN (9-20) mg/dL Creatinine (0.8-1.3) mg/dL Glucose (75-100) mg/dL POC Glucose 228 H 275 H (70-105) mg/dL Ferritin (30.0-300.0) ng/mL Total Bilirubin (0.1-1.2) mg/dL AST (5-40) units/L ALT (7-56) units/L Alkaline Phosphatase (35-129) units/L Lactate Dehydrogenase (91-180) units/L C-Reactive Protein (0.00-1.30) mg/dL Total Protein (6.3-8.2) g/dL Albumin (3.9-5) g/dL 03/14/21 03/14/21 03/14/21 Range/Units 03:40 03:40 03:40 RBC 2.25 L (3.65-5.03) M/mm3 Hgb 7.4 L (11.8-15.2) gm/dl Hct 22.2 L (35.5-45.6) % MCV 99 H (84-94) fl MCH 33 H (28-32) pg RDW 18.5 H (13.2-15.2) % D-Dimer (0-234) ng/mlDDU Potassium 3.3 L (3.6-5.0) mmol/L Carbon Dioxide 37 H D (22-30) mmol/L BUN 24 H (9-20) mg/dL Creatinine 0.6 L (0.8-1.3) mg/dL Glucose 180 H (75-100) mg/dL POC Glucose (70-105) mg/dL Ferritin 3103.0 H (30.0-300.0) ng/mL Total Bilirubin 1.60 H (0.1-1.2) mg/dL AST 283 H (5-40) units/L ALT 188 H (7-56) units/L Alkaline Phosphatase 619 H (35-129) units/L Lactate Dehydrogenase 588 H (91-180) units/L C-Reactive Protein 4.00 H (0.00-1.30) mg/dL Total Protein 4.8 L (6.3-8.2) g/dL Albumin 2.2 L (3.9-5) g/dL All other labs normal.
[2021-03-14] MEDS ORDERED: ZIPRASIDONE MESYLATE 20 MG VIAL IM PRN (11:18)
[2021-03-14] MEDS: dexAMETHasone 4 MG/ML VIAL IV SCH (11:54)
--- NOTE | 2021-03-14 12:42 | Progress Note ---
Assessment and Plan SVT * Patient had SVT into 180s on 03/12/2021. Resolved after being given Adenosine 6mg IV. Patient was then started on Amio gtt * Patient has since been Sinus rhythm on monitor. Discontinue Amio gtt and switched to Amio 20mmg BID PO. Patient is has been refusing medications today continue to monitor Hypertension * Patient currently on labetolol 100mg BID, Hydralizine 25 mg TID HFpEF * Echo 12/13/2020 - EF 55-60%, otherwise technically difficult study. * Echo 05/2016 - LV mildly dilated, EF 55-60%, grade II diastolic dysfxn, RV mildly enlarged, normal RV sys fxn, LA mildly dilated, RA mildly dilated, mild-mod AR, mild [place], mild aortic root dilatation. * Patient is on Lasix 40mg IV QD COVID-19 PNA Acute hypoxic resporitary failure * Patient positive for COVID-19 * Secondary to COVID PNA * Pulmonology and infectious disease are following DVT of RLE * Patient on Enoxaparin 130mg SQ BID . Plan to transition to Coumadin once pa clive is hemodynamically stable * He was diagnosed with a LLE DVT in March 2020 and appears to have been on Coumadin as an outpatient. Patient seen in conjunction with Dr. Lassiter who agrees with this plan of care. Will continue to follow. 30min of critical care time spent in care of coordination of this patient - Patient Problems (1) ALPHONSO (acute kidney injury) Current Visit: Yes Status: Acute (2) Acute and chronic respiratory failure ([id number]) Current Visit: Yes Status: Acute (3) Acute deep vein thrombosis (DVT) of right lower extremity Current Visit: Yes Status: Acute (4) Encephalopathy Current Visit: Yes Status: Acute (5) NSTEMI (non-ST elevated myocardial infarction) Current Visit: Yes Status: Acute (6) Transaminitis Current Visit: Yes Status: Acute (7) COPD (chronic obstructive pulmonary disease) Current Visit: Yes Status: Chronic (8) Chronic heart failure with preserved ejection fraction (HFpEF) Current Visit: Yes Status: Chronic (9) DM2 (diabetes mellitus, type 2) Current Visit: Yes Status: Chronic (10) H/O: HTN (hypertension) Current Visit: Yes Status: Chronic (11) History of pulmonary embolus (PE) Current Visit: Yes Status: Chronic (12) COVID-19 Current Visit: Yes Status: Acute Subjective Date of service: 03/14/21 Principal diagnosis: Ac hypoxemic resp failure; NSTEMI; ALPHONSO; Sepsis; PNA; CHF; DM II; AMS Interval history: Patient sitting in bed. Sinus tachy 100s on monitor Objective Last Vital Signs Temp 98.7 F 03/14/21 04:00 Pulse 103 H 03/14/21 12:01 Resp 28 H 03/14/21 12:01 BP 167/75 03/14/21 12:01 Pulse Ox 95 03/14/21 12:01 - Physical Examination General: No Apparent Distress, Other (intubated) HEENT: Positive: Normocephaly Neck: Positive: trachea midline Cardiac: Positive: Regular Rhythm, Tachycardia Lungs: Positive: Decreased Breath Sounds Neuro: Positive: Grossly Intact, Other (intubated) Abdomen: Positive: Soft Skin: Negative: Rash Incision: Cardiac Cath Site Musculoskeletal: No Fluid Collection Extremities: Present: upper extr. pulses, lower extr. pulses, +3 Edema, warm, Other (anasarca) - Labs and Meds Cardiac Enzymes 03/14/21 Range/Units 03:40 AST 283 H (5-40) units/L Lactate Dehydrogenase 588 H (91-180) units/L CBC 03/14/21 Range/Units 03:40 WBC 6.8 (4.5-11.0) K/mm3 RBC 2.25 L (3.65-5.03) M/mm3 Hgb 7.4 L (11.8-15.2) gm/dl Hct 22.2 L (35.5-45.6) % Plt Count 224 (140-440) K/mm3 Comprehensive Metabolic Panel 03/14/21 Range/Units 03:40 Sodium 145 (137-145) mmol/L Potassium 3.3 L (3.6-5.0) mmol/L Chloride 103.0 (98-107) mmol/L Carbon Dioxide 37 H D (22-30) mmol/L BUN 24 H (9-20) mg/dL Creatinine 0.6 L (0.8-1.3) mg/dL Glucose 180 H (75-100) mg/dL Calcium 8.5 (8.4-10.2) mg/dL AST 283 H (5-40) units/L ALT 188 H (7-56) units/L Alkaline Phosphatase 619 H (35-129) units/L Total Protein 4.8 L (6.3-8.2) g/dL Albumin 2.2 L (3.9-5) g/dL - Imaging and Cardiology EKG: report reviewed, image reviewed Echo: report reviewed (12/2020 - EF 55-60%) Cardiac cath: pending - Telemetry EKG Rhythm: Sinus Tachycardia - EKG Sinus rhythms and dysrhythmias: sinus tachycardia AV and intraventricular conduction: right bundle branch block Repolarization changes or abnormalities: nonspecific abnormality, ST segment, and/or T wave - Allied health notes Allied health notes reviewed: nursing
--- NOTE | 2021-03-14 14:52 | Progress Note ---
Assessment and Plan Assessment and plan: This is a a 51 year old male admitted for for severe sepsis, respiratory failure, pneumonia and ALPHONSO. PMH: COPD, CHF, DM, DVT/PE, HTN, KAM, obesity, asthma PSx: none reported home meds: albuterol sulfate, advair, HCTZ, atrovent, glucophage, Klor-Con, midodrine, metoprolol, lasix, lantus, coumadin (from audit and home meds reconciliation) Social: unknown A/P Neuro: Metabolic encephalopathy -Resolved. -Now extbated Cardio: SR/ST: Acute on Chronic HFpEF (per cards), NSTEMI, h/o HTN, HLD, Prolonged QTc, SVT -Cardiology consulted, appreciate recommendations -midodrine d/c r/t HTN -BP monitoring per protocol -Labetalol PO -Per cardiology: 1. gentle IV diuresis when able 2. Echo 12/13/2020 - EF 55-60%, otherwise technically difficult study. Echo 05/2016 - LV mildly dilated, EF 55-60%, grade II diastolic dysfxn, RV mildly enlarged, normal RV sys fxn, LA mildly dilated, RA mildly dilated, mild-mod AR, mild MA, mild aortic root dilatation. Resp: Acute on chronic hypoxic respiratory failure, Bilateral PNA, hx COPD, KAM, asthma, ?PE -[facility] consulted, appreciate recommendations -MV, wean as tolerated -Intubated 03/01, tube exchange 03/09 OETT 8/0 @ 25 lip -nOW EXTUBATED 03/10 -Continuos SPO2 monitoring -abx with levaquin (03/02-03/07)-DC 03/05 r/t prolonged QTc -03/01 CT chest shows several pulmonary nodules within Right lung measuring 6-8 mm, increased interstitial prominence -? f/u outpt with PCP/pulmanology -03/10 CXR reviewed GI: Transaminitis, TF -GI consulted, appreciate recommendations -Trend LFTs -RUQ US shows no evidence of cholelithiasis, cholecytitis or choledocholithisis -CT abd/pelvis showed fatty infiltration of liver -Ntr consult for TF -PPI -BR [place] -last BM 03/06 -24 hr net (-) 225 : ALPHONSO (stable/resolved) -Nephrology consulted, appreciate recommendations -Pt was on HD at recent hospitalization at OSH -Renally dose mediations -Avoid nephrotoxic medications -Strict I&Os -Renal US shows no significant abnormality -Daily weights -Replete electrolytes -Trend BMP -s/p lasix x 2, prn hydral -Trial lasix again today Heme: DVT-R posterior tibial vein, h/o LLE DVT (December 2019)/ PE (failed Xa inhibitors per cards; on home coumadin) -evidenced on BLE Doppler US -Heparin gtt d/c to lovenox subq (03/09) -SCDs while in bed -Per cards: Eventually plan to transition to Coumadin ID: Severe Sepsis, B PNA, COVID 19 infection -s/p abx therapy (azithromycin 03/01-03/02, aztreonam 03/02, cefepime 03/01-03/02, levaquin 03/02-03/05, flagyl 03/01-03/02, vancomycin 03/01-03/02) -VAP bundle -MRSA (+) nares -COVID 19 PCR (+) -Decadron for 10 days (03/06-03/15) -Remdesivir (03/06-03/10) -Contact/Droplet precautions -03/01 BCx2 with NGTD, UC with NGTD, sputum culture normal sole -03/06 BC NGTD -Prone if needed -Vit C/D/Zinc Endo: DM -SSI, lantus (titrate as needed) -Accuchecks q6 -Avoid hypoglycemia FEN: Hypokalemia, Hypomagenesmia- Replace lines: condom cath, PIV, RADHA Disposition: ICU Full code The high probability of a clinically significant, sudden or life threatening deterioration of the [multi] system(s) required my full and direct attention, intervention and personal management. The aggregate critical care time was [40] minutes. This time is in addition to time spent performing reported procedures but includes the following: [x] Data Review and interpretation [x] Patient assessment and monitoring of vital signs [x] Documentation [x] Medication orders and management History Interval history: This is a 51-year-old -Angolan male with COPD with chronic respiratory failure, CHFpEF, diabetes mellitus, DVT/PE on coumadin and hypertension who p resented to [facility] via EMS for AMS and hypoxia. On arrival of EMS oxygen saturation was about 88% on room air, blood pressure was said to be about 88/50 mmHg. Work-up in the emergency room reveals leukocytosis of 12.7, hemoglobin of 9.1 and hematocrit of 27.7, sodium of 132, lactic acid of 2.90, elevated liver enzymes and elevated troponin at 0.493. A CT of the chest showed findings concerning for atelectasis and or infiltrate, CT of the head was unremarkable. Patient was in severe respiratory distress upon arrival in the emergency room and subsequently intubated. Patient was admitted to the hospitalist service with consults to cardiology, CCM, GI, and neprohology for severe sepsis, respiratory failure, pneumonia and ALPHONSO. Of note patient was admitted to [facility] from 12/12-01/14 and was on HD during that admit. 03/03/21: Patient remains intubated, continue on heparin drip, monitor H&H and BMP. Continue empiric antibiotics, ID following. Follow ammonia level and LFT. According to cardiology patient indeed had preserved EF during his recent admission to [place]. Plan to repeat 2D echo. Critical care following, wean off from vent as tolerated. 03/04: RN reported blood y secretions in OETT and clots, heparin gtt stopped and B LE US obtained which shows DVT, abx deescalated, heparin gtt restarted. 03/05: RN reported vomiting x1, promithazine x1 given, Qtc at 599 on EKG. AM labs pending. tmax 102.2, reculture with next spike, COVID 19 PCR. abx stopped re prolonged qtc and received CAP coverage. 03/06: Reported high TF residual, COVID PCR pending. Cr better today. tmax 100.7 03/07: radha placed yesterday, started on remdesivir re positive covid. ID consulted yesterday. SHERYL overnight. 03/08: SHERYL reported overnight. Patient is now hypertensive and midodrine has been held. Will now place on low dose antihtn and prn hydral. 03/09: Patient reportedly through tube and OETT was exchanged, patient was given paralytic for exchange. No acute events reported overnight. Patient noted to be hypertensive and we will trial Lasix again today. 03/10: PSV trial today. fentayl was stopped. BP maintaining. SHERYL overnight. 03/11: Patient was extuabted, awaiting Speech therapy, discussed with nursing staff at bedside, considering Hypertensive urgency, will do a bedside swallow eval and give oral meds if passed. Continue aspiration precautions. The patient has hx of Asthma, continue neb treatment. 03/12: Patient remains in ICU care secondary to SVT and unstable hemodynamics. Cardiology reevaluated patient was given adenosine and started on amnio drip. Still awaiting speech therapy evaluation although considering her current condition we will keep the patient n.p.o. Case discussed with regional education coordinator and glass pulverizer equipment operator. Monitor electrolytes and correct as needed. 03/13: Patient this morning remains in normal sinus rhythm following the adenosine and amnio drip which is still going the latter I mean. I will start the patient on Lasix for 3 days and monitor her renal function. Patient is already on high dose of dexamethasone considering his history of bronchospasm disease. We will repeat a pulmonary evaluation we will correct electrolytes especially with the Lasix. CCT 35 pLAN DISCUSSED WITH THE PATIENT AND NURSE 03/14: Patient unfortunately is declining continues on high flow -70% intermittent altered mental status refusing all treatment plan. Psych saw the patient recommended Geodon as needed. Will transition some medications to IV. Continue encouraging patient to use BiPAP. Continue nebulizer treatment and steroid therapy. Pulmonary and cardiology input also appreciated. The high probability of a clinically significant, sudden or life threatening deterioration of the [pulmonary, neuro, cardiac] system(s) required my full and direct attention, intervention and personal management. The aggregate critical care time was [35] minutes. This time is in addition to time spent performing reported procedures but includes the following: [x] Data Review and interpretation [x] Patient assessment and monitoring of vital signs [x] Documentation [x] Medication orders and management History Interval history: Patient seen and examined, seen and examined this morning. He continues to receive refuse treatment.Up to 70% on high flow Hospitalist Physical - Physical exam Narrative exam: General appearance: Present: no acute distress, well-nourished, obese, generalized anasarca although improving - EENT Eyes: Present: PERRL, EOM intact ENT: clear oral mucosa - Neck Neck: Present: normal ROM - Respiratory Respiratory effort: normal Respiratory: bilateral: diminished - Cardiovascular Rhythm: regular Heart Sounds: Present: S1 & S2. Absent: systolic murmur, diastolic murmur - Extremities Extremities: no ischemia, pulses intact, pulses symmetrical, pitting edema, normal temperature, normal color - Abdominal General gastrointestinal: soft, non-tender, non-distended, normal bowel sounds - Integumentary Integumentary: Present: clear, warm, dry- see full documentation of skin exam in nursing assessment - Psychiatric Psychiatric: cooperative - Neurologic Neurologic: moves all extremities - Allied Health Allied health notes reviewed: nursing, RT - Constitutional Vitals: Temp Pulse Resp BP Pulse Ox 98.7 F 103 H 28 H 167/75 95 03/14/21 04:00 03/14/21 12:01 03/14/21 12:01 03/14/21 12:01 03/14/21 12:01 General appearance: Present: no acute distress, well-nourished, obese, other (sedated) HEART Score - HEART Score Troponin: Troponin T 0.149 ng/mL (0.00-0.029) H* 03/12/21 04:44 Results - Labs CBC & Chem 7: 03/14/21 03:40 03/14/21 03:40 Labs: Laboratory Last Values WBC 6.8 K/mm3 (4.5-11.0) 03/14/21 03:40 RBC 2.25 M/mm3 (3.65-5.03) L 03/14/21 03:40 Hgb 7.4 gm/dl (11.8-15.2) L 03/14/21 03:40 Hct 22.2 % (35.5-45.6) L 03/14/21 03:40 MCV 99 fl (84-94) H 03/14/21 03:40 MCH 33 pg (28-32) H 03/14/21 03:40 MCHC 33 % (32-34) 03/14/21 03:40 RDW 18.5 % (13.2-15.2) H 03/14/21 03:40 Plt Count 224 K/mm3 (140-440) 03/14/21 03:40 Lymph % (Auto) 22.4 % (13.4-35.0) 03/06/21 05:20 Taney % (Auto) 4.5 % (0.0-7.3) 03/06/21 05:20 Eos % (Auto) 0.2 % (0.0-4.3) 03/06/21 05:20 Baso % (Auto) 0.3 % (0.0-1.8) 03/06/21 05:20 Lymph # (Auto) 3.4 K/mm3 (1.2-5.4) 03/06/21 05:20 Taney # (Auto) 0.7 K/mm3 (0.0-0.8) 03/06/21 05:20 Eos # (Auto) 0.0 K/mm3 (0.0-0.4) 03/06/21 05:20 Baso # (Auto) 0.1 K/mm3 (0.0-0.1) 03/06/21 05:20 Add Manual Diff Complete 03/01/21 19:21 Total Counted 100 03/01/21 19:21 Seg Neutrophils % 72.6 % (40.0-70.0) H 03/06/21 05:20 Seg Neuts % (Manual) 49.0 % (40.0-70.0) 03/01/21 19:21 Lymphocytes % (Manual) 32.0 % (13.4-35.0) 03/01/21 19:21 Monocytes % (Manual) 17.0 % (0.0-7.3) H 03/01/21 19:21 Eosinophils % (Manual) 1.0 % (0.0-4.3) 03/01/21 19:21 Basophils % (Manual) 1.0 % (0.0-1.8) 03/01/21 19:21 Nucleated RBC % Not Reportable 03/01/21 19:21 Seg Neutrophils # 11.1 K/mm3 (1.8-7.7) H 03/06/21 05:20 Seg Neutrophils # Man 6.2 K/mm3 (1.8-7.7) 03/01/21 19:21 Band Neutrophils # 0.0 K/mm3 03/01/21 19:21 Lymphocytes # (Manual) 4.1 K/mm3 (1.2-5.4) 03/01/21 19:21 Abs React Lymphs (Man) 0.0 K/mm3 03/01/21 19:21 Monocytes # (Manual) 2.2 K/mm3 (0.0-0.8) H 03/01/21 19:21 Eosinophils # (Manual) 0.1 K/mm3 (0.0-0.4) 03/01/21 19:21 Basophils # (Manual) 0.1 K/mm3 (0.0-0.1) 03/01/21 19:21 Metamyelocytes # 0.0 K/mm3 03/01/21 19:21 Myelocytes # 0.0 K/mm3 03/01/21 19:21 Promyelocytes # 0.0 K/mm3 03/01/21 19:21 Blast Cells # 0.0 K/mm3 03/01/21 19:21 WBC Morphology Not Reportable 03/01/21 19:21 Hypersegmented Neuts Not Reportable 03/01/21 19:21 Hyposegmented Neuts Not Reportable 03/01/21 19:21 Hypogranular Neuts Not Reportable 03/01/21 19:21 Smudge Cells Not Reportable 03/01/21 19:21 Toxic Granulation Not Reportable 03/01/21 19:21 Toxic Vacuolation Not Reportable 03/01/21 19:21 Dohle Bodies Not Reportable 03/01/21 19:21 Pelger-Huet Anomaly Not Reportable 03/01/21 19:21 Katherine Rods Not Reportable 03/01/21 19:21 Platelet Estimate Not Reportable 03/01/21 19:21 Clumped Platelets Not Reportable 03/01/21 19:21 Plt Clumps, EDTA Not Reportable 03/01/21 19:21 Large Platelets Not Reportable 03/01/21 19:21 Giant Platelets Not Reportable 03/01/21 19:21 Platelet Satelliting Not Reportable 03/01/21 19:21 Plt Morphology Comment Not Reportable 03/01/21 19:21 RBC Morphology Not Reportable 03/01/21 19:21 Dimorphic RBCs Not Reportable 03/01/21 19:21 Polychromasia Not Reportable 03/01/21 19:21 Hypochromasia Not Reportable 03/01/21 19:21 Poikilocytosis Not Reportable 03/01/21 19:21 Anisocytosis Rare 03/01/21 19:21 Microcytosis Not Reportable 03/01/21 19:21 Macrocytosis Not Reportable 03/01/21 19:21 Spherocytes Not Reportable 03/01/21 19:21 Pappenheimer Bodies Not Reportable 03/01/21 19:21 Sickle Cells Not Reportable 03/01/21 19:21 Target Cells Not Reportable 03/01/21 19:21 Tear Drop Cells Not Reportable 03/01/21 19:21 Ovalocytes Not Reportable 03/01/21 19:21 Helmet Cells Not Reportable 03/01/21 19:21 Quinones-Alzada Bodies Not Reportable 03/01/21 19:21 [place] Rings Not Reportable 03/01/21 19:21 [place] Cells Not Reportable 03/01/21 19:21 Bite Cells Not Reportable 03/01/21 19:21 Crenated Cell Not Reportable 03/01/21 19:21 Elliptocytes Not Reportable 03/01/21 19:21 Acanthocytes (Spur) Not Reportable 03/01/21 19:21 Rouleaux Not Reportable 03/01/21 19:21 Hemoglobin C Crystals Not Reportable 03/01/21 19:21 Schistocytes Few 03/01/21 19:21 Malaria parasites Not Reportable 03/01/21 19:21 Henry Bodies Not Reportable 03/01/21 19:21 Hem Pathologist Commnt No 03/01/21 19:21 PT 15.6 Sec. (12.2-14.9) H 03/04/21 10:17 INR 1.18 (0.87-1.13) H 03/04/21 10:17 APTT 36.6 Sec. (24.2-36.6) 03/02/21 16:28 D-Dimer 475.91 ng/mlDDU (0-234) H 03/14/21 03:40 Heparin Anti-Xa Level 0.64 U.I./ml (0.3-0.7) 03/08/21 10:30 ABG pH 7.487 (7.320-7.450) H 03/10/21 12:33 POC ABG pCO2 40.4 mmHg (32.0-48.0) 03/10/21 12:33 POC ABG pO2 62.1 mmHg (83-108) L 03/10/21 12:33 POC ABG HCO3 29.9 03/10/21 12:33 ABG O2 Saturation 90.2 (0-100) 03/10/21 12:33 POC ABG Base Excess 6.0 03/10/21 12:33 ABG Hemoglobin 9.4 (12.0-17.5) L 03/10/21 12:33 ABG Oxyhemoglobin 89.7 (94-98) L 03/10/21 12:33 ABG Methemoglobin 0.3 (0.0-1.5) 03/10/21 12:33 ABG Sodium 138.7 mmol/L (136.0-145.0) 03/10/21 12:33 ABG Potassium 3.7 mmol/L (3.40-4.50) 03/10/21 12:33 ABG Chloride 104.0 mmol/L (98-107) 03/10/21 12:33 ABG Glucose 350 mg/dL (65-95) H 03/10/21 12:33 Carboxyhemoglobin 0.2 (0.5-1.5) L 03/10/21 12:33 FiO2 % 35.0 03/10/21 12:33 Sodium 145 mmol/L (137-145) 03/14/21 03:40 Potassium 3.3 mmol/L (3.6-5.0) L 03/14/21 03:40 Chloride 103.0 mmol/L (98-107) 03/14/21 03:40 Carbon Dioxide 37 mmol/L (22-30) H D 03/14/21 03:40 Anion Gap 8 mmol/L 03/14/21 03:40 BUN 24 mg/dL (9-20) H 03/14/21 03:40 Creatinine 0.6 mg/dL (0.8-1.3) L 03/14/21 03:40 Estimated GFR > 60 ml/min 03/14/21 03:40 BUN/Creatinine Ratio 40 % 03/14/21 03:40 Glucose 180 mg/dL (75-100) H 03/14/21 03:40 POC Glucose 275 mg/dL (70-105) H 03/13/21 23:31 Lactic Acid 1.70 mmol/L (0.7-2.0) 03/04/21 10:17 Calcium 8.5 mg/dL (8.4-10.2) 03/14/21 03:40 Phosphorus 2.60 mg/dL (2.5-4.5) 03/14/21 03:40 Magnesium 1.80 mg/dL (1.7-2.3) 03/14/21 03:40 Ferritin 3103.0 ng/mL (30.0-300.0) H 03/14/21 03:40 Total Bilirubin 1.60 mg/dL (0.1-1.2) H 03/14/21 03:40 Direct Bilirubin 0.6 mg/dL (0-0.2) H 03/04/21 05:26 Indirect Bilirubin 0.2 mg/dL 03/04/21 05:26 AST 283 units/L (5-40) H 03/14/21 03:40 ALT 188 units/L (7-56) H 03/14/21 03:40 Alkaline Phosphatase 619 units/L (35-129) H 03/14/21 03:40 Ammonia 71.0 umol/L (25-60) H 03/01/21 19:21 Lactate Dehydrogenase 588 units/L (91-180) H 03/14/21 03:40 Troponin T 0.149 ng/mL (0.00-0.029) H* 03/12/21 04:44 C-Reactive Protein 4.00 mg/dL (0.00-1.30) H 03/14/21 03:40 Total Protein 4.8 g/dL (6.3-8.2) L 03/14/21 03:40 Albumin 2.2 g/dL (3.9-5) L 03/14/21 03:40 Albumin/Globulin Ratio 0.8 % 03/14/21 03:40 Triglycerides 400 mg/dL (2-149) H 03/01/21 19:21 Cholesterol 232 mg/dL (50-199) H 03/01/21 19:21 LDL Cholesterol Direct 130 mg/dL (50-130) 03/01/21 19:21 HDL Cholesterol 22 mg/dL (40-59) L 03/01/21 19:21 Cholesterol/HDL Ratio 10.54 % 03/01/21 19:21 Lipase 78 units/L (13-60) H 03/04/21 10:17 Procalcitonin 1.18 ng/mL (<0.15) 03/08/21 06:10 TSH 1.840 mlU/mL (0.270-4.200) 03/03/21 04:06 Arterial Blood Glucose 350 mg/dL (65-95) H 03/10/21 12:33 Arterial Blood Ionized Calcium 4.6 mg/dL (4.6-5.3) 03/10/21 12:33 Urine Color Ariadne (Yellow) 03/06/21 14:34 Urine Turbidity Cloudy (Clear) 03/06/21 14:34 Urine pH 5.0 (5.0-7.0) 03/06/21 14:34 Ur Specific [place] 1.014 (1.003-1.030) 03/06/21 14:34 Urine Protein 30 mg/dl mg/dL (Negative) 03/06/21 14:34 Urine Glucose (UA) Neg mg/dL (Negative) 03/06/21 14:34 Urine Ketones Neg mg/dL (Negative) 03/06/21 14:34 Urine Blood Sm (Negative) 03/06/21 14:34 Urine Nitrite Neg (Negative) 03/06/21 14:34 Urine Bilirubin Neg (Negative) 03/06/21 14:34 Urine Urobilinogen 4.0 mg/dL (<2.0) 03/06/21 14:34 Ur Leukocyte Esterase Neg (Negative) 03/06/21 14:34 Urine WBC (Auto) 103.0 /HPF (0.0-6.0) H 03/06/21 14:34 Urine RBC (Auto) 105.0 /HPF (0.0-6.0) 03/06/21 14:34 U Epithel Cells (Auto) 5.0 /HPF (0-13.0) 03/06/21 14:34 Urine Bacteria (Auto) 2+ /HPF (Negative) 03/06/21 14:34 Hyaline Casts 5 /LPF 03/06/21 14:34 Urine Mucus 1+ /HPF 03/06/21 14:34 Urine Yeast (Budding) Few /HPF 03/01/21 21:40 Urine Sperm 3+ /HPF (LOT PORTER) 03/06/21 14:34 Nasal Screen MRSA (PCR) Positive (Negative) 03/02/21 05:00 Salicylates < 0.3 mg/dL (2.8-20.0) L 03/01/21 19:21 Urine Opiates Screen Positive 03/01/21 21:40 Urine Methadone Screen Negative 03/01/21 21:40 Acetaminophen 5.0 ug/mL (10.0-30.0) L 03/01/21 19:21 Ur Barbiturates Screen Negative 03/01/21 21:40 Ur Phencyclidine Scrn Negative 03/01/21 21:40 Ur Amphetamines Screen Negative 03/01/21 21:40 U Benzodiazepines Scrn Negative 03/01/21 21:40 Urine Cocaine Screen Negative 03/01/21 21:40 U Marijuana (THC) Screen Negative 03/01/21 21:40 Drugs of Abuse Note Disclamer 03/01/21 21:40 KARLA Screen Negative (Negative) 03/03/21 04:06 Coronavirus (PCR) Positive (Negative) A 03/05/21 Unknown Blood Type O POSITIVE 03/01/21 19:21 Antibody Screen Negative 03/01/21 19:21 Vilchis/IV: Voiding Method External Female Catheter Active Medications - Current Medications Current Medications: Generic Name Dose Route Start Last Admin Trade Name Freq PRN Reason Stop Dose Admin Acetaminophen 650 mg 03/06/21 10:00 03/06/21 12:33 Acetaminophen 325 Mg/10.15 Ml Oral Liqd Unit Dose FEEDTUBE 650 mg Q6H PRN Administration Pain MILD(1-3)/Fever >100.5/VALDES Albuterol 2.5 mg 03/02/21 15:45 03/11/21 23:05 Albuterol 2.5 Mg/3 Ml Nebu IH 2.5 mg Q4H PRN Administration Shortness Of Breath Lipase/Protease/Amylase 1 each 03/03/21 10:53 Lipase 10,500/Protease 25,000/Amylase 43,750 (Units) Dr Gutierrez FEEDTUBE PRN PRN For Clogged Feeding Tube Ascorbic Acid 500 mg 03/06/21 22:00 03/14/21 10:11 Ascorbic Acid 500 Mg Tab PO 500 mg BID KYLE Administration Aspirin 81 mg 03/04/21 10:00 03/14/21 10:11 Aspirin 81 Mg Tab Chew PO 81 mg QDAY KYLE Administration Cholecalciferol 1,000 unit 03/07/21 10:00 03/14/21 10:11 Cholecalciferol (Vit D3) 1000 Unit (25 Mcg) Tab PO 1,000 unit QDAY KYLE Administration Dexamethasone 10 mg 03/07/21 12:00 03/14/21 11:54 Dexamethasone 4 Mg/Ml Vial IV 03/15/21 12:01 10 mg Q24H KYLE Administration Dextrose 50 ml 03/02/21 11:38 Dextrose 50% In Water (25gm) 50 Ml Syringe IV Q30MIN PRN Hypoglycemia Protocol Enoxaparin Sodium 130 mg 03/09/21 11:00 03/14/21 10:12 Enoxaparin 150 Mg/1 Ml Inj SUB-Q 130 mg Q12HR KYLE Administration Protocol Famotidine 20 mg 03/04/21 10:00 03/14/21 10:12 Famotidine 20 Mg Tab PO 20 mg BID KYLE Administration Furosemide 40 mg 03/13/21 10:00 03/14/21 10:12 Furosemide 40 Mg/4 Ml Inj IV 03/15/21 10:01 40 mg DAILY KYLE Administration Guaifenesin 600 mg 03/11/21 22:00 03/14/21 10:12 Guaifenesin Er 600 Mg Tab PO 600 mg BID KYLE Administration Hydralazine HCl 10 mg 03/09/21 08:21 03/11/21 22:03 Hydralazine 20 Mg/1 Ml Inj IV 10 mg Q4H PRN Administration Hypertension Hydralazine HCl 25 mg 03/11/21 14:00 03/14/21 14:07 Hydralazine 25 Mg Tab PO Not Given TID KYLE Hydrophilic Ointment 1 applic 03/02/21 15:42 Lip Therapy Vaseline TP Q2H PRN Dry Lips Sodium Chloride 1,000 mls @ 1 mls/hr 03/06/21 18:11 Nacl 0.9% 500 Ml IV DIRECT PRN ARTERIAL LINE FLUSH Insulin Glargine 15 units 03/14/21 22:00 Insulin Glargine 100 Units/Ml SUB-Q QHS [facility] Insulin Human Regular 0 units 03/10/21 18:00 03/14/21 11:55 Insulin Regular, Human 100 Units/1 Ml SUB-Q Not Given Q6HR [facility] Protocol Labetalol HCl 100 mg 03/11/21 14:00 03/14/21 14:07 Labetalol 100 Mg Tab PO Not Given TID KYLE Magnesium Hydroxide 30 ml 03/02/21 00:18 Magnesium Hydroxide (Mom) Oral Liqd Udc PO Q4H PRN Constipation Metoprolol Tartrate 5 mg 03/12/21 14:15 03/12/21 14:40 Metoprolol Tartrate 5 Mg/5 Ml Inj IV 5 mg Q6HR PRN Administration Tachyarrhythmias Multi-Ingred Cream/Lotion/Oil/Oint 1 applic 03/02/21 15:42 Mineral Oil/Petrolatum, White Ophth Oint 3.5 Gm OU Q4HR PRN Dry Eye(s) Multivitamins/Minerals 1 each 03/03/21 22:00 03/14/21 10:12 Calcium Carb/Vit D3/Minerals 600 Mg/800 Units Tab PO 1 each BID KYLE Administration Senna/Docusate Sodium 1 tab 03/02/21 22:00 03/14/21 10:12 Sennosides/Docusate Sodium 8.6/50 Mg Tab FEEDTUBE 1 tab BID KYLE Administration Simple Syrup 15 ml 03/03/21 10:53 Simple Syrup 15 Ml FEEDTUBE PRN PRN Hypoglycemia Simple Syrup 30 ml 03/03/21 10:53 Simple Syrup 15 Ml FEEDTUBE PRN PRN Hypoglycemia Sodium Bicarbonate 325 mg 03/03/21 10:53 Sodium Bicarbonate 325 Mg Tab FEEDTUBE PRN PRN For Clogged Feeding Tube Sodium Chloride 10 ml 03/02/21 10:00 03/14/21 10:13 Sodium Chloride 0.9% 10 Ml Flush Syringe IV 10 ml BID KYLE Administration Sodium Chloride 10 ml 03/02/21 00:18 Sodium Chloride 0.9% 10 Ml Flush Syringe IV PRN PRN LINE FLUSH Zinc Sulfate 220 mg 03/06/21 16:00 03/14/21 10:11 Zinc Sulfate 220 Mg Cap PO 220 mg BID KYLE Administration Ziprasidone 20 mg 03/14/21 11:18 Ziprasidone Mesylate 20 Mg Vial IM Q6H PRN Agitation Zolpidem Tartrate 5 mg 03/13/21 17:55 03/13/21 21:16 Zolpidem 5 Mg Tab PO 5 mg QHS PRN Administration Sleep Nutrition/Malnutrition Assess - Dietary Evaluation Nutrition/Malnutrition Findings: Nutrition Notes Start: 03/02/21 10:10 Freq: Status: Active Protocol: Document 03/13/21 17:18 JAYLAN (Rec: 03/13/21 17:22 JAYLAN [id number]) Nutrition Notes Initial or Follow up Reassessment Other Pertinent Diagnosis pneu, AMS, COVID(+) Current Diet Cardiac Labs/Tests POC Glu range: 228-287 Pertinent Medications reviewed Height 5 ft 10 in Weight 131 kg [place] Body Weight (kg) 75.45 BMI 41.4 Subjective/Other Information Diet advanced last pm; no intakes recorded yet. Pt refused BiPap this am; on high -flow oxygen. Unable to speak with pt today. Burn Absent Trauma Absent #1 Nutrition Diagnosis Inadequate oral intake Diagnosis Progress(for reassessment Continues documentation) Is patient on ventilator? No Is Patient Ambulatory and/or Out of Bed No REE-([facility]-confined to bed) 2614.728 Kcal/Kg value to use for calculation 16 Approximate Energy Requirements Using 2096 kcal/Kg Calculation Used for Recommendations Kcal/kg Additional Notes Pro needs up to 2.5g/klg IBW: up to 189g/day Fluid needs 1ml/kcal Nutrition Intervention Change Diet Order: Add Consistent CHO modifier to current diet order Goal #1 PO tolerance Goal #2 PO intake to meet at least 75% energy and pro needs Follow-Up By: 03/15/21 Additional Comments F/U: intakes
--- NOTE | 2021-03-14 15:13 | Progress Note ---
Assessment and Plan Cultures: SARS CoV2 PCR: Positive MRSA nasal PCR: Positive 03/01/2021 blood culture: No growth 03/01/2021 urine culture: No growth 03/02/2021 tracheal aspirate: [place] albicans 03/06/2021 blood culture: no growth 03/06/2021 urine culture: No growth A/P: 51-year-old male with COPD, chronic respiratory failure, CHF, diabetes, DVT/PE, morbid obesity on anticoagulation was admitted to the hospital on 03/01/2021 with altered mental status and shortness of breath: #Bilateral pneumonia: secondary to COVID-19. Completed empiric antibiotics. #Acute hypoxic respiratory failure: Now extubated, on high flow nasal cannula #Morbid obesity #Acute on chronic CHF #Transaminitis: Likely from COVID-19. Elevated LFTs with elevated alkaline phosphatase: RUQ ultrasound did not reveal any evidence of cholelithiasis, cholecystitis or choledocholithiasis. #Acute RLE DVT: On anticoagulation Recs: -IV/PO Dexamethasone 10 mg daily x 10 days, higher dose due to morbid obesity. Ending 03/15/2021 -Completed Remdesivir -Completed empiric antibiotics -on anticoagulation Kamar Schrader MD [facility] ([facility] O: [phone] F: [phone] Subjective Date of service: 03/14/21 Principal diagnosis: Ac hypoxemic resp failure; NSTEMI; ALPHONSO; Sepsis; PNA; CHF; DM II; AMS Interval history: Afebrile, normal white count. Remains on HFNC Objective - Exam Narrative Exam: Physical exam deferred to reduce risk of transmission of COVID-19. Please refer to primary team's note. - Constitutional Vitals: Vital Signs Temp Pulse Resp BP Pulse Ox 98.7 F 103 H 28 H 167/75 95 03/14/21 04:00 03/14/21 12:01 03/14/21 12:01 03/14/21 12:01 03/14/21 12:01 Temperature -Last 24 Hours Temperature 98.7 F Temperature 99.2 F - Labs CBC & Chem 7: 03/14/21 03:40 03/14/21 03:40 Labs: Abnormal lab results 03/13/21 03/13/21 03/14/21 Range/Units 17:03 23:31 03:40 RBC (3.65-5.03) M/mm3 Hgb (11.8-15.2) gm/dl Hct (35.5-45.6) % MCV (84-94) fl MCH (28-32) pg RDW (13.2-15.2) % D-Dimer 475.91 H (0-234) ng/mlDDU Potassium (3.6-5.0) mmol/L Carbon Dioxide (22-30) mmol/L BUN (9-20) mg/dL Creatinine (0.8-1.3) mg/dL Glucose (75-100) mg/dL POC Glucose 228 H 275 H (70-105) mg/dL Ferritin (30.0-300.0) ng/mL Total Bilirubin (0.1-1.2) mg/dL AST (5-40) units/L ALT (7-56) units/L Alkaline Phosphatase (35-129) units/L Lactate Dehydrogenase (91-180) units/L C-Reactive Protein (0.00-1.30) mg/dL Total Protein (6.3-8.2) g/dL Albumin (3.9-5) g/dL 03/14/21 03/14/21 03/14/21 Range/Units 03:40 03:40 03:40 RBC 2.25 L (3.65-5.03) M/mm3 Hgb 7.4 L (11.8-15.2) gm/dl Hct 22.2 L (35.5-45.6) % MCV 99 H (84-94) fl MCH 33 H (28-32) pg RDW 18.5 H (13.2-15.2) % D-Dimer (0-234) ng/mlDDU Potassium 3.3 L (3.6-5.0) mmol/L Carbon Dioxide 37 H D (22-30) mmol/L BUN 24 H (9-20) mg/dL Creatinine 0.6 L (0.8-1.3) mg/dL Glucose 180 H (75-100) mg/dL POC Glucose (70-105) mg/dL Ferritin 3103.0 H (30.0-300.0) ng/mL Total Bilirubin 1.60 H (0.1-1.2) mg/dL AST 283 H (5-40) units/L ALT 188 H (7-56) units/L Alkaline Phosphatase 619 H (35-129) units/L Lactate Dehydrogenase 588 H (91-180) units/L C-Reactive Protein 4.00 H (0.00-1.30) mg/dL Total Protein 4.8 L (6.3-8.2) g/dL Albumin 2.2 L (3.9-5) g/dL
--- NOTE | 2021-03-14 15:56 | Progress Note ---
Assessment and Plan Acute hypoxemic respiratory failure NSTEMI Acute kidney injury Severe sepsis Bilateral pneumonia H/O congestive heart failure Diabetes type 2 Acute encephalopathy Elevated serum transaminases Anemia that is microcytic Leukocytosis Metabolic acidosis Lactic acidosis - potassium replaced - Magnesium replaced - repeat COVID-19 test ordered - repeat CXR in am - continue care as below otherwise; - Psychiatry evaluation ongoing - cardiology evaluation ongoing - continue encouraging scheduled BIPAP qhs for alveolar recruitment / KAM (he refused last night) - continue daytime Vapotherm HFNC - s/p anti-infective's per ID recommendations (Vancomycin, Levaquin) - continue full dose Lovenox re: VTE - continue to wean supplemental oxygen for target O2 sat's > 92% acutely - aspiration precautions - continue bronchodilators with pulmonary hygiene per RT - wean per pulmonary driven protocols otherwise - continue accuchecks with glycemic control per SSI (While critically ill target blood glucose of 140-180 mg/dL; avoid hypoglycemia) - avoid nephrotoxins, renally dose all medications - continue to avoid benzodiazepine's, reduce the possibility of delirium - prn analgesia per pain score - Maintenance of sleep-wake cycle, avoid delirium - G.I. & VTE prophylaxis - PT/OT/ROM exercises - continue mobility protocols for pressure ulcer prophylaxis - Monitor hemodynamics closely - continue other care per attending / other consultants - discharge planning ongoing concurrently COVID SPECIFIC INTERVENTIONS - continue contact and airborne isolation - Remdesivir as per ID/Pulmonary developed protocols (received) - started systemic steroids for severe COVID-19 infection empirically - follow repeat COVID tests results - started zinc and vitamin C supplementation [id number] test positive - get & monitor inflammatory markers per facility protocol - ferritin, Ddimer, CRP (if test +ve) - therapeutic anticoagulation per system Protocol based on d-dimer and clinical considerations (On full dose Lovenox for VTE) .... Re-evaluate in am & prn CONDITION: CRITICAL PROGNOSIS: GUARDED CODE STATUS: FULL CODE The high probability of a clinically significant, sudden or life-threatening deterioration of the [respiratory, cardiovascular & neurologic] system(s) required my full and direct attention, intervention and personal management. The aggregate critical care time was [34] minutes without overlap. Time includes spent on; [x] Data Review and interpretation [x] Patient assessment and monitoring of vital signs [x] Documentation [x] Medication orders and management Subjective Date of service: 08/05/21 Principal diagnosis: Ac hypoxemic resp failure; NSTEMI; ALPHONSO; Sepsis; PNA; CHF; DM II; AMS Interval history: Patient is seen today for: Acute hypoxemic respiratory failure; NSTEMI; ALPHONSO; Severe sepsis; Pneumonia; CHF; DM II; Acute encephalopathy Seen and examined at bedside; 24hour events reviewed; nursing and respiratory care staff consulted; no adverse overnight events reported to me; resting peacefully in bed; still with some delirium; refusing BIPAP; on hfnc VIA VAPOTHERM AND fIo2 DOWN TO 85%; HE REFUSED abg'S; HE DENIES CHEST PAIN; nO n/v Objective Vital Signs - 12hr 03/14/21 03/14/21 03/14/21 04:00 04:01 05:00 Temperature 98.7 F Pulse Rate 89 83 Pulse Rate [ From Monitor] Respiratory 22 22 21 Rate Blood Pressure 114/60 131/76 O2 Sat by Pulse 99 95 96 Oximetry 03/14/21 03/14/21 03/14/21 06:00 07:01 08:00 Temperature Pulse Rate 88 86 104 H Pulse Rate [ 113 H From Monitor] Respiratory 22 21 21 Rate Blood Pressure 122/79 132/78 147/84 O2 Sat by Pulse 91 98 93 Oximetry 03/14/21 03/14/21 03/14/21 09:00 09:02 10:01 Temperature Pulse Rate 106 H 116 H Pulse Rate [ From Monitor] Respiratory 20 31 H Rate Blood Pressure 114/75 166/116 O2 Sat by Pulse 91 85 85 Oximetry 03/14/21 03/14/21 03/14/21 10:10 10:11 11:01 Temperature Pulse Rate 107 H Pulse Rate [ From Monitor] Respiratory 31 H Rate Blood Pressure 166/116 166/116 154/95 O2 Sat by Pulse 96 Oximetry 03/14/21 03/14/21 03/14/21 11:10 12:00 12:01 Temperature Pulse Rate 98 H 103 H Pulse Rate [ 98 H From Monitor] Respiratory 29 H 28 H Rate Blood Pressure 167/75 O2 Sat by Pulse 95 89 95 Oximetry 03/14/21 15:33 Temperature Pulse Rate Pulse Rate [ From Monitor] Respiratory Rate Blood Pressure O2 Sat by Pulse 95 Oximetry Constitutional: no acute distress, other (middle aged obese male with mildly increased respiratory effort at rest) Eyes: non-icteric ENT: oropharynx moist, other (extubated) Neck: supple, no lymphadenopathy, no JVD, other (large circumference) Effort: mildly labored Ascultation: Bilateral: diminished breath sounds, rhonchi (posterior bases) Percussion: Bilateral: not dull Cardiovascular: regular rate and rhythm Gastrointestinal: normoactive bowel sounds, soft, non-tender, non-distended (protuberant) Integumentary: normal Extremities: no cyanosis, pulses normal, no ischemia or petechiae, edema (trace) Neurologic: non-focal exam (grossly), pupils equal and round, CN II-XII normal, motor strength normal and Psychiatric: other (delirious) CBC and BMP: 03/14/21 03:40 03/14/21 03:40 ABG, PT/INR, D-dimer: ABG ABG pH 7.487 (7.320-7.450) H 03/10/21 12:33 POC ABG pCO2 40.4 mmHg (32.0-48.0) 03/10/21 12:33 POC ABG pO2 62.1 mmHg (83-108) L 03/10/21 12:33 POC ABG HCO3 29.9 03/10/21 12:33 ABG O2 Saturation 90.2 (0-100) 03/10/21 12:33 PT/INR, D-dimer PT 15.6 Sec. (12.2-14.9) H 03/04/21 10:17 INR 1.18 (0.87-1.13) H 03/04/21 10:17 D-Dimer 475.91 ng/mlDDU (0-234) H 03/14/21 03:40 Abnormal lab findings: Abnormal Labs 03/01/21 03/01/21 03/01/21 19:15 19:21 19:21 WBC 12.7 H RBC 2.77 L Hgb 9.1 L Hct 27.7 L MCV 100 H MCH 33 H RDW 18.0 H Seg Neutrophils % Monocytes % (Manual) 17.0 H Seg Neutrophils # Monocytes # (Manual) 2.2 H PT INR D-Dimer Heparin Anti-Xa Level ABG pH POC ABG pCO2 POC ABG pO2 64.9 L ABG Hemoglobin 9.3 L ABG Oxyhemoglobin 93.0 L ABG Sodium 133.8 L ABG Potassium ABG Chloride 97.0 L ABG Glucose 191 H Carboxyhemoglobin Sodium Potassium Chloride Carbon Dioxide BUN Creatinine Glucose POC Glucose Lactic Acid Calcium Phosphorus Magnesium Ferritin Total Bilirubin Direct Bilirubin AST ALT Alkaline Phosphatase Ammonia Lactate Dehydrogenase Troponin T 0.493 H* C-Reactive Protein Total Protein Albumin Triglycerides 400 H Cholesterol 232 H HDL Cholesterol 22 L Lipase Arterial Blood Glucose 191 H Arterial Blood Ionized Calcium 4.4 L Urine WBC (Auto) Salicylates Acetaminophen Coronavirus (PCR) 03/01/21 03/01/21 03/01/21 19:21 19:21 19:21 WBC RBC Hgb Hct MCV MCH RDW Seg Neutrophils % Monocytes % (Manual) Seg Neutrophils # Monocytes # (Manual) PT 16.6 H INR 1.28 H D-Dimer Heparin Anti-Xa Level ABG pH POC ABG pCO2 POC ABG pO2 ABG Hemoglobin ABG Oxyhemoglobin ABG Sodium ABG Potassium ABG Chloride ABG Glucose Carboxyhemoglobin Sodium 132 L Potassium Chloride 92.2 L Carbon Dioxide BUN 43 H Creatinine 2.4 H Glucose 190 H POC Glucose Lactic Acid 2.90 H* Calcium Phosphorus Magnesium Ferritin Total Bilirubin 1.60 H Direct Bilirubin 1.2 H AST 275 H ALT 156 H Alkaline Phosphatase 282 H Ammonia Lactate Dehydrogenase Troponin T C-Reactive Protein Total Protein 5.8 L Albumin 2.6 L Triglycerides Cholesterol HDL Cholesterol Lipase 120 H Arterial Blood Glucose Arterial Blood Ionized Calcium Urine WBC (Auto) Salicylates Acetaminophen Coronavirus (PCR) 03/01/21 03/01/21 03/01/21 19:21 19:21 19:21 WBC RBC Hgb Hct MCV MCH RDW Seg Neutrophils % Monocytes % (Manual) Seg Neutrophils # Monocytes # (Manual) PT INR D-Dimer Heparin Anti-Xa Level ABG pH POC ABG pCO2 POC ABG pO2 ABG Hemoglobin ABG Oxyhemoglobin ABG Sodium ABG Potassium ABG Chloride ABG Glucose Carboxyhemoglobin Sodium Potassium Chloride Carbon Dioxide BUN Creatinine Glucose POC Glucose Lactic Acid Calcium Phosphorus Magnesium Ferritin Total Bilirubin Direct Bilirubin AST ALT Alkaline Phosphatase Ammonia 71.0 H Lactate Dehydrogenase Troponin T C-Reactive Protein Total Protein Albumin Triglycerides Cholesterol HDL Cholesterol Lipase Arterial Blood Glucose Arterial Blood Ionized Calcium Urine WBC (Auto) Salicylates < 0.3 L Acetaminophen 5.0 L Coronavirus (PCR) 03/01/21 03/01/21 03/02/21 20:55 20:55 00:01 WBC RBC Hgb Hct MCV MCH RDW Seg Neutrophils % Monocytes % (Manual) Seg Neutrophils # Monocytes # (Manual) PT INR D-Dimer Heparin Anti-Xa Level ABG pH 7.234 L POC ABG pCO2 POC ABG pO2 240.5 H ABG Hemoglobin 9.3 L ABG Oxyhemoglobin 99.1 H ABG Sodium 135.3 L ABG Potassium ABG Chloride ABG Glucose 286 H Carboxyhemoglobin 0.3 L Sodium Potassium Chloride Carbon Dioxide BUN Creatinine Glucose POC Glucose Lactic Acid 4.30 H* Calcium Phosphorus Magnesium Ferritin Total Bilirubin Direct Bilirubin AST ALT Alkaline Phosphatase Ammonia Lactate Dehydrogenase Troponin T 0.484 H* C-Reactive Protein Total Protein Albumin Triglycerides Cholesterol HDL Cholesterol Lipase Arterial Blood Glucose 286 H Arterial Blood Ionized Calcium Urine WBC (Auto) Salicylates Acetaminophen Coronavirus (PCR) 03/02/21 03/02/21 03/02/21 03:42 05:23 06:35 WBC RBC Hgb Hct MCV MCH RDW Seg Neutrophils % Monocytes % (Manual) Seg Neutrophils # Monocytes # (Manual) PT INR D-Dimer Heparin Anti-Xa Level ABG pH 7.225 L POC ABG pCO2 POC ABG pO2 181.8 H ABG Hemoglobin 9.4 L ABG Oxyhemoglobin 98.6 H ABG Sodium 132.1 L ABG Potassium 5.0 H ABG Chloride ABG Glucose 454 H Carboxyhemoglobin 0.3 L Sodium Potassium Chloride Carbon Dioxide BUN Creatinine Glucose POC Glucose 410 H Lactic Acid 7.50 H* Calcium Phosphorus Magnesium Ferritin Total Bilirubin Direct Bilirubin AST ALT Alkaline Phosphatase Ammonia Lactate Dehydrogenase Troponin T C-Reactive Protein Total Protein Albumin Triglycerides Cholesterol HDL Cholesterol Lipase Arterial Blood Glucose 454 H Arterial Blood Ionized Calcium 4.2 L Urine WBC (Auto) Salicylates Acetaminophen Coronavirus (PCR) 03/02/21 03/02/21 03/02/21 10:48 10:48 10:48 WBC RBC Hgb Hct MCV MCH RDW Seg Neutrophils % Monocytes % (Manual) Seg Neutrophils # Monocytes # (Manual) PT INR D-Dimer Heparin Anti-Xa Level ABG pH POC ABG pCO2 POC ABG pO2 ABG Hemoglobin ABG Oxyhemoglobin ABG Sodium ABG Potassium ABG Chloride ABG Glucose Carboxyhemoglobin Sodium 132 L Potassium Chloride 93.3 L Carbon Dioxide 20 L BUN 46 H Creatinine 1.9 H Glucose 503 H* POC Glucose Lactic Acid 3.40 H* Calcium 7.9 L Phosphorus 5.80 H Magnesium Ferritin Total Bilirubin Direct Bilirubin AST ALT Alkaline Phosphatase Ammonia Lactate Dehydrogenase Troponin T C-Reactive Protein Total Protein Albumin Triglycerides Cholesterol HDL Cholesterol Lipase Arterial Blood Glucose Arterial Blood Ionized Calcium Urine WBC (Auto) Salicylates Acetaminophen Coronavirus (PCR) 03/02/21 03/02/21 03/02/21 11:23 11:38 15:33 WBC RBC Hgb Hct MCV MCH RDW Seg Neutrophils % Monocytes % (Manual) Seg Neutrophils # Monocytes # (Manual) PT INR D-Dimer Heparin Anti-Xa Level ABG pH 7.318 L POC ABG pCO2 POC ABG pO2 ABG Hemoglobin 9.2 L ABG Oxyhemoglobin ABG Sodium 133.2 L ABG Potassium ABG Chloride ABG Glucose 504 H Carboxyhemoglobin 0.3 L Sodium Potassium Chloride Carbon Dioxide BUN Creatinine Glucose POC Glucose 468 H 445 H Lactic Acid Calcium Phosphorus Magnesium Ferritin Total Bilirubin Direct Bilirubin AST ALT Alkaline Phosphatase Ammonia Lactate Dehydrogenase Troponin T C-Reactive Protein Total Protein Albumin Triglycerides Cholesterol HDL Cholesterol Lipase Arterial Blood Glucose 504 H Arterial Blood Ionized Calcium 4.2 L Urine WBC (Auto) Salicylates Acetaminophen Coronavirus (PCR) 03/02/21 03/02/21 03/02/21 16:28 16:28 16:28 WBC RBC Hgb 8.8 L Hct 26.0 L MCV MCH RDW Seg Neutrophils % Monocytes % (Manual) Seg Neutrophils # Monocytes # (Manual) PT 15.2 H INR 1.14 H D-Dimer Heparin Anti-Xa Level ABG pH POC ABG pCO2 POC ABG pO2 ABG Hemoglobin ABG Oxyhemoglobin ABG Sodium ABG Potassium ABG Chloride ABG Glucose Carboxyhemoglobin Sodium 135 L Potassium Chloride 93.8 L Carbon Dioxide BUN 48 H Creatinine 1.8 H Glucose 454 H POC Glucose Lactic Acid Calcium 7.6 L Phosphorus Magnesium Ferritin Total Bilirubin Direct Bilirubin AST ALT Alkaline Phosphatase Ammonia Lactate Dehydrogenase Troponin T C-Reactive Protein Total Protein Albumin Triglycerides Cholesterol HDL Cholesterol Lipase Arterial Blood Glucose Arterial Blood Ionized Calcium Urine WBC (Auto) Salicylates Acetaminophen Coronavirus (PCR) 03/02/21 03/02/21 03/02/21 17:39 18:52 20:09 WBC RBC Hgb Hct MCV MCH RDW Seg Neutrophils % Monocytes % (Manual) Seg Neutrophils # Monocytes # (Manual) PT INR D-Dimer Heparin Anti-Xa Level ABG pH POC ABG pCO2 POC ABG pO2 ABG Hemoglobin ABG Oxyhemoglobin ABG Sodium ABG Potassium ABG Chloride ABG Glucose Carboxyhemoglobin Sodium Potassium Chloride Carbon Dioxide BUN Creatinine Glucose POC Glucose 404 H 357 H 347 H Lactic Acid Calcium Phosphorus Magnesium Ferritin Total Bilirubin Direct Bilirubin AST ALT Alkaline Phosphatase Ammonia Lactate Dehydrogenase Troponin T C-Reactive Protein Total Protein Albumin Triglycerides Cholesterol HDL Cholesterol Lipase Arterial Blood Glucose Arterial Blood Ionized Calcium Urine WBC (Auto) Salicylates Acetaminophen Coronavirus (PCR) 03/02/21 03/02/21 03/02/21 21:03 22:00 22:55 WBC RBC Hgb Hct MCV MCH RDW Seg Neutrophils % Monocytes % (Manual) Seg Neutrophils # Monocytes # (Manual) PT INR D-Dimer Heparin Anti-Xa Level ABG pH POC ABG pCO2 POC ABG pO2 ABG Hemoglobin ABG Oxyhemoglobin ABG Sodium ABG Potassium ABG Chloride ABG Glucose Carboxyhemoglobin Sodium Potassium Chloride Carbon Dioxide BUN Creatinine Glucose POC Glucose 307 H 270 H 237 H Lactic Acid Calcium Phosphorus Magnesium Ferritin Total Bilirubin Direct Bilirubin AST ALT Alkaline Phosphatase Ammonia Lactate Dehydrogenase Troponin T C-Reactive Protein Total Protein Albumin Triglycerides Cholesterol HDL Cholesterol Lipase Arterial Blood Glucose Arterial Blood Ionized Calcium Urine WBC (Auto) Salicylates Acetaminophen Coronavirus (PCR) 03/03/21 03/03/21 03/03/21 00:02 00:57 02:01 WBC RBC Hgb Hct MCV MCH RDW Seg Neutrophils % Monocytes % (Manual) Seg Neutrophils # Monocytes # (Manual) PT INR D-Dimer Heparin Anti-Xa Level ABG pH POC ABG pCO2 POC ABG pO2 ABG Hemoglobin ABG Oxyhemoglobin ABG Sodium ABG Potassium ABG Chloride ABG Glucose Carboxyhemoglobin Sodium Potassium Chloride Carbon Dioxide BUN Creatinine Glucose POC Glucose 252 H 214 H 261 H Lactic Acid Calcium Phosphorus Magnesium Ferritin Total Bilirubin Direct Bilirubin AST ALT Alkaline Phosphatase Ammonia Lactate Dehydrogenase Troponin T C-Reactive Protein Total Protein Albumin Triglycerides Cholesterol HDL Cholesterol Lipase Arterial Blood Glucose Arterial Blood Ionized Calcium Urine WBC (Auto) Salicylates Acetaminophen Coronavirus (PCR) 03/03/21 03/03/21 03/03/21 03:07 03:10 03:50 WBC 13.7 H RBC 2.69 L Hgb 8.7 L Hct 26.9 L MCV 100 H MCH RDW 18.5 H Seg Neutrophils % 79.0 H Monocytes % (Manual) Seg Neutrophils # 10.8 H Monocytes # (Manual) PT INR D-Dimer Heparin Anti-Xa Level ABG pH POC ABG pCO2 50.9 H POC ABG pO2 81.9 L ABG Hemoglobin 8.7 L ABG Oxyhemoglobin ABG Sodium 134.2 L ABG Potassium ABG Chloride 96.0 L ABG Glucose 279 H Carboxyhemoglobin 0.4 L Sodium Potassium Chloride Carbon Dioxide BUN Creatinine Glucose POC Glucose 276 H Lactic Acid Calcium Phosphorus Magnesium Ferritin Total Bilirubin Direct Bilirubin AST ALT Alkaline Phosphatase Ammonia Lactate Dehydrogenase Troponin T C-Reactive Protein Total Protein Albumin Triglycerides Cholesterol HDL Cholesterol Lipase Arterial Blood Glucose 279 H Arterial Blood Ionized Calcium 3.9 L Urine WBC (Auto) Salicylates Acetaminophen Coronavirus (PCR) 03/03/21 03/03/21 03/03/21 03:50 04:06 04:32 WBC RBC Hgb Hct MCV MCH RDW Seg Neutrophils % Monocytes % (Manual) Seg Neutrophils # Monocytes # (Manual) PT INR D-Dimer Heparin Anti-Xa Level ABG pH POC ABG pCO2 POC ABG pO2 ABG Hemoglobin ABG Oxyhemoglobin ABG Sodium ABG Potassium ABG Chloride ABG Glucose Carboxyhemoglobin Sodium Potassium Chloride 94.2 L Carbon Dioxide BUN 45 H Creatinine 1.9 H Glucose 261 H POC Glucose 256 H Lactic Acid Calcium 7.3 L Phosphorus Magnesium Ferritin Total Bilirubin Direct Bilirubin 0.9 H AST 208 H ALT 148 H Alkaline Phosphatase 251 H Ammonia Lactate Dehydrogenase Troponin T C-Reactive Protein Total Protein 5.5 L Albumin 2.4 L Triglycerides Cholesterol HDL Cholesterol Lipase Arterial Blood Glucose Arterial Blood Ionized Calcium Urine WBC (Auto) Salicylates Acetaminophen Coronavirus (PCR) 03/03/21 03/03/21 03/03/21 05:23 06:06 07:07 WBC RBC Hgb Hct MCV MCH RDW Seg Neutrophils % Monocytes % (Manual) Seg Neutrophils # Monocytes # (Manual) PT INR D-Dimer Heparin Anti-Xa Level ABG pH POC ABG pCO2 POC ABG pO2 ABG Hemoglobin ABG Oxyhemoglobin ABG Sodium ABG Potassium ABG Chloride ABG Glucose Carboxyhemoglobin Sodium Potassium Chloride Carbon Dioxide BUN Creatinine Glucose POC Glucose 214 H 249 H 237 H Lactic Acid Calcium Phosphorus Magnesium Ferritin Total Bilirubin Direct Bilirubin AST ALT Alkaline Phosphatase Ammonia Lactate Dehydrogenase Troponin T C-Reactive Protein Total Protein Albumin Triglycerides Cholesterol HDL Cholesterol Lipase Arterial Blood Glucose Arterial Blood Ionized Calcium Urine WBC (Auto) Salicylates Acetaminophen Coronavirus (PCR) 03/03/21 03/03/21 03/03/21 07:58 08:58 09:52 WBC RBC Hgb Hct MCV MCH RDW Seg Neutrophils % Monocytes % (Manual) Seg Neutrophils # Monocytes # (Manual) PT INR D-Dimer Heparin Anti-Xa Level ABG pH POC ABG pCO2 POC ABG pO2 ABG Hemoglobin ABG Oxyhemoglobin ABG Sodium ABG Potassium ABG Chloride ABG Glucose Carboxyhemoglobin Sodium Potassium Chloride Carbon Dioxide BUN Creatinine Glucose POC Glucose 227 H 215 H 207 H Lactic Acid Calcium Phosphorus Magnesium Ferritin Total Bilirubin Direct Bilirubin AST ALT Alkaline Phosphatase Ammonia Lactate Dehydrogenase Troponin T C-Reactive Protein Total Protein Albumin Triglycerides Cholesterol HDL Cholesterol Lipase Arterial Blood Glucose Arterial Blood Ionized Calcium Urine WBC (Auto) Salicylates Acetaminophen Coronavirus (PCR) 03/03/21 03/03/21 03/03/21 10:55 11:44 12:53 WBC RBC Hgb Hct MCV MCH RDW Seg Neutrophils % Monocytes % (Manual) Seg Neutrophils # Monocytes # (Manual) PT INR D-Dimer Heparin Anti-Xa Level ABG pH POC ABG pCO2 POC ABG pO2 ABG Hemoglobin ABG Oxyhemoglobin ABG Sodium ABG Potassium ABG Chloride ABG Glucose Carboxyhemoglobin Sodium Potassium Chloride Carbon Dioxide BUN Creatinine Glucose POC Glucose 198 H 210 H 203 H Lactic Acid Calcium Phosphorus Magnesium Ferritin Total Bilirubin Direct Bilirubin AST ALT Alkaline Phosphatase Ammonia Lactate Dehydrogenase Troponin T C-Reactive Protein Total Protein Albumin Triglycerides Cholesterol HDL Cholesterol Lipase Arterial Blood Glucose Arterial Blood Ionized Calcium Urine WBC (Auto) Salicylates Acetaminophen Coronavirus (PCR) 03/03/21 03/03/21 03/03/21 13:53 14:58 15:23 WBC RBC Hgb Hct MCV MCH RDW Seg Neutrophils % Monocytes % (Manual) Seg Neutrophils # Monocytes # (Manual) PT INR D-Dimer Heparin Anti-Xa Level ABG pH POC ABG pCO2 POC ABG pO2 ABG Hemoglobin ABG Oxyhemoglobin ABG Sodium ABG Potassium ABG Chloride ABG Glucose Carboxyhemoglobin Sodium Potassium Chloride Carbon Dioxide BUN Creatinine Glucose POC Glucose 210 H 187 H Lactic Acid 3.10 H* Calcium Phosphorus Magnesium Ferritin Total Bilirubin Direct Bilirubin AST ALT Alkaline Phosphatase Ammonia Lactate Dehydrogenase Troponin T C-Reactive Protein Total Protein Albumin Triglycerides Cholesterol HDL Cholesterol Lipase Arterial Blood Glucose Arterial Blood Ionized Calcium Urine WBC (Auto) Salicylates Acetaminophen Coronavirus (PCR) 03/03/21 03/03/21 03/03/21 15:51 16:25 16:53 WBC RBC Hgb Hct MCV MCH RDW Seg Neutrophils % Monocytes % (Manual) Seg Neutrophils # Monocytes # (Manual) PT INR D-Dimer Heparin Anti-Xa Level ABG pH POC ABG pCO2 POC ABG pO2 ABG Hemoglobin ABG Oxyhemoglobin ABG Sodium ABG Potassium ABG Chloride ABG Glucose Carboxyhemoglobin Sodium Potassium Chloride 91.0 L Carbon Dioxide 34 H BUN 47 H Creatinine 1.7 H Glucose 190 H POC Glucose 182 H 179 H Lactic Acid Calcium 7.6 L Phosphorus Magnesium Ferritin Total Bilirubin Direct Bilirubin AST ALT Alkaline Phosphatase Ammonia Lactate Dehydrogenase Troponin T C-Reactive Protein Total Protein Albumin Triglycerides Cholesterol HDL Cholesterol Lipase Arterial Blood Glucose Arterial Blood Ionized Calcium Urine WBC (Auto) Salicylates Acetaminophen Coronavirus (PCR) 03/03/21 03/03/21 03/03/21 17:55 19:37 20:57 WBC RBC Hgb Hct MCV MCH RDW Seg Neutrophils % Monocytes % (Manual) Seg Neutrophils # Monocytes # (Manual) PT INR D-Dimer Heparin Anti-Xa Level ABG pH POC ABG pCO2 POC ABG pO2 ABG Hemoglobin ABG Oxyhemoglobin ABG Sodium ABG Potassium ABG Chloride ABG Glucose Carboxyhemoglobin Sodium Potassium Chloride Carbon Dioxide BUN Creatinine Glucose POC Glucose 185 H 174 H 175 H Lactic Acid Calcium Phosphorus Magnesium Ferritin Total Bilirubin Direct Bilirubin AST ALT Alkaline Phosphatase Ammonia Lactate Dehydrogenase Troponin T C-Reactive Protein Total Protein Albumin Triglycerides Cholesterol HDL Cholesterol Lipase Arterial Blood Glucose Arterial Blood Ionized Calcium Urine WBC (Auto) Salicylates Acetaminophen Coronavirus (PCR) 03/03/21 03/03/21 03/03/21 22:02 22:56 23:10 WBC RBC Hgb Hct MCV MCH RDW Seg Neutrophils % Monocytes % (Manual) Seg Neutrophils # Monocytes # (Manual) PT INR D-Dimer Heparin Anti-Xa Level 0.75 H ABG pH POC ABG pCO2 POC ABG pO2 ABG Hemoglobin ABG Oxyhemoglobin ABG Sodium ABG Potassium ABG Chloride ABG Glucose Carboxyhemoglobin Sodium Potassium Chloride Carbon Dioxide BUN Creatinine Glucose POC Glucose 170 H 160 H Lactic Acid Calcium Phosphorus Magnesium Ferritin Total Bilirubin Direct Bilirubin AST ALT Alkaline Phosphatase Ammonia Lactate Dehydrogenase Troponin T C-Reactive Protein Total Protein Albumin Triglycerides Cholesterol HDL Cholesterol Lipase Arterial Blood Glucose Arterial Blood Ionized Calcium Urine WBC (Auto) Salicylates Acetaminophen Coronavirus (PCR) 03/03/21 03/04/21 03/04/21 23:42 00:52 01:55 WBC RBC Hgb Hct MCV MCH RDW Seg Neutrophils % Monocytes % (Manual) Seg Neutrophils # Monocytes # (Manual) PT INR D-Dimer Heparin Anti-Xa Level ABG pH POC ABG pCO2 POC ABG pO2 ABG Hemoglobin ABG Oxyhemoglobin ABG Sodium ABG Potassium ABG Chloride ABG Glucose Carboxyhemoglobin Sodium Potassium Chloride Carbon Dioxide BUN Creatinine Glucose POC Glucose 161 H 167 H 119 H Lactic Acid Calcium Phosphorus Magnesium Ferritin Total Bilirubin Direct Bilirubin AST ALT Alkaline Phosphatase Ammonia Lactate Dehydrogenase Troponin T C-Reactive Protein Total Protein Albumin Triglycerides Cholesterol HDL Cholesterol Lipase Arterial Blood Glucose Arterial Blood Ionized Calcium Urine WBC (Auto) Salicylates Acetaminophen Coronavirus (PCR) 03/04/21 03/04/21 03/04/21 02:58 03:47 04:03 WBC RBC Hgb Hct MCV MCH RDW Seg Neutrophils % Monocytes % (Manual) Seg Neutrophils # Monocytes # (Manual) PT INR D-Dimer Heparin Anti-Xa Level ABG pH POC ABG pCO2 57.3 H POC ABG pO2 63.7 L ABG Hemoglobin 8.4 L ABG Oxyhemoglobin 88.6 L ABG Sodium 132.5 L ABG Potassium 3.2 L ABG Chloride 94.0 L ABG Glucose 129 H Carboxyhemoglobin Sodium Potassium Chloride Carbon Dioxide BUN Creatinine Glucose POC Glucose 111 H 122 H Lactic Acid Calcium Phosphorus Magnesium Ferritin Total Bilirubin Direct Bilirubin AST ALT Alkaline Phosphatase Ammonia Lactate Dehydrogenase Troponin T C-Reactive Protein Total Protein Albumin Triglycerides Cholesterol HDL Cholesterol Lipase Arterial Blood Glucose 129 H Arterial Blood Ionized Calcium 3.8 L Urine WBC (Auto) Salicylates Acetaminophen Coronavirus (PCR) 03/04/21 03/04/21 03/04/21 05:15 05:26 05:26 WBC RBC Hgb 7.9 L Hct 23.7 L MCV MCH RDW Seg Neutrophils % Monocytes % (Manual) Seg Neutrophils # Monocytes # (Manual) PT INR D-Dimer Heparin Anti-Xa Level ABG pH POC ABG pCO2 POC ABG pO2 ABG Hemoglobin ABG Oxyhemoglobin ABG Sodium ABG Potassium ABG Chloride ABG Glucose Carboxyhemoglobin Sodium Potassium Chloride Carbon Dioxide BUN Creatinine Glucose POC Glucose 127 H Lactic Acid Calcium Phosphorus Magnesium Ferritin Total Bilirubin Direct Bilirubin 0.6 H AST 123 H ALT 105 H Alkaline Phosphatase 232 H Ammonia Lactate Dehydrogenase Troponin T C-Reactive Protein Total Protein 4.8 L Albumin 2.2 L Triglycerides Cholesterol HDL Cholesterol Lipase Arterial Blood Glucose Arterial Blood Ionized Calcium Urine WBC (Auto) Salicylates Acetaminophen Coronavirus (PCR) 03/04/21 03/04/21 03/04/21 05:26 06:01 06:53 WBC RBC Hgb Hct MCV MCH RDW Seg Neutrophils % Monocytes % (Manual) Seg Neutrophils # Monocytes # (Manual) PT INR D-Dimer Heparin Anti-Xa Level 0.71 H ABG pH POC ABG pCO2 POC ABG pO2 ABG Hemoglobin ABG Oxyhemoglobin ABG Sodium ABG Potassium ABG Chloride ABG Glucose Carboxyhemoglobin Sodium Potassium Chloride Carbon Dioxide BUN Creatinine Glucose POC Glucose 120 H 117 H Lactic Acid Calcium Phosphorus Magnesium Ferritin Total Bilirubin Direct Bilirubin AST ALT Alkaline Phosphatase Ammonia Lactate Dehydrogenase Troponin T C-Reactive Protein Total Protein Albumin Triglycerides Cholesterol HDL Cholesterol Lipase Arterial Blood Glucose Arterial Blood Ionized Calcium Urine WBC (Auto) Salicylates Acetaminophen Coronavirus (PCR) 03/04/21 03/04/21 03/04/21 07:57 10:17 10:17 WBC RBC 2.51 L Hgb 8.3 L Hct 25.3 L MCV 101 H MCH 33 H RDW 18.5 H Seg Neutrophils % Monocytes % (Manual) Seg Neutrophils # Monocytes # (Manual) PT INR D-Dimer Heparin Anti-Xa Level ABG pH POC ABG pCO2 POC ABG pO2 ABG Hemoglobin ABG Oxyhemoglobin ABG Sodium ABG Potassium ABG Chloride ABG Glucose Carboxyhemoglobin Sodium 136 L Potassium Chloride 93.1 L Carbon Dioxide 33 H BUN 46 H Creatinine 1.4 H Glucose 151 H POC Glucose 129 H Lactic Acid Calcium 7.5 L Phosphorus Magnesium Ferritin Total Bilirubin Direct Bilirubin AST 126 H ALT 100 H Alkaline Phosphatase 226 H Ammonia Lactate Dehydrogenase Troponin T C-Reactive Protein Total Protein 5.0 L Albumin 2.2 L Triglycerides Cholesterol HDL Cholesterol Lipase Arterial Blood Glucose Arterial Blood Ionized Calcium Urine WBC (Auto) Salicylates Acetaminophen Coronavirus (PCR) 03/04/21 03/04/21 03/04/21 10:17 10:17 11:26 WBC RBC Hgb Hct MCV MCH RDW Seg Neutrophils % Monocytes % (Manual) Seg Neutrophils # Monocytes # (Manual) PT 15.6 H INR 1.18 H D-Dimer Heparin Anti-Xa Level ABG pH POC ABG pCO2 POC ABG pO2 ABG Hemoglobin ABG Oxyhemoglobin ABG Sodium ABG Potassium ABG Chloride ABG Glucose Carboxyhemoglobin Sodium Potassium Chloride Carbon Dioxide BUN Creatinine Glucose POC Glucose 167 H Lactic Acid Calcium Phosphorus Magnesium Ferritin Total Bilirubin Direct Bilirubin AST ALT Alkaline Phosphatase Ammonia Lactate Dehydrogenase Troponin T C-Reactive Protein Total Protein Albumin Triglycerides Cholesterol HDL Cholesterol Lipase 78 H Arterial Blood Glucose Arterial Blood Ionized Calcium Urine WBC (Auto) Salicylates Acetaminophen Coronavirus (PCR) 03/04/21 03/04/21 03/04/21 13:04 16:26 17:58 WBC RBC Hgb 7.7 L Hct 23.2 L MCV MCH RDW Seg Neutrophils % Monocytes % (Manual) Seg Neutrophils # Monocytes # (Manual) PT INR D-Dimer Heparin Anti-Xa Level < 0.10 L ABG pH POC ABG pCO2 POC ABG pO2 ABG Hemoglobin ABG Oxyhemoglobin ABG Sodium ABG Potassium ABG Chloride ABG Glucose Carboxyhemoglobin Sodium Potassium Chloride Carbon Dioxide BUN Creatinine Glucose POC Glucose 167 H Lactic Acid Calcium Phosphorus Magnesium Ferritin Total Bilirubin Direct Bilirubin AST ALT Alkaline Phosphatase Ammonia Lactate Dehydrogenase Troponin T C-Reactive Protein Total Protein Albumin Triglycerides Cholesterol HDL Cholesterol Lipase Arterial Blood Glucose Arterial Blood Ionized Calcium Urine WBC (Auto) Salicylates Acetaminophen Coronavirus (PCR) 03/04/21 03/05/21 03/05/21 23:47 04:00 05:06 WBC RBC Hgb Hct MCV MCH RDW Seg Neutrophils % Monocytes % (Manual) Seg Neutrophils # Monocytes # (Manual) PT INR D-Dimer Heparin Anti-Xa Level ABG pH POC ABG pCO2 POC ABG pO2 129.1 H ABG Hemoglobin 8.3 L ABG Oxyhemoglobin ABG Sodium 131.4 L ABG Potassium ABG Chloride 95.0 L ABG Glucose 153 H Carboxyhemoglobin Sodium Potassium Chloride Carbon Dioxide BUN Creatinine Glucose POC Glucose 153 H 139 H Lactic Acid Calcium Phosphorus Magnesium Ferritin Total Bilirubin Direct Bilirubin AST ALT Alkaline Phosphatase Ammonia Lactate Dehydrogenase Troponin T C-Reactive Protein Total Protein Albumin Triglycerides Cholesterol HDL Cholesterol Lipase Arterial Blood Glucose 153 H Arterial Blood Ionized Calcium Urine WBC (Auto) Salicylates Acetaminophen Coronavirus (PCR) 03/05/21 03/05/21 03/05/21 11:43 13:35 13:35 WBC RBC 2.38 L Hgb 7.8 L Hct 23.8 L MCV 100 H MCH 33 H RDW 18.2 H Seg Neutrophils % Monocytes % (Manual) Seg Neutrophils # Monocytes # (Manual) PT INR D-Dimer Heparin Anti-Xa Level ABG pH POC ABG pCO2 POC ABG pO2 ABG Hemoglobin ABG Oxyhemoglobin ABG Sodium ABG Potassium ABG Chloride ABG Glucose Carboxyhemoglobin Sodium Potassium Chloride 94.4 L Carbon Dioxide BUN 49 H Creatinine 1.6 H Glucose 165 H POC Glucose 174 H Lactic Acid Calcium 7.5 L Phosphorus Magnesium Ferritin Total Bilirubin Direct Bilirubin AST ALT Alkaline Phosphatase Ammonia Lactate Dehydrogenase Troponin T C-Reactive Protein Total Protein Albumin Triglycerides Cholesterol HDL Cholesterol Lipase Arterial Blood Glucose Arterial Blood Ionized Calcium Urine WBC (Auto) Salicylates Acetaminophen Coronavirus (PCR) 03/05/21 03/05/21 03/05/21 17:57 21:27 Unknown WBC RBC Hgb Hct MCV MCH RDW Seg Neutrophils % Monocytes % (Manual) Seg Neutrophils # Monocytes # (Manual) PT INR D-Dimer Heparin Anti-Xa Level ABG pH POC ABG pCO2 POC ABG pO2 ABG Hemoglobin ABG Oxyhemoglobin ABG Sodium ABG Potassium ABG Chloride ABG Glucose Carboxyhemoglobin Sodium Potassium Chloride Carbon Dioxide BUN Creatinine Glucose POC Glucose 129 H 129 H Lactic Acid Calcium Phosphorus Magnesium Ferritin Total Bilirubin Direct Bilirubin AST ALT Alkaline Phosphatase Ammonia Lactate Dehydrogenase Troponin T C-Reactive Protein Total Protein Albumin Triglycerides Cholesterol HDL Cholesterol Lipase Arterial Blood Glucose Arterial Blood Ionized Calcium Urine WBC (Auto) Salicylates Acetaminophen Coronavirus (PCR) Positive A 03/06/21 03/06/21 03/06/21 03:30 04:30 05:20 WBC 15.2 H RBC 2.48 L Hgb 8.2 L Hct 24.9 L MCV 100 H MCH 33 H RDW 18.6 H Seg Neutrophils % 72.6 H Monocytes % (Manual) Seg Neutrophils # 11.1 H Monocytes # (Manual) PT INR D-Dimer Heparin Anti-Xa Level ABG pH POC ABG pCO2 49.7 H POC ABG pO2 65.1 L ABG Hemoglobin 9.1 L ABG Oxyhemoglobin 90.2 L ABG Sodium 131.2 L ABG Potassium ABG Chloride 96.0 L ABG Glucose 133 H Carboxyhemoglobin Sodium Potassium Chloride Carbon Dioxide BUN Creatinine Glucose POC Glucose Lactic Acid Calcium Phosphorus Magnesium Ferritin Total Bilirubin Direct Bilirubin AST ALT Alkaline Phosphatase Ammonia Lactate Dehydrogenase Troponin T C-Reactive Protein 27.90 H Total Protein Albumin Triglycerides Cholesterol HDL Cholesterol Lipase Arterial Blood Glucose 133 H Arterial Blood Ionized Calcium 4.2 L Urine WBC (Auto) Salicylates Acetaminophen Coronavirus (PCR) 03/06/21 03/06/21 03/06/21 05:20 05:30 11:52 WBC RBC Hgb Hct MCV MCH RDW Seg Neutrophils % Monocytes % (Manual) Seg Neutrophils # Monocytes # (Manual) PT INR D-Dimer Heparin Anti-Xa Level ABG pH POC ABG pCO2 POC ABG pO2 ABG Hemoglobin ABG Oxyhemoglobin ABG Sodium ABG Potassium ABG Chloride ABG Glucose Carboxyhemoglobin Sodium 135 L Potassium Chloride 94.5 L Carbon Dioxide BUN 49 H Creatinine Glucose 121 H POC Glucose 123 H 123 H Lactic Acid Calcium 7.3 L Phosphorus Magnesium 1.50 L Ferritin Total Bilirubin Direct Bilirubin AST 120 H ALT 74 H Alkaline Phosphatase 306 H Ammonia Lactate Dehydrogenase Troponin T C-Reactive Protein Total Protein 4.5 L Albumin 2.0 L Triglycerides Cholesterol HDL Cholesterol Lipase Arterial Blood Glucose Arterial Blood Ionized Calcium Urine WBC (Auto) Salicylates Acetaminophen Coronavirus (PCR) 03/06/21 03/06/21 03/06/21 14:34 17:45 23:36 WBC RBC Hgb Hct MCV MCH RDW Seg Neutrophils % Monocytes % (Manual) Seg Neutrophils # Monocytes # (Manual) PT INR D-Dimer Heparin Anti-Xa Level ABG pH POC ABG pCO2 POC ABG pO2 ABG Hemoglobin ABG Oxyhemoglobin ABG Sodium ABG Potassium ABG Chloride ABG Glucose Carboxyhemoglobin Sodium Potassium Chloride Carbon Dioxide BUN Creatinine Glucose POC Glucose 140 H 209 H Lactic Acid Calcium Phosphorus Magnesium Ferritin Total Bilirubin Direct Bilirubin AST ALT Alkaline Phosphatase Ammonia Lactate Dehydrogenase Troponin T C-Reactive Protein Total Protein Albumin Triglycerides Cholesterol HDL Cholesterol Lipase Arterial Blood Glucose Arterial Blood Ionized Calcium Urine WBC (Auto) 103.0 H Salicylates Acetaminophen Coronavirus (PCR) 03/07/21 03/07/21 03/07/21 03:00 05:32 08:16 WBC RBC Hgb Hct MCV MCH RDW Seg Neutrophils % Monocytes % (Manual) Seg Neutrophils # Monocytes # (Manual) PT INR D-Dimer Heparin Anti-Xa Level ABG pH POC ABG pCO2 POC ABG pO2 ABG Hemoglobin 8.9 L ABG Oxyhemoglobin ABG Sodium 131.4 L ABG Potassium ABG Chloride ABG Glucose 224 H Carboxyhemoglobin Sodium 136 L Potassium Chloride 95.3 L Carbon Dioxide BUN 45 H Creatinine Glucose 210 H POC Glucose 213 H Lactic Acid Calcium 8.0 L Phosphorus Magnesium Ferritin Total Bilirubin 1.30 H Direct Bilirubin AST 144 H ALT 66 H Alkaline Phosphatase 335 H Ammonia Lactate Dehydrogenase Troponin T C-Reactive Protein Total Protein 4.9 L Albumin 2.1 L Triglycerides Cholesterol HDL Cholesterol Lipase Arterial Blood Glucose 224 H Arterial Blood Ionized Calcium 4.3 L Urine WBC (Auto) Salicylates Acetaminophen Coronavirus (PCR) 03/07/21 03/07/21 03/07/21 08:16 08:16 08:16 WBC RBC 2.47 L Hgb 8.2 L Hct 24.6 L MCV 100 H MCH 33 H RDW 18.1 H Seg Neutrophils % Monocytes % (Manual) Seg Neutrophils # Monocytes # (Manual) PT INR D-Dimer 403.72 H Heparin Anti-Xa Level ABG pH POC ABG pCO2 POC ABG pO2 ABG Hemoglobin ABG Oxyhemoglobin ABG Sodium ABG Potassium ABG Chloride ABG Glucose Carboxyhemoglobin Sodium Potassium Chloride Carbon Dioxide BUN Creatinine Glucose POC Glucose Lactic Acid Calcium Phosphorus Magnesium Ferritin Total Bilirubin Direct Bilirubin AST ALT Alkaline Phosphatase Ammonia Lactate Dehydrogenase 453 H Troponin T C-Reactive Protein 32.50 H Total Protein Albumin Triglycerides Cholesterol HDL Cholesterol Lipase Arterial Blood Glucose Arterial Blood Ionized Calcium Urine WBC (Auto) Salicylates Acetaminophen Coronavirus (PCR) 03/07/21 03/07/21 03/07/21 08:16 11:24 17:22 WBC RBC Hgb Hct MCV MCH RDW Seg Neutrophils % Monocytes % (Manual) Seg Neutrophils # Monocytes # (Manual) PT INR D-Dimer Heparin Anti-Xa Level ABG pH POC ABG pCO2 POC ABG pO2 ABG Hemoglobin ABG Oxyhemoglobin ABG Sodium ABG Potassium ABG Chloride ABG Glucose Carboxyhemoglobin Sodium Potassium Chloride Carbon Dioxide BUN Creatinine Glucose POC Glucose 205 H 211 H Lactic Acid Calcium Phosphorus Magnesium Ferritin > 2000.0 H Total Bilirubin Direct Bilirubin AST ALT Alkaline Phosphatase Ammonia Lactate Dehydrogenase Troponin T C-Reactive Protein Total Protein Albumin Triglycerides Cholesterol HDL Cholesterol Lipase Arterial Blood Glucose Arterial Blood Ionized Calcium Urine WBC (Auto) Salicylates Acetaminophen Coronavirus (PCR) 03/07/21 03/08/21 03/08/21 Unknown 00:05 04:00 WBC RBC Hgb Hct MCV MCH RDW Seg Neutrophils % Monocytes % (Manual) Seg Neutrophils # Monocytes # (Manual) PT INR D-Dimer Heparin Anti-Xa Level 0.94 H ABG pH 7.452 H POC ABG pCO2 POC ABG pO2 75.5 L ABG Hemoglobin 10.0 L ABG Oxyhemoglobin 93.5 L ABG Sodium 134.7 L ABG Potassium ABG Chloride ABG Glucose 268 H Carboxyhemoglobin 0.3 L Sodium Potassium Chloride Carbon Dioxide BUN Creatinine Glucose POC Glucose 253 H Lactic Acid Calcium Phosphorus Magnesium Ferritin Total Bilirubin Direct Bilirubin AST ALT Alkaline Phosphatase Ammonia Lactate Dehydrogenase Troponin T C-Reactive Protein Total Protein Albumin Triglycerides Cholesterol HDL Cholesterol Lipase Arterial Blood Glucose 268 H Arterial Blood Ionized Calcium 4.5 L Urine WBC (Auto) Salicylates Acetaminophen Coronavirus (PCR) 03/08/21 03/08/21 03/08/21 05:27 06:10 06:10 WBC RBC 2.62 L Hgb 8.4 L Hct 26.0 L MCV 100 H MCH RDW 18.0 H Seg Neutrophils % Monocytes % (Manual) Seg Neutrophils # Monocytes # (Manual) PT INR D-Dimer Heparin Anti-Xa Level ABG pH POC ABG pCO2 POC ABG pO2 ABG Hemoglobin ABG Oxyhemoglobin ABG Sodium ABG Potassium ABG Chloride ABG Glucose Carboxyhemoglobin Sodium Potassium Chloride Carbon Dioxide BUN 49 H Creatinine Glucose 280 H POC Glucose 273 H Lactic Acid Calcium Phosphorus Magnesium Ferritin Total Bilirubin Direct Bilirubin AST 130 H ALT 68 H Alkaline Phosphatase 440 H Ammonia Lactate Dehydrogenase Troponin T C-Reactive Protein Total Protein 5.3 L Albumin 1.9 L Triglycerides Cholesterol HDL Cholesterol Lipase Arterial Blood Glucose Arterial Blood Ionized Calcium Urine WBC (Auto) Salicylates Acetaminophen Coronavirus (PCR) 03/08/21 03/08/21 03/08/21 11:27 17:56 23:20 WBC RBC Hgb Hct MCV MCH RDW Seg Neutrophils % Monocytes % (Manual) Seg Neutrophils # Monocytes # (Manual) PT INR D-Dimer Heparin Anti-Xa Level ABG pH POC ABG pCO2 POC ABG pO2 ABG Hemoglobin ABG Oxyhemoglobin ABG Sodium ABG Potassium ABG Chloride ABG Glucose Carboxyhemoglobin Sodium Potassium Chloride Carbon Dioxide BUN Creatinine Glucose POC Glucose 258 H 279 H 289 H Lactic Acid Calcium Phosphorus Magnesium Ferritin Total Bilirubin Direct Bilirubin AST ALT Alkaline Phosphatase Ammonia Lactate Dehydrogenase Troponin T C-Reactive Protein Total Protein Albumin Triglycerides Cholesterol HDL Cholesterol Lipase Arterial Blood Glucose Arterial Blood Ionized Calcium Urine WBC (Auto) Salicylates Acetaminophen Coronavirus (PCR) 03/09/21 03/09/21 03/09/21 04:00 05:12 08:00 WBC RBC Hgb Hct MCV MCH RDW Seg Neutrophils % Monocytes % (Manual) Seg Neutrophils # Monocytes # (Manual) PT INR D-Dimer 249.59 H Heparin Anti-Xa Level ABG pH 7.456 H POC ABG pCO2 POC ABG pO2 ABG Hemoglobin 8.9 L ABG Oxyhemoglobin ABG Sodium 135.6 L ABG Potassium ABG Chloride ABG Glucose 298 H Carboxyhemoglobin 0.3 L Sodium Potassium Chloride Carbon Dioxide BUN Creatinine Glucose POC Glucose 267 H Lactic Acid Calcium Phosphorus Magnesium Ferritin Total Bilirubin Direct Bilirubin AST ALT Alkaline Phosphatase Ammonia Lactate Dehydrogenase Troponin T C-Reactive Protein Total Protein Albumin Triglycerides Cholesterol HDL Cholesterol Lipase Arterial Blood Glucose 298 H Arterial Blood Ionized Calcium 4.5 L Urine WBC (Auto) Salicylates Acetaminophen Coronavirus (PCR) 03/09/21 03/09/21 03/09/21 08:00 08:00 08:00 WBC RBC Hgb Hct MCV MCH RDW Seg Neutrophils % Monocytes % (Manual) Seg Neutrophils # Monocytes # (Manual) PT INR D-Dimer Heparin Anti-Xa Level ABG pH POC ABG pCO2 POC ABG pO2 ABG Hemoglobin ABG Oxyhemoglobin ABG Sodium ABG Potassium ABG Chloride ABG Glucose Carboxyhemoglobin Sodium Potassium Chloride Carbon Dioxide BUN 44 H Creatinine Glucose 289 H POC Glucose Lactic Acid Calcium Phosphorus Magnesium Ferritin 2743.0 H Total Bilirubin Direct Bilirubin AST 134 H ALT 62 H Alkaline Phosphatase 527 H Ammonia Lactate Dehydrogenase 459 H Troponin T C-Reactive Protein 10.60 H Total Protein 5.0 L Albumin 2.2 L Triglycerides Cholesterol HDL Cholesterol Lipase Arterial Blood Glucose Arterial Blood Ionized Calcium Urine WBC (Auto) Salicylates Acetaminophen Coronavirus (PCR) 03/09/21 03/09/21 03/09/21 08:00 11:52 18:05 WBC RBC 2.60 L Hgb 8.5 L Hct 25.5 L MCV 98 H MCH 33 H RDW 18.1 H Seg Neutrophils % Monocytes % (Manual) Seg Neutrophils # Monocytes # (Manual) PT INR D-Dimer Heparin Anti-Xa Level ABG pH POC ABG pCO2 POC ABG pO2 ABG Hemoglobin ABG Oxyhemoglobin ABG Sodium ABG Potassium ABG Chloride ABG Glucose Carboxyhemoglobin Sodium Potassium Chloride Carbon Dioxide BUN Creatinine Glucose POC Glucose 306 H 293 H Lactic Acid Calcium Phosphorus Magnesium Ferritin Total Bilirubin Direct Bilirubin AST ALT Alkaline Phosphatase Ammonia Lactate Dehydrogenase Troponin T C-Reactive Protein Total Protein Albumin Triglycerides Cholesterol HDL Cholesterol Lipase Arterial Blood Glucose Arterial Blood Ionized Calcium Urine WBC (Auto) Salicylates Acetaminophen Coronavirus (PCR) 03/09/21 03/10/21 03/10/21 23:21 04:38 05:25 WBC RBC Hgb 8.6 L Hct 26.0 L MCV MCH RDW Seg Neutrophils % Monocytes % (Manual) Seg Neutrophils # Monocytes # (Manual) PT INR D-Dimer Heparin Anti-Xa Level ABG pH POC ABG pCO2 POC ABG pO2 ABG Hemoglobin ABG Oxyhemoglobin ABG Sodium ABG Potassium ABG Chloride ABG Glucose Carboxyhemoglobin Sodium Potassium Chloride Carbon Dioxide BUN Creatinine Glucose POC Glucose 306 H 310 H Lactic Acid Calcium Phosphorus Magnesium Ferritin Total Bilirubin Direct Bilirubin AST ALT Alkaline Phosphatase Ammonia Lactate Dehydrogenase Troponin T C-Reactive Protein Total Protein Albumin Triglycerides Cholesterol HDL Cholesterol Lipase Arterial Blood Glucose Arterial Blood Ionized Calcium Urine WBC (Auto) Salicylates Acetaminophen Coronavirus (PCR) 03/10/21 03/10/21 03/10/21 05:25 12:33 12:52 WBC RBC Hgb Hct MCV MCH RDW Seg Neutrophils % Monocytes % (Manual) Seg Neutrophils # Monocytes # (Manual) PT INR D-Dimer Heparin Anti-Xa Level ABG pH 7.487 H POC ABG pCO2 POC ABG pO2 62.1 L ABG Hemoglobin 9.4 L ABG Oxyhemoglobin 89.7 L ABG Sodium ABG Potassium ABG Chloride ABG Glucose 350 H Carboxyhemoglobin 0.2 L Sodium Potassium Chloride Carbon Dioxide 32 H BUN 45 H Creatinine Glucose 341 H POC Glucose 340 H Lactic Acid Calcium Phosphorus Magnesium Ferritin Total Bilirubin Direct Bilirubin AST ALT Alkaline Phosphatase Ammonia Lactate Dehydrogenase Troponin T C-Reactive Protein Total Protein Albumin Triglycerides Cholesterol HDL Cholesterol Lipase Arterial Blood Glucose 350 H Arterial Blood Ionized Calcium Urine WBC (Auto) Salicylates Acetaminophen Coronavirus (PCR) 03/10/21 03/10/21 03/11/21 17:05 22:57 04:58 WBC RBC Hgb Hct MCV MCH RDW Seg Neutrophils % Monocytes % (Manual) Seg Neutrophils # Monocytes # (Manual) PT INR D-Dimer Heparin Anti-Xa Level ABG pH POC ABG pCO2 POC ABG pO2 ABG Hemoglobin ABG Oxyhemoglobin ABG Sodium ABG Potassium ABG Chloride ABG Glucose Carboxyhemoglobin Sodium Potassium Chloride Carbon Dioxide BUN Creatinine Glucose POC Glucose 298 H 241 H 261 H Lactic Acid Calcium Phosphorus Magnesium Ferritin Total Bilirubin Direct Bilirubin AST ALT Alkaline Phosphatase Ammonia Lactate Dehydrogenase Troponin T C-Reactive Protein Total Protein Albumin Triglycerides Cholesterol HDL Cholesterol Lipase Arterial Blood Glucose Arterial Blood Ionized Calcium Urine WBC (Auto) Salicylates Acetaminophen Coronavirus (PCR) 03/11/21 03/11/21 03/11/21 06:54 06:54 06:54 WBC RBC Hgb Hct MCV MCH RDW Seg Neutrophils % Monocytes % (Manual) Seg Neutrophils # Monocytes # (Manual) PT INR D-Dimer 238.43 H Heparin Anti-Xa Level ABG pH POC ABG pCO2 POC ABG pO2 ABG Hemoglobin ABG Oxyhemoglobin ABG Sodium ABG Potassium ABG Chloride ABG Glucose Carboxyhemoglobin Sodium 146 H Potassium Chloride Carbon Dioxide 31 H BUN 41 H Creatinine Glucose 255 H POC Glucose Lactic Acid Calcium Phosphorus Magnesium Ferritin 3346.0 H Total Bilirubin Direct Bilirubin AST ALT Alkaline Phosphatase Ammonia Lactate Dehydrogenase 557 H Troponin T C-Reactive Protein 4.70 H Total Protein Albumin Triglycerides Cholesterol HDL Cholesterol Lipase Arterial Blood Glucose Arterial Blood Ionized Calcium Urine WBC (Auto) Salicylates Acetaminophen Coronavirus (PCR) 03/11/21 03/11/21 03/11/21 06:54 11:25 17:41 WBC RBC 2.76 L Hgb 8.9 L Hct 27.0 L MCV 98 H MCH RDW 18.3 H Seg Neutrophils % Monocytes % (Manual) Seg Neutrophils # Monocytes # (Manual) PT INR D-Dimer Heparin Anti-Xa Level ABG pH POC ABG pCO2 POC ABG pO2 ABG Hemoglobin ABG Oxyhemoglobin ABG Sodium ABG Potassium ABG Chloride ABG Glucose Carboxyhemoglobin Sodium Potassium Chloride Carbon Dioxide BUN Creatinine Glucose POC Glucose 255 H 292 H Lactic Acid Calcium Phosphorus Magnesium Ferritin Total Bilirubin Direct Bilirubin AST ALT Alkaline Phosphatase Ammonia Lactate Dehydrogenase Troponin T C-Reactive Protein Total Protein Albumin Triglycerides Cholesterol HDL Cholesterol Lipase Arterial Blood Glucose Arterial Blood Ionized Calcium Urine WBC (Auto) Salicylates Acetaminophen Coronavirus (PCR) 03/11/21 03/12/21 03/12/21 23:26 04:44 05:16 WBC RBC Hgb Hct MCV MCH RDW Seg Neutrophils % Monocytes % (Manual) Seg Neutrophils # Monocytes # (Manual) PT INR D-Dimer Heparin Anti-Xa Level ABG pH POC ABG pCO2 POC ABG pO2 ABG Hemoglobin ABG Oxyhemoglobin ABG Sodium ABG Potassium ABG Chloride ABG Glucose Carboxyhemoglobin Sodium Potassium Chloride Carbon Dioxide BUN Creatinine Glucose POC Glucose 289 H 255 H Lactic Acid Calcium Phosphorus Magnesium Ferritin Total Bilirubin Direct Bilirubin AST ALT Alkaline Phosphatase Ammonia Lactate Dehydrogenase Troponin T 0.149 H* C-Reactive Protein Total Protein Albumin Triglycerides Cholesterol HDL Cholesterol Lipase Arterial Blood Glucose Arterial Blood Ionized Calcium Urine WBC (Auto) Salicylates Acetaminophen Coronavirus (PCR) 03/12/21 03/12/2103/12/21 12:02 15:00 17:28 WBC RBC Hgb Hct MCV MCH RDW Seg Neutrophils % Monocytes % (Manual) Seg Neutrophils # Monocytes # (Manual) PT INR D-Dimer Heparin Anti-Xa Level ABG pH POC ABG pCO2 POC ABG pO2 ABG Hemoglobin ABG Oxyhemoglobin ABG Sodium ABG Potassium ABG Chloride ABG Glucose Carboxyhemoglobin Sodium Potassium 3.2 L Chloride Carbon Dioxide BUN 39 H Creatinine 0.7 L Glucose 258 H POC Glucose 237 H 257 H Lactic Acid Calcium 8.3 L Phosphorus Magnesium Ferritin Total Bilirubin 2.20 H Direct Bilirubin AST 181 H ALT 129 H Alkaline Phosphatase 541 H Ammonia Lactate Dehydrogenase Troponin T C-Reactive Protein Total Protein 5.0 L Albumin 2.0 L Triglycerides Cholesterol HDL Cholesterol Lipase Arterial Blood Glucose Arterial Blood Ionized Calcium Urine WBC (Auto) Salicylates Acetaminophen Coronavirus (PCR) 03/12/21 03/12/21 03/13/21 21:51 23:15 05:44 WBC RBC Hgb Hct MCV MCH RDW Seg Neutrophils % Monocytes % (Manual) Seg Neutrophils # Monocytes # (Manual) PT INR D-Dimer Heparin Anti-Xa Level ABG pH POC ABG pCO2 POC ABG pO2 ABG Hemoglobin ABG Oxyhemoglobin ABG Sodium ABG Potassium ABG Chloride ABG Glucose Carboxyhemoglobin Sodium Potassium Chloride Carbon Dioxide BUN Creatinine Glucose POC Glucose 253 H 287 H 247 H Lactic Acid Calcium Phosphorus Magnesium Ferritin Total Bilirubin Direct Bilirubin AST ALT Alkaline Phosphatase Ammonia Lactate Dehydrogenase Troponin T C-Reactive Protein Total Protein Albumin Triglycerides Cholesterol HDL Cholesterol Lipase Arterial Blood Glucose Arterial Blood Ionized Calcium Urine WBC (Auto) Salicylates Acetaminophen Coronavirus (PCR) 03/13/21 03/13/21 03/14/21 17:03 23:31 03:40 WBC RBC Hgb Hct MCV MCH RDW Seg Neutrophils % Monocytes % (Manual) Seg Neutrophils # Monocytes # (Manual) PT INR D-Dimer 475.91 H Heparin Anti-Xa Level ABG pH POC ABG pCO2 POC ABG pO2 ABG Hemoglobin ABG Oxyhemoglobin ABG Sodium ABG Potassium ABG Chloride ABG Glucose Carboxyhemoglobin Sodium Potassium Chloride Carbon Dioxide BUN Creatinine Glucose POC Glucose 228 H 275 H Lactic Acid Calcium Phosphorus Magnesium Ferritin Total Bilirubin Direct Bilirubin AST ALT Alkaline Phosphatase Ammonia Lactate Dehydrogenase Troponin T C-Reactive Protein Total Protein Albumin Triglycerides Cholesterol HDL Cholesterol Lipase Arterial Blood Glucose Arterial Blood Ionized Calcium Urine WBC (Auto) Salicylates Acetaminophen Coronavirus (PCR) 03/14/21 03/14/21 03/14/21 03:40 03:40 03:40 WBC RBC 2.25 L Hgb 7.4 L Hct 22.2 L MCV 99 H MCH 33 H RDW 18.5 H Seg Neutrophils % Monocytes % (Manual) Seg Neutrophils # Monocytes # (Manual) PT INR D-Dimer Heparin Anti-Xa Level ABG pH POC ABG pCO2 POC ABG pO2 ABG Hemoglobin ABG Oxyhemoglobin ABG Sodium ABG Potassium ABG Chloride ABG Glucose Carboxyhemoglobin Sodium Potassium 3.3 L Chloride Carbon Dioxide 37 H D BUN 24 H Creatinine 0.6 L Glucose 180 H POC Glucose Lactic Acid Calcium Phosphorus Magnesium Ferritin 3103.0 H Total Bilirubin 1.60 H Direct Bilirubin AST 283 H ALT 188 H Alkaline Phosphatase 619 H Ammonia Lactate Dehydrogenase 588 H Troponin T C-Reactive Protein 4.00 H Total Protein 4.8 L Albumin 2.2 L Triglycerides Cholesterol HDL Cholesterol Lipase Arterial Blood Glucose Arterial Blood Ionized Calcium Urine WBC (Auto) Salicylates Acetaminophen Coronavirus (PCR) Chest x-ray: other (none today) Allied health notes reviewed: nursing
[2021-03-14] MEDS ORDERED: INSULIN GLARGINE 100 UNITS/ML SUB-Q SCH (22:00)
[2021-03-15] MEDS: INSULIN REGULAR, HUMAN 100 UNITS/1 ML SUB-Q SCH ×4 (00:54→17:52)
--- NOTE | 2021-03-15 02:40 | XRay Report ---
CHEST 1 VIEW 03/14/2021 11:55 PM INDICATION / CLINICAL INFORMATION: Pneumonia. COMPARISON: 03/12/21 FINDINGS: SUPPORT DEVICES: Left PICC is unchanged. HEART / MEDIASTINUM: Stable. LUNGS / PLEURA: Bibasilar pleural-parenchymal densities are unchanged. No pneumothorax. ADDITIONAL FINDINGS: No significant additional findings. IMPRESSION: 1. No significant change. Signer Name: Tanner Prieto MD Signed: 03/15/2021 2:35 AM Workstation Name: [email or web address] [id number]
[2021-03-15 05:47] LABS: Hematocrit 23.6 % (35.5-45.6); Hemoglobin 7.8 gm/dl (11.8-15.2); Mean Corpuscular HGB Conc 33 % (32-34); Mean Corpuscular Volume 99 fl (84-94); Platelet Count 265 K/mm3 (140-440); Red Cell Distribution Width 18.3 % (13.2-15.2)
[2021-03-15 05:49] LABS: Alanine Aminotransferase 208 units/L (7-56); Albumin 2.1 g/dL (3.9-5); Blood Urea Nitrogen 19 mg/dL (9-20); Hemolysis Index 1
[2021-03-15 05:50] LABS: BUN/Creatinine Ratio 32
[2021-03-15] MEDS: hydrALAZINE 25 MG TAB PO SCH ×3 (08:16→20:00)
[2021-03-15] MEDS: SENNOSIDES/DOCUSATE SODIUM 8.6/50 MG TAB FEEDTUBE SCH ×2 (10:15→22:09)
[2021-03-15] MEDS: CHOLECALCIFEROL (VIT D3) 1000 UNIT (25 mcg) TAB PO SCH (10:15)
[2021-03-15] MEDS: ASPIRIN 81 MG TAB CHEW PO SCH (10:15)
[2021-03-15] MEDS: ZINC SULFATE 220 MG CAP PO SCH ×2 (10:15→22:09)
[2021-03-15] MEDS: ASCORBIC ACID 500 MG TAB PO SCH ×2 (10:15→22:09)
[2021-03-15] MEDS: ENOXAPARIN 150 MG/1 ML INJ SUB-Q SCH ×2 (10:16→22:10)
[2021-03-15] MEDS: FUROSEMIDE 40 MG/4 ML INJ IV SCH (10:17)
[2021-03-15] MEDS: FAMOTIDINE 20 MG TAB PO SCH ×2 (10:17→22:11)
[2021-03-15] MEDS: guaiFENesin ER 600 MG TAB PO SCH ×2 (10:17→22:09)
[2021-03-15] MEDS: CALCIUM CARB/VIT D3/MINERALS 600 MG/800 UNITS TAB PO SCH ×2 (10:17→22:10)
--- NOTE | 2021-03-15 11:06 | Progress Note ---
Assessment and Plan SVT * Patient had SVT into 180s on 03/12/2021. Resolved after being given Adenosine 6mg IV. Patient was then started on Amio gtt * Patient has since been Sinus rhythm on monitor. Discontinued Amio 200mg BID PO. Continue to monitor Hypertension * Patient currently on labetolol 100mg BID, Hydralizine 25 mg TID HFpEF * Echo 12/13/2020 - EF 55-60%, otherwise technically difficult study. * Echo 05/2016 - LV mildly dilated, EF 55-60%, grade II diastolic dysfxn, RV mildly enlarged, normal RV sys fxn, LA mildly dilated, RA mildly dilated, mild-mod AR, mild CA, mild aortic root dilatation. COVID-19 PNA Acute hypoxic resporitary failure * Patient positive for COVID-19 * Secondary to COVID PNA * Pulmonology and infectious disease are following DVT of RLE * Patient on Enoxaparin 130mg SQ BID . Plan to transition to Coumadin once patient is hemodynamically stable * He was diagnosed with a LLE DVT in March 2020 and appears to have been on Coumadin as an outpatient. Patient seen in conjunction with Dr. Lassiter who agrees with this plan of care. Will see as needed over the weekend. 30min of critical care time spent in care of coordination of this patient - Patient Problems (1) ALPHONSO (acute kidney injury) Current Visit: Yes Status: Acute (2) Acute and chronic respiratory failure ([id number]) Current Visit: Yes Status: Acute (3) Acute deep vein thrombosis (DVT) of right lower extremity Current Visit: Yes Status: Acute (4) Encephalopathy Current Visit: Yes Status: Acute (5) NSTEMI (non-ST elevated myocardial infarction) Current Visit: Yes Status: Acute (6) Transaminitis Current Visit: Yes Status: Acute (7) COPD (chronic obstructive pulmonary disease) Current Visit: Yes Status: Chronic (8) Chronic heart failure with preserved ejection fraction (HFpEF) Current Visit: Yes Status: Chronic (9) DM2 (diabetes mellitus, type 2) Current Visit: Yes Status: Chronic (10) H/O: HTN (hypertension) Current Visit: Yes Status: Chronic (11) History of pulmonary embolus (PE) Current Visit: Yes Status: Chronic (12) COVID-19 Current Visit: Yes Status: Acute Subjective Date of service: 03/15/21 Principal diagnosis: Ac hypoxemic resp failure; NSTEMI; ALPHONSO; Sepsis; PNA; CHF; DM II; AMS Interval history: Patient sitting in bed with no cardiac complaints Sinus rhythm 90s with no events on monitor Objective Last Vital Signs Temp 99.3 F 03/15/21 07:37 Pulse 91 H 03/15/21 10:00 Resp 19 03/15/21 10:00 BP 101/60 03/15/21 10:00 Pulse Ox 99 03/15/21 10:00 - Physical Examination General: No Apparent Distress HEENT: Positive: Normocephaly Neck: Positive: trachea midline Cardiac: Positive: Reg Rate and Rhythm Lungs: Positive: Decreased Breath Sounds Neuro: Positive: Grossly Intact Abdomen: Positive: Soft Skin: Negative: Rash Incision: Cardiac Cath Site Musculoskeletal: No Fluid Collection Extremities: Present: upper extr. pulses, lower extr. pulses, +3 Edema, warm, Other (anasarca) - Labs and Meds Cardiac Enzymes 03/15/21 Range/Units 05:00 AST 189 H (5-40) units/L CBC 03/15/21 Range/Units 05:00 WBC 8.3 (4.5-11.0) K/mm3 RBC 2.40 L (3.65-5.03) M/mm3 Hgb 7.8 L (11.8-15.2) gm/dl Hct 23.6 L (35.5-45.6) % Plt Count 265 (140-440) K/mm3 Comprehensive Metabolic Panel 03/15/21 Range/Units 05:00 Sodium 142 (137-145) mmol/L Potassium 3.8 (3.6-5.0) mmol/L Chloride 102.9 (98-107) mmol/L Carbon Dioxide 29 D (22-30) mmol/L BUN 19 (9-20) mg/dL Creatinine 0.6 L (0.8-1.3) mg/dL Glucose 238 H (75-100) mg/dL Calcium 8.0 L (8.4-10.2) mg/dL AST 189 H (5-40) units/L ALT 208 H (7-56) units/L Alkaline Phosphatase 659 H (35-129) units/L Total Protein 5.1 L (6.3-8.2) g/dL Albumin 2.1 L (3.9-5) g/dL - Imaging and Cardiology EKG: report reviewed, image reviewed Echo: report reviewed (12/2020 - EF 55-60%) Cardiac cath: pending - Telemetry EKG Rhythm: Sinus Rhythm - EKG Sinus rhythms and dysrhythmias: sinus rhythm AV and intraventricular conduction: right bundle branch block Repolarization changes or abnormalities: nonspecific abnormality, ST segment, and/or T wave - Allied health notes Allied health notes reviewed: nursing
[2021-03-15] MEDS ORDERED: INSULIN GLARGINE 100 UNITS/ML SUB-Q SCH (11:19)
--- NOTE | 2021-03-15 11:20 | Progress Note ---
Assessment and Plan Assessment and plan: This is a a 51 year old male admitted for for severe sepsis, respiratory failure, pneumonia and ALPHONSO. PMH: COPD, CHF, DM, DVT/PE, HTN, KAM, obesity, asthma PSx: none reported home meds: albuterol sulfate, advair, HCTZ, atrovent, glucophage, Klor-Con, midodrine, metoprolol, lasix, lantus, coumadin (from audit and home meds reconciliation) Social: unknown A/P Neuro: Metabolic encephalopathy -Resolved. -Now extbated Cardio: SR/ST: Acute on Chronic HFpEF (per cards), NSTEMI, h/o HTN, HLD, Prolonged QTc, SVT -Cardiology consulted, appreciate recommendations -midodrine d/c r/t HTN -BP monitoring per protocol -Labetalol PO -Per cardiology: 1. gentle IV diuresis when able 2. Echo 12/13/2020 - EF 55-60%, otherwise technically difficult study. Echo 05/2016 - LV mildly dilated, EF 55-60%, grade II diastolic dysfxn, RV mildly enlarged, normal RV sys fxn, LA mildly dilated, RA mildly dilated, mild-mod AR, mild [place], mild aortic root dilatation. Resp: Acute on chronic hypoxic respiratory failure, Bilateral PNA, hx COPD, KAM, asthma, ?PE -[facility] consulted, appreciate recommendations -MV, wean as tolerated -Intubated 03/01, tube exchange 03/09 OETT 8/0 @ 25 lip -nOW EXTUBATED 03/10 -Continuos SPO2 monitoring -abx with levaquin (03/02-03/07)-DC 03/05 r/t prolonged QTc -03/01 CT chest shows several pulmonary nodules within Right lung measuring 6-8 mm, increased interstitial prominence -? f/u outpt with PCP/pulmanology -03/10 CXR reviewed GI: Transaminitis, TF -GI consulted, appreciate recommendations -Trend LFTs -RUQ US shows no evidence of cholelithiasis, cholecytitis or choledocholithisis -CT abd/pelvis showed fatty infiltration of liver -Ntr consult for TF -PPI -BR [place] -last BM 03/06 -24 hr net (-) 225 : ALPHONSO (stable/resolved) -Nephrology consulted, appreciate recommendations -Pt was on HD at recent hospitalization at OSH -Renally dose mediations -Avoid nephrotoxic medications -Strict I&Os -Renal US shows no significant abnormality -Daily weights -Replete electrolytes -Trend BMP -s/p lasix x 2, prn hydral -Trial lasix again today Heme: DVT-R posterior tibial vein, h/o LLE DVT (December 2019)/ PE (failed Xa inhibitors per cards; on home coumadin) -evidenced on BLE Doppler US -Heparin gtt d/c to lovenox subq (03/09) -SCDs while in bed -Per cards: Eventually plan to transition to Coumadin ID: Severe Sepsis, B PNA, COVID 19 infection -s/p abx therapy (azithromycin 03/01-03/02, aztreonam 03/02, cefepime 03/01-03/02, levaquin 03/02-03/05, flagyl 03/01-03/02, vancomycin 03/01-03/02) -VAP bundle -MRSA (+) nares -COVID 19 PCR (+) -Decadron for 10 days (03/06-03/15) -Remdesivir (03/06-03/10) -Contact/Droplet precautions -03/01 BCx2 with NGTD, UC with NGTD, sputum culture normal sole -03/06 BC NGTD -Prone if needed -Vit C/D/Zinc Endo: DM -SSI, lantus (titrate as needed) -Accuchecks q6 -Avoid hypoglycemia FEN: Hypokalemia, Hypomagenesmia- Replace lines: condom cath, PIV, RADHA Disposition: ICU Full code The high probability of a clinically significant, sudden or life threatening deterioration of the [multi] system(s) required my full and direct attention, intervention and personal management. The aggregate critical care time was [40] minutes. This time is in addition to time spent performing reported procedures but includes the following: [x] Data Review and interpretation [x] Patient assessment and monitoring of vital signs [x] Documentation [x] Medication orders and management History Interval history: This is a 51-year-old -[place] male with COPD with chronic respiratory failure, CHFpEF, diabetes mellitus, DVT/PE on coumadin and hypertension who p resented to [facility] via EMS for AMS and hypoxia. On arrival of EMS oxygen saturation was about 88% on room air, blood pressure was said to be about 88/50 mmHg. Work-up in the emergency room reveals leukocytosis of 12.7, hemoglobin of 9.1 and hematocrit of 27.7, sodium of 132, lactic acid of 2.90, elevated liver enzymes and elevated troponin at 0.493. A CT of the chest showed findings concerning for atelectasis and or infiltrate, CT of the head was unremarkable. Patient was in severe respiratory distress upon arrival in the emergency room and subsequently intubated. Patient was admitted to the hospitalist service with consults to cardiology, CCM, GI, and neprohology for severe sepsis, respiratory failure, pneumonia and ALPHONSO. Of note patient was admitted to [facility] from 12/12-01/14 and was on HD during that admit. 03/03/21: Patient remains intubated, continue on heparin drip, monitor H&H and BMP. Continue empiric antibiotics, ID following. Follow ammonia level and LFT. According to cardiology patient indeed had preserved EF during his recent admission to [place]. Plan to repeat 2D echo. Critical care following, wean off from vent as tolerated. 03/04: RN reported blood y secretions in OETT and clots, heparin gtt stopped and B LE US obtained which shows DVT, abx deescalated, heparin gtt restarted. 03/05: RN reported vomiting x1, promithazine x1 given, Qtc at 599 on EKG. AM labs pending. tmax 102.2, reculture with next spike, COVID 19 PCR. abx stopped re prolonged qtc and received CAP coverage. 03/06: Reported high TF residual, COVID PCR pending. Cr better today. tmax 100.7 03/07: radha placed yesterday, started on remdesivir re positive covid. ID consulted yesterday. SHERYL overnight. 03/08: SHERYL reported overnight. Patient is now hypertensive and midodrine has been held. Will now place on low dose antihtn and prn hydral. 03/09: Patient reportedly through tube and OETT was exchanged, patient was given paralytic for exchange. No acute events reported overnight. Patient noted to be hypertensive and we will trial Lasix again today. 03/10: PSV trial today. fentayl was stopped. BP maintaining. SHERYL overnight. 03/11: Patient was extuabted, awaiting Speech therapy, discussed with nursing staff at bedside, considering Hypertensive urgency, will do a bedside swallow eval and give oral meds if passed. Continue aspiration precautions. The patient has hx of Asthma, continue neb treatment. 03/12: Patient remains in ICU care secondary to SVT and unstable hemodynamics. Cardiology reevaluated patient was given adenosine and started on amnio drip. Still awaiting speech therapy evaluation although considering her current condition we will keep the patient n.p.o. Case discussed with aquaculture program director and drywall hanger helper. Monitor electrolytes and correct as needed. 03/13: Patient this morning remains in normal sinus rhythm following the adenosine and amnio drip which is still going the latter I mean. I will start the patient on Lasix for 3 days and monitor her renal function. Patient is already on high dose of dexamethasone considering his history of bronchospasm disease. We will repeat a pulmonary evaluation we will correct electrolytes especially with the Lasix. CCT 35 pLAN DISCUSSED WITH THE PATIENT AND NURSE 03/14: Patient unfortunately is declining continues on high flow -70% intermittent altered mental status refusing all treatment plan. Psych saw the patient recommended Geodon as needed. Will transition some medications to IV. Continue encouraging patient to use BiPAP. Continue nebulizer treatment and steroid therapy. Pulmonary and cardiology input also appreciated. 03/15: Patient seen and examined, continue to wean oxygen flow as tolerated, Electrolytes replacement protocol inplace, LFT still elevated but trending down some. Again counselling provided to the patient about compliance. Adjust insulin. The high probability of a clinically significant, sudden or life threatening deterioration of the [pulmonary, neuro, cardiac] system(s) required my full and direct attention, intervention and personal management. The aggregate critical care time was [35] minutes. This time is in addition to time spent performing reported procedures but includes the following: [x] Data Review and interpretation [x] Patient assessment and monitoring of vital signs [x] Documentation [x] Medication orders and management History Interval history: Patient seen and examined, seen and examined this morning. The nursing team says he complains of pain in the fingers but the patient denies this, he sometimes appears spaces out Hospitalist Physical - Physical exam Narrative exam: General appearance: Present: no acute distress, well-nourished, obese, generalized anasarca although improving - EENT Eyes: Present: PERRL, EOM intact ENT: clear oral mucosa - Neck Neck: Present: normal ROM - Respiratory Respiratory effort: normal Respiratory: bilateral: diminished - Cardiovascular Rhythm: regular Heart Sounds: Present: S1 & S2. Absent: systolic murmur, diastolic murmur - Extremities Extremities: no ischemia, pulses intact, pulses symmetrical, NOTED pitting edema, normal temperature, normal color - Abdominal General gastrointestinal: soft, non-tender, non-distended, normal bowel sounds - Integumentary Integumentary: Present: clear, warm, dry- see full documentation of skin exam in nursing assessment - Psychiatric Psychiatric: cooperative some times. - Neurologic Neurologic: moves all extremities - Allied Health Allied health notes reviewed: nursing, RT - Constitutional Vitals: Temp Pulse Resp BP Pulse Ox 99.3 F 91 H 19 101/60 99 03/15/21 07:37 03/15/21 10:00 03/15/21 10:00 03/15/21 10:00 03/15/21 10:00 General appearance: Present: no acute distress, well-nourished, obese, other (sedated) HEART Score - HEART Score Troponin: Troponin T 0.149 ng/mL (0.00-0.029) H* 03/12/21 04:44 Results - Labs CBC & Chem 7: 03/15/21 05:00 03/15/21 05:00 Labs: Laboratory Last Values WBC 8.3 K/mm3 (4.5-11.0) 03/15/21 05:00 RBC 2.40 M/mm3 (3.65-5.03) L 03/15/21 05:00 Hgb 7.8 gm/dl (11.8-15.2) L 03/15/21 05:00 Hct 23.6 % (35.5-45.6) L 03/15/21 05:00 MCV 99 fl (84-94) H 03/15/21 05:00 MCH 33 pg (28-32) H 03/15/21 05:00 MCHC 33 % (32-34) 03/15/21 05:00 RDW 18.3 % (13.2-15.2) H 03/15/21 05:00 Plt Count 265 K/mm3 (140-440) 03/15/21 05:00 Lymph % (Auto) 22.4 % (13.4-35.0) 03/06/21 05:20 Thomas % (Auto) 4.5 % (0.0-7.3) 03/06/21 05:20 Eos % (Auto) 0.2 % (0.0-4.3) 03/06/21 05:20 Baso % (Auto) 0.3 % (0.0-1.8) 03/06/21 05:20 Lymph # (Auto) 3.4 K/mm3 (1.2-5.4) 03/06/21 05:20 Thomas # (Auto) 0.7 K/mm3 (0.0-0.8) 03/06/21 05:20 Eos # (Auto) 0.0 K/mm3 (0.0-0.4) 03/06/21 05:20 Baso # (Auto) 0.1 K/mm3 (0.0-0.1) 03/06/21 05:20 Add Manual Diff Complete 03/01/21 19:21 Total Counted 100 03/01/21 19:21 Seg Neutrophils % 72.6 % (40.0-70.0) H 03/06/21 05:20 Seg Neuts % (Manual) 49.0 % (40.0-70.0) 03/01/21 19:21 Lymphocytes % (Manual) 32.0 % (13.4-35.0) 03/01/21 19:21 Monocytes % (Manual) 17.0 % (0.0-7.3) H 03/01/21 19:21 Eosinophils % (Manual) 1.0 % (0.0-4.3) 03/01/21 19:21 Basophils % (Manual) 1.0 % (0.0-1.8) 03/01/21 19:21 Nucleated RBC % Not Reportable 03/01/21 19:21 Seg Neutrophils # 11.1 K/mm3 (1.8-7.7) H 03/06/21 05:20 Seg Neutrophils # Man 6.2 K/mm3 (1.8-7.7) 03/01/21 19:21 Band Neutrophils # 0.0 K/mm3 03/01/21 19:21 Lymphocytes # (Manual) 4.1 K/mm3 (1.2-5.4) 03/01/21 19:21 Abs React Lymphs (Man) 0.0 K/mm3 03/01/21 19:21 Monocytes # (Manual) 2.2 K/mm3 (0.0-0.8) H 03/01/21 19:21 Eosinophils # (Manual) 0.1 K/mm3 (0.0-0.4) 03/01/21 19:21 Basophils # (Manual) 0.1 K/mm3 (0.0-0.1) 03/01/21 19:21 Metamyelocytes # 0.0 K/mm3 03/01/21 19:21 Myelocytes # 0.0 K/mm3 03/01/21 19:21 Promyelocytes # 0.0 K/mm3 03/01/21 19:21 Blast Cells # 0.0 K/mm3 03/01/21 19:21 WBC Morphology Not Reportable 03/01/21 19:21 Hypersegmented Neuts Not Reportable 03/01/21 19:21 Hyposegmented Neuts Not Reportable 03/01/21 19:21 Hypogranular Neuts Not Reportable 03/01/21 19:21 Smudge Cells Not Reportable 03/01/21 19:21 Toxic Granulation Not Reportable 03/01/21 19:21 Toxic Vacuolation Not Reportable 03/01/21 19:21 Dohle Bodies Not Reportable 03/01/21 19:21 Pelger-Huet Anomaly Not Reportable 03/01/21 19:21 Katherine Rods Not Reportable 03/01/21 19:21 Platelet Estimate Not Reportable 03/01/21 19:21 Clumped Platelets Not Reportable 03/01/21 19:21 Plt Clumps, EDTA Not Reportable 03/01/21 19:21 Large Platelets Not Reportable 03/01/21 19:21 Giant Platelets Not Reportable 03/01/21 19:21 Platelet Satelliting Not Reportable 03/01/21 19:21 Plt Morphology Comment Not Reportable 03/01/21 19:21 RBC Morphology Not Reportable 03/01/21 19:21 Dimorphic RBCs Not Reportable 03/01/21 19:21 Polychromasia Not Reportable 03/01/21 19:21 Hypochromasia Not Reportable 03/01/21 19:21 Poikilocytosis Not Reportable 03/01/21 19:21 Anisocytosis Rare 03/01/21 19:21 Microcytosis Not Reportable 03/01/21 19:21 Macrocytosis Not Reportable 03/01/21 19:21 Spherocytes Not Reportable 03/01/21 19:21 Pappenheimer Bodies Not Reportable 03/01/21 19:21 Sickle Cells Not Reportable 03/01/21 19:21 Target Cells Not Reportable 03/01/21 19:21 Tear Drop Cells Not Reportable 03/01/21 19:21 Ovalocytes Not Reportable 03/01/21 19:21 Helmet Cells Not Reportable 03/01/21 19:21 Quinones-Grapeland Bodies Not Reportable 03/01/21 19:21 Miller Rings Not Reportable 03/01/21 19:21 [place] Cells Not Reportable 03/01/21 19:21 Bite Cells Not Reportable 03/01/21 19:21 Crenated Cell Not Reportable 03/01/21 19:21 Elliptocytes Not Reportable 03/01/21 19:21 Acanthocytes (Spur) Not Reportable 03/01/21 19:21 Rouleaux Not Reportable 03/01/21 19:21 Hemoglobin C Crystals Not Reportable 03/01/21 19:21 Schistocytes Few 03/01/21 19:21 Malaria parasites Not Reportable 03/01/21 19:21 Henry Bodies Not Reportable 03/01/21 19:21 Hem Pathologist Commnt No 03/01/21 19:21 PT 15.6 Sec. (12.2-14.9) H 03/04/21 10:17 INR 1.18 (0.87-1.13) H 03/04/21 10:17 APTT 36.6 Sec. (24.2-36.6) 03/02/21 16:28 D-Dimer 475.91 ng/mlDDU (0-234) H 03/14/21 03:40 Heparin Anti-Xa Level 0.64 U.I./ml (0.3-0.7) 03/08/21 10:30 ABG pH 7.487 (7.320-7.450) H 03/10/21 12:33 POC ABG pCO2 40.4 mmHg (32.0-48.0) 03/10/21 12:33 POC ABG pO2 62.1 mmHg (83-108) L 03/10/21 12:33 POC ABG HCO3 29.9 03/10/21 12:33 ABG O2 Saturation 90.2 (0-100) 03/10/21 12:33 POC ABG Base Excess 6.0 03/10/21 12:33 ABG Hemoglobin 9.4 (12.0-17.5) L 03/10/21 12:33 ABG Oxyhemoglobin 89.7 (94-98) L 03/10/21 12:33 ABG Methemoglobin 0.3 (0.0-1.5) 03/10/21 12:33 ABG Sodium 138.7 mmol/L (136.0-145.0) 03/10/21 12:33 ABG Potassium 3.7 mmol/L (3.40-4.50) 03/10/21 12:33 ABG Chloride 104.0 mmol/L (98-107) 03/10/21 12:33 ABG Glucose 350 mg/dL (65-95) H 03/10/21 12:33 Carboxyhemoglobin 0.2 (0.5-1.5) L 03/10/21 12:33 FiO2 % 35.0 03/10/21 12:33 Sodium 142 mmol/L (137-145) 03/15/21 05:00 Potassium 3.8 mmol/L (3.6-5.0) 03/15/21 05:00 Chloride 102.9 mmol/L (98-107) 03/15/21 05:00 Carbon Dioxide 29 mmol/L (22-30) D 03/15/21 05:00 Anion Gap 14 mmol/L 03/15/21 05:00 BUN 19 mg/dL (9-20) 03/15/21 05:00 Creatinine 0.6 mg/dL (0.8-1.3) L 03/15/21 05:00 Estimated GFR > 60 ml/min 03/15/21 05:00 BUN/Creatinine Ratio 32 % 03/15/21 05:00 Glucose 238 mg/dL (75-100) H 03/15/21 05:00 POC Glucose 238 mg/dL (70-105) H 03/15/21 05:05 Lactic Acid 1.70 mmol/L (0.7-2.0) 03/04/21 10:17 Calcium 8.0 mg/dL (8.4-10.2) L 03/15/21 05:00 Phosphorus 2.60 mg/dL (2.5-4.5) 03/15/21 05:00 Magnesium 1.90 mg/dL (1.7-2.3) 03/15/21 05:00 Ferritin 3103.0 ng/mL (30.0-300.0) H 03/14/21 03:40 Total Bilirubin 1.50 mg/dL (0.1-1.2) H 03/15/21 05:00 Direct Bilirubin 0.6 mg/dL (0-0.2) H 03/04/21 05:26 Indirect Bilirubin 0.2 mg/dL 03/04/21 05:26 AST 189 units/L (5-40) H 03/15/21 05:00 ALT 208 units/L (7-56) H 03/15/21 05:00 Alkaline Phosphatase 659 units/L (35-129) H 03/15/21 05:00 Ammonia 71.0 umol/L (25-60) H 03/01/21 19:21 Lactate Dehydrogenase 588 units/L (91-180) H 03/14/21 03:40 Troponin T 0.149 ng/mL (0.00-0.029) H* 03/12/21 04:44 C-Reactive Protein 4.00 mg/dL (0.00-1.30) H 03/14/21 03:40 Total Protein 5.1 g/dL (6.3-8.2) L 03/15/21 05:00 Albumin 2.1 g/dL (3.9-5) L 03/15/21 05:00 Albumin/Globulin Ratio 0.7 % 03/15/21 05:00 Triglycerides 400 mg/dL (2-149) H 03/01/21 19:21 Cholesterol 232 mg/dL (50-199) H 03/01/21 19: LDL Cholesterol Direct 130 mg/dL (50-130) 03/01/21 19: HDL Cholesterol 22 mg/dL (40-59) L 03/01/21 19:21 Cholesterol/HDL Ratio 10.54 % 03/01/21 19: Lipase 78 units/L (13-60) H 03/04/21 10:17 Procalcitonin 1.18 ng/mL (<0.15) 03/08/21 06:10 TSH 1.840 mlU/mL (0.270-4.200) 03/03/21 04:06 Arterial Blood Glucose 350 mg/dL (65-95) H 03/10/21 12:33 Arterial Blood Ionized Calcium 4.6 mg/dL (4.6-5.3) 03/10/21 12:33 Urine Color Ariadne (Yellow) 03/06/21 14:34 Urine Turbidity Cloudy (Clear) 03/06/21 14:34 Urine pH 5.0 (5.0-7.0) 03/06/21 14:34 Ur Specific [place] 1.014 (1.003-1.030) 03/06/21 14:34 Urine Protein 30 mg/dl mg/dL (Negative) 03/06/21 14:34 Urine Glucose (UA) Neg mg/dL (Negative) 03/06/21 14:34 Urine Ketones Neg mg/dL (Negative) 03/06/21 14:34 Urine Blood Sm (Negative) 03/06/21 14:34 Urine Nitrite Neg (Negative) 03/06/21 14:34 Urine Bilirubin Neg (Negative) 03/06/21 14:34 Urine Urobilinogen 4.0 mg/dL (<2.0) 03/06/21 14:34 Ur Leukocyte Esterase Neg (Negative) 03/06/21 14:34 Urine WBC (Auto) 103.0 /HPF (0.0-6.0) H 03/06/21 14:34 Urine RBC (Auto) 105.0 /HPF (0.0-6.0) 03/06/21 14:34 U Epithel Cells (Auto) 5.0 /HPF (0-13.0) 03/06/21 14:34 Urine Bacteria (Auto) 2+ /HPF (Negative) 03/06/21 14:34 Hyaline Casts 5 /LPF 03/06/21 14:34 Urine Mucus 1+ /HPF 03/06/21 14:34 Urine Yeast (Budding) Few /HPF 03/01/21 21:40 Urine Sperm 3+ /HPF (DISC PAD GRINDER) 03/06/21 14:34 Nasal Screen MRSA (PCR) Positive (Negative) 03/02/21 05:00 Salicylates < 0.3 mg/dL (2.8-20.0) L 03/01/21 19:21 Urine Opiates Screen Positive 03/01/21 21:40 Urine Methadone Screen Negative 03/01/21 21:40 Acetaminophen 5.0 ug/mL (10.0-30.0) L 03/01/21 19:21 Ur Barbiturates Screen Negative 03/01/21 21:40 Ur Phencyclidine Scrn Negative 03/01/21 21:40 Ur Amphetamines Screen Negative 03/01/21 21:40 U Benzodiazepines Scrn Negative 03/01/21 21:40 Urine Cocaine Screen Negative 03/01/21 21:40 U Marijuana (THC) Screen Negative 03/01/21 21:40 Drugs of Abuse Note Disclamer 03/01/21 21:40 KARLA Screen Negative (Negative) 03/03/21 04:06 Coronavirus (PCR) Positive (Negative) A 03/05/21 Unknown Blood Type O POSITIVE 03/01/21 19:21 Antibody Screen Negative 03/01/21 19:21 Vilchis/IV: Voiding Method External Female Catheter Active Medications - Current Medications Current Medications: Generic Name Dose Route Start Last Admin Trade Name Freq PRN Reason Stop Dose Admin Acetaminophen 650 mg 03/06/21 10:00 03/06/21 12:33 Acetaminophen 325 Mg/10.15 Ml Oral Liqd Unit Dose FEEDTUBE 650 mg Q6H PRN Administration Pain MILD(1-3)/Fever >100.5/VALDES Albuterol 2.5 mg 03/02/21 15:45 03/11/21 23:05 Albuterol 2.5 Mg/3 Ml Nebu IH 2.5 mg Q4H PRN Administration Shortness Of Breath Lipase/Protease/Amylase 1 each 03/03/21 10:53 Lipase 10,500/Protease 25,000/Amylase 43,750 (Units) Dr Gutierrez FEEDTUBE PRN PRN For Clogged Feeding Tube Ascorbic Acid 500 mg 03/06/21 22:00 03/15/21 10:15 Ascorbic Acid 500 Mg Tab PO 500 mg BID KYLE Administration Aspirin 81 mg 03/04/21 10:00 03/15/21 10:15 Aspirin 81 Mg Tab Chew PO 81 mg QDAY KYLE Administration Cholecalciferol 1,000 unit 03/07/21 10:00 03/15/21 10:15 Cholecalciferol (Vit D3) 1000 Unit (25 Mcg) Tab PO 1,000 unit QDAY KYLE Administration Dexamethasone 10 mg 03/07/21 12:00 03/14/21 11:54 Dexamethasone 4 Mg/Ml Vial IV 03/15/21 12:01 10 mg Q24H KYLE Administration Dextrose 50 ml 03/02/21 11:38 Dextrose 50% In Water (25gm) 50 Ml Syringe IV Q30MIN PRN Hypoglycemia Protocol Enoxaparin Sodium 130 mg 03/09/21 11:00 03/15/21 10:16 Enoxaparin 150 Mg/1 Ml Inj SUB-Q 130 mg Q12HR KYLE Administration Protocol Famotidine 20 mg 03/04/21 10:00 03/15/21 10:17 Famotidine 20 Mg Tab PO 20 mg BID KYLE Administration Guaifenesin 600 mg 03/11/21 22:00 03/15/21 10:17 Guaifenesin Er 600 Mg Tab PO 600 mg BID KYLE Administration Hydralazine HCl 10 mg 03/09/21 08:21 03/11/21 22:03 Hydralazine 20 Mg/1 Ml Inj IV 10 mg Q4H PRN Administration Hypertension Hydralazine HCl 25 mg 03/11/21 14:00 03/15/21 08:16 Hydralazine 25 Mg Tab PO 25 mg TID KYLE Administration Hydrophilic Ointment 1 applic 03/02/21 15:42 Lip Therapy Vaseline TP Q2H PRN Dry Lips Sodium Chloride 1,000 mls @ 1 mls/hr 03/06/21 18:11 Nacl 0.9% 500 Ml IV DIRECT PRN ARTERIAL LINE FLUSH Insulin Glargine 15 units 03/14/21 22:00 03/14/21 22:02 Insulin Glargine 100 Units/Ml SUB-Q 15 units QHS KYLE Administration Insulin Human Regular 0 units 03/10/21 18:00 03/15/21 05:10 Insulin Regular, Human 100 Units/1 Ml SUB-Q 4 units Q6HR KYLE Administration Protocol Labetalol HCl 100 mg 03/11/21 14:00 03/15/21 08:16 Labetalol 100 Mg Tab PO 100 mg TID KYLE Administration Magnesium Hydroxide 30 ml 03/02/21 00:18 Magnesium Hydroxide (Mom) Oral Liqd Udc PO Q4H PRN Constipation Metoprolol Tartrate 5 mg 03/12/21 14:15 03/12/21 14:40 Metoprolol Tartrate 5 Mg/5 Ml Inj IV 5 mg Q6HR PRN Administration Tachyarrhythmias Multi-Ingred Cream/Lotion/Oil/Oint 1 applic 03/02/21 15:42 Mineral Oil/Petrolatum, White Ophth Oint 3.5 Gm OU Q4HR PRN Dry Eye(s) Multivitamins/Minerals 1 each 03/03/21 22:00 03/15/21 10:17 Calcium Carb/Vit D3/Minerals 600 Mg/800 Units Tab PO 1 each BID KYLE Administration Senna/Docusate Sodium 1 tab 03/02/21 22:00 03/15/21 10:15 Sennosides/Docusate Sodium 8.6/50 Mg Tab FEEDTUBE 1 tab BID KYLE Administration Simple Syrup 15 ml 03/03/21 10:53 Simple Syrup 15 Ml FEEDTUBE PRN PRN Hypoglycemia Simple Syrup 30 ml 03/03/21 10:53 Simple Syrup 15 Ml FEEDTUBE PRN PRN Hypoglycemia Sodium Bicarbonate 325 mg 03/03/21 10:53 Sodium Bicarbonate 325 Mg Tab FEEDTUBE PRN PRN For Clogged Feeding Tube Sodium Chloride 10 ml 03/02/21 10:00 03/14/21 21:42 Sodium Chloride 0.9% 10 Ml Flush Syringe IV 10 ml BID KYLE Administration Sodium Chloride 10 ml 03/02/21 00:18 Sodium Chloride 0.9% 10 Ml Flush Syringe IV PRN PRN LINE FLUSH Zinc Sulfate 220 mg 03/06/21 16:00 03/15/21 10:15 Zinc Sulfate 220 Mg Cap PO 220 mg BID KYLE Administration Ziprasidone 20 mg 03/14/21 11:18 Ziprasidone Mesylate 20 Mg Vial IM Q6H PRN Agitation Zolpidem Tartrate 5 mg 03/13/21 17:55 03/13/21 21:16 Zolpidem 5 Mg Tab PO 5 mg QHS PRN Administration Sleep Nutrition/Malnutrition Assess - Dietary Evaluation Nutrition/Malnutrition Findings: Nutrition Notes Start: 03/02/21 10:10 Freq: Status: Active Protocol: Document 03/13/21 17:18 JAYLAN (Rec: 03/13/21 17:22 JAYLAN [id number]) Nutrition Notes Initial or Follow up Reassessment Other Pertinent Diagnosis pneu, AMS, COVID(+) Current Diet Cardiac Labs/Tests POC Glu range: 228-287 Pertinent Medications reviewed Height 5 ft 10 in Weight 131 kg [place] Body Weight (kg) 75.45 BMI 41.4 Subjective/Other Information Diet advanced last pm; no intakes recorded yet. Pt refused BiPap this am; on high -flow oxygen. Unable to speak with pt today. Burn Absent Trauma Absent #1 Nutrition Diagnosis Inadequate oral intake Diagnosis Progress(for reassessment Continues documentation) Is patient on ventilator? No Is Patient Ambulatory and/or Out of Bed No REE-(Merrill-St. Jeor-confined to bed) 2614.728 Kcal/Kg value to use for calculation 16 Approximate Energy Requirements Using 2096 kcal/Kg Calculation Used for Recommendations Kcal/kg Additional Notes Pro needs up to 2.5g/klg IBW: up to 189g/day Fluid needs 1ml/kcal Nutrition Intervention Change Diet Order: Add Consistent CHO modifier to current diet order Goal #1 PO tolerance Goal #2 PO intake to meet at least 75% energy and pro needs Follow-Up By: 03/15/21 Additional Comments F/U: intakes
--- NOTE | 2021-03-15 11:51 | Progress Note ---
Assessment and Plan Cultures: SARS CoV2 PCR: Positive MRSA nasal PCR: Positive 03/01/2021 blood culture: No growth 03/01/2021 urine culture: No growth 03/02/2021 tracheal aspirate: [place] albicans 03/06/2021 blood culture: no growth 03/06/2021 urine culture: No growth A/P: 51-year-old male with COPD, chronic respiratory failure, CHF, diabetes, DVT/PE, morbid obesity on anticoagulation was admitted to the hospital on 03/01/2021 with altered mental status and shortness of breath: #Bilateral pneumonia: secondary to COVID-19. Completed empiric antibiotics. #Acute hypoxic respiratory failure: Now extubated, on high flow nasal cannula #Morbid obesity #Acute on chronic CHF #Transaminitis: Likely from COVID-19. Elevated LFTs with elevated alkaline phosphatase: RUQ ultrasound did not reveal any evidence of cholelithiasis, cholecystitis or choledocholithiasis. #Acute RLE DVT: On anticoagulation Recs: -IV/PO Dexamethasone 10 mg daily x 10 days, higher dose due to morbid obesity. Ending 03/15/2021 -Completed Remdesivir -Completed empiric antibiotics -on anticoagulation Kamar Schrader MD [facility] ([facility] O: [phone] F: [phone] Subjective Date of service: 03/15/21 Principal diagnosis: Ac hypoxemic resp failure; NSTEMI; ALPHONSO; Sepsis; PNA; CHF; DM II; AMS Interval history: Afebrile, normal white count. Imaging personally reviewed: Chest x-ray: No significant change, stable bibasilar densities. Objective - Exam Narrative Exam: Physical exam deferred to reduce risk of transmission of COVID-19. Please refer to primary team's note. - Constitutional Vitals: Vital Signs Temp Pulse Resp BP Pulse Ox 99.1 F 91 H 19 101/60 99 03/15/21 11:41 03/15/21 10:00 03/15/21 10:00 03/15/21 10:00 03/15/21 10:00 Temperature -Last 24 Hours Temperature 99.1 F Temperature 99.3 F Temperature 99.4 F Temperature 99.8 F Temperature 99.4 F - Labs CBC & Chem 7: 03/15/21 05:00 03/15/21 05:00 Labs: Abnormal lab results 03/15/21 03/15/21 03/15/21 Range/Units 00:34 05:00 05:00 RBC 2.40 L (3.65-5.03) M/mm3 Hgb 7.8 L (11.8-15.2) gm/dl Hct 23.6 L (35.5-45.6) % MCV 99 H (84-94) fl MCH 33 H (28-32) pg RDW 18.3 H (13.2-15.2) % Creatinine 0.6 L (0.8-1.3) mg/dL Glucose 238 H (75-100) mg/dL POC Glucose 287 H (70-105) mg/dL Calcium 8.0 L (8.4-10.2) mg/dL Total Bilirubin 1.50 H (0.1-1.2) mg/dL AST 189 H (5-40) units/L ALT 208 H (7-56) units/L Alkaline Phosphatase 659 H (35-129) units/L Total Protein 5.1 L (6.3-8.2) g/dL Albumin 2.1 L (3.9-5) g/dL 03/15/21 03/15/21 Range/Units 05:05 11:37 RBC (3.65-5.03) M/mm3 Hgb (11.8-15.2) gm/dl Hct (35.5-45.6) % MCV (84-94) fl MCH (28-32) pg RDW (13.2-15.2) % Creatinine (0.8-1.3) mg/dL Glucose (75-100) mg/dL POC Glucose 238 H 236 H (70-105) mg/dL Calcium (8.4-10.2) mg/dL Total Bilirubin (0.1-1.2) mg/dL AST (5-40) units/L ALT (7-56) units/L Alkaline Phosphatase (35-129) units/L Total Protein (6.3-8.2) g/dL Albumin (3.9-5) g/dL
--- NOTE | 2021-03-15 13:13 | Progress Note ---
Assessment and Plan Acute hypoxemic respiratory failure NSTEMI Acute kidney injury Severe sepsis Bilateral pneumonia H/O congestive heart failure Diabetes type 2 Acute encephalopathy Elevated serum transaminases Anemia that is microcytic Leukocytosis Metabolic acidosis Lactic acidosis - follow repeat COVID-19 test - follow repeat CXR - remains critically ill - continue care as below otherwise; - Psychiatry evaluation ongoing - cardiology evaluation ongoing - continue encouraging scheduled BIPAP qhs for alveolar recruitment / KAM (he refused last night) - continue daytime Vapotherm HFNC - s/p anti-infective's per ID recommendations (Vancomycin, Levaquin) - continue full dose Lovenox re: VTE - continue to wean supplemental oxygen for target O2 sat's > 92% acutely - aspiration precautions - continue bronchodilators with pulmonary hygiene per RT - wean per pulmonary driven protocols otherwise - continue accuchecks with glycemic control per SSI (While critically ill target blood glucose of 140-180 mg/dL; avoid hypoglycemia) - avoid nephrotoxins, renally dose all medications - continue to avoid benzodiazepine's, reduce the possibility of delirium - prn analgesia per pain score - Maintenance of sleep-wake cycle, avoid delirium - G.I. & VTE prophylaxis - PT/OT/ROM exercises - continue mobility protocols for pressure ulcer prophylaxis - Monitor hemodynamics closely - continue other care per attending / other consultants - discharge planning ongoing concurrently COVID SPECIFIC INTERVENTIONS - continue contact and airborne isolation - Remdesivir as per ID/Pulmonary developed protocols (received) - started systemic steroids for severe COVID-19 infection empirically - follow repeat COVID tests results - started zinc and vitamin C supplementation [id number] test positive - get & monitor inflammatory markers per facility protocol - ferritin, Ddimer, CRP (if test +ve) - therapeutic anticoagulation per system Protocol based on d-dimer and clinical considerations (On full dose Lovenox for VTE) .... Re-evaluate in am & prn CONDITION: CRITICAL PROGNOSIS: GUARDED CODE STATUS: FULL CODE The high probability of a clinically significant, sudden or life-threatening deterioration of the [respiratory, cardiovascular & neurologic] system(s) required my full and direct attention, intervention and personal management. The aggregate critical care time was [32] minutes without overlap. Time includes spent on; [x] Data Review and interpretation [x] Patient assessment and monitoring of vital signs [x] Documentation [x] Medication orders and management Subjective Date of service: 03/15/21 Principal diagnosis: Ac hypoxemic resp failure; NSTEMI; ALPHONSO; Sepsis; PNA; CHF; DM II; AMS Interval history: Patient is seen today for: Acute hypoxemic respiratory failure; NSTEMI; ALPHONSO; Severe sepsis; Pneumonia; CHF; DM II; Acute encephalopathy Seen and examined at bedside; 24hour events reviewed; nursing and respiratory care staff consulted; no adverse overnight events reported to me; resting peacefully in bed; still with some delirium; remains on HFNC with FiO2 at 60% & 25 Liter flow; No N/V/F/C Objective Vital Signs - 12hr 03/15/21 03/15/21 03/15/21 02:00 02:11 03:00 Temperature Pulse Rate 96 H 93 H Pulse Rate [ From Monitor] Respiratory 19 19 Rate Blood Pressure 151/80 149/82 O2 Sat by Pulse 100 100 100 Oximetry 03/15/21 03/15/21 03/15/21 03:16 04:00 05:00 Temperature 99.4 F Pulse Rate 92 H 92 H Pulse Rate [ From Monitor] Respiratory 18 19 Rate Blood Pressure 135/81 139/85 O2 Sat by Pulse 100 100 Oximetry 03/15/21 03/15/21 03/15/21 06:01 07:00 07:22 Temperature Pulse Rate 87 99 H Pulse Rate [ From Monitor] Respiratory 17 18 Rate Blood Pressure 116/65 157/94 O2 Sat by Pulse 100 100 100 Oximetry 03/15/21 03/15/21 03/15/21 07:37 08:00 08:16 Temperature 99.3 F Pulse Rate 92 H 95 H Pulse Rate [ 92 H From Monitor] Respiratory 20 Rate Blood Pressure 130/64 130/64 O2 Sat by Pulse 99 Oximetry 03/15/21 03/15/21 03/15/21 09:00 10:00 11:30 Temperature Pulse Rate 96 H 91 H Pulse Rate [ From Monitor] Respiratory 18 19 Rate Blood Pressure 91/55 101/60 O2 Sat by Pulse 99 99 100 Oximetry 03/15/21 11:41 Temperature 99.1 F Pulse Rate Pulse Rate [ From Monitor] Respiratory Rate Blood Pressure O2 Sat by Pulse Oximetry Constitutional: no acute distress, other (middle aged obese male with mildly increased respiratory effort at rest) Eyes: non-icteric ENT: oropharynx moist, other (extubated) Neck: supple, no lymphadenopathy, no JVD, other (large circumference) Effort: mildly labored Ascultation: Bilateral: diminished breath sounds, rhonchi (posterior bases) Percussion: Bilateral: not dull Cardiovascular: regular rate and rhythm Gastrointestinal: normoactive bowel sounds, soft, non-tender, non-distended (protuberant) Integumentary: normal Extremities: no cyanosis, pulses normal, no ischemia or petechiae, edema (trace) Neurologic: non-focal exam (grossly), pupils equal and round, CN II-XII normal, motor strength normal and Psychiatric: other (delirious) CBC and BMP: 03/18/21 07:53 03/18/21 07:53 ABG, PT/INR, D-dimer: ABG ABG pH 7.487 (7.320-7.450) H 03/10/21 12:33 POC ABG pCO2 40.4 mmHg (32.0-48.0) 03/10/21 12:33 POC ABG pO2 62.1 mmHg (83-108) L 03/10/21 12:33 POC ABG HCO3 29.9 03/10/21 12:33 ABG O2 Saturation 90.2 (0-100) 03/10/21 12:33 PT/INR, D-dimer PT 15.6 Sec. (12.2-14.9) H 03/04/21 10:17 INR 1.18 (0.87-1.13) H 03/04/21 10:17 D-Dimer 475.91 ng/mlDDU (0-234) H 03/14/21 03:40 Abnormal lab findings: Abnormal Labs 03/01/21 03/01/21 03/01/21 19:15 19:21 19:21 WBC 12.7 H RBC 2.77 L Hgb 9.1 L Hct 27.7 L MCV 100 H MCH 33 H RDW 18.0 H Seg Neutrophils % Monocytes % (Manual) 17.0 H Seg Neutrophils # Monocytes # (Manual) 2.2 H PT INR D-Dimer Heparin Anti-Xa Level ABG pH POC ABG pCO2 POC ABG pO2 64.9 L ABG Hemoglobin 9.3 L ABG Oxyhemoglobin 93.0 L ABG Sodium 133.8 L ABG Potassium ABG Chloride 97.0 L ABG Glucose 191 H Carboxyhemoglobin Sodium Potassium Chloride Carbon Dioxide BUN Creatinine Glucose POC Glucose Lactic Acid Calcium Phosphorus Magnesium Ferritin Total Bilirubin Direct Bilirubin AST ALT Alkaline Phosphatase Ammonia Lactate Dehydrogenase Troponin T 0.493 H* C-Reactive Protein Total Protein Albumin Triglycerides 400 H Cholesterol 232 H HDL Cholesterol 22 L Lipase Arterial Blood Glucose 191 H Arterial Blood Ionized Calcium 4.4 L Urine WBC (Auto) Salicylates Acetaminophen Coronavirus (PCR) 03/01/21 03/01/21 03/01/21 19:21 19:21 19:21 WBC RBC Hgb Hct MCV MCH RDW Seg Neutrophils % Monocytes % (Manual) Seg Neutrophils # Monocytes # (Manual) PT 16.6 H INR 1.28 H D-Dimer Heparin Anti-Xa Level ABG pH POC ABG pCO2 POC ABG pO2 ABG Hemoglobin ABG Oxyhemoglobin ABG Sodium ABG Potassium ABG Chloride ABG Glucose Carboxyhemoglobin Sodium 132 L Potassium Chloride 92.2 L Carbon Dioxide BUN 43 H Creatinine 2.4 H Glucose 190 H POC Glucose Lactic Acid 2.90 H* Calcium Phosphorus Magnesium Ferritin Total Bilirubin 1.60 H Direct Bilirubin 1.2 H AST 275 H ALT 156 H Alkaline Phosphatase 282 H Ammonia Lactate Dehydrogenase Troponin T C-Reactive Protein Total Protein 5.8 L Albumin 2.6 L Triglycerides Cholesterol HDL Cholesterol Lipase 120 H Arterial Blood Glucose Arterial Blood Ionized Calcium Urine WBC (Auto) Salicylates Acetaminophen Coronavirus (PCR) 03/01/21 03/01/21 03/01/21 19:21 19:21 19:21 WBC RBC Hgb Hct MCV MCH RDW Seg Neutrophils % Monocytes % (Manual) Seg Neutrophils # Monocytes # (Manual) PT INR D-Dimer Heparin Anti-Xa Level ABG pH POC ABG pCO2 POC ABG pO2 ABG Hemoglobin ABG Oxyhemoglobin ABG Sodium ABG Potassium ABG Chloride ABG Glucose Carboxyhemoglobin Sodium Potassium Chloride Carbon Dioxide BUN Creatinine Glucose POC Glucose Lactic Acid Calcium Phosphorus Magnesium Ferritin Total Bilirubin Direct Bilirubin AST ALT Alkaline Phosphatase Ammonia 71.0 H Lactate Dehydrogenase Troponin T C-Reactive Protein Total Protein Albumin Triglycerides Cholesterol HDL Cholesterol Lipase Arterial Blood Glucose Arterial Blood Ionized Calcium Urine WBC (Auto) Salicylates < 0.3 L Acetaminophen 5.0 L Coronavirus (PCR) 03/01/21 03/01/21 03/02/21 20:55 20:55 00:01 WBC RBC Hgb Hct MCV MCH RDW Seg Neutrophils % Monocytes % (Manual) Seg Neutrophils # Monocytes # (Manual) PT INR D-Dimer Heparin Anti-Xa Level ABG pH 7.234 L POC ABG pCO2 POC ABG pO2 240.5 H ABG Hemoglobin 9.3 L ABG Oxyhemoglobin 99.1 H ABG Sodium 135.3 L ABG Potassium ABG Chloride ABG Glucose 286 H Carboxyhemoglobin 0.3 L Sodium Potassium Chloride Carbon Dioxide BUN Creatinine Glucose POC Glucose Lactic Acid 4.30 H* Calcium Phosphorus Magnesium Ferritin Total Bilirubin Direct Bilirubin AST ALT Alkaline Phosphatase Ammonia Lactate Dehydrogenase Troponin T 0.484 H* C-Reactive Protein Total Protein Albumin Triglycerides Cholesterol HDL Cholesterol Lipase Arterial Blood Glucose 286 H Arterial Blood Ionized Calcium Urine WBC (Auto) Salicylates Acetaminophen Coronavirus (PCR) 03/02/21 03/02/21 03/02/21 03:42 05:23 06:35 WBC RBC Hgb Hct MCV MCH RDW Seg Neutrophils % Monocytes % (Manual) Seg Neutrophils # Monocytes # (Manual) PT INR D-Dimer Heparin Anti-Xa Level ABG pH 7.225 L POC ABG pCO2 POC ABG pO2 181.8 H ABG Hemoglobin 9.4 L ABG Oxyhemoglobin 98.6 H ABG Sodium 132.1 L ABG Potassium 5.0 H ABG Chloride ABG Glucose 454 H Carboxyhemoglobin 0.3 L Sodium Potassium Chloride Carbon Dioxide BUN Creatinine Glucose POC Glucose 410 H Lactic Acid 7.50 H* Calcium Phosphorus Magnesium Ferritin Total Bilirubin Direct Bilirubin AST ALT Alkaline Phosphatase Ammonia Lactate Dehydrogenase Troponin T C-Reactive Protein Total Protein Albumin Triglycerides Cholesterol HDL Cholesterol Lipase Arterial Blood Glucose 454 H Arterial Blood Ionized Calcium 4.2 L Urine WBC (Auto) Salicylates Acetaminophen Coronavirus (PCR) 03/02/21 03/02/21 03/02/21 10:48 10:48 10:48 WBC RBC Hgb Hct MCV MCH RDW Seg Neutrophils % Monocytes % (Manual) Seg Neutrophils # Monocytes # (Manual) PT INR D-Dimer Heparin Anti-Xa Level ABG pH POC ABG pCO2 POC ABG pO2 ABG Hemoglobin ABG Oxyhemoglobin ABG Sodium ABG Potassium ABG Chloride ABG Glucose Carboxyhemoglobin Sodium 132 L Potassium Chloride 93.3 L Carbon Dioxide 20 L BUN 46 H Creatinine 1.9 H Glucose 503 H* POC Glucose Lactic Acid 3.40 H* Calcium 7.9 L Phosphorus 5.80 H Magnesium Ferritin Total Bilirubin Direct Bilirubin AST ALT Alkaline Phosphatase Ammonia Lactate Dehydrogenase Troponin T C-Reactive Protein Total Protein Albumin Triglycerides Cholesterol HDL Cholesterol Lipase Arterial Blood Glucose Arterial Blood Ionized Calcium Urine WBC (Auto) Salicylates Acetaminophen Coronavirus (PCR) 03/02/21 03/02/21 03/02/21 11:23 11:38 15:33 WBC RBC Hgb Hct MCV MCH RDW Seg Neutrophils % Monocytes % (Manual) Seg Neutrophils # Monocytes # (Manual) PT INR D-Dimer Heparin Anti-Xa Level ABG pH 7.318 L POC ABG pCO2 POC ABG pO2 ABG Hemoglobin 9.2 L ABG Oxyhemoglobin ABG Sodium 133.2 L ABG Potassium ABG Chloride ABG Glucose 504 H Carboxyhemoglobin 0.3 L Sodium Potassium Chloride Carbon Dioxide BUN Creatinine Glucose POC Glucose 468 H 445 H Lactic Acid Calcium Phosphorus Magnesium Ferritin Total Bilirubin Direct Bilirubin AST ALT Alkaline Phosphatase Ammonia Lactate Dehydrogenase Troponin T C-Reactive Protein Total Protein Albumin Triglycerides Cholesterol HDL Cholesterol Lipase Arterial Blood Glucose 504 H Arterial Blood Ionized Calcium 4.2 L Urine WBC (Auto) Salicylates Acetaminophen Coronavirus (PCR) 03/02/21 03/02/21 03/02/21 16:28 16:28 16:28 WBC RBC Hgb 8.8 L Hct 26.0 L MCV MCH RDW Seg Neutrophils % Monocytes % (Manual) Seg Neutrophils # Monocytes # (Manual) PT 15.2 H INR 1.14 H D-Dimer Heparin Anti-Xa Level ABG pH POC ABG pCO2 POC ABG pO2 ABG Hemoglobin ABG Oxyhemoglobin ABG Sodium ABG Potassium ABG Chloride ABG Glucose Carboxyhemoglobin Sodium 135 L Potassium Chloride 93.8 L Carbon Dioxide BUN 48 H Creatinine 1.8 H Glucose 454 H POC Glucose Lactic Acid Calcium 7.6 L Phosphorus Magnesium Ferritin Total Bilirubin Direct Bilirubin AST ALT Alkaline Phosphatase Ammonia Lactate Dehydrogenase Troponin T C-Reactive Protein Total Protein Albumin Triglycerides Cholesterol HDL Cholesterol Lipase Arterial Blood Glucose Arterial Blood Ionized Calcium Urine WBC (Auto) Salicylates Acetaminophen Coronavirus (PCR) 03/02/21 03/02/21 03/02/21 17:39 18:52 20:09 WBC RBC Hgb Hct MCV MCH RDW Seg Neutrophils % Monocytes % (Manual) Seg Neutrophils # Monocytes # (Manual) PT INR D-Dimer Heparin Anti-Xa Level ABG pH POC ABG pCO2 POC ABG pO2 ABG Hemoglobin ABG Oxyhemoglobin ABG Sodium ABG Potassium ABG Chloride ABG Glucose Carboxyhemoglobin Sodium Potassium Chloride Carbon Dioxide BUN Creatinine Glucose POC Glucose 404 H 357 H 347 H Lactic Acid Calcium Phosphorus Magnesium Ferritin Total Bilirubin Direct Bilirubin AST ALT Alkaline Phosphatase Ammonia Lactate Dehydrogenase Troponin T C-Reactive Protein Total Protein Albumin Triglycerides Cholesterol HDL Cholesterol Lipase Arterial Blood Glucose Arterial Blood Ionized Calcium Urine WBC (Auto) Salicylates Acetaminophen Coronavirus (PCR) 03/02/21 03/02/21 03/02/21 21:03 22:00 22:55 WBC RBC Hgb Hct MCV MCH RDW Seg Neutrophils % Monocytes % (Manual) Seg Neutrophils # Monocytes # (Manual) PT INR D-Dimer Heparin Anti-Xa Level ABG pH POC ABG pCO2 POC ABG pO2 ABG Hemoglobin ABG Oxyhemoglobin ABG Sodium ABG Potassium ABG Chloride ABG Glucose Carboxyhemoglobin Sodium Potassium Chloride Carbon Dioxide BUN Creatinine Glucose POC Glucose 307 H 270 H 237 H Lactic Acid Calcium Phosphorus Magnesium Ferritin Total Bilirubin Direct Bilirubin AST ALT Alkaline Phosphatase Ammonia Lactate Dehydrogenase Troponin T C-Reactive Protein Total Protein Albumin Triglycerides Cholesterol HDL Cholesterol Lipase Arterial Blood Glucose Arterial Blood Ionized Calcium Urine WBC (Auto) Salicylates Acetaminophen Coronavirus (PCR) 03/03/21 03/03/21 03/03/21 00:02 00:57 02:01 WBC RBC Hgb Hct MCV MCH RDW Seg Neutrophils % Monocytes % (Manual) Seg Neutrophils # Monocytes # (Manual) PT INR D-Dimer Heparin Anti-Xa Level ABG pH POC ABG pCO2 POC ABG pO2 ABG Hemoglobin ABG Oxyhemoglobin ABG Sodium ABG Potassium ABG Chloride ABG Glucose Carboxyhemoglobin Sodium Potassium Chloride Carbon Dioxide BUN Creatinine Glucose POC Glucose 252 H 214 H 261 H Lactic Acid Calcium Phosphorus Magnesium Ferritin Total Bilirubin Direct Bilirubin AST ALT Alkaline Phosphatase Ammonia Lactate Dehydrogenase Troponin T C-Reactive Protein Total Protein Albumin Triglycerides Cholesterol HDL Cholesterol Lipase Arterial Blood Glucose Arterial Blood Ionized Calcium Urine WBC (Auto) Salicylates Acetaminophen Coronavirus (PCR) 03/03/21 03/03/21 03/03/21 03:07 03:10 03:50 WBC 13.7 H RBC 2.69 L Hgb 8.7 L Hct 26.9 L MCV 100 H MCH RDW 18.5 H Seg Neutrophils % 79.0 H Monocytes % (Manual) Seg Neutrophils # 10.8 H Monocytes # (Manual) PT INR D-Dimer Heparin Anti-Xa Level ABG pH POC ABG pCO2 50.9 H POC ABG pO2 81.9 L ABG Hemoglobin 8.7 L ABG Oxyhemoglobin ABG Sodium 134.2 L ABG Potassium ABG Chloride 96.0 L ABG Glucose 279 H Carboxyhemoglobin 0.4 L Sodium Potassium Chloride Carbon Dioxide BUN Creatinine Glucose POC Glucose 276 H Lactic Acid Calcium Phosphorus Magnesium Ferritin Total Bilirubin Direct Bilirubin AST ALT Alkaline Phosphatase Ammonia Lactate Dehydrogenase Troponin T C-Reactive Protein Total Protein Albumin Triglycerides Cholesterol HDL Cholesterol Lipase Arterial Blood Glucose 279 H Arterial Blood Ionized Calcium 3.9 L Urine WBC (Auto) Salicylates Acetaminophen Coronavirus (PCR) 03/03/21 03/03/21 03/03/21 03:50 04:06 04:32 WBC RBC Hgb Hct MCV MCH RDW Seg Neutrophils % Monocytes % (Manual) Seg Neutrophils # Monocytes # (Manual) PT INR D-Dimer Heparin Anti-Xa Level ABG pH POC ABG pCO2 POC ABG pO2 ABG Hemoglobin ABG Oxyhemoglobin ABG Sodium ABG Potassium ABG Chloride ABG Glucose Carboxyhemoglobin Sodium Potassium Chloride 94.2 L Carbon Dioxide BUN 45 H Creatinine 1.9 H Glucose 261 H POC Glucose 256 H Lactic Acid Calcium 7.3 L Phosphorus Magnesium Ferritin Total Bilirubin Direct Bilirubin 0.9 H AST 208 H ALT 148 H Alkaline Phosphatase 251 H Ammonia Lactate Dehydrogenase Troponin T C-Reactive Protein Total Protein 5.5 L Albumin 2.4 L Triglycerides Cholesterol HDL Cholesterol Lipase Arterial Blood Glucose Arterial Blood Ionized Calcium Urine WBC (Auto) Salicylates Acetaminophen Coronavirus (PCR) 03/03/21 03/03/21 03/03/21 05:23 06:06 07:07 WBC RBC Hgb Hct MCV MCH RDW Seg Neutrophils % Monocytes % (Manual) Seg Neutrophils # Monocytes # (Manual) PT INR D-Dimer Heparin Anti-Xa Level ABG pH POC ABG pCO2 POC ABG pO2 ABG Hemoglobin ABG Oxyhemoglobin ABG Sodium ABG Potassium ABG Chloride ABG Glucose Carboxyhemoglobin Sodium Potassium Chloride Carbon Dioxide BUN Creatinine Glucose POC Glucose 214 H 249 H 237 H Lactic Acid Calcium Phosphorus Magnesium Ferritin Total Bilirubin Direct Bilirubin AST ALT Alkaline Phosphatase Ammonia Lactate Dehydrogenase Troponin T C-Reactive Protein Total Protein Albumin Triglycerides Cholesterol HDL Cholesterol Lipase Arterial Blood Glucose Arterial Blood Ionized Calcium Urine WBC (Auto) Salicylates Acetaminophen Coronavirus (PCR) 03/03/21 03/03/21 03/03/21 07:58 08:58 09:52 WBC RBC Hgb Hct MCV MCH RDW Seg Neutrophils % Monocytes % (Manual) Seg Neutrophils # Monocytes # (Manual) PT INR D-Dimer Heparin Anti-Xa Level ABG pH POC ABG pCO2 POC ABG pO2 ABG Hemoglobin ABG Oxyhemoglobin ABG Sodium ABG Potassium ABG Chloride ABG Glucose Carboxyhemoglobin Sodium Potassium Chloride Carbon Dioxide BUN Creatinine Glucose POC Glucose 227 H 215 H 207 H Lactic Acid Calcium Phosphorus Magnesium Ferritin Total Bilirubin Direct Bilirubin AST ALT Alkaline Phosphatase Ammonia Lactate Dehydrogenase Troponin T C-Reactive Protein Total Protein Albumin Triglycerides Cholesterol HDL Cholesterol Lipase Arterial Blood Glucose Arterial Blood Ionized Calcium Urine WBC (Auto) Salicylates Acetaminophen Coronavirus (PCR) 03/03/21 03/03/21 03/03/21 10:55 11:44 12:53 WBC RBC Hgb Hct MCV MCH RDW Seg Neutrophils % Monocytes % (Manual) Seg Neutrophils # Monocytes # (Manual) PT INR D-Dimer Heparin Anti-Xa Level ABG pH POC ABG pCO2 POC ABG pO2 ABG Hemoglobin ABG Oxyhemoglobin ABG Sodium ABG Potassium ABG Chloride ABG Glucose Carboxyhemoglobin Sodium Potassium Chloride Carbon Dioxide BUN Creatinine Glucose POC Glucose 198 H 210 H 203 H Lactic Acid Calcium Phosphorus Magnesium Ferritin Total Bilirubin Direct Bilirubin AST ALT Alkaline Phosphatase Ammonia Lactate Dehydrogenase Troponin T C-Reactive Protein Total Protein Albumin Triglycerides Cholesterol HDL Cholesterol Lipase Arterial Blood Glucose Arterial Blood Ionized Calcium Urine WBC (Auto) Salicylates Acetaminophen Coronavirus (PCR) 03/03/21 03/03/21 03/03/21 13:53 14:58 15:23 WBC RBC Hgb Hct MCV MCH RDW Seg Neutrophils % Monocytes % (Manual) Seg Neutrophils # Monocytes # (Manual) PT INR D-Dimer Heparin Anti-Xa Level ABG pH POC ABG pCO2 POC ABG pO2 ABG Hemoglobin ABG Oxyhemoglobin ABG Sodium ABG Potassium ABG Chloride ABG Glucose Carboxyhemoglobin Sodium Potassium Chloride Carbon Dioxide BUN Creatinine Glucose POC Glucose 210 H 187 H Lactic Acid 3.10 H* Calcium Phosphorus Magnesium Ferritin Total Bilirubin Direct Bilirubin AST ALT Alkaline Phosphatase Ammonia Lactate Dehydrogenase Troponin T C-Reactive Protein Total Protein Albumin Triglycerides Cholesterol HDL Cholesterol Lipase Arterial Blood Glucose Arterial Blood Ionized Calcium Urine WBC (Auto) Salicylates Acetaminophen Coronavirus (PCR) 03/03/21 03/03/21 03/03/21 15:51 16:25 16:53 WBC RBC Hgb Hct MCV MCH RDW Seg Neutrophils % Monocytes % (Manual) Seg Neutrophils # Monocytes # (Manual) PT INR D-Dimer Heparin Anti-Xa Level ABG pH POC ABG pCO2 POC ABG pO2 ABG Hemoglobin ABG Oxyhemoglobin ABG Sodium ABG Potassium ABG Chloride ABG Glucose Carboxyhemoglobin Sodium Potassium Chloride 91.0 L Carbon Dioxide 34 H BUN 47 H Creatinine 1.7 H Glucose 190 H POC Glucose 182 H 179 H Lactic Acid Calcium 7.6 L Phosphorus Magnesium Ferritin Total Bilirubin Direct Bilirubin AST ALT Alkaline Phosphatase Ammonia Lactate Dehydrogenase Troponin T C-Reactive Protein Total Protein Albumin Triglycerides Cholesterol HDL Cholesterol Lipase Arterial Blood Glucose Arterial Blood Ionized Calcium Urine WBC (Auto) Salicylates Acetaminophen Coronavirus (PCR) 03/03/21 03/03/21 03/03/21 17:55 19:37 20:57 WBC RBC Hgb Hct MCV MCH RDW Seg Neutrophils % Monocytes % (Manual) Seg Neutrophils # Monocytes # (Manual) PT INR D-Dimer Heparin Anti-Xa Level ABG pH POC ABG pCO2 POC ABG pO2 ABG Hemoglobin ABG Oxyhemoglobin ABG Sodium ABG Potassium ABG Chloride ABG Glucose Carboxyhemoglobin Sodium Potassium Chloride Carbon Dioxide BUN Creatinine Glucose POC Glucose 185 H 174 H 175 H Lactic Acid Calcium Phosphorus Magnesium Ferritin Total Bilirubin Direct Bilirubin AST ALT Alkaline Phosphatase Ammonia Lactate Dehydrogenase Troponin T C-Reactive Protein Total Protein Albumin Triglycerides Cholesterol HDL Cholesterol Lipase Arterial Blood Glucose Arterial Blood Ionized Calcium Urine WBC (Auto) Salicylates Acetaminophen Coronavirus (PCR) 03/03/21 03/03/21 03/03/21 22:02 22:56 23:10 WBC RBC Hgb Hct MCV MCH RDW Seg Neutrophils % Monocytes % (Manual) Seg Neutrophils # Monocytes # (Manual) PT INR D-Dimer Heparin Anti-Xa Level 0.75 H ABG pH POC ABG pCO2 POC ABG pO2 ABG Hemoglobin ABG Oxyhemoglobin ABG Sodium ABG Potassium ABG Chloride ABG Glucose Carboxyhemoglobin Sodium Potassium Chloride Carbon Dioxide BUN Creatinine Glucose POC Glucose 170 H 160 H Lactic Acid Calcium Phosphorus Magnesium Ferritin Total Bilirubin Direct Bilirubin AST ALT Alkaline Phosphatase Ammonia Lactate Dehydrogenase Troponin T C-Reactive Protein Total Protein Albumin Triglycerides Cholesterol HDL Cholesterol Lipase Arterial Blood Glucose Arterial Blood Ionized Calcium Urine WBC (Auto) Salicylates Acetaminophen Coronavirus (PCR) 03/03/21 03/04/21 03/04/21 23:42 00:52 01:55 WBC RBC Hgb Hct MCV MCH RDW Seg Neutrophils % Monocytes % (Manual) Seg Neutrophils # Monocytes # (Manual) PT INR D-Dimer Heparin Anti-Xa Level ABG pH POC ABG pCO2 POC ABG pO2 ABG Hemoglobin ABG Oxyhemoglobin ABG Sodium ABG Potassium ABG Chloride ABG Glucose Carboxyhemoglobin Sodium Potassium Chloride Carbon Dioxide BUN Creatinine Glucose POC Glucose 161 H 167 H 119 H Lactic Acid Calcium Phosphorus Magnesium Ferritin Total Bilirubin Direct Bilirubin AST ALT Alkaline Phosphatase Ammonia Lactate Dehydrogenase Troponin T C-Reactive Protein Total Protein Albumin Triglycerides Cholesterol HDL Cholesterol Lipase Arterial Blood Glucose Arterial Blood Ionized Calcium Urine WBC (Auto) Salicylates Acetaminophen Coronavirus (PCR) 03/04/21 03/04/21 03/04/21 02:58 03:47 04:03 WBC RBC Hgb Hct MCV MCH RDW Seg Neutrophils % Monocytes % (Manual) Seg Neutrophils # Monocytes # (Manual) PT INR D-Dimer Heparin Anti-Xa Level ABG pH POC ABG pCO2 57.3 H POC ABG pO2 63.7 L ABG Hemoglobin 8.4 L ABG Oxyhemoglobin 88.6 L ABG Sodium 132.5 L ABG Potassium 3.2 L ABG Chloride 94.0 L ABG Glucose 129 H Carboxyhemoglobin Sodium Potassium Chloride Carbon Dioxide BUN Creatinine Glucose POC Glucose 111 H 122 H Lactic Acid Calcium Phosphorus Magnesium Ferritin Total Bilirubin Direct Bilirubin AST ALT Alkaline Phosphatase Ammonia Lactate Dehydrogenase Troponin T C-Reactive Protein Total Protein Albumin Triglycerides Cholesterol HDL Cholesterol Lipase Arterial Blood Glucose 129 H Arterial Blood Ionized Calcium 3.8 L Urine WBC (Auto) Salicylates Acetaminophen Coronavirus (PCR) 03/04/21 03/04/21 03/04/21 05:15 05:26 05:26 WBC RBC Hgb 7.9 L Hct 23.7 L MCV MCH RDW Seg Neutrophils % Monocytes % (Manual) Seg Neutrophils # Monocytes # (Manual) PT INR D-Dimer Heparin Anti-Xa Level ABG pH POC ABG pCO2 POC ABG pO2 ABG Hemoglobin ABG Oxyhemoglobin ABG Sodium ABG Potassium ABG Chloride ABG Glucose Carboxyhemoglobin Sodium Potassium Chloride Carbon Dioxide BUN Creatinine Glucose POC Glucose 127 H Lactic Acid Calcium Phosphorus Magnesium Ferritin Total Bilirubin Direct Bilirubin 0.6 H AST 123 H ALT 105 H Alkaline Phosphatase 232 H Ammonia Lactate Dehydrogenase Troponin T C-Reactive Protein Total Protein 4.8 L Albumin 2.2 L Triglycerides Cholesterol HDL Cholesterol Lipase Arterial Blood Glucose Arterial Blood Ionized Calcium Urine WBC (Auto) Salicylates Acetaminophen Coronavirus (PCR) 03/04/21 03/04/21 03/04/21 05:26 06:01 06:53 WBC RBC Hgb Hct MCV MCH RDW Seg Neutrophils % Monocytes % (Manual) Seg Neutrophils # Monocytes # (Manual) PT INR D-Dimer Heparin Anti-Xa Level 0.71 H ABG pH POC ABG pCO2 POC ABG pO2 ABG Hemoglobin ABG Oxyhemoglobin ABG Sodium ABG Potassium ABG Chloride ABG Glucose Carboxyhemoglobin Sodium Potassium Chloride Carbon Dioxide BUN Creatinine Glucose POC Glucose 120 H 117 H Lactic Acid Calcium Phosphorus Magnesium Ferritin Total Bilirubin Direct Bilirubin AST ALT Alkaline Phosphatase Ammonia Lactate Dehydrogenase Troponin T C-Reactive Protein Total Protein Albumin Triglycerides Cholesterol HDL Cholesterol Lipase Arterial Blood Glucose Arterial Blood Ionized Calcium Urine WBC (Auto) Salicylates Acetaminophen Coronavirus (PCR) 03/04/21 03/04/21 03/04/21 07:57 10:17 10:17 WBC RBC 2.51 L Hgb 8.3 L Hct 25.3 L MCV 101 H MCH 33 H RDW 18.5 H Seg Neutrophils % Monocytes % (Manual) Seg Neutrophils # Monocytes # (Manual) PT INR D-Dimer Heparin Anti-Xa Level ABG pH POC ABG pCO2 POC ABG pO2 ABG Hemoglobin ABG Oxyhemoglobin ABG Sodium ABG Potassium ABG Chloride ABG Glucose Carboxyhemoglobin Sodium 136 L Potassium Chloride 93.1 L Carbon Dioxide 33 H BUN 46 H Creatinine 1.4 H Glucose 151 H POC Glucose 129 H Lactic Acid Calcium 7.5 L Phosphorus Magnesium Ferritin Total Bilirubin Direct Bilirubin AST 126 H ALT 100 H Alkaline Phosphatase 226 H Ammonia Lactate Dehydrogenase Troponin T C-Reactive Protein Total Protein 5.0 L Albumin 2.2 L Triglycerides Cholesterol HDL Cholesterol Lipase Arterial Blood Glucose Arterial Blood Ionized Calcium Urine WBC (Auto) Salicylates Acetaminophen Coronavirus (PCR) 03/04/21 03/04/21 03/04/21 10:17 10:17 11:26 WBC RBC Hgb Hct MCV MCH RDW Seg Neutrophils % Monocytes % (Manual) Seg Neutrophils # Monocytes # (Manual) PT 15.6 H INR 1.18 H D-Dimer Heparin Anti-Xa Level ABG pH POC ABG pCO2 POC ABG pO2 ABG Hemoglobin ABG Oxyhemoglobin ABG Sodium ABG Potassium ABG Chloride ABG Glucose Carboxyhemoglobin Sodium Potassium Chloride Carbon Dioxide BUN Creatinine Glucose POC Glucose 167 H Lactic Acid Calcium Phosphorus Magnesium Ferritin Total Bilirubin Direct Bilirubin AST ALT Alkaline Phosphatase Ammonia Lactate Dehydrogenase Troponin T C-Reactive Protein Total Protein Albumin Triglycerides Cholesterol HDL Cholesterol Lipase 78 H Arterial Blood Glucose Arterial Blood Ionized Calcium Urine WBC (Auto) Salicylates Acetaminophen Coronavirus (PCR) 03/04/21 03/04/21 03/04/21 13:04 16:26 17:58 WBC RBC Hgb 7.7 L Hct 23.2 L MCV MCH RDW Seg Neutrophils % Monocytes % (Manual) Seg Neutrophils # Monocytes # (Manual) PT INR D-Dimer Heparin Anti-Xa Level < 0.10 L ABG pH POC ABG pCO2 POC ABG pO2 ABG Hemoglobin ABG Oxyhemoglobin ABG Sodium ABG Potassium ABG Chloride ABG Glucose Carboxyhemoglobin Sodium Potassium Chloride Carbon Dioxide BUN Creatinine Glucose POC Glucose 167 H Lactic Acid Calcium Phosphorus Magnesium Ferritin Total Bilirubin Direct Bilirubin AST ALT Alkaline Phosphatase Ammonia Lactate Dehydrogenase Troponin T C-Reactive Protein Total Protein Albumin Triglycerides Cholesterol HDL Cholesterol Lipase Arterial Blood Glucose Arterial Blood Ionized Calcium Urine WBC (Auto) Salicylates Acetaminophen Coronavirus (PCR) 03/04/21 03/05/21 03/05/21 23:47 04:00 05:06 WBC RBC Hgb Hct MCV MCH RDW Seg Neutrophils % Monocytes % (Manual) Seg Neutrophils # Monocytes # (Manual) PT INR D-Dimer Heparin Anti-Xa Level ABG pH POC ABG pCO2 POC ABG pO2 129.1 H ABG Hemoglobin 8.3 L ABG Oxyhemoglobin ABG Sodium 131.4 L ABG Potassium ABG Chloride 95.0 L ABG Glucose 153 H Carboxyhemoglobin Sodium Potassium Chloride Carbon Dioxide BUN Creatinine Glucose POC Glucose 153 H 139 H Lactic Acid Calcium Phosphorus Magnesium Ferritin Total Bilirubin Direct Bilirubin AST ALT Alkaline Phosphatase Ammonia Lactate Dehydrogenase Troponin T C-Reactive Protein Total Protein Albumin Triglycerides Cholesterol HDL Cholesterol Lipase Arterial Blood Glucose 153 H Arterial Blood Ionized Calcium Urine WBC (Auto) Salicylates Acetaminophen Coronavirus (PCR) 03/05/21 03/05/21 03/05/21 11:43 13:35 13:35 WBC RBC 2.38 L Hgb 7.8 L Hct 23.8 L MCV 100 H MCH 33 H RDW 18.2 H Seg Neutrophils % Monocytes % (Manual) Seg Neutrophils # Monocytes # (Manual) PT INR D-Dimer Heparin Anti-Xa Level ABG pH POC ABG pCO2 POC ABG pO2 ABG Hemoglobin ABG Oxyhemoglobin ABG Sodium ABG Potassium ABG Chloride ABG Glucose Carboxyhemoglobin Sodium Potassium Chloride 94.4 L Carbon Dioxide BUN 49 H Creatinine 1.6 H Glucose 165 H POC Glucose 174 H Lactic Acid Calcium 7.5 L Phosphorus Magnesium Ferritin Total Bilirubin Direct Bilirubin AST ALT Alkaline Phosphatase Ammonia Lactate Dehydrogenase Troponin T C-Reactive Protein Total Protein Albumin Triglycerides Cholesterol HDL Cholesterol Lipase Arterial Blood Glucose Arterial Blood Ionized Calcium Urine WBC (Auto) Salicylates Acetaminophen Coronavirus (PCR) 03/05/21 03/05/21 03/05/21 17:57 21:27 Unknown WBC RBC Hgb Hct MCV MCH RDW Seg Neutrophils % Monocytes % (Manual) Seg Neutrophils # Monocytes # (Manual) PT INR D-Dimer Heparin Anti-Xa Level ABG pH POC ABG pCO2 POC ABG pO2 ABG Hemoglobin ABG Oxyhemoglobin ABG Sodium ABG Potassium ABG Chloride ABG Glucose Carboxyhemoglobin Sodium Potassium Chloride Carbon Dioxide BUN Creatinine Glucose POC Glucose 129 H 129 H Lactic Acid Calcium Phosphorus Magnesium Ferritin Total Bilirubin Direct Bilirubin AST ALT Alkaline Phosphatase Ammonia Lactate Dehydrogenase Troponin T C-Reactive Protein Total Protein Albumin Triglycerides Cholesterol HDL Cholesterol Lipase Arterial Blood Glucose Arterial Blood Ionized Calcium Urine WBC (Auto) Salicylates Acetaminophen Coronavirus (PCR) Positive A 03/06/21 03/06/21 03/06/21 03:30 04:30 05:20 WBC 15.2 H RBC 2.48 L Hgb 8.2 L Hct 24.9 L MCV 100 H MCH 33 H RDW 18.6 H Seg Neutrophils % 72.6 H Monocytes % (Manual) Seg Neutrophils # 11.1 H Monocytes # (Manual) PT INR D-Dimer Heparin Anti-Xa Level ABG pH POC ABG pCO2 49.7 H POC ABG pO2 65.1 L ABG Hemoglobin 9.1 L ABG Oxyhemoglobin 90.2 L ABG Sodium 131.2 L ABG Potassium ABG Chloride 96.0 L ABG Glucose 133 H Carboxyhemoglobin Sodium Potassium Chloride Carbon Dioxide BUN Creatinine Glucose POC Glucose Lactic Acid Calcium Phosphorus Magnesium Ferritin Total Bilirubin Direct Bilirubin AST ALT Alkaline Phosphatase Ammonia Lactate Dehydrogenase Troponin T C-Reactive Protein 27.90 H Total Protein Albumin Triglycerides Cholesterol HDL Cholesterol Lipase Arterial Blood Glucose 133 H Arterial Blood Ionized Calcium 4.2 L Urine WBC (Auto) Salicylates Acetaminophen Coronavirus (PCR) 03/06/21 03/06/21 03/06/21 05:20 05:30 11:52 WBC RBC Hgb Hct MCV MCH RDW Seg Neutrophils % Monocytes % (Manual) Seg Neutrophils # Monocytes # (Manual) PT INR D-Dimer Heparin Anti-Xa Level ABG pH POC ABG pCO2 POC ABG pO2 ABG Hemoglobin ABG Oxyhemoglobin ABG Sodium ABG Potassium ABG Chloride ABG Glucose Carboxyhemoglobin Sodium 135 L Potassium Chloride 94.5 L Carbon Dioxide BUN 49 H Creatinine Glucose 121 H POC Glucose 123 H 123 H Lactic Acid Calcium 7.3 L Phosphorus Magnesium 1.50 L Ferritin Total Bilirubin Direct Bilirubin AST 120 H ALT 74 H Alkaline Phosphatase 306 H Ammonia Lactate Dehydrogenase Troponin T C-Reactive Protein Total Protein 4.5 L Albumin 2.0 L Triglycerides Cholesterol HDL Cholesterol Lipase Arterial Blood Glucose Arterial Blood Ionized Calcium Urine WBC (Auto) Salicylates Acetaminophen Coronavirus (PCR) 03/06/21 03/06/21 03/06/21 14:34 17:45 23:36 WBC RBC Hgb Hct MCV MCH RDW Seg Neutrophils % Monocytes % (Manual) Seg Neutrophils # Monocytes # (Manual) PT INR D-Dimer Heparin Anti-Xa Level ABG pH POC ABG pCO2 POC ABG pO2 ABG Hemoglobin ABG Oxyhemoglobin ABG Sodium ABG Potassium ABG Chloride ABG Glucose Carboxyhemoglobin Sodium Potassium Chloride Carbon Dioxide BUN Creatinine Glucose POC Glucose 140 H 209 H Lactic Acid Calcium Phosphorus Magnesium Ferritin Total Bilirubin Direct Bilirubin AST ALT Alkaline Phosphatase Ammonia Lactate Dehydrogenase Troponin T C-Reactive Protein Total Protein Albumin Triglycerides Cholesterol HDL Cholesterol Lipase Arterial Blood Glucose Arterial Blood Ionized Calcium Urine WBC (Auto) 103.0 H Salicylates Acetaminophen Coronavirus (PCR) 03/07/21 03/07/21 03/07/21 03:00 05:32 08:16 WBC RBC Hgb Hct MCV MCH RDW Seg Neutrophils % Monocytes % (Manual) Seg Neutrophils # Monocytes # (Manual) PT INR D-Dimer Heparin Anti-Xa Level ABG pH POC ABG pCO2 POC ABG pO2 ABG Hemoglobin 8.9 L ABG Oxyhemoglobin ABG Sodium 131.4 L ABG Potassium ABG Chloride ABG Glucose 224 H Carboxyhemoglobin Sodium 136 L Potassium Chloride 95.3 L Carbon Dioxide BUN 45 H Creatinine Glucose 210 H POC Glucose 213 H Lactic Acid Calcium 8.0 L Phosphorus Magnesium Ferritin Total Bilirubin 1.30 H Direct Bilirubin AST 144 H ALT 66 H Alkaline Phosphatase 335 H Ammonia Lactate Dehydrogenase Troponin T C-Reactive Protein Total Protein 4.9 L Albumin 2.1 L Triglycerides Cholesterol HDL Cholesterol Lipase Arterial Blood Glucose 224 H Arterial Blood Ionized Calcium 4.3 L Urine WBC (Auto) Salicylates Acetaminophen Coronavirus (PCR) 07/03/07/21 03/07/21 08:16 08:16 08:16 WBC RBC 2.47 L Hgb 8.2 L Hct 24.6 L MCV 100 H MCH 33 H RDW 18.1 H Seg Neutrophils % Monocytes % (Manual) Seg Neutrophils # Monocytes # (Manual) PT INR D-Dimer 403.72 H Heparin Anti-Xa Level ABG pH POC ABG pCO2 POC ABG pO2 ABG Hemoglobin ABG Oxyhemoglobin ABG Sodium ABG Potassium ABG Chloride ABG Glucose Carboxyhemoglobin Sodium Potassium Chloride Carbon Dioxide BUN Creatinine Glucose POC Glucose Lactic Acid Calcium Phosphorus Magnesium Ferritin Total Bilirubin Direct Bilirubin AST ALT Alkaline Phosphatase Ammonia Lactate Dehydrogenase 453 H Troponin T C-Reactive Protein 32.50 H Total Protein Albumin Triglycerides Cholesterol HDL Cholesterol Lipase Arterial Blood Glucose Arterial Blood Ionized Calcium Urine WBC (Auto) Salicylates Acetaminophen Coronavirus (PCR) 03/07/21 03/07/21 03/07/21 08:16 11:24 17:22 WBC RBC Hgb Hct MCV MCH RDW Seg Neutrophils % Monocytes % (Manual) Seg Neutrophils # Monocytes # (Manual) PT INR D-Dimer Heparin Anti-Xa Level ABG pH POC ABG pCO2 POC ABG pO2 ABG Hemoglobin ABG Oxyhemoglobin ABG Sodium ABG Potassium ABG Chloride ABG Glucose Carboxyhemoglobin Sodium Potassium Chloride Carbon Dioxide BUN Creatinine Glucose POC Glucose 205 H 211 H Lactic Acid Calcium Phosphorus Magnesium Ferritin > 2000.0 H Total Bilirubin Direct Bilirubin AST ALT Alkaline Phosphatase Ammonia Lactate Dehydrogenase Troponin T C-Reactive Protein Total Protein Albumin Triglycerides Cholesterol HDL Cholesterol Lipase Arterial Blood Glucose Arterial Blood Ionized Calcium Urine WBC (Auto) Salicylates Acetaminophen Coronavirus (PCR) 03/07/21 03/08/21 03/08/21 Unknown 00:05 04:00 WBC RBC Hgb Hct MCV MCH RDW Seg Neutrophils % Monocytes % (Manual) Seg Neutrophils # Monocytes # (Manual) PT INR D-Dimer Heparin Anti-Xa Level 0.94 H ABG pH 7.452 H POC ABG pCO2 POC ABG pO2 75.5 L ABG Hemoglobin 10.0 L ABG Oxyhemoglobin 93.5 L ABG Sodium 134.7 L ABG Potassium ABG Chloride ABG Glucose 268 H Carboxyhemoglobin 0.3 L Sodium Potassium Chloride Carbon Dioxide BUN Creatinine Glucose POC Glucose 253 H Lactic Acid Calcium Phosphorus Magnesium Ferritin Total Bilirubin Direct Bilirubin AST ALT Alkaline Phosphatase Ammonia Lactate Dehydrogenase Troponin T C-Reactive Protein Total Protein Albumin Triglycerides Cholesterol HDL Cholesterol Lipase Arterial Blood Glucose 268 H Arterial Blood Ionized Calcium 4.5 L Urine WBC (Auto) Salicylates Acetaminophen Coronavirus (PCR) 03/08/21 03/08/21 03/08/21 05:27 06:10 06:10 WBC RBC 2.62 L Hgb 8.4 L Hct 26.0 L MCV 100 H MCH RDW 18.0 H Seg Neutrophils % Monocytes % (Manual) Seg Neutrophils # Monocytes # (Manual) PT INR D-Dimer Heparin Anti-Xa Level ABG pH POC ABG pCO2 POC ABG pO2 ABG Hemoglobin ABG Oxyhemoglobin ABG Sodium ABG Potassium ABG Chloride ABG Glucose Carboxyhemoglobin Sodium Potassium Chloride Carbon Dioxide BUN 49 H Creatinine Glucose 280 H POC Glucose 273 H Lactic Acid Calcium Phosphorus Magnesium Ferritin Total Bilirubin Direct Bilirubin AST 130 H ALT 68 H Alkaline Phosphatase 440 H Ammonia Lactate Dehydrogenase Troponin T C-Reactive Protein Total Protein 5.3 L Albumin 1.9 L Triglycerides Cholesterol HDL Cholesterol Lipase Arterial Blood Glucose Arterial Blood Ionized Calcium Urine WBC (Auto) Salicylates Acetaminophen Coronavirus (PCR) 03/08/21 03/08/21 03/08/21 11:27 17:56 23:20 WBC RBC Hgb Hct MCV MCH RDW Seg Neutrophils % Monocytes % (Manual) Seg Neutrophils # Monocytes # (Manual) PT INR D-Dimer Heparin Anti-Xa Level ABG pH POC ABG pCO2 POC ABG pO2 ABG Hemoglobin ABG Oxyhemoglobin ABG Sodium ABG Potassium ABG Chloride ABG Glucose Carboxyhemoglobin Sodium Potassium Chloride Carbon Dioxide BUN Creatinine Glucose POC Glucose 258 H 279 H 289 H Lactic Acid Calcium Phosphorus Magnesium Ferritin Total Bilirubin Direct Bilirubin AST ALT Alkaline Phosphatase Ammonia Lactate Dehydrogenase Troponin T C-Reactive Protein Total Protein Albumin Triglycerides Cholesterol HDL Cholesterol Lipase Arterial Blood Glucose Arterial Blood Ionized Calcium Urine WBC (Auto) Salicylates Acetaminophen Coronavirus (PCR) 03/09/21 03/09/21 03/09/21 04:00 05:12 08:00 WBC RBC Hgb Hct MCV MCH RDW Seg Neutrophils % Monocytes % (Manual) Seg Neutrophils # Monocytes # (Manual) PT INR D-Dimer 249.59 H Heparin Anti-Xa Level ABG pH 7.456 H POC ABG pCO2 POC ABG pO2 ABG Hemoglobin 8.9 L ABG Oxyhemoglobin ABG Sodium 135.6 L ABG Potassium ABG Chloride ABG Glucose 298 H Carboxyhemoglobin 0.3 L Sodium Potassium Chloride Carbon Dioxide BUN Creatinine Glucose POC Glucose 267 H Lactic Acid Calcium Phosphorus Magnesium Ferritin Total Bilirubin Direct Bilirubin AST ALT Alkaline Phosphatase Ammonia Lactate Dehydrogenase Troponin T C-Reactive Protein Total Protein Albumin Triglycerides Cholesterol HDL Cholesterol Lipase Arterial Blood Glucose 298 H Arterial Blood Ionized Calcium 4.5 L Urine WBC (Auto) Salicylates Acetaminophen Coronavirus (PCR) 03/09/21 03/09/21 03/09/21 08:00 08:00 08:00 WBC RBC Hgb Hct MCV MCH RDW Seg Neutrophils % Monocytes % (Manual) Seg Neutrophils # Monocytes # (Manual) PT INR D-Dimer Heparin Anti-Xa Level ABG pH POC ABG pCO2 POC ABG pO2 ABG Hemoglobin ABG Oxyhemoglobin ABG Sodium ABG Potassium ABG Chloride ABG Glucose Carboxyhemoglobin Sodium Potassium Chloride Carbon Dioxide BUN 44 H Creatinine Glucose 289 H POC Glucose Lactic Acid Calcium Phosphorus Magnesium Ferritin 2743.0 H Total Bilirubin Direct Bilirubin AST 134 H ALT 62 H Alkaline Phosphatase 527 H Ammonia Lactate Dehydrogenase 459 H Troponin T C-Reactive Protein 10.60 H Total Protein 5.0 L Albumin 2.2 L Triglycerides Cholesterol HDL Cholesterol Lipase Arterial Blood Glucose Arterial Blood Ionized Calcium Urine WBC (Auto) Salicylates Acetaminophen Coronavirus (PCR) 03/09/21 03/09/21 03/09/21 08:00 11:52 18:05 WBC RBC 2.60 L Hgb 8.5 L Hct 25.5 L MCV 98 H MCH 33 H RDW 18.1 H Seg Neutrophils % Monocytes % (Manual) Seg Neutrophils # Monocytes # (Manual) PT INR D-Dimer Heparin Anti-Xa Level ABG pH POC ABG pCO2 POC ABG pO2 ABG Hemoglobin ABG Oxyhemoglobin ABG Sodium ABG Potassium ABG Chloride ABG Glucose Carboxyhemoglobin Sodium Potassium Chloride Carbon Dioxide BUN Creatinine Glucose POC Glucose 306 H 293 H Lactic Acid Calcium Phosphorus Magnesium Ferritin Total Bilirubin Direct Bilirubin AST ALT Alkaline Phosphatase Ammonia Lactate Dehydrogenase Troponin T C-Reactive Protein Total Protein Albumin Triglycerides Cholesterol HDL Cholesterol Lipase Arterial Blood Glucose Arterial Blood Ionized Calcium Urine WBC (Auto) Salicylates Acetaminophen Coronavirus (PCR) 03/09/21 03/10/21 03/10/21 23:21 04:38 05:25 WBC RBC Hgb 8.6 L Hct 26.0 L MCV MCH RDW Seg Neutrophils % Monocytes % (Manual) Seg Neutrophils # Monocytes # (Manual) PT INR D-Dimer Heparin Anti-Xa Level ABG pH POC ABG pCO2 POC ABG pO2 ABG Hemoglobin ABG Oxyhemoglobin ABG Sodium ABG Potassium ABG Chloride ABG Glucose Carboxyhemoglobin Sodium Potassium Chloride Carbon Dioxide BUN Creatinine Glucose POC Glucose 306 H 310 H Lactic Acid Calcium Phosphorus Magnesium Ferritin Total Bilirubin Direct Bilirubin AST ALT Alkaline Phosphatase Ammonia Lactate Dehydrogenase Troponin T C-Reactive Protein Total Protein Albumin Triglycerides Cholesterol HDL Cholesterol Lipase Arterial Blood Glucose Arterial Blood Ionized Calcium Urine WBC (Auto) Salicylates Acetaminophen Coronavirus (PCR) 03/10/21 03/10/21 03/10/21 05:25 12:33 12:52 WBC RBC Hgb Hct MCV MCH RDW Seg Neutrophils % Monocytes % (Manual) Seg Neutrophils # Monocytes # (Manual) PT INR D-Dimer Heparin Anti-Xa Level ABG pH 7.487 H POC ABG pCO2 POC ABG pO2 62.1 L ABG Hemoglobin 9.4 L ABG Oxyhemoglobin 89.7 L ABG Sodium ABG Potassium ABG Chloride ABG Glucose 350 H Carboxyhemoglobin 0.2 L Sodium Potassium Chloride Carbon Dioxide 32 H BUN 45 H Creatinine Glucose 341 H POC Glucose 340 H Lactic Acid Calcium Phosphorus Magnesium Ferritin Total Bilirubin Direct Bilirubin AST ALT Alkaline Phosphatase Ammonia Lactate Dehydrogenase Troponin T C-Reactive Protein Total Protein Albumin Triglycerides Cholesterol HDL Cholesterol Lipase Arterial Blood Glucose 350 H Arterial Blood Ionized Calcium Urine WBC (Auto) Salicylates Acetaminophen Coronavirus (PCR) 03/10/21 03/10/21 03/11/21 17:05 22:57 04:58 WBC RBC Hgb Hct MCV MCH RDW Seg Neutrophils % Monocytes % (Manual) Seg Neutrophils # Monocytes # (Manual) PT INR D-Dimer Heparin Anti-Xa Level ABG pH POC ABG pCO2 POC ABG pO2 ABG Hemoglobin ABG Oxyhemoglobin ABG Sodium ABG Potassium ABG Chloride ABG Glucose Carboxyhemoglobin Sodium Potassium Chloride Carbon Dioxide BUN Creatinine Glucose POC Glucose 298 H 241 H 261 H Lactic Acid Calcium Phosphorus Magnesium Ferritin Total Bilirubin Direct Bilirubin AST ALT Alkaline Phosphatase Ammonia Lactate Dehydrogenase Troponin T C-Reactive Protein Total Protein Albumin Triglycerides Cholesterol HDL Cholesterol Lipase Arterial Blood Glucose Arterial Blood Ionized Calcium Urine WBC (Auto) Salicylates Acetaminophen Coronavirus (PCR) 03/11/21 03/11/21 03/11/21 06:54 06:54 06:54 WBC RBC Hgb Hct MCV MCH RDW Seg Neutrophils % Monocytes % (Manual) Seg Neutrophils # Monocytes # (Manual) PT INR D-Dimer 238.43 H Heparin Anti-Xa Level ABG pH POC ABG pCO2 POC ABG pO2 ABG Hemoglobin ABG Oxyhemoglobin ABG Sodium ABG Potassium ABG Chloride ABG Glucose Carboxyhemoglobin Sodium 146 H Potassium Chloride Carbon Dioxide 31 H BUN 41 H Creatinine Glucose 255 H POC Glucose Lactic Acid Calcium Phosphorus Magnesium Ferritin 3346.0 H Total Bilirubin Direct Bilirubin AST ALT Alkaline Phosphatase Ammonia Lactate Dehydrogenase 557 H Troponin T C-Reactive Protein 4.70 H Total Protein Albumin Triglycerides Cholesterol HDL Cholesterol Lipase Arterial Blood Glucose Arterial Blood Ionized Calcium Urine WBC (Auto) Salicylates Acetaminophen Coronavirus (PCR) 03/11/21 03/11/21 03/11/21 06:54 11:25 17:41 WBC RBC 2.76 L Hgb 8.9 L Hct 27.0 L MCV 98 H MCH RDW 18.3 H Seg Neutrophils % Monocytes % (Manual) Seg Neutrophils # Monocytes # (Manual) PT INR D-Dimer Heparin Anti-Xa Level ABG pH POC ABG pCO2 POC ABG pO2 ABG Hemoglobin ABG Oxyhemoglobin ABG Sodium ABG Potassium ABG Chloride ABG Glucose Carboxyhemoglobin Sodium Potassium Chloride Carbon Dioxide BUN Creatinine Glucose POC Glucose 255 H 292 H Lactic Acid Calcium Phosphorus Magnesium Ferritin Total Bilirubin Direct Bilirubin AST ALT Alkaline Phosphatase Ammonia Lactate Dehydrogenase Troponin T C-Reactive Protein Total Protein Albumin Triglycerides Cholesterol HDL Cholesterol Lipase Arterial Blood Glucose Arterial Blood Ionized Calcium Urine WBC (Auto) Salicylates Acetaminophen Coronavirus (PCR) 03/11/21 03/12/21 03/12/21 23:26 04:44 05:16 WBC RBC Hgb Hct MCV MCH RDW Seg Neutrophils % Monocytes % (Manual) Seg Neutrophils # Monocytes # (Manual) PT INR D-Dimer Heparin Anti-Xa Level ABG pH POC ABG pCO2 POC ABG pO2 ABG Hemoglobin ABG Oxyhemoglobin ABG Sodium ABG Potassium ABG Chloride ABG Glucose Carboxyhemoglobin Sodium Potassium Chloride Carbon Dioxide BUN Creatinine Glucose POC Glucose 289 H 255 H Lactic Acid Calcium Phosphorus Magnesium Ferritin Total Bilirubin Direct Bilirubin AST ALT Alkaline Phosphatase Ammonia Lactate Dehydrogenase Troponin T 0.149 H* C-Reactive Protein Total Protein Albumin Triglycerides Cholesterol HDL Cholesterol Lipase Arterial Blood Glucose Arterial Blood Ionized Calcium Urine WBC (Auto) Salicylates Acetaminophen Coronavirus (PCR) 03/12/21 03/12/21 03/12/21 12:02 15:00 17:28 WBC RBC Hgb Hct MCV MCH RDW Seg Neutrophils % Monocytes % (Manual) Seg Neutrophils # Monocytes # (Manual) PT INR D-Dimer Heparin Anti-Xa Level ABG pH POC ABG pCO2 POC ABG pO2 ABG Hemoglobin ABG Oxyhemoglobin ABG Sodium ABG Potassium ABG Chloride ABG Glucose Carboxyhemoglobin Sodium Potassium 3.2 L Chloride Carbon Dioxide BUN 39 H Creatinine 0.7 L Glucose 258 H POC Glucose 237 H 257 H Lactic Acid Calcium 8.3 L Phosphorus Magnesium Ferritin Total Bilirubin 2.20 H Direct Bilirubin AST 181 H ALT 129 H Alkaline Phosphatase 541 H Ammonia Lactate Dehydrogenase Troponin T C-Reactive Protein Total Protein 5.0 L Albumin 2.0 L Triglycerides Cholesterol HDL Cholesterol Lipase Arterial Blood Glucose Arterial Blood Ionized Calcium Urine WBC (Auto) Salicylates Acetaminophen Coronavirus (PCR) 03/12/21 03/12/21 03/13/21 21:51 23:15 05:44 WBC RBC Hgb Hct MCV MCH RDW Seg Neutrophils % Monocytes % (Manual) Seg Neutrophils # Monocytes # (Manual) PT INR D-Dimer Heparin Anti-Xa Level ABG pH POC ABG pCO2 POC ABG pO2 ABG Hemoglobin ABG Oxyhemoglobin ABG Sodium ABG Potassium ABG Chloride ABG Glucose Carboxyhemoglobin Sodium Potassium Chloride Carbon Dioxide BUN Creatinine Glucose POC Glucose 253 H 287 H 247 H Lactic Acid Calcium Phosphorus Magnesium Ferritin Total Bilirubin Direct Bilirubin AST ALT Alkaline Phosphatase Ammonia Lactate Dehydrogenase Troponin T C-Reactive Protein Total Protein Albumin Triglycerides Cholesterol HDL Cholesterol Lipase Arterial Blood Glucose Arterial Blood Ionized Calcium Urine WBC (Auto) Salicylates Acetaminophen Coronavirus (PCR) 03/13/21 03/13/21 03/14/21 17:03 23:31 03:40 WBC RBC Hgb Hct MCV MCH RDW Seg Neutrophils % Monocytes % (Manual) Seg Neutrophils # Monocytes # (Manual) PT INR D-Dimer 475.91 H Heparin Anti-Xa Level ABG pH POC ABG pCO2 POC ABG pO2 ABG Hemoglobin ABG Oxyhemoglobin ABG Sodium ABG Potassium ABG Chloride ABG Glucose Carboxyhemoglobin Sodium Potassium Chloride Carbon Dioxide BUN Creatinine Glucose POC Glucose 228 H 275 H Lactic Acid Calcium Phosphorus Magnesium Ferritin Total Bilirubin Direct Bilirubin AST ALT Alkaline Phosphatase Ammonia Lactate Dehydrogenase Troponin T C-Reactive Protein Total Protein Albumin Triglycerides Cholesterol HDL Cholesterol Lipase Arterial Blood Glucose Arterial Blood Ionized Calcium Urine WBC (Auto) Salicylates Acetaminophen Coronavirus (PCR) 03/14/21 03/14/2121 03:40 03:40 03:40 WBC RBC 2.25 L Hgb 7.4 L Hct 22.2 L MCV 99 H MCH 33 H RDW 18.5 H Seg Neutrophils % Monocytes % (Manual) Seg Neutrophils # Monocytes # (Manual) PT INR D-Dimer Heparin Anti-Xa Level ABG pH POC ABG pCO2 POC ABG pO2 ABG Hemoglobin ABG Oxyhemoglobin ABG Sodium ABG Potassium ABG Chloride ABG Glucose Carboxyhemoglobin Sodium Potassium 3.3 L Chloride Carbon Dioxide 37 H D BUN 24 H Creatinine 0.6 L Glucose 180 H POC Glucose Lactic Acid Calcium Phosphorus Magnesium Ferritin 3103.0 H Total Bilirubin 1.60 H Direct Bilirubin AST 283 H ALT 188 H Alkaline Phosphatase 619 H Ammonia Lactate Dehydrogenase 588 H Troponin T C-Reactive Protein 4.00 H Total Protein 4.8 L Albumin 2.2 L Triglycerides Cholesterol HDL Cholesterol Lipase Arterial Blood Glucose Arterial Blood Ionized Calcium Urine WBC (Auto) Salicylates Acetaminophen Coronavirus (PCR) 03/15/21 03/15/21 03/15/21 00:34 05:00 05:00 WBC RBC 2.40 L Hgb 7.8 L Hct 23.6 L MCV 99 H MCH 33 H RDW 18.3 H Seg Neutrophils % Monocytes % (Manual) Seg Neutrophils # Monocytes # (Manual) PT INR D-Dimer Heparin Anti-Xa Level ABG pH POC ABG pCO2 POC ABG pO2 ABG Hemoglobin ABG Oxyhemoglobin ABG Sodium ABG Potassium ABG Chloride ABG Glucose Carboxyhemoglobin Sodium Potassium Chloride Carbon Dioxide BUN Creatinine 0.6 L Glucose 238 H POC Glucose 287 H Lactic Acid Calcium 8.0 L Phosphorus Magnesium Ferritin Total Bilirubin 1.50 H Direct Bilirubin AST 189 H ALT 208 H Alkaline Phosphatase 659 H Ammonia Lactate Dehydrogenase Troponin T C-Reactive Protein Total Protein 5.1 L Albumin 2.1 L Triglycerides Cholesterol HDL Cholesterol Lipase Arterial Blood Glucose Arterial Blood Ionized Calcium Urine WBC (Auto) Salicylates Acetaminophen Coronavirus (PCR) 03/15/21 03/15/21 05:05 11:37 WBC RBC Hgb Hct MCV MCH RDW Seg Neutrophils % Monocytes % (Manual) Seg Neutrophils # Monocytes # (Manual) PT INR D-Dimer Heparin Anti-Xa Level ABG pH POC ABG pCO2 POC ABG pO2 ABG Hemoglobin ABG Oxyhemoglobin ABG Sodium ABG Potassium ABG Chloride ABG Glucose Carboxyhemoglobin Sodium Potassium Chloride Carbon Dioxide BUN Creatinine Glucose POC Glucose 238 H 236 H Lactic Acid Calcium Phosphorus Magnesium Ferritin Total Bilirubin Direct Bilirubin AST ALT Alkaline Phosphatase Ammonia Lactate Dehydrogenase Troponin T C-Reactive Protein Total Protein Albumin Triglycerides Cholesterol HDL Cholesterol Lipase Arterial Blood Glucose Arterial Blood Ionized Calcium Urine WBC (Auto) Salicylates Acetaminophen Coronavirus (PCR) Allied health notes reviewed: nursing
[2021-03-15] MEDS: dexAMETHasone 4 MG/ML VIAL IV SCH (13:18)
[2021-03-16] MEDS: INSULIN REGULAR, HUMAN 100 UNITS/1 ML SUB-Q SCH ×4 (00:05→18:51)
--- NOTE | 2021-03-16 05:14 | Progress Note ---
Assessment and Plan Acute hypoxemic respiratory failure COVID pneumonia/ARDS NSTEMI Acute kidney injury-resolved Severe sepsis-resolved Bilateral pneumonia H/O congestive heart failure Diabetes type 2 Elevated serum transaminases Anemia that is microcytic -continue to titrate supplemental oxygen to keep SpO2 89-92% -continue bronchodilators with pulmonary hygiene per RT -monitor hemodynamics closely, renal function and electrolytes while on intermittent diuretic therapy - continue to avoid benzodiazepines, reduce the possibility of delirium - Maintenance of sleep-wake cycle, avoid delirium - continue enteric nutritional support at goal rate as tolerated - Stress ulcer prophylaxis-Famotidine - VTE prophylaxis-on therapeutic anticoagulation - PT/OT/ROM exercises - continue mobility , off loading and frequent turning per facility protocol for pressure ulcer prevention -Supportive transfusions as clinically indicated to keep HgB >7g/dL - continue other care per attending / other consultants COVID SPECIFIC INTERVENTIONS -continue contact and airborne isolation per facility protocol -s/p Remdesivir as per ID/Pulmonary developed protocols -systemic steroids for severe COVID-19 infection -continue to trend and monitor inflammatory markers per facility protocol -therapeutic anticoagulation per system Protocol based on d-dimer and clinical considerations-on therapeutic anticoagulation for lower extremity DVT -CRP was elevated but was not a candidate for Tociluzimab CONDITION:FAIR PROGNOSIS: GUARDED CODE STATUS: FULL CODE Discussed with the primary service, patient can be downgraded Subjective Date of service: 03/16/21 Principal diagnosis: Ac hypoxemic resp failure; NSTEMI; ALPHONSO; Sepsis; PNA; CHF; DM II; AMS Interval history: Patient is seen today for: Acute hypoxemic respiratory failure, extubated 03/10; COVID infection; NSTEMI; ALPHONSO; Severe sepsis; Pneumonia; CHF; DM II; Acute encephalopathy Seen and examined at bedside; 24hour events reviewed; nursing and respiratory care staff consulted; no adverse overnight events reported to me; resting peacefully in bed; awake and alert, on high flow oxygen 20L and FIO2 50% , continues to have episodes of delirium. In restrains Clinically he is showing some improvement. No reported or documented fevers, no vomiting, no diarrhea. Objective Vital Signs - 12hr 03/15/21 03/15/21 03/15/21 17:22 18:00 19:00 Temperature 99.8 F H Pulse Rate 96 H 89 Pulse Rate [ From Monitor] Respiratory 20 18 Rate Respiratory Rate [Bilateral Toe] Blood Pressure 110/56 116/62 O2 Sat by Pulse 95 96 Oximetry 03/15/21 03/15/21 03/15/21 19:25 20:00 20:32 Temperature 98.1 F Pulse Rate 89 Pulse Rate [ 80 From Monitor] Respiratory 19 Rate Respiratory Rate [Bilateral Toe] Blood Pressure 130/72 O2 Sat by Pulse 97 96 Oximetry 03/15/21 03/15/21 03/15/21 21:00 22:00 22:48 Temperature Pulse Rate 94 H 86 92 H Pulse Rate [ 80 From Monitor] Respiratory 18 19 Rate Respiratory Rate [Bilateral Toe] Blood Pressure 130/72 135/74 135/74 O2 Sat by Pulse 100 96 Oximetry 03/15/21 03/15/21 03/15/21 23:00 23:01 23:25 Temperature 98.8 F Pulse Rate 87 90 Pulse Rate [ 80 From Monitor] Respiratory 21 21 Rate Respiratory 18 Rate [Bilateral Toe] Blood Pressure 130/66 130/66 O2 Sat by Pulse 95 95 Oximetry 03/16/21 03/16/21 03/16/21 00:01 01:00 02:01 Temperature Pulse Rate 97 H 98 H 99 H Pulse Rate [ 80 From Monitor] Respiratory 19 18 18 Rate Respiratory Rate [Bilateral Toe] Blood Pressure 150/86 154/87 139/79 O2 Sat by Pulse 99 96 91 Oximetry 03/16/21 03/16/21 03/16/21 02:09 02:46 03:00 Temperature 98.9 F Pulse Rate 91 H Pulse Rate [ 80 From Monitor] Respiratory 19 Rate Respiratory Rate [Bilateral Toe] Blood Pressure 142/77 O2 Sat by Pulse 96 98 Oximetry Constitutional: no acute distress, other (middle aged obese male with mildly increased respiratory effort at rest) Eyes: non-icteric ENT: oropharynx moist, other (extubated, on high flow oxygen) Neck: supple, no lymphadenopathy, no JVD, other (large circumference) Effort: mildly labored Ascultation: Bilateral: diminished breath sounds, rhonchi (posterior bases) Percussion: Bilateral: not dull Cardiovascular: regular rate and rhythm, other (S1,S2) Gastrointestinal: normoactive bowel sounds, soft, non-tender, non-distended (protuberant) Integumentary: normal Extremities: no cyanosis, pulses normal, no ischemia or petechiae, edema (trace) Neurologic: non-focal exam (grossly, moves all extremities), pupils equal and round, motor strength normal and Psychiatric: other (delirious) CBC and BMP: 03/18/21 07:53 03/18/21 07:53 ABG, PT/INR, D-dimer: ABG ABG pH 7.487 (7.320-7.450) H 03/10/21 12:33 POC ABG pCO2 40.4 mmHg (32.0-48.0) 03/10/21 12:33 POC ABG pO2 62.1 mmHg (83-108) L 03/10/21 12:33 POC ABG HCO3 29.9 03/10/21 12:33 ABG O2 Saturation 90.2 (0-100) 03/10/21 12:33 PT/INR, D-dimer PT 15.6 Sec. (12.2-14.9) H 03/04/21 10:17 INR 1.18 (0.87-1.13) H 03/04/21 10:17 D-Dimer 475.91 ng/mlDDU (0-234) H 03/14/21 03:40 Abnormal lab findings: Abnormal Labs 03/01/21 03/01/21 03/01/21 19:15 19:21 19:21 WBC 12.7 H RBC 2.77 L Hgb 9.1 L Hct 27.7 L MCV 100 H MCH 33 H RDW 18.0 H Seg Neutrophils % Monocytes % (Manual) 17.0 H Seg Neutrophils # Monocytes # (Manual) 2.2 H PT INR D-Dimer Heparin Anti-Xa Level ABG pH POC ABG pCO2 POC ABG pO2 64.9 L ABG Hemoglobin 9.3 L ABG Oxyhemoglobin 93.0 L ABG Sodium 133.8 L ABG Potassium ABG Chloride 97.0 L ABG Glucose 191 H Carboxyhemoglobin Sodium Potassium Chloride Carbon Dioxide BUN Creatinine Glucose POC Glucose Lactic Acid Calcium Phosphorus Magnesium Ferritin Total Bilirubin Direct Bilirubin AST ALT Alkaline Phosphatase Ammonia Lactate Dehydrogenase Troponin T 0.493 H* C-Reactive Protein Total Protein Albumin Triglycerides 400 H Cholesterol 232 H HDL Cholesterol 22 L Lipase Arterial Blood Glucose 191 H Arterial Blood Ionized Calcium 4.4 L Urine WBC (Auto) Salicylates Acetaminophen Coronavirus (PCR) 03/01/21 03/01/21 03/01/21 19:21 19:21 19:21 WBC RBC Hgb Hct MCV MCH RDW Seg Neutrophils % Monocytes % (Manual) Seg Neutrophils # Monocytes # (Manual) PT 16.6 H INR 1.28 H D-Dimer Heparin Anti-Xa Level ABG pH POC ABG pCO2 POC ABG pO2 ABG Hemoglobin ABG Oxyhemoglobin ABG Sodium ABG Potassium ABG Chloride ABG Glucose Carboxyhemoglobin Sodium 132 L Potassium Chloride 92.2 L Carbon Dioxide BUN 43 H Creatinine 2.4 H Glucose 190 H POC Glucose Lactic Acid 2.90 H* Calcium Phosphorus Magnesium Ferritin Total Bilirubin 1.60 H Direct Bilirubin 1.2 H AST 275 H ALT 156 H Alkaline Phosphatase 282 H Ammonia Lactate Dehydrogenase Troponin T C-Reactive Protein Total Protein 5.8 L Albumin 2.6 L Triglycerides Cholesterol HDL Cholesterol Lipase 120 H Arterial Blood Glucose Arterial Blood Ionized Calcium Urine WBC (Auto) Salicylates Acetaminophen Coronavirus (PCR) 03/01/21 03/01/21 03/01/21 19:21 19:21 19:21 WBC RBC Hgb Hct MCV MCH RDW Seg Neutrophils % Monocytes % (Manual) Seg Neutrophils # Monocytes # (Manual) PT INR D-Dimer Heparin Anti-Xa Level ABG pH POC ABG pCO2 POC ABG pO2 ABG Hemoglobin ABG Oxyhemoglobin ABG Sodium ABG Potassium ABG Chloride ABG Glucose Carboxyhemoglobin Sodium Potassium Chloride Carbon Dioxide BUN Creatinine Glucose POC Glucose Lactic Acid Calcium Phosphorus Magnesium Ferritin Total Bilirubin Direct Bilirubin AST ALT Alkaline Phosphatase Ammonia 71.0 H Lactate Dehydrogenase Troponin T C-Reactive Protein Total Protein Albumin Triglycerides Cholesterol HDL Cholesterol Lipase Arterial Blood Glucose Arterial Blood Ionized Calcium Urine WBC (Auto) Salicylates < 0.3 L Acetaminophen 5.0 L Coronavirus (PCR) 03/01/21 03/01/21 03/02/21 20:55 20:55 00:01 WBC RBC Hgb Hct MCV MCH RDW Seg Neutrophils % Monocytes % (Manual) Seg Neutrophils # Monocytes # (Manual) PT INR D-Dimer Heparin Anti-Xa Level ABG pH 7.234 L POC ABG pCO2 POC ABG pO2 240.5 H ABG Hemoglobin 9.3 L ABG Oxyhemoglobin 99.1 H ABG Sodium 135.3 L ABG Potassium ABG Chloride ABG Glucose 286 H Carboxyhemoglobin 0.3 L Sodium Potassium Chloride Carbon Dioxide BUN Creatinine Glucose POC Glucose Lactic Acid 4.30 H* Calcium Phosphorus Magnesium Ferritin Total Bilirubin Direct Bilirubin AST ALT Alkaline Phosphatase Ammonia Lactate Dehydrogenase Troponin T 0.484 H* C-Reactive Protein Total Protein Albumin Triglycerides Cholesterol HDL Cholesterol Lipase Arterial Blood Glucose 286 H Arterial Blood Ionized Calcium Urine WBC (Auto) Salicylates Acetaminophen Coronavirus (PCR) 03/02/21 03/02/21 03/02/21 03:42 05:23 06:35 WBC RBC Hgb Hct MCV MCH RDW Seg Neutrophils % Monocytes % (Manual) Seg Neutrophils # Monocytes # (Manual) PT INR D-Dimer Heparin Anti-Xa Level ABG pH 7.225 L POC ABG pCO2 POC ABG pO2 181.8 H ABG Hemoglobin 9.4 L ABG Oxyhemoglobin 98.6 H ABG Sodium 132.1 L ABG Potassium 5.0 H ABG Chloride ABG Glucose 454 H Carboxyhemoglobin 0.3 L Sodium Potassium Chloride Carbon Dioxide BUN Creatinine Glucose POC Glucose 410 H Lactic Acid 7.50 H* Calcium Phosphorus Magnesium Ferritin Total Bilirubin Direct Bilirubin AST ALT Alkaline Phosphatase Ammonia Lactate Dehydrogenase Troponin T C-Reactive Protein Total Protein Albumin Triglycerides Cholesterol HDL Cholesterol Lipase Arterial Blood Glucose 454 H Arterial Blood Ionized Calcium 4.2 L Urine WBC (Auto) Salicylates Acetaminophen Coronavirus (PCR) 03/02/21 03/02/21 03/02/21 10:48 10:48 10:48 WBC RBC Hgb Hct MCV MCH RDW Seg Neutrophils % Monocytes % (Manual) Seg Neutrophils # Monocytes # (Manual) PT INR D-Dimer Heparin Anti-Xa Level ABG pH POC ABG pCO2 POC ABG pO2 ABG Hemoglobin ABG Oxyhemoglobin ABG Sodium ABG Potassium ABG Chloride ABG Glucose Carboxyhemoglobin Sodium 132 L Potassium Chloride 93.3 L Carbon Dioxide 20 L BUN 46 H Creatinine 1.9 H Glucose 503 H* POC Glucose Lactic Acid 3.40 H* Calcium 7.9 L Phosphorus 5.80 H Magnesium Ferritin Total Bilirubin Direct Bilirubin AST ALT Alkaline Phosphatase Ammonia Lactate Dehydrogenase Troponin T C-Reactive Protein Total Protein Albumin Triglycerides Cholesterol HDL Cholesterol Lipase Arterial Blood Glucose Arterial Blood Ionized Calcium Urine WBC (Auto) Salicylates Acetaminophen Coronavirus (PCR) 03/02/21 03/02/21 03/02/21 11:23 11:38 15:33 WBC RBC Hgb Hct MCV MCH RDW Seg Neutrophils % Monocytes % (Manual) Seg Neutrophils # Monocytes # (Manual) PT INR D-Dimer Heparin Anti-Xa Level ABG pH 7.318 L POC ABG pCO2 POC ABG pO2 ABG Hemoglobin 9.2 L ABG Oxyhemoglobin ABG Sodium 133.2 L ABG Potassium ABG Chloride ABG Glucose 504 H Carboxyhemoglobin 0.3 L Sodium Potassium Chloride Carbon Dioxide BUN Creatinine Glucose POC Glucose 468 H 445 H Lactic Acid Calcium Phosphorus Magnesium Ferritin Total Bilirubin Direct Bilirubin AST ALT Alkaline Phosphatase Ammonia Lactate Dehydrogenase Troponin T C-Reactive Protein Total Protein Albumin Triglycerides Cholesterol HDL Cholesterol Lipase Arterial Blood Glucose 504 H Arterial Blood Ionized Calcium 4.2 L Urine WBC (Auto) Salicylates Acetaminophen Coronavirus (PCR) 03/02/21 03/02/21 03/02/21 16:28 16:28 16:28 WBC RBC Hgb 8.8 L Hct 26.0 L MCV MCH RDW Seg Neutrophils % Monocytes % (Manual) Seg Neutrophils # Monocytes # (Manual) PT 15.2 H INR 1.14 H D-Dimer Heparin Anti-Xa Level ABG pH POC ABG pCO2 POC ABG pO2 ABG Hemoglobin ABG Oxyhemoglobin ABG Sodium ABG Potassium ABG Chloride ABG Glucose Carboxyhemoglobin Sodium 135 L Potassium Chloride 93.8 L Carbon Dioxide BUN 48 H Creatinine 1.8 H Glucose 454 H POC Glucose Lactic Acid Calcium 7.6 L Phosphorus Magnesium Ferritin Total Bilirubin Direct Bilirubin AST ALT Alkaline Phosphatase Ammonia Lactate Dehydrogenase Troponin T C-Reactive Protein Total Protein Albumin Triglycerides Cholesterol HDL Cholesterol Lipase Arterial Blood Glucose Arterial Blood Ionized Calcium Urine WBC (Auto) Salicylates Acetaminophen Coronavirus (PCR) 03/02/21 03/02/21 03/02/21 17:39 18:52 20:09 WBC RBC Hgb Hct MCV MCH RDW Seg Neutrophils % Monocytes % (Manual) Seg Neutrophils # Monocytes # (Manual) PT INR D-Dimer Heparin Anti-Xa Level ABG pH POC ABG pCO2 POC ABG pO2 ABG Hemoglobin ABG Oxyhemoglobin ABG Sodium ABG Potassium ABG Chloride ABG Glucose Carboxyhemoglobin Sodium Potassium Chloride Carbon Dioxide BUN Creatinine Glucose POC Glucose 404 H 357 H 347 H Lactic Acid Calcium Phosphorus Magnesium Ferritin Total Bilirubin Direct Bilirubin AST ALT Alkaline Phosphatase Ammonia Lactate Dehydrogenase Troponin T C-Reactive Protein Total Protein Albumin Triglycerides Cholesterol HDL Cholesterol Lipase Arterial Blood Glucose Arterial Blood Ionized Calcium Urine WBC (Auto) Salicylates Acetaminophen Coronavirus (PCR) 03/02/21 03/02/21 03/02/21 21:03 22:00 22:55 WBC RBC Hgb Hct MCV MCH RDW Seg Neutrophils % Monocytes % (Manual) Seg Neutrophils # Monocytes # (Manual) PT INR D-Dimer Heparin Anti-Xa Level ABG pH POC ABG pCO2 POC ABG pO2 ABG Hemoglobin ABG Oxyhemoglobin ABG Sodium ABG Potassium ABG Chloride ABG Glucose Carboxyhemoglobin Sodium Potassium Chloride Carbon Dioxide BUN Creatinine Glucose POC Glucose 307 H 270 H 237 H Lactic Acid Calcium Phosphorus Magnesium Ferritin Total Bilirubin Direct Bilirubin AST ALT Alkaline Phosphatase Ammonia Lactate Dehydrogenase Troponin T C-Reactive Protein Total Protein Albumin Triglycerides Cholesterol HDL Cholesterol Lipase Arterial Blood Glucose Arterial Blood Ionized Calcium Urine WBC (Auto) Salicylates Acetaminophen Coronavirus (PCR) 03/03/21 03/03/21 03/03/21 00:02 00:57 02:01 WBC RBC Hgb Hct MCV MCH RDW Seg Neutrophils % Monocytes % (Manual) Seg Neutrophils # Monocytes # (Manual) PT INR D-Dimer Heparin Anti-Xa Level ABG pH POC ABG pCO2 POC ABG pO2 ABG Hemoglobin ABG Oxyhemoglobin ABG Sodium ABG Potassium ABG Chloride ABG Glucose Carboxyhemoglobin Sodium Potassium Chloride Carbon Dioxide BUN Creatinine Glucose POC Glucose 252 H 214 H 261 H Lactic Acid Calcium Phosphorus Magnesium Ferritin Total Bilirubin Direct Bilirubin AST ALT Alkaline Phosphatase Ammonia Lactate Dehydrogenase Troponin T C-Reactive Protein Total Protein Albumin Triglycerides Cholesterol HDL Cholesterol Lipase Arterial Blood Glucose Arterial Blood Ionized Calcium Urine WBC (Auto) Salicylates Acetaminophen Coronavirus (PCR) 03/03/21 03/03/21 03/03/21 03:07 03:10 03:50 WBC 13.7 H RBC 2.69 L Hgb 8.7 L Hct 26.9 L MCV 100 H MCH RDW 18.5 H Seg Neutrophils % 79.0 H Monocytes % (Manual) Seg Neutrophils # 10.8 H Monocytes # (Manual) PT INR D-Dimer Heparin Anti-Xa Level ABG pH POC ABG pCO2 50.9 H POC ABG pO2 81.9 L ABG Hemoglobin 8.7 L ABG Oxyhemoglobin ABG Sodium 134.2 L ABG Potassium ABG Chloride 96.0 L ABG Glucose 279 H Carboxyhemoglobin 0.4 L Sodium Potassium Chloride Carbon Dioxide BUN Creatinine Glucose POC Glucose 276 H Lactic Acid Calcium Phosphorus Magnesium Ferritin Total Bilirubin Direct Bilirubin AST ALT Alkaline Phosphatase Ammonia Lactate Dehydrogenase Troponin T C-Reactive Protein Total Protein Albumin Triglycerides Cholesterol HDL Cholesterol Lipase Arterial Blood Glucose 279 H Arterial Blood Ionized Calcium 3.9 L Urine WBC (Auto) Salicylates Acetaminophen Coronavirus (PCR) 03/03/21 03/03/21 03/03/21 03:50 04:06 04:32 WBC RBC Hgb Hct MCV MCH RDW Seg Neutrophils % Monocytes % (Manual) Seg Neutrophils # Monocytes # (Manual) PT INR D-Dimer Heparin Anti-Xa Level ABG pH POC ABG pCO2 POC ABG pO2 ABG Hemoglobin ABG Oxyhemoglobin ABG Sodium ABG Potassium ABG Chloride ABG Glucose Carboxyhemoglobin Sodium Potassium Chloride 94.2 L Carbon Dioxide BUN 45 H Creatinine 1.9 H Glucose 261 H POC Glucose 256 H Lactic Acid Calcium 7.3 L Phosphorus Magnesium Ferritin Total Bilirubin Direct Bilirubin 0.9 H AST 208 H ALT 148 H Alkaline Phosphatase 251 H Ammonia Lactate Dehydrogenase Troponin T C-Reactive Protein Total Protein 5.5 L Albumin 2.4 L Triglycerides Cholesterol HDL Cholesterol Lipase Arterial Blood Glucose Arterial Blood Ionized Calcium Urine WBC (Auto) Salicylates Acetaminophen Coronavirus (PCR) 03/03/21 03/03/21 03/03/21 05:23 06:06 07:07 WBC RBC Hgb Hct MCV MCH RDW Seg Neutrophils % Monocytes % (Manual) Seg Neutrophils # Monocytes # (Manual) PT INR D-Dimer Heparin Anti-Xa Level ABG pH POC ABG pCO2 POC ABG pO2 ABG Hemoglobin ABG Oxyhemoglobin ABG Sodium ABG Potassium ABG Chloride ABG Glucose Carboxyhemoglobin Sodium Potassium Chloride Carbon Dioxide BUN Creatinine Glucose POC Glucose 214 H 249 H 237 H Lactic Acid Calcium Phosphorus Magnesium Ferritin Total Bilirubin Direct Bilirubin AST ALT Alkaline Phosphatase Ammonia Lactate Dehydrogenase Troponin T C-Reactive Protein Total Protein Albumin Triglycerides Cholesterol HDL Cholesterol Lipase Arterial Blood Glucose Arterial Blood Ionized Calcium Urine WBC (Auto) Salicylates Acetaminophen Coronavirus (PCR) 03/03/21 03/03/21 03/03/21 07:58 08:58 09:52 WBC RBC Hgb Hct MCV MCH RDW Seg Neutrophils % Monocytes % (Manual) Seg Neutrophils # Monocytes # (Manual) PT INR D-Dimer Heparin Anti-Xa Level ABG pH POC ABG pCO2 POC ABG pO2 ABG Hemoglobin ABG Oxyhemoglobin ABG Sodium ABG Potassium ABG Chloride ABG Glucose Carboxyhemoglobin Sodium Potassium Chloride Carbon Dioxide BUN Creatinine Glucose POC Glucose 227 H 215 H 207 H Lactic Acid Calcium Phosphorus Magnesium Ferritin Total Bilirubin Direct Bilirubin AST ALT Alkaline Phosphatase Ammonia Lactate Dehydrogenase Troponin T C-Reactive Protein Total Protein Albumin Triglycerides Cholesterol HDL Cholesterol Lipase Arterial Blood Glucose Arterial Blood Ionized Calcium Urine WBC (Auto) Salicylates Acetaminophen Coronavirus (PCR) 03/03/21 03/03/21 03/03/21 10:55 11:44 12:53 WBC RBC Hgb Hct MCV MCH RDW Seg Neutrophils % Monocytes % (Manual) Seg Neutrophils # Monocytes # (Manual) PT INR D-Dimer Heparin Anti-Xa Level ABG pH POC ABG pCO2 POC ABG pO2 ABG Hemoglobin ABG Oxyhemoglobin ABG Sodium ABG Potassium ABG Chloride ABG Glucose Carboxyhemoglobin Sodium Potassium Chloride Carbon Dioxide BUN Creatinine Glucose POC Glucose 198 H 210 H 203 H Lactic Acid Calcium Phosphorus Magnesium Ferritin Total Bilirubin Direct Bilirubin AST ALT Alkaline Phosphatase Ammonia Lactate Dehydrogenase Troponin T C-Reactive Protein Total Protein Albumin Triglycerides Cholesterol HDL Cholesterol Lipase Arterial Blood Glucose Arterial Blood Ionized Calcium Urine WBC (Auto) Salicylates Acetaminophen Coronavirus (PCR) 03/03/21 03/03/21 03/03/21 13:53 14:58 15:23 WBC RBC Hgb Hct MCV MCH RDW Seg Neutrophils % Monocytes % (Manual) Seg Neutrophils # Monocytes # (Manual) PT INR D-Dimer Heparin Anti-Xa Level ABG pH POC ABG pCO2 POC ABG pO2 ABG Hemoglobin ABG Oxyhemoglobin ABG Sodium ABG Potassium ABG Chloride ABG Glucose Carboxyhemoglobin Sodium Potassium Chloride Carbon Dioxide BUN Creatinine Glucose POC Glucose 210 H 187 H Lactic Acid 3.10 H* Calcium Phosphorus Magnesium Ferritin Total Bilirubin Direct Bilirubin AST ALT Alkaline Phosphatase Ammonia Lactate Dehydrogenase Troponin T C-Reactive Protein Total Protein Albumin Triglycerides Cholesterol HDL Cholesterol Lipase Arterial Blood Glucose Arterial Blood Ionized Calcium Urine WBC (Auto) Salicylates Acetaminophen Coronavirus (PCR) 03/03/21 03/03/21 03/03/21 15:51 16:25 16:53 WBC RBC Hgb Hct MCV MCH RDW Seg Neutrophils % Monocytes % (Manual) Seg Neutrophils # Monocytes # (Manual) PT INR D-Dimer Heparin Anti-Xa Level ABG pH POC ABG pCO2 POC ABG pO2 ABG Hemoglobin ABG Oxyhemoglobin ABG Sodium ABG Potassium ABG Chloride ABG Glucose Carboxyhemoglobin Sodium Potassium Chloride 91.0 L Carbon Dioxide 34 H BUN 47 H Creatinine 1.7 H Glucose 190 H POC Glucose 182 H 179 H Lactic Acid Calcium 7.6 L Phosphorus Magnesium Ferritin Total Bilirubin Direct Bilirubin AST ALT Alkaline Phosphatase Ammonia Lactate Dehydrogenase Troponin T C-Reactive Protein Total Protein Albumin Triglycerides Cholesterol HDL Cholesterol Lipase Arterial Blood Glucose Arterial Blood Ionized Calcium Urine WBC (Auto) Salicylates Acetaminophen Coronavirus (PCR) 03/03/21 03/03/21 03/03/21 17:55 19:37 20:57 WBC RBC Hgb Hct MCV MCH RDW Seg Neutrophils % Monocytes % (Manual) Seg Neutrophils # Monocytes # (Manual) PT INR D-Dimer Heparin Anti-Xa Level ABG pH POC ABG pCO2 POC ABG pO2 ABG Hemoglobin ABG Oxyhemoglobin ABG Sodium ABG Potassium ABG Chloride ABG Glucose Carboxyhemoglobin Sodium Potassium Chloride Carbon Dioxide BUN Creatinine Glucose POC Glucose 185 H 174 H 175 H Lactic Acid Calcium Phosphorus Magnesium Ferritin Total Bilirubin Direct Bilirubin AST ALT Alkaline Phosphatase Ammonia Lactate Dehydrogenase Troponin T C-Reactive Protein Total Protein Albumin Triglycerides Cholesterol HDL Cholesterol Lipase Arterial Blood Glucose Arterial Blood Ionized Calcium Urine WBC (Auto) Salicylates Acetaminophen Coronavirus (PCR) 03/03/21 03/03/21 03/03/21 22:02 22:56 23:10 WBC RBC Hgb Hct MCV MCH RDW Seg Neutrophils % Monocytes % (Manual) Seg Neutrophils # Monocytes # (Manual) PT INR D-Dimer Heparin Anti-Xa Level 0.75 H ABG pH POC ABG pCO2 POC ABG pO2 ABG Hemoglobin ABG Oxyhemoglobin ABG Sodium ABG Potassium ABG Chloride ABG Glucose Carboxyhemoglobin Sodium Potassium Chloride Carbon Dioxide BUN Creatinine Glucose POC Glucose 170 H 160 H Lactic Acid Calcium Phosphorus Magnesium Ferritin Total Bilirubin Direct Bilirubin AST ALT Alkaline Phosphatase Ammonia Lactate Dehydrogenase Troponin T C-Reactive Protein Total Protein Albumin Triglycerides Cholesterol HDL Cholesterol Lipase Arterial Blood Glucose Arterial Blood Ionized Calcium Urine WBC (Auto) Salicylates Acetaminophen Coronavirus (PCR) 03/03/21 03/04/21 03/04/21 23:42 00:52 01:55 WBC RBC Hgb Hct MCV MCH RDW Seg Neutrophils % Monocytes % (Manual) Seg Neutrophils # Monocytes # (Manual) PT INR D-Dimer Heparin Anti-Xa Level ABG pH POC ABG pCO2 POC ABG pO2 ABG Hemoglobin ABG Oxyhemoglobin ABG Sodium ABG Potassium ABG Chloride ABG Glucose Carboxyhemoglobin Sodium Potassium Chloride Carbon Dioxide BUN Creatinine Glucose POC Glucose 161 H 167 H 119 H Lactic Acid Calcium Phosphorus Magnesium Ferritin Total Bilirubin Direct Bilirubin AST ALT Alkaline Phosphatase Ammonia Lactate Dehydrogenase Troponin T C-Reactive Protein Total Protein Albumin Triglycerides Cholesterol HDL Cholesterol Lipase Arterial Blood Glucose Arterial Blood Ionized Calcium Urine WBC (Auto) Salicylates Acetaminophen Coronavirus (PCR) 03/04/21 03/04/21 03/04/21 02:58 03:47 04:03 WBC RBC Hgb Hct MCV MCH RDW Seg Neutrophils % Monocytes % (Manual) Seg Neutrophils # Monocytes # (Manual) PT INR D-Dimer Heparin Anti-Xa Level ABG pH POC ABG pCO2 57.3 H POC ABG pO2 63.7 L ABG Hemoglobin 8.4 L ABG Oxyhemoglobin 88.6 L ABG Sodium 132.5 L ABG Potassium 3.2 L ABG Chloride 94.0 L ABG Glucose 129 H Carboxyhemoglobin Sodium Potassium Chloride Carbon Dioxide BUN Creatinine Glucose POC Glucose 111 H 122 H Lactic Acid Calcium Phosphorus Magnesium Ferritin Total Bilirubin Direct Bilirubin AST ALT Alkaline Phosphatase Ammonia Lactate Dehydrogenase Troponin T C-Reactive Protein Total Protein Albumin Triglycerides Cholesterol HDL Cholesterol Lipase Arterial Blood Glucose 129 H Arterial Blood Ionized Calcium 3.8 L Urine WBC (Auto) Salicylates Acetaminophen Coronavirus (PCR) 03/04/21 03/04/21 03/04/21 05:15 05:26 05:26 WBC RBC Hgb 7.9 L Hct 23.7 L MCV MCH RDW Seg Neutrophils % Monocytes % (Manual) Seg Neutrophils # Monocytes # (Manual) PT INR D-Dimer Heparin Anti-Xa Level ABG pH POC ABG pCO2 POC ABG pO2 ABG Hemoglobin ABG Oxyhemoglobin ABG Sodium ABG Potassium ABG Chloride ABG Glucose Carboxyhemoglobin Sodium Potassium Chloride Carbon Dioxide BUN Creatinine Glucose POC Glucose 127 H Lactic Acid Calcium Phosphorus Magnesium Ferritin Total Bilirubin Direct Bilirubin 0.6 H AST 123 H ALT 105 H Alkaline Phosphatase 232 H Ammonia Lactate Dehydrogenase Troponin T C-Reactive Protein Total Protein 4.8 L Albumin 2.2 L Triglycerides Cholesterol HDL Cholesterol Lipase Arterial Blood Glucose Arterial Blood Ionized Calcium Urine WBC (Auto) Salicylates Acetaminophen Coronavirus (PCR) 03/04/21 03/04/21 03/04/21 05:26 06:01 06:53 WBC RBC Hgb Hct MCV MCH RDW Seg Neutrophils % Monocytes % (Manual) Seg Neutrophils # Monocytes # (Manual) PT INR D-Dimer Heparin Anti-Xa Level 0.71 H ABG pH POC ABG pCO2 POC ABG pO2 ABG Hemoglobin ABG Oxyhemoglobin ABG Sodium ABG Potassium ABG Chloride ABG Glucose Carboxyhemoglobin Sodium Potassium Chloride Carbon Dioxide BUN Creatinine Glucose POC Glucose 120 H 117 H Lactic Acid Calcium Phosphorus Magnesium Ferritin Total Bilirubin Direct Bilirubin AST ALT Alkaline Phosphatase Ammonia Lactate Dehydrogenase Troponin T C-Reactive Protein Total Protein Albumin Triglycerides Cholesterol HDL Cholesterol Lipase Arterial Blood Glucose Arterial Blood Ionized Calcium Urine WBC (Auto) Salicylates Acetaminophen Coronavirus (PCR) 03/04/21 03/04/21 03/04/21 07:57 10:17 10:17 WBC RBC 2.51 L Hgb 8.3 L Hct 25.3 L MCV 101 H MCH 33 H RDW 18.5 H Seg Neutrophils % Monocytes % (Manual) Seg Neutrophils # Monocytes # (Manual) PT INR D-Dimer Heparin Anti-Xa Level ABG pH POC ABG pCO2 POC ABG pO2 ABG Hemoglobin ABG Oxyhemoglobin ABG Sodium ABG Potassium ABG Chloride ABG Glucose Carboxyhemoglobin Sodium 136 L Potassium Chloride 93.1 L Carbon Dioxide 33 H BUN 46 H Creatinine 1.4 H Glucose 151 H POC Glucose 129 H Lactic Acid Calcium 7.5 L Phosphorus Magnesium Ferritin Total Bilirubin Direct Bilirubin AST 126 H ALT 100 H Alkaline Phosphatase 226 H Ammonia Lactate Dehydrogenase Troponin T C-Reactive Protein Total Protein 5.0 L Albumin 2.2 L Triglycerides Cholesterol HDL Cholesterol Lipase Arterial Blood Glucose Arterial Blood Ionized Calcium Urine WBC (Auto) Salicylates Acetaminophen Coronavirus (PCR) 03/04/21 03/04/21 03/04/21 10:17 10:17 11:26 WBC RBC Hgb Hct MCV MCH RDW Seg Neutrophils % Monocytes % (Manual) Seg Neutrophils # Monocytes # (Manual) PT 15.6 H INR 1.18 H D-Dimer Heparin Anti-Xa Level ABG pH POC ABG pCO2 POC ABG pO2 ABG Hemoglobin ABG Oxyhemoglobin ABG Sodium ABG Potassium ABG Chloride ABG Glucose Carboxyhemoglobin Sodium Potassium Chloride Carbon Dioxide BUN Creatinine Glucose POC Glucose 167 H Lactic Acid Calcium Phosphorus Magnesium Ferritin Total Bilirubin Direct Bilirubin AST ALT Alkaline Phosphatase Ammonia Lactate Dehydrogenase Troponin T C-Reactive Protein Total Protein Albumin Triglycerides Cholesterol HDL Cholesterol Lipase 78 H Arterial Blood Glucose Arterial Blood Ionized Calcium Urine WBC (Auto) Salicylates Acetaminophen Coronavirus (PCR) 03/04/21 03/04/21 03/04/21 13:04 16:26 17:58 WBC RBC Hgb 7.7 L Hct 23.2 L MCV MCH RDW Seg Neutrophils % Monocytes % (Manual) Seg Neutrophils # Monocytes # (Manual) PT INR D-Dimer Heparin Anti-Xa Level < 0.10 L ABG pH POC ABG pCO2 POC ABG pO2 ABG Hemoglobin ABG Oxyhemoglobin ABG Sodium ABG Potassium ABG Chloride ABG Glucose Carboxyhemoglobin Sodium Potassium Chloride Carbon Dioxide BUN Creatinine Glucose POC Glucose 167 H Lactic Acid Calcium Phosphorus Magnesium Ferritin Total Bilirubin Direct Bilirubin AST ALT Alkaline Phosphatase Ammonia Lactate Dehydrogenase Troponin T C-Reactive Protein Total Protein Albumin Triglycerides Cholesterol HDL Cholesterol Lipase Arterial Blood Glucose Arterial Blood Ionized Calcium Urine WBC (Auto) Salicylates Acetaminophen Coronavirus (PCR) 03/04/21 03/05/21 03/05/21 23:47 04:00 05:06 WBC RBC Hgb Hct MCV MCH RDW Seg Neutrophils % Monocytes % (Manual) Seg Neutrophils # Monocytes # (Manual) PT INR D-Dimer Heparin Anti-Xa Level ABG pH POC ABG pCO2 POC ABG pO2 129.1 H ABG Hemoglobin 8.3 L ABG Oxyhemoglobin ABG Sodium 131.4 L ABG Potassium ABG Chloride 95.0 L ABG Glucose 153 H Carboxyhemoglobin Sodium Potassium Chloride Carbon Dioxide BUN Creatinine Glucose POC Glucose 153 H 139 H Lactic Acid Calcium Phosphorus Magnesium Ferritin Total Bilirubin Direct Bilirubin AST ALT Alkaline Phosphatase Ammonia Lactate Dehydrogenase Troponin T C-Reactive Protein Total Protein Albumin Triglycerides Cholesterol HDL Cholesterol Lipase Arterial Blood Glucose 153 H Arterial Blood Ionized Calcium Urine WBC (Auto) Salicylates Acetaminophen Coronavirus (PCR) 03/05/21 03/05/21 03/05/21 11:43 13:35 13:35 WBC RBC 2.38 L Hgb 7.8 L Hct 23.8 L MCV 100 H MCH 33 H RDW 18.2 H Seg Neutrophils % Monocytes % (Manual) Seg Neutrophils # Monocytes # (Manual) PT INR D-Dimer Heparin Anti-Xa Level ABG pH POC ABG pCO2 POC ABG pO2 ABG Hemoglobin ABG Oxyhemoglobin ABG Sodium ABG Potassium ABG Chloride ABG Glucose Carboxyhemoglobin Sodium Potassium Chloride 94.4 L Carbon Dioxide BUN 49 H Creatinine 1.6 H Glucose 165 H POC Glucose 174 H Lactic Acid Calcium 7.5 L Phosphorus Magnesium Ferritin Total Bilirubin Direct Bilirubin AST ALT Alkaline Phosphatase Ammonia Lactate Dehydrogenase Troponin T C-Reactive Protein Total Protein Albumin Triglycerides Cholesterol HDL Cholesterol Lipase Arterial Blood Glucose Arterial Blood Ionized Calcium Urine WBC (Auto) Salicylates Acetaminophen Coronavirus (PCR) 03/05/21 03/05/21 03/05/21 17:57 21:27 Unknown WBC RBC Hgb Hct MCV MCH RDW Seg Neutrophils % Monocytes % (Manual) Seg Neutrophils # Monocytes # (Manual) PT INR D-Dimer Heparin Anti-Xa Level ABG pH POC ABG pCO2 POC ABG pO2 ABG Hemoglobin ABG Oxyhemoglobin ABG Sodium ABG Potassium ABG Chloride ABG Glucose Carboxyhemoglobin Sodium Potassium Chloride Carbon Dioxide BUN Creatinine Glucose POC Glucose 129 H 129 H Lactic Acid Calcium Phosphorus Magnesium Ferritin Total Bilirubin Direct Bilirubin AST ALT Alkaline Phosphatase Ammonia Lactate Dehydrogenase Troponin T C-Reactive Protein Total Protein Albumin Triglycerides Cholesterol HDL Cholesterol Lipase Arterial Blood Glucose Arterial Blood Ionized Calcium Urine WBC (Auto) Salicylates Acetaminophen Coronavirus (PCR) Positive A 03/06/21 03/06/21 03/06/21 03:30 04:30 05:20 WBC 15.2 H RBC 2.48 L Hgb 8.2 L Hct 24.9 L MCV 100 H MCH 33 H RDW 18.6 H Seg Neutrophils % 72.6 H Monocytes % (Manual) Seg Neutrophils # 11.1 H Monocytes # (Manual) PT INR D-Dimer Heparin Anti-Xa Level ABG pH POC ABG pCO2 49.7 H POC ABG pO2 65.1 L ABG Hemoglobin 9.1 L ABG Oxyhemoglobin 90.2 L ABG Sodium 131.2 L ABG Potassium ABG Chloride 96.0 L ABG Glucose 133 H Carboxyhemoglobin Sodium Potassium Chloride Carbon Dioxide BUN Creatinine Glucose POC Glucose Lactic Acid Calcium Phosphorus Magnesium Ferritin Total Bilirubin Direct Bilirubin AST ALT Alkaline Phosphatase Ammonia Lactate Dehydrogenase Troponin T C-Reactive Protein 27.90 H Total Protein Albumin Triglycerides Cholesterol HDL Cholesterol Lipase Arterial Blood Glucose 133 H Arterial Blood Ionized Calcium 4.2 L Urine WBC (Auto) Salicylates Acetaminophen Coronavirus (PCR) 03/06/21 03/06/21 03/06/21 05:20 05:30 11:52 WBC RBC Hgb Hct MCV MCH RDW Seg Neutrophils % Monocytes % (Manual) Seg Neutrophils # Monocytes # (Manual) PT INR D-Dimer Heparin Anti-Xa Level ABG pH POC ABG pCO2 POC ABG pO2 ABG Hemoglobin ABG Oxyhemoglobin ABG Sodium ABG Potassium ABG Chloride ABG Glucose Carboxyhemoglobin Sodium 135 L Potassium Chloride 94.5 L Carbon Dioxide BUN 49 H Creatinine Glucose 121 H POC Glucose 123 H 123 H Lactic Acid Calcium 7.3 L Phosphorus Magnesium 1.50 L Ferritin Total Bilirubin Direct Bilirubin AST 120 H ALT 74 H Alkaline Phosphatase 306 H Ammonia Lactate Dehydrogenase Troponin T C-Reactive Protein Total Protein 4.5 L Albumin 2.0 L Triglycerides Cholesterol HDL Cholesterol Lipase Arterial Blood Glucose Arterial Blood Ionized Calcium Urine WBC (Auto) Salicylates Acetaminophen Coronavirus (PCR) 03/06/21 03/06/21 03/06/21 14:34 17:45 23:36 WBC RBC Hgb Hct MCV MCH RDW Seg Neutrophils % Monocytes % (Manual) Seg Neutrophils # Monocytes # (Manual) PT INR D-Dimer Heparin Anti-Xa Level ABG pH POC ABG pCO2 POC ABG pO2 ABG Hemoglobin ABG Oxyhemoglobin ABG Sodium ABG Potassium ABG Chloride ABG Glucose Carboxyhemoglobin Sodium Potassium Chloride Carbon Dioxide BUN Creatinine Glucose POC Glucose 140 H 209 H Lactic Acid Calcium Phosphorus Magnesium Ferritin Total Bilirubin Direct Bilirubin AST ALT Alkaline Phosphatase Ammonia Lactate Dehydrogenase Troponin T C-Reactive Protein Total Protein Albumin Triglycerides Cholesterol HDL Cholesterol Lipase Arterial Blood Glucose Arterial Blood Ionized Calcium Urine WBC (Auto) 103.0 H Salicylates Acetaminophen Coronavirus (PCR) 03/07/21 03/07/21 03/07/21 03:00 05:32 08:16 WBC RBC Hgb Hct MCV MCH RDW Seg Neutrophils % Monocytes % (Manual) Seg Neutrophils # Monocytes # (Manual) PT INR D-Dimer Heparin Anti-Xa Level ABG pH POC ABG pCO2 POC ABG pO2 ABG Hemoglobin 8.9 L ABG Oxyhemoglobin ABG Sodium 131.4 L ABG Potassium ABG Chloride ABG Glucose 224 H Carboxyhemoglobin Sodium 136 L Potassium Chloride 95.3 L Carbon Dioxide BUN 45 H Creatinine Glucose 210 H POC Glucose 213 H Lactic Acid Calcium 8.0 L Phosphorus Magnesium Ferritin Total Bilirubin 1.30 H Direct Bilirubin AST 144 H ALT 66 H Alkaline Phosphatase 335 H Ammonia Lactate Dehydrogenase Troponin T C-Reactive Protein Total Protein 4.9 L Albumin 2.1 L Triglycerides Cholesterol HDL Cholesterol Lipase Arterial Blood Glucose 224 H Arterial Blood Ionized Calcium 4.3 L Urine WBC (Auto) Salicylates Acetaminophen Coronavirus (PCR) 03/07/21 03/07/21 03/07/21 08:16 08:16 08:16 WBC RBC 2.47 L Hgb 8.2 L Hct 24.6 L MCV 100 H MCH 33 H RDW 18.1 H Seg Neutrophils % Monocytes % (Manual) Seg Neutrophils # Monocytes # (Manual) PT INR D-Dimer 403.72 H Heparin Anti-Xa Level ABG pH POC ABG pCO2 POC ABG pO2 ABG Hemoglobin ABG Oxyhemoglobin ABG Sodium ABG Potassium ABG Chloride ABG Glucose Carboxyhemoglobin Sodium Potassium Chloride Carbon Dioxide BUN Creatinine Glucose POC Glucose Lactic Acid Calcium Phosphorus Magnesium Ferritin Total Bilirubin Direct Bilirubin AST ALT Alkaline Phosphatase Ammonia Lactate Dehydrogenase 453 H Troponin T C-Reactive Protein 32.50 H Total Protein Albumin Triglycerides Cholesterol HDL Cholesterol Lipase Arterial Blood Glucose Arterial Blood Ionized Calcium Urine WBC (Auto) Salicylates Acetaminophen Coronavirus (PCR) 03/07/21 03/07/21 03/07/21 08:16 11:24 17:22 WBC RBC Hgb Hct MCV MCH RDW Seg Neutrophils % Monocytes % (Manual) Seg Neutrophils # Monocytes # (Manual) PT INR D-Dimer Heparin Anti-Xa Level ABG pH POC ABG pCO2 POC ABG pO2 ABG Hemoglobin ABG Oxyhemoglobin ABG Sodium ABG Potassium ABG Chloride ABG Glucose Carboxyhemoglobin Sodium Potassium Chloride Carbon Dioxide BUN Creatinine Glucose POC Glucose 205 H 211 H Lactic Acid Calcium Phosphorus Magnesium Ferritin > 2000.0 H Total Bilirubin Direct Bilirubin AST ALT Alkaline Phosphatase Ammonia Lactate Dehydrogenase Troponin T C-Reactive Protein Total Protein Albumin Triglycerides Cholesterol HDL Cholesterol Lipase Arterial Blood Glucose Arterial Blood Ionized Calcium Urine WBC (Auto) Salicylates Acetaminophen Coronavirus (PCR) 03/07/21 03/08/21 03/08/21 Unknown 00:05 04:00 WBC RBC Hgb Hct MCV MCH RDW Seg Neutrophils % Monocytes % (Manual) Seg Neutrophils # Monocytes # (Manual) PT INR D-Dimer Heparin Anti-Xa Level 0.94 H ABG pH 7.452 H POC ABG pCO2 POC ABG pO2 75.5 L ABG Hemoglobin 10.0 L ABG Oxyhemoglobin 93.5 L ABG Sodium 134.7 L ABG Potassium ABG Chloride ABG Glucose 268 H Carboxyhemoglobin 0.3 L Sodium Potassium Chloride Carbon Dioxide BUN Creatinine Glucose POC Glucose 253 H Lactic Acid Calcium Phosphorus Magnesium Ferritin Total Bilirubin Direct Bilirubin AST ALT Alkaline Phosphatase Ammonia Lactate Dehydrogenase Troponin T C-Reactive Protein Total Protein Albumin Triglycerides Cholesterol HDL Cholesterol Lipase Arterial Blood Glucose 268 H Arterial Blood Ionized Calcium 4.5 L Urine WBC (Auto) Salicylates Acetaminophen Coronavirus (PCR) 03/08/21 03/08/21 03/08/21 05:27 06:10 06:10 WBC RBC 2.62 L Hgb 8.4 L Hct 26.0 L MCV 100 H MCH RDW 18.0 H Seg Neutrophils % Monocytes % (Manual) Seg Neutrophils # Monocytes # (Manual) PT INR D-Dimer Heparin Anti-Xa Level ABG pH POC ABG pCO2 POC ABG pO2 ABG Hemoglobin ABG Oxyhemoglobin ABG Sodium ABG Potassium ABG Chloride ABG Glucose Carboxyhemoglobin Sodium Potassium Chloride Carbon Dioxide BUN 49 H Creatinine Glucose 280 H POC Glucose 273 H Lactic Acid Calcium Phosphorus Magnesium Ferritin Total Bilirubin Direct Bilirubin AST 130 H ALT 68 H Alkaline Phosphatase 440 H Ammonia Lactate Dehydrogenase Troponin T C-Reactive Protein Total Protein 5.3 L Albumin 1.9 L Triglycerides Cholesterol HDL Cholesterol Lipase Arterial Blood Glucose Arterial Blood Ionized Calcium Urine WBC (Auto) Salicylates Acetaminophen Coronavirus (PCR) 03/08/21 03/08/21 03/08/21 11:27 17:56 23:20 WBC RBC Hgb Hct MCV MCH RDW Seg Neutrophils % Monocytes % (Manual) Seg Neutrophils # Monocytes # (Manual) PT INR D-Dimer Heparin Anti-Xa Level ABG pH POC ABG pCO2 POC ABG pO2 ABG Hemoglobin ABG Oxyhemoglobin ABG Sodium ABG Potassium ABG Chloride ABG Glucose Carboxyhemoglobin Sodium Potassium Chloride Carbon Dioxide BUN Creatinine Glucose POC Glucose 258 H 279 H 289 H Lactic Acid Calcium Phosphorus Magnesium Ferritin Total Bilirubin Direct Bilirubin AST ALT Alkaline Phosphatase Ammonia Lactate Dehydrogenase Troponin T C-Reactive Protein Total Protein Albumin Triglycerides Cholesterol HDL Cholesterol Lipase Arterial Blood Glucose Arterial Blood Ionized Calcium Urine WBC (Auto) Salicylates Acetaminophen Coronavirus (PCR) 03/09/21 03/09/21 03/09/21 04:00 05:12 08:00 WBC RBC Hgb Hct MCV MCH RDW Seg Neutrophils % Monocytes % (Manual) Seg Neutrophils # Monocytes # (Manual) PT INR D-Dimer 249.59 H Heparin Anti-Xa Level ABG pH 7.456 H POC ABG pCO2 POC ABG pO2 ABG Hemoglobin 8.9 L ABG Oxyhemoglobin ABG Sodium 135.6 L ABG Potassium ABG Chloride ABG Glucose 298 H Carboxyhemoglobin 0.3 L Sodium Potassium Chloride Carbon Dioxide BUN Creatinine Glucose POC Glucose 267 H Lactic Acid Calcium Phosphorus Magnesium Ferritin Total Bilirubin Direct Bilirubin AST ALT Alkaline Phosphatase Ammonia Lactate Dehydrogenase Troponin T C-Reactive Protein Total Protein Albumin Triglycerides Cholesterol HDL Cholesterol Lipase Arterial Blood Glucose 298 H Arterial Blood Ionized Calcium 4.5 L Urine WBC (Auto) Salicylates Acetaminophen Coronavirus (PCR) 03/09/21 03/09/21 03/09/21 08:00 08:00 08:00 WBC RBC Hgb Hct MCV MCH RDW Seg Neutrophils % Monocytes % (Manual) Seg Neutrophils # Monocytes # (Manual) PT INR D-Dimer Heparin Anti-Xa Level ABG pH POC ABG pCO2 POC ABG pO2 ABG Hemoglobin ABG Oxyhemoglobin ABG Sodium ABG Potassium ABG Chloride ABG Glucose Carboxyhemoglobin Sodium Potassium Chloride Carbon Dioxide BUN 44 H Creatinine Glucose 289 H POC Glucose Lactic Acid Calcium Phosphorus Magnesium Ferritin 2743.0 H Total Bilirubin Direct Bilirubin AST 134 H ALT 62 H Alkaline Phosphatase 527 H Ammonia Lactate Dehydrogenase 459 H Troponin T C-Reactive Protein 10.60 H Total Protein 5.0 L Albumin 2.2 L Triglycerides Cholesterol HDL Cholesterol Lipase Arterial Blood Glucose Arterial Blood Ionized Calcium Urine WBC (Auto) Salicylates Acetaminophen Coronavirus (PCR) 03/09/21 03/09/21 03/09/21 08:00 11:52 18:05 WBC RBC 2.60 L Hgb 8.5 L Hct 25.5 L MCV 98 H MCH 33 H RDW 18.1 H Seg Neutrophils % Monocytes % (Manual) Seg Neutrophils # Monocytes # (Manual) PT INR D-Dimer Heparin Anti-Xa Level ABG pH POC ABG pCO2 POC ABG pO2 ABG Hemoglobin ABG Oxyhemoglobin ABG Sodium ABG Potassium ABG Chloride ABG Glucose Carboxyhemoglobin Sodium Potassium Chloride Carbon Dioxide BUN Creatinine Glucose POC Glucose 306 H 293 H Lactic Acid Calcium Phosphorus Magnesium Ferritin Total Bilirubin Direct Bilirubin AST ALT Alkaline Phosphatase Ammonia Lactate Dehydrogenase Troponin T C-Reactive Protein Total Protein Albumin Triglycerides Cholesterol HDL Cholesterol Lipase Arterial Blood Glucose Arterial Blood Ionized Calcium Urine WBC (Auto) Salicylates Acetaminophen Coronavirus (PCR) 03/09/21 03/10/21 03/10/21 23:21 04:38 05:25 WBC RBC Hgb 8.6 L Hct 26.0 L MCV MCH RDW Seg Neutrophils % Monocytes % (Manual) Seg Neutrophils # Monocytes # (Manual) PT INR D-Dimer Heparin Anti-Xa Level ABG pH POC ABG pCO2 POC ABG pO2 ABG Hemoglobin ABG Oxyhemoglobin ABG Sodium ABG Potassium ABG Chloride ABG Glucose Carboxyhemoglobin Sodium Potassium Chloride Carbon Dioxide BUN Creatinine Glucose POC Glucose 306 H 310 H Lactic Acid Calcium Phosphorus Magnesium Ferritin Total Bilirubin Direct Bilirubin AST ALT Alkaline Phosphatase Ammonia Lactate Dehydrogenase Troponin T C-Reactive Protein Total Protein Albumin Triglycerides Cholesterol HDL Cholesterol Lipase Arterial Blood Glucose Arterial Blood Ionized Calcium Urine WBC (Auto) Salicylates Acetaminophen Coronavirus (PCR) 03/10/21 03/10/21 03/10/21 05:25 12:33 12:52 WBC RBC Hgb Hct MCV MCH RDW Seg Neutrophils % Monocytes % (Manual) Seg Neutrophils # Monocytes # (Manual) PT INR D-Dimer Heparin Anti-Xa Level ABG pH 7.487 H POC ABG pCO2 POC ABG pO2 62.1 L ABG Hemoglobin 9.4 L ABG Oxyhemoglobin 89.7 L ABG Sodium ABG Potassium ABG Chloride ABG Glucose 350 H Carboxyhemoglobin 0.2 L Sodium Potassium Chloride Carbon Dioxide 32 H BUN 45 H Creatinine Glucose 341 H POC Glucose 340 H Lactic Acid Calcium Phosphorus Magnesium Ferritin Total Bilirubin Direct Bilirubin AST ALT Alkaline Phosphatase Ammonia Lactate Dehydrogenase Troponin T C-Reactive Protein Total Protein Albumin Triglycerides Cholesterol HDL Cholesterol Lipase Arterial Blood Glucose 350 H Arterial Blood Ionized Calcium Urine WBC (Auto) Salicylates Acetaminophen Coronavirus (PCR) 03/10/21 03/10/21 03/11/21 17:05 22:57 04:58 WBC RBC Hgb Hct MCV MCH RDW Seg Neutrophils % Monocytes % (Manual) Seg Neutrophils # Monocytes # (Manual) PT INR D-Dimer Heparin Anti-Xa Level ABG pH POC ABG pCO2 POC ABG pO2 ABG Hemoglobin ABG Oxyhemoglobin ABG Sodium ABG Potassium ABG Chloride ABG Glucose Carboxyhemoglobin Sodium Potassium Chloride Carbon Dioxide BUN Creatinine Glucose POC Glucose 298 H 241 H 261 H Lactic Acid Calcium Phosphorus Magnesium Ferritin Total Bilirubin Direct Bilirubin AST ALT Alkaline Phosphatase Ammonia Lactate Dehydrogenase Troponin T C-Reactive Protein Total Protein Albumin Triglycerides Cholesterol HDL Cholesterol Lipase Arterial Blood Glucose Arterial Blood Ionized Calcium Urine WBC (Auto) Salicylates Acetaminophen Coronavirus (PCR) 03/11/21 03/11/21 03/11/21 06:54 06:54 06:54 WBC RBC Hgb Hct MCV MCH RDW Seg Neutrophils % Monocytes % (Manual) Seg Neutrophils # Monocytes # (Manual) PT INR D-Dimer 238.43 H Heparin Anti-Xa Level ABG pH POC ABG pCO2 POC ABG pO2 ABG Hemoglobin ABG Oxyhemoglobin ABG Sodium ABG Potassium ABG Chloride ABG Glucose Carboxyhemoglobin Sodium 146 H Potassium Chloride Carbon Dioxide 31 H BUN 41 H Creatinine Glucose 255 H POC Glucose Lactic Acid Calcium Phosphorus Magnesium Ferritin 3346.0 H Total Bilirubin Direct Bilirubin AST ALT Alkaline Phosphatase Ammonia Lactate Dehydrogenase 557 H Troponin T C-Reactive Protein 4.70 H Total Protein Albumin Triglycerides Cholesterol HDL Cholesterol Lipase Arterial Blood Glucose Arterial Blood Ionized Calcium Urine WBC (Auto) Salicylates Acetaminophen Coronavirus (PCR) 03/11/21 03/11/21 03/11/21 06:54 11:25 17:41 WBC RBC 2.76 L Hgb 8.9 L Hct 27.0 L MCV 98 H MCH RDW 18.3 H Seg Neutrophils % Monocytes % (Manual) Seg Neutrophils # Monocytes # (Manual) PT INR D-Dimer Heparin Anti-Xa Level ABG pH POC ABG pCO2 POC ABG pO2 ABG Hemoglobin ABG Oxyhemoglobin ABG Sodium ABG Potassium ABG Chloride ABG Glucose Carboxyhemoglobin Sodium Potassium Chloride Carbon Dioxide BUN Creatinine Glucose POC Glucose 255 H 292 H Lactic Acid Calcium Phosphorus Magnesium Ferritin Total Bilirubin Direct Bilirubin AST ALT Alkaline Phosphatase Ammonia Lactate Dehydrogenase Troponin T C-Reactive Protein Total Protein Albumin Triglycerides Cholesterol HDL Cholesterol Lipase Arterial Blood Glucose Arterial Blood Ionized Calcium Urine WBC (Auto) Salicylates Acetaminophen Coronavirus (PCR) 03/11/21 03/12/21 03/12/21 23:26 04:44 05:16 WBC RBC Hgb Hct MCV MCH RDW Seg Neutrophils % Monocytes % (Manual) Seg Neutrophils # Monocytes # (Manual) PT INR D-Dimer Heparin Anti-Xa Level ABG pH POC ABG pCO2 POC ABG pO2 ABG Hemoglobin ABG Oxyhemoglobin ABG Sodium ABG Potassium ABG Chloride ABG Glucose Carboxyhemoglobin Sodium Potassium Chloride Carbon Dioxide BUN Creatinine Glucose POC Glucose 289 H 255 H Lactic Acid Calcium Phosphorus Magnesium Ferritin Total Bilirubin Direct Bilirubin AST ALT Alkaline Phosphatase Ammonia Lactate Dehydrogenase Troponin T 0.149 H* C-Reactive Protein Total Protein Albumin Triglycerides Cholesterol HDL Cholesterol Lipase Arterial Blood Glucose Arterial Blood Ionized Calcium Urine WBC (Auto) Salicylates Acetaminophen Coronavirus (PCR) 03/12/21 03/12/21 03/12/21 12:02 15:00 17:28 WBC RBC Hgb Hct MCV MCH RDW Seg Neutrophils % Monocytes % (Manual) Seg Neutrophils # Monocytes # (Manual) PT INR D-Dimer Heparin Anti-Xa Level ABG pH POC ABG pCO2 POC ABG pO2 ABG Hemoglobin ABG Oxyhemoglobin ABG Sodium ABG Potassium ABG Chloride ABG Glucose Carboxyhemoglobin Sodium Potassium 3.2 L Chloride Carbon Dioxide BUN 39 H Creatinine 0.7 L Glucose 258 H POC Glucose 237 H 257 H Lactic Acid Calcium 8.3 L Phosphorus Magnesium Ferritin Total Bilirubin 2.20 H Direct Bilirubin AST 181 H ALT 129 H Alkaline Phosphatase 541 H Ammonia Lactate Dehydrogenase Troponin T C-Reactive Protein Total Protein 5.0 L Albumin 2.0 L Triglycerides Cholesterol HDL Cholesterol Lipase Arterial Blood Glucose Arterial Blood Ionized Calcium Urine WBC (Auto) Salicylates Acetaminophen Coronavirus (PCR) 03/12/21 03/12/21 03/13/21 21:51 23:15 05:44 WBC RBC Hgb Hct MCV MCH RDW Seg Neutrophils % Monocytes % (Manual) Seg Neutrophils # Monocytes # (Manual) PT INR D-Dimer Heparin Anti-Xa Level ABG pH POC ABG pCO2 POC ABG pO2 ABG Hemoglobin ABG Oxyhemoglobin ABG Sodium ABG Potassium ABG Chloride ABG Glucose Carboxyhemoglobin Sodium Potassium Chloride Carbon Dioxide BUN Creatinine Glucose POC Glucose 253 H 287 H 247 H Lactic Acid Calcium Phosphorus Magnesium Ferritin Total Bilirubin Direct Bilirubin AST ALT Alkaline Phosphatase Ammonia Lactate Dehydrogenase Troponin T C-Reactive Protein Total Protein Albumin Triglycerides Cholesterol HDL Cholesterol Lipase Arterial Blood Glucose Arterial Blood Ionized Calcium Urine WBC (Auto) Salicylates Acetaminophen Coronavirus (PCR) 03/13/21 03/13/21 03/14/21 17:03 23:31 03:40 WBC RBC Hgb Hct MCV MCH RDW Seg Neutrophils % Monocytes % (Manual) Seg Neutrophils # Monocytes # (Manual) PT INR D-Dimer 475.91 H Heparin Anti-Xa Level ABG pH POC ABG pCO2 POC ABG pO2 ABG Hemoglobin ABG Oxyhemoglobin ABG Sodium ABG Potassium ABG Chloride ABG Glucose Carboxyhemoglobin Sodium Potassium Chloride Carbon Dioxide BUN Creatinine Glucose POC Glucose 228 H 275 H Lactic Acid Calcium Phosphorus Magnesium Ferritin Total Bilirubin Direct Bilirubin AST ALT Alkaline Phosphatase Ammonia Lactate Dehydrogenase Troponin T C-Reactive Protein Total Protein Albumin Triglycerides Cholesterol HDL Cholesterol Lipase Arterial Blood Glucose Arterial Blood Ionized Calcium Urine WBC (Auto) Salicylates Acetaminophen Coronavirus (PCR) 03/14/21 03/14/21 03/14/21 03:40 03:40 03:40 WBC RBC 2.25 L Hgb 7.4 L Hct 22.2 L MCV 99 H MCH 33 H RDW 18.5 H Seg Neutrophils % Monocytes % (Manual) Seg Neutrophils # Monocytes # (Manual) PT INR D-Dimer Heparin Anti-Xa Level ABG pH POC ABG pCO2 POC ABG pO2 ABG Hemoglobin ABG Oxyhemoglobin ABG Sodium ABG Potassium ABG Chloride ABG Glucose Carboxyhemoglobin Sodium Potassium 3.3 L Chloride Carbon Dioxide 37 H D BUN 24 H Creatinine 0.6 L Glucose 180 H POC Glucose Lactic Acid Calcium Phosphorus Magnesium Ferritin 3103.0 H Total Bilirubin 1.60 H Direct Bilirubin AST 283 H ALT 188 H Alkaline Phosphatase 619 H Ammonia Lactate Dehydrogenase 588 H Troponin T C-Reactive Protein 4.00 H Total Protein 4.8 L Albumin 2.2 L Triglycerides Cholesterol HDL Cholesterol Lipase Arterial Blood Glucose Arterial Blood Ionized Calcium Urine WBC (Auto) Salicylates Acetaminophen Coronavirus (PCR) 03/15/21 03/15/21 03/15/21 00:34 05:00 05:00 WBC RBC 2.40 L Hgb 7.8 L Hct 23.6 L MCV 99 H MCH 33 H RDW 18.3 H Seg Neutrophils % Monocytes % (Manual) Seg Neutrophils # Monocytes # (Manual) PT INR D-Dimer Heparin Anti-Xa Level ABG pH POC ABG pCO2 POC ABG pO2 ABG Hemoglobin ABG Oxyhemoglobin ABG Sodium ABG Potassium ABG Chloride ABG Glucose Carboxyhemoglobin Sodium Potassium Chloride Carbon Dioxide BUN Creatinine 0.6 L Glucose 238 H POC Glucose 287 H Lactic Acid Calcium 8.0 L Phosphorus Magnesium Ferritin Total Bilirubin 1.50 H Direct Bilirubin AST 189 H ALT 208 H Alkaline Phosphatase 659 H Ammonia Lactate Dehydrogenase Troponin T C-Reactive Protein Total Protein 5.1 L Albumin 2.1 L Triglycerides Cholesterol HDL Cholesterol Lipase Arterial Blood Glucose Arterial Blood Ionized Calcium Urine WBC (Auto) Salicylates Acetaminophen Coronavirus (PCR) 03/15/21 03/15/21 03/15/21 05:05 11:37 16:34 WBC RBC Hgb Hct MCV MCH RDW Seg Neutrophils % Monocytes % (Manual) Seg Neutrophils # Monocytes # (Manual) PT INR D-Dimer Heparin Anti-Xa Level ABG pH POC ABG pCO2 POC ABG pO2 ABG Hemoglobin ABG Oxyhemoglobin ABG Sodium ABG Potassium ABG Chloride ABG Glucose Carboxyhemoglobin Sodium Potassium Chloride Carbon Dioxide BUN Creatinine Glucose POC Glucose 238 H 236 H 280 H Lactic Acid Calcium Phosphorus Magnesium Ferritin Total Bilirubin Direct Bilirubin AST ALT Alkaline Phosphatase Ammonia Lactate Dehydrogenase Troponin T C-Reactive Protein Total Protein Albumin Triglycerides Cholesterol HDL Cholesterol Lipase Arterial Blood Glucose Arterial Blood Ionized Calcium Urine WBC (Auto) Salicylates Acetaminophen Coronavirus (PCR) 03/15/21 03/16/21 23:05 04:39 WBC RBC Hgb Hct MCV MCH RDW Seg Neutrophils % Monocytes % (Manual) Seg Neutrophils # Monocytes # (Manual) PT INR D-Dimer Heparin Anti-Xa Level ABG pH POC ABG pCO2 POC ABG pO2 ABG Hemoglobin ABG Oxyhemoglobin ABG Sodium ABG Potassium ABG Chloride ABG Glucose Carboxyhemoglobin Sodium Potassium Chloride Carbon Dioxide BUN Creatinine Glucose POC Glucose 336 H 205 H Lactic Acid Calcium Phosphorus Magnesium Ferritin Total Bilirubin Direct Bilirubin AST ALT Alkaline Phosphatase Ammonia Lactate Dehydrogenase Troponin T C-Reactive Protein Total Protein Albumin Triglycerides Cholesterol HDL Cholesterol Lipase Arterial Blood Glucose Arterial Blood Ionized Calcium Urine WBC (Auto) Salicylates Acetaminophen Coronavirus (PCR) Chest x-ray: image reviewed Allied health notes reviewed: RT
[2021-03-16 06:54] LABS: Blood Urea Nitrogen 16 mg/dL (9-20); Calcium 8.8 mg/dL (8.4-10.2); Hemolysis Index 1
[2021-03-16 06:55] LABS: BUN/Creatinine Ratio 32
[2021-03-16] MEDS: hydrALAZINE 25 MG TAB PO SCH ×3 (08:10→22:41)
[2021-03-16] MEDS: ASCORBIC ACID 500 MG TAB PO SCH ×2 (09:08→23:50)
[2021-03-16] MEDS: SENNOSIDES/DOCUSATE SODIUM 8.6/50 MG TAB FEEDTUBE SCH ×2 (09:08→23:50)
[2021-03-16] MEDS: ZINC SULFATE 220 MG CAP PO SCH ×2 (09:08→23:49)
[2021-03-16] MEDS: FAMOTIDINE 20 MG TAB PO SCH ×2 (09:08→23:50)
[2021-03-16] MEDS: ASPIRIN 81 MG TAB CHEW PO SCH (09:08)
[2021-03-16] MEDS: CHOLECALCIFEROL (VIT D3) 1000 UNIT (25 mcg) TAB PO SCH (09:08)
[2021-03-16] MEDS: ENOXAPARIN 150 MG/1 ML INJ SUB-Q SCH ×2 (09:09→23:48)
[2021-03-16] MEDS: CALCIUM CARB/VIT D3/MINERALS 600 MG/800 UNITS TAB PO SCH ×2 (09:09→23:48)
[2021-03-16] MEDS: guaiFENesin ER 600 MG TAB PO SCH ×2 (09:09→23:48)
--- NOTE | 2021-03-16 12:43 | Progress Note ---
Assessment and Plan Assessment and plan: This is a a 51 year old male admitted for for severe sepsis, respiratory failure, pneumonia and ALPHONSO. PMH: COPD, CHF, DM, DVT/PE, HTN, KAM, obesity, asthma PSx: none reported home meds: albuterol sulfate, advair, HCTZ, atrovent, glucophage, Klor-Con, midodrine, metoprolol, lasix, lantus, coumadin (from audit and home meds reconciliation) Social: unknown A/P Neuro: Metabolic encephalopathy -Resolved. -Now extbated Cardio: SR/ST: Acute on Chronic HFpEF (per cards), NSTEMI, h/o HTN, HLD, Prolonged QTc, SVT -Cardiology consulted, appreciate recommendations -midodrine d/c r/t HTN -BP monitoring per protocol -Labetalol PO -Per cardiology: 1. gentle IV diuresis when able 2. Echo 12/13/2020 - EF 55-60%, otherwise technically difficult study. Echo 05/2016 - LV mildly dilated, EF 55-60%, grade II diastolic dysfxn, RV mildly enlarged, normal RV sys fxn, LA mildly dilated, RA mildly dilated, mild-mod AR, mild [place], mild aortic root dilatation. Resp: Acute on chronic hypoxic respiratory failure, Bilateral PNA, hx COPD, KAM, asthma, ?PE -[facility] consulted, appreciate recommendations -MV, wean as tolerated -Intubated 03/01, tube exchange 03/09 OETT 8/0 @ 25 lip -nOW EXTUBATED 03/10 -Continuos SPO2 monitoring -abx with levaquin (03/02-03/07)-DC 03/05 r/t prolonged QTc -03/01 CT chest shows several pulmonary nodules within Right lung measuring 6-8 mm, increased interstitial prominence -? f/u outpt with PCP/pulmanology -03/10 CXR reviewed GI: Transaminitis, TF -GI consulted, appreciate recommendations -Trend LFTs -RUQ US shows no evidence of cholelithiasis, cholecytitis or choledocholithisis -CT abd/pelvis showed fatty infiltration of liver -Ntr consult for TF -PPI -BR [place] -last BM 03/06 -24 hr net (-) 225 : ALPHONSO (stable/resolved) -Nephrology consulted, appreciate recommendations -Pt was on HD at recent hospitalization at OSH -Renally dose mediations -Avoid nephrotoxic medications -Strict I&Os -Renal US shows no significant abnormality -Daily weights -Replete electrolytes -Trend BMP -s/p lasix x 2, prn hydral -Trial lasix again today Heme: DVT-R posterior tibial vein, h/o LLE DVT (December 2019)/ PE (failed Xa inhibitors per cards; on home coumadin) -evidenced on BLE Doppler US -Heparin gtt d/c to lovenox subq (03/09) -SCDs while in bed -Per cards: Eventually plan to transition to Coumadin ID: Severe Sepsis, B PNA, COVID 19 infection -s/p abx therapy (azithromycin 03/01-03/02, aztreonam 03/02, cefepime 03/01-03/02, levaquin 03/02-03/05, flagyl 03/01-03/02, vancomycin 03/01-03/02) -VAP bundle -MRSA (+) nares -COVID 19 PCR (+) -Decadron for 10 days (03/06-03/15) -Remdesivir (03/06-03/10) -Contact/Droplet precautions -03/01 BCx2 with NGTD, UC with NGTD, sputum culture normal sole -03/06 BC NGTD -Prone if needed -Vit C/D/Zinc Endo: DM -SSI, lantus (titrate as needed) -Accuchecks q6 -Avoid hypoglycemia FEN: Hypokalemia, Hypomagenesmia- Replace lines: condom cath, PIV, RADHA Disposition: ICU Full code The high probability of a clinically significant, sudden or life threatening deterioration of the [multi] system(s) required my full and direct attention, intervention and personal management. The aggregate critical care time was [40] minutes. This time is in addition to time spent performing reported procedures but includes the following: [x] Data Review and interpretation [x] Patient assessment and monitoring of vital signs [x] Documentation [x] Medication orders and management History Interval history: This is a 51-year-old -[place] male with COPD with chronic respiratory failure, CHFpEF, diabetes mellitus, DVT/PE on coumadin and hypertension who p resented to [facility] via EMS for AMS and hypoxia. On arrival of EMS oxygen saturation was about 88% on room air, blood pressure was said to be about 88/50 mmHg. Work-up in the emergency room reveals leukocytosis of 12.7, hemoglobin of 9.1 and hematocrit of 27.7, sodium of 132, lactic acid of 2.90, elevated liver enzymes and elevated troponin at 0.493. A CT of the chest showed findings concerning for atelectasis and or infiltrate, CT of the head was unremarkable. Patient was in severe respiratory distress upon arrival in the emergency room and subsequently intubated. Patient was admitted to the hospitalist service with consults to cardiology, CCM, GI, and neprohology for severe sepsis, respiratory failure, pneumonia and ALPHONSO. Of note patient was admitted to [facility] from 12/12-01/14 and was on HD during that admit. 03/03/21: Patient remains intubated, continue on heparin drip, monitor H&H and BMP. Continue empiric antibiotics, ID following. Follow ammonia level and LFT. According to cardiology patient indeed had preserved EF during his recent admission to [facility]. Plan to repeat 2D echo. Critical care following, wean off from vent as tolerated. 03/04: RN reported blood y secretions in OETT and clots, heparin gtt stopped and B LE US obtained which shows DVT, abx deescalated, heparin gtt restarted. 03/05: RN reported vomiting x1, promithazine x1 given, Qtc at 599 on EKG. AM labs pending. tmax 102.2, reculture with next spike, COVID 19 PCR. abx stopped re prolonged qtc and received CAP coverage. 03/06: Reported high TF residual, COVID PCR pending. Cr better today. tmax 100.7 03/07: radha placed yesterday, started on remdesivir re positive covid. ID consulted yesterday. SHERYL overnight. 03/08: SHERYL reported overnight. Patient is now hypertensive and midodrine has been held. Will now place on low dose antihtn and prn hydral. 03/09: Patient reportedly through tube and OETT was exchanged, patient was given paralytic for exchange. No acute events reported overnight. Patient noted to be hypertensive and we will trial Lasix again today. 03/10: PSV trial today. fentayl was stopped. BP maintaining. SHERYL overnight. 03/11: Patient was extuabted, awaiting Speech therapy, discussed with nursing staff at bedside, considering Hypertensive urgency, will do a bedside swallow eval and give oral meds if passed. Continue aspiration precautions. The patient has hx of Asthma, continue neb treatment. 03/12: Patient remains in ICU care secondary to SVT and unstable hemodynamics. Cardiology reevaluated patient was given adenosine and started on amnio drip. Still awaiting speech therapy evaluation although considering her current condition we will keep the patient n.p.o. Case discussed with custom feed mill operator helper and engineering equipment operator. Monitor electrolytes and correct as needed. 03/13: Patient this morning remains in normal sinus rhythm following the adenosine and amnio drip which is still going the latter I mean. I will start the patient on Lasix for 3 days and monitor her renal function. Patient is already on high dose of dexamethasone considering his history of bronchospasm disease. We will repeat a pulmonary evaluation we will correct electrolytes especially with the Lasix. CCT 35 pLAN DISCUSSED WITH THE PATIENT AND NURSE 03/14: Patient unfortunately is declining continues on high flow -70% intermittent altered mental status refusing all treatment plan. Psych saw the patient recommended Geodon as needed. Will transition some medications to IV. Continue encouraging patient to use BiPAP. Continue nebulizer treatment and steroid therapy. Pulmonary and cardiology input also appreciated. 03/15: Patient seen and examined, continue to wean oxygen flow as tolerated, Electrolytes replacement protocol inplace, LFT still elevated but trending down some. Again counselling provided to the patient about compliance. Adjust insulin. 03/16: Patient down to 50% FiO2 was saturating 92%. Will transfer to [facility]. Clinically he is showing some improvement. Continue restraints for supportive care continue to monitor for intermittent delirium. The high probability of a clinically significant, sudden or life threatening deterioration of the [pulmonary, neuro, cardiac] system(s) required my full and direct attention, intervention and personal management. The aggregate critical care time was [35] minutes. This time is in addition to time spent performing reported procedures but includes the following: [x] Data Review and interpretation [x] Patient assessment and monitoring of vital signs [x] Documentation [x] Medication orders and management History Interval history: Patient seen and examined, seen and examined this morning. still with intermittent delirium down to 50% FiO2. Hospitalist Physical - Physical exam Narrative exam: General appearance: Present: no acute distress, well-nourished, obese, generalized anasarca although improving - EENT Eyes: Present: PERRL, EOM intact ENT: clear oral mucosa - Neck Neck: Present: normal ROM - Respiratory Respiratory effort: normal Respiratory: bilateral: diminished - Cardiovascular Rhythm: regular Heart Sounds: Present: S1 & S2. Absent: systolic murmur, diastolic murmur - Extremities Extremities: no ischemia, pulses intact, pulses symmetrical, NOTED pitting edema, normal temperature, normal color - Abdominal General gastrointestinal: soft, non-tender, non-distended, normal bowel sounds - Integumentary Integumentary: Present: clear, warm, dry- see full documentation of skin exam in nursing assessment - Psychiatric Psychiatric: cooperative some times. - Neurologic Neurologic: moves all extremities - Allied Health Allied health notes reviewed: nursing, RT - Constitutional Vitals: Temp Pulse Resp BP Pulse Ox 99.5 F 101 H 19 107/58 87 03/16/21 11:43 03/16/21 09:01 03/16/21 09:01 03/16/21 09:01 03/16/21 09:01 General appearance: Present: no acute distress, well-nourished, obese, other (sedated) HEART Score - HEART Score Troponin: Troponin T 0.149 ng/mL (0.00-0.029) H* 03/12/21 04:44 Results - Labs CBC & Chem 7: 03/15/21 05:00 03/16/21 05:00 Labs: Laboratory Last Values WBC 8.3 K/mm3 (4.5-11.0) 03/15/21 05:00 RBC 2.40 M/mm3 (3.65-5.03) L 03/15/21 05:00 Hgb 7.8 gm/dl (11.8-15.2) L 03/15/21 05:00 Hct 23.6 % (35.5-45.6) L 03/15/21 05:00 MCV 99 fl (84-94) H 03/15/21 05:00 MCH 33 pg (28-32) H 03/15/21 05:00 MCHC 33 % (32-34) 03/15/21 05:00 RDW 18.3 % (13.2-15.2) H 03/15/21 05:00 Plt Count 265 K/mm3 (140-440) 03/15/21 05:00 Lymph % (Auto) 22.4 % (13.4-35.0) 03/06/21 05:20 Luce % (Auto) 4.5 % (0.0-7.3) 03/06/21 05:20 Eos % (Auto) 0.2 % (0.0-4.3) 03/06/21 05:20 Baso % (Auto) 0.3 % (0.0-1.8) 03/06/21 05:20 Lymph # (Auto) 3.4 K/mm3 (1.2-5.4) 03/06/21 05:20 Luce # (Auto) 0.7 K/mm3 (0.0-0.8) 03/06/21 05:20 Eos # (Auto) 0.0 K/mm3 (0.0-0.4) 03/06/21 05:20 Baso # (Auto) 0.1 K/mm3 (0.0-0.1) 03/06/21 05:20 Add Manual Diff Complete 03/01/21 19:21 Total Counted 100 03/01/21 19:21 Seg Neutrophils % 72.6 % (40.0-70.0) H 03/06/21 05:20 Seg Neuts % (Manual) 49.0 % (40.0-70.0) 03/01/21 19:21 Lymphocytes % (Manual) 32.0 % (13.4-35.0) 03/01/21 19:21 Monocytes % (Manual) 17.0 % (0.0-7.3) H 03/01/21 19:21 Eosinophils % (Manual) 1.0 % (0.0-4.3) 03/01/21 19:21 Basophils % (Manual) 1.0 % (0.0-1.8) 03/01/21 19:21 Nucleated RBC % Not Reportable 03/01/21 19:21 Seg Neutrophils # 11.1 K/mm3 (1.8-7.7) H 03/06/21 05:20 Seg Neutrophils # Man 6.2 K/mm3 (1.8-7.7) 03/01/21 19:21 Band Neutrophils # 0.0 K/mm3 03/01/21 19:21 Lymphocytes # (Manual) 4.1 K/mm3 (1.2-5.4) 03/01/21 19:21 Abs React Lymphs (Man) 0.0 K/mm3 03/01/21 19:21 Monocytes # (Manual) 2.2 K/mm3 (0.0-0.8) H 03/01/21 19:21 Eosinophils # (Manual) 0.1 K/mm3 (0.0-0.4) 03/01/21 19:21 Basophils # (Manual) 0.1 K/mm3 (0.0-0.1) 03/01/21 19:21 Metamyelocytes # 0.0 K/mm3 03/01/21 19:21 Myelocytes # 0.0 K/mm3 03/01/21 19:21 Promyelocytes # 0.0 K/mm3 03/01/21 19:21 Blast Cells # 0.0 K/mm3 03/01/21 19:21 WBC Morphology Not Reportable 03/01/21 19:21 Hypersegmented Neuts Not Reportable 03/01/21 19:21 Hyposegmented Neuts Not Reportable 03/01/21 19:21 Hypogranular Neuts Not Reportable 03/01/21 19:21 Smudge Cells Not Reportable 03/01/21 19:21 Toxic Granulation Not Reportable 03/01/21 19:21 Toxic Vacuolation Not Reportable 03/01/21 19:21 Dohle Bodies Not Reportable 03/01/21 19:21 Pelger-Huet Anomaly Not Reportable 03/01/21 19:21 Katherine Rods Not Reportable 03/01/21 19:21 Platelet Estimate Not Reportable 03/01/21 19:21 Clumped Platelets Not Reportable 03/01/21 19:21 Plt Clumps, EDTA Not Reportable 03/01/21 19:21 Large Platelets Not Reportable 03/01/21 19:21 Giant Platelets Not Reportable 03/01/21 19:21 Platelet Satelliting Not Reportable 03/01/21 19:21 Plt Morphology Comment Not Reportable 03/01/21 19:21 RBC Morphology Not Reportable 03/01/21 19:21 Dimorphic RBCs Not Reportable 03/01/21 19:21 Polychromasia Not Reportable 03/01/21 19:21 Hypochromasia Not Reportable 03/01/21 19:21 Poikilocytosis Not Reportable 03/01/21 19:21 Anisocytosis Rare 03/01/21 19:21 Microcytosis Not Reportable 03/01/21 19:21 Macrocytosis Not Reportable 03/01/21 19:21 Spherocytes Not Reportable 03/01/21 19:21 Pappenheimer Bodies Not Reportable 03/01/21 19:21 Sickle Cells Not Reportable 03/01/21 19:21 Target Cells Not Reportable 03/01/21 19:21 Tear Drop Cells Not Reportable 03/01/21 19:21 Ovalocytes Not Reportable 03/01/21 19:21 Helmet Cells Not Reportable 03/01/21 19:21 [place] Bodies Not Reportable 03/01/21 19:21 [place] Rings Not Reportable 03/01/21 19:21 Dusty Cells Not Reportable 03/01/21 19:21 Bite Cells Not Reportable 03/01/21 19:21 Crenated Cell Not Reportable 03/01/21 19:21 Elliptocytes Not Reportable 03/01/21 19:21 Acanthocytes (Spur) Not Reportable 03/01/21 19:21 Rouleaux Not Reportable 03/01/21 19:21 Hemoglobin C Crystals Not Reportable 03/01/21 19:21 Schistocytes Few 03/01/21 19:21 Malaria parasites Not Reportable 03/01/21 19:21 Henry Bodies Not Reportable 03/01/21 19:21 Hem Pathologist Commnt No 03/01/21 19:21 PT 15.6 Sec. (12.2-14.9) H 03/04/21 10:17 INR 1.18 (0.87-1.13) H 03/04/21 10:17 APTT 36.6 Sec. (24.2-36.6) 03/02/21 16:28 D-Dimer 475.91 ng/mlDDU (0-234) H 03/14/21 03:40 Heparin Anti-Xa Level 0.64 U.I./ml (0.3-0.7) 03/08/21 10:30 ABG pH 7.487 (7.320-7.450) H 03/10/21 12:33 POC ABG pCO2 40.4 mmHg (32.0-48.0) 03/10/21 12:33 POC ABG pO2 62.1 mmHg (83-108) L 03/10/21 12:33 POC ABG HCO3 29.9 03/10/21 12:33 ABG O2 Saturation 90.2 (0-100) 03/10/21 12:33 POC ABG Base Excess 6.0 03/10/21 12:33 ABG Hemoglobin 9.4 (12.0-17.5) L 03/10/21 12:33 ABG Oxyhemoglobin 89.7 (94-98) L 03/10/21 12:33 ABG Methemoglobin 0.3 (0.0-1.5) 03/10/21 12:33 ABG Sodium 138.7 mmol/L (136.0-145.0) 03/10/21 12:33 ABG Potassium 3.7 mmol/L (3.40-4.50) 03/10/21 12:33 ABG Chloride 104.0 mmol/L (98-107) 03/10/21 12:33 ABG Glucose 350 mg/dL (65-95) H 03/10/21 12:33 Carboxyhemoglobin 0.2 (0.5-1.5) L 03/10/21 12:33 FiO2 % 35.0 03/10/21 12:33 Sodium 141 mmol/L (137-145) 03/16/21 05:00 Potassium 3.6 mmol/L (3.6-5.0) 03/16/21 05:00 Chloride 100.8 mmol/L (98-107) 03/16/21 05:00 Carbon Dioxide 33 mmol/L (22-30) H 03/16/21 05:00 Anion Gap 11 mmol/L 03/16/21 05:00 BUN 16 mg/dL (9-20) 03/16/21 05:00 Creatinine 0.5 mg/dL (0.8-1.3) L 03/16/21 05:00 Estimated GFR > 60 ml/min 03/16/21 05:00 BUN/Creatinine Ratio 32 % 03/16/21 05:00 Glucose 195 mg/dL (75-100) H 03/16/21 05:00 POC Glucose 222 mg/dL (70-105) H 03/16/21 11:37 Lactic Acid 1.70 mmol/L (0.7-2.0) 03/04/21 10:17 Calcium 8.8 mg/dL (8.4-10.2) 03/16/21 05:00 Phosphorus 2.60 mg/dL (2.5-4.5) 03/16/21 05:00 Magnesium 1.80 mg/dL (1.7-2.3) 03/16/21 05:00 Ferritin 3103.0 ng/mL (30.0-300.0) H 03/14/21 03:40 Total Bilirubin 1.50 mg/dL (0.1-1.2) H 03/15/21 05:00 Direct Bilirubin 0.6 mg/dL (0-0.2) H 03/04/21 05:26 Indirect Bilirubin 0.2 mg/dL 03/04/21 05:26 AST 189 units/L (5-40) H 03/15/21 05:00 ALT 208 units/L (7-56) H 03/15/21 05:00 Alkaline Phosphatase 659 units/L (35-129) H 03/15/21 05:00 Ammonia 71.0 umol/L (25-60) H 03/01/21 19:21 Lactate Dehydrogenase 588 units/L (91-180) H 03/14/21 03:40 Troponin T 0.149 ng/mL (0.00-0.029) H* 03/12/21 04:44 C-Reactive Protein 4.00 mg/dL (0.00-1.30) H 03/14/21 03:40 Total Protein 5.1 g/dL (6.3-8.2) L 03/15/21 05:00 Albumin 2.1 g/dL (3.9-5) L 03/15/21 05:00 Albumin/Globulin Ratio 0.7 % 03/15/21 05:00 Triglycerides 400 mg/dL (2-149) H 03/01/21 19:21 Cholesterol 232 mg/dL (50-199) H 03/01/21 19:21 LDL Cholesterol Direct 130 mg/dL (50-130) 03/01/21 19: HDL Cholesterol 22 mg/dL (40-59) L 03/01/21 19:21 Cholesterol/HDL Ratio 10.54 % 03/01/21 19:21 Lipase 78 units/L (13-60) H 03/04/21 10:17 Procalcitonin 1.18 ng/mL (<0.15) 03/08/21 06:10 TSH 1.840 mlU/mL (0.270-4.200) 03/03/21 04:06 Arterial Blood Glucose 350 mg/dL (65-95) H 03/10/21 12:33 Arterial Blood Ionized Calcium 4.6 mg/dL (4.6-5.3) 03/10/21 12:33 Urine Color [place] (Yellow) 03/06/21 14:34 Urine Turbidity Cloudy (Clear) 03/06/21 14:34 Urine pH 5.0 (5.0-7.0) 03/06/21 14:34 Ur Specific [place] 1.014 (1.003-1.030) 03/06/21 14:34 Urine Protein 30 mg/dl mg/dL (Negative) 03/06/21 14:34 Urine Glucose (UA) Neg mg/dL (Negative) 03/06/21 14:34 Urine Ketones Neg mg/dL (Negative) 03/06/21 14:34 Urine Blood Sm (Negative) 03/06/21 14:34 Urine Nitrite Neg (Negative) 03/06/21 14:34 Urine Bilirubin Neg (Negative) 03/06/21 14:34 Urine Urobilinogen 4.0 mg/dL (<2.0) 03/06/21 14:34 Ur Leukocyte Esterase Neg (Negative) 03/06/21 14:34 Urine WBC (Auto) 103.0 /HPF (0.0-6.0) H 03/06/21 14:34 Urine RBC (Auto) 105.0 /HPF (0.0-6.0) 03/06/21 14:34 U Epithel Cells (Auto) 5.0 /HPF (0-13.0) 03/06/21 14:34 Urine Bacteria (Auto) 2+ /HPF (Negative) 03/06/21 14:34 Hyaline Casts 5 /LPF 03/06/21 14:34 Urine Mucus 1+ /HPF 03/06/21 14:34 Urine Yeast (Budding) Few /HPF 03/01/21 21:40 Urine Sperm 3+ /HPF ([employer]) 03/06/21 14:34 Nasal Screen MRSA (PCR) Positive (Negative) 03/02/21 05:00 Salicylates < 0.3 mg/dL (2.8-20.0) L 03/01/21 19:21 Urine Opiates Screen Positive 03/01/21 21:40 Urine Methadone Screen Negative 03/01/21 21:40 Acetaminophen 5.0 ug/mL (10.0-30.0) L 03/01/21 19:21 Ur Barbiturates Screen Negative 03/01/21 21:40 Ur Phencyclidine Scrn Negative 03/01/21 21:40 Ur Amphetamines Screen Negative 03/01/21 21:40 U Benzodiazepines Scrn Negative 03/01/21 21:40 Urine Cocaine Screen Negative 03/01/21 21:40 U Marijuana (THC) Screen Negative 03/01/21 21:40 Drugs of Abuse Note Disclamer 03/01/21 21:40 KARLA Screen Negative (Negative) 03/03/21 04:06 Coronavirus (PCR) Positive (Negative) A 03/05/21 Unknown Blood Type O POSITIVE 03/01/21 19:21 Antibody Screen Negative 03/01/21 19:21 Vilchis/IV: Voiding Method Incontinent Active Medications - Current Medications Current Medications: Generic Name Dose Route Start Last Admin Trade Name Freq PRN Reason Stop Dose Admin Acetaminophen 650 mg 03/06/21 10:00 03/06/21 12:33 Acetaminophen 325 Mg/10.15 Ml Oral Liqd Unit Dose FEEDTUBE 650 mg Q6H PRN Administration Pain MILD(1-3)/Fever >100.5/VALDES Albuterol 2.5 mg 03/02/21 15:45 03/11/21 23:05 Albuterol 2.5 Mg/3 Ml Nebu IH 2.5 mg Q4H PRN Administration Shortness Of Breath Lipase/Protease/Amylase 1 each 03/03/21 10:53 Lipase 10,500/Protease 25,000/Amylase 43,750 (Units) Dr Gutierrez FEEDTUBE PRN PRN For Clogged Feeding Tube Ascorbic Acid 500 mg 03/06/21 22:00 03/16/21 09:08 Ascorbic Acid 500 Mg Tab PO 500 mg BID KYLE Administration Aspirin 81 mg 03/04/21 10:00 03/16/21 09:08 Aspirin 81 Mg Tab Chew PO 81 mg QDAY KYLE Administration Cholecalciferol 1,000 unit 03/07/21 10:00 03/16/21 09:08 Cholecalciferol (Vit D3) 1000 Unit (25 Mcg) Tab PO 1,000 unit QDAY KYLE Administration Dextrose 50 ml 03/02/21 11:38 Dextrose 50% In Water (25gm) 50 Ml Syringe IV Q30MIN PRN Hypoglycemia Protocol Enoxaparin Sodium 130 mg 03/09/21 11:00 03/16/21 09:09 Enoxaparin 150 Mg/1 Ml Inj SUB-Q 130 mg Q12HR KYLE Administration Protocol Famotidine 20 mg 03/04/21 10:00 03/16/21 09:08 Famotidine 20 Mg Tab PO 20 mg BID KYLE Administration Guaifenesin 600 mg 03/11/21 22:00 03/16/21 09:09 Guaifenesin Er 600 Mg Tab PO 600 mg BID KYLE Administration Hydralazine HCl 10 mg 03/09/21 08:21 03/11/21 22:03 Hydralazine 20 Mg/1 Ml Inj IV 10 mg Q4H PRN Administration Hypertension Hydralazine HCl 25 mg 03/11/21 14:00 03/16/21 08:10 Hydralazine 25 Mg Tab PO 25 mg TID [facility] Administration Hydrophilic Ointment 1 applic 03/02/21 15:42 Lip Therapy Vaseline TP Q2H PRN Dry Lips Sodium Chloride 1,000 mls @ 1 mls/hr 03/06/21 18:11 Nacl 0.9% 500 Ml IV DIRECT PRN ARTERIAL LINE FLUSH Insulin Glargine 30 units 03/16/21 22:00 Insulin Glargine 100 Units/Ml SUB-Q QHS [facility] Insulin Human Regular 0 units 03/10/21 18:00 03/16/21 12:40 Insulin Regular, Human 100 Units/1 Ml SUB-Q 4 units Q6HR [facility] Administration Protocol Labetalol HCl 100 mg 03/11/21 14:00 03/16/21 08:09 Labetalol 100 Mg Tab PO 100 mg TID KYLE Administration Magnesium Hydroxide 30 ml 03/02/21 00:18 Magnesium Hydroxide (Mom) Oral Liqd Udc PO Q4H PRN Constipation Metoprolol Tartrate 5 mg 03/12/21 14:15 03/12/21 14:40 Metoprolol Tartrate 5 Mg/5 Ml Inj IV 5 mg Q6HR PRN Administration Tachyarrhythmias Multi-Ingred Cream/Lotion/Oil/Oint 1 applic 03/02/21 15:42 Mineral Oil/Petrolatum, White Ophth Oint 3.5 Gm OU Q4HR PRN Dry Eye(s) Multivitamins/Minerals 1 each 03/03/21 22:00 03/16/21 09:09 Calcium Carb/Vit D3/Minerals 600 Mg/800 Units Tab PO 1 each BID KYLE Administration Senna/Docusate Sodium 1 tab 03/02/21 22:00 03/16/21 09:08 Sennosides/Docusate Sodium 8.6/50 Mg Tab FEEDTUBE 1 tab BID KYLE Administration Simple Syrup 15 ml 03/03/21 10:53 Simple Syrup 15 Ml FEEDTUBE PRN PRN Hypoglycemia Simple Syrup 30 ml 03/03/21 10:53 Simple Syrup 15 Ml FEEDTUBE PRN PRN Hypoglycemia Sodium Bicarbonate 325 mg 03/03/21 10:53 Sodium Bicarbonate 325 Mg Tab FEEDTUBE PRN PRN For Clogged Feeding Tube Sodium Chloride 10 ml 03/02/21 10:00 03/16/21 09:09 Sodium Chloride 0.9% 10 Ml Flush Syringe IV 10 ml BID KYLE Administration Sodium Chloride 10 ml 03/02/21 00:18 Sodium Chloride 0.9% 10 Ml Flush Syringe IV PRN PRN LINE FLUSH Zinc Sulfate 220 mg 03/06/21 16:00 03/16/21 09:08 Zinc Sulfate 220 Mg Cap PO 220 mg BID KYLE Administration Ziprasidone 20 mg 03/14/21 11:18 Ziprasidone Mesylate 20 Mg Vial IM Q6H PRN Agitation Zolpidem Tartrate 5 mg 03/13/21 17:55 03/13/21 21:16 Zolpidem 5 Mg Tab PO 5 mg QHS PRN Administration Sleep Nutrition/Malnutrition Assess - Dietary Evaluation Nutrition/Malnutrition Findings: Nutrition Notes Start: 03/02/21 10:10 Freq: Status: Active Protocol: Document 03/15/21 13:07 (Rec: 03/15/21 13:29 [id number]) Nutrition Notes Initial or Follow up Reassessment Current Diagnosis Acute Kidney Injury,COPD, Diabetes,Sepsis,Hypertension, Heart Failure,Respiratory Failure Other Pertinent Diagnosis pneu, AMS, COVID(+) Current Diet Cardiac Labs/Tests POC [phone] Pertinent Medications reviewed Height 5 ft 10 in Weight 131 kg [place] Body Weight (kg) 75.45 BMI 41.4 Subjective/Other Information Unable to speak with pt. RN reports pt ate one apple sauce and he states he isn't hungry . He did not eat breakfast or lunch. Burn Absent Trauma Absent Current % PO Negligible Minimum of two criteria No Fluid Accumulation Mild (non-severe) #1 Nutrition Diagnosis Inadequate oral intake As Evidenced by Signs and Symptoms pt eating 0% of meals Diagnosis Progress(for reassessment Continues documentation) Is patient on ventilator? No Is Patient Ambulatory and/or Out of Bed No REE-([facility]-confined to bed) 2614.728 Kcal/Kg value to use for calculation 16 Approximate Energy Requirements Using 2096 kcal/Kg Calculation Used for Recommendations Kcal/kg Additional Notes Pro needs up to 2.5g/klg IBW: up to 189g/day Fluid needs 1ml/kcal Nutrition Intervention Change Diet Order: continue Add Supplement/Snack (indicate name/kcal Glucerna daily /protein ) Provides kCal: 220 Provides Protein (gm) 10 Goal #1 PO tolerance Goal #2 PO intake to meet at least 75% energy and pro needs Follow-Up By: 03/19/21 Additional Comments F/u: intakes and ONS tolerance
[2021-03-17] MEDS: INSULIN REGULAR, HUMAN 100 UNITS/1 ML SUB-Q SCH ×5 (00:36→23:13)
[2021-03-17] MEDS: INSULIN GLARGINE 100 UNITS/ML SUB-Q SCH ×2 (00:36→23:18)
[2021-03-17] MEDS: ASPIRIN 81 MG TAB CHEW PO SCH (09:46)
[2021-03-17] MEDS: CALCIUM CARB/VIT D3/MINERALS 600 MG/800 UNITS TAB PO SCH ×2 (09:46→23:18)
[2021-03-17] MEDS: FAMOTIDINE 20 MG TAB PO SCH ×2 (09:47→23:18)
[2021-03-17] MEDS: guaiFENesin ER 600 MG TAB PO SCH ×2 (09:47→23:18)
[2021-03-17] MEDS: SENNOSIDES/DOCUSATE SODIUM 8.6/50 MG TAB FEEDTUBE SCH ×2 (09:47→23:18)
[2021-03-17] MEDS: hydrALAZINE 25 MG TAB PO SCH ×3 (09:47→23:18)
[2021-03-17] MEDS: CHOLECALCIFEROL (VIT D3) 1000 UNIT (25 mcg) TAB PO SCH (09:47)
[2021-03-17] MEDS: ASCORBIC ACID 500 MG TAB PO SCH ×2 (09:48→23:18)
[2021-03-17] MEDS ORDERED: LINACLOTIDE 145 MCG PO SCH (10:00)
--- NOTE | 2021-03-17 11:02 | Progress Note ---
Assessment and Plan Assessment and plan: This is a a 51 year old male admitted for for severe sepsis, respiratory failure, pneumonia and ALPHONSO. PMH: COPD, CHF, DM, DVT/PE, HTN, KAM, obesity, asthma PSx: none reported home meds: albuterol sulfate, advair, HCTZ, atrovent, glucophage, Klor-Con, midodrine, metoprolol, lasix, lantus, coumadin (from audit and home meds reconciliation) Social: unknown A/P Neuro: Metabolic encephalopathy -Resolved. -Now extbated Cardio: SR/ST: Acute on Chronic HFpEF (per cards), NSTEMI, h/o HTN, HLD, Prolonged QTc, SVT -Cardiology consulted, appreciate recommendations -midodrine d/c r/t HTN -BP monitoring per protocol -Labetalol PO -Per cardiology: 1. gentle IV diuresis when able 2. Echo 12/13/2020 - EF 55-60%, otherwise technically difficult study. Echo 05/2016 - LV mildly dilated, EF 55-60%, grade II diastolic dysfxn, RV mildly enlarged, normal RV sys fxn, LA mildly dilated, RA mildly dilated, mild-mod AR, mild DC, mild aortic root dilatation. Resp: Acute on chronic hypoxic respiratory failure, Bilateral PNA, hx COPD, KAM, asthma, ?PE -[facility] consulted, appreciate recommendations -MV, wean as tolerated -Intubated 03/01, tube exchange 03/09 OETT 8/0 @ 25 lip -nOW EXTUBATED 03/10 -Continuos SPO2 monitoring -abx with levaquin (03/02-03/07)-DC 03/05 r/t prolonged QTc -03/01 CT chest shows several pulmonary nodules within Right lung measuring 6-8 mm, increased interstitial prominence -? f/u outpt with PCP/pulmanology -03/10 CXR reviewed GI: Transaminitis, TF -GI consulted, appreciate recommendations -Trend LFTs -RUQ US shows no evidence of cholelithiasis, cholecytitis or choledocholithisis -CT abd/pelvis showed fatty infiltration of liver -Ntr consult for TF -PPI -BR [place] -last BM 03/06 -24 hr net (-) 225 : ALPHONSO (stable/resolved) -Nephrology consulted, appreciate recommendations -Pt was on HD at recent hospitalization at OSH -Renally dose mediations -Avoid nephrotoxic medications -Strict I&Os -Renal US shows no significant abnormality -Daily weights -Replete electrolytes -Trend BMP -s/p lasix x 2, prn hydral -Trial lasix again today Heme: DVT-R posterior tibial vein, h/o LLE DVT (December 2019)/ PE (failed Xa inhibitors per cards; on home coumadin) -evidenced on BLE Doppler US -Heparin gtt d/c to lovenox subq (03/09) -SCDs while in bed -Per cards: Eventually plan to transition to Coumadin ID: Severe Sepsis, B PNA, COVID 19 infection -s/p abx therapy (azithromycin 03/01-03/02, aztreonam 03/02, cefepime 03/01-03/02, levaquin 03/02-03/05, flagyl 03/01-03/02, vancomycin 03/01-03/02) -VAP bundle -MRSA (+) nares -COVID 19 PCR (+) -Decadron for 10 days (03/06-03/15) -Remdesivir (03/06-03/10) -Contact/Droplet precautions -03/01 BCx2 with NGTD, UC with NGTD, sputum culture normal sole -03/06 BC NGTD -Prone if needed -Vit C/D/Zinc Endo: DM -SSI, lantus (titrate as needed) -Accuchecks q6 -Avoid hypoglycemia FEN: Hypokalemia, Hypomagenesmia- Replace lines: condom cath, PIV, RADHA Disposition: ICU Full code The high probability of a clinically significant, sudden or life threatening deterioration of the [multi] system(s) required my full and direct attention, intervention and personal management. The aggregate critical care time was [40] minutes. This time is in addition to time spent performing reported procedures but includes the following: [x] Data Review and interpretation [x] Patient assessment and monitoring of vital signs [x] Documentation [x] Medication orders and management History Interval history: This is a 51-year-old -British male with COPD with chronic respiratory failure, CHFpEF, diabetes mellitus, DVT/PE on coumadin and hypertension who p resented to [facility] via EMS for AMS and hypoxia. On arrival of EMS oxygen saturation was about 88% on room air, blood pressure was said to be about 88/50 mmHg. Work-up in the emergency room reveals leukocytosis of 12.7, hemoglobin of 9.1 and hematocrit of 27.7, sodium of 132, lactic acid of 2.90, elevated liver enzymes and elevated troponin at 0.493. A CT of the chest showed findings concerning for atelectasis and or infiltrate, CT of the head was unremarkable. Patient was in severe respiratory distress upon arrival in the emergency room and subsequently intubated. Patient was admitted to the hospitalist service with consults to cardiology, CCM, GI, and neprohology for severe sepsis, respiratory failure, pneumonia and ALPHONSO. Of note patient was admitted to [facility] from 12/12-01/14 and was on HD during that admit. 03/03/21: Patient remains intubated, continue on heparin drip, monitor H&H and BMP. Continue empiric antibiotics, ID following. Follow ammonia level and LFT. According to cardiology patient indeed had preserved EF during his recent admission to [place]. Plan to repeat 2D echo. Critical care following, wean off from vent as tolerated. 03/04: RN reported blood y secretions in OETT and clots, heparin gtt stopped and B LE US obtained which shows DVT, abx deescalated, heparin gtt restarted. 03/05: RN reported vomiting x1, promithazine x1 given, Qtc at 599 on EKG. AM labs pending. tmax 102.2, reculture with next spike, COVID 19 PCR. abx stopped re prolonged qtc and received CAP coverage. 03/06: Reported high TF residual, COVID PCR pending. Cr better today. tmax 100.7 03/07: radha placed yesterday, started on remdesivir re positive covid. ID consulted yesterday. SHERYL overnight. 03/08: SHERYL reported overnight. Patient is now hypertensive and midodrine has been held. Will now place on low dose antihtn and prn hydral. 03/09: Patient reportedly through tube and OETT was exchanged, patient was given paralytic for exchange. No acute events reported overnight. Patient noted to be hypertensive and we will trial Lasix again today. 03/10: PSV trial today. fentayl was stopped. BP maintaining. SHERYL overnight. 03/11: Patient was extuabted, awaiting Speech therapy, discussed with nursing staff at bedside, considering Hypertensive urgency, will do a bedside swallow eval and give oral meds if passed. Continue aspiration precautions. The patient has hx of Asthma, continue neb treatment. 03/12: Patient remains in ICU care secondary to SVT and unstable hemodynamics. Cardiology reevaluated patient was given adenosine and started on amnio drip. Still awaiting speech therapy evaluation although considering her current condition we will keep the patient n.p.o. Case discussed with document management consultant and flight attendant ramp. Monitor electrolytes and correct as needed. 03/13: Patient this morning remains in normal sinus rhythm following the adenosine and amnio drip which is still going the latter I mean. I will start the patient on Lasix for 3 days and monitor her renal function. Patient is already on high dose of dexamethasone considering his history of bronchospasm disease. We will repeat a pulmonary evaluation we will correct electrolytes especially with the Lasix. CCT 35 pLAN DISCUSSED WITH THE PATIENT AND NURSE 03/14: Patient unfortunately is declining continues on high flow -70% intermittent altered mental status refusing all treatment plan. Psych saw the patient recommended Geodon as needed. Will transition some medications to IV. Continue encouraging patient to use BiPAP. Continue nebulizer treatment and steroid therapy. Pulmonary and cardiology input also appreciated. 03/15: Patient seen and examined, continue to wean oxygen flow as tolerated, Electrolytes replacement protocol inplace, LFT still elevated but trending down some. Again counselling provided to the patient about compliance. Adjust insulin. 03/16: Patient down to 50% FiO2 was saturating 92%. Will transfer to [facility]. Clinically he is showing some improvement. Continue restraints for supportive care continue to monitor for intermittent delirium. 03/17: Patient still with intermittent delirium sometimes refusing medication. Restraints has been renewed for safety as he did take off his oxygen yesterday and desatted to the 70s. His saturation is back to 9092% with FiO2 of 50% of the high flow. Continue supportive care pulmonary input and ID input noted. The high probability of a clinically significant, sudden or life threatening deterioration of the [pulmonary, neuro, cardiac] system(s) required my full and direct attention, intervention and personal management. The aggregate critical care time was [35] minutes. This time is in addition to time spent performing reported procedures but includes the following: [x] Data Review and interpretation [x] Patient assessment and monitoring of vital signs [x] Documentation [x] Medication orders and management History Interval history: Patient seen and examined, seen and examined this morning. still with intermittent delirium desated when oxygen was off but imprved back on 50% fio2. Hospitalist Physical - Physical exam Narrative exam: General appearance: Present: no acute distress, well-nourished, obese, generalized anasarca although improving - EENT Eyes: Present: PERRL, EOM intact ENT: clear oral mucosa - Neck Neck: Present: normal ROM - Respiratory Respiratory effort: normal Respiratory: bilateral: diminished - Cardiovascular Rhythm: regular Heart Sounds: Present: S1 & S2. Absent: systolic murmur, diastolic murmur - Extremities Extremities: no ischemia, pulses intact, pulses symmetrical, NOTED pitting edema, normal temperature, normal color - Abdominal General gastrointestinal: soft, non-tender, non-distended, normal bowel sounds - Integumentary Integumentary: Present: clear, warm, dry- see full documentation of skin exam in nursing assessment - Psychiatric Psychiatric: cooperative some times. - Neurologic Neurologic: moves all extremities - Allied Health Allied health notes reviewed: nursing, RT - Constitutional Vitals: Temp Pulse Resp BP Pulse Ox 99.0 F 107 H 20 126/79 87 03/17/21 09:45 03/17/21 09:45 03/17/21 09:45 03/17/21 09:45 03/17/21 09:45 General appearance: Present: no acute distress, well-nourished, obese, other (sedated) HEART Score - HEART Score Troponin: Troponin T 0.149 ng/mL (0.00-0.029) H* 03/12/21 04:44 Results - Labs CBC & Chem 7: 03/15/21 05:00 03/16/21 05:00 Labs: Laboratory Last Values WBC 8.3 K/mm3 (4.5-11.0) 03/15/21 05:00 RBC 2.40 M/mm3 (3.65-5.03) L 03/15/21 05:00 Hgb 7.8 gm/dl (11.8-15.2) L 03/15/21 05:00 Hct 23.6 % (35.5-45.6) L 03/15/21 05:00 MCV 99 fl (84-94) H 03/15/21 05:00 MCH 33 pg (28-32) H 03/15/21 05:00 MCHC 33 % (32-34) 03/15/21 05:00 RDW 18.3 % (13.2-15.2) H 03/15/21 05:00 Plt Count 265 K/mm3 (140-440) 03/15/21 05:00 Lymph % (Auto) 22.4 % (13.4-35.0) 03/06/21 05:20 Pepin % (Auto) 4.5 % (0.0-7.3) 03/06/21 05:20 Eos % (Auto) 0.2 % (0.0-4.3) 03/06/21 05:20 Baso % (Auto) 0.3 % (0.0-1.8) 03/06/21 05:20 Lymph # (Auto) 3.4 K/mm3 (1.2-5.4) 03/06/21 05:20 Pepin # (Auto) 0.7 K/mm3 (0.0-0.8) 03/06/21 05:20 Eos # (Auto) 0.0 K/mm3 (0.0-0.4) 03/06/21 05:20 Baso # (Auto) 0.1 K/mm3 (0.0-0.1) 03/06/21 05:20 Add Manual Diff Complete 03/01/21 19:21 Total Counted 100 03/01/21 19:21 Seg Neutrophils % 72.6 % (40.0-70.0) H 03/06/21 05:20 Seg Neuts % (Manual) 49.0 % (40.0-70.0) 03/01/21 19:21 Lymphocytes % (Manual) 32.0 % (13.4-35.0) 03/01/21 19:21 Monocytes % (Manual) 17.0 % (0.0-7.3) H 03/01/21 19:21 Eosinophils % (Manual) 1.0 % (0.0-4.3) 03/01/21 19:21 Basophils % (Manual) 1.0 % (0.0-1.8) 03/01/21 19:21 Nucleated RBC % Not Reportable 03/01/21 19:21 Seg Neutrophils # 11.1 K/mm3 (1.8-7.7) H 03/06/21 05:20 Seg Neutrophils # Man 6.2 K/mm3 (1.8-7.7) 03/01/21 19:21 Band Neutrophils # 0.0 K/mm3 03/01/21 19:21 Lymphocytes # (Manual) 4.1 K/mm3 (1.2-5.4) 03/01/21 19:21 Abs React Lymphs (Man) 0.0 K/mm3 03/01/21 19:21 Monocytes # (Manual) 2.2 K/mm3 (0.0-0.8) H 03/01/21 19:21 Eosinophils # (Manual) 0.1 K/mm3 (0.0-0.4) 03/01/21 19:21 Basophils # (Manual) 0.1 K/mm3 (0.0-0.1) 03/01/21 19:21 Metamyelocytes # 0.0 K/mm3 03/01/21 19:21 Myelocytes # 0.0 K/mm3 03/01/21 19:21 Promyelocytes # 0.0 K/mm3 03/01/21 19:21 Blast Cells # 0.0 K/mm3 03/01/21 19:21 WBC Morphology Not Reportable 03/01/21 19:21 Hypersegmented Neuts Not Reportable 03/01/21 19:21 Hyposegmented Neuts Not Reportable 03/01/21 19:21 Hypogranular Neuts Not Reportable 03/01/21 19:21 Smudge Cells Not Reportable 03/01/21 19:21 Toxic Granulation Not Reportable 03/01/21 19:21 Toxic Vacuolation Not Reportable 03/01/21 19:21 Dohle Bodies Not Reportable 03/01/21 19:21 Pelger-Huet Anomaly Not Reportable 03/01/21 19:21 Katherine Rods Not Reportable 03/01/21 19:21 Platelet Estimate Not Reportable 03/01/21 19:21 Clumped Platelets Not Reportable 03/01/21 19:21 Plt Clumps, EDTA Not Reportable 03/01/21 19:21 Large Platelets Not Reportable 03/01/21 19:21 Giant Platelets Not Reportable 03/01/21 19:21 Platelet Satelliting Not Reportable 03/01/21 19:21 Plt Morphology Comment Not Reportable 03/01/21 19:21 RBC Morphology Not Reportable 03/01/21 19:21 Dimorphic RBCs Not Reportable 03/01/21 19:21 Polychromasia Not Reportable 03/01/21 19:21 Hypochromasia Not Reportable 03/01/21 19:21 Poikilocytosis Not Reportable 03/01/21 19:21 Anisocytosis Rare 03/01/21 19:21 Microcytosis Not Reportable 03/01/21 19:21 Macrocytosis Not Reportable 03/01/21 19:21 Spherocytes Not Reportable 03/01/21 19:21 Pappenheimer Bodies Not Reportable 03/01/21 19:21 Sickle Cells Not Reportable 03/01/21 19:21 Target Cells Not Reportable 03/01/21 19:21 Tear Drop Cells Not Reportable 03/01/21 19:21 Ovalocytes Not Reportable 03/01/21 19:21 Helmet Cells Not Reportable 03/01/21 19:21 Quinones-Shaw Bodies Not Reportable 03/01/21 19:21 Granville Rings Not Reportable 03/01/21 19:21 Dusty Cells Not Reportable 03/01/21 19:21 Bite Cells Not Reportable 03/01/21 19:21 Crenated Cell Not Reportable 03/01/21 19:21 Elliptocytes Not Reportable 03/01/21 19:21 Acanthocytes (Spur) Not Reportable 03/01/21 19:21 Rouleaux Not Reportable 03/01/21 19:21 Hemoglobin C Crystals Not Reportable 03/01/21 19:21 Schistocytes Few 03/01/21 19:21 Malaria parasites Not Reportable 03/01/21 19:21 Henry Bodies Not Reportable 03/01/21 19:21 Hem Pathologist Commnt No 03/01/21 19:21 PT 15.6 Sec. (12.2-14.9) H 03/04/21 10:17 INR 1.18 (0.87-1.13) H 03/04/21 10:17 APTT 36.6 Sec. (24.2-36.6) 03/02/21 16:28 D-Dimer 475.91 ng/mlDDU (0-234) H 03/14/21 03:40 Heparin Anti-Xa Level 0.64 U.I./ml (0.3-0.7) 03/08/21 10:30 ABG pH 7.487 (7.320-7.450) H 03/10/21 12:33 POC ABG pCO2 40.4 mmHg (32.0-48.0) 03/10/21 12:33 POC ABG pO2 62.1 mmHg (83-108) L 03/10/21 12:33 POC ABG HCO3 29.9 03/10/21 12:33 ABG O2 Saturation 90.2 (0-100) 03/10/21 12:33 POC ABG Base Excess 6.0 03/10/21 12:33 ABG Hemoglobin 9.4 (12.0-17.5) L 03/10/21 12:33 ABG Oxyhemoglobin 89.7 (94-98) L 03/10/21 12:33 ABG Methemoglobin 0.3 (0.0-1.5) 03/10/21 12:33 ABG Sodium 138.7 mmol/L (136.0-145.0) 03/10/21 12:33 ABG Potassium 3.7 mmol/L (3.40-4.50) 03/10/21 12:33 ABG Chloride 104.0 mmol/L (98-107) 03/10/21 12:33 ABG Glucose 350 mg/dL (65-95) H 03/10/21 12:33 Carboxyhemoglobin 0.2 (0.5-1.5) L 03/10/21 12:33 FiO2 % 35.0 03/10/21 12:33 Sodium 141 mmol/L (137-145) 03/16/21 05:00 Potassium 3.6 mmol/L (3.6-5.0) 03/16/21 05:00 Chloride 100.8 mmol/L (98-107) 03/16/21 05:00 Carbon Dioxide 33 mmol/L (22-30) H 03/16/21 05:00 Anion Gap 11 mmol/L 03/16/21 05:00 BUN 16 mg/dL (9-20) 03/16/21 05:00 Creatinine 0.5 mg/dL (0.8-1.3) L 03/16/21 05:00 Estimated GFR > 60 ml/min 03/16/21 05:00 BUN/Creatinine Ratio 32 % 03/16/21 05:00 Glucose 195 mg/dL (75-100) H 03/16/21 05:00 POC Glucose 113 mg/dL (70-105) H 03/17/21 04:50 Lactic Acid 1.70 mmol/L (0.7-2.0) 03/04/21 10:17 Calcium 8.8 mg/dL (8.4-10.2) 03/16/21 05:00 Phosphorus 2.60 mg/dL (2.5-4.5) 03/16/21 05:00 Magnesium 1.80 mg/dL (1.7-2.3) 03/16/21 05:00 Ferritin 3103.0 ng/mL (30.0-300.0) H 03/14/21 03:40 Total Bilirubin 1.50 mg/dL (0.1-1.2) H 03/15/21 05:00 Direct Bilirubin 0.6 mg/dL (0-0.2) H 03/04/21 05:26 Indirect Bilirubin 0.2 mg/dL 03/04/21 05:26 AST 189 units/L (5-40) H 03/15/21 05:00 ALT 208 units/L (7-56) H 03/15/21 05:00 Alkaline Phosphatase 659 units/L (35-129) H 03/15/21 05:00 Ammonia 71.0 umol/L (25-60) H 03/01/21 19:21 Lactate Dehydrogenase 588 units/L (91-180) H 03/14/21 03:40 Troponin T 0.149 ng/mL (0.00-0.029) H* 03/12/21 04:44 C-Reactive Protein 4.00 mg/dL (0.00-1.30) H 03/14/21 03:40 Total Protein 5.1 g/dL (6.3-8.2) L 03/15/21 05:00 Albumin 2.1 g/dL (3.9-5) L 03/15/21 05:00 Albumin/Globulin Ratio 0.7 % 03/15/21 05:00 Triglycerides 400 mg/dL (2-149) H 03/01/21 19:21 Cholesterol 232 mg/dL (50-199) H 03/01/21 19:21 LDL Cholesterol Direct 130 mg/dL (50-130) 03/01/21 19:21 HDL Cholesterol 22 mg/dL (40-59) L 03/01/21 19:21 Cholesterol/HDL Ratio 10.54 % 03/01/21 19:21 Lipase 78 units/L (13-60) H 03/04/21 10:17 Procalcitonin 1.18 ng/mL (<0.15) 03/08/21 06:10 TSH 1.840 mlU/mL (0.270-4.200) 03/03/21 04:06 Arterial Blood Glucose 350 mg/dL (65-95) H 03/10/21 12:33 Arterial Blood Ionized Calcium 4.6 mg/dL (4.6-5.3) 03/10/21 12:33 Urine Color Ariadne (Yellow) 03/06/21 14:34 Urine Turbidity Cloudy (Clear) 03/06/21 14:34 Urine pH 5.0 (5.0-7.0) 03/06/21 14:34 Ur Specific [place] 1.014 (1.003-1.030) 03/06/21 14:34 Urine Protein 30 mg/dl mg/dL (Negative) 03/06/21 14:34 Urine Glucose (UA) Neg mg/dL (Negative) 03/06/21 14:34 Urine Ketones Neg mg/dL (Negative) 03/06/21 14:34 Urine Blood Sm (Negative) 03/06/21 14:34 Urine Nitrite Neg (Negative) 03/06/21 14:34 Urine Bilirubin Neg (Negative) 03/06/21 14:34 Urine Urobilinogen 4.0 mg/dL (<2.0) 03/06/21 14:34 Ur Leukocyte Esterase Neg (Negative) 03/06/21 14:34 Urine WBC (Auto) 103.0 /HPF (0.0-6.0) H 03/06/21 14:34 Urine RBC (Auto) 105.0 /HPF (0.0-6.0) 03/06/21 14:34 U Epithel Cells (Auto) 5.0 /HPF (0-13.0) 03/06/21 14:34 Urine Bacteria (Auto) 2+ /HPF (Negative) 03/06/21 14:34 Hyaline Casts 5 /LPF 03/06/21 14:34 Urine Mucus 1+ /HPF 03/06/21 14:34 Urine Yeast (Budding) Few /HPF 03/01/21 21:40 Urine Sperm 3+ /HPF (OPTICIAN) 03/06/21 14:34 Nasal Screen MRSA (PCR) Positive (Negative) 03/02/21 05:00 Salicylates < 0.3 mg/dL (2.8-20.0) L 03/01/21 19:21 Urine Opiates Screen Positive 03/01/21 21:40 Urine Methadone Screen Negative 03/01/21 21:40 Acetaminophen 5.0 ug/mL (10.0-30.0) L 03/01/21 19:21 Ur Barbiturates Screen Negative 03/01/21 21:40 Ur Phencyclidine Scrn Negative 03/01/21 21:40 Ur Amphetamines Screen Negative 03/01/21 21:40 U Benzodiazepines Scrn Negative 03/01/21 21:40 Urine Cocaine Screen Negative 03/01/21 21:40 U Marijuana (THC) Screen Negative 03/01/21 21:40 Drugs of Abuse Note Disclamer 03/01/21 21:40 KARLA Screen Negative (Negative) 03/03/21 04:06 Coronavirus (PCR) Positive (Negative) A 03/05/21 Unknown Blood Type O POSITIVE 03/01/21 19:21 Antibody Screen Negative 03/01/21 19:21 Vilchis/IV: Voiding Method Incontinent Active Medications - Current Medications Current Medications: Generic Name Dose Route Start Last Admin Trade Name Freq PRN Reason Stop Dose Admin Acetaminophen 650 mg 03/06/21 10:00 03/06/21 12:33 Acetaminophen 325 Mg/10.15 Ml Oral Liqd Unit Dose FEEDTUBE 650 mg Q6H PRN Administration Pain MILD(1-3)/Fever >100.5/VALDES Albuterol 2.5 mg 03/02/21 15:45 03/11/21 23:05 Albuterol 2.5 Mg/3 Ml Nebu IH 2.5 mg Q4H PRN Administration Shortness Of Breath Lipase/Protease/Amylase 1 each 03/03/21 10:53 Lipase 10,500/Protease 25,000/Amylase 43,750 (Units) Dr Gutierrez FEEDTUBE PRN PRN For Clogged Feeding Tube Ascorbic Acid 500 mg 03/06/21 22:00 03/17/21 09:48 Ascorbic Acid 500 Mg Tab PO 500 mg BID KYLE Administration Aspirin 81 mg 03/04/21 10:00 03/17/21 09:46 Aspirin 81 Mg Tab Chew PO 81 mg QDAY KYLE Administration Cholecalciferol 5,000 unit 03/17/21 11:00 Cholecalciferol (Vit D3) 5,000 Unit Tab PO QDAY KYLE Clonazepam 0.5 mg 03/16/21 12:43 Clonazepam 0.5 Mg Tab PO BID PRN Anxiety Dextrose 50 ml 03/02/21 11:38 Dextrose 50% In Water (25gm) 50 Ml Syringe IV Q30MIN PRN Hypoglycemia Protocol Enoxaparin Sodium 130 mg 03/09/21 11:00 03/16/21 23:48 Enoxaparin 150 Mg/1 Ml Inj SUB-Q Not Given Q12HR [facility] Protocol Famotidine 20 mg 03/04/21 10:00 03/17/21 09:47 Famotidine 20 Mg Tab PO 20 mg BID KYLE Administration Furosemide 80 mg 03/17/21 11:00 Furosemide 40 Mg Tab PO QDAY KYLE Guaifenesin 600 mg 03/11/21 22:00 03/17/21 09:47 Guaifenesin Er 600 Mg Tab PO 600 mg BID KYLE Administration Hydralazine HCl 10 mg 03/09/21 08:21 03/11/21 22:03 Hydralazine 20 Mg/1 Ml Inj IV 10 mg Q4H PRN Administration Hypertension Hydralazine HCl 25 mg 03/11/21 14:00 03/17/21 09:47 Hydralazine 25 Mg Tab PO 25 mg TID [facility] Administration Hydrophilic Ointment 1 applic 03/02/21 15:42 Lip Therapy Vaseline TP Q2H PRN Dry Lips Sodium Chloride 1,000 mls @ 1 mls/hr 03/06/21 18:11 Nacl 0.9% 500 Ml IV DIRECT PRN ARTERIAL LINE FLUSH Insulin Glargine 30 units 03/16/21 22:00 03/17/21 00:36 Insulin Glargine 100 Units/Ml SUB-Q Not Given QHS [facility] Insulin Human Regular 0 units 03/10/21 18:00 03/17/21 05:08 Insulin Regular, Human 100 Units/1 Ml SUB-Q Not Given Q6HR [facility] Protocol Labetalol HCl 100 mg 03/11/21 14:00 03/17/21 09:46 Labetalol 100 Mg Tab PO 100 mg TID KYLE Administration Magnesium Hydroxide 30 ml 03/02/21 00:18 Magnesium Hydroxide (Mom) Oral Liqd Udc PO Q4H PRN Constipation Metoprolol Tartrate 5 mg 03/12/21 14:15 03/12/21 14:40 Metoprolol Tartrate 5 Mg/5 Ml Inj IV 5 mg Q6HR PRN Administration Tachyarrhythmias Miscellaneous Medication 145 mcg 03/17/21 10:00 Linaclotide [Linzess] PO QDAY [facility] Multi-Ingred Cream/Lotion/Oil/Oint 1 applic 03/02/21 15:42 Mineral Oil/Petrolatum, White Ophth Oint 3.5 Gm OU Q4HR PRN Dry Eye(s) Multivitamins/Minerals 1 each 03/03/21 22:00 03/17/21 09:46 Calcium Carb/Vit D3/Minerals 600 Mg/800 Units Tab PO 1 each BID KYLE Administration Pregabalin 50 mg 03/17/21 14:00 Pregabalin 50 Mg Cap PO TID KYLE Senna/Docusate Sodium 1 tab 03/02/21 22:00 03/17/21 09:47 Sennosides/Docusate Sodium 8.6/50 Mg Tab FEEDTUBE 1 tab BID KYLE Administration Simple Syrup 15 ml 03/03/21 10:53 Simple Syrup 15 Ml FEEDTUBE PRN PRN Hypoglycemia Simple Syrup 30 ml 03/03/21 10:53 Simple Syrup 15 Ml FEEDTUBE PRN PRN Hypoglycemia Sodium Bicarbonate 325 mg 03/03/21 10:53 Sodium Bicarbonate 325 Mg Tab FEEDTUBE PRN PRN For Clogged Feeding Tube Sodium Chloride 10 ml 03/02/21 10:00 03/17/21 09:48 Sodium Chloride 0.9% 10 Ml Flush Syringe IV 10 ml BID KYLE Administration Sodium Chloride 10 ml 03/02/21 00:18 Sodium Chloride 0.9% 10 Ml Flush Syringe IV PRN PRN LINE FLUSH Zinc Sulfate 220 mg 03/06/21 16:00 03/16/21 23:49 Zinc Sulfate 220 Mg Cap PO Not Given BID KYLE Ziprasidone 20 mg 03/14/21 11:18 Ziprasidone Mesylate 20 Mg Vial IM Q6H PRN Agitation Zolpidem Tartrate 5 mg 03/13/21 17:55 03/13/21 21:16 Zolpidem 5 Mg Tab PO 5 mg QHS PRN Administration Sleep Nutrition/Malnutrition Assess - Dietary Evaluation Nutrition/Malnutrition Findings: Nutrition Notes Start: 03/02/21 10:10 Freq: Status: Active Protocol: Document 03/15/21 13:07 (Rec: 03/15/21 13:29 [email or web address]) Nutrition Notes Initial or Follow up Reassessment Current Diagnosis Acute Kidney Injury,COPD, Diabetes,Sepsis,Hypertension, Heart Failure,Respiratory Failure Other Pertinent Diagnosis pneu, AMS, COVID(+) Current Diet Cardiac Labs/Tests POC [phone] Pertinent Medications reviewed Height 5 ft 10 in Weight 131 kg [place] Body Weight (kg) 75.45 BMI 41.4 Subjective/Other Information Unable to speak with pt. RN reports pt ate one apple sauce and he states he isn't hungry . He did not eat breakfast or lunch. Burn Absent Trauma Absent Current % PO Negligible Minimum of two criteria No Fluid Accumulation Mild (non-severe) #1 Nutrition Diagnosis Inadequate oral intake As Evidenced by Signs and Symptoms pt eating 0% of meals Diagnosis Progress(for reassessment Continues documentation) Is patient on ventilator? No Is Patient Ambulatory and/or Out of Bed No REE-([place]-confined to bed) 2614.728 Kcal/Kg value to use for calculation 16 Approximate Energy Requirements Using 2096 kcal/Kg Calculation Used for Recommendations Kcal/kg Additional Notes Pro needs up to 2.5g/klg IBW: up to 189g/day Fluid needs 1ml/kcal Nutrition Intervention Change Diet Order: continue Add Supplement/Snack (indicate name/kcal Glucerna daily /protein ) Provides kCal: 220 Provides Protein (gm) 10 Goal #1 PO tolerance Goal #2 PO intake to meet at least 75% energy and pro needs Follow-Up By: 03/19/21 Additional Comments F/u: intakes and ONS tolerance
[2021-03-17] MEDS: ENOXAPARIN 150 MG/1 ML INJ SUB-Q SCH ×2 (13:26→23:19)
[2021-03-17] MEDS: FUROSEMIDE 40 MG TAB PO SCH (13:26)
[2021-03-17] MEDS: PREGABALIN 50 MG CAP PO SCH ×2 (13:27→23:18)
[2021-03-17] MEDS: CHOLECALCIFEROL (VIT D3) 5,000 UNIT TAB PO SCH (13:41)
[2021-03-17] MEDS: ZINC SULFATE 220 MG CAP PO SCH ×2 (13:50→23:18)
[2021-03-17 14:31] LABS: Hemoglobin 8.6 gm/dl (11.8-15.2); Mean Corpuscular HGB Conc 34 % (32-34); Mean Corpuscular Volume 99 fl (84-94); Platelet Count 307 K/mm3 (140-440); Red Blood Count 2.52 M/mm3 (3.65-5.03); Red Cell Distribution Width 18.1 % (13.2-15.2)
[2021-03-17 14:47] LABS: Blood Urea Nitrogen 12 mg/dL (9-20); Calcium 8.5 mg/dL (8.4-10.2); Hemolysis Index 4
[2021-03-17 14:48] LABS: BUN/Creatinine Ratio 30
--- NOTE | 2021-03-17 20:59 | Progress Note ---
Assessment and Plan Acute hypoxemic respiratory failure COVID pneumonia/ARDS NSTEMI Acute kidney injury-resolved Severe sepsis-resolved Bilateral pneumonia H/O congestive heart failure Diabetes type 2 Elevated serum transaminases Anemia that is microcytic -continue to titrate supplemental oxygen to keep SpO2 89-92% Can place on high flow wall oxygen -ABG,CXR as clinically indicated -continue bronchodilators with pulmonary hygiene per RT -monitor hemodynamics closely, renal function and electrolytes while on intermittent diuretic therapy - continue to avoid benzodiazepines, reduce the possibility of delirium - Maintenance of sleep-wake cycle, avoid delirium - continue enteric nutritional support at goal rate as tolerated - Stress ulcer prophylaxis-Famotidine - VTE prophylaxis-on therapeutic anticoagulation - PT/OT/ROM exercises - continue mobility , off loading and frequent turning per facility protocol for pressure ulcer prevention -Supportive transfusions as clinically indicated to keep HgB >7g/dL - continue other care per attending / other consultants COVID SPECIFIC INTERVENTIONS -continue contact and airborne isolation per facility protocol -s/p Remdesivir as per ID/Pulmonary developed protocols -systemic steroids for severe COVID-19 infection -continue to trend and monitor inflammatory markers per facility protocol -therapeutic anticoagulation per system Protocol based on d-dimer and clinical considerations-on therapeutic anticoagulation for lower extremity DVT -CRP was elevated but was not a candidate for Tociluzimab CONDITION:FAIR PROGNOSIS: GUARDED CODE STATUS: FULL CODE Subjective Date of service: 03/17/21 Principal diagnosis: Ac hypoxemic resp failure; NSTEMI; ALPHONSO; Sepsis; PNA; CHF; DM II; AMS Interval history: Patient is seen today for: Acute hypoxemic respiratory failure; COVID infection; NSTEMI; ALPHONSO; Severe sepsis; Pneumonia; CHF; DM II; Acute encephalopathy Seen and examined at bedside; 24hour events reviewed; nursing and respiratory care staff consulted; no adverse overnight events reported to me; resting peacefully in bed; remains on high flow oxygen therapy Objective Vital Signs - 12hr 03/17/21 03/17/21 03/17/21 09:45 14:00 20:09 Temperature 99.0 F Pulse Rate 107 H Respiratory 20 Rate Blood Pressure 126/79 O2 Sat by Pulse 87 96 92 Oximetry Constitutional: no acute distress, other (middle aged obese male with mildly increased respiratory effort at rest) Eyes: non-icteric ENT: oropharynx moist, other Neck: supple, no lymphadenopathy, no JVD, other (large neck circumference) Effort: mildly labored Ascultation: Bilateral: diminished breath sounds, rhonchi (posterior bases) Percussion: Bilateral: not dull Cardiovascular: regular rate and rhythm, other (S1,S2) Gastrointestinal: normoactive bowel sounds, soft, non-tender, non-distended (protuberant) Integumentary: normal Extremities: no cyanosis, pulses normal, no ischemia or petechiae, edema (trace) Neurologic: non-focal exam (grossly), pupils equal and round Psychiatric: other (encephalopathy) CBC and BMP: 03/18/21 07:53 03/22/21 14:44 ABG, PT/INR, D-dimer: ABG ABG pH 7.487 (7.320-7.450) H 03/10/21 12:33 POC ABG pCO2 40.4 mmHg (32.0-48.0) 03/10/21 12:33 POC ABG pO2 62.1 mmHg (83-108) L 03/10/21 12:33 POC ABG HCO3 29.9 03/10/21 12:33 ABG O2 Saturation 90.2 (0-100) 03/10/21 12:33 PT/INR, D-dimer PT 15.6 Sec. (12.2-14.9) H 03/04/21 10:17 INR 1.18 (0.87-1.13) H 03/04/21 10:17 D-Dimer 475.91 ng/mlDDU (0-234) H 03/14/21 03:40 Abnormal lab findings: Abnormal Labs 03/01/21 03/01/21 03/01/21 19:15 19:21 19:21 WBC 12.7 H RBC 2.77 L Hgb 9.1 L Hct 27.7 L MCV 100 H MCH 33 H RDW 18.0 H Seg Neutrophils % Monocytes % (Manual) 17.0 H Seg Neutrophils # Monocytes # (Manual) 2.2 H PT INR D-Dimer Heparin Anti-Xa Level ABG pH POC ABG pCO2 POC ABG pO2 64.9 L ABG Hemoglobin 9.3 L ABG Oxyhemoglobin 93.0 L ABG Sodium 133.8 L ABG Potassium ABG Chloride 97.0 L ABG Glucose 191 H Carboxyhemoglobin Sodium Potassium Chloride Carbon Dioxide BUN Creatinine Glucose POC Glucose Lactic Acid Calcium Phosphorus Magnesium Ferritin Total Bilirubin Direct Bilirubin AST ALT Alkaline Phosphatase Ammonia Lactate Dehydrogenase Troponin T 0.493 H* C-Reactive Protein Total Protein Albumin Triglycerides 400 H Cholesterol 232 H HDL Cholesterol 22 L Lipase Arterial Blood Glucose 191 H Arterial Blood Ionized Calcium 4.4 L Urine WBC (Auto) Salicylates Acetaminophen Coronavirus (PCR) 03/01/21 03/01/21 03/01/21 19:21 19:21 19:21 WBC RBC Hgb Hct MCV MCH RDW Seg Neutrophils % Monocytes % (Manual) Seg Neutrophils # Monocytes # (Manual) PT 16.6 H INR 1.28 H D-Dimer Heparin Anti-Xa Level ABG pH POC ABG pCO2 POC ABG pO2 ABG Hemoglobin ABG Oxyhemoglobin ABG Sodium ABG Potassium ABG Chloride ABG Glucose Carboxyhemoglobin Sodium 132 L Potassium Chloride 92.2 L Carbon Dioxide BUN 43 H Creatinine 2.4 H Glucose 190 H POC Glucose Lactic Acid 2.90 H* Calcium Phosphorus Magnesium Ferritin Total Bilirubin 1.60 H Direct Bilirubin 1.2 H AST 275 H ALT 156 H Alkaline Phosphatase 282 H Ammonia Lactate Dehydrogenase Troponin T C-Reactive Protein Total Protein 5.8 L Albumin 2.6 L Triglycerides Cholesterol HDL Cholesterol Lipase 120 H Arterial Blood Glucose Arterial Blood Ionized Calcium Urine WBC (Auto) Salicylates Acetaminophen Coronavirus (PCR) 03/01/21 03/01/21 03/01/21 19:21 19:21 19:21 WBC RBC Hgb Hct MCV MCH RDW Seg Neutrophils % Monocytes % (Manual) Seg Neutrophils # Monocytes # (Manual) PT INR D-Dimer Heparin Anti-Xa Level ABG pH POC ABG pCO2 POC ABG pO2 ABG Hemoglobin ABG Oxyhemoglobin ABG Sodium ABG Potassium ABG Chloride ABG Glucose Carboxyhemoglobin Sodium Potassium Chloride Carbon Dioxide BUN Creatinine Glucose POC Glucose Lactic Acid Calcium Phosphorus Magnesium Ferritin Total Bilirubin Direct Bilirubin AST ALT Alkaline Phosphatase Ammonia 71.0 H Lactate Dehydrogenase Troponin T C-Reactive Protein Total Protein Albumin Triglycerides Cholesterol HDL Cholesterol Lipase Arterial Blood Glucose Arterial Blood Ionized Calcium Urine WBC (Auto) Salicylates < 0.3 L Acetaminophen 5.0 L Coronavirus (PCR) 03/01/21 03/01/21 03/02/21 20:55 20:55 00:01 WBC RBC Hgb Hct MCV MCH RDW Seg Neutrophils % Monocytes % (Manual) Seg Neutrophils # Monocytes # (Manual) PT INR D-Dimer Heparin Anti-Xa Level ABG pH 7.234 L POC ABG pCO2 POC ABG pO2 240.5 H ABG Hemoglobin 9.3 L ABG Oxyhemoglobin 99.1 H ABG Sodium 135.3 L ABG Potassium ABG Chloride ABG Glucose 286 H Carboxyhemoglobin 0.3 L Sodium Potassium Chloride Carbon Dioxide BUN Creatinine Glucose POC Glucose Lactic Acid 4.30 H* Calcium Phosphorus Magnesium Ferritin Total Bilirubin Direct Bilirubin AST ALT Alkaline Phosphatase Ammonia Lactate Dehydrogenase Troponin T 0.484 H* C-Reactive Protein Total Protein Albumin Triglycerides Cholesterol HDL Cholesterol Lipase Arterial Blood Glucose 286 H Arterial Blood Ionized Calcium Urine WBC (Auto) Salicylates Acetaminophen Coronavirus (PCR) 03/02/21 03/02/21 03/02/21 03:42 05:23 06:35 WBC RBC Hgb Hct MCV MCH RDW Seg Neutrophils % Monocytes % (Manual) Seg Neutrophils # Monocytes # (Manual) PT INR D-Dimer Heparin Anti-Xa Level ABG pH 7.225 L POC ABG pCO2 POC ABG pO2 181.8 H ABG Hemoglobin 9.4 L ABG Oxyhemoglobin 98.6 H ABG Sodium 132.1 L ABG Potassium 5.0 H ABG Chloride ABG Glucose 454 H Carboxyhemoglobin 0.3 L Sodium Potassium Chloride Carbon Dioxide BUN Creatinine Glucose POC Glucose 410 H Lactic Acid 7.50 H* Calcium Phosphorus Magnesium Ferritin Total Bilirubin Direct Bilirubin AST ALT Alkaline Phosphatase Ammonia Lactate Dehydrogenase Troponin T C-Reactive Protein Total Protein Albumin Triglycerides Cholesterol HDL Cholesterol Lipase Arterial Blood Glucose 454 H Arterial Blood Ionized Calcium 4.2 L Urine WBC (Auto) Salicylates Acetaminophen Coronavirus (PCR) 03/02/21 03/02/21 03/02/21 10:48 10:48 10:48 WBC RBC Hgb Hct MCV MCH RDW Seg Neutrophils % Monocytes % (Manual) Seg Neutrophils # Monocytes # (Manual) PT INR D-Dimer Heparin Anti-Xa Level ABG pH POC ABG pCO2 POC ABG pO2 ABG Hemoglobin ABG Oxyhemoglobin ABG Sodium ABG Potassium ABG Chloride ABG Glucose Carboxyhemoglobin Sodium 132 L Potassium Chloride 93.3 L Carbon Dioxide 20 L BUN 46 H Creatinine 1.9 H Glucose 503 H* POC Glucose Lactic Acid 3.40 H* Calcium 7.9 L Phosphorus 5.80 H Magnesium Ferritin Total Bilirubin Direct Bilirubin AST ALT Alkaline Phosphatase Ammonia Lactate Dehydrogenase Troponin T C-Reactive Protein Total Protein Albumin Triglycerides Cholesterol HDL Cholesterol Lipase Arterial Blood Glucose Arterial Blood Ionized Calcium Urine WBC (Auto) Salicylates Acetaminophen Coronavirus (PCR) 03/02/21 03/02/21 03/02/21 11:23 11:38 15:33 WBC RBC Hgb Hct MCV MCH RDW Seg Neutrophils % Monocytes % (Manual) Seg Neutrophils # Monocytes # (Manual) PT INR D-Dimer Heparin Anti-Xa Level ABG pH 7.318 L POC ABG pCO2 POC ABG pO2 ABG Hemoglobin 9.2 L ABG Oxyhemoglobin ABG Sodium 133.2 L ABG Potassium ABG Chloride ABG Glucose 504 H Carboxyhemoglobin 0.3 L Sodium Potassium Chloride Carbon Dioxide BUN Creatinine Glucose POC Glucose 468 H 445 H Lactic Acid Calcium Phosphorus Magnesium Ferritin Total Bilirubin Direct Bilirubin AST ALT Alkaline Phosphatase Ammonia Lactate Dehydrogenase Troponin T C-Reactive Protein Total Protein Albumin Triglycerides Cholesterol HDL Cholesterol Lipase Arterial Blood Glucose 504 H Arterial Blood Ionized Calcium 4.2 L Urine WBC (Auto) Salicylates Acetaminophen Coronavirus (PCR) 03/02/21 03/02/21 03/02/21 16:28 16:28 16:28 WBC RBC Hgb 8.8 L Hct 26.0 L MCV MCH RDW Seg Neutrophils % Monocytes % (Manual) Seg Neutrophils # Monocytes # (Manual) PT 15.2 H INR 1.14 H D-Dimer Heparin Anti-Xa Level ABG pH POC ABG pCO2 POC ABG pO2 ABG Hemoglobin ABG Oxyhemoglobin ABG Sodium ABG Potassium ABG Chloride ABG Glucose Carboxyhemoglobin Sodium 135 L Potassium Chloride 93.8 L Carbon Dioxide BUN 48 H Creatinine 1.8 H Glucose 454 H POC Glucose Lactic Acid Calcium 7.6 L Phosphorus Magnesium Ferritin Total Bilirubin Direct Bilirubin AST ALT Alkaline Phosphatase Ammonia Lactate Dehydrogenase Troponin T C-Reactive Protein Total Protein Albumin Triglycerides Cholesterol HDL Cholesterol Lipase Arterial Blood Glucose Arterial Blood Ionized Calcium Urine WBC (Auto) Salicylates Acetaminophen Coronavirus (PCR) 03/02/21 03/02/21 03/02/21 17:39 18:52 20:09 WBC RBC Hgb Hct MCV MCH RDW Seg Neutrophils % Monocytes % (Manual) Seg Neutrophils # Monocytes # (Manual) PT INR D-Dimer Heparin Anti-Xa Level ABG pH POC ABG pCO2 POC ABG pO2 ABG Hemoglobin ABG Oxyhemoglobin ABG Sodium ABG Potassium ABG Chloride ABG Glucose Carboxyhemoglobin Sodium Potassium Chloride Carbon Dioxide BUN Creatinine Glucose POC Glucose 404 H 357 H 347 H Lactic Acid Calcium Phosphorus Magnesium Ferritin Total Bilirubin Direct Bilirubin AST ALT Alkaline Phosphatase Ammonia Lactate Dehydrogenase Troponin T C-Reactive Protein Total Protein Albumin Triglycerides Cholesterol HDL Cholesterol Lipase Arterial Blood Glucose Arterial Blood Ionized Calcium Urine WBC (Auto) Salicylates Acetaminophen Coronavirus (PCR) 03/02/21 03/02/21 03/02/21 21:03 22:00 22:55 WBC RBC Hgb Hct MCV MCH RDW Seg Neutrophils % Monocytes % (Manual) Seg Neutrophils # Monocytes # (Manual) PT INR D-Dimer Heparin Anti-Xa Level ABG pH POC ABG pCO2 POC ABG pO2 ABG Hemoglobin ABG Oxyhemoglobin ABG Sodium ABG Potassium ABG Chloride ABG Glucose Carboxyhemoglobin Sodium Potassium Chloride Carbon Dioxide BUN Creatinine Glucose POC Glucose 307 H 270 H 237 H Lactic Acid Calcium Phosphorus Magnesium Ferritin Total Bilirubin Direct Bilirubin AST ALT Alkaline Phosphatase Ammonia Lactate Dehydrogenase Troponin T C-Reactive Protein Total Protein Albumin Triglycerides Cholesterol HDL Cholesterol Lipase Arterial Blood Glucose Arterial Blood Ionized Calcium Urine WBC (Auto) Salicylates Acetaminophen Coronavirus (PCR) 03/03/21 03/03/21 03/03/21 00:02 00:57 02:01 WBC RBC Hgb Hct MCV MCH RDW Seg Neutrophils % Monocytes % (Manual) Seg Neutrophils # Monocytes # (Manual) PT INR D-Dimer Heparin Anti-Xa Level ABG pH POC ABG pCO2 POC ABG pO2 ABG Hemoglobin ABG Oxyhemoglobin ABG Sodium ABG Potassium ABG Chloride ABG Glucose Carboxyhemoglobin Sodium Potassium Chloride Carbon Dioxide BUN Creatinine Glucose POC Glucose 252 H 214 H 261 H Lactic Acid Calcium Phosphorus Magnesium Ferritin Total Bilirubin Direct Bilirubin AST ALT Alkaline Phosphatase Ammonia Lactate Dehydrogenase Troponin T C-Reactive Protein Total Protein Albumin Triglycerides Cholesterol HDL Cholesterol Lipase Arterial Blood Glucose Arterial Blood Ionized Calcium Urine WBC (Auto) Salicylates Acetaminophen Coronavirus (PCR) 03/03/21 03/03/21 03/03/21 03:07 03:10 03:50 WBC 13.7 H RBC 2.69 L Hgb 8.7 L Hct 26.9 L MCV 100 H MCH RDW 18.5 H Seg Neutrophils % 79.0 H Monocytes % (Manual) Seg Neutrophils # 10.8 H Monocytes # (Manual) PT INR D-Dimer Heparin Anti-Xa Level ABG pH POC ABG pCO2 50.9 H POC ABG pO2 81.9 L ABG Hemoglobin 8.7 L ABG Oxyhemoglobin ABG Sodium 134.2 L ABG Potassium ABG Chloride 96.0 L ABG Glucose 279 H Carboxyhemoglobin 0.4 L Sodium Potassium Chloride Carbon Dioxide BUN Creatinine Glucose POC Glucose 276 H Lactic Acid Calcium Phosphorus Magnesium Ferritin Total Bilirubin Direct Bilirubin AST ALT Alkaline Phosphatase Ammonia Lactate Dehydrogenase Troponin T C-Reactive Protein Total Protein Albumin Triglycerides Cholesterol HDL Cholesterol Lipase Arterial Blood Glucose 279 H Arterial Blood Ionized Calcium 3.9 L Urine WBC (Auto) Salicylates Acetaminophen Coronavirus (PCR) 03/03/21 03/03/21 03/03/21 03:50 04:06 04:32 WBC RBC Hgb Hct MCV MCH RDW Seg Neutrophils % Monocytes % (Manual) Seg Neutrophils # Monocytes # (Manual) PT INR D-Dimer Heparin Anti-Xa Level ABG pH POC ABG pCO2 POC ABG pO2 ABG Hemoglobin ABG Oxyhemoglobin ABG Sodium ABG Potassium ABG Chloride ABG Glucose Carboxyhemoglobin Sodium Potassium Chloride 94.2 L Carbon Dioxide BUN 45 H Creatinine 1.9 H Glucose 261 H POC Glucose 256 H Lactic Acid Calcium 7.3 L Phosphorus Magnesium Ferritin Total Bilirubin Direct Bilirubin 0.9 H AST 208 H ALT 148 H Alkaline Phosphatase 251 H Ammonia Lactate Dehydrogenase Troponin T C-Reactive Protein Total Protein 5.5 L Albumin 2.4 L Triglycerides Cholesterol HDL Cholesterol Lipase Arterial Blood Glucose Arterial Blood Ionized Calcium Urine WBC (Auto) Salicylates Acetaminophen Coronavirus (PCR) 03/03/21 03/03/21 03/03/21 05:23 06:06 07:07 WBC RBC Hgb Hct MCV MCH RDW Seg Neutrophils % Monocytes % (Manual) Seg Neutrophils # Monocytes # (Manual) PT INR D-Dimer Heparin Anti-Xa Level ABG pH POC ABG pCO2 POC ABG pO2 ABG Hemoglobin ABG Oxyhemoglobin ABG Sodium ABG Potassium ABG Chloride ABG Glucose Carboxyhemoglobin Sodium Potassium Chloride Carbon Dioxide BUN Creatinine Glucose POC Glucose 214 H 249 H 237 H Lactic Acid Calcium Phosphorus Magnesium Ferritin Total Bilirubin Direct Bilirubin AST ALT Alkaline Phosphatase Ammonia Lactate Dehydrogenase Troponin T C-Reactive Protein Total Protein Albumin Triglycerides Cholesterol HDL Cholesterol Lipase Arterial Blood Glucose Arterial Blood Ionized Calcium Urine WBC (Auto) Salicylates Acetaminophen Coronavirus (PCR) 03/03/21 03/03/21 03/03/21 07:58 08:58 09:52 WBC RBC Hgb Hct MCV MCH RDW Seg Neutrophils % Monocytes % (Manual) Seg Neutrophils # Monocytes # (Manual) PT INR D-Dimer Heparin Anti-Xa Level ABG pH POC ABG pCO2 POC ABG pO2 ABG Hemoglobin ABG Oxyhemoglobin ABG Sodium ABG Potassium ABG Chloride ABG Glucose Carboxyhemoglobin Sodium Potassium Chloride Carbon Dioxide BUN Creatinine Glucose POC Glucose 227 H 215 H 207 H Lactic Acid Calcium Phosphorus Magnesium Ferritin Total Bilirubin Direct Bilirubin AST ALT Alkaline Phosphatase Ammonia Lactate Dehydrogenase Troponin T C-Reactive Protein Total Protein Albumin Triglycerides Cholesterol HDL Cholesterol Lipase Arterial Blood Glucose Arterial Blood Ionized Calcium Urine WBC (Auto) Salicylates Acetaminophen Coronavirus (PCR) 03/03/21 03/03/21 03/03/21 10:55 11:44 12:53 WBC RBC Hgb Hct MCV MCH RDW Seg Neutrophils % Monocytes % (Manual) Seg Neutrophils # Monocytes # (Manual) PT INR D-Dimer Heparin Anti-Xa Level ABG pH POC ABG pCO2 POC ABG pO2 ABG Hemoglobin ABG Oxyhemoglobin ABG Sodium ABG Potassium ABG Chloride ABG Glucose Carboxyhemoglobin Sodium Potassium Chloride Carbon Dioxide BUN Creatinine Glucose POC Glucose 198 H 210 H 203 H Lactic Acid Calcium Phosphorus Magnesium Ferritin Total Bilirubin Direct Bilirubin AST ALT Alkaline Phosphatase Ammonia Lactate Dehydrogenase Troponin T C-Reactive Protein Total Protein Albumin Triglycerides Cholesterol HDL Cholesterol Lipase Arterial Blood Glucose Arterial Blood Ionized Calcium Urine WBC (Auto) Salicylates Acetaminophen Coronavirus (PCR) 03/03/21 03/03/21 03/03/21 13:53 14:58 15:23 WBC RBC Hgb Hct MCV MCH RDW Seg Neutrophils % Monocytes % (Manual) Seg Neutrophils # Monocytes # (Manual) PT INR D-Dimer Heparin Anti-Xa Level ABG pH POC ABG pCO2 POC ABG pO2 ABG Hemoglobin ABG Oxyhemoglobin ABG Sodium ABG Potassium ABG Chloride ABG Glucose Carboxyhemoglobin Sodium Potassium Chloride Carbon Dioxide BUN Creatinine Glucose POC Glucose 210 H 187 H Lactic Acid 3.10 H* Calcium Phosphorus Magnesium Ferritin Total Bilirubin Direct Bilirubin AST ALT Alkaline Phosphatase Ammonia Lactate Dehydrogenase Troponin T C-Reactive Protein Total Protein Albumin Triglycerides Cholesterol HDL Cholesterol Lipase Arterial Blood Glucose Arterial Blood Ionized Calcium Urine WBC (Auto) Salicylates Acetaminophen Coronavirus (PCR) 03/03/21 03/03/21 03/03/21 15:51 16:25 16:53 WBC RBC Hgb Hct MCV MCH RDW Seg Neutrophils % Monocytes % (Manual) Seg Neutrophils # Monocytes # (Manual) PT INR D-Dimer Heparin Anti-Xa Level ABG pH POC ABG pCO2 POC ABG pO2 ABG Hemoglobin ABG Oxyhemoglobin ABG Sodium ABG Potassium ABG Chloride ABG Glucose Carboxyhemoglobin Sodium Potassium Chloride 91.0 L Carbon Dioxide 34 H BUN 47 H Creatinine 1.7 H Glucose 190 H POC Glucose 182 H 179 H Lactic Acid Calcium 7.6 L Phosphorus Magnesium Ferritin Total Bilirubin Direct Bilirubin AST ALT Alkaline Phosphatase Ammonia Lactate Dehydrogenase Troponin T C-Reactive Protein Total Protein Albumin Triglycerides Cholesterol HDL Cholesterol Lipase Arterial Blood Glucose Arterial Blood Ionized Calcium Urine WBC (Auto) Salicylates Acetaminophen Coronavirus (PCR) 03/03/21 03/03/21 03/03/21 17:55 19:37 20:57 WBC RBC Hgb Hct MCV MCH RDW Seg Neutrophils % Monocytes % (Manual) Seg Neutrophils # Monocytes # (Manual) PT INR D-Dimer Heparin Anti-Xa Level ABG pH POC ABG pCO2 POC ABG pO2 ABG Hemoglobin ABG Oxyhemoglobin ABG Sodium ABG Potassium ABG Chloride ABG Glucose Carboxyhemoglobin Sodium Potassium Chloride Carbon Dioxide BUN Creatinine Glucose POC Glucose 185 H 174 H 175 H Lactic Acid Calcium Phosphorus Magnesium Ferritin Total Bilirubin Direct Bilirubin AST ALT Alkaline Phosphatase Ammonia Lactate Dehydrogenase Troponin T C-Reactive Protein Total Protein Albumin Triglycerides Cholesterol HDL Cholesterol Lipase Arterial Blood Glucose Arterial Blood Ionized Calcium Urine WBC (Auto) Salicylates Acetaminophen Coronavirus (PCR) 03/03/21 03/03/21 03/03/21 22:02 22:56 23:10 WBC RBC Hgb Hct MCV MCH RDW Seg Neutrophils % Monocytes % (Manual) Seg Neutrophils # Monocytes # (Manual) PT INR D-Dimer Heparin Anti-Xa Level 0.75 H ABG pH POC ABG pCO2 POC ABG pO2 ABG Hemoglobin ABG Oxyhemoglobin ABG Sodium ABG Potassium ABG Chloride ABG Glucose Carboxyhemoglobin Sodium Potassium Chloride Carbon Dioxide BUN Creatinine Glucose POC Glucose 170 H 160 H Lactic Acid Calcium Phosphorus Magnesium Ferritin Total Bilirubin Direct Bilirubin AST ALT Alkaline Phosphatase Ammonia Lactate Dehydrogenase Troponin T C-Reactive Protein Total Protein Albumin Triglycerides Cholesterol HDL Cholesterol Lipase Arterial Blood Glucose Arterial Blood Ionized Calcium Urine WBC (Auto) Salicylates Acetaminophen Coronavirus (PCR) 03/03/21 03/04/21 03/04/21 23:42 00:52 01:55 WBC RBC Hgb Hct MCV MCH RDW Seg Neutrophils % Monocytes % (Manual) Seg Neutrophils # Monocytes # (Manual) PT INR D-Dimer Heparin Anti-Xa Level ABG pH POC ABG pCO2 POC ABG pO2 ABG Hemoglobin ABG Oxyhemoglobin ABG Sodium ABG Potassium ABG Chloride ABG Glucose Carboxyhemoglobin Sodium Potassium Chloride Carbon Dioxide BUN Creatinine Glucose POC Glucose 161 H 167 H 119 H Lactic Acid Calcium Phosphorus Magnesium Ferritin Total Bilirubin Direct Bilirubin AST ALT Alkaline Phosphatase Ammonia Lactate Dehydrogenase Troponin T C-Reactive Protein Total Protein Albumin Triglycerides Cholesterol HDL Cholesterol Lipase Arterial Blood Glucose Arterial Blood Ionized Calcium Urine WBC (Auto) Salicylates Acetaminophen Coronavirus (PCR) 03/04/21 03/04/21 03/04/21 02:58 03:47 04:03 WBC RBC Hgb Hct MCV MCH RDW Seg Neutrophils % Monocytes % (Manual) Seg Neutrophils # Monocytes # (Manual) PT INR D-Dimer Heparin Anti-Xa Level ABG pH POC ABG pCO2 57.3 H POC ABG pO2 63.7 L ABG Hemoglobin 8.4 L ABG Oxyhemoglobin 88.6 L ABG Sodium 132.5 L ABG Potassium 3.2 L ABG Chloride 94.0 L ABG Glucose 129 H Carboxyhemoglobin Sodium Potassium Chloride Carbon Dioxide BUN Creatinine Glucose POC Glucose 111 H 122 H Lactic Acid Calcium Phosphorus Magnesium Ferritin Total Bilirubin Direct Bilirubin AST ALT Alkaline Phosphatase Ammonia Lactate Dehydrogenase Troponin T C-Reactive Protein Total Protein Albumin Triglycerides Cholesterol HDL Cholesterol Lipase Arterial Blood Glucose 129 H Arterial Blood Ionized Calcium 3.8 L Urine WBC (Auto) Salicylates Acetaminophen Coronavirus (PCR) 03/04/21 03/04/21 03/04/21 05:15 05:26 05:26 WBC RBC Hgb 7.9 L Hct 23.7 L MCV MCH RDW Seg Neutrophils % Monocytes % (Manual) Seg Neutrophils # Monocytes # (Manual) PT INR D-Dimer Heparin Anti-Xa Level ABG pH POC ABG pCO2 POC ABG pO2 ABG Hemoglobin ABG Oxyhemoglobin ABG Sodium ABG Potassium ABG Chloride ABG Glucose Carboxyhemoglobin Sodium Potassium Chloride Carbon Dioxide BUN Creatinine Glucose POC Glucose 127 H Lactic Acid Calcium Phosphorus Magnesium Ferritin Total Bilirubin Direct Bilirubin 0.6 H AST 123 H ALT 105 H Alkaline Phosphatase 232 H Ammonia Lactate Dehydrogenase Troponin T C-Reactive Protein Total Protein 4.8 L Albumin 2.2 L Triglycerides Cholesterol HDL Cholesterol Lipase Arterial Blood Glucose Arterial Blood Ionized Calcium Urine WBC (Auto) Salicylates Acetaminophen Coronavirus (PCR) 03/04/21 03/04/21 03/04/21 05:26 06:01 06:53 WBC RBC Hgb Hct MCV MCH RDW Seg Neutrophils % Monocytes % (Manual) Seg Neutrophils # Monocytes # (Manual) PT INR D-Dimer Heparin Anti-Xa Level 0.71 H ABG pH POC ABG pCO2 POC ABG pO2 ABG Hemoglobin ABG Oxyhemoglobin ABG Sodium ABG Potassium ABG Chloride ABG Glucose Carboxyhemoglobin Sodium Potassium Chloride Carbon Dioxide BUN Creatinine Glucose POC Glucose 120 H 117 H Lactic Acid Calcium Phosphorus Magnesium Ferritin Total Bilirubin Direct Bilirubin AST ALT Alkaline Phosphatase Ammonia Lactate Dehydrogenase Troponin T C-Reactive Protein Total Protein Albumin Triglycerides Cholesterol HDL Cholesterol Lipase Arterial Blood Glucose Arterial Blood Ionized Calcium Urine WBC (Auto) Salicylates Acetaminophen Coronavirus (PCR) 03/04/21 03/04/21 03/04/21 07:57 10:17 10:17 WBC RBC 2.51 L Hgb 8.3 L Hct 25.3 L MCV 101 H MCH 33 H RDW 18.5 H Seg Neutrophils % Monocytes % (Manual) Seg Neutrophils # Monocytes # (Manual) PT INR D-Dimer Heparin Anti-Xa Level ABG pH POC ABG pCO2 POC ABG pO2 ABG Hemoglobin ABG Oxyhemoglobin ABG Sodium ABG Potassium ABG Chloride ABG Glucose Carboxyhemoglobin Sodium 136 L Potassium Chloride 93.1 L Carbon Dioxide 33 H BUN 46 H Creatinine 1.4 H Glucose 151 H POC Glucose 129 H Lactic Acid Calcium 7.5 L Phosphorus Magnesium Ferritin Total Bilirubin Direct Bilirubin AST 126 H ALT 100 H Alkaline Phosphatase 226 H Ammonia Lactate Dehydrogenase Troponin T C-Reactive Protein Total Protein 5.0 L Albumin 2.2 L Triglycerides Cholesterol HDL Cholesterol Lipase Arterial Blood Glucose Arterial Blood Ionized Calcium Urine WBC (Auto) Salicylates Acetaminophen Coronavirus (PCR) 03/04/21 03/04/21 03/04/21 10:17 10:17 11:26 WBC RBC Hgb Hct MCV MCH RDW Seg Neutrophils % Monocytes % (Manual) Seg Neutrophils # Monocytes # (Manual) PT 15.6 H INR 1.18 H D-Dimer Heparin Anti-Xa Level ABG pH POC ABG pCO2 POC ABG pO2 ABG Hemoglobin ABG Oxyhemoglobin ABG Sodium ABG Potassium ABG Chloride ABG Glucose Carboxyhemoglobin Sodium Potassium Chloride Carbon Dioxide BUN Creatinine Glucose POC Glucose 167 H Lactic Acid Calcium Phosphorus Magnesium Ferritin Total Bilirubin Direct Bilirubin AST ALT Alkaline Phosphatase Ammonia Lactate Dehydrogenase Troponin T C-Reactive Protein Total Protein Albumin Triglycerides Cholesterol HDL Cholesterol Lipase 78 H Arterial Blood Glucose Arterial Blood Ionized Calcium Urine WBC (Auto) Salicylates Acetaminophen Coronavirus (PCR) 03/04/21 03/04/21 03/04/21 13:04 16:26 17:58 WBC RBC Hgb 7.7 L Hct 23.2 L MCV MCH RDW Seg Neutrophils % Monocytes % (Manual) Seg Neutrophils # Monocytes # (Manual) PT INR D-Dimer Heparin Anti-Xa Level < 0.10 L ABG pH POC ABG pCO2 POC ABG pO2 ABG Hemoglobin ABG Oxyhemoglobin ABG Sodium ABG Potassium ABG Chloride ABG Glucose Carboxyhemoglobin Sodium Potassium Chloride Carbon Dioxide BUN Creatinine Glucose POC Glucose 167 H Lactic Acid Calcium Phosphorus Magnesium Ferritin Total Bilirubin Direct Bilirubin AST ALT Alkaline Phosphatase Ammonia Lactate Dehydrogenase Troponin T C-Reactive Protein Total Protein Albumin Triglycerides Cholesterol HDL Cholesterol Lipase Arterial Blood Glucose Arterial Blood Ionized Calcium Urine WBC (Auto) Salicylates Acetaminophen Coronavirus (PCR) 03/04/21 03/05/21 03/05/21 23:47 04:00 05:06 WBC RBC Hgb Hct MCV MCH RDW Seg Neutrophils % Monocytes % (Manual) Seg Neutrophils # Monocytes # (Manual) PT INR D-Dimer Heparin Anti-Xa Level ABG pH POC ABG pCO2 POC ABG pO2 129.1 H ABG Hemoglobin 8.3 L ABG Oxyhemoglobin ABG Sodium 131.4 L ABG Potassium ABG Chloride 95.0 L ABG Glucose 153 H Carboxyhemoglobin Sodium Potassium Chloride Carbon Dioxide BUN Creatinine Glucose POC Glucose 153 H 139 H Lactic Acid Calcium Phosphorus Magnesium Ferritin Total Bilirubin Direct Bilirubin AST ALT Alkaline Phosphatase Ammonia Lactate Dehydrogenase Troponin T C-Reactive Protein Total Protein Albumin Triglycerides Cholesterol HDL Cholesterol Lipase Arterial Blood Glucose 153 H Arterial Blood Ionized Calcium Urine WBC (Auto) Salicylates Acetaminophen Coronavirus (PCR) 03/05/21 03/05/21 03/05/21 11:43 13:35 13:35 WBC RBC 2.38 L Hgb 7.8 L Hct 23.8 L MCV 100 H MCH 33 H RDW 18.2 H Seg Neutrophils % Monocytes % (Manual) Seg Neutrophils # Monocytes # (Manual) PT INR D-Dimer Heparin Anti-Xa Level ABG pH POC ABG pCO2 POC ABG pO2 ABG Hemoglobin ABG Oxyhemoglobin ABG Sodium ABG Potassium ABG Chloride ABG Glucose Carboxyhemoglobin Sodium Potassium Chloride 94.4 L Carbon Dioxide BUN 49 H Creatinine 1.6 H Glucose 165 H POC Glucose 174 H Lactic Acid Calcium 7.5 L Phosphorus Magnesium Ferritin Total Bilirubin Direct Bilirubin AST ALT Alkaline Phosphatase Ammonia Lactate Dehydrogenase Troponin T C-Reactive Protein Total Protein Albumin Triglycerides Cholesterol HDL Cholesterol Lipase Arterial Blood Glucose Arterial Blood Ionized Calcium Urine WBC (Auto) Salicylates Acetaminophen Coronavirus (PCR) 03/05/21 03/05/21 03/05/21 17:57 21:27 Unknown WBC RBC Hgb Hct MCV MCH RDW Seg Neutrophils % Monocytes % (Manual) Seg Neutrophils # Monocytes # (Manual) PT INR D-Dimer Heparin Anti-Xa Level ABG pH POC ABG pCO2 POC ABG pO2 ABG Hemoglobin ABG Oxyhemoglobin ABG Sodium ABG Potassium ABG Chloride ABG Glucose Carboxyhemoglobin Sodium Potassium Chloride Carbon Dioxide BUN Creatinine Glucose POC Glucose 129 H 129 H Lactic Acid Calcium Phosphorus Magnesium Ferritin Total Bilirubin Direct Bilirubin AST ALT Alkaline Phosphatase Ammonia Lactate Dehydrogenase Troponin T C-Reactive Protein Total Protein Albumin Triglycerides Cholesterol HDL Cholesterol Lipase Arterial Blood Glucose Arterial Blood Ionized Calcium Urine WBC (Auto) Salicylates Acetaminophen Coronavirus (PCR) Positive A 03/06/21 03/06/21 03/06/21 03:30 04:30 05:20 WBC 15.2 H RBC 2.48 L Hgb 8.2 L Hct 24.9 L MCV 100 H MCH 33 H RDW 18.6 H Seg Neutrophils % 72.6 H Monocytes % (Manual) Seg Neutrophils # 11.1 H Monocytes # (Manual) PT INR D-Dimer Heparin Anti-Xa Level ABG pH POC ABG pCO2 49.7 H POC ABG pO2 65.1 L ABG Hemoglobin 9.1 L ABG Oxyhemoglobin 90.2 L ABG Sodium 131.2 L ABG Potassium ABG Chloride 96.0 L ABG Glucose 133 H Carboxyhemoglobin Sodium Potassium Chloride Carbon Dioxide BUN Creatinine Glucose POC Glucose Lactic Acid Calcium Phosphorus Magnesium Ferritin Total Bilirubin Direct Bilirubin AST ALT Alkaline Phosphatase Ammonia Lactate Dehydrogenase Troponin T C-Reactive Protein 27.90 H Total Protein Albumin Triglycerides Cholesterol HDL Cholesterol Lipase Arterial Blood Glucose 133 H Arterial Blood Ionized Calcium 4.2 L Urine WBC (Auto) Salicylates Acetaminophen Coronavirus (PCR) 03/06/21 03/06/21 03/06/21 05:20 05:30 11:52 WBC RBC Hgb Hct MCV MCH RDW Seg Neutrophils % Monocytes % (Manual) Seg Neutrophils # Monocytes # (Manual) PT INR D-Dimer Heparin Anti-Xa Level ABG pH POC ABG pCO2 POC ABG pO2 ABG Hemoglobin ABG Oxyhemoglobin ABG Sodium ABG Potassium ABG Chloride ABG Glucose Carboxyhemoglobin Sodium 135 L Potassium Chloride 94.5 L Carbon Dioxide BUN 49 H Creatinine Glucose 121 H POC Glucose 123 H 123 H Lactic Acid Calcium 7.3 L Phosphorus Magnesium 1.50 L Ferritin Total Bilirubin Direct Bilirubin AST 120 H ALT 74 H Alkaline Phosphatase 306 H Ammonia Lactate Dehydrogenase Troponin T C-Reactive Protein Total Protein 4.5 L Albumin 2.0 L Triglycerides Cholesterol HDL Cholesterol Lipase Arterial Blood Glucose Arterial Blood Ionized Calcium Urine WBC (Auto) Salicylates Acetaminophen Coronavirus (PCR) 03/06/21 03/06/21 03/06/21 14:34 17:45 23:36 WBC RBC Hgb Hct MCV MCH RDW Seg Neutrophils % Monocytes % (Manual) Seg Neutrophils # Monocytes # (Manual) PT INR D-Dimer Heparin Anti-Xa Level ABG pH POC ABG pCO2 POC ABG pO2 ABG Hemoglobin ABG Oxyhemoglobin ABG Sodium ABG Potassium ABG Chloride ABG Glucose Carboxyhemoglobin Sodium Potassium Chloride Carbon Dioxide BUN Creatinine Glucose POC Glucose 140 H 209 H Lactic Acid Calcium Phosphorus Magnesium Ferritin Total Bilirubin Direct Bilirubin AST ALT Alkaline Phosphatase Ammonia Lactate Dehydrogenase Troponin T C-Reactive Protein Total Protein Albumin Triglycerides Cholesterol HDL Cholesterol Lipase Arterial Blood Glucose Arterial Blood Ionized Calcium Urine WBC (Auto) 103.0 H Salicylates Acetaminophen Coronavirus (PCR) 03/07/21 03/07/21 03/07/21 03:00 05:32 08:16 WBC RBC Hgb Hct MCV MCH RDW Seg Neutrophils % Monocytes % (Manual) Seg Neutrophils # Monocytes # (Manual) PT INR D-Dimer Heparin Anti-Xa Level ABG pH POC ABG pCO2 POC ABG pO2 ABG Hemoglobin 8.9 L ABG Oxyhemoglobin ABG Sodium 131.4 L ABG Potassium ABG Chloride ABG Glucose 224 H Carboxyhemoglobin Sodium 136 L Potassium Chloride 95.3 L Carbon Dioxide BUN 45 H Creatinine Glucose 210 H POC Glucose 213 H Lactic Acid Calcium 8.0 L Phosphorus Magnesium Ferritin Total Bilirubin 1.30 H Direct Bilirubin AST 144 H ALT 66 H Alkaline Phosphatase 335 H Ammonia Lactate Dehydrogenase Troponin T C-Reactive Protein Total Protein 4.9 L Albumin 2.1 L Triglycerides Cholesterol HDL Cholesterol Lipase Arterial Blood Glucose 224 H Arterial Blood Ionized Calcium 4.3 L Urine WBC (Auto) Salicylates Acetaminophen Coronavirus (PCR) 03/07/21 03/07/21 03/07/21 08:16 08:16 08:16 WBC RBC 2.47 L Hgb 8.2 L Hct 24.6 L MCV 100 H MCH 33 H RDW 18.1 H Seg Neutrophils % Monocytes % (Manual) Seg Neutrophils # Monocytes # (Manual) PT INR D-Dimer 403.72 H Heparin Anti-Xa Level ABG pH POC ABG pCO2 POC ABG pO2 ABG Hemoglobin ABG Oxyhemoglobin ABG Sodium ABG Potassium ABG Chloride ABG Glucose Carboxyhemoglobin Sodium Potassium Chloride Carbon Dioxide BUN Creatinine Glucose POC Glucose Lactic Acid Calcium Phosphorus Magnesium Ferritin Total Bilirubin Direct Bilirubin AST ALT Alkaline Phosphatase Ammonia Lactate Dehydrogenase 453 H Troponin T C-Reactive Protein 32.50 H Total Protein Albumin Triglycerides Cholesterol HDL Cholesterol Lipase Arterial Blood Glucose Arterial Blood Ionized Calcium Urine WBC (Auto) Salicylates Acetaminophen Coronavirus (PCR) 03/07/21 03/07/21 03/07/21 08:16 11:24 17:22 WBC RBC Hgb Hct MCV MCH RDW Seg Neutrophils % Monocytes % (Manual) Seg Neutrophils # Monocytes # (Manual) PT INR D-Dimer Heparin Anti-Xa Level ABG pH POC ABG pCO2 POC ABG pO2 ABG Hemoglobin ABG Oxyhemoglobin ABG Sodium ABG Potassium ABG Chloride ABG Glucose Carboxyhemoglobin Sodium Potassium Chloride Carbon Dioxide BUN Creatinine Glucose POC Glucose 205 H 211 H Lactic Acid Calcium Phosphorus Magnesium Ferritin > 2000.0 H Total Bilirubin Direct Bilirubin AST ALT Alkaline Phosphatase Ammonia Lactate Dehydrogenase Troponin T C-Reactive Protein Total Protein Albumin Triglycerides Cholesterol HDL Cholesterol Lipase Arterial Blood Glucose Arterial Blood Ionized Calcium Urine WBC (Auto) Salicylates Acetaminophen Coronavirus (PCR) 03/07/21 03/08/21 03/08/21 Unknown 00:05 04:00 WBC RBC Hgb Hct MCV MCH RDW Seg Neutrophils % Monocytes % (Manual) Seg Neutrophils # Monocytes # (Manual) PT INR D-Dimer Heparin Anti-Xa Level 0.94 H ABG pH 7.452 H POC ABG pCO2 POC ABG pO2 75.5 L ABG Hemoglobin 10.0 L ABG Oxyhemoglobin 93.5 L ABG Sodium 134.7 L ABG Potassium ABG Chloride ABG Glucose 268 H Carboxyhemoglobin 0.3 L Sodium Potassium Chloride Carbon Dioxide BUN Creatinine Glucose POC Glucose 253 H Lactic Acid Calcium Phosphorus Magnesium Ferritin Total Bilirubin Direct Bilirubin AST ALT Alkaline Phosphatase Ammonia Lactate Dehydrogenase Troponin T C-Reactive Protein Total Protein Albumin Triglycerides Cholesterol HDL Cholesterol Lipase Arterial Blood Glucose 268 H Arterial Blood Ionized Calcium 4.5 L Urine WBC (Auto) Salicylates Acetaminophen Coronavirus (PCR) 03/08/21 03/08/21 03/08/21 05:27 06:10 06:10 WBC RBC 2.62 L Hgb 8.4 L Hct 26.0 L MCV 100 H MCH RDW 18.0 H Seg Neutrophils % Monocytes % (Manual) Seg Neutrophils # Monocytes # (Manual) PT INR D-Dimer Heparin Anti-Xa Level ABG pH POC ABG pCO2 POC ABG pO2 ABG Hemoglobin ABG Oxyhemoglobin ABG Sodium ABG Potassium ABG Chloride ABG Glucose Carboxyhemoglobin Sodium Potassium Chloride Carbon Dioxide BUN 49 H Creatinine Glucose 280 H POC Glucose 273 H Lactic Acid Calcium Phosphorus Magnesium Ferritin Total Bilirubin Direct Bilirubin AST 130 H ALT 68 H Alkaline Phosphatase 440 H Ammonia Lactate Dehydrogenase Troponin T C-Reactive Protein Total Protein 5.3 L Albumin 1.9 L Triglycerides Cholesterol HDL Cholesterol Lipase Arterial Blood Glucose Arterial Blood Ionized Calcium Urine WBC (Auto) Salicylates Acetaminophen Coronavirus (PCR) 03/08/21 03/08/21 03/08/21 11:27 17:56 23:20 WBC RBC Hgb Hct MCV MCH RDW Seg Neutrophils % Monocytes % (Manual) Seg Neutrophils # Monocytes # (Manual) PT INR D-Dimer Heparin Anti-Xa Level ABG pH POC ABG pCO2 POC ABG pO2 ABG Hemoglobin ABG Oxyhemoglobin ABG Sodium ABG Potassium ABG Chloride ABG Glucose Carboxyhemoglobin Sodium Potassium Chloride Carbon Dioxide BUN Creatinine Glucose POC Glucose 258 H 279 H 289 H Lactic Acid Calcium Phosphorus Magnesium Ferritin Total Bilirubin Direct Bilirubin AST ALT Alkaline Phosphatase Ammonia Lactate Dehydrogenase Troponin T C-Reactive Protein Total Protein Albumin Triglycerides Cholesterol HDL Cholesterol Lipase Arterial Blood Glucose Arterial Blood Ionized Calcium Urine WBC (Auto) Salicylates Acetaminophen Coronavirus (PCR) 03/09/21 03/09/21 03/09/21 04:00 05:12 08:00 WBC RBC Hgb Hct MCV MCH RDW Seg Neutrophils % Monocytes % (Manual) Seg Neutrophils # Monocytes # (Manual) PT INR D-Dimer 249.59 H Heparin Anti-Xa Level ABG pH 7.456 H POC ABG pCO2 POC ABG pO2 ABG Hemoglobin 8.9 L ABG Oxyhemoglobin ABG Sodium 135.6 L ABG Potassium ABG Chloride ABG Glucose 298 H Carboxyhemoglobin 0.3 L Sodium Potassium Chloride Carbon Dioxide BUN Creatinine Glucose POC Glucose 267 H Lactic Acid Calcium Phosphorus Magnesium Ferritin Total Bilirubin Direct Bilirubin AST ALT Alkaline Phosphatase Ammonia Lactate Dehydrogenase Troponin T C-Reactive Protein Total Protein Albumin Triglycerides Cholesterol HDL Cholesterol Lipase Arterial Blood Glucose 298 H Arterial Blood Ionized Calcium 4.5 L Urine WBC (Auto) Salicylates Acetaminophen Coronavirus (PCR) 03/09/21 03/09/21 03/09/21 08:00 08:00 08:00 WBC RBC Hgb Hct MCV MCH RDW Seg Neutrophils % Monocytes % (Manual) Seg Neutrophils # Monocytes # (Manual) PT INR D-Dimer Heparin Anti-Xa Level ABG pH POC ABG pCO2 POC ABG pO2 ABG Hemoglobin ABG Oxyhemoglobin ABG Sodium ABG Potassium ABG Chloride ABG Glucose Carboxyhemoglobin Sodium Potassium Chloride Carbon Dioxide BUN 44 H Creatinine Glucose 289 H POC Glucose Lactic Acid Calcium Phosphorus Magnesium Ferritin 2743.0 H Total Bilirubin Direct Bilirubin AST 134 H ALT 62 H Alkaline Phosphatase 527 H Ammonia Lactate Dehydrogenase 459 H Troponin T C-Reactive Protein 10.60 H Total Protein 5.0 L Albumin 2.2 L Triglycerides Cholesterol HDL Cholesterol Lipase Arterial Blood Glucose Arterial Blood Ionized Calcium Urine WBC (Auto) Salicylates Acetaminophen Coronavirus (PCR) 03/09/21 03/09/21 03/09/21 08:00 11:52 18:05 WBC RBC 2.60 L Hgb 8.5 L Hct 25.5 L MCV 98 H MCH 33 H RDW 18.1 H Seg Neutrophils % Monocytes % (Manual) Seg Neutrophils # Monocytes # (Manual) PT INR D-Dimer Heparin Anti-Xa Level ABG pH POC ABG pCO2 POC ABG pO2 ABG Hemoglobin ABG Oxyhemoglobin ABG Sodium ABG Potassium ABG Chloride ABG Glucose Carboxyhemoglobin Sodium Potassium Chloride Carbon Dioxide BUN Creatinine Glucose POC Glucose 306 H 293 H Lactic Acid Calcium Phosphorus Magnesium Ferritin Total Bilirubin Direct Bilirubin AST ALT Alkaline Phosphatase Ammonia Lactate Dehydrogenase Troponin T C-Reactive Protein Total Protein Albumin Triglycerides Cholesterol HDL Cholesterol Lipase Arterial Blood Glucose Arterial Blood Ionized Calcium Urine WBC (Auto) Salicylates Acetaminophen Coronavirus (PCR) 03/09/21 03/10/21 03/10/21 23:21 04:38 05:25 WBC RBC Hgb 8.6 L Hct 26.0 L MCV MCH RDW Seg Neutrophils % Monocytes % (Manual) Seg Neutrophils # Monocytes # (Manual) PT INR D-Dimer Heparin Anti-Xa Level ABG pH POC ABG pCO2 POC ABG pO2 ABG Hemoglobin ABG Oxyhemoglobin ABG Sodium ABG Potassium ABG Chloride ABG Glucose Carboxyhemoglobin Sodium Potassium Chloride Carbon Dioxide BUN Creatinine Glucose POC Glucose 306 H 310 H Lactic Acid Calcium Phosphorus Magnesium Ferritin Total Bilirubin Direct Bilirubin AST ALT Alkaline Phosphatase Ammonia Lactate Dehydrogenase Troponin T C-Reactive Protein Total Protein Albumin Triglycerides Cholesterol HDL Cholesterol Lipase Arterial Blood Glucose Arterial Blood Ionized Calcium Urine WBC (Auto) Salicylates Acetaminophen Coronavirus (PCR) 03/10/21 03/10/21 03/10/21 05:25 12:33 12:52 WBC RBC Hgb Hct MCV MCH RDW Seg Neutrophils % Monocytes % (Manual) Seg Neutrophils # Monocytes # (Manual) PT INR D-Dimer Heparin Anti-Xa Level ABG pH 7.487 H POC ABG pCO2 POC ABG pO2 62.1 L ABG Hemoglobin 9.4 L ABG Oxyhemoglobin 89.7 L ABG Sodium ABG Potassium ABG Chloride ABG Glucose 350 H Carboxyhemoglobin 0.2 L Sodium Potassium Chloride Carbon Dioxide 32 H BUN 45 H Creatinine Glucose 341 H POC Glucose 340 H Lactic Acid Calcium Phosphorus Magnesium Ferritin Total Bilirubin Direct Bilirubin AST ALT Alkaline Phosphatase Ammonia Lactate Dehydrogenase Troponin T C-Reactive Protein Total Protein Albumin Triglycerides Cholesterol HDL Cholesterol Lipase Arterial Blood Glucose 350 H Arterial Blood Ionized Calcium Urine WBC (Auto) Salicylates Acetaminophen Coronavirus (PCR) 03/10/21 03/10/21 03/11/21 17:05 22:57 04:58 WBC RBC Hgb Hct MCV MCH RDW Seg Neutrophils % Monocytes % (Manual) Seg Neutrophils # Monocytes # (Manual) PT INR D-Dimer Heparin Anti-Xa Level ABG pH POC ABG pCO2 POC ABG pO2 ABG Hemoglobin ABG Oxyhemoglobin ABG Sodium ABG Potassium ABG Chloride ABG Glucose Carboxyhemoglobin Sodium Potassium Chloride Carbon Dioxide BUN Creatinine Glucose POC Glucose 298 H 241 H 261 H Lactic Acid Calcium Phosphorus Magnesium Ferritin Total Bilirubin Direct Bilirubin AST ALT Alkaline Phosphatase Ammonia Lactate Dehydrogenase Troponin T C-Reactive Protein Total Protein Albumin Triglycerides Cholesterol HDL Cholesterol Lipase Arterial Blood Glucose Arterial Blood Ionized Calcium Urine WBC (Auto) Salicylates Acetaminophen Coronavirus (PCR) 03/11/21 03/11/21 03/11/21 06:54 06:54 06:54 WBC RBC Hgb Hct MCV MCH RDW Seg Neutrophils % Monocytes % (Manual) Seg Neutrophils # Monocytes # (Manual) PT INR D-Dimer 238.43 H Heparin Anti-Xa Level ABG pH POC ABG pCO2 POC ABG pO2 ABG Hemoglobin ABG Oxyhemoglobin ABG Sodium ABG Potassium ABG Chloride ABG Glucose Carboxyhemoglobin Sodium 146 H Potassium Chloride Carbon Dioxide 31 H BUN 41 H Creatinine Glucose 255 H POC Glucose Lactic Acid Calcium Phosphorus Magnesium Ferritin 3346.0 H Total Bilirubin Direct Bilirubin AST ALT Alkaline Phosphatase Ammonia Lactate Dehydrogenase 557 H Troponin T C-Reactive Protein 4.70 H Total Protein Albumin Triglycerides Cholesterol HDL Cholesterol Lipase Arterial Blood Glucose Arterial Blood Ionized Calcium Urine WBC (Auto) Salicylates Acetaminophen Coronavirus (PCR) 03/11/21 03/11/21 03/11/21 06:54 11:25 17:41 WBC RBC 2.76 L Hgb 8.9 L Hct 27.0 L MCV 98 H MCH RDW 18.3 H Seg Neutrophils % Monocytes % (Manual) Seg Neutrophils # Monocytes # (Manual) PT INR D-Dimer Heparin Anti-Xa Level ABG pH POC ABG pCO2 POC ABG pO2 ABG Hemoglobin ABG Oxyhemoglobin ABG Sodium ABG Potassium ABG Chloride ABG Glucose Carboxyhemoglobin Sodium Potassium Chloride Carbon Dioxide BUN Creatinine Glucose POC Glucose 255 H 292 H Lactic Acid Calcium Phosphorus Magnesium Ferritin Total Bilirubin Direct Bilirubin AST ALT Alkaline Phosphatase Ammonia Lactate Dehydrogenase Troponin T C-Reactive Protein Total Protein Albumin Triglycerides Cholesterol HDL Cholesterol Lipase Arterial Blood Glucose Arterial Blood Ionized Calcium Urine WBC (Auto) Salicylates Acetaminophen Coronavirus (PCR) 03/11/21 03/12/21 03/12/21 23:26 04:44 05:16 WBC RBC Hgb Hct MCV MCH RDW Seg Neutrophils % Monocytes % (Manual) Seg Neutrophils # Monocytes # (Manual) PT INR D-Dimer Heparin Anti-Xa Level ABG pH POC ABG pCO2 POC ABG pO2 ABG Hemoglobin ABG Oxyhemoglobin ABG Sodium ABG Potassium ABG Chloride ABG Glucose Carboxyhemoglobin Sodium Potassium Chloride Carbon Dioxide BUN Creatinine Glucose POC Glucose 289 H 255 H Lactic Acid Calcium Phosphorus Magnesium Ferritin Total Bilirubin Direct Bilirubin AST ALT Alkaline Phosphatase Ammonia Lactate Dehydrogenase Troponin T 0.149 H* C-Reactive Protein Total Protein Albumin Triglycerides Cholesterol HDL Cholesterol Lipase Arterial Blood Glucose Arterial Blood Ionized Calcium Urine WBC (Auto) Salicylates Acetaminophen Coronavirus (PCR) 03/12/21 03/12/21 03/12/21 12:02 15:00 17:28 WBC RBC Hgb Hct MCV MCH RDW Seg Neutrophils % Monocytes % (Manual) Seg Neutrophils # Monocytes # (Manual) PT INR D-Dimer Heparin Anti-Xa Level ABG pH POC ABG pCO2 POC ABG pO2 ABG Hemoglobin ABG Oxyhemoglobin ABG Sodium ABG Potassium ABG Chloride ABG Glucose Carboxyhemoglobin Sodium Potassium 3.2 L Chloride Carbon Dioxide BUN 39 H Creatinine 0.7 L Glucose 258 H POC Glucose 237 H 257 H Lactic Acid Calcium 8.3 L Phosphorus Magnesium Ferritin Total Bilirubin 2.20 H Direct Bilirubin AST 181 H ALT 129 H Alkaline Phosphatase 541 H Ammonia Lactate Dehydrogenase Troponin T C-Reactive Protein Total Protein 5.0 L Albumin 2.0 L Triglycerides Cholesterol HDL Cholesterol Lipase Arterial Blood Glucose Arterial Blood Ionized Calcium Urine WBC (Auto) Salicylates Acetaminophen Coronavirus (PCR) 03/12/21 03/12/21 03/13/21 21:51 23:15 05:44 WBC RBC Hgb Hct MCV MCH RDW Seg Neutrophils % Monocytes % (Manual) Seg Neutrophils # Monocytes # (Manual) PT INR D-Dimer Heparin Anti-Xa Level ABG pH POC ABG pCO2 POC ABG pO2 ABG Hemoglobin ABG Oxyhemoglobin ABG Sodium ABG Potassium ABG Chloride ABG Glucose Carboxyhemoglobin Sodium Potassium Chloride Carbon Dioxide BUN Creatinine Glucose POC Glucose 253 H 287 H 247 H Lactic Acid Calcium Phosphorus Magnesium Ferritin Total Bilirubin Direct Bilirubin AST ALT Alkaline Phosphatase Ammonia Lactate Dehydrogenase Troponin T C-Reactive Protein Total Protein Albumin Triglycerides Cholesterol HDL Cholesterol Lipase Arterial Blood Glucose Arterial Blood Ionized Calcium Urine WBC (Auto) Salicylates Acetaminophen Coronavirus (PCR) 03/13/21 03/13/21 03/14/21 17:03 23:31 03:40 WBC RBC Hgb Hct MCV MCH RDW Seg Neutrophils % Monocytes % (Manual) Seg Neutrophils # Monocytes # (Manual) PT INR D-Dimer 475.91 H Heparin Anti-Xa Level ABG pH POC ABG pCO2 POC ABG pO2 ABG Hemoglobin ABG Oxyhemoglobin ABG Sodium ABG Potassium ABG Chloride ABG Glucose Carboxyhemoglobin Sodium Potassium Chloride Carbon Dioxide BUN Creatinine Glucose POC Glucose 228 H 275 H Lactic Acid Calcium Phosphorus Magnesium Ferritin Total Bilirubin Direct Bilirubin AST ALT Alkaline Phosphatase Ammonia Lactate Dehydrogenase Troponin T C-Reactive Protein Total Protein Albumin Triglycerides Cholesterol HDL Cholesterol Lipase Arterial Blood Glucose Arterial Blood Ionized Calcium Urine WBC (Auto) Salicylates Acetaminophen Coronavirus (PCR) 03/14/21 03/14/21 03/14/21 03:40 03:40 03:40 WBC RBC 2.25 L Hgb 7.4 L Hct 22.2 L MCV 99 H MCH 33 H RDW 18.5 H Seg Neutrophils % Monocytes % (Manual) Seg Neutrophils # Monocytes # (Manual) PT INR D-Dimer Heparin Anti-Xa Level ABG pH POC ABG pCO2 POC ABG pO2 ABG Hemoglobin ABG Oxyhemoglobin ABG Sodium ABG Potassium ABG Chloride ABG Glucose Carboxyhemoglobin Sodium Potassium 3.3 L Chloride Carbon Dioxide 37 H D BUN 24 H Creatinine 0.6 L Glucose 180 H POC Glucose Lactic Acid Calcium Phosphorus Magnesium Ferritin 3103.0 H Total Bilirubin 1.60 H Direct Bilirubin AST 283 H ALT 188 H Alkaline Phosphatase 619 H Ammonia Lactate Dehydrogenase 588 H Troponin T C-Reactive Protein 4.00 H Total Protein 4.8 L Albumin 2.2 L Triglycerides Cholesterol HDL Cholesterol Lipase Arterial Blood Glucose Arterial Blood Ionized Calcium Urine WBC (Auto) Salicylates Acetaminophen Coronavirus (PCR) 03/15/21 03/15/21 03/15/21 00:34 05:00 05:00 WBC RBC 2.40 L Hgb 7.8 L Hct 23.6 L MCV 99 H MCH 33 H RDW 18.3 H Seg Neutrophils % Monocytes % (Manual) Seg Neutrophils # Monocytes # (Manual) PT INR D-Dimer Heparin Anti-Xa Level ABG pH POC ABG pCO2 POC ABG pO2 ABG Hemoglobin ABG Oxyhemoglobin ABG Sodium ABG Potassium ABG Chloride ABG Glucose Carboxyhemoglobin Sodium Potassium Chloride Carbon Dioxide BUN Creatinine 0.6 L Glucose 238 H POC Glucose 287 H Lactic Acid Calcium 8.0 L Phosphorus Magnesium Ferritin Total Bilirubin 1.50 H Direct Bilirubin AST 189 H ALT 208 H Alkaline Phosphatase 659 H Ammonia Lactate Dehydrogenase Troponin T C-Reactive Protein Total Protein 5.1 L Albumin 2.1 L Triglycerides Cholesterol HDL Cholesterol Lipase Arterial Blood Glucose Arterial Blood Ionized Calcium Urine WBC (Auto) Salicylates Acetaminophen Coronavirus (PCR) 03/15/21 03/15/21 03/15/21 05:05 11:37 16:34 WBC RBC Hgb Hct MCV MCH RDW Seg Neutrophils % Monocytes % (Manual) Seg Neutrophils # Monocytes # (Manual) PT INR D-Dimer Heparin Anti-Xa Level ABG pH POC ABG pCO2 POC ABG pO2 ABG Hemoglobin ABG Oxyhemoglobin ABG Sodium ABG Potassium ABG Chloride ABG Glucose Carboxyhemoglobin Sodium Potassium Chloride Carbon Dioxide BUN Creatinine Glucose POC Glucose 238 H 236 H 280 H Lactic Acid Calcium Phosphorus Magnesium Ferritin Total Bilirubin Direct Bilirubin AST ALT Alkaline Phosphatase Ammonia Lactate Dehydrogenase Troponin T C-Reactive Protein Total Protein Albumin Triglycerides Cholesterol HDL Cholesterol Lipase Arterial Blood Glucose Arterial Blood Ionized Calcium Urine WBC (Auto) Salicylates Acetaminophen Coronavirus (PCR) 03/15/21 03/16/21 03/16/21 23:05 04:39 05:00 WBC RBC Hgb Hct MCV MCH RDW Seg Neutrophils % Monocytes % (Manual) Seg Neutrophils # Monocytes # (Manual) PT INR D-Dimer Heparin Anti-Xa Level ABG pH POC ABG pCO2 POC ABG pO2 ABG Hemoglobin ABG Oxyhemoglobin ABG Sodium ABG Potassium ABG Chloride ABG Glucose Carboxyhemoglobin Sodium Potassium Chloride Carbon Dioxide 33 H BUN Creatinine 0.5 L Glucose 195 H POC Glucose 336 H 205 H Lactic Acid Calcium Phosphorus Magnesium Ferritin Total Bilirubin Direct Bilirubin AST ALT Alkaline Phosphatase Ammonia Lactate Dehydrogenase Troponin T C-Reactive Protein Total Protein Albumin Triglycerides Cholesterol HDL Cholesterol Lipase Arterial Blood Glucose Arterial Blood Ionized Calcium Urine WBC (Auto) Salicylates Acetaminophen Coronavirus (PCR) 03/16/21 03/17/21 03/17/21 11:37 04:50 13:37 WBC RBC 2.52 L Hgb 8.6 L Hct 25.0 L MCV 99 H MCH 34 H RDW 18.1 H Seg Neutrophils % Monocytes % (Manual) Seg Neutrophils # Monocytes # (Manual) PT INR D-Dimer Heparin Anti-Xa Level ABG pH POC ABG pCO2 POC ABG pO2 ABG Hemoglobin ABG Oxyhemoglobin ABG Sodium ABG Potassium ABG Chloride ABG Glucose Carboxyhemoglobin Sodium Potassium Chloride Carbon Dioxide BUN Creatinine Glucose POC Glucose 222 H 113 H Lactic Acid Calcium Phosphorus Magnesium Ferritin Total Bilirubin Direct Bilirubin AST ALT Alkaline Phosphatase Ammonia Lactate Dehydrogenase Troponin T C-Reactive Protein Total Protein Albumin Triglycerides Cholesterol HDL Cholesterol Lipase Arterial Blood Glucose Arterial Blood Ionized Calcium Urine WBC (Auto) Salicylates Acetaminophen Coronavirus (PCR) 03/17/21 03/17/21 03/17/21 13:37 13:41 18:29 WBC RBC Hgb Hct MCV MCH RDW Seg Neutrophils % Monocytes % (Manual) Seg Neutrophils # Monocytes # (Manual) PT INR D-Dimer Heparin Anti-Xa Level ABG pH POC ABG pCO2 POC ABG pO2 ABG Hemoglobin ABG Oxyhemoglobin ABG Sodium ABG Potassium ABG Chloride ABG Glucose Carboxyhemoglobin Sodium Potassium 3.5 L Chloride Carbon Dioxide BUN Creatinine 0.4 L Glucose 174 H POC Glucose 176 H 180 H Lactic Acid Calcium Phosphorus Magnesium Ferritin Total Bilirubin Direct Bilirubin AST ALT Alkaline Phosphatase Ammonia Lactate Dehydrogenase Troponin T C-Reactive Protein Total Protein Albumin Triglycerides Cholesterol HDL Cholesterol Lipase Arterial Blood Glucose Arterial Blood Ionized Calcium Urine WBC (Auto) Salicylates Acetaminophen Coronavirus (PCR) Allied health notes reviewed: nursing
[2021-03-18] MEDS: ZOLPIDEM 5 MG TAB PO PRN (00:50)
[2021-03-18] MEDS: INSULIN REGULAR, HUMAN 100 UNITS/1 ML SUB-Q SCH ×3 (06:29→18:00)
[2021-03-18] MEDS: hydrALAZINE 25 MG TAB PO SCH ×3 (08:00→22:24)
[2021-03-18] MEDS: PREGABALIN 50 MG CAP PO SCH ×4 (08:00→22:25)
[2021-03-18 08:35] LABS: Hematocrit 24.5 % (35.5-45.6); Hemoglobin 7.9 gm/dl (11.8-15.2); Mean Corpuscular HGB Conc 32 % (32-34); Mean Corpuscular Volume 100 fl (84-94); Platelet Count 294 K/mm3 (140-440); Red Blood Count 2.46 M/mm3 (3.65-5.03)
[2021-03-18 08:52] LABS: Blood Urea Nitrogen 10 mg/dL (9-20); Calcium 8.3 mg/dL (8.4-10.2); Hemolysis Index 57
[2021-03-18 08:59] LABS: BUN/Creatinine Ratio 25
[2021-03-18] MEDS: SENNOSIDES/DOCUSATE SODIUM 8.6/50 MG TAB FEEDTUBE SCH ×3 (09:36→22:29)
[2021-03-18] MEDS: CHOLECALCIFEROL (VIT D3) 5,000 UNIT TAB PO SCH (09:37)
[2021-03-18] MEDS: FUROSEMIDE 40 MG TAB PO SCH (09:37)
[2021-03-18] MEDS: ASCORBIC ACID 500 MG TAB PO SCH ×3 (09:38→22:29)
[2021-03-18] MEDS: FAMOTIDINE 20 MG TAB PO SCH ×2 (09:38→22:16)
[2021-03-18] MEDS: ASPIRIN 81 MG TAB CHEW PO SCH (09:38)
[2021-03-18] MEDS: ZINC SULFATE 220 MG CAP PO SCH ×3 (09:38→22:28)
[2021-03-18] MEDS: guaiFENesin ER 600 MG TAB PO SCH ×3 (09:38→22:26)
[2021-03-18] MEDS: CALCIUM CARB/VIT D3/MINERALS 600 MG/800 UNITS TAB PO SCH ×3 (09:38→22:26)
[2021-03-18] MEDS: ENOXAPARIN 150 MG/1 ML INJ SUB-Q SCH ×3 (09:44→22:28)
--- NOTE | 2021-03-18 10:34 | Progress Note ---
Assessment and Plan SVT * Patient had SVT into 180s on 03/12/2021. Resolved after being given Adenosine 6mg IV. Patient was then started on Amio gtt * Patient has been transferred to [facility] floor over weekend was not on stopper maker. Ordered telemetry. Hypertension * Patient currently on labetolol 100mg BID, Hydralizine 25 mg TID HFpEF * Echo 12/13/2020 - EF 55-60%, otherwise technically difficult study. * Echo 05/2016 - LV mildly dilated, EF 55-60%, grade II diastolic dysfxn, RV mildly enlarged, normal RV sys fxn, LA mildly dilated, RA mildly dilated, mild-mod AR, mild CA, mild aortic root dilatation. COVID-19 PNA Acute hypoxic resporitary failure * Patient positive for COVID-19 * Pulmonology and infectious disease are following DVT of RLE * Patient on Enoxaparin 130mg SQ BID . Plan to transition to Coumadin once patient is hemodynamically stable * He was diagnosed with a LLE DVT in March 2020 and appears to have been on Coumadin as an outpatient. Ordered telemetry and trend Guru Patient seen in conjunction with Dr. Kim who agrees with this plan of care. Will continue to follow. - Patient Problems (1) ALPHONSO (acute kidney injury) Current Visit: Yes Status: Acute (2) Acute and chronic respiratory failure ([id number]) Current Visit: Yes Status: Acute (3) Acute deep vein thrombosis (DVT) of right lower extremity Current Visit: Yes Status: Acute (4) Encephalopathy Current Visit: Yes Status: Acute (5) NSTEMI (non-ST elevated myocardial infarction) Current Visit: Yes Status: Acute (6) Transaminitis Current Visit: Yes Status: Acute (7) COPD (chronic obstructive pulmonary disease) Current Visit: Yes Status: Chronic (8) Chronic heart failure with preserved ejection fraction (HFpEF) Current Visit: Yes Status: Chronic (9) DM2 (diabetes mellitus, type 2) Current Visit: Yes Status: Chronic (10) H/O: HTN (hypertension) Current Visit: Yes Status: Chronic (11) History of pulmonary embolus (PE) Current Visit: Yes Status: Chronic (12) COVID-19 Current Visit: Yes Status: Acute Subjective Date of service: 03/18/21 Principal diagnosis: Ac hypoxemic resp failure; NSTEMI; ALPHONSO; Sepsis; PNA; CHF; DM II; AMS Interval history: Patient sitting in bed with no cardiac complaints. Patient transferred to [facility] Patient not on monitor Objective Last Vital Signs Temp 98.4 F 03/18/21 05:35 Pulse 91 H 03/18/21 05:35 Resp 20 03/18/21 05:35 BP 116/71 03/18/21 05:35 Pulse Ox 96 03/18/21 05:35 - Physical Examination General: No Apparent Distress HEENT: Positive: PERRL, Normocephaly Neck: Positive: trachea midline Cardiac: Positive: Reg Rate and Rhythm Lungs: Positive: Decreased Breath Sounds Neuro: Positive: Grossly Intact Abdomen: Positive: Soft Skin: Negative: Rash Incision: Cardiac Cath Site Musculoskeletal: No Fluid Collection Extremities: Present: upper extr. pulses, lower extr. pulses, edema, warm, Other (anasarca) - Labs and Meds CBC 03/17/21 03/18/21 Range/Units 13:37 07:53 WBC 9.8 8.6 (4.5-11.0) K/mm3 RBC 2.52 L 2.46 L (3.65-5.03) M/mm3 Hgb 8.6 L 7.9 L (11.8-15.2) gm/dl Hct 25.0 L 24.5 L (35.5-45.6) % Plt Count 307 294 (140-440) K/mm3 Comprehensive Metabolic Panel 03/17/21 03/18/21 Range/Units 13:37 07:53 Sodium 142 144 (137-145) mmol/L Potassium 3.5 L 3.6 (3.6-5.0) mmol/L Chloride 101.8 103.1 (98-107) mmol/L Carbon Dioxide 30 31 H (22-30) mmol/L BUN 12 10 (9-20) mg/dL Creatinine 0.4 L 0.4 L (0.8-1.3) mg/dL Glucose 174 H 98 (75-100) mg/dL Calcium 8.5 8.3 L (8.4-10.2) mg/dL - Imaging and Cardiology EKG: report reviewed, image reviewed Echo: report reviewed (12/2020 - EF 55-60%) Cardiac cath: pending - EKG Sinus rhythms and dysrhythmias: sinus rhythm AV and intraventricular conduction: right bundle branch block - Allied health notes Allied health notes reviewed: nursing
--- NOTE | 2021-03-18 12:00 | Progress Note ---
Assessment and Plan Assessment and plan: This is a a 51 year old male admitted for for severe sepsis, respiratory failure, pneumonia and ALPHONSO. PMH: COPD, CHF, DM, DVT/PE, HTN, KAM, obesity, asthma PSx: none reported home meds: albuterol sulfate, advair, HCTZ, atrovent, glucophage, Klor-Con, midodrine, metoprolol, lasix, lantus, coumadin (from audit and home meds reconciliation) Social: unknown A/P Neuro: Metabolic encephalopathy -Resolving -Now extbated Cardio: SR/ST: Acute on Chronic HFpEF (per cards), NSTEMI, h/o HTN, HLD, Prolonged QTc, SVT -Cardiology consulted, appreciate recommendations -midodrine d/c r/t HTN -BP monitoring per protocol -Labetalol PO -Per cardiology: 1. gentle IV diuresis when able 2. Echo 12/13/2020 - EF 55-60%, otherwise technically difficult study. Echo 05/2016 - LV mildly dilated, EF 55-60%, grade II diastolic dysfxn, RV mildly enlarged, normal RV sys fxn, LA mildly dilated, RA mildly dilated, mild-mod AR, mild OH, mild aortic root dilatation. Resp: Acute on chronic hypoxic respiratory failure, Bilateral PNA, hx COPD, KAM, asthma, ?PE -CCM consulted, appreciate recommendations -MV, wean as tolerated -Intubated 03/01, tube exchange 03/09 OETT 8/0 @ 25 lip -nOW EXTUBATED 03/10 -Continuos SPO2 monitoring -abx with levaquin (03/02-03/07)-DC 03/05 r/t prolonged QTc -03/01 CT chest shows several pulmonary nodules within Right lung measuring 6-8 mm, increased interstitial prominence -? f/u outpt with PCP/pulmanology -03/10 CXR reviewed GI: Transaminitis, TF -GI consulted, appreciate recommendations -Trend LFTs -RUQ US shows no evidence of cholelithiasis, cholecytitis or choledocholithisis -CT abd/pelvis showed fatty infiltration of liver -Ntr consult for TF -PPI -BR [place] -last BM 03/06 -24 hr net (-) 225 : ALPHONSO (stable/resolved) -Nephrology consulted, appreciate recommendations -Pt was on HD at recent hospitalization at OSH -Renally dose mediations -Avoid nephrotoxic medications -Strict I&Os -Renal US shows no significant abnormality -Daily weights -Replete electrolytes -Trend BMP -s/p lasix x 2, prn hydral -Trial lasix again today Heme: DVT-R posterior tibial vein, h/o LLE DVT (December 2019)/ PE (failed Xa inhibitors per cards; on home coumadin) -evidenced on BLE Doppler US -Heparin gtt d/c to lovenox subq (03/09) -SCDs while in bed -Per cards: Eventually plan to transition to Coumadin ID: Severe Sepsis, B PNA, COVID 19 infection -s/p abx therapy (azithromycin 03/01-03/02, aztreonam 03/02, cefepime 03/01-03/02, levaquin 03/02-03/05, flagyl 03/01-03/02, vancomycin 03/01-03/02) -VAP bundle -MRSA (+) nares -COVID 19 PCR (+) -Decadron for 10 days (03/06-03/15) -Remdesivir (03/06-03/10) -Contact/Droplet precautions -03/01 BCx2 with NGTD, UC with NGTD, sputum culture normal sole -03/06 BC NGTD -Prone if needed -Vit C/D/Zinc Endo: DM -SSI, lantus (titrate as needed) -Accuchecks q6 -Avoid hypoglycemia FEN: Hypokalemia, Hypomagenesmia- Replace lines: condom cath, PIV, RADHA Disposition: ICU Full code The high probability of a clinically significant, sudden or life threatening deterioration of the [multi] system(s) required my full and direct attention, intervention and personal management. The aggregate critical care time was [40] minutes. This time is in addition to time spent performing reported procedures but includes the following: [x] Data Review and interpretation [x] Patient assessment and monitoring of vital signs [x] Documentation [x] Medication orders and management History Interval history: This is a 51-year-old -[place] male with COPD with chronic respiratory failure, CHFpEF, diabetes mellitus, DVT/PE on coumadin and hypertension who p resented to [facility] via EMS for AMS and hypoxia. On arrival of EMS oxygen saturation was about 88% on room air, blood pressure was said to be about 88/50 mmHg. Work-up in the emergency room reveals leukocytosis of 12.7, hemoglobin of 9.1 and hematocrit of 27.7, sodium of 132, lactic acid of 2.90, elevated liver enzymes and elevated troponin at 0.493. A CT of the chest showed findings concerning for atelectasis and or infiltrate, CT of the head was unremarkable. Patient was in severe respiratory distress upon arrival in the emergency room and subsequently intubated. Patient was admitted to the hospitalist service with consults to cardiology, CCM, GI, and neprohology for severe sepsis, respiratory failure, pneumonia and ALPHONSO. Of note patient was admitted to [facility] from 12/12-01/14 and was on HD during that admit. 03/03/21: Patient remains intubated, continue on heparin drip, monitor H&H and BMP. Continue empiric antibiotics, ID following. Follow ammonia level and LFT. According to cardiology patient indeed had preserved EF during his recent admission to [facility]. Plan to repeat 2D echo. Critical care following, wean off from vent as tolerated. 03/04: RN reported blood y secretions in OETT and clots, heparin gtt stopped and B LE US obtained which shows DVT, abx deescalated, heparin gtt restarted. 03/05: RN reported vomiting x1, promithazine x1 given, Qtc at 599 on EKG. AM labs pending. tmax 102.2, reculture with next spike, COVID 19 PCR. abx stopped re prolonged qtc and received CAP coverage. 03/06: Reported high TF residual, COVID PCR pending. Cr better today. tmax 100.7 03/07: radha placed yesterday, started on remdesivir re positive covid. ID consulted yesterday. SHERYL overnight. 03/08: SHERYL reported overnight. Patient is now hypertensive and midodrine has been held. Will now place on low dose antihtn and prn hydral. 03/09: Patient reportedly through tube and OETT was exchanged, patient was given paralytic for exchange. No acute events reported overnight. Patient noted to be hypertensive and we will trial Lasix again today. 03/10: PSV trial today. fentayl was stopped. BP maintaining. SHERYL overnight. 03/11: Patient was extuabted, awaiting Speech therapy, discussed with nursing staff at bedside, considering Hypertensive urgency, will do a bedside swallow eval and give oral meds if passed. Continue aspiration precautions. The patient has hx of Asthma, continue neb treatment. 03/12: Patient remains in ICU care secondary to SVT and unstable hemodynamics. Cardiology reevaluated patient was given adenosine and started on amnio drip. Still awaiting speech therapy evaluation although considering her current condition we will keep the patient n.p.o. Case discussed with gate agent and online communications manager. Monitor electrolytes and correct as needed. 03/13: Patient this morning remains in normal sinus rhythm following the adenosine and amnio drip which is still going the latter I mean. I will start the patient on Lasix for 3 days and monitor her renal function. Patient is already on high dose of dexamethasone considering his history of bronchospasm disease. We will repeat a pulmonary evaluation we will correct electrolytes especially with the Lasix. CCT 35 pLAN DISCUSSED WITH THE PATIENT AND NURSE 03/14: Patient unfortunately is declining continues on high flow -70% intermittent altered mental status refusing all treatment plan. Psych saw the patient recommended Geodon as needed. Will transition some medications to IV. Continue encouraging patient to use BiPAP. Continue nebulizer treatment and steroid therapy. Pulmonary and cardiology input also appreciated. 03/15: Patient seen and examined, continue to wean oxygen flow as tolerated, Electrolytes replacement protocol inplace, LFT still elevated but trending down some. Again counselling provided to the patient about compliance. Adjust insulin. 03/16: Patient down to 50% FiO2 was saturating 92%. Will transfer to [facility]. Clinically he is showing some improvement. Continue restraints for supportive care continue to monitor for intermittent delirium. 03/17: Patient still with intermittent delirium sometimes refusing medication. Restraints has been renewed for safety as he did take off his oxygen yesterday and desatted to the 70s. His saturation is back to 90-92% with FiO2 of 50% of the high flow. Continue supportive care pulmonary input and ID input noted. 03/18: Continue full supportive care, ideally prone if able, called to update family, continue supportive care, patient treated with -IV/PO Dexamethasone 10 mg daily x 10 days, higher dose due to morbid obesity. Ended 03/15/2021 -Completed Remdesivir still high risk due to hypoxia treatment being complicated by the delirium The high probability of a clinically significant, sudden or life threatening deterioration of the [pulmonary, neuro, cardiac] system(s) required my full and direct attention, intervention and personal management. The aggregate critical care time was [35] minutes. This time is in addition to time spent performing reported procedures but includes the following: [x] Data Review and interpretation [x] Patient assessment and monitoring of vital signs [x] Documentation [x] Medication orders and management History Interval history: Patient seen and examined, seen and examined this morning. still with intermittent delirium as evident by continuously removing his oxygen and insisting he is fine, prompting the continued restriants. Otherwise oxygen saturation stable on the 50% FIO2. Hospitalist Physical - Physical exam Narrative exam: General appearance: Present: no acute distress, well-nourished, obese, generalized anasarca although improving - EENT Eyes: Present: PERRL, EOM intact ENT: clear oral mucosa - Neck Neck: Present: normal ROM - Respiratory Respiratory effort: normal Respiratory: bilateral: diminished - Cardiovascular Rhythm: regular Heart Sounds: Present: S1 & S2. Absent: systolic murmur, diastolic murmur - Extremities Extremities: no ischemia, pulses intact, pulses symmetrical, NOTED pitting edema, normal temperature, normal color - Abdominal General gastrointestinal: soft, non-tender, non-distended, normal bowel sounds - Integumentary Integumentary: Present: clear, warm, dry- see full documentation of skin exam in nursing assessment - Psychiatric Psychiatric: cooperative some times. - Neurologic Neurologic: moves all extremities - Allied Health Allied health notes reviewed: nursing, RT - Constitutional Vitals: Temp Pulse Resp BP Pulse Ox 98.4 F 91 H 20 116/71 96 03/18/21 05:35 03/18/21 05:35 03/18/21 05:35 03/18/21 05:35 03/18/21 05:35 General appearance: Present: no acute distress, well-nourished, obese, other (sedated) HEART Score - HEART Score Troponin: Troponin T 0.149 ng/mL (0.00-0.029) H* 03/12/21 04:44 Results - Labs CBC & Chem 7: 03/18/21 07:53 03/18/21 07:53 Labs: Laboratory Last Values WBC 8.6 K/mm3 (4.5-11.0) 03/18/21 07:53 RBC 2.46 M/mm3 (3.65-5.03) L 03/18/21 07:53 Hgb 7.9 gm/dl (11.8-15.2) L 03/18/21 07:53 Hct 24.5 % (35.5-45.6) L 03/18/21 07:53 MCV 100 fl (84-94) H 03/18/21 07:53 MCH 32 pg (28-32) 03/18/21 07:53 MCHC 32 % (32-34) 03/18/21 07:53 RDW 18.0 % (13.2-15.2) H 03/18/21 07:53 Plt Count 294 K/mm3 (140-440) 03/18/21 07:53 Lymph % (Auto) 22.4 % (13.4-35.0) 03/06/21 05:20 [place] % (Auto) 4.5 % (0.0-7.3) 03/06/21 05:20 Eos % (Auto) 0.2 % (0.0-4.3) 03/06/21 05:20 Baso % (Auto) 0.3 % (0.0-1.8) 03/06/21 05:20 Lymph # (Auto) 3.4 K/mm3 (1.2-5.4) 03/06/21 05:20 [place] # (Auto) 0.7 K/mm3 (0.0-0.8) 03/06/21 05:20 Eos # (Auto) 0.0 K/mm3 (0.0-0.4) 03/06/21 05:20 Baso # (Auto) 0.1 K/mm3 (0.0-0.1) 03/06/21 05:20 Add Manual Diff Complete 03/01/21 19:21 Total Counted 100 03/01/21 19:21 Seg Neutrophils % 72.6 % (40.0-70.0) H 03/06/21 05:20 Seg Neuts % (Manual) 49.0 % (40.0-70.0) 03/01/21 19:21 Lymphocytes % (Manual) 32.0 % (13.4-35.0) 03/01/21 19:21 Monocytes % (Manual) 17.0 % (0.0-7.3) H 03/01/21 19:21 Eosinophils % (Manual) 1.0 % (0.0-4.3) 03/01/21 19:21 Basophils % (Manual) 1.0 % (0.0-1.8) 03/01/21 19:21 Nucleated RBC % Not Reportable 03/01/21 19:21 Seg Neutrophils # 11.1 K/mm3 (1.8-7.7) H 03/06/21 05:20 Seg Neutrophils # Man 6.2 K/mm3 (1.8-7.7) 03/01/21 19:21 Band Neutrophils # 0.0 K/mm3 03/01/21 19:21 Lymphocytes # (Manual) 4.1 K/mm3 (1.2-5.4) 03/01/21 19:21 Abs React Lymphs (Man) 0.0 K/mm3 03/01/21 19:21 Monocytes # (Manual) 2.2 K/mm3 (0.0-0.8) H 03/01/21 19:21 Eosinophils # (Manual) 0.1 K/mm3 (0.0-0.4) 03/01/21 19:21 Basophils # (Manual) 0.1 K/mm3 (0.0-0.1) 03/01/21 19:21 Metamyelocytes # 0.0 K/mm3 03/01/21 19:21 Myelocytes # 0.0 K/mm3 03/01/21 19:21 Promyelocytes # 0.0 K/mm3 03/01/21 19:21 Blast Cells # 0.0 K/mm3 03/01/21 19:21 WBC Morphology Not Reportable 03/01/21 19:21 Hypersegmented Neuts Not Reportable 03/01/21 19:21 Hyposegmented Neuts Not Reportable 03/01/21 19:21 Hypogranular Neuts Not Reportable 03/01/21 19:21 Smudge Cells Not Reportable 03/01/21 19:21 Toxic Granulation Not Reportable 03/01/21 19:21 Toxic Vacuolation Not Reportable 03/01/21 19:21 Dohle Bodies Not Reportable 03/01/21 19:21 Pelger-Huet Anomaly Not Reportable 03/01/21 19:21 Katherine Rods Not Reportable 03/01/21 19:21 Platelet Estimate Not Reportable 03/01/21 19:21 Clumped Platelets Not Reportable 03/01/21 19:21 Plt Clumps, EDTA Not Reportable 03/01/21 19:21 Large Platelets Not Reportable 03/01/21 19:21 Giant Platelets Not Reportable 03/01/21 19:21 Platelet Satelliting Not Reportable 03/01/21 19:21 Plt Morphology Comment Not Reportable 03/01/21 19:21 RBC Morphology Not Reportable 03/01/21 19:21 Dimorphic RBCs Not Reportable 03/01/21 19:21 Polychromasia Not Reportable 03/01/21 19:21 Hypochromasia Not Reportable 03/01/21 19:21 Poikilocytosis Not Reportable 03/01/21 19:21 Anisocytosis Rare 03/01/21 19:21 Microcytosis Not Reportable 03/01/21 19:21 Macrocytosis Not Reportable 03/01/21 19:21 Spherocytes Not Reportable 03/01/21 19:21 Pappenheimer Bodies Not Reportable 03/01/21 19:21 Sickle Cells Not Reportable 03/01/21 19:21 Target Cells Not Reportable 03/01/21 19:21 Tear Drop Cells Not Reportable 03/01/21 19:21 Ovalocytes Not Reportable 03/01/21 19:21 Helmet Cells Not Reportable 03/01/21 19:21 [place] Bodies Not Reportable 03/01/21 19:21 [place] Rings Not Reportable 03/01/21 19:21 [place] Cells Not Reportable 03/01/21 19:21 Bite Cells Not Reportable 03/01/21 19:21 Crenated Cell Not Reportable 03/01/21 19:21 Elliptocytes Not Reportable 03/01/21 19:21 Acanthocytes (Spur) Not Reportable 03/01/21 19:21 Rouleaux Not Reportable 03/01/21 19:21 Hemoglobin C Crystals Not Reportable 03/01/21 19:21 Schistocytes Few 03/01/21 19:21 Malaria parasites Not Reportable 03/01/21 19:21 Henry Bodies Not Reportable 03/01/21 19:21 Hem Pathologist Commnt No 03/01/21 19:21 PT 15.6 Sec. (12.2-14.9) H 03/04/21 10:17 INR 1.18 (0.87-1.13) H 03/04/21 10:17 APTT 36.6 Sec. (24.2-36.6) 03/02/21 16:28 D-Dimer 475.91 ng/mlDDU (0-234) H 03/14/21 03:40 Heparin Anti-Xa Level 0.64 U.I./ml (0.3-0.7) 03/08/21 10:30 ABG pH 7.487 (7.320-7.450) H 03/10/21 12:33 POC ABG pCO2 40.4 mmHg (32.0-48.0) 03/10/21 12:33 POC ABG pO2 62.1 mmHg (83-108) L 03/10/21 12:33 POC ABG HCO3 29.9 03/10/21 12:33 ABG O2 Saturation 90.2 (0-100) 03/10/21 12:33 POC ABG Base Excess 6.0 03/10/21 12:33 ABG Hemoglobin 9.4 (12.0-17.5) L 03/10/21 12:33 ABG Oxyhemoglobin 89.7 (94-98) L 03/10/21 12:33 ABG Methemoglobin 0.3 (0.0-1.5) 03/10/21 12:33 ABG Sodium 138.7 mmol/L (136.0-145.0) 03/10/21 12:33 ABG Potassium 3.7 mmol/L (3.40-4.50) 03/10/21 12:33 ABG Chloride 104.0 mmol/L (98-107) 03/10/21 12:33 ABG Glucose 350 mg/dL (65-95) H 03/10/21 12:33 Carboxyhemoglobin 0.2 (0.5-1.5) L 03/10/21 12:33 FiO2 % 35.0 03/10/21 12:33 Sodium 144 mmol/L (137-145) 03/18/21 07:53 Potassium 3.6 mmol/L (3.6-5.0) 03/18/21 07:53 Chloride 103.1 mmol/L (98-107) 03/18/21 07:53 Carbon Dioxide 31 mmol/L (22-30) H 03/18/21 07:53 Anion Gap 14 mmol/L 03/18/21 07:53 BUN 10 mg/dL (9-20) 03/18/21 07:53 Creatinine 0.4 mg/dL (0.8-1.3) L 03/18/21 07:53 Estimated GFR > 60 ml/min 03/18/21 07:53 BUN/Creatinine Ratio 25 % 03/18/21 07:53 Glucose 98 mg/dL (75-100) 03/18/21 07:53 POC Glucose 158 mg/dL (70-105) H 03/18/21 11:43 Lactic Acid 1.70 mmol/L (0.7-2.0) 03/04/21 10:17 Calcium 8.3 mg/dL (8.4-10.2) L 03/18/21 07:53 Phosphorus 2.60 mg/dL (2.5-4.5) 03/16/21 05:00 Magnesium 1.80 mg/dL (1.7-2.3) 03/16/21 05:00 Ferritin 3103.0 ng/mL (30.0-300.0) H 03/14/21 03:40 Total Bilirubin 1.50 mg/dL (0.1-1.2) H 03/15/21 05:00 Direct Bilirubin 0.6 mg/dL (0-0.2) H 03/04/21 05:26 Indirect Bilirubin 0.2 mg/dL 03/04/21 05:26 AST 189 units/L (5-40) H 03/15/21 05:00 ALT 208 units/L (7-56) H 03/15/21 05:00 Alkaline Phosphatase 659 units/L (35-129) H 03/15/21 05:00 Ammonia 71.0 umol/L (25-60) H 03/01/21 19:21 Lactate Dehydrogenase 588 units/L (91-180) H 03/14/21 03:40 Troponin T 0.149 ng/mL (0.00-0.029) H* 03/12/21 04:44 C-Reactive Protein 4.00 mg/dL (0.00-1.30) H 03/14/21 03:40 Total Protein 5.1 g/dL (6.3-8.2) L 03/15/21 05:00 Albumin 2.1 g/dL (3.9-5) L 03/15/21 05:00 Albumin/Globulin Ratio 0.7 % 03/15/21 05:00 Triglycerides 400 mg/dL (2-149) H 03/01/21 19: Cholesterol 232 mg/dL (50-199) H 03/01/21 19:21 LDL Cholesterol Direct 130 mg/dL (50-130) 03/01/21 19:21 HDL Cholesterol 22 mg/dL (40-59) L 03/01/21 19:21 Cholesterol/HDL Ratio 10.54 % 03/01/21 19: Lipase 78 units/L (13-60) H 03/04/21 10:17 Procalcitonin 1.18 ng/mL (<0.15) 03/08/21 06:10 TSH 1.840 mlU/mL (0.270-4.200) 03/03/21 04:06 Arterial Blood Glucose 350 mg/dL (65-95) H 03/10/21 12:33 Arterial Blood Ionized Calcium 4.6 mg/dL (4.6-5.3) 03/10/21 12:33 Urine Color [place] (Yellow) 03/06/21 14:34 Urine Turbidity Cloudy (Clear) 03/06/21 14:34 Urine pH 5.0 (5.0-7.0) 03/06/21 14:34 Ur Specific [place] 1.014 (1.003-1.030) 03/06/21 14:34 Urine Protein 30 mg/dl mg/dL (Negative) 03/06/21 14:34 Urine Glucose (UA) Neg mg/dL (Negative) 03/06/21 14:34 Urine Ketones Neg mg/dL (Negative) 03/06/21 14:34 Urine Blood Sm (Negative) 03/06/21 14:34 Urine Nitrite Neg (Negative) 03/06/21 14:34 Urine Bilirubin Neg (Negative) 03/06/21 14:34 Urine Urobilinogen 4.0 mg/dL (<2.0) 03/06/21 14:34 Ur Leukocyte Esterase Neg (Negative) 03/06/21 14:34 Urine WBC (Auto) 103.0 /HPF (0.0-6.0) H 03/06/21 14:34 Urine RBC (Auto) 105.0 /HPF (0.0-6.0) 03/06/21 14:34 U Epithel Cells (Auto) 5.0 /HPF (0-13.0) 03/06/21 14:34 Urine Bacteria (Auto) 2+ /HPF (Negative) 03/06/21 14:34 Hyaline Casts 5 /LPF 03/06/21 14:34 Urine Mucus 1+ /HPF 03/06/21 14:34 Urine Yeast (Budding) Few /HPF 03/01/21 21:40 Urine Sperm 3+ /HPF (LEARNING DEVELOPER) 03/06/21 14:34 Nasal Screen MRSA (PCR) Positive (Negative) 03/02/21 05:00 Salicylates < 0.3 mg/dL (2.8-20.0) L 03/01/21 19:21 Urine Opiates Screen Positive 03/01/21 21:40 Urine Methadone Screen Negative 03/01/21 21:40 Acetaminophen 5.0 ug/mL (10.0-30.0) L 03/01/21 19:21 Ur Barbiturates Screen Negative 03/01/21 21:40 Ur Phencyclidine Scrn Negative 03/01/21 21:40 Ur Amphetamines Screen Negative 03/01/21 21:40 U Benzodiazepines Scrn Negative 03/01/21 21:40 Urine Cocaine Screen Negative 03/01/21 21:40 U Marijuana (THC) Screen Negative 03/01/21 21:40 Drugs of Abuse Note Disclamer 03/01/21 21:40 KARLA Screen Negative (Negative) 03/03/21 04:06 Coronavirus (PCR) Positive (Negative) A 03/05/21 Unknown Blood Type O POSITIVE 03/01/21 19:21 Antibody Screen Negative 03/01/21 19:21 Vilchis/IV: Voiding Method Incontinent Active Medications - Current Medications Current Medications: Generic Name Dose Route Start Last Admin Trade Name Freq PRN Reason Stop Dose Admin Acetaminophen 650 mg 03/06/21 10:00 03/06/21 12:33 Acetaminophen 325 Mg/10.15 Ml Oral Liqd Unit Dose FEEDTUBE 650 mg Q6H PRN Administration Pain MILD(1-3)/Fever >100.5/VALDES Albuterol 2.5 mg 03/02/21 15:45 03/11/21 23:05 Albuterol 2.5 Mg/3 Ml Nebu IH 2.5 mg Q4H PRN Administration Shortness Of Breath Lipase/Protease/Amylase 1 each 03/03/21 10:53 Lipase 10,500/Protease 25,000/Amylase 43,750 (Units) Dr Gutierrez FEEDTUBE PRN PRN For Clogged Feeding Tube Ascorbic Acid 500 mg 03/06/21 22:00 03/18/21 09:38 Ascorbic Acid 500 Mg Tab PO 500 mg BID KYLE Administration Aspirin 81 mg 03/04/21 10:00 03/18/21 09:38 Aspirin 81 Mg Tab Chew PO 81 mg QDAY KYLE Administration Cholecalciferol 5,000 unit 03/17/21 11:00 03/18/21 09:37 Cholecalciferol (Vit D3) 5,000 Unit Tab PO 5,000 unit QDAY KYLE Administration Clonazepam 0.5 mg 03/16/21 12:43 Clonazepam 0.5 Mg Tab PO BID PRN Anxiety Dextrose 50 ml 03/02/21 11:38 Dextrose 50% In Water (25gm) 50 Ml Syringe IV Q30MIN PRN Hypoglycemia Protocol Enoxaparin Sodium 130 mg 03/09/21 11:00 03/18/21 09:44 Enoxaparin 150 Mg/1 Ml Inj SUB-Q 130 mg Q12HR KYLE Administration Protocol Famotidine 20 mg 03/04/21 10:00 03/18/21 09:38 Famotidine 20 Mg Tab PO 20 mg BID KYLE Administration Furosemide 80 mg 03/17/21 11:00 03/18/21 09:37 Furosemide 40 Mg Tab PO 80 mg QDAY KYLE Administration Guaifenesin 600 mg 03/11/21 22:00 03/18/21 09:38 Guaifenesin Er 600 Mg Tab PO 600 mg BID KYLE Administration Hydralazine HCl 10 mg 03/09/21 08:21 03/11/21 22:03 Hydralazine 20 Mg/1 Ml Inj IV 10 mg Q4H PRN Administration Hypertension Hydralazine HCl 25 mg 03/11/21 14:00 03/18/21 08:00 Hydralazine 25 Mg Tab PO 25 mg TID KYLE Administration Hydrophilic Ointment 1 applic 03/02/21 15:42 Lip Therapy Vaseline TP Q2H PRN Dry Lips Sodium Chloride 1,000 mls @ 1 mls/hr 03/06/21 18:11 Nacl 0.9% 500 Ml IV DIRECT PRN ARTERIAL LINE FLUSH Insulin Glargine 30 units 03/16/21 22:00 03/17/21 23:18 Insulin Glargine 100 Units/Ml SUB-Q 30 units QHS KYLE Administration Insulin Human Regular 0 units 03/10/21 18:00 03/18/21 06:29 Insulin Regular, Human 100 Units/1 Ml SUB-Q Not Given Q6HR [facility] Protocol Labetalol HCl 100 mg 03/11/21 14:00 03/18/21 08:00 Labetalol 100 Mg Tab PO 100 mg TID KYLE Administration Magnesium Hydroxide 30 ml 03/02/21 00:18 Magnesium Hydroxide (Mom) Oral Liqd Udc PO Q4H PRN Constipation Metoprolol Tartrate 5 mg 03/12/21 14:15 03/12/21 14:40 Metoprolol Tartrate 5 Mg/5 Ml Inj IV 5 mg Q6HR PRN Administration Tachyarrhythmias Miscellaneous Medication 145 mcg 03/17/21 10:00 Linaclotide [Linzess] PO QDAY [facility] Multi-Ingred Cream/Lotion/Oil/Oint 1 applic 03/02/21 15:42 Mineral Oil/Petrolatum, White Ophth Oint 3.5 Gm OU Q4HR PRN Dry Eye(s) Multivitamins/Minerals 1 each 03/03/21 22:00 03/18/21 09:38 Calcium Carb/Vit D3/Minerals 600 Mg/800 Units Tab PO 1 each BID KYLE Administration Pregabalin 50 mg 03/17/21 14:00 03/18/21 08:00 Pregabalin 50 Mg Cap PO 50 mg TID KYLE Administration Senna/Docusate Sodium 1 tab 03/02/21 22:00 03/18/21 09:36 Sennosides/Docusate Sodium 8.6/50 Mg Tab FEEDTUBE 1 tab BID KYLE Administration Simple Syrup 15 ml 03/03/21 10:53 Simple Syrup 15 Ml FEEDTUBE PRN PRN Hypoglycemia Simple Syrup 30 ml 03/03/21 10:53 Simple Syrup 15 Ml FEEDTUBE PRN PRN Hypoglycemia Sodium Bicarbonate 325 mg 07/25/21 10:53 Sodium Bicarbonate 325 Mg Tab FEEDTUBE PRN PRN For Clogged Feeding Tube Sodium Chloride 10 ml 03/02/21 10:00 03/18/21 09:36 Sodium Chloride 0.9% 10 Ml Flush Syringe IV 10 ml BID KYLE Administration Sodium Chloride 10 ml 03/02/21 00:18 Sodium Chloride 0.9% 10 Ml Flush Syringe IV PRN PRN LINE FLUSH Zinc Sulfate 220 mg 03/06/21 16:00 03/18/21 09:38 Zinc Sulfate 220 Mg Cap PO 220 mg BID KYLE Administration Ziprasidone 20 mg 03/14/21 11:18 Ziprasidone Mesylate 20 Mg Vial IM Q6H PRN Agitation Zolpidem Tartrate 5 mg 03/13/21 17:55 03/18/21 00:50 Zolpidem 5 Mg Tab PO 5 mg QHS PRN Administration Sleep Nutrition/Malnutrition Assess - Dietary Evaluation Nutrition/Malnutrition Findings: Nutrition Notes Start: 03/02/21 10:10 Freq: Status: Active Protocol: Document 03/15/21 13:07 (Rec: 03/15/21 13:29 [email or web address]) Nutrition Notes Initial or Follow up Reassessment Current Diagnosis Acute Kidney Injury,COPD, Diabetes,Sepsis,Hypertension, Heart Failure,Respiratory Failure Other Pertinent Diagnosis pneu, AMS, COVID(+) Current Diet Cardiac Labs/Tests POC [phone] Pertinent Medications reviewed Height 5 ft 10 in Weight 131 kg [place] Body Weight (kg) 75.45 BMI 41.4 Subjective/Other Information Unable to speak with pt. RN reports pt ate one apple sauce and he states he isn't hungry . He did not eat breakfast or lunch. Burn Absent Trauma Absent Current % PO Negligible Minimum of two criteria No Fluid Accumulation Mild (non-severe) #1 Nutrition Diagnosis Inadequate oral intake As Evidenced by Signs and Symptoms pt eating 0% of meals Diagnosis Progress(for reassessment Continues documentation) Is patient on ventilator? No Is Patient Ambulatory and/or Out of Bed No REE-([place]-confined to bed) 2614.728 Kcal/Kg value to use for calculation 16 Approximate Energy Requirements Using 2096 kcal/Kg Calculation Used for Recommendations Kcal/kg Additional Notes Pro needs up to 2.5g/klg IBW: up to 189g/day Fluid needs 1ml/kcal Nutrition Intervention Change Diet Order: continue Add Supplement/Snack (indicate name/kcal Glucerna daily /protein ) Provides kCal: 220 Provides Protein (gm) 10 Goal #1 PO tolerance Goal #2 PO intake to meet at least 75% energy and pro needs Follow-Up By: 03/19/21 Additional Comments F/u: intakes and ONS tolerance
--- NOTE | 2021-03-18 12:28 | Progress Note ---
Assessment and Plan Cultures: SARS CoV2 PCR: Positive MRSA nasal PCR: Positive 03/01/2021 blood culture: No growth 03/01/2021 urine culture: No growth 03/02/2021 tracheal aspirate: [place] albicans 03/06/2021 blood culture: no growth 03/06/2021 urine culture: No growth A/P: 51-year-old male with COPD, chronic respiratory failure, CHF, diabetes, DVT/PE, morbid obesity on anticoagulation was admitted to the hospital on 03/01/2021 with altered mental status and shortness of breath: #Bilateral pneumonia: secondary to COVID-19. Completed empiric antibiotics. #Acute hypoxic respiratory failure: Now extubated, on high flow nasal cannula #Morbid obesity #Acute on chronic CHF #Transaminitis: Likely from COVID-19. Elevated LFTs with elevated alkaline phosphatase: RUQ ultrasound did not reveal any evidence of cholelithiasis, cholecystitis or choledocholithiasis. #Acute RLE DVT: On anticoagulation Recs: -Completed 10 days steroids. -Completed Remdesivir -Completed empiric antibiotics -on anticoagulation Kamar Schrader MD [facility], [facility] ([facility] O: [phone] F: [phone] Subjective Date of service: 03/18/21 Principal diagnosis: Ac hypoxemic resp failure; NSTEMI; ALPHONSO; Sepsis; PNA; CHF; DM II; AMS Interval history: Afebrile, normal white count. On high flow nasal cannula. Objective - Exam Narrative Exam: Physical exam deferred to reduce risk of transmission of COVID-19. Please refer to primary team's note. - Constitutional Vitals: Vital Signs Temp Pulse Resp BP Pulse Ox 98.4 F 91 H 20 116/71 96 03/18/21 05:35 03/18/21 05:35 03/18/21 05:35 03/18/21 05:35 03/18/21 05:35 Temperature -Last 24 Hours Temperature 98.4 F Temperature 98.4 F Temperature 98.4 F - Labs CBC & Chem 7: 03/18/21 07:53 03/18/21 07:53 Labs: Abnormal lab results 03/17/21 03/17/21 03/17/21 Range/Units 13:37 13:37 13:41 RBC 2.52 L (3.65-5.03) M/mm3 Hgb 8.6 L (11.8-15.2) gm/dl Hct 25.0 L (35.5-45.6) % MCV 99 H (84-94) fl MCH 34 H (28-32) pg RDW 18.1 H (13.2-15.2) % Potassium 3.5 L (3.6-5.0) mmol/L Carbon Dioxide (22-30) mmol/L Creatinine 0.4 L (0.8-1.3) mg/dL Glucose 174 H (75-100) mg/dL POC Glucose 176 H (70-105) mg/dL Calcium (8.4-10.2) mg/dL Troponin T (0.00-0.029) ng/mL 03/17/21 03/17/21 03/18/21 Range/Units 18:29 23:06 05:50 RBC (3.65-5.03) M/mm3 Hgb (11.8-15.2) gm/dl Hct (35.5-45.6) % MCV (84-94) fl MCH (28-32) pg RDW (13.2-15.2) % Potassium (3.6-5.0) mmol/L Carbon Dioxide (22-30) mmol/L Creatinine (0.8-1.3) mg/dL Glucose (75-100) mg/dL POC Glucose 180 H 127 H 108 H (70-105) mg/dL Calcium (8.4-10.2) mg/dL Troponin T (0.00-0.029) ng/mL 03/18/21 03/18/21 03/18/21 Range/Units 07:53 07:53 07:53 RBC 2.46 L (3.65-5.03) M/mm3 Hgb 7.9 L (11.8-15.2) gm/dl Hct 24.5 L (35.5-45.6) % MCV 100 H (84-94) fl MCH (28-32) pg RDW 18.0 H (13.2-15.2) % Potassium (3.6-5.0) mmol/L Carbon Dioxide 31 H (22-30) mmol/L Creatinine 0.4 L (0.8-1.3) mg/dL Glucose (75-100) mg/dL POC Glucose (70-105) mg/dL Calcium 8.3 L (8.4-10.2) mg/dL Troponin T 0.185 H* (0.00-0.029) ng/mL 03/18/21 Range/Units 11:43 RBC (3.65-5.03) M/mm3 Hgb (11.8-15.2) gm/dl Hct (35.5-45.6) % MCV (84-94) fl MCH (28-32) pg RDW (13.2-15.2) % Potassium (3.6-5.0) mmol/L Carbon Dioxide (22-30) mmol/L Creatinine (0.8-1.3) mg/dL Glucose (75-100) mg/dL POC Glucose 158 H (70-105) mg/dL Calcium (8.4-10.2) mg/dL Troponin T (0.00-0.029) ng/mL
--- NOTE | 2021-03-18 13:47 | Progress Note ---
Assessment and Plan 51-year-old -Citizen Of [place] male with known history of COPD, CHF, diabetes mellitus, DVT and hypertension was brought into the emergency room by EMS for altered mental status and hypoxia. According to EMS patient was discharged from [facility] after treatment for CHF exacerbation. Patient was found to be altered upon waking up and on arrival of EMS oxygen saturation was about 88% on room air, blood pressure was said to be about 88/50 mmHg.Was subsequently placed on 5 L of oxygen by nasal cannula with improvement in his oxygen saturation. According to who was by the bedside patient was having some mild cough which was nonproductive. He has had no fever or chills. There has been no nausea or vomiting or abdominal pain. Patient has been fully vaccinated against COVID-19. Work-up in the emergency room, labs reveals leukocytosis of 12.7, hemoglobin of 9.1 and hematocrit of 27.7, sodium of 132, lactic acid of 2.90. Liver enzymes were abnormally elevated, troponin was also bumped at 0.493. CT of the chest shows findings concerning for atelectasis and or infiltrate, CT of the head was unremarkable. Patient was in severe respiratory distress upon arrival in the emergency room and subsequently intubated. Patient currently being admitted for mainly severe sepsis, respiratory failure, pneumonia and ALPHONSO. Patient is awake and alert. On vapotherm, FIO2 50% and O2 sat 92%. BIPAP stand by in the room. Patient denies chest pain or shortness of breath. Patient is afebrile. Has no leukocytosis. Hemoglobin 7.9. Hematocrit 24.9. Troponin: 0.185. Cxray on 03/14/21 reported: reported Bibasilar pleural-parenchymal densities . No pneumothorax. No significant change in comparison to 03/12/21. Patients venous duplex studies done 03/04/21 reported Occlusive thrombus in the right posterior tibial vein. The remainder of the veins are patent Patient is currently on albuterol, Mucinex, Enoxaparin in therapeutic dose and Pepcid. I spent critical care time of 35 minutes reviewing the chart, Examine the patient , review chst xray and venous doppler studies, review lab results, talking to the nursing and respiratory therapy staff and work out plan of treatment in this critically ill COVID Positive patient. - Patient Problems (1) Acute and chronic respiratory failure ([id number]) Current Visit: Yes Status: Acute Plan to address problem: Vapotherm, FIO2 50% Albuterol inhaler 2 puffs po q 4 hours prn for shortness of breath. S/C Lovenox Famotidine (2) Acute deep vein thrombosis (DVT) of right lower extremity Current Visit: Yes Status: Acute Plan to address problem: Continue S/C Lovenox in therapeutic dose. (3) ALPHONSO (acute kidney injury) Current Visit: Yes Status: Acute Plan to address problem: Management as per primary team and nephrology. (4) CHF (congestive heart failure) Current Visit: Yes Status: Acute Plan to address problem: Management as per primary team and cardiology (5) COVID-19 Current Visit: Yes Status: Acute Plan to address problem: Patient Positive for Sanchez virus PCR. Management as per infectious diseases. (6) COPD (chronic obstructive pulmonary disease) Current Visit: Yes Status: Chronic Plan to address problem: Vapotherm, FIO2 50% Albuterol inhaler 2 puffs po q 4 hours prn for shortness of breath. S/C Lovenox Famotidine PFTs as out when his condition improves. (7) DM2 (diabetes mellitus, type 2) Current Visit: Yes Status: Chronic Plan to address problem: Management as per primary team. (8) KAM (obstructive sleep apnea) Current Visit: Yes Status: Chronic Plan to address problem: BIPAP stand by in the room BIPAP during night time. Recommend sleep study as out patient. (9) Tobacco abuse Current Visit: Yes Status: Chronic Plan to address problem: Will personnel counselor on smoking cessation. Subjective Date of service: 03/18/21 Principal diagnosis: Ac hypoxemic resp failure; NSTEMI; ALPHONSO; Sepsis; PNA; CHF; DM II; AMS Interval history: 51-year-old -Citizen Of [place] male with known history of COPD, CHF, diabetes mellitus, DVT and hypertension was brought into the emergency room by EMS for altered mental status and hypoxia. According to EMS patient was discharged from [facility] after treatment for CHF exacerbation. Patient was found to be altered upon waking up and on arrival of EMS oxygen saturation was about 88% on room air, blood pressure was said to be about 88/50 mmHg.Was subsequently placed on 5 L of oxygen by nasal cannula with improvement in his oxygen saturation. According to who was by the bedside patient was having some mild cough which was nonproductive. He has had no fever or chills. There has been no nausea or vomiting or abdominal pain. Patient has been fully vaccinated against COVID-19. Work-up in the emergency room, labs reveals leukocytosis of 12.7, hemoglobin of 9.1 and hematocrit of 27.7, sodium of 132, lactic acid of 2.90. Liver enzymes were abnormally elevated, troponin was also bumped at 0.493. CT of the chest shows findings concerning for atelectasis and or infiltrate, CT of the head was unremarkable. Patient was in severe respiratory distress upon arrival in the emergency room and subsequently intubated. Patient currently being admitted for mainly severe sepsis, respiratory failure, pneumonia and ALPHONSO. Patient is awake and alert. On vapotherm, FIO2 50% and O2 sat 92%. BIPAP stand by in the room. Patient denies chest pain or shortness of breath. Patient is afebrile. Has no leukocytosis. Hemoglobin 7.9. Hematocrit 24.9. Troponin: 0.185. Patients Sanchez virus PCR is Positive. Cxray on 03/14/21 reported: reported Bibasilar pleural-parenchymal densities . No pneumothorax. No significant change in comparison to 03/12/21. Patients venous duplex studies done 03/04/21 reported Occlusive thrombus in the right posterior tibial vein. The remainder of the veins are patent. Patient is currently on albuterol, Mucinex, Enoxaparin in therapeutic dose and Pepcid. Objective Vital Signs - 12hr 03/18/21 03/18/21 02:00 05:35 Temperature 98.4 F Pulse Rate 91 H Respiratory 20 Rate Blood Pressure 116/71 O2 Sat by Pulse 92 96 Oximetry Constitutional: no acute distress, alert, other (middle aged obese male with mildly increased respiratory effort at rest) Eyes: non-icteric ENT: oropharynx moist, other (extubated) Neck: supple, no lymphadenopathy, no JVD, other (large circumference) Effort: mildly labored Ascultation: Bilateral: diminished breath sounds, rhonchi (posterior bases) Percussion: Bilateral: not dull Cardiovascular: regular rate and rhythm Gastrointestinal: normoactive bowel sounds, soft, non-tender, non-distended (protuberant) Integumentary: normal Extremities: no cyanosis, pulses normal, no ischemia or petechiae, edema (trace) Neurologic: non-focal exam (grossly), pupils equal and round, CN II-XII normal, motor strength normal and Psychiatric: mood appropriate CBC and BMP: 03/18/21 07:53 03/18/21 07:53 ABG, PT/INR, D-dimer: ABG ABG pH 7.487 (7.320-7.450) H 03/10/21 12:33 POC ABG pCO2 40.4 mmHg (32.0-48.0) 03/10/21 12:33 POC ABG pO2 62.1 mmHg (83-108) L 03/10/21 12:33 POC ABG HCO3 29.9 03/10/21 12:33 ABG O2 Saturation 90.2 (0-100) 03/10/21 12:33 PT/INR, D-dimer PT 15.6 Sec. (12.2-14.9) H 03/04/21 10:17 INR 1.18 (0.87-1.13) H 03/04/21 10:17 D-Dimer 475.91 ng/mlDDU (0-234) H 03/14/21 03:40 Abnormal lab findings: Abnormal Labs 03/01/21 03/01/21 03/01/21 19:15 19:21 19:21 WBC 12.7 H RBC 2.77 L Hgb 9.1 L Hct 27.7 L MCV 100 H MCH 33 H RDW 18.0 H Seg Neutrophils % Monocytes % (Manual) 17.0 H Seg Neutrophils # Monocytes # (Manual) 2.2 H PT INR D-Dimer Heparin Anti-Xa Level ABG pH POC ABG pCO2 POC ABG pO2 64.9 L ABG Hemoglobin 9.3 L ABG Oxyhemoglobin 93.0 L ABG Sodium 133.8 L ABG Potassium ABG Chloride 97.0 L ABG Glucose 191 H Carboxyhemoglobin Sodium Potassium Chloride Carbon Dioxide BUN Creatinine Glucose POC Glucose Lactic Acid Calcium Phosphorus Magnesium Ferritin Total Bilirubin Direct Bilirubin AST ALT Alkaline Phosphatase Ammonia Lactate Dehydrogenase Troponin T 0.493 H* C-Reactive Protein Total Protein Albumin Triglycerides 400 H Cholesterol 232 H HDL Cholesterol 22 L Lipase Arterial Blood Glucose 191 H Arterial Blood Ionized Calcium 4.4 L Urine WBC (Auto) Salicylates Acetaminophen Coronavirus (PCR) 03/01/21 03/01/21 03/01/21 19:21 19:21 19:21 WBC RBC Hgb Hct MCV MCH RDW Seg Neutrophils % Monocytes % (Manual) Seg Neutrophils # Monocytes # (Manual) PT 16.6 H INR 1.28 H D-Dimer Heparin Anti-Xa Level ABG pH POC ABG pCO2 POC ABG pO2 ABG Hemoglobin ABG Oxyhemoglobin ABG Sodium ABG Potassium ABG Chloride ABG Glucose Carboxyhemoglobin Sodium 132 L Potassium Chloride 92.2 L Carbon Dioxide BUN 43 H Creatinine 2.4 H Glucose 190 H POC Glucose Lactic Acid 2.90 H* Calcium Phosphorus Magnesium Ferritin Total Bilirubin 1.60 H Direct Bilirubin 1.2 H AST 275 H ALT 156 H Alkaline Phosphatase 282 H Ammonia Lactate Dehydrogenase Troponin T C-Reactive Protein Total Protein 5.8 L Albumin 2.6 L Triglycerides Cholesterol HDL Cholesterol Lipase 120 H Arterial Blood Glucose Arterial Blood Ionized Calcium Urine WBC (Auto) Salicylates Acetaminophen Coronavirus (PCR) 03/01/21 03/01/21 03/01/21 19:21 19:21 19:21 WBC RBC Hgb Hct MCV MCH RDW Seg Neutrophils % Monocytes % (Manual) Seg Neutrophils # Monocytes # (Manual) PT INR D-Dimer Heparin Anti-Xa Level ABG pH POC ABG pCO2 POC ABG pO2 ABG Hemoglobin ABG Oxyhemoglobin ABG Sodium ABG Potassium ABG Chloride ABG Glucose Carboxyhemoglobin Sodium Potassium Chloride Carbon Dioxide BUN Creatinine Glucose POC Glucose Lactic Acid Calcium Phosphorus Magnesium Ferritin Total Bilirubin Direct Bilirubin AST ALT Alkaline Phosphatase Ammonia 71.0 H Lactate Dehydrogenase Troponin T C-Reactive Protein Total Protein Albumin Triglycerides Cholesterol HDL Cholesterol Lipase Arterial Blood Glucose Arterial Blood Ionized Calcium Urine WBC (Auto) Salicylates < 0.3 L Acetaminophen 5.0 L Coronavirus (PCR) 03/01/21 03/01/21 03/02/21 20:55 20:55 00:01 WBC RBC Hgb Hct MCV MCH RDW Seg Neutrophils % Monocytes % (Manual) Seg Neutrophils # Monocytes # (Manual) PT INR D-Dimer Heparin Anti-Xa Level ABG pH 7.234 L POC ABG pCO2 POC ABG pO2 240.5 H ABG Hemoglobin 9.3 L ABG Oxyhemoglobin 99.1 H ABG Sodium 135.3 L ABG Potassium ABG Chloride ABG Glucose 286 H Carboxyhemoglobin 0.3 L Sodium Potassium Chloride Carbon Dioxide BUN Creatinine Glucose POC Glucose Lactic Acid 4.30 H* Calcium Phosphorus Magnesium Ferritin Total Bilirubin Direct Bilirubin AST ALT Alkaline Phosphatase Ammonia Lactate Dehydrogenase Troponin T 0.484 H* C-Reactive Protein Total Protein Albumin Triglycerides Cholesterol HDL Cholesterol Lipase Arterial Blood Glucose 286 H Arterial Blood Ionized Calcium Urine WBC (Auto) Salicylates Acetaminophen Coronavirus (PCR) 03/02/21 03/02/21 03/02/21 03:42 05:23 06:35 WBC RBC Hgb Hct MCV MCH RDW Seg Neutrophils % Monocytes % (Manual) Seg Neutrophils # Monocytes # (Manual) PT INR D-Dimer Heparin Anti-Xa Level ABG pH 7.225 L POC ABG pCO2 POC ABG pO2 181.8 H ABG Hemoglobin 9.4 L ABG Oxyhemoglobin 98.6 H ABG Sodium 132.1 L ABG Potassium 5.0 H ABG Chloride ABG Glucose 454 H Carboxyhemoglobin 0.3 L Sodium Potassium Chloride Carbon Dioxide BUN Creatinine Glucose POC Glucose 410 H Lactic Acid 7.50 H* Calcium Phosphorus Magnesium Ferritin Total Bilirubin Direct Bilirubin AST ALT Alkaline Phosphatase Ammonia Lactate Dehydrogenase Troponin T C-Reactive Protein Total Protein Albumin Triglycerides Cholesterol HDL Cholesterol Lipase Arterial Blood Glucose 454 H Arterial Blood Ionized Calcium 4.2 L Urine WBC (Auto) Salicylates Acetaminophen Coronavirus (PCR) 03/02/21 03/02/21 03/02/21 10:48 10:48 10:48 WBC RBC Hgb Hct MCV MCH RDW Seg Neutrophils % Monocytes % (Manual) Seg Neutrophils # Monocytes # (Manual) PT INR D-Dimer Heparin Anti-Xa Level ABG pH POC ABG pCO2 POC ABG pO2 ABG Hemoglobin ABG Oxyhemoglobin ABG Sodium ABG Potassium ABG Chloride ABG Glucose Carboxyhemoglobin Sodium 132 L Potassium Chloride 93.3 L Carbon Dioxide 20 L BUN 46 H Creatinine 1.9 H Glucose 503 H* POC Glucose Lactic Acid 3.40 H* Calcium 7.9 L Phosphorus 5.80 H Magnesium Ferritin Total Bilirubin Direct Bilirubin AST ALT Alkaline Phosphatase Ammonia Lactate Dehydrogenase Troponin T C-Reactive Protein Total Protein Albumin Triglycerides Cholesterol HDL Cholesterol Lipase Arterial Blood Glucose Arterial Blood Ionized Calcium Urine WBC (Auto) Salicylates Acetaminophen Coronavirus (PCR) 03/02/21 03/02/21 03/02/21 11:23 11:38 15:33 WBC RBC Hgb Hct MCV MCH RDW Seg Neutrophils % Monocytes % (Manual) Seg Neutrophils # Monocytes # (Manual) PT INR D-Dimer Heparin Anti-Xa Level ABG pH 7.318 L POC ABG pCO2 POC ABG pO2 ABG Hemoglobin 9.2 L ABG Oxyhemoglobin ABG Sodium 133.2 L ABG Potassium ABG Chloride ABG Glucose 504 H Carboxyhemoglobin 0.3 L Sodium Potassium Chloride Carbon Dioxide BUN Creatinine Glucose POC Glucose 468 H 445 H Lactic Acid Calcium Phosphorus Magnesium Ferritin Total Bilirubin Direct Bilirubin AST ALT Alkaline Phosphatase Ammonia Lactate Dehydrogenase Troponin T C-Reactive Protein Total Protein Albumin Triglycerides Cholesterol HDL Cholesterol Lipase Arterial Blood Glucose 504 H Arterial Blood Ionized Calcium 4.2 L Urine WBC (Auto) Salicylates Acetaminophen Coronavirus (PCR) 03/02/21 03/02/21 03/02/21 16:28 16:28 16:28 WBC RBC Hgb 8.8 L Hct 26.0 L MCV MCH RDW Seg Neutrophils % Monocytes % (Manual) Seg Neutrophils # Monocytes # (Manual) PT 15.2 H INR 1.14 H D-Dimer Heparin Anti-Xa Level ABG pH POC ABG pCO2 POC ABG pO2 ABG Hemoglobin ABG Oxyhemoglobin ABG Sodium ABG Potassium ABG Chloride ABG Glucose Carboxyhemoglobin Sodium 135 L Potassium Chloride 93.8 L Carbon Dioxide BUN 48 H Creatinine 1.8 H Glucose 454 H POC Glucose Lactic Acid Calcium 7.6 L Phosphorus Magnesium Ferritin Total Bilirubin Direct Bilirubin AST ALT Alkaline Phosphatase Ammonia Lactate Dehydrogenase Troponin T C-Reactive Protein Total Protein Albumin Triglycerides Cholesterol HDL Cholesterol Lipase Arterial Blood Glucose Arterial Blood Ionized Calcium Urine WBC (Auto) Salicylates Acetaminophen Coronavirus (PCR) 03/02/21 03/02/21 03/02/21 17:39 18:52 20:09 WBC RBC Hgb Hct MCV MCH RDW Seg Neutrophils % Monocytes % (Manual) Seg Neutrophils # Monocytes # (Manual) PT INR D-Dimer Heparin Anti-Xa Level ABG pH POC ABG pCO2 POC ABG pO2 ABG Hemoglobin ABG Oxyhemoglobin ABG Sodium ABG Potassium ABG Chloride ABG Glucose Carboxyhemoglobin Sodium Potassium Chloride Carbon Dioxide BUN Creatinine Glucose POC Glucose 404 H 357 H 347 H Lactic Acid Calcium Phosphorus Magnesium Ferritin Total Bilirubin Direct Bilirubin AST ALT Alkaline Phosphatase Ammonia Lactate Dehydrogenase Troponin T C-Reactive Protein Total Protein Albumin Triglycerides Cholesterol HDL Cholesterol Lipase Arterial Blood Glucose Arterial Blood Ionized Calcium Urine WBC (Auto) Salicylates Acetaminophen Coronavirus (PCR) 03/02/21 03/02/21 03/02/21 21:03 22:00 22:55 WBC RBC Hgb Hct MCV MCH RDW Seg Neutrophils % Monocytes % (Manual) Seg Neutrophils # Monocytes # (Manual) PT INR D-Dimer Heparin Anti-Xa Level ABG pH POC ABG pCO2 POC ABG pO2 ABG Hemoglobin ABG Oxyhemoglobin ABG Sodium ABG Potassium ABG Chloride ABG Glucose Carboxyhemoglobin Sodium Potassium Chloride Carbon Dioxide BUN Creatinine Glucose POC Glucose 307 H 270 H 237 H Lactic Acid Calcium Phosphorus Magnesium Ferritin Total Bilirubin Direct Bilirubin AST ALT Alkaline Phosphatase Ammonia Lactate Dehydrogenase Troponin T C-Reactive Protein Total Protein Albumin Triglycerides Cholesterol HDL Cholesterol Lipase Arterial Blood Glucose Arterial Blood Ionized Calcium Urine WBC (Auto) Salicylates Acetaminophen Coronavirus (PCR) 03/03/21 03/03/21 03/03/21 00:02 00:57 02:01 WBC RBC Hgb Hct MCV MCH RDW Seg Neutrophils % Monocytes % (Manual) Seg Neutrophils # Monocytes # (Manual) PT INR D-Dimer Heparin Anti-Xa Level ABG pH POC ABG pCO2 POC ABG pO2 ABG Hemoglobin ABG Oxyhemoglobin ABG Sodium ABG Potassium ABG Chloride ABG Glucose Carboxyhemoglobin Sodium Potassium Chloride Carbon Dioxide BUN Creatinine Glucose POC Glucose 252 H 214 H 261 H Lactic Acid Calcium Phosphorus Magnesium Ferritin Total Bilirubin Direct Bilirubin AST ALT Alkaline Phosphatase Ammonia Lactate Dehydrogenase Troponin T C-Reactive Protein Total Protein Albumin Triglycerides Cholesterol HDL Cholesterol Lipase Arterial Blood Glucose Arterial Blood Ionized Calcium Urine WBC (Auto) Salicylates Acetaminophen Coronavirus (PCR) 03/03/21 03/03/21 03/03/21 03:07 03:10 03:50 WBC 13.7 H RBC 2.69 L Hgb 8.7 L Hct 26.9 L MCV 100 H MCH RDW 18.5 H Seg Neutrophils % 79.0 H Monocytes % (Manual) Seg Neutrophils # 10.8 H Monocytes # (Manual) PT INR D-Dimer Heparin Anti-Xa Level ABG pH POC ABG pCO2 50.9 H POC ABG pO2 81.9 L ABG Hemoglobin 8.7 L ABG Oxyhemoglobin ABG Sodium 134.2 L ABG Potassium ABG Chloride 96.0 L ABG Glucose 279 H Carboxyhemoglobin 0.4 L Sodium Potassium Chloride Carbon Dioxide BUN Creatinine Glucose POC Glucose 276 H Lactic Acid Calcium Phosphorus Magnesium Ferritin Total Bilirubin Direct Bilirubin AST ALT Alkaline Phosphatase Ammonia Lactate Dehydrogenase Troponin T C-Reactive Protein Total Protein Albumin Triglycerides Cholesterol HDL Cholesterol Lipase Arterial Blood Glucose 279 H Arterial Blood Ionized Calcium 3.9 L Urine WBC (Auto) Salicylates Acetaminophen Coronavirus (PCR) 03/03/21 03/03/21 03/03/21 03:50 04:06 04:32 WBC RBC Hgb Hct MCV MCH RDW Seg Neutrophils % Monocytes % (Manual) Seg Neutrophils # Monocytes # (Manual) PT INR D-Dimer Heparin Anti-Xa Level ABG pH POC ABG pCO2 POC ABG pO2 ABG Hemoglobin ABG Oxyhemoglobin ABG Sodium ABG Potassium ABG Chloride ABG Glucose Carboxyhemoglobin Sodium Potassium Chloride 94.2 L Carbon Dioxide BUN 45 H Creatinine 1.9 H Glucose 261 H POC Glucose 256 H Lactic Acid Calcium 7.3 L Phosphorus Magnesium Ferritin Total Bilirubin Direct Bilirubin 0.9 H AST 208 H ALT 148 H Alkaline Phosphatase 251 H Ammonia Lactate Dehydrogenase Troponin T C-Reactive Protein Total Protein 5.5 L Albumin 2.4 L Triglycerides Cholesterol HDL Cholesterol Lipase Arterial Blood Glucose Arterial Blood Ionized Calcium Urine WBC (Auto) Salicylates Acetaminophen Coronavirus (PCR) 03/03/21 03/03/21 03/03/21 05:23 06:06 07:07 WBC RBC Hgb Hct MCV MCH RDW Seg Neutrophils % Monocytes % (Manual) Seg Neutrophils # Monocytes # (Manual) PT INR D-Dimer Heparin Anti-Xa Level ABG pH POC ABG pCO2 POC ABG pO2 ABG Hemoglobin ABG Oxyhemoglobin ABG Sodium ABG Potassium ABG Chloride ABG Glucose Carboxyhemoglobin Sodium Potassium Chloride Carbon Dioxide BUN Creatinine Glucose POC Glucose 214 H 249 H 237 H Lactic Acid Calcium Phosphorus Magnesium Ferritin Total Bilirubin Direct Bilirubin AST ALT Alkaline Phosphatase Ammonia Lactate Dehydrogenase Troponin T C-Reactive Protein Total Protein Albumin Triglycerides Cholesterol HDL Cholesterol Lipase Arterial Blood Glucose Arterial Blood Ionized Calcium Urine WBC (Auto) Salicylates Acetaminophen Coronavirus (PCR) 03/03/21 03/03/21 03/03/21 07:58 08:58 09:52 WBC RBC Hgb Hct MCV MCH RDW Seg Neutrophils % Monocytes % (Manual) Seg Neutrophils # Monocytes # (Manual) PT INR D-Dimer Heparin Anti-Xa Level ABG pH POC ABG pCO2 POC ABG pO2 ABG Hemoglobin ABG Oxyhemoglobin ABG Sodium ABG Potassium ABG Chloride ABG Glucose Carboxyhemoglobin Sodium Potassium Chloride Carbon Dioxide BUN Creatinine Glucose POC Glucose 227 H 215 H 207 H Lactic Acid Calcium Phosphorus Magnesium Ferritin Total Bilirubin Direct Bilirubin AST ALT Alkaline Phosphatase Ammonia Lactate Dehydrogenase Troponin T C-Reactive Protein Total Protein Albumin Triglycerides Cholesterol HDL Cholesterol Lipase Arterial Blood Glucose Arterial Blood Ionized Calcium Urine WBC (Auto) Salicylates Acetaminophen Coronavirus (PCR) 03/03/21 03/03/21 03/03/21 10:55 11:44 12:53 WBC RBC Hgb Hct MCV MCH RDW Seg Neutrophils % Monocytes % (Manual) Seg Neutrophils # Monocytes # (Manual) PT INR D-Dimer Heparin Anti-Xa Level ABG pH POC ABG pCO2 POC ABG pO2 ABG Hemoglobin ABG Oxyhemoglobin ABG Sodium ABG Potassium ABG Chloride ABG Glucose Carboxyhemoglobin Sodium Potassium Chloride Carbon Dioxide BUN Creatinine Glucose POC Glucose 198 H 210 H 203 H Lactic Acid Calcium Phosphorus Magnesium Ferritin Total Bilirubin Direct Bilirubin AST ALT Alkaline Phosphatase Ammonia Lactate Dehydrogenase Troponin T C-Reactive Protein Total Protein Albumin Triglycerides Cholesterol HDL Cholesterol Lipase Arterial Blood Glucose Arterial Blood Ionized Calcium Urine WBC (Auto) Salicylates Acetaminophen Coronavirus (PCR) 03/03/21 03/03/21 03/03/21 13:53 14:58 15:23 WBC RBC Hgb Hct MCV MCH RDW Seg Neutrophils % Monocytes % (Manual) Seg Neutrophils # Monocytes # (Manual) PT INR D-Dimer Heparin Anti-Xa Level ABG pH POC ABG pCO2 POC ABG pO2 ABG Hemoglobin ABG Oxyhemoglobin ABG Sodium ABG Potassium ABG Chloride ABG Glucose Carboxyhemoglobin Sodium Potassium Chloride Carbon Dioxide BUN Creatinine Glucose POC Glucose 210 H 187 H Lactic Acid 3.10 H* Calcium Phosphorus Magnesium Ferritin Total Bilirubin Direct Bilirubin AST ALT Alkaline Phosphatase Ammonia Lactate Dehydrogenase Troponin T C-Reactive Protein Total Protein Albumin Triglycerides Cholesterol HDL Cholesterol Lipase Arterial Blood Glucose Arterial Blood Ionized Calcium Urine WBC (Auto) Salicylates Acetaminophen Coronavirus (PCR) 03/03/21 03/03/21 03/03/21 15:51 16:25 16:53 WBC RBC Hgb Hct MCV MCH RDW Seg Neutrophils % Monocytes % (Manual) Seg Neutrophils # Monocytes # (Manual) PT INR D-Dimer Heparin Anti-Xa Level ABG pH POC ABG pCO2 POC ABG pO2 ABG Hemoglobin ABG Oxyhemoglobin ABG Sodium ABG Potassium ABG Chloride ABG Glucose Carboxyhemoglobin Sodium Potassium Chloride 91.0 L Carbon Dioxide 34 H BUN 47 H Creatinine 1.7 H Glucose 190 H POC Glucose 182 H 179 H Lactic Acid Calcium 7.6 L Phosphorus Magnesium Ferritin Total Bilirubin Direct Bilirubin AST ALT Alkaline Phosphatase Ammonia Lactate Dehydrogenase Troponin T C-Reactive Protein Total Protein Albumin Triglycerides Cholesterol HDL Cholesterol Lipase Arterial Blood Glucose Arterial Blood Ionized Calcium Urine WBC (Auto) Salicylates Acetaminophen Coronavirus (PCR) 03/03/21 03/03/21 03/03/21 17:55 19:37 20:57 WBC RBC Hgb Hct MCV MCH RDW Seg Neutrophils % Monocytes % (Manual) Seg Neutrophils # Monocytes # (Manual) PT INR D-Dimer Heparin Anti-Xa Level ABG pH POC ABG pCO2 POC ABG pO2 ABG Hemoglobin ABG Oxyhemoglobin ABG Sodium ABG Potassium ABG Chloride ABG Glucose Carboxyhemoglobin Sodium Potassium Chloride Carbon Dioxide BUN Creatinine Glucose POC Glucose 185 H 174 H 175 H Lactic Acid Calcium Phosphorus Magnesium Ferritin Total Bilirubin Direct Bilirubin AST ALT Alkaline Phosphatase Ammonia Lactate Dehydrogenase Troponin T C-Reactive Protein Total Protein Albumin Triglycerides Cholesterol HDL Cholesterol Lipase Arterial Blood Glucose Arterial Blood Ionized Calcium Urine WBC (Auto) Salicylates Acetaminophen Coronavirus (PCR) 03/03/21 03/03/21 03/03/21 22:02 22:56 23:10 WBC RBC Hgb Hct MCV MCH RDW Seg Neutrophils % Monocytes % (Manual) Seg Neutrophils # Monocytes # (Manual) PT INR D-Dimer Heparin Anti-Xa Level 0.75 H ABG pH POC ABG pCO2 POC ABG pO2 ABG Hemoglobin ABG Oxyhemoglobin ABG Sodium ABG Potassium ABG Chloride ABG Glucose Carboxyhemoglobin Sodium Potassium Chloride Carbon Dioxide BUN Creatinine Glucose POC Glucose 170 H 160 H Lactic Acid Calcium Phosphorus Magnesium Ferritin Total Bilirubin Direct Bilirubin AST ALT Alkaline Phosphatase Ammonia Lactate Dehydrogenase Troponin T C-Reactive Protein Total Protein Albumin Triglycerides Cholesterol HDL Cholesterol Lipase Arterial Blood Glucose Arterial Blood Ionized Calcium Urine WBC (Auto) Salicylates Acetaminophen Coronavirus (PCR) 03/03/21 03/04/21 03/04/21 23:42 00:52 01:55 WBC RBC Hgb Hct MCV MCH RDW Seg Neutrophils % Monocytes % (Manual) Seg Neutrophils # Monocytes # (Manual) PT INR D-Dimer Heparin Anti-Xa Level ABG pH POC ABG pCO2 POC ABG pO2 ABG Hemoglobin ABG Oxyhemoglobin ABG Sodium ABG Potassium ABG Chloride ABG Glucose Carboxyhemoglobin Sodium Potassium Chloride Carbon Dioxide BUN Creatinine Glucose POC Glucose 161 H 167 H 119 H Lactic Acid Calcium Phosphorus Magnesium Ferritin Total Bilirubin Direct Bilirubin AST ALT Alkaline Phosphatase Ammonia Lactate Dehydrogenase Troponin T C-Reactive Protein Total Protein Albumin Triglycerides Cholesterol HDL Cholesterol Lipase Arterial Blood Glucose Arterial Blood Ionized Calcium Urine WBC (Auto) Salicylates Acetaminophen Coronavirus (PCR) 03/04/21 03/04/21 03/04/21 02:58 03:47 04:03 WBC RBC Hgb Hct MCV MCH RDW Seg Neutrophils % Monocytes % (Manual) Seg Neutrophils # Monocytes # (Manual) PT INR D-Dimer Heparin Anti-Xa Level ABG pH POC ABG pCO2 57.3 H POC ABG pO2 63.7 L ABG Hemoglobin 8.4 L ABG Oxyhemoglobin 88.6 L ABG Sodium 132.5 L ABG Potassium 3.2 L ABG Chloride 94.0 L ABG Glucose 129 H Carboxyhemoglobin Sodium Potassium Chloride Carbon Dioxide BUN Creatinine Glucose POC Glucose 111 H 122 H Lactic Acid Calcium Phosphorus Magnesium Ferritin Total Bilirubin Direct Bilirubin AST ALT Alkaline Phosphatase Ammonia Lactate Dehydrogenase Troponin T C-Reactive Protein Total Protein Albumin Triglycerides Cholesterol HDL Cholesterol Lipase Arterial Blood Glucose 129 H Arterial Blood Ionized Calcium 3.8 L Urine WBC (Auto) Salicylates Acetaminophen Coronavirus (PCR) 03/04/21 03/04/21 03/04/21 05:15 05:26 05:26 WBC RBC Hgb 7.9 L Hct 23.7 L MCV MCH RDW Seg Neutrophils % Monocytes % (Manual) Seg Neutrophils # Monocytes # (Manual) PT INR D-Dimer Heparin Anti-Xa Level ABG pH POC ABG pCO2 POC ABG pO2 ABG Hemoglobin ABG Oxyhemoglobin ABG Sodium ABG Potassium ABG Chloride ABG Glucose Carboxyhemoglobin Sodium Potassium Chloride Carbon Dioxide BUN Creatinine Glucose POC Glucose 127 H Lactic Acid Calcium Phosphorus Magnesium Ferritin Total Bilirubin Direct Bilirubin 0.6 H AST 123 H ALT 105 H Alkaline Phosphatase 232 H Ammonia Lactate Dehydrogenase Troponin T C-Reactive Protein Total Protein 4.8 L Albumin 2.2 L Triglycerides Cholesterol HDL Cholesterol Lipase Arterial Blood Glucose Arterial Blood Ionized Calcium Urine WBC (Auto) Salicylates Acetaminophen Coronavirus (PCR) 03/04/21 03/04/21 03/04/21 05:26 06:01 06:53 WBC RBC Hgb Hct MCV MCH RDW Seg Neutrophils % Monocytes % (Manual) Seg Neutrophils # Monocytes # (Manual) PT INR D-Dimer Heparin Anti-Xa Level 0.71 H ABG pH POC ABG pCO2 POC ABG pO2 ABG Hemoglobin ABG Oxyhemoglobin ABG Sodium ABG Potassium ABG Chloride ABG Glucose Carboxyhemoglobin Sodium Potassium Chloride Carbon Dioxide BUN Creatinine Glucose POC Glucose 120 H 117 H Lactic Acid Calcium Phosphorus Magnesium Ferritin Total Bilirubin Direct Bilirubin AST ALT Alkaline Phosphatase Ammonia Lactate Dehydrogenase Troponin T C-Reactive Protein Total Protein Albumin Triglycerides Cholesterol HDL Cholesterol Lipase Arterial Blood Glucose Arterial Blood Ionized Calcium Urine WBC (Auto) Salicylates Acetaminophen Coronavirus (PCR) 03/04/21 03/04/21 03/04/21 07:57 10:17 10:17 WBC RBC 2.51 L Hgb 8.3 L Hct 25.3 L MCV 101 H MCH 33 H RDW 18.5 H Seg Neutrophils % Monocytes % (Manual) Seg Neutrophils # Monocytes # (Manual) PT INR D-Dimer Heparin Anti-Xa Level ABG pH POC ABG pCO2 POC ABG pO2 ABG Hemoglobin ABG Oxyhemoglobin ABG Sodium ABG Potassium ABG Chloride ABG Glucose Carboxyhemoglobin Sodium 136 L Potassium Chloride 93.1 L Carbon Dioxide 33 H BUN 46 H Creatinine 1.4 H Glucose 151 H POC Glucose 129 H Lactic Acid Calcium 7.5 L Phosphorus Magnesium Ferritin Total Bilirubin Direct Bilirubin AST 126 H ALT 100 H Alkaline Phosphatase 226 H Ammonia Lactate Dehydrogenase Troponin T C-Reactive Protein Total Protein 5.0 L Albumin 2.2 L Triglycerides Cholesterol HDL Cholesterol Lipase Arterial Blood Glucose Arterial Blood Ionized Calcium Urine WBC (Auto) Salicylates Acetaminophen Coronavirus (PCR) 03/04/21 03/04/21 03/04/21 10:17 10:17 11:26 WBC RBC Hgb Hct MCV MCH RDW Seg Neutrophils % Monocytes % (Manual) Seg Neutrophils # Monocytes # (Manual) PT 15.6 H INR 1.18 H D-Dimer Heparin Anti-Xa Level ABG pH POC ABG pCO2 POC ABG pO2 ABG Hemoglobin ABG Oxyhemoglobin ABG Sodium ABG Potassium ABG Chloride ABG Glucose Carboxyhemoglobin Sodium Potassium Chloride Carbon Dioxide BUN Creatinine Glucose POC Glucose 167 H Lactic Acid Calcium Phosphorus Magnesium Ferritin Total Bilirubin Direct Bilirubin AST ALT Alkaline Phosphatase Ammonia Lactate Dehydrogenase Troponin T C-Reactive Protein Total Protein Albumin Triglycerides Cholesterol HDL Cholesterol Lipase 78 H Arterial Blood Glucose Arterial Blood Ionized Calcium Urine WBC (Auto) Salicylates Acetaminophen Coronavirus (PCR) 03/04/21 03/04/21 03/04/21 13:04 16:26 17:58 WBC RBC Hgb 7.7 L Hct 23.2 L MCV MCH RDW Seg Neutrophils % Monocytes % (Manual) Seg Neutrophils # Monocytes # (Manual) PT INR D-Dimer Heparin Anti-Xa Level < 0.10 L ABG pH POC ABG pCO2 POC ABG pO2 ABG Hemoglobin ABG Oxyhemoglobin ABG Sodium ABG Potassium ABG Chloride ABG Glucose Carboxyhemoglobin Sodium Potassium Chloride Carbon Dioxide BUN Creatinine Glucose POC Glucose 167 H Lactic Acid Calcium Phosphorus Magnesium Ferritin Total Bilirubin Direct Bilirubin AST ALT Alkaline Phosphatase Ammonia Lactate Dehydrogenase Troponin T C-Reactive Protein Total Protein Albumin Triglycerides Cholesterol HDL Cholesterol Lipase Arterial Blood Glucose Arterial Blood Ionized Calcium Urine WBC (Auto) Salicylates Acetaminophen Coronavirus (PCR) 03/04/21 03/05/21 03/05/21 23:47 04:00 05:06 WBC RBC Hgb Hct MCV MCH RDW Seg Neutrophils % Monocytes % (Manual) Seg Neutrophils # Monocytes # (Manual) PT INR D-Dimer Heparin Anti-Xa Level ABG pH POC ABG pCO2 POC ABG pO2 129.1 H ABG Hemoglobin 8.3 L ABG Oxyhemoglobin ABG Sodium 131.4 L ABG Potassium ABG Chloride 95.0 L ABG Glucose 153 H Carboxyhemoglobin Sodium Potassium Chloride Carbon Dioxide BUN Creatinine Glucose POC Glucose 153 H 139 H Lactic Acid Calcium Phosphorus Magnesium Ferritin Total Bilirubin Direct Bilirubin AST ALT Alkaline Phosphatase Ammonia Lactate Dehydrogenase Troponin T C-Reactive Protein Total Protein Albumin Triglycerides Cholesterol HDL Cholesterol Lipase Arterial Blood Glucose 153 H Arterial Blood Ionized Calcium Urine WBC (Auto) Salicylates Acetaminophen Coronavirus (PCR) 03/05/21 03/05/21 03/05/21 11:43 13:35 13:35 WBC RBC 2.38 L Hgb 7.8 L Hct 23.8 L MCV 100 H MCH 33 H RDW 18.2 H Seg Neutrophils % Monocytes % (Manual) Seg Neutrophils # Monocytes # (Manual) PT INR D-Dimer Heparin Anti-Xa Level ABG pH POC ABG pCO2 POC ABG pO2 ABG Hemoglobin ABG Oxyhemoglobin ABG Sodium ABG Potassium ABG Chloride ABG Glucose Carboxyhemoglobin Sodium Potassium Chloride 94.4 L Carbon Dioxide BUN 49 H Creatinine 1.6 H Glucose 165 H POC Glucose 174 H Lactic Acid Calcium 7.5 L Phosphorus Magnesium Ferritin Total Bilirubin Direct Bilirubin AST ALT Alkaline Phosphatase Ammonia Lactate Dehydrogenase Troponin T C-Reactive Protein Total Protein Albumin Triglycerides Cholesterol HDL Cholesterol Lipase Arterial Blood Glucose Arterial Blood Ionized Calcium Urine WBC (Auto) Salicylates Acetaminophen Coronavirus (PCR) 03/05/21 03/05/21 03/05/21 17:57 21:27 Unknown WBC RBC Hgb Hct MCV MCH RDW Seg Neutrophils % Monocytes % (Manual) Seg Neutrophils # Monocytes # (Manual) PT INR D-Dimer Heparin Anti-Xa Level ABG pH POC ABG pCO2 POC ABG pO2 ABG Hemoglobin ABG Oxyhemoglobin ABG Sodium ABG Potassium ABG Chloride ABG Glucose Carboxyhemoglobin Sodium Potassium Chloride Carbon Dioxide BUN Creatinine Glucose POC Glucose 129 H 129 H Lactic Acid Calcium Phosphorus Magnesium Ferritin Total Bilirubin Direct Bilirubin AST ALT Alkaline Phosphatase Ammonia Lactate Dehydrogenase Troponin T C-Reactive Protein Total Protein Albumin Triglycerides Cholesterol HDL Cholesterol Lipase Arterial Blood Glucose Arterial Blood Ionized Calcium Urine WBC (Auto) Salicylates Acetaminophen Coronavirus (PCR) Positive A 03/06/21 03/06/21 03/06/21 03:30 04:30 05:20 WBC 15.2 H RBC 2.48 L Hgb 8.2 L Hct 24.9 L MCV 100 H MCH 33 H RDW 18.6 H Seg Neutrophils % 72.6 H Monocytes % (Manual) Seg Neutrophils # 11.1 H Monocytes # (Manual) PT INR D-Dimer Heparin Anti-Xa Level ABG pH POC ABG pCO2 49.7 H POC ABG pO2 65.1 L ABG Hemoglobin 9.1 L ABG Oxyhemoglobin 90.2 L ABG Sodium 131.2 L ABG Potassium ABG Chloride 96.0 L ABG Glucose 133 H Carboxyhemoglobin Sodium Potassium Chloride Carbon Dioxide BUN Creatinine Glucose POC Glucose Lactic Acid Calcium Phosphorus Magnesium Ferritin Total Bilirubin Direct Bilirubin AST ALT Alkaline Phosphatase Ammonia Lactate Dehydrogenase Troponin T C-Reactive Protein 27.90 H Total Protein Albumin Triglycerides Cholesterol HDL Cholesterol Lipase Arterial Blood Glucose 133 H Arterial Blood Ionized Calcium 4.2 L Urine WBC (Auto) Salicylates Acetaminophen Coronavirus (PCR) 03/06/21 03/06/21 03/06/21 05:20 05:30 11:52 WBC RBC Hgb Hct MCV MCH RDW Seg Neutrophils % Monocytes % (Manual) Seg Neutrophils # Monocytes # (Manual) PT INR D-Dimer Heparin Anti-Xa Level ABG pH POC ABG pCO2 POC ABG pO2 ABG Hemoglobin ABG Oxyhemoglobin ABG Sodium ABG Potassium ABG Chloride ABG Glucose Carboxyhemoglobin Sodium 135 L Potassium Chloride 94.5 L Carbon Dioxide BUN 49 H Creatinine Glucose 121 H POC Glucose 123 H 123 H Lactic Acid Calcium 7.3 L Phosphorus Magnesium 1.50 L Ferritin Total Bilirubin Direct Bilirubin AST 120 H ALT 74 H Alkaline Phosphatase 306 H Ammonia Lactate Dehydrogenase Troponin T C-Reactive Protein Total Protein 4.5 L Albumin 2.0 L Triglycerides Cholesterol HDL Cholesterol Lipase Arterial Blood Glucose Arterial Blood Ionized Calcium Urine WBC (Auto) Salicylates Acetaminophen Coronavirus (PCR) 03/06/21 03/06/21 03/06/21 14:34 17:45 23:36 WBC RBC Hgb Hct MCV MCH RDW Seg Neutrophils % Monocytes % (Manual) Seg Neutrophils # Monocytes # (Manual) PT INR D-Dimer Heparin Anti-Xa Level ABG pH POC ABG pCO2 POC ABG pO2 ABG Hemoglobin ABG Oxyhemoglobin ABG Sodium ABG Potassium ABG Chloride ABG Glucose Carboxyhemoglobin Sodium Potassium Chloride Carbon Dioxide BUN Creatinine Glucose POC Glucose 140 H 209 H Lactic Acid Calcium Phosphorus Magnesium Ferritin Total Bilirubin Direct Bilirubin AST ALT Alkaline Phosphatase Ammonia Lactate Dehydrogenase Troponin T C-Reactive Protein Total Protein Albumin Triglycerides Cholesterol HDL Cholesterol Lipase Arterial Blood Glucose Arterial Blood Ionized Calcium Urine WBC (Auto) 103.0 H Salicylates Acetaminophen Coronavirus (PCR) 03/07/21 03/07/21 03/07/21 03:00 05:32 08:16 WBC RBC Hgb Hct MCV MCH RDW Seg Neutrophils % Monocytes % (Manual) Seg Neutrophils # Monocytes # (Manual) PT INR D-Dimer Heparin Anti-Xa Level ABG pH POC ABG pCO2 POC ABG pO2 ABG Hemoglobin 8.9 L ABG Oxyhemoglobin ABG Sodium 131.4 L ABG Potassium ABG Chloride ABG Glucose 224 H Carboxyhemoglobin Sodium 136 L Potassium Chloride 95.3 L Carbon Dioxide BUN 45 H Creatinine Glucose 210 H POC Glucose 213 H Lactic Acid Calcium 8.0 L Phosphorus Magnesium Ferritin Total Bilirubin 1.30 H Direct Bilirubin AST 144 H ALT 66 H Alkaline Phosphatase 335 H Ammonia Lactate Dehydrogenase Troponin T C-Reactive Protein Total Protein 4.9 L Albumin 2.1 L Triglycerides Cholesterol HDL Cholesterol Lipase Arterial Blood Glucose 224 H Arterial Blood Ionized Calcium 4.3 L Urine WBC (Auto) Salicylates Acetaminophen Coronavirus (PCR) 03/07/21 03/07/21 03/07/21 08:16 08:16 08:16 WBC RBC 2.47 L Hgb 8.2 L Hct 24.6 L MCV 100 H MCH 33 H RDW 18.1 H Seg Neutrophils % Monocytes % (Manual) Seg Neutrophils # Monocytes # (Manual) PT INR D-Dimer 403.72 H Heparin Anti-Xa Level ABG pH POC ABG pCO2 POC ABG pO2 ABG Hemoglobin ABG Oxyhemoglobin ABG Sodium ABG Potassium ABG Chloride ABG Glucose Carboxyhemoglobin Sodium Potassium Chloride Carbon Dioxide BUN Creatinine Glucose POC Glucose Lactic Acid Calcium Phosphorus Magnesium Ferritin Total Bilirubin Direct Bilirubin AST ALT Alkaline Phosphatase Ammonia Lactate Dehydrogenase 453 H Troponin T C-Reactive Protein 32.50 H Total Protein Albumin Triglycerides Cholesterol HDL Cholesterol Lipase Arterial Blood Glucose Arterial Blood Ionized Calcium Urine WBC (Auto) Salicylates Acetaminophen Coronavirus (PCR) 03/07/21 03/07/21 03/07/21 08:16 11:24 17:22 WBC RBC Hgb Hct MCV MCH RDW Seg Neutrophils % Monocytes % (Manual) Seg Neutrophils # Monocytes # (Manual) PT INR D-Dimer Heparin Anti-Xa Level ABG pH POC ABG pCO2 POC ABG pO2 ABG Hemoglobin ABG Oxyhemoglobin ABG Sodium ABG Potassium ABG Chloride ABG Glucose Carboxyhemoglobin Sodium Potassium Chloride Carbon Dioxide BUN Creatinine Glucose POC Glucose 205 H 211 H Lactic Acid Calcium Phosphorus Magnesium Ferritin > 2000.0 H Total Bilirubin Direct Bilirubin AST ALT Alkaline Phosphatase Ammonia Lactate Dehydrogenase Troponin T C-Reactive Protein Total Protein Albumin Triglycerides Cholesterol HDL Cholesterol Lipase Arterial Blood Glucose Arterial Blood Ionized Calcium Urine WBC (Auto) Salicylates Acetaminophen Coronavirus (PCR) 03/07/21 03/08/21 03/08/21 Unknown 00:05 04:00 WBC RBC Hgb Hct MCV MCH RDW Seg Neutrophils % Monocytes % (Manual) Seg Neutrophils # Monocytes # (Manual) PT INR D-Dimer Heparin Anti-Xa Level 0.94 H ABG pH 7.452 H POC ABG pCO2 POC ABG pO2 75.5 L ABG Hemoglobin 10.0 L ABG Oxyhemoglobin 93.5 L ABG Sodium 134.7 L ABG Potassium ABG Chloride ABG Glucose 268 H Carboxyhemoglobin 0.3 L Sodium Potassium Chloride Carbon Dioxide BUN Creatinine Glucose POC Glucose 253 H Lactic Acid Calcium Phosphorus Magnesium Ferritin Total Bilirubin Direct Bilirubin AST ALT Alkaline Phosphatase Ammonia Lactate Dehydrogenase Troponin T C-Reactive Protein Total Protein Albumin Triglycerides Cholesterol HDL Cholesterol Lipase Arterial Blood Glucose 268 H Arterial Blood Ionized Calcium 4.5 L Urine WBC (Auto) Salicylates Acetaminophen Coronavirus (PCR) 03/08/21 03/08/21 03/08/21 05:27 06:10 06:10 WBC RBC 2.62 L Hgb 8.4 L Hct 26.0 L MCV 100 H MCH RDW 18.0 H Seg Neutrophils % Monocytes % (Manual) Seg Neutrophils # Monocytes # (Manual) PT INR D-Dimer Heparin Anti-Xa Level ABG pH POC ABG pCO2 POC ABG pO2 ABG Hemoglobin ABG Oxyhemoglobin ABG Sodium ABG Potassium ABG Chloride ABG Glucose Carboxyhemoglobin Sodium Potassium Chloride Carbon Dioxide BUN 49 H Creatinine Glucose 280 H POC Glucose 273 H Lactic Acid Calcium Phosphorus Magnesium Ferritin Total Bilirubin Direct Bilirubin AST 130 H ALT 68 H Alkaline Phosphatase 440 H Ammonia Lactate Dehydrogenase Troponin T C-Reactive Protein Total Protein 5.3 L Albumin 1.9 L Triglycerides Cholesterol HDL Cholesterol Lipase Arterial Blood Glucose Arterial Blood Ionized Calcium Urine WBC (Auto) Salicylates Acetaminophen Coronavirus (PCR) 03/08/21 03/08/21 03/08/21 11:27 17:56 23:20 WBC RBC Hgb Hct MCV MCH RDW Seg Neutrophils % Monocytes % (Manual) Seg Neutrophils # Monocytes # (Manual) PT INR D-Dimer Heparin Anti-Xa Level ABG pH POC ABG pCO2 POC ABG pO2 ABG Hemoglobin ABG Oxyhemoglobin ABG Sodium ABG Potassium ABG Chloride ABG Glucose Carboxyhemoglobin Sodium Potassium Chloride Carbon Dioxide BUN Creatinine Glucose POC Glucose 258 H 279 H 289 H Lactic Acid Calcium Phosphorus Magnesium Ferritin Total Bilirubin Direct Bilirubin AST ALT Alkaline Phosphatase Ammonia Lactate Dehydrogenase Troponin T C-Reactive Protein Total Protein Albumin Triglycerides Cholesterol HDL Cholesterol Lipase Arterial Blood Glucose Arterial Blood Ionized Calcium Urine WBC (Auto) Salicylates Acetaminophen Coronavirus (PCR) 03/09/21 03/09/21 03/09/21 04:00 05:12 08:00 WBC RBC Hgb Hct MCV MCH RDW Seg Neutrophils % Monocytes % (Manual) Seg Neutrophils # Monocytes # (Manual) PT INR D-Dimer 249.59 H Heparin Anti-Xa Level ABG pH 7.456 H POC ABG pCO2 POC ABG pO2 ABG Hemoglobin 8.9 L ABG Oxyhemoglobin ABG Sodium 135.6 L ABG Potassium ABG Chloride ABG Glucose 298 H Carboxyhemoglobin 0.3 L Sodium Potassium Chloride Carbon Dioxide BUN Creatinine Glucose POC Glucose 267 H Lactic Acid Calcium Phosphorus Magnesium Ferritin Total Bilirubin Direct Bilirubin AST ALT Alkaline Phosphatase Ammonia Lactate Dehydrogenase Troponin T C-Reactive Protein Total Protein Albumin Triglycerides Cholesterol HDL Cholesterol Lipase Arterial Blood Glucose 298 H Arterial Blood Ionized Calcium 4.5 L Urine WBC (Auto) Salicylates Acetaminophen Coronavirus (PCR) 07/03/09/21 03/09/21 08:00 08:00 08:00 WBC RBC Hgb Hct MCV MCH RDW Seg Neutrophils % Monocytes % (Manual) Seg Neutrophils # Monocytes # (Manual) PT INR D-Dimer Heparin Anti-Xa Level ABG pH POC ABG pCO2 POC ABG pO2 ABG Hemoglobin ABG Oxyhemoglobin ABG Sodium ABG Potassium ABG Chloride ABG Glucose Carboxyhemoglobin Sodium Potassium Chloride Carbon Dioxide BUN 44 H Creatinine Glucose 289 H POC Glucose Lactic Acid Calcium Phosphorus Magnesium Ferritin 2743.0 H Total Bilirubin Direct Bilirubin AST 134 H ALT 62 H Alkaline Phosphatase 527 H Ammonia Lactate Dehydrogenase 459 H Troponin T C-Reactive Protein 10.60 H Total Protein 5.0 L Albumin 2.2 L Triglycerides Cholesterol HDL Cholesterol Lipase Arterial Blood Glucose Arterial Blood Ionized Calcium Urine WBC (Auto) Salicylates Acetaminophen Coronavirus (PCR) 03/09/21 03/09/21 03/09/21 08:00 11:52 18:05 WBC RBC 2.60 L Hgb 8.5 L Hct 25.5 L MCV 98 H MCH 33 H RDW 18.1 H Seg Neutrophils % Monocytes % (Manual) Seg Neutrophils # Monocytes # (Manual) PT INR D-Dimer Heparin Anti-Xa Level ABG pH POC ABG pCO2 POC ABG pO2 ABG Hemoglobin ABG Oxyhemoglobin ABG Sodium ABG Potassium ABG Chloride ABG Glucose Carboxyhemoglobin Sodium Potassium Chloride Carbon Dioxide BUN Creatinine Glucose POC Glucose 306 H 293 H Lactic Acid Calcium Phosphorus Magnesium Ferritin Total Bilirubin Direct Bilirubin AST ALT Alkaline Phosphatase Ammonia Lactate Dehydrogenase Troponin T C-Reactive Protein Total Protein Albumin Triglycerides Cholesterol HDL Cholesterol Lipase Arterial Blood Glucose Arterial Blood Ionized Calcium Urine WBC (Auto) Salicylates Acetaminophen Coronavirus (PCR) 03/09/21 03/10/21 03/10/21 23:21 04:38 05:25 WBC RBC Hgb 8.6 L Hct 26.0 L MCV MCH RDW Seg Neutrophils % Monocytes % (Manual) Seg Neutrophils # Monocytes # (Manual) PT INR D-Dimer Heparin Anti-Xa Level ABG pH POC ABG pCO2 POC ABG pO2 ABG Hemoglobin ABG Oxyhemoglobin ABG Sodium ABG Potassium ABG Chloride ABG Glucose Carboxyhemoglobin Sodium Potassium Chloride Carbon Dioxide BUN Creatinine Glucose POC Glucose 306 H 310 H Lactic Acid Calcium Phosphorus Magnesium Ferritin Total Bilirubin Direct Bilirubin AST ALT Alkaline Phosphatase Ammonia Lactate Dehydrogenase Troponin T C-Reactive Protein Total Protein Albumin Triglycerides Cholesterol HDL Cholesterol Lipase Arterial Blood Glucose Arterial Blood Ionized Calcium Urine WBC (Auto) Salicylates Acetaminophen Coronavirus (PCR) 03/10/21 03/10/21 03/10/21 05:25 12:33 12:52 WBC RBC Hgb Hct MCV MCH RDW Seg Neutrophils % Monocytes % (Manual) Seg Neutrophils # Monocytes # (Manual) PT INR D-Dimer Heparin Anti-Xa Level ABG pH 7.487 H POC ABG pCO2 POC ABG pO2 62.1 L ABG Hemoglobin 9.4 L ABG Oxyhemoglobin 89.7 L ABG Sodium ABG Potassium ABG Chloride ABG Glucose 350 H Carboxyhemoglobin 0.2 L Sodium Potassium Chloride Carbon Dioxide 32 H BUN 45 H Creatinine Glucose 341 H POC Glucose 340 H Lactic Acid Calcium Phosphorus Magnesium Ferritin Total Bilirubin Direct Bilirubin AST ALT Alkaline Phosphatase Ammonia Lactate Dehydrogenase Troponin T C-Reactive Protein Total Protein Albumin Triglycerides Cholesterol HDL Cholesterol Lipase Arterial Blood Glucose 350 H Arterial Blood Ionized Calcium Urine WBC (Auto) Salicylates Acetaminophen Coronavirus (PCR) 03/10/21 03/10/21 03/11/21 17:05 22:57 04:58 WBC RBC Hgb Hct MCV MCH RDW Seg Neutrophils % Monocytes % (Manual) Seg Neutrophils # Monocytes # (Manual) PT INR D-Dimer Heparin Anti-Xa Level ABG pH POC ABG pCO2 POC ABG pO2 ABG Hemoglobin ABG Oxyhemoglobin ABG Sodium ABG Potassium ABG Chloride ABG Glucose Carboxyhemoglobin Sodium Potassium Chloride Carbon Dioxide BUN Creatinine Glucose POC Glucose 298 H 241 H 261 H Lactic Acid Calcium Phosphorus Magnesium Ferritin Total Bilirubin Direct Bilirubin AST ALT Alkaline Phosphatase Ammonia Lactate Dehydrogenase Troponin T C-Reactive Protein Total Protein Albumin Triglycerides Cholesterol HDL Cholesterol Lipase Arterial Blood Glucose Arterial Blood Ionized Calcium Urine WBC (Auto) Salicylates Acetaminophen Coronavirus (PCR) 03/11/21 03/11/21 03/11/21 06:54 06:54 06:54 WBC RBC Hgb Hct MCV MCH RDW Seg Neutrophils % Monocytes % (Manual) Seg Neutrophils # Monocytes # (Manual) PT INR D-Dimer 238.43 H Heparin Anti-Xa Level ABG pH POC ABG pCO2 POC ABG pO2 ABG Hemoglobin ABG Oxyhemoglobin ABG Sodium ABG Potassium ABG Chloride ABG Glucose Carboxyhemoglobin Sodium 146 H Potassium Chloride Carbon Dioxide 31 H BUN 41 H Creatinine Glucose 255 H POC Glucose Lactic Acid Calcium Phosphorus Magnesium Ferritin 3346.0 H Total Bilirubin Direct Bilirubin AST ALT Alkaline Phosphatase Ammonia Lactate Dehydrogenase 557 H Troponin T C-Reactive Protein 4.70 H Total Protein Albumin Triglycerides Cholesterol HDL Cholesterol Lipase Arterial Blood Glucose Arterial Blood Ionized Calcium Urine WBC (Auto) Salicylates Acetaminophen Coronavirus (PCR) 03/11/21 03/11/21 03/11/21 06:54 11:25 17:41 WBC RBC 2.76 L Hgb 8.9 L Hct 27.0 L MCV 98 H MCH RDW 18.3 H Seg Neutrophils % Monocytes % (Manual) Seg Neutrophils # Monocytes # (Manual) PT INR D-Dimer Heparin Anti-Xa Level ABG pH POC ABG pCO2 POC ABG pO2 ABG Hemoglobin ABG Oxyhemoglobin ABG Sodium ABG Potassium ABG Chloride ABG Glucose Carboxyhemoglobin Sodium Potassium Chloride Carbon Dioxide BUN Creatinine Glucose POC Glucose 255 H 292 H Lactic Acid Calcium Phosphorus Magnesium Ferritin Total Bilirubin Direct Bilirubin AST ALT Alkaline Phosphatase Ammonia Lactate Dehydrogenase Troponin T C-Reactive Protein Total Protein Albumin Triglycerides Cholesterol HDL Cholesterol Lipase Arterial Blood Glucose Arterial Blood Ionized Calcium Urine WBC (Auto) Salicylates Acetaminophen Coronavirus (PCR) 03/11/21 03/12/21 03/12/21 23:26 04:44 05:16 WBC RBC Hgb Hct MCV MCH RDW Seg Neutrophils % Monocytes % (Manual) Seg Neutrophils # Monocytes # (Manual) PT INR D-Dimer Heparin Anti-Xa Level ABG pH POC ABG pCO2 POC ABG pO2 ABG Hemoglobin ABG Oxyhemoglobin ABG Sodium ABG Potassium ABG Chloride ABG Glucose Carboxyhemoglobin Sodium Potassium Chloride Carbon Dioxide BUN Creatinine Glucose POC Glucose 289 H 255 H Lactic Acid Calcium Phosphorus Magnesium Ferritin Total Bilirubin Direct Bilirubin AST ALT Alkaline Phosphatase Ammonia Lactate Dehydrogenase Troponin T 0.149 H* C-Reactive Protein Total Protein Albumin Triglycerides Cholesterol HDL Cholesterol Lipase Arterial Blood Glucose Arterial Blood Ionized Calcium Urine WBC (Auto) Salicylates Acetaminophen Coronavirus (PCR) 03/12/21 03/12/21 03/12/21 12:02 15:00 17:28 WBC RBC Hgb Hct MCV MCH RDW Seg Neutrophils % Monocytes % (Manual) Seg Neutrophils # Monocytes # (Manual) PT INR D-Dimer Heparin Anti-Xa Level ABG pH POC ABG pCO2 POC ABG pO2 ABG Hemoglobin ABG Oxyhemoglobin ABG Sodium ABG Potassium ABG Chloride ABG Glucose Carboxyhemoglobin Sodium Potassium 3.2 L Chloride Carbon Dioxide BUN 39 H Creatinine 0.7 L Glucose 258 H POC Glucose 237 H 257 H Lactic Acid Calcium 8.3 L Phosphorus Magnesium Ferritin Total Bilirubin 2.20 H Direct Bilirubin AST 181 H ALT 129 H Alkaline Phosphatase 541 H Ammonia Lactate Dehydrogenase Troponin T C-Reactive Protein Total Protein 5.0 L Albumin 2.0 L Triglycerides Cholesterol HDL Cholesterol Lipase Arterial Blood Glucose Arterial Blood Ionized Calcium Urine WBC (Auto) Salicylates Acetaminophen Coronavirus (PCR) 03/12/21 03/12/21 03/13/21 21:51 23:15 05:44 WBC RBC Hgb Hct MCV MCH RDW Seg Neutrophils % Monocytes % (Manual) Seg Neutrophils # Monocytes # (Manual) PT INR D-Dimer Heparin Anti-Xa Level ABG pH POC ABG pCO2 POC ABG pO2 ABG Hemoglobin ABG Oxyhemoglobin ABG Sodium ABG Potassium ABG Chloride ABG Glucose Carboxyhemoglobin Sodium Potassium Chloride Carbon Dioxide BUN Creatinine Glucose POC Glucose 253 H 287 H 247 H Lactic Acid Calcium Phosphorus Magnesium Ferritin Total Bilirubin Direct Bilirubin AST ALT Alkaline Phosphatase Ammonia Lactate Dehydrogenase Troponin T C-Reactive Protein Total Protein Albumin Triglycerides Cholesterol HDL Cholesterol Lipase Arterial Blood Glucose Arterial Blood Ionized Calcium Urine WBC (Auto) Salicylates Acetaminophen Coronavirus (PCR) 03/13/21 03/13/21 03/14/21 17:03 23:31 03:40 WBC RBC Hgb Hct MCV MCH RDW Seg Neutrophils % Monocytes % (Manual) Seg Neutrophils # Monocytes # (Manual) PT INR D-Dimer 475.91 H Heparin Anti-Xa Level ABG pH POC ABG pCO2 POC ABG pO2 ABG Hemoglobin ABG Oxyhemoglobin ABG Sodium ABG Potassium ABG Chloride ABG Glucose Carboxyhemoglobin Sodium Potassium Chloride Carbon Dioxide BUN Creatinine Glucose POC Glucose 228 H 275 H Lactic Acid Calcium Phosphorus Magnesium Ferritin Total Bilirubin Direct Bilirubin AST ALT Alkaline Phosphatase Ammonia Lactate Dehydrogenase Troponin T C-Reactive Protein Total Protein Albumin Triglycerides Cholesterol HDL Cholesterol Lipase Arterial Blood Glucose Arterial Blood Ionized Calcium Urine WBC (Auto) Salicylates Acetaminophen Coronavirus (PCR) 03/14/21 03/14/21 03/14/21 03:40 03:40 03:40 WBC RBC 2.25 L Hgb 7.4 L Hct 22.2 L MCV 99 H MCH 33 H RDW 18.5 H Seg Neutrophils % Monocytes % (Manual) Seg Neutrophils # Monocytes # (Manual) PT INR D-Dimer Heparin Anti-Xa Level ABG pH POC ABG pCO2 POC ABG pO2 ABG Hemoglobin ABG Oxyhemoglobin ABG Sodium ABG Potassium ABG Chloride ABG Glucose Carboxyhemoglobin Sodium Potassium 3.3 L Chloride Carbon Dioxide 37 H D BUN 24 H Creatinine 0.6 L Glucose 180 H POC Glucose Lactic Acid Calcium Phosphorus Magnesium Ferritin 3103.0 H Total Bilirubin 1.60 H Direct Bilirubin AST 283 H ALT 188 H Alkaline Phosphatase 619 H Ammonia Lactate Dehydrogenase 588 H Troponin T C-Reactive Protein 4.00 H Total Protein 4.8 L Albumin 2.2 L Triglycerides Cholesterol HDL Cholesterol Lipase Arterial Blood Glucose Arterial Blood Ionized Calcium Urine WBC (Auto) Salicylates Acetaminophen Coronavirus (PCR) 03/15/21 03/15/21 03/15/21 00:34 05:00 05:00 WBC RBC 2.40 L Hgb 7.8 L Hct 23.6 L MCV 99 H MCH 33 H RDW 18.3 H Seg Neutrophils % Monocytes % (Manual) Seg Neutrophils # Monocytes # (Manual) PT INR D-Dimer Heparin Anti-Xa Level ABG pH POC ABG pCO2 POC ABG pO2 ABG Hemoglobin ABG Oxyhemoglobin ABG Sodium ABG Potassium ABG Chloride ABG Glucose Carboxyhemoglobin Sodium Potassium Chloride Carbon Dioxide BUN Creatinine 0.6 L Glucose 238 H POC Glucose 287 H Lactic Acid Calcium 8.0 L Phosphorus Magnesium Ferritin Total Bilirubin 1.50 H Direct Bilirubin AST 189 H ALT 208 H Alkaline Phosphatase 659 H Ammonia Lactate Dehydrogenase Troponin T C-Reactive Protein Total Protein 5.1 L Albumin 2.1 L Triglycerides Cholesterol HDL Cholesterol Lipase Arterial Blood Glucose Arterial Blood Ionized Calcium Urine WBC (Auto) Salicylates Acetaminophen Coronavirus (PCR) 03/15/21 03/15/21 03/15/21 05:05 11:37 16:34 WBC RBC Hgb Hct MCV MCH RDW Seg Neutrophils % Monocytes % (Manual) Seg Neutrophils # Monocytes # (Manual) PT INR D-Dimer Heparin Anti-Xa Level ABG pH POC ABG pCO2 POC ABG pO2 ABG Hemoglobin ABG Oxyhemoglobin ABG Sodium ABG Potassium ABG Chloride ABG Glucose Carboxyhemoglobin Sodium Potassium Chloride Carbon Dioxide BUN Creatinine Glucose POC Glucose 238 H 236 H 280 H Lactic Acid Calcium Phosphorus Magnesium Ferritin Total Bilirubin Direct Bilirubin AST ALT Alkaline Phosphatase Ammonia Lactate Dehydrogenase Troponin T C-Reactive Protein Total Protein Albumin Triglycerides Cholesterol HDL Cholesterol Lipase Arterial Blood Glucose Arterial Blood Ionized Calcium Urine WBC (Auto) Salicylates Acetaminophen Coronavirus (PCR) 03/15/21 03/16/21 03/16/21 23:05 04:39 05:00 WBC RBC Hgb Hct MCV MCH RDW Seg Neutrophils % Monocytes % (Manual) Seg Neutrophils # Monocytes # (Manual) PT INR D-Dimer Heparin Anti-Xa Level ABG pH POC ABG pCO2 POC ABG pO2 ABG Hemoglobin ABG Oxyhemoglobin ABG Sodium ABG Potassium ABG Chloride ABG Glucose Carboxyhemoglobin Sodium Potassium Chloride Carbon Dioxide 33 H BUN Creatinine 0.5 L Glucose 195 H POC Glucose 336 H 205 H Lactic Acid Calcium Phosphorus Magnesium Ferritin Total Bilirubin Direct Bilirubin AST ALT Alkaline Phosphatase Ammonia Lactate Dehydrogenase Troponin T C-Reactive Protein Total Protein Albumin Triglycerides Cholesterol HDL Cholesterol Lipase Arterial Blood Glucose Arterial Blood Ionized Calcium Urine WBC (Auto) Salicylates Acetaminophen Coronavirus (PCR) 03/16/21 03/17/21 03/17/21 11:37 04:50 13:37 WBC RBC 2.52 L Hgb 8.6 L Hct 25.0 L MCV 99 H MCH 34 H RDW 18.1 H Seg Neutrophils % Monocytes % (Manual) Seg Neutrophils # Monocytes # (Manual) PT INR D-Dimer Heparin Anti-Xa Level ABG pH POC ABG pCO2 POC ABG pO2 ABG Hemoglobin ABG Oxyhemoglobin ABG Sodium ABG Potassium ABG Chloride ABG Glucose Carboxyhemoglobin Sodium Potassium Chloride Carbon Dioxide BUN Creatinine Glucose POC Glucose 222 H 113 H Lactic Acid Calcium Phosphorus Magnesium Ferritin Total Bilirubin Direct Bilirubin AST ALT Alkaline Phosphatase Ammonia Lactate Dehydrogenase Troponin T C-Reactive Protein Total Protein Albumin Triglycerides Cholesterol HDL Cholesterol Lipase Arterial Blood Glucose Arterial Blood Ionized Calcium Urine WBC (Auto) Salicylates Acetaminophen Coronavirus (PCR) 03/17/21 03/17/21 03/17/21 13:37 13:41 18:29 WBC RBC Hgb Hct MCV MCH RDW Seg Neutrophils % Monocytes % (Manual) Seg Neutrophils # Monocytes # (Manual) PT INR D-Dimer Heparin Anti-Xa Level ABG pH POC ABG pCO2 POC ABG pO2 ABG Hemoglobin ABG Oxyhemoglobin ABG Sodium ABG Potassium ABG Chloride ABG Glucose Carboxyhemoglobin Sodium Potassium 3.5 L Chloride Carbon Dioxide BUN Creatinine 0.4 L Glucose 174 H POC Glucose 176 H 180 H Lactic Acid Calcium Phosphorus Magnesium Ferritin Total Bilirubin Direct Bilirubin AST ALT Alkaline Phosphatase Ammonia Lactate Dehydrogenase Troponin T C-Reactive Protein Total Protein Albumin Triglycerides Cholesterol HDL Cholesterol Lipase Arterial Blood Glucose Arterial Blood Ionized Calcium Urine WBC (Auto) Salicylates Acetaminophen Coronavirus (PCR) 03/17/21 03/18/21 03/18/21 23:06 05:50 07:53 WBC RBC 2.46 L Hgb 7.9 L Hct 24.5 L MCV 100 H MCH RDW 18.0 H Seg Neutrophils % Monocytes % (Manual) Seg Neutrophils # Monocytes # (Manual) PT INR D-Dimer Heparin Anti-Xa Level ABG pH POC ABG pCO2 POC ABG pO2 ABG Hemoglobin ABG Oxyhemoglobin ABG Sodium ABG Potassium ABG Chloride ABG Glucose Carboxyhemoglobin Sodium Potassium Chloride Carbon Dioxide BUN Creatinine Glucose POC Glucose 127 H 108 H Lactic Acid Calcium Phosphorus Magnesium Ferritin Total Bilirubin Direct Bilirubin AST ALT Alkaline Phosphatase Ammonia Lactate Dehydrogenase Troponin T C-Reactive Protein Total Protein Albumin Triglycerides Cholesterol HDL Cholesterol Lipase Arterial Blood Glucose Arterial Blood Ionized Calcium Urine WBC (Auto) Salicylates Acetaminophen Coronavirus (PCR) 03/18/21 03/18/21 03/18/21 07:53 07:53 11:43 WBC RBC Hgb Hct MCV MCH RDW Seg Neutrophils % Monocytes % (Manual) Seg Neutrophils # Monocytes # (Manual) PT INR D-Dimer Heparin Anti-Xa Level ABG pH POC ABG pCO2 POC ABG pO2 ABG Hemoglobin ABG Oxyhemoglobin ABG Sodium ABG Potassium ABG Chloride ABG Glucose Carboxyhemoglobin Sodium Potassium Chloride Carbon Dioxide 31 H BUN Creatinine 0.4 L Glucose POC Glucose 158 H Lactic Acid Calcium 8.3 L Phosphorus Magnesium Ferritin Total Bilirubin Direct Bilirubin AST ALT Alkaline Phosphatase Ammonia Lactate Dehydrogenase Troponin T 0.185 H* C-Reactive Protein Total Protein Albumin Triglycerides Cholesterol HDL Cholesterol Lipase Arterial Blood Glucose Arterial Blood Ionized Calcium Urine WBC (Auto) Salicylates Acetaminophen Coronavirus (PCR) Chest x-ray: report reviewed, image reviewed Prior PFT's, U/S of legs: report reviewed, image reviewed Additional Studies: CHEST 1 VIEW 03/14/2021 11:55 PM INDICATION / CLINICAL INFORMATION: Pneumonia. COMPARISON: 03/12/21 FINDINGS: SUPPORT DEVICES: Left PICC is unchanged. HEART / MEDIASTINUM: Stable. LUNGS / PLEURA: Bibasilar pleural-parenchymal densities are unchanged. No pneumothorax. ADDITIONAL FINDINGS: No significant additional findings. IMPRESSION: 1. No significant change. DUPLEX DOPPLER LOWER EXTREMITY VEINS, BILATERAL 03/04/21 INDICATION / CLINICAL INFORMATION: Lower extremity swelling TECHNIQUE: Duplex doppler imaging was performed through the veins of both lower extremities using venous compression and other maneuvers. COMPARISON: None available. FINDINGS: RIGHT COMMON FEMORAL VEIN: Negative. RIGHT FEMORAL VEIN: Negative. RIGHT POPLITEAL VEIN: Negative. RIGHT CALF VEINS: There is occlusive thrombus in the right posterior tibial vein. LEFT COMMON FEMORAL VEIN: Negative. LEFT FEMORAL VEIN: Negative. LEFT POPLITEAL VEIN: Negative. LEFT CALF VEINS: Negative. ADDITIONAL FINDINGS: None. IMPRESSION: 1. Occlusive thrombus in the right posterior tibial vein. The remainder of the veins are patent. Allied health notes reviewed: nursing
[2021-03-18] MEDS: INSULIN GLARGINE 100 UNITS/ML SUB-Q SCH (22:25)
[2021-03-19] MEDS: INSULIN REGULAR, HUMAN 100 UNITS/1 ML SUB-Q SCH ×4 (02:47→18:00)
[2021-03-19] MEDS: PREGABALIN 50 MG CAP PO SCH ×3 (08:00→21:42)
[2021-03-19] MEDS: hydrALAZINE 25 MG TAB PO SCH (08:00)
--- NOTE | 2021-03-19 08:29 | Progress Note ---
Assessment and Plan Assessment and plan: This is a a 51 year old male admitted for for severe sepsis, respiratory failure, pneumonia and ALPHONSO. PMH: COPD, CHF, DM, DVT/PE, HTN, KAM, obesity, asthma PSx: none reported home meds: albuterol sulfate, advair, HCTZ, atrovent, glucophage, Klor-Con, midodrine, metoprolol, lasix, lantus, coumadin (from audit and home meds reconciliation) Social: unknown A/P Neuro: Metabolic encephalopathy -Resolving -Now extbated Cardio: SR/ST: Acute on Chronic HFpEF (per cards), NSTEMI, h/o HTN, HLD, Prolonged QTc, SVT -Cardiology consulted, appreciate recommendations -midodrine d/c r/t HTN -BP monitoring per protocol -Labetalol PO -Per cardiology: 1. gentle IV diuresis when able 2. Echo 12/13/2020 - EF 55-60%, otherwise technically difficult study. Echo 05/2016 - LV mildly dilated, EF 55-60%, grade II diastolic dysfxn, RV mildly enlarged, normal RV sys fxn, LA mildly dilated, RA mildly dilated, mild-mod AR, mild VT, mild aortic root dilatation. Resp: Acute on chronic hypoxic respiratory failure, Bilateral PNA, hx COPD, KAM, asthma, ?PE -CCM consulted, appreciate recommendations -MV, wean as tolerated -Intubated 03/01, tube exchange 03/09 OETT 8/0 @ 25 lip -nOW EXTUBATED 03/10 -Continuos SPO2 monitoring -abx with levaquin (03/02-03/07)-DC 03/05 r/t prolonged QTc -03/01 CT chest shows several pulmonary nodules within Right lung measuring 6-8 mm, increased interstitial prominence -? f/u outpt with PCP/pulmanology -03/10 CXR reviewed GI: Transaminitis, TF -GI consulted, appreciate recommendations -Trend LFTs -RUQ US shows no evidence of cholelithiasis, cholecytitis or choledocholithisis -CT abd/pelvis showed fatty infiltration of liver -Ntr consult for TF -PPI -BR [place] -last BM 03/06 -24 hr net (-) 225 : ALPHONSO (stable/resolved) -Nephrology consulted, appreciate recommendations -Pt was on HD at recent hospitalization at OSH -Renally dose mediations -Avoid nephrotoxic medications -Strict I&Os -Renal US shows no significant abnormality -Daily weights -Replete electrolytes -Trend BMP -s/p lasix x 2, prn hydral -Trial lasix again today Heme: DVT-R posterior tibial vein, h/o LLE DVT (December 2019)/ PE (failed Xa inhibitors per cards; on home coumadin) -evidenced on BLE Doppler US -Heparin gtt d/c to lovenox subq (03/09) -SCDs while in bed -Per cards: Eventually plan to transition to Coumadin ID: Severe Sepsis, B PNA, COVID 19 infection -s/p abx therapy (azithromycin 03/01-03/02, aztreonam 03/02, cefepime 03/01-03/02, levaquin 03/02-03/05, flagyl 03/01-03/02, vancomycin 03/01-03/02) -VAP bundle -MRSA (+) nares -COVID 19 PCR (+) -Decadron for 10 days (03/06-03/15) -Remdesivir (03/06-03/10) -Contact/Droplet precautions -03/01 BCx2 with NGTD, UC with NGTD, sputum culture normal sole -03/06 BC NGTD -Prone if needed -Vit C/D/Zinc Endo: DM -SSI, lantus (titrate as needed) -Accuchecks q6 -Avoid hypoglycemia FEN: Hypokalemia, Hypomagenesmia- Replace lines: condom cath, PIV, RADHA Disposition: ICU Full code The high probability of a clinically significant, sudden or life threatening deterioration of the [multi] system(s) required my full and direct attention, intervention and personal management. The aggregate critical care time was [40] minutes. This time is in addition to time spent performing reported procedures but includes the following: [x] Data Review and interpretation [x] Patient assessment and monitoring of vital signs [x] Documentation [x] Medication orders and management History Interval history: This is a 51-year-old -Malaysian male with COPD with chronic respiratory failure, CHFpEF, diabetes mellitus, DVT/PE on coumadin and hypertension who p resented to [facility] via EMS for AMS and hypoxia. On arrival of EMS oxygen saturation was about 88% on room air, blood pressure was said to be about 88/50 mmHg. Work-up in the emergency room reveals leukocytosis of 12.7, hemoglobin of 9.1 and hematocrit of 27.7, sodium of 132, lactic acid of 2.90, elevated liver enzymes and elevated troponin at 0.493. A CT of the chest showed findings concerning for atelectasis and or infiltrate, CT of the head was unremarkable. Patient was in severe respiratory distress upon arrival in the emergency room and subsequently intubated. Patient was admitted to the hospitalist service with consults to cardiology, CCM, GI, and neprohology for severe sepsis, respiratory failure, pneumonia and ALPHONSO. Of note patient was admitted to [facility] from 12/12-01/14 and was on HD during that admit. 03/03/21: Patient remains intubated, continue on heparin drip, monitor H&H and BMP. Continue empiric antibiotics, ID following. Follow ammonia level and LFT. According to cardiology patient indeed had preserved EF during his recent admission to [facility]. Plan to repeat 2D echo. Critical care following, wean off from vent as tolerated. 03/04: RN reported blood y secretions in OETT and clots, heparin gtt stopped and B LE US obtained which shows DVT, abx deescalated, heparin gtt restarted. 03/05: RN reported vomiting x1, promithazine x1 given, Qtc at 599 on EKG. AM labs pending. tmax 102.2, reculture with next spike, COVID 19 PCR. abx stopped re prolonged qtc and received CAP coverage. 03/06: Reported high TF residual, COVID PCR pending. Cr better today. tmax 100.7 03/07: radha placed yesterday, started on remdesivir re positive covid. ID consulted yesterday. SHERYL overnight. 03/08: SHERYL reported overnight. Patient is now hypertensive and midodrine has been held. Will now place on low dose antihtn and prn hydral. 03/09: Patient reportedly through tube and OETT was exchanged, patient was given paralytic for exchange. No acute events reported overnight. Patient noted to be hypertensive and we will trial Lasix again today. 03/10: PSV trial today. fentayl was stopped. BP maintaining. SHERYL overnight. 03/11: Patient was extuabted, awaiting Speech therapy, discussed with nursing staff at bedside, considering Hypertensive urgency, will do a bedside swallow eval and give oral meds if passed. Continue aspiration precautions. The patient has hx of Asthma, continue neb treatment. 03/12: Patient remains in ICU care secondary to SVT and unstable hemodynamics. Cardiology reevaluated patient was given adenosine and started on amnio drip. Still awaiting speech therapy evaluation although considering her current condition we will keep the patient n.p.o. Case discussed with set up mechanic coating machines and criminal investigator. Monitor electrolytes and correct as needed. 03/13: Patient this morning remains in normal sinus rhythm following the adenosine and amnio drip which is still going the latter I mean. I will start the patient on Lasix for 3 days and monitor her renal function. Patient is already on high dose of dexamethasone considering his history of bronchospasm disease. We will repeat a pulmonary evaluation we will correct electrolytes especially with the Lasix. CCT 35 pLAN DISCUSSED WITH THE PATIENT AND NURSE 03/14: Patient unfortunately is declining continues on high flow -70% intermittent altered mental status refusing all treatment plan. Psych saw the patient recommended Geodon as needed. Will transition some medications to IV. Continue encouraging patient to use BiPAP. Continue nebulizer treatment and steroid therapy. Pulmonary and cardiology input also appreciated. 03/15: Patient seen and examined, continue to wean oxygen flow as tolerated, Electrolytes replacement protocol inplace, LFT still elevated but trending down some. Again counselling provided to the patient about compliance. Adjust insulin. 03/16: Patient down to 50% FiO2 was saturating 92%. [facility]. Clinically he is showing some improvement. Continue restraints for supportive care continue to monitor for intermittent delirium. 03/17: Patient still with intermittent delirium sometimes refusing medication. Restraints has been renewed for safety as he did take off his oxygen yesterday and desatted to the 70s. His saturation is back to 90-92% with FiO2 of 50% of the high flow. Continue supportive care pulmonary input and ID input noted. 03/18: Continue full supportive care, ideally prone if able, called to update family, continue supportive care, patient treated with -IV/PO Dexamethasone 10 mg daily x 10 days, higher dose due to morbid obesity. Ended 03/15/2021 -Completed Remdesivir still high risk due to hypoxia treatment being complicated by the delirium 03/19; patient is on 30 L of high flow oxygen with FiO2 of 96%. Patient completed remdesivir and Decadron. Patient is still high risk because of hypoxia. Patient has right posterior tibial vein occlusive thrombus and on therapeutic Lovenox. History Interval history: Patient was seen and evaluated this morning Patient was on 30 L of high flow oxygen with FiO2 of 96% Patient said he is breathing okay Hospitalist Physical - Physical exam Narrative exam: Patient is on 30 L high flow oxygen with FiO2 of 96% The patient is morbidly obese. Vital signs as documented. Head exam is unremarkable. No scleral icterus . Neck is without jugular venous distension, thyromegaly, or carotid bruits. Lungs decreased air entry. Cardiac exam reveals regular rate and Rhythm. Abdominal exam reveals normal bowel sounds, nontender, no organomegaly. Extremities are nonedematous and both femoral and pedal pulses are normal. DISC INSPECTOR: Confused. Moves extremities. - Constitutional Vitals: Temp Pulse Resp BP Pulse Ox 99.4 F 102 H 20 98/60 92 03/19/21 04:49 03/18/21 20:43 03/19/21 04:49 03/19/21 04:49 03/19/21 08:18 General appearance: Present: no acute distress, well-nourished, obese, other (sedated) HEART Score - HEART Score Troponin: Troponin T 0.185 ng/mL (0.00-0.029) H* 03/18/21 07:53 Results - Labs CBC & Chem 7: 03/18/21 07:53 03/18/21 07:53 Labs: Laboratory Last Values WBC 8.6 K/mm3 (4.5-11.0) 03/18/21 07:53 RBC 2.46 M/mm3 (3.65-5.03) L 03/18/21 07:53 Hgb 7.9 gm/dl (11.8-15.2) L 03/18/21 07:53 Hct 24.5 % (35.5-45.6) L 03/18/21 07:53 MCV 100 fl (84-94) H 03/18/21 07:53 MCH 32 pg (28-32) 03/18/21 07:53 MCHC 32 % (32-34) 03/18/21 07:53 RDW 18.0 % (13.2-15.2) H 03/18/21 07:53 Plt Count 294 K/mm3 (140-440) 03/18/21 07:53 Lymph % (Auto) 22.4 % (13.4-35.0) 03/06/21 05:20 Custer % (Auto) 4.5 % (0.0-7.3) 03/06/21 05:20 Eos % (Auto) 0.2 % (0.0-4.3) 03/06/21 05:20 Baso % (Auto) 0.3 % (0.0-1.8) 03/06/21 05:20 Lymph # (Auto) 3.4 K/mm3 (1.2-5.4) 03/06/21 05:20 Custer # (Auto) 0.7 K/mm3 (0.0-0.8) 03/06/21 05:20 Eos # (Auto) 0.0 K/mm3 (0.0-0.4) 03/06/21 05:20 Baso # (Auto) 0.1 K/mm3 (0.0-0.1) 03/06/21 05:20 Add Manual Diff Complete 03/01/21 19:21 Total Counted 100 03/01/21 19:21 Seg Neutrophils % 72.6 % (40.0-70.0) H 03/06/21 05:20 Seg Neuts % (Manual) 49.0 % (40.0-70.0) 03/01/21 19:21 Lymphocytes % (Manual) 32.0 % (13.4-35.0) 03/01/21 19:21 Monocytes % (Manual) 17.0 % (0.0-7.3) H 03/01/21 19:21 Eosinophils % (Manual) 1.0 % (0.0-4.3) 03/01/21 19:21 Basophils % (Manual) 1.0 % (0.0-1.8) 03/01/21 19:21 Nucleated RBC % Not Reportable 03/01/21 19:21 Seg Neutrophils # 11.1 K/mm3 (1.8-7.7) H 03/06/21 05:20 Seg Neutrophils # Man 6.2 K/mm3 (1.8-7.7) 03/01/21 19:21 Band Neutrophils # 0.0 K/mm3 03/01/21 19:21 Lymphocytes # (Manual) 4.1 K/mm3 (1.2-5.4) 03/01/21 19:21 Abs React Lymphs (Man) 0.0 K/mm3 03/01/21 19:21 Monocytes # (Manual) 2.2 K/mm3 (0.0-0.8) H 03/01/21 19:21 Eosinophils # (Manual) 0.1 K/mm3 (0.0-0.4) 03/01/21 19:21 Basophils # (Manual) 0.1 K/mm3 (0.0-0.1) 03/01/21 19:21 Metamyelocytes # 0.0 K/mm3 03/01/21 19:21 Myelocytes # 0.0 K/mm3 03/01/21 19:21 Promyelocytes # 0.0 K/mm3 03/01/21 19:21 Blast Cells # 0.0 K/mm3 03/01/21 19:21 WBC Morphology Not Reportable 03/01/21 19:21 Hypersegmented Neuts Not Reportable 03/01/21 19:21 Hyposegmented Neuts Not Reportable 03/01/21 19:21 Hypogranular Neuts Not Reportable 03/01/21 19:21 Smudge Cells Not Reportable 03/01/21 19:21 Toxic Granulation Not Reportable 03/01/21 19:21 Toxic Vacuolation Not Reportable 03/01/21 19:21 Dohle Bodies Not Reportable 03/01/21 19:21 Pelger-Huet Anomaly Not Reportable 03/01/21 19:21 Katherine Rods Not Reportable 03/01/21 19:21 Platelet Estimate Not Reportable 03/01/21 19:21 Clumped Platelets Not Reportable 03/01/21 19:21 Plt Clumps, EDTA Not Reportable 03/01/21 19:21 Large Platelets Not Reportable 03/01/21 19:21 Giant Platelets Not Reportable 03/01/21 19:21 Platelet Satelliting Not Reportable 03/01/21 19:21 Plt Morphology Comment Not Reportable 03/01/21 19:21 RBC Morphology Not Reportable 03/01/21 19:21 Dimorphic RBCs Not Reportable 03/01/21 19:21 Polychromasia Not Reportable 03/01/21 19:21 Hypochromasia Not Reportable 03/01/21 19:21 Poikilocytosis Not Reportable 03/01/21 19:21 Anisocytosis Rare 03/01/21 19:21 Microcytosis Not Reportable 03/01/21 19:21 Macrocytosis Not Reportable 03/01/21 19:21 Spherocytes Not Reportable 03/01/21 19:21 Pappenheimer Bodies Not Reportable 03/01/21 19:21 Sickle Cells Not Reportable 03/01/21 19:21 Target Cells Not Reportable 03/01/21 19:21 Tear Drop Cells Not Reportable 03/01/21 19:21 Ovalocytes Not Reportable 03/01/21 19:21 Helmet Cells Not Reportable 03/01/21 19:21 Quinones-[place] Bodies Not Reportable 03/01/21 19:21 [place] Rings Not Reportable 03/01/21 19:21 Dusty Cells Not Reportable 03/01/21 19:21 Bite Cells Not Reportable 03/01/21 19:21 Crenated Cell Not Reportable 03/01/21 19:21 Elliptocytes Not Reportable 03/01/21 19:21 Acanthocytes (Spur) Not Reportable 03/01/21 19:21 Rouleaux Not Reportable 03/01/21 19:21 Hemoglobin C Crystals Not Reportable 03/01/21 19:21 Schistocytes Few 03/01/21 19:21 Malaria parasites Not Reportable 03/01/21 19:21 Henry Bodies Not Reportable 03/01/21 19:21 Hem Pathologist Commnt No 03/01/21 19:21 PT 15.6 Sec. (12.2-14.9) H 03/04/21 10:17 INR 1.18 (0.87-1.13) H 03/04/21 10:17 APTT 36.6 Sec. (24.2-36.6) 03/02/21 16:28 D-Dimer 475.91 ng/mlDDU (0-234) H 03/14/21 03:40 Heparin Anti-Xa Level 0.64 U.I./ml (0.3-0.7) 03/08/21 10:30 ABG pH 7.487 (7.320-7.450) H 03/10/21 12:33 POC ABG pCO2 40.4 mmHg (32.0-48.0) 03/10/21 12:33 POC ABG pO2 62.1 mmHg (83-108) L 03/10/21 12:33 POC ABG HCO3 29.9 03/10/21 12:33 ABG O2 Saturation 90.2 (0-100) 03/10/21 12:33 POC ABG Base Excess 6.0 03/10/21 12:33 ABG Hemoglobin 9.4 (12.0-17.5) L 03/10/21 12:33 ABG Oxyhemoglobin 89.7 (94-98) L 03/10/21 12:33 ABG Methemoglobin 0.3 (0.0-1.5) 03/10/21 12:33 ABG Sodium 138.7 mmol/L (136.0-145.0) 03/10/21 12:33 ABG Potassium 3.7 mmol/L (3.40-4.50) 03/10/21 12:33 ABG Chloride 104.0 mmol/L (98-107) 03/10/21 12:33 ABG Glucose 350 mg/dL (65-95) H 03/10/21 12:33 Carboxyhemoglobin 0.2 (0.5-1.5) L 03/10/21 12:33 FiO2 % 35.0 03/10/21 12:33 Sodium 144 mmol/L (137-145) 03/18/21 07:53 Potassium 3.6 mmol/L (3.6-5.0) 03/18/21 07:53 Chloride 103.1 mmol/L (98-107) 03/18/21 07:53 Carbon Dioxide 31 mmol/L (22-30) H 03/18/21 07:53 Anion Gap 14 mmol/L 03/18/21 07:53 BUN 10 mg/dL (9-20) 03/18/21 07:53 Creatinine 0.4 mg/dL (0.8-1.3) L 03/18/21 07:53 Estimated GFR > 60 ml/min 03/18/21 07:53 BUN/Creatinine Ratio 25 % 03/18/21 07:53 Glucose 98 mg/dL (75-100) 03/18/21 07:53 POC Glucose 107 mg/dL (70-105) H 03/19/21 04:48 Lactic Acid 1.70 mmol/L (0.7-2.0) 03/04/21 10:17 Calcium 8.3 mg/dL (8.4-10.2) L 03/18/21 07:53 Phosphorus 2.60 mg/dL (2.5-4.5) 03/16/21 05:00 Magnesium 1.80 mg/dL (1.7-2.3) 03/16/21 05:00 Ferritin 3103.0 ng/mL (30.0-300.0) H 03/14/21 03:40 Total Bilirubin 1.50 mg/dL (0.1-1.2) H 03/15/21 05:00 Direct Bilirubin 0.6 mg/dL (0-0.2) H 03/04/21 05:26 Indirect Bilirubin 0.2 mg/dL 03/04/21 05:26 AST 189 units/L (5-40) H 03/15/21 05:00 ALT 208 units/L (7-56) H 03/15/21 05:00 Alkaline Phosphatase 659 units/L (35-129) H 03/15/21 05:00 Ammonia 71.0 umol/L (25-60) H 03/01/21 19:21 Lactate Dehydrogenase 588 units/L (91-180) H 03/14/21 03:40 Troponin T 0.185 ng/mL (0.00-0.029) H* 03/18/21 07:53 C-Reactive Protein 4.00 mg/dL (0.00-1.30) H 03/14/21 03:40 Total Protein 5.1 g/dL (6.3-8.2) L 03/15/21 05:00 Albumin 2.1 g/dL (3.9-5) L 03/15/21 05:00 Albumin/Globulin Ratio 0.7 % 03/15/21 05:00 Triglycerides 400 mg/dL (2-149) H 03/01/21 19:21 Cholesterol 232 mg/dL (50-199) H 03/01/21 19:21 LDL Cholesterol Direct 130 mg/dL (50-130) 03/01/21 19:21 HDL Cholesterol 22 mg/dL (40-59) L 03/01/21 19:21 Cholesterol/HDL Ratio 10.54 % 03/01/21 19:21 Lipase 78 units/L (13-60) H 03/04/21 10:17 Procalcitonin 1.18 ng/mL (<0.15) 03/08/21 06:10 TSH 1.840 mlU/mL (0.270-4.200) 03/03/21 04:06 Arterial Blood Glucose 350 mg/dL (65-95) H 03/10/21 12:33 Arterial Blood Ionized Calcium 4.6 mg/dL (4.6-5.3) 03/10/21 12:33 Urine Color Ariadne (Yellow) 03/06/21 14:34 Urine Turbidity Cloudy (Clear) 03/06/21 14:34 Urine pH 5.0 (5.0-7.0) 03/06/21 14:34 Ur Specific Lamont 1.014 (1.003-1.030) 03/06/21 14:34 Urine Protein 30 mg/dl mg/dL (Negative) 03/06/21 14:34 Urine Glucose (UA) Neg mg/dL (Negative) 03/06/21 14:34 Urine Ketones Neg mg/dL (Negative) 03/06/21 14:34 Urine Blood Sm (Negative) 03/06/21 14:34 Urine Nitrite Neg (Negative) 03/06/21 14:34 Urine Bilirubin Neg (Negative) 03/06/21 14:34 Urine Urobilinogen 4.0 mg/dL (<2.0) 03/06/21 14:34 Ur Leukocyte Esterase Neg (Negative) 03/06/21 14:34 Urine WBC (Auto) 103.0 /HPF (0.0-6.0) H 03/06/21 14:34 Urine RBC (Auto) 105.0 /HPF (0.0-6.0) 03/06/21 14:34 U Epithel Cells (Auto) 5.0 /HPF (0-13.0) 03/06/21 14:34 Urine Bacteria (Auto) 2+ /HPF (Negative) 03/06/21 14:34 Hyaline Casts 5 /LPF 03/06/21 14:34 Urine Mucus 1+ /HPF 03/06/21 14:34 Urine Yeast (Budding) Few /HPF 03/01/21 21:40 Urine Sperm 3+ /HPF (STRIP MILL OPERATOR) 03/06/21 14:34 Nasal Screen MRSA (PCR) Positive (Negative) 03/02/21 05:00 Salicylates < 0.3 mg/dL (2.8-20.0) L 03/01/21 19:21 Urine Opiates Screen Positive 03/01/21 21:40 Urine Methadone Screen Negative 03/01/21 21:40 Acetaminophen 5.0 ug/mL (10.0-30.0) L 03/01/21 19:21 Ur Barbiturates Screen Negative 03/01/21 21:40 Ur Phencyclidine Scrn Negative 03/01/21 21:40 Ur Amphetamines Screen Negative 03/01/21 21:40 U Benzodiazepines Scrn Negative 03/01/21 21:40 Urine Cocaine Screen Negative 03/01/21 21:40 U Marijuana (THC) Screen Negative 03/01/21 21:40 Drugs of Abuse Note Disclamer 03/01/21 21:40 KARLA Screen Negative (Negative) 03/03/21 04:06 Coronavirus (PCR) Positive (Negative) A 03/05/21 Unknown Blood Type O POSITIVE 03/01/21 19:21 Antibody Screen Negative 03/01/21 19:21 Vilchis/IV: Voiding Method Incontinent Active Medications - Current Medications Current Medications: Generic Name Dose Route Start Last Admin Trade Name Freq PRN Reason Stop Dose Admin Acetaminophen 650 mg 03/06/21 10:00 03/06/21 12:33 Acetaminophen 325 Mg/10.15 Ml Oral Liqd Unit Dose FEEDTUBE 650 mg Q6H PRN Administration Pain MILD(1-3)/Fever >100.5/VALDES Albuterol 2.5 mg 03/02/21 15:45 03/11/21 23:05 Albuterol 2.5 Mg/3 Ml Nebu IH 2.5 mg Q4H PRN Administration Shortness Of Breath Lipase/Protease/Amylase 1 each 03/03/21 10:53 Lipase 10,500/Protease 25,000/Amylase 43,750 (Units) Dr Gutierrez FEEDTUBE PRN PRN For Clogged Feeding Tube Ascorbic Acid 500 mg 03/06/21 22:00 03/18/21 22:29 Ascorbic Acid 500 Mg Tab PO Not Given BID KYLE Aspirin 81 mg 03/04/21 10:00 03/18/21 09:38 Aspirin 81 Mg Tab Chew PO 81 mg QDAY KYLE Administration Cholecalciferol 5,000 unit 03/17/21 11:00 03/18/21 09:37 Cholecalciferol (Vit D3) 5,000 Unit Tab PO 5,000 unit QDAY KYLE Administration Clonazepam 0.5 mg 03/16/21 12:43 Clonazepam 0.5 Mg Tab PO BID PRN Anxiety Dextrose 50 ml 03/02/21 11:38 Dextrose 50% In Water (25gm) 50 Ml Syringe IV Q30MIN PRN Hypoglycemia Protocol Enoxaparin Sodium 130 mg 03/09/21 11:00 03/18/21 22:28 Enoxaparin 150 Mg/1 Ml Inj SUB-Q Not Given Q12HR [facility] Protocol Famotidine 20 mg 03/04/21 10:00 03/18/21 22:16 Famotidine 20 Mg Tab PO 20 mg BID KYLE Administration Furosemide 80 mg 03/17/21 11:00 03/18/21 09:37 Furosemide 40 Mg Tab PO 80 mg QDAY [facility] Administration Guaifenesin 600 mg 03/11/21 22:00 03/18/21 22:26 Guaifenesin Er 600 Mg Tab PO Not Given BID [facility] Hydralazine HCl 10 mg 03/09/21 08:21 03/11/21 22:03 Hydralazine 20 Mg/1 Ml Inj IV 10 mg Q4H PRN Administration Hypertension Hydralazine HCl 25 mg 03/11/21 14:00 03/18/21 22:24 Hydralazine 25 Mg Tab PO Not Given TID [facility] Hydrophilic Ointment 1 applic 03/02/21 15:42 Lip Therapy Vaseline TP Q2H PRN Dry Lips Sodium Chloride 1,000 mls @ 1 mls/hr 03/06/21 18:11 Nacl 0.9% 500 Ml IV DIRECT PRN ARTERIAL LINE FLUSH Insulin Glargine 30 units 03/16/21 22:00 03/18/21 22:25 Insulin Glargine 100 Units/Ml SUB-Q Not Given QHS [facility] Insulin Human Regular 0 units 03/10/21 18:00 03/19/21 06:33 Insulin Regular, Human 100 Units/1 Ml SUB-Q Not Given Q6HR [facility] Protocol Labetalol HCl 100 mg 03/11/21 14:00 03/18/21 22:24 Labetalol 100 Mg Tab PO Not Given TID KYLE Magnesium Hydroxide 30 ml 03/02/21 00:18 Magnesium Hydroxide (Mom) Oral Liqd Udc PO Q4H PRN Constipation Metoprolol Tartrate 5 mg 03/12/21 14:15 03/12/21 14:40 Metoprolol Tartrate 5 Mg/5 Ml Inj IV 5 mg Q6HR PRN Administration Tachyarrhythmias Miscellaneous Medication 145 mcg 03/17/21 10:00 Linaclotide [Linzess] PO QDAY KYLE Multi-Ingred Cream/Lotion/Oil/Oint 1 applic 03/02/21 15:42 Mineral Oil/Petrolatum, White Ophth Oint 3.5 Gm OU Q4HR PRN Dry Eye(s) Multivitamins/Minerals 1 each 03/03/21 22:00 03/18/21 22:26 Calcium Carb/Vit D3/Minerals 600 Mg/800 Units Tab PO Not Given BID KYLE Pregabalin 50 mg 03/17/21 14:00 03/18/21 22:25 Pregabalin 50 Mg Cap PO Not Given TID KYLE Senna/Docusate Sodium 1 tab 03/02/21 22:00 03/18/21 22:29 Sennosides/Docusate Sodium 8.6/50 Mg Tab FEEDTUBE Not Given BID KYLE Simple Syrup 15 ml 03/03/21 10:53 Simple Syrup 15 Ml FEEDTUBE PRN PRN Hypoglycemia Simple Syrup 30 ml 03/03/21 10:53 Simple Syrup 15 Ml FEEDTUBE PRN PRN Hypoglycemia Sodium Bicarbonate 325 mg 03/03/21 10:53 Sodium Bicarbonate 325 Mg Tab FEEDTUBE PRN PRN For Clogged Feeding Tube Sodium Chloride 10 ml 03/02/21 10:00 03/18/21 22:27 Sodium Chloride 0.9% 10 Ml Flush Syringe IV Not Given BID KYLE Sodium Chloride 10 ml 03/02/21 00:18 Sodium Chloride 0.9% 10 Ml Flush Syringe IV PRN PRN LINE FLUSH Zinc Sulfate 220 mg 03/06/21 16:00 03/18/21 22:28 Zinc Sulfate 220 Mg Cap PO Not Given BID KYLE Ziprasidone 20 mg 03/14/21 11:18 Ziprasidone Mesylate 20 Mg Vial IM Q6H PRN Agitation Zolpidem Tartrate 5 mg 03/13/21 17:55 03/18/21 00:50 Zolpidem 5 Mg Tab PO 5 mg QHS PRN Administration Sleep Nutrition/Malnutrition Assess - Dietary Evaluation Nutrition/Malnutrition Findings: Nutrition Notes Start: 03/02/21 10:10 Freq: Status: Active Protocol: Document 03/15/21 13:07 (Rec: 03/15/21 13:29 [email or web address]) Nutrition Notes Initial or Follow up Reassessment Current Diagnosis Acute Kidney Injury,COPD, Diabetes,Sepsis,Hypertension, Heart Failure,Respiratory Failure Other Pertinent Diagnosis pneu, AMS, COVID(+) Current Diet Cardiac Labs/Tests POC [phone] Pertinent Medications reviewed Height 5 ft 10 in Weight 131 kg [place] Body Weight (kg) 75.45 BMI 41.4 Subjective/Other Information Unable to speak with pt. RN reports pt ate one apple sauce and he states he isn't hungry . He did not eat breakfast or lunch. Burn Absent Trauma Absent Current % PO Negligible Minimum of two criteria No Fluid Accumulation Mild (non-severe) #1 Nutrition Diagnosis Inadequate oral intake As Evidenced by Signs and Symptoms pt eating 0% of meals Diagnosis Progress(for reassessment Continues documentation) Is patient on ventilator? No Is Patient Ambulatory and/or Out of Bed No REE-([facility]-confined to bed) 2614.728 Kcal/Kg value to use for calculation 16 Approximate Energy Requirements Using 2096 kcal/Kg Calculation Used for Recommendations Kcal/kg Additional Notes Pro needs up to 2.5g/klg IBW: up to 189g/day Fluid needs 1ml/kcal Nutrition Intervention Change Diet Order: continue Add Supplement/Snack (indicate name/kcal Glucerna daily /protein ) Provides kCal: 220 Provides Protein (gm) 10 Goal #1 PO tolerance Goal #2 PO intake to meet at least 75% energy and pro needs Follow-Up By: 03/19/21 Additional Comments F/u: intakes and ONS tolerance
[2021-03-19] MEDS: ASCORBIC ACID 500 MG TAB PO SCH ×2 (10:00→21:42)
[2021-03-19] MEDS: CALCIUM CARB/VIT D3/MINERALS 600 MG/800 UNITS TAB PO SCH ×2 (10:01→21:41)
[2021-03-19] MEDS: ASPIRIN 81 MG TAB CHEW PO SCH (10:01)
[2021-03-19] MEDS: SENNOSIDES/DOCUSATE SODIUM 8.6/50 MG TAB FEEDTUBE SCH ×2 (10:01→21:42)
[2021-03-19] MEDS: FUROSEMIDE 40 MG TAB PO SCH (10:01)
[2021-03-19] MEDS: ZINC SULFATE 220 MG CAP PO SCH ×2 (10:02→21:42)
[2021-03-19] MEDS: CHOLECALCIFEROL (VIT D3) 5,000 UNIT TAB PO SCH (10:02)
[2021-03-19] MEDS: ENOXAPARIN 150 MG/1 ML INJ SUB-Q SCH ×2 (10:02→21:41)
[2021-03-19] MEDS: FAMOTIDINE 20 MG TAB PO SCH ×2 (10:02→21:42)
[2021-03-19] MEDS: guaiFENesin ER 600 MG TAB PO SCH ×2 (10:03→23:31)
--- NOTE | 2021-03-19 10:29 | Progress Note ---
Assessment and Plan SVT * Patient had SVT into 180s on 03/12/2021. Resolved after being given Adenosine 6mg IV. Patient was then started on Amio gtt * Patient sinus tachycardia with runs of SVT on monitor * Optimize rate control: Discontinue labetolol and hydralizine. Initiate Cardizem 60mg PO Q6hrs. * Recieved call from nurse on 03/19/2021 around 11:45am that patient heart rate was in 170s-180s. Upon review of telemetry the patient was in SVT 180s. Code was called and patient given 6mg of adenosine. Patient converted back to sinus tach 100s. Hypertension * Discontinue labetolol and hydralizine. Initiate Cardizem 60mg PO Q6hrs. HFpEF * Echo 12/13/2020 - EF 55-60%, otherwise technically difficult study. * Echo 05/2016 - LV mildly dilated, EF 55-60%, grade II diastolic dysfxn, RV mildly enlarged, normal RV sys fxn, LA mildly dilated, RA mildly dilated, mild-mod AR, mild NC, mild aortic root dilatation. COVID-19 PNA Acute hypoxic resporitary failure * Patient positive for COVID-19 * Pulmonology and infectious disease are following History of Altered Mental Status * Patient intermittently altered * Maagement per primary team DVT of RLE * Patient on Enoxaparin 130mg SQ BID . Plan to transition to Coumadin once patient is hemodynamically stable * He was diagnosed with a LLE DVT in March 2020 and appears to have been on Coumadin as an outpatient. Discontinue labetolol and hydralizine. Initiate Cardizem 60mg PO Q6hrs for rate and arrhythmia control. Continue to monitor. Patient seen in conjunction with Dr. Kim who agrees with this plan of care. Will continue to follow. - Patient Problems (1) ALPHONSO (acute kidney injury) Current Visit: Yes Status: Acute (2) Acute and chronic respiratory failure ([id number]) Current Visit: Yes Status: Acute (3) Acute deep vein thrombosis (DVT) of right lower extremity Current Visit: Yes Status: Acute (4) Encephalopathy Current Visit: Yes Status: Acute (5) NSTEMI (non-ST elevated myocardial infarction) Current Visit: Yes Status: Acute (6) Transaminitis Current Visit: Yes Status: Acute (7) COPD (chronic obstructive pulmonary disease) Current Visit: Yes Status: Chronic (8) Chronic heart failure with preserved ejection fraction (HFpEF) Current Visit: Yes Status: Chronic (9) DM2 (diabetes mellitus, type 2) Current Visit: Yes Status: Chronic (10) H/O: HTN (hypertension) Current Visit: Yes Status: Chronic (11) History of pulmonary embolus (PE) Current Visit: Yes Status: Chronic (12) COVID-19 Current Visit: Yes Status: Acute Subjective Date of service: 03/19/21 Principal diagnosis: Ac hypoxemic resp failure; NSTEMI; ALPHONSO; Sepsis; PNA; CHF; DM II; AMS Interval history: Patient sitting in bed slightly confused Sinus tachycardia 100s with runs of SVT on monitor Objective Last Vital Signs Temp 99.4 F 03/19/21 04:49 Pulse 102 H 03/18/21 20:43 Resp 20 03/19/21 04:49 BP 98/60 03/19/21 04:49 Pulse Ox 94 03/19/21 09:15 - Physical Examination General: No Apparent Distress HEENT: Positive: PERRL, Normocephaly Neck: Positive: trachea midline Cardiac: Positive: Regular Rhythm, Tachycardia Lungs: Positive: Decreased Breath Sounds Neuro: Positive: Grossly Intact Abdomen: Positive: Soft Skin: Negative: Rash Incision: Cardiac Cath Site Musculoskeletal: No Fluid Collection Extremities: Present: upper extr. pulses, lower extr. pulses, warm, Other (anasarca). Absent: edema - Imaging and Cardiology EKG: report reviewed, image reviewed Echo: report reviewed (12/2020 - EF 55-60%) Cardiac cath: pending - Telemetry EKG Rhythm: Sinus Tachycardia - EKG Sinus rhythms and dysrhythmias: sinus tachycardia Ventricular dysrhythmias: supraventricular captures AV and intraventricular conduction: right bundle branch block Repolarization changes or abnormalities: nonspecific abnormality, ST segment, and/or T wave - Allied health notes Allied health notes reviewed: nursing
[2021-03-19] MEDS: dilTIAZem 60 MG TAB PO SCH ×2 (11:29→18:00)
--- NOTE | 2021-03-19 12:09 | Progress Note ---
Subjective - Reason for Consult Consult date: 03/19/21 Reason for consult: Mental health eval - Chief Complaint Chief complaint: The patient was seen resting quietly in bed, he reports doing well. He denies being depressed or having excessive anxiety. The patient reports sleep and appetite as good. He denies any current suicidal/homicidal ideation and denies hallucinations. REVIEW OF SYSTEMS Constitutional: Negative for weight loss ENT: Negative for stridor Respiratory: Negative for cough or hemoptysis All other systems reviewed and are negative MENTAL STATUS EXAMINATION General Appearance and Behavior: Age appropriate, good hygiene, wearing appropriate clothes, cooperative, cooperative Cooperation: Participating/engaged Psychomotor Behavior: normal Mood: "ok" Affect and affective range: congruent with stated mood Thought Process: goal directed Thought Content: Not Suicidal Speech: Normal volume, Regular rate and rhythm Suicidal Ideation: Denies Homicidal Ideation: Denies Hallucinations: Denies Delusions: None elicited Impulse Control: impaired Insight and Judgment: limited insight and judgment, Memory: normal Attention: Normal Orientation: Alert, oriented Assessment and Plan (1) Current Visit: Yes Status: Acute Treatment Plan Sitter: Per primary Medical: Per primary Disposition: Do not recommend acute psychiatric inpatient treatment. The patient understands that if suicidal/homicidal ideas or any endangering thoughts/ behaviors arise, they should seek immediate assistance including but not limited to crisis hotline and emergency room. The patient will follow up with outpatient referrals provided by the mental health machine binding folder. Will sign off. Thanks Case staffed with Dr. Guillermo Medications and Allergies (1) Altered Mental Status Treatment Plan Geodon 20mg IM q6h prn agitation Sitter: per primary Medical: Per primary Disposition: Do not recommend acute psychiatric inpatient treatment. The patient has complex and acute medical conditions that are likely causing his alteration in mental status. Will follow sign off. Thanks Case staffed with Dr. Guillermo Mental Status Exam - Vital signs Last Vital Signs Temp 99.4 F 03/19/21 04:49 Pulse 102 H 03/18/21 20:43 Resp 20 03/19/21 04:49 BP 98/60 03/19/21 04:49 Pulse Ox 94 03/19/21 09:15
--- NOTE | 2021-03-19 12:21 | Event Note ---
Date: 03/19/21 Recieved call around 1145 that patient heart rate was in 170s-180s. Upon review of telemetry the patient was in SVT 180s. Code was called and patient given 6mg of adenosine. Patient converted back to sinus tach 103.
--- NOTE | 2021-03-19 12:43 | Progress Note ---
Assessment and Plan Cultures: SARS CoV2 PCR: Positive MRSA nasal PCR: Positive 03/01/2021 blood culture: No growth 03/01/2021 urine culture: No growth 03/02/2021 tracheal aspirate: Merlyn albicans 03/06/2021 blood culture: no growth 03/06/2021 urine culture: No growth A/P: 51-year-old male with COPD, chronic respiratory failure, CHF, diabetes, DVT/PE, morbid obesity on anticoagulation was admitted to the hospital on 03/01/2021 with altered mental status and shortness of breath: #Bilateral pneumonia: secondary to COVID-19. Completed empiric antibiotics. #Acute hypoxic respiratory failure: Now extubated, on high flow nasal cannula #Morbid obesity #Acute on chronic CHF #Transaminitis: Likely from COVID-19. Elevated LFTs with elevated alkaline phosphatase: RUQ ultrasound did not reveal any evidence of cholelithiasis, cholecystitis or choledocholithiasis. #Acute RLE DVT: On anticoagulation Recs: -Completed 10 days steroids. -Completed Remdesivir -Completed empiric antibiotics -on anticoagulation Kamar Schrader MD [facility] O: [phone] F: [phone] Subjective Date of service: 03/19/21 Principal diagnosis: Ac hypoxemic resp failure; NSTEMI; ALPHONSO; Sepsis; PNA; CHF; DM II; AMS Interval history: Afebrile, normal white count. On high flow nasal cannula. Objective - Exam Narrative Exam: Physical exam deferred to reduce risk of transmission of COVID-19. Please refer to primary team's note. - Constitutional Vitals: Vital Signs Temp Pulse Resp BP Pulse Ox 99.4 F 102 H 20 98/60 94 03/19/21 04:49 03/18/21 20:43 03/19/21 04:49 03/19/21 04:49 03/19/21 09:15 Temperature -Last 24 Hours Temperature 99.4 F Temperature 98.7 F - Labs CBC & Chem 7: 03/18/21 07:53 03/18/21 07:53 Labs: Abnormal lab results 03/18/21 03/18/21 03/19/21 Range/Units 16:36 18:03 04:48 POC Glucose 133 H 130 H 107 H (70-105) mg/dL
[2021-03-19] MEDS: INSULIN GLARGINE 100 UNITS/ML SUB-Q SCH (22:16)
--- NOTE | 2021-03-19 22:21 | Progress Note ---
Assessment and Plan 51-year-old -[place] male with known history of COPD, CHF, diabetes mellitus, DVT and hypertension was brought into the emergency room by EMS for altered mental status and hypoxia. According to EMS patient was discharged from [facility] after treatment for CHF exacerbation. Patient was found to be altered upon waking up and on arrival of EMS oxygen saturation was about 88% on room air, blood pressure was said to be about 88/50 mmHg.Was subsequently placed on 5 L of oxygen by nasal cannula with improvement in his oxygen saturation. According to who was by the bedside patient was having some mild cough which was nonproductive. He has had no fever or chills. There has been no nausea or vomiting or abdominal pain. Patient has been fully vaccinated against COVID-19. Work-up in the emergency room, labs reveals leukocytosis of 12.7, hemoglobin of 9.1 and hematocrit of 27.7, sodium of 132, lactic acid of 2.90. Liver enzymes were abnormally elevated, troponin was also bumped at 0.493. CT of the chest shows findings concerning for atelectasis and or infiltrate, CT of the head was unremarkable. Patient was in severe respiratory distress upon arrival in the emergency room and subsequently intubated. Patient currently being admitted for mainly severe sepsis, respiratory failure, pneumonia and ALPHONSO. Patient is asleep, on vapotherm, FIO2 50% and O2 sat 95%. BIPAP stand by in the room. He is in no acute respiratory distress. Patient is afebrile. Has no leukocytosis. Hemoglobin 7.9. Hematocrit 24.9. Troponin: 0.185. Patient's Sanchez virus PCR is Positive. Cxray on 03/14/21 reported: reported Bibasilar pleural-parenchymal densities . No pneumothorax. No significant change in comparison to 03/12/21. Patients venous duplex studies done 03/04/21 reported Occlusive thrombus in the right posterior tibial vein. The remainder of the veins are patent. Patient is currently on albuterol, Mucinex, Enoxaparin in therapeutic dose and Pepcid. I spent critical care time of 32 minutes reviewing the chart, Examine the patient , review chst xray and venous doppler studies, review lab results, talking to the nursing and respiratory therapy staff and work out plan of treatment in this critically ill COVID Positive patient. - Patient Problems (1) Acute and chronic respiratory failure ([id number]) Current Visit: Yes Status: Acute Plan to address problem: Vapotherm, FIO2 50% Albuterol inhaler 2 puffs po q 4 hours prn for shortness of breath. S/C Lovenox Famotidine (2) Acute deep vein thrombosis (DVT) of right lower extremity Current Visit: Yes Status: Acute Plan to address problem: Continue S/C Lovenox in therapeutic dose. (3) ALPHONSO (acute kidney injury) Current Visit: Yes Status: Acute Plan to address problem: Management as per primary team and nephrology. (4) CHF (congestive heart failure) Current Visit: Yes Status: Acute Plan to address problem: Management as per primary team and cardiology (5) COVID-19 Current Visit: Yes Status: Acute Plan to address problem: Patient Positive for Sanchez virus PCR. Management as per infectious diseases. (6) COPD (chronic obstructive pulmonary disease) Current Visit: Yes Status: Chronic Plan to address problem: Vapotherm, FIO2 50% Albuterol inhaler 2 puffs po q 4 hours prn for shortness of breath. S/C Lovenox Famotidine PFTs as out when his condition improves. (7) DM2 (diabetes mellitus, type 2) Current Visit: Yes Status: Chronic Plan to address problem: Management as per primary team. (8) KAM (obstructive sleep apnea) Current Visit: Yes Status: Chronic Plan to address problem: BIPAP stand by in the room BIPAP during night time. Recommend sleep study as out patient. (9) Tobacco abuse Current Visit: Yes Status: Chronic Plan to address problem: Will family and marriage counsellor on smoking cessation. Subjective Date of service: 03/19/21 Principal diagnosis: Ac hypoxemic resp failure; NSTEMI; ALPHONSO; Sepsis; PNA; CHF; DM II; AMS Interval history: 51-year-old -[place] male with known history of COPD, CHF, diabetes mellitus, DVT and hypertension was brought into the emergency room by EMS for altered mental status and hypoxia. According to EMS patient was discharged from [facility] after treatment for CHF exacerbation. Patient was found to be altered upon waking up and on arrival of EMS oxygen saturation was about 88% on room air, blood pressure was said to be about 88/50 mmHg.Was subsequently placed on 5 L of oxygen by nasal cannula with improvement in his oxygen saturation. According to who was by the bedside patient was having some mild cough which was nonproductive. He has had no fever or chills. There has been no nausea or vomiting or abdominal pain. Patient has been fully vaccinated against COVID-19. Work-up in the emergency room, labs reveals leukocytosis of 12.7, hemoglobin of 9.1 and hematocrit of 27.7, sodium of 132, lactic acid of 2.90. Liver enzymes were abnormally elevated, troponin was also bumped at 0.493. CT of the chest shows findings concerning for atelectasis and or infiltrate, CT of the head was unremarkable. Patient was in severe respiratory distress upon arrival in the emergency room and subsequently intubated. Patient currently being admitted for mainly severe sepsis, respiratory failure, pneumonia and ALPHONSO. Patient is asleep, on vapotherm, FIO2 50% and O2 sat 95%. BIPAP stand by in the room. He is in no acute respiratory distress. Patient is afebrile. Has no leukocytosis. Hemoglobin 7.9. Hematocrit 24.9. Troponin: 0.185. Patient's Sanchez virus PCR is Positive. Cxray on 03/14/21 reported: reported Bibasilar pleural-parenchymal densities . No pneumothorax. No significant change in comparison to 03/12/21. Patients venous duplex studies done 03/04/21 reported Occlusive thrombus in the right posterior tibial vein. The remainder of the veins are patent. Patient is currently on albuterol, Mucinex, Enoxaparin in therapeutic dose and Pepcid. Objective Vital Signs - 12hr 03/19/21 03/19/21 03/19/21 10:25 15:15 17:05 Temperature 98.7 F 98.9 F Pulse Rate 187 H 104 H Respiratory 23 23 Rate Blood Pressure 127/66 113/74 [Right] O2 Sat by Pulse 92 95 95 Oximetry 03/19/21 03/19/21 03/19/21 20:58 21:56 21:58 Temperature 98.5 F Pulse Rate 107 H Respiratory 20 Rate Blood Pressure 134/97 [Right] O2 Sat by Pulse 94 97 Oximetry Constitutional: no acute distress, asleep, other (middle aged obese male with mildly increased respiratory effort at rest) Eyes: non-icteric ENT: oropharynx moist, other (extubated) Neck: supple, no lymphadenopathy, no JVD, other (large circumference) Effort: mildly labored Ascultation: Bilateral: diminished breath sounds, rhonchi (posterior bases) Percussion: Bilateral: not dull Cardiovascular: other (tachycardic) Gastrointestinal: normoactive bowel sounds, soft, non-tender, non-distended (protuberant) Integumentary: normal Extremities: no cyanosis, pulses normal, no ischemia or petechiae, edema (trace) Neurologic: pupils equal and round, other (Unable to assess as patient is asleep) Psychiatric: other (Unable to assess as patient is asleep) CBC and BMP: 03/18/21 07:53 03/18/21 07:53 ABG, PT/INR, D-dimer: ABG ABG pH 7.487 (7.320-7.450) H 03/10/21 12:33 POC ABG pCO2 40.4 mmHg (32.0-48.0) 03/10/21 12:33 POC ABG pO2 62.1 mmHg (83-108) L 03/10/21 12:33 POC ABG HCO3 29.9 03/10/21 12:33 ABG O2 Saturation 90.2 (0-100) 03/10/21 12:33 PT/INR, D-dimer PT 15.6 Sec. (12.2-14.9) H 03/04/21 10:17 INR 1.18 (0.87-1.13) H 03/04/21 10:17 D-Dimer 475.91 ng/mlDDU (0-234) H 03/14/21 03:40 Abnormal lab findings: Abnormal Labs 03/01/21 03/01/21 03/01/21 19:15 19:21 19:21 WBC 12.7 H RBC 2.77 L Hgb 9.1 L Hct 27.7 L MCV 100 H MCH 33 H RDW 18.0 H Seg Neutrophils % Monocytes % (Manual) 17.0 H Seg Neutrophils # Monocytes # (Manual) 2.2 H PT INR D-Dimer Heparin Anti-Xa Level ABG pH POC ABG pCO2 POC ABG pO2 64.9 L ABG Hemoglobin 9.3 L ABG Oxyhemoglobin 93.0 L ABG Sodium 133.8 L ABG Potassium ABG Chloride 97.0 L ABG Glucose 191 H Carboxyhemoglobin Sodium Potassium Chloride Carbon Dioxide BUN Creatinine Glucose POC Glucose Lactic Acid Calcium Phosphorus Magnesium Ferritin Total Bilirubin Direct Bilirubin AST ALT Alkaline Phosphatase Ammonia Lactate Dehydrogenase Troponin T 0.493 H* C-Reactive Protein Total Protein Albumin Triglycerides 400 H Cholesterol 232 H HDL Cholesterol 22 L Lipase Arterial Blood Glucose 191 H Arterial Blood Ionized Calcium 4.4 L Urine WBC (Auto) Salicylates Acetaminophen Coronavirus (PCR) 03/01/21 03/01/21 03/01/21 19:21 19:21 19:21 WBC RBC Hgb Hct MCV MCH RDW Seg Neutrophils % Monocytes % (Manual) Seg Neutrophils # Monocytes # (Manual) PT 16.6 H INR 1.28 H D-Dimer Heparin Anti-Xa Level ABG pH POC ABG pCO2 POC ABG pO2 ABG Hemoglobin ABG Oxyhemoglobin ABG Sodium ABG Potassium ABG Chloride ABG Glucose Carboxyhemoglobin Sodium 132 L Potassium Chloride 92.2 L Carbon Dioxide BUN 43 H Creatinine 2.4 H Glucose 190 H POC Glucose Lactic Acid 2.90 H* Calcium Phosphorus Magnesium Ferritin Total Bilirubin 1.60 H Direct Bilirubin 1.2 H AST 275 H ALT 156 H Alkaline Phosphatase 282 H Ammonia Lactate Dehydrogenase Troponin T C-Reactive Protein Total Protein 5.8 L Albumin 2.6 L Triglycerides Cholesterol HDL Cholesterol Lipase 120 H Arterial Blood Glucose Arterial Blood Ionized Calcium Urine WBC (Auto) Salicylates Acetaminophen Coronavirus (PCR) 03/01/21 03/01/21 03/01/21 19:21 19:21 19:21 WBC RBC Hgb Hct MCV MCH RDW Seg Neutrophils % Monocytes % (Manual) Seg Neutrophils # Monocytes # (Manual) PT INR D-Dimer Heparin Anti-Xa Level ABG pH POC ABG pCO2 POC ABG pO2 ABG Hemoglobin ABG Oxyhemoglobin ABG Sodium ABG Potassium ABG Chloride ABG Glucose Carboxyhemoglobin Sodium Potassium Chloride Carbon Dioxide BUN Creatinine Glucose POC Glucose Lactic Acid Calcium Phosphorus Magnesium Ferritin Total Bilirubin Direct Bilirubin AST ALT Alkaline Phosphatase Ammonia 71.0 H Lactate Dehydrogenase Troponin T C-Reactive Protein Total Protein Albumin Triglycerides Cholesterol HDL Cholesterol Lipase Arterial Blood Glucose Arterial Blood Ionized Calcium Urine WBC (Auto) Salicylates < 0.3 L Acetaminophen 5.0 L Coronavirus (PCR) 03/01/21 03/01/21 03/02/21 20:55 20:55 00:01 WBC RBC Hgb Hct MCV MCH RDW Seg Neutrophils % Monocytes % (Manual) Seg Neutrophils # Monocytes # (Manual) PT INR D-Dimer Heparin Anti-Xa Level ABG pH 7.234 L POC ABG pCO2 POC ABG pO2 240.5 H ABG Hemoglobin 9.3 L ABG Oxyhemoglobin 99.1 H ABG Sodium 135.3 L ABG Potassium ABG Chloride ABG Glucose 286 H Carboxyhemoglobin 0.3 L Sodium Potassium Chloride Carbon Dioxide BUN Creatinine Glucose POC Glucose Lactic Acid 4.30 H* Calcium Phosphorus Magnesium Ferritin Total Bilirubin Direct Bilirubin AST ALT Alkaline Phosphatase Ammonia Lactate Dehydrogenase Troponin T 0.484 H* C-Reactive Protein Total Protein Albumin Triglycerides Cholesterol HDL Cholesterol Lipase Arterial Blood Glucose 286 H Arterial Blood Ionized Calcium Urine WBC (Auto) Salicylates Acetaminophen Coronavirus (PCR) 03/02/21 03/02/21 03/02/21 03:42 05:23 06:35 WBC RBC Hgb Hct MCV MCH RDW Seg Neutrophils % Monocytes % (Manual) Seg Neutrophils # Monocytes # (Manual) PT INR D-Dimer Heparin Anti-Xa Level ABG pH 7.225 L POC ABG pCO2 POC ABG pO2 181.8 H ABG Hemoglobin 9.4 L ABG Oxyhemoglobin 98.6 H ABG Sodium 132.1 L ABG Potassium 5.0 H ABG Chloride ABG Glucose 454 H Carboxyhemoglobin 0.3 L Sodium Potassium Chloride Carbon Dioxide BUN Creatinine Glucose POC Glucose 410 H Lactic Acid 7.50 H* Calcium Phosphorus Magnesium Ferritin Total Bilirubin Direct Bilirubin AST ALT Alkaline Phosphatase Ammonia Lactate Dehydrogenase Troponin T C-Reactive Protein Total Protein Albumin Triglycerides Cholesterol HDL Cholesterol Lipase Arterial Blood Glucose 454 H Arterial Blood Ionized Calcium 4.2 L Urine WBC (Auto) Salicylates Acetaminophen Coronavirus (PCR) 03/02/21 03/02/21 03/02/21 10:48 10:48 10:48 WBC RBC Hgb Hct MCV MCH RDW Seg Neutrophils % Monocytes % (Manual) Seg Neutrophils # Monocytes # (Manual) PT INR D-Dimer Heparin Anti-Xa Level ABG pH POC ABG pCO2 POC ABG pO2 ABG Hemoglobin ABG Oxyhemoglobin ABG Sodium ABG Potassium ABG Chloride ABG Glucose Carboxyhemoglobin Sodium 132 L Potassium Chloride 93.3 L Carbon Dioxide 20 L BUN 46 H Creatinine 1.9 H Glucose 503 H* POC Glucose Lactic Acid 3.40 H* Calcium 7.9 L Phosphorus 5.80 H Magnesium Ferritin Total Bilirubin Direct Bilirubin AST ALT Alkaline Phosphatase Ammonia Lactate Dehydrogenase Troponin T C-Reactive Protein Total Protein Albumin Triglycerides Cholesterol HDL Cholesterol Lipase Arterial Blood Glucose Arterial Blood Ionized Calcium Urine WBC (Auto) Salicylates Acetaminophen Coronavirus (PCR) 03/02/21 03/02/21 03/02/21 11:23 11:38 15:33 WBC RBC Hgb Hct MCV MCH RDW Seg Neutrophils % Monocytes % (Manual) Seg Neutrophils # Monocytes # (Manual) PT INR D-Dimer Heparin Anti-Xa Level ABG pH 7.318 L POC ABG pCO2 POC ABG pO2 ABG Hemoglobin 9.2 L ABG Oxyhemoglobin ABG Sodium 133.2 L ABG Potassium ABG Chloride ABG Glucose 504 H Carboxyhemoglobin 0.3 L Sodium Potassium Chloride Carbon Dioxide BUN Creatinine Glucose POC Glucose 468 H 445 H Lactic Acid Calcium Phosphorus Magnesium Ferritin Total Bilirubin Direct Bilirubin AST ALT Alkaline Phosphatase Ammonia Lactate Dehydrogenase Troponin T C-Reactive Protein Total Protein Albumin Triglycerides Cholesterol HDL Cholesterol Lipase Arterial Blood Glucose 504 H Arterial Blood Ionized Calcium 4.2 L Urine WBC (Auto) Salicylates Acetaminophen Coronavirus (PCR) 03/02/21 03/02/21 03/02/21 16:28 16:28 16:28 WBC RBC Hgb 8.8 L Hct 26.0 L MCV MCH RDW Seg Neutrophils % Monocytes % (Manual) Seg Neutrophils # Monocytes # (Manual) PT 15.2 H INR 1.14 H D-Dimer Heparin Anti-Xa Level ABG pH POC ABG pCO2 POC ABG pO2 ABG Hemoglobin ABG Oxyhemoglobin ABG Sodium ABG Potassium ABG Chloride ABG Glucose Carboxyhemoglobin Sodium 135 L Potassium Chloride 93.8 L Carbon Dioxide BUN 48 H Creatinine 1.8 H Glucose 454 H POC Glucose Lactic Acid Calcium 7.6 L Phosphorus Magnesium Ferritin Total Bilirubin Direct Bilirubin AST ALT Alkaline Phosphatase Ammonia Lactate Dehydrogenase Troponin T C-Reactive Protein Total Protein Albumin Triglycerides Cholesterol HDL Cholesterol Lipase Arterial Blood Glucose Arterial Blood Ionized Calcium Urine WBC (Auto) Salicylates Acetaminophen Coronavirus (PCR) 03/02/21 03/02/21 03/02/21 17:39 18:52 20:09 WBC RBC Hgb Hct MCV MCH RDW Seg Neutrophils % Monocytes % (Manual) Seg Neutrophils # Monocytes # (Manual) PT INR D-Dimer Heparin Anti-Xa Level ABG pH POC ABG pCO2 POC ABG pO2 ABG Hemoglobin ABG Oxyhemoglobin ABG Sodium ABG Potassium ABG Chloride ABG Glucose Carboxyhemoglobin Sodium Potassium Chloride Carbon Dioxide BUN Creatinine Glucose POC Glucose 404 H 357 H 347 H Lactic Acid Calcium Phosphorus Magnesium Ferritin Total Bilirubin Direct Bilirubin AST ALT Alkaline Phosphatase Ammonia Lactate Dehydrogenase Troponin T C-Reactive Protein Total Protein Albumin Triglycerides Cholesterol HDL Cholesterol Lipase Arterial Blood Glucose Arterial Blood Ionized Calcium Urine WBC (Auto) Salicylates Acetaminophen Coronavirus (PCR) 03/02/21 03/02/21 03/02/21 21:03 22:00 22:55 WBC RBC Hgb Hct MCV MCH RDW Seg Neutrophils % Monocytes % (Manual) Seg Neutrophils # Monocytes # (Manual) PT INR D-Dimer Heparin Anti-Xa Level ABG pH POC ABG pCO2 POC ABG pO2 ABG Hemoglobin ABG Oxyhemoglobin ABG Sodium ABG Potassium ABG Chloride ABG Glucose Carboxyhemoglobin Sodium Potassium Chloride Carbon Dioxide BUN Creatinine Glucose POC Glucose 307 H 270 H 237 H Lactic Acid Calcium Phosphorus Magnesium Ferritin Total Bilirubin Direct Bilirubin AST ALT Alkaline Phosphatase Ammonia Lactate Dehydrogenase Troponin T C-Reactive Protein Total Protein Albumin Triglycerides Cholesterol HDL Cholesterol Lipase Arterial Blood Glucose Arterial Blood Ionized Calcium Urine WBC (Auto) Salicylates Acetaminophen Coronavirus (PCR) 03/03/21 03/03/21 03/03/21 00:02 00:57 02:01 WBC RBC Hgb Hct MCV MCH RDW Seg Neutrophils % Monocytes % (Manual) Seg Neutrophils # Monocytes # (Manual) PT INR D-Dimer Heparin Anti-Xa Level ABG pH POC ABG pCO2 POC ABG pO2 ABG Hemoglobin ABG Oxyhemoglobin ABG Sodium ABG Potassium ABG Chloride ABG Glucose Carboxyhemoglobin Sodium Potassium Chloride Carbon Dioxide BUN Creatinine Glucose POC Glucose 252 H 214 H 261 H Lactic Acid Calcium Phosphorus Magnesium Ferritin Total Bilirubin Direct Bilirubin AST ALT Alkaline Phosphatase Ammonia Lactate Dehydrogenase Troponin T C-Reactive Protein Total Protein Albumin Triglycerides Cholesterol HDL Cholesterol Lipase Arterial Blood Glucose Arterial Blood Ionized Calcium Urine WBC (Auto) Salicylates Acetaminophen Coronavirus (PCR) 03/03/21 03/03/21 03/03/21 03:07 03:10 03:50 WBC 13.7 H RBC 2.69 L Hgb 8.7 L Hct 26.9 L MCV 100 H MCH RDW 18.5 H Seg Neutrophils % 79.0 H Monocytes % (Manual) Seg Neutrophils # 10.8 H Monocytes # (Manual) PT INR D-Dimer Heparin Anti-Xa Level ABG pH POC ABG pCO2 50.9 H POC ABG pO2 81.9 L ABG Hemoglobin 8.7 L ABG Oxyhemoglobin ABG Sodium 134.2 L ABG Potassium ABG Chloride 96.0 L ABG Glucose 279 H Carboxyhemoglobin 0.4 L Sodium Potassium Chloride Carbon Dioxide BUN Creatinine Glucose POC Glucose 276 H Lactic Acid Calcium Phosphorus Magnesium Ferritin Total Bilirubin Direct Bilirubin AST ALT Alkaline Phosphatase Ammonia Lactate Dehydrogenase Troponin T C-Reactive Protein Total Protein Albumin Triglycerides Cholesterol HDL Cholesterol Lipase Arterial Blood Glucose 279 H Arterial Blood Ionized Calcium 3.9 L Urine WBC (Auto) Salicylates Acetaminophen Coronavirus (PCR) 03/03/21 03/03/21 03/03/21 03:50 04:06 04:32 WBC RBC Hgb Hct MCV MCH RDW Seg Neutrophils % Monocytes % (Manual) Seg Neutrophils # Monocytes # (Manual) PT INR D-Dimer Heparin Anti-Xa Level ABG pH POC ABG pCO2 POC ABG pO2 ABG Hemoglobin ABG Oxyhemoglobin ABG Sodium ABG Potassium ABG Chloride ABG Glucose Carboxyhemoglobin Sodium Potassium Chloride 94.2 L Carbon Dioxide BUN 45 H Creatinine 1.9 H Glucose 261 H POC Glucose 256 H Lactic Acid Calcium 7.3 L Phosphorus Magnesium Ferritin Total Bilirubin Direct Bilirubin 0.9 H AST 208 H ALT 148 H Alkaline Phosphatase 251 H Ammonia Lactate Dehydrogenase Troponin T C-Reactive Protein Total Protein 5.5 L Albumin 2.4 L Triglycerides Cholesterol HDL Cholesterol Lipase Arterial Blood Glucose Arterial Blood Ionized Calcium Urine WBC (Auto) Salicylates Acetaminophen Coronavirus (PCR) 03/03/21 03/03/21 03/03/21 05:23 06:06 07:07 WBC RBC Hgb Hct MCV MCH RDW Seg Neutrophils % Monocytes % (Manual) Seg Neutrophils # Monocytes # (Manual) PT INR D-Dimer Heparin Anti-Xa Level ABG pH POC ABG pCO2 POC ABG pO2 ABG Hemoglobin ABG Oxyhemoglobin ABG Sodium ABG Potassium ABG Chloride ABG Glucose Carboxyhemoglobin Sodium Potassium Chloride Carbon Dioxide BUN Creatinine Glucose POC Glucose 214 H 249 H 237 H Lactic Acid Calcium Phosphorus Magnesium Ferritin Total Bilirubin Direct Bilirubin AST ALT Alkaline Phosphatase Ammonia Lactate Dehydrogenase Troponin T C-Reactive Protein Total Protein Albumin Triglycerides Cholesterol HDL Cholesterol Lipase Arterial Blood Glucose Arterial Blood Ionized Calcium Urine WBC (Auto) Salicylates Acetaminophen Coronavirus (PCR) 03/03/21 03/03/21 03/03/21 07:58 08:58 09:52 WBC RBC Hgb Hct MCV MCH RDW Seg Neutrophils % Monocytes % (Manual) Seg Neutrophils # Monocytes # (Manual) PT INR D-Dimer Heparin Anti-Xa Level ABG pH POC ABG pCO2 POC ABG pO2 ABG Hemoglobin ABG Oxyhemoglobin ABG Sodium ABG Potassium ABG Chloride ABG Glucose Carboxyhemoglobin Sodium Potassium Chloride Carbon Dioxide BUN Creatinine Glucose POC Glucose 227 H 215 H 207 H Lactic Acid Calcium Phosphorus Magnesium Ferritin Total Bilirubin Direct Bilirubin AST ALT Alkaline Phosphatase Ammonia Lactate Dehydrogenase Troponin T C-Reactive Protein Total Protein Albumin Triglycerides Cholesterol HDL Cholesterol Lipase Arterial Blood Glucose Arterial Blood Ionized Calcium Urine WBC (Auto) Salicylates Acetaminophen Coronavirus (PCR) 03/03/21 03/03/21 03/03/21 10:55 11:44 12:53 WBC RBC Hgb Hct MCV MCH RDW Seg Neutrophils % Monocytes % (Manual) Seg Neutrophils # Monocytes # (Manual) PT INR D-Dimer Heparin Anti-Xa Level ABG pH POC ABG pCO2 POC ABG pO2 ABG Hemoglobin ABG Oxyhemoglobin ABG Sodium ABG Potassium ABG Chloride ABG Glucose Carboxyhemoglobin Sodium Potassium Chloride Carbon Dioxide BUN Creatinine Glucose POC Glucose 198 H 210 H 203 H Lactic Acid Calcium Phosphorus Magnesium Ferritin Total Bilirubin Direct Bilirubin AST ALT Alkaline Phosphatase Ammonia Lactate Dehydrogenase Troponin T C-Reactive Protein Total Protein Albumin Triglycerides Cholesterol HDL Cholesterol Lipase Arterial Blood Glucose Arterial Blood Ionized Calcium Urine WBC (Auto) Salicylates Acetaminophen Coronavirus (PCR) 03/03/21 03/03/21 03/03/21 13:53 14:58 15:23 WBC RBC Hgb Hct MCV MCH RDW Seg Neutrophils % Monocytes % (Manual) Seg Neutrophils # Monocytes # (Manual) PT INR D-Dimer Heparin Anti-Xa Level ABG pH POC ABG pCO2 POC ABG pO2 ABG Hemoglobin ABG Oxyhemoglobin ABG Sodium ABG Potassium ABG Chloride ABG Glucose Carboxyhemoglobin Sodium Potassium Chloride Carbon Dioxide BUN Creatinine Glucose POC Glucose 210 H 187 H Lactic Acid 3.10 H* Calcium Phosphorus Magnesium Ferritin Total Bilirubin Direct Bilirubin AST ALT Alkaline Phosphatase Ammonia Lactate Dehydrogenase Troponin T C-Reactive Protein Total Protein Albumin Triglycerides Cholesterol HDL Cholesterol Lipase Arterial Blood Glucose Arterial Blood Ionized Calcium Urine WBC (Auto) Salicylates Acetaminophen Coronavirus (PCR) 03/03/21 03/03/21 03/03/21 15:51 16:25 16:53 WBC RBC Hgb Hct MCV MCH RDW Seg Neutrophils % Monocytes % (Manual) Seg Neutrophils # Monocytes # (Manual) PT INR D-Dimer Heparin Anti-Xa Level ABG pH POC ABG pCO2 POC ABG pO2 ABG Hemoglobin ABG Oxyhemoglobin ABG Sodium ABG Potassium ABG Chloride ABG Glucose Carboxyhemoglobin Sodium Potassium Chloride 91.0 L Carbon Dioxide 34 H BUN 47 H Creatinine 1.7 H Glucose 190 H POC Glucose 182 H 179 H Lactic Acid Calcium 7.6 L Phosphorus Magnesium Ferritin Total Bilirubin Direct Bilirubin AST ALT Alkaline Phosphatase Ammonia Lactate Dehydrogenase Troponin T C-Reactive Protein Total Protein Albumin Triglycerides Cholesterol HDL Cholesterol Lipase Arterial Blood Glucose Arterial Blood Ionized Calcium Urine WBC (Auto) Salicylates Acetaminophen Coronavirus (PCR) 03/03/21 03/03/21 03/03/21 17:55 19:37 20:57 WBC RBC Hgb Hct MCV MCH RDW Seg Neutrophils % Monocytes % (Manual) Seg Neutrophils # Monocytes # (Manual) PT INR D-Dimer Heparin Anti-Xa Level ABG pH POC ABG pCO2 POC ABG pO2 ABG Hemoglobin ABG Oxyhemoglobin ABG Sodium ABG Potassium ABG Chloride ABG Glucose Carboxyhemoglobin Sodium Potassium Chloride Carbon Dioxide BUN Creatinine Glucose POC Glucose 185 H 174 H 175 H Lactic Acid Calcium Phosphorus Magnesium Ferritin Total Bilirubin Direct Bilirubin AST ALT Alkaline Phosphatase Ammonia Lactate Dehydrogenase Troponin T C-Reactive Protein Total Protein Albumin Triglycerides Cholesterol HDL Cholesterol Lipase Arterial Blood Glucose Arterial Blood Ionized Calcium Urine WBC (Auto) Salicylates Acetaminophen Coronavirus (PCR) 03/03/21 03/03/21 03/03/21 22:02 22:56 23:10 WBC RBC Hgb Hct MCV MCH RDW Seg Neutrophils % Monocytes % (Manual) Seg Neutrophils # Monocytes # (Manual) PT INR D-Dimer Heparin Anti-Xa Level 0.75 H ABG pH POC ABG pCO2 POC ABG pO2 ABG Hemoglobin ABG Oxyhemoglobin ABG Sodium ABG Potassium ABG Chloride ABG Glucose Carboxyhemoglobin Sodium Potassium Chloride Carbon Dioxide BUN Creatinine Glucose POC Glucose 170 H 160 H Lactic Acid Calcium Phosphorus Magnesium Ferritin Total Bilirubin Direct Bilirubin AST ALT Alkaline Phosphatase Ammonia Lactate Dehydrogenase Troponin T C-Reactive Protein Total Protein Albumin Triglycerides Cholesterol HDL Cholesterol Lipase Arterial Blood Glucose Arterial Blood Ionized Calcium Urine WBC (Auto) Salicylates Acetaminophen Coronavirus (PCR) 03/03/21 03/04/21 03/04/21 23:42 00:52 01:55 WBC RBC Hgb Hct MCV MCH RDW Seg Neutrophils % Monocytes % (Manual) Seg Neutrophils # Monocytes # (Manual) PT INR D-Dimer Heparin Anti-Xa Level ABG pH POC ABG pCO2 POC ABG pO2 ABG Hemoglobin ABG Oxyhemoglobin ABG Sodium ABG Potassium ABG Chloride ABG Glucose Carboxyhemoglobin Sodium Potassium Chloride Carbon Dioxide BUN Creatinine Glucose POC Glucose 161 H 167 H 119 H Lactic Acid Calcium Phosphorus Magnesium Ferritin Total Bilirubin Direct Bilirubin AST ALT Alkaline Phosphatase Ammonia Lactate Dehydrogenase Troponin T C-Reactive Protein Total Protein Albumin Triglycerides Cholesterol HDL Cholesterol Lipase Arterial Blood Glucose Arterial Blood Ionized Calcium Urine WBC (Auto) Salicylates Acetaminophen Coronavirus (PCR) 03/04/21 03/04/21 03/04/21 02:58 03:47 04:03 WBC RBC Hgb Hct MCV MCH RDW Seg Neutrophils % Monocytes % (Manual) Seg Neutrophils # Monocytes # (Manual) PT INR D-Dimer Heparin Anti-Xa Level ABG pH POC ABG pCO2 57.3 H POC ABG pO2 63.7 L ABG Hemoglobin 8.4 L ABG Oxyhemoglobin 88.6 L ABG Sodium 132.5 L ABG Potassium 3.2 L ABG Chloride 94.0 L ABG Glucose 129 H Carboxyhemoglobin Sodium Potassium Chloride Carbon Dioxide BUN Creatinine Glucose POC Glucose 111 H 122 H Lactic Acid Calcium Phosphorus Magnesium Ferritin Total Bilirubin Direct Bilirubin AST ALT Alkaline Phosphatase Ammonia Lactate Dehydrogenase Troponin T C-Reactive Protein Total Protein Albumin Triglycerides Cholesterol HDL Cholesterol Lipase Arterial Blood Glucose 129 H Arterial Blood Ionized Calcium 3.8 L Urine WBC (Auto) Salicylates Acetaminophen Coronavirus (PCR) 03/04/21 03/04/21 03/04/21 05:15 05:26 05:26 WBC RBC Hgb 7.9 L Hct 23.7 L MCV MCH RDW Seg Neutrophils % Monocytes % (Manual) Seg Neutrophils # Monocytes # (Manual) PT INR D-Dimer Heparin Anti-Xa Level ABG pH POC ABG pCO2 POC ABG pO2 ABG Hemoglobin ABG Oxyhemoglobin ABG Sodium ABG Potassium ABG Chloride ABG Glucose Carboxyhemoglobin Sodium Potassium Chloride Carbon Dioxide BUN Creatinine Glucose POC Glucose 127 H Lactic Acid Calcium Phosphorus Magnesium Ferritin Total Bilirubin Direct Bilirubin 0.6 H AST 123 H ALT 105 H Alkaline Phosphatase 232 H Ammonia Lactate Dehydrogenase Troponin T C-Reactive Protein Total Protein 4.8 L Albumin 2.2 L Triglycerides Cholesterol HDL Cholesterol Lipase Arterial Blood Glucose Arterial Blood Ionized Calcium Urine WBC (Auto) Salicylates Acetaminophen Coronavirus (PCR) 03/04/21 03/04/21 03/04/21 05:26 06:01 06:53 WBC RBC Hgb Hct MCV MCH RDW Seg Neutrophils % Monocytes % (Manual) Seg Neutrophils # Monocytes # (Manual) PT INR D-Dimer Heparin Anti-Xa Level 0.71 H ABG pH POC ABG pCO2 POC ABG pO2 ABG Hemoglobin ABG Oxyhemoglobin ABG Sodium ABG Potassium ABG Chloride ABG Glucose Carboxyhemoglobin Sodium Potassium Chloride Carbon Dioxide BUN Creatinine Glucose POC Glucose 120 H 117 H Lactic Acid Calcium Phosphorus Magnesium Ferritin Total Bilirubin Direct Bilirubin AST ALT Alkaline Phosphatase Ammonia Lactate Dehydrogenase Troponin T C-Reactive Protein Total Protein Albumin Triglycerides Cholesterol HDL Cholesterol Lipase Arterial Blood Glucose Arterial Blood Ionized Calcium Urine WBC (Auto) Salicylates Acetaminophen Coronavirus (PCR) 03/04/21 03/04/21 03/04/21 07:57 10:17 10:17 WBC RBC 2.51 L Hgb 8.3 L Hct 25.3 L MCV 101 H MCH 33 H RDW 18.5 H Seg Neutrophils % Monocytes % (Manual) Seg Neutrophils # Monocytes # (Manual) PT INR D-Dimer Heparin Anti-Xa Level ABG pH POC ABG pCO2 POC ABG pO2 ABG Hemoglobin ABG Oxyhemoglobin ABG Sodium ABG Potassium ABG Chloride ABG Glucose Carboxyhemoglobin Sodium 136 L Potassium Chloride 93.1 L Carbon Dioxide 33 H BUN 46 H Creatinine 1.4 H Glucose 151 H POC Glucose 129 H Lactic Acid Calcium 7.5 L Phosphorus Magnesium Ferritin Total Bilirubin Direct Bilirubin AST 126 H ALT 100 H Alkaline Phosphatase 226 H Ammonia Lactate Dehydrogenase Troponin T C-Reactive Protein Total Protein 5.0 L Albumin 2.2 L Triglycerides Cholesterol HDL Cholesterol Lipase Arterial Blood Glucose Arterial Blood Ionized Calcium Urine WBC (Auto) Salicylates Acetaminophen Coronavirus (PCR) 03/04/21 03/04/21 03/04/21 10:17 10:17 11:26 WBC RBC Hgb Hct MCV MCH RDW Seg Neutrophils % Monocytes % (Manual) Seg Neutrophils # Monocytes # (Manual) PT 15.6 H INR 1.18 H D-Dimer Heparin Anti-Xa Level ABG pH POC ABG pCO2 POC ABG pO2 ABG Hemoglobin ABG Oxyhemoglobin ABG Sodium ABG Potassium ABG Chloride ABG Glucose Carboxyhemoglobin Sodium Potassium Chloride Carbon Dioxide BUN Creatinine Glucose POC Glucose 167 H Lactic Acid Calcium Phosphorus Magnesium Ferritin Total Bilirubin Direct Bilirubin AST ALT Alkaline Phosphatase Ammonia Lactate Dehydrogenase Troponin T C-Reactive Protein Total Protein Albumin Triglycerides Cholesterol HDL Cholesterol Lipase 78 H Arterial Blood Glucose Arterial Blood Ionized Calcium Urine WBC (Auto) Salicylates Acetaminophen Coronavirus (PCR) 03/04/21 03/04/21 03/04/21 13:04 16:26 17:58 WBC RBC Hgb 7.7 L Hct 23.2 L MCV MCH RDW Seg Neutrophils % Monocytes % (Manual) Seg Neutrophils # Monocytes # (Manual) PT INR D-Dimer Heparin Anti-Xa Level < 0.10 L ABG pH POC ABG pCO2 POC ABG pO2 ABG Hemoglobin ABG Oxyhemoglobin ABG Sodium ABG Potassium ABG Chloride ABG Glucose Carboxyhemoglobin Sodium Potassium Chloride Carbon Dioxide BUN Creatinine Glucose POC Glucose 167 H Lactic Acid Calcium Phosphorus Magnesium Ferritin Total Bilirubin Direct Bilirubin AST ALT Alkaline Phosphatase Ammonia Lactate Dehydrogenase Troponin T C-Reactive Protein Total Protein Albumin Triglycerides Cholesterol HDL Cholesterol Lipase Arterial Blood Glucose Arterial Blood Ionized Calcium Urine WBC (Auto) Salicylates Acetaminophen Coronavirus (PCR) 03/04/21 03/05/21 03/05/21 23:47 04:00 05:06 WBC RBC Hgb Hct MCV MCH RDW Seg Neutrophils % Monocytes % (Manual) Seg Neutrophils # Monocytes # (Manual) PT INR D-Dimer Heparin Anti-Xa Level ABG pH POC ABG pCO2 POC ABG pO2 129.1 H ABG Hemoglobin 8.3 L ABG Oxyhemoglobin ABG Sodium 131.4 L ABG Potassium ABG Chloride 95.0 L ABG Glucose 153 H Carboxyhemoglobin Sodium Potassium Chloride Carbon Dioxide BUN Creatinine Glucose POC Glucose 153 H 139 H Lactic Acid Calcium Phosphorus Magnesium Ferritin Total Bilirubin Direct Bilirubin AST ALT Alkaline Phosphatase Ammonia Lactate Dehydrogenase Troponin T C-Reactive Protein Total Protein Albumin Triglycerides Cholesterol HDL Cholesterol Lipase Arterial Blood Glucose 153 H Arterial Blood Ionized Calcium Urine WBC (Auto) Salicylates Acetaminophen Coronavirus (PCR) 03/05/21 03/05/21 03/05/21 11:43 13:35 13:35 WBC RBC 2.38 L Hgb 7.8 L Hct 23.8 L MCV 100 H MCH 33 H RDW 18.2 H Seg Neutrophils % Monocytes % (Manual) Seg Neutrophils # Monocytes # (Manual) PT INR D-Dimer Heparin Anti-Xa Level ABG pH POC ABG pCO2 POC ABG pO2 ABG Hemoglobin ABG Oxyhemoglobin ABG Sodium ABG Potassium ABG Chloride ABG Glucose Carboxyhemoglobin Sodium Potassium Chloride 94.4 L Carbon Dioxide BUN 49 H Creatinine 1.6 H Glucose 165 H POC Glucose 174 H Lactic Acid Calcium 7.5 L Phosphorus Magnesium Ferritin Total Bilirubin Direct Bilirubin AST ALT Alkaline Phosphatase Ammonia Lactate Dehydrogenase Troponin T C-Reactive Protein Total Protein Albumin Triglycerides Cholesterol HDL Cholesterol Lipase Arterial Blood Glucose Arterial Blood Ionized Calcium Urine WBC (Auto) Salicylates Acetaminophen Coronavirus (PCR) 03/05/21 03/05/21 03/05/21 17:57 21:27 Unknown WBC RBC Hgb Hct MCV MCH RDW Seg Neutrophils % Monocytes % (Manual) Seg Neutrophils # Monocytes # (Manual) PT INR D-Dimer Heparin Anti-Xa Level ABG pH POC ABG pCO2 POC ABG pO2 ABG Hemoglobin ABG Oxyhemoglobin ABG Sodium ABG Potassium ABG Chloride ABG Glucose Carboxyhemoglobin Sodium Potassium Chloride Carbon Dioxide BUN Creatinine Glucose POC Glucose 129 H 129 H Lactic Acid Calcium Phosphorus Magnesium Ferritin Total Bilirubin Direct Bilirubin AST ALT Alkaline Phosphatase Ammonia Lactate Dehydrogenase Troponin T C-Reactive Protein Total Protein Albumin Triglycerides Cholesterol HDL Cholesterol Lipase Arterial Blood Glucose Arterial Blood Ionized Calcium Urine WBC (Auto) Salicylates Acetaminophen Coronavirus (PCR) Positive A 03/06/21 03/06/21 03/06/21 03:30 04:30 05:20 WBC 15.2 H RBC 2.48 L Hgb 8.2 L Hct 24.9 L MCV 100 H MCH 33 H RDW 18.6 H Seg Neutrophils % 72.6 H Monocytes % (Manual) Seg Neutrophils # 11.1 H Monocytes # (Manual) PT INR D-Dimer Heparin Anti-Xa Level ABG pH POC ABG pCO2 49.7 H POC ABG pO2 65.1 L ABG Hemoglobin 9.1 L ABG Oxyhemoglobin 90.2 L ABG Sodium 131.2 L ABG Potassium ABG Chloride 96.0 L ABG Glucose 133 H Carboxyhemoglobin Sodium Potassium Chloride Carbon Dioxide BUN Creatinine Glucose POC Glucose Lactic Acid Calcium Phosphorus Magnesium Ferritin Total Bilirubin Direct Bilirubin AST ALT Alkaline Phosphatase Ammonia Lactate Dehydrogenase Troponin T C-Reactive Protein 27.90 H Total Protein Albumin Triglycerides Cholesterol HDL Cholesterol Lipase Arterial Blood Glucose 133 H Arterial Blood Ionized Calcium 4.2 L Urine WBC (Auto) Salicylates Acetaminophen Coronavirus (PCR) 03/06/21 03/06/21 03/06/21 05:20 05:30 11:52 WBC RBC Hgb Hct MCV MCH RDW Seg Neutrophils % Monocytes % (Manual) Seg Neutrophils # Monocytes # (Manual) PT INR D-Dimer Heparin Anti-Xa Level ABG pH POC ABG pCO2 POC ABG pO2 ABG Hemoglobin ABG Oxyhemoglobin ABG Sodium ABG Potassium ABG Chloride ABG Glucose Carboxyhemoglobin Sodium 135 L Potassium Chloride 94.5 L Carbon Dioxide BUN 49 H Creatinine Glucose 121 H POC Glucose 123 H 123 H Lactic Acid Calcium 7.3 L Phosphorus Magnesium 1.50 L Ferritin Total Bilirubin Direct Bilirubin AST 120 H ALT 74 H Alkaline Phosphatase 306 H Ammonia Lactate Dehydrogenase Troponin T C-Reactive Protein Total Protein 4.5 L Albumin 2.0 L Triglycerides Cholesterol HDL Cholesterol Lipase Arterial Blood Glucose Arterial Blood Ionized Calcium Urine WBC (Auto) Salicylates Acetaminophen Coronavirus (PCR) 03/06/21 03/06/21 03/06/21 14:34 17:45 23:36 WBC RBC Hgb Hct MCV MCH RDW Seg Neutrophils % Monocytes % (Manual) Seg Neutrophils # Monocytes # (Manual) PT INR D-Dimer Heparin Anti-Xa Level ABG pH POC ABG pCO2 POC ABG pO2 ABG Hemoglobin ABG Oxyhemoglobin ABG Sodium ABG Potassium ABG Chloride ABG Glucose Carboxyhemoglobin Sodium Potassium Chloride Carbon Dioxide BUN Creatinine Glucose POC Glucose 140 H 209 H Lactic Acid Calcium Phosphorus Magnesium Ferritin Total Bilirubin Direct Bilirubin AST ALT Alkaline Phosphatase Ammonia Lactate Dehydrogenase Troponin T C-Reactive Protein Total Protein Albumin Triglycerides Cholesterol HDL Cholesterol Lipase Arterial Blood Glucose Arterial Blood Ionized Calcium Urine WBC (Auto) 103.0 H Salicylates Acetaminophen Coronavirus (PCR) 03/07/21 03/07/21 03/07/21 03:00 05:32 08:16 WBC RBC Hgb Hct MCV MCH RDW Seg Neutrophils % Monocytes % (Manual) Seg Neutrophils # Monocytes # (Manual) PT INR D-Dimer Heparin Anti-Xa Level ABG pH POC ABG pCO2 POC ABG pO2 ABG Hemoglobin 8.9 L ABG Oxyhemoglobin ABG Sodium 131.4 L ABG Potassium ABG Chloride ABG Glucose 224 H Carboxyhemoglobin Sodium 136 L Potassium Chloride 95.3 L Carbon Dioxide BUN 45 H Creatinine Glucose 210 H POC Glucose 213 H Lactic Acid Calcium 8.0 L Phosphorus Magnesium Ferritin Total Bilirubin 1.30 H Direct Bilirubin AST 144 H ALT 66 H Alkaline Phosphatase 335 H Ammonia Lactate Dehydrogenase Troponin T C-Reactive Protein Total Protein 4.9 L Albumin 2.1 L Triglycerides Cholesterol HDL Cholesterol Lipase Arterial Blood Glucose 224 H Arterial Blood Ionized Calcium 4.3 L Urine WBC (Auto) Salicylates Acetaminophen Coronavirus (PCR) 03/07/21 03/07/21 03/07/21 08:16 08:16 08:16 WBC RBC 2.47 L Hgb 8.2 L Hct 24.6 L MCV 100 H MCH 33 H RDW 18.1 H Seg Neutrophils % Monocytes % (Manual) Seg Neutrophils # Monocytes # (Manual) PT INR D-Dimer 403.72 H Heparin Anti-Xa Level ABG pH POC ABG pCO2 POC ABG pO2 ABG Hemoglobin ABG Oxyhemoglobin ABG Sodium ABG Potassium ABG Chloride ABG Glucose Carboxyhemoglobin Sodium Potassium Chloride Carbon Dioxide BUN Creatinine Glucose POC Glucose Lactic Acid Calcium Phosphorus Magnesium Ferritin Total Bilirubin Direct Bilirubin AST ALT Alkaline Phosphatase Ammonia Lactate Dehydrogenase 453 H Troponin T C-Reactive Protein 32.50 H Total Protein Albumin Triglycerides Cholesterol HDL Cholesterol Lipase Arterial Blood Glucose Arterial Blood Ionized Calcium Urine WBC (Auto) Salicylates Acetaminophen Coronavirus (PCR) 03/07/21 03/07/21 03/07/21 08:16 11:24 17:22 WBC RBC Hgb Hct MCV MCH RDW Seg Neutrophils % Monocytes % (Manual) Seg Neutrophils # Monocytes # (Manual) PT INR D-Dimer Heparin Anti-Xa Level ABG pH POC ABG pCO2 POC ABG pO2 ABG Hemoglobin ABG Oxyhemoglobin ABG Sodium ABG Potassium ABG Chloride ABG Glucose Carboxyhemoglobin Sodium Potassium Chloride Carbon Dioxide BUN Creatinine Glucose POC Glucose 205 H 211 H Lactic Acid Calcium Phosphorus Magnesium Ferritin > 2000.0 H Total Bilirubin Direct Bilirubin AST ALT Alkaline Phosphatase Ammonia Lactate Dehydrogenase Troponin T C-Reactive Protein Total Protein Albumin Triglycerides Cholesterol HDL Cholesterol Lipase Arterial Blood Glucose Arterial Blood Ionized Calcium Urine WBC (Auto) Salicylates Acetaminophen Coronavirus (PCR) 03/07/21 03/08/21 03/08/21 Unknown 00:05 04:00 WBC RBC Hgb Hct MCV MCH RDW Seg Neutrophils % Monocytes % (Manual) Seg Neutrophils # Monocytes # (Manual) PT INR D-Dimer Heparin Anti-Xa Level 0.94 H ABG pH 7.452 H POC ABG pCO2 POC ABG pO2 75.5 L ABG Hemoglobin 10.0 L ABG Oxyhemoglobin 93.5 L ABG Sodium 134.7 L ABG Potassium ABG Chloride ABG Glucose 268 H Carboxyhemoglobin 0.3 L Sodium Potassium Chloride Carbon Dioxide BUN Creatinine Glucose POC Glucose 253 H Lactic Acid Calcium Phosphorus Magnesium Ferritin Total Bilirubin Direct Bilirubin AST ALT Alkaline Phosphatase Ammonia Lactate Dehydrogenase Troponin T C-Reactive Protein Total Protein Albumin Triglycerides Cholesterol HDL Cholesterol Lipase Arterial Blood Glucose 268 H Arterial Blood Ionized Calcium 4.5 L Urine WBC (Auto) Salicylates Acetaminophen Coronavirus (PCR) 03/08/21 03/08/21 03/08/21 05:27 06:10 06:10 WBC RBC 2.62 L Hgb 8.4 L Hct 26.0 L MCV 100 H MCH RDW 18.0 H Seg Neutrophils % Monocytes % (Manual) Seg Neutrophils # Monocytes # (Manual) PT INR D-Dimer Heparin Anti-Xa Level ABG pH POC ABG pCO2 POC ABG pO2 ABG Hemoglobin ABG Oxyhemoglobin ABG Sodium ABG Potassium ABG Chloride ABG Glucose Carboxyhemoglobin Sodium Potassium Chloride Carbon Dioxide BUN 49 H Creatinine Glucose 280 H POC Glucose 273 H Lactic Acid Calcium Phosphorus Magnesium Ferritin Total Bilirubin Direct Bilirubin AST 130 H ALT 68 H Alkaline Phosphatase 440 H Ammonia Lactate Dehydrogenase Troponin T C-Reactive Protein Total Protein 5.3 L Albumin 1.9 L Triglycerides Cholesterol HDL Cholesterol Lipase Arterial Blood Glucose Arterial Blood Ionized Calcium Urine WBC (Auto) Salicylates Acetaminophen Coronavirus (PCR) 03/08/21 03/08/21 03/08/21 11:27 17:56 23:20 WBC RBC Hgb Hct MCV MCH RDW Seg Neutrophils % Monocytes % (Manual) Seg Neutrophils # Monocytes # (Manual) PT INR D-Dimer Heparin Anti-Xa Level ABG pH POC ABG pCO2 POC ABG pO2 ABG Hemoglobin ABG Oxyhemoglobin ABG Sodium ABG Potassium ABG Chloride ABG Glucose Carboxyhemoglobin Sodium Potassium Chloride Carbon Dioxide BUN Creatinine Glucose POC Glucose 258 H 279 H 289 H Lactic Acid Calcium Phosphorus Magnesium Ferritin Total Bilirubin Direct Bilirubin AST ALT Alkaline Phosphatase Ammonia Lactate Dehydrogenase Troponin T C-Reactive Protein Total Protein Albumin Triglycerides Cholesterol HDL Cholesterol Lipase Arterial Blood Glucose Arterial Blood Ionized Calcium Urine WBC (Auto) Salicylates Acetaminophen Coronavirus (PCR) 03/09/21 03/09/21 03/09/21 04:00 05:12 08:00 WBC RBC Hgb Hct MCV MCH RDW Seg Neutrophils % Monocytes % (Manual) Seg Neutrophils # Monocytes # (Manual) PT INR D-Dimer 249.59 H Heparin Anti-Xa Level ABG pH 7.456 H POC ABG pCO2 POC ABG pO2 ABG Hemoglobin 8.9 L ABG Oxyhemoglobin ABG Sodium 135.6 L ABG Potassium ABG Chloride ABG Glucose 298 H Carboxyhemoglobin 0.3 L Sodium Potassium Chloride Carbon Dioxide BUN Creatinine Glucose POC Glucose 267 H Lactic Acid Calcium Phosphorus Magnesium Ferritin Total Bilirubin Direct Bilirubin AST ALT Alkaline Phosphatase Ammonia Lactate Dehydrogenase Troponin T C-Reactive Protein Total Protein Albumin Triglycerides Cholesterol HDL Cholesterol Lipase Arterial Blood Glucose 298 H Arterial Blood Ionized Calcium 4.5 L Urine WBC (Auto) Salicylates Acetaminophen Coronavirus (PCR) 03/09/21 03/09/21 03/09/21 08:00 08:00 08:00 WBC RBC Hgb Hct MCV MCH RDW Seg Neutrophils % Monocytes % (Manual) Seg Neutrophils # Monocytes # (Manual) PT INR D-Dimer Heparin Anti-Xa Level ABG pH POC ABG pCO2 POC ABG pO2 ABG Hemoglobin ABG Oxyhemoglobin ABG Sodium ABG Potassium ABG Chloride ABG Glucose Carboxyhemoglobin Sodium Potassium Chloride Carbon Dioxide BUN 44 H Creatinine Glucose 289 H POC Glucose Lactic Acid Calcium Phosphorus Magnesium Ferritin 2743.0 H Total Bilirubin Direct Bilirubin AST 134 H ALT 62 H Alkaline Phosphatase 527 H Ammonia Lactate Dehydrogenase 459 H Troponin T C-Reactive Protein 10.60 H Total Protein 5.0 L Albumin 2.2 L Triglycerides Cholesterol HDL Cholesterol Lipase Arterial Blood Glucose Arterial Blood Ionized Calcium Urine WBC (Auto) Salicylates Acetaminophen Coronavirus (PCR) 03/09/21 03/09/21 03/09/21 08:00 11:52 18:05 WBC RBC 2.60 L Hgb 8.5 L Hct 25.5 L MCV 98 H MCH 33 H RDW 18.1 H Seg Neutrophils % Monocytes % (Manual) Seg Neutrophils # Monocytes # (Manual) PT INR D-Dimer Heparin Anti-Xa Level ABG pH POC ABG pCO2 POC ABG pO2 ABG Hemoglobin ABG Oxyhemoglobin ABG Sodium ABG Potassium ABG Chloride ABG Glucose Carboxyhemoglobin Sodium Potassium Chloride Carbon Dioxide BUN Creatinine Glucose POC Glucose 306 H 293 H Lactic Acid Calcium Phosphorus Magnesium Ferritin Total Bilirubin Direct Bilirubin AST ALT Alkaline Phosphatase Ammonia Lactate Dehydrogenase Troponin T C-Reactive Protein Total Protein Albumin Triglycerides Cholesterol HDL Cholesterol Lipase Arterial Blood Glucose Arterial Blood Ionized Calcium Urine WBC (Auto) Salicylates Acetaminophen Coronavirus (PCR) 03/09/21 03/10/21 03/10/21 23:21 04:38 05:25 WBC RBC Hgb 8.6 L Hct 26.0 L MCV MCH RDW Seg Neutrophils % Monocytes % (Manual) Seg Neutrophils # Monocytes # (Manual) PT INR D-Dimer Heparin Anti-Xa Level ABG pH POC ABG pCO2 POC ABG pO2 ABG Hemoglobin ABG Oxyhemoglobin ABG Sodium ABG Potassium ABG Chloride ABG Glucose Carboxyhemoglobin Sodium Potassium Chloride Carbon Dioxide BUN Creatinine Glucose POC Glucose 306 H 310 H Lactic Acid Calcium Phosphorus Magnesium Ferritin Total Bilirubin Direct Bilirubin AST ALT Alkaline Phosphatase Ammonia Lactate Dehydrogenase Troponin T C-Reactive Protein Total Protein Albumin Triglycerides Cholesterol HDL Cholesterol Lipase Arterial Blood Glucose Arterial Blood Ionized Calcium Urine WBC (Auto) Salicylates Acetaminophen Coronavirus (PCR) 03/10/21 03/10/21 03/10/21 05:25 12:33 12:52 WBC RBC Hgb Hct MCV MCH RDW Seg Neutrophils % Monocytes % (Manual) Seg Neutrophils # Monocytes # (Manual) PT INR D-Dimer Heparin Anti-Xa Level ABG pH 7.487 H POC ABG pCO2 POC ABG pO2 62.1 L ABG Hemoglobin 9.4 L ABG Oxyhemoglobin 89.7 L ABG Sodium ABG Potassium ABG Chloride ABG Glucose 350 H Carboxyhemoglobin 0.2 L Sodium Potassium Chloride Carbon Dioxide 32 H BUN 45 H Creatinine Glucose 341 H POC Glucose 340 H Lactic Acid Calcium Phosphorus Magnesium Ferritin Total Bilirubin Direct Bilirubin AST ALT Alkaline Phosphatase Ammonia Lactate Dehydrogenase Troponin T C-Reactive Protein Total Protein Albumin Triglycerides Cholesterol HDL Cholesterol Lipase Arterial Blood Glucose 350 H Arterial Blood Ionized Calcium Urine WBC (Auto) Salicylates Acetaminophen Coronavirus (PCR) 03/10/21 03/10/21 03/11/21 17:05 22:57 04:58 WBC RBC Hgb Hct MCV MCH RDW Seg Neutrophils % Monocytes % (Manual) Seg Neutrophils # Monocytes # (Manual) PT INR D-Dimer Heparin Anti-Xa Level ABG pH POC ABG pCO2 POC ABG pO2 ABG Hemoglobin ABG Oxyhemoglobin ABG Sodium ABG Potassium ABG Chloride ABG Glucose Carboxyhemoglobin Sodium Potassium Chloride Carbon Dioxide BUN Creatinine Glucose POC Glucose 298 H 241 H 261 H Lactic Acid Calcium Phosphorus Magnesium Ferritin Total Bilirubin Direct Bilirubin AST ALT Alkaline Phosphatase Ammonia Lactate Dehydrogenase Troponin T C-Reactive Protein Total Protein Albumin Triglycerides Cholesterol HDL Cholesterol Lipase Arterial Blood Glucose Arterial Blood Ionized Calcium Urine WBC (Auto) Salicylates Acetaminophen Coronavirus (PCR) 03/11/21 03/11/21 03/11/21 06:54 06:54 06:54 WBC RBC Hgb Hct MCV MCH RDW Seg Neutrophils % Monocytes % (Manual) Seg Neutrophils # Monocytes # (Manual) PT INR D-Dimer 238.43 H Heparin Anti-Xa Level ABG pH POC ABG pCO2 POC ABG pO2 ABG Hemoglobin ABG Oxyhemoglobin ABG Sodium ABG Potassium ABG Chloride ABG Glucose Carboxyhemoglobin Sodium 146 H Potassium Chloride Carbon Dioxide 31 H BUN 41 H Creatinine Glucose 255 H POC Glucose Lactic Acid Calcium Phosphorus Magnesium Ferritin 3346.0 H Total Bilirubin Direct Bilirubin AST ALT Alkaline Phosphatase Ammonia Lactate Dehydrogenase 557 H Troponin T C-Reactive Protein 4.70 H Total Protein Albumin Triglycerides Cholesterol HDL Cholesterol Lipase Arterial Blood Glucose Arterial Blood Ionized Calcium Urine WBC (Auto) Salicylates Acetaminophen Coronavirus (PCR) 03/11/21 03/11/21 03/11/21 06:54 11:25 17:41 WBC RBC 2.76 L Hgb 8.9 L Hct 27.0 L MCV 98 H MCH RDW 18.3 H Seg Neutrophils % Monocytes % (Manual) Seg Neutrophils # Monocytes # (Manual) PT INR D-Dimer Heparin Anti-Xa Level ABG pH POC ABG pCO2 POC ABG pO2 ABG Hemoglobin ABG Oxyhemoglobin ABG Sodium ABG Potassium ABG Chloride ABG Glucose Carboxyhemoglobin Sodium Potassium Chloride Carbon Dioxide BUN Creatinine Glucose POC Glucose 255 H 292 H Lactic Acid Calcium Phosphorus Magnesium Ferritin Total Bilirubin Direct Bilirubin AST ALT Alkaline Phosphatase Ammonia Lactate Dehydrogenase Troponin T C-Reactive Protein Total Protein Albumin Triglycerides Cholesterol HDL Cholesterol Lipase Arterial Blood Glucose Arterial Blood Ionized Calcium Urine WBC (Auto) Salicylates Acetaminophen Coronavirus (PCR) 03/11/21 03/12/21 03/12/21 23:26 04:44 05:16 WBC RBC Hgb Hct MCV MCH RDW Seg Neutrophils % Monocytes % (Manual) Seg Neutrophils # Monocytes # (Manual) PT INR D-Dimer Heparin Anti-Xa Level ABG pH POC ABG pCO2 POC ABG pO2 ABG Hemoglobin ABG Oxyhemoglobin ABG Sodium ABG Potassium ABG Chloride ABG Glucose Carboxyhemoglobin Sodium Potassium Chloride Carbon Dioxide BUN Creatinine Glucose POC Glucose 289 H 255 H Lactic Acid Calcium Phosphorus Magnesium Ferritin Total Bilirubin Direct Bilirubin AST ALT Alkaline Phosphatase Ammonia Lactate Dehydrogenase Troponin T 0.149 H* C-Reactive Protein Total Protein Albumin Triglycerides Cholesterol HDL Cholesterol Lipase Arterial Blood Glucose Arterial Blood Ionized Calcium Urine WBC (Auto) Salicylates Acetaminophen Coronavirus (PCR) 03/12/21 03/12/21 03/12/21 12:02 15:00 17:28 WBC RBC Hgb Hct MCV MCH RDW Seg Neutrophils % Monocytes % (Manual) Seg Neutrophils # Monocytes # (Manual) PT INR D-Dimer Heparin Anti-Xa Level ABG pH POC ABG pCO2 POC ABG pO2 ABG Hemoglobin ABG Oxyhemoglobin ABG Sodium ABG Potassium ABG Chloride ABG Glucose Carboxyhemoglobin Sodium Potassium 3.2 L Chloride Carbon Dioxide BUN 39 H Creatinine 0.7 L Glucose 258 H POC Glucose 237 H 257 H Lactic Acid Calcium 8.3 L Phosphorus Magnesium Ferritin Total Bilirubin 2.20 H Direct Bilirubin AST 181 H ALT 129 H Alkaline Phosphatase 541 H Ammonia Lactate Dehydrogenase Troponin T C-Reactive Protein Total Protein 5.0 L Albumin 2.0 L Triglycerides Cholesterol HDL Cholesterol Lipase Arterial Blood Glucose Arterial Blood Ionized Calcium Urine WBC (Auto) Salicylates Acetaminophen Coronavirus (PCR) 03/12/21 03/12/21 03/13/21 21:51 23:15 05:44 WBC RBC Hgb Hct MCV MCH RDW Seg Neutrophils % Monocytes % (Manual) Seg Neutrophils # Monocytes # (Manual) PT INR D-Dimer Heparin Anti-Xa Level ABG pH POC ABG pCO2 POC ABG pO2 ABG Hemoglobin ABG Oxyhemoglobin ABG Sodium ABG Potassium ABG Chloride ABG Glucose Carboxyhemoglobin Sodium Potassium Chloride Carbon Dioxide BUN Creatinine Glucose POC Glucose 253 H 287 H 247 H Lactic Acid Calcium Phosphorus Magnesium Ferritin Total Bilirubin Direct Bilirubin AST ALT Alkaline Phosphatase Ammonia Lactate Dehydrogenase Troponin T C-Reactive Protein Total Protein Albumin Triglycerides Cholesterol HDL Cholesterol Lipase Arterial Blood Glucose Arterial Blood Ionized Calcium Urine WBC (Auto) Salicylates Acetaminophen Coronavirus (PCR) 03/13/21 03/13/21 03/14/21 17:03 23:31 03:40 WBC RBC Hgb Hct MCV MCH RDW Seg Neutrophils % Monocytes % (Manual) Seg Neutrophils # Monocytes # (Manual) PT INR D-Dimer 475.91 H Heparin Anti-Xa Level ABG pH POC ABG pCO2 POC ABG pO2 ABG Hemoglobin ABG Oxyhemoglobin ABG Sodium ABG Potassium ABG Chloride ABG Glucose Carboxyhemoglobin Sodium Potassium Chloride Carbon Dioxide BUN Creatinine Glucose POC Glucose 228 H 275 H Lactic Acid Calcium Phosphorus Magnesium Ferritin Total Bilirubin Direct Bilirubin AST ALT Alkaline Phosphatase Ammonia Lactate Dehydrogenase Troponin T C-Reactive Protein Total Protein Albumin Triglycerides Cholesterol HDL Cholesterol Lipase Arterial Blood Glucose Arterial Blood Ionized Calcium Urine WBC (Auto) Salicylates Acetaminophen Coronavirus (PCR) 03/14/21 03/14/21 03/14/21 03:40 03:40 03:40 WBC RBC 2.25 L Hgb 7.4 L Hct 22.2 L MCV 99 H MCH 33 H RDW 18.5 H Seg Neutrophils % Monocytes % (Manual) Seg Neutrophils # Monocytes # (Manual) PT INR D-Dimer Heparin Anti-Xa Level ABG pH POC ABG pCO2 POC ABG pO2 ABG Hemoglobin ABG Oxyhemoglobin ABG Sodium ABG Potassium ABG Chloride ABG Glucose Carboxyhemoglobin Sodium Potassium 3.3 L Chloride Carbon Dioxide 37 H D BUN 24 H Creatinine 0.6 L Glucose 180 H POC Glucose Lactic Acid Calcium Phosphorus Magnesium Ferritin 3103.0 H Total Bilirubin 1.60 H Direct Bilirubin AST 283 H ALT 188 H Alkaline Phosphatase 619 H Ammonia Lactate Dehydrogenase 588 H Troponin T C-Reactive Protein 4.00 H Total Protein 4.8 L Albumin 2.2 L Triglycerides Cholesterol HDL Cholesterol Lipase Arterial Blood Glucose Arterial Blood Ionized Calcium Urine WBC (Auto) Salicylates Acetaminophen Coronavirus (PCR) 03/15/21 03/15/21 03/15/21 00:34 05:00 05:00 WBC RBC 2.40 L Hgb 7.8 L Hct 23.6 L MCV 99 H MCH 33 H RDW 18.3 H Seg Neutrophils % Monocytes % (Manual) Seg Neutrophils # Monocytes # (Manual) PT INR D-Dimer Heparin Anti-Xa Level ABG pH POC ABG pCO2 POC ABG pO2 ABG Hemoglobin ABG Oxyhemoglobin ABG Sodium ABG Potassium ABG Chloride ABG Glucose Carboxyhemoglobin Sodium Potassium Chloride Carbon Dioxide BUN Creatinine 0.6 L Glucose 238 H POC Glucose 287 H Lactic Acid Calcium 8.0 L Phosphorus Magnesium Ferritin Total Bilirubin 1.50 H Direct Bilirubin AST 189 H ALT 208 H Alkaline Phosphatase 659 H Ammonia Lactate Dehydrogenase Troponin T C-Reactive Protein Total Protein 5.1 L Albumin 2.1 L Triglycerides Cholesterol HDL Cholesterol Lipase Arterial Blood Glucose Arterial Blood Ionized Calcium Urine WBC (Auto) Salicylates Acetaminophen Coronavirus (PCR) 03/15/21 03/15/21 03/15/21 05:05 11:37 16:34 WBC RBC Hgb Hct MCV MCH RDW Seg Neutrophils % Monocytes % (Manual) Seg Neutrophils # Monocytes # (Manual) PT INR D-Dimer Heparin Anti-Xa Level ABG pH POC ABG pCO2 POC ABG pO2 ABG Hemoglobin ABG Oxyhemoglobin ABG Sodium ABG Potassium ABG Chloride ABG Glucose Carboxyhemoglobin Sodium Potassium Chloride Carbon Dioxide BUN Creatinine Glucose POC Glucose 238 H 236 H 280 H Lactic Acid Calcium Phosphorus Magnesium Ferritin Total Bilirubin Direct Bilirubin AST ALT Alkaline Phosphatase Ammonia Lactate Dehydrogenase Troponin T C-Reactive Protein Total Protein Albumin Triglycerides Cholesterol HDL Cholesterol Lipase Arterial Blood Glucose Arterial Blood Ionized Calcium Urine WBC (Auto) Salicylates Acetaminophen Coronavirus (PCR) 03/15/21 03/16/21 03/16/21 23:05 04:39 05:00 WBC RBC Hgb Hct MCV MCH RDW Seg Neutrophils % Monocytes % (Manual) Seg Neutrophils # Monocytes # (Manual) PT INR D-Dimer Heparin Anti-Xa Level ABG pH POC ABG pCO2 POC ABG pO2 ABG Hemoglobin ABG Oxyhemoglobin ABG Sodium ABG Potassium ABG Chloride ABG Glucose Carboxyhemoglobin Sodium Potassium Chloride Carbon Dioxide 33 H BUN Creatinine 0.5 L Glucose 195 H POC Glucose 336 H 205 H Lactic Acid Calcium Phosphorus Magnesium Ferritin Total Bilirubin Direct Bilirubin AST ALT Alkaline Phosphatase Ammonia Lactate Dehydrogenase Troponin T C-Reactive Protein Total Protein Albumin Triglycerides Cholesterol HDL Cholesterol Lipase Arterial Blood Glucose Arterial Blood Ionized Calcium Urine WBC (Auto) Salicylates Acetaminophen Coronavirus (PCR) 03/16/21 03/17/21 03/17/21 11:37 04:50 13:37 WBC RBC 2.52 L Hgb 8.6 L Hct 25.0 L MCV 99 H MCH 34 H RDW 18.1 H Seg Neutrophils % Monocytes % (Manual) Seg Neutrophils # Monocytes # (Manual) PT INR D-Dimer Heparin Anti-Xa Level ABG pH POC ABG pCO2 POC ABG pO2 ABG Hemoglobin ABG Oxyhemoglobin ABG Sodium ABG Potassium ABG Chloride ABG Glucose Carboxyhemoglobin Sodium Potassium Chloride Carbon Dioxide BUN Creatinine Glucose POC Glucose 222 H 113 H Lactic Acid Calcium Phosphorus Magnesium Ferritin Total Bilirubin Direct Bilirubin AST ALT Alkaline Phosphatase Ammonia Lactate Dehydrogenase Troponin T C-Reactive Protein Total Protein Albumin Triglycerides Cholesterol HDL Cholesterol Lipase Arterial Blood Glucose Arterial Blood Ionized Calcium Urine WBC (Auto) Salicylates Acetaminophen Coronavirus (PCR) 03/17/21 03/17/21 03/17/21 13:37 13:41 18:29 WBC RBC Hgb Hct MCV MCH RDW Seg Neutrophils % Monocytes % (Manual) Seg Neutrophils # Monocytes # (Manual) PT INR D-Dimer Heparin Anti-Xa Level ABG pH POC ABG pCO2 POC ABG pO2 ABG Hemoglobin ABG Oxyhemoglobin ABG Sodium ABG Potassium ABG Chloride ABG Glucose Carboxyhemoglobin Sodium Potassium 3.5 L Chloride Carbon Dioxide BUN Creatinine 0.4 L Glucose 174 H POC Glucose 176 H 180 H Lactic Acid Calcium Phosphorus Magnesium Ferritin Total Bilirubin Direct Bilirubin AST ALT Alkaline Phosphatase Ammonia Lactate Dehydrogenase Troponin T C-Reactive Protein Total Protein Albumin Triglycerides Cholesterol HDL Cholesterol Lipase Arterial Blood Glucose Arterial Blood Ionized Calcium Urine WBC (Auto) Salicylates Acetaminophen Coronavirus (PCR) 03/17/21 03/18/21 03/18/21 23:06 05:50 07:53 WBC RBC 2.46 L Hgb 7.9 L Hct 24.5 L MCV 100 H MCH RDW 18.0 H Seg Neutrophils % Monocytes % (Manual) Seg Neutrophils # Monocytes # (Manual) PT INR D-Dimer Heparin Anti-Xa Level ABG pH POC ABG pCO2 POC ABG pO2 ABG Hemoglobin ABG Oxyhemoglobin ABG Sodium ABG Potassium ABG Chloride ABG Glucose Carboxyhemoglobin Sodium Potassium Chloride Carbon Dioxide BUN Creatinine Glucose POC Glucose 127 H 108 H Lactic Acid Calcium Phosphorus Magnesium Ferritin Total Bilirubin Direct Bilirubin AST ALT Alkaline Phosphatase Ammonia Lactate Dehydrogenase Troponin T C-Reactive Protein Total Protein Albumin Triglycerides Cholesterol HDL Cholesterol Lipase Arterial Blood Glucose Arterial Blood Ionized Calcium Urine WBC (Auto) Salicylates Acetaminophen Coronavirus (PCR) 03/18/21 03/18/21 03/18/21 07:53 07:53 11:43 WBC RBC Hgb Hct MCV MCH RDW Seg Neutrophils % Monocytes % (Manual) Seg Neutrophils # Monocytes # (Manual) PT INR D-Dimer Heparin Anti-Xa Level ABG pH POC ABG pCO2 POC ABG pO2 ABG Hemoglobin ABG Oxyhemoglobin ABG Sodium ABG Potassium ABG Chloride ABG Glucose Carboxyhemoglobin Sodium Potassium Chloride Carbon Dioxide 31 H BUN Creatinine 0.4 L Glucose POC Glucose 158 H Lactic Acid Calcium 8.3 L Phosphorus Magnesium Ferritin Total Bilirubin Direct Bilirubin AST ALT Alkaline Phosphatase Ammonia Lactate Dehydrogenase Troponin T 0.185 H* C-Reactive Protein Total Protein Albumin Triglycerides Cholesterol HDL Cholesterol Lipase Arterial Blood Glucose Arterial Blood Ionized Calcium Urine WBC (Auto) Salicylates Acetaminophen Coronavirus (PCR) 03/18/21 03/18/21 03/19/21 16:36 18:03 04:48 WBC RBC Hgb Hct MCV MCH RDW Seg Neutrophils % Monocytes % (Manual) Seg Neutrophils # Monocytes # (Manual) PT INR D-Dimer Heparin Anti-Xa Level ABG pH POC ABG pCO2 POC ABG pO2 ABG Hemoglobin ABG Oxyhemoglobin ABG Sodium ABG Potassium ABG Chloride ABG Glucose Carboxyhemoglobin Sodium Potassium Chloride Carbon Dioxide BUN Creatinine Glucose POC Glucose 133 H 130 H 107 H Lactic Acid Calcium Phosphorus Magnesium Ferritin Total Bilirubin Direct Bilirubin AST ALT Alkaline Phosphatase Ammonia Lactate Dehydrogenase Troponin T C-Reactive Protein Total Protein Albumin Triglycerides Cholesterol HDL Cholesterol Lipase Arterial Blood Glucose Arterial Blood Ionized Calcium Urine WBC (Auto) Salicylates Acetaminophen Coronavirus (PCR) 03/19/21 03/19/21 12:47 22:05 WBC RBC Hgb Hct MCV MCH RDW Seg Neutrophils % Monocytes % (Manual) Seg Neutrophils # Monocytes # (Manual) PT INR D-Dimer Heparin Anti-Xa Level ABG pH POC ABG pCO2 POC ABG pO2 ABG Hemoglobin ABG Oxyhemoglobin ABG Sodium ABG Potassium ABG Chloride ABG Glucose Carboxyhemoglobin Sodium Potassium Chloride Carbon Dioxide BUN Creatinine Glucose POC Glucose 121 H 123 H Lactic Acid Calcium Phosphorus Magnesium Ferritin Total Bilirubin Direct Bilirubin AST ALT Alkaline Phosphatase Ammonia Lactate Dehydrogenase Troponin T C-Reactive Protein Total Protein Albumin Triglycerides Cholesterol HDL Cholesterol Lipase Arterial Blood Glucose Arterial Blood Ionized Calcium Urine WBC (Auto) Salicylates Acetaminophen Coronavirus (PCR) Allied health notes reviewed: nursing
[2021-03-20] MEDS: INSULIN REGULAR, HUMAN 100 UNITS/1 ML SUB-Q SCH ×4 (00:07→17:46)
[2021-03-20] MEDS: dilTIAZem 60 MG TAB PO SCH ×2 (00:14→06:22)
--- NOTE | 2021-03-20 08:29 | Progress Note ---
Assessment and Plan Assessment and plan: This is a a 51 year old male admitted for for severe sepsis, respiratory failure, pneumonia and ALPHONSO. PMH: COPD, CHF, DM, DVT/PE, HTN, KAM, obesity, asthma PSx: none reported home meds: albuterol sulfate, advair, HCTZ, atrovent, glucophage, Klor-Con, midodrine, metoprolol, lasix, lantus, coumadin (from audit and home meds reconciliation) Social: unknown A/P Neuro: Metabolic encephalopathy -Resolving -Now extbated Cardio: SR/ST: Acute on Chronic HFpEF (per cards), NSTEMI, h/o HTN, HLD, Prolonged QTc, SVT -Cardiology consulted, appreciate recommendations -midodrine d/c r/t HTN -BP monitoring per protocol -Labetalol PO -Per cardiology: 1. gentle IV diuresis when able 2. Echo 12/13/2020 - EF 55-60%, otherwise technically difficult study. Echo 05/2016 - LV mildly dilated, EF 55-60%, grade II diastolic dysfxn, RV mildly enlarged, normal RV sys fxn, LA mildly dilated, RA mildly dilated, mild-mod AR, mild PA, mild aortic root dilatation. Resp: Acute on chronic hypoxic respiratory failure, Bilateral PNA, hx COPD, KAM, asthma, ?PE -CCM consulted, appreciate recommendations -MV, wean as tolerated -Intubated 03/01, tube exchange 03/09 OETT 8/0 @ 25 lip -nOW EXTUBATED 03/10 -Continuos SPO2 monitoring -abx with levaquin (03/02-03/07)-DC 03/05 r/t prolonged QTc -03/01 CT chest shows several pulmonary nodules within Right lung measuring 6-8 mm, increased interstitial prominence -? f/u outpt with PCP/pulmanology -03/10 CXR reviewed GI: Transaminitis, TF -GI consulted, appreciate recommendations -Trend LFTs -RUQ US shows no evidence of cholelithiasis, cholecytitis or choledocholithisis -CT abd/pelvis showed fatty infiltration of liver -Ntr consult for TF -PPI -BR [place] -last BM 03/06 -24 hr net (-) 225 : ALPHONSO (stable/resolved) -Nephrology consulted, appreciate recommendations -Pt was on HD at recent hospitalization at OSH -Renally dose mediations -Avoid nephrotoxic medications -Strict I&Os -Renal US shows no significant abnormality -Daily weights -Replete electrolytes -Trend BMP -s/p lasix x 2, prn hydral -Trial lasix again today Heme: DVT-R posterior tibial vein, h/o LLE DVT (December 2019)/ PE (failed Xa inhibitors per cards; on home coumadin) -evidenced on BLE Doppler US -Heparin gtt d/c to lovenox subq (03/09) -SCDs while in bed -Per cards: Eventually plan to transition to Coumadin ID: Severe Sepsis, B PNA, COVID 19 infection -s/p abx therapy (azithromycin 03/01-03/02, aztreonam 03/02, cefepime 03/01-03/02, levaquin 03/02-03/05, flagyl 03/01-03/02, vancomycin 03/01-03/02) -VAP bundle -MRSA (+) nares -COVID 19 PCR (+) -Decadron for 10 days (03/06-03/15) -Remdesivir (03/06-03/10) -Contact/Droplet precautions -03/01 BCx2 with NGTD, UC with NGTD, sputum culture normal sole -03/06 BC NGTD -Prone if needed -Vit C/D/Zinc Endo: DM -SSI, lantus (titrate as needed) -Accuchecks q6 -Avoid hypoglycemia FEN: Hypokalemia, Hypomagenesmia- Replace lines: condom cath, PIV, RADHA Disposition: ICU Full code The high probability of a clinically significant, sudden or life threatening deterioration of the [multi] system(s) required my full and direct attention, intervention and personal management. The aggregate critical care time was [40] minutes. This time is in addition to time spent performing reported procedures but includes the following: [x] Data Review and interpretation [x] Patient assessment and monitoring of vital signs [x] Documentation [x] Medication orders and management History Interval history: This is a 51-year-old -Burkin[place] male with COPD with chronic respiratory failure, CHFpEF, diabetes mellitus, DVT/PE on coumadin and hypertension who p resented to [facility] via EMS for AMS and hypoxia. On arrival of EMS oxygen saturation was about 88% on room air, blood pressure was said to be about 88/50 mmHg. Work-up in the emergency room reveals leukocytosis of 12.7, hemoglobin of 9.1 and hematocrit of 27.7, sodium of 132, lactic acid of 2.90, elevated liver enzymes and elevated troponin at 0.493. A CT of the chest showed findings concerning for atelectasis and or infiltrate, CT of the head was unremarkable. Patient was in severe respiratory distress upon arrival in the emergency room and subsequently intubated. Patient was admitted to the hospitalist service with consults to cardiology, CCM, GI, and neprohology for severe sepsis, respiratory failure, pneumonia and ALPHONSO. Of note patient was admitted to [facility] from 12/12-01/14 and was on HD during that admit. 03/03/21: Patient remains intubated, continue on heparin drip, monitor H&H and BMP. Continue empiric antibiotics, ID following. Follow ammonia level and LFT. According to cardiology patient indeed had preserved EF during his recent admission to [place]. Plan to repeat 2D echo. Critical care following, wean off from vent as tolerated. 03/04: RN reported blood y secretions in OETT and clots, heparin gtt stopped and B LE US obtained which shows DVT, abx deescalated, heparin gtt restarted. 03/05: RN reported vomiting x1, promithazine x1 given, Qtc at 599 on EKG. AM labs pending. tmax 102.2, reculture with next spike, COVID 19 PCR. abx stopped re prolonged qtc and received CAP coverage. 03/06: Reported high TF residual, COVID PCR pending. Cr better today. tmax 100.7 03/07: radha placed yesterday, started on remdesivir re positive covid. ID consulted yesterday. SHERYL overnight. 03/08: SHERYL reported overnight. Patient is now hypertensive and midodrine has been held. Will now place on low dose antihtn and prn hydral. 03/09: Patient reportedly through tube and OETT was exchanged, patient was given paralytic for exchange. No acute events reported overnight. Patient noted to be hypertensive and we will trial Lasix again today. 03/10: PSV trial today. fentayl was stopped. BP maintaining. SHERYL overnight. 03/11: Patient was extuabted, awaiting Speech therapy, discussed with nursing staff at bedside, considering Hypertensive urgency, will do a bedside swallow eval and give oral meds if passed. Continue aspiration precautions. The patient has hx of Asthma, continue neb treatment. 03/12: Patient remains in ICU care secondary to SVT and unstable hemodynamics. Cardiology reevaluated patient was given adenosine and started on amnio drip. Still awaiting speech therapy evaluation although considering her current condition we will keep the patient n.p.o. Case discussed with cadet deck and larry car operator. Monitor electrolytes and correct as needed. 03/13: Patient this morning remains in normal sinus rhythm following the adenosine and amnio drip which is still going the latter I mean. I will start the patient on Lasix for 3 days and monitor her renal function. Patient is already on high dose of dexamethasone considering his history of bronchospasm disease. We will repeat a pulmonary evaluation we will correct electrolytes especially with the Lasix. CCT 35 pLAN DISCUSSED WITH THE PATIENT AND NURSE 03/14: Patient unfortunately is declining continues on high flow -70% intermittent altered mental status refusing all treatment plan. Psych saw the patient recommended Geodon as needed. Will transition some medications to IV. Continue encouraging patient to use BiPAP. Continue nebulizer treatment and steroid therapy. Pulmonary and cardiology input also appreciated. 03/15: Patient seen and examined, continue to wean oxygen flow as tolerated, Electrolytes replacement protocol inplace, LFT still elevated but trending down some. Again counselling provided to the patient about compliance. Adjust insulin. 03/16: Patient down to 50% FiO2 was saturating 92%. Will transfer to [facility]. Clinically he is showing some improvement. Continue restraints for supportive care continue to monitor for intermittent delirium. 03/17: Patient still with intermittent delirium sometimes refusing medication. Restraints has been renewed for safety as he did take off his oxygen yesterday and desatted to the 70s. His saturation is back to 90-92% with FiO2 of 50% of the high flow. Continue supportive care pulmonary input and ID input noted. 03/18: Continue full supportive care, ideally prone if able, called to update family, continue supportive care, patient treated with -IV/PO Dexamethasone 10 mg daily x 10 days, higher dose due to morbid obesity. Ended 03/15/2021 -Completed Remdesivir still high risk due to hypoxia treatment being complicated by the delirium 03/19; patient is on 30 L of high flow oxygen with FiO2 of 96%. Patient completed remdesivir and Decadron. Patient is still high risk because of hypoxia. Patient has right posterior tibial vein occlusive thrombus and on therapeutic Lovenox. 03/20; on 25 L of high flow oxygen with FiO2 of 45%. Completed Decadron and remdesivir. Patient has DVT and on repeat Lovenox. Discussed with case management for possible LTAC placement. History Interval history: Patient was seen and evaluated this morning Patient was on 30 L of high flow oxygen with FiO2 of 45 % Patient said he is breathing okay Hospitalist Physical - Physical exam Narrative exam: Patient is on 25 L high flow oxygen with FiO2 of 96% The patient is morbidly obese. Vital signs as documented. Head exam is unremarkable. No scleral icterus . Neck is without jugular venous distension, thyromegaly, or carotid bruits. Lungs decreased air entry. Cardiac exam reveals regular rate and Rhythm. Abdominal exam reveals normal bowel sounds, nontender, no organomegaly. Extremities bilateral lower extremity edema. BIT GATHERER: Alert and oriented x3. Moves extremities. - Constitutional Vitals: Temp Pulse Resp BP Pulse Ox 99.7 F H 91 H 16 141/91 95 03/20/21 05:58 03/20/21 06:22 03/20/21 05:58 03/20/21 06:22 03/20/21 05:58 General appearance: Present: no acute distress, well-nourished, obese, other (sedated) HEART Score - HEART Score Troponin: Troponin T 0.185 ng/mL (0.00-0.029) H* 03/18/21 07:53 Results - Labs CBC & Chem 7: 03/18/21 07:53 03/18/21 07:53 Labs: Laboratory Last Values WBC 8.6 K/mm3 (4.5-11.0) 03/18/21 07:53 RBC 2.46 M/mm3 (3.65-5.03) L 03/18/21 07:53 Hgb 7.9 gm/dl (11.8-15.2) L 03/18/21 07:53 Hct 24.5 % (35.5-45.6) L 03/18/21 07:53 MCV 100 fl (84-94) H 03/18/21 07:53 MCH 32 pg (28-32) 03/18/21 07:53 MCHC 32 % (32-34) 03/18/21 07:53 RDW 18.0 % (13.2-15.2) H 03/18/21 07:53 Plt Count 294 K/mm3 (140-440) 03/18/21 07:53 Lymph % (Auto) 22.4 % (13.4-35.0) 03/06/21 05:20 Woods % (Auto) 4.5 % (0.0-7.3) 03/06/21 05:20 Eos % (Auto) 0.2 % (0.0-4.3) 03/06/21 05:20 Baso % (Auto) 0.3 % (0.0-1.8) 03/06/21 05:20 Lymph # (Auto) 3.4 K/mm3 (1.2-5.4) 03/06/21 05:20 Woods # (Auto) 0.7 K/mm3 (0.0-0.8) 03/06/21 05:20 Eos # (Auto) 0.0 K/mm3 (0.0-0.4) 03/06/21 05:20 Baso # (Auto) 0.1 K/mm3 (0.0-0.1) 03/06/21 05:20 Add Manual Diff Complete 03/01/21 19:21 Total Counted 100 03/01/21 19:21 Seg Neutrophils % 72.6 % (40.0-70.0) H 03/06/21 05:20 Seg Neuts % (Manual) 49.0 % (40.0-70.0) 03/01/21 19:21 Lymphocytes % (Manual) 32.0 % (13.4-35.0) 03/01/21 19:21 Monocytes % (Manual) 17.0 % (0.0-7.3) H 03/01/21 19:21 Eosinophils % (Manual) 1.0 % (0.0-4.3) 03/01/21 19:21 Basophils % (Manual) 1.0 % (0.0-1.8) 03/01/21 19:21 Nucleated RBC % Not Reportable 03/01/21 19:21 Seg Neutrophils # 11.1 K/mm3 (1.8-7.7) H 03/06/21 05:20 Seg Neutrophils # Man 6.2 K/mm3 (1.8-7.7) 03/01/21 19:21 Band Neutrophils # 0.0 K/mm3 03/01/21 19:21 Lymphocytes # (Manual) 4.1 K/mm3 (1.2-5.4) 03/01/21 19:21 Abs React Lymphs (Man) 0.0 K/mm3 03/01/21 19:21 Monocytes # (Manual) 2.2 K/mm3 (0.0-0.8) H 03/01/21 19:21 Eosinophils # (Manual) 0.1 K/mm3 (0.0-0.4) 03/01/21 19:21 Basophils # (Manual) 0.1 K/mm3 (0.0-0.1) 03/01/21 19:21 Metamyelocytes # 0.0 K/mm3 03/01/21 19:21 Myelocytes # 0.0 K/mm3 03/01/21 19:21 Promyelocytes # 0.0 K/mm3 03/01/21 19:21 Blast Cells # 0.0 K/mm3 03/01/21 19:21 WBC Morphology Not Reportable 03/01/21 19:21 Hypersegmented Neuts Not Reportable 03/01/21 19:21 Hyposegmented Neuts Not Reportable 03/01/21 19:21 Hypogranular Neuts Not Reportable 03/01/21 19:21 Smudge Cells Not Reportable 03/01/21 19:21 Toxic Granulation Not Reportable 03/01/21 19:21 Toxic Vacuolation Not Reportable 03/01/21 19:21 Dohle Bodies Not Reportable 03/01/21 19:21 Pelger-Huet Anomaly Not Reportable 03/01/21 19:21 Katherine Rods Not Reportable 03/01/21 19:21 Platelet Estimate Not Reportable 03/01/21 19:21 Clumped Platelets Not Reportable 03/01/21 19:21 Plt Clumps, EDTA Not Reportable 03/01/21 19:21 Large Platelets Not Reportable 03/01/21 19:21 Giant Platelets Not Reportable 03/01/21 19:21 Platelet Satelliting Not Reportable 03/01/21 19:21 Plt Morphology Comment Not Reportable 03/01/21 19:21 RBC Morphology Not Reportable 03/01/21 19:21 Dimorphic RBCs Not Reportable 03/01/21 19:21 Polychromasia Not Reportable 03/01/21 19:21 Hypochromasia Not Reportable 03/01/21 19:21 Poikilocytosis Not Reportable 03/01/21 19:21 Anisocytosis Rare 03/01/21 19:21 Microcytosis Not Reportable 03/01/21 19:21 Macrocytosis Not Reportable 03/01/21 19:21 Spherocytes Not Reportable 03/01/21 19:21 Pappenheimer Bodies Not Reportable 03/01/21 19:21 Sickle Cells Not Reportable 03/01/21 19:21 Target Cells Not Reportable 03/01/21 19:21 Tear Drop Cells Not Reportable 03/01/21 19:21 Ovalocytes Not Reportable 03/01/21 19:21 Helmet Cells Not Reportable 03/01/21 19:21 Quinones-Muenster Bodies Not Reportable 03/01/21 19:21 [place] Rings Not Reportable 03/01/21 19:21 Willam[place] Cells Not Reportable 03/01/21 19:21 Bite Cells Not Reportable 03/01/21 19:21 Crenated Cell Not Reportable 03/01/21 19:21 Elliptocytes Not Reportable 03/01/21 19:21 Acanthocytes (Spur) Not Reportable 03/01/21 19:21 Rouleaux Not Reportable 03/01/21 19:21 Hemoglobin C Crystals Not Reportable 03/01/21 19:21 Schistocytes Few 03/01/21 19:21 Malaria parasites Not Reportable 03/01/21 19:21 Henry Bodies Not Reportable 03/01/21 19:21 Hem Pathologist Commnt No 03/01/21 19:21 PT 15.6 Sec. (12.2-14.9) H 03/04/21 10:17 INR 1.18 (0.87-1.13) H 03/04/21 10:17 APTT 36.6 Sec. (24.2-36.6) 03/02/21 16:28 D-Dimer 475.91 ng/mlDDU (0-234) H 03/14/21 03:40 Heparin Anti-Xa Level 0.64 U.I./ml (0.3-0.7) 03/08/21 10:30 ABG pH 7.487 (7.320-7.450) H 03/10/21 12:33 POC ABG pCO2 40.4 mmHg (32.0-48.0) 03/10/21 12:33 POC ABG pO2 62.1 mmHg (83-108) L 03/10/21 12:33 POC ABG HCO3 29.9 03/10/21 12:33 ABG O2 Saturation 90.2 (0-100) 03/10/21 12:33 POC ABG Base Excess 6.0 03/10/21 12:33 ABG Hemoglobin 9.4 (12.0-17.5) L 03/10/21 12:33 ABG Oxyhemoglobin 89.7 (94-98) L 03/10/21 12:33 ABG Methemoglobin 0.3 (0.0-1.5) 03/10/21 12:33 ABG Sodium 138.7 mmol/L (136.0-145.0) 03/10/21 12:33 ABG Potassium 3.7 mmol/L (3.40-4.50) 03/10/21 12:33 ABG Chloride 104.0 mmol/L (98-107) 03/10/21 12:33 ABG Glucose 350 mg/dL (65-95) H 03/10/21 12:33 Carboxyhemoglobin 0.2 (0.5-1.5) L 03/10/21 12:33 FiO2 % 35.0 03/10/21 12:33 Sodium 144 mmol/L (137-145) 03/18/21 07:53 Potassium 3.6 mmol/L (3.6-5.0) 03/18/21 07:53 Chloride 103.1 mmol/L (98-107) 03/18/21 07:53 Carbon Dioxide 31 mmol/L (22-30) H 03/18/21 07:53 Anion Gap 14 mmol/L 03/18/21 07:53 BUN 10 mg/dL (9-20) 03/18/21 07:53 Creatinine 0.4 mg/dL (0.8-1.3) L 03/18/21 07:53 Estimated GFR > 60 ml/min 03/18/21 07:53 BUN/Creatinine Ratio 25 % 03/18/21 07:53 Glucose 98 mg/dL (75-100) 03/18/21 07:53 POC Glucose 91 mg/dL (70-105) 03/20/21 07:48 Lactic Acid 1.70 mmol/L (0.7-2.0) 03/04/21 10:17 Calcium 8.3 mg/dL (8.4-10.2) L 03/18/21 07:53 Phosphorus 2.60 mg/dL (2.5-4.5) 03/16/21 05:00 Magnesium 1.80 mg/dL (1.7-2.3) 03/16/21 05:00 Ferritin 3103.0 ng/mL (30.0-300.0) H 03/14/21 03:40 Total Bilirubin 1.50 mg/dL (0.1-1.2) H 03/15/21 05:00 Direct Bilirubin 0.6 mg/dL (0-0.2) H 03/04/21 05:26 Indirect Bilirubin 0.2 mg/dL 03/04/21 05:26 AST 189 units/L (5-40) H 03/15/21 05:00 ALT 208 units/L (7-56) H 03/15/21 05:00 Alkaline Phosphatase 659 units/L (35-129) H 03/15/21 05:00 Ammonia 71.0 umol/L (25-60) H 03/01/21 19:21 Lactate Dehydrogenase 588 units/L (91-180) H 03/14/21 03:40 Troponin T 0.185 ng/mL (0.00-0.029) H* 03/18/21 07:53 C-Reactive Protein 4.00 mg/dL (0.00-1.30) H 03/14/21 03:40 Total Protein 5.1 g/dL (6.3-8.2) L 03/15/21 05:00 Albumin 2.1 g/dL (3.9-5) L 03/15/21 05:00 Albumin/Globulin Ratio 0.7 % 03/15/21 05:00 Triglycerides 400 mg/dL (2-149) H 03/01/21 19:21 Cholesterol 232 mg/dL (50-199) H 03/01/21 19:21 LDL Cholesterol Direct 130 mg/dL (50-130) 03/01/21 19:21 HDL Cholesterol 22 mg/dL (40-59) L 03/01/21 19:21 Cholesterol/HDL Ratio 10.54 % 03/01/21 19: Lipase 78 units/L (13-60) H 03/04/21 10:17 Procalcitonin 1.18 ng/mL (<0.15) 03/08/21 06:10 TSH 1.840 mlU/mL (0.270-4.200) 03/03/21 04:06 Arterial Blood Glucose 350 mg/dL (65-95) H 03/10/21 12:33 Arterial Blood Ionized Calcium 4.6 mg/dL (4.6-5.3) 03/10/21 12:33 Urine Color Ariadne (Yellow) 03/06/21 14:34 Urine Turbidity Cloudy (Clear) 03/06/21 14:34 Urine pH 5.0 (5.0-7.0) 03/06/21 14:34 Ur Specific [place] 1.014 (1.003-1.030) 03/06/21 14:34 Urine Protein 30 mg/dl mg/dL (Negative) 03/06/21 14:34 Urine Glucose (UA) Neg mg/dL (Negative) 03/06/21 14:34 Urine Ketones Neg mg/dL (Negative) 03/06/21 14:34 Urine Blood Sm (Negative) 03/06/21 14:34 Urine Nitrite Neg (Negative) 03/06/21 14:34 Urine Bilirubin Neg (Negative) 03/06/21 14:34 Urine Urobilinogen 4.0 mg/dL (<2.0) 03/06/21 14:34 Ur Leukocyte Esterase Neg (Negative) 03/06/21 14:34 Urine WBC (Auto) 103.0 /HPF (0.0-6.0) H 03/06/21 14:34 Urine RBC (Auto) 105.0 /HPF (0.0-6.0) 03/06/21 14:34 U Epithel Cells (Auto) 5.0 /HPF (0-13.0) 03/06/21 14:34 Urine Bacteria (Auto) 2+ /HPF (Negative) 03/06/21 14:34 Hyaline Casts 5 /LPF 03/06/21 14:34 Urine Mucus 1+ /HPF 03/06/21 14:34 Urine Yeast (Budding) Few /HPF 03/01/21 21:40 Urine Sperm 3+ /HPF (SIGN WRITER LETTERER OR PAINTER) 03/06/21 14:34 Nasal Screen MRSA (PCR) Positive (Negative) 03/02/21 05:00 Salicylates < 0.3 mg/dL (2.8-20.0) L 03/01/21 19:21 Urine Opiates Screen Positive 03/01/21 21:40 Urine Methadone Screen Negative 03/01/21 21:40 Acetaminophen 5.0 ug/mL (10.0-30.0) L 03/01/21 19:21 Ur Barbiturates Screen Negative 03/01/21 21:40 Ur Phencyclidine Scrn Negative 03/01/21 21:40 Ur Amphetamines Screen Negative 03/01/21 21:40 U Benzodiazepines Scrn Negative 03/01/21 21:40 Urine Cocaine Screen Negative 03/01/21 21:40 U Marijuana (THC) Screen Negative 03/01/21 21:40 Drugs of Abuse Note Disclamer 03/01/21 21:40 KARLA Screen Negative (Negative) 03/03/21 04:06 Coronavirus (PCR) Positive (Negative) A 03/05/21 Unknown Blood Type O POSITIVE 03/01/21 19:21 Antibody Screen Negative 03/01/21 19:21 Vilchis/IV: Voiding Method Incontinent Active Medications - Current Medications Current Medications: Generic Name Dose Route Start Last Admin Trade Name Freq PRN Reason Stop Dose Admin Acetaminophen 650 mg 03/06/21 10:00 03/06/21 12:33 Acetaminophen 325 Mg/10.15 Ml Oral Liqd Unit Dose FEEDTUBE 650 mg Q6H PRN Administration Pain MILD(1-3)/Fever >100.5/VALDES Albuterol 2.5 mg 03/02/21 15:45 03/11/21 23:05 Albuterol 2.5 Mg/3 Ml Nebu IH 2.5 mg Q4H PRN Administration Shortness Of Breath Lipase/Protease/Amylase 1 each 03/03/21 10:53 Lipase 10,500/Protease 25,000/Amylase 43,750 (Units) Dr Gutierrez FEEDTUBE PRN PRN For Clogged Feeding Tube Ascorbic Acid 500 mg 03/06/21 22:00 03/19/21 21:42 Ascorbic Acid 500 Mg Tab PO 500 mg BID KYLE Administration Aspirin 81 mg 03/04/21 10:00 03/19/21 10:01 Aspirin 81 Mg Tab Chew PO 81 mg QDAY KYLE Administration Cholecalciferol 5,000 unit 03/17/21 11:00 03/19/21 10:02 Cholecalciferol (Vit D3) 5,000 Unit Tab PO 5,000 unit QDAY KYLE Administration Clonazepam 0.5 mg 03/16/21 12:43 Clonazepam 0.5 Mg Tab PO BID PRN Anxiety Dextrose 50 ml 03/02/21 11:38 Dextrose 50% In Water (25gm) 50 Ml Syringe IV Q30MIN PRN Hypoglycemia Protocol Diltiazem HCl 60 mg 03/19/21 12:00 03/20/21 06:22 Diltiazem 60 Mg Tab PO 60 mg Q6HR KYLE Administration Enoxaparin Sodium 130 mg 03/09/21 11:00 03/19/21 21:41 Enoxaparin 150 Mg/1 Ml Inj SUB-Q 130 mg Q12HR KYLE Administration Protocol Famotidine 20 mg 03/04/21 10:00 03/19/21 21:42 Famotidine 20 Mg Tab PO 20 mg BID KYLE Administration Furosemide 80 mg 03/17/21 11:00 03/19/21 10:01 Furosemide 40 Mg Tab PO 80 mg QDAY KYLE Administration Guaifenesin 600 mg 03/11/21 22:00 03/19/21 23:31 Guaifenesin Er 600 Mg Tab PO 600 mg BID KYLE Administration Hydralazine HCl 10 mg 03/09/21 08:21 03/11/21 22:03 Hydralazine 20 Mg/1 Ml Inj IV 10 mg Q4H PRN Administration Hypertension Hydrophilic Ointment 1 applic 03/02/21 15:42 Lip Therapy Vaseline TP Q2H PRN Dry Lips Sodium Chloride 1,000 mls @ 1 mls/hr 03/06/21 18:11 Nacl 0.9% 500 Ml IV DIRECT PRN ARTERIAL LINE FLUSH Insulin Glargine 30 units 03/16/21 22:00 03/19/21 22:16 Insulin Glargine 100 Units/Ml SUB-Q 30 units QHS KYLE Administration Insulin Human Regular 0 units 03/10/21 18:00 03/20/21 06:25 Insulin Regular, Human 100 Units/1 Ml SUB-Q Not Given Q6HR [facility] Protocol Magnesium Hydroxide 30 ml 03/02/21 00:18 Magnesium Hydroxide (Mom) Oral Liqd Udc PO Q4H PRN Constipation Metoprolol Tartrate 5 mg 03/12/21 14:15 03/12/21 14:40 Metoprolol Tartrate 5 Mg/5 Ml Inj IV 5 mg Q6HR PRN Administration Tachyarrhythmias Miscellaneous Medication 145 mcg 03/17/21 10:00 Linaclotide [Linzess] PO QDAY [facility] Multi-Ingred Cream/Lotion/Oil/Oint 1 applic 03/02/21 15:42 Mineral Oil/Petrolatum, White Ophth Oint 3.5 Gm OU Q4HR PRN Dry Eye(s) Multivitamins/Minerals 1 each 03/03/21 22:00 03/19/21 21:41 Calcium Carb/Vit D3/Minerals 600 Mg/800 Units Tab PO 1 each BID KYLE Administration Pregabalin 50 mg 03/17/21 14:00 03/19/21 21:42 Pregabalin 50 Mg Cap PO 50 mg TID KYLE Administration Senna/Docusate Sodium 1 tab 03/02/21 22:00 03/19/21 21:42 Sennosides/Docusate Sodium 8.6/50 Mg Tab FEEDTUBE 1 tab BID KYLE Administration Simple Syrup 15 ml 03/03/21 10:53 Simple Syrup 15 Ml FEEDTUBE PRN PRN Hypoglycemia Simple Syrup 30 ml 03/03/21 10:53 Simple Syrup 15 Ml FEEDTUBE PRN PRN Hypoglycemia Sodium Bicarbonate 325 mg 03/03/21 10:53 Sodium Bicarbonate 325 Mg Tab FEEDTUBE PRN PRN For Clogged Feeding Tube Sodium Chloride 10 ml 03/02/21 10:00 03/19/21 21:43 Sodium Chloride 0.9% 10 Ml Flush Syringe IV 10 ml BID KYLE Administration Sodium Chloride 10 ml 03/02/21 00:18 Sodium Chloride 0.9% 10 Ml Flush Syringe IV PRN PRN LINE FLUSH Zinc Sulfate 220 mg 03/06/21 16:00 03/19/21 21:42 Zinc Sulfate 220 Mg Cap PO 220 mg BID KYLE Administration Ziprasidone 20 mg 03/14/21 11:18 Ziprasidone Mesylate 20 Mg Vial IM Q6H PRN Agitation Zolpidem Tartrate 5 mg 03/13/21 17:55 03/18/21 00:50 Zolpidem 5 Mg Tab PO 5 mg QHS PRN Administration Sleep Nutrition/Malnutrition Assess - Dietary Evaluation Nutrition/Malnutrition Findings: Nutrition Notes Start: 03/02/21 10:10 Freq: Status: Active Protocol: Document 03/19/21 11:26 (Rec: 03/19/21 11:31 [id number]) Nutrition Notes Initial or Follow up Reassessment Current Diagnosis Acute Kidney Injury,COPD, Diabetes,Sepsis,Hypertension, Heart Failure,Respiratory Failure Other Pertinent Diagnosis pneu, AMS, COVID(+) Current Diet Cardiac, Consistent CHO Labs/Tests reviewed Pertinent Medications reviewed Height 5 ft 10 in Weight 131 kg [place] Body Weight (kg) 75.45 BMI 41.4 Weight Status Morbidly Obese Subjective/Other Information Unable to speak with pt x2. Per tech, pt ate 25% of breakfasta and no ONS. Percent of energy/protein needs met: 27%/11% Burn Absent Trauma Absent Current % PO Poor (25-49%) Minimum of two criteria No Fluid Accumulation Mild (non-severe) #1 Nutrition Diagnosis Inadequate oral intake As Evidenced by Signs and Symptoms pt eating 25% of meals Diagnosis Progress(for reassessment Improved documentation) Is patient on ventilator? No Is Patient Ambulatory and/or Out of Bed No REE-([facility]-confined to bed) 2614.728 Kcal/Kg value to use for calculation 16 Approximate Energy Requirements Using 2096 kcal/Kg Calculation Used for Recommendations Kcal/kg Additional Notes Pro needs up to 2.5g/klg IBW: up to 189g/day Fluid needs 1ml/kcal Nutrition Intervention Change Diet Order: continue Add Supplement/Snack (indicate name/kcal Glucerna daily /protein ) Provides kCal: 220 Provides Protein (gm) 10 Goal #1 PO tolerance Goal #2 PO intake to meet at least 75% energy and pro needs Anticipated Discharge Needs: Cardiac, consistent [facility] Follow-Up By: 03/21/21 Additional Comments F/u: intakes and ONS tolerance
[2021-03-20] MEDS: PREGABALIN 50 MG CAP PO SCH ×3 (09:19→22:18)
[2021-03-20] MEDS ORDERED: dilTIAZem 60 MG TAB PO SCH (09:36)
--- NOTE | 2021-03-20 09:43 | Progress Note ---
Assessment and Plan SVT * Patient had SVT into 180s on 03/12/2021. Resolved after being given Adenosine 6mg IV. Patient was then started on Amio gtt * Received call from nurse on 03/19/2021 around 11:45am that patient heart rate was in 170s-180s. Upon review of telemetry the patient was in SVT 180s. Code was called and patient given 6mg of adenosine. Patient converted back to sinus tach 100s. * 03/20/2021- Patient sinus rhythm with short intermittent runs of SVT.Optimize rate control: Increased Cardizem 90mg PO Q6hrs. Hypertension * Discontinued labetolol and hydralizine. Increased Cardizem 90mg PO Q6hrs. HFpEF * Echo 12/13/2020 - EF 55-60%, otherwise technically difficult study. * Echo 05/2016 - LV mildly dilated, EF 55-60%, grade II diastolic dysfxn, RV mildly enlarged, normal RV sys fxn, LA mildly dilated, RA mildly dilated, mild-mod AR, mild SD, mild aortic root dilatation. * Echo 03/19/2021-EF 55 to 60%, mild diastolic dysfunction present, right ventricular systolic function is normal, left and right atrium are normal in size, mild aortic regurgitation. COVID-19 PNA Acute hypoxic resporitary failure * Patient positive for COVID-19 * Pulmonology and infectious disease are following History of Altered Mental Status * Patient intermittently altered * Management per primary team DVT of RLE * Patient on Enoxaparin 130mg SQ BID . Plan to transition to Coumadin once patient is hemodynamically stable * He was diagnosed with a LLE DVT in March 2020 and appears to have been on Coumadin as an outpatient. Increased Cardizem to 90mg PO Q6hrs for rate and arrhythmia control. Continue to monitor. Patient seen in conjunction with Dr. Kim who agrees with this plan of care. Will continue to follow. - Patient Problems (1) ALPHONSO (acute kidney injury) Current Visit: Yes Status: Acute (2) Acute and chronic respiratory failure ([id number]) Current Visit: Yes Status: Acute (3) Acute deep vein thrombosis (DVT) of right lower extremity Current Visit: Yes Status: Acute (4) Encephalopathy Current Visit: Yes Status: Acute (5) NSTEMI (non-ST elevated myocardial infarction) Current Visit: Yes Status: Acute (6) Transaminitis Current Visit: Yes Status: Acute (7) COPD (chronic obstructive pulmonary disease) Current Visit: Yes Status: Chronic (8) Chronic heart failure with preserved ejection fraction (HFpEF) Current Visit: Yes Status: Chronic (9) DM2 (diabetes mellitus, type 2) Current Visit: Yes Status: Chronic (10) H/O: HTN (hypertension) Current Visit: Yes Status: Chronic (11) History of pulmonary embolus (PE) Current Visit: Yes Status: Chronic (12) COVID-19 Current Visit: Yes Status: Acute Subjective Date of service: 03/20/21 Principal diagnosis: Ac hypoxemic resp failure; NSTEMI; ALPHONSO; Sepsis; PNA; CHF; DM II; AMS Interval history: Patient sitting in bed slightly confused Sinus 90s with runs of SVT on monitor Objective Last Vital Signs Temp 99.7 F H 03/20/21 05:58 Pulse 91 H 03/20/21 06:22 Resp 16 03/20/21 05:58 BP 141/91 03/20/21 06:22 Pulse Ox 95 03/20/21 05:58 - Physical Examination General: No Apparent Distress HEENT: Positive: PERRL, Normocephaly Neck: Positive: trachea midline Cardiac: Positive: Regular Rate Lungs: Positive: Decreased Breath Sounds Neuro: Positive: Grossly Intact Abdomen: Positive: Soft Skin: Negative: Rash Incision: Cardiac Cath Site Musculoskeletal: No Fluid Collection Extremities: Present: upper extr. pulses, lower extr. pulses, warm, Other (anasarca). Absent: edema - Imaging and Cardiology EKG: report reviewed, image reviewed Echo: report reviewed (12/2020 - EF 55-60%) Cardiac cath: pending - Telemetry EKG Rhythm: Sinus Rhythm - EKG Sinus rhythms and dysrhythmias: sinus rhythm Ventricular dysrhythmias: supraventricular captures AV and intraventricular conduction: right bundle branch block Repolarization changes or abnormalities: nonspecific abnormality, ST segment, and/or T wave - Allied health notes Allied health notes reviewed: nursing
[2021-03-20] MEDS: CHOLECALCIFEROL (VIT D3) 5,000 UNIT TAB PO SCH (12:03)
[2021-03-20] MEDS: FUROSEMIDE 40 MG TAB PO SCH (12:04)
[2021-03-20] MEDS: SENNOSIDES/DOCUSATE SODIUM 8.6/50 MG TAB FEEDTUBE SCH ×2 (12:04→22:18)
[2021-03-20] MEDS: ASPIRIN 81 MG TAB CHEW PO SCH (12:04)
[2021-03-20] MEDS: FAMOTIDINE 20 MG TAB PO SCH ×2 (12:04→22:18)
[2021-03-20] MEDS: ASCORBIC ACID 500 MG TAB PO SCH ×2 (12:04→22:17)
[2021-03-20] MEDS: CALCIUM CARB/VIT D3/MINERALS 600 MG/800 UNITS TAB PO SCH ×2 (12:04→22:18)
[2021-03-20] MEDS: ENOXAPARIN 150 MG/1 ML INJ SUB-Q SCH ×2 (12:05→22:20)
[2021-03-20] MEDS: ZINC SULFATE 220 MG CAP PO SCH ×2 (12:06→22:18)
[2021-03-20] MEDS: guaiFENesin ER 600 MG TAB PO SCH ×2 (12:06→22:21)
--- NOTE | 2021-03-20 17:02 | Progress Note ---
Assessment and Plan Cultures: SARS CoV2 PCR: Positive MRSA nasal PCR: Positive 03/01/2021 blood culture: No growth 03/01/2021 urine culture: No growth 03/02/2021 tracheal aspirate: Merlyn albicans 03/06/2021 blood culture: no growth 03/06/2021 urine culture: No growth A/P: 51-year-old male with COPD, chronic respiratory failure, CHF, diabetes, DVT/PE, morbid obesity on anticoagulation was admitted to the hospital on 03/01/2021 with altered mental status and shortness of breath: #Bilateral pneumonia: secondary to COVID-19. Completed empiric antibiotics. #Acute hypoxic respiratory failure: Now extubated, on high flow nasal cannula #Morbid obesity #Acute on chronic CHF #Transaminitis: Likely from COVID-19. Elevated LFTs with elevated alkaline phosphatase: RUQ ultrasound did not reveal any evidence of cholelithiasis, cholecystitis or choledocholithiasis. #Acute RLE DVT: On anticoagulation Recs: -Completed 10 days steroids. -Completed Remdesivir -Completed empiric antibiotics -on anticoagulation Kamar Schrader MD [facility] O: [phone] F: [phone] Subjective Date of service: 03/20/21 Principal diagnosis: Ac hypoxemic resp failure; NSTEMI; ALPHONSO; Sepsis; PNA; CHF; DM II; AMS Interval history: Afebrile, no acute changes. On high flow nasal cannula. Objective - Exam Narrative Exam: Physical exam deferred to reduce risk of transmission of COVID-19. Please refer to primary team's note. - Constitutional Vitals: Vital Signs Temp Pulse Resp BP Pulse Ox 99.7 F H 93 H 16 146/88 95 03/20/21 05:58 03/20/21 12:22 03/20/21 05:58 03/20/21 12:22 03/20/21 13:55 Temperature -Last 24 Hours Temperature 99.7 F Temperature 98.5 F - Labs CBC & Chem 7: 03/18/21 07:53 03/18/21 07:53 Labs: Abnormal lab results 03/19/21 03/20/21 03/20/21 Range/Units 22:05 13:05 16:47 POC Glucose 123 H 116 H 112 H (70-105) mg/dL
--- NOTE | 2021-03-20 20:42 | Progress Note ---
Assessment and Plan 51-year-old -[place] male with known history of COPD, CHF, diabetes mellitus, DVT and hypertension was brought into the emergency room by EMS for altered mental status and hypoxia. According to EMS patient was discharged from [facility] after treatment for CHF exacerbation. Patient was found to be altered upon waking up and on arrival of EMS oxygen saturation was about 88% on room air, blood pressure was said to be about 88/50 mmHg.Was subsequently placed on 5 L of oxygen by nasal cannula with improvement in his oxygen saturation. According to who was by the bedside patient was having some mild cough which was nonproductive. He has had no fever or chills. There has been no nausea or vomiting or abdominal pain. Patient has been fully vaccinated against COVID-19. Work-up in the emergency room, labs reveals leukocytosis of 12.7, hemoglobin of 9.1 and hematocrit of 27.7, sodium of 132, lactic acid of 2.90. Liver enzymes were abnormally elevated, troponin was also bumped at 0.493. CT of the chest shows findings concerning for atelectasis and or infiltrate, CT of the head was unremarkable. Patient was in severe respiratory distress upon arrival in the emergency room and subsequently intubated. Patient currently being admitted for mainly severe sepsis, respiratory failure, pneumonia and ALPHONSO. Patient is asleep, on vapotherm, FIO2 45% and O2 sat 96%. BIPAP stand by in the room. He is in no acute respiratory distress. Patient is afebrile. Has no leukocytosis. Hemoglobin 7.9. Hematocrit 24.9. Troponin: 0.185. Patient's Sanchez virus PCR is Positive. Cxray on 03/14/21 reported: reported Bibasilar pleural-parenchymal densities . No pneumothorax. No significant change in comparison to 03/12/21. Patients venous duplex studies done 03/04/21 reported Occlusive thrombus in the right posterior tibial vein. The remainder of the veins are patent. Patient is currently on albuterol, Mucinex, Enoxaparin in therapeutic dose and Pepcid. I spent critical care time of 32 minutes reviewing the chart, Examine the patient , review chst xray and venous doppler studies, review lab results, talking to the nursing and respiratory therapy staff and work out plan of treatment in this critically ill COVID Positive patient. - Patient Problems (1) Acute and chronic respiratory failure ([id number]) Current Visit: Yes Status: Acute Plan to address problem: Vapotherm, FIO2 45% Albuterol inhaler 2 puffs po q 4 hours prn for shortness of breath. S/C Lovenox Famotidine (2) Acute deep vein thrombosis (DVT) of right lower extremity Current Visit: Yes Status: Acute Plan to address problem: Continue S/C Lovenox in therapeutic dose. (3) ALPHONSO (acute kidney injury) Current Visit: Yes Status: Acute Plan to address problem: Management as per primary team and nephrology. (4) CHF (congestive heart failure) Current Visit: Yes Status: Acute Plan to address problem: Management as per primary team and cardiology (5) COVID-19 Current Visit: Yes Status: Acute Plan to address problem: Patient Positive for Sanchez virus PCR. Management as per infectious diseases. (6) COPD (chronic obstructive pulmonary disease) Current Visit: Yes Status: Chronic Plan to address problem: Vapotherm, FIO2 45% Albuterol inhaler 2 puffs po q 4 hours prn for shortness of breath. S/C Lovenox Famotidine PFTs as out when his condition improves. (7) DM2 (diabetes mellitus, type 2) Current Visit: Yes Status: Chronic Plan to address problem: Management as per primary team. (8) KAM (obstructive sleep apnea) Current Visit: Yes Status: Chronic Plan to address problem: BIPAP stand by in the room BIPAP during night time. Recommend sleep study as out patient. (9) Tobacco abuse Current Visit: Yes Status: Chronic Plan to address problem: Will vocational guidance counselor on smoking cessation. Subjective Date of service: 03/20/21 Principal diagnosis: Ac hypoxemic resp failure; NSTEMI; ALPHONSO; Sepsis; PNA; CHF; DM II; AMS Interval history: 51-year-old -[place] male with known history of COPD, CHF, diabetes mellitus, DVT and hypertension was brought into the emergency room by EMS for altered mental status and hypoxia. According to EMS patient was discharged from [facility] after treatment for CHF exacerbation. Patient was found to be altered upon waking up and on arrival of EMS oxygen saturation was about 88% on room air, blood pressure was said to be about 88/50 mmHg.Was subsequently placed on 5 L of oxygen by nasal cannula with improvement in his oxygen saturation. According to who was by the bedside patient was having some mild cough which was nonproductive. He has had no fever or chills. There has been no nausea or vomiting or abdominal pain. Patient has been fully vaccinated against COVID-19. Work-up in the emergency room, labs reveals leukocytosis of 12.7, hemoglobin of 9.1 and hematocrit of 27.7, sodium of 132, lactic acid of 2.90. Liver enzymes were abnormally elevated, troponin was also bumped at 0.493. CT of the chest shows findings concerning for atelectasis and or infiltrate, CT of the head was unremarkable. Patient was in severe respiratory distress upon arrival in the emergency room and subsequently intubated. Patient currently being admitted for mainly severe sepsis, respiratory failure, pneumonia and ALPHONSO. Patient is asleep, on vapotherm, FIO2 45% and O2 sat 96%. BIPAP stand by in the room. He is in no acute respiratory distress. Patient is afebrile. Has no leukocytosis. Hemoglobin 7.9. Hematocrit 24.9. Troponin: 0.185. Patient's Sanchez virus PCR is Positive. Cxray on 03/14/21 reported: reported Bibasilar pleural-parenchymal densities . No pneumothorax. No significant change in comparison to 03/12/21. Patients venous duplex studies done 03/04/21 reported Occlusive thrombus in the right posterior tibial vein. The remainder of the veins are patent. Patient is currently on albuterol, Mucinex, Enoxaparin in therapeutic dose and Pepcid. Objective Vital Signs - 12hr 03/20/21 03/20/21 03/20/21 10:00 10:02 12:22 Pulse Rate 93 H Blood Pressure 146/88 O2 Sat by Pulse 96 92 Oximetry 03/20/21 03/20/21 13:55 18:24 Pulse Rate 106 H Blood Pressure 146/88 O2 Sat by Pulse 95 Oximetry Constitutional: no acute distress, asleep, other (middle aged obese male with mildly increased respiratory effort at rest) Eyes: non-icteric ENT: oropharynx moist, other (extubated) Neck: supple, no lymphadenopathy, no JVD, other (large circumference) Effort: mildly labored Ascultation: Bilateral: diminished breath sounds, rhonchi (posterior bases) Percussion: Bilateral: not dull Cardiovascular: other (tachycardic) Gastrointestinal: normoactive bowel sounds, soft, non-tender, non-distended (pro tuberant) Integumentary: normal Extremities: no cyanosis, pulses normal, no ischemia or petechiae, edema (trace) Neurologic: pupils equal and round, other (Unable to assess as patient is asleep) Psychiatric: other (Unable to assess as patient is asleep) CBC and BMP: 03/18/21 07:53 03/21/21 13:30 ABG, PT/INR, D-dimer: ABG ABG pH 7.487 (7.320-7.450) H 03/10/21 12:33 POC ABG pCO2 40.4 mmHg (32.0-48.0) 03/10/21 12:33 POC ABG pO2 62.1 mmHg (83-108) L 03/10/21 12:33 POC ABG HCO3 29.9 03/10/21 12:33 ABG O2 Saturation 90.2 (0-100) 03/10/21 12:33 PT/INR, D-dimer PT 15.6 Sec. (12.2-14.9) H 03/04/21 10:17 INR 1.18 (0.87-1.13) H 03/04/21 10:17 D-Dimer 475.91 ng/mlDDU (0-234) H 03/14/21 03:40 Abnormal lab findings: Abnormal Labs 03/01/21 03/01/21 03/01/21 19:15 19:21 19:21 WBC 12.7 H RBC 2.77 L Hgb 9.1 L Hct 27.7 L MCV 100 H MCH 33 H RDW 18.0 H Seg Neutrophils % Monocytes % (Manual) 17.0 H Seg Neutrophils # Monocytes # (Manual) 2.2 H PT INR D-Dimer Heparin Anti-Xa Level ABG pH POC ABG pCO2 POC ABG pO2 64.9 L ABG Hemoglobin 9.3 L ABG Oxyhemoglobin 93.0 L ABG Sodium 133.8 L ABG Potassium ABG Chloride 97.0 L ABG Glucose 191 H Carboxyhemoglobin Sodium Potassium Chloride Carbon Dioxide BUN Creatinine Glucose POC Glucose Lactic Acid Calcium Phosphorus Magnesium Ferritin Total Bilirubin Direct Bilirubin AST ALT Alkaline Phosphatase Ammonia Lactate Dehydrogenase Troponin T 0.493 H* C-Reactive Protein Total Protein Albumin Triglycerides 400 H Cholesterol 232 H HDL Cholesterol 22 L Lipase Arterial Blood Glucose 191 H Arterial Blood Ionized Calcium 4.4 L Urine WBC (Auto) Salicylates Acetaminophen Coronavirus (PCR) 03/01/21 03/01/21 03/01/21 19:21 19:21 19:21 WBC RBC Hgb Hct MCV MCH RDW Seg Neutrophils % Monocytes % (Manual) Seg Neutrophils # Monocytes # (Manual) PT 16.6 H INR 1.28 H D-Dimer Heparin Anti-Xa Level ABG pH POC ABG pCO2 POC ABG pO2 ABG Hemoglobin ABG Oxyhemoglobin ABG Sodium ABG Potassium ABG Chloride ABG Glucose Carboxyhemoglobin Sodium 132 L Potassium Chloride 92.2 L Carbon Dioxide BUN 43 H Creatinine 2.4 H Glucose 190 H POC Glucose Lactic Acid 2.90 H* Calcium Phosphorus Magnesium Ferritin Total Bilirubin 1.60 H Direct Bilirubin 1.2 H AST 275 H ALT 156 H Alkaline Phosphatase 282 H Ammonia Lactate Dehydrogenase Troponin T C-Reactive Protein Total Protein 5.8 L Albumin 2.6 L Triglycerides Cholesterol HDL Cholesterol Lipase 120 H Arterial Blood Glucose Arterial Blood Ionized Calcium Urine WBC (Auto) Salicylates Acetaminophen Coronavirus (PCR) 03/01/21 03/01/21 03/01/21 19:21 19:21 19:21 WBC RBC Hgb Hct MCV MCH RDW Seg Neutrophils % Monocytes % (Manual) Seg Neutrophils # Monocytes # (Manual) PT INR D-Dimer Heparin Anti-Xa Level ABG pH POC ABG pCO2 POC ABG pO2 ABG Hemoglobin ABG Oxyhemoglobin ABG Sodium ABG Potassium ABG Chloride ABG Glucose Carboxyhemoglobin Sodium Potassium Chloride Carbon Dioxide BUN Creatinine Glucose POC Glucose Lactic Acid Calcium Phosphorus Magnesium Ferritin Total Bilirubin Direct Bilirubin AST ALT Alkaline Phosphatase Ammonia 71.0 H Lactate Dehydrogenase Troponin T C-Reactive Protein Total Protein Albumin Triglycerides Cholesterol HDL Cholesterol Lipase Arterial Blood Glucose Arterial Blood Ionized Calcium Urine WBC (Auto) Salicylates < 0.3 L Acetaminophen 5.0 L Coronavirus (PCR) 03/01/21 03/01/21 03/02/21 20:55 20:55 00:01 WBC RBC Hgb Hct MCV MCH RDW Seg Neutrophils % Monocytes % (Manual) Seg Neutrophils # Monocytes # (Manual) PT INR D-Dimer Heparin Anti-Xa Level ABG pH 7.234 L POC ABG pCO2 POC ABG pO2 240.5 H ABG Hemoglobin 9.3 L ABG Oxyhemoglobin 99.1 H ABG Sodium 135.3 L ABG Potassium ABG Chloride ABG Glucose 286 H Carboxyhemoglobin 0.3 L Sodium Potassium Chloride Carbon Dioxide BUN Creatinine Glucose POC Glucose Lactic Acid 4.30 H* Calcium Phosphorus Magnesium Ferritin Total Bilirubin Direct Bilirubin AST ALT Alkaline Phosphatase Ammonia Lactate Dehydrogenase Troponin T 0.484 H* C-Reactive Protein Total Protein Albumin Triglycerides Cholesterol HDL Cholesterol Lipase Arterial Blood Glucose 286 H Arterial Blood Ionized Calcium Urine WBC (Auto) Salicylates Acetaminophen Coronavirus (PCR) 03/02/21 03/02/21 03/02/21 03:42 05:23 06:35 WBC RBC Hgb Hct MCV MCH RDW Seg Neutrophils % Monocytes % (Manual) Seg Neutrophils # Monocytes # (Manual) PT INR D-Dimer Heparin Anti-Xa Level ABG pH 7.225 L POC ABG pCO2 POC ABG pO2 181.8 H ABG Hemoglobin 9.4 L ABG Oxyhemoglobin 98.6 H ABG Sodium 132.1 L ABG Potassium 5.0 H ABG Chloride ABG Glucose 454 H Carboxyhemoglobin 0.3 L Sodium Potassium Chloride Carbon Dioxide BUN Creatinine Glucose POC Glucose 410 H Lactic Acid 7.50 H* Calcium Phosphorus Magnesium Ferritin Total Bilirubin Direct Bilirubin AST ALT Alkaline Phosphatase Ammonia Lactate Dehydrogenase Troponin T C-Reactive Protein Total Protein Albumin Triglycerides Cholesterol HDL Cholesterol Lipase Arterial Blood Glucose 454 H Arterial Blood Ionized Calcium 4.2 L Urine WBC (Auto) Salicylates Acetaminophen Coronavirus (PCR) 03/02/21 03/02/21 03/02/21 10:48 10:48 10:48 WBC RBC Hgb Hct MCV MCH RDW Seg Neutrophils % Monocytes % (Manual) Seg Neutrophils # Monocytes # (Manual) PT INR D-Dimer Heparin Anti-Xa Level ABG pH POC ABG pCO2 POC ABG pO2 ABG Hemoglobin ABG Oxyhemoglobin ABG Sodium ABG Potassium ABG Chloride ABG Glucose Carboxyhemoglobin Sodium 132 L Potassium Chloride 93.3 L Carbon Dioxide 20 L BUN 46 H Creatinine 1.9 H Glucose 503 H* POC Glucose Lactic Acid 3.40 H* Calcium 7.9 L Phosphorus 5.80 H Magnesium Ferritin Total Bilirubin Direct Bilirubin AST ALT Alkaline Phosphatase Ammonia Lactate Dehydrogenase Troponin T C-Reactive Protein Total Protein Albumin Triglycerides Cholesterol HDL Cholesterol Lipase Arterial Blood Glucose Arterial Blood Ionized Calcium Urine WBC (Auto) Salicylates Acetaminophen Coronavirus (PCR) 03/02/21 03/02/21 03/02/21 11:23 11:38 15:33 WBC RBC Hgb Hct MCV MCH RDW Seg Neutrophils % Monocytes % (Manual) Seg Neutrophils # Monocytes # (Manual) PT INR D-Dimer Heparin Anti-Xa Level ABG pH 7.318 L POC ABG pCO2 POC ABG pO2 ABG Hemoglobin 9.2 L ABG Oxyhemoglobin ABG Sodium 133.2 L ABG Potassium ABG Chloride ABG Glucose 504 H Carboxyhemoglobin 0.3 L Sodium Potassium Chloride Carbon Dioxide BUN Creatinine Glucose POC Glucose 468 H 445 H Lactic Acid Calcium Phosphorus Magnesium Ferritin Total Bilirubin Direct Bilirubin AST ALT Alkaline Phosphatase Ammonia Lactate Dehydrogenase Troponin T C-Reactive Protein Total Protein Albumin Triglycerides Cholesterol HDL Cholesterol Lipase Arterial Blood Glucose 504 H Arterial Blood Ionized Calcium 4.2 L Urine WBC (Auto) Salicylates Acetaminophen Coronavirus (PCR) 03/02/21 03/02/21 03/02/21 16:28 16:28 16:28 WBC RBC Hgb 8.8 L Hct 26.0 L MCV MCH RDW Seg Neutrophils % Monocytes % (Manual) Seg Neutrophils # Monocytes # (Manual) PT 15.2 H INR 1.14 H D-Dimer Heparin Anti-Xa Level ABG pH POC ABG pCO2 POC ABG pO2 ABG Hemoglobin ABG Oxyhemoglobin ABG Sodium ABG Potassium ABG Chloride ABG Glucose Carboxyhemoglobin Sodium 135 L Potassium Chloride 93.8 L Carbon Dioxide BUN 48 H Creatinine 1.8 H Glucose 454 H POC Glucose Lactic Acid Calcium 7.6 L Phosphorus Magnesium Ferritin Total Bilirubin Direct Bilirubin AST ALT Alkaline Phosphatase Ammonia Lactate Dehydrogenase Troponin T C-Reactive Protein Total Protein Albumin Triglycerides Cholesterol HDL Cholesterol Lipase Arterial Blood Glucose Arterial Blood Ionized Calcium Urine WBC (Auto) Salicylates Acetaminophen Coronavirus (PCR) 03/02/21 03/02/21 03/02/21 17:39 18:52 20:09 WBC RBC Hgb Hct MCV MCH RDW Seg Neutrophils % Monocytes % (Manual) Seg Neutrophils # Monocytes # (Manual) PT INR D-Dimer Heparin Anti-Xa Level ABG pH POC ABG pCO2 POC ABG pO2 ABG Hemoglobin ABG Oxyhemoglobin ABG Sodium ABG Potassium ABG Chloride ABG Glucose Carboxyhemoglobin Sodium Potassium Chloride Carbon Dioxide BUN Creatinine Glucose POC Glucose 404 H 357 H 347 H Lactic Acid Calcium Phosphorus Magnesium Ferritin Total Bilirubin Direct Bilirubin AST ALT Alkaline Phosphatase Ammonia Lactate Dehydrogenase Troponin T C-Reactive Protein Total Protein Albumin Triglycerides Cholesterol HDL Cholesterol Lipase Arterial Blood Glucose Arterial Blood Ionized Calcium Urine WBC (Auto) Salicylates Acetaminophen Coronavirus (PCR) 03/02/21 03/02/21 03/02/21 21:03 22:00 22:55 WBC RBC Hgb Hct MCV MCH RDW Seg Neutrophils % Monocytes % (Manual) Seg Neutrophils # Monocytes # (Manual) PT INR D-Dimer Heparin Anti-Xa Level ABG pH POC ABG pCO2 POC ABG pO2 ABG Hemoglobin ABG Oxyhemoglobin ABG Sodium ABG Potassium ABG Chloride ABG Glucose Carboxyhemoglobin Sodium Potassium Chloride Carbon Dioxide BUN Creatinine Glucose POC Glucose 307 H 270 H 237 H Lactic Acid Calcium Phosphorus Magnesium Ferritin Total Bilirubin Direct Bilirubin AST ALT Alkaline Phosphatase Ammonia Lactate Dehydrogenase Troponin T C-Reactive Protein Total Protein Albumin Triglycerides Cholesterol HDL Cholesterol Lipase Arterial Blood Glucose Arterial Blood Ionized Calcium Urine WBC (Auto) Salicylates Acetaminophen Coronavirus (PCR) 03/03/21 03/03/21 03/03/21 00:02 00:57 02:01 WBC RBC Hgb Hct MCV MCH RDW Seg Neutrophils % Monocytes % (Manual) Seg Neutrophils # Monocytes # (Manual) PT INR D-Dimer Heparin Anti-Xa Level ABG pH POC ABG pCO2 POC ABG pO2 ABG Hemoglobin ABG Oxyhemoglobin ABG Sodium ABG Potassium ABG Chloride ABG Glucose Carboxyhemoglobin Sodium Potassium Chloride Carbon Dioxide BUN Creatinine Glucose POC Glucose 252 H 214 H 261 H Lactic Acid Calcium Phosphorus Magnesium Ferritin Total Bilirubin Direct Bilirubin AST ALT Alkaline Phosphatase Ammonia Lactate Dehydrogenase Troponin T C-Reactive Protein Total Protein Albumin Triglycerides Cholesterol HDL Cholesterol Lipase Arterial Blood Glucose Arterial Blood Ionized Calcium Urine WBC (Auto) Salicylates Acetaminophen Coronavirus (PCR) 03/03/21 03/03/21 03/03/21 03:07 03:10 03:50 WBC 13.7 H RBC 2.69 L Hgb 8.7 L Hct 26.9 L MCV 100 H MCH RDW 18.5 H Seg Neutrophils % 79.0 H Monocytes % (Manual) Seg Neutrophils # 10.8 H Monocytes # (Manual) PT INR D-Dimer Heparin Anti-Xa Level ABG pH POC ABG pCO2 50.9 H POC ABG pO2 81.9 L ABG Hemoglobin 8.7 L ABG Oxyhemoglobin ABG Sodium 134.2 L ABG Potassium ABG Chloride 96.0 L ABG Glucose 279 H Carboxyhemoglobin 0.4 L Sodium Potassium Chloride Carbon Dioxide BUN Creatinine Glucose POC Glucose 276 H Lactic Acid Calcium Phosphorus Magnesium Ferritin Total Bilirubin Direct Bilirubin AST ALT Alkaline Phosphatase Ammonia Lactate Dehydrogenase Troponin T C-Reactive Protein Total Protein Albumin Triglycerides Cholesterol HDL Cholesterol Lipase Arterial Blood Glucose 279 H Arterial Blood Ionized Calcium 3.9 L Urine WBC (Auto) Salicylates Acetaminophen Coronavirus (PCR) 03/03/21 03/03/21 03/03/21 03:50 04:06 04:32 WBC RBC Hgb Hct MCV MCH RDW Seg Neutrophils % Monocytes % (Manual) Seg Neutrophils # Monocytes # (Manual) PT INR D-Dimer Heparin Anti-Xa Level ABG pH POC ABG pCO2 POC ABG pO2 ABG Hemoglobin ABG Oxyhemoglobin ABG Sodium ABG Potassium ABG Chloride ABG Glucose Carboxyhemoglobin Sodium Potassium Chloride 94.2 L Carbon Dioxide BUN 45 H Creatinine 1.9 H Glucose 261 H POC Glucose 256 H Lactic Acid Calcium 7.3 L Phosphorus Magnesium Ferritin Total Bilirubin Direct Bilirubin 0.9 H AST 208 H ALT 148 H Alkaline Phosphatase 251 H Ammonia Lactate Dehydrogenase Troponin T C-Reactive Protein Total Protein 5.5 L Albumin 2.4 L Triglycerides Cholesterol HDL Cholesterol Lipase Arterial Blood Glucose Arterial Blood Ionized Calcium Urine WBC (Auto) Salicylates Acetaminophen Coronavirus (PCR) 03/03/21 03/03/21 03/03/21 05:23 06:06 07:07 WBC RBC Hgb Hct MCV MCH RDW Seg Neutrophils % Monocytes % (Manual) Seg Neutrophils # Monocytes # (Manual) PT INR D-Dimer Heparin Anti-Xa Level ABG pH POC ABG pCO2 POC ABG pO2 ABG Hemoglobin ABG Oxyhemoglobin ABG Sodium ABG Potassium ABG Chloride ABG Glucose Carboxyhemoglobin Sodium Potassium Chloride Carbon Dioxide BUN Creatinine Glucose POC Glucose 214 H 249 H 237 H Lactic Acid Calcium Phosphorus Magnesium Ferritin Total Bilirubin Direct Bilirubin AST ALT Alkaline Phosphatase Ammonia Lactate Dehydrogenase Troponin T C-Reactive Protein Total Protein Albumin Triglycerides Cholesterol HDL Cholesterol Lipase Arterial Blood Glucose Arterial Blood Ionized Calcium Urine WBC (Auto) Salicylates Acetaminophen Coronavirus (PCR) 03/03/21 03/03/21 03/03/21 07:58 08:58 09:52 WBC RBC Hgb Hct MCV MCH RDW Seg Neutrophils % Monocytes % (Manual) Seg Neutrophils # Monocytes # (Manual) PT INR D-Dimer Heparin Anti-Xa Level ABG pH POC ABG pCO2 POC ABG pO2 ABG Hemoglobin ABG Oxyhemoglobin ABG Sodium ABG Potassium ABG Chloride ABG Glucose Carboxyhemoglobin Sodium Potassium Chloride Carbon Dioxide BUN Creatinine Glucose POC Glucose 227 H 215 H 207 H Lactic Acid Calcium Phosphorus Magnesium Ferritin Total Bilirubin Direct Bilirubin AST ALT Alkaline Phosphatase Ammonia Lactate Dehydrogenase Troponin T C-Reactive Protein Total Protein Albumin Triglycerides Cholesterol HDL Cholesterol Lipase Arterial Blood Glucose Arterial Blood Ionized Calcium Urine WBC (Auto) Salicylates Acetaminophen Coronavirus (PCR) 03/03/21 03/03/21 03/03/21 10:55 11:44 12:53 WBC RBC Hgb Hct MCV MCH RDW Seg Neutrophils % Monocytes % (Manual) Seg Neutrophils # Monocytes # (Manual) PT INR D-Dimer Heparin Anti-Xa Level ABG pH POC ABG pCO2 POC ABG pO2 ABG Hemoglobin ABG Oxyhemoglobin ABG Sodium ABG Potassium ABG Chloride ABG Glucose Carboxyhemoglobin Sodium Potassium Chloride Carbon Dioxide BUN Creatinine Glucose POC Glucose 198 H 210 H 203 H Lactic Acid Calcium Phosphorus Magnesium Ferritin Total Bilirubin Direct Bilirubin AST ALT Alkaline Phosphatase Ammonia Lactate Dehydrogenase Troponin T C-Reactive Protein Total Protein Albumin Triglycerides Cholesterol HDL Cholesterol Lipase Arterial Blood Glucose Arterial Blood Ionized Calcium Urine WBC (Auto) Salicylates Acetaminophen Coronavirus (PCR) 03/03/21 03/03/21 03/03/21 13:53 14:58 15:23 WBC RBC Hgb Hct MCV MCH RDW Seg Neutrophils % Monocytes % (Manual) Seg Neutrophils # Monocytes # (Manual) PT INR D-Dimer Heparin Anti-Xa Level ABG pH POC ABG pCO2 POC ABG pO2 ABG Hemoglobin ABG Oxyhemoglobin ABG Sodium ABG Potassium ABG Chloride ABG Glucose Carboxyhemoglobin Sodium Potassium Chloride Carbon Dioxide BUN Creatinine Glucose POC Glucose 210 H 187 H Lactic Acid 3.10 H* Calcium Phosphorus Magnesium Ferritin Total Bilirubin Direct Bilirubin AST ALT Alkaline Phosphatase Ammonia Lactate Dehydrogenase Troponin T C-Reactive Protein Total Protein Albumin Triglycerides Cholesterol HDL Cholesterol Lipase Arterial Blood Glucose Arterial Blood Ionized Calcium Urine WBC (Auto) Salicylates Acetaminophen Coronavirus (PCR) 03/03/21 03/03/21 03/03/21 15:51 16:25 16:53 WBC RBC Hgb Hct MCV MCH RDW Seg Neutrophils % Monocytes % (Manual) Seg Neutrophils # Monocytes # (Manual) PT INR D-Dimer Heparin Anti-Xa Level ABG pH POC ABG pCO2 POC ABG pO2 ABG Hemoglobin ABG Oxyhemoglobin ABG Sodium ABG Potassium ABG Chloride ABG Glucose Carboxyhemoglobin Sodium Potassium Chloride 91.0 L Carbon Dioxide 34 H BUN 47 H Creatinine 1.7 H Glucose 190 H POC Glucose 182 H 179 H Lactic Acid Calcium 7.6 L Phosphorus Magnesium Ferritin Total Bilirubin Direct Bilirubin AST ALT Alkaline Phosphatase Ammonia Lactate Dehydrogenase Troponin T C-Reactive Protein Total Protein Albumin Triglycerides Cholesterol HDL Cholesterol Lipase Arterial Blood Glucose Arterial Blood Ionized Calcium Urine WBC (Auto) Salicylates Acetaminophen Coronavirus (PCR) 03/03/21 03/03/21 03/03/21 17:55 19:37 20:57 WBC RBC Hgb Hct MCV MCH RDW Seg Neutrophils % Monocytes % (Manual) Seg Neutrophils # Monocytes # (Manual) PT INR D-Dimer Heparin Anti-Xa Level ABG pH POC ABG pCO2 POC ABG pO2 ABG Hemoglobin ABG Oxyhemoglobin ABG Sodium ABG Potassium ABG Chloride ABG Glucose Carboxyhemoglobin Sodium Potassium Chloride Carbon Dioxide BUN Creatinine Glucose POC Glucose 185 H 174 H 175 H Lactic Acid Calcium Phosphorus Magnesium Ferritin Total Bilirubin Direct Bilirubin AST ALT Alkaline Phosphatase Ammonia Lactate Dehydrogenase Troponin T C-Reactive Protein Total Protein Albumin Triglycerides Cholesterol HDL Cholesterol Lipase Arterial Blood Glucose Arterial Blood Ionized Calcium Urine WBC (Auto) Salicylates Acetaminophen Coronavirus (PCR) 03/03/21 03/03/21 03/03/21 22:02 22:56 23:10 WBC RBC Hgb Hct MCV MCH RDW Seg Neutrophils % Monocytes % (Manual) Seg Neutrophils # Monocytes # (Manual) PT INR D-Dimer Heparin Anti-Xa Level 0.75 H ABG pH POC ABG pCO2 POC ABG pO2 ABG Hemoglobin ABG Oxyhemoglobin ABG Sodium ABG Potassium ABG Chloride ABG Glucose Carboxyhemoglobin Sodium Potassium Chloride Carbon Dioxide BUN Creatinine Glucose POC Glucose 170 H 160 H Lactic Acid Calcium Phosphorus Magnesium Ferritin Total Bilirubin Direct Bilirubin AST ALT Alkaline Phosphatase Ammonia Lactate Dehydrogenase Troponin T C-Reactive Protein Total Protein Albumin Triglycerides Cholesterol HDL Cholesterol Lipase Arterial Blood Glucose Arterial Blood Ionized Calcium Urine WBC (Auto) Salicylates Acetaminophen Coronavirus (PCR) 03/03/21 03/04/21 03/04/21 23:42 00:52 01:55 WBC RBC Hgb Hct MCV MCH RDW Seg Neutrophils % Monocytes % (Manual) Seg Neutrophils # Monocytes # (Manual) PT INR D-Dimer Heparin Anti-Xa Level ABG pH POC ABG pCO2 POC ABG pO2 ABG Hemoglobin ABG Oxyhemoglobin ABG Sodium ABG Potassium ABG Chloride ABG Glucose Carboxyhemoglobin Sodium Potassium Chloride Carbon Dioxide BUN Creatinine Glucose POC Glucose 161 H 167 H 119 H Lactic Acid Calcium Phosphorus Magnesium Ferritin Total Bilirubin Direct Bilirubin AST ALT Alkaline Phosphatase Ammonia Lactate Dehydrogenase Troponin T C-Reactive Protein Total Protein Albumin Triglycerides Cholesterol HDL Cholesterol Lipase Arterial Blood Glucose Arterial Blood Ionized Calcium Urine WBC (Auto) Salicylates Acetaminophen Coronavirus (PCR) 03/04/21 03/04/21 03/04/21 02:58 03:47 04:03 WBC RBC Hgb Hct MCV MCH RDW Seg Neutrophils % Monocytes % (Manual) Seg Neutrophils # Monocytes # (Manual) PT INR D-Dimer Heparin Anti-Xa Level ABG pH POC ABG pCO2 57.3 H POC ABG pO2 63.7 L ABG Hemoglobin 8.4 L ABG Oxyhemoglobin 88.6 L ABG Sodium 132.5 L ABG Potassium 3.2 L ABG Chloride 94.0 L ABG Glucose 129 H Carboxyhemoglobin Sodium Potassium Chloride Carbon Dioxide BUN Creatinine Glucose POC Glucose 111 H 122 H Lactic Acid Calcium Phosphorus Magnesium Ferritin Total Bilirubin Direct Bilirubin AST ALT Alkaline Phosphatase Ammonia Lactate Dehydrogenase Troponin T C-Reactive Protein Total Protein Albumin Triglycerides Cholesterol HDL Cholesterol Lipase Arterial Blood Glucose 129 H Arterial Blood Ionized Calcium 3.8 L Urine WBC (Auto) Salicylates Acetaminophen Coronavirus (PCR) 03/04/21 03/04/21 03/04/21 05:15 05:26 05:26 WBC RBC Hgb 7.9 L Hct 23.7 L MCV MCH RDW Seg Neutrophils % Monocytes % (Manual) Seg Neutrophils # Monocytes # (Manual) PT INR D-Dimer Heparin Anti-Xa Level ABG pH POC ABG pCO2 POC ABG pO2 ABG Hemoglobin ABG Oxyhemoglobin ABG Sodium ABG Potassium ABG Chloride ABG Glucose Carboxyhemoglobin Sodium Potassium Chloride Carbon Dioxide BUN Creatinine Glucose POC Glucose 127 H Lactic Acid Calcium Phosphorus Magnesium Ferritin Total Bilirubin Direct Bilirubin 0.6 H AST 123 H ALT 105 H Alkaline Phosphatase 232 H Ammonia Lactate Dehydrogenase Troponin T C-Reactive Protein Total Protein 4.8 L Albumin 2.2 L Triglycerides Cholesterol HDL Cholesterol Lipase Arterial Blood Glucose Arterial Blood Ionized Calcium Urine WBC (Auto) Salicylates Acetaminophen Coronavirus (PCR) 03/04/21 03/04/21 03/04/21 05:26 06:01 06:53 WBC RBC Hgb Hct MCV MCH RDW Seg Neutrophils % Monocytes % (Manual) Seg Neutrophils # Monocytes # (Manual) PT INR D-Dimer Heparin Anti-Xa Level 0.71 H ABG pH POC ABG pCO2 POC ABG pO2 ABG Hemoglobin ABG Oxyhemoglobin ABG Sodium ABG Potassium ABG Chloride ABG Glucose Carboxyhemoglobin Sodium Potassium Chloride Carbon Dioxide BUN Creatinine Glucose POC Glucose 120 H 117 H Lactic Acid Calcium Phosphorus Magnesium Ferritin Total Bilirubin Direct Bilirubin AST ALT Alkaline Phosphatase Ammonia Lactate Dehydrogenase Troponin T C-Reactive Protein Total Protein Albumin Triglycerides Cholesterol HDL Cholesterol Lipase Arterial Blood Glucose Arterial Blood Ionized Calcium Urine WBC (Auto) Salicylates Acetaminophen Coronavirus (PCR) 03/04/21 03/04/21 03/04/21 07:57 10:17 10:17 WBC RBC 2.51 L Hgb 8.3 L Hct 25.3 L MCV 101 H MCH 33 H RDW 18.5 H Seg Neutrophils % Monocytes % (Manual) Seg Neutrophils # Monocytes # (Manual) PT INR D-Dimer Heparin Anti-Xa Level ABG pH POC ABG pCO2 POC ABG pO2 ABG Hemoglobin ABG Oxyhemoglobin ABG Sodium ABG Potassium ABG Chloride ABG Glucose Carboxyhemoglobin Sodium 136 L Potassium Chloride 93.1 L Carbon Dioxide 33 H BUN 46 H Creatinine 1.4 H Glucose 151 H POC Glucose 129 H Lactic Acid Calcium 7.5 L Phosphorus Magnesium Ferritin Total Bilirubin Direct Bilirubin AST 126 H ALT 100 H Alkaline Phosphatase 226 H Ammonia Lactate Dehydrogenase Troponin T C-Reactive Protein Total Protein 5.0 L Albumin 2.2 L Triglycerides Cholesterol HDL Cholesterol Lipase Arterial Blood Glucose Arterial Blood Ionized Calcium Urine WBC (Auto) Salicylates Acetaminophen Coronavirus (PCR) 03/04/21 03/04/21 03/04/21 10:17 10:17 11:26 WBC RBC Hgb Hct MCV MCH RDW Seg Neutrophils % Monocytes % (Manual) Seg Neutrophils # Monocytes # (Manual) PT 15.6 H INR 1.18 H D-Dimer Heparin Anti-Xa Level ABG pH POC ABG pCO2 POC ABG pO2 ABG Hemoglobin ABG Oxyhemoglobin ABG Sodium ABG Potassium ABG Chloride ABG Glucose Carboxyhemoglobin Sodium Potassium Chloride Carbon Dioxide BUN Creatinine Glucose POC Glucose 167 H Lactic Acid Calcium Phosphorus Magnesium Ferritin Total Bilirubin Direct Bilirubin AST ALT Alkaline Phosphatase Ammonia Lactate Dehydrogenase Troponin T C-Reactive Protein Total Protein Albumin Triglycerides Cholesterol HDL Cholesterol Lipase 78 H Arterial Blood Glucose Arterial Blood Ionized Calcium Urine WBC (Auto) Salicylates Acetaminophen Coronavirus (PCR) 03/04/21 03/04/21 03/04/21 13:04 16:26 17:58 WBC RBC Hgb 7.7 L Hct 23.2 L MCV MCH RDW Seg Neutrophils % Monocytes % (Manual) Seg Neutrophils # Monocytes # (Manual) PT INR D-Dimer Heparin Anti-Xa Level < 0.10 L ABG pH POC ABG pCO2 POC ABG pO2 ABG Hemoglobin ABG Oxyhemoglobin ABG Sodium ABG Potassium ABG Chloride ABG Glucose Carboxyhemoglobin Sodium Potassium Chloride Carbon Dioxide BUN Creatinine Glucose POC Glucose 167 H Lactic Acid Calcium Phosphorus Magnesium Ferritin Total Bilirubin Direct Bilirubin AST ALT Alkaline Phosphatase Ammonia Lactate Dehydrogenase Troponin T C-Reactive Protein Total Protein Albumin Triglycerides Cholesterol HDL Cholesterol Lipase Arterial Blood Glucose Arterial Blood Ionized Calcium Urine WBC (Auto) Salicylates Acetaminophen Coronavirus (PCR) 03/04/21 03/05/21 03/05/21 23:47 04:00 05:06 WBC RBC Hgb Hct MCV MCH RDW Seg Neutrophils % Monocytes % (Manual) Seg Neutrophils # Monocytes # (Manual) PT INR D-Dimer Heparin Anti-Xa Level ABG pH POC ABG pCO2 POC ABG pO2 129.1 H ABG Hemoglobin 8.3 L ABG Oxyhemoglobin ABG Sodium 131.4 L ABG Potassium ABG Chloride 95.0 L ABG Glucose 153 H Carboxyhemoglobin Sodium Potassium Chloride Carbon Dioxide BUN Creatinine Glucose POC Glucose 153 H 139 H Lactic Acid Calcium Phosphorus Magnesium Ferritin Total Bilirubin Direct Bilirubin AST ALT Alkaline Phosphatase Ammonia Lactate Dehydrogenase Troponin T C-Reactive Protein Total Protein Albumin Triglycerides Cholesterol HDL Cholesterol Lipase Arterial Blood Glucose 153 H Arterial Blood Ionized Calcium Urine WBC (Auto) Salicylates Acetaminophen Coronavirus (PCR) 03/05/21 03/05/21 03/05/21 11:43 13:35 13:35 WBC RBC 2.38 L Hgb 7.8 L Hct 23.8 L MCV 100 H MCH 33 H RDW 18.2 H Seg Neutrophils % Monocytes % (Manual) Seg Neutrophils # Monocytes # (Manual) PT INR D-Dimer Heparin Anti-Xa Level ABG pH POC ABG pCO2 POC ABG pO2 ABG Hemoglobin ABG Oxyhemoglobin ABG Sodium ABG Potassium ABG Chloride ABG Glucose Carboxyhemoglobin Sodium Potassium Chloride 94.4 L Carbon Dioxide BUN 49 H Creatinine 1.6 H Glucose 165 H POC Glucose 174 H Lactic Acid Calcium 7.5 L Phosphorus Magnesium Ferritin Total Bilirubin Direct Bilirubin AST ALT Alkaline Phosphatase Ammonia Lactate Dehydrogenase Troponin T C-Reactive Protein Total Protein Albumin Triglycerides Cholesterol HDL Cholesterol Lipase Arterial Blood Glucose Arterial Blood Ionized Calcium Urine WBC (Auto) Salicylates Acetaminophen Coronavirus (PCR) 03/05/21 03/05/21 03/05/21 17:57 21:27 Unknown WBC RBC Hgb Hct MCV MCH RDW Seg Neutrophils % Monocytes % (Manual) Seg Neutrophils # Monocytes # (Manual) PT INR D-Dimer Heparin Anti-Xa Level ABG pH POC ABG pCO2 POC ABG pO2 ABG Hemoglobin ABG Oxyhemoglobin ABG Sodium ABG Potassium ABG Chloride ABG Glucose Carboxyhemoglobin Sodium Potassium Chloride Carbon Dioxide BUN Creatinine Glucose POC Glucose 129 H 129 H Lactic Acid Calcium Phosphorus Magnesium Ferritin Total Bilirubin Direct Bilirubin AST ALT Alkaline Phosphatase Ammonia Lactate Dehydrogenase Troponin T C-Reactive Protein Total Protein Albumin Triglycerides Cholesterol HDL Cholesterol Lipase Arterial Blood Glucose Arterial Blood Ionized Calcium Urine WBC (Auto) Salicylates Acetaminophen Coronavirus (PCR) Positive A 03/06/21 03/06/21 03/06/21 03:30 04:30 05:20 WBC 15.2 H RBC 2.48 L Hgb 8.2 L Hct 24.9 L MCV 100 H MCH 33 H RDW 18.6 H Seg Neutrophils % 72.6 H Monocytes % (Manual) Seg Neutrophils # 11.1 H Monocytes # (Manual) PT INR D-Dimer Heparin Anti-Xa Level ABG pH POC ABG pCO2 49.7 H POC ABG pO2 65.1 L ABG Hemoglobin 9.1 L ABG Oxyhemoglobin 90.2 L ABG Sodium 131.2 L ABG Potassium ABG Chloride 96.0 L ABG Glucose 133 H Carboxyhemoglobin Sodium Potassium Chloride Carbon Dioxide BUN Creatinine Glucose POC Glucose Lactic Acid Calcium Phosphorus Magnesium Ferritin Total Bilirubin Direct Bilirubin AST ALT Alkaline Phosphatase Ammonia Lactate Dehydrogenase Troponin T C-Reactive Protein 27.90 H Total Protein Albumin Triglycerides Cholesterol HDL Cholesterol Lipase Arterial Blood Glucose 133 H Arterial Blood Ionized Calcium 4.2 L Urine WBC (Auto) Salicylates Acetaminophen Coronavirus (PCR) 03/06/21 03/06/21 03/06/21 05:20 05:30 11:52 WBC RBC Hgb Hct MCV MCH RDW Seg Neutrophils % Monocytes % (Manual) Seg Neutrophils # Monocytes # (Manual) PT INR D-Dimer Heparin Anti-Xa Level ABG pH POC ABG pCO2 POC ABG pO2 ABG Hemoglobin ABG Oxyhemoglobin ABG Sodium ABG Potassium ABG Chloride ABG Glucose Carboxyhemoglobin Sodium 135 L Potassium Chloride 94.5 L Carbon Dioxide BUN 49 H Creatinine Glucose 121 H POC Glucose 123 H 123 H Lactic Acid Calcium 7.3 L Phosphorus Magnesium 1.50 L Ferritin Total Bilirubin Direct Bilirubin AST 120 H ALT 74 H Alkaline Phosphatase 306 H Ammonia Lactate Dehydrogenase Troponin T C-Reactive Protein Total Protein 4.5 L Albumin 2.0 L Triglycerides Cholesterol HDL Cholesterol Lipase Arterial Blood Glucose Arterial Blood Ionized Calcium Urine WBC (Auto) Salicylates Acetaminophen Coronavirus (PCR) 03/06/21 03/06/21 03/06/21 14:34 17:45 23:36 WBC RBC Hgb Hct MCV MCH RDW Seg Neutrophils % Monocytes % (Manual) Seg Neutrophils # Monocytes # (Manual) PT INR D-Dimer Heparin Anti-Xa Level ABG pH POC ABG pCO2 POC ABG pO2 ABG Hemoglobin ABG Oxyhemoglobin ABG Sodium ABG Potassium ABG Chloride ABG Glucose Carboxyhemoglobin Sodium Potassium Chloride Carbon Dioxide BUN Creatinine Glucose POC Glucose 140 H 209 H Lactic Acid Calcium Phosphorus Magnesium Ferritin Total Bilirubin Direct Bilirubin AST ALT Alkaline Phosphatase Ammonia Lactate Dehydrogenase Troponin T C-Reactive Protein Total Protein Albumin Triglycerides Cholesterol HDL Cholesterol Lipase Arterial Blood Glucose Arterial Blood Ionized Calcium Urine WBC (Auto) 103.0 H Salicylates Acetaminophen Coronavirus (PCR) 03/07/21 03/07/21 03/07/21 03:00 05:32 08:16 WBC RBC Hgb Hct MCV MCH RDW Seg Neutrophils % Monocytes % (Manual) Seg Neutrophils # Monocytes # (Manual) PT INR D-Dimer Heparin Anti-Xa Level ABG pH POC ABG pCO2 POC ABG pO2 ABG Hemoglobin 8.9 L ABG Oxyhemoglobin ABG Sodium 131.4 L ABG Potassium ABG Chloride ABG Glucose 224 H Carboxyhemoglobin Sodium 136 L Potassium Chloride 95.3 L Carbon Dioxide BUN 45 H Creatinine Glucose 210 H POC Glucose 213 H Lactic Acid Calcium 8.0 L Phosphorus Magnesium Ferritin Total Bilirubin 1.30 H Direct Bilirubin AST 144 H ALT 66 H Alkaline Phosphatase 335 H Ammonia Lactate Dehydrogenase Troponin T C-Reactive Protein Total Protein 4.9 L Albumin 2.1 L Triglycerides Cholesterol HDL Cholesterol Lipase Arterial Blood Glucose 224 H Arterial Blood Ionized Calcium 4.3 L Urine WBC (Auto) Salicylates Acetaminophen Coronavirus (PCR) 03/07/21 03/07/21 03/07/21 08:16 08:16 08:16 WBC RBC 2.47 L Hgb 8.2 L Hct 24.6 L MCV 100 H MCH 33 H RDW 18.1 H Seg Neutrophils % Monocytes % (Manual) Seg Neutrophils # Monocytes # (Manual) PT INR D-Dimer 403.72 H Heparin Anti-Xa Level ABG pH POC ABG pCO2 POC ABG pO2 ABG Hemoglobin ABG Oxyhemoglobin ABG Sodium ABG Potassium ABG Chloride ABG Glucose Carboxyhemoglobin Sodium Potassium Chloride Carbon Dioxide BUN Creatinine Glucose POC Glucose Lactic Acid Calcium Phosphorus Magnesium Ferritin Total Bilirubin Direct Bilirubin AST ALT Alkaline Phosphatase Ammonia Lactate Dehydrogenase 453 H Troponin T C-Reactive Protein 32.50 H Total Protein Albumin Triglycerides Cholesterol HDL Cholesterol Lipase Arterial Blood Glucose Arterial Blood Ionized Calcium Urine WBC (Auto) Salicylates Acetaminophen Coronavirus (PCR) 03/07/21 03/07/21 03/07/21 08:16 11:24 17:22 WBC RBC Hgb Hct MCV MCH RDW Seg Neutrophils % Monocytes % (Manual) Seg Neutrophils # Monocytes # (Manual) PT INR D-Dimer Heparin Anti-Xa Level ABG pH POC ABG pCO2 POC ABG pO2 ABG Hemoglobin ABG Oxyhemoglobin ABG Sodium ABG Potassium ABG Chloride ABG Glucose Carboxyhemoglobin Sodium Potassium Chloride Carbon Dioxide BUN Creatinine Glucose POC Glucose 205 H 211 H Lactic Acid Calcium Phosphorus Magnesium Ferritin > 2000.0 H Total Bilirubin Direct Bilirubin AST ALT Alkaline Phosphatase Ammonia Lactate Dehydrogenase Troponin T C-Reactive Protein Total Protein Albumin Triglycerides Cholesterol HDL Cholesterol Lipase Arterial Blood Glucose Arterial Blood Ionized Calcium Urine WBC (Auto) Salicylates Acetaminophen Coronavirus (PCR) 03/07/21 03/08/21 03/08/21 Unknown 00:05 04:00 WBC RBC Hgb Hct MCV MCH RDW Seg Neutrophils % Monocytes % (Manual) Seg Neutrophils # Monocytes # (Manual) PT INR D-Dimer Heparin Anti-Xa Level 0.94 H ABG pH 7.452 H POC ABG pCO2 POC ABG pO2 75.5 L ABG Hemoglobin 10.0 L ABG Oxyhemoglobin 93.5 L ABG Sodium 134.7 L ABG Potassium ABG Chloride ABG Glucose 268 H Carboxyhemoglobin 0.3 L Sodium Potassium Chloride Carbon Dioxide BUN Creatinine Glucose POC Glucose 253 H Lactic Acid Calcium Phosphorus Magnesium Ferritin Total Bilirubin Direct Bilirubin AST ALT Alkaline Phosphatase Ammonia Lactate Dehydrogenase Troponin T C-Reactive Protein Total Protein Albumin Triglycerides Cholesterol HDL Cholesterol Lipase Arterial Blood Glucose 268 H Arterial Blood Ionized Calcium 4.5 L Urine WBC (Auto) Salicylates Acetaminophen Coronavirus (PCR) 03/08/21 03/08/21 03/08/21 05:27 06:10 06:10 WBC RBC 2.62 L Hgb 8.4 L Hct 26.0 L MCV 100 H MCH RDW 18.0 H Seg Neutrophils % Monocytes % (Manual) Seg Neutrophils # Monocytes # (Manual) PT INR D-Dimer Heparin Anti-Xa Level ABG pH POC ABG pCO2 POC ABG pO2 ABG Hemoglobin ABG Oxyhemoglobin ABG Sodium ABG Potassium ABG Chloride ABG Glucose Carboxyhemoglobin Sodium Potassium Chloride Carbon Dioxide BUN 49 H Creatinine Glucose 280 H POC Glucose 273 H Lactic Acid Calcium Phosphorus Magnesium Ferritin Total Bilirubin Direct Bilirubin AST 130 H ALT 68 H Alkaline Phosphatase 440 H Ammonia Lactate Dehydrogenase Troponin T C-Reactive Protein Total Protein 5.3 L Albumin 1.9 L Triglycerides Cholesterol HDL Cholesterol Lipase Arterial Blood Glucose Arterial Blood Ionized Calcium Urine WBC (Auto) Salicylates Acetaminophen Coronavirus (PCR) 03/08/21 03/08/21 03/08/21 11:27 17:56 23:20 WBC RBC Hgb Hct MCV MCH RDW Seg Neutrophils % Monocytes % (Manual) Seg Neutrophils # Monocytes # (Manual) PT INR D-Dimer Heparin Anti-Xa Level ABG pH POC ABG pCO2 POC ABG pO2 ABG Hemoglobin ABG Oxyhemoglobin ABG Sodium ABG Potassium ABG Chloride ABG Glucose Carboxyhemoglobin Sodium Potassium Chloride Carbon Dioxide BUN Creatinine Glucose POC Glucose 258 H 279 H 289 H Lactic Acid Calcium Phosphorus Magnesium Ferritin Total Bilirubin Direct Bilirubin AST ALT Alkaline Phosphatase Ammonia Lactate Dehydrogenase Troponin T C-Reactive Protein Total Protein Albumin Triglycerides Cholesterol HDL Cholesterol Lipase Arterial Blood Glucose Arterial Blood Ionized Calcium Urine WBC (Auto) Salicylates Acetaminophen Coronavirus (PCR) 03/09/21 03/09/21 03/09/21 04:00 05:12 08:00 WBC RBC Hgb Hct MCV MCH RDW Seg Neutrophils % Monocytes % (Manual) Seg Neutrophils # Monocytes # (Manual) PT INR D-Dimer 249.59 H Heparin Anti-Xa Level ABG pH 7.456 H POC ABG pCO2 POC ABG pO2 ABG Hemoglobin 8.9 L ABG Oxyhemoglobin ABG Sodium 135.6 L ABG Potassium ABG Chloride ABG Glucose 298 H Carboxyhemoglobin 0.3 L Sodium Potassium Chloride Carbon Dioxide BUN Creatinine Glucose POC Glucose 267 H Lactic Acid Calcium Phosphorus Magnesium Ferritin Total Bilirubin Direct Bilirubin AST ALT Alkaline Phosphatase Ammonia Lactate Dehydrogenase Troponin T C-Reactive Protein Total Protein Albumin Triglycerides Cholesterol HDL Cholesterol Lipase Arterial Blood Glucose 298 H Arterial Blood Ionized Calcium 4.5 L Urine WBC (Auto) Salicylates Acetaminophen Coronavirus (PCR) 03/09/21 03/09/21 03/09/21 08:00 08:00 08:00 WBC RBC Hgb Hct MCV MCH RDW Seg Neutrophils % Monocytes % (Manual) Seg Neutrophils # Monocytes # (Manual) PT INR D-Dimer Heparin Anti-Xa Level ABG pH POC ABG pCO2 POC ABG pO2 ABG Hemoglobin ABG Oxyhemoglobin ABG Sodium ABG Potassium ABG Chloride ABG Glucose Carboxyhemoglobin Sodium Potassium Chloride Carbon Dioxide BUN 44 H Creatinine Glucose 289 H POC Glucose Lactic Acid Calcium Phosphorus Magnesium Ferritin 2743.0 H Total Bilirubin Direct Bilirubin AST 134 H ALT 62 H Alkaline Phosphatase 527 H Ammonia Lactate Dehydrogenase 459 H Troponin T C-Reactive Protein 10.60 H Total Protein 5.0 L Albumin 2.2 L Triglycerides Cholesterol HDL Cholesterol Lipase Arterial Blood Glucose Arterial Blood Ionized Calcium Urine WBC (Auto) Salicylates Acetaminophen Coronavirus (PCR) 03/09/21 03/09/21 03/09/21 08:00 11:52 18:05 WBC RBC 2.60 L Hgb 8.5 L Hct 25.5 L MCV 98 H MCH 33 H RDW 18.1 H Seg Neutrophils % Monocytes % (Manual) Seg Neutrophils # Monocytes # (Manual) PT INR D-Dimer Heparin Anti-Xa Level ABG pH POC ABG pCO2 POC ABG pO2 ABG Hemoglobin ABG Oxyhemoglobin ABG Sodium ABG Potassium ABG Chloride ABG Glucose Carboxyhemoglobin Sodium Potassium Chloride Carbon Dioxide BUN Creatinine Glucose POC Glucose 306 H 293 H Lactic Acid Calcium Phosphorus Magnesium Ferritin Total Bilirubin Direct Bilirubin AST ALT Alkaline Phosphatase Ammonia Lactate Dehydrogenase Troponin T C-Reactive Protein Total Protein Albumin Triglycerides Cholesterol HDL Cholesterol Lipase Arterial Blood Glucose Arterial Blood Ionized Calcium Urine WBC (Auto) Salicylates Acetaminophen Coronavirus (PCR) 03/09/21 03/10/21 03/10/21 23:21 04:38 05:25 WBC RBC Hgb 8.6 L Hct 26.0 L MCV MCH RDW Seg Neutrophils % Monocytes % (Manual) Seg Neutrophils # Monocytes # (Manual) PT INR D-Dimer Heparin Anti-Xa Level ABG pH POC ABG pCO2 POC ABG pO2 ABG Hemoglobin ABG Oxyhemoglobin ABG Sodium ABG Potassium ABG Chloride ABG Glucose Carboxyhemoglobin Sodium Potassium Chloride Carbon Dioxide BUN Creatinine Glucose POC Glucose 306 H 310 H Lactic Acid Calcium Phosphorus Magnesium Ferritin Total Bilirubin Direct Bilirubin AST ALT Alkaline Phosphatase Ammonia Lactate Dehydrogenase Troponin T C-Reactive Protein Total Protein Albumin Triglycerides Cholesterol HDL Cholesterol Lipase Arterial Blood Glucose Arterial Blood Ionized Calcium Urine WBC (Auto) Salicylates Acetaminophen Coronavirus (PCR) 03/10/21 03/10/21 03/10/21 05:25 12:33 12:52 WBC RBC Hgb Hct MCV MCH RDW Seg Neutrophils % Monocytes % (Manual) Seg Neutrophils # Monocytes # (Manual) PT INR D-Dimer Heparin Anti-Xa Level ABG pH 7.487 H POC ABG pCO2 POC ABG pO2 62.1 L ABG Hemoglobin 9.4 L ABG Oxyhemoglobin 89.7 L ABG Sodium ABG Potassium ABG Chloride ABG Glucose 350 H Carboxyhemoglobin 0.2 L Sodium Potassium Chloride Carbon Dioxide 32 H BUN 45 H Creatinine Glucose 341 H POC Glucose 340 H Lactic Acid Calcium Phosphorus Magnesium Ferritin Total Bilirubin Direct Bilirubin AST ALT Alkaline Phosphatase Ammonia Lactate Dehydrogenase Troponin T C-Reactive Protein Total Protein Albumin Triglycerides Cholesterol HDL Cholesterol Lipase Arterial Blood Glucose 350 H Arterial Blood Ionized Calcium Urine WBC (Auto) Salicylates Acetaminophen Coronavirus (PCR) 03/10/21 03/10/21 03/11/21 17:05 22:57 04:58 WBC RBC Hgb Hct MCV MCH RDW Seg Neutrophils % Monocytes % (Manual) Seg Neutrophils # Monocytes # (Manual) PT INR D-Dimer Heparin Anti-Xa Level ABG pH POC ABG pCO2 POC ABG pO2 ABG Hemoglobin ABG Oxyhemoglobin ABG Sodium ABG Potassium ABG Chloride ABG Glucose Carboxyhemoglobin Sodium Potassium Chloride Carbon Dioxide BUN Creatinine Glucose POC Glucose 298 H 241 H 261 H Lactic Acid Calcium Phosphorus Magnesium Ferritin Total Bilirubin Direct Bilirubin AST ALT Alkaline Phosphatase Ammonia Lactate Dehydrogenase Troponin T C-Reactive Protein Total Protein Albumin Triglycerides Cholesterol HDL Cholesterol Lipase Arterial Blood Glucose Arterial Blood Ionized Calcium Urine WBC (Auto) Salicylates Acetaminophen Coronavirus (PCR) 03/11/21 03/11/21 03/11/21 06:54 06:54 06:54 WBC RBC Hgb Hct MCV MCH RDW Seg Neutrophils % Monocytes % (Manual) Seg Neutrophils # Monocytes # (Manual) PT INR D-Dimer 238.43 H Heparin Anti-Xa Level ABG pH POC ABG pCO2 POC ABG pO2 ABG Hemoglobin ABG Oxyhemoglobin ABG Sodium ABG Potassium ABG Chloride ABG Glucose Carboxyhemoglobin Sodium 146 H Potassium Chloride Carbon Dioxide 31 H BUN 41 H Creatinine Glucose 255 H POC Glucose Lactic Acid Calcium Phosphorus Magnesium Ferritin 3346.0 H Total Bilirubin Direct Bilirubin AST ALT Alkaline Phosphatase Ammonia Lactate Dehydrogenase 557 H Troponin T C-Reactive Protein 4.70 H Total Protein Albumin Triglycerides Cholesterol HDL Cholesterol Lipase Arterial Blood Glucose Arterial Blood Ionized Calcium Urine WBC (Auto) Salicylates Acetaminophen Coronavirus (PCR) 03/11/21 03/11/21 03/11/21 06:54 11:25 17:41 WBC RBC 2.76 L Hgb 8.9 L Hct 27.0 L MCV 98 H MCH RDW 18.3 H Seg Neutrophils % Monocytes % (Manual) Seg Neutrophils # Monocytes # (Manual) PT INR D-Dimer Heparin Anti-Xa Level ABG pH POC ABG pCO2 POC ABG pO2 ABG Hemoglobin ABG Oxyhemoglobin ABG Sodium ABG Potassium ABG Chloride ABG Glucose Carboxyhemoglobin Sodium Potassium Chloride Carbon Dioxide BUN Creatinine Glucose POC Glucose 255 H 292 H Lactic Acid Calcium Phosphorus Magnesium Ferritin Total Bilirubin Direct Bilirubin AST ALT Alkaline Phosphatase Ammonia Lactate Dehydrogenase Troponin T C-Reactive Protein Total Protein Albumin Triglycerides Cholesterol HDL Cholesterol Lipase Arterial Blood Glucose Arterial Blood Ionized Calcium Urine WBC (Auto) Salicylates Acetaminophen Coronavirus (PCR) 03/11/21 03/12/21 03/12/21 23:26 04:44 05:16 WBC RBC Hgb Hct MCV MCH RDW Seg Neutrophils % Monocytes % (Manual) Seg Neutrophils # Monocytes # (Manual) PT INR D-Dimer Heparin Anti-Xa Level ABG pH POC ABG pCO2 POC ABG pO2 ABG Hemoglobin ABG Oxyhemoglobin ABG Sodium ABG Potassium ABG Chloride ABG Glucose Carboxyhemoglobin Sodium Potassium Chloride Carbon Dioxide BUN Creatinine Glucose POC Glucose 289 H 255 H Lactic Acid Calcium Phosphorus Magnesium Ferritin Total Bilirubin Direct Bilirubin AST ALT Alkaline Phosphatase Ammonia Lactate Dehydrogenase Troponin T 0.149 H* C-Reactive Protein Total Protein Albumin Triglycerides Cholesterol HDL Cholesterol Lipase Arterial Blood Glucose Arterial Blood Ionized Calcium Urine WBC (Auto) Salicylates Acetaminophen Coronavirus (PCR) 03/12/21 03/12/21 03/12/21 12:02 15:00 17:28 WBC RBC Hgb Hct MCV MCH RDW Seg Neutrophils % Monocytes % (Manual) Seg Neutrophils # Monocytes # (Manual) PT INR D-Dimer Heparin Anti-Xa Level ABG pH POC ABG pCO2 POC ABG pO2 ABG Hemoglobin ABG Oxyhemoglobin ABG Sodium ABG Potassium ABG Chloride ABG Glucose Carboxyhemoglobin Sodium Potassium 3.2 L Chloride Carbon Dioxide BUN 39 H Creatinine 0.7 L Glucose 258 H POC Glucose 237 H 257 H Lactic Acid Calcium 8.3 L Phosphorus Magnesium Ferritin Total Bilirubin 2.20 H Direct Bilirubin AST 181 H ALT 129 H Alkaline Phosphatase 541 H Ammonia Lactate Dehydrogenase Troponin T C-Reactive Protein Total Protein 5.0 L Albumin 2.0 L Triglycerides Cholesterol HDL Cholesterol Lipase Arterial Blood Glucose Arterial Blood Ionized Calcium Urine WBC (Auto) Salicylates Acetaminophen Coronavirus (PCR) 03/12/21 03/12/21 03/13/21 21:51 23:15 05:44 WBC RBC Hgb Hct MCV MCH RDW Seg Neutrophils % Monocytes % (Manual) Seg Neutrophils # Monocytes # (Manual) PT INR D-Dimer Heparin Anti-Xa Level ABG pH POC ABG pCO2 POC ABG pO2 ABG Hemoglobin ABG Oxyhemoglobin ABG Sodium ABG Potassium ABG Chloride ABG Glucose Carboxyhemoglobin Sodium Potassium Chloride Carbon Dioxide BUN Creatinine Glucose POC Glucose 253 H 287 H 247 H Lactic Acid Calcium Phosphorus Magnesium Ferritin Total Bilirubin Direct Bilirubin AST ALT Alkaline Phosphatase Ammonia Lactate Dehydrogenase Troponin T C-Reactive Protein Total Protein Albumin Triglycerides Cholesterol HDL Cholesterol Lipase Arterial Blood Glucose Arterial Blood Ionized Calcium Urine WBC (Auto) Salicylates Acetaminophen Coronavirus (PCR) 03/13/21 03/13/21 03/14/21 17:03 23:31 03:40 WBC RBC Hgb Hct MCV MCH RDW Seg Neutrophils % Monocytes % (Manual) Seg Neutrophils # Monocytes # (Manual) PT INR D-Dimer 475.91 H Heparin Anti-Xa Level ABG pH POC ABG pCO2 POC ABG pO2 ABG Hemoglobin ABG Oxyhemoglobin ABG Sodium ABG Potassium ABG Chloride ABG Glucose Carboxyhemoglobin Sodium Potassium Chloride Carbon Dioxide BUN Creatinine Glucose POC Glucose 228 H 275 H Lactic Acid Calcium Phosphorus Magnesium Ferritin Total Bilirubin Direct Bilirubin AST ALT Alkaline Phosphatase Ammonia Lactate Dehydrogenase Troponin T C-Reactive Protein Total Protein Albumin Triglycerides Cholesterol HDL Cholesterol Lipase Arterial Blood Glucose Arterial Blood Ionized Calcium Urine WBC (Auto) Salicylates Acetaminophen Coronavirus (PCR) 03/14/21 03/14/21 03/14/21 03:40 03:40 03:40 WBC RBC 2.25 L Hgb 7.4 L Hct 22.2 L MCV 99 H MCH 33 H RDW 18.5 H Seg Neutrophils % Monocytes % (Manual) Seg Neutrophils # Monocytes # (Manual) PT INR D-Dimer Heparin Anti-Xa Level ABG pH POC ABG pCO2 POC ABG pO2 ABG Hemoglobin ABG Oxyhemoglobin ABG Sodium ABG Potassium ABG Chloride ABG Glucose Carboxyhemoglobin Sodium Potassium 3.3 L Chloride Carbon Dioxide 37 H D BUN 24 H Creatinine 0.6 L Glucose 180 H POC Glucose Lactic Acid Calcium Phosphorus Magnesium Ferritin 3103.0 H Total Bilirubin 1.60 H Direct Bilirubin AST 283 H ALT 188 H Alkaline Phosphatase 619 H Ammonia Lactate Dehydrogenase 588 H Troponin T C-Reactive Protein 4.00 H Total Protein 4.8 L Albumin 2.2 L Triglycerides Cholesterol HDL Cholesterol Lipase Arterial Blood Glucose Arterial Blood Ionized Calcium Urine WBC (Auto) Salicylates Acetaminophen Coronavirus (PCR) 03/15/21 03/15/21 03/15/21 00:34 05:00 05:00 WBC RBC 2.40 L Hgb 7.8 L Hct 23.6 L MCV 99 H MCH 33 H RDW 18.3 H Seg Neutrophils % Monocytes % (Manual) Seg Neutrophils # Monocytes # (Manual) PT INR D-Dimer Heparin Anti-Xa Level ABG pH POC ABG pCO2 POC ABG pO2 ABG Hemoglobin ABG Oxyhemoglobin ABG Sodium ABG Potassium ABG Chloride ABG Glucose Carboxyhemoglobin Sodium Potassium Chloride Carbon Dioxide BUN Creatinine 0.6 L Glucose 238 H POC Glucose 287 H Lactic Acid Calcium 8.0 L Phosphorus Magnesium Ferritin Total Bilirubin 1.50 H Direct Bilirubin AST 189 H ALT 208 H Alkaline Phosphatase 659 H Ammonia Lactate Dehydrogenase Troponin T C-Reactive Protein Total Protein 5.1 L Albumin 2.1 L Triglycerides Cholesterol HDL Cholesterol Lipase Arterial Blood Glucose Arterial Blood Ionized Calcium Urine WBC (Auto) Salicylates Acetaminophen Coronavirus (PCR) 03/15/21 03/15/21 03/15/21 05:05 11:37 16:34 WBC RBC Hgb Hct MCV MCH RDW Seg Neutrophils % Monocytes % (Manual) Seg Neutrophils # Monocytes # (Manual) PT INR D-Dimer Heparin Anti-Xa Level ABG pH POC ABG pCO2 POC ABG pO2 ABG Hemoglobin ABG Oxyhemoglobin ABG Sodium ABG Potassium ABG Chloride ABG Glucose Carboxyhemoglobin Sodium Potassium Chloride Carbon Dioxide BUN Creatinine Glucose POC Glucose 238 H 236 H 280 H Lactic Acid Calcium Phosphorus Magnesium Ferritin Total Bilirubin Direct Bilirubin AST ALT Alkaline Phosphatase Ammonia Lactate Dehydrogenase Troponin T C-Reactive Protein Total Protein Albumin Triglycerides Cholesterol HDL Cholesterol Lipase Arterial Blood Glucose Arterial Blood Ionized Calcium Urine WBC (Auto) Salicylates Acetaminophen Coronavirus (PCR) 03/15/21 03/16/21 03/16/21 23:05 04:39 05:00 WBC RBC Hgb Hct MCV MCH RDW Seg Neutrophils % Monocytes % (Manual) Seg Neutrophils # Monocytes # (Manual) PT INR D-Dimer Heparin Anti-Xa Level ABG pH POC ABG pCO2 POC ABG pO2 ABG Hemoglobin ABG Oxyhemoglobin ABG Sodium ABG Potassium ABG Chloride ABG Glucose Carboxyhemoglobin Sodium Potassium Chloride Carbon Dioxide 33 H BUN Creatinine 0.5 L Glucose 195 H POC Glucose 336 H 205 H Lactic Acid Calcium Phosphorus Magnesium Ferritin Total Bilirubin Direct Bilirubin AST ALT Alkaline Phosphatase Ammonia Lactate Dehydrogenase Troponin T C-Reactive Protein Total Protein Albumin Triglycerides Cholesterol HDL Cholesterol Lipase Arterial Blood Glucose Arterial Blood Ionized Calcium Urine WBC (Auto) Salicylates Acetaminophen Coronavirus (PCR) 03/16/21 03/17/21 03/17/21 11:37 04:50 13:37 WBC RBC 2.52 L Hgb 8.6 L Hct 25.0 L MCV 99 H MCH 34 H RDW 18.1 H Seg Neutrophils % Monocytes % (Manual) Seg Neutrophils # Monocytes # (Manual) PT INR D-Dimer Heparin Anti-Xa Level ABG pH POC ABG pCO2 POC ABG pO2 ABG Hemoglobin ABG Oxyhemoglobin ABG Sodium ABG Potassium ABG Chloride ABG Glucose Carboxyhemoglobin Sodium Potassium Chloride Carbon Dioxide BUN Creatinine Glucose POC Glucose 222 H 113 H Lactic Acid Calcium Phosphorus Magnesium Ferritin Total Bilirubin Direct Bilirubin AST ALT Alkaline Phosphatase Ammonia Lactate Dehydrogenase Troponin T C-Reactive Protein Total Protein Albumin Triglycerides Cholesterol HDL Cholesterol Lipase Arterial Blood Glucose Arterial Blood Ionized Calcium Urine WBC (Auto) Salicylates Acetaminophen Coronavirus (PCR) 03/17/21 03/17/21 03/17/21 13:37 13:41 18:29 WBC RBC Hgb Hct MCV MCH RDW Seg Neutrophils % Monocytes % (Manual) Seg Neutrophils # Monocytes # (Manual) PT INR D-Dimer Heparin Anti-Xa Level ABG pH POC ABG pCO2 POC ABG pO2 ABG Hemoglobin ABG Oxyhemoglobin ABG Sodium ABG Potassium ABG Chloride ABG Glucose Carboxyhemoglobin Sodium Potassium 3.5 L Chloride Carbon Dioxide BUN Creatinine 0.4 L Glucose 174 H POC Glucose 176 H 180 H Lactic Acid Calcium Phosphorus Magnesium Ferritin Total Bilirubin Direct Bilirubin AST ALT Alkaline Phosphatase Ammonia Lactate Dehydrogenase Troponin T C-Reactive Protein Total Protein Albumin Triglycerides Cholesterol HDL Cholesterol Lipase Arterial Blood Glucose Arterial Blood Ionized Calcium Urine WBC (Auto) Salicylates Acetaminophen Coronavirus (PCR) 03/17/21 03/18/21 03/18/21 23:06 05:50 07:53 WBC RBC 2.46 L Hgb 7.9 L Hct 24.5 L MCV 100 H MCH RDW 18.0 H Seg Neutrophils % Monocytes % (Manual) Seg Neutrophils # Monocytes # (Manual) PT INR D-Dimer Heparin Anti-Xa Level ABG pH POC ABG pCO2 POC ABG pO2 ABG Hemoglobin ABG Oxyhemoglobin ABG Sodium ABG Potassium ABG Chloride ABG Glucose Carboxyhemoglobin Sodium Potassium Chloride Carbon Dioxide BUN Creatinine Glucose POC Glucose 127 H 108 H Lactic Acid Calcium Phosphorus Magnesium Ferritin Total Bilirubin Direct Bilirubin AST ALT Alkaline Phosphatase Ammonia Lactate Dehydrogenase Troponin T C-Reactive Protein Total Protein Albumin Triglycerides Cholesterol HDL Cholesterol Lipase Arterial Blood Glucose Arterial Blood Ionized Calcium Urine WBC (Auto) Salicylates Acetaminophen Coronavirus (PCR) 03/18/21 03/18/21 03/18/21 07:53 07:53 11:43 WBC RBC Hgb Hct MCV MCH RDW Seg Neutrophils % Monocytes % (Manual) Seg Neutrophils # Monocytes # (Manual) PT INR D-Dimer Heparin Anti-Xa Level ABG pH POC ABG pCO2 POC ABG pO2 ABG Hemoglobin ABG Oxyhemoglobin ABG Sodium ABG Potassium ABG Chloride ABG Glucose Carboxyhemoglobin Sodium Potassium Chloride Carbon Dioxide 31 H BUN Creatinine 0.4 L Glucose POC Glucose 158 H Lactic Acid Calcium 8.3 L Phosphorus Magnesium Ferritin Total Bilirubin Direct Bilirubin AST ALT Alkaline Phosphatase Ammonia Lactate Dehydrogenase Troponin T 0.185 H* C-Reactive Protein Total Protein Albumin Triglycerides Cholesterol HDL Cholesterol Lipase Arterial Blood Glucose Arterial Blood Ionized Calcium Urine WBC (Auto) Salicylates Acetaminophen Coronavirus (PCR) 03/18/21 03/18/21 03/19/21 16:36 18:03 04:48 WBC RBC Hgb Hct MCV MCH RDW Seg Neutrophils % Monocytes % (Manual) Seg Neutrophils # Monocytes # (Manual) PT INR D-Dimer Heparin Anti-Xa Level ABG pH POC ABG pCO2 POC ABG pO2 ABG Hemoglobin ABG Oxyhemoglobin ABG Sodium ABG Potassium ABG Chloride ABG Glucose Carboxyhemoglobin Sodium Potassium Chloride Carbon Dioxide BUN Creatinine Glucose POC Glucose 133 H 130 H 107 H Lactic Acid Calcium Phosphorus Magnesium Ferritin Total Bilirubin Direct Bilirubin AST ALT Alkaline Phosphatase Ammonia Lactate Dehydrogenase Troponin T C-Reactive Protein Total Protein Albumin Triglycerides Cholesterol HDL Cholesterol Lipase Arterial Blood Glucose Arterial Blood Ionized Calcium Urine WBC (Auto) Salicylates Acetaminophen Coronavirus (PCR) 03/19/21 03/19/21 03/20/21 12:47 22:05 13:05 WBC RBC Hgb Hct MCV MCH RDW Seg Neutrophils % Monocytes % (Manual) Seg Neutrophils # Monocytes # (Manual) PT INR D-Dimer Heparin Anti-Xa Level ABG pH POC ABG pCO2 POC ABG pO2 ABG Hemoglobin ABG Oxyhemoglobin ABG Sodium ABG Potassium ABG Chloride ABG Glucose Carboxyhemoglobin Sodium Potassium Chloride Carbon Dioxide BUN Creatinine Glucose POC Glucose 121 H 123 H 116 H Lactic Acid Calcium Phosphorus Magnesium Ferritin Total Bilirubin Direct Bilirubin AST ALT Alkaline Phosphatase Ammonia Lactate Dehydrogenase Troponin T C-Reactive Protein Total Protein Albumin Triglycerides Cholesterol HDL Cholesterol Lipase Arterial Blood Glucose Arterial Blood Ionized Calcium Urine WBC (Auto) Salicylates Acetaminophen Coronavirus (PCR) 03/20/21 16:47 WBC RBC Hgb Hct MCV MCH RDW Seg Neutrophils % Monocytes % (Manual) Seg Neutrophils # Monocytes # (Manual) PT INR D-Dimer Heparin Anti-Xa Level ABG pH POC ABG pCO2 POC ABG pO2 ABG Hemoglobin ABG Oxyhemoglobin ABG Sodium ABG Potassium ABG Chloride ABG Glucose Carboxyhemoglobin Sodium Potassium Chloride Carbon Dioxide BUN Creatinine Glucose POC Glucose 112 H Lactic Acid Calcium Phosphorus Magnesium Ferritin Total Bilirubin Direct Bilirubin AST ALT Alkaline Phosphatase Ammonia Lactate Dehydrogenase Troponin T C-Reactive Protein Total Protein Albumin Triglycerides Cholesterol HDL Cholesterol Lipase Arterial Blood Glucose Arterial Blood Ionized Calcium Urine WBC (Auto) Salicylates Acetaminophen Coronavirus (PCR) Allied health notes reviewed: nursing
[2021-03-20] MEDS ORDERED: ALBUTEROL 8.5 GM MDI INHALATION IH PRN (23:05)
[2021-03-20] MEDS ORDERED: MORPHINE 2 MG/1 ML INJ IV PRN (23:44)
[2021-03-20] MEDS: clonazePAM 0.5 MG TAB PO PRN (23:47)
[2021-03-20] MEDS: INSULIN GLARGINE 100 UNITS/ML SUB-Q SCH (23:50)
[2021-03-21] MEDS: INSULIN REGULAR, HUMAN 100 UNITS/1 ML SUB-Q SCH ×4 (00:47→17:05)
[2021-03-21] MEDS: ACETAMINOPHEN 325 MG TAB PO PRN (05:54)
[2021-03-21] MEDS ORDERED: FUROSEMIDE 100 MG/10 ML INJ IV ONE (08:13)
--- NOTE | 2021-03-21 08:18 | Progress Note ---
Assessment and Plan Assessment and plan: This is a a 51 year old male admitted for for severe sepsis, respiratory failure, pneumonia and ALPHONSO. PMH: COPD, CHF, DM, DVT/PE, HTN, KAM, obesity, asthma PSx: none reported home meds: albuterol sulfate, advair, HCTZ, atrovent, glucophage, Klor-Con, midodrine, metoprolol, lasix, lantus, coumadin (from audit and home meds reconciliation) Social: unknown A/P Neuro: Metabolic encephalopathy -Resolving -Now extbated Cardio: SR/ST: Acute on Chronic HFpEF (per cards), NSTEMI, h/o HTN, HLD, Prolonged QTc, SVT -Cardiology consulted, appreciate recommendations -midodrine d/c r/t HTN -BP monitoring per protocol -Labetalol PO -Per cardiology: 1. gentle IV diuresis when able 2. Echo 12/13/2020 - EF 55-60%, otherwise technically difficult study. Echo 05/2016 - LV mildly dilated, EF 55-60%, grade II diastolic dysfxn, RV mildly enlarged, normal RV sys fxn, LA mildly dilated, RA mildly dilated, mild-mod AR, mild KS, mild aortic root dilatation. Resp: Acute on chronic hypoxic respiratory failure, Bilateral PNA, hx COPD, KAM, asthma, ?PE -CCM consulted, appreciate recommendations -MV, wean as tolerated -Intubated 03/01, tube exchange 03/09 OETT 8/0 @ 25 lip -nOW EXTUBATED 03/10 -Continuos SPO2 monitoring -abx with levaquin (03/02-03/07)-DC 03/05 r/t prolonged QTc -03/01 CT chest shows several pulmonary nodules within Right lung measuring 6-8 mm, increased interstitial prominence -? f/u outpt with PCP/pulmanology -03/10 CXR reviewed GI: Transaminitis, TF -GI consulted, appreciate recommendations -Trend LFTs -RUQ US shows no evidence of cholelithiasis, cholecytitis or choledocholithisis -CT abd/pelvis showed fatty infiltration of liver -Ntr consult for TF -PPI -BR [place] -last BM 03/06 -24 hr net (-) 225 : ALPHONSO (stable/resolved) -Nephrology consulted, appreciate recommendations -Pt was on HD at recent hospitalization at OSH -Renally dose mediations -Avoid nephrotoxic medications -Strict I&Os -Renal US shows no significant abnormality -Daily weights -Replete electrolytes -Trend BMP -s/p lasix x 2, prn hydral -Trial lasix again today Heme: DVT-R posterior tibial vein, h/o LLE DVT (December 2019)/ PE (failed Xa inhibitors per cards; on home coumadin) -evidenced on BLE Doppler US -Heparin gtt d/c to lovenox subq (03/09) -SCDs while in bed -Per cards: Eventually plan to transition to Coumadin ID: Severe Sepsis, B PNA, COVID 19 infection -s/p abx therapy (azithromycin 03/01-03/02, aztreonam 03/02, cefepime 03/01-03/02, levaquin 03/02-03/05, flagyl 03/01-03/02, vancomycin 03/01-03/02) -VAP bundle -MRSA (+) nares -COVID 19 PCR (+) -Decadron for 10 days (03/06-03/15) -Remdesivir (03/06-03/10) -Contact/Droplet precautions -03/01 BCx2 with NGTD, UC with NGTD, sputum culture normal sole -03/06 BC NGTD -Prone if needed -Vit C/D/Zinc Endo: DM -SSI, lantus (titrate as needed) -Accuchecks q6 -Avoid hypoglycemia FEN: Hypokalemia, Hypomagenesmia- Replace lines: condom cath, PIV, RADHA Disposition: ICU Full code The high probability of a clinically significant, sudden or life threatening deterioration of the [multi] system(s) required my full and direct attention, intervention and personal management. The aggregate critical care time was [40] minutes. This time is in addition to time spent performing reported procedures but includes the following: [x] Data Review and interpretation [x] Patient assessment and monitoring of vital signs [x] Documentation [x] Medication orders and management History Interval history: This is a 51-year-old -Tajik male with COPD with chronic respiratory failure, CHFpEF, diabetes mellitus, DVT/PE on coumadin and hypertension who p resented to [facility] via EMS for AMS and hypoxia. On arrival of EMS oxygen saturation was about 88% on room air, blood pressure was said to be about 88/50 mmHg. Work-up in the emergency room reveals leukocytosis of 12.7, hemoglobin of 9.1 and hematocrit of 27.7, sodium of 132, lactic acid of 2.90, elevated liver enzymes and elevated troponin at 0.493. A CT of the chest showed findings concerning for atelectasis and or infiltrate, CT of the head was unremarkable. Patient was in severe respiratory distress upon arrival in the emergency room and subsequently intubated. Patient was admitted to the hospitalist service with consults to cardiology, CCM, GI, and neprohology for severe sepsis, respiratory failure, pneumonia and ALPHONSO. Of note patient was admitted to [facility] from 12/12-01/14 and was on HD during that admit. 03/03/21: Patient remains intubated, continue on heparin drip, monitor H&H and BMP. Continue empiric antibiotics, ID following. Follow ammonia level and LFT. According to cardiology patient indeed had preserved EF during his recent admission to [facility]. Plan to repeat 2D echo. Critical care following, wean off from vent as tolerated. 03/04: RN reported blood y secretions in OETT and clots, heparin gtt stopped and B LE US obtained which shows DVT, abx deescalated, heparin gtt restarted. 03/05: RN reported vomiting x1, promithazine x1 given, Qtc at 599 on EKG. AM labs pending. tmax 102.2, reculture with next spike, COVID 19 PCR. abx stopped re prolonged qtc and received CAP coverage. 03/06: Reported high TF residual, COVID PCR pending. Cr better today. tmax 100.7 03/07: radha placed yesterday, started on remdesivir re positive covid. ID consulted yesterday. SHERYL overnight. 03/08: SHERYL reported overnight. Patient is now hypertensive and midodrine has been held. Will now place on low dose antihtn and prn hydral. 03/09: Patient reportedly through tube and OETT was exchanged, patient was given paralytic for exchange. No acute events reported overnight. Patient noted to be hypertensive and we will trial Lasix again today. 03/10: PSV trial today. fentayl was stopped. BP maintaining. SHERYL overnight. 03/11: Patient was extuabted, awaiting Speech therapy, discussed with nursing staff at bedside, considering Hypertensive urgency, will do a bedside swallow eval and give oral meds if passed. Continue aspiration precautions. The patient has hx of Asthma, continue neb treatment. 03/12: Patient remains in ICU care secondary to SVT and unstable hemodynamics. Cardiology reevaluated patient was given adenosine and started on amnio drip. Still awaiting speech therapy evaluation although considering her current condition we will keep the patient n.p.o. Case discussed with supervisor sewing department and joint maker machine. Monitor electrolytes and correct as needed. 03/13: Patient this morning remains in normal sinus rhythm following the adenosine and amnio drip which is still going the latter I mean. I will start the patient on Lasix for 3 days and monitor her renal function. Patient is already on high dose of dexamethasone considering his history of bronchospasm disease. We will repeat a pulmonary evaluation we will correct electrolytes especially with the Lasix. CCT 35 pLAN DISCUSSED WITH THE PATIENT AND NURSE 03/14: Patient unfortunately is declining continues on high flow -70% intermittent altered mental status refusing all treatment plan. Psych saw the patient recommended Geodon as needed. Will transition some medications to IV. Continue encouraging patient to use BiPAP. Continue nebulizer treatment and steroid therapy. Pulmonary and cardiology input also appreciated. 03/15: Patient seen and examined, continue to wean oxygen flow as tolerated, Electrolytes replacement protocol inplace, LFT still elevated but trending down some. Again counselling provided to the patient about compliance. Adjust insulin. 03/16: Patient down to 50% FiO2 was saturating 92%. [facility]. Clinically he is showing some improvement. Continue restraints for supportive care continue to monitor for intermittent delirium. 03/17: Patient still with intermittent delirium sometimes refusing medication. Restraints has been renewed for safety as he did take off his oxygen yesterday and desatted to the 70s. His saturation is back to 90-92% with FiO2 of 50% of the high flow. Continue supportive care pulmonary input and ID input noted. 03/18: Continue full supportive care, ideally prone if able, called to update family, continue supportive care, patient treated with -IV/PO Dexamethasone 10 mg daily x 10 days, higher dose due to morbid obesity. Ended 03/15/2021 -Completed Remdesivir still high risk due to hypoxia treatment being complicated by the delirium 03/19; patient is on 30 L of high flow oxygen with FiO2 of 96%. Patient completed remdesivir and Decadron. Patient is still high risk because of hypoxia. Patient has right posterior tibial vein occlusive thrombus and on therapeutic Lovenox. 03/20; on 25 L of high flow oxygen with FiO2 of 45%. Completed Decadron and remdesivir. Patient has DVT and on therapeutic Lovenox. Discussed with case management for possible LTAC placement. 03/21; patient is on 25 L of high flow oxygen. Completed remdesivir and Decadron. Patient did have any urine output and we are going to check bladder scan and give him Lasix 80 mg IV 1 times. Patient is on p.o. Lasix 80 mg daily. Echo was done and was unremarkable. Case management is working to find LTAC place for him. Patient accepted by [facility] pending authorization. History Interval history: Patient was seen and evaluated this morning Patient was on 25 L of high flow oxygen with FiO2 of 45 % Patient said he is breathing okay Hospitalist Physical - Physical exam Narrative exam: Patient is on 25 L high flow oxygen with FiO2 of 96% The patient is morbidly obese. Vital signs as documented. Head exam is unremarkable. No scleral icterus . Neck is without jugular venous distension, thyromegaly, or carotid bruits. Lungs decreased air entry. Cardiac exam reveals regular rate and Rhythm. Abdominal exam reveals normal bowel sounds, nontender, no organomegaly. Extremities bilateral lower extremity edema. COMMISSARY SUPERINTENDENT: Alert and oriented x3. Moves extremities. - Constitutional Vitals: Temp Pulse Resp BP Pulse Ox 99.0 F 101 H 20 134/68 95 03/21/21 05:35 03/21/21 05:54 03/21/21 05:35 03/21/21 05:54 03/21/21 02:00 General appearance: Present: no acute distress, well-nourished, obese, other (sedated) HEART Score - HEART Score Troponin: Troponin T 0.185 ng/mL (0.00-0.029) H* 03/18/21 07:53 Results - Labs CBC & Chem 7: 03/18/21 07:53 03/18/21 07:53 Labs: Laboratory Last Values WBC 8.6 K/mm3 (4.5-11.0) 03/18/21 07:53 RBC 2.46 M/mm3 (3.65-5.03) L 03/18/21 07:53 Hgb 7.9 gm/dl (11.8-15.2) L 03/18/21 07:53 Hct 24.5 % (35.5-45.6) L 03/18/21 07:53 MCV 100 fl (84-94) H 03/18/21 07:53 MCH 32 pg (28-32) 03/18/21 07:53 MCHC 32 % (32-34) 03/18/21 07:53 RDW 18.0 % (13.2-15.2) H 03/18/21 07:53 Plt Count 294 K/mm3 (140-440) 03/18/21 07:53 Lymph % (Auto) 22.4 % (13.4-35.0) 03/06/21 05:20 Haakon % (Auto) 4.5 % (0.0-7.3) 03/06/21 05:20 Eos % (Auto) 0.2 % (0.0-4.3) 03/06/21 05:20 Baso % (Auto) 0.3 % (0.0-1.8) 03/06/21 05:20 Lymph # (Auto) 3.4 K/mm3 (1.2-5.4) 03/06/21 05:20 Haakon # (Auto) 0.7 K/mm3 (0.0-0.8) 03/06/21 05:20 Eos # (Auto) 0.0 K/mm3 (0.0-0.4) 03/06/21 05:20 Baso # (Auto) 0.1 K/mm3 (0.0-0.1) 03/06/21 05:20 Add Manual Diff Complete 03/01/21 19:21 Total Counted 100 03/01/21 19:21 Seg Neutrophils % 72.6 % (40.0-70.0) H 03/06/21 05:20 Seg Neuts % (Manual) 49.0 % (40.0-70.0) 03/01/21 19:21 Lymphocytes % (Manual) 32.0 % (13.4-35.0) 03/01/21 19:21 Monocytes % (Manual) 17.0 % (0.0-7.3) H 03/01/21 19:21 Eosinophils % (Manual) 1.0 % (0.0-4.3) 03/01/21 19:21 Basophils % (Manual) 1.0 % (0.0-1.8) 03/01/21 19:21 Nucleated RBC % Not Reportable 03/01/21 19:21 Seg Neutrophils # 11.1 K/mm3 (1.8-7.7) H 03/06/21 05:20 Seg Neutrophils # Man 6.2 K/mm3 (1.8-7.7) 03/01/21 19:21 Band Neutrophils # 0.0 K/mm3 03/01/21 19:21 Lymphocytes # (Manual) 4.1 K/mm3 (1.2-5.4) 03/01/21 19:21 Abs React Lymphs (Man) 0.0 K/mm3 03/01/21 19:21 Monocytes # (Manual) 2.2 K/mm3 (0.0-0.8) H 03/01/21 19:21 Eosinophils # (Manual) 0.1 K/mm3 (0.0-0.4) 03/01/21 19:21 Basophils # (Manual) 0.1 K/mm3 (0.0-0.1) 03/01/21 19:21 Metamyelocytes # 0.0 K/mm3 03/01/21 19:21 Myelocytes # 0.0 K/mm3 03/01/21 19:21 Promyelocytes # 0.0 K/mm3 03/01/21 19:21 Blast Cells # 0.0 K/mm3 03/01/21 19:21 WBC Morphology Not Reportable 03/01/21 19:21 Hypersegmented Neuts Not Reportable 03/01/21 19:21 Hyposegmented Neuts Not Reportable 03/01/21 19:21 Hypogranular Neuts Not Reportable 03/01/21 19:21 Smudge Cells Not Reportable 03/01/21 19:21 Toxic Granulation Not Reportable 03/01/21 19:21 Toxic Vacuolation Not Reportable 03/01/21 19:21 Dohle Bodies Not Reportable 03/01/21 19:21 Pelger-Huet Anomaly Not Reportable 03/01/21 19:21 Katherine Rods Not Reportable 03/01/21 19:21 Platelet Estimate Not Reportable 03/01/21 19:21 Clumped Platelets Not Reportable 03/01/21 19:21 Plt Clumps, EDTA Not Reportable 03/01/21 19:21 Large Platelets Not Reportable 03/01/21 19:21 Giant Platelets Not Reportable 03/01/21 19:21 Platelet Satelliting Not Reportable 03/01/21 19:21 Plt Morphology Comment Not Reportable 03/01/21 19:21 RBC Morphology Not Reportable 03/01/21 19:21 Dimorphic RBCs Not Reportable 03/01/21 19:21 Polychromasia Not Reportable 03/01/21 19:21 Hypochromasia Not Reportable 03/01/21 19:21 Poikilocytosis Not Reportable 03/01/21 19:21 Anisocytosis Rare 03/01/21 19:21 Microcytosis Not Reportable 03/01/21 19:21 Macrocytosis Not Reportable 03/01/21 19:21 Spherocytes Not Reportable 03/01/21 19:21 Pappenheimer Bodies Not Reportable 03/01/21 19:21 Sickle Cells Not Reportable 03/01/21 19:21 Target Cells Not Reportable 03/01/21 19:21 Tear Drop Cells Not Reportable 03/01/21 19:21 Ovalocytes Not Reportable 03/01/21 19:21 Helmet Cells Not Reportable 03/01/21 19:21 Quinones-Stewart Bodies Not Reportable 03/01/21 19:21 Shawnee Rings Not Reportable 03/01/21 19:21 Bernard Cells Not Reportable 03/01/21 19:21 Bite Cells Not Reportable 03/01/21 19:21 Crenated Cell Not Reportable 03/01/21 19:21 Elliptocytes Not Reportable 03/01/21 19:21 Acanthocytes (Spur) Not Reportable 03/01/21 19:21 Rouleaux Not Reportable 03/01/21 19:21 Hemoglobin C Crystals Not Reportable 03/01/21 19:21 Schistocytes Few 03/01/21 19:21 Malaria parasites Not Reportable 03/01/21 19:21 Henry Bodies Not Reportable 03/01/21 19:21 Hem Pathologist Commnt No 03/01/21 19:21 PT 15.6 Sec. (12.2-14.9) H 03/04/21 10:17 INR 1.18 (0.87-1.13) H 03/04/21 10:17 APTT 36.6 Sec. (24.2-36.6) 03/02/21 16:28 D-Dimer 475.91 ng/mlDDU (0-234) H 03/14/21 03:40 Heparin Anti-Xa Level 0.64 U.I./ml (0.3-0.7) 03/08/21 10:30 ABG pH 7.487 (7.320-7.450) H 03/10/21 12:33 POC ABG pCO2 40.4 mmHg (32.0-48.0) 03/10/21 12:33 POC ABG pO2 62.1 mmHg (83-108) L 03/10/21 12:33 POC ABG HCO3 29.9 03/10/21 12:33 ABG O2 Saturation 90.2 (0-100) 03/10/21 12:33 POC ABG Base Excess 6.0 03/10/21 12:33 ABG Hemoglobin 9.4 (12.0-17.5) L 03/10/21 12:33 ABG Oxyhemoglobin 89.7 (94-98) L 03/10/21 12:33 ABG Methemoglobin 0.3 (0.0-1.5) 03/10/21 12:33 ABG Sodium 138.7 mmol/L (136.0-145.0) 03/10/21 12:33 ABG Potassium 3.7 mmol/L (3.40-4.50) 03/10/21 12:33 ABG Chloride 104.0 mmol/L (98-107) 03/10/21 12:33 ABG Glucose 350 mg/dL (65-95) H 03/10/21 12:33 Carboxyhemoglobin 0.2 (0.5-1.5) L 03/10/21 12:33 FiO2 % 35.0 03/10/21 12:33 Sodium 144 mmol/L (137-145) 03/18/21 07:53 Potassium 3.6 mmol/L (3.6-5.0) 03/18/21 07:53 Chloride 103.1 mmol/L (98-107) 03/18/21 07:53 Carbon Dioxide 31 mmol/L (22-30) H 03/18/21 07:53 Anion Gap 14 mmol/L 03/18/21 07:53 BUN 10 mg/dL (9-20) 03/18/21 07:53 Creatinine 0.4 mg/dL (0.8-1.3) L 03/18/21 07:53 Estimated GFR > 60 ml/min 03/18/21 07:53 BUN/Creatinine Ratio 25 % 03/18/21 07:53 Glucose 98 mg/dL (75-100) 03/18/21 07:53 POC Glucose 104 mg/dL (70-105) 03/21/21 08:07 Lactic Acid 1.70 mmol/L (0.7-2.0) 03/04/21 10:17 Calcium 8.3 mg/dL (8.4-10.2) L 03/18/21 07:53 Phosphorus 2.60 mg/dL (2.5-4.5) 03/16/21 05:00 Magnesium 1.80 mg/dL (1.7-2.3) 03/16/21 05:00 Ferritin 3103.0 ng/mL (30.0-300.0) H 03/14/21 03:40 Total Bilirubin 1.50 mg/dL (0.1-1.2) H 03/15/21 05:00 Direct Bilirubin 0.6 mg/dL (0-0.2) H 03/04/21 05:26 Indirect Bilirubin 0.2 mg/dL 03/04/21 05:26 AST 189 units/L (5-40) H 03/15/21 05:00 ALT 208 units/L (7-56) H 03/15/21 05:00 Alkaline Phosphatase 659 units/L (35-129) H 03/15/21 05:00 Ammonia 71.0 umol/L (25-60) H 03/01/21 19:21 Lactate Dehydrogenase 588 units/L (91-180) H 03/14/21 03:40 Troponin T 0.185 ng/mL (0.00-0.029) H* 03/18/21 07:53 C-Reactive Protein 4.00 mg/dL (0.00-1.30) H 03/14/21 03:40 Total Protein 5.1 g/dL (6.3-8.2) L 03/15/21 05:00 Albumin 2.1 g/dL (3.9-5) L 03/15/21 05:00 Albumin/Globulin Ratio 0.7 % 03/15/21 05:00 Triglycerides 400 mg/dL (2-149) H 03/01/21 19:21 Cholesterol 232 mg/dL (50-199) H 03/01/21 19:21 LDL Cholesterol Direct 130 mg/dL (50-130) 03/01/21 19: HDL Cholesterol 22 mg/dL (40-59) L 03/01/21 19:21 Cholesterol/HDL Ratio 10.54 % 03/01/21 19: Lipase 78 units/L (13-60) H 03/04/21 10:17 Procalcitonin 1.18 ng/mL (<0.15) 03/08/21 06:10 TSH 1.840 mlU/mL (0.270-4.200) 03/03/21 04:06 Arterial Blood Glucose 350 mg/dL (65-95) H 03/10/21 12:33 Arterial Blood Ionized Calcium 4.6 mg/dL (4.6-5.3) 03/10/21 12:33 Urine Color [place] (Yellow) 03/06/21 14:34 Urine Turbidity Cloudy (Clear) 03/06/21 14:34 Urine pH 5.0 (5.0-7.0) 03/06/21 14:34 Ur Specific [place] 1.014 (1.003-1.030) 03/06/21 14:34 Urine Protein 30 mg/dl mg/dL (Negative) 03/06/21 14:34 Urine Glucose (UA) Neg mg/dL (Negative) 03/06/21 14:34 Urine Ketones Neg mg/dL (Negative) 03/06/21 14:34 Urine Blood Sm (Negative) 03/06/21 14:34 Urine Nitrite Neg (Negative) 03/06/21 14:34 Urine Bilirubin Neg (Negative) 03/06/21 14:34 Urine Urobilinogen 4.0 mg/dL (<2.0) 03/06/21 14:34 Ur Leukocyte Esterase Neg (Negative) 03/06/21 14:34 Urine WBC (Auto) 103.0 /HPF (0.0-6.0) H 03/06/21 14:34 Urine RBC (Auto) 105.0 /HPF (0.0-6.0) 03/06/21 14:34 U Epithel Cells (Auto) 5.0 /HPF (0-13.0) 03/06/21 14:34 Urine Bacteria (Auto) 2+ /HPF (Negative) 03/06/21 14:34 Hyaline Casts 5 /LPF 03/06/21 14:34 Urine Mucus 1+ /HPF 03/06/21 14:34 Urine Yeast (Budding) Few /HPF 03/01/21 21:40 Urine Sperm 3+ /HPF (SURFACING MACHINE OPERATOR) 03/06/21 14:34 Nasal Screen MRSA (PCR) Positive (Negative) 03/02/21 05:00 Salicylates < 0.3 mg/dL (2.8-20.0) L 03/01/21 19:21 Urine Opiates Screen Positive 03/01/21 21:40 Urine Methadone Screen Negative 03/01/21 21:40 Acetaminophen 5.0 ug/mL (10.0-30.0) L 03/01/21 19:21 Ur Barbiturates Screen Negative 03/01/21 21:40 Ur Phencyclidine Scrn Negative 03/01/21 21:40 Ur Amphetamines Screen Negative 03/01/21 21:40 U Benzodiazepines Scrn Negative 03/01/21 21:40 Urine Cocaine Screen Negative 03/01/21 21:40 U Marijuana (THC) Screen Negative 03/01/21 21:40 Drugs of Abuse Note Disclamer 03/01/21 21:40 KARLA Screen Negative (Negative) 03/03/21 04:06 Coronavirus (PCR) Positive (Negative) A 03/05/21 Unknown Blood Type O POSITIVE 03/01/21 19:21 Antibody Screen Negative 03/01/21 19:21 Vilchis/IV: Voiding Method Incontinent Active Medications - Current Medications Current Medications: Generic Name Dose Route Start Last Admin Trade Name Freq PRN Reason Stop Dose Admin Acetaminophen 650 mg 03/20/21 23:43 03/21/21 05:54 Acetaminophen 325 Mg Tab PO 650 mg Q4H PRN Administration Pain, Mild (1-3) Albuterol 2 puff 03/20/21 23:05 Albuterol 8.5 Gm Mdi Inhalation IH Q4HRT PRN Shortness Of Breath Lipase/Protease/Amylase 1 each 03/03/21 10:53 Lipase 10,500/Protease 25,000/Amylase 43,750 (Units) Dr Gutierrez FEEDTUBE PRN PRN For Clogged Feeding Tube Ascorbic Acid 500 mg 03/06/21 22:00 03/20/21 22:17 Ascorbic Acid 500 Mg Tab PO 500 mg BID KYLE Administration Aspirin 81 mg 03/04/21 10:00 03/20/21 12:04 Aspirin 81 Mg Tab Chew PO 81 mg QDAY KYLE Administration Cholecalciferol 5,000 unit 03/17/21 11:00 03/20/21 12:03 Cholecalciferol (Vit D3) 5,000 Unit Tab PO 5,000 unit QDAY KYLE Administration Clonazepam 0.5 mg 03/16/21 12:43 03/20/21 23:47 Clonazepam 0.5 Mg Tab PO 0.5 mg BID PRN Administration Anxiety Dextrose 50 ml 03/02/21 11:38 Dextrose 50% In Water (25gm) 50 Ml Syringe IV Q30MIN PRN Hypoglycemia Protocol Diltiazem HCl 90 mg 03/20/21 12:00 03/21/21 05:54 Diltiazem 90 Mg Tab PO 90 mg Q6HR KYLE Administration Enoxaparin Sodium 130 mg 03/09/21 11:00 03/20/21 22:20 Enoxaparin 150 Mg/1 Ml Inj SUB-Q 130 mg Q12HR KYLE Administration Protocol Famotidine 20 mg 03/04/21 10:00 03/20/21 22:18 Famotidine 20 Mg Tab PO 20 mg BID KYLE Administration Furosemide 80 mg 03/17/21 11:00 03/20/21 12:04 Furosemide 40 Mg Tab PO 80 mg QDAY KYLE Administration Furosemide 80 mg 03/21/21 08:13 Furosemide 100 Mg/10 Ml Inj IV 03/21/21 08:14 ONCE ONE Guaifenesin 600 mg 03/11/21 22:00 03/20/21 22:21 Guaifenesin Er 600 Mg Tab PO 600 mg BID KYLE Administration Hydralazine HCl 10 mg 03/09/21 08:21 03/11/21 22:03 Hydralazine 20 Mg/1 Ml Inj IV 10 mg Q4H PRN Administration Hypertension Hydrophilic Ointment 1 applic 03/02/21 15:42 Lip Therapy Vaseline TP Q2H PRN Dry Lips Sodium Chloride 1,000 mls @ 1 mls/hr 03/06/21 18:11 Nacl 0.9% 500 Ml IV DIRECT PRN ARTERIAL LINE FLUSH Insulin Glargine 30 units 03/16/21 22:00 03/20/21 23:50 Insulin Glargine 100 Units/Ml SUB-Q 30 units QHS KYLE Administration Insulin Human Regular 0 units 03/10/21 18:00 03/21/21 07:36 Insulin Regular, Human 100 Units/1 Ml SUB-Q Not Given Q6HR [facility] Protocol Magnesium Hydroxide 30 ml 03/02/21 00:18 Magnesium Hydroxide (Mom) Oral Liqd Udc PO Q4H PRN Constipation Metoprolol Tartrate 5 mg 03/12/21 14:15 03/12/21 14:40 Metoprolol Tartrate 5 Mg/5 Ml Inj IV 5 mg Q6HR PRN Administration Tachyarrhythmias Miscellaneous Medication 145 mcg 03/17/21 10:00 Linaclotide [Linzess] PO QDAY KYLE Morphine Sulfate 2 mg 03/20/21 23:44 Morphine 2 Mg/1 Ml Inj IV Q4H PRN Pain, Moderate (4-6) Multi-Ingred Cream/Lotion/Oil/Oint 1 applic 03/02/21 15:42 Mineral Oil/Petrolatum, White Ophth Oint 3.5 Gm OU Q4HR PRN Dry Eye(s) Multivitamins/Minerals 1 each 03/03/21 22:00 03/20/21 22:18 Calcium Carb/Vit D3/Minerals 600 Mg/800 Units Tab PO 1 each BID KYLE Administration Pregabalin 50 mg 03/17/21 14:00 03/20/21 22:18 Pregabalin 50 Mg Cap PO 50 mg TID KYLE Administration Senna/Docusate Sodium 1 tab 03/02/21 22:00 03/20/21 22:18 Sennosides/Docusate Sodium 8.6/50 Mg Tab FEEDTUBE 1 tab BID KYLE Administration Simple Syrup 15 ml 03/03/21 10:53 Simple Syrup 15 Ml FEEDTUBE PRN PRN Hypoglycemia Simple Syrup 30 ml 03/03/21 10:53 Simple Syrup 15 Ml FEEDTUBE PRN PRN Hypoglycemia Sodium Bicarbonate 325 mg 03/03/21 10:53 Sodium Bicarbonate 325 Mg Tab FEEDTUBE PRN PRN For Clogged Feeding Tube Sodium Chloride 10 ml 03/02/21 10:00 03/20/21 22:21 Sodium Chloride 0.9% 10 Ml Flush Syringe IV 10 ml BID KYLE Administration Sodium Chloride 10 ml 03/02/21 00:18 Sodium Chloride 0.9% 10 Ml Flush Syringe IV PRN PRN LINE FLUSH Zinc Sulfate 220 mg 03/06/21 16:00 03/20/21 22:18 Zinc Sulfate 220 Mg Cap PO 220 mg BID KYLE Administration Ziprasidone 20 mg 03/14/21 11:18 Ziprasidone Mesylate 20 Mg Vial IM Q6H PRN Agitation Zolpidem Tartrate 5 mg 03/13/21 17:55 03/18/21 00:50 Zolpidem 5 Mg Tab PO 5 mg QHS PRN Administration Sleep Nutrition/Malnutrition Assess - Dietary Evaluation Nutrition/Malnutrition Findings: Nutrition Notes Start: 03/02/21 10:10 Freq: Status: Active Protocol: Document 03/19/21 11:26 (Rec: 03/19/21 11:31 [email or web address]) Nutrition Notes Initial or Follow up Reassessment Current Diagnosis Acute Kidney Injury,COPD, Diabetes,Sepsis,Hypertension, Heart Failure,Respiratory Failure Other Pertinent Diagnosis pneu, AMS, COVID(+) Current Diet Cardiac, Consistent CHO Labs/Tests reviewed Pertinent Medications reviewed Height 5 ft 10 in Weight 131 kg [place] Body Weight (kg) 75.45 BMI 41.4 Weight Status Morbidly Obese Subjective/Other Information Unable to speak with pt x2. Per tech, pt ate 25% of breakfasta and no ONS. Percent of energy/protein needs met: 27%/11% Burn Absent Trauma Absent Current % PO Poor (25-49%) Minimum of two criteria No Fluid Accumulation Mild (non-severe) #1 Nutrition Diagnosis Inadequate oral intake As Evidenced by Signs and Symptoms pt eating 25% of meals Diagnosis Progress(for reassessment Improved documentation) Is patient on ventilator? No Is Patient Ambulatory and/or Out of Bed No REE-([facility] Jerome-confined to bed) 2614.728 Kcal/Kg value to use for calculation 16 Approximate Energy Requirements Using 2096 kcal/Kg Calculation Used for Recommendations Kcal/kg Additional Notes Pro needs up to 2.5g/klg IBW: up to 189g/day Fluid needs 1ml/kcal Nutrition Intervention Change Diet Order: continue Add Supplement/Snack (indicate name/kcal Glucerna daily /protein ) Provides kCal: 220 Provides Protein (gm) 10 Goal #1 PO tolerance Goal #2 PO intake to meet at least 75% energy and pro needs Anticipated Discharge Needs: Cardiac, consistent CHO Follow-Up By: 03/21/21 Additional Comments F/u: intakes and ONS tolerance
[2021-03-21] MEDS ORDERED: FUROSEMIDE 40 MG/4 ML INJ IV NR (08:30)
[2021-03-21 09:24] LABS: Bilirubin,Urine NEG (Negative); Blood,Urine NEG (Negative); Color,Urine Amber (Yellow); Hyaline Casts,Urine 22 /LPF; Mucus,Urine 1+ /HPF
--- NOTE | 2021-03-21 09:30 | XRay Report ---
CHEST - 1 VIEW 0845 hours INDICATION: Hypoxia COMPARISON: Yesterday FINDINGS: Support devices: Stable and adequate positioning of the left arm PICC Heart: Stable cardiomediastinal silhouette. Lungs/pleura: There is perhaps minimal improvement in the left lower lung infiltrate and small left pleural effusion. The right lung remains clear. No pneumothorax. Additional findings: None. IMPRESSION: Minimal improvement in the left lower lung infiltrate and small left pleural effusion. Signer Name: Zaid Suárez Jr, MD Signed: 03/21/2021 9:26 AM Workstation Name: [id number]
--- NOTE | 2021-03-21 09:43 | Progress Note ---
Assessment and Plan SVT * Patient had SVT into 180s on 03/12/2021. Resolved after being given Adenosine 6mg IV. Patient was then started on Amio gtt * Received call from nurse on 03/19/2021 around 11:45am that patient heart rate was in 170s-180s. Upon review of telemetry the patient was in SVT 180s. Code was called and patient given 6mg of adenosine. Patient converted back to sinus tach 100s. * Patient has sinus rhythm with short intermittent runs of SVT.Optimize rate control: Continue Cardizem 90mg PO Q6hrs. Hypertension * Continue Cardizem 90mg PO Q6hrs. HFpEF * Echo 12/13/2020 - EF 55-60%, otherwise technically difficult study. * Echo 05/2016 - LV mildly dilated, EF 55-60%, grade II diastolic dysfxn, RV mildly enlarged, normal RV sys fxn, LA mildly dilated, RA mildly dilated, mild-mod AR, mild ND, mild aortic root dilatation. * Echo 03/19/2021-EF 55 to 60%, mild diastolic dysfunction present, right ventricular systolic function is normal, left and right atrium are normal in size, mild aortic regurgitation. * Patient has complaint of swelling with noticeable edema in extremities. Agree with Lasix 80mg IV once. COVID-19 PNA Acute hypoxic resporitary failure * Patient positive for COVID-19 * Pulmonology and infectious disease are following History of Altered Mental Status * Patient intermittently altered * Management per primary team DVT of RLE * Patient on Enoxaparin 130mg SQ BID . Plan to transition to Coumadin once patient is hemodynamically stable * He was diagnosed with a LLE DVT in March 2020 and appears to have been on Coumadin as an outpatient. Continue Cardizem 90mg PO Q6hrs for rate and arrhythmia control. Agree with Lasix 80mg IV once. Continue to monitor. Patient waiting for LTAC placement Patient seen in conjunction with Dr. Kim who agrees with this plan of care. Will continue to follow. - Patient Problems (1) ALPHONSO (acute kidney injury) Current Visit: Yes Status: Acute (2) Acute and chronic respiratory failure ([id number]) Current Visit: Yes Status: Acute (3) Acute deep vein thrombosis (DVT) of right lower extremity Current Visit: Yes Status: Acute (4) Encephalopathy Current Visit: Yes Status: Acute (5) NSTEMI (non-ST elevated myocardial infarction) Current Visit: Yes Status: Acute (6) Transaminitis Current Visit: Yes Status: Acute (7) COPD (chronic obstructive pulmonary disease) Current Visit: Yes Status: Chronic (8) Chronic heart failure with preserved ejection fraction (HFpEF) Current Visit: Yes Status: Chronic (9) DM2 (diabetes mellitus, type 2) Current Visit: Yes Status: Chronic (10) H/O: HTN (hypertension) Current Visit: Yes Status: Chronic (11) History of pulmonary embolus (PE) Current Visit: Yes Status: Chronic (12) COVID-19 Current Visit: Yes Status: Acute Subjective Date of service: 03/21/21 Principal diagnosis: Ac hypoxemic resp failure; NSTEMI; ALPHONSO; Sepsis; PNA; CHF; DM II; AMS Interval history: Patient sitting in bed with complaints of swelling Sinus rhythm 90s-100s with sinus tach and runs SVT on monitor Objective Last Vital Signs Temp 99.0 F 03/21/21 05:35 Pulse 101 H 03/21/21 05:54 Resp 20 03/21/21 05:35 BP 134/68 03/21/21 05:54 Pulse Ox 95 03/21/21 02:00 - Physical Examination General: No Apparent Distress HEENT: Positive: PERRL, Normocephaly Neck: Positive: trachea midline Cardiac: Positive: Regular Rhythm, Tachycardia Lungs: Positive: Decreased Breath Sounds Neuro: Positive: Grossly Intact Abdomen: Positive: Soft Skin: Negative: Rash Incision: Cardiac Cath Site Musculoskeletal: No Fluid Collection Extremities: Present: upper extr. pulses, lower extr. pulses, edema, +1 Edema, warm, Other (anasarca) - Imaging and Cardiology EKG: report reviewed, image reviewed Echo: report reviewed (12/2020 - EF 55-60%) Cardiac cath: pending - Telemetry EKG Rhythm: Sinus Rhythm - EKG Sinus rhythms and dysrhythmias: sinus rhythm Ventricular dysrhythmias: supraventricular captures AV and intraventricular conduction: right bundle branch block Repolarization changes or abnormalities: nonspecific abnormality, ST segment, and/or T wave - Allied health notes Allied health notes reviewed: nursing
[2021-03-21] MEDS: CHOLECALCIFEROL (VIT D3) 5,000 UNIT TAB PO SCH (11:04)
[2021-03-21] MEDS: FUROSEMIDE 40 MG TAB PO SCH (11:05)
[2021-03-21] MEDS: CALCIUM CARB/VIT D3/MINERALS 600 MG/800 UNITS TAB PO SCH ×2 (11:05→22:58)
[2021-03-21] MEDS: ASPIRIN 81 MG TAB CHEW PO SCH (11:05)
[2021-03-21] MEDS: guaiFENesin ER 600 MG TAB PO SCH ×2 (11:05→22:59)
[2021-03-21] MEDS: ASCORBIC ACID 500 MG TAB PO SCH ×2 (11:05→22:58)
[2021-03-21] MEDS: SENNOSIDES/DOCUSATE SODIUM 8.6/50 MG TAB FEEDTUBE SCH ×2 (11:05→22:58)
[2021-03-21] MEDS: ZINC SULFATE 220 MG CAP PO SCH ×2 (11:05→22:59)
[2021-03-21] MEDS: FAMOTIDINE 20 MG TAB PO SCH ×2 (11:05→22:58)
[2021-03-21] MEDS: PREGABALIN 50 MG CAP PO SCH ×3 (11:28→22:59)
[2021-03-21] MEDS: ENOXAPARIN 150 MG/1 ML INJ SUB-Q SCH ×2 (11:28→22:50)
--- NOTE | 2021-03-21 14:04 | Progress Note ---
Assessment and Plan Acute hypoxemic respiratory failure NSTEMI Acute kidney injury Severe sepsis Bilateral pneumonia H/O congestive heart failure Diabetes type 2 Acute encephalopathy Elevated serum transaminases Anemia that is microcytic Leukocytosis Metabolic acidosis Lactic acidosis - consider LTAC evaluation - repeat COVID-19 test was positive - continue to wean supplemental oxygen for target O2 sat's > 92% acutely - continue care as below otherwise; - Psychiatry evaluation ongoing - cardiology evaluation ongoing - continue encouraging scheduled BIPAP qhs for alveolar recruitment / KAM (he refused last night) - continue daytime Vapotherm HFNC - s/p anti-infective's per ID recommendations (Vancomycin, Levaquin) - continue full dose Lovenox re: VTE - aspiration precautions - continue bronchodilators with pulmonary hygiene per RT - wean per pulmonary driven protocols otherwise - continue accuchecks with glycemic control per SSI (While critically ill target blood glucose of 140-180 mg/dL; avoid hypoglycemia) - avoid nephrotoxins, renally dose all medications - continue to avoid benzodiazepine's, reduce the possibility of delirium - prn analgesia per pain score - Maintenance of sleep-wake cycle, avoid delirium - G.I. & VTE prophylaxis - PT/OT/ROM exercises - continue mobility protocols for pressure ulcer prophylaxis - Monitor hemodynamics closely - continue other care per attending / other consultants - discharge planning ongoing concurrently COVID SPECIFIC INTERVENTIONS - continue contact and airborne isolation - Remdesivir as per ID/Pulmonary developed protocols (received) - started systemic steroids for severe COVID-19 infection empirically - follow repeat COVID tests results - started zinc and vitamin C supplementation i9f test positive - get & monitor inflammatory markers per facility protocol - ferritin, Ddimer, CRP (if test +ve) - therapeutic anticoagulation per system Protocol based on d-dimer and clinical considerations (On full dose Lovenox for VTE) .... Re-evaluate in am & prn CONDITION: CRITICAL PROGNOSIS: GUARDED CODE STATUS: FULL CODE The high probability of a clinically significant, sudden or life-threatening deterioration of the [respiratory, cardiovascular & neurologic] system(s) required my full and direct attention, intervention and personal management. The aggregate critical care time was [32] minutes without overlap. Time includes spent on; [x] Data Review and interpretation [x] Patient assessment and monitoring of vital signs [x] Documentation [x] Medication orders and management Subjective Date of service: 03/21/21 Principal diagnosis: Ac hypoxemic resp failure; NSTEMI; ALPHONSO; Sepsis; PNA; CHF; DM II; AMS Interval history: Patient is seen today for: Acute hypoxemic respiratory failure; NSTEMI; ALPHONSO; Severe sepsis; Pneumonia; CHF; DM II; Acute encephalopathy Seen and examined at bedside; 24hour events reviewed; nursing and respiratory care staff consulted; no adverse overnight events reported to me; resting peacefully in bed; still with ? delirium; no emesis or overt aspiration; denies chest pain; wants to go home but remains on 55% HFNC Objective Vital Signs - 12hr 03/21/21 03/21/21 03/21/21 05:35 05:54 08:50 Temperature 99.0 F Pulse Rate 101 H Respiratory 20 Rate Blood Pressure 134/68 134/68 O2 Sat by Pulse 97 Oximetry 03/21/21 09:05 Temperature Pulse Rate Respiratory Rate Blood Pressure O2 Sat by Pulse 95 Oximetry Constitutional: no acute distress, other (middle aged obese male with mildly increased respiratory effort at rest) Eyes: non-icteric ENT: oropharynx moist, other (extubated) Neck: supple, no lymphadenopathy, no JVD, other (large circumference) Effort: mildly labored Ascultation: Bilateral: diminished breath sounds, rhonchi (posterior bases) Percussion: Bilateral: not dull Cardiovascular: regular rate and rhythm Gastrointestinal: normoactive bowel sounds, soft, non-tender, non-distended (p rotuberant) Integumentary: normal Extremities: no cyanosis, pulses normal, no ischemia or petechiae, edema (trace) Neurologic: non-focal exam (grossly), pupils equal and round, CN II-XII normal, motor strength normal and Psychiatric: anxious, other (delirious) CBC and BMP: 03/18/21 07:53 03/21/21 13:30 ABG, PT/INR, D-dimer: ABG ABG pH 7.487 (7.320-7.450) H 03/10/21 12:33 POC ABG pCO2 40.4 mmHg (32.0-48.0) 03/10/21 12:33 POC ABG pO2 62.1 mmHg (83-108) L 03/10/21 12:33 POC ABG HCO3 29.9 03/10/21 12:33 ABG O2 Saturation 90.2 (0-100) 03/10/21 12:33 PT/INR, D-dimer PT 15.6 Sec. (12.2-14.9) H 03/04/21 10:17 INR 1.18 (0.87-1.13) H 03/04/21 10:17 D-Dimer 475.91 ng/mlDDU (0-234) H 03/14/21 03:40 Abnormal lab findings: Abnormal Labs 03/01/21 03/01/21 03/01/21 19:15 19:21 19:21 WBC 12.7 H RBC 2.77 L Hgb 9.1 L Hct 27.7 L MCV 100 H MCH 33 H RDW 18.0 H Seg Neutrophils % Monocytes % (Manual) 17.0 H Seg Neutrophils # Monocytes # (Manual) 2.2 H PT INR D-Dimer Heparin Anti-Xa Level ABG pH POC ABG pCO2 POC ABG pO2 64.9 L ABG Hemoglobin 9.3 L ABG Oxyhemoglobin 93.0 L ABG Sodium 133.8 L ABG Potassium ABG Chloride 97.0 L ABG Glucose 191 H Carboxyhemoglobin Sodium Potassium Chloride Carbon Dioxide BUN Creatinine Glucose POC Glucose Lactic Acid Calcium Phosphorus Magnesium Ferritin Total Bilirubin Direct Bilirubin AST ALT Alkaline Phosphatase Ammonia Lactate Dehydrogenase Troponin T 0.493 H* C-Reactive Protein Total Protein Albumin Triglycerides 400 H Cholesterol 232 H HDL Cholesterol 22 L Lipase Arterial Blood Glucose 191 H Arterial Blood Ionized Calcium 4.4 L Urine WBC (Auto) Salicylates Acetaminophen Coronavirus (PCR) 03/01/21 03/01/21 03/01/21 19:21 19:21 19:21 WBC RBC Hgb Hct MCV MCH RDW Seg Neutrophils % Monocytes % (Manual) Seg Neutrophils # Monocytes # (Manual) PT 16.6 H INR 1.28 H D-Dimer Heparin Anti-Xa Level ABG pH POC ABG pCO2 POC ABG pO2 ABG Hemoglobin ABG Oxyhemoglobin ABG Sodium ABG Potassium ABG Chloride ABG Glucose Carboxyhemoglobin Sodium 132 L Potassium Chloride 92.2 L Carbon Dioxide BUN 43 H Creatinine 2.4 H Glucose 190 H POC Glucose Lactic Acid 2.90 H* Calcium Phosphorus Magnesium Ferritin Total Bilirubin 1.60 H Direct Bilirubin 1.2 H AST 275 H ALT 156 H Alkaline Phosphatase 282 H Ammonia Lactate Dehydrogenase Troponin T C-Reactive Protein Total Protein 5.8 L Albumin 2.6 L Triglycerides Cholesterol HDL Cholesterol Lipase 120 H Arterial Blood Glucose Arterial Blood Ionized Calcium Urine WBC (Auto) Salicylates Acetaminophen Coronavirus (PCR) 03/01/21 03/01/21 03/01/21 19:21 19:21 19:21 WBC RBC Hgb Hct MCV MCH RDW Seg Neutrophils % Monocytes % (Manual) Seg Neutrophils # Monocytes # (Manual) PT INR D-Dimer Heparin Anti-Xa Level ABG pH POC ABG pCO2 POC ABG pO2 ABG Hemoglobin ABG Oxyhemoglobin ABG Sodium ABG Potassium ABG Chloride ABG Glucose Carboxyhemoglobin Sodium Potassium Chloride Carbon Dioxide BUN Creatinine Glucose POC Glucose Lactic Acid Calcium Phosphorus Magnesium Ferritin Total Bilirubin Direct Bilirubin AST ALT Alkaline Phosphatase Ammonia 71.0 H Lactate Dehydrogenase Troponin T C-Reactive Protein Total Protein Albumin Triglycerides Cholesterol HDL Cholesterol Lipase Arterial Blood Glucose Arterial Blood Ionized Calcium Urine WBC (Auto) Salicylates < 0.3 L Acetaminophen 5.0 L Coronavirus (PCR) 03/01/21 03/01/21 03/02/21 20:55 20:55 00:01 WBC RBC Hgb Hct MCV MCH RDW Seg Neutrophils % Monocytes % (Manual) Seg Neutrophils # Monocytes # (Manual) PT INR D-Dimer Heparin Anti-Xa Level ABG pH 7.234 L POC ABG pCO2 POC ABG pO2 240.5 H ABG Hemoglobin 9.3 L ABG Oxyhemoglobin 99.1 H ABG Sodium 135.3 L ABG Potassium ABG Chloride ABG Glucose 286 H Carboxyhemoglobin 0.3 L Sodium Potassium Chloride Carbon Dioxide BUN Creatinine Glucose POC Glucose Lactic Acid 4.30 H* Calcium Phosphorus Magnesium Ferritin Total Bilirubin Direct Bilirubin AST ALT Alkaline Phosphatase Ammonia Lactate Dehydrogenase Troponin T 0.484 H* C-Reactive Protein Total Protein Albumin Triglycerides Cholesterol HDL Cholesterol Lipase Arterial Blood Glucose 286 H Arterial Blood Ionized Calcium Urine WBC (Auto) Salicylates Acetaminophen Coronavirus (PCR) 03/02/21 03/02/21 03/02/21 03:42 05:23 06:35 WBC RBC Hgb Hct MCV MCH RDW Seg Neutrophils % Monocytes % (Manual) Seg Neutrophils # Monocytes # (Manual) PT INR D-Dimer Heparin Anti-Xa Level ABG pH 7.225 L POC ABG pCO2 POC ABG pO2 181.8 H ABG Hemoglobin 9.4 L ABG Oxyhemoglobin 98.6 H ABG Sodium 132.1 L ABG Potassium 5.0 H ABG Chloride ABG Glucose 454 H Carboxyhemoglobin 0.3 L Sodium Potassium Chloride Carbon Dioxide BUN Creatinine Glucose POC Glucose 410 H Lactic Acid 7.50 H* Calcium Phosphorus Magnesium Ferritin Total Bilirubin Direct Bilirubin AST ALT Alkaline Phosphatase Ammonia Lactate Dehydrogenase Troponin T C-Reactive Protein Total Protein Albumin Triglycerides Cholesterol HDL Cholesterol Lipase Arterial Blood Glucose 454 H Arterial Blood Ionized Calcium 4.2 L Urine WBC (Auto) Salicylates Acetaminophen Coronavirus (PCR) 03/02/21 03/02/21 03/02/21 10:48 10:48 10:48 WBC RBC Hgb Hct MCV MCH RDW Seg Neutrophils % Monocytes % (Manual) Seg Neutrophils # Monocytes # (Manual) PT INR D-Dimer Heparin Anti-Xa Level ABG pH POC ABG pCO2 POC ABG pO2 ABG Hemoglobin ABG Oxyhemoglobin ABG Sodium ABG Potassium ABG Chloride ABG Glucose Carboxyhemoglobin Sodium 132 L Potassium Chloride 93.3 L Carbon Dioxide 20 L BUN 46 H Creatinine 1.9 H Glucose 503 H* POC Glucose Lactic Acid 3.40 H* Calcium 7.9 L Phosphorus 5.80 H Magnesium Ferritin Total Bilirubin Direct Bilirubin AST ALT Alkaline Phosphatase Ammonia Lactate Dehydrogenase Troponin T C-Reactive Protein Total Protein Albumin Triglycerides Cholesterol HDL Cholesterol Lipase Arterial Blood Glucose Arterial Blood Ionized Calcium Urine WBC (Auto) Salicylates Acetaminophen Coronavirus (PCR) 03/02/21 03/02/21 03/02/21 11:23 11:38 15:33 WBC RBC Hgb Hct MCV MCH RDW Seg Neutrophils % Monocytes % (Manual) Seg Neutrophils # Monocytes # (Manual) PT INR D-Dimer Heparin Anti-Xa Level ABG pH 7.318 L POC ABG pCO2 POC ABG pO2 ABG Hemoglobin 9.2 L ABG Oxyhemoglobin ABG Sodium 133.2 L ABG Potassium ABG Chloride ABG Glucose 504 H Carboxyhemoglobin 0.3 L Sodium Potassium Chloride Carbon Dioxide BUN Creatinine Glucose POC Glucose 468 H 445 H Lactic Acid Calcium Phosphorus Magnesium Ferritin Total Bilirubin Direct Bilirubin AST ALT Alkaline Phosphatase Ammonia Lactate Dehydrogenase Troponin T C-Reactive Protein Total Protein Albumin Triglycerides Cholesterol HDL Cholesterol Lipase Arterial Blood Glucose 504 H Arterial Blood Ionized Calcium 4.2 L Urine WBC (Auto) Salicylates Acetaminophen Coronavirus (PCR) 03/02/21 03/02/21 03/02/21 16:28 16:28 16:28 WBC RBC Hgb 8.8 L Hct 26.0 L MCV MCH RDW Seg Neutrophils % Monocytes % (Manual) Seg Neutrophils # Monocytes # (Manual) PT 15.2 H INR 1.14 H D-Dimer Heparin Anti-Xa Level ABG pH POC ABG pCO2 POC ABG pO2 ABG Hemoglobin ABG Oxyhemoglobin ABG Sodium ABG Potassium ABG Chloride ABG Glucose Carboxyhemoglobin Sodium 135 L Potassium Chloride 93.8 L Carbon Dioxide BUN 48 H Creatinine 1.8 H Glucose 454 H POC Glucose Lactic Acid Calcium 7.6 L Phosphorus Magnesium Ferritin Total Bilirubin Direct Bilirubin AST ALT Alkaline Phosphatase Ammonia Lactate Dehydrogenase Troponin T C-Reactive Protein Total Protein Albumin Triglycerides Cholesterol HDL Cholesterol Lipase Arterial Blood Glucose Arterial Blood Ionized Calcium Urine WBC (Auto) Salicylates Acetaminophen Coronavirus (PCR) 03/02/21 03/02/21 03/02/21 17:39 18:52 20:09 WBC RBC Hgb Hct MCV MCH RDW Seg Neutrophils % Monocytes % (Manual) Seg Neutrophils # Monocytes # (Manual) PT INR D-Dimer Heparin Anti-Xa Level ABG pH POC ABG pCO2 POC ABG pO2 ABG Hemoglobin ABG Oxyhemoglobin ABG Sodium ABG Potassium ABG Chloride ABG Glucose Carboxyhemoglobin Sodium Potassium Chloride Carbon Dioxide BUN Creatinine Glucose POC Glucose 404 H 357 H 347 H Lactic Acid Calcium Phosphorus Magnesium Ferritin Total Bilirubin Direct Bilirubin AST ALT Alkaline Phosphatase Ammonia Lactate Dehydrogenase Troponin T C-Reactive Protein Total Protein Albumin Triglycerides Cholesterol HDL Cholesterol Lipase Arterial Blood Glucose Arterial Blood Ionized Calcium Urine WBC (Auto) Salicylates Acetaminophen Coronavirus (PCR) 03/02/21 03/02/21 03/02/21 21:03 22:00 22:55 WBC RBC Hgb Hct MCV MCH RDW Seg Neutrophils % Monocytes % (Manual) Seg Neutrophils # Monocytes # (Manual) PT INR D-Dimer Heparin Anti-Xa Level ABG pH POC ABG pCO2 POC ABG pO2 ABG Hemoglobin ABG Oxyhemoglobin ABG Sodium ABG Potassium ABG Chloride ABG Glucose Carboxyhemoglobin Sodium Potassium Chloride Carbon Dioxide BUN Creatinine Glucose POC Glucose 307 H 270 H 237 H Lactic Acid Calcium Phosphorus Magnesium Ferritin Total Bilirubin Direct Bilirubin AST ALT Alkaline Phosphatase Ammonia Lactate Dehydrogenase Troponin T C-Reactive Protein Total Protein Albumin Triglycerides Cholesterol HDL Cholesterol Lipase Arterial Blood Glucose Arterial Blood Ionized Calcium Urine WBC (Auto) Salicylates Acetaminophen Coronavirus (PCR) 03/03/21 03/03/21 03/03/21 00:02 00:57 02:01 WBC RBC Hgb Hct MCV MCH RDW Seg Neutrophils % Monocytes % (Manual) Seg Neutrophils # Monocytes # (Manual) PT INR D-Dimer Heparin Anti-Xa Level ABG pH POC ABG pCO2 POC ABG pO2 ABG Hemoglobin ABG Oxyhemoglobin ABG Sodium ABG Potassium ABG Chloride ABG Glucose Carboxyhemoglobin Sodium Potassium Chloride Carbon Dioxide BUN Creatinine Glucose POC Glucose 252 H 214 H 261 H Lactic Acid Calcium Phosphorus Magnesium Ferritin Total Bilirubin Direct Bilirubin AST ALT Alkaline Phosphatase Ammonia Lactate Dehydrogenase Troponin T C-Reactive Protein Total Protein Albumin Triglycerides Cholesterol HDL Cholesterol Lipase Arterial Blood Glucose Arterial Blood Ionized Calcium Urine WBC (Auto) Salicylates Acetaminophen Coronavirus (PCR) 03/03/21 03/03/21 03/03/21 03:07 03:10 03:50 WBC 13.7 H RBC 2.69 L Hgb 8.7 L Hct 26.9 L MCV 100 H MCH RDW 18.5 H Seg Neutrophils % 79.0 H Monocytes % (Manual) Seg Neutrophils # 10.8 H Monocytes # (Manual) PT INR D-Dimer Heparin Anti-Xa Level ABG pH POC ABG pCO2 50.9 H POC ABG pO2 81.9 L ABG Hemoglobin 8.7 L ABG Oxyhemoglobin ABG Sodium 134.2 L ABG Potassium ABG Chloride 96.0 L ABG Glucose 279 H Carboxyhemoglobin 0.4 L Sodium Potassium Chloride Carbon Dioxide BUN Creatinine Glucose POC Glucose 276 H Lactic Acid Calcium Phosphorus Magnesium Ferritin Total Bilirubin Direct Bilirubin AST ALT Alkaline Phosphatase Ammonia Lactate Dehydrogenase Troponin T C-Reactive Protein Total Protein Albumin Triglycerides Cholesterol HDL Cholesterol Lipase Arterial Blood Glucose 279 H Arterial Blood Ionized Calcium 3.9 L Urine WBC (Auto) Salicylates Acetaminophen Coronavirus (PCR) 03/03/21 03/03/21 03/03/21 03:50 04:06 04:32 WBC RBC Hgb Hct MCV MCH RDW Seg Neutrophils % Monocytes % (Manual) Seg Neutrophils # Monocytes # (Manual) PT INR D-Dimer Heparin Anti-Xa Level ABG pH POC ABG pCO2 POC ABG pO2 ABG Hemoglobin ABG Oxyhemoglobin ABG Sodium ABG Potassium ABG Chloride ABG Glucose Carboxyhemoglobin Sodium Potassium Chloride 94.2 L Carbon Dioxide BUN 45 H Creatinine 1.9 H Glucose 261 H POC Glucose 256 H Lactic Acid Calcium 7.3 L Phosphorus Magnesium Ferritin Total Bilirubin Direct Bilirubin 0.9 H AST 208 H ALT 148 H Alkaline Phosphatase 251 H Ammonia Lactate Dehydrogenase Troponin T C-Reactive Protein Total Protein 5.5 L Albumin 2.4 L Triglycerides Cholesterol HDL Cholesterol Lipase Arterial Blood Glucose Arterial Blood Ionized Calcium Urine WBC (Auto) Salicylates Acetaminophen Coronavirus (PCR) 03/03/21 03/03/21 03/03/21 05:23 06:06 07:07 WBC RBC Hgb Hct MCV MCH RDW Seg Neutrophils % Monocytes % (Manual) Seg Neutrophils # Monocytes # (Manual) PT INR D-Dimer Heparin Anti-Xa Level ABG pH POC ABG pCO2 POC ABG pO2 ABG Hemoglobin ABG Oxyhemoglobin ABG Sodium ABG Potassium ABG Chloride ABG Glucose Carboxyhemoglobin Sodium Potassium Chloride Carbon Dioxide BUN Creatinine Glucose POC Glucose 214 H 249 H 237 H Lactic Acid Calcium Phosphorus Magnesium Ferritin Total Bilirubin Direct Bilirubin AST ALT Alkaline Phosphatase Ammonia Lactate Dehydrogenase Troponin T C-Reactive Protein Total Protein Albumin Triglycerides Cholesterol HDL Cholesterol Lipase Arterial Blood Glucose Arterial Blood Ionized Calcium Urine WBC (Auto) Salicylates Acetaminophen Coronavirus (PCR) 03/03/21 03/03/21 03/03/21 07:58 08:58 09:52 WBC RBC Hgb Hct MCV MCH RDW Seg Neutrophils % Monocytes % (Manual) Seg Neutrophils # Monocytes # (Manual) PT INR D-Dimer Heparin Anti-Xa Level ABG pH POC ABG pCO2 POC ABG pO2 ABG Hemoglobin ABG Oxyhemoglobin ABG Sodium ABG Potassium ABG Chloride ABG Glucose Carboxyhemoglobin Sodium Potassium Chloride Carbon Dioxide BUN Creatinine Glucose POC Glucose 227 H 215 H 207 H Lactic Acid Calcium Phosphorus Magnesium Ferritin Total Bilirubin Direct Bilirubin AST ALT Alkaline Phosphatase Ammonia Lactate Dehydrogenase Troponin T C-Reactive Protein Total Protein Albumin Triglycerides Cholesterol HDL Cholesterol Lipase Arterial Blood Glucose Arterial Blood Ionized Calcium Urine WBC (Auto) Salicylates Acetaminophen Coronavirus (PCR) 03/03/21 03/03/21 03/03/21 10:55 11:44 12:53 WBC RBC Hgb Hct MCV MCH RDW Seg Neutrophils % Monocytes % (Manual) Seg Neutrophils # Monocytes # (Manual) PT INR D-Dimer Heparin Anti-Xa Level ABG pH POC ABG pCO2 POC ABG pO2 ABG Hemoglobin ABG Oxyhemoglobin ABG Sodium ABG Potassium ABG Chloride ABG Glucose Carboxyhemoglobin Sodium Potassium Chloride Carbon Dioxide BUN Creatinine Glucose POC Glucose 198 H 210 H 203 H Lactic Acid Calcium Phosphorus Magnesium Ferritin Total Bilirubin Direct Bilirubin AST ALT Alkaline Phosphatase Ammonia Lactate Dehydrogenase Troponin T C-Reactive Protein Total Protein Albumin Triglycerides Cholesterol HDL Cholesterol Lipase Arterial Blood Glucose Arterial Blood Ionized Calcium Urine WBC (Auto) Salicylates Acetaminophen Coronavirus (PCR) 03/03/21 03/03/21 03/03/21 13:53 14:58 15:23 WBC RBC Hgb Hct MCV MCH RDW Seg Neutrophils % Monocytes % (Manual) Seg Neutrophils # Monocytes # (Manual) PT INR D-Dimer Heparin Anti-Xa Level ABG pH POC ABG pCO2 POC ABG pO2 ABG Hemoglobin ABG Oxyhemoglobin ABG Sodium ABG Potassium ABG Chloride ABG Glucose Carboxyhemoglobin Sodium Potassium Chloride Carbon Dioxide BUN Creatinine Glucose POC Glucose 210 H 187 H Lactic Acid 3.10 H* Calcium Phosphorus Magnesium Ferritin Total Bilirubin Direct Bilirubin AST ALT Alkaline Phosphatase Ammonia Lactate Dehydrogenase Troponin T C-Reactive Protein Total Protein Albumin Triglycerides Cholesterol HDL Cholesterol Lipase Arterial Blood Glucose Arterial Blood Ionized Calcium Urine WBC (Auto) Salicylates Acetaminophen Coronavirus (PCR) 03/03/21 03/03/21 03/03/21 15:51 16:25 16:53 WBC RBC Hgb Hct MCV MCH RDW Seg Neutrophils % Monocytes % (Manual) Seg Neutrophils # Monocytes # (Manual) PT INR D-Dimer Heparin Anti-Xa Level ABG pH POC ABG pCO2 POC ABG pO2 ABG Hemoglobin ABG Oxyhemoglobin ABG Sodium ABG Potassium ABG Chloride ABG Glucose Carboxyhemoglobin Sodium Potassium Chloride 91.0 L Carbon Dioxide 34 H BUN 47 H Creatinine 1.7 H Glucose 190 H POC Glucose 182 H 179 H Lactic Acid Calcium 7.6 L Phosphorus Magnesium Ferritin Total Bilirubin Direct Bilirubin AST ALT Alkaline Phosphatase Ammonia Lactate Dehydrogenase Troponin T C-Reactive Protein Total Protein Albumin Triglycerides Cholesterol HDL Cholesterol Lipase Arterial Blood Glucose Arterial Blood Ionized Calcium Urine WBC (Auto) Salicylates Acetaminophen Coronavirus (PCR) 03/03/21 03/03/21 03/03/21 17:55 19:37 20:57 WBC RBC Hgb Hct MCV MCH RDW Seg Neutrophils % Monocytes % (Manual) Seg Neutrophils # Monocytes # (Manual) PT INR D-Dimer Heparin Anti-Xa Level ABG pH POC ABG pCO2 POC ABG pO2 ABG Hemoglobin ABG Oxyhemoglobin ABG Sodium ABG Potassium ABG Chloride ABG Glucose Carboxyhemoglobin Sodium Potassium Chloride Carbon Dioxide BUN Creatinine Glucose POC Glucose 185 H 174 H 175 H Lactic Acid Calcium Phosphorus Magnesium Ferritin Total Bilirubin Direct Bilirubin AST ALT Alkaline Phosphatase Ammonia Lactate Dehydrogenase Troponin T C-Reactive Protein Total Protein Albumin Triglycerides Cholesterol HDL Cholesterol Lipase Arterial Blood Glucose Arterial Blood Ionized Calcium Urine WBC (Auto) Salicylates Acetaminophen Coronavirus (PCR) 03/03/21 03/03/21 03/03/21 22:02 22:56 23:10 WBC RBC Hgb Hct MCV MCH RDW Seg Neutrophils % Monocytes % (Manual) Seg Neutrophils # Monocytes # (Manual) PT INR D-Dimer Heparin Anti-Xa Level 0.75 H ABG pH POC ABG pCO2 POC ABG pO2 ABG Hemoglobin ABG Oxyhemoglobin ABG Sodium ABG Potassium ABG Chloride ABG Glucose Carboxyhemoglobin Sodium Potassium Chloride Carbon Dioxide BUN Creatinine Glucose POC Glucose 170 H 160 H Lactic Acid Calcium Phosphorus Magnesium Ferritin Total Bilirubin Direct Bilirubin AST ALT Alkaline Phosphatase Ammonia Lactate Dehydrogenase Troponin T C-Reactive Protein Total Protein Albumin Triglycerides Cholesterol HDL Cholesterol Lipase Arterial Blood Glucose Arterial Blood Ionized Calcium Urine WBC (Auto) Salicylates Acetaminophen Coronavirus (PCR) 03/03/21 03/04/21 03/04/21 23:42 00:52 01:55 WBC RBC Hgb Hct MCV MCH RDW Seg Neutrophils % Monocytes % (Manual) Seg Neutrophils # Monocytes # (Manual) PT INR D-Dimer Heparin Anti-Xa Level ABG pH POC ABG pCO2 POC ABG pO2 ABG Hemoglobin ABG Oxyhemoglobin ABG Sodium ABG Potassium ABG Chloride ABG Glucose Carboxyhemoglobin Sodium Potassium Chloride Carbon Dioxide BUN Creatinine Glucose POC Glucose 161 H 167 H 119 H Lactic Acid Calcium Phosphorus Magnesium Ferritin Total Bilirubin Direct Bilirubin AST ALT Alkaline Phosphatase Ammonia Lactate Dehydrogenase Troponin T C-Reactive Protein Total Protein Albumin Triglycerides Cholesterol HDL Cholesterol Lipase Arterial Blood Glucose Arterial Blood Ionized Calcium Urine WBC (Auto) Salicylates Acetaminophen Coronavirus (PCR) 03/04/21 03/04/21 03/04/21 02:58 03:47 04:03 WBC RBC Hgb Hct MCV MCH RDW Seg Neutrophils % Monocytes % (Manual) Seg Neutrophils # Monocytes # (Manual) PT INR D-Dimer Heparin Anti-Xa Level ABG pH POC ABG pCO2 57.3 H POC ABG pO2 63.7 L ABG Hemoglobin 8.4 L ABG Oxyhemoglobin 88.6 L ABG Sodium 132.5 L ABG Potassium 3.2 L ABG Chloride 94.0 L ABG Glucose 129 H Carboxyhemoglobin Sodium Potassium Chloride Carbon Dioxide BUN Creatinine Glucose POC Glucose 111 H 122 H Lactic Acid Calcium Phosphorus Magnesium Ferritin Total Bilirubin Direct Bilirubin AST ALT Alkaline Phosphatase Ammonia Lactate Dehydrogenase Troponin T C-Reactive Protein Total Protein Albumin Triglycerides Cholesterol HDL Cholesterol Lipase Arterial Blood Glucose 129 H Arterial Blood Ionized Calcium 3.8 L Urine WBC (Auto) Salicylates Acetaminophen Coronavirus (PCR) 03/04/21 03/04/21 03/04/21 05:15 05:26 05:26 WBC RBC Hgb 7.9 L Hct 23.7 L MCV MCH RDW Seg Neutrophils % Monocytes % (Manual) Seg Neutrophils # Monocytes # (Manual) PT INR D-Dimer Heparin Anti-Xa Level ABG pH POC ABG pCO2 POC ABG pO2 ABG Hemoglobin ABG Oxyhemoglobin ABG Sodium ABG Potassium ABG Chloride ABG Glucose Carboxyhemoglobin Sodium Potassium Chloride Carbon Dioxide BUN Creatinine Glucose POC Glucose 127 H Lactic Acid Calcium Phosphorus Magnesium Ferritin Total Bilirubin Direct Bilirubin 0.6 H AST 123 H ALT 105 H Alkaline Phosphatase 232 H Ammonia Lactate Dehydrogenase Troponin T C-Reactive Protein Total Protein 4.8 L Albumin 2.2 L Triglycerides Cholesterol HDL Cholesterol Lipase Arterial Blood Glucose Arterial Blood Ionized Calcium Urine WBC (Auto) Salicylates Acetaminophen Coronavirus (PCR) 03/04/21 03/04/21 03/04/21 05:26 06:01 06:53 WBC RBC Hgb Hct MCV MCH RDW Seg Neutrophils % Monocytes % (Manual) Seg Neutrophils # Monocytes # (Manual) PT INR D-Dimer Heparin Anti-Xa Level 0.71 H ABG pH POC ABG pCO2 POC ABG pO2 ABG Hemoglobin ABG Oxyhemoglobin ABG Sodium ABG Potassium ABG Chloride ABG Glucose Carboxyhemoglobin Sodium Potassium Chloride Carbon Dioxide BUN Creatinine Glucose POC Glucose 120 H 117 H Lactic Acid Calcium Phosphorus Magnesium Ferritin Total Bilirubin Direct Bilirubin AST ALT Alkaline Phosphatase Ammonia Lactate Dehydrogenase Troponin T C-Reactive Protein Total Protein Albumin Triglycerides Cholesterol HDL Cholesterol Lipase Arterial Blood Glucose Arterial Blood Ionized Calcium Urine WBC (Auto) Salicylates Acetaminophen Coronavirus (PCR) 03/04/21 03/04/21 03/04/21 07:57 10:17 10:17 WBC RBC 2.51 L Hgb 8.3 L Hct 25.3 L MCV 101 H MCH 33 H RDW 18.5 H Seg Neutrophils % Monocytes % (Manual) Seg Neutrophils # Monocytes # (Manual) PT INR D-Dimer Heparin Anti-Xa Level ABG pH POC ABG pCO2 POC ABG pO2 ABG Hemoglobin ABG Oxyhemoglobin ABG Sodium ABG Potassium ABG Chloride ABG Glucose Carboxyhemoglobin Sodium 136 L Potassium Chloride 93.1 L Carbon Dioxide 33 H BUN 46 H Creatinine 1.4 H Glucose 151 H POC Glucose 129 H Lactic Acid Calcium 7.5 L Phosphorus Magnesium Ferritin Total Bilirubin Direct Bilirubin AST 126 H ALT 100 H Alkaline Phosphatase 226 H Ammonia Lactate Dehydrogenase Troponin T C-Reactive Protein Total Protein 5.0 L Albumin 2.2 L Triglycerides Cholesterol HDL Cholesterol Lipase Arterial Blood Glucose Arterial Blood Ionized Calcium Urine WBC (Auto) Salicylates Acetaminophen Coronavirus (PCR) 03/04/21 03/04/21 03/04/21 10:17 10:17 11:26 WBC RBC Hgb Hct MCV MCH RDW Seg Neutrophils % Monocytes % (Manual) Seg Neutrophils # Monocytes # (Manual) PT 15.6 H INR 1.18 H D-Dimer Heparin Anti-Xa Level ABG pH POC ABG pCO2 POC ABG pO2 ABG Hemoglobin ABG Oxyhemoglobin ABG Sodium ABG Potassium ABG Chloride ABG Glucose Carboxyhemoglobin Sodium Potassium Chloride Carbon Dioxide BUN Creatinine Glucose POC Glucose 167 H Lactic Acid Calcium Phosphorus Magnesium Ferritin Total Bilirubin Direct Bilirubin AST ALT Alkaline Phosphatase Ammonia Lactate Dehydrogenase Troponin T C-Reactive Protein Total Protein Albumin Triglycerides Cholesterol HDL Cholesterol Lipase 78 H Arterial Blood Glucose Arterial Blood Ionized Calcium Urine WBC (Auto) Salicylates Acetaminophen Coronavirus (PCR) 03/04/21 03/04/21 03/04/21 13:04 16:26 17:58 WBC RBC Hgb 7.7 L Hct 23.2 L MCV MCH RDW Seg Neutrophils % Monocytes % (Manual) Seg Neutrophils # Monocytes # (Manual) PT INR D-Dimer Heparin Anti-Xa Level < 0.10 L ABG pH POC ABG pCO2 POC ABG pO2 ABG Hemoglobin ABG Oxyhemoglobin ABG Sodium ABG Potassium ABG Chloride ABG Glucose Carboxyhemoglobin Sodium Potassium Chloride Carbon Dioxide BUN Creatinine Glucose POC Glucose 167 H Lactic Acid Calcium Phosphorus Magnesium Ferritin Total Bilirubin Direct Bilirubin AST ALT Alkaline Phosphatase Ammonia Lactate Dehydrogenase Troponin T C-Reactive Protein Total Protein Albumin Triglycerides Cholesterol HDL Cholesterol Lipase Arterial Blood Glucose Arterial Blood Ionized Calcium Urine WBC (Auto) Salicylates Acetaminophen Coronavirus (PCR) 03/04/21 03/05/21 03/05/21 23:47 04:00 05:06 WBC RBC Hgb Hct MCV MCH RDW Seg Neutrophils % Monocytes % (Manual) Seg Neutrophils # Monocytes # (Manual) PT INR D-Dimer Heparin Anti-Xa Level ABG pH POC ABG pCO2 POC ABG pO2 129.1 H ABG Hemoglobin 8.3 L ABG Oxyhemoglobin ABG Sodium 131.4 L ABG Potassium ABG Chloride 95.0 L ABG Glucose 153 H Carboxyhemoglobin Sodium Potassium Chloride Carbon Dioxide BUN Creatinine Glucose POC Glucose 153 H 139 H Lactic Acid Calcium Phosphorus Magnesium Ferritin Total Bilirubin Direct Bilirubin AST ALT Alkaline Phosphatase Ammonia Lactate Dehydrogenase Troponin T C-Reactive Protein Total Protein Albumin Triglycerides Cholesterol HDL Cholesterol Lipase Arterial Blood Glucose 153 H Arterial Blood Ionized Calcium Urine WBC (Auto) Salicylates Acetaminophen Coronavirus (PCR) 03/05/21 03/05/21 03/05/21 11:43 13:35 13:35 WBC RBC 2.38 L Hgb 7.8 L Hct 23.8 L MCV 100 H MCH 33 H RDW 18.2 H Seg Neutrophils % Monocytes % (Manual) Seg Neutrophils # Monocytes # (Manual) PT INR D-Dimer Heparin Anti-Xa Level ABG pH POC ABG pCO2 POC ABG pO2 ABG Hemoglobin ABG Oxyhemoglobin ABG Sodium ABG Potassium ABG Chloride ABG Glucose Carboxyhemoglobin Sodium Potassium Chloride 94.4 L Carbon Dioxide BUN 49 H Creatinine 1.6 H Glucose 165 H POC Glucose 174 H Lactic Acid Calcium 7.5 L Phosphorus Magnesium Ferritin Total Bilirubin Direct Bilirubin AST ALT Alkaline Phosphatase Ammonia Lactate Dehydrogenase Troponin T C-Reactive Protein Total Protein Albumin Triglycerides Cholesterol HDL Cholesterol Lipase Arterial Blood Glucose Arterial Blood Ionized Calcium Urine WBC (Auto) Salicylates Acetaminophen Coronavirus (PCR) 03/05/21 03/05/21 03/05/21 17:57 21:27 Unknown WBC RBC Hgb Hct MCV MCH RDW Seg Neutrophils % Monocytes % (Manual) Seg Neutrophils # Monocytes # (Manual) PT INR D-Dimer Heparin Anti-Xa Level ABG pH POC ABG pCO2 POC ABG pO2 ABG Hemoglobin ABG Oxyhemoglobin ABG Sodium ABG Potassium ABG Chloride ABG Glucose Carboxyhemoglobin Sodium Potassium Chloride Carbon Dioxide BUN Creatinine Glucose POC Glucose 129 H 129 H Lactic Acid Calcium Phosphorus Magnesium Ferritin Total Bilirubin Direct Bilirubin AST ALT Alkaline Phosphatase Ammonia Lactate Dehydrogenase Troponin T C-Reactive Protein Total Protein Albumin Triglycerides Cholesterol HDL Cholesterol Lipase Arterial Blood Glucose Arterial Blood Ionized Calcium Urine WBC (Auto) Salicylates Acetaminophen Coronavirus (PCR) Positive A 03/06/21 03/06/21 03/06/21 03:30 04:30 05:20 WBC 15.2 H RBC 2.48 L Hgb 8.2 L Hct 24.9 L MCV 100 H MCH 33 H RDW 18.6 H Seg Neutrophils % 72.6 H Monocytes % (Manual) Seg Neutrophils # 11.1 H Monocytes # (Manual) PT INR D-Dimer Heparin Anti-Xa Level ABG pH POC ABG pCO2 49.7 H POC ABG pO2 65.1 L ABG Hemoglobin 9.1 L ABG Oxyhemoglobin 90.2 L ABG Sodium 131.2 L ABG Potassium ABG Chloride 96.0 L ABG Glucose 133 H Carboxyhemoglobin Sodium Potassium Chloride Carbon Dioxide BUN Creatinine Glucose POC Glucose Lactic Acid Calcium Phosphorus Magnesium Ferritin Total Bilirubin Direct Bilirubin AST ALT Alkaline Phosphatase Ammonia Lactate Dehydrogenase Troponin T C-Reactive Protein 27.90 H Total Protein Albumin Triglycerides Cholesterol HDL Cholesterol Lipase Arterial Blood Glucose 133 H Arterial Blood Ionized Calcium 4.2 L Urine WBC (Auto) Salicylates Acetaminophen Coronavirus (PCR) 03/06/21 03/06/21 03/06/21 05:20 05:30 11:52 WBC RBC Hgb Hct MCV MCH RDW Seg Neutrophils % Monocytes % (Manual) Seg Neutrophils # Monocytes # (Manual) PT INR D-Dimer Heparin Anti-Xa Level ABG pH POC ABG pCO2 POC ABG pO2 ABG Hemoglobin ABG Oxyhemoglobin ABG Sodium ABG Potassium ABG Chloride ABG Glucose Carboxyhemoglobin Sodium 135 L Potassium Chloride 94.5 L Carbon Dioxide BUN 49 H Creatinine Glucose 121 H POC Glucose 123 H 123 H Lactic Acid Calcium 7.3 L Phosphorus Magnesium 1.50 L Ferritin Total Bilirubin Direct Bilirubin AST 120 H ALT 74 H Alkaline Phosphatase 306 H Ammonia Lactate Dehydrogenase Troponin T C-Reactive Protein Total Protein 4.5 L Albumin 2.0 L Triglycerides Cholesterol HDL Cholesterol Lipase Arterial Blood Glucose Arterial Blood Ionized Calcium Urine WBC (Auto) Salicylates Acetaminophen Coronavirus (PCR) 03/06/21 03/06/21 03/06/21 14:34 17:45 23:36 WBC RBC Hgb Hct MCV MCH RDW Seg Neutrophils % Monocytes % (Manual) Seg Neutrophils # Monocytes # (Manual) PT INR D-Dimer Heparin Anti-Xa Level ABG pH POC ABG pCO2 POC ABG pO2 ABG Hemoglobin ABG Oxyhemoglobin ABG Sodium ABG Potassium ABG Chloride ABG Glucose Carboxyhemoglobin Sodium Potassium Chloride Carbon Dioxide BUN Creatinine Glucose POC Glucose 140 H 209 H Lactic Acid Calcium Phosphorus Magnesium Ferritin Total Bilirubin Direct Bilirubin AST ALT Alkaline Phosphatase Ammonia Lactate Dehydrogenase Troponin T C-Reactive Protein Total Protein Albumin Triglycerides Cholesterol HDL Cholesterol Lipase Arterial Blood Glucose Arterial Blood Ionized Calcium Urine WBC (Auto) 103.0 H Salicylates Acetaminophen Coronavirus (PCR) 03/07/21 03/07/21 03/07/21 03:00 05:32 08:16 WBC RBC Hgb Hct MCV MCH RDW Seg Neutrophils % Monocytes % (Manual) Seg Neutrophils # Monocytes # (Manual) PT INR D-Dimer Heparin Anti-Xa Level ABG pH POC ABG pCO2 POC ABG pO2 ABG Hemoglobin 8.9 L ABG Oxyhemoglobin ABG Sodium 131.4 L ABG Potassium ABG Chloride ABG Glucose 224 H Carboxyhemoglobin Sodium 136 L Potassium Chloride 95.3 L Carbon Dioxide BUN 45 H Creatinine Glucose 210 H POC Glucose 213 H Lactic Acid Calcium 8.0 L Phosphorus Magnesium Ferritin Total Bilirubin 1.30 H Direct Bilirubin AST 144 H ALT 66 H Alkaline Phosphatase 335 H Ammonia Lactate Dehydrogenase Troponin T C-Reactive Protein Total Protein 4.9 L Albumin 2.1 L Triglycerides Cholesterol HDL Cholesterol Lipase Arterial Blood Glucose 224 H Arterial Blood Ionized Calcium 4.3 L Urine WBC (Auto) Salicylates Acetaminophen Coronavirus (PCR) 03/07/21 03/07/21 03/07/21 08:16 08:16 08:16 WBC RBC 2.47 L Hgb 8.2 L Hct 24.6 L MCV 100 H MCH 33 H RDW 18.1 H Seg Neutrophils % Monocytes % (Manual) Seg Neutrophils # Monocytes # (Manual) PT INR D-Dimer 403.72 H Heparin Anti-Xa Level ABG pH POC ABG pCO2 POC ABG pO2 ABG Hemoglobin ABG Oxyhemoglobin ABG Sodium ABG Potassium ABG Chloride ABG Glucose Carboxyhemoglobin Sodium Potassium Chloride Carbon Dioxide BUN Creatinine Glucose POC Glucose Lactic Acid Calcium Phosphorus Magnesium Ferritin Total Bilirubin Direct Bilirubin AST ALT Alkaline Phosphatase Ammonia Lactate Dehydrogenase 453 H Troponin T C-Reactive Protein 32.50 H Total Protein Albumin Triglycerides Cholesterol HDL Cholesterol Lipase Arterial Blood Glucose Arterial Blood Ionized Calcium Urine WBC (Auto) Salicylates Acetaminophen Coronavirus (PCR) 03/07/21 03/07/21 03/07/21 08:16 11:24 17:22 WBC RBC Hgb Hct MCV MCH RDW Seg Neutrophils % Monocytes % (Manual) Seg Neutrophils # Monocytes # (Manual) PT INR D-Dimer Heparin Anti-Xa Level ABG pH POC ABG pCO2 POC ABG pO2 ABG Hemoglobin ABG Oxyhemoglobin ABG Sodium ABG Potassium ABG Chloride ABG Glucose Carboxyhemoglobin Sodium Potassium Chloride Carbon Dioxide BUN Creatinine Glucose POC Glucose 205 H 211 H Lactic Acid Calcium Phosphorus Magnesium Ferritin > 2000.0 H Total Bilirubin Direct Bilirubin AST ALT Alkaline Phosphatase Ammonia Lactate Dehydrogenase Troponin T C-Reactive Protein Total Protein Albumin Triglycerides Cholesterol HDL Cholesterol Lipase Arterial Blood Glucose Arterial Blood Ionized Calcium Urine WBC (Auto) Salicylates Acetaminophen Coronavirus (PCR) 03/07/21 03/08/21 03/08/21 Unknown 00:05 04:00 WBC RBC Hgb Hct MCV MCH RDW Seg Neutrophils % Monocytes % (Manual) Seg Neutrophils # Monocytes # (Manual) PT INR D-Dimer Heparin Anti-Xa Level 0.94 H ABG pH 7.452 H POC ABG pCO2 POC ABG pO2 75.5 L ABG Hemoglobin 10.0 L ABG Oxyhemoglobin 93.5 L ABG Sodium 134.7 L ABG Potassium ABG Chloride ABG Glucose 268 H Carboxyhemoglobin 0.3 L Sodium Potassium Chloride Carbon Dioxide BUN Creatinine Glucose POC Glucose 253 H Lactic Acid Calcium Phosphorus Magnesium Ferritin Total Bilirubin Direct Bilirubin AST ALT Alkaline Phosphatase Ammonia Lactate Dehydrogenase Troponin T C-Reactive Protein Total Protein Albumin Triglycerides Cholesterol HDL Cholesterol Lipase Arterial Blood Glucose 268 H Arterial Blood Ionized Calcium 4.5 L Urine WBC (Auto) Salicylates Acetaminophen Coronavirus (PCR) 03/08/21 03/08/21 03/08/21 05:27 06:10 06:10 WBC RBC 2.62 L Hgb 8.4 L Hct 26.0 L MCV 100 H MCH RDW 18.0 H Seg Neutrophils % Monocytes % (Manual) Seg Neutrophils # Monocytes # (Manual) PT INR D-Dimer Heparin Anti-Xa Level ABG pH POC ABG pCO2 POC ABG pO2 ABG Hemoglobin ABG Oxyhemoglobin ABG Sodium ABG Potassium ABG Chloride ABG Glucose Carboxyhemoglobin Sodium Potassium Chloride Carbon Dioxide BUN 49 H Creatinine Glucose 280 H POC Glucose 273 H Lactic Acid Calcium Phosphorus Magnesium Ferritin Total Bilirubin Direct Bilirubin AST 130 H ALT 68 H Alkaline Phosphatase 440 H Ammonia Lactate Dehydrogenase Troponin T C-Reactive Protein Total Protein 5.3 L Albumin 1.9 L Triglycerides Cholesterol HDL Cholesterol Lipase Arterial Blood Glucose Arterial Blood Ionized Calcium Urine WBC (Auto) Salicylates Acetaminophen Coronavirus (PCR) 03/08/21 03/08/21 03/08/21 11:27 17:56 23:20 WBC RBC Hgb Hct MCV MCH RDW Seg Neutrophils % Monocytes % (Manual) Seg Neutrophils # Monocytes # (Manual) PT INR D-Dimer Heparin Anti-Xa Level ABG pH POC ABG pCO2 POC ABG pO2 ABG Hemoglobin ABG Oxyhemoglobin ABG Sodium ABG Potassium ABG Chloride ABG Glucose Carboxyhemoglobin Sodium Potassium Chloride Carbon Dioxide BUN Creatinine Glucose POC Glucose 258 H 279 H 289 H Lactic Acid Calcium Phosphorus Magnesium Ferritin Total Bilirubin Direct Bilirubin AST ALT Alkaline Phosphatase Ammonia Lactate Dehydrogenase Troponin T C-Reactive Protein Total Protein Albumin Triglycerides Cholesterol HDL Cholesterol Lipase Arterial Blood Glucose Arterial Blood Ionized Calcium Urine WBC (Auto) Salicylates Acetaminophen Coronavirus (PCR) 03/09/21 03/09/21 03/09/21 04:00 05:12 08:00 WBC RBC Hgb Hct MCV MCH RDW Seg Neutrophils % Monocytes % (Manual) Seg Neutrophils # Monocytes # (Manual) PT INR D-Dimer 249.59 H Heparin Anti-Xa Level ABG pH 7.456 H POC ABG pCO2 POC ABG pO2 ABG Hemoglobin 8.9 L ABG Oxyhemoglobin ABG Sodium 135.6 L ABG Potassium ABG Chloride ABG Glucose 298 H Carboxyhemoglobin 0.3 L Sodium Potassium Chloride Carbon Dioxide BUN Creatinine Glucose POC Glucose 267 H Lactic Acid Calcium Phosphorus Magnesium Ferritin Total Bilirubin Direct Bilirubin AST ALT Alkaline Phosphatase Ammonia Lactate Dehydrogenase Troponin T C-Reactive Protein Total Protein Albumin Triglycerides Cholesterol HDL Cholesterol Lipase Arterial Blood Glucose 298 H Arterial Blood Ionized Calcium 4.5 L Urine WBC (Auto) Salicylates Acetaminophen Coronavirus (PCR) 03/09/21 03/09/21 03/09/21 08:00 08:00 08:00 WBC RBC Hgb Hct MCV MCH RDW Seg Neutrophils % Monocytes % (Manual) Seg Neutrophils # Monocytes # (Manual) PT INR D-Dimer Heparin Anti-Xa Level ABG pH POC ABG pCO2 POC ABG pO2 ABG Hemoglobin ABG Oxyhemoglobin ABG Sodium ABG Potassium ABG Chloride ABG Glucose Carboxyhemoglobin Sodium Potassium Chloride Carbon Dioxide BUN 44 H Creatinine Glucose 289 H POC Glucose Lactic Acid Calcium Phosphorus Magnesium Ferritin 2743.0 H Total Bilirubin Direct Bilirubin AST 134 H ALT 62 H Alkaline Phosphatase 527 H Ammonia Lactate Dehydrogenase 459 H Troponin T C-Reactive Protein 10.60 H Total Protein 5.0 L Albumin 2.2 L Triglycerides Cholesterol HDL Cholesterol Lipase Arterial Blood Glucose Arterial Blood Ionized Calcium Urine WBC (Auto) Salicylates Acetaminophen Coronavirus (PCR) 03/09/21 03/09/21 03/09/21 08:00 11:52 18:05 WBC RBC 2.60 L Hgb 8.5 L Hct 25.5 L MCV 98 H MCH 33 H RDW 18.1 H Seg Neutrophils % Monocytes % (Manual) Seg Neutrophils # Monocytes # (Manual) PT INR D-Dimer Heparin Anti-Xa Level ABG pH POC ABG pCO2 POC ABG pO2 ABG Hemoglobin ABG Oxyhemoglobin ABG Sodium ABG Potassium ABG Chloride ABG Glucose Carboxyhemoglobin Sodium Potassium Chloride Carbon Dioxide BUN Creatinine Glucose POC Glucose 306 H 293 H Lactic Acid Calcium Phosphorus Magnesium Ferritin Total Bilirubin Direct Bilirubin AST ALT Alkaline Phosphatase Ammonia Lactate Dehydrogenase Troponin T C-Reactive Protein Total Protein Albumin Triglycerides Cholesterol HDL Cholesterol Lipase Arterial Blood Glucose Arterial Blood Ionized Calcium Urine WBC (Auto) Salicylates Acetaminophen Coronavirus (PCR) 03/09/21 03/10/21 03/10/21 23:21 04:38 05:25 WBC RBC Hgb 8.6 L Hct 26.0 L MCV MCH RDW Seg Neutrophils % Monocytes % (Manual) Seg Neutrophils # Monocytes # (Manual) PT INR D-Dimer Heparin Anti-Xa Level ABG pH POC ABG pCO2 POC ABG pO2 ABG Hemoglobin ABG Oxyhemoglobin ABG Sodium ABG Potassium ABG Chloride ABG Glucose Carboxyhemoglobin Sodium Potassium Chloride Carbon Dioxide BUN Creatinine Glucose POC Glucose 306 H 310 H Lactic Acid Calcium Phosphorus Magnesium Ferritin Total Bilirubin Direct Bilirubin AST ALT Alkaline Phosphatase Ammonia Lactate Dehydrogenase Troponin T C-Reactive Protein Total Protein Albumin Triglycerides Cholesterol HDL Cholesterol Lipase Arterial Blood Glucose Arterial Blood Ionized Calcium Urine WBC (Auto) Salicylates Acetaminophen Coronavirus (PCR) 03/10/21 03/10/21 03/10/21 05:25 12:33 12:52 WBC RBC Hgb Hct MCV MCH RDW Seg Neutrophils % Monocytes % (Manual) Seg Neutrophils # Monocytes # (Manual) PT INR D-Dimer Heparin Anti-Xa Level ABG pH 7.487 H POC ABG pCO2 POC ABG pO2 62.1 L ABG Hemoglobin 9.4 L ABG Oxyhemoglobin 89.7 L ABG Sodium ABG Potassium ABG Chloride ABG Glucose 350 H Carboxyhemoglobin 0.2 L Sodium Potassium Chloride Carbon Dioxide 32 H BUN 45 H Creatinine Glucose 341 H POC Glucose 340 H Lactic Acid Calcium Phosphorus Magnesium Ferritin Total Bilirubin Direct Bilirubin AST ALT Alkaline Phosphatase Ammonia Lactate Dehydrogenase Troponin T C-Reactive Protein Total Protein Albumin Triglycerides Cholesterol HDL Cholesterol Lipase Arterial Blood Glucose 350 H Arterial Blood Ionized Calcium Urine WBC (Auto) Salicylates Acetaminophen Coronavirus (PCR) 03/10/21 03/10/21 03/11/21 17:05 22:57 04:58 WBC RBC Hgb Hct MCV MCH RDW Seg Neutrophils % Monocytes % (Manual) Seg Neutrophils # Monocytes # (Manual) PT INR D-Dimer Heparin Anti-Xa Level ABG pH POC ABG pCO2 POC ABG pO2 ABG Hemoglobin ABG Oxyhemoglobin ABG Sodium ABG Potassium ABG Chloride ABG Glucose Carboxyhemoglobin Sodium Potassium Chloride Carbon Dioxide BUN Creatinine Glucose POC Glucose 298 H 241 H 261 H Lactic Acid Calcium Phosphorus Magnesium Ferritin Total Bilirubin Direct Bilirubin AST ALT Alkaline Phosphatase Ammonia Lactate Dehydrogenase Troponin T C-Reactive Protein Total Protein Albumin Triglycerides Cholesterol HDL Cholesterol Lipase Arterial Blood Glucose Arterial Blood Ionized Calcium Urine WBC (Auto) Salicylates Acetaminophen Coronavirus (PCR) 03/11/21 03/11/21 03/11/21 06:54 06:54 06:54 WBC RBC Hgb Hct MCV MCH RDW Seg Neutrophils % Monocytes % (Manual) Seg Neutrophils # Monocytes # (Manual) PT INR D-Dimer 238.43 H Heparin Anti-Xa Level ABG pH POC ABG pCO2 POC ABG pO2 ABG Hemoglobin ABG Oxyhemoglobin ABG Sodium ABG Potassium ABG Chloride ABG Glucose Carboxyhemoglobin Sodium 146 H Potassium Chloride Carbon Dioxide 31 H BUN 41 H Creatinine Glucose 255 H POC Glucose Lactic Acid Calcium Phosphorus Magnesium Ferritin 3346.0 H Total Bilirubin Direct Bilirubin AST ALT Alkaline Phosphatase Ammonia Lactate Dehydrogenase 557 H Troponin T C-Reactive Protein 4.70 H Total Protein Albumin Triglycerides Cholesterol HDL Cholesterol Lipase Arterial Blood Glucose Arterial Blood Ionized Calcium Urine WBC (Auto) Salicylates Acetaminophen Coronavirus (PCR) 03/11/21 03/11/21 03/11/21 06:54 11:25 17:41 WBC RBC 2.76 L Hgb 8.9 L Hct 27.0 L MCV 98 H MCH RDW 18.3 H Seg Neutrophils % Monocytes % (Manual) Seg Neutrophils # Monocytes # (Manual) PT INR D-Dimer Heparin Anti-Xa Level ABG pH POC ABG pCO2 POC ABG pO2 ABG Hemoglobin ABG Oxyhemoglobin ABG Sodium ABG Potassium ABG Chloride ABG Glucose Carboxyhemoglobin Sodium Potassium Chloride Carbon Dioxide BUN Creatinine Glucose POC Glucose 255 H 292 H Lactic Acid Calcium Phosphorus Magnesium Ferritin Total Bilirubin Direct Bilirubin AST ALT Alkaline Phosphatase Ammonia Lactate Dehydrogenase Troponin T C-Reactive Protein Total Protein Albumin Triglycerides Cholesterol HDL Cholesterol Lipase Arterial Blood Glucose Arterial Blood Ionized Calcium Urine WBC (Auto) Salicylates Acetaminophen Coronavirus (PCR) 03/11/21 03/12/21 03/12/21 23:26 04:44 05:16 WBC RBC Hgb Hct MCV MCH RDW Seg Neutrophils % Monocytes % (Manual) Seg Neutrophils # Monocytes # (Manual) PT INR D-Dimer Heparin Anti-Xa Level ABG pH POC ABG pCO2 POC ABG pO2 ABG Hemoglobin ABG Oxyhemoglobin ABG Sodium ABG Potassium ABG Chloride ABG Glucose Carboxyhemoglobin Sodium Potassium Chloride Carbon Dioxide BUN Creatinine Glucose POC Glucose 289 H 255 H Lactic Acid Calcium Phosphorus Magnesium Ferritin Total Bilirubin Direct Bilirubin AST ALT Alkaline Phosphatase Ammonia Lactate Dehydrogenase Troponin T 0.149 H* C-Reactive Protein Total Protein Albumin Triglycerides Cholesterol HDL Cholesterol Lipase Arterial Blood Glucose Arterial Blood Ionized Calcium Urine WBC (Auto) Salicylates Acetaminophen Coronavirus (PCR) 03/12/21 03/12/21 03/12/21 12:02 15:00 17:28 WBC RBC Hgb Hct MCV MCH RDW Seg Neutrophils % Monocytes % (Manual) Seg Neutrophils # Monocytes # (Manual) PT INR D-Dimer Heparin Anti-Xa Level ABG pH POC ABG pCO2 POC ABG pO2 ABG Hemoglobin ABG Oxyhemoglobin ABG Sodium ABG Potassium ABG Chloride ABG Glucose Carboxyhemoglobin Sodium Potassium 3.2 L Chloride Carbon Dioxide BUN 39 H Creatinine 0.7 L Glucose 258 H POC Glucose 237 H 257 H Lactic Acid Calcium 8.3 L Phosphorus Magnesium Ferritin Total Bilirubin 2.20 H Direct Bilirubin AST 181 H ALT 129 H Alkaline Phosphatase 541 H Ammonia Lactate Dehydrogenase Troponin T C-Reactive Protein Total Protein 5.0 L Albumin 2.0 L Triglycerides Cholesterol HDL Cholesterol Lipase Arterial Blood Glucose Arterial Blood Ionized Calcium Urine WBC (Auto) Salicylates Acetaminophen Coronavirus (PCR) 03/12/21 03/12/21 03/13/21 21:51 23:15 05:44 WBC RBC Hgb Hct MCV MCH RDW Seg Neutrophils % Monocytes % (Manual) Seg Neutrophils # Monocytes # (Manual) PT INR D-Dimer Heparin Anti-Xa Level ABG pH POC ABG pCO2 POC ABG pO2 ABG Hemoglobin ABG Oxyhemoglobin ABG Sodium ABG Potassium ABG Chloride ABG Glucose Carboxyhemoglobin Sodium Potassium Chloride Carbon Dioxide BUN Creatinine Glucose POC Glucose 253 H 287 H 247 H Lactic Acid Calcium Phosphorus Magnesium Ferritin Total Bilirubin Direct Bilirubin AST ALT Alkaline Phosphatase Ammonia Lactate Dehydrogenase Troponin T C-Reactive Protein Total Protein Albumin Triglycerides Cholesterol HDL Cholesterol Lipase Arterial Blood Glucose Arterial Blood Ionized Calcium Urine WBC (Auto) Salicylates Acetaminophen Coronavirus (PCR) 03/13/21 03/13/21 03/14/21 17:03 23:31 03:40 WBC RBC Hgb Hct MCV MCH RDW Seg Neutrophils % Monocytes % (Manual) Seg Neutrophils # Monocytes # (Manual) PT INR D-Dimer 475.91 H Heparin Anti-Xa Level ABG pH POC ABG pCO2 POC ABG pO2 ABG Hemoglobin ABG Oxyhemoglobin ABG Sodium ABG Potassium ABG Chloride ABG Glucose Carboxyhemoglobin Sodium Potassium Chloride Carbon Dioxide BUN Creatinine Glucose POC Glucose 228 H 275 H Lactic Acid Calcium Phosphorus Magnesium Ferritin Total Bilirubin Direct Bilirubin AST ALT Alkaline Phosphatase Ammonia Lactate Dehydrogenase Troponin T C-Reactive Protein Total Protein Albumin Triglycerides Cholesterol HDL Cholesterol Lipase Arterial Blood Glucose Arterial Blood Ionized Calcium Urine WBC (Auto) Salicylates Acetaminophen Coronavirus (PCR) 03/14/21 03/14/21 03/14/21 03:40 03:40 03:40 WBC RBC 2.25 L Hgb 7.4 L Hct 22.2 L MCV 99 H MCH 33 H RDW 18.5 H Seg Neutrophils % Monocytes % (Manual) Seg Neutrophils # Monocytes # (Manual) PT INR D-Dimer Heparin Anti-Xa Level ABG pH POC ABG pCO2 POC ABG pO2 ABG Hemoglobin ABG Oxyhemoglobin ABG Sodium ABG Potassium ABG Chloride ABG Glucose Carboxyhemoglobin Sodium Potassium 3.3 L Chloride Carbon Dioxide 37 H D BUN 24 H Creatinine 0.6 L Glucose 180 H POC Glucose Lactic Acid Calcium Phosphorus Magnesium Ferritin 3103.0 H Total Bilirubin 1.60 H Direct Bilirubin AST 283 H ALT 188 H Alkaline Phosphatase 619 H Ammonia Lactate Dehydrogenase 588 H Troponin T C-Reactive Protein 4.00 H Total Protein 4.8 L Albumin 2.2 L Triglycerides Cholesterol HDL Cholesterol Lipase Arterial Blood Glucose Arterial Blood Ionized Calcium Urine WBC (Auto) Salicylates Acetaminophen Coronavirus (PCR) 03/15/21 03/15/21 03/15/21 00:34 05:00 05:00 WBC RBC 2.40 L Hgb 7.8 L Hct 23.6 L MCV 99 H MCH 33 H RDW 18.3 H Seg Neutrophils % Monocytes % (Manual) Seg Neutrophils # Monocytes # (Manual) PT INR D-Dimer Heparin Anti-Xa Level ABG pH POC ABG pCO2 POC ABG pO2 ABG Hemoglobin ABG Oxyhemoglobin ABG Sodium ABG Potassium ABG Chloride ABG Glucose Carboxyhemoglobin Sodium Potassium Chloride Carbon Dioxide BUN Creatinine 0.6 L Glucose 238 H POC Glucose 287 H Lactic Acid Calcium 8.0 L Phosphorus Magnesium Ferritin Total Bilirubin 1.50 H Direct Bilirubin AST 189 H ALT 208 H Alkaline Phosphatase 659 H Ammonia Lactate Dehydrogenase Troponin T C-Reactive Protein Total Protein 5.1 L Albumin 2.1 L Triglycerides Cholesterol HDL Cholesterol Lipase Arterial Blood Glucose Arterial Blood Ionized Calcium Urine WBC (Auto) Salicylates Acetaminophen Coronavirus (PCR) 03/15/21 03/15/21 03/15/21 05:05 11:37 16:34 WBC RBC Hgb Hct MCV MCH RDW Seg Neutrophils % Monocytes % (Manual) Seg Neutrophils # Monocytes # (Manual) PT INR D-Dimer Heparin Anti-Xa Level ABG pH POC ABG pCO2 POC ABG pO2 ABG Hemoglobin ABG Oxyhemoglobin ABG Sodium ABG Potassium ABG Chloride ABG Glucose Carboxyhemoglobin Sodium Potassium Chloride Carbon Dioxide BUN Creatinine Glucose POC Glucose 238 H 236 H 280 H Lactic Acid Calcium Phosphorus Magnesium Ferritin Total Bilirubin Direct Bilirubin AST ALT Alkaline Phosphatase Ammonia Lactate Dehydrogenase Troponin T C-Reactive Protein Total Protein Albumin Triglycerides Cholesterol HDL Cholesterol Lipase Arterial Blood Glucose Arterial Blood Ionized Calcium Urine WBC (Auto) Salicylates Acetaminophen Coronavirus (PCR) 03/15/21 03/16/21 03/16/21 23:05 04:39 05:00 WBC RBC Hgb Hct MCV MCH RDW Seg Neutrophils % Monocytes % (Manual) Seg Neutrophils # Monocytes # (Manual) PT INR D-Dimer Heparin Anti-Xa Level ABG pH POC ABG pCO2 POC ABG pO2 ABG Hemoglobin ABG Oxyhemoglobin ABG Sodium ABG Potassium ABG Chloride ABG Glucose Carboxyhemoglobin Sodium Potassium Chloride Carbon Dioxide 33 H BUN Creatinine 0.5 L Glucose 195 H POC Glucose 336 H 205 H Lactic Acid Calcium Phosphorus Magnesium Ferritin Total Bilirubin Direct Bilirubin AST ALT Alkaline Phosphatase Ammonia Lactate Dehydrogenase Troponin T C-Reactive Protein Total Protein Albumin Triglycerides Cholesterol HDL Cholesterol Lipase Arterial Blood Glucose Arterial Blood Ionized Calcium Urine WBC (Auto) Salicylates Acetaminophen Coronavirus (PCR) 03/16/21 03/17/21 03/17/21 11:37 04:50 13:37 WBC RBC 2.52 L Hgb 8.6 L Hct 25.0 L MCV 99 H MCH 34 H RDW 18.1 H Seg Neutrophils % Monocytes % (Manual) Seg Neutrophils # Monocytes # (Manual) PT INR D-Dimer Heparin Anti-Xa Level ABG pH POC ABG pCO2 POC ABG pO2 ABG Hemoglobin ABG Oxyhemoglobin ABG Sodium ABG Potassium ABG Chloride ABG Glucose Carboxyhemoglobin Sodium Potassium Chloride Carbon Dioxide BUN Creatinine Glucose POC Glucose 222 H 113 H Lactic Acid Calcium Phosphorus Magnesium Ferritin Total Bilirubin Direct Bilirubin AST ALT Alkaline Phosphatase Ammonia Lactate Dehydrogenase Troponin T C-Reactive Protein Total Protein Albumin Triglycerides Cholesterol HDL Cholesterol Lipase Arterial Blood Glucose Arterial Blood Ionized Calcium Urine WBC (Auto) Salicylates Acetaminophen Coronavirus (PCR) 03/17/21 03/17/21 03/17/21 13:37 13:41 18:29 WBC RBC Hgb Hct MCV MCH RDW Seg Neutrophils % Monocytes % (Manual) Seg Neutrophils # Monocytes # (Manual) PT INR D-Dimer Heparin Anti-Xa Level ABG pH POC ABG pCO2 POC ABG pO2 ABG Hemoglobin ABG Oxyhemoglobin ABG Sodium ABG Potassium ABG Chloride ABG Glucose Carboxyhemoglobin Sodium Potassium 3.5 L Chloride Carbon Dioxide BUN Creatinine 0.4 L Glucose 174 H POC Glucose 176 H 180 H Lactic Acid Calcium Phosphorus Magnesium Ferritin Total Bilirubin Direct Bilirubin AST ALT Alkaline Phosphatase Ammonia Lactate Dehydrogenase Troponin T C-Reactive Protein Total Protein Albumin Triglycerides Cholesterol HDL Cholesterol Lipase Arterial Blood Glucose Arterial Blood Ionized Calcium Urine WBC (Auto) Salicylates Acetaminophen Coronavirus (PCR) 03/17/21 03/18/21 03/18/21 23:06 05:50 07:53 WBC RBC 2.46 L Hgb 7.9 L Hct 24.5 L MCV 100 H MCH RDW 18.0 H Seg Neutrophils % Monocytes % (Manual) Seg Neutrophils # Monocytes # (Manual) PT INR D-Dimer Heparin Anti-Xa Level ABG pH POC ABG pCO2 POC ABG pO2 ABG Hemoglobin ABG Oxyhemoglobin ABG Sodium ABG Potassium ABG Chloride ABG Glucose Carboxyhemoglobin Sodium Potassium Chloride Carbon Dioxide BUN Creatinine Glucose POC Glucose 127 H 108 H Lactic Acid Calcium Phosphorus Magnesium Ferritin Total Bilirubin Direct Bilirubin AST ALT Alkaline Phosphatase Ammonia Lactate Dehydrogenase Troponin T C-Reactive Protein Total Protein Albumin Triglycerides Cholesterol HDL Cholesterol Lipase Arterial Blood Glucose Arterial Blood Ionized Calcium Urine WBC (Auto) Salicylates Acetaminophen Coronavirus (PCR) 03/18/21 03/18/21 03/18/21 07:53 07:53 11:43 WBC RBC Hgb Hct MCV MCH RDW Seg Neutrophils % Monocytes % (Manual) Seg Neutrophils # Monocytes # (Manual) PT INR D-Dimer Heparin Anti-Xa Level ABG pH POC ABG pCO2 POC ABG pO2 ABG Hemoglobin ABG Oxyhemoglobin ABG Sodium ABG Potassium ABG Chloride ABG Glucose Carboxyhemoglobin Sodium Potassium Chloride Carbon Dioxide 31 H BUN Creatinine 0.4 L Glucose POC Glucose 158 H Lactic Acid Calcium 8.3 L Phosphorus Magnesium Ferritin Total Bilirubin Direct Bilirubin AST ALT Alkaline Phosphatase Ammonia Lactate Dehydrogenase Troponin T 0.185 H* C-Reactive Protein Total Protein Albumin Triglycerides Cholesterol HDL Cholesterol Lipase Arterial Blood Glucose Arterial Blood Ionized Calcium Urine WBC (Auto) Salicylates Acetaminophen Coronavirus (PCR) 03/18/21 03/18/21 03/19/21 16:36 18:03 04:48 WBC RBC Hgb Hct MCV MCH RDW Seg Neutrophils % Monocytes % (Manual) Seg Neutrophils # Monocytes # (Manual) PT INR D-Dimer Heparin Anti-Xa Level ABG pH POC ABG pCO2 POC ABG pO2 ABG Hemoglobin ABG Oxyhemoglobin ABG Sodium ABG Potassium ABG Chloride ABG Glucose Carboxyhemoglobin Sodium Potassium Chloride Carbon Dioxide BUN Creatinine Glucose POC Glucose 133 H 130 H 107 H Lactic Acid Calcium Phosphorus Magnesium Ferritin Total Bilirubin Direct Bilirubin AST ALT Alkaline Phosphatase Ammonia Lactate Dehydrogenase Troponin T C-Reactive Protein Total Protein Albumin Triglycerides Cholesterol HDL Cholesterol Lipase Arterial Blood Glucose Arterial Blood Ionized Calcium Urine WBC (Auto) Salicylates Acetaminophen Coronavirus (PCR) 03/19/21 03/19/21 03/20/21 12:47 22:05 13:05 WBC RBC Hgb Hct MCV MCH RDW Seg Neutrophils % Monocytes % (Manual) Seg Neutrophils # Monocytes # (Manual) PT INR D-Dimer Heparin Anti-Xa Level ABG pH POC ABG pCO2 POC ABG pO2 ABG Hemoglobin ABG Oxyhemoglobin ABG Sodium ABG Potassium ABG Chloride ABG Glucose Carboxyhemoglobin Sodium Potassium Chloride Carbon Dioxide BUN Creatinine Glucose POC Glucose 121 H 123 H 116 H Lactic Acid Calcium Phosphorus Magnesium Ferritin Total Bilirubin Direct Bilirubin AST ALT Alkaline Phosphatase Ammonia Lactate Dehydrogenase Troponin T C-Reactive Protein Total Protein Albumin Triglycerides Cholesterol HDL Cholesterol Lipase Arterial Blood Glucose Arterial Blood Ionized Calcium Urine WBC (Auto) Salicylates Acetaminophen Coronavirus (PCR) 03/20/21 03/21/21 03/21/21 16:47 06:46 11:46 WBC RBC Hgb Hct MCV MCH RDW Seg Neutrophils % Monocytes % (Manual) Seg Neutrophils # Monocytes # (Manual) PT INR D-Dimer Heparin Anti-Xa Level ABG pH POC ABG pCO2 POC ABG pO2 ABG Hemoglobin ABG Oxyhemoglobin ABG Sodium ABG Potassium ABG Chloride ABG Glucose Carboxyhemoglobin Sodium Potassium Chloride Carbon Dioxide BUN Creatinine Glucose POC Glucose 112 H 117 H 107 H Lactic Acid Calcium Phosphorus Magnesium Ferritin Total Bilirubin Direct Bilirubin AST ALT Alkaline Phosphatase Ammonia Lactate Dehydrogenase Troponin T C-Reactive Protein Total Protein Albumin Triglycerides Cholesterol HDL Cholesterol Lipase Arterial Blood Glucose Arterial Blood Ionized Calcium Urine WBC (Auto) Salicylates Acetaminophen Coronavirus (PCR) Chest x-ray: image reviewed (improved LLL infiltrate) Allied health notes reviewed: nursing
[2021-03-21 14:18] LABS: Blood Urea Nitrogen 10 mg/dL (9-20); Calcium 7.9 mg/dL (8.4-10.2); Hemolysis Index 54
[2021-03-21 14:20] LABS: BUN/Creatinine Ratio 25
--- NOTE | 2021-03-21 14:51 | Progress Note ---
Assessment and Plan Cultures: SARS CoV2 PCR: Positive MRSA nasal PCR: Positive 03/01/2021 blood culture: No growth 03/01/2021 urine culture: No growth 03/02/2021 tracheal aspirate: Merlyn albicans 03/06/2021 blood culture: no growth 03/06/2021 urine culture: No growth A/P: 51-year-old male with COPD, chronic respiratory failure, CHF, diabetes, DVT/PE, morbid obesity on anticoagulation was admitted to the hospital on 03/01/2021 with altered mental status and shortness of breath: #Bilateral pneumonia: secondary to COVID-19. Completed empiric antibiotics. #Acute hypoxic respiratory failure: Now extubated, on high flow nasal cannula #Morbid obesity #Acute on chronic CHF #Transaminitis: Likely from COVID-19. Elevated LFTs with elevated alkaline phosphatase: RUQ ultrasound did not reveal any evidence of cholelithiasis, cholecystitis or choledocholithiasis. #Acute RLE DVT: On anticoagulation Recs: -Completed 10 days steroids. -Completed Remdesivir -Completed empiric antibiotics -on anticoagulation Infectious disease will sign off. Please call with any questions. Kamar Schrader MD [facility] O: [phone] F: [phone] Subjective Date of service: 03/21/21 Principal diagnosis: Ac hypoxemic resp failure; NSTEMI; ALPHONSO; Sepsis; PNA; CHF; DM II; AMS Interval history: Afebrile, white count 8.6. Remains on high flow nasal cannula. Imaging personally reviewed: Chest x-ray: Notable improvement in infiltrate. Objective - Exam Narrative Exam: Physical exam deferred to reduce risk of transmission of COVID-19. Please refer to primary team's note. - Constitutional Vitals: Vital Signs Temp Pulse Resp BP Pulse Ox 99.0 F 101 H 20 134/68 95 03/21/21 05:35 03/21/21 05:54 03/21/21 05:35 03/21/21 05:54 03/21/21 09:05 Temperature -Last 24 Hours Temperature 99.0 F Temperature 97.3 F - Labs CBC & Chem 7: 03/18/21 07:53 03/21/21 13:30 Labs: Abnormal lab results 03/20/21 03/21/21 03/21/21 Range/Units 16:47 06:46 11:46 Sodium (137-145) mmol/L Potassium (3.6-5.0) mmol/L Chloride (98-107) mmol/L Creatinine (0.8-1.3) mg/dL Glucose (75-100) mg/dL POC Glucose 112 H 117 H 107 H (70-105) mg/dL Calcium (8.4-10.2) mg/dL 03/21/21 Range/Units 13:30 Sodium 136 L D (137-145) mmol/L Potassium 3.2 L (3.6-5.0) mmol/L Chloride 95.9 L (98-107) mmol/L Creatinine 0.4 L (0.8-1.3) mg/dL Glucose 105 H (75-100) mg/dL POC Glucose (70-105) mg/dL Calcium 7.9 L (8.4-10.2) mg/dL
[2021-03-21] MEDS: INSULIN GLARGINE 100 UNITS/ML SUB-Q SCH (22:57)
[2021-03-22] MEDS: INSULIN REGULAR, HUMAN 100 UNITS/1 ML SUB-Q SCH ×3 (00:44→12:25)
[2021-03-22] MEDS: clonazePAM 0.5 MG TAB PO PRN (06:20)
[2021-03-22 07:15] LABS: Blood Urea Nitrogen 11 mg/dL (9-20); Calcium 7.7 mg/dL (8.4-10.2); Hemolysis Index 0
[2021-03-22 07:19] LABS: BUN/Creatinine Ratio 18
--- NOTE | 2021-03-22 09:01 | Progress Note ---
Assessment and Plan Assessment and plan: This is a a 51 year old male admitted for for severe sepsis, respiratory failure, pneumonia and ALPHONSO. PMH: COPD, CHF, DM, DVT/PE, HTN, KAM, obesity, asthma PSx: none reported home meds: albuterol sulfate, advair, HCTZ, atrovent, glucophage, Klor-Con, midodrine, metoprolol, lasix, lantus, coumadin (from audit and home meds reconciliation) Social: unknown A/P Neuro: Metabolic encephalopathy -Resolving -Now extbated Cardio: SR/ST: Acute on Chronic HFpEF (per cards), NSTEMI, h/o HTN, HLD, Prolonged QTc, SVT -Cardiology consulted, appreciate recommendations -midodrine d/c r/t HTN -BP monitoring per protocol -Labetalol PO -Per cardiology: 1. gentle IV diuresis when able 2. Echo 12/13/2020 - EF 55-60%, otherwise technically difficult study. Echo 05/2016 - LV mildly dilated, EF 55-60%, grade II diastolic dysfxn, RV mildly enlarged, normal RV sys fxn, LA mildly dilated, RA mildly dilated, mild-mod AR, mild NJ, mild aortic root dilatation. Resp: Acute on chronic hypoxic respiratory failure, Bilateral PNA, hx COPD, KAM, asthma, ?PE -CCM consulted, appreciate recommendations -MV, wean as tolerated -Intubated 03/01, tube exchange 03/09 OETT 8/0 @ 25 lip -nOW EXTUBATED 03/10 -Continuos SPO2 monitoring -abx with levaquin (03/02-03/07)-DC 03/05 r/t prolonged QTc -03/01 CT chest shows several pulmonary nodules within Right lung measuring 6-8 mm, increased interstitial prominence -? f/u outpt with PCP/pulmanology -03/10 CXR reviewed GI: Transaminitis, TF -GI consulted, appreciate recommendations -Trend LFTs -RUQ US shows no evidence of cholelithiasis, cholecytitis or choledocholithisis -CT abd/pelvis showed fatty infiltration of liver -Ntr consult for TF -PPI -BR [place] -last BM 03/06 -24 hr net (-) 225 : ALPHONSO (stable/resolved) -Nephrology consulted, appreciate recommendations -Pt was on HD at recent hospitalization at OSH -Renally dose mediations -Avoid nephrotoxic medications -Strict I&Os -Renal US shows no significant abnormality -Daily weights -Replete electrolytes -Trend BMP -s/p lasix x 2, prn hydral -Trial lasix again today Heme: DVT-R posterior tibial vein, h/o LLE DVT (December 2019)/ PE (failed Xa inhibitors per cards; on home coumadin) -evidenced on BLE Doppler US -Heparin gtt d/c to lovenox subq (03/09) -SCDs while in bed -Per cards: Eventually plan to transition to Coumadin ID: Severe Sepsis, B PNA, COVID 19 infection -s/p abx therapy (azithromycin 03/01-03/02, aztreonam 03/02, cefepime 03/01-03/02, levaquin 03/02-03/05, flagyl 03/01-03/02, vancomycin 03/01-03/02) -VAP bundle -MRSA (+) nares -COVID 19 PCR (+) -Decadron for 10 days (03/06-03/15) -Remdesivir (03/06-03/10) -Contact/Droplet precautions -03/01 BCx2 with NGTD, UC with NGTD, sputum culture normal sole -03/06 BC NGTD -Prone if needed -Vit C/D/Zinc Endo: DM -SSI, lantus (titrate as needed) -Accuchecks q6 -Avoid hypoglycemia FEN: Hypokalemia, Hypomagenesmia- Replace lines: condom cath, PIV, RAHDA Disposition: ICU Full code The high probability of a clinically significant, sudden or life threatening deterioration of the [multi] system(s) required my full and direct attention, intervention and personal management. The aggregate critical care time was [40] minutes. This time is in addition to time spent performing reported procedures but includes the following: [x] Data Review and interpretation [x] Patient assessment and monitoring of vital signs [x] Documentation [x] Medication orders and management History Interval history: This is a 51-year-old -[place] male with COPD with chronic respiratory failure, CHFpEF, diabetes mellitus, DVT/PE on coumadin and hypertension who p resented to [facility] via EMS for AMS and hypoxia. On arrival of EMS oxygen saturation was about 88% on room air, blood pressure was said to be about 88/50 mmHg. Work-up in the emergency room reveals leukocytosis of 12.7, hemoglobin of 9.1 and hematocrit of 27.7, sodium of 132, lactic acid of 2.90, elevated liver enzymes and elevated troponin at 0.493. A CT of the chest showed findings concerning for atelectasis and or infiltrate, CT of the head was unremarkable. Patient was in severe respiratory distress upon arrival in the emergency room and subsequently intubated. Patient was admitted to the hospitalist service with consults to cardiology, CCM, GI, and neprohology for severe sepsis, respiratory failure, pneumonia and ALPHONSO. Of note patient was admitted to [facility] from 12/12-01/14 and was on HD during that admit. 03/03/21: Patient remains intubated, continue on heparin drip, monitor H&H and BMP. Continue empiric antibiotics, ID following. Follow ammonia level and LFT. According to cardiology patient indeed had preserved EF during his recent admission to [place]. Plan to repeat 2D echo. Critical care following, wean off from vent as tolerated. 03/04: RN reported blood y secretions in OETT and clots, heparin gtt stopped and B LE US obtained which shows DVT, abx deescalated, heparin gtt restarted. 03/05: RN reported vomiting x1, promithazine x1 given, Qtc at 599 on EKG. AM labs pending. tmax 102.2, reculture with next spike, COVID 19 PCR. abx stopped re prolonged qtc and received CAP coverage. 03/06: Reported high TF residual, COVID PCR pending. Cr better today. tmax 100.7 03/07: radha placed yesterday, started on remdesivir re positive covid. ID consulted yesterday. SHERYL overnight. 03/08: SHERYL reported overnight. Patient is now hypertensive and midodrine has been held. Will now place on low dose antihtn and prn hydral. 03/09: Patient reportedly through tube and OETT was exchanged, patient was given paralytic for exchange. No acute events reported overnight. Patient noted to be hypertensive and we will trial Lasix again today. 03/10: PSV trial today. fentayl was stopped. BP maintaining. SHERYL overnight. 03/11: Patient was extuabted, awaiting Speech therapy, discussed with nursing staff at bedside, considering Hypertensive urgency, will do a bedside swallow eval and give oral meds if passed. Continue aspiration precautions. The patient has hx of Asthma, continue neb treatment. 03/12: Patient remains in ICU care secondary to SVT and unstable hemodynamics. Cardiology reevaluated patient was given adenosine and started on amnio drip. Still awaiting speech therapy evaluation although considering her current condition we will keep the patient n.p.o. Case discussed with recreational leader and vp software. Monitor electrolytes and correct as needed. 03/13: Patient this morning remains in normal sinus rhythm following the adenosine and amnio drip which is still going the latter I mean. I will start the patient on Lasix for 3 days and monitor her renal function. Patient is already on high dose of dexamethasone considering his history of bronchospasm disease. We will repeat a pulmonary evaluation we will correct electrolytes especially with the Lasix. CCT 35 pLAN DISCUSSED WITH THE PATIENT AND NURSE 03/14: Patient unfortunately is declining continues on high flow -70% intermittent altered mental status refusing all treatment plan. Psych saw the patient recommended Geodon as needed. Will transition some medications to IV. Continue encouraging patient to use BiPAP. Continue nebulizer treatment and steroid therapy. Pulmonary and cardiology input also appreciated. 03/15: Patient seen and examined, continue to wean oxygen flow as tolerated, Electrolytes replacement protocol inplace, LFT still elevated but trending down some. Again counselling provided to the patient about compliance. Adjust insulin. 03/16: Patient down to 50% FiO2 was saturating 92%. [facility] transfer to [facility]. Clinically he is showing some improvement. Continue restraints for supportive care continue to monitor for intermittent delirium. 03/17: Patient still with intermittent delirium sometimes refusing medication. Restraints has been renewed for safety as he did take off his oxygen yesterday and desatted to the 70s. His saturation is back to 90-92% with FiO2 of 50% of the high flow. Continue supportive care pulmonary input and ID input noted. 03/18: Continue full supportive care, ideally prone if able, called to update family, continue supportive care, patient treated with -IV/PO Dexamethasone 10 mg daily x 10 days, higher dose due to morbid obesity. Ended 03/15/2021 -Completed Remdesivir still high risk due to hypoxia treatment being complicated by the delirium 03/19; patient is on 30 L of high flow oxygen with FiO2 of 96%. Patient completed remdesivir and Decadron. Patient is still high risk because of hypoxia. Patient has right posterior tibial vein occlusive thrombus and on therapeutic Lovenox. 03/20; on 25 L of high flow oxygen with FiO2 of 45%. Completed Decadron and remdesivir. Patient has DVT and on therapeutic Lovenox. Discussed with case management for possible LTAC placement. 03/21; patient is on 25 L of high flow oxygen. Completed remdesivir and Decadron. Patient did have any urine output and we are going to check bladder scan and give him Lasix 80 mg IV 1 times. Patient is on p.o. Lasix 80 mg daily. Echo was done and was unremarkable. Case management is working to find LTAC place for him. Patient accepted by [facility] pending authorization. 03/22; patient is on 20 L of high flow oxygen with FiO2 of 60%. Patient has severe hypokalemia and was given IV potassium and will check potassium level and repleted according to electrolyte replacement protocol. Patient accepted by [facility] pending authorization. History Interval history: Patient was seen and evaluated this morning Patient was on 20 L of high flow oxygen with FiO2 of 60 % Patient was alert and oriented Hospitalist Physical - Physical exam Narrative exam: Patient is on 25 L high flow oxygen with FiO2 of 96% The patient is morbidly obese. Vital signs as documented. Head exam is unremarkable. No scleral icterus . Neck is without jugular venous distension, thyromegaly, or carotid bruits. Lungs decreased air entry. Cardiac exam reveals regular rate and Rhythm. Abdominal exam reveals normal bowel sounds, nontender, no organomegaly. Extremities bilateral lower extremity edema. POEM WRITER: Alert and oriented x3. Moves extremities. - Constitutional Vitals: Temp Pulse Resp BP Pulse Ox 98.0 F 109 H 24 106/68 88 03/22/21 06:19 03/22/21 06:20 03/22/21 06:19 03/22/21 06:19 03/22/21 06:19 General appearance: Present: no acute distress, well-nourished, obese, other (sedated) HEART Score - HEART Score Troponin: Troponin T 0.185 ng/mL (0.00-0.029) H* 03/18/21 07:53 Results - Labs CBC & Chem 7: 03/18/21 07:53 03/22/21 06:30 Labs: Laboratory Last Values WBC 8.6 K/mm3 (4.5-11.0) 03/18/21 07:53 RBC 2.46 M/mm3 (3.65-5.03) L 03/18/21 07:53 Hgb 7.9 gm/dl (11.8-15.2) L 03/18/21 07:53 Hct 24.5 % (35.5-45.6) L 03/18/21 07:53 MCV 100 fl (84-94) H 03/18/21 07:53 MCH 32 pg (28-32) 03/18/21 07:53 MCHC 32 % (32-34) 03/18/21 07:53 RDW 18.0 % (13.2-15.2) H 03/18/21 07:53 Plt Count 294 K/mm3 (140-440) 03/18/21 07:53 Lymph % (Auto) 22.4 % (13.4-35.0) 03/06/21 05:20 [place] % (Auto) 4.5 % (0.0-7.3) 03/06/21 05:20 Eos % (Auto) 0.2 % (0.0-4.3) 03/06/21 05:20 Baso % (Auto) 0.3 % (0.0-1.8) 03/06/21 05:20 Lymph # (Auto) 3.4 K/mm3 (1.2-5.4) 03/06/21 05:20 [place] # (Auto) 0.7 K/mm3 (0.0-0.8) 03/06/21 05:20 Eos # (Auto) 0.0 K/mm3 (0.0-0.4) 03/06/21 05:20 Baso # (Auto) 0.1 K/mm3 (0.0-0.1) 03/06/21 05:20 Add Manual Diff Complete 03/01/21 19:21 Total Counted 100 03/01/21 19:21 Seg Neutrophils % 72.6 % (40.0-70.0) H 03/06/21 05:20 Seg Neuts % (Manual) 49.0 % (40.0-70.0) 03/01/21 19:21 Lymphocytes % (Manual) 32.0 % (13.4-35.0) 03/01/21 19:21 Monocytes % (Manual) 17.0 % (0.0-7.3) H 03/01/21 19:21 Eosinophils % (Manual) 1.0 % (0.0-4.3) 03/01/21 19:21 Basophils % (Manual) 1.0 % (0.0-1.8) 03/01/21 19:21 Nucleated RBC % Not Reportable 03/01/21 19:21 Seg Neutrophils # 11.1 K/mm3 (1.8-7.7) H 03/06/21 05:20 Seg Neutrophils # Man 6.2 K/mm3 (1.8-7.7) 03/01/21 19:21 Band Neutrophils # 0.0 K/mm3 03/01/21 19:21 Lymphocytes # (Manual) 4.1 K/mm3 (1.2-5.4) 03/01/21 19:21 Abs React Lymphs (Man) 0.0 K/mm3 03/01/21 19:21 Monocytes # (Manual) 2.2 K/mm3 (0.0-0.8) H 03/01/21 19:21 Eosinophils # (Manual) 0.1 K/mm3 (0.0-0.4) 03/01/21 19:21 Basophils # (Manual) 0.1 K/mm3 (0.0-0.1) 03/01/21 19:21 Metamyelocytes # 0.0 K/mm3 03/01/21 19:21 Myelocytes # 0.0 K/mm3 03/01/21 19:21 Promyelocytes # 0.0 K/mm3 03/01/21 19:21 Blast Cells # 0.0 K/mm3 03/01/21 19:21 WBC Morphology Not Reportable 03/01/21 19:21 Hypersegmented Neuts Not Reportable 03/01/21 19:21 Hyposegmented Neuts Not Reportable 03/01/21 19:21 Hypogranular Neuts Not Reportable 03/01/21 19:21 Smudge Cells Not Reportable 03/01/21 19:21 Toxic Granulation Not Reportable 03/01/21 19:21 Toxic Vacuolation Not Reportable 03/01/21 19:21 Dohle Bodies Not Reportable 03/01/21 19:21 Pelger-Huet Anomaly Not Reportable 03/01/21 19:21 Katherine Rods Not Reportable 03/01/21 19:21 Platelet Estimate Not Reportable 03/01/21 19:21 Clumped Platelets Not Reportable 03/01/21 19:21 Plt Clumps, EDTA Not Reportable 03/01/21 19:21 Large Platelets Not Reportable 03/01/21 19:21 Giant Platelets Not Reportable 03/01/21 19:21 Platelet Satelliting Not Reportable 03/01/21 19:21 Plt Morphology Comment Not Reportable 03/01/21 19:21 RBC Morphology Not Reportable 03/01/21 19:21 Dimorphic RBCs Not Reportable 03/01/21 19:21 Polychromasia Not Reportable 03/01/21 19:21 Hypochromasia Not Reportable 03/01/21 19:21 Poikilocytosis Not Reportable 03/01/21 19:21 Anisocytosis Rare 03/01/21 19:21 Microcytosis Not Reportable 03/01/21 19:21 Macrocytosis Not Reportable 03/01/21 19:21 Spherocytes Not Reportable 03/01/21 19:21 Pappenheimer Bodies Not Reportable 03/01/21 19:21 Sickle Cells Not Reportable 03/01/21 19:21 Target Cells Not Reportable 03/01/21 19:21 Tear Drop Cells Not Reportable 03/01/21 19:21 Ovalocytes Not Reportable 03/01/21 19:21 Helmet Cells Not Reportable 03/01/21 19:21 [place] Bodies Not Reportable 03/01/21 19:21 [place] Rings Not Reportable 03/01/21 19:21 Dusty Cells Not Reportable 03/01/21 19:21 Bite Cells Not Reportable 03/01/21 19:21 Crenated Cell Not Reportable 03/01/21 19:21 Elliptocytes Not Reportable 03/01/21 19:21 Acanthocytes (Spur) Not Reportable 03/01/21 19:21 Rouleaux Not Reportable 03/01/21 19:21 Hemoglobin C Crystals Not Reportable 03/01/21 19:21 Schistocytes Few 03/01/21 19:21 Malaria parasites Not Reportable 03/01/21 19:21 Henry Bodies Not Reportable 03/01/21 19:21 Hem Pathologist Commnt No 03/01/21 19:21 PT 15.6 Sec. (12.2-14.9) H 03/04/21 10:17 INR 1.18 (0.87-1.13) H 03/04/21 10:17 APTT 36.6 Sec. (24.2-36.6) 03/02/21 16:28 D-Dimer 475.91 ng/mlDDU (0-234) H 03/14/21 03:40 Heparin Anti-Xa Level 0.64 U.I./ml (0.3-0.7) 03/08/21 10:30 ABG pH 7.487 (7.320-7.450) H 03/10/21 12:33 POC ABG pCO2 40.4 mmHg (32.0-48.0) 03/10/21 12:33 POC ABG pO2 62.1 mmHg (83-108) L 03/10/21 12:33 POC ABG HCO3 29.9 03/10/21 12:33 ABG O2 Saturation 90.2 (0-100) 03/10/21 12:33 POC ABG Base Excess 6.0 03/10/21 12:33 ABG Hemoglobin 9.4 (12.0-17.5) L 03/10/21 12:33 ABG Oxyhemoglobin 89.7 (94-98) L 03/10/21 12:33 ABG Methemoglobin 0.3 (0.0-1.5) 03/10/21 12:33 ABG Sodium 138.7 mmol/L (136.0-145.0) 03/10/21 12:33 ABG Potassium 3.7 mmol/L (3.40-4.50) 03/10/21 12:33 ABG Chloride 104.0 mmol/L (98-107) 03/10/21 12:33 ABG Glucose 350 mg/dL (65-95) H 03/10/21 12:33 Carboxyhemoglobin 0.2 (0.5-1.5) L 03/10/21 12:33 FiO2 % 35.0 03/10/21 12:33 Sodium 139 mmol/L (137-145) 03/22/21 06:30 Potassium 2.7 mmol/L (3.6-5.0) L* 03/22/21 06:30 Chloride 101.1 mmol/L (98-107) 03/22/21 06:30 Carbon Dioxide 29 mmol/L (22-30) 03/22/21 06:30 Anion Gap 12 mmol/L 03/22/21 06:30 BUN 11 mg/dL (9-20) 03/22/21 06:30 Creatinine 0.6 mg/dL (0.8-1.3) L 03/22/21 06:30 Estimated GFR > 60 ml/min 03/22/21 06:30 BUN/Creatinine Ratio 18 % 03/22/21 06:30 Glucose 88 mg/dL (75-100) 03/22/21 06:30 POC Glucose 85 mg/dL (70-105) 03/22/21 07:55 Lactic Acid 1.70 mmol/L (0.7-2.0) 03/04/21 10:17 Calcium 7.7 mg/dL (8.4-10.2) L 03/22/21 06:30 Phosphorus 2.60 mg/dL (2.5-4.5) 03/16/21 05:00 Magnesium 1.80 mg/dL (1.7-2.3) 03/16/21 05:00 Ferritin 3103.0 ng/mL (30.0-300.0) H 03/14/21 03:40 Total Bilirubin 1.50 mg/dL (0.1-1.2) H 03/15/21 05:00 Direct Bilirubin 0.6 mg/dL (0-0.2) H 03/04/21 05:26 Indirect Bilirubin 0.2 mg/dL 03/04/21 05:26 AST 189 units/L (5-40) H 03/15/21 05:00 ALT 208 units/L (7-56) H 03/15/21 05:00 Alkaline Phosphatase 659 units/L (35-129) H 03/15/21 05:00 Ammonia 71.0 umol/L (25-60) H 03/01/21 19:21 Lactate Dehydrogenase 588 units/L (91-180) H 03/14/21 03:40 Troponin T 0.185 ng/mL (0.00-0.029) H* 03/18/21 07:53 C-Reactive Protein 4.00 mg/dL (0.00-1.30) H 03/14/21 03:40 Total Protein 5.1 g/dL (6.3-8.2) L 03/15/21 05:00 Albumin 2.1 g/dL (3.9-5) L 03/15/21 05:00 Albumin/Globulin Ratio 0.7 % 03/15/21 05:00 Triglycerides 400 mg/dL (2-149) H 03/01/21 19:21 Cholesterol 232 mg/dL (50-199) H 03/01/21 19: LDL Cholesterol Direct 130 mg/dL (50-130) 03/01/21: HDL Cholesterol 22 mg/dL (40-59) L 03/01/21 19:21 Cholesterol/HDL Ratio 10.54 % 03/01/21 19:21 Lipase 78 units/L (13-60) H 03/04/21 10:17 Procalcitonin 1.18 ng/mL (<0.15) 03/08/21 06:10 TSH 1.840 mlU/mL (0.270-4.200) 03/03/21 04:06 Arterial Blood Glucose 350 mg/dL (65-95) H 03/10/21 12:33 Arterial Blood Ionized Calcium 4.6 mg/dL (4.6-5.3) 03/10/21 12:33 Urine Color [place] (Yellow) 03/21/21 Unknown Urine Turbidity Clear (Clear) 03/21/21 Unknown Urine pH 5.0 (5.0-7.0) 03/21/21 Unknown Ur Specific [place] 1.019 (1.003-1.030) 03/21/21 Unknown Urine Protein 100 mg/dl mg/dL (Negative) 03/21/21 Unknown Urine Glucose (UA) Neg mg/dL (Negative) 03/21/21 Unknown Urine Ketones Neg mg/dL (Negative) 03/21/21 Unknown Urine Blood Neg (Negative) 03/21/21 Unknown Urine Nitrite Neg (Negative) 03/21/21 Unknown Urine Bilirubin Neg (Negative) 03/21/21 Unknown Urine Urobilinogen 4.0 mg/dL (<2.0) 03/21/21 Unknown Ur Leukocyte Esterase Neg (Negative) 03/21/21 Unknown Urine WBC (Auto) 4.0 /HPF (0.0-6.0) 03/21/21 Unknown Urine RBC (Auto) 2.0 /HPF (0.0-6.0) 03/21/21 Unknown U Epithel Cells (Auto) 5.0 /HPF (0-13.0) 03/06/21 14:34 Urine Bacteria (Auto) 2+ /HPF (Negative) 03/06/21 14:34 Hyaline Casts 22 /LPF 03/21/21 Unknown Urine Mucus 1+ /HPF 03/21/21 Unknown Urine Yeast (Budding) Few /HPF 03/01/21 21:40 Urine Sperm 3+ /HPF (TECHNICAL APPLICATIONS SCIENTIST) 03/06/21 14:34 Nasal Screen MRSA (PCR) Positive (Negative) 03/02/21 05:00 Salicylates < 0.3 mg/dL (2.8-20.0) L 03/01/21 19:21 Urine Opiates Screen Positive 03/01/21 21:40 Urine Methadone Screen Negative 03/01/21 21:40 Acetaminophen 5.0 ug/mL (10.0-30.0) L 03/01/21 19:21 Ur Barbiturates Screen Negative 03/01/21 21:40 Ur Phencyclidine Scrn Negative 03/01/21 21:40 Ur Amphetamines Screen Negative 03/01/21 21:40 U Benzodiazepines Scrn Negative 03/01/21 21:40 Urine Cocaine Screen Negative 03/01/21 21:40 U Marijuana (THC) Screen Negative 03/01/21 21:40 Drugs of Abuse Note Disclamer 03/01/21 21:40 KARLA Screen Negative (Negative) 03/03/21 04:06 Coronavirus (PCR) Positive (Negative) A 03/21/21 10:30 Blood Type O POSITIVE 03/01/21 19:21 Antibody Screen Negative 03/01/21 19:21 Vilchis/IV: Voiding Method Incontinent Active Medications - Current Medications Current Medications: Generic Name Dose Route Start Last Admin Trade Name Freq PRN Reason Stop Dose Admin Acetaminophen 650 mg 03/20/21 23:43 03/21/21 05:54 Acetaminophen 325 Mg Tab PO 650 mg Q4H PRN Administration Pain, Mild (1-3) Albuterol 2 puff 03/20/21 23:05 Albuterol 8.5 Gm Mdi Inhalation IH Q4HRT PRN Shortness Of Breath Lipase/Protease/Amylase 1 each 03/03/21 10:53 Lipase 10,500/Protease 25,000/Amylase 43,750 (Units) Dr Gutierrez FEEDTUBE PRN PRN For Clogged Feeding Tube Ascorbic Acid 500 mg 03/06/21 22:00 03/21/21 22:58 Ascorbic Acid 500 Mg Tab PO 500 mg BID KYLE Administration Aspirin 81 mg 03/04/21 10:00 03/21/21 11:05 Aspirin 81 Mg Tab Chew PO 81 mg QDAY KYLE Administration Cholecalciferol 5,000 unit 03/17/21 11:00 03/21/21 11:04 Cholecalciferol (Vit D3) 5,000 Unit Tab PO 5,000 unit QDAY KYLE Administration Clonazepam 0.5 mg 03/16/21 12:43 03/22/21 06:20 Clonazepam 0.5 Mg Tab PO 0.5 mg BID PRN Administration Anxiety Dextrose 50 ml 03/02/21 11:38 Dextrose 50% In Water (25gm) 50 Ml Syringe IV Q30MIN PRN Hypoglycemia Protocol Diltiazem HCl 90 mg 03/20/21 12:00 03/22/21 06:20 Diltiazem 90 Mg Tab PO 90 mg Q6HR KYLE Administration Enoxaparin Sodium 130 mg 03/09/21 11:00 03/21/21 22:50 Enoxaparin 150 Mg/1 Ml Inj SUB-Q 130 mg Q12HR KYLE Administration Protocol Famotidine 20 mg 03/04/21 10:00 03/21/21 22:58 Famotidine 20 Mg Tab PO 20 mg BID KYLE Administration Furosemide 80 mg 03/17/21 11:00 03/21/21 11:05 Furosemide 40 Mg Tab PO 80 mg QDAY KYLE Administration Guaifenesin 600 mg 03/11/21 22:00 03/21/21 22:59 Guaifenesin Er 600 Mg Tab PO 600 mg BID KYLE Administration Hydralazine HCl 10 mg 03/09/21 08:21 03/11/21 22:03 Hydralazine 20 Mg/1 Ml Inj IV 10 mg Q4H PRN Administration Hypertension Hydrophilic Ointment 1 applic 03/02/21 15:42 Lip Therapy Vaseline TP Q2H PRN Dry Lips Sodium Chloride 1,000 mls @ 1 mls/hr 03/06/21 18:11 Nacl 0.9% 500 Ml IV DIRECT PRN ARTERIAL LINE FLUSH Potassium Chloride 10 meq in 100 mls @ 100 mls/hr 03/22/21 09:00 Kcl 10meq/100ml IV 03/22/21 12:59 Q1H KYLE Insulin Glargine 30 units 03/16/21 22:00 03/21/21 22:57 Insulin Glargine 100 Units/Ml SUB-Q 30 units QHS KYLE Administration Insulin Human Regular 0 units 03/10/21 18:00 03/22/21 06:34 Insulin Regular, Human 100 Units/1 Ml SUB-Q Not Given Q6HR [facility] Protocol Magnesium Hydroxide 30 ml 03/02/21 00:18 Magnesium Hydroxide (Mom) Oral Liqd Udc PO Q4H PRN Constipation Metoprolol Tartrate 5 mg 03/12/21 14:15 03/12/21 14:40 Metoprolol Tartrate 5 Mg/5 Ml Inj IV 5 mg Q6HR PRN Administration Tachyarrhythmias Miscellaneous Medication 145 mcg 03/17/21 10:00 Linaclotide [Linzess] PO QDAY [facility] Morphine Sulfate 2 mg 03/20/21 23:44 Morphine 2 Mg/1 Ml Inj IV Q4H PRN Pain, Moderate (4-6) Multi-Ingred Cream/Lotion/Oil/Oint 1 applic 03/02/21 15:42 Mineral Oil/Petrolatum, White Ophth Oint 3.5 Gm OU Q4HR PRN Dry Eye(s) Multivitamins/Minerals 1 each 03/03/21 22:00 03/21/21 22:58 Calcium Carb/Vit D3/Minerals 600 Mg/800 Units Tab PO 1 each BID KYLE Administration Pregabalin 50 mg 03/17/21 14:00 03/21/21 22:59 Pregabalin 50 Mg Cap PO 50 mg TID KYLE Administration Senna/Docusate Sodium 1 tab 03/02/21 22:00 03/21/21 22:58 Sennosides/Docusate Sodium 8.6/50 Mg Tab FEEDTUBE 1 tab BID KYLE Administration Simple Syrup 15 ml 03/03/21 10:53 Simple Syrup 15 Ml FEEDTUBE PRN PRN Hypoglycemia Simple Syrup 30 ml 03/03/21 10:53 Simple Syrup 15 Ml FEEDTUBE PRN PRN Hypoglycemia Sodium Bicarbonate 325 mg 03/03/21 10:53 Sodium Bicarbonate 325 Mg Tab FEEDTUBE PRN PRN For Clogged Feeding Tube Sodium Chloride 10 ml 03/02/21 10:00 03/21/21 23:00 Sodium Chloride 0.9% 10 Ml Flush Syringe IV 10 ml BID KYLE Administration Sodium Chloride 10 ml 03/02/21 00:18 Sodium Chloride 0.9% 10 Ml Flush Syringe IV PRN PRN LINE FLUSH Zinc Sulfate 220 mg 03/06/21 16:00 03/21/21 22:59 Zinc Sulfate 220 Mg Cap PO 220 mg BID KYLE Administration Ziprasidone 20 mg 03/14/21 11:18 Ziprasidone Mesylate 20 Mg Vial IM Q6H PRN Agitation Zolpidem Tartrate 5 mg 03/13/21 17:55 03/18/21 00:50 Zolpidem 5 Mg Tab PO 5 mg QHS PRN Administration Sleep Nutrition/Malnutrition Assess - Dietary Evaluation Nutrition/Malnutrition Findings: Nutrition Notes Start: 03/02/21 10:10 Freq: Status: Active Protocol: Document 03/21/21 14:35 (Rec: 03/21/21 14:38 [email or web address]) Nutrition Notes Initial or Follow up Reassessment Current Diagnosis Acute Kidney Injury,COPD, Diabetes,Sepsis,Hypertension, Heart Failure,Respiratory Failure Other Pertinent Diagnosis pneu, AMS, COVID(+) Current Diet Cardiac, Consistent CHO Labs/Tests Na 136 K 3.2 Pertinent Medications Lasix Height 5 ft 10 in Weight 131 kg [place] Body Weight (kg) 75.45 BMI 41.4 Weight Status Morbidly Obese Subjective/Other Information Per RN, pt continues to eat 25 % of meals. Pt may need TF to help meet needs. Percent of energy/protein needs met: 27%/11% Burn Absent Trauma Absent Current % PO Poor (25-49%) Minimum of two criteria No Fluid Accumulation Mild (non-severe) #1 Nutrition Diagnosis Inadequate oral intake Diagnosis Progress(for reassessment Continues documentation) Is patient on ventilator? No Is Patient Ambulatory and/or Out of Bed No REE-([facility]-confined to bed) 2614.728 Kcal/Kg value to use for calculation 16 Approximate Energy Requirements Using 2096 kcal/Kg Calculation Used for Recommendations Kcal/kg Additional Notes Pro needs up to 2.5g/klg IBW: up to 189g/day Fluid needs 1ml/kcal Nutrition Intervention Change Diet Order: continue Nutrition Support: Recommend supplemental TF Add Supplement/Snack (indicate name/kcal Glucerna daily /protein ) Provides kCal: 220 Provides Protein (gm) 10 Goal #1 PO tolerance Goal #2 PO intake to meet at least 75% energy and pro needs Anticipated Discharge Needs: Cardiac, consistent CHO Follow-Up By: 03/25/21 Additional Comments F/u: intakes and ONS tolerance
[2021-03-22] MEDS: ZINC SULFATE 220 MG CAP PO SCH ×3 (10:21→12:25)
[2021-03-22] MEDS: ASPIRIN 81 MG TAB CHEW PO SCH ×3 (10:21→12:22)
[2021-03-22] MEDS: CHOLECALCIFEROL (VIT D3) 5,000 UNIT TAB PO SCH ×3 (10:21→12:24)
[2021-03-22] MEDS: FAMOTIDINE 20 MG TAB PO SCH ×3 (10:21→12:23)
[2021-03-22] MEDS: ASCORBIC ACID 500 MG TAB PO SCH ×3 (10:21→12:24)
[2021-03-22] MEDS: FUROSEMIDE 40 MG TAB PO SCH ×3 (10:21→12:23)
[2021-03-22] MEDS: CALCIUM CARB/VIT D3/MINERALS 600 MG/800 UNITS TAB PO SCH ×3 (10:21→12:23)
[2021-03-22] MEDS: guaiFENesin ER 600 MG TAB PO SCH ×3 (10:21→12:23)
[2021-03-22] MEDS: SENNOSIDES/DOCUSATE SODIUM 8.6/50 MG TAB FEEDTUBE SCH ×3 (10:21→12:24)
[2021-03-22] MEDS: PREGABALIN 50 MG CAP PO SCH ×4 (10:22→16:09)
[2021-03-22] MEDS: ENOXAPARIN 150 MG/1 ML INJ SUB-Q SCH (10:22)
--- NOTE | 2021-03-22 10:24 | Progress Note ---
Subjective Principal diagnosis: Ac hypoxemic resp failure; NSTEMI; ALPHONSO; Sepsis; PNA; CHF; DM II; AMS Interval history: Patient was seen today for follow-up of multiple renal related issues No complaints of any chest pain pressure or shortness of breath Interdisciplinary notes that also reviewed Events of 24 hours vitals labs intake output medications were reviewed Past medical history: Reviewed Family history: Reviewed Social history: Reviewed Allergies: Reviewed Physical examination: Vitals: Reviewed HEENT: No pallor or icterus oral mucosa moist Neck: Supple no JVD no thyromegaly Chest: Bilateral clear to auscultation anteriorly Heart: Regular rate and rhythm S1-S2 heard no S3-S4 Abdomen: Soft nontender no voluntary guarding rigidity rebound Extremity: Dry skin less than 1+ peripheral edema Psychiatric: No evidence of agitation and aggression noted Dermatology: No petechial rashes Labs and x-rays: Reviewed from today Assessment and plan #Hypokalemia please replace and follow to keep the potassium around 4 Currently on diuretics, please consider initiation of spironolactone as well Patient has been ordered to receive potassium Magnesium level has also been ordered Recommend checking magnesium level periodically as well Patient is stable from renal standpoint otherwise will monitor when necessary Objective - Vital Signs Vital signs: Vital Signs - 12hr 03/22/21 03/22/21 03/22/21 00:29 00:44 03:10 Temperature Pulse Rate 101 H Respiratory Rate Blood Pressure O2 Sat by Pulse 94 94 Oximetry 03/22/21 03/22/21 03/22/21 06:19 06:20 08:00 Temperature 98.0 F Pulse Rate 106 H 109 H Respiratory 24 Rate Blood Pressure 106/68 O2 Sat by Pulse 88 96 Oximetry - Lab 03/18/21 07:53 03/22/21 06:30 Most recent lab results ABG pH 7.487 (7.320-7.450) H 03/10/21 12:33 ABG O2 Saturation 90.2 (0-100) 03/10/21 12:33 Calcium 7.7 mg/dL (8.4-10.2) L 03/22/21 06:30 Phosphorus 2.60 mg/dL (2.5-4.5) 03/16/21 05:00 Magnesium 1.80 mg/dL (1.7-2.3) 03/16/21 05:00 Medications & Allergies - Medications Allergies/Adverse Reactions: Allergies Penicillins Allergy (Verified 03/30/19 10:45) Rash Home Medications: Home Medications Medication Instructions Recorded Confirmed Last Taken Type Albuterol Sulfate [Proventil Hfa] 2.5 gm IH BID PRN 03/16/21 03/16/21 Unknown History Cholecalciferol Vit D3 [Vitamin D3 1,000 unit PO QDAY 03/16/21 03/16/21 Unknown History 1,000 UNIT TAB] Furosemide [Lasix TAB] 80 mg PO QDAY 03/16/21 03/16/21 Unknown History Insulin Glargine [Lantus VIAL] 25 unit SQ BID 03/16/21 03/16/21 Unknown History Linaclotide [Linzess] 145 mcg PO QDAY 03/16/21 03/16/21 Unknown History Pregabalin [Lyrica] 50 mg PO TID 03/16/21 03/16/21 Unknown History Warfarin [Coumadin] 6 mg PO 4XW 03/16/21 03/16/21 Unknown History Warfarin [Coumadin] 9 mg PO 3XW 03/16/21 03/16/21 Unknown History clonazePAM [ Klonopin] 0.5 mg PO BID PRN 03/16/21 03/16/21 Unknown History predniSONE [Deltasone] 15 mg PO QDAY 03/16/21 03/16/21 Unknown History Active Medications: Generic Name Dose Route Start Last Admin Trade Name Freq PRN Reason Stop Dose Admin Acetaminophen 650 mg 03/20/21 23:43 03/21/21 05:54 Acetaminophen 325 Mg Tab PO 650 mg Q4H PRN Administration Pain, Mild (1-3) Albuterol 2 puff 03/20/21 23:05 Albuterol 8.5 Gm Mdi Inhalation IH Q4HRT PRN Shortness Of Breath Lipase/Protease/Amylase 1 each 03/03/21 10:53 Lipase 10,500/Protease 25,000/Amylase 43,750 (Units) Dr Gutierrez FEEDTUBE PRN PRN For Clogged Feeding Tube Ascorbic Acid 500 mg 03/06/21 22:00 03/22/21 10:21 Ascorbic Acid 500 Mg Tab PO 500 mg BID KYLE Administration Aspirin 81 mg 03/04/21 10:00 03/22/21 10:21 Aspirin 81 Mg Tab Chew PO 81 mg QDAY KYLE Administration Cholecalciferol 5,000 unit 03/17/21 11:00 03/22/21 10:21 Cholecalciferol (Vit D3) 5,000 Unit Tab PO 5,000 unit QDAY KYLE Administration Clonazepam 0.5 mg 03/16/21 12:43 03/22/21 06:20 Clonazepam 0.5 Mg Tab PO 0.5 mg BID PRN Administration Anxiety Dextrose 50 ml 03/02/21 11:38 Dextrose 50% In Water (25gm) 50 Ml Syringe IV Q30MIN PRN Hypoglycemia Protocol Diltiazem HCl 90 mg 03/20/21 12:00 03/22/21 06:20 Diltiazem 90 Mg Tab PO 90 mg Q6HR KYLE Administration Enoxaparin Sodium 130 mg 03/09/21 11:00 03/22/21 10:22 Enoxaparin 150 Mg/1 Ml Inj SUB-Q Not Given Q12HR [facility] Protocol Famotidine 20 mg 03/04/21 10:00 03/22/21 10:21 Famotidine 20 Mg Tab PO 20 mg BID KYLE Administration Furosemide 80 mg 03/17/21 11:00 03/22/21 10:21 Furosemide 40 Mg Tab PO 80 mg QDAY [facility] Administration Guaifenesin 600 mg 03/11/21 22:00 03/22/21 10:21 Guaifenesin Er 600 Mg Tab PO 600 mg BID KYLE Administration Hydralazine HCl 10 mg 03/09/21 08:21 03/11/21 22:03 Hydralazine 20 Mg/1 Ml Inj IV 10 mg Q4H PRN Administration Hypertension Hydrophilic Ointment 1 applic 03/02/21 15:42 Lip Therapy Vaseline TP Q2H PRN Dry Lips Sodium Chloride 1,000 mls @ 1 mls/hr 03/06/21 18:11 Nacl 0.9% 500 Ml IV DIRECT PRN ARTERIAL LINE FLUSH Potassium Chloride 10 meq in 100 mls @ 100 mls/hr 03/22/21 09:00 Kcl 10meq/100ml IV 03/22/21 12:59 Q1H [facility] Insulin Glargine 30 units 03/16/21 22:00 03/21/21 22:57 Insulin Glargine 100 Units/Ml SUB-Q 30 units QHS [facility] Administration Insulin Human Regular 0 units 03/10/21 18:00 03/22/21 06:34 Insulin Regular, Human 100 Units/1 Ml SUB-Q Not Given Q6HR [facility] Protocol Magnesium Hydroxide 30 ml 03/02/21 00:18 Magnesium Hydroxide (Mom) Oral Liqd Udc PO Q4H PRN Constipation Metoprolol Tartrate 5 mg 03/12/21 14:15 03/12/21 14:40 Metoprolol Tartrate 5 Mg/5 Ml Inj IV 5 mg Q6HR PRN Administration Tachyarrhythmias Miscellaneous Medication 145 mcg 03/17/21 10:00 Linaclotide [Linzess] PO QDAY [facility] Morphine Sulfate 2 mg 03/20/21 23:44 Morphine 2 Mg/1 Ml Inj IV Q4H PRN Pain, Moderate (4-6) Multi-Ingred Cream/Lotion/Oil/Oint 1 applic 03/02/21 15:42 Mineral Oil/Petrolatum, White Ophth Oint 3.5 Gm OU Q4HR PRN Dry Eye(s) Multivitamins/Minerals 1 each 03/03/21 22:00 03/22/21 10:21 Calcium Carb/Vit D3/Minerals 600 Mg/800 Units Tab PO 1 each BID KYLE Administration Pregabalin 50 mg 03/17/21 14:00 03/22/21 10:22 Pregabalin 50 Mg Cap PO 50 mg TID KYLE Administration Senna/Docusate Sodium 1 tab 03/02/21 22:00 03/22/21 10:21 Sennosides/Docusate Sodium 8.6/50 Mg Tab FEEDTUBE 1 tab BID KYLE Administration Simple Syrup 15 ml 03/03/21 10:53 Simple Syrup 15 Ml FEEDTUBE PRN PRN Hypoglycemia Simple Syrup 30 ml 03/03/21 10:53 Simple Syrup 15 Ml FEEDTUBE PRN PRN Hypoglycemia Sodium Bicarbonate 325 mg 03/03/21 10:53 Sodium Bicarbonate 325 Mg Tab FEEDTUBE PRN PRN For Clogged Feeding Tube Sodium Chloride 10 ml 03/02/21 10:00 03/22/21 10:23 Sodium Chloride 0.9% 10 Ml Flush Syringe IV 10 ml BID KYLE Administration Sodium Chloride 10 ml 03/02/21 00:18 Sodium Chloride 0.9% 10 Ml Flush Syringe IV PRN PRN LINE FLUSH Zinc Sulfate 220 mg 03/06/21 16:00 03/22/21 10:21 Zinc Sulfate 220 Mg Cap PO 220 mg BID KYLE Administration Ziprasidone 20 mg 03/14/21 11:18 Ziprasidone Mesylate 20 Mg Vial IM Q6H PRN Agitation Zolpidem Tartrate 5 mg 03/13/21 17:55 03/18/21 00:50 Zolpidem 5 Mg Tab PO 5 mg QHS PRN Administration Sleep
--- NOTE | 2021-03-22 10:26 | Progress Note ---
Assessment and Plan SVT * Patient had SVT into 180s on 03/12/2021. Resolved after being given Adenosine 6mg IV. Patient was then started on Amio gtt * Received call from nurse on 03/19/2021 around 11:45am that patient heart rate was in 170s-180s. Upon review of telemetry the patient was in SVT 180s. Code was called and patient given 6mg of adenosine. Patient converted back to sinus tach 100s. * Patient has sinus rhythm with short intermittent runs of SVT.Optimize rate control: Continue Cardizem 90mg PO Q6hrs. Hypertension * Continue Cardizem 90mg PO Q6hrs. HFpEF * Echo 12/13/2020 - EF 55-60%, otherwise technically difficult study. * Echo 05/2016 - LV mildly dilated, EF 55-60%, grade II diastolic dysfxn, RV mildly enlarged, normal RV sys fxn, LA mildly dilated, RA mildly dilated, mild-mod AR, mild SD, mild aortic root dilatation. * Echo 03/19/2021-EF 55 to 60%, mild diastolic dysfunction present, right ventricular systolic function is normal, left and right atrium are normal in size, mild aortic regurgitation. Hypokalemia * Patient hypokalemic this AM. K+ is being replaced * Mg+ pending COVID-19 PNA Acute hypoxic resporitary failure * Patient positive for COVID-19 * Pulmonology and infectious disease are following History of Altered Mental Status * Patient intermittently altered * Management per primary team DVT of RLE * Patient on Enoxaparin 130mg SQ BID . Plan to transition to Coumadin once patient is hemodynamically stable * He was diagnosed with a LLE DVT in March 2020 and appears to have been on Coumadin as an outpatient. Continue Cardizem 90mg PO Q6hrs for rate and arrhythmia control. Continue to monitor. Patient waiting for LTAC placement Patient seen in conjunction with Dr. Kim who agrees with this plan of care. Will continue to follow. - Patient Problems (1) ALPHONSO (acute kidney injury) Current Visit: Yes Status: Acute (2) Acute and chronic respiratory failure ([id number]) Current Visit: Yes Status: Acute (3) Acute deep vein thrombosis (DVT) of right lower extremity Current Visit: Yes Status: Acute (4) Encephalopathy Current Visit: Yes Status: Acute (5) NSTEMI (non-ST elevated myocardial infarction) Current Visit: Yes Status: Acute (6) Transaminitis Current Visit: Yes Status: Acute (7) COPD (chronic obstructive pulmonary disease) Current Visit: Yes Status: Chronic (8) Chronic heart failure with preserved ejection fraction (HFpEF) Current Visit: Yes Status: Chronic (9) DM2 (diabetes mellitus, type 2) Current Visit: Yes Status: Chronic (10) H/O: HTN (hypertension) Current Visit: Yes Status: Chronic (11) History of pulmonary embolus (PE) Current Visit: Yes Status: Chronic (12) COVID-19 Current Visit: Yes Status: Acute Subjective Date of service: 03/22/21 Principal diagnosis: Ac hypoxemic resp failure; NSTEMI; ALPHONSO; Sepsis; PNA; CHF; DM II; AMS Interval history: Patient sitting in bed. Patient refusing to take medications Sinus rhythm 90s-100s with no events on monitor Objective Vital Signs Temp Pulse Resp BP Pulse Ox 03/22/21 08:00 96 03/22/21 06:20 109 H 03/22/21 06:19 98.0 F 106 H 24 106/68 88 03/22/21 03:10 94 03/22/21 00:44 101 H 03/22/21 00:29 94 03/21/21 22:00 92 03/21/21 21:26 98.2 F 101 H 28 H 131/63 94 03/21/21 19:16 101 H 134/68 03/21/21 17:25 85 03/21/21 16:04 101 H 134/68 - Physical Examination General: No Apparent Distress HEENT: Positive: PERRL, Normocephaly Neck: Positive: trachea midline Cardiac: Positive: Reg Rate and Rhythm, Regular Rhythm, Tachycardia Lungs: Positive: Decreased Breath Sounds Neuro: Positive: Grossly Intact Abdomen: Positive: Soft Skin: Negative: Rash Incision: Cardiac Cath Site Musculoskeletal: No Fluid Collection Extremities: Present: upper extr. pulses, lower extr. pulses, edema, +1 Edema, warm, Other (anasarca) - Labs and Meds Comprehensive Metabolic Panel 03/21/21 03/22/21 Range/Units 13:30 06:30 Sodium 136 L D 139 (137-145) mmol/L Potassium 3.2 L 2.7 L* (3.6-5.0) mmol/L Chloride 95.9 L 101.1 (98-107) mmol/L Carbon Dioxide 27 29 (22-30) mmol/L BUN 10 11 (9-20) mg/dL Creatinine 0.4 L 0.6 L (0.8-1.3) mg/dL Glucose 105 H 88 (75-100) mg/dL Calcium 7.9 L 7.7 L (8.4-10.2) mg/dL - Imaging and Cardiology EKG: report reviewed, image reviewed Echo: report reviewed (12/2020 - EF 55-60%) Cardiac cath: pending - Telemetry EKG Rhythm: Sinus Rhythm - EKG Sinus rhythms and dysrhythmias: sinus rhythm Ventricular dysrhythmias: supraventricular captures AV and intraventricular conduction: right bundle branch block Repolarization changes or abnormalities: nonspecific abnormality, ST segment, and/or T wave - Allied health notes Allied health notes reviewed: nursing
--- NOTE | 2021-03-22 14:52 | Progress Note ---
Assessment and Plan Acute hypoxemic respiratory failure NSTEMI Acute kidney injury Severe sepsis Bilateral pneumonia H/O congestive heart failure Diabetes type 2 Acute encephalopathy Elevated serum transaminases Anemia that is microcytic Leukocytosis Metabolic acidosis Lactic acidosis - consider LTAC evaluation - repeat COVID-19 test was positive - continue to wean supplemental oxygen for target O2 sat's > 92% acutely - continue care as below otherwise; - Psychiatry evaluation ongoing - cardiology evaluation ongoing - continue encouraging scheduled BIPAP qhs for alveolar recruitment / KAM (he refused last night) - continue daytime Vapotherm HFNC - s/p anti-infective's per ID recommendations (Vancomycin, Levaquin) - continue full dose Lovenox re: VTE - aspiration precautions - continue bronchodilators with pulmonary hygiene per RT - wean per pulmonary driven protocols otherwise - continue accuchecks with glycemic control per SSI (While critically ill target blood glucose of 140-180 mg/dL; avoid hypoglycemia) - avoid nephrotoxins, renally dose all medications - continue to avoid benzodiazepine's, reduce the possibility of delirium - prn analgesia per pain score - Maintenance of sleep-wake cycle, avoid delirium - G.I. & VTE prophylaxis - PT/OT/ROM exercises - continue mobility protocols for pressure ulcer prophylaxis - Monitor hemodynamics closely - continue other care per attending / other consultants - discharge planning ongoing concurrently COVID SPECIFIC INTERVENTIONS - continue contact and airborne isolation - Remdesivir as per ID/Pulmonary developed protocols (received) - started systemic steroids for severe COVID-19 infection empirically - follow repeat COVID tests results - started zinc and vitamin C supplementation [id number] test positive - get & monitor inflammatory markers per facility protocol - ferritin, Ddimer, CRP (if test +ve) - therapeutic anticoagulation per system Protocol based on d-dimer and clinical considerations (On full dose Lovenox for VTE) .... Re-evaluate in am & prn CONDITION: CRITICAL PROGNOSIS: GUARDED CODE STATUS: FULL CODE The high probability of a clinically significant, sudden or life-threatening deterioration of the [respiratory, cardiovascular & neurologic] system(s) required my full and direct attention, intervention and personal management. The aggregate critical care time was [32] minutes without overlap. Time includes spent on; [x] Data Review and interpretation [x] Patient assessment and monitoring of vital signs [x] Documentation [x] Medication orders and management Subjective Date of service: 03/22/21 Principal diagnosis: Ac hypoxemic resp failure; NSTEMI; ALPHONSO; Sepsis; PNA; CHF; DM II; AMS Interval history: Patient is seen today for: Acute hypoxemic respiratory failure; NSTEMI; ALPHONSO; Severe sepsis; Pneumonia; CHF; DM II; Acute encephalopathy Seen and examined at bedside; 24hour events reviewed; nursing and respiratory care staff consulted; no adverse overnight events reported to me; resting peacefully in bed; Objective Vital Signs - 12hr 03/22/21 03/22/21 03/22/21 03:10 06:19 06:20 Temperature 98.0 F Pulse Rate 106 H 109 H Respiratory 24 Rate Blood Pressure 106/68 O2 Sat by Pulse 94 88 Oximetry 03/22/21 03/22/21 03/22/21 08:00 10:00 12:29 Temperature 98.2 F Pulse Rate 107 H Respiratory 24 Rate Blood Pressure 99/60 O2 Sat by Pulse 96 95 91 Oximetry Constitutional: no acute distress, asleep, other (middle aged obese male with mildly increased respiratory effort at rest) Eyes: non-icteric ENT: oropharynx moist, other (extubated) Neck: supple, no lymphadenopathy, no JVD, other (large circumference) Effort: mildly labored Ascultation: Bilateral: diminished breath sounds, rhonchi (posterior bases) Percussion: Bilateral: not dull Cardiovascular: other (tachycardic) Gastrointestinal: normoactive bowel sounds, soft, non-tender, non-distended (protuberant) Integumentary: normal Extremities: no cyanosis, pulses normal, no ischemia or petechiae, edema (trace) Neurologic: pupils equal and round, other (Unable to assess as patient is asleep) Psychiatric: other (Unable to assess as patient is asleep) CBC and BMP: 03/18/21 07:53 03/22/21 06:30 ABG, PT/INR, D-dimer: ABG ABG pH 7.487 (7.320-7.450) H 03/10/21 12:33 POC ABG pCO2 40.4 mmHg (32.0-48.0) 03/10/21 12:33 POC ABG pO2 62.1 mmHg (83-108) L 03/10/21 12:33 POC ABG HCO3 29.9 03/10/21 12:33 ABG O2 Saturation 90.2 (0-100) 03/10/21 12:33 PT/INR, D-dimer PT 15.6 Sec. (12.2-14.9) H 03/04/21 10:17 INR 1.18 (0.87-1.13) H 03/04/21 10:17 D-Dimer 475.91 ng/mlDDU (0-234) H 03/14/21 03:40 Abnormal lab findings: Abnormal Labs 03/01/21 03/01/21 03/01/21 19:15 19:21 19:21 WBC 12.7 H RBC 2.77 L Hgb 9.1 L Hct 27.7 L MCV 100 H MCH 33 H RDW 18.0 H Seg Neutrophils % Monocytes % (Manual) 17.0 H Seg Neutrophils # Monocytes # (Manual) 2.2 H PT INR D-Dimer Heparin Anti-Xa Level ABG pH POC ABG pCO2 POC ABG pO2 64.9 L ABG Hemoglobin 9.3 L ABG Oxyhemoglobin 93.0 L ABG Sodium 133.8 L ABG Potassium ABG Chloride 97.0 L ABG Glucose 191 H Carboxyhemoglobin Sodium Potassium Chloride Carbon Dioxide BUN Creatinine Glucose POC Glucose Lactic Acid Calcium Phosphorus Magnesium Ferritin Total Bilirubin Direct Bilirubin AST ALT Alkaline Phosphatase Ammonia Lactate Dehydrogenase Troponin T 0.493 H* C-Reactive Protein Total Protein Albumin Triglycerides 400 H Cholesterol 232 H HDL Cholesterol 22 L Lipase Arterial Blood Glucose 191 H Arterial Blood Ionized Calcium 4.4 L Urine WBC (Auto) Salicylates Acetaminophen Coronavirus (PCR) 03/01/21 03/01/21 03/01/21 19:21 19:21 19:21 WBC RBC Hgb Hct MCV MCH RDW Seg Neutrophils % Monocytes % (Manual) Seg Neutrophils # Monocytes # (Manual) PT 16.6 H INR 1.28 H D-Dimer Heparin Anti-Xa Level ABG pH POC ABG pCO2 POC ABG pO2 ABG Hemoglobin ABG Oxyhemoglobin ABG Sodium ABG Potassium ABG Chloride ABG Glucose Carboxyhemoglobin Sodium 132 L Potassium Chloride 92.2 L Carbon Dioxide BUN 43 H Creatinine 2.4 H Glucose 190 H POC Glucose Lactic Acid 2.90 H* Calcium Phosphorus Magnesium Ferritin Total Bilirubin 1.60 H Direct Bilirubin 1.2 H AST 275 H ALT 156 H Alkaline Phosphatase 282 H Ammonia Lactate Dehydrogenase Troponin T C-Reactive Protein Total Protein 5.8 L Albumin 2.6 L Triglycerides Cholesterol HDL Cholesterol Lipase 120 H Arterial Blood Glucose Arterial Blood Ionized Calcium Urine WBC (Auto) Salicylates Acetaminophen Coronavirus (PCR) 03/01/21 03/01/21 03/01/21 19:21 19:21 19:21 WBC RBC Hgb Hct MCV MCH RDW Seg Neutrophils % Monocytes % (Manual) Seg Neutrophils # Monocytes # (Manual) PT INR D-Dimer Heparin Anti-Xa Level ABG pH POC ABG pCO2 POC ABG pO2 ABG Hemoglobin ABG Oxyhemoglobin ABG Sodium ABG Potassium ABG Chloride ABG Glucose Carboxyhemoglobin Sodium Potassium Chloride Carbon Dioxide BUN Creatinine Glucose POC Glucose Lactic Acid Calcium Phosphorus Magnesium Ferritin Total Bilirubin Direct Bilirubin AST ALT Alkaline Phosphatase Ammonia 71.0 H Lactate Dehydrogenase Troponin T C-Reactive Protein Total Protein Albumin Triglycerides Cholesterol HDL Cholesterol Lipase Arterial Blood Glucose Arterial Blood Ionized Calcium Urine WBC (Auto) Salicylates < 0.3 L Acetaminophen 5.0 L Coronavirus (PCR) 03/01/21 03/01/21 03/02/21 20:55 20:55 00:01 WBC RBC Hgb Hct MCV MCH RDW Seg Neutrophils % Monocytes % (Manual) Seg Neutrophils # Monocytes # (Manual) PT INR D-Dimer Heparin Anti-Xa Level ABG pH 7.234 L POC ABG pCO2 POC ABG pO2 240.5 H ABG Hemoglobin 9.3 L ABG Oxyhemoglobin 99.1 H ABG Sodium 135.3 L ABG Potassium ABG Chloride ABG Glucose 286 H Carboxyhemoglobin 0.3 L Sodium Potassium Chloride Carbon Dioxide BUN Creatinine Glucose POC Glucose Lactic Acid 4.30 H* Calcium Phosphorus Magnesium Ferritin Total Bilirubin Direct Bilirubin AST ALT Alkaline Phosphatase Ammonia Lactate Dehydrogenase Troponin T 0.484 H* C-Reactive Protein Total Protein Albumin Triglycerides Cholesterol HDL Cholesterol Lipase Arterial Blood Glucose 286 H Arterial Blood Ionized Calcium Urine WBC (Auto) Salicylates Acetaminophen Coronavirus (PCR) 03/02/21 03/02/21 03/02/21 03:42 05:23 06:35 WBC RBC Hgb Hct MCV MCH RDW Seg Neutrophils % Monocytes % (Manual) Seg Neutrophils # Monocytes # (Manual) PT INR D-Dimer Heparin Anti-Xa Level ABG pH 7.225 L POC ABG pCO2 POC ABG pO2 181.8 H ABG Hemoglobin 9.4 L ABG Oxyhemoglobin 98.6 H ABG Sodium 132.1 L ABG Potassium 5.0 H ABG Chloride ABG Glucose 454 H Carboxyhemoglobin 0.3 L Sodium Potassium Chloride Carbon Dioxide BUN Creatinine Glucose POC Glucose 410 H Lactic Acid 7.50 H* Calcium Phosphorus Magnesium Ferritin Total Bilirubin Direct Bilirubin AST ALT Alkaline Phosphatase Ammonia Lactate Dehydrogenase Troponin T C-Reactive Protein Total Protein Albumin Triglycerides Cholesterol HDL Cholesterol Lipase Arterial Blood Glucose 454 H Arterial Blood Ionized Calcium 4.2 L Urine WBC (Auto) Salicylates Acetaminophen Coronavirus (PCR) 03/02/21 03/02/21 03/02/21 10:48 10:48 10:48 WBC RBC Hgb Hct MCV MCH RDW Seg Neutrophils % Monocytes % (Manual) Seg Neutrophils # Monocytes # (Manual) PT INR D-Dimer Heparin Anti-Xa Level ABG pH POC ABG pCO2 POC ABG pO2 ABG Hemoglobin ABG Oxyhemoglobin ABG Sodium ABG Potassium ABG Chloride ABG Glucose Carboxyhemoglobin Sodium 132 L Potassium Chloride 93.3 L Carbon Dioxide 20 L BUN 46 H Creatinine 1.9 H Glucose 503 H* POC Glucose Lactic Acid 3.40 H* Calcium 7.9 L Phosphorus 5.80 H Magnesium Ferritin Total Bilirubin Direct Bilirubin AST ALT Alkaline Phosphatase Ammonia Lactate Dehydrogenase Troponin T C-Reactive Protein Total Protein Albumin Triglycerides Cholesterol HDL Cholesterol Lipase Arterial Blood Glucose Arterial Blood Ionized Calcium Urine WBC (Auto) Salicylates Acetaminophen Coronavirus (PCR) 03/02/21 03/02/21 03/02/21 11:23 11:38 15:33 WBC RBC Hgb Hct MCV MCH RDW Seg Neutrophils % Monocytes % (Manual) Seg Neutrophils # Monocytes # (Manual) PT INR D-Dimer Heparin Anti-Xa Level ABG pH 7.318 L POC ABG pCO2 POC ABG pO2 ABG Hemoglobin 9.2 L ABG Oxyhemoglobin ABG Sodium 133.2 L ABG Potassium ABG Chloride ABG Glucose 504 H Carboxyhemoglobin 0.3 L Sodium Potassium Chloride Carbon Dioxide BUN Creatinine Glucose POC Glucose 468 H 445 H Lactic Acid Calcium Phosphorus Magnesium Ferritin Total Bilirubin Direct Bilirubin AST ALT Alkaline Phosphatase Ammonia Lactate Dehydrogenase Troponin T C-Reactive Protein Total Protein Albumin Triglycerides Cholesterol HDL Cholesterol Lipase Arterial Blood Glucose 504 H Arterial Blood Ionized Calcium 4.2 L Urine WBC (Auto) Salicylates Acetaminophen Coronavirus (PCR) 03/02/21 03/02/21 03/02/21 16:28 16:28 16:28 WBC RBC Hgb 8.8 L Hct 26.0 L MCV MCH RDW Seg Neutrophils % Monocytes % (Manual) Seg Neutrophils # Monocytes # (Manual) PT 15.2 H INR 1.14 H D-Dimer Heparin Anti-Xa Level ABG pH POC ABG pCO2 POC ABG pO2 ABG Hemoglobin ABG Oxyhemoglobin ABG Sodium ABG Potassium ABG Chloride ABG Glucose Carboxyhemoglobin Sodium 135 L Potassium Chloride 93.8 L Carbon Dioxide BUN 48 H Creatinine 1.8 H Glucose 454 H POC Glucose Lactic Acid Calcium 7.6 L Phosphorus Magnesium Ferritin Total Bilirubin Direct Bilirubin AST ALT Alkaline Phosphatase Ammonia Lactate Dehydrogenase Troponin T C-Reactive Protein Total Protein Albumin Triglycerides Cholesterol HDL Cholesterol Lipase Arterial Blood Glucose Arterial Blood Ionized Calcium Urine WBC (Auto) Salicylates Acetaminophen Coronavirus (PCR) 03/02/21 03/02/21 03/02/21 17:39 18:52 20:09 WBC RBC Hgb Hct MCV MCH RDW Seg Neutrophils % Monocytes % (Manual) Seg Neutrophils # Monocytes # (Manual) PT INR D-Dimer Heparin Anti-Xa Level ABG pH POC ABG pCO2 POC ABG pO2 ABG Hemoglobin ABG Oxyhemoglobin ABG Sodium ABG Potassium ABG Chloride ABG Glucose Carboxyhemoglobin Sodium Potassium Chloride Carbon Dioxide BUN Creatinine Glucose POC Glucose 404 H 357 H 347 H Lactic Acid Calcium Phosphorus Magnesium Ferritin Total Bilirubin Direct Bilirubin AST ALT Alkaline Phosphatase Ammonia Lactate Dehydrogenase Troponin T C-Reactive Protein Total Protein Albumin Triglycerides Cholesterol HDL Cholesterol Lipase Arterial Blood Glucose Arterial Blood Ionized Calcium Urine WBC (Auto) Salicylates Acetaminophen Coronavirus (PCR) 03/02/21 03/02/21 03/02/21 21:03 22:00 22:55 WBC RBC Hgb Hct MCV MCH RDW Seg Neutrophils % Monocytes % (Manual) Seg Neutrophils # Monocytes # (Manual) PT INR D-Dimer Heparin Anti-Xa Level ABG pH POC ABG pCO2 POC ABG pO2 ABG Hemoglobin ABG Oxyhemoglobin ABG Sodium ABG Potassium ABG Chloride ABG Glucose Carboxyhemoglobin Sodium Potassium Chloride Carbon Dioxide BUN Creatinine Glucose POC Glucose 307 H 270 H 237 H Lactic Acid Calcium Phosphorus Magnesium Ferritin Total Bilirubin Direct Bilirubin AST ALT Alkaline Phosphatase Ammonia Lactate Dehydrogenase Troponin T C-Reactive Protein Total Protein Albumin Triglycerides Cholesterol HDL Cholesterol Lipase Arterial Blood Glucose Arterial Blood Ionized Calcium Urine WBC (Auto) Salicylates Acetaminophen Coronavirus (PCR) 03/03/21 03/03/21 03/03/21 00:02 00:57 02:01 WBC RBC Hgb Hct MCV MCH RDW Seg Neutrophils % Monocytes % (Manual) Seg Neutrophils # Monocytes # (Manual) PT INR D-Dimer Heparin Anti-Xa Level ABG pH POC ABG pCO2 POC ABG pO2 ABG Hemoglobin ABG Oxyhemoglobin ABG Sodium ABG Potassium ABG Chloride ABG Glucose Carboxyhemoglobin Sodium Potassium Chloride Carbon Dioxide BUN Creatinine Glucose POC Glucose 252 H 214 H 261 H Lactic Acid Calcium Phosphorus Magnesium Ferritin Total Bilirubin Direct Bilirubin AST ALT Alkaline Phosphatase Ammonia Lactate Dehydrogenase Troponin T C-Reactive Protein Total Protein Albumin Triglycerides Cholesterol HDL Cholesterol Lipase Arterial Blood Glucose Arterial Blood Ionized Calcium Urine WBC (Auto) Salicylates Acetaminophen Coronavirus (PCR) 03/03/21 03/03/21 03/03/21 03:07 03:10 03:50 WBC 13.7 H RBC 2.69 L Hgb 8.7 L Hct 26.9 L MCV 100 H MCH RDW 18.5 H Seg Neutrophils % 79.0 H Monocytes % (Manual) Seg Neutrophils # 10.8 H Monocytes # (Manual) PT INR D-Dimer Heparin Anti-Xa Level ABG pH POC ABG pCO2 50.9 H POC ABG pO2 81.9 L ABG Hemoglobin 8.7 L ABG Oxyhemoglobin ABG Sodium 134.2 L ABG Potassium ABG Chloride 96.0 L ABG Glucose 279 H Carboxyhemoglobin 0.4 L Sodium Potassium Chloride Carbon Dioxide BUN Creatinine Glucose POC Glucose 276 H Lactic Acid Calcium Phosphorus Magnesium Ferritin Total Bilirubin Direct Bilirubin AST ALT Alkaline Phosphatase Ammonia Lactate Dehydrogenase Troponin T C-Reactive Protein Total Protein Albumin Triglycerides Cholesterol HDL Cholesterol Lipase Arterial Blood Glucose 279 H Arterial Blood Ionized Calcium 3.9 L Urine WBC (Auto) Salicylates Acetaminophen Coronavirus (PCR) 03/03/21 03/03/21 03/03/21 03:50 04:06 04:32 WBC RBC Hgb Hct MCV MCH RDW Seg Neutrophils % Monocytes % (Manual) Seg Neutrophils # Monocytes # (Manual) PT INR D-Dimer Heparin Anti-Xa Level ABG pH POC ABG pCO2 POC ABG pO2 ABG Hemoglobin ABG Oxyhemoglobin ABG Sodium ABG Potassium ABG Chloride ABG Glucose Carboxyhemoglobin Sodium Potassium Chloride 94.2 L Carbon Dioxide BUN 45 H Creatinine 1.9 H Glucose 261 H POC Glucose 256 H Lactic Acid Calcium 7.3 L Phosphorus Magnesium Ferritin Total Bilirubin Direct Bilirubin 0.9 H AST 208 H ALT 148 H Alkaline Phosphatase 251 H Ammonia Lactate Dehydrogenase Troponin T C-Reactive Protein Total Protein 5.5 L Albumin 2.4 L Triglycerides Cholesterol HDL Cholesterol Lipase Arterial Blood Glucose Arterial Blood Ionized Calcium Urine WBC (Auto) Salicylates Acetaminophen Coronavirus (PCR) 03/03/21 03/03/21 03/03/21 05:23 06:06 07:07 WBC RBC Hgb Hct MCV MCH RDW Seg Neutrophils % Monocytes % (Manual) Seg Neutrophils # Monocytes # (Manual) PT INR D-Dimer Heparin Anti-Xa Level ABG pH POC ABG pCO2 POC ABG pO2 ABG Hemoglobin ABG Oxyhemoglobin ABG Sodium ABG Potassium ABG Chloride ABG Glucose Carboxyhemoglobin Sodium Potassium Chloride Carbon Dioxide BUN Creatinine Glucose POC Glucose 214 H 249 H 237 H Lactic Acid Calcium Phosphorus Magnesium Ferritin Total Bilirubin Direct Bilirubin AST ALT Alkaline Phosphatase Ammonia Lactate Dehydrogenase Troponin T C-Reactive Protein Total Protein Albumin Triglycerides Cholesterol HDL Cholesterol Lipase Arterial Blood Glucose Arterial Blood Ionized Calcium Urine WBC (Auto) Salicylates Acetaminophen Coronavirus (PCR) 03/03/21 03/03/21 03/03/21 07:58 08:58 09:52 WBC RBC Hgb Hct MCV MCH RDW Seg Neutrophils % Monocytes % (Manual) Seg Neutrophils # Monocytes # (Manual) PT INR D-Dimer Heparin Anti-Xa Level ABG pH POC ABG pCO2 POC ABG pO2 ABG Hemoglobin ABG Oxyhemoglobin ABG Sodium ABG Potassium ABG Chloride ABG Glucose Carboxyhemoglobin Sodium Potassium Chloride Carbon Dioxide BUN Creatinine Glucose POC Glucose 227 H 215 H 207 H Lactic Acid Calcium Phosphorus Magnesium Ferritin Total Bilirubin Direct Bilirubin AST ALT Alkaline Phosphatase Ammonia Lactate Dehydrogenase Troponin T C-Reactive Protein Total Protein Albumin Triglycerides Cholesterol HDL Cholesterol Lipase Arterial Blood Glucose Arterial Blood Ionized Calcium Urine WBC (Auto) Salicylates Acetaminophen Coronavirus (PCR) 03/03/21 03/03/21 03/03/21 10:55 11:44 12:53 WBC RBC Hgb Hct MCV MCH RDW Seg Neutrophils % Monocytes % (Manual) Seg Neutrophils # Monocytes # (Manual) PT INR D-Dimer Heparin Anti-Xa Level ABG pH POC ABG pCO2 POC ABG pO2 ABG Hemoglobin ABG Oxyhemoglobin ABG Sodium ABG Potassium ABG Chloride ABG Glucose Carboxyhemoglobin Sodium Potassium Chloride Carbon Dioxide BUN Creatinine Glucose POC Glucose 198 H 210 H 203 H Lactic Acid Calcium Phosphorus Magnesium Ferritin Total Bilirubin Direct Bilirubin AST ALT Alkaline Phosphatase Ammonia Lactate Dehydrogenase Troponin T C-Reactive Protein Total Protein Albumin Triglycerides Cholesterol HDL Cholesterol Lipase Arterial Blood Glucose Arterial Blood Ionized Calcium Urine WBC (Auto) Salicylates Acetaminophen Coronavirus (PCR) 03/03/21 03/03/21 03/03/21 13:53 14:58 15:23 WBC RBC Hgb Hct MCV MCH RDW Seg Neutrophils % Monocytes % (Manual) Seg Neutrophils # Monocytes # (Manual) PT INR D-Dimer Heparin Anti-Xa Level ABG pH POC ABG pCO2 POC ABG pO2 ABG Hemoglobin ABG Oxyhemoglobin ABG Sodium ABG Potassium ABG Chloride ABG Glucose Carboxyhemoglobin Sodium Potassium Chloride Carbon Dioxide BUN Creatinine Glucose POC Glucose 210 H 187 H Lactic Acid 3.10 H* Calcium Phosphorus Magnesium Ferritin Total Bilirubin Direct Bilirubin AST ALT Alkaline Phosphatase Ammonia Lactate Dehydrogenase Troponin T C-Reactive Protein Total Protein Albumin Triglycerides Cholesterol HDL Cholesterol Lipase Arterial Blood Glucose Arterial Blood Ionized Calcium Urine WBC (Auto) Salicylates Acetaminophen Coronavirus (PCR) 03/03/21 03/03/21 03/03/21 15:51 16:25 16:53 WBC RBC Hgb Hct MCV MCH RDW Seg Neutrophils % Monocytes % (Manual) Seg Neutrophils # Monocytes # (Manual) PT INR D-Dimer Heparin Anti-Xa Level ABG pH POC ABG pCO2 POC ABG pO2 ABG Hemoglobin ABG Oxyhemoglobin ABG Sodium ABG Potassium ABG Chloride ABG Glucose Carboxyhemoglobin Sodium Potassium Chloride 91.0 L Carbon Dioxide 34 H BUN 47 H Creatinine 1.7 H Glucose 190 H POC Glucose 182 H 179 H Lactic Acid Calcium 7.6 L Phosphorus Magnesium Ferritin Total Bilirubin Direct Bilirubin AST ALT Alkaline Phosphatase Ammonia Lactate Dehydrogenase Troponin T C-Reactive Protein Total Protein Albumin Triglycerides Cholesterol HDL Cholesterol Lipase Arterial Blood Glucose Arterial Blood Ionized Calcium Urine WBC (Auto) Salicylates Acetaminophen Coronavirus (PCR) 03/03/21 03/03/21 03/03/21 17:55 19:37 20:57 WBC RBC Hgb Hct MCV MCH RDW Seg Neutrophils % Monocytes % (Manual) Seg Neutrophils # Monocytes # (Manual) PT INR D-Dimer Heparin Anti-Xa Level ABG pH POC ABG pCO2 POC ABG pO2 ABG Hemoglobin ABG Oxyhemoglobin ABG Sodium ABG Potassium ABG Chloride ABG Glucose Carboxyhemoglobin Sodium Potassium Chloride Carbon Dioxide BUN Creatinine Glucose POC Glucose 185 H 174 H 175 H Lactic Acid Calcium Phosphorus Magnesium Ferritin Total Bilirubin Direct Bilirubin AST ALT Alkaline Phosphatase Ammonia Lactate Dehydrogenase Troponin T C-Reactive Protein Total Protein Albumin Triglycerides Cholesterol HDL Cholesterol Lipase Arterial Blood Glucose Arterial Blood Ionized Calcium Urine WBC (Auto) Salicylates Acetaminophen Coronavirus (PCR) 03/03/21 03/03/21 03/03/21 22:02 22:56 23:10 WBC RBC Hgb Hct MCV MCH RDW Seg Neutrophils % Monocytes % (Manual) Seg Neutrophils # Monocytes # (Manual) PT INR D-Dimer Heparin Anti-Xa Level 0.75 H ABG pH POC ABG pCO2 POC ABG pO2 ABG Hemoglobin ABG Oxyhemoglobin ABG Sodium ABG Potassium ABG Chloride ABG Glucose Carboxyhemoglobin Sodium Potassium Chloride Carbon Dioxide BUN Creatinine Glucose POC Glucose 170 H 160 H Lactic Acid Calcium Phosphorus Magnesium Ferritin Total Bilirubin Direct Bilirubin AST ALT Alkaline Phosphatase Ammonia Lactate Dehydrogenase Troponin T C-Reactive Protein Total Protein Albumin Triglycerides Cholesterol HDL Cholesterol Lipase Arterial Blood Glucose Arterial Blood Ionized Calcium Urine WBC (Auto) Salicylates Acetaminophen Coronavirus (PCR) 03/03/21 03/04/21 03/04/21 23:42 00:52 01:55 WBC RBC Hgb Hct MCV MCH RDW Seg Neutrophils % Monocytes % (Manual) Seg Neutrophils # Monocytes # (Manual) PT INR D-Dimer Heparin Anti-Xa Level ABG pH POC ABG pCO2 POC ABG pO2 ABG Hemoglobin ABG Oxyhemoglobin ABG Sodium ABG Potassium ABG Chloride ABG Glucose Carboxyhemoglobin Sodium Potassium Chloride Carbon Dioxide BUN Creatinine Glucose POC Glucose 161 H 167 H 119 H Lactic Acid Calcium Phosphorus Magnesium Ferritin Total Bilirubin Direct Bilirubin AST ALT Alkaline Phosphatase Ammonia Lactate Dehydrogenase Troponin T C-Reactive Protein Total Protein Albumin Triglycerides Cholesterol HDL Cholesterol Lipase Arterial Blood Glucose Arterial Blood Ionized Calcium Urine WBC (Auto) Salicylates Acetaminophen Coronavirus (PCR) 03/04/21 03/04/21 03/04/21 02:58 03:47 04:03 WBC RBC Hgb Hct MCV MCH RDW Seg Neutrophils % Monocytes % (Manual) Seg Neutrophils # Monocytes # (Manual) PT INR D-Dimer Heparin Anti-Xa Level ABG pH POC ABG pCO2 57.3 H POC ABG pO2 63.7 L ABG Hemoglobin 8.4 L ABG Oxyhemoglobin 88.6 L ABG Sodium 132.5 L ABG Potassium 3.2 L ABG Chloride 94.0 L ABG Glucose 129 H Carboxyhemoglobin Sodium Potassium Chloride Carbon Dioxide BUN Creatinine Glucose POC Glucose 111 H 122 H Lactic Acid Calcium Phosphorus Magnesium Ferritin Total Bilirubin Direct Bilirubin AST ALT Alkaline Phosphatase Ammonia Lactate Dehydrogenase Troponin T C-Reactive Protein Total Protein Albumin Triglycerides Cholesterol HDL Cholesterol Lipase Arterial Blood Glucose 129 H Arterial Blood Ionized Calcium 3.8 L Urine WBC (Auto) Salicylates Acetaminophen Coronavirus (PCR) 03/04/21 03/04/21 03/04/21 05:15 05:26 05:26 WBC RBC Hgb 7.9 L Hct 23.7 L MCV MCH RDW Seg Neutrophils % Monocytes % (Manual) Seg Neutrophils # Monocytes # (Manual) PT INR D-Dimer Heparin Anti-Xa Level ABG pH POC ABG pCO2 POC ABG pO2 ABG Hemoglobin ABG Oxyhemoglobin ABG Sodium ABG Potassium ABG Chloride ABG Glucose Carboxyhemoglobin Sodium Potassium Chloride Carbon Dioxide BUN Creatinine Glucose POC Glucose 127 H Lactic Acid Calcium Phosphorus Magnesium Ferritin Total Bilirubin Direct Bilirubin 0.6 H AST 123 H ALT 105 H Alkaline Phosphatase 232 H Ammonia Lactate Dehydrogenase Troponin T C-Reactive Protein Total Protein 4.8 L Albumin 2.2 L Triglycerides Cholesterol HDL Cholesterol Lipase Arterial Blood Glucose Arterial Blood Ionized Calcium Urine WBC (Auto) Salicylates Acetaminophen Coronavirus (PCR) 03/04/21 03/04/21 03/04/21 05:26 06:01 06:53 WBC RBC Hgb Hct MCV MCH RDW Seg Neutrophils % Monocytes % (Manual) Seg Neutrophils # Monocytes # (Manual) PT INR D-Dimer Heparin Anti-Xa Level 0.71 H ABG pH POC ABG pCO2 POC ABG pO2 ABG Hemoglobin ABG Oxyhemoglobin ABG Sodium ABG Potassium ABG Chloride ABG Glucose Carboxyhemoglobin Sodium Potassium Chloride Carbon Dioxide BUN Creatinine Glucose POC Glucose 120 H 117 H Lactic Acid Calcium Phosphorus Magnesium Ferritin Total Bilirubin Direct Bilirubin AST ALT Alkaline Phosphatase Ammonia Lactate Dehydrogenase Troponin T C-Reactive Protein Total Protein Albumin Triglycerides Cholesterol HDL Cholesterol Lipase Arterial Blood Glucose Arterial Blood Ionized Calcium Urine WBC (Auto) Salicylates Acetaminophen Coronavirus (PCR) 03/04/21 03/04/21 03/04/21 07:57 10:17 10:17 WBC RBC 2.51 L Hgb 8.3 L Hct 25.3 L MCV 101 H MCH 33 H RDW 18.5 H Seg Neutrophils % Monocytes % (Manual) Seg Neutrophils # Monocytes # (Manual) PT INR D-Dimer Heparin Anti-Xa Level ABG pH POC ABG pCO2 POC ABG pO2 ABG Hemoglobin ABG Oxyhemoglobin ABG Sodium ABG Potassium ABG Chloride ABG Glucose Carboxyhemoglobin Sodium 136 L Potassium Chloride 93.1 L Carbon Dioxide 33 H BUN 46 H Creatinine 1.4 H Glucose 151 H POC Glucose 129 H Lactic Acid Calcium 7.5 L Phosphorus Magnesium Ferritin Total Bilirubin Direct Bilirubin AST 126 H ALT 100 H Alkaline Phosphatase 226 H Ammonia Lactate Dehydrogenase Troponin T C-Reactive Protein Total Protein 5.0 L Albumin 2.2 L Triglycerides Cholesterol HDL Cholesterol Lipase Arterial Blood Glucose Arterial Blood Ionized Calcium Urine WBC (Auto) Salicylates Acetaminophen Coronavirus (PCR) 03/04/21 03/04/21 03/04/21 10:17 10:17 11:26 WBC RBC Hgb Hct MCV MCH RDW Seg Neutrophils % Monocytes % (Manual) Seg Neutrophils # Monocytes # (Manual) PT 15.6 H INR 1.18 H D-Dimer Heparin Anti-Xa Level ABG pH POC ABG pCO2 POC ABG pO2 ABG Hemoglobin ABG Oxyhemoglobin ABG Sodium ABG Potassium ABG Chloride ABG Glucose Carboxyhemoglobin Sodium Potassium Chloride Carbon Dioxide BUN Creatinine Glucose POC Glucose 167 H Lactic Acid Calcium Phosphorus Magnesium Ferritin Total Bilirubin Direct Bilirubin AST ALT Alkaline Phosphatase Ammonia Lactate Dehydrogenase Troponin T C-Reactive Protein Total Protein Albumin Triglycerides Cholesterol HDL Cholesterol Lipase 78 H Arterial Blood Glucose Arterial Blood Ionized Calcium Urine WBC (Auto) Salicylates Acetaminophen Coronavirus (PCR) 03/04/21 03/04/21 03/04/21 13:04 16:26 17:58 WBC RBC Hgb 7.7 L Hct 23.2 L MCV MCH RDW Seg Neutrophils % Monocytes % (Manual) Seg Neutrophils # Monocytes # (Manual) PT INR D-Dimer Heparin Anti-Xa Level < 0.10 L ABG pH POC ABG pCO2 POC ABG pO2 ABG Hemoglobin ABG Oxyhemoglobin ABG Sodium ABG Potassium ABG Chloride ABG Glucose Carboxyhemoglobin Sodium Potassium Chloride Carbon Dioxide BUN Creatinine Glucose POC Glucose 167 H Lactic Acid Calcium Phosphorus Magnesium Ferritin Total Bilirubin Direct Bilirubin AST ALT Alkaline Phosphatase Ammonia Lactate Dehydrogenase Troponin T C-Reactive Protein Total Protein Albumin Triglycerides Cholesterol HDL Cholesterol Lipase Arterial Blood Glucose Arterial Blood Ionized Calcium Urine WBC (Auto) Salicylates Acetaminophen Coronavirus (PCR) 03/04/21 03/05/21 03/05/21 23:47 04:00 05:06 WBC RBC Hgb Hct MCV MCH RDW Seg Neutrophils % Monocytes % (Manual) Seg Neutrophils # Monocytes # (Manual) PT INR D-Dimer Heparin Anti-Xa Level ABG pH POC ABG pCO2 POC ABG pO2 129.1 H ABG Hemoglobin 8.3 L ABG Oxyhemoglobin ABG Sodium 131.4 L ABG Potassium ABG Chloride 95.0 L ABG Glucose 153 H Carboxyhemoglobin Sodium Potassium Chloride Carbon Dioxide BUN Creatinine Glucose POC Glucose 153 H 139 H Lactic Acid Calcium Phosphorus Magnesium Ferritin Total Bilirubin Direct Bilirubin AST ALT Alkaline Phosphatase Ammonia Lactate Dehydrogenase Troponin T C-Reactive Protein Total Protein Albumin Triglycerides Cholesterol HDL Cholesterol Lipase Arterial Blood Glucose 153 H Arterial Blood Ionized Calcium Urine WBC (Auto) Salicylates Acetaminophen Coronavirus (PCR) 03/05/21 03/05/21 03/05/21 11:43 13:35 13:35 WBC RBC 2.38 L Hgb 7.8 L Hct 23.8 L MCV 100 H MCH 33 H RDW 18.2 H Seg Neutrophils % Monocytes % (Manual) Seg Neutrophils # Monocytes # (Manual) PT INR D-Dimer Heparin Anti-Xa Level ABG pH POC ABG pCO2 POC ABG pO2 ABG Hemoglobin ABG Oxyhemoglobin ABG Sodium ABG Potassium ABG Chloride ABG Glucose Carboxyhemoglobin Sodium Potassium Chloride 94.4 L Carbon Dioxide BUN 49 H Creatinine 1.6 H Glucose 165 H POC Glucose 174 H Lactic Acid Calcium 7.5 L Phosphorus Magnesium Ferritin Total Bilirubin Direct Bilirubin AST ALT Alkaline Phosphatase Ammonia Lactate Dehydrogenase Troponin T C-Reactive Protein Total Protein Albumin Triglycerides Cholesterol HDL Cholesterol Lipase Arterial Blood Glucose Arterial Blood Ionized Calcium Urine WBC (Auto) Salicylates Acetaminophen Coronavirus (PCR) 03/05/21 03/05/21 03/05/21 17:57 21:27 Unknown WBC RBC Hgb Hct MCV MCH RDW Seg Neutrophils % Monocytes % (Manual) Seg Neutrophils # Monocytes # (Manual) PT INR D-Dimer Heparin Anti-Xa Level ABG pH POC ABG pCO2 POC ABG pO2 ABG Hemoglobin ABG Oxyhemoglobin ABG Sodium ABG Potassium ABG Chloride ABG Glucose Carboxyhemoglobin Sodium Potassium Chloride Carbon Dioxide BUN Creatinine Glucose POC Glucose 129 H 129 H Lactic Acid Calcium Phosphorus Magnesium Ferritin Total Bilirubin Direct Bilirubin AST ALT Alkaline Phosphatase Ammonia Lactate Dehydrogenase Troponin T C-Reactive Protein Total Protein Albumin Triglycerides Cholesterol HDL Cholesterol Lipase Arterial Blood Glucose Arterial Blood Ionized Calcium Urine WBC (Auto) Salicylates Acetaminophen Coronavirus (PCR) Positive A 03/06/21 03/06/21 03/06/21 03:30 04:30 05:20 WBC 15.2 H RBC 2.48 L Hgb 8.2 L Hct 24.9 L MCV 100 H MCH 33 H RDW 18.6 H Seg Neutrophils % 72.6 H Monocytes % (Manual) Seg Neutrophils # 11.1 H Monocytes # (Manual) PT INR D-Dimer Heparin Anti-Xa Level ABG pH POC ABG pCO2 49.7 H POC ABG pO2 65.1 L ABG Hemoglobin 9.1 L ABG Oxyhemoglobin 90.2 L ABG Sodium 131.2 L ABG Potassium ABG Chloride 96.0 L ABG Glucose 133 H Carboxyhemoglobin Sodium Potassium Chloride Carbon Dioxide BUN Creatinine Glucose POC Glucose Lactic Acid Calcium Phosphorus Magnesium Ferritin Total Bilirubin Direct Bilirubin AST ALT Alkaline Phosphatase Ammonia Lactate Dehydrogenase Troponin T C-Reactive Protein 27.90 H Total Protein Albumin Triglycerides Cholesterol HDL Cholesterol Lipase Arterial Blood Glucose 133 H Arterial Blood Ionized Calcium 4.2 L Urine WBC (Auto) Salicylates Acetaminophen Coronavirus (PCR) 03/06/21 03/06/21 03/06/21 05:20 05:30 11:52 WBC RBC Hgb Hct MCV MCH RDW Seg Neutrophils % Monocytes % (Manual) Seg Neutrophils # Monocytes # (Manual) PT INR D-Dimer Heparin Anti-Xa Level ABG pH POC ABG pCO2 POC ABG pO2 ABG Hemoglobin ABG Oxyhemoglobin ABG Sodium ABG Potassium ABG Chloride ABG Glucose Carboxyhemoglobin Sodium 135 L Potassium Chloride 94.5 L Carbon Dioxide BUN 49 H Creatinine Glucose 121 H POC Glucose 123 H 123 H Lactic Acid Calcium 7.3 L Phosphorus Magnesium 1.50 L Ferritin Total Bilirubin Direct Bilirubin AST 120 H ALT 74 H Alkaline Phosphatase 306 H Ammonia Lactate Dehydrogenase Troponin T C-Reactive Protein Total Protein 4.5 L Albumin 2.0 L Triglycerides Cholesterol HDL Cholesterol Lipase Arterial Blood Glucose Arterial Blood Ionized Calcium Urine WBC (Auto) Salicylates Acetaminophen Coronavirus (PCR) 03/06/21 03/06/21 03/06/21 14:34 17:45 23:36 WBC RBC Hgb Hct MCV MCH RDW Seg Neutrophils % Monocytes % (Manual) Seg Neutrophils # Monocytes # (Manual) PT INR D-Dimer Heparin Anti-Xa Level ABG pH POC ABG pCO2 POC ABG pO2 ABG Hemoglobin ABG Oxyhemoglobin ABG Sodium ABG Potassium ABG Chloride ABG Glucose Carboxyhemoglobin Sodium Potassium Chloride Carbon Dioxide BUN Creatinine Glucose POC Glucose 140 H 209 H Lactic Acid Calcium Phosphorus Magnesium Ferritin Total Bilirubin Direct Bilirubin AST ALT Alkaline Phosphatase Ammonia Lactate Dehydrogenase Troponin T C-Reactive Protein Total Protein Albumin Triglycerides Cholesterol HDL Cholesterol Lipase Arterial Blood Glucose Arterial Blood Ionized Calcium Urine WBC (Auto) 103.0 H Salicylates Acetaminophen Coronavirus (PCR) 03/07/21 03/07/21 03/07/21 03:00 05:32 08:16 WBC RBC Hgb Hct MCV MCH RDW Seg Neutrophils % Monocytes % (Manual) Seg Neutrophils # Monocytes # (Manual) PT INR D-Dimer Heparin Anti-Xa Level ABG pH POC ABG pCO2 POC ABG pO2 ABG Hemoglobin 8.9 L ABG Oxyhemoglobin ABG Sodium 131.4 L ABG Potassium ABG Chloride ABG Glucose 224 H Carboxyhemoglobin Sodium 136 L Potassium Chloride 95.3 L Carbon Dioxide BUN 45 H Creatinine Glucose 210 H POC Glucose 213 H Lactic Acid Calcium 8.0 L Phosphorus Magnesium Ferritin Total Bilirubin 1.30 H Direct Bilirubin AST 144 H ALT 66 H Alkaline Phosphatase 335 H Ammonia Lactate Dehydrogenase Troponin T C-Reactive Protein Total Protein 4.9 L Albumin 2.1 L Triglycerides Cholesterol HDL Cholesterol Lipase Arterial Blood Glucose 224 H Arterial Blood Ionized Calcium 4.3 L Urine WBC (Auto) Salicylates Acetaminophen Coronavirus (PCR) 03/07/21 03/07/21 03/07/21 08:16 08:16 08:16 WBC RBC 2.47 L Hgb 8.2 L Hct 24.6 L MCV 100 H MCH 33 H RDW 18.1 H Seg Neutrophils % Monocytes % (Manual) Seg Neutrophils # Monocytes # (Manual) PT INR D-Dimer 403.72 H Heparin Anti-Xa Level ABG pH POC ABG pCO2 POC ABG pO2 ABG Hemoglobin ABG Oxyhemoglobin ABG Sodium ABG Potassium ABG Chloride ABG Glucose Carboxyhemoglobin Sodium Potassium Chloride Carbon Dioxide BUN Creatinine Glucose POC Glucose Lactic Acid Calcium Phosphorus Magnesium Ferritin Total Bilirubin Direct Bilirubin AST ALT Alkaline Phosphatase Ammonia Lactate Dehydrogenase 453 H Troponin T C-Reactive Protein 32.50 H Total Protein Albumin Triglycerides Cholesterol HDL Cholesterol Lipase Arterial Blood Glucose Arterial Blood Ionized Calcium Urine WBC (Auto) Salicylates Acetaminophen Coronavirus (PCR) 03/07/21 03/07/21 03/07/21 08:16 11:24 17:22 WBC RBC Hgb Hct MCV MCH RDW Seg Neutrophils % Monocytes % (Manual) Seg Neutrophils # Monocytes # (Manual) PT INR D-Dimer Heparin Anti-Xa Level ABG pH POC ABG pCO2 POC ABG pO2 ABG Hemoglobin ABG Oxyhemoglobin ABG Sodium ABG Potassium ABG Chloride ABG Glucose Carboxyhemoglobin Sodium Potassium Chloride Carbon Dioxide BUN Creatinine Glucose POC Glucose 205 H 211 H Lactic Acid Calcium Phosphorus Magnesium Ferritin > 2000.0 H Total Bilirubin Direct Bilirubin AST ALT Alkaline Phosphatase Ammonia Lactate Dehydrogenase Troponin T C-Reactive Protein Total Protein Albumin Triglycerides Cholesterol HDL Cholesterol Lipase Arterial Blood Glucose Arterial Blood Ionized Calcium Urine WBC (Auto) Salicylates Acetaminophen Coronavirus (PCR) 03/07/21 03/08/21 03/08/21 Unknown 00:05 04:00 WBC RBC Hgb Hct MCV MCH RDW Seg Neutrophils % Monocytes % (Manual) Seg Neutrophils # Monocytes # (Manual) PT INR D-Dimer Heparin Anti-Xa Level 0.94 H ABG pH 7.452 H POC ABG pCO2 POC ABG pO2 75.5 L ABG Hemoglobin 10.0 L ABG Oxyhemoglobin 93.5 L ABG Sodium 134.7 L ABG Potassium ABG Chloride ABG Glucose 268 H Carboxyhemoglobin 0.3 L Sodium Potassium Chloride Carbon Dioxide BUN Creatinine Glucose POC Glucose 253 H Lactic Acid Calcium Phosphorus Magnesium Ferritin Total Bilirubin Direct Bilirubin AST ALT Alkaline Phosphatase Ammonia Lactate Dehydrogenase Troponin T C-Reactive Protein Total Protein Albumin Triglycerides Cholesterol HDL Cholesterol Lipase Arterial Blood Glucose 268 H Arterial Blood Ionized Calcium 4.5 L Urine WBC (Auto) Salicylates Acetaminophen Coronavirus (PCR) 03/08/21 03/08/21 03/08/21 05:27 06:10 06:10 WBC RBC 2.62 L Hgb 8.4 L Hct 26.0 L MCV 100 H MCH RDW 18.0 H Seg Neutrophils % Monocytes % (Manual) Seg Neutrophils # Monocytes # (Manual) PT INR D-Dimer Heparin Anti-Xa Level ABG pH POC ABG pCO2 POC ABG pO2 ABG Hemoglobin ABG Oxyhemoglobin ABG Sodium ABG Potassium ABG Chloride ABG Glucose Carboxyhemoglobin Sodium Potassium Chloride Carbon Dioxide BUN 49 H Creatinine Glucose 280 H POC Glucose 273 H Lactic Acid Calcium Phosphorus Magnesium Ferritin Total Bilirubin Direct Bilirubin AST 130 H ALT 68 H Alkaline Phosphatase 440 H Ammonia Lactate Dehydrogenase Troponin T C-Reactive Protein Total Protein 5.3 L Albumin 1.9 L Triglycerides Cholesterol HDL Cholesterol Lipase Arterial Blood Glucose Arterial Blood Ionized Calcium Urine WBC (Auto) Salicylates Acetaminophen Coronavirus (PCR) 03/08/21 03/08/21 03/08/21 11:27 17:56 23:20 WBC RBC Hgb Hct MCV MCH RDW Seg Neutrophils % Monocytes % (Manual) Seg Neutrophils # Monocytes # (Manual) PT INR D-Dimer Heparin Anti-Xa Level ABG pH POC ABG pCO2 POC ABG pO2 ABG Hemoglobin ABG Oxyhemoglobin ABG Sodium ABG Potassium ABG Chloride ABG Glucose Carboxyhemoglobin Sodium Potassium Chloride Carbon Dioxide BUN Creatinine Glucose POC Glucose 258 H 279 H 289 H Lactic Acid Calcium Phosphorus Magnesium Ferritin Total Bilirubin Direct Bilirubin AST ALT Alkaline Phosphatase Ammonia Lactate Dehydrogenase Troponin T C-Reactive Protein Total Protein Albumin Triglycerides Cholesterol HDL Cholesterol Lipase Arterial Blood Glucose Arterial Blood Ionized Calcium Urine WBC (Auto) Salicylates Acetaminophen Coronavirus (PCR) 03/09/21 03/09/21 03/09/21 04:00 05:12 08:00 WBC RBC Hgb Hct MCV MCH RDW Seg Neutrophils % Monocytes % (Manual) Seg Neutrophils # Monocytes # (Manual) PT INR D-Dimer 249.59 H Heparin Anti-Xa Level ABG pH 7.456 H POC ABG pCO2 POC ABG pO2 ABG Hemoglobin 8.9 L ABG Oxyhemoglobin ABG Sodium 135.6 L ABG Potassium ABG Chloride ABG Glucose 298 H Carboxyhemoglobin 0.3 L Sodium Potassium Chloride Carbon Dioxide BUN Creatinine Glucose POC Glucose 267 H Lactic Acid Calcium Phosphorus Magnesium Ferritin Total Bilirubin Direct Bilirubin AST ALT Alkaline Phosphatase Ammonia Lactate Dehydrogenase Troponin T C-Reactive Protein Total Protein Albumin Triglycerides Cholesterol HDL Cholesterol Lipase Arterial Blood Glucose 298 H Arterial Blood Ionized Calcium 4.5 L Urine WBC (Auto) Salicylates Acetaminophen Coronavirus (PCR) 03/09/21 03/09/21 03/09/21 08:00 08:00 08:00 WBC RBC Hgb Hct MCV MCH RDW Seg Neutrophils % Monocytes % (Manual) Seg Neutrophils # Monocytes # (Manual) PT INR D-Dimer Heparin Anti-Xa Level ABG pH POC ABG pCO2 POC ABG pO2 ABG Hemoglobin ABG Oxyhemoglobin ABG Sodium ABG Potassium ABG Chloride ABG Glucose Carboxyhemoglobin Sodium Potassium Chloride Carbon Dioxide BUN 44 H Creatinine Glucose 289 H POC Glucose Lactic Acid Calcium Phosphorus Magnesium Ferritin 2743.0 H Total Bilirubin Direct Bilirubin AST 134 H ALT 62 H Alkaline Phosphatase 527 H Ammonia Lactate Dehydrogenase 459 H Troponin T C-Reactive Protein 10.60 H Total Protein 5.0 L Albumin 2.2 L Triglycerides Cholesterol HDL Cholesterol Lipase Arterial Blood Glucose Arterial Blood Ionized Calcium Urine WBC (Auto) Salicylates Acetaminophen Coronavirus (PCR) 03/09/21 03/09/21 03/09/21 08:00 11:52 18:05 WBC RBC 2.60 L Hgb 8.5 L Hct 25.5 L MCV 98 H MCH 33 H RDW 18.1 H Seg Neutrophils % Monocytes % (Manual) Seg Neutrophils # Monocytes # (Manual) PT INR D-Dimer Heparin Anti-Xa Level ABG pH POC ABG pCO2 POC ABG pO2 ABG Hemoglobin ABG Oxyhemoglobin ABG Sodium ABG Potassium ABG Chloride ABG Glucose Carboxyhemoglobin Sodium Potassium Chloride Carbon Dioxide BUN Creatinine Glucose POC Glucose 306 H 293 H Lactic Acid Calcium Phosphorus Magnesium Ferritin Total Bilirubin Direct Bilirubin AST ALT Alkaline Phosphatase Ammonia Lactate Dehydrogenase Troponin T C-Reactive Protein Total Protein Albumin Triglycerides Cholesterol HDL Cholesterol Lipase Arterial Blood Glucose Arterial Blood Ionized Calcium Urine WBC (Auto) Salicylates Acetaminophen Coronavirus (PCR) 03/09/21 03/10/21 03/10/21 23:21 04:38 05:25 WBC RBC Hgb 8.6 L Hct 26.0 L MCV MCH RDW Seg Neutrophils % Monocytes % (Manual) Seg Neutrophils # Monocytes # (Manual) PT INR D-Dimer Heparin Anti-Xa Level ABG pH POC ABG pCO2 POC ABG pO2 ABG Hemoglobin ABG Oxyhemoglobin ABG Sodium ABG Potassium ABG Chloride ABG Glucose Carboxyhemoglobin Sodium Potassium Chloride Carbon Dioxide BUN Creatinine Glucose POC Glucose 306 H 310 H Lactic Acid Calcium Phosphorus Magnesium Ferritin Total Bilirubin Direct Bilirubin AST ALT Alkaline Phosphatase Ammonia Lactate Dehydrogenase Troponin T C-Reactive Protein Total Protein Albumin Triglycerides Cholesterol HDL Cholesterol Lipase Arterial Blood Glucose Arterial Blood Ionized Calcium Urine WBC (Auto) Salicylates Acetaminophen Coronavirus (PCR) 03/10/21 03/10/21 03/10/21 05:25 12:33 12:52 WBC RBC Hgb Hct MCV MCH RDW Seg Neutrophils % Monocytes % (Manual) Seg Neutrophils # Monocytes # (Manual) PT INR D-Dimer Heparin Anti-Xa Level ABG pH 7.487 H POC ABG pCO2 POC ABG pO2 62.1 L ABG Hemoglobin 9.4 L ABG Oxyhemoglobin 89.7 L ABG Sodium ABG Potassium ABG Chloride ABG Glucose 350 H Carboxyhemoglobin 0.2 L Sodium Potassium Chloride Carbon Dioxide 32 H BUN 45 H Creatinine Glucose 341 H POC Glucose 340 H Lactic Acid Calcium Phosphorus Magnesium Ferritin Total Bilirubin Direct Bilirubin AST ALT Alkaline Phosphatase Ammonia Lactate Dehydrogenase Troponin T C-Reactive Protein Total Protein Albumin Triglycerides Cholesterol HDL Cholesterol Lipase Arterial Blood Glucose 350 H Arterial Blood Ionized Calcium Urine WBC (Auto) Salicylates Acetaminophen Coronavirus (PCR) 03/10/21 03/10/21 03/11/21 17:05 22:57 04:58 WBC RBC Hgb Hct MCV MCH RDW Seg Neutrophils % Monocytes % (Manual) Seg Neutrophils # Monocytes # (Manual) PT INR D-Dimer Heparin Anti-Xa Level ABG pH POC ABG pCO2 POC ABG pO2 ABG Hemoglobin ABG Oxyhemoglobin ABG Sodium ABG Potassium ABG Chloride ABG Glucose Carboxyhemoglobin Sodium Potassium Chloride Carbon Dioxide BUN Creatinine Glucose POC Glucose 298 H 241 H 261 H Lactic Acid Calcium Phosphorus Magnesium Ferritin Total Bilirubin Direct Bilirubin AST ALT Alkaline Phosphatase Ammonia Lactate Dehydrogenase Troponin T C-Reactive Protein Total Protein Albumin Triglycerides Cholesterol HDL Cholesterol Lipase Arterial Blood Glucose Arterial Blood Ionized Calcium Urine WBC (Auto) Salicylates Acetaminophen Coronavirus (PCR) 03/11/21 03/11/21 03/11/21 06:54 06:54 06:54 WBC RBC Hgb Hct MCV MCH RDW Seg Neutrophils % Monocytes % (Manual) Seg Neutrophils # Monocytes # (Manual) PT INR D-Dimer 238.43 H Heparin Anti-Xa Level ABG pH POC ABG pCO2 POC ABG pO2 ABG Hemoglobin ABG Oxyhemoglobin ABG Sodium ABG Potassium ABG Chloride ABG Glucose Carboxyhemoglobin Sodium 146 H Potassium Chloride Carbon Dioxide 31 H BUN 41 H Creatinine Glucose 255 H POC Glucose Lactic Acid Calcium Phosphorus Magnesium Ferritin 3346.0 H Total Bilirubin Direct Bilirubin AST ALT Alkaline Phosphatase Ammonia Lactate Dehydrogenase 557 H Troponin T C-Reactive Protein 4.70 H Total Protein Albumin Triglycerides Cholesterol HDL Cholesterol Lipase Arterial Blood Glucose Arterial Blood Ionized Calcium Urine WBC (Auto) Salicylates Acetaminophen Coronavirus (PCR) 03/11/21 03/11/21 03/11/21 06:54 11:25 17:41 WBC RBC 2.76 L Hgb 8.9 L Hct 27.0 L MCV 98 H MCH RDW 18.3 H Seg Neutrophils % Monocytes % (Manual) Seg Neutrophils # Monocytes # (Manual) PT INR D-Dimer Heparin Anti-Xa Level ABG pH POC ABG pCO2 POC ABG pO2 ABG Hemoglobin ABG Oxyhemoglobin ABG Sodium ABG Potassium ABG Chloride ABG Glucose Carboxyhemoglobin Sodium Potassium Chloride Carbon Dioxide BUN Creatinine Glucose POC Glucose 255 H 292 H Lactic Acid Calcium Phosphorus Magnesium Ferritin Total Bilirubin Direct Bilirubin AST ALT Alkaline Phosphatase Ammonia Lactate Dehydrogenase Troponin T C-Reactive Protein Total Protein Albumin Triglycerides Cholesterol HDL Cholesterol Lipase Arterial Blood Glucose Arterial Blood Ionized Calcium Urine WBC (Auto) Salicylates Acetaminophen Coronavirus (PCR) 03/11/21 03/12/21 03/12/21 23:26 04:44 05:16 WBC RBC Hgb Hct MCV MCH RDW Seg Neutrophils % Monocytes % (Manual) Seg Neutrophils # Monocytes # (Manual) PT INR D-Dimer Heparin Anti-Xa Level ABG pH POC ABG pCO2 POC ABG pO2 ABG Hemoglobin ABG Oxyhemoglobin ABG Sodium ABG Potassium ABG Chloride ABG Glucose Carboxyhemoglobin Sodium Potassium Chloride Carbon Dioxide BUN Creatinine Glucose POC Glucose 289 H 255 H Lactic Acid Calcium Phosphorus Magnesium Ferritin Total Bilirubin Direct Bilirubin AST ALT Alkaline Phosphatase Ammonia Lactate Dehydrogenase Troponin T 0.149 H* C-Reactive Protein Total Protein Albumin Triglycerides Cholesterol HDL Cholesterol Lipase Arterial Blood Glucose Arterial Blood Ionized Calcium Urine WBC (Auto) Salicylates Acetaminophen Coronavirus (PCR) 03/12/21 03/12/21 03/12/21 12:02 15:00 17:28 WBC RBC Hgb Hct MCV MCH RDW Seg Neutrophils % Monocytes % (Manual) Seg Neutrophils # Monocytes # (Manual) PT INR D-Dimer Heparin Anti-Xa Level ABG pH POC ABG pCO2 POC ABG pO2 ABG Hemoglobin ABG Oxyhemoglobin ABG Sodium ABG Potassium ABG Chloride ABG Glucose Carboxyhemoglobin Sodium Potassium 3.2 L Chloride Carbon Dioxide BUN 39 H Creatinine 0.7 L Glucose 258 H POC Glucose 237 H 257 H Lactic Acid Calcium 8.3 L Phosphorus Magnesium Ferritin Total Bilirubin 2.20 H Direct Bilirubin AST 181 H ALT 129 H Alkaline Phosphatase 541 H Ammonia Lactate Dehydrogenase Troponin T C-Reactive Protein Total Protein 5.0 L Albumin 2.0 L Triglycerides Cholesterol HDL Cholesterol Lipase Arterial Blood Glucose Arterial Blood Ionized Calcium Urine WBC (Auto) Salicylates Acetaminophen Coronavirus (PCR) 03/12/21 03/12/21 03/13/21 21:51 23:15 05:44 WBC RBC Hgb Hct MCV MCH RDW Seg Neutrophils % Monocytes % (Manual) Seg Neutrophils # Monocytes # (Manual) PT INR D-Dimer Heparin Anti-Xa Level ABG pH POC ABG pCO2 POC ABG pO2 ABG Hemoglobin ABG Oxyhemoglobin ABG Sodium ABG Potassium ABG Chloride ABG Glucose Carboxyhemoglobin Sodium Potassium Chloride Carbon Dioxide BUN Creatinine Glucose POC Glucose 253 H 287 H 247 H Lactic Acid Calcium Phosphorus Magnesium Ferritin Total Bilirubin Direct Bilirubin AST ALT Alkaline Phosphatase Ammonia Lactate Dehydrogenase Troponin T C-Reactive Protein Total Protein Albumin Triglycerides Cholesterol HDL Cholesterol Lipase Arterial Blood Glucose Arterial Blood Ionized Calcium Urine WBC (Auto) Salicylates Acetaminophen Coronavirus (PCR) 03/13/21 03/13/21 03/14/21 17:03 23:31 03:40 WBC RBC Hgb Hct MCV MCH RDW Seg Neutrophils % Monocytes % (Manual) Seg Neutrophils # Monocytes # (Manual) PT INR D-Dimer 475.91 H Heparin Anti-Xa Level ABG pH POC ABG pCO2 POC ABG pO2 ABG Hemoglobin ABG Oxyhemoglobin ABG Sodium ABG Potassium ABG Chloride ABG Glucose Carboxyhemoglobin Sodium Potassium Chloride Carbon Dioxide BUN Creatinine Glucose POC Glucose 228 H 275 H Lactic Acid Calcium Phosphorus Magnesium Ferritin Total Bilirubin Direct Bilirubin AST ALT Alkaline Phosphatase Ammonia Lactate Dehydrogenase Troponin T C-Reactive Protein Total Protein Albumin Triglycerides Cholesterol HDL Cholesterol Lipase Arterial Blood Glucose Arterial Blood Ionized Calcium Urine WBC (Auto) Salicylates Acetaminophen Coronavirus (PCR) 03/14/21 03/14/21 03/14/21 03:40 03:40 03:40 WBC RBC 2.25 L Hgb 7.4 L Hct 22.2 L MCV 99 H MCH 33 H RDW 18.5 H Seg Neutrophils % Monocytes % (Manual) Seg Neutrophils # Monocytes # (Manual) PT INR D-Dimer Heparin Anti-Xa Level ABG pH POC ABG pCO2 POC ABG pO2 ABG Hemoglobin ABG Oxyhemoglobin ABG Sodium ABG Potassium ABG Chloride ABG Glucose Carboxyhemoglobin Sodium Potassium 3.3 L Chloride Carbon Dioxide 37 H D BUN 24 H Creatinine 0.6 L Glucose 180 H POC Glucose Lactic Acid Calcium Phosphorus Magnesium Ferritin 3103.0 H Total Bilirubin 1.60 H Direct Bilirubin AST 283 H ALT 188 H Alkaline Phosphatase 619 H Ammonia Lactate Dehydrogenase 588 H Troponin T C-Reactive Protein 4.00 H Total Protein 4.8 L Albumin 2.2 L Triglycerides Cholesterol HDL Cholesterol Lipase Arterial Blood Glucose Arterial Blood Ionized Calcium Urine WBC (Auto) Salicylates Acetaminophen Coronavirus (PCR) 03/15/21 03/15/21 03/15/21 00:34 05:00 05:00 WBC RBC 2.40 L Hgb 7.8 L Hct 23.6 L MCV 99 H MCH 33 H RDW 18.3 H Seg Neutrophils % Monocytes % (Manual) Seg Neutrophils # Monocytes # (Manual) PT INR D-Dimer Heparin Anti-Xa Level ABG pH POC ABG pCO2 POC ABG pO2 ABG Hemoglobin ABG Oxyhemoglobin ABG Sodium ABG Potassium ABG Chloride ABG Glucose Carboxyhemoglobin Sodium Potassium Chloride Carbon Dioxide BUN Creatinine 0.6 L Glucose 238 H POC Glucose 287 H Lactic Acid Calcium 8.0 L Phosphorus Magnesium Ferritin Total Bilirubin 1.50 H Direct Bilirubin AST 189 H ALT 208 H Alkaline Phosphatase 659 H Ammonia Lactate Dehydrogenase Troponin T C-Reactive Protein Total Protein 5.1 L Albumin 2.1 L Triglycerides Cholesterol HDL Cholesterol Lipase Arterial Blood Glucose Arterial Blood Ionized Calcium Urine WBC (Auto) Salicylates Acetaminophen Coronavirus (PCR) 03/15/21 03/15/21 03/15/21 05:05 11:37 16:34 WBC RBC Hgb Hct MCV MCH RDW Seg Neutrophils % Monocytes % (Manual) Seg Neutrophils # Monocytes # (Manual) PT INR D-Dimer Heparin Anti-Xa Level ABG pH POC ABG pCO2 POC ABG pO2 ABG Hemoglobin ABG Oxyhemoglobin ABG Sodium ABG Potassium ABG Chloride ABG Glucose Carboxyhemoglobin Sodium Potassium Chloride Carbon Dioxide BUN Creatinine Glucose POC Glucose 238 H 236 H 280 H Lactic Acid Calcium Phosphorus Magnesium Ferritin Total Bilirubin Direct Bilirubin AST ALT Alkaline Phosphatase Ammonia Lactate Dehydrogenase Troponin T C-Reactive Protein Total Protein Albumin Triglycerides Cholesterol HDL Cholesterol Lipase Arterial Blood Glucose Arterial Blood Ionized Calcium Urine WBC (Auto) Salicylates Acetaminophen Coronavirus (PCR) 03/15/21 03/16/21 03/16/21 23:05 04:39 05:00 WBC RBC Hgb Hct MCV MCH RDW Seg Neutrophils % Monocytes % (Manual) Seg Neutrophils # Monocytes # (Manual) PT INR D-Dimer Heparin Anti-Xa Level ABG pH POC ABG pCO2 POC ABG pO2 ABG Hemoglobin ABG Oxyhemoglobin ABG Sodium ABG Potassium ABG Chloride ABG Glucose Carboxyhemoglobin Sodium Potassium Chloride Carbon Dioxide 33 H BUN Creatinine 0.5 L Glucose 195 H POC Glucose 336 H 205 H Lactic Acid Calcium Phosphorus Magnesium Ferritin Total Bilirubin Direct Bilirubin AST ALT Alkaline Phosphatase Ammonia Lactate Dehydrogenase Troponin T C-Reactive Protein Total Protein Albumin Triglycerides Cholesterol HDL Cholesterol Lipase Arterial Blood Glucose Arterial Blood Ionized Calcium Urine WBC (Auto) Salicylates Acetaminophen Coronavirus (PCR) 03/16/21 03/17/21 03/17/21 11:37 04:50 13:37 WBC RBC 2.52 L Hgb 8.6 L Hct 25.0 L MCV 99 H MCH 34 H RDW 18.1 H Seg Neutrophils % Monocytes % (Manual) Seg Neutrophils # Monocytes # (Manual) PT INR D-Dimer Heparin Anti-Xa Level ABG pH POC ABG pCO2 POC ABG pO2 ABG Hemoglobin ABG Oxyhemoglobin ABG Sodium ABG Potassium ABG Chloride ABG Glucose Carboxyhemoglobin Sodium Potassium Chloride Carbon Dioxide BUN Creatinine Glucose POC Glucose 222 H 113 H Lactic Acid Calcium Phosphorus Magnesium Ferritin Total Bilirubin Direct Bilirubin AST ALT Alkaline Phosphatase Ammonia Lactate Dehydrogenase Troponin T C-Reactive Protein Total Protein Albumin Triglycerides Cholesterol HDL Cholesterol Lipase Arterial Blood Glucose Arterial Blood Ionized Calcium Urine WBC (Auto) Salicylates Acetaminophen Coronavirus (PCR) 03/17/21 03/17/21 03/17/21 13:37 13:41 18:29 WBC RBC Hgb Hct MCV MCH RDW Seg Neutrophils % Monocytes % (Manual) Seg Neutrophils # Monocytes # (Manual) PT INR D-Dimer Heparin Anti-Xa Level ABG pH POC ABG pCO2 POC ABG pO2 ABG Hemoglobin ABG Oxyhemoglobin ABG Sodium ABG Potassium ABG Chloride ABG Glucose Carboxyhemoglobin Sodium Potassium 3.5 L Chloride Carbon Dioxide BUN Creatinine 0.4 L Glucose 174 H POC Glucose 176 H 180 H Lactic Acid Calcium Phosphorus Magnesium Ferritin Total Bilirubin Direct Bilirubin AST ALT Alkaline Phosphatase Ammonia Lactate Dehydrogenase Troponin T C-Reactive Protein Total Protein Albumin Triglycerides Cholesterol HDL Cholesterol Lipase Arterial Blood Glucose Arterial Blood Ionized Calcium Urine WBC (Auto) Salicylates Acetaminophen Coronavirus (PCR) 03/17/21 03/18/21 03/18/21 23:06 05:50 07:53 WBC RBC 2.46 L Hgb 7.9 L Hct 24.5 L MCV 100 H MCH RDW 18.0 H Seg Neutrophils % Monocytes % (Manual) Seg Neutrophils # Monocytes # (Manual) PT INR D-Dimer Heparin Anti-Xa Level ABG pH POC ABG pCO2 POC ABG pO2 ABG Hemoglobin ABG Oxyhemoglobin ABG Sodium ABG Potassium ABG Chloride ABG Glucose Carboxyhemoglobin Sodium Potassium Chloride Carbon Dioxide BUN Creatinine Glucose POC Glucose 127 H 108 H Lactic Acid Calcium Phosphorus Magnesium Ferritin Total Bilirubin Direct Bilirubin AST ALT Alkaline Phosphatase Ammonia Lactate Dehydrogenase Troponin T C-Reactive Protein Total Protein Albumin Triglycerides Cholesterol HDL Cholesterol Lipase Arterial Blood Glucose Arterial Blood Ionized Calcium Urine WBC (Auto) Salicylates Acetaminophen Coronavirus (PCR) 03/18/21 03/18/21 03/18/21 07:53 07:53 11:43 WBC RBC Hgb Hct MCV MCH RDW Seg Neutrophils % Monocytes % (Manual) Seg Neutrophils # Monocytes # (Manual) PT INR D-Dimer Heparin Anti-Xa Level ABG pH POC ABG pCO2 POC ABG pO2 ABG Hemoglobin ABG Oxyhemoglobin ABG Sodium ABG Potassium ABG Chloride ABG Glucose Carboxyhemoglobin Sodium Potassium Chloride Carbon Dioxide 31 H BUN Creatinine 0.4 L Glucose POC Glucose 158 H Lactic Acid Calcium 8.3 L Phosphorus Magnesium Ferritin Total Bilirubin Direct Bilirubin AST ALT Alkaline Phosphatase Ammonia Lactate Dehydrogenase Troponin T 0.185 H* C-Reactive Protein Total Protein Albumin Triglycerides Cholesterol HDL Cholesterol Lipase Arterial Blood Glucose Arterial Blood Ionized Calcium Urine WBC (Auto) Salicylates Acetaminophen Coronavirus (PCR) 03/18/21 03/18/21 03/19/21 16:36 18:03 04:48 WBC RBC Hgb Hct MCV MCH RDW Seg Neutrophils % Monocytes % (Manual) Seg Neutrophils # Monocytes # (Manual) PT INR D-Dimer Heparin Anti-Xa Level ABG pH POC ABG pCO2 POC ABG pO2 ABG Hemoglobin ABG Oxyhemoglobin ABG Sodium ABG Potassium ABG Chloride ABG Glucose Carboxyhemoglobin Sodium Potassium Chloride Carbon Dioxide BUN Creatinine Glucose POC Glucose 133 H 130 H 107 H Lactic Acid Calcium Phosphorus Magnesium Ferritin Total Bilirubin Direct Bilirubin AST ALT Alkaline Phosphatase Ammonia Lactate Dehydrogenase Troponin T C-Reactive Protein Total Protein Albumin Triglycerides Cholesterol HDL Cholesterol Lipase Arterial Blood Glucose Arterial Blood Ionized Calcium Urine WBC (Auto) Salicylates Acetaminophen Coronavirus (PCR) 03/19/21 03/19/21 03/20/21 12:47 22:05 13:05 WBC RBC Hgb Hct MCV MCH RDW Seg Neutrophils % Monocytes % (Manual) Seg Neutrophils # Monocytes # (Manual) PT INR D-Dimer Heparin Anti-Xa Level ABG pH POC ABG pCO2 POC ABG pO2 ABG Hemoglobin ABG Oxyhemoglobin ABG Sodium ABG Potassium ABG Chloride ABG Glucose Carboxyhemoglobin Sodium Potassium Chloride Carbon Dioxide BUN Creatinine Glucose POC Glucose 121 H 123 H 116 H Lactic Acid Calcium Phosphorus Magnesium Ferritin Total Bilirubin Direct Bilirubin AST ALT Alkaline Phosphatase Ammonia Lactate Dehydrogenase Troponin T C-Reactive Protein Total Protein Albumin Triglycerides Cholesterol HDL Cholesterol Lipase Arterial Blood Glucose Arterial Blood Ionized Calcium Urine WBC (Auto) Salicylates Acetaminophen Coronavirus (PCR) 03/20/21 03/21/21 03/21/21 16:47 06:46 10:30 WBC RBC Hgb Hct MCV MCH RDW Seg Neutrophils % Monocytes % (Manual) Seg Neutrophils # Monocytes # (Manual) PT INR D-Dimer Heparin Anti-Xa Level ABG pH POC ABG pCO2 POC ABG pO2 ABG Hemoglobin ABG Oxyhemoglobin ABG Sodium ABG Potassium ABG Chloride ABG Glucose Carboxyhemoglobin Sodium Potassium Chloride Carbon Dioxide BUN Creatinine Glucose POC Glucose 112 H 117 H Lactic Acid Calcium Phosphorus Magnesium Ferritin Total Bilirubin Direct Bilirubin AST ALT Alkaline Phosphatase Ammonia Lactate Dehydrogenase Troponin T C-Reactive Protein Total Protein Albumin Triglycerides Cholesterol HDL Cholesterol Lipase Arterial Blood Glucose Arterial Blood Ionized Calcium Urine WBC (Auto) Salicylates Acetaminophen Coronavirus (PCR) Positive A 03/21/21 03/21/21 03/21/21 11:46 13:30 16:50 WBC RBC Hgb Hct MCV MCH RDW Seg Neutrophils % Monocytes % (Manual) Seg Neutrophils # Monocytes # (Manual) PT INR D-Dimer Heparin Anti-Xa Level ABG pH POC ABG pCO2 POC ABG pO2 ABG Hemoglobin ABG Oxyhemoglobin ABG Sodium ABG Potassium ABG Chloride ABG Glucose Carboxyhemoglobin Sodium 136 L D Potassium 3.2 L Chloride 95.9 L Carbon Dioxide BUN Creatinine 0.4 L Glucose 105 H POC Glucose 107 H 106 H Lactic Acid Calcium 7.9 L Phosphorus Magnesium Ferritin Total Bilirubin Direct Bilirubin AST ALT Alkaline Phosphatase Ammonia Lactate Dehydrogenase Troponin T C-Reactive Protein Total Protein Albumin Triglycerides Cholesterol HDL Cholesterol Lipase Arterial Blood Glucose Arterial Blood Ionized Calcium Urine WBC (Auto) Salicylates Acetaminophen Coronavirus (PCR) 03/21/21 03/22/21 03/22/21 21:26 06:30 09:55 WBC RBC Hgb Hct MCV MCH RDW Seg Neutrophils % Monocytes % (Manual) Seg Neutrophils # Monocytes # (Manual) PT INR D-Dimer Heparin Anti-Xa Level ABG pH POC ABG pCO2 POC ABG pO2 ABG Hemoglobin ABG Oxyhemoglobin ABG Sodium ABG Potassium ABG Chloride ABG Glucose Carboxyhemoglobin Sodium Potassium 2.7 L* Chloride Carbon Dioxide BUN Creatinine 0.6 L Glucose POC Glucose 113 H Lactic Acid Calcium 7.7 L Phosphorus Magnesium 1.60 L Ferritin Total Bilirubin Direct Bilirubin AST ALT Alkaline Phosphatase Ammonia Lactate Dehydrogenase Troponin T C-Reactive Protein Total Protein Albumin Triglycerides Cholesterol HDL Cholesterol Lipase Arterial Blood Glucose Arterial Blood Ionized Calcium Urine WBC (Auto) Salicylates Acetaminophen Coronavirus (PCR) 03/22/21 12:27 WBC RBC Hgb Hct MCV MCH RDW Seg Neutrophils % Monocytes % (Manual) Seg Neutrophils # Monocytes # (Manual) PT INR D-Dimer Heparin Anti-Xa Level ABG pH POC ABG pCO2 POC ABG pO2 ABG Hemoglobin ABG Oxyhemoglobin ABG Sodium ABG Potassium ABG Chloride ABG Glucose Carboxyhemoglobin Sodium Potassium Chloride Carbon Dioxide BUN Creatinine Glucose POC Glucose 110 H Lactic Acid Calcium Phosphorus Magnesium Ferritin Total Bilirubin Direct Bilirubin AST ALT Alkaline Phosphatase Ammonia Lactate Dehydrogenase Troponin T C-Reactive Protein Total Protein Albumin Triglycerides Cholesterol HDL Cholesterol Lipase Arterial Blood Glucose Arterial Blood Ionized Calcium Urine WBC (Auto) Salicylates Acetaminophen Coronavirus (PCR) Allied health notes reviewed: nursing
[2021-03-22] MEDS: POTASSIUM CHLORIDE 10 MEQ 10 MEQ/100 ML BAG IV SCH ×2 (16:08→17:38)
[2021-03-22] MEDS ORDERED: MAGNESIUM SULFATE 2 GM/50 ML BAG IV ONE (20:00)
[2021-03-23] MEDS: CALCIUM CARB/VIT D3/MINERALS 600 MG/800 UNITS TAB PO SCH ×3 (00:25→23:40)
[2021-03-23] MEDS: SENNOSIDES/DOCUSATE SODIUM 8.6/50 MG TAB FEEDTUBE SCH ×3 (00:25→23:39)
[2021-03-23] MEDS: guaiFENesin ER 600 MG TAB PO SCH ×3 (00:25→23:40)
[2021-03-23] MEDS: clonazePAM 0.5 MG TAB PO PRN (00:26)
[2021-03-23] MEDS: ZINC SULFATE 220 MG CAP PO SCH ×2 (00:26→09:01)
[2021-03-23] MEDS: ASCORBIC ACID 500 MG TAB PO SCH ×3 (00:26→23:40)
[2021-03-23] MEDS: ZOLPIDEM 5 MG TAB PO PRN (00:26)
[2021-03-23] MEDS: PREGABALIN 50 MG CAP PO SCH ×4 (00:26→23:40)
[2021-03-23] MEDS: ENOXAPARIN 150 MG/1 ML INJ SUB-Q SCH ×3 (00:27→23:40)
[2021-03-23] MEDS: INSULIN GLARGINE 100 UNITS/ML SUB-Q SCH ×2 (00:27→23:44)
[2021-03-23] MEDS: INSULIN REGULAR, HUMAN 100 UNITS/1 ML SUB-Q SCH ×2 (00:28→06:19)
[2021-03-23] MEDS: FAMOTIDINE 20 MG TAB PO SCH ×3 (00:31→23:40)
[2021-03-23] MEDS: POTASSIUM CHLORIDE 10 MEQ 10 MEQ/100 ML BAG IV SCH ×3 (01:46→04:42)
[2021-03-23] MEDS: ASPIRIN 81 MG TAB CHEW PO SCH (09:01)
[2021-03-23] MEDS: CHOLECALCIFEROL (VIT D3) 5,000 UNIT TAB PO SCH (09:01)
[2021-03-23] MEDS: FUROSEMIDE 40 MG TAB PO SCH (09:01)
--- NOTE | 2021-03-23 09:58 | Progress Note ---
Assessment and Plan Assessment and plan: This is a a 51 year old male admitted for for severe sepsis, respiratory failure, pneumonia and ALPHONSO. PMH: COPD, CHF, DM, DVT/PE, HTN, KAM, obesity, asthma PSx: none reported home meds: albuterol sulfate, advair, HCTZ, atrovent, glucophage, Klor-Con, midodrine, metoprolol, lasix, lantus, coumadin (from audit and home meds reconciliation) Social: unknown A/P Neuro: Metabolic encephalopathy -Resolving -Now extbated Cardio: SR/ST: Acute on Chronic HFpEF (per cards), NSTEMI, h/o HTN, HLD, Prolonged QTc, SVT -Cardiology consulted, appreciate recommendations -midodrine d/c r/t HTN -BP monitoring per protocol -Labetalol PO -Per cardiology: 1. gentle IV diuresis when able 2. Echo 12/13/2020 - EF 55-60%, otherwise technically difficult study. Echo 05/2016 - LV mildly dilated, EF 55-60%, grade II diastolic dysfxn, RV mildly enlarged, normal RV sys fxn, LA mildly dilated, RA mildly dilated, mild-mod AR, mild NM, mild aortic root dilatation. Resp: Acute on chronic hypoxic respiratory failure, Bilateral PNA, hx COPD, KAM, asthma, ?PE -CCM consulted, appreciate recommendations -MV, wean as tolerated -Intubated 03/01, tube exchange 03/09 OETT 8/0 @ 25 lip -nOW EXTUBATED 03/10 -Continuos SPO2 monitoring -abx with levaquin (03/02-03/07)-DC 03/05 r/t prolonged QTc -03/01 CT chest shows several pulmonary nodules within Right lung measuring 6-8 mm, increased interstitial prominence -? f/u outpt with PCP/pulmanology -03/10 CXR reviewed GI: Transaminitis, TF -GI consulted, appreciate recommendations -Trend LFTs -RUQ US shows no evidence of cholelithiasis, cholecytitis or choledocholithisis -CT abd/pelvis showed fatty infiltration of liver -Ntr consult for TF -PPI -BR [place] -last BM 03/06 -24 hr net (-) 225 : ALPHONSO (stable/resolved) -Nephrology consulted, appreciate recommendations -Pt was on HD at recent hospitalization at OSH -Renally dose mediations -Avoid nephrotoxic medications -Strict I&Os -Renal US shows no significant abnormality -Daily weights -Replete electrolytes -Trend BMP -s/p lasix x 2, prn hydral -Trial lasix again today Heme: DVT-R posterior tibial vein, h/o LLE DVT (December 2019)/ PE (failed Xa inhibitors per cards; on home coumadin) -evidenced on BLE Doppler US -Heparin gtt d/c to lovenox subq (03/09) -SCDs while in bed -Per cards: Eventually plan to transition to Coumadin ID: Severe Sepsis, B PNA, COVID 19 infection -s/p abx therapy (azithromycin 03/01-03/02, aztreonam 03/02, cefepime 03/01-03/02, levaquin 03/02-03/05, flagyl 03/01-03/02, vancomycin 03/01-03/02) -VAP bundle -MRSA (+) nares -COVID 19 PCR (+) -Decadron for 10 days (03/06-03/15) -Remdesivir (03/06-03/10) -Contact/Droplet precautions -03/01 BCx2 with NGTD, UC with NGTD, sputum culture normal sole -03/06 BC NGTD -Prone if needed -Vit C/D/Zinc Endo: DM -SSI, lantus (titrate as needed) -Accuchecks q6 -Avoid hypoglycemia FEN: Hypokalemia, Hypomagenesmia- Replace lines: condom cath, PIV, RADHA Disposition: ICU Full code The high probability of a clinically significant, sudden or life threatening deterioration of the [multi] system(s) required my full and direct attention, intervention and personal management. The aggregate critical care time was [40] minutes. This time is in addition to time spent performing reported procedures but includes the following: [x] Data Review and interpretation [x] Patient assessment and monitoring of vital signs [x] Documentation [x] Medication orders and management History Interval history: This is a 51-year-old -Greek male with COPD with chronic respiratory failure, CHFpEF, diabetes mellitus, DVT/PE on coumadin and hypertension who p resented to [facility] via EMS for AMS and hypoxia. On arrival of EMS oxygen saturation was about 88% on room air, blood pressure was said to be about 88/50 mmHg. Work-up in the emergency room reveals leukocytosis of 12.7, hemoglobin of 9.1 and hematocrit of 27.7, sodium of 132, lactic acid of 2.90, elevated liver enzymes and elevated troponin at 0.493. A CT of the chest showed findings concerning for atelectasis and or infiltrate, CT of the head was unremarkable. Patient was in severe respiratory distress upon arrival in the emergency room and subsequently intubated. Patient was admitted to the hospitalist service with consults to cardiology, CCM, GI, and neprohology for severe sepsis, respiratory failure, pneumonia and ALPHONSO. Of note patient was admitted to [facility] from 12/12-01/14 and was on HD during that admit. 03/03/21: Patient remains intubated, continue on heparin drip, monitor H&H and BMP. Continue empiric antibiotics, ID following. Follow ammonia level and LFT. According to cardiology patient indeed had preserved EF during his recent admission to [place]. Plan to repeat 2D echo. Critical care following, wean off from vent as tolerated. 03/04: RN reported blood y secretions in OETT and clots, heparin gtt stopped and B LE US obtained which shows DVT, abx deescalated, heparin gtt restarted. 03/05: RN reported vomiting x1, promithazine x1 given, Qtc at 599 on EKG. AM labs pending. tmax 102.2, reculture with next spike, COVID 19 PCR. abx stopped re prolonged qtc and received CAP coverage. 03/06: Reported high TF residual, COVID PCR pending. Cr better today. tmax 100.7 03/07: radha placed yesterday, started on remdesivir re positive covid. ID consulted yesterday. SHERYL overnight. 03/08: SHERYL reported overnight. Patient is now hypertensive and midodrine has been held. Will now place on low dose antihtn and prn hydral. 03/09: Patient reportedly through tube and OETT was exchanged, patient was given paralytic for exchange. No acute events reported overnight. Patient noted to be hypertensive and we will trial Lasix again today. 03/10: PSV trial today. fentayl was stopped. BP maintaining. SHEYRL overnight. 03/11: Patient was extuabted, awaiting Speech therapy, discussed with nursing staff at bedside, considering Hypertensive urgency, will do a bedside swallow eval and give oral meds if passed. Continue aspiration precautions. The patient has hx of Asthma, continue neb treatment. 03/12: Patient remains in ICU care secondary to SVT and unstable hemodynamics. Cardiology reevaluated patient was given adenosine and started on amnio drip. Still awaiting speech therapy evaluation although considering her current condition we will keep the patient n.p.o. Case discussed with engine inspector and diabetes clinical manager. Monitor electrolytes and correct as needed. 03/13: Patient this morning remains in normal sinus rhythm following the adenosine and amnio drip which is still going the latter I mean. I will start the patient on Lasix for 3 days and monitor her renal function. Patient is already on high dose of dexamethasone considering his history of bronchospasm disease. We will repeat a pulmonary evaluation we will correct electrolytes especially with the Lasix. CCT 35 pLAN DISCUSSED WITH THE PATIENT AND NURSE 03/14: Patient unfortunately is declining continues on high flow -70% intermittent altered mental status refusing all treatment plan. Psych saw the patient recommended Geodon as needed. Will transition some medications to IV. Continue encouraging patient to use BiPAP. Continue nebulizer treatment and steroid therapy. Pulmonary and cardiology input also appreciated. 03/15: Patient seen and examined, continue to wean oxygen flow as tolerated, Electrolytes replacement protocol inplace, LFT still elevated but trending down some. Again counselling provided to the patient about compliance. Adjust insulin. 03/16: Patient down to 50% FiO2 was saturating 92%. [facility] transfer to [facility]. Clinically he is showing some improvement. Continue restraints for supportive care continue to monitor for intermittent delirium. 03/17: Patient still with intermittent delirium sometimes refusing medication. Restraints has been renewed for safety as he did take off his oxygen yesterday and desatted to the 70s. His saturation is back to 90-92% with FiO2 of 50% of the high flow. Continue supportive care pulmonary input and ID input noted. 03/18: Continue full supportive care, ideally prone if able, called to update family, continue supportive care, patient treated with -IV/PO Dexamethasone 10 mg daily x 10 days, higher dose due to morbid obesity. Ended 03/15/2021 -Completed Remdesivir still high risk due to hypoxia treatment being complicated by the delirium 03/19; patient is on 30 L of high flow oxygen with FiO2 of 96%. Patient completed remdesivir and Decadron. Patient is still high risk because of hypoxia. Patient has right posterior tibial vein occlusive thrombus and on therapeutic Lovenox. 03/20; on 25 L of high flow oxygen with FiO2 of 45%. Completed Decadron and remdesivir. Patient has DVT and on therapeutic Lovenox. Discussed with case management for possible LTAC placement. 03/21; patient is on 25 L of high flow oxygen. Completed remdesivir and Decadron. Patient did have any urine output and we are going to check bladder scan and give him Lasix 80 mg IV 1 times. Patient is on p.o. Lasix 80 mg daily. Echo was done and was unremarkable. Case management is working to find LTAC place for him. Patient accepted by [facility] pending authorization. 03/22; patient is on 20 L of high flow oxygen with FiO2 of 60%. Patient has severe hypokalemia and was given IV potassium and will check potassium level and repleted according to electrolyte replacement protocol. Patient accepted by [facility] pending authorization. 03/23; patient is on 20 L of high flow oxygen with FiO2 of 60%. Patient has severe hypokalemia and was given IV potassium and will check potassium level and repleted according to electrolyte replacement protocol. Patient accepted by [facility] pending authorization. History Interval history: Patient was seen and evaluated this morning Patient was on 20 L of high flow oxygen with FiO2 of 60 % Patient was alert and oriented Hospitalist Physical - Physical exam Narrative exam: Patient is on 20 L high flow oxygen with FiO2 of 96% The patient is morbidly obese. Vital signs as documented. Head exam is unremarkable. No scleral icterus . Neck is without jugular venous distension, thyromegaly, or carotid bruits. Lungs decreased air entry. Cardiac exam reveals regular rate and Rhythm. Abdominal exam reveals normal bowel sounds, nontender, no organomegaly. Extremities bilateral lower extremity edema. BACK TENDER CYLINDER: Alert and oriented x3. Moves extremities. - Constitutional Vitals: Temp Pulse Resp BP Pulse Ox 98.6 F 117 H 18 109/43 91 03/23/21 06:05 03/23/21 06:05 03/23/21 06:05 03/23/21 06:05 03/23/21 06:05 General appearance: Present: no acute distress, well-nourished, obese, other (sedated) HEART Score - HEART Score Troponin: Troponin T 0.185 ng/mL (0.00-0.029) H* 03/18/21 07:53 Results - Labs CBC & Chem 7: 03/18/21 07:53 03/22/21 14:44 Labs: Laboratory Last Values WBC 8.6 K/mm3 (4.5-11.0) 03/18/21 07:53 RBC 2.46 M/mm3 (3.65-5.03) L 03/18/21 07:53 Hgb 7.9 gm/dl (11.8-15.2) L 03/18/21 07:53 Hct 24.5 % (35.5-45.6) L 03/18/21 07:53 MCV 100 fl (84-94) H 03/18/21 07:53 MCH 32 pg (28-32) 03/18/21 07:53 MCHC 32 % (32-34) 03/18/21 07:53 RDW 18.0 % (13.2-15.2) H 03/18/21 07:53 Plt Count 294 K/mm3 (140-440) 03/18/21 07:53 Lymph % (Auto) 22.4 % (13.4-35.0) 03/06/21 05:20 Terry % (Auto) 4.5 % (0.0-7.3) 03/06/21 05:20 Eos % (Auto) 0.2 % (0.0-4.3) 03/06/21 05:20 Baso % (Auto) 0.3 % (0.0-1.8) 03/06/21 05:20 Lymph # (Auto) 3.4 K/mm3 (1.2-5.4) 03/06/21 05:20 Terry # (Auto) 0.7 K/mm3 (0.0-0.8) 03/06/21 05:20 Eos # (Auto) 0.0 K/mm3 (0.0-0.4) 03/06/21 05:20 Baso # (Auto) 0.1 K/mm3 (0.0-0.1) 03/06/21 05:20 Add Manual Diff Complete 03/01/21 19:21 Total Counted 100 03/01/21 19:21 Seg Neutrophils % 72.6 % (40.0-70.0) H 03/06/21 05:20 Seg Neuts % (Manual) 49.0 % (40.0-70.0) 03/01/21 19:21 Lymphocytes % (Manual) 32.0 % (13.4-35.0) 03/01/21 19:21 Monocytes % (Manual) 17.0 % (0.0-7.3) H 03/01/21 19:21 Eosinophils % (Manual) 1.0 % (0.0-4.3) 03/01/21 19:21 Basophils % (Manual) 1.0 % (0.0-1.8) 03/01/21 19:21 Nucleated RBC % Not Reportable 03/01/21 19:21 Seg Neutrophils # 11.1 K/mm3 (1.8-7.7) H 03/06/21 05:20 Seg Neutrophils # Man 6.2 K/mm3 (1.8-7.7) 03/01/21 19:21 Band Neutrophils # 0.0 K/mm3 03/01/21 19:21 Lymphocytes # (Manual) 4.1 K/mm3 (1.2-5.4) 03/01/21 19:21 Abs React Lymphs (Man) 0.0 K/mm3 03/01/21 19:21 Monocytes # (Manual) 2.2 K/mm3 (0.0-0.8) H 03/01/21 19:21 Eosinophils # (Manual) 0.1 K/mm3 (0.0-0.4) 03/01/21 19:21 Basophils # (Manual) 0.1 K/mm3 (0.0-0.1) 03/01/21 19:21 Metamyelocytes # 0.0 K/mm3 03/01/21 19:21 Myelocytes # 0.0 K/mm3 03/01/21 19:21 Promyelocytes # 0.0 K/mm3 03/01/21 19:21 Blast Cells # 0.0 K/mm3 03/01/21 19:21 WBC Morphology Not Reportable 03/01/21 19:21 Hypersegmented Neuts Not Reportable 03/01/21 19:21 Hyposegmented Neuts Not Reportable 03/01/21 19:21 Hypogranular Neuts Not Reportable 03/01/21 19:21 Smudge Cells Not Reportable 03/01/21 19:21 Toxic Granulation Not Reportable 03/01/21 19:21 Toxic Vacuolation Not Reportable 03/01/21 19:21 Dohle Bodies Not Reportable 03/01/21 19:21 Pelger-Huet Anomaly Not Reportable 03/01/21 19:21 Katherine Rods Not Reportable 03/01/21 19:21 Platelet Estimate Not Reportable 03/01/21 19:21 Clumped Platelets Not Reportable 03/01/21 19:21 Plt Clumps, EDTA Not Reportable 03/01/21 19:21 Large Platelets Not Reportable 03/01/21 19:21 Giant Platelets Not Reportable 03/01/21 19:21 Platelet Satelliting Not Reportable 03/01/21 19:21 Plt Morphology Comment Not Reportable 03/01/21 19:21 RBC Morphology Not Reportable 03/01/21 19:21 Dimorphic RBCs Not Reportable 03/01/21 19:21 Polychromasia Not Reportable 03/01/21 19:21 Hypochromasia Not Reportable 03/01/21 19:21 Poikilocytosis Not Reportable 03/01/21 19:21 Anisocytosis Rare 03/01/21 19:21 Microcytosis Not Reportable 03/01/21 19:21 Macrocytosis Not Reportable 03/01/21 19:21 Spherocytes Not Reportable 03/01/21 19:21 Pappenheimer Bodies Not Reportable 03/01/21 19:21 Sickle Cells Not Reportable 03/01/21 19:21 Target Cells Not Reportable 03/01/21 19:21 Tear Drop Cells Not Reportable 03/01/21 19:21 Ovalocytes Not Reportable 03/01/21 19:21 Helmet Cells Not Reportable 03/01/21 19:21 [place] Bodies Not Reportable 03/01/21 19:21 [place] Rings Not Reportable 03/01/21 19:21 Dusty Cells Not Reportable 03/01/21 19:21 Bite Cells Not Reportable 03/01/21 19:21 Crenated Cell Not Reportable 03/01/21 19:21 Elliptocytes Not Reportable 03/01/21 19:21 Acanthocytes (Spur) Not Reportable 03/01/21 19:21 Rouleaux Not Reportable 03/01/21 19:21 Hemoglobin C Crystals Not Reportable 03/01/21 19:21 Schistocytes Few 03/01/21 19:21 Malaria parasites Not Reportable 03/01/21 19:21 Henry Bodies Not Reportable 03/01/21 19:21 Hem Pathologist Commnt No 03/01/21 19:21 PT 15.6 Sec. (12.2-14.9) H 03/04/21 10:17 INR 1.18 (0.87-1.13) H 03/04/21 10:17 APTT 36.6 Sec. (24.2-36.6) 03/02/21 16:28 D-Dimer 475.91 ng/mlDDU (0-234) H 03/14/21 03:40 Heparin Anti-Xa Level 0.64 U.I./ml (0.3-0.7) 03/08/21 10:30 ABG pH 7.487 (7.320-7.450) H 03/10/21 12:33 POC ABG pCO2 40.4 mmHg (32.0-48.0) 03/10/21 12:33 POC ABG pO2 62.1 mmHg (83-108) L 03/10/21 12:33 POC ABG HCO3 29.9 03/10/21 12:33 ABG O2 Saturation 90.2 (0-100) 03/10/21 12:33 POC ABG Base Excess 6.0 03/10/21 12:33 ABG Hemoglobin 9.4 (12.0-17.5) L 03/10/21 12:33 ABG Oxyhemoglobin 89.7 (94-98) L 03/10/21 12:33 ABG Methemoglobin 0.3 (0.0-1.5) 03/10/21 12:33 ABG Sodium 138.7 mmol/L (136.0-145.0) 03/10/21 12:33 ABG Potassium 3.7 mmol/L (3.40-4.50) 03/10/21 12:33 ABG Chloride 104.0 mmol/L (98-107) 03/10/21 12:33 ABG Glucose 350 mg/dL (65-95) H 03/10/21 12:33 Carboxyhemoglobin 0.2 (0.5-1.5) L 03/10/21 12:33 FiO2 % 35.0 03/10/21 12:33 Sodium 139 mmol/L (137-145) 03/22/21 06:30 Potassium 2.9 mmol/L (3.6-5.0) L* 03/22/21 14:44 Chloride 101.1 mmol/L (98-107) 03/22/21 06:30 Carbon Dioxide 29 mmol/L (22-30) 03/22/21 06:30 Anion Gap 12 mmol/L 03/22/21 06:30 BUN 11 mg/dL (9-20) 03/22/21 06:30 Creatinine 0.6 mg/dL (0.8-1.3) L 03/22/21 06:30 Estimated GFR > 60 ml/min 03/22/21 06:30 BUN/Creatinine Ratio 18 % 03/22/21 06:30 Glucose 88 mg/dL (75-100) 03/22/21 06:30 POC Glucose 92 mg/dL (70-105) 03/23/21 07:35 Lactic Acid 1.70 mmol/L (0.7-2.0) 03/04/21 10:17 Calcium 7.7 mg/dL (8.4-10.2) L 03/22/21 06:30 Phosphorus 2.60 mg/dL (2.5-4.5) 03/16/21 05:00 Magnesium 1.60 mg/dL (1.7-2.3) L 03/22/21 09:55 Ferritin 3103.0 ng/mL (30.0-300.0) H 03/14/21 03:40 Total Bilirubin 1.50 mg/dL (0.1-1.2) H 03/15/21 05:00 Direct Bilirubin 0.6 mg/dL (0-0.2) H 03/04/21 05:26 Indirect Bilirubin 0.2 mg/dL 03/04/21 05:26 AST 189 units/L (5-40) H 03/15/21 05:00 ALT 208 units/L (7-56) H 03/15/21 05:00 Alkaline Phosphatase 659 units/L (35-129) H 03/15/21 05:00 Ammonia 71.0 umol/L (25-60) H 03/01/21 19:21 Lactate Dehydrogenase 588 units/L (91-180) H 03/14/21 03:40 Troponin T 0.185 ng/mL (0.00-0.029) H* 03/18/21 07:53 C-Reactive Protein 4.00 mg/dL (0.00-1.30) H 03/14/21 03:40 Total Protein 5.1 g/dL (6.3-8.2) L 03/15/21 05:00 Albumin 2.1 g/dL (3.9-5) L 03/15/21 05:00 Albumin/Globulin Ratio 0.7 % 03/15/21 05:00 Triglycerides 400 mg/dL (2-149) H 03/01/21 19:21 Cholesterol 232 mg/dL (50-199) H 03/01/21 19:21 LDL Cholesterol Direct 130 mg/dL (50-130) 03/01/21 19:21 HDL Cholesterol 22 mg/dL (40-59) L 03/01/21 19:21 Cholesterol/HDL Ratio 10.54 % 03/01/21 19:21 Lipase 78 units/L (13-60) H 03/04/21 10:17 Procalcitonin 1.18 ng/mL (<0.15) 03/08/21 06:10 TSH 1.840 mlU/mL (0.270-4.200) 03/03/21 04:06 Arterial Blood Glucose 350 mg/dL (65-95) H 03/10/21 12:33 Arterial Blood Ionized Calcium 4.6 mg/dL (4.6-5.3) 03/10/21 12:33 Urine Color [place] (Yellow) 03/21/21 Unknown Urine Turbidity Clear (Clear) 03/21/21 Unknown Urine pH 5.0 (5.0-7.0) 03/21/21 Unknown Ur Specific [place] 1.019 (1.003-1.030) 03/21/21 Unknown Urine Protein 100 mg/dl mg/dL (Negative) 03/21/21 Unknown Urine Glucose (UA) Neg mg/dL (Negative) 03/21/21 Unknown Urine Ketones Neg mg/dL (Negative) 03/21/21 Unknown Urine Blood Neg (Negative) 03/21/21 Unknown Urine Nitrite Neg (Negative) 03/21/21 Unknown Urine Bilirubin Neg (Negative) 03/21/21 Unknown Urine Urobilinogen 4.0 mg/dL (<2.0) 03/21/21 Unknown Ur Leukocyte Esterase Neg (Negative) 03/21/21 Unknown Urine WBC (Auto) 4.0 /HPF (0.0-6.0) 03/21/21 Unknown Urine RBC (Auto) 2.0 /HPF (0.0-6.0) 03/21/21 Unknown U Epithel Cells (Auto) 5.0 /HPF (0-13.0) 03/06/21 14:34 Urine Bacteria (Auto) 2+ /HPF (Negative) 03/06/21 14:34 Hyaline Casts 22 /LPF 03/21/21 Unknown Urine Mucus 1+ /HPF 03/21/21 Unknown Urine Yeast (Budding) Few /HPF 03/01/21 21:40 Urine Sperm 3+ /HPF (NEURORADIOLOGIST) 03/06/21 14:34 Nasal Screen MRSA (PCR) Positive (Negative) 03/02/21 05:00 Salicylates < 0.3 mg/dL (2.8-20.0) L 03/01/21 19:21 Urine Opiates Screen Positive 03/01/21 21:40 Urine Methadone Screen Negative 03/01/21 21:40 Acetaminophen 5.0 ug/mL (10.0-30.0) L 03/01/21 19:21 Ur Barbiturates Screen Negative 03/01/21 21:40 Ur Phencyclidine Scrn Negative 03/01/21 21:40 Ur Amphetamines Screen Negative 03/01/21 21:40 U Benzodiazepines Scrn Negative 03/01/21 21:40 Urine Cocaine Screen Negative 03/01/21 21:40 U Marijuana (THC) Screen Negative 03/01/21 21:40 Drugs of Abuse Note Disclamer 03/01/21 21:40 KARLA Screen Negative (Negative) 03/03/21 04:06 Coronavirus (PCR) Positive (Negative) A 03/21/21 10:30 Blood Type O POSITIVE 03/01/21 19:21 Antibody Screen Negative 03/01/21 19:21 Vilchis/IV: Voiding Method Condom Catheter Active Medications - Current Medications Current Medications: Generic Name Dose Route Start Last Admin Trade Name Freq PRN Reason Stop Dose Admin Acetaminophen 650 mg 03/20/21 23:43 03/21/21 05:54 Acetaminophen 325 Mg Tab PO 650 mg Q4H PRN Administration Pain, Mild (1-3) Albuterol 2 puff 03/20/21 23:05 Albuterol 8.5 Gm Mdi Inhalation IH Q4HRT PRN Shortness Of Breath Lipase/Protease/Amylase 1 each 03/03/21 10:53 Lipase 10,500/Protease 25,000/Amylase 43,750 (Units) Dr Gutierrez FEEDTUBE PRN PRN For Clogged Feeding Tube Ascorbic Acid 500 mg 03/06/21 22:00 03/23/21 09:01 Ascorbic Acid 500 Mg Tab PO 500 mg BID KYLE Administration Aspirin 81 mg 03/04/21 10:00 03/23/21 09:01 Aspirin 81 Mg Tab Chew PO 81 mg QDAY KYLE Administration Cholecalciferol 5,000 unit 03/17/21 11:00 03/23/21 09:01 Cholecalciferol (Vit D3) 5,000 Unit Tab PO 5,000 unit QDAY KYLE Administration Clonazepam 0.5 mg 03/16/21 12:43 03/23/21 00:26 Clonazepam 0.5 Mg Tab PO 0.5 mg BID PRN Administration Anxiety Dextrose 50 ml 03/02/21 11:38 Dextrose 50% In Water (25gm) 50 Ml Syringe IV Q30MIN PRN Hypoglycemia Protocol Diltiazem HCl 90 mg 03/20/21 12:00 03/23/21 06:21 Diltiazem 90 Mg Tab PO 90 mg Q6HR KYLE Administration Enoxaparin Sodium 130 mg 03/09/21 11:00 03/23/21 09:02 Enoxaparin 150 Mg/1 Ml Inj SUB-Q 130 mg Q12HR KYLE Administration Protocol Famotidine 20 mg 03/04/21 10:00 03/23/21 09:01 Famotidine 20 Mg Tab PO 20 mg BID KYLE Administration Furosemide 80 mg 03/17/21 11:00 03/23/21 09:01 Furosemide 40 Mg Tab PO 80 mg QDAY KYLE Administration Guaifenesin 600 mg 03/11/21 22:00 03/23/21 09:01 Guaifenesin Er 600 Mg Tab PO 600 mg BID KYLE Administration Hydralazine HCl 10 mg 03/09/21 08:21 03/11/21 22:03 Hydralazine 20 Mg/1 Ml Inj IV 10 mg Q4H PRN Administration Hypertension Hydrophilic Ointment 1 applic 03/02/21 15:42 Lip Therapy Vaseline TP Q2H PRN Dry Lips Sodium Chloride 1,000 mls @ 1 mls/hr 03/06/21 18:11 Nacl 0.9% 500 Ml IV DIRECT PRN ARTERIAL LINE FLUSH Insulin Glargine 30 units 03/16/21 22:00 03/23/21 00:27 Insulin Glargine 100 Units/Ml SUB-Q Not Given QHS [facility] Insulin Human Regular 0 units 03/10/21 18:00 03/23/21 06:19 Insulin Regular, Human 100 Units/1 Ml SUB-Q Not Given Q6HR [facility] Protocol Magnesium Hydroxide 30 ml 03/02/21 00:18 Magnesium Hydroxide (Mom) Oral Liqd Udc PO Q4H PRN Constipation Metoprolol Tartrate 5 mg 03/12/21 14:15 03/12/21 14:40 Metoprolol Tartrate 5 Mg/5 Ml Inj IV 5 mg Q6HR PRN Administration Tachyarrhythmias Miscellaneous Medication 145 mcg 03/17/21 10:00 Linaclotide [Linzess] PO QDAY [facility] Morphine Sulfate 2 mg 03/20/21 23:44 Morphine 2 Mg/1 Ml Inj IV Q4H PRN Pain, Moderate (4-6) Multi-Ingred Cream/Lotion/Oil/Oint 1 applic 03/02/21 15:42 Mineral Oil/Petrolatum, White Ophth Oint 3.5 Gm OU Q4HR PRN Dry Eye(s) Multivitamins/Minerals 1 each 03/03/21 22:00 03/23/21 09:01 Calcium Carb/Vit D3/Minerals 600 Mg/800 Units Tab PO 1 each BID KYLE Administration Pregabalin 50 mg 03/17/21 14:00 03/23/21 09:00 Pregabalin 50 Mg Cap PO 50 mg TID KYLE Administration Senna/Docusate Sodium 1 tab 03/02/21 22:00 03/23/21 09:01 Sennosides/Docusate Sodium 8.6/50 Mg Tab FEEDTUBE 1 tab BID KYLE Administration Simple Syrup 15 ml 03/03/21 10:53 Simple Syrup 15 Ml FEEDTUBE PRN PRN Hypoglycemia Simple Syrup 30 ml 03/03/21 10:53 Simple Syrup 15 Ml FEEDTUBE PRN PRN Hypoglycemia Sodium Bicarbonate 325 mg 03/03/21 10:53 Sodium Bicarbonate 325 Mg Tab FEEDTUBE PRN PRN For Clogged Feeding Tube Sodium Chloride 10 ml 03/02/21 10:00 03/23/21 09:02 Sodium Chloride 0.9% 10 Ml Flush Syringe IV 10 ml BID KYLE Administration Sodium Chloride 10 ml 03/02/21 00:18 Sodium Chloride 0.9% 10 Ml Flush Syringe IV PRN PRN LINE FLUSH Zinc Sulfate 220 mg 03/06/21 16:00 03/23/21 09:01 Zinc Sulfate 220 Mg Cap PO 220 mg BID KYLE Administration Ziprasidone 20 mg 03/14/21 11:18 Ziprasidone Mesylate 20 Mg Vial IM Q6H PRN Agitation Zolpidem Tartrate 5 mg 03/13/21 17:55 03/23/21 00:26 Zolpidem 5 Mg Tab PO 5 mg QHS PRN Administration Sleep Nutrition/Malnutrition Assess - Dietary Evaluation Nutrition/Malnutrition Findings: Nutrition Notes Start: 03/02/21 10:10 Freq: Status: Active Protocol: Document 03/21/21 14:35 (Rec: 03/21/21 14:38 [id number]) Nutrition Notes Initial or Follow up Reassessment Current Diagnosis Acute Kidney Injury,COPD, Diabetes,Sepsis,Hypertension, Heart Failure,Respiratory Failure Other Pertinent Diagnosis pneu, AMS, COVID(+) Current Diet Cardiac, Consistent CHO Labs/Tests Na 136 K 3.2 Pertinent Medications Lasix Height 5 ft 10 in Weight 131 kg [place] Body Weight (kg) 75.45 BMI 41.4 Weight Status Morbidly Obese Subjective/Other Information Per RN, pt continues to eat 25 % of meals. Pt may need TF to help meet needs. Percent of energy/protein needs met: 27%/11% Burn Absent Trauma Absent Current % PO Poor (25-49%) Minimum of two criteria No Fluid Accumulation Mild (non-severe) #1 Nutrition Diagnosis Inadequate oral intake Diagnosis Progress(for reassessment Continues documentation) Is patient on ventilator? No Is Patient Ambulatory and/or Out of Bed No REE-([facility]-confined to bed) 2614.728 Kcal/Kg value to use for calculation 16 Approximate Energy Requirements Using 2096 kcal/Kg Calculation Used for Recommendations Kcal/kg Additional Notes Pro needs up to 2.5g/klg IBW: up to 189g/day Fluid needs 1ml/kcal Nutrition Intervention Change Diet Order: continue Nutrition Support: Recommend supplemental TF Add Supplement/Snack (indicate name/kcal Glucerna daily /protein ) Provides kCal: 220 Provides Protein (gm) 10 Goal #1 PO tolerance Goal #2 PO intake to meet at least 75% energy and pro needs Anticipated Discharge Needs: Cardiac, consistent CHO Follow-Up By: 03/25/21 Additional Comments F/u: intakes and ONS tolerance
[2021-03-23 09:59] LABS: BUN/Creatinine Ratio 20; Blood Urea Nitrogen 12 mg/dL (9-20); Calcium 8.2 mg/dL (8.4-10.2); Hemolysis Index 14
--- NOTE | 2021-03-23 20:14 | Progress Note ---
Assessment and Plan 51-year-old -[place] male with known history of COPD, CHF, diabetes mellitus, DVT and hypertension was brought into the emergency room by EMS for altered mental status and hypoxia. According to EMS patient was discharged from [facility] after treatment for CHF exacerbation. Patient was found to be altered upon waking up and on arrival of EMS oxygen saturation was about 88% on room air, blood pressure was said to be about 88/50 mmHg.Was subsequently placed on 5 L of oxygen by nasal cannula with improvement in his oxygen saturation. According to who was by the bedside patient was having some mild cough which was nonproductive. He has had no fever or chills. There has been no nausea or vomiting or abdominal pain. Patient has been fully vaccinated against COVID-19. Work-up in the emergency room, labs reveals leukocytosis of 12.7, hemoglobin of 9.1 and hematocrit of 27.7, sodium of 132, lactic acid of 2.90. Liver enzymes were abnormally elevated, troponin was also bumped at 0.493. CT of the chest shows findings concerning for atelectasis and or infiltrate, CT of the head was unremarkable. Patient was in severe respiratory distress upon arrival in the emergency room and subsequently intubated. Patient currently being admitted for mainly severe sepsis, respiratory failure, pneumonia and ALPHONSO. Patient is awake., on vapotherm, FIO2 60% and O2 sat 100%. BIPAP stand by in the room. He is in no acute respiratory distress. Patient is afebrile. Has no leukocytosis. Hemoglobin 7.9. Hematocrit 24.9. Troponin: 0.185. Patient's Sanchez virus PCR is Positive. Cxray on 03/14/21 reported: reported Bibasilar pleural-parenchymal densities . No pneumothorax. No significant change in comparison to 03/12/21. Patients venous duplex studies done 03/04/21 reported Occlusive thrombus in the right posterior tibial vein. The remainder of the veins are patent. Patient is currently on albuterol, Mucinex, Enoxaparin in therapeutic dose and Pepcid. - Patient Problems (1) Acute and chronic respiratory failure ([id number]) Current Visit: Yes Status: Acute Plan to address problem: Vapotherm, FIO2 60% Albuterol inhaler 2 puffs po q 4 hours prn for shortness of breath. S/C Lovenox Famotidine (2) Acute deep vein thrombosis (DVT) of right lower extremity Current Visit: Yes Status: Acute Plan to address problem: Continue S/C Lovenox in therapeutic dose. (3) ALPHONSO (acute kidney injury) Current Visit: Yes Status: Acute Plan to address problem: Management as per primary team and nephrology. (4) CHF (congestive heart failure) Current Visit: Yes Status: Acute Plan to address problem: Management as per primary team and cardiology (5) COVID-19 Current Visit: Yes Status: Acute Plan to address problem: Patient Positive for Sanchez virus PCR. Management as per infectious diseases. (6) COPD (chronic obstructive pulmonary disease) Current Visit: Yes Status: Chronic Plan to address problem: Vapotherm, FIO2 60% Albuterol inhaler 2 puffs po q 4 hours prn for shortness of breath. S/C Lovenox Famotidine PFTs as out when his condition improves. (7) DM2 (diabetes mellitus, type 2) Current Visit: Yes Status: Chronic Plan to address problem: Management as per primary team. (8) KAM (obstructive sleep apnea) Current Visit: Yes Status: Chronic Plan to address problem: BIPAP stand by in the room BIPAP during night time. Recommend sleep study as out patient. (9) Tobacco abuse Current Visit: Yes Status: Chronic Plan to address problem: l counseled on smoking cessation. Subjective Date of service: 03/23/21 Principal diagnosis: Ac hypoxemic resp failure; NSTEMI; ALPHONSO; Sepsis; PNA; CHF; DM II; AMS Interval history: 51-year-old -[place] male with known history of COPD, CHF, diabetes mellitus, DVT and hypertension was brought into the emergency room by EMS for altered mental status and hypoxia. According to EMS patient was discharged from [facility] after treatment for CHF exacerbation. Patient was found to be altered upon waking up and on arrival of EMS oxygen saturation was about 88% on room air, blood pressure was said to be about 88/50 mmHg.Was subsequently placed on 5 L of oxygen by nasal cannula with improvement in his oxygen saturation. According to who was by the bedside patient was having some mild cough which was nonproductive. He has had no fever or chills. There has been no nausea or vomiting or abdominal pain. Patient has been fully vaccinated against COVID-19. Work-up in the emergency room, labs reveals leukocytosis of 12.7, hemoglobin of 9.1 and hematocrit of 27.7, sodium of 132, lactic acid of 2.90. Liver enzymes were abnormally elevated, troponin was also bumped at 0.493. CT of the chest shows findings concerning for atelectasis and or infiltrate, CT of the head was unremarkable. Patient was in severe respiratory distress upon arrival in the emergency room and subsequently intubated. Patient currently being admitted for mainly severe sepsis, respiratory failure, pneumonia and ALPHONSO. Patient is awake., on vapotherm, FIO2 60% and O2 sat 100%. BIPAP stand by in the room. He is in no acute respiratory distress. Patient is afebrile. Has no leukocytosis. Hemoglobin 7.9. Hematocrit 24.9. Troponin: 0.185. Patient's Sanchez virus PCR is Positive. Cxray on 03/14/21 reported: reported Bibasilar pleural-parenchymal densities . No pneumothorax. No significant change in comparison to 03/12/21. Patients venous duplex studies done 03/04/21 reported Occlusive thrombus in the right posterior tibial vein. The remainder of the veins are patent. Patient is currently on albuterol, Mucinex, Enoxaparin in therapeutic dose and Pepcid. Objective Vital Signs - 12hr 03/23/21 03/23/21 03/23/21 10:00 13:02 15:53 Temperature 98.2 F Pulse Rate 36 L Respiratory 26 H Rate Blood Pressure 118/68 O2 Sat by Pulse 95 89 94 Oximetry 03/23/21 17:26 Temperature 98.0 F Pulse Rate 114 H Respiratory 26 H Rate Blood Pressure 111/68 O2 Sat by Pulse 89 Oximetry Constitutional: no acute distress, alert, other (middle aged obese male with mildly increased respiratory effort at rest) Eyes: non-icteric ENT: oropharynx moist, other Neck: supple, no lymphadenopathy, no JVD, other (large neck circumference) Effort: mildly labored Ascultation: Bilateral: diminished breath sounds, rhonchi (posterior bases) Percussion: Bilateral: not dull Cardiovascular: regular rate and rhythm, other (S1,S2) Gastrointestinal: normoactive bowel sounds, soft, non-tender, non-distended (protuberant) Integumentary: normal Extremities: no cyanosis, pulses normal, no ischemia or petechiae, edema (trace) Neurologic: non-focal exam (grossly), pupils equal and round, CN II-XII normal Psychiatric: other (Encephalopathic.) CBC and BMP: 03/18/21 07:53 03/23/21 08:35 ABG, PT/INR, D-dimer: ABG ABG pH 7.487 (7.320-7.450) H 03/10/21 12:33 POC ABG pCO2 40.4 mmHg (32.0-48.0) 03/10/21 12:33 POC ABG pO2 62.1 mmHg (83-108) L 03/10/21 12:33 POC ABG HCO3 29.9 03/10/21 12:33 ABG O2 Saturation 90.2 (0-100) 03/10/21 12:33 PT/INR, D-dimer PT 15.6 Sec. (12.2-14.9) H 03/04/21 10:17 INR 1.18 (0.87-1.13) H 03/04/21 10:17 D-Dimer 475.91 ng/mlDDU (0-234) H 03/14/21 03:40 Abnormal lab findings: Abnormal Labs 03/01/21 03/01/21 03/01/21 19:15 19:21 19:21 WBC 12.7 H RBC 2.77 L Hgb 9.1 L Hct 27.7 L MCV 100 H MCH 33 H RDW 18.0 H Seg Neutrophils % Monocytes % (Manual) 17.0 H Seg Neutrophils # Monocytes # (Manual) 2.2 H PT INR D-Dimer Heparin Anti-Xa Level ABG pH POC ABG pCO2 POC ABG pO2 64.9 L ABG Hemoglobin 9.3 L ABG Oxyhemoglobin 93.0 L ABG Sodium 133.8 L ABG Potassium ABG Chloride 97.0 L ABG Glucose 191 H Carboxyhemoglobin Sodium Potassium Chloride Carbon Dioxide BUN Creatinine Glucose POC Glucose Lactic Acid Calcium Phosphorus Magnesium Ferritin Total Bilirubin Direct Bilirubin AST ALT Alkaline Phosphatase Ammonia Lactate Dehydrogenase Troponin T 0.493 H* C-Reactive Protein Total Protein Albumin Triglycerides 400 H Cholesterol 232 H HDL Cholesterol 22 L Lipase Arterial Blood Glucose 191 H Arterial Blood Ionized Calcium 4.4 L Urine WBC (Auto) Salicylates Acetaminophen Coronavirus (PCR) 03/01/21 03/01/21 03/01/21 19:21 19:21 19:21 WBC RBC Hgb Hct MCV MCH RDW Seg Neutrophils % Monocytes % (Manual) Seg Neutrophils # Monocytes # (Manual) PT 16.6 H INR 1.28 H D-Dimer Heparin Anti-Xa Level ABG pH POC ABG pCO2 POC ABG pO2 ABG Hemoglobin ABG Oxyhemoglobin ABG Sodium ABG Potassium ABG Chloride ABG Glucose Carboxyhemoglobin Sodium 132 L Potassium Chloride 92.2 L Carbon Dioxide BUN 43 H Creatinine 2.4 H Glucose 190 H POC Glucose Lactic Acid 2.90 H* Calcium Phosphorus Magnesium Ferritin Total Bilirubin 1.60 H Direct Bilirubin 1.2 H AST 275 H ALT 156 H Alkaline Phosphatase 282 H Ammonia Lactate Dehydrogenase Troponin T C-Reactive Protein Total Protein 5.8 L Albumin 2.6 L Triglycerides Cholesterol HDL Cholesterol Lipase 120 H Arterial Blood Glucose Arterial Blood Ionized Calcium Urine WBC (Auto) Salicylates Acetaminophen Coronavirus (PCR) 03/01/21 03/01/21 03/01/21 19:21 19:21 19:21 WBC RBC Hgb Hct MCV MCH RDW Seg Neutrophils % Monocytes % (Manual) Seg Neutrophils # Monocytes # (Manual) PT INR D-Dimer Heparin Anti-Xa Level ABG pH POC ABG pCO2 POC ABG pO2 ABG Hemoglobin ABG Oxyhemoglobin ABG Sodium ABG Potassium ABG Chloride ABG Glucose Carboxyhemoglobin Sodium Potassium Chloride Carbon Dioxide BUN Creatinine Glucose POC Glucose Lactic Acid Calcium Phosphorus Magnesium Ferritin Total Bilirubin Direct Bilirubin AST ALT Alkaline Phosphatase Ammonia 71.0 H Lactate Dehydrogenase Troponin T C-Reactive Protein Total Protein Albumin Triglycerides Cholesterol HDL Cholesterol Lipase Arterial Blood Glucose Arterial Blood Ionized Calcium Urine WBC (Auto) Salicylates < 0.3 L Acetaminophen 5.0 L Coronavirus (PCR) 03/01/21 03/01/21 03/02/21 20:55 20:55 00:01 WBC RBC Hgb Hct MCV MCH RDW Seg Neutrophils % Monocytes % (Manual) Seg Neutrophils # Monocytes # (Manual) PT INR D-Dimer Heparin Anti-Xa Level ABG pH 7.234 L POC ABG pCO2 POC ABG pO2 240.5 H ABG Hemoglobin 9.3 L ABG Oxyhemoglobin 99.1 H ABG Sodium 135.3 L ABG Potassium ABG Chloride ABG Glucose 286 H Carboxyhemoglobin 0.3 L Sodium Potassium Chloride Carbon Dioxide BUN Creatinine Glucose POC Glucose Lactic Acid 4.30 H* Calcium Phosphorus Magnesium Ferritin Total Bilirubin Direct Bilirubin AST ALT Alkaline Phosphatase Ammonia Lactate Dehydrogenase Troponin T 0.484 H* C-Reactive Protein Total Protein Albumin Triglycerides Cholesterol HDL Cholesterol Lipase Arterial Blood Glucose 286 H Arterial Blood Ionized Calcium Urine WBC (Auto) Salicylates Acetaminophen Coronavirus (PCR) 03/02/21 03/02/21 03/02/21 03:42 05:23 06:35 WBC RBC Hgb Hct MCV MCH RDW Seg Neutrophils % Monocytes % (Manual) Seg Neutrophils # Monocytes # (Manual) PT INR D-Dimer Heparin Anti-Xa Level ABG pH 7.225 L POC ABG pCO2 POC ABG pO2 181.8 H ABG Hemoglobin 9.4 L ABG Oxyhemoglobin 98.6 H ABG Sodium 132.1 L ABG Potassium 5.0 H ABG Chloride ABG Glucose 454 H Carboxyhemoglobin 0.3 L Sodium Potassium Chloride Carbon Dioxide BUN Creatinine Glucose POC Glucose 410 H Lactic Acid 7.50 H* Calcium Phosphorus Magnesium Ferritin Total Bilirubin Direct Bilirubin AST ALT Alkaline Phosphatase Ammonia Lactate Dehydrogenase Troponin T C-Reactive Protein Total Protein Albumin Triglycerides Cholesterol HDL Cholesterol Lipase Arterial Blood Glucose 454 H Arterial Blood Ionized Calcium 4.2 L Urine WBC (Auto) Salicylates Acetaminophen Coronavirus (PCR) 03/02/21 03/02/21 03/02/21 10:48 10:48 10:48 WBC RBC Hgb Hct MCV MCH RDW Seg Neutrophils % Monocytes % (Manual) Seg Neutrophils # Monocytes # (Manual) PT INR D-Dimer Heparin Anti-Xa Level ABG pH POC ABG pCO2 POC ABG pO2 ABG Hemoglobin ABG Oxyhemoglobin ABG Sodium ABG Potassium ABG Chloride ABG Glucose Carboxyhemoglobin Sodium 132 L Potassium Chloride 93.3 L Carbon Dioxide 20 L BUN 46 H Creatinine 1.9 H Glucose 503 H* POC Glucose Lactic Acid 3.40 H* Calcium 7.9 L Phosphorus 5.80 H Magnesium Ferritin Total Bilirubin Direct Bilirubin AST ALT Alkaline Phosphatase Ammonia Lactate Dehydrogenase Troponin T C-Reactive Protein Total Protein Albumin Triglycerides Cholesterol HDL Cholesterol Lipase Arterial Blood Glucose Arterial Blood Ionized Calcium Urine WBC (Auto) Salicylates Acetaminophen Coronavirus (PCR) 03/02/21 03/02/21 03/02/21 11:23 11:38 15:33 WBC RBC Hgb Hct MCV MCH RDW Seg Neutrophils % Monocytes % (Manual) Seg Neutrophils # Monocytes # (Manual) PT INR D-Dimer Heparin Anti-Xa Level ABG pH 7.318 L POC ABG pCO2 POC ABG pO2 ABG Hemoglobin 9.2 L ABG Oxyhemoglobin ABG Sodium 133.2 L ABG Potassium ABG Chloride ABG Glucose 504 H Carboxyhemoglobin 0.3 L Sodium Potassium Chloride Carbon Dioxide BUN Creatinine Glucose POC Glucose 468 H 445 H Lactic Acid Calcium Phosphorus Magnesium Ferritin Total Bilirubin Direct Bilirubin AST ALT Alkaline Phosphatase Ammonia Lactate Dehydrogenase Troponin T C-Reactive Protein Total Protein Albumin Triglycerides Cholesterol HDL Cholesterol Lipase Arterial Blood Glucose 504 H Arterial Blood Ionized Calcium 4.2 L Urine WBC (Auto) Salicylates Acetaminophen Coronavirus (PCR) 03/02/21 03/02/21 03/02/21 16:28 16:28 16:28 WBC RBC Hgb 8.8 L Hct 26.0 L MCV MCH RDW Seg Neutrophils % Monocytes % (Manual) Seg Neutrophils # Monocytes # (Manual) PT 15.2 H INR 1.14 H D-Dimer Heparin Anti-Xa Level ABG pH POC ABG pCO2 POC ABG pO2 ABG Hemoglobin ABG Oxyhemoglobin ABG Sodium ABG Potassium ABG Chloride ABG Glucose Carboxyhemoglobin Sodium 135 L Potassium Chloride 93.8 L Carbon Dioxide BUN 48 H Creatinine 1.8 H Glucose 454 H POC Glucose Lactic Acid Calcium 7.6 L Phosphorus Magnesium Ferritin Total Bilirubin Direct Bilirubin AST ALT Alkaline Phosphatase Ammonia Lactate Dehydrogenase Troponin T C-Reactive Protein Total Protein Albumin Triglycerides Cholesterol HDL Cholesterol Lipase Arterial Blood Glucose Arterial Blood Ionized Calcium Urine WBC (Auto) Salicylates Acetaminophen Coronavirus (PCR) 03/02/21 03/02/21 03/02/21 17:39 18:52 20:09 WBC RBC Hgb Hct MCV MCH RDW Seg Neutrophils % Monocytes % (Manual) Seg Neutrophils # Monocytes # (Manual) PT INR D-Dimer Heparin Anti-Xa Level ABG pH POC ABG pCO2 POC ABG pO2 ABG Hemoglobin ABG Oxyhemoglobin ABG Sodium ABG Potassium ABG Chloride ABG Glucose Carboxyhemoglobin Sodium Potassium Chloride Carbon Dioxide BUN Creatinine Glucose POC Glucose 404 H 357 H 347 H Lactic Acid Calcium Phosphorus Magnesium Ferritin Total Bilirubin Direct Bilirubin AST ALT Alkaline Phosphatase Ammonia Lactate Dehydrogenase Troponin T C-Reactive Protein Total Protein Albumin Triglycerides Cholesterol HDL Cholesterol Lipase Arterial Blood Glucose Arterial Blood Ionized Calcium Urine WBC (Auto) Salicylates Acetaminophen Coronavirus (PCR) 03/02/21 03/02/21 03/02/21 21:03 22:00 22:55 WBC RBC Hgb Hct MCV MCH RDW Seg Neutrophils % Monocytes % (Manual) Seg Neutrophils # Monocytes # (Manual) PT INR D-Dimer Heparin Anti-Xa Level ABG pH POC ABG pCO2 POC ABG pO2 ABG Hemoglobin ABG Oxyhemoglobin ABG Sodium ABG Potassium ABG Chloride ABG Glucose Carboxyhemoglobin Sodium Potassium Chloride Carbon Dioxide BUN Creatinine Glucose POC Glucose 307 H 270 H 237 H Lactic Acid Calcium Phosphorus Magnesium Ferritin Total Bilirubin Direct Bilirubin AST ALT Alkaline Phosphatase Ammonia Lactate Dehydrogenase Troponin T C-Reactive Protein Total Protein Albumin Triglycerides Cholesterol HDL Cholesterol Lipase Arterial Blood Glucose Arterial Blood Ionized Calcium Urine WBC (Auto) Salicylates Acetaminophen Coronavirus (PCR) 03/03/21 03/03/21 03/03/21 00:02 00:57 02:01 WBC RBC Hgb Hct MCV MCH RDW Seg Neutrophils % Monocytes % (Manual) Seg Neutrophils # Monocytes # (Manual) PT INR D-Dimer Heparin Anti-Xa Level ABG pH POC ABG pCO2 POC ABG pO2 ABG Hemoglobin ABG Oxyhemoglobin ABG Sodium ABG Potassium ABG Chloride ABG Glucose Carboxyhemoglobin Sodium Potassium Chloride Carbon Dioxide BUN Creatinine Glucose POC Glucose 252 H 214 H 261 H Lactic Acid Calcium Phosphorus Magnesium Ferritin Total Bilirubin Direct Bilirubin AST ALT Alkaline Phosphatase Ammonia Lactate Dehydrogenase Troponin T C-Reactive Protein Total Protein Albumin Triglycerides Cholesterol HDL Cholesterol Lipase Arterial Blood Glucose Arterial Blood Ionized Calcium Urine WBC (Auto) Salicylates Acetaminophen Coronavirus (PCR) 03/03/21 03/03/21 03/03/21 03:07 03:10 03:50 WBC 13.7 H RBC 2.69 L Hgb 8.7 L Hct 26.9 L MCV 100 H MCH RDW 18.5 H Seg Neutrophils % 79.0 H Monocytes % (Manual) Seg Neutrophils # 10.8 H Monocytes # (Manual) PT INR D-Dimer Heparin Anti-Xa Level ABG pH POC ABG pCO2 50.9 H POC ABG pO2 81.9 L ABG Hemoglobin 8.7 L ABG Oxyhemoglobin ABG Sodium 134.2 L ABG Potassium ABG Chloride 96.0 L ABG Glucose 279 H Carboxyhemoglobin 0.4 L Sodium Potassium Chloride Carbon Dioxide BUN Creatinine Glucose POC Glucose 276 H Lactic Acid Calcium Phosphorus Magnesium Ferritin Total Bilirubin Direct Bilirubin AST ALT Alkaline Phosphatase Ammonia Lactate Dehydrogenase Troponin T C-Reactive Protein Total Protein Albumin Triglycerides Cholesterol HDL Cholesterol Lipase Arterial Blood Glucose 279 H Arterial Blood Ionized Calcium 3.9 L Urine WBC (Auto) Salicylates Acetaminophen Coronavirus (PCR) 03/03/21 03/03/21 03/03/21 03:50 04:06 04:32 WBC RBC Hgb Hct MCV MCH RDW Seg Neutrophils % Monocytes % (Manual) Seg Neutrophils # Monocytes # (Manual) PT INR D-Dimer Heparin Anti-Xa Level ABG pH POC ABG pCO2 POC ABG pO2 ABG Hemoglobin ABG Oxyhemoglobin ABG Sodium ABG Potassium ABG Chloride ABG Glucose Carboxyhemoglobin Sodium Potassium Chloride 94.2 L Carbon Dioxide BUN 45 H Creatinine 1.9 H Glucose 261 H POC Glucose 256 H Lactic Acid Calcium 7.3 L Phosphorus Magnesium Ferritin Total Bilirubin Direct Bilirubin 0.9 H AST 208 H ALT 148 H Alkaline Phosphatase 251 H Ammonia Lactate Dehydrogenase Troponin T C-Reactive Protein Total Protein 5.5 L Albumin 2.4 L Triglycerides Cholesterol HDL Cholesterol Lipase Arterial Blood Glucose Arterial Blood Ionized Calcium Urine WBC (Auto) Salicylates Acetaminophen Coronavirus (PCR) 03/03/21 03/03/21 03/03/21 05:23 06:06 07:07 WBC RBC Hgb Hct MCV MCH RDW Seg Neutrophils % Monocytes % (Manual) Seg Neutrophils # Monocytes # (Manual) PT INR D-Dimer Heparin Anti-Xa Level ABG pH POC ABG pCO2 POC ABG pO2 ABG Hemoglobin ABG Oxyhemoglobin ABG Sodium ABG Potassium ABG Chloride ABG Glucose Carboxyhemoglobin Sodium Potassium Chloride Carbon Dioxide BUN Creatinine Glucose POC Glucose 214 H 249 H 237 H Lactic Acid Calcium Phosphorus Magnesium Ferritin Total Bilirubin Direct Bilirubin AST ALT Alkaline Phosphatase Ammonia Lactate Dehydrogenase Troponin T C-Reactive Protein Total Protein Albumin Triglycerides Cholesterol HDL Cholesterol Lipase Arterial Blood Glucose Arterial Blood Ionized Calcium Urine WBC (Auto) Salicylates Acetaminophen Coronavirus (PCR) 03/03/21 03/03/21 03/03/21 07:58 08:58 09:52 WBC RBC Hgb Hct MCV MCH RDW Seg Neutrophils % Monocytes % (Manual) Seg Neutrophils # Monocytes # (Manual) PT INR D-Dimer Heparin Anti-Xa Level ABG pH POC ABG pCO2 POC ABG pO2 ABG Hemoglobin ABG Oxyhemoglobin ABG Sodium ABG Potassium ABG Chloride ABG Glucose Carboxyhemoglobin Sodium Potassium Chloride Carbon Dioxide BUN Creatinine Glucose POC Glucose 227 H 215 H 207 H Lactic Acid Calcium Phosphorus Magnesium Ferritin Total Bilirubin Direct Bilirubin AST ALT Alkaline Phosphatase Ammonia Lactate Dehydrogenase Troponin T C-Reactive Protein Total Protein Albumin Triglycerides Cholesterol HDL Cholesterol Lipase Arterial Blood Glucose Arterial Blood Ionized Calcium Urine WBC (Auto) Salicylates Acetaminophen Coronavirus (PCR) 03/03/21 03/03/21 03/03/21 10:55 11:44 12:53 WBC RBC Hgb Hct MCV MCH RDW Seg Neutrophils % Monocytes % (Manual) Seg Neutrophils # Monocytes # (Manual) PT INR D-Dimer Heparin Anti-Xa Level ABG pH POC ABG pCO2 POC ABG pO2 ABG Hemoglobin ABG Oxyhemoglobin ABG Sodium ABG Potassium ABG Chloride ABG Glucose Carboxyhemoglobin Sodium Potassium Chloride Carbon Dioxide BUN Creatinine Glucose POC Glucose 198 H 210 H 203 H Lactic Acid Calcium Phosphorus Magnesium Ferritin Total Bilirubin Direct Bilirubin AST ALT Alkaline Phosphatase Ammonia Lactate Dehydrogenase Troponin T C-Reactive Protein Total Protein Albumin Triglycerides Cholesterol HDL Cholesterol Lipase Arterial Blood Glucose Arterial Blood Ionized Calcium Urine WBC (Auto) Salicylates Acetaminophen Coronavirus (PCR) 03/03/21 03/03/21 03/03/21 13:53 14:58 15:23 WBC RBC Hgb Hct MCV MCH RDW Seg Neutrophils % Monocytes % (Manual) Seg Neutrophils # Monocytes # (Manual) PT INR D-Dimer Heparin Anti-Xa Level ABG pH POC ABG pCO2 POC ABG pO2 ABG Hemoglobin ABG Oxyhemoglobin ABG Sodium ABG Potassium ABG Chloride ABG Glucose Carboxyhemoglobin Sodium Potassium Chloride Carbon Dioxide BUN Creatinine Glucose POC Glucose 210 H 187 H Lactic Acid 3.10 H* Calcium Phosphorus Magnesium Ferritin Total Bilirubin Direct Bilirubin AST ALT Alkaline Phosphatase Ammonia Lactate Dehydrogenase Troponin T C-Reactive Protein Total Protein Albumin Triglycerides Cholesterol HDL Cholesterol Lipase Arterial Blood Glucose Arterial Blood Ionized Calcium Urine WBC (Auto) Salicylates Acetaminophen Coronavirus (PCR) 03/03/21 03/03/21 03/03/21 15:51 16:25 16:53 WBC RBC Hgb Hct MCV MCH RDW Seg Neutrophils % Monocytes % (Manual) Seg Neutrophils # Monocytes # (Manual) PT INR D-Dimer Heparin Anti-Xa Level ABG pH POC ABG pCO2 POC ABG pO2 ABG Hemoglobin ABG Oxyhemoglobin ABG Sodium ABG Potassium ABG Chloride ABG Glucose Carboxyhemoglobin Sodium Potassium Chloride 91.0 L Carbon Dioxide 34 H BUN 47 H Creatinine 1.7 H Glucose 190 H POC Glucose 182 H 179 H Lactic Acid Calcium 7.6 L Phosphorus Magnesium Ferritin Total Bilirubin Direct Bilirubin AST ALT Alkaline Phosphatase Ammonia Lactate Dehydrogenase Troponin T C-Reactive Protein Total Protein Albumin Triglycerides Cholesterol HDL Cholesterol Lipase Arterial Blood Glucose Arterial Blood Ionized Calcium Urine WBC (Auto) Salicylates Acetaminophen Coronavirus (PCR) 03/03/21 03/03/21 03/03/21 17:55 19:37 20:57 WBC RBC Hgb Hct MCV MCH RDW Seg Neutrophils % Monocytes % (Manual) Seg Neutrophils # Monocytes # (Manual) PT INR D-Dimer Heparin Anti-Xa Level ABG pH POC ABG pCO2 POC ABG pO2 ABG Hemoglobin ABG Oxyhemoglobin ABG Sodium ABG Potassium ABG Chloride ABG Glucose Carboxyhemoglobin Sodium Potassium Chloride Carbon Dioxide BUN Creatinine Glucose POC Glucose 185 H 174 H 175 H Lactic Acid Calcium Phosphorus Magnesium Ferritin Total Bilirubin Direct Bilirubin AST ALT Alkaline Phosphatase Ammonia Lactate Dehydrogenase Troponin T C-Reactive Protein Total Protein Albumin Triglycerides Cholesterol HDL Cholesterol Lipase Arterial Blood Glucose Arterial Blood Ionized Calcium Urine WBC (Auto) Salicylates Acetaminophen Coronavirus (PCR) 03/03/21 03/03/21 03/03/21 22:02 22:56 23:10 WBC RBC Hgb Hct MCV MCH RDW Seg Neutrophils % Monocytes % (Manual) Seg Neutrophils # Monocytes # (Manual) PT INR D-Dimer Heparin Anti-Xa Level 0.75 H ABG pH POC ABG pCO2 POC ABG pO2 ABG Hemoglobin ABG Oxyhemoglobin ABG Sodium ABG Potassium ABG Chloride ABG Glucose Carboxyhemoglobin Sodium Potassium Chloride Carbon Dioxide BUN Creatinine Glucose POC Glucose 170 H 160 H Lactic Acid Calcium Phosphorus Magnesium Ferritin Total Bilirubin Direct Bilirubin AST ALT Alkaline Phosphatase Ammonia Lactate Dehydrogenase Troponin T C-Reactive Protein Total Protein Albumin Triglycerides Cholesterol HDL Cholesterol Lipase Arterial Blood Glucose Arterial Blood Ionized Calcium Urine WBC (Auto) Salicylates Acetaminophen Coronavirus (PCR) 03/03/21 03/04/21 03/04/21 23:42 00:52 01:55 WBC RBC Hgb Hct MCV MCH RDW Seg Neutrophils % Monocytes % (Manual) Seg Neutrophils # Monocytes # (Manual) PT INR D-Dimer Heparin Anti-Xa Level ABG pH POC ABG pCO2 POC ABG pO2 ABG Hemoglobin ABG Oxyhemoglobin ABG Sodium ABG Potassium ABG Chloride ABG Glucose Carboxyhemoglobin Sodium Potassium Chloride Carbon Dioxide BUN Creatinine Glucose POC Glucose 161 H 167 H 119 H Lactic Acid Calcium Phosphorus Magnesium Ferritin Total Bilirubin Direct Bilirubin AST ALT Alkaline Phosphatase Ammonia Lactate Dehydrogenase Troponin T C-Reactive Protein Total Protein Albumin Triglycerides Cholesterol HDL Cholesterol Lipase Arterial Blood Glucose Arterial Blood Ionized Calcium Urine WBC (Auto) Salicylates Acetaminophen Coronavirus (PCR) 03/04/21 03/04/21 03/04/21 02:58 03:47 04:03 WBC RBC Hgb Hct MCV MCH RDW Seg Neutrophils % Monocytes % (Manual) Seg Neutrophils # Monocytes # (Manual) PT INR D-Dimer Heparin Anti-Xa Level ABG pH POC ABG pCO2 57.3 H POC ABG pO2 63.7 L ABG Hemoglobin 8.4 L ABG Oxyhemoglobin 88.6 L ABG Sodium 132.5 L ABG Potassium 3.2 L ABG Chloride 94.0 L ABG Glucose 129 H Carboxyhemoglobin Sodium Potassium Chloride Carbon Dioxide BUN Creatinine Glucose POC Glucose 111 H 122 H Lactic Acid Calcium Phosphorus Magnesium Ferritin Total Bilirubin Direct Bilirubin AST ALT Alkaline Phosphatase Ammonia Lactate Dehydrogenase Troponin T C-Reactive Protein Total Protein Albumin Triglycerides Cholesterol HDL Cholesterol Lipase Arterial Blood Glucose 129 H Arterial Blood Ionized Calcium 3.8 L Urine WBC (Auto) Salicylates Acetaminophen Coronavirus (PCR) 03/04/21 03/04/21 03/04/21 05:15 05:26 05:26 WBC RBC Hgb 7.9 L Hct 23.7 L MCV MCH RDW Seg Neutrophils % Monocytes % (Manual) Seg Neutrophils # Monocytes # (Manual) PT INR D-Dimer Heparin Anti-Xa Level ABG pH POC ABG pCO2 POC ABG pO2 ABG Hemoglobin ABG Oxyhemoglobin ABG Sodium ABG Potassium ABG Chloride ABG Glucose Carboxyhemoglobin Sodium Potassium Chloride Carbon Dioxide BUN Creatinine Glucose POC Glucose 127 H Lactic Acid Calcium Phosphorus Magnesium Ferritin Total Bilirubin Direct Bilirubin 0.6 H AST 123 H ALT 105 H Alkaline Phosphatase 232 H Ammonia Lactate Dehydrogenase Troponin T C-Reactive Protein Total Protein 4.8 L Albumin 2.2 L Triglycerides Cholesterol HDL Cholesterol Lipase Arterial Blood Glucose Arterial Blood Ionized Calcium Urine WBC (Auto) Salicylates Acetaminophen Coronavirus (PCR) 03/04/21 03/04/21 03/04/21 05:26 06:01 06:53 WBC RBC Hgb Hct MCV MCH RDW Seg Neutrophils % Monocytes % (Manual) Seg Neutrophils # Monocytes # (Manual) PT INR D-Dimer Heparin Anti-Xa Level 0.71 H ABG pH POC ABG pCO2 POC ABG pO2 ABG Hemoglobin ABG Oxyhemoglobin ABG Sodium ABG Potassium ABG Chloride ABG Glucose Carboxyhemoglobin Sodium Potassium Chloride Carbon Dioxide BUN Creatinine Glucose POC Glucose 120 H 117 H Lactic Acid Calcium Phosphorus Magnesium Ferritin Total Bilirubin Direct Bilirubin AST ALT Alkaline Phosphatase Ammonia Lactate Dehydrogenase Troponin T C-Reactive Protein Total Protein Albumin Triglycerides Cholesterol HDL Cholesterol Lipase Arterial Blood Glucose Arterial Blood Ionized Calcium Urine WBC (Auto) Salicylates Acetaminophen Coronavirus (PCR) 03/04/21 03/04/21 03/04/21 07:57 10:17 10:17 WBC RBC 2.51 L Hgb 8.3 L Hct 25.3 L MCV 101 H MCH 33 H RDW 18.5 H Seg Neutrophils % Monocytes % (Manual) Seg Neutrophils # Monocytes # (Manual) PT INR D-Dimer Heparin Anti-Xa Level ABG pH POC ABG pCO2 POC ABG pO2 ABG Hemoglobin ABG Oxyhemoglobin ABG Sodium ABG Potassium ABG Chloride ABG Glucose Carboxyhemoglobin Sodium 136 L Potassium Chloride 93.1 L Carbon Dioxide 33 H BUN 46 H Creatinine 1.4 H Glucose 151 H POC Glucose 129 H Lactic Acid Calcium 7.5 L Phosphorus Magnesium Ferritin Total Bilirubin Direct Bilirubin AST 126 H ALT 100 H Alkaline Phosphatase 226 H Ammonia Lactate Dehydrogenase Troponin T C-Reactive Protein Total Protein 5.0 L Albumin 2.2 L Triglycerides Cholesterol HDL Cholesterol Lipase Arterial Blood Glucose Arterial Blood Ionized Calcium Urine WBC (Auto) Salicylates Acetaminophen Coronavirus (PCR) 03/04/21 03/04/21 03/04/21 10:17 10:17 11:26 WBC RBC Hgb Hct MCV MCH RDW Seg Neutrophils % Monocytes % (Manual) Seg Neutrophils # Monocytes # (Manual) PT 15.6 H INR 1.18 H D-Dimer Heparin Anti-Xa Level ABG pH POC ABG pCO2 POC ABG pO2 ABG Hemoglobin ABG Oxyhemoglobin ABG Sodium ABG Potassium ABG Chloride ABG Glucose Carboxyhemoglobin Sodium Potassium Chloride Carbon Dioxide BUN Creatinine Glucose POC Glucose 167 H Lactic Acid Calcium Phosphorus Magnesium Ferritin Total Bilirubin Direct Bilirubin AST ALT Alkaline Phosphatase Ammonia Lactate Dehydrogenase Troponin T C-Reactive Protein Total Protein Albumin Triglycerides Cholesterol HDL Cholesterol Lipase 78 H Arterial Blood Glucose Arterial Blood Ionized Calcium Urine WBC (Auto) Salicylates Acetaminophen Coronavirus (PCR) 03/04/21 03/04/21 03/04/21 13:04 16:26 17:58 WBC RBC Hgb 7.7 L Hct 23.2 L MCV MCH RDW Seg Neutrophils % Monocytes % (Manual) Seg Neutrophils # Monocytes # (Manual) PT INR D-Dimer Heparin Anti-Xa Level < 0.10 L ABG pH POC ABG pCO2 POC ABG pO2 ABG Hemoglobin ABG Oxyhemoglobin ABG Sodium ABG Potassium ABG Chloride ABG Glucose Carboxyhemoglobin Sodium Potassium Chloride Carbon Dioxide BUN Creatinine Glucose POC Glucose 167 H Lactic Acid Calcium Phosphorus Magnesium Ferritin Total Bilirubin Direct Bilirubin AST ALT Alkaline Phosphatase Ammonia Lactate Dehydrogenase Troponin T C-Reactive Protein Total Protein Albumin Triglycerides Cholesterol HDL Cholesterol Lipase Arterial Blood Glucose Arterial Blood Ionized Calcium Urine WBC (Auto) Salicylates Acetaminophen Coronavirus (PCR) 03/04/21 03/05/21 03/05/21 23:47 04:00 05:06 WBC RBC Hgb Hct MCV MCH RDW Seg Neutrophils % Monocytes % (Manual) Seg Neutrophils # Monocytes # (Manual) PT INR D-Dimer Heparin Anti-Xa Level ABG pH POC ABG pCO2 POC ABG pO2 129.1 H ABG Hemoglobin 8.3 L ABG Oxyhemoglobin ABG Sodium 131.4 L ABG Potassium ABG Chloride 95.0 L ABG Glucose 153 H Carboxyhemoglobin Sodium Potassium Chloride Carbon Dioxide BUN Creatinine Glucose POC Glucose 153 H 139 H Lactic Acid Calcium Phosphorus Magnesium Ferritin Total Bilirubin Direct Bilirubin AST ALT Alkaline Phosphatase Ammonia Lactate Dehydrogenase Troponin T C-Reactive Protein Total Protein Albumin Triglycerides Cholesterol HDL Cholesterol Lipase Arterial Blood Glucose 153 H Arterial Blood Ionized Calcium Urine WBC (Auto) Salicylates Acetaminophen Coronavirus (PCR) 03/05/21 03/05/21 03/05/21 11:43 13:35 13:35 WBC RBC 2.38 L Hgb 7.8 L Hct 23.8 L MCV 100 H MCH 33 H RDW 18.2 H Seg Neutrophils % Monocytes % (Manual) Seg Neutrophils # Monocytes # (Manual) PT INR D-Dimer Heparin Anti-Xa Level ABG pH POC ABG pCO2 POC ABG pO2 ABG Hemoglobin ABG Oxyhemoglobin ABG Sodium ABG Potassium ABG Chloride ABG Glucose Carboxyhemoglobin Sodium Potassium Chloride 94.4 L Carbon Dioxide BUN 49 H Creatinine 1.6 H Glucose 165 H POC Glucose 174 H Lactic Acid Calcium 7.5 L Phosphorus Magnesium Ferritin Total Bilirubin Direct Bilirubin AST ALT Alkaline Phosphatase Ammonia Lactate Dehydrogenase Troponin T C-Reactive Protein Total Protein Albumin Triglycerides Cholesterol HDL Cholesterol Lipase Arterial Blood Glucose Arterial Blood Ionized Calcium Urine WBC (Auto) Salicylates Acetaminophen Coronavirus (PCR) 03/05/21 03/05/21 03/05/21 17:57 21:27 Unknown WBC RBC Hgb Hct MCV MCH RDW Seg Neutrophils % Monocytes % (Manual) Seg Neutrophils # Monocytes # (Manual) PT INR D-Dimer Heparin Anti-Xa Level ABG pH POC ABG pCO2 POC ABG pO2 ABG Hemoglobin ABG Oxyhemoglobin ABG Sodium ABG Potassium ABG Chloride ABG Glucose Carboxyhemoglobin Sodium Potassium Chloride Carbon Dioxide BUN Creatinine Glucose POC Glucose 129 H 129 H Lactic Acid Calcium Phosphorus Magnesium Ferritin Total Bilirubin Direct Bilirubin AST ALT Alkaline Phosphatase Ammonia Lactate Dehydrogenase Troponin T C-Reactive Protein Total Protein Albumin Triglycerides Cholesterol HDL Cholesterol Lipase Arterial Blood Glucose Arterial Blood Ionized Calcium Urine WBC (Auto) Salicylates Acetaminophen Coronavirus (PCR) Positive A 03/06/21 03/06/21 03/06/21 03:30 04:30 05:20 WBC 15.2 H RBC 2.48 L Hgb 8.2 L Hct 24.9 L MCV 100 H MCH 33 H RDW 18.6 H Seg Neutrophils % 72.6 H Monocytes % (Manual) Seg Neutrophils # 11.1 H Monocytes # (Manual) PT INR D-Dimer Heparin Anti-Xa Level ABG pH POC ABG pCO2 49.7 H POC ABG pO2 65.1 L ABG Hemoglobin 9.1 L ABG Oxyhemoglobin 90.2 L ABG Sodium 131.2 L ABG Potassium ABG Chloride 96.0 L ABG Glucose 133 H Carboxyhemoglobin Sodium Potassium Chloride Carbon Dioxide BUN Creatinine Glucose POC Glucose Lactic Acid Calcium Phosphorus Magnesium Ferritin Total Bilirubin Direct Bilirubin AST ALT Alkaline Phosphatase Ammonia Lactate Dehydrogenase Troponin T C-Reactive Protein 27.90 H Total Protein Albumin Triglycerides Cholesterol HDL Cholesterol Lipase Arterial Blood Glucose 133 H Arterial Blood Ionized Calcium 4.2 L Urine WBC (Auto) Salicylates Acetaminophen Coronavirus (PCR) 03/06/21 03/06/21 03/06/21 05:20 05:30 11:52 WBC RBC Hgb Hct MCV MCH RDW Seg Neutrophils % Monocytes % (Manual) Seg Neutrophils # Monocytes # (Manual) PT INR D-Dimer Heparin Anti-Xa Level ABG pH POC ABG pCO2 POC ABG pO2 ABG Hemoglobin ABG Oxyhemoglobin ABG Sodium ABG Potassium ABG Chloride ABG Glucose Carboxyhemoglobin Sodium 135 L Potassium Chloride 94.5 L Carbon Dioxide BUN 49 H Creatinine Glucose 121 H POC Glucose 123 H 123 H Lactic Acid Calcium 7.3 L Phosphorus Magnesium 1.50 L Ferritin Total Bilirubin Direct Bilirubin AST 120 H ALT 74 H Alkaline Phosphatase 306 H Ammonia Lactate Dehydrogenase Troponin T C-Reactive Protein Total Protein 4.5 L Albumin 2.0 L Triglycerides Cholesterol HDL Cholesterol Lipase Arterial Blood Glucose Arterial Blood Ionized Calcium Urine WBC (Auto) Salicylates Acetaminophen Coronavirus (PCR) 03/06/21 03/06/21 03/06/21 14:34 17:45 23:36 WBC RBC Hgb Hct MCV MCH RDW Seg Neutrophils % Monocytes % (Manual) Seg Neutrophils # Monocytes # (Manual) PT INR D-Dimer Heparin Anti-Xa Level ABG pH POC ABG pCO2 POC ABG pO2 ABG Hemoglobin ABG Oxyhemoglobin ABG Sodium ABG Potassium ABG Chloride ABG Glucose Carboxyhemoglobin Sodium Potassium Chloride Carbon Dioxide BUN Creatinine Glucose POC Glucose 140 H 209 H Lactic Acid Calcium Phosphorus Magnesium Ferritin Total Bilirubin Direct Bilirubin AST ALT Alkaline Phosphatase Ammonia Lactate Dehydrogenase Troponin T C-Reactive Protein Total Protein Albumin Triglycerides Cholesterol HDL Cholesterol Lipase Arterial Blood Glucose Arterial Blood Ionized Calcium Urine WBC (Auto) 103.0 H Salicylates Acetaminophen Coronavirus (PCR) 03/07/21 03/07/21 03/07/21 03:00 05:32 08:16 WBC RBC Hgb Hct MCV MCH RDW Seg Neutrophils % Monocytes % (Manual) Seg Neutrophils # Monocytes # (Manual) PT INR D-Dimer Heparin Anti-Xa Level ABG pH POC ABG pCO2 POC ABG pO2 ABG Hemoglobin 8.9 L ABG Oxyhemoglobin ABG Sodium 131.4 L ABG Potassium ABG Chloride ABG Glucose 224 H Carboxyhemoglobin Sodium 136 L Potassium Chloride 95.3 L Carbon Dioxide BUN 45 H Creatinine Glucose 210 H POC Glucose 213 H Lactic Acid Calcium 8.0 L Phosphorus Magnesium Ferritin Total Bilirubin 1.30 H Direct Bilirubin AST 144 H ALT 66 H Alkaline Phosphatase 335 H Ammonia Lactate Dehydrogenase Troponin T C-Reactive Protein Total Protein 4.9 L Albumin 2.1 L Triglycerides Cholesterol HDL Cholesterol Lipase Arterial Blood Glucose 224 H Arterial Blood Ionized Calcium 4.3 L Urine WBC (Auto) Salicylates Acetaminophen Coronavirus (PCR) 03/07/21 03/07/21 03/07/21 08:16 08:16 08:16 WBC RBC 2.47 L Hgb 8.2 L Hct 24.6 L MCV 100 H MCH 33 H RDW 18.1 H Seg Neutrophils % Monocytes % (Manual) Seg Neutrophils # Monocytes # (Manual) PT INR D-Dimer 403.72 H Heparin Anti-Xa Level ABG pH POC ABG pCO2 POC ABG pO2 ABG Hemoglobin ABG Oxyhemoglobin ABG Sodium ABG Potassium ABG Chloride ABG Glucose Carboxyhemoglobin Sodium Potassium Chloride Carbon Dioxide BUN Creatinine Glucose POC Glucose Lactic Acid Calcium Phosphorus Magnesium Ferritin Total Bilirubin Direct Bilirubin AST ALT Alkaline Phosphatase Ammonia Lactate Dehydrogenase 453 H Troponin T C-Reactive Protein 32.50 H Total Protein Albumin Triglycerides Cholesterol HDL Cholesterol Lipase Arterial Blood Glucose Arterial Blood Ionized Calcium Urine WBC (Auto) Salicylates Acetaminophen Coronavirus (PCR) 03/07/21 03/07/21 03/07/21 08:16 11:24 17:22 WBC RBC Hgb Hct MCV MCH RDW Seg Neutrophils % Monocytes % (Manual) Seg Neutrophils # Monocytes # (Manual) PT INR D-Dimer Heparin Anti-Xa Level ABG pH POC ABG pCO2 POC ABG pO2 ABG Hemoglobin ABG Oxyhemoglobin ABG Sodium ABG Potassium ABG Chloride ABG Glucose Carboxyhemoglobin Sodium Potassium Chloride Carbon Dioxide BUN Creatinine Glucose POC Glucose 205 H 211 H Lactic Acid Calcium Phosphorus Magnesium Ferritin > 2000.0 H Total Bilirubin Direct Bilirubin AST ALT Alkaline Phosphatase Ammonia Lactate Dehydrogenase Troponin T C-Reactive Protein Total Protein Albumin Triglycerides Cholesterol HDL Cholesterol Lipase Arterial Blood Glucose Arterial Blood Ionized Calcium Urine WBC (Auto) Salicylates Acetaminophen Coronavirus (PCR) 03/07/21 03/08/21 03/08/21 Unknown 00:05 04:00 WBC RBC Hgb Hct MCV MCH RDW Seg Neutrophils % Monocytes % (Manual) Seg Neutrophils # Monocytes # (Manual) PT INR D-Dimer Heparin Anti-Xa Level 0.94 H ABG pH 7.452 H POC ABG pCO2 POC ABG pO2 75.5 L ABG Hemoglobin 10.0 L ABG Oxyhemoglobin 93.5 L ABG Sodium 134.7 L ABG Potassium ABG Chloride ABG Glucose 268 H Carboxyhemoglobin 0.3 L Sodium Potassium Chloride Carbon Dioxide BUN Creatinine Glucose POC Glucose 253 H Lactic Acid Calcium Phosphorus Magnesium Ferritin Total Bilirubin Direct Bilirubin AST ALT Alkaline Phosphatase Ammonia Lactate Dehydrogenase Troponin T C-Reactive Protein Total Protein Albumin Triglycerides Cholesterol HDL Cholesterol Lipase Arterial Blood Glucose 268 H Arterial Blood Ionized Calcium 4.5 L Urine WBC (Auto) Salicylates Acetaminophen Coronavirus (PCR) 03/08/21 03/08/21 03/08/21 05:27 06:10 06:10 WBC RBC 2.62 L Hgb 8.4 L Hct 26.0 L MCV 100 H MCH RDW 18.0 H Seg Neutrophils % Monocytes % (Manual) Seg Neutrophils # Monocytes # (Manual) PT INR D-Dimer Heparin Anti-Xa Level ABG pH POC ABG pCO2 POC ABG pO2 ABG Hemoglobin ABG Oxyhemoglobin ABG Sodium ABG Potassium ABG Chloride ABG Glucose Carboxyhemoglobin Sodium Potassium Chloride Carbon Dioxide BUN 49 H Creatinine Glucose 280 H POC Glucose 273 H Lactic Acid Calcium Phosphorus Magnesium Ferritin Total Bilirubin Direct Bilirubin AST 130 H ALT 68 H Alkaline Phosphatase 440 H Ammonia Lactate Dehydrogenase Troponin T C-Reactive Protein Total Protein 5.3 L Albumin 1.9 L Triglycerides Cholesterol HDL Cholesterol Lipase Arterial Blood Glucose Arterial Blood Ionized Calcium Urine WBC (Auto) Salicylates Acetaminophen Coronavirus (PCR) 03/08/21 03/08/21 03/08/21 11:27 17:56 23:20 WBC RBC Hgb Hct MCV MCH RDW Seg Neutrophils % Monocytes % (Manual) Seg Neutrophils # Monocytes # (Manual) PT INR D-Dimer Heparin Anti-Xa Level ABG pH POC ABG pCO2 POC ABG pO2 ABG Hemoglobin ABG Oxyhemoglobin ABG Sodium ABG Potassium ABG Chloride ABG Glucose Carboxyhemoglobin Sodium Potassium Chloride Carbon Dioxide BUN Creatinine Glucose POC Glucose 258 H 279 H 289 H Lactic Acid Calcium Phosphorus Magnesium Ferritin Total Bilirubin Direct Bilirubin AST ALT Alkaline Phosphatase Ammonia Lactate Dehydrogenase Troponin T C-Reactive Protein Total Protein Albumin Triglycerides Cholesterol HDL Cholesterol Lipase Arterial Blood Glucose Arterial Blood Ionized Calcium Urine WBC (Auto) Salicylates Acetaminophen Coronavirus (PCR) 03/09/21 03/09/21 03/09/21 04:00 05:12 08:00 WBC RBC Hgb Hct MCV MCH RDW Seg Neutrophils % Monocytes % (Manual) Seg Neutrophils # Monocytes # (Manual) PT INR D-Dimer 249.59 H Heparin Anti-Xa Level ABG pH 7.456 H POC ABG pCO2 POC ABG pO2 ABG Hemoglobin 8.9 L ABG Oxyhemoglobin ABG Sodium 135.6 L ABG Potassium ABG Chloride ABG Glucose 298 H Carboxyhemoglobin 0.3 L Sodium Potassium Chloride Carbon Dioxide BUN Creatinine Glucose POC Glucose 267 H Lactic Acid Calcium Phosphorus Magnesium Ferritin Total Bilirubin Direct Bilirubin AST ALT Alkaline Phosphatase Ammonia Lactate Dehydrogenase Troponin T C-Reactive Protein Total Protein Albumin Triglycerides Cholesterol HDL Cholesterol Lipase Arterial Blood Glucose 298 H Arterial Blood Ionized Calcium 4.5 L Urine WBC (Auto) Salicylates Acetaminophen Coronavirus (PCR) 03/09/21 03/09/2103/09/21 08:00 08:00 08:00 WBC RBC Hgb Hct MCV MCH RDW Seg Neutrophils % Monocytes % (Manual) Seg Neutrophils # Monocytes # (Manual) PT INR D-Dimer Heparin Anti-Xa Level ABG pH POC ABG pCO2 POC ABG pO2 ABG Hemoglobin ABG Oxyhemoglobin ABG Sodium ABG Potassium ABG Chloride ABG Glucose Carboxyhemoglobin Sodium Potassium Chloride Carbon Dioxide BUN 44 H Creatinine Glucose 289 H POC Glucose Lactic Acid Calcium Phosphorus Magnesium Ferritin 2743.0 H Total Bilirubin Direct Bilirubin AST 134 H ALT 62 H Alkaline Phosphatase 527 H Ammonia Lactate Dehydrogenase 459 H Troponin T C-Reactive Protein 10.60 H Total Protein 5.0 L Albumin 2.2 L Triglycerides Cholesterol HDL Cholesterol Lipase Arterial Blood Glucose Arterial Blood Ionized Calcium Urine WBC (Auto) Salicylates Acetaminophen Coronavirus (PCR) 03/09/21 03/09/21 03/09/21 08:00 11:52 18:05 WBC RBC 2.60 L Hgb 8.5 L Hct 25.5 L MCV 98 H MCH 33 H RDW 18.1 H Seg Neutrophils % Monocytes % (Manual) Seg Neutrophils # Monocytes # (Manual) PT INR D-Dimer Heparin Anti-Xa Level ABG pH POC ABG pCO2 POC ABG pO2 ABG Hemoglobin ABG Oxyhemoglobin ABG Sodium ABG Potassium ABG Chloride ABG Glucose Carboxyhemoglobin Sodium Potassium Chloride Carbon Dioxide BUN Creatinine Glucose POC Glucose 306 H 293 H Lactic Acid Calcium Phosphorus Magnesium Ferritin Total Bilirubin Direct Bilirubin AST ALT Alkaline Phosphatase Ammonia Lactate Dehydrogenase Troponin T C-Reactive Protein Total Protein Albumin Triglycerides Cholesterol HDL Cholesterol Lipase Arterial Blood Glucose Arterial Blood Ionized Calcium Urine WBC (Auto) Salicylates Acetaminophen Coronavirus (PCR) 03/09/21 03/10/21 03/10/21 23:21 04:38 05:25 WBC RBC Hgb 8.6 L Hct 26.0 L MCV MCH RDW Seg Neutrophils % Monocytes % (Manual) Seg Neutrophils # Monocytes # (Manual) PT INR D-Dimer Heparin Anti-Xa Level ABG pH POC ABG pCO2 POC ABG pO2 ABG Hemoglobin ABG Oxyhemoglobin ABG Sodium ABG Potassium ABG Chloride ABG Glucose Carboxyhemoglobin Sodium Potassium Chloride Carbon Dioxide BUN Creatinine Glucose POC Glucose 306 H 310 H Lactic Acid Calcium Phosphorus Magnesium Ferritin Total Bilirubin Direct Bilirubin AST ALT Alkaline Phosphatase Ammonia Lactate Dehydrogenase Troponin T C-Reactive Protein Total Protein Albumin Triglycerides Cholesterol HDL Cholesterol Lipase Arterial Blood Glucose Arterial Blood Ionized Calcium Urine WBC (Auto) Salicylates Acetaminophen Coronavirus (PCR) 03/10/21 03/10/21 03/10/21 05:25 12:33 12:52 WBC RBC Hgb Hct MCV MCH RDW Seg Neutrophils % Monocytes % (Manual) Seg Neutrophils # Monocytes # (Manual) PT INR D-Dimer Heparin Anti-Xa Level ABG pH 7.487 H POC ABG pCO2 POC ABG pO2 62.1 L ABG Hemoglobin 9.4 L ABG Oxyhemoglobin 89.7 L ABG Sodium ABG Potassium ABG Chloride ABG Glucose 350 H Carboxyhemoglobin 0.2 L Sodium Potassium Chloride Carbon Dioxide 32 H BUN 45 H Creatinine Glucose 341 H POC Glucose 340 H Lactic Acid Calcium Phosphorus Magnesium Ferritin Total Bilirubin Direct Bilirubin AST ALT Alkaline Phosphatase Ammonia Lactate Dehydrogenase Troponin T C-Reactive Protein Total Protein Albumin Triglycerides Cholesterol HDL Cholesterol Lipase Arterial Blood Glucose 350 H Arterial Blood Ionized Calcium Urine WBC (Auto) Salicylates Acetaminophen Coronavirus (PCR) 03/10/21 03/10/21 03/11/21 17:05 22:57 04:58 WBC RBC Hgb Hct MCV MCH RDW Seg Neutrophils % Monocytes % (Manual) Seg Neutrophils # Monocytes # (Manual) PT INR D-Dimer Heparin Anti-Xa Level ABG pH POC ABG pCO2 POC ABG pO2 ABG Hemoglobin ABG Oxyhemoglobin ABG Sodium ABG Potassium ABG Chloride ABG Glucose Carboxyhemoglobin Sodium Potassium Chloride Carbon Dioxide BUN Creatinine Glucose POC Glucose 298 H 241 H 261 H Lactic Acid Calcium Phosphorus Magnesium Ferritin Total Bilirubin Direct Bilirubin AST ALT Alkaline Phosphatase Ammonia Lactate Dehydrogenase Troponin T C-Reactive Protein Total Protein Albumin Triglycerides Cholesterol HDL Cholesterol Lipase Arterial Blood Glucose Arterial Blood Ionized Calcium Urine WBC (Auto) Salicylates Acetaminophen Coronavirus (PCR) 03/11/21 03/11/21 03/11/21 06:54 06:54 06:54 WBC RBC Hgb Hct MCV MCH RDW Seg Neutrophils % Monocytes % (Manual) Seg Neutrophils # Monocytes # (Manual) PT INR D-Dimer 238.43 H Heparin Anti-Xa Level ABG pH POC ABG pCO2 POC ABG pO2 ABG Hemoglobin ABG Oxyhemoglobin ABG Sodium ABG Potassium ABG Chloride ABG Glucose Carboxyhemoglobin Sodium 146 H Potassium Chloride Carbon Dioxide 31 H BUN 41 H Creatinine Glucose 255 H POC Glucose Lactic Acid Calcium Phosphorus Magnesium Ferritin 3346.0 H Total Bilirubin Direct Bilirubin AST ALT Alkaline Phosphatase Ammonia Lactate Dehydrogenase 557 H Troponin T C-Reactive Protein 4.70 H Total Protein Albumin Triglycerides Cholesterol HDL Cholesterol Lipase Arterial Blood Glucose Arterial Blood Ionized Calcium Urine WBC (Auto) Salicylates Acetaminophen Coronavirus (PCR) 03/11/21 03/11/21 03/11/21 06:54 11:25 17:41 WBC RBC 2.76 L Hgb 8.9 L Hct 27.0 L MCV 98 H MCH RDW 18.3 H Seg Neutrophils % Monocytes % (Manual) Seg Neutrophils # Monocytes # (Manual) PT INR D-Dimer Heparin Anti-Xa Level ABG pH POC ABG pCO2 POC ABG pO2 ABG Hemoglobin ABG Oxyhemoglobin ABG Sodium ABG Potassium ABG Chloride ABG Glucose Carboxyhemoglobin Sodium Potassium Chloride Carbon Dioxide BUN Creatinine Glucose POC Glucose 255 H 292 H Lactic Acid Calcium Phosphorus Magnesium Ferritin Total Bilirubin Direct Bilirubin AST ALT Alkaline Phosphatase Ammonia Lactate Dehydrogenase Troponin T C-Reactive Protein Total Protein Albumin Triglycerides Cholesterol HDL Cholesterol Lipase Arterial Blood Glucose Arterial Blood Ionized Calcium Urine WBC (Auto) Salicylates Acetaminophen Coronavirus (PCR) 03/11/21 03/12/21 03/12/21 23:26 04:44 05:16 WBC RBC Hgb Hct MCV MCH RDW Seg Neutrophils % Monocytes % (Manual) Seg Neutrophils # Monocytes # (Manual) PT INR D-Dimer Heparin Anti-Xa Level ABG pH POC ABG pCO2 POC ABG pO2 ABG Hemoglobin ABG Oxyhemoglobin ABG Sodium ABG Potassium ABG Chloride ABG Glucose Carboxyhemoglobin Sodium Potassium Chloride Carbon Dioxide BUN Creatinine Glucose POC Glucose 289 H 255 H Lactic Acid Calcium Phosphorus Magnesium Ferritin Total Bilirubin Direct Bilirubin AST ALT Alkaline Phosphatase Ammonia Lactate Dehydrogenase Troponin T 0.149 H* C-Reactive Protein Total Protein Albumin Triglycerides Cholesterol HDL Cholesterol Lipase Arterial Blood Glucose Arterial Blood Ionized Calcium Urine WBC (Auto) Salicylates Acetaminophen Coronavirus (PCR) 03/12/21 03/12/21 03/12/21 12:02 15:00 17:28 WBC RBC Hgb Hct MCV MCH RDW Seg Neutrophils % Monocytes % (Manual) Seg Neutrophils # Monocytes # (Manual) PT INR D-Dimer Heparin Anti-Xa Level ABG pH POC ABG pCO2 POC ABG pO2 ABG Hemoglobin ABG Oxyhemoglobin ABG Sodium ABG Potassium ABG Chloride ABG Glucose Carboxyhemoglobin Sodium Potassium 3.2 L Chloride Carbon Dioxide BUN 39 H Creatinine 0.7 L Glucose 258 H POC Glucose 237 H 257 H Lactic Acid Calcium 8.3 L Phosphorus Magnesium Ferritin Total Bilirubin 2.20 H Direct Bilirubin AST 181 H ALT 129 H Alkaline Phosphatase 541 H Ammonia Lactate Dehydrogenase Troponin T C-Reactive Protein Total Protein 5.0 L Albumin 2.0 L Triglycerides Cholesterol HDL Cholesterol Lipase Arterial Blood Glucose Arterial Blood Ionized Calcium Urine WBC (Auto) Salicylates Acetaminophen Coronavirus (PCR) 03/12/21 03/12/21 03/13/21 21:51 23:15 05:44 WBC RBC Hgb Hct MCV MCH RDW Seg Neutrophils % Monocytes % (Manual) Seg Neutrophils # Monocytes # (Manual) PT INR D-Dimer Heparin Anti-Xa Level ABG pH POC ABG pCO2 POC ABG pO2 ABG Hemoglobin ABG Oxyhemoglobin ABG Sodium ABG Potassium ABG Chloride ABG Glucose Carboxyhemoglobin Sodium Potassium Chloride Carbon Dioxide BUN Creatinine Glucose POC Glucose 253 H 287 H 247 H Lactic Acid Calcium Phosphorus Magnesium Ferritin Total Bilirubin Direct Bilirubin AST ALT Alkaline Phosphatase Ammonia Lactate Dehydrogenase Troponin T C-Reactive Protein Total Protein Albumin Triglycerides Cholesterol HDL Cholesterol Lipase Arterial Blood Glucose Arterial Blood Ionized Calcium Urine WBC (Auto) Salicylates Acetaminophen Coronavirus (PCR) 03/13/21 03/13/21 03/14/21 17:03 23:31 03:40 WBC RBC Hgb Hct MCV MCH RDW Seg Neutrophils % Monocytes % (Manual) Seg Neutrophils # Monocytes # (Manual) PT INR D-Dimer 475.91 H Heparin Anti-Xa Level ABG pH POC ABG pCO2 POC ABG pO2 ABG Hemoglobin ABG Oxyhemoglobin ABG Sodium ABG Potassium ABG Chloride ABG Glucose Carboxyhemoglobin Sodium Potassium Chloride Carbon Dioxide BUN Creatinine Glucose POC Glucose 228 H 275 H Lactic Acid Calcium Phosphorus Magnesium Ferritin Total Bilirubin Direct Bilirubin AST ALT Alkaline Phosphatase Ammonia Lactate Dehydrogenase Troponin T C-Reactive Protein Total Protein Albumin Triglycerides Cholesterol HDL Cholesterol Lipase Arterial Blood Glucose Arterial Blood Ionized Calcium Urine WBC (Auto) Salicylates Acetaminophen Coronavirus (PCR) 03/14/21 03/14/21 03/14/21 03:40 03:40 03:40 WBC RBC 2.25 L Hgb 7.4 L Hct 22.2 L MCV 99 H MCH 33 H RDW 18.5 H Seg Neutrophils % Monocytes % (Manual) Seg Neutrophils # Monocytes # (Manual) PT INR D-Dimer Heparin Anti-Xa Level ABG pH POC ABG pCO2 POC ABG pO2 ABG Hemoglobin ABG Oxyhemoglobin ABG Sodium ABG Potassium ABG Chloride ABG Glucose Carboxyhemoglobin Sodium Potassium 3.3 L Chloride Carbon Dioxide 37 H D BUN 24 H Creatinine 0.6 L Glucose 180 H POC Glucose Lactic Acid Calcium Phosphorus Magnesium Ferritin 3103.0 H Total Bilirubin 1.60 H Direct Bilirubin AST 283 H ALT 188 H Alkaline Phosphatase 619 H Ammonia Lactate Dehydrogenase 588 H Troponin T C-Reactive Protein 4.00 H Total Protein 4.8 L Albumin 2.2 L Triglycerides Cholesterol HDL Cholesterol Lipase Arterial Blood Glucose Arterial Blood Ionized Calcium Urine WBC (Auto) Salicylates Acetaminophen Coronavirus (PCR) 03/15/21 03/15/21 03/15/21 00:34 05:00 05:00 WBC RBC 2.40 L Hgb 7.8 L Hct 23.6 L MCV 99 H MCH 33 H RDW 18.3 H Seg Neutrophils % Monocytes % (Manual) Seg Neutrophils # Monocytes # (Manual) PT INR D-Dimer Heparin Anti-Xa Level ABG pH POC ABG pCO2 POC ABG pO2 ABG Hemoglobin ABG Oxyhemoglobin ABG Sodium ABG Potassium ABG Chloride ABG Glucose Carboxyhemoglobin Sodium Potassium Chloride Carbon Dioxide BUN Creatinine 0.6 L Glucose 238 H POC Glucose 287 H Lactic Acid Calcium 8.0 L Phosphorus Magnesium Ferritin Total Bilirubin 1.50 H Direct Bilirubin AST 189 H ALT 208 H Alkaline Phosphatase 659 H Ammonia Lactate Dehydrogenase Troponin T C-Reactive Protein Total Protein 5.1 L Albumin 2.1 L Triglycerides Cholesterol HDL Cholesterol Lipase Arterial Blood Glucose Arterial Blood Ionized Calcium Urine WBC (Auto) Salicylates Acetaminophen Coronavirus (PCR) 03/15/21 03/15/21 03/15/21 05:05 11:37 16:34 WBC RBC Hgb Hct MCV MCH RDW Seg Neutrophils % Monocytes % (Manual) Seg Neutrophils # Monocytes # (Manual) PT INR D-Dimer Heparin Anti-Xa Level ABG pH POC ABG pCO2 POC ABG pO2 ABG Hemoglobin ABG Oxyhemoglobin ABG Sodium ABG Potassium ABG Chloride ABG Glucose Carboxyhemoglobin Sodium Potassium Chloride Carbon Dioxide BUN Creatinine Glucose POC Glucose 238 H 236 H 280 H Lactic Acid Calcium Phosphorus Magnesium Ferritin Total Bilirubin Direct Bilirubin AST ALT Alkaline Phosphatase Ammonia Lactate Dehydrogenase Troponin T C-Reactive Protein Total Protein Albumin Triglycerides Cholesterol HDL Cholesterol Lipase Arterial Blood Glucose Arterial Blood Ionized Calcium Urine WBC (Auto) Salicylates Acetaminophen Coronavirus (PCR) 03/15/21 03/16/21 03/16/21 23:05 04:39 05:00 WBC RBC Hgb Hct MCV MCH RDW Seg Neutrophils % Monocytes % (Manual) Seg Neutrophils # Monocytes # (Manual) PT INR D-Dimer Heparin Anti-Xa Level ABG pH POC ABG pCO2 POC ABG pO2 ABG Hemoglobin ABG Oxyhemoglobin ABG Sodium ABG Potassium ABG Chloride ABG Glucose Carboxyhemoglobin Sodium Potassium Chloride Carbon Dioxide 33 H BUN Creatinine 0.5 L Glucose 195 H POC Glucose 336 H 205 H Lactic Acid Calcium Phosphorus Magnesium Ferritin Total Bilirubin Direct Bilirubin AST ALT Alkaline Phosphatase Ammonia Lactate Dehydrogenase Troponin T C-Reactive Protein Total Protein Albumin Triglycerides Cholesterol HDL Cholesterol Lipase Arterial Blood Glucose Arterial Blood Ionized Calcium Urine WBC (Auto) Salicylates Acetaminophen Coronavirus (PCR) 03/16/21 03/17/21 03/17/21 11:37 04:50 13:37 WBC RBC 2.52 L Hgb 8.6 L Hct 25.0 L MCV 99 H MCH 34 H RDW 18.1 H Seg Neutrophils % Monocytes % (Manual) Seg Neutrophils # Monocytes # (Manual) PT INR D-Dimer Heparin Anti-Xa Level ABG pH POC ABG pCO2 POC ABG pO2 ABG Hemoglobin ABG Oxyhemoglobin ABG Sodium ABG Potassium ABG Chloride ABG Glucose Carboxyhemoglobin Sodium Potassium Chloride Carbon Dioxide BUN Creatinine Glucose POC Glucose 222 H 113 H Lactic Acid Calcium Phosphorus Magnesium Ferritin Total Bilirubin Direct Bilirubin AST ALT Alkaline Phosphatase Ammonia Lactate Dehydrogenase Troponin T C-Reactive Protein Total Protein Albumin Triglycerides Cholesterol HDL Cholesterol Lipase Arterial Blood Glucose Arterial Blood Ionized Calcium Urine WBC (Auto) Salicylates Acetaminophen Coronavirus (PCR) 03/17/21 03/17/21 03/17/21 13:37 13:41 18:29 WBC RBC Hgb Hct MCV MCH RDW Seg Neutrophils % Monocytes % (Manual) Seg Neutrophils # Monocytes # (Manual) PT INR D-Dimer Heparin Anti-Xa Level ABG pH POC ABG pCO2 POC ABG pO2 ABG Hemoglobin ABG Oxyhemoglobin ABG Sodium ABG Potassium ABG Chloride ABG Glucose Carboxyhemoglobin Sodium Potassium 3.5 L Chloride Carbon Dioxide BUN Creatinine 0.4 L Glucose 174 H POC Glucose 176 H 180 H Lactic Acid Calcium Phosphorus Magnesium Ferritin Total Bilirubin Direct Bilirubin AST ALT Alkaline Phosphatase Ammonia Lactate Dehydrogenase Troponin T C-Reactive Protein Total Protein Albumin Triglycerides Cholesterol HDL Cholesterol Lipase Arterial Blood Glucose Arterial Blood Ionized Calcium Urine WBC (Auto) Salicylates Acetaminophen Coronavirus (PCR) 03/17/21 03/18/21 03/18/21 23:06 05:50 07:53 WBC RBC 2.46 L Hgb 7.9 L Hct 24.5 L MCV 100 H MCH RDW 18.0 H Seg Neutrophils % Monocytes % (Manual) Seg Neutrophils # Monocytes # (Manual) PT INR D-Dimer Heparin Anti-Xa Level ABG pH POC ABG pCO2 POC ABG pO2 ABG Hemoglobin ABG Oxyhemoglobin ABG Sodium ABG Potassium ABG Chloride ABG Glucose Carboxyhemoglobin Sodium Potassium Chloride Carbon Dioxide BUN Creatinine Glucose POC Glucose 127 H 108 H Lactic Acid Calcium Phosphorus Magnesium Ferritin Total Bilirubin Direct Bilirubin AST ALT Alkaline Phosphatase Ammonia Lactate Dehydrogenase Troponin T C-Reactive Protein Total Protein Albumin Triglycerides Cholesterol HDL Cholesterol Lipase Arterial Blood Glucose Arterial Blood Ionized Calcium Urine WBC (Auto) Salicylates Acetaminophen Coronavirus (PCR) 03/18/21 03/18/21 03/18/21 07:53 07:53 11:43 WBC RBC Hgb Hct MCV MCH RDW Seg Neutrophils % Monocytes % (Manual) Seg Neutrophils # Monocytes # (Manual) PT INR D-Dimer Heparin Anti-Xa Level ABG pH POC ABG pCO2 POC ABG pO2 ABG Hemoglobin ABG Oxyhemoglobin ABG Sodium ABG Potassium ABG Chloride ABG Glucose Carboxyhemoglobin Sodium Potassium Chloride Carbon Dioxide 31 H BUN Creatinine 0.4 L Glucose POC Glucose 158 H Lactic Acid Calcium 8.3 L Phosphorus Magnesium Ferritin Total Bilirubin Direct Bilirubin AST ALT Alkaline Phosphatase Ammonia Lactate Dehydrogenase Troponin T 0.185 H* C-Reactive Protein Total Protein Albumin Triglycerides Cholesterol HDL Cholesterol Lipase Arterial Blood Glucose Arterial Blood Ionized Calcium Urine WBC (Auto) Salicylates Acetaminophen Coronavirus (PCR) 03/18/21 03/18/21 03/19/21 16:36 18:03 04:48 WBC RBC Hgb Hct MCV MCH RDW Seg Neutrophils % Monocytes % (Manual) Seg Neutrophils # Monocytes # (Manual) PT INR D-Dimer Heparin Anti-Xa Level ABG pH POC ABG pCO2 POC ABG pO2 ABG Hemoglobin ABG Oxyhemoglobin ABG Sodium ABG Potassium ABG Chloride ABG Glucose Carboxyhemoglobin Sodium Potassium Chloride Carbon Dioxide BUN Creatinine Glucose POC Glucose 133 H 130 H 107 H Lactic Acid Calcium Phosphorus Magnesium Ferritin Total Bilirubin Direct Bilirubin AST ALT Alkaline Phosphatase Ammonia Lactate Dehydrogenase Troponin T C-Reactive Protein Total Protein Albumin Triglycerides Cholesterol HDL Cholesterol Lipase Arterial Blood Glucose Arterial Blood Ionized Calcium Urine WBC (Auto) Salicylates Acetaminophen Coronavirus (PCR) 03/19/21 03/19/21 03/20/21 12:47 22:05 13:05 WBC RBC Hgb Hct MCV MCH RDW Seg Neutrophils % Monocytes % (Manual) Seg Neutrophils # Monocytes # (Manual) PT INR D-Dimer Heparin Anti-Xa Level ABG pH POC ABG pCO2 POC ABG pO2 ABG Hemoglobin ABG Oxyhemoglobin ABG Sodium ABG Potassium ABG Chloride ABG Glucose Carboxyhemoglobin Sodium Potassium Chloride Carbon Dioxide BUN Creatinine Glucose POC Glucose 121 H 123 H 116 H Lactic Acid Calcium Phosphorus Magnesium Ferritin Total Bilirubin Direct Bilirubin AST ALT Alkaline Phosphatase Ammonia Lactate Dehydrogenase Troponin T C-Reactive Protein Total Protein Albumin Triglycerides Cholesterol HDL Cholesterol Lipase Arterial Blood Glucose Arterial Blood Ionized Calcium Urine WBC (Auto) Salicylates Acetaminophen Coronavirus (PCR) 03/20/21 03/21/21 03/21/21 16:47 06:46 10:30 WBC RBC Hgb Hct MCV MCH RDW Seg Neutrophils % Monocytes % (Manual) Seg Neutrophils # Monocytes # (Manual) PT INR D-Dimer Heparin Anti-Xa Level ABG pH POC ABG pCO2 POC ABG pO2 ABG Hemoglobin ABG Oxyhemoglobin ABG Sodium ABG Potassium ABG Chloride ABG Glucose Carboxyhemoglobin Sodium Potassium Chloride Carbon Dioxide BUN Creatinine Glucose POC Glucose 112 H 117 H Lactic Acid Calcium Phosphorus Magnesium Ferritin Total Bilirubin Direct Bilirubin AST ALT Alkaline Phosphatase Ammonia Lactate Dehydrogenase Troponin T C-Reactive Protein Total Protein Albumin Triglycerides Cholesterol HDL Cholesterol Lipase Arterial Blood Glucose Arterial Blood Ionized Calcium Urine WBC (Auto) Salicylates Acetaminophen Coronavirus (PCR) Positive A 03/21/21 03/21/21 03/21/21 11:46 13:30 16:50 WBC RBC Hgb Hct MCV MCH RDW Seg Neutrophils % Monocytes % (Manual) Seg Neutrophils # Monocytes # (Manual) PT INR D-Dimer Heparin Anti-Xa Level ABG pH POC ABG pCO2 POC ABG pO2 ABG Hemoglobin ABG Oxyhemoglobin ABG Sodium ABG Potassium ABG Chloride ABG Glucose Carboxyhemoglobin Sodium 136 L D Potassium 3.2 L Chloride 95.9 L Carbon Dioxide BUN Creatinine 0.4 L Glucose 105 H POC Glucose 107 H 106 H Lactic Acid Calcium 7.9 L Phosphorus Magnesium Ferritin Total Bilirubin Direct Bilirubin AST ALT Alkaline Phosphatase Ammonia Lactate Dehydrogenase Troponin T C-Reactive Protein Total Protein Albumin Triglycerides Cholesterol HDL Cholesterol Lipase Arterial Blood Glucose Arterial Blood Ionized Calcium Urine WBC (Auto) Salicylates Acetaminophen Coronavirus (PCR) 03/21/21 03/22/21 03/22/21 21:26 06:30 09:55 WBC RBC Hgb Hct MCV MCH RDW Seg Neutrophils % Monocytes % (Manual) Seg Neutrophils # Monocytes # (Manual) PT INR D-Dimer Heparin Anti-Xa Level ABG pH POC ABG pCO2 POC ABG pO2 ABG Hemoglobin ABG Oxyhemoglobin ABG Sodium ABG Potassium ABG Chloride ABG Glucose Carboxyhemoglobin Sodium Potassium 2.7 L* Chloride Carbon Dioxide BUN Creatinine 0.6 L Glucose POC Glucose 113 H Lactic Acid Calcium 7.7 L Phosphorus Magnesium 1.60 L Ferritin Total Bilirubin Direct Bilirubin AST ALT Alkaline Phosphatase Ammonia Lactate Dehydrogenase Troponin T C-Reactive Protein Total Protein Albumin Triglycerides Cholesterol HDL Cholesterol Lipase Arterial Blood Glucose Arterial Blood Ionized Calcium Urine WBC (Auto) Salicylates Acetaminophen Coronavirus (PCR) 03/22/21 03/22/21 03/22/21 12:27 14:44 17:48 WBC RBC Hgb Hct MCV MCH RDW Seg Neutrophils % Monocytes % (Manual) Seg Neutrophils # Monocytes # (Manual) PT INR D-Dimer Heparin Anti-Xa Level ABG pH POC ABG pCO2 POC ABG pO2 ABG Hemoglobin ABG Oxyhemoglobin ABG Sodium ABG Potassium ABG Chloride ABG Glucose Carboxyhemoglobin Sodium Potassium 2.9 L* Chloride Carbon Dioxide BUN Creatinine Glucose POC Glucose 110 H 110 H Lactic Acid Calcium Phosphorus Magnesium Ferritin Total Bilirubin Direct Bilirubin AST ALT Alkaline Phosphatase Ammonia Lactate Dehydrogenase Troponin T C-Reactive Protein Total Protein Albumin Triglycerides Cholesterol HDL Cholesterol Lipase Arterial Blood Glucose Arterial Blood Ionized Calcium Urine WBC (Auto) Salicylates Acetaminophen Coronavirus (PCR) 03/22/21 03/23/21 03/23/21 23:20 08:35 17:23 WBC RBC Hgb Hct MCV MCH RDW Seg Neutrophils % Monocytes % (Manual) Seg Neutrophils # Monocytes # (Manual) PT INR D-Dimer Heparin Anti-Xa Level ABG pH POC ABG pCO2 POC ABG pO2 ABG Hemoglobin ABG Oxyhemoglobin ABG Sodium ABG Potassium ABG Chloride ABG Glucose Carboxyhemoglobin Sodium Potassium Chloride Carbon Dioxide BUN Creatinine 0.6 L Glucose POC Glucose 107 H 121 H Lactic Acid Calcium 8.2 L Phosphorus Magnesium Ferritin Total Bilirubin Direct Bilirubin AST ALT Alkaline Phosphatase Ammonia Lactate Dehydrogenase Troponin T C-Reactive Protein Total Protein Albumin Triglycerides Cholesterol HDL Cholesterol Lipase Arterial Blood Glucose Arterial Blood Ionized Calcium Urine WBC (Auto) Salicylates Acetaminophen Coronavirus (PCR) Allied health notes reviewed: nursing
[2021-03-24] MEDS: INSULIN REGULAR, HUMAN 100 UNITS/1 ML SUB-Q SCH ×3 (01:50→14:28)
[2021-03-24] MEDS: ZINC SULFATE 220 MG CAP PO SCH ×3 (01:54→21:27)
[2021-03-24] MEDS: ENOXAPARIN 150 MG/1 ML INJ SUB-Q SCH ×2 (09:02→21:45)
[2021-03-24] MEDS: CHOLECALCIFEROL (VIT D3) 5,000 UNIT TAB PO SCH (09:03)
[2021-03-24] MEDS: FAMOTIDINE 20 MG TAB PO SCH ×2 (09:03→21:27)
[2021-03-24] MEDS: PREGABALIN 50 MG CAP PO SCH ×3 (09:03→21:26)
[2021-03-24] MEDS: ASPIRIN 81 MG TAB CHEW PO SCH (09:03)
[2021-03-24] MEDS: FUROSEMIDE 40 MG TAB PO SCH (09:03)
[2021-03-24] MEDS: SENNOSIDES/DOCUSATE SODIUM 8.6/50 MG TAB FEEDTUBE SCH ×2 (09:03→21:27)
[2021-03-24] MEDS: CALCIUM CARB/VIT D3/MINERALS 600 MG/800 UNITS TAB PO SCH ×2 (09:03→21:26)
[2021-03-24] MEDS: guaiFENesin ER 600 MG TAB PO SCH ×2 (09:03→21:26)
[2021-03-24] MEDS: ASCORBIC ACID 500 MG TAB PO SCH ×2 (09:04→21:27)
--- NOTE | 2021-03-24 10:06 | Progress Note ---
Assessment and Plan Continue Diltiazem and other management. - Patient Problems (1) Acute and chronic respiratory failure ([id number]) Current Visit: Yes Status: Acute (2) Pneumonia due to COVID-19 virus Current Visit: Yes Status: Acute (3) Encephalopathy Current Visit: Yes Status: Acute (4) PSVT (paroxysmal supraventricular tachycardia) Current Visit: Yes Status: Acute (5) Chronic heart failure with preserved ejection fraction (HFpEF) Current Visit: Yes Status: Chronic (6) COPD (chronic obstructive pulmonary disease) Current Visit: Yes Status: Chronic (7) ALPHOSNO (acute kidney injury) Current Visit: Yes Status: Acute (8) Acute deep vein thrombosis (DVT) of right lower extremity Current Visit: Yes Status: Acute (9) Non-STEMI (non-ST elevated myocardial infarction) Current Visit: Yes Status: Acute (10) History of pulmonary embolus (PE) Current Visit: Yes Status: Chronic Subjective Date of service: 03/24/21 Principal diagnosis: Ac hypoxemic resp failure; NSTEMI; ALPHONSO; Sepsis; PNA; CHF; DM II; AMS Interval history: No significant changes overnight. In sinus tachycardia in the 120s. Objective Vital Signs Temp Pulse Pulse Resp BP Pulse Ox 03/24/21 06:44 116 H 114/57 03/24/21 04:32 95 03/24/21 03:24 99.4 F 115 H 20 106/56 94 03/23/21 22:01 99.3 F 117 H 16 125/61 92 03/23/21 22:00 117 H 16 92 03/23/21 21:46 100 03/23/21 17:26 98.0 F 114 H 26 H 111/68 89 03/23/21 15:53 94 03/23/21 13:02 98.2 F 36 L 26 H 118/68 89 - Physical Examination General: No Apparent Distress HEENT: Positive: Normocephaly, Mucus Membranes Moist Neck: Positive: trachea midline Cardiac: Positive: Reg Rate and Rhythm, S1/S2 Lungs: Positive: clear to auscultation Neuro: Positive: Grossly Intact Abdomen: Positive: Soft, Active Bowel Sounds Skin: Negative: Rash Musculoskeletal: No Fluid Collection Extremities: Present: edema, +1 Edema, warm, Other (anasarca) - Imaging and Cardiology Echo: report reviewed (12/2020 - EF 55-60%) Cardiac cath: pending - Telemetry EKG Rhythm: Sinus Tachycardia - EKG Ventricular dysrhythmias: supraventricular captures AV and intraventricular conduction: right bundle branch block Repolarization changes or abnormalities: nonspecific abnormality, ST segment, and/or T wave - Allied health notes Allied health notes reviewed: nursing
--- NOTE | 2021-03-24 12:30 | Progress Note ---
Subjective Date of service: 03/24/21 Principal diagnosis: Ac hypoxemic resp failure; NSTEMI; ALPHONSO; Sepsis; PNA; CHF; DM II; AMS Interval history: This is a 51-year-old -[place]ish male with COPD with chronic respiratory failure, CHFpEF, diabetes mellitus, DVT/PE on coumadin and hypertension who presented to [facility] via EMS for AMS and hypoxia. On arrival of EMS oxygen saturation was about 88% on room air, blood pressure was said to be about 88/50 mmHg. Work-up in the emergency room reveals leukocytosis of 12.7, hemoglobin of 9.1 and hematocrit of 27.7, sodium of 132, lactic acid of 2.90, elevated liver enzymes and elevated troponin at 0.493. A CT of the chest showed findings concerning for atelectasis and or infiltrate, CT of the head was unremarkable. Patient was in severe respiratory distress upon arrival in the emergency room and subsequently intubated. Patient was admitted to the hospitalist service with consults to cardiology, CCM, GI, and neprohology for severe sepsis, respiratory failure, pneumonia and ALPHONSO. Of note patient was admitted to [facility] from 12/12-01/14 and was on HD during that admit. 03/03/21: Patient remains intubated, continue on heparin drip, monitor H&H and BMP. Continue empiric antibiotics, ID following. Follow ammonia level and LFT. According to cardiology patient indeed had preserved EF during his recent admis sukumar to [place]. Plan to repeat 2D echo. Critical care following, wean off from vent as tolerated. 03/04: RN reported blood y secretions in OETT and clots, heparin gtt stopped and B LE US obtained which shows DVT, abx deescalated, heparin gtt restarted. 03/05: RN reported vomiting x1, promithazine x1 given, Qtc at 599 on EKG. AM labs pending. tmax 102.2, reculture with next spike, COVID 19 PCR. abx stopped re prolonged qtc and received CAP coverage. 03/06: Reported high TF residual, COVID PCR pending. Cr better today. tmax 100.7 03/07: valerie placed yesterday, started on remdesivir re positive covid. ID consulted yesterday. SHERYL overnight. 03/08: SHERYL reported overnight. Patient is now hypertensive and midodrine has been held. Will now place on low dose antihtn and prn hydral. 03/09: Patient reportedly through tube and OETT was exchanged, patient was given paralytic for exchange. No acute events reported overnight. Patient noted to be hypertensive and we will trial Lasix again today. 03/10: PSV trial today. fentayl was stopped. BP maintaining. SHERYL overnight. 03/11: Patient was extuabted, awaiting Speech therapy, discussed with nursing staff at bedside, considering Hypertensive urgency, will do a bedside swallow eval and give oral meds if passed. Continue aspiration precautions. The patient has hx of Asthma, continue neb treatment. 03/12: Patient remains in ICU care secondary to SVT and unstable hemodynamics. Cardiology reevaluated patient was given adenosine and started on amnio drip. Still awaiting speech therapy evaluation although considering her current condition we will keep the patient n.p.o. Case discussed with assembly repairer and industrial hygenist. Monitor electrolytes and correct as needed. 03/13: Patient this morning remains in normal sinus rhythm following the adenosine and amnio drip which is still going the latter I mean. I will start the patient on Lasix for 3 days and monitor her renal function. Patient is already on high dose of dexamethasone considering his history of bronchospasm disease. We will repeat a pulmonary evaluation we will correct electrolytes especially with the Lasix. CCT 35 pLAN DISCUSSED WITH THE PATIENT AND NURSE 03/14: Patient unfortunately is declining continues on high flow -70% intermittent altered mental status refusing all treatment plan. Psych saw the patient recommended Geodon as needed. Will transition some medications to IV. Continue encouraging patient to use BiPAP. Continue nebulizer treatment and steroid therapy. Pulmonary and cardiology input also appreciated. 03/15: Patient seen and examined, continue to wean oxygen flow as tolerated, Electrolytes replacement protocol inplace, LFT still elevated but trending down some. Again counselling provided to the patient about compliance. Adjust insulin. 03/16: Patient down to 50% FiO2 was saturating 92%. Will transfer to [facility]. Clinically he is showing some improvement. Continue restraints for supportive care continue to monitor for intermittent delirium. 03/17: Patient still with intermittent delirium sometimes refusing medication. Restraints has been renewed for safety as he did take off his oxygen yesterday and desatted to the 70s. His saturation is back to 90-92% with FiO2 of 50% of the high flow. Continue supportive care pulmonary input and ID input noted. 03/18: Continue full supportive care, ideally prone if able, called to update fami ly, continue supportive care, patient treated with -IV/PO Dexamethasone 10 mg daily x 10 days, higher dose due to morbid obesity. Ended 03/15/2021 -Completed Remdesivir still high risk due to hypoxia treatment being complicated by the delirium 03/19; patient is on 30 L of high flow oxygen with FiO2 of 96%. Patient completed remdesivir and Decadron. Patient is still high risk because of hypoxia. Patient has right posterior tibial vein occlusive thrombus and on therapeutic Lovenox. 03/20; on 25 L of high flow oxygen with FiO2 of 45%. Completed Decadron and remdesivir. Patient has DVT and on therapeutic Lovenox. Discussed with case management for possible LTAC placement. 03/21; patient is on 25 L of high flow oxygen. Completed remdesivir and Decadron. Patient did have any urine output and we are going to check bladder scan and give him Lasix 80 mg IV 1 times. Patient is on p.o. Lasix 80 mg daily. Echo was done and was unremarkable. Case management is working to find LTAC place for him. Patient accepted by [facility] pending authorization. 03/22; patient is on 20 L of high flow oxygen with FiO2 of 60%. Patient has severe hypokalemia and was given IV potassium and will check potassium level and repleted according to electrolyte replacement protocol. Patient accepted by [facility] pending authorization. 03/23; patient is on 20 L of high flow oxygen with FiO2 of 60%. Patient has severe hypokalemia and was given IV potassium and will check potassium level and repleted according to electrolyte replacement protocol. Patient accepted by [facility] pending authorization. 03/24 patient is awake and alert eating well, complains of pain in both legs and arms. Denies any chest pain or shortness of breath. Denies fever or chills All interdisciplinary notes reviewed. Lab results reviewed, Assessment and plan: This is a a 51 year old male admitted for for severe sepsis, respiratory failure, pneumonia and ALPHONSO. PMH: COPD, CHF, DM, DVT/PE, HTN, KAM, obesity, asthma PSx: none reported home meds: albuterol sulfate, advair, HCTZ, atrovent, glucophage, Klor-Con, midodrine, metoprolol, lasix, lantus, coumadin (from audit and home meds reconciliation) Social: unknown A/P Neuro: Metabolic encephalopathy -Resolving -Now extbated Cardio: SR/ST: Acute on Chronic HFpEF (per cards), NSTEMI, h/o HTN, HLD, Prolonged QTc, SVT -Cardiology consulted, appreciate recommendations -midodrine d/c r/t HTN -BP monitoring per protocol -Labetalol PO -Per cardiology: 1. gentle IV diuresis when able 2. Echo 12/13/2020 - EF 55-60%, otherwise technically difficult study. Echo 05/2016 - LV mildly dilated, EF 55-60%, grade II diastolic dysfxn, RV mildly enlarged, normal RV sys fxn, LA mildly dilated, RA mildly dilated, mild-mod AR, mild IL, mild aortic root dilatation. Resp: Acute on chronic hypoxic respiratory failure, Bilateral PNA, hx COPD, KAM, asthma, ?PE -Patient is on 40 L and 100% FiO2 via high flow/wean as tolerated -Intubated 03/01, tube exchange 03/09 OETT 8/0 @ 25 lip -EXTUBATED 03/10 -Continuos SPO2 monitoring -abx with levaquin (03/02-03/07)-DC 03/05 r/t prolonged QTc -03/01 CT chest shows several pulmonary nodules within Right lung measuring 6-8 mm, increased interstitial prominence -? f/u outpt with PCP/pulmanology - History of KAM Will start on CPAP at bedtime GI: Transaminitis, TF -GI consulted, appreciate recommendations -Trend LFTs -RUQ US shows no evidence of cholelithiasis, cholecytitis or choledocholithisis -CT abd/pelvis showed fatty infiltration of liver -Continue PPI : ALPHONSO (stable/resolved) -Nephrology consulted, appreciate recommendations -Pt was on HD at recent hospitalization at OSH -Renally dose mediations -Avoid nephrotoxic medications -Strict I&Os -Renal US shows no significant abnormality -Daily weights Heme: DVT-R posterior tibial vein, h/o LLE DVT (December 2019)/ PE (failed Xa inhibitors per cards; on home coumadin) -evidenced on BLE Doppler US -Continue lovenox subq (03/09) -SCDs while in bed -Per cards: Eventually plan to transition to Coumadin ID: Severe Sepsis, B PNA, COVID 19 infection -s/p abx therapy (azithromycin 03/01-03/02, aztreonam 03/02, cefepime 03/01-03/02, levaquin 03/02-03/05, flagyl 03/01-03/02, vancomycin 03/01-03/02) -VAP bundle -MRSA (+) nares -COVID 19 PCR (+) -Decadron for 10 days (03/06-03/15) -Remdesivir (03/06-03/10) -Contact/Droplet precautions -03/01 BCx2 with NGTD, UC with NGTD, sputum culture normal sole -03/06 BC NGTD -Prone as tolerated -Vit C/D/Zinc Morbid obesity Counseling when he is stable and ready to be discharged - Physical exam Narrative exam: Patient is on 20 L/60% FiO2 high flow oxygen The patient is morbidly obese. Vital signs as documented. Head exam is unremarkable. No scleral icterus . Neck is without jugular venous distension, thyromegaly, or carotid bruits. Lungs decreased air entry. Cardiac exam reveals regular rate and Rhythm. Abdominal exam reveals normal bowel sounds, nontender Extremities 3+ bilateral lower extremity edema COMMODITY TRADER: Alert and oriented x3. Moves extremities. Objective - Constitutional Vitals: Vital Signs - 12hr 03/24/21 03/24/21 03/24/21 03:24 04:32 06:44 Temperature 99.4 F Pulse Rate 115 H 116 H Respiratory 20 Rate Blood Pressure 106/56 114/57 O2 Sat by Pulse 94 95 Oximetry - Labs CBC & Chem 7: 03/18/21 07:53 03/23/21 08:35 Labs: Abnormal lab results 03/23/21 03/23/21 03/24/21 Range/Units 17:23 22:00 06:28 POC Glucose 121 H 116 H 121 H (70-105) mg/dL HEART Score - HEART Score Troponin: Troponin T 0.185 ng/mL (0.00-0.029) H* 03/18/21 07:53
--- NOTE | 2021-03-24 17:16 | Progress Note ---
Assessment and Plan 51-year-old -[place] male with known history of COPD, CHF, diabetes mellitus, DVT and hypertension was brought into the emergency room by EMS for altered mental status and hypoxia. According to EMS patient was discharged from [facility] after treatment for CHF exacerbation. Patient was found to be altered upon waking up and on arrival of EMS oxygen saturation was about 88% on room air, blood pressure was said to be about 88/50 mmHg.Was subsequently placed on 5 L of oxygen by nasal cannula with improvement in his oxygen saturation. According to who was by the bedside patient was having some mild cough which was nonproductive. He has had no fever or chills. There has been no nausea or vomiting or abdominal pain. Patient has been fully vaccinated against COVID-19. Work-up in the emergency room, labs reveals leukocytosis of 12.7, hemoglobin of 9.1 and hematocrit of 27.7, sodium of 132, lactic acid of 2.90. Liver enzymes were abnormally elevated, troponin was also bumped at 0.493. CT of the chest shows findings concerning for atelectasis and or infiltrate, CT of the head was unremarkable. Patient was in severe respiratory distress upon arrival in the emergency room and subsequently intubated. Patient currently being admitted for mainly severe sepsis, respiratory failure, pneumonia and ALPHONSO. Patient is awake., on vapotherm, FIO2 60% and O2 sat 100%. BIPAP stand by in the room. He is in no acute respiratory distress. Patient is afebrile. Has no leukocytosis. Hemoglobin 7.9. Hematocrit 24.9. Troponin: 0.185. Patient's Sanchez virus PCR is Positive. Cxray on 03/14/21 reported: reported Bibasilar pleural-parenchymal densities . No pneumothorax. No significant change in comparison to 03/12/21. Patients venous duplex studies done 03/04/21 reported Occlusive thrombus in the right posterior tibial vein. The remainder of the veins are patent. Chest xray 03/21/21 reported Minimal improvement in the left lower lung infiltrate and small left pleural effusion Patient is currently on albuterol, Mucinex, Enoxaparin in therapeutic dose and Pepcid. - Patient Problems (1) Acute and chronic respiratory failure ([id number]) Current Visit: Yes Status: Acute Plan to address problem: Vapotherm, FIO2 60% Albuterol inhaler 2 puffs po q 4 hours prn for shortness of breath. S/C Lovenox Famotidine (2) Acute deep vein thrombosis (DVT) of right lower extremity Current Visit: Yes Status: Acute Plan to address problem: Continue S/C Lovenox in therapeutic dose. (3) ALPHONSO (acute kidney injury) Current Visit: Yes Status: Acute Plan to address problem: Management as per primary team and nephrology. (4) CHF (congestive heart failure) Current Visit: Yes Status: Acute Plan to address problem: Management as per primary team and cardiology (5) COVID-19 Current Visit: Yes Status: Acute Plan to address problem: Patient Positive for Sanchez virus PCR. Management as per infectious diseases. (6) COPD (chronic obstructive pulmonary disease) Current Visit: Yes Status: Chronic Plan to address problem: Vapotherm, FIO2 60% Albuterol inhaler 2 puffs po q 4 hours prn for shortness of breath. S/C Lovenox Famotidine PFTs as out when his condition improves. (7) DM2 (diabetes mellitus, type 2) Current Visit: Yes Status: Chronic Qualifiers: Diabetes mellitus macular edema: with macular edema Plan to address problem: Management as per primary team. (8) KAM (obstructive sleep apnea) Current Visit: Yes Status: Chronic Plan to address problem: BIPAP stand by in the room BIPAP during night time. Recommend sleep study as out patient. (9) Tobacco abuse Current Visit: Yes Status: Chronic Plan to address problem: counseled on smoking cessation. Subjective Date of service: 03/24/21 Principal diagnosis: Ac hypoxemic resp failure; NSTEMI; ALPHONSO; Sepsis; PNA; CHF; DM II; AMS Interval history: 51-year-old -[place] male with known history of COPD, CHF, diabetes mellitus, DVT and hypertension was brought into the emergency room by EMS for altered mental status and hypoxia. According to EMS patient was discharged from [facility] after treatment for CHF exacerbation. Patient was found to be altered upon waking up and on arrival of EMS oxygen saturation was about 88% on room air, blood pressure was said to be about 88/50 mmHg.Was subsequently placed on 5 L of oxygen by nasal cannula with improvement in his oxygen saturation. According to who was by the bedside patient was having some mild cough which was nonproductive. He has had no fever or chills. There has been no nausea or vomiting or abdominal pain. Patient has been fully vaccinated against COVID-19. Work-up in the emergency room, labs reveals leukocytosis of 12.7, hemoglobin of 9.1 and hematocrit of 27.7, sodium of 132, lactic acid of 2.90. Liver enzymes were abnormally elevated, troponin was also bumped at 0.493. CT of the chest shows findings concerning for atelectasis and or infiltrate, CT of the head was unremarkable. Patient was in severe respiratory distress upon arrival in the emergency room and subsequently intubated. Patient currently being admitted for mainly severe sepsis, respiratory failure, pneumonia and ALPHONSO. Patient is awake., on vapotherm, FIO2 60% and O2 sat 94%. BIPAP stand by in the room. He is in no acute respiratory distress. Patient is running low grade temp. Has no leukocytosis. Hemoglobin 7.9. Hematocrit 24.9. Troponin: 0.185. Patient's Sanchez virus PCR is Positive. Cxray on 03/14/21 reported: reported Bibasilar pleural-parenchymal densities . No pneumothorax. No significant change in comparison to 03/12/21. Patients venous duplex studies done 03/04/21 reported Occlusive thrombus in the right posterior tibial vein. The remainder of the veins are patent. Chest xray 03/21/21 reported Minimal improvement in the left lower lung infiltrate and small left pleural effusion Patient is currently on albuterol, Mucinex, Enoxaparin in therapeutic dose and Pepcid. Objective Vital Signs - 12hr 03/24/21 03/24/21 03/24/21 06:42 06:44 10:00 Pulse Rate 116 H Blood Pressure 114/57 114/57 O2 Sat by Pulse 92 Oximetry 03/24/21 03/24/21 03/24/21 10:10 12:59 13:00 Pulse Rate 118 H 116 H Blood Pressure O2 Sat by Pulse 92 86 82 L Oximetry 03/24/21 15:35 Pulse Rate Blood Pressure O2 Sat by Pulse 92 Oximetry Constitutional: no acute distress, alert, other (middle aged obese male with mildly increased respiratory effort at rest) Eyes: non-icteric ENT: oropharynx moist, other Neck: supple, no lymphadenopathy, no JVD, other (large neck circumference) Effort: mildly labored Ascultation: Bilateral: diminished breath sounds, rhonchi (posterior bases) Percussion: Bilateral: not dull Cardiovascular: regular rate and rhythm, other (S1,S2) Gastrointestinal: normoactive bowel sounds, soft, non-tender, non-distended (protuberant) Integumentary: normal Extremities: no cyanosis, pulses normal, no ischemia or petechiae, edema (trace) Neurologic: non-focal exam (grossly), pupils equal and round, CN II-XII normal Psychiatric: other (Encephalopathic.) CBC and BMP: 03/18/21 07:53 03/23/21 08:35 ABG, PT/INR, D-dimer: ABG ABG pH 7.487 (7.320-7.450) H 03/10/21 12:33 POC ABG pCO2 40.4 mmHg (32.0-48.0) 03/10/21 12:33 POC ABG pO2 62.1 mmHg (83-108) L 03/10/21 12:33 POC ABG HCO3 29.9 03/10/21 12:33 ABG O2 Saturation 90.2 (0-100) 03/10/21 12:33 PT/INR, D-dimer PT 15.6 Sec. (12.2-14.9) H 03/04/21 10:17 INR 1.18 (0.87-1.13) H 03/04/21 10:17 D-Dimer 475.91 ng/mlDDU (0-234) H 03/14/21 03:40 Abnormal lab findings: Abnormal Labs 03/01/21 03/01/21 03/01/21 19:15 19:21 19:21 WBC 12.7 H RBC 2.77 L Hgb 9.1 L Hct 27.7 L MCV 100 H MCH 33 H RDW 18.0 H Seg Neutrophils % Monocytes % (Manual) 17.0 H Seg Neutrophils # Monocytes # (Manual) 2.2 H PT INR D-Dimer Heparin Anti-Xa Level ABG pH POC ABG pCO2 POC ABG pO2 64.9 L ABG Hemoglobin 9.3 L ABG Oxyhemoglobin 93.0 L ABG Sodium 133.8 L ABG Potassium ABG Chloride 97.0 L ABG Glucose 191 H Carboxyhemoglobin Sodium Potassium Chloride Carbon Dioxide BUN Creatinine Glucose POC Glucose Lactic Acid Calcium Phosphorus Magnesium Ferritin Total Bilirubin Direct Bilirubin AST ALT Alkaline Phosphatase Ammonia Lactate Dehydrogenase Troponin T 0.493 H* C-Reactive Protein Total Protein Albumin Triglycerides 400 H Cholesterol 232 H HDL Cholesterol 22 L Lipase Arterial Blood Glucose 191 H Arterial Blood Ionized Calcium 4.4 L Urine WBC (Auto) Salicylates Acetaminophen Coronavirus (PCR) 03/01/21 03/01/21 03/01/21 19:21 19:21 19:21 WBC RBC Hgb Hct MCV MCH RDW Seg Neutrophils % Monocytes % (Manual) Seg Neutrophils # Monocytes # (Manual) PT 16.6 H INR 1.28 H D-Dimer Heparin Anti-Xa Level ABG pH POC ABG pCO2 POC ABG pO2 ABG Hemoglobin ABG Oxyhemoglobin ABG Sodium ABG Potassium ABG Chloride ABG Glucose Carboxyhemoglobin Sodium 132 L Potassium Chloride 92.2 L Carbon Dioxide BUN 43 H Creatinine 2.4 H Glucose 190 H POC Glucose Lactic Acid 2.90 H* Calcium Phosphorus Magnesium Ferritin Total Bilirubin 1.60 H Direct Bilirubin 1.2 H AST 275 H ALT 156 H Alkaline Phosphatase 282 H Ammonia Lactate Dehydrogenase Troponin T C-Reactive Protein Total Protein 5.8 L Albumin 2.6 L Triglycerides Cholesterol HDL Cholesterol Lipase 120 H Arterial Blood Glucose Arterial Blood Ionized Calcium Urine WBC (Auto) Salicylates Acetaminophen Coronavirus (PCR) 03/01/21 03/01/21 03/01/21 19:21 19:21 19:21 WBC RBC Hgb Hct MCV MCH RDW Seg Neutrophils % Monocytes % (Manual) Seg Neutrophils # Monocytes # (Manual) PT INR D-Dimer Heparin Anti-Xa Level ABG pH POC ABG pCO2 POC ABG pO2 ABG Hemoglobin ABG Oxyhemoglobin ABG Sodium ABG Potassium ABG Chloride ABG Glucose Carboxyhemoglobin Sodium Potassium Chloride Carbon Dioxide BUN Creatinine Glucose POC Glucose Lactic Acid Calcium Phosphorus Magnesium Ferritin Total Bilirubin Direct Bilirubin AST ALT Alkaline Phosphatase Ammonia 71.0 H Lactate Dehydrogenase Troponin T C-Reactive Protein Total Protein Albumin Triglycerides Cholesterol HDL Cholesterol Lipase Arterial Blood Glucose Arterial Blood Ionized Calcium Urine WBC (Auto) Salicylates < 0.3 L Acetaminophen 5.0 L Coronavirus (PCR) 03/01/21 03/01/21 03/02/21 20:55 20:55 00:01 WBC RBC Hgb Hct MCV MCH RDW Seg Neutrophils % Monocytes % (Manual) Seg Neutrophils # Monocytes # (Manual) PT INR D-Dimer Heparin Anti-Xa Level ABG pH 7.234 L POC ABG pCO2 POC ABG pO2 240.5 H ABG Hemoglobin 9.3 L ABG Oxyhemoglobin 99.1 H ABG Sodium 135.3 L ABG Potassium ABG Chloride ABG Glucose 286 H Carboxyhemoglobin 0.3 L Sodium Potassium Chloride Carbon Dioxide BUN Creatinine Glucose POC Glucose Lactic Acid 4.30 H* Calcium Phosphorus Magnesium Ferritin Total Bilirubin Direct Bilirubin AST ALT Alkaline Phosphatase Ammonia Lactate Dehydrogenase Troponin T 0.484 H* C-Reactive Protein Total Protein Albumin Triglycerides Cholesterol HDL Cholesterol Lipase Arterial Blood Glucose 286 H Arterial Blood Ionized Calcium Urine WBC (Auto) Salicylates Acetaminophen Coronavirus (PCR) 03/02/21 03/02/21 03/02/21 03:42 05:23 06:35 WBC RBC Hgb Hct MCV MCH RDW Seg Neutrophils % Monocytes % (Manual) Seg Neutrophils # Monocytes # (Manual) PT INR D-Dimer Heparin Anti-Xa Level ABG pH 7.225 L POC ABG pCO2 POC ABG pO2 181.8 H ABG Hemoglobin 9.4 L ABG Oxyhemoglobin 98.6 H ABG Sodium 132.1 L ABG Potassium 5.0 H ABG Chloride ABG Glucose 454 H Carboxyhemoglobin 0.3 L Sodium Potassium Chloride Carbon Dioxide BUN Creatinine Glucose POC Glucose 410 H Lactic Acid 7.50 H* Calcium Phosphorus Magnesium Ferritin Total Bilirubin Direct Bilirubin AST ALT Alkaline Phosphatase Ammonia Lactate Dehydrogenase Troponin T C-Reactive Protein Total Protein Albumin Triglycerides Cholesterol HDL Cholesterol Lipase Arterial Blood Glucose 454 H Arterial Blood Ionized Calcium 4.2 L Urine WBC (Auto) Salicylates Acetaminophen Coronavirus (PCR) 03/02/21 03/02/21 03/02/21 10:48 10:48 10:48 WBC RBC Hgb Hct MCV MCH RDW Seg Neutrophils % Monocytes % (Manual) Seg Neutrophils # Monocytes # (Manual) PT INR D-Dimer Heparin Anti-Xa Level ABG pH POC ABG pCO2 POC ABG pO2 ABG Hemoglobin ABG Oxyhemoglobin ABG Sodium ABG Potassium ABG Chloride ABG Glucose Carboxyhemoglobin Sodium 132 L Potassium Chloride 93.3 L Carbon Dioxide 20 L BUN 46 H Creatinine 1.9 H Glucose 503 H* POC Glucose Lactic Acid 3.40 H* Calcium 7.9 L Phosphorus 5.80 H Magnesium Ferritin Total Bilirubin Direct Bilirubin AST ALT Alkaline Phosphatase Ammonia Lactate Dehydrogenase Troponin T C-Reactive Protein Total Protein Albumin Triglycerides Cholesterol HDL Cholesterol Lipase Arterial Blood Glucose Arterial Blood Ionized Calcium Urine WBC (Auto) Salicylates Acetaminophen Coronavirus (PCR) 03/02/21 03/02/21 03/02/21 11:23 11:38 15:33 WBC RBC Hgb Hct MCV MCH RDW Seg Neutrophils % Monocytes % (Manual) Seg Neutrophils # Monocytes # (Manual) PT INR D-Dimer Heparin Anti-Xa Level ABG pH 7.318 L POC ABG pCO2 POC ABG pO2 ABG Hemoglobin 9.2 L ABG Oxyhemoglobin ABG Sodium 133.2 L ABG Potassium ABG Chloride ABG Glucose 504 H Carboxyhemoglobin 0.3 L Sodium Potassium Chloride Carbon Dioxide BUN Creatinine Glucose POC Glucose 468 H 445 H Lactic Acid Calcium Phosphorus Magnesium Ferritin Total Bilirubin Direct Bilirubin AST ALT Alkaline Phosphatase Ammonia Lactate Dehydrogenase Troponin T C-Reactive Protein Total Protein Albumin Triglycerides Cholesterol HDL Cholesterol Lipase Arterial Blood Glucose 504 H Arterial Blood Ionized Calcium 4.2 L Urine WBC (Auto) Salicylates Acetaminophen Coronavirus (PCR) 03/02/21 03/02/21 03/02/21 16:28 16:28 16:28 WBC RBC Hgb 8.8 L Hct 26.0 L MCV MCH RDW Seg Neutrophils % Monocytes % (Manual) Seg Neutrophils # Monocytes # (Manual) PT 15.2 H INR 1.14 H D-Dimer Heparin Anti-Xa Level ABG pH POC ABG pCO2 POC ABG pO2 ABG Hemoglobin ABG Oxyhemoglobin ABG Sodium ABG Potassium ABG Chloride ABG Glucose Carboxyhemoglobin Sodium 135 L Potassium Chloride 93.8 L Carbon Dioxide BUN 48 H Creatinine 1.8 H Glucose 454 H POC Glucose Lactic Acid Calcium 7.6 L Phosphorus Magnesium Ferritin Total Bilirubin Direct Bilirubin AST ALT Alkaline Phosphatase Ammonia Lactate Dehydrogenase Troponin T C-Reactive Protein Total Protein Albumin Triglycerides Cholesterol HDL Cholesterol Lipase Arterial Blood Glucose Arterial Blood Ionized Calcium Urine WBC (Auto) Salicylates Acetaminophen Coronavirus (PCR) 03/02/21 03/02/21 03/02/21 17:39 18:52 20:09 WBC RBC Hgb Hct MCV MCH RDW Seg Neutrophils % Monocytes % (Manual) Seg Neutrophils # Monocytes # (Manual) PT INR D-Dimer Heparin Anti-Xa Level ABG pH POC ABG pCO2 POC ABG pO2 ABG Hemoglobin ABG Oxyhemoglobin ABG Sodium ABG Potassium ABG Chloride ABG Glucose Carboxyhemoglobin Sodium Potassium Chloride Carbon Dioxide BUN Creatinine Glucose POC Glucose 404 H 357 H 347 H Lactic Acid Calcium Phosphorus Magnesium Ferritin Total Bilirubin Direct Bilirubin AST ALT Alkaline Phosphatase Ammonia Lactate Dehydrogenase Troponin T C-Reactive Protein Total Protein Albumin Triglycerides Cholesterol HDL Cholesterol Lipase Arterial Blood Glucose Arterial Blood Ionized Calcium Urine WBC (Auto) Salicylates Acetaminophen Coronavirus (PCR) 03/02/21 03/02/21 03/02/21 21:03 22:00 22:55 WBC RBC Hgb Hct MCV MCH RDW Seg Neutrophils % Monocytes % (Manual) Seg Neutrophils # Monocytes # (Manual) PT INR D-Dimer Heparin Anti-Xa Level ABG pH POC ABG pCO2 POC ABG pO2 ABG Hemoglobin ABG Oxyhemoglobin ABG Sodium ABG Potassium ABG Chloride ABG Glucose Carboxyhemoglobin Sodium Potassium Chloride Carbon Dioxide BUN Creatinine Glucose POC Glucose 307 H 270 H 237 H Lactic Acid Calcium Phosphorus Magnesium Ferritin Total Bilirubin Direct Bilirubin AST ALT Alkaline Phosphatase Ammonia Lactate Dehydrogenase Troponin T C-Reactive Protein Total Protein Albumin Triglycerides Cholesterol HDL Cholesterol Lipase Arterial Blood Glucose Arterial Blood Ionized Calcium Urine WBC (Auto) Salicylates Acetaminophen Coronavirus (PCR) 03/03/21 03/03/21 03/03/21 00:02 00:57 02:01 WBC RBC Hgb Hct MCV MCH RDW Seg Neutrophils % Monocytes % (Manual) Seg Neutrophils # Monocytes # (Manual) PT INR D-Dimer Heparin Anti-Xa Level ABG pH POC ABG pCO2 POC ABG pO2 ABG Hemoglobin ABG Oxyhemoglobin ABG Sodium ABG Potassium ABG Chloride ABG Glucose Carboxyhemoglobin Sodium Potassium Chloride Carbon Dioxide BUN Creatinine Glucose POC Glucose 252 H 214 H 261 H Lactic Acid Calcium Phosphorus Magnesium Ferritin Total Bilirubin Direct Bilirubin AST ALT Alkaline Phosphatase Ammonia Lactate Dehydrogenase Troponin T C-Reactive Protein Total Protein Albumin Triglycerides Cholesterol HDL Cholesterol Lipase Arterial Blood Glucose Arterial Blood Ionized Calcium Urine WBC (Auto) Salicylates Acetaminophen Coronavirus (PCR) 03/03/21 03/03/21 03/03/21 03:07 03:10 03:50 WBC 13.7 H RBC 2.69 L Hgb 8.7 L Hct 26.9 L MCV 100 H MCH RDW 18.5 H Seg Neutrophils % 79.0 H Monocytes % (Manual) Seg Neutrophils # 10.8 H Monocytes # (Manual) PT INR D-Dimer Heparin Anti-Xa Level ABG pH POC ABG pCO2 50.9 H POC ABG pO2 81.9 L ABG Hemoglobin 8.7 L ABG Oxyhemoglobin ABG Sodium 134.2 L ABG Potassium ABG Chloride 96.0 L ABG Glucose 279 H Carboxyhemoglobin 0.4 L Sodium Potassium Chloride Carbon Dioxide BUN Creatinine Glucose POC Glucose 276 H Lactic Acid Calcium Phosphorus Magnesium Ferritin Total Bilirubin Direct Bilirubin AST ALT Alkaline Phosphatase Ammonia Lactate Dehydrogenase Troponin T C-Reactive Protein Total Protein Albumin Triglycerides Cholesterol HDL Cholesterol Lipase Arterial Blood Glucose 279 H Arterial Blood Ionized Calcium 3.9 L Urine WBC (Auto) Salicylates Acetaminophen Coronavirus (PCR) 03/03/21 03/03/21 03/03/21 03:50 04:06 04:32 WBC RBC Hgb Hct MCV MCH RDW Seg Neutrophils % Monocytes % (Manual) Seg Neutrophils # Monocytes # (Manual) PT INR D-Dimer Heparin Anti-Xa Level ABG pH POC ABG pCO2 POC ABG pO2 ABG Hemoglobin ABG Oxyhemoglobin ABG Sodium ABG Potassium ABG Chloride ABG Glucose Carboxyhemoglobin Sodium Potassium Chloride 94.2 L Carbon Dioxide BUN 45 H Creatinine 1.9 H Glucose 261 H POC Glucose 256 H Lactic Acid Calcium 7.3 L Phosphorus Magnesium Ferritin Total Bilirubin Direct Bilirubin 0.9 H AST 208 H ALT 148 H Alkaline Phosphatase 251 H Ammonia Lactate Dehydrogenase Troponin T C-Reactive Protein Total Protein 5.5 L Albumin 2.4 L Triglycerides Cholesterol HDL Cholesterol Lipase Arterial Blood Glucose Arterial Blood Ionized Calcium Urine WBC (Auto) Salicylates Acetaminophen Coronavirus (PCR) 03/03/21 03/03/21 03/03/21 05:23 06:06 07:07 WBC RBC Hgb Hct MCV MCH RDW Seg Neutrophils % Monocytes % (Manual) Seg Neutrophils # Monocytes # (Manual) PT INR D-Dimer Heparin Anti-Xa Level ABG pH POC ABG pCO2 POC ABG pO2 ABG Hemoglobin ABG Oxyhemoglobin ABG Sodium ABG Potassium ABG Chloride ABG Glucose Carboxyhemoglobin Sodium Potassium Chloride Carbon Dioxide BUN Creatinine Glucose POC Glucose 214 H 249 H 237 H Lactic Acid Calcium Phosphorus Magnesium Ferritin Total Bilirubin Direct Bilirubin AST ALT Alkaline Phosphatase Ammonia Lactate Dehydrogenase Troponin T C-Reactive Protein Total Protein Albumin Triglycerides Cholesterol HDL Cholesterol Lipase Arterial Blood Glucose Arterial Blood Ionized Calcium Urine WBC (Auto) Salicylates Acetaminophen Coronavirus (PCR) 03/03/21 03/03/21 03/03/21 07:58 08:58 09:52 WBC RBC Hgb Hct MCV MCH RDW Seg Neutrophils % Monocytes % (Manual) Seg Neutrophils # Monocytes # (Manual) PT INR D-Dimer Heparin Anti-Xa Level ABG pH POC ABG pCO2 POC ABG pO2 ABG Hemoglobin ABG Oxyhemoglobin ABG Sodium ABG Potassium ABG Chloride ABG Glucose Carboxyhemoglobin Sodium Potassium Chloride Carbon Dioxide BUN Creatinine Glucose POC Glucose 227 H 215 H 207 H Lactic Acid Calcium Phosphorus Magnesium Ferritin Total Bilirubin Direct Bilirubin AST ALT Alkaline Phosphatase Ammonia Lactate Dehydrogenase Troponin T C-Reactive Protein Total Protein Albumin Triglycerides Cholesterol HDL Cholesterol Lipase Arterial Blood Glucose Arterial Blood Ionized Calcium Urine WBC (Auto) Salicylates Acetaminophen Coronavirus (PCR) 03/03/21 03/03/21 03/03/21 10:55 11:44 12:53 WBC RBC Hgb Hct MCV MCH RDW Seg Neutrophils % Monocytes % (Manual) Seg Neutrophils # Monocytes # (Manual) PT INR D-Dimer Heparin Anti-Xa Level ABG pH POC ABG pCO2 POC ABG pO2 ABG Hemoglobin ABG Oxyhemoglobin ABG Sodium ABG Potassium ABG Chloride ABG Glucose Carboxyhemoglobin Sodium Potassium Chloride Carbon Dioxide BUN Creatinine Glucose POC Glucose 198 H 210 H 203 H Lactic Acid Calcium Phosphorus Magnesium Ferritin Total Bilirubin Direct Bilirubin AST ALT Alkaline Phosphatase Ammonia Lactate Dehydrogenase Troponin T C-Reactive Protein Total Protein Albumin Triglycerides Cholesterol HDL Cholesterol Lipase Arterial Blood Glucose Arterial Blood Ionized Calcium Urine WBC (Auto) Salicylates Acetaminophen Coronavirus (PCR) 03/03/21 03/03/21 03/03/21 13:53 14:58 15:23 WBC RBC Hgb Hct MCV MCH RDW Seg Neutrophils % Monocytes % (Manual) Seg Neutrophils # Monocytes # (Manual) PT INR D-Dimer Heparin Anti-Xa Level ABG pH POC ABG pCO2 POC ABG pO2 ABG Hemoglobin ABG Oxyhemoglobin ABG Sodium ABG Potassium ABG Chloride ABG Glucose Carboxyhemoglobin Sodium Potassium Chloride Carbon Dioxide BUN Creatinine Glucose POC Glucose 210 H 187 H Lactic Acid 3.10 H* Calcium Phosphorus Magnesium Ferritin Total Bilirubin Direct Bilirubin AST ALT Alkaline Phosphatase Ammonia Lactate Dehydrogenase Troponin T C-Reactive Protein Total Protein Albumin Triglycerides Cholesterol HDL Cholesterol Lipase Arterial Blood Glucose Arterial Blood Ionized Calcium Urine WBC (Auto) Salicylates Acetaminophen Coronavirus (PCR) 03/03/21 03/03/21 03/03/21 15:51 16:25 16:53 WBC RBC Hgb Hct MCV MCH RDW Seg Neutrophils % Monocytes % (Manual) Seg Neutrophils # Monocytes # (Manual) PT INR D-Dimer Heparin Anti-Xa Level ABG pH POC ABG pCO2 POC ABG pO2 ABG Hemoglobin ABG Oxyhemoglobin ABG Sodium ABG Potassium ABG Chloride ABG Glucose Carboxyhemoglobin Sodium Potassium Chloride 91.0 L Carbon Dioxide 34 H BUN 47 H Creatinine 1.7 H Glucose 190 H POC Glucose 182 H 179 H Lactic Acid Calcium 7.6 L Phosphorus Magnesium Ferritin Total Bilirubin Direct Bilirubin AST ALT Alkaline Phosphatase Ammonia Lactate Dehydrogenase Troponin T C-Reactive Protein Total Protein Albumin Triglycerides Cholesterol HDL Cholesterol Lipase Arterial Blood Glucose Arterial Blood Ionized Calcium Urine WBC (Auto) Salicylates Acetaminophen Coronavirus (PCR) 03/03/21 03/03/21 03/03/21 17:55 19:37 20:57 WBC RBC Hgb Hct MCV MCH RDW Seg Neutrophils % Monocytes % (Manual) Seg Neutrophils # Monocytes # (Manual) PT INR D-Dimer Heparin Anti-Xa Level ABG pH POC ABG pCO2 POC ABG pO2 ABG Hemoglobin ABG Oxyhemoglobin ABG Sodium ABG Potassium ABG Chloride ABG Glucose Carboxyhemoglobin Sodium Potassium Chloride Carbon Dioxide BUN Creatinine Glucose POC Glucose 185 H 174 H 175 H Lactic Acid Calcium Phosphorus Magnesium Ferritin Total Bilirubin Direct Bilirubin AST ALT Alkaline Phosphatase Ammonia Lactate Dehydrogenase Troponin T C-Reactive Protein Total Protein Albumin Triglycerides Cholesterol HDL Cholesterol Lipase Arterial Blood Glucose Arterial Blood Ionized Calcium Urine WBC (Auto) Salicylates Acetaminophen Coronavirus (PCR) 03/03/21 03/03/21 03/03/21 22:02 22:56 23:10 WBC RBC Hgb Hct MCV MCH RDW Seg Neutrophils % Monocytes % (Manual) Seg Neutrophils # Monocytes # (Manual) PT INR D-Dimer Heparin Anti-Xa Level 0.75 H ABG pH POC ABG pCO2 POC ABG pO2 ABG Hemoglobin ABG Oxyhemoglobin ABG Sodium ABG Potassium ABG Chloride ABG Glucose Carboxyhemoglobin Sodium Potassium Chloride Carbon Dioxide BUN Creatinine Glucose POC Glucose 170 H 160 H Lactic Acid Calcium Phosphorus Magnesium Ferritin Total Bilirubin Direct Bilirubin AST ALT Alkaline Phosphatase Ammonia Lactate Dehydrogenase Troponin T C-Reactive Protein Total Protein Albumin Triglycerides Cholesterol HDL Cholesterol Lipase Arterial Blood Glucose Arterial Blood Ionized Calcium Urine WBC (Auto) Salicylates Acetaminophen Coronavirus (PCR) 03/03/21 03/04/21 03/04/21 23:42 00:52 01:55 WBC RBC Hgb Hct MCV MCH RDW Seg Neutrophils % Monocytes % (Manual) Seg Neutrophils # Monocytes # (Manual) PT INR D-Dimer Heparin Anti-Xa Level ABG pH POC ABG pCO2 POC ABG pO2 ABG Hemoglobin ABG Oxyhemoglobin ABG Sodium ABG Potassium ABG Chloride ABG Glucose Carboxyhemoglobin Sodium Potassium Chloride Carbon Dioxide BUN Creatinine Glucose POC Glucose 161 H 167 H 119 H Lactic Acid Calcium Phosphorus Magnesium Ferritin Total Bilirubin Direct Bilirubin AST ALT Alkaline Phosphatase Ammonia Lactate Dehydrogenase Troponin T C-Reactive Protein Total Protein Albumin Triglycerides Cholesterol HDL Cholesterol Lipase Arterial Blood Glucose Arterial Blood Ionized Calcium Urine WBC (Auto) Salicylates Acetaminophen Coronavirus (PCR) 03/04/21 03/04/21 03/04/21 02:58 03:47 04:03 WBC RBC Hgb Hct MCV MCH RDW Seg Neutrophils % Monocytes % (Manual) Seg Neutrophils # Monocytes # (Manual) PT INR D-Dimer Heparin Anti-Xa Level ABG pH POC ABG pCO2 57.3 H POC ABG pO2 63.7 L ABG Hemoglobin 8.4 L ABG Oxyhemoglobin 88.6 L ABG Sodium 132.5 L ABG Potassium 3.2 L ABG Chloride 94.0 L ABG Glucose 129 H Carboxyhemoglobin Sodium Potassium Chloride Carbon Dioxide BUN Creatinine Glucose POC Glucose 111 H 122 H Lactic Acid Calcium Phosphorus Magnesium Ferritin Total Bilirubin Direct Bilirubin AST ALT Alkaline Phosphatase Ammonia Lactate Dehydrogenase Troponin T C-Reactive Protein Total Protein Albumin Triglycerides Cholesterol HDL Cholesterol Lipase Arterial Blood Glucose 129 H Arterial Blood Ionized Calcium 3.8 L Urine WBC (Auto) Salicylates Acetaminophen Coronavirus (PCR) 03/04/21 03/04/21 03/04/21 05:15 05:26 05:26 WBC RBC Hgb 7.9 L Hct 23.7 L MCV MCH RDW Seg Neutrophils % Monocytes % (Manual) Seg Neutrophils # Monocytes # (Manual) PT INR D-Dimer Heparin Anti-Xa Level ABG pH POC ABG pCO2 POC ABG pO2 ABG Hemoglobin ABG Oxyhemoglobin ABG Sodium ABG Potassium ABG Chloride ABG Glucose Carboxyhemoglobin Sodium Potassium Chloride Carbon Dioxide BUN Creatinine Glucose POC Glucose 127 H Lactic Acid Calcium Phosphorus Magnesium Ferritin Total Bilirubin Direct Bilirubin 0.6 H AST 123 H ALT 105 H Alkaline Phosphatase 232 H Ammonia Lactate Dehydrogenase Troponin T C-Reactive Protein Total Protein 4.8 L Albumin 2.2 L Triglycerides Cholesterol HDL Cholesterol Lipase Arterial Blood Glucose Arterial Blood Ionized Calcium Urine WBC (Auto) Salicylates Acetaminophen Coronavirus (PCR) 03/04/21 03/04/21 03/04/21 05:26 06:01 06:53 WBC RBC Hgb Hct MCV MCH RDW Seg Neutrophils % Monocytes % (Manual) Seg Neutrophils # Monocytes # (Manual) PT INR D-Dimer Heparin Anti-Xa Level 0.71 H ABG pH POC ABG pCO2 POC ABG pO2 ABG Hemoglobin ABG Oxyhemoglobin ABG Sodium ABG Potassium ABG Chloride ABG Glucose Carboxyhemoglobin Sodium Potassium Chloride Carbon Dioxide BUN Creatinine Glucose POC Glucose 120 H 117 H Lactic Acid Calcium Phosphorus Magnesium Ferritin Total Bilirubin Direct Bilirubin AST ALT Alkaline Phosphatase Ammonia Lactate Dehydrogenase Troponin T C-Reactive Protein Total Protein Albumin Triglycerides Cholesterol HDL Cholesterol Lipase Arterial Blood Glucose Arterial Blood Ionized Calcium Urine WBC (Auto) Salicylates Acetaminophen Coronavirus (PCR) 03/04/21 03/04/21 03/04/21 07:57 10:17 10:17 WBC RBC 2.51 L Hgb 8.3 L Hct 25.3 L MCV 101 H MCH 33 H RDW 18.5 H Seg Neutrophils % Monocytes % (Manual) Seg Neutrophils # Monocytes # (Manual) PT INR D-Dimer Heparin Anti-Xa Level ABG pH POC ABG pCO2 POC ABG pO2 ABG Hemoglobin ABG Oxyhemoglobin ABG Sodium ABG Potassium ABG Chloride ABG Glucose Carboxyhemoglobin Sodium 136 L Potassium Chloride 93.1 L Carbon Dioxide 33 H BUN 46 H Creatinine 1.4 H Glucose 151 H POC Glucose 129 H Lactic Acid Calcium 7.5 L Phosphorus Magnesium Ferritin Total Bilirubin Direct Bilirubin AST 126 H ALT 100 H Alkaline Phosphatase 226 H Ammonia Lactate Dehydrogenase Troponin T C-Reactive Protein Total Protein 5.0 L Albumin 2.2 L Triglycerides Cholesterol HDL Cholesterol Lipase Arterial Blood Glucose Arterial Blood Ionized Calcium Urine WBC (Auto) Salicylates Acetaminophen Coronavirus (PCR) 03/04/21 03/04/21 03/04/21 10:17 10:17 11:26 WBC RBC Hgb Hct MCV MCH RDW Seg Neutrophils % Monocytes % (Manual) Seg Neutrophils # Monocytes # (Manual) PT 15.6 H INR 1.18 H D-Dimer Heparin Anti-Xa Level ABG pH POC ABG pCO2 POC ABG pO2 ABG Hemoglobin ABG Oxyhemoglobin ABG Sodium ABG Potassium ABG Chloride ABG Glucose Carboxyhemoglobin Sodium Potassium Chloride Carbon Dioxide BUN Creatinine Glucose POC Glucose 167 H Lactic Acid Calcium Phosphorus Magnesium Ferritin Total Bilirubin Direct Bilirubin AST ALT Alkaline Phosphatase Ammonia Lactate Dehydrogenase Troponin T C-Reactive Protein Total Protein Albumin Triglycerides Cholesterol HDL Cholesterol Lipase 78 H Arterial Blood Glucose Arterial Blood Ionized Calcium Urine WBC (Auto) Salicylates Acetaminophen Coronavirus (PCR) 03/04/21 03/04/21 03/04/21 13:04 16:26 17:58 WBC RBC Hgb 7.7 L Hct 23.2 L MCV MCH RDW Seg Neutrophils % Monocytes % (Manual) Seg Neutrophils # Monocytes # (Manual) PT INR D-Dimer Heparin Anti-Xa Level < 0.10 L ABG pH POC ABG pCO2 POC ABG pO2 ABG Hemoglobin ABG Oxyhemoglobin ABG Sodium ABG Potassium ABG Chloride ABG Glucose Carboxyhemoglobin Sodium Potassium Chloride Carbon Dioxide BUN Creatinine Glucose POC Glucose 167 H Lactic Acid Calcium Phosphorus Magnesium Ferritin Total Bilirubin Direct Bilirubin AST ALT Alkaline Phosphatase Ammonia Lactate Dehydrogenase Troponin T C-Reactive Protein Total Protein Albumin Triglycerides Cholesterol HDL Cholesterol Lipase Arterial Blood Glucose Arterial Blood Ionized Calcium Urine WBC (Auto) Salicylates Acetaminophen Coronavirus (PCR) 03/04/21 03/05/21 03/05/21 23:47 04:00 05:06 WBC RBC Hgb Hct MCV MCH RDW Seg Neutrophils % Monocytes % (Manual) Seg Neutrophils # Monocytes # (Manual) PT INR D-Dimer Heparin Anti-Xa Level ABG pH POC ABG pCO2 POC ABG pO2 129.1 H ABG Hemoglobin 8.3 L ABG Oxyhemoglobin ABG Sodium 131.4 L ABG Potassium ABG Chloride 95.0 L ABG Glucose 153 H Carboxyhemoglobin Sodium Potassium Chloride Carbon Dioxide BUN Creatinine Glucose POC Glucose 153 H 139 H Lactic Acid Calcium Phosphorus Magnesium Ferritin Total Bilirubin Direct Bilirubin AST ALT Alkaline Phosphatase Ammonia Lactate Dehydrogenase Troponin T C-Reactive Protein Total Protein Albumin Triglycerides Cholesterol HDL Cholesterol Lipase Arterial Blood Glucose 153 H Arterial Blood Ionized Calcium Urine WBC (Auto) Salicylates Acetaminophen Coronavirus (PCR) 03/05/21 03/05/21 03/05/21 11:43 13:35 13:35 WBC RBC 2.38 L Hgb 7.8 L Hct 23.8 L MCV 100 H MCH 33 H RDW 18.2 H Seg Neutrophils % Monocytes % (Manual) Seg Neutrophils # Monocytes # (Manual) PT INR D-Dimer Heparin Anti-Xa Level ABG pH POC ABG pCO2 POC ABG pO2 ABG Hemoglobin ABG Oxyhemoglobin ABG Sodium ABG Potassium ABG Chloride ABG Glucose Carboxyhemoglobin Sodium Potassium Chloride 94.4 L Carbon Dioxide BUN 49 H Creatinine 1.6 H Glucose 165 H POC Glucose 174 H Lactic Acid Calcium 7.5 L Phosphorus Magnesium Ferritin Total Bilirubin Direct Bilirubin AST ALT Alkaline Phosphatase Ammonia Lactate Dehydrogenase Troponin T C-Reactive Protein Total Protein Albumin Triglycerides Cholesterol HDL Cholesterol Lipase Arterial Blood Glucose Arterial Blood Ionized Calcium Urine WBC (Auto) Salicylates Acetaminophen Coronavirus (PCR) 03/05/21 03/05/21 03/05/21 17:57 21:27 Unknown WBC RBC Hgb Hct MCV MCH RDW Seg Neutrophils % Monocytes % (Manual) Seg Neutrophils # Monocytes # (Manual) PT INR D-Dimer Heparin Anti-Xa Level ABG pH POC ABG pCO2 POC ABG pO2 ABG Hemoglobin ABG Oxyhemoglobin ABG Sodium ABG Potassium ABG Chloride ABG Glucose Carboxyhemoglobin Sodium Potassium Chloride Carbon Dioxide BUN Creatinine Glucose POC Glucose 129 H 129 H Lactic Acid Calcium Phosphorus Magnesium Ferritin Total Bilirubin Direct Bilirubin AST ALT Alkaline Phosphatase Ammonia Lactate Dehydrogenase Troponin T C-Reactive Protein Total Protein Albumin Triglycerides Cholesterol HDL Cholesterol Lipase Arterial Blood Glucose Arterial Blood Ionized Calcium Urine WBC (Auto) Salicylates Acetaminophen Coronavirus (PCR) Positive A 03/06/21 03/06/21 03/06/21 03:30 04:30 05:20 WBC 15.2 H RBC 2.48 L Hgb 8.2 L Hct 24.9 L MCV 100 H MCH 33 H RDW 18.6 H Seg Neutrophils % 72.6 H Monocytes % (Manual) Seg Neutrophils # 11.1 H Monocytes # (Manual) PT INR D-Dimer Heparin Anti-Xa Level ABG pH POC ABG pCO2 49.7 H POC ABG pO2 65.1 L ABG Hemoglobin 9.1 L ABG Oxyhemoglobin 90.2 L ABG Sodium 131.2 L ABG Potassium ABG Chloride 96.0 L ABG Glucose 133 H Carboxyhemoglobin Sodium Potassium Chloride Carbon Dioxide BUN Creatinine Glucose POC Glucose Lactic Acid Calcium Phosphorus Magnesium Ferritin Total Bilirubin Direct Bilirubin AST ALT Alkaline Phosphatase Ammonia Lactate Dehydrogenase Troponin T C-Reactive Protein 27.90 H Total Protein Albumin Triglycerides Cholesterol HDL Cholesterol Lipase Arterial Blood Glucose 133 H Arterial Blood Ionized Calcium 4.2 L Urine WBC (Auto) Salicylates Acetaminophen Coronavirus (PCR) 03/06/21 03/06/21 03/06/21 05:20 05:30 11:52 WBC RBC Hgb Hct MCV MCH RDW Seg Neutrophils % Monocytes % (Manual) Seg Neutrophils # Monocytes # (Manual) PT INR D-Dimer Heparin Anti-Xa Level ABG pH POC ABG pCO2 POC ABG pO2 ABG Hemoglobin ABG Oxyhemoglobin ABG Sodium ABG Potassium ABG Chloride ABG Glucose Carboxyhemoglobin Sodium 135 L Potassium Chloride 94.5 L Carbon Dioxide BUN 49 H Creatinine Glucose 121 H POC Glucose 123 H 123 H Lactic Acid Calcium 7.3 L Phosphorus Magnesium 1.50 L Ferritin Total Bilirubin Direct Bilirubin AST 120 H ALT 74 H Alkaline Phosphatase 306 H Ammonia Lactate Dehydrogenase Troponin T C-Reactive Protein Total Protein 4.5 L Albumin 2.0 L Triglycerides Cholesterol HDL Cholesterol Lipase Arterial Blood Glucose Arterial Blood Ionized Calcium Urine WBC (Auto) Salicylates Acetaminophen Coronavirus (PCR) 03/06/21 03/06/21 03/06/21 14:34 17:45 23:36 WBC RBC Hgb Hct MCV MCH RDW Seg Neutrophils % Monocytes % (Manual) Seg Neutrophils # Monocytes # (Manual) PT INR D-Dimer Heparin Anti-Xa Level ABG pH POC ABG pCO2 POC ABG pO2 ABG Hemoglobin ABG Oxyhemoglobin ABG Sodium ABG Potassium ABG Chloride ABG Glucose Carboxyhemoglobin Sodium Potassium Chloride Carbon Dioxide BUN Creatinine Glucose POC Glucose 140 H 209 H Lactic Acid Calcium Phosphorus Magnesium Ferritin Total Bilirubin Direct Bilirubin AST ALT Alkaline Phosphatase Ammonia Lactate Dehydrogenase Troponin T C-Reactive Protein Total Protein Albumin Triglycerides Cholesterol HDL Cholesterol Lipase Arterial Blood Glucose Arterial Blood Ionized Calcium Urine WBC (Auto) 103.0 H Salicylates Acetaminophen Coronavirus (PCR) 03/07/21 03/07/21 03/07/21 03:00 05:32 08:16 WBC RBC Hgb Hct MCV MCH RDW Seg Neutrophils % Monocytes % (Manual) Seg Neutrophils # Monocytes # (Manual) PT INR D-Dimer Heparin Anti-Xa Level ABG pH POC ABG pCO2 POC ABG pO2 ABG Hemoglobin 8.9 L ABG Oxyhemoglobin ABG Sodium 131.4 L ABG Potassium ABG Chloride ABG Glucose 224 H Carboxyhemoglobin Sodium 136 L Potassium Chloride 95.3 L Carbon Dioxide BUN 45 H Creatinine Glucose 210 H POC Glucose 213 H Lactic Acid Calcium 8.0 L Phosphorus Magnesium Ferritin Total Bilirubin 1.30 H Direct Bilirubin AST 144 H ALT 66 H Alkaline Phosphatase 335 H Ammonia Lactate Dehydrogenase Troponin T C-Reactive Protein Total Protein 4.9 L Albumin 2.1 L Triglycerides Cholesterol HDL Cholesterol Lipase Arterial Blood Glucose 224 H Arterial Blood Ionized Calcium 4.3 L Urine WBC (Auto) Salicylates Acetaminophen Coronavirus (PCR) 03/07/21 03/07/21 03/07/21 08:16 08:16 08:16 WBC RBC 2.47 L Hgb 8.2 L Hct 24.6 L MCV 100 H MCH 33 H RDW 18.1 H Seg Neutrophils % Monocytes % (Manual) Seg Neutrophils # Monocytes # (Manual) PT INR D-Dimer 403.72 H Heparin Anti-Xa Level ABG pH POC ABG pCO2 POC ABG pO2 ABG Hemoglobin ABG Oxyhemoglobin ABG Sodium ABG Potassium ABG Chloride ABG Glucose Carboxyhemoglobin Sodium Potassium Chloride Carbon Dioxide BUN Creatinine Glucose POC Glucose Lactic Acid Calcium Phosphorus Magnesium Ferritin Total Bilirubin Direct Bilirubin AST ALT Alkaline Phosphatase Ammonia Lactate Dehydrogenase 453 H Troponin T C-Reactive Protein 32.50 H Total Protein Albumin Triglycerides Cholesterol HDL Cholesterol Lipase Arterial Blood Glucose Arterial Blood Ionized Calcium Urine WBC (Auto) Salicylates Acetaminophen Coronavirus (PCR) 03/07/21 03/07/21 03/07/21 08:16 11:24 17:22 WBC RBC Hgb Hct MCV MCH RDW Seg Neutrophils % Monocytes % (Manual) Seg Neutrophils # Monocytes # (Manual) PT INR D-Dimer Heparin Anti-Xa Level ABG pH POC ABG pCO2 POC ABG pO2 ABG Hemoglobin ABG Oxyhemoglobin ABG Sodium ABG Potassium ABG Chloride ABG Glucose Carboxyhemoglobin Sodium Potassium Chloride Carbon Dioxide BUN Creatinine Glucose POC Glucose 205 H 211 H Lactic Acid Calcium Phosphorus Magnesium Ferritin > 2000.0 H Total Bilirubin Direct Bilirubin AST ALT Alkaline Phosphatase Ammonia Lactate Dehydrogenase Troponin T C-Reactive Protein Total Protein Albumin Triglycerides Cholesterol HDL Cholesterol Lipase Arterial Blood Glucose Arterial Blood Ionized Calcium Urine WBC (Auto) Salicylates Acetaminophen Coronavirus (PCR) 03/07/21 03/08/21 03/08/21 Unknown 00:05 04:00 WBC RBC Hgb Hct MCV MCH RDW Seg Neutrophils % Monocytes % (Manual) Seg Neutrophils # Monocytes # (Manual) PT INR D-Dimer Heparin Anti-Xa Level 0.94 H ABG pH 7.452 H POC ABG pCO2 POC ABG pO2 75.5 L ABG Hemoglobin 10.0 L ABG Oxyhemoglobin 93.5 L ABG Sodium 134.7 L ABG Potassium ABG Chloride ABG Glucose 268 H Carboxyhemoglobin 0.3 L Sodium Potassium Chloride Carbon Dioxide BUN Creatinine Glucose POC Glucose 253 H Lactic Acid Calcium Phosphorus Magnesium Ferritin Total Bilirubin Direct Bilirubin AST ALT Alkaline Phosphatase Ammonia Lactate Dehydrogenase Troponin T C-Reactive Protein Total Protein Albumin Triglycerides Cholesterol HDL Cholesterol Lipase Arterial Blood Glucose 268 H Arterial Blood Ionized Calcium 4.5 L Urine WBC (Auto) Salicylates Acetaminophen Coronavirus (PCR) 03/08/21 03/08/21 03/08/21 05:27 06:10 06:10 WBC RBC 2.62 L Hgb 8.4 L Hct 26.0 L MCV 100 H MCH RDW 18.0 H Seg Neutrophils % Monocytes % (Manual) Seg Neutrophils # Monocytes # (Manual) PT INR D-Dimer Heparin Anti-Xa Level ABG pH POC ABG pCO2 POC ABG pO2 ABG Hemoglobin ABG Oxyhemoglobin ABG Sodium ABG Potassium ABG Chloride ABG Glucose Carboxyhemoglobin Sodium Potassium Chloride Carbon Dioxide BUN 49 H Creatinine Glucose 280 H POC Glucose 273 H Lactic Acid Calcium Phosphorus Magnesium Ferritin Total Bilirubin Direct Bilirubin AST 130 H ALT 68 H Alkaline Phosphatase 440 H Ammonia Lactate Dehydrogenase Troponin T C-Reactive Protein Total Protein 5.3 L Albumin 1.9 L Triglycerides Cholesterol HDL Cholesterol Lipase Arterial Blood Glucose Arterial Blood Ionized Calcium Urine WBC (Auto) Salicylates Acetaminophen Coronavirus (PCR) 03/08/21 03/08/21 03/08/21 11:27 17:56 23:20 WBC RBC Hgb Hct MCV MCH RDW Seg Neutrophils % Monocytes % (Manual) Seg Neutrophils # Monocytes # (Manual) PT INR D-Dimer Heparin Anti-Xa Level ABG pH POC ABG pCO2 POC ABG pO2 ABG Hemoglobin ABG Oxyhemoglobin ABG Sodium ABG Potassium ABG Chloride ABG Glucose Carboxyhemoglobin Sodium Potassium Chloride Carbon Dioxide BUN Creatinine Glucose POC Glucose 258 H 279 H 289 H Lactic Acid Calcium Phosphorus Magnesium Ferritin Total Bilirubin Direct Bilirubin AST ALT Alkaline Phosphatase Ammonia Lactate Dehydrogenase Troponin T C-Reactive Protein Total Protein Albumin Triglycerides Cholesterol HDL Cholesterol Lipase Arterial Blood Glucose Arterial Blood Ionized Calcium Urine WBC (Auto) Salicylates Acetaminophen Coronavirus (PCR) 03/09/21 03/09/21 03/09/21 04:00 05:12 08:00 WBC RBC Hgb Hct MCV MCH RDW Seg Neutrophils % Monocytes % (Manual) Seg Neutrophils # Monocytes # (Manual) PT INR D-Dimer 249.59 H Heparin Anti-Xa Level ABG pH 7.456 H POC ABG pCO2 POC ABG pO2 ABG Hemoglobin 8.9 L ABG Oxyhemoglobin ABG Sodium 135.6 L ABG Potassium ABG Chloride ABG Glucose 298 H Carboxyhemoglobin 0.3 L Sodium Potassium Chloride Carbon Dioxide BUN Creatinine Glucose POC Glucose 267 H Lactic Acid Calcium Phosphorus Magnesium Ferritin Total Bilirubin Direct Bilirubin AST ALT Alkaline Phosphatase Ammonia Lactate Dehydrogenase Troponin T C-Reactive Protein Total Protein Albumin Triglycerides Cholesterol HDL Cholesterol Lipase Arterial Blood Glucose 298 H Arterial Blood Ionized Calcium 4.5 L Urine WBC (Auto) Salicylates Acetaminophen Coronavirus (PCR) 03/09/21 03/09/21 03/09/21 08:00 08:00 08:00 WBC RBC Hgb Hct MCV MCH RDW Seg Neutrophils % Monocytes % (Manual) Seg Neutrophils # Monocytes # (Manual) PT INR D-Dimer Heparin Anti-Xa Level ABG pH POC ABG pCO2 POC ABG pO2 ABG Hemoglobin ABG Oxyhemoglobin ABG Sodium ABG Potassium ABG Chloride ABG Glucose Carboxyhemoglobin Sodium Potassium Chloride Carbon Dioxide BUN 44 H Creatinine Glucose 289 H POC Glucose Lactic Acid Calcium Phosphorus Magnesium Ferritin 2743.0 H Total Bilirubin Direct Bilirubin AST 134 H ALT 62 H Alkaline Phosphatase 527 H Ammonia Lactate Dehydrogenase 459 H Troponin T C-Reactive Protein 10.60 H Total Protein 5.0 L Albumin 2.2 L Triglycerides Cholesterol HDL Cholesterol Lipase Arterial Blood Glucose Arterial Blood Ionized Calcium Urine WBC (Auto) Salicylates Acetaminophen Coronavirus (PCR) 03/09/21 03/09/21 03/09/21 08:00 11:52 18:05 WBC RBC 2.60 L Hgb 8.5 L Hct 25.5 L MCV 98 H MCH 33 H RDW 18.1 H Seg Neutrophils % Monocytes % (Manual) Seg Neutrophils # Monocytes # (Manual) PT INR D-Dimer Heparin Anti-Xa Level ABG pH POC ABG pCO2 POC ABG pO2 ABG Hemoglobin ABG Oxyhemoglobin ABG Sodium ABG Potassium ABG Chloride ABG Glucose Carboxyhemoglobin Sodium Potassium Chloride Carbon Dioxide BUN Creatinine Glucose POC Glucose 306 H 293 H Lactic Acid Calcium Phosphorus Magnesium Ferritin Total Bilirubin Direct Bilirubin AST ALT Alkaline Phosphatase Ammonia Lactate Dehydrogenase Troponin T C-Reactive Protein Total Protein Albumin Triglycerides Cholesterol HDL Cholesterol Lipase Arterial Blood Glucose Arterial Blood Ionized Calcium Urine WBC (Auto) Salicylates Acetaminophen Coronavirus (PCR) 03/09/21 03/10/21 03/10/21 23:21 04:38 05:25 WBC RBC Hgb 8.6 L Hct 26.0 L MCV MCH RDW Seg Neutrophils % Monocytes % (Manual) Seg Neutrophils # Monocytes # (Manual) PT INR D-Dimer Heparin Anti-Xa Level ABG pH POC ABG pCO2 POC ABG pO2 ABG Hemoglobin ABG Oxyhemoglobin ABG Sodium ABG Potassium ABG Chloride ABG Glucose Carboxyhemoglobin Sodium Potassium Chloride Carbon Dioxide BUN Creatinine Glucose POC Glucose 306 H 310 H Lactic Acid Calcium Phosphorus Magnesium Ferritin Total Bilirubin Direct Bilirubin AST ALT Alkaline Phosphatase Ammonia Lactate Dehydrogenase Troponin T C-Reactive Protein Total Protein Albumin Triglycerides Cholesterol HDL Cholesterol Lipase Arterial Blood Glucose Arterial Blood Ionized Calcium Urine WBC (Auto) Salicylates Acetaminophen Coronavirus (PCR) 03/10/21 03/10/21 03/10/21 05:25 12:33 12:52 WBC RBC Hgb Hct MCV MCH RDW Seg Neutrophils % Monocytes % (Manual) Seg Neutrophils # Monocytes # (Manual) PT INR D-Dimer Heparin Anti-Xa Level ABG pH 7.487 H POC ABG pCO2 POC ABG pO2 62.1 L ABG Hemoglobin 9.4 L ABG Oxyhemoglobin 89.7 L ABG Sodium ABG Potassium ABG Chloride ABG Glucose 350 H Carboxyhemoglobin 0.2 L Sodium Potassium Chloride Carbon Dioxide 32 H BUN 45 H Creatinine Glucose 341 H POC Glucose 340 H Lactic Acid Calcium Phosphorus Magnesium Ferritin Total Bilirubin Direct Bilirubin AST ALT Alkaline Phosphatase Ammonia Lactate Dehydrogenase Troponin T C-Reactive Protein Total Protein Albumin Triglycerides Cholesterol HDL Cholesterol Lipase Arterial Blood Glucose 350 H Arterial Blood Ionized Calcium Urine WBC (Auto) Salicylates Acetaminophen Coronavirus (PCR) 03/10/21 03/10/21 03/11/21 17:05 22:57 04:58 WBC RBC Hgb Hct MCV MCH RDW Seg Neutrophils % Monocytes % (Manual) Seg Neutrophils # Monocytes # (Manual) PT INR D-Dimer Heparin Anti-Xa Level ABG pH POC ABG pCO2 POC ABG pO2 ABG Hemoglobin ABG Oxyhemoglobin ABG Sodium ABG Potassium ABG Chloride ABG Glucose Carboxyhemoglobin Sodium Potassium Chloride Carbon Dioxide BUN Creatinine Glucose POC Glucose 298 H 241 H 261 H Lactic Acid Calcium Phosphorus Magnesium Ferritin Total Bilirubin Direct Bilirubin AST ALT Alkaline Phosphatase Ammonia Lactate Dehydrogenase Troponin T C-Reactive Protein Total Protein Albumin Triglycerides Cholesterol HDL Cholesterol Lipase Arterial Blood Glucose Arterial Blood Ionized Calcium Urine WBC (Auto) Salicylates Acetaminophen Coronavirus (PCR) 03/11/21 03/11/21 03/11/21 06:54 06:54 06:54 WBC RBC Hgb Hct MCV MCH RDW Seg Neutrophils % Monocytes % (Manual) Seg Neutrophils # Monocytes # (Manual) PT INR D-Dimer 238.43 H Heparin Anti-Xa Level ABG pH POC ABG pCO2 POC ABG pO2 ABG Hemoglobin ABG Oxyhemoglobin ABG Sodium ABG Potassium ABG Chloride ABG Glucose Carboxyhemoglobin Sodium 146 H Potassium Chloride Carbon Dioxide 31 H BUN 41 H Creatinine Glucose 255 H POC Glucose Lactic Acid Calcium Phosphorus Magnesium Ferritin 3346.0 H Total Bilirubin Direct Bilirubin AST ALT Alkaline Phosphatase Ammonia Lactate Dehydrogenase 557 H Troponin T C-Reactive Protein 4.70 H Total Protein Albumin Triglycerides Cholesterol HDL Cholesterol Lipase Arterial Blood Glucose Arterial Blood Ionized Calcium Urine WBC (Auto) Salicylates Acetaminophen Coronavirus (PCR) 03/11/21 03/11/21 03/11/21 06:54 11:25 17:41 WBC RBC 2.76 L Hgb 8.9 L Hct 27.0 L MCV 98 H MCH RDW 18.3 H Seg Neutrophils % Monocytes % (Manual) Seg Neutrophils # Monocytes # (Manual) PT INR D-Dimer Heparin Anti-Xa Level ABG pH POC ABG pCO2 POC ABG pO2 ABG Hemoglobin ABG Oxyhemoglobin ABG Sodium ABG Potassium ABG Chloride ABG Glucose Carboxyhemoglobin Sodium Potassium Chloride Carbon Dioxide BUN Creatinine Glucose POC Glucose 255 H 292 H Lactic Acid Calcium Phosphorus Magnesium Ferritin Total Bilirubin Direct Bilirubin AST ALT Alkaline Phosphatase Ammonia Lactate Dehydrogenase Troponin T C-Reactive Protein Total Protein Albumin Triglycerides Cholesterol HDL Cholesterol Lipase Arterial Blood Glucose Arterial Blood Ionized Calcium Urine WBC (Auto) Salicylates Acetaminophen Coronavirus (PCR) 03/11/21 03/12/21 03/12/21 23:26 04:44 05:16 WBC RBC Hgb Hct MCV MCH RDW Seg Neutrophils % Monocytes % (Manual) Seg Neutrophils # Monocytes # (Manual) PT INR D-Dimer Heparin Anti-Xa Level ABG pH POC ABG pCO2 POC ABG pO2 ABG Hemoglobin ABG Oxyhemoglobin ABG Sodium ABG Potassium ABG Chloride ABG Glucose Carboxyhemoglobin Sodium Potassium Chloride Carbon Dioxide BUN Creatinine Glucose POC Glucose 289 H 255 H Lactic Acid Calcium Phosphorus Magnesium Ferritin Total Bilirubin Direct Bilirubin AST ALT Alkaline Phosphatase Ammonia Lactate Dehydrogenase Troponin T 0.149 H* C-Reactive Protein Total Protein Albumin Triglycerides Cholesterol HDL Cholesterol Lipase Arterial Blood Glucose Arterial Blood Ionized Calcium Urine WBC (Auto) Salicylates Acetaminophen Coronavirus (PCR) 03/12/21 03/12/21 03/12/21 12:02 15:00 17:28 WBC RBC Hgb Hct MCV MCH RDW Seg Neutrophils % Monocytes % (Manual) Seg Neutrophils # Monocytes # (Manual) PT INR D-Dimer Heparin Anti-Xa Level ABG pH POC ABG pCO2 POC ABG pO2 ABG Hemoglobin ABG Oxyhemoglobin ABG Sodium ABG Potassium ABG Chloride ABG Glucose Carboxyhemoglobin Sodium Potassium 3.2 L Chloride Carbon Dioxide BUN 39 H Creatinine 0.7 L Glucose 258 H POC Glucose 237 H 257 H Lactic Acid Calcium 8.3 L Phosphorus Magnesium Ferritin Total Bilirubin 2.20 H Direct Bilirubin AST 181 H ALT 129 H Alkaline Phosphatase 541 H Ammonia Lactate Dehydrogenase Troponin T C-Reactive Protein Total Protein 5.0 L Albumin 2.0 L Triglycerides Cholesterol HDL Cholesterol Lipase Arterial Blood Glucose Arterial Blood Ionized Calcium Urine WBC (Auto) Salicylates Acetaminophen Coronavirus (PCR) 03/12/21 03/12/21 03/13/21 21:51 23:15 05:44 WBC RBC Hgb Hct MCV MCH RDW Seg Neutrophils % Monocytes % (Manual) Seg Neutrophils # Monocytes # (Manual) PT INR D-Dimer Heparin Anti-Xa Level ABG pH POC ABG pCO2 POC ABG pO2 ABG Hemoglobin ABG Oxyhemoglobin ABG Sodium ABG Potassium ABG Chloride ABG Glucose Carboxyhemoglobin Sodium Potassium Chloride Carbon Dioxide BUN Creatinine Glucose POC Glucose 253 H 287 H 247 H Lactic Acid Calcium Phosphorus Magnesium Ferritin Total Bilirubin Direct Bilirubin AST ALT Alkaline Phosphatase Ammonia Lactate Dehydrogenase Troponin T C-Reactive Protein Total Protein Albumin Triglycerides Cholesterol HDL Cholesterol Lipase Arterial Blood Glucose Arterial Blood Ionized Calcium Urine WBC (Auto) Salicylates Acetaminophen Coronavirus (PCR) 03/13/21 03/13/21 03/14/21 17:03 23:31 03:40 WBC RBC Hgb Hct MCV MCH RDW Seg Neutrophils % Monocytes % (Manual) Seg Neutrophils # Monocytes # (Manual) PT INR D-Dimer 475.91 H Heparin Anti-Xa Level ABG pH POC ABG pCO2 POC ABG pO2 ABG Hemoglobin ABG Oxyhemoglobin ABG Sodium ABG Potassium ABG Chloride ABG Glucose Carboxyhemoglobin Sodium Potassium Chloride Carbon Dioxide BUN Creatinine Glucose POC Glucose 228 H 275 H Lactic Acid Calcium Phosphorus Magnesium Ferritin Total Bilirubin Direct Bilirubin AST ALT Alkaline Phosphatase Ammonia Lactate Dehydrogenase Troponin T C-Reactive Protein Total Protein Albumin Triglycerides Cholesterol HDL Cholesterol Lipase Arterial Blood Glucose Arterial Blood Ionized Calcium Urine WBC (Auto) Salicylates Acetaminophen Coronavirus (PCR) 03/14/21 03/14/21 03/14/21 03:40 03:40 03:40 WBC RBC 2.25 L Hgb 7.4 L Hct 22.2 L MCV 99 H MCH 33 H RDW 18.5 H Seg Neutrophils % Monocytes % (Manual) Seg Neutrophils # Monocytes # (Manual) PT INR D-Dimer Heparin Anti-Xa Level ABG pH POC ABG pCO2 POC ABG pO2 ABG Hemoglobin ABG Oxyhemoglobin ABG Sodium ABG Potassium ABG Chloride ABG Glucose Carboxyhemoglobin Sodium Potassium 3.3 L Chloride Carbon Dioxide 37 H D BUN 24 H Creatinine 0.6 L Glucose 180 H POC Glucose Lactic Acid Calcium Phosphorus Magnesium Ferritin 3103.0 H Total Bilirubin 1.60 H Direct Bilirubin AST 283 H ALT 188 H Alkaline Phosphatase 619 H Ammonia Lactate Dehydrogenase 588 H Troponin T C-Reactive Protein 4.00 H Total Protein 4.8 L Albumin 2.2 L Triglycerides Cholesterol HDL Cholesterol Lipase Arterial Blood Glucose Arterial Blood Ionized Calcium Urine WBC (Auto) Salicylates Acetaminophen Coronavirus (PCR) 03/15/21 03/15/21 03/15/21 00:34 05:00 05:00 WBC RBC 2.40 L Hgb 7.8 L Hct 23.6 L MCV 99 H MCH 33 H RDW 18.3 H Seg Neutrophils % Monocytes % (Manual) Seg Neutrophils # Monocytes # (Manual) PT INR D-Dimer Heparin Anti-Xa Level ABG pH POC ABG pCO2 POC ABG pO2 ABG Hemoglobin ABG Oxyhemoglobin ABG Sodium ABG Potassium ABG Chloride ABG Glucose Carboxyhemoglobin Sodium Potassium Chloride Carbon Dioxide BUN Creatinine 0.6 L Glucose 238 H POC Glucose 287 H Lactic Acid Calcium 8.0 L Phosphorus Magnesium Ferritin Total Bilirubin 1.50 H Direct Bilirubin AST 189 H ALT 208 H Alkaline Phosphatase 659 H Ammonia Lactate Dehydrogenase Troponin T C-Reactive Protein Total Protein 5.1 L Albumin 2.1 L Triglycerides Cholesterol HDL Cholesterol Lipase Arterial Blood Glucose Arterial Blood Ionized Calcium Urine WBC (Auto) Salicylates Acetaminophen Coronavirus (PCR) 03/15/21 03/15/21 03/15/21 05:05 11:37 16:34 WBC RBC Hgb Hct MCV MCH RDW Seg Neutrophils % Monocytes % (Manual) Seg Neutrophils # Monocytes # (Manual) PT INR D-Dimer Heparin Anti-Xa Level ABG pH POC ABG pCO2 POC ABG pO2 ABG Hemoglobin ABG Oxyhemoglobin ABG Sodium ABG Potassium ABG Chloride ABG Glucose Carboxyhemoglobin Sodium Potassium Chloride Carbon Dioxide BUN Creatinine Glucose POC Glucose 238 H 236 H 280 H Lactic Acid Calcium Phosphorus Magnesium Ferritin Total Bilirubin Direct Bilirubin AST ALT Alkaline Phosphatase Ammonia Lactate Dehydrogenase Troponin T C-Reactive Protein Total Protein Albumin Triglycerides Cholesterol HDL Cholesterol Lipase Arterial Blood Glucose Arterial Blood Ionized Calcium Urine WBC (Auto) Salicylates Acetaminophen Coronavirus (PCR) 03/15/21 03/16/21 03/16/21 23:05 04:39 05:00 WBC RBC Hgb Hct MCV MCH RDW Seg Neutrophils % Monocytes % (Manual) Seg Neutrophils # Monocytes # (Manual) PT INR D-Dimer Heparin Anti-Xa Level ABG pH POC ABG pCO2 POC ABG pO2 ABG Hemoglobin ABG Oxyhemoglobin ABG Sodium ABG Potassium ABG Chloride ABG Glucose Carboxyhemoglobin Sodium Potassium Chloride Carbon Dioxide 33 H BUN Creatinine 0.5 L Glucose 195 H POC Glucose 336 H 205 H Lactic Acid Calcium Phosphorus Magnesium Ferritin Total Bilirubin Direct Bilirubin AST ALT Alkaline Phosphatase Ammonia Lactate Dehydrogenase Troponin T C-Reactive Protein Total Protein Albumin Triglycerides Cholesterol HDL Cholesterol Lipase Arterial Blood Glucose Arterial Blood Ionized Calcium Urine WBC (Auto) Salicylates Acetaminophen Coronavirus (PCR) 03/16/21 03/17/21 03/17/21 11:37 04:50 13:37 WBC RBC 2.52 L Hgb 8.6 L Hct 25.0 L MCV 99 H MCH 34 H RDW 18.1 H Seg Neutrophils % Monocytes % (Manual) Seg Neutrophils # Monocytes # (Manual) PT INR D-Dimer Heparin Anti-Xa Level ABG pH POC ABG pCO2 POC ABG pO2 ABG Hemoglobin ABG Oxyhemoglobin ABG Sodium ABG Potassium ABG Chloride ABG Glucose Carboxyhemoglobin Sodium Potassium Chloride Carbon Dioxide BUN Creatinine Glucose POC Glucose 222 H 113 H Lactic Acid Calcium Phosphorus Magnesium Ferritin Total Bilirubin Direct Bilirubin AST ALT Alkaline Phosphatase Ammonia Lactate Dehydrogenase Troponin T C-Reactive Protein Total Protein Albumin Triglycerides Cholesterol HDL Cholesterol Lipase Arterial Blood Glucose Arterial Blood Ionized Calcium Urine WBC (Auto) Salicylates Acetaminophen Coronavirus (PCR) 03/17/21 03/17/21 03/17/21 13:37 13:41 18:29 WBC RBC Hgb Hct MCV MCH RDW Seg Neutrophils % Monocytes % (Manual) Seg Neutrophils # Monocytes # (Manual) PT INR D-Dimer Heparin Anti-Xa Level ABG pH POC ABG pCO2 POC ABG pO2 ABG Hemoglobin ABG Oxyhemoglobin ABG Sodium ABG Potassium ABG Chloride ABG Glucose Carboxyhemoglobin Sodium Potassium 3.5 L Chloride Carbon Dioxide BUN Creatinine 0.4 L Glucose 174 H POC Glucose 176 H 180 H Lactic Acid Calcium Phosphorus Magnesium Ferritin Total Bilirubin Direct Bilirubin AST ALT Alkaline Phosphatase Ammonia Lactate Dehydrogenase Troponin T C-Reactive Protein Total Protein Albumin Triglycerides Cholesterol HDL Cholesterol Lipase Arterial Blood Glucose Arterial Blood Ionized Calcium Urine WBC (Auto) Salicylates Acetaminophen Coronavirus (PCR) 03/17/21 03/18/21 03/18/21 23:06 05:50 07:53 WBC RBC 2.46 L Hgb 7.9 L Hct 24.5 L MCV 100 H MCH RDW 18.0 H Seg Neutrophils % Monocytes % (Manual) Seg Neutrophils # Monocytes # (Manual) PT INR D-Dimer Heparin Anti-Xa Level ABG pH POC ABG pCO2 POC ABG pO2 ABG Hemoglobin ABG Oxyhemoglobin ABG Sodium ABG Potassium ABG Chloride ABG Glucose Carboxyhemoglobin Sodium Potassium Chloride Carbon Dioxide BUN Creatinine Glucose POC Glucose 127 H 108 H Lactic Acid Calcium Phosphorus Magnesium Ferritin Total Bilirubin Direct Bilirubin AST ALT Alkaline Phosphatase Ammonia Lactate Dehydrogenase Troponin T C-Reactive Protein Total Protein Albumin Triglycerides Cholesterol HDL Cholesterol Lipase Arterial Blood Glucose Arterial Blood Ionized Calcium Urine WBC (Auto) Salicylates Acetaminophen Coronavirus (PCR) 03/18/21 03/18/21 03/18/21 07:53 07:53 11:43 WBC RBC Hgb Hct MCV MCH RDW Seg Neutrophils % Monocytes % (Manual) Seg Neutrophils # Monocytes # (Manual) PT INR D-Dimer Heparin Anti-Xa Level ABG pH POC ABG pCO2 POC ABG pO2 ABG Hemoglobin ABG Oxyhemoglobin ABG Sodium ABG Potassium ABG Chloride ABG Glucose Carboxyhemoglobin Sodium Potassium Chloride Carbon Dioxide 31 H BUN Creatinine 0.4 L Glucose POC Glucose 158 H Lactic Acid Calcium 8.3 L Phosphorus Magnesium Ferritin Total Bilirubin Direct Bilirubin AST ALT Alkaline Phosphatase Ammonia Lactate Dehydrogenase Troponin T 0.185 H* C-Reactive Protein Total Protein Albumin Triglycerides Cholesterol HDL Cholesterol Lipase Arterial Blood Glucose Arterial Blood Ionized Calcium Urine WBC (Auto) Salicylates Acetaminophen Coronavirus (PCR) 03/18/21 03/18/21 03/19/21 16:36 18:03 04:48 WBC RBC Hgb Hct MCV MCH RDW Seg Neutrophils % Monocytes % (Manual) Seg Neutrophils # Monocytes # (Manual) PT INR D-Dimer Heparin Anti-Xa Level ABG pH POC ABG pCO2 POC ABG pO2 ABG Hemoglobin ABG Oxyhemoglobin ABG Sodium ABG Potassium ABG Chloride ABG Glucose Carboxyhemoglobin Sodium Potassium Chloride Carbon Dioxide BUN Creatinine Glucose POC Glucose 133 H 130 H 107 H Lactic Acid Calcium Phosphorus Magnesium Ferritin Total Bilirubin Direct Bilirubin AST ALT Alkaline Phosphatase Ammonia Lactate Dehydrogenase Troponin T C-Reactive Protein Total Protein Albumin Triglycerides Cholesterol HDL Cholesterol Lipase Arterial Blood Glucose Arterial Blood Ionized Calcium Urine WBC (Auto) Salicylates Acetaminophen Coronavirus (PCR) 03/19/21 03/19/21 03/20/21 12:47 22:05 13:05 WBC RBC Hgb Hct MCV MCH RDW Seg Neutrophils % Monocytes % (Manual) Seg Neutrophils # Monocytes # (Manual) PT INR D-Dimer Heparin Anti-Xa Level ABG pH POC ABG pCO2 POC ABG pO2 ABG Hemoglobin ABG Oxyhemoglobin ABG Sodium ABG Potassium ABG Chloride ABG Glucose Carboxyhemoglobin Sodium Potassium Chloride Carbon Dioxide BUN Creatinine Glucose POC Glucose 121 H 123 H 116 H Lactic Acid Calcium Phosphorus Magnesium Ferritin Total Bilirubin Direct Bilirubin AST ALT Alkaline Phosphatase Ammonia Lactate Dehydrogenase Troponin T C-Reactive Protein Total Protein Albumin Triglycerides Cholesterol HDL Cholesterol Lipase Arterial Blood Glucose Arterial Blood Ionized Calcium Urine WBC (Auto) Salicylates Acetaminophen Coronavirus (PCR) 03/20/21 03/21/21 03/21/21 16:47 06:46 10:30 WBC RBC Hgb Hct MCV MCH RDW Seg Neutrophils % Monocytes % (Manual) Seg Neutrophils # Monocytes # (Manual) PT INR D-Dimer Heparin Anti-Xa Level ABG pH POC ABG pCO2 POC ABG pO2 ABG Hemoglobin ABG Oxyhemoglobin ABG Sodium ABG Potassium ABG Chloride ABG Glucose Carboxyhemoglobin Sodium Potassium Chloride Carbon Dioxide BUN Creatinine Glucose POC Glucose 112 H 117 H Lactic Acid Calcium Phosphorus Magnesium Ferritin Total Bilirubin Direct Bilirubin AST ALT Alkaline Phosphatase Ammonia Lactate Dehydrogenase Troponin T C-Reactive Protein Total Protein Albumin Triglycerides Cholesterol HDL Cholesterol Lipase Arterial Blood Glucose Arterial Blood Ionized Calcium Urine WBC (Auto) Salicylates Acetaminophen Coronavirus (PCR) Positive A 03/21/21 03/21/21 03/21/21 11:46 13:30 16:50 WBC RBC Hgb Hct MCV MCH RDW Seg Neutrophils % Monocytes % (Manual) Seg Neutrophils # Monocytes # (Manual) PT INR D-Dimer Heparin Anti-Xa Level ABG pH POC ABG pCO2 POC ABG pO2 ABG Hemoglobin ABG Oxyhemoglobin ABG Sodium ABG Potassium ABG Chloride ABG Glucose Carboxyhemoglobin Sodium 136 L D Potassium 3.2 L Chloride 95.9 L Carbon Dioxide BUN Creatinine 0.4 L Glucose 105 H POC Glucose 107 H 106 H Lactic Acid Calcium 7.9 L Phosphorus Magnesium Ferritin Total Bilirubin Direct Bilirubin AST ALT Alkaline Phosphatase Ammonia Lactate Dehydrogenase Troponin T C-Reactive Protein Total Protein Albumin Triglycerides Cholesterol HDL Cholesterol Lipase Arterial Blood Glucose Arterial Blood Ionized Calcium Urine WBC (Auto) Salicylates Acetaminophen Coronavirus (PCR) 03/21/21 03/22/21 03/22/21 21:26 06:30 09:55 WBC RBC Hgb Hct MCV MCH RDW Seg Neutrophils % Monocytes % (Manual) Seg Neutrophils # Monocytes # (Manual) PT INR D-Dimer Heparin Anti-Xa Level ABG pH POC ABG pCO2 POC ABG pO2 ABG Hemoglobin ABG Oxyhemoglobin ABG Sodium ABG Potassium ABG Chloride ABG Glucose Carboxyhemoglobin Sodium Potassium 2.7 L* Chloride Carbon Dioxide BUN Creatinine 0.6 L Glucose POC Glucose 113 H Lactic Acid Calcium 7.7 L Phosphorus Magnesium 1.60 L Ferritin Total Bilirubin Direct Bilirubin AST ALT Alkaline Phosphatase Ammonia Lactate Dehydrogenase Troponin T C-Reactive Protein Total Protein Albumin Triglycerides Cholesterol HDL Cholesterol Lipase Arterial Blood Glucose Arterial Blood Ionized Calcium Urine WBC (Auto) Salicylates Acetaminophen Coronavirus (PCR) 03/22/21 03/22/21 03/22/21 12:27 14:44 17:48 WBC RBC Hgb Hct MCV MCH RDW Seg Neutrophils % Monocytes % (Manual) Seg Neutrophils # Monocytes # (Manual) PT INR D-Dimer Heparin Anti-Xa Level ABG pH POC ABG pCO2 POC ABG pO2 ABG Hemoglobin ABG Oxyhemoglobin ABG Sodium ABG Potassium ABG Chloride ABG Glucose Carboxyhemoglobin Sodium Potassium 2.9 L* Chloride Carbon Dioxide BUN Creatinine Glucose POC Glucose 110 H 110 H Lactic Acid Calcium Phosphorus Magnesium Ferritin Total Bilirubin Direct Bilirubin AST ALT Alkaline Phosphatase Ammonia Lactate Dehydrogenase Troponin T C-Reactive Protein Total Protein Albumin Triglycerides Cholesterol HDL Cholesterol Lipase Arterial Blood Glucose Arterial Blood Ionized Calcium Urine WBC (Auto) Salicylates Acetaminophen Coronavirus (PCR) 03/22/21 03/23/21 03/23/21 23:20 08:35 17:23 WBC RBC Hgb Hct MCV MCH RDW Seg Neutrophils % Monocytes % (Manual) Seg Neutrophils # Monocytes # (Manual) PT INR D-Dimer Heparin Anti-Xa Level ABG pH POC ABG pCO2 POC ABG pO2 ABG Hemoglobin ABG Oxyhemoglobin ABG Sodium ABG Potassium ABG Chloride ABG Glucose Carboxyhemoglobin Sodium Potassium Chloride Carbon Dioxide BUN Creatinine 0.6 L Glucose POC Glucose 107 H 121 H Lactic Acid Calcium 8.2 L Phosphorus Magnesium Ferritin Total Bilirubin Direct Bilirubin AST ALT Alkaline Phosphatase Ammonia Lactate Dehydrogenase Troponin T C-Reactive Protein Total Protein Albumin Triglycerides Cholesterol HDL Cholesterol Lipase Arterial Blood Glucose Arterial Blood Ionized Calcium Urine WBC (Auto) Salicylates Acetaminophen Coronavirus (PCR) 03/23/21 03/24/21 03/24/21 22:00 06:28 12:58 WBC RBC Hgb Hct MCV MCH RDW Seg Neutrophils % Monocytes % (Manual) Seg Neutrophils # Monocytes # (Manual) PT INR D-Dimer Heparin Anti-Xa Level ABG pH POC ABG pCO2 POC ABG pO2 ABG Hemoglobin ABG Oxyhemoglobin ABG Sodium ABG Potassium ABG Chloride ABG Glucose Carboxyhemoglobin Sodium Potassium Chloride Carbon Dioxide BUN Creatinine Glucose POC Glucose 116 H 121 H 133 H Lactic Acid Calcium Phosphorus Magnesium Ferritin Total Bilirubin Direct Bilirubin AST ALT Alkaline Phosphatase Ammonia Lactate Dehydrogenase Troponin T C-Reactive Protein Total Protein Albumin Triglycerides Cholesterol HDL Cholesterol Lipase Arterial Blood Glucose Arterial Blood Ionized Calcium Urine WBC (Auto) Salicylates Acetaminophen Coronavirus (PCR) Chest x-ray: report reviewed, image reviewed Additional Studies: CHEST - 1 VIEW 0845 hours 03/21/21 INDICATION: Hypoxia COMPARISON: Yesterday FINDINGS: Support devices: Stable and adequate positioning of the left arm PICC Heart: Stable cardiomediastinal silhouette. Lungs/pleura: There is perhaps minimal improvement in the left lower lung infiltrate and small left pleural effusion. The right lung remains clear. No pneumothorax. Additional findings: None. IMPRESSION: Minimal improvement in the left lower lung infiltrate and small left pleural effusion Allied health notes reviewed: nursing
[2021-03-25] MEDS: INSULIN GLARGINE 100 UNITS/ML SUB-Q SCH (01:29)
[2021-03-25] MEDS: INSULIN REGULAR, HUMAN 100 UNITS/1 ML SUB-Q SCH ×4 (01:29→18:17)
[2021-03-25] MEDS: PREGABALIN 50 MG CAP PO SCH ×3 (08:15→19:09)
[2021-03-25] MEDS: ZINC SULFATE 220 MG CAP PO SCH (09:18)
[2021-03-25] MEDS: FAMOTIDINE 20 MG TAB PO SCH ×2 (10:00→22:04)
[2021-03-25] MEDS: ASPIRIN 81 MG TAB CHEW PO SCH (10:08)
[2021-03-25] MEDS: ASCORBIC ACID 500 MG TAB PO SCH ×2 (10:20→22:03)
[2021-03-25] MEDS: SENNOSIDES/DOCUSATE SODIUM 8.6/50 MG TAB FEEDTUBE SCH ×2 (10:30→22:02)
[2021-03-25] MEDS: ENOXAPARIN 150 MG/1 ML INJ SUB-Q SCH ×2 (10:30→22:03)
[2021-03-25] MEDS: guaiFENesin ER 600 MG TAB PO SCH ×2 (10:40→22:04)
[2021-03-25] MEDS: FUROSEMIDE 40 MG TAB PO SCH (10:40)
[2021-03-25] MEDS: CHOLECALCIFEROL (VIT D3) 5,000 UNIT TAB PO SCH (10:40)
--- NOTE | 2021-03-25 11:01 | Progress Note ---
Assessment and Plan SVT * Patient had SVT into 180s on 03/12/2021. Resolved after being given Adenosine 6mg IV. Patient was then started on Amio gtt * Received call from nurse on 03/19/2021 around 11:45am that patient heart rate was in 170s-180s. Upon review of telemetry the patient was in SVT 180s. Code was called and patient given 6mg of adenosine. Patient converted back to sinus tach 100s. * Patient is sinus tachycardic on monitor rate 100s-110s .Optimize rate control: Continue Cardizem 90mg PO Q6hrs. Hypertension * Continue Cardizem 90mg PO Q6hrs. HFpEF * Echo 12/13/2020 - EF 55-60%, otherwise technically difficult study. * Echo 05/2016 - LV mildly dilated, EF 55-60%, grade II diastolic dysfxn, RV mildly enlarged, normal RV sys fxn, LA mildly dilated, RA mildly dilated, mild-mod AR, mild IA, mild aortic root dilatation. * Echo 03/19/2021-EF 55 to 60%, mild diastolic dysfunction present, right ventricular systolic function is normal, left and right atrium are normal in size, mild aortic regurgitation. COVID-19 PNA Acute hypoxic resporitary failure * Patient positive for COVID-19 * Pulmonology and infectious disease are following History of Altered Mental Status * Patient intermittently altered * Management per primary team DVT of RLE * Patient on Enoxaparin 130mg SQ BID. Plan to transition to Coumadin once patie nt is hemodynamically stable * He was diagnosed with a LLE DVT in March 2020 and appears to have been on Coumadin as an outpatient. Continue Cardizem 90mg PO Q6hrs for rate and arrhythmia control. Continue to monitor. Patient waiting for LTAC placement Patient seen in conjunction with Dr. Heard who agrees with this plan of care. Will continue to follow. - Patient Problems (1) ALPHONSO (acute kidney injury) Current Visit: Yes Status: Acute (2) Acute and chronic respiratory failure ([id number]) Current Visit: Yes Status: Acute (3) Acute deep vein thrombosis (DVT) of right lower extremity Current Visit: Yes Status: Acute (4) Encephalopathy Current Visit: Yes Status: Acute (5) NSTEMI (non-ST elevated myocardial infarction) Current Visit: Yes Status: Acute (6) Transaminitis Current Visit: Yes Status: Acute (7) COPD (chronic obstructive pulmonary disease) Current Visit: Yes Status: Chronic (8) Chronic heart failure with preserved ejection fraction (HFpEF) Current Visit: Yes Status: Chronic (9) DM2 (diabetes mellitus, type 2) Current Visit: Yes Status: Chronic Qualifiers: Diabetes mellitus macular edema: with macular edema (10) H/O: HTN (hypertension) Current Visit: Yes Status: Chronic (11) History of pulmonary embolus (PE) Current Visit: Yes Status: Chronic (12) COVID-19 Current Visit: Yes Status: Acute Subjective Principal diagnosis: Ac hypoxemic resp failure; NSTEMI; ALPHONSO; Sepsis; PNA; CHF; DM II; AMS Interval history: Patient sitting in bed. Sinus tachycardia 100s with no events on monitor Objective Last Vital Signs Temp 98.7 F 03/25/21 06:46 Pulse 105 H 03/25/21 06:58 Resp 20 03/25/21 06:46 BP 135/68 03/25/21 06:58 Pulse Ox 95 03/25/21 01:24 - Physical Examination General: No Apparent Distress HEENT: Positive: Normocephaly, Mucus Membranes Moist Neck: Positive: trachea midline Cardiac: Positive: Regular Rhythm, Tachycardia Lungs: Positive: Decreased Breath Sounds Neuro: Positive: Grossly Intact Abdomen: Positive: Soft, Active Bowel Sounds Skin: Negative: Rash Incision: Cardiac Cath Site Musculoskeletal: No Fluid Collection Extremities: Present: edema, +1 Edema, warm - Imaging and Cardiology EKG: report reviewed, image reviewed Echo: report reviewed (12/2020 - EF 55-60%) Cardiac cath: pending - Telemetry EKG Rhythm: Sinus Tachycardia - EKG Sinus rhythms and dysrhythmias: sinus tachycardia Ventricular dysrhythmias: supraventricular captures AV and intraventricular conduction: right bundle branch block Repolarization changes or abnormalities: nonspecific abnormality, ST segment, and/or T wave - Allied health notes Allied health notes reviewed: nursing
[2021-03-25] MEDS: CALCIUM CARB/VIT D3/MINERALS 600 MG/800 UNITS TAB PO SCH ×2 (11:30→22:03)
--- NOTE | 2021-03-25 12:00 | Progress Note ---
Assessment and Plan #Hypokalemia replace prn and follow to keep the potassium around 4 Currently on diuretics,consider initiation of spironolactone as well Check BMP daily Recommend checking magnesium level periodically as well Patient is stable from renal standpoint otherwise will monitor when necessary Subjective Date of service: 03/25/21 Principal diagnosis: Ac hypoxemic resp failure; NSTEMI; ALPHONSO; Sepsis; PNA; CHF; DM II; AMS Interval history: On 60% FiO2 Objective - Exam Narrative Exam: Deferred to reduce transmission risk. Primary team exam reviewed. - Vital Signs Vital signs: Vital Signs - 12hr 03/25/21 03/25/21 03/25/21 01:24 02:05 06:46 Temperature 98.7 F Pulse Rate 105 H Respiratory 20 Rate Blood Pressure 96/57 135/69 O2 Sat by Pulse 95 Oximetry 03/25/21 03/25/21 03/25/21 06:52 06:58 08:00 Temperature Pulse Rate 100 H 105 H Respiratory Rate Blood Pressure 136/69 135/68 O2 Sat by Pulse 92 Oximetry - Lab 03/18/21 07:53 03/23/21 08:35 Most recent lab results ABG pH 7.487 (7.320-7.450) H 03/10/21 12:33 ABG O2 Saturation 90.2 (0-100) 03/10/21 12:33 Calcium 8.2 mg/dL (8.4-10.2) L 03/23/21 08:35 Phosphorus 2.60 mg/dL (2.5-4.5) 03/16/21 05:00 Magnesium 1.60 mg/dL (1.7-2.3) L 03/22/21 09:55 Medications & Allergies - Medications Allergies/Adverse Reactions: Allergies Penicillins Allergy (Verified 03/30/19 10:45) Rash Home Medications: Home Medications Medication Instructions Recorded Confirmed Last Taken Type Albuterol Sulfate [Proventil Hfa] 2.5 gm IH BID PRN 03/16/21 03/16/21 Unknown History Cholecalciferol Vit D3 [Vitamin D3 1,000 unit PO QDAY 03/16/21 03/16/21 Unknown History 1,000 UNIT TAB] Furosemide [Lasix TAB] 80 mg PO QDAY 03/16/21 03/16/21 Unknown History Insulin Glargine [Lantus VIAL] 25 unit SQ BID 03/16/21 03/16/21 Unknown History Linaclotide [Linzess] 145 mcg PO QDAY 03/16/21 03/16/21 Unknown History Pregabalin [Lyrica] 50 mg PO TID 03/16/21 03/16/21 Unknown History Warfarin [Coumadin] 6 mg PO 4XW 03/16/21 03/16/21 Unknown History Warfarin [Coumadin] 9 mg PO 3XW 03/16/21 03/16/21 Unknown History clonazePAM [ Klonopin] 0.5 mg PO BID PRN 03/16/21 03/16/21 Unknown History predniSONE [Deltasone] 15 mg PO QDAY 03/16/21 03/16/21 Unknown History Active Medications: Generic Name Dose Route Start Last Admin Trade Name Freq PRN Reason Stop Dose Admin Acetaminophen 650 mg 03/20/21 23:43 03/21/21 05:54 Acetaminophen 325 Mg Tab PO 650 mg Q4H PRN Administration Pain, Mild (1-3) Albuterol 2 puff 03/20/21 23:05 Albuterol 8.5 Gm Mdi Inhalation IH Q4HRT PRN Shortness Of Breath Lipase/Protease/Amylase 1 each 03/03/21 10:53 Lipase 10,500/Protease 25,000/Amylase 43,750 (Units) Dr Gutierrez FEEDTUBE PRN PRN For Clogged Feeding Tube Ascorbic Acid 500 mg 03/06/21 22:00 03/24/21 21:27 Ascorbic Acid 500 Mg Tab PO 500 mg BID KYLE Administration Aspirin 81 mg 03/04/21 10:00 03/24/21 09:03 Aspirin 81 Mg Tab Chew PO 81 mg QDAY KYLE Administration Cholecalciferol 5,000 unit 03/17/21 11:00 03/24/21 09:03 Cholecalciferol (Vit D3) 5,000 Unit Tab PO 5,000 unit QDAY KYLE Administration Clonazepam 0.5 mg 03/16/21 12:43 03/23/21 00:26 Clonazepam 0.5 Mg Tab PO 0.5 mg BID PRN Administration Anxiety Dextrose 50 ml 03/02/21 11:38 Dextrose 50% In Water (25gm) 50 Ml Syringe IV Q30MIN PRN Hypoglycemia Protocol Diltiazem HCl 90 mg 03/20/21 12:00 03/25/21 06:58 Diltiazem 90 Mg Tab PO 90 mg Q6HR [facility] Administration Enoxaparin Sodium 130 mg 03/09/21 11:00 03/24/21 21:45 Enoxaparin 150 Mg/1 Ml Inj SUB-Q 130 mg Q12HR [facility] Administration Protocol Famotidine 20 mg 03/04/21 10:00 03/24/21 21:27 Famotidine 20 Mg Tab PO 20 mg BID [facility] Administration Furosemide 80 mg 03/17/21 11:00 03/24/21 09:03 Furosemide 40 Mg Tab PO 80 mg QDAY [facility] Administration Guaifenesin 600 mg 03/11/21 22:00 03/24/21 21:26 Guaifenesin Er 600 Mg Tab PO 600 mg BID [facility] Administration Hydrophilic Ointment 1 applic 03/02/21 15:42 Lip Therapy Vaseline TP Q2H PRN Dry Lips Sodium Chloride 1,000 mls @ 1 mls/hr 03/06/21 18:11 Nacl 0.9% 500 Ml IV DIRECT PRN ARTERIAL LINE FLUSH Insulin Glargine 30 units 03/16/21 22:00 03/25/21 01:29 Insulin Glargine 100 Units/Ml SUB-Q Not Given QHS [facility] Insulin Human Regular 0 units 03/10/21 18:00 03/25/21 06:58 Insulin Regular, Human 100 Units/1 Ml SUB-Q Not Given Q6HR [facility] Protocol Magnesium Hydroxide 30 ml 03/02/21 00:18 Magnesium Hydroxide (Mom) Oral Liqd Udc PO Q4H PRN Constipation Metoprolol Tartrate 5 mg 03/12/21 14:15 03/12/21 14:40 Metoprolol Tartrate 5 Mg/5 Ml Inj IV 5 mg Q6HR PRN Administration Tachyarrhythmias Miscellaneous Medication 145 mcg 03/17/21 10:00 Linaclotide [Linzess] PO QDAY [facility] Morphine Sulfate 2 mg 03/20/21 23:44 03/24/21 13:49 Morphine 2 Mg/1 Ml Inj IV 2 mg Q4H PRN Administration Pain, Moderate (4-6) Multi-Ingred Cream/Lotion/Oil/Oint 1 applic 03/02/21 15:42 Mineral Oil/Petrolatum, White Ophth Oint 3.5 Gm OU Q4HR PRN Dry Eye(s) Multivitamins/Minerals 1 each 03/03/21 22:00 03/24/21 21:26 Calcium Carb/Vit D3/Minerals 600 Mg/800 Units Tab PO 1 each BID KYLE Administration Pregabalin 50 mg 03/17/21 14:00 03/24/21 21:26 Pregabalin 50 Mg Cap PO 50 mg TID KYLE Administration Senna/Docusate Sodium 1 tab 03/02/21 22:00 03/24/21 21:27 Sennosides/Docusate Sodium 8.6/50 Mg Tab FEEDTUBE 1 tab BID KYLE Administration Simple Syrup 15 ml 03/03/21 10:53 Simple Syrup 15 Ml FEEDTUBE PRN PRN Hypoglycemia Simple Syrup 30 ml 03/03/21 10:53 Simple Syrup 15 Ml FEEDTUBE PRN PRN Hypoglycemia Sodium Bicarbonate 325 mg 03/03/21 10:53 Sodium Bicarbonate 325 Mg Tab FEEDTUBE PRN PRN For Clogged Feeding Tube Sodium Chloride 10 ml 03/02/21 10:00 03/25/21 02:08 Sodium Chloride 0.9% 10 Ml Flush Syringe IV 10 ml BID KYLE Administration Sodium Chloride 10 ml 03/02/21 00:18 Sodium Chloride 0.9% 10 Ml Flush Syringe IV PRN PRN LINE FLUSH Zinc Sulfate 220 mg 03/06/21 16:00 03/24/21 21:27 Zinc Sulfate 220 Mg Cap PO 220 mg BID KYLE Administration Ziprasidone 20 mg 03/14/21 11:18 Ziprasidone Mesylate 20 Mg Vial IM Q6H PRN Agitation Zolpidem Tartrate 5 mg 03/13/21 17:55 03/23/21 00:26 Zolpidem 5 Mg Tab PO 5 mg QHS PRN Administration Sleep
--- NOTE | 2021-03-25 12:02 | Progress Note ---
Assessment and Plan Assessment and plan: This is a 51-year-old -[place] male with COPD with chronic respiratory failure, CHFpEF, diabetes mellitus, DVT/PE on coumadin and hypertension who presented to [facility] via EMS for AMS and hypoxia. On arrival of EMS oxygen saturation was about 88% on room air, blood pressure was said to be about 88/50 mmHg. Work-up in the emergency room reveals leukocytosis of 12.7, hemoglobin of 9.1 and hematocrit of 27.7, sodium of 132, lactic acid of 2.90, elevated liver enzymes and elevated troponin at 0.493. A CT of the chest showed findings concerning for atelectasis and or infiltrate, CT of the head was unremarkable. Patient was in severe respiratory distress upon arrival in the emergency room and subsequently intubated. Patient was admitted to the hospitalist service with consults to cardiology, CCM, GI, and neprohology for severe sepsis, respiratory failure, pneumonia and ALPHONSO. Of note patient was admitted to [facility] from 12/12-01/14 and was on HD during that admit. 03/03/21: Patient remains intubated, continue on heparin drip, monitor H&H and BMP. Continue empiric antibiotics, ID following. Follow ammonia level and LFT. According to cardiology patient indeed had preserved EF during his recent admission to [place]. Plan to repeat 2D echo. Critical care following, wean off from vent as tolerated. 03/04: RN reported blood y secretions in OETT and clots, heparin gtt stopped and B LE US obtained which shows DVT, abx deescalated, heparin gtt restarted. 03/05: RN reported vomiting x1, promithazine x1 given, Qtc at 599 on EKG. AM labs pending. tmax 102.2, reculture with next spike, COVID 19 PCR. abx stopped re prolonged qtc and received CAP coverage. 03/06: Reported high TF residual, COVID PCR pending. Cr better today. tmax 100.7 03/07: valerie placed yesterday, started on remdesivir re positive covid. ID consulted yesterday. SHERYL overnight. 03/08: SHERYL reported overnight. Patient is now hypertensive and midodrine has been held. Will now place on low dose antihtn and prn hydral. 03/09: Patient reportedly through tube and OETT was exchanged, patient was given paralytic for exchange. No acute events reported overnight. Patient noted to be hypertensive and we will trial Lasix again today. 03/10: PSV trial today. fentayl was stopped. BP maintaining. SHERYL overnight. 03/11: Patient was extuabted, awaiting Speech therapy, discussed with nursing staff at bedside, considering Hypertensive urgency, will do a bedside swallow eval and give oral meds if passed. Continue aspiration precautions. The patient has hx of Asthma, continue neb treatment. 03/12: Patient remains in ICU care secondary to SVT and unstable hemodynamics. Cardiology reevaluated patient was given adenosine and started on amnio drip. Still awaiting speech therapy evaluation although considering her current condition we will keep the patient n.p.o. Case discussed with cold press operator and operations research analyst. Monitor electrolytes and correct as needed. 03/13: Patient this morning remains in normal sinus rhythm following the adenosine and amnio drip which is still going the latter I mean. I will start the patient on Lasix for 3 days and monitor her renal function. Patient is already on high dose of dexamethasone considering his history of bronchospasm disease. We will repeat a pulmonary evaluation we will correct electrolytes especially with the Lasix. CCT 35 pLAN DISCUSSED WITH THE PATIENT AND NURSE 03/14: Patient unfortunately is declining continues on high flow -70% intermittent altered mental status refusing all treatment plan. Psych saw the patient recommended Geodon as needed. Will transition some medications to IV. Continue encouraging patient to use BiPAP. Continue nebulizer treatment and steroid therapy. Pulmonary and cardiology input also appreciated. 03/15: Patient seen and examined, continue to wean oxygen flow as tolerated, Electrolytes replacement protocol inplace, LFT still elevated but trending down some. Again counselling provided to the patient about compliance. Adjust insulin. 03/16: Patient down to 50% FiO2 was saturating 92%. Will transfer to [facility]. Clinically he is showing some improvement. Continue restraints for supportive care continue to monitor for intermittent delirium. 03/17: Patient still with intermittent delirium sometimes refusing medication. Restraints has been renewed for safety as he did take off his oxygen yesterday and desatted to the 70s. His saturation is back to 90-92% with FiO2 of 50% of the high flow. Continue supportive care pulmonary input and ID input noted. 03/18: Continue full supportive care, ideally prone if able, called to update family, continue supportive care, patient treated with -IV/PO Dexamethasone 10 mg daily x 10 days, higher dose due to morbid obesity. Ended 03/15/2021 -Completed Remdesivir still high risk due to hypoxia treatment being complicated by the delirium 03/19; patient is on 30 L of high flow oxygen with FiO2 of 96%. Patient completed remdesivir and Decadron. Patient is still high risk because of hypoxia. Patient has right posterior tibial vein occlusive thrombus and on therapeutic Lovenox. 03/20; on 25 L of high flow oxygen with FiO2 of 45%. Completed Decadron and remdesivir. Patient has DVT and on therapeutic Lovenox. Discussed with case management for possible LTAC placement. 03/21; patient is on 25 L of high flow oxygen. Completed remdesivir and Decadron. Patient did have any urine output and we are going to check bladder scan and give him Lasix 80 mg IV 1 times. Patient is on p.o. Lasix 80 mg daily. Echo was done and was unremarkable. Case management is working to find LTAC place for him. Patient accepted by [facility] pending authorization. 03/22; patient is on 20 L of high flow oxygen with FiO2 of 60%. Patient has severe hypokalemia and was given IV potassium and will check potassium level and repleted according to electrolyte replacement protocol. Patient accepted by [facility] pending authorization. 03/23; patient is on 20 L of high flow oxygen with FiO2 of 60%. Patient has severe hypokalemia and was given IV potassium and will check potassium level and repleted according to electrolyte replacement protocol. Patient accepted by [facility] pending authorization. 03/24 patient is awake and alert eating well, complains of pain in both legs and arms. Denies any chest pain or shortness of breath. Denies fever or chills All interdisciplinary notes reviewed. Lab results reviewed, 03/25: Patient remains on high flow oxygen at this time I did do a peer 2 peer with insurance company for transfer to long-term acute care facility as patient will need a prolonged weaning. His mental status remains precluding factor. Nevertheless I believe that with adequate therapy as he needs physical therapy outpatient therapy and continued reinforcement patient should be able to do well. For now continue to wean oxygen as tolerated. Critical care time spent 35 minutes Assessment and plan: This is a a 51 year old male admitted for for severe sepsis, respiratory failure, pneumonia and ALPHONSO. PMH: COPD, CHF, DM, DVT/PE, HTN, KAM, obesity, asthma PSx: none reported home meds: albuterol sulfate, advair, HCTZ, atrovent, glucophage, Klor-Con, midodrine, metoprolol, lasix, lantus, coumadin (from audit and home meds reconciliation) Social: unknown A/P Neuro: Metabolic encephalopathy -Resolving -Now extbated Cardio: SR/ST: Acute on Chronic HFpEF (per cards), NSTEMI, h/o HTN, HLD, Prolonged QTc, SVT -Cardiology consulted, appreciate recommendations -midodrine d/c r/t HTN -BP monitoring per protocol -Labetalol PO -Per cardiology: 1. gentle IV diuresis when able 2. Echo 12/13/2020 - EF 55-60%, otherwise technically difficult study. Echo 05/2016 - LV mildly dilated, EF 55-60%, grade II diastolic dysfxn, RV mildly enlarged, normal RV sys fxn, LA mildly dilated, RA mildly dilated, mild-mod AR, mild CO, mild aortic root dilatation. Resp: Acute on chronic hypoxic respiratory failure, Bilateral PNA, hx COPD, KAM, asthma, ?PE -Patient is on 40 L and 100% FiO2 via high flow/wean as tolerated -Intubated 03/01, tube exchange 03/09 OETT 8/0 @ 25 lip -EXTUBATED 03/10 -Continuos SPO2 monitoring -abx with levaquin (03/02-03/07)-DC 03/05 r/t prolonged QTc -03/01 CT chest shows several pulmonary nodules within Right lung measuring 6-8 mm, increased interstitial prominence -? f/u outpt with PCP/pulmanology - History of KAM Will start on CPAP at bedtime GI: Transaminitis, TF -GI consulted, appreciate recommendations -Trend LFTs -RUQ US shows no evidence of cholelithiasis, cholecytitis or choledocholithisis -CT abd/pelvis showed fatty infiltration of liver -Continue PPI : ALPHONSO (stable/resolved) -Nephrology consulted, appreciate recommendations -Pt was on HD at recent hospitalization at OSH -Renally dose mediations -Avoid nephrotoxic medications -Strict I&Os -Renal US shows no significant abnormality -Daily weights Heme: DVT-R posterior tibial vein, h/o LLE DVT (December 2019)/ PE (failed Xa inhibitors per cards; on home coumadin) -evidenced on BLE Doppler US -Continue lovenox subq (03/09) -SCDs while in bed -Per cards: Eventually plan to transition to Coumadin ID: Severe Sepsis, B PNA, COVID 19 infection -s/p abx therapy (azithromycin 03/01-03/02, aztreonam 03/02, cefepime 03/01-03/02, levaquin 03/02-03/05, flagyl 03/01-03/02, vancomycin 03/01-03/02) -VAP bundle -MRSA (+) nares -COVID 19 PCR (+) -Decadron for 10 days (03/06-03/15) -Remdesivir (03/06-03/10) -Contact/Droplet precautions -03/01 BCx2 with NGTD, UC with NGTD, sputum culture normal sole -03/06 BC NGTD -Prone as tolerated -Vit C/D/Zinc Morbid obesity Counseling when he is stable and ready to be discharged - Physical exam Narrative exam: The high probability of a clinically significant, sudden or life threatening deterioration of the [pulmonary, neuro, cardiac] system(s) required my full and direct attention, intervention and personal management. The aggregate critical care time was [35] minutes. This time is in addition to time spent performing reported procedures but includes the following: [x] Data Review and interpretation [x] Patient assessment and monitoring of vital signs [x] Documentation [x] Medication orders and management History Interval history: Patient seen and examined, seen and examined this morning. still with in termittent delirium as evident by continuously removing his oxygen and insisting he is fine, prompting the continued restriants. Otherwise oxygen saturation stable on the 60% FIO2. Hospitalist Physical - Physical exam Narrative exam: Patient is on 20 L/60% FiO2 high flow oxygen The patient is morbidly obese. Vital signs as documented. Head exam is unremarkable. No scleral icterus . Neck is without jugular venous distension, thyromegaly, or carotid bruits. Lungs decreased air entry. Cardiac exam reveals regular rate and Rhythm. Abdominal exam reveals normal bowel sounds, nontender Extremities 3+ bilateral lower extremity edema FAMILY COURT COUNSELLOR: Alert and oriented x3. Moves extremities. - Constitutional Vitals: Temp Pulse Resp BP Pulse Ox 98.7 F 105 H 20 135/68 92 03/25/21 06:46 03/25/21 06:58 03/25/21 06:46 03/25/21 06:58 03/25/21 08:00 General appearance: Present: no acute distress, well-nourished, obese, other (sedated) HEART Score - HEART Score Troponin: Troponin T 0.185 ng/mL (0.00-0.029) H* 03/18/21 07:53 Results - Labs CBC & Chem 7: 03/18/21 07:53 03/23/21 08:35 Labs: Laboratory Last Values WBC 8.6 K/mm3 (4.5-11.0) 03/18/21 07:53 RBC 2.46 M/mm3 (3.65-5.03) L 03/18/21 07:53 Hgb 7.9 gm/dl (11.8-15.2) L 03/18/21 07:53 Hct 24.5 % (35.5-45.6) L 03/18/21 07:53 MCV 100 fl (84-94) H 03/18/21 07:53 MCH 32 pg (28-32) 03/18/21 07:53 MCHC 32 % (32-34) 03/18/21 07:53 RDW 18.0 % (13.2-15.2) H 03/18/21 07:53 Plt Count 294 K/mm3 (140-440) 03/18/21 07:53 Lymph % (Auto) 22.4 % (13.4-35.0) 03/06/21 05:20 [place] % (Auto) 4.5 % (0.0-7.3) 03/06/21 05:20 Eos % (Auto) 0.2 % (0.0-4.3) 03/06/21 05:20 Baso % (Auto) 0.3 % (0.0-1.8) 03/06/21 05:20 Lymph # (Auto) 3.4 K/mm3 (1.2-5.4) 03/06/21 05:20 [place] # (Auto) 0.7 K/mm3 (0.0-0.8) 03/06/21 05:20 Eos # (Auto) 0.0 K/mm3 (0.0-0.4) 03/06/21 05:20 Baso # (Auto) 0.1 K/mm3 (0.0-0.1) 03/06/21 05:20 Add Manual Diff Complete 03/01/21 19:21 Total Counted 100 03/01/21 19:21 Seg Neutrophils % 72.6 % (40.0-70.0) H 03/06/21 05:20 Seg Neuts % (Manual) 49.0 % (40.0-70.0) 03/01/21 19:21 Lymphocytes % (Manual) 32.0 % (13.4-35.0) 03/01/21 19:21 Monocytes % (Manual) 17.0 % (0.0-7.3) H 03/01/21 19:21 Eosinophils % (Manual) 1.0 % (0.0-4.3) 03/01/21 19:21 Basophils % (Manual) 1.0 % (0.0-1.8) 03/01/21 19:21 Nucleated RBC % Not Reportable 03/01/21 19:21 Seg Neutrophils # 11.1 K/mm3 (1.8-7.7) H 03/06/21 05:20 Seg Neutrophils # Man 6.2 K/mm3 (1.8-7.7) 03/01/21 19:21 Band Neutrophils # 0.0 K/mm3 03/01/21 19:21 Lymphocytes # (Manual) 4.1 K/mm3 (1.2-5.4) 03/01/21 19:21 Abs React Lymphs (Man) 0.0 K/mm3 03/01/21 19:21 Monocytes # (Manual) 2.2 K/mm3 (0.0-0.8) H 03/01/21 19:21 Eosinophils # (Manual) 0.1 K/mm3 (0.0-0.4) 03/01/21 19:21 Basophils # (Manual) 0.1 K/mm3 (0.0-0.1) 03/01/21 19:21 Metamyelocytes # 0.0 K/mm3 03/01/21 19:21 Myelocytes # 0.0 K/mm3 03/01/21 19:21 Promyelocytes # 0.0 K/mm3 03/01/21 19:21 Blast Cells # 0.0 K/mm3 03/01/21 19:21 WBC Morphology Not Reportable 03/01/21 19:21 Hypersegmented Neuts Not Reportable 03/01/21 19:21 Hyposegmented Neuts Not Reportable 03/01/21 19:21 Hypogranular Neuts Not Reportable 03/01/21 19:21 Smudge Cells Not Reportable 03/01/21 19:21 Toxic Granulation Not Reportable 03/01/21 19:21 Toxic Vacuolation Not Reportable 03/01/21 19:21 Dohle Bodies Not Reportable 03/01/21 19:21 Pelger-Huet Anomaly Not Reportable 03/01/21 19:21 Katherine Rods Not Reportable 03/01/21 19:21 Platelet Estimate Not Reportable 03/01/21 19:21 Clumped Platelets Not Reportable 03/01/21 19:21 Plt Clumps, EDTA Not Reportable 03/01/21 19:21 Large Platelets Not Reportable 03/01/21 19:21 Giant Platelets Not Reportable 03/01/21 19:21 Platelet Satelliting Not Reportable 03/01/21 19:21 Plt Morphology Comment Not Reportable 03/01/21 19:21 RBC Morphology Not Reportable 03/01/21 19:21 Dimorphic RBCs Not Reportable 03/01/21 19:21 Polychromasia Not Reportable 03/01/21 19:21 Hypochromasia Not Reportable 03/01/21 19:21 Poikilocytosis Not Reportable 03/01/21 19:21 Anisocytosis Rare 03/01/21 19:21 Microcytosis Not Reportable 03/01/21 19:21 Macrocytosis Not Reportable 03/01/21 19:21 Spherocytes Not Reportable 03/01/21 19:21 Pappenheimer Bodies Not Reportable 03/01/21 19:21 Sickle Cells Not Reportable 03/01/21 19:21 Target Cells Not Reportable 03/01/21 19:21 Tear Drop Cells Not Reportable 03/01/21 19:21 Ovalocytes Not Reportable 03/01/21 19:21 Helmet Cells Not Reportable 03/01/21 19:21 Qiunones-Parmelee Bodies Not Reportable 03/01/21 19:21 [place] Rings Not Reportable 03/01/21 19:21 Dusty Cells Not Reportable 03/01/21 19:21 Bite Cells Not Reportable 03/01/21 19:21 Crenated Cell Not Reportable 03/01/21 19:21 Elliptocytes Not Reportable 03/01/21 19:21 Acanthocytes (Spur) Not Reportable 03/01/21 19:21 Rouleaux Not Reportable 03/01/21 19:21 Hemoglobin C Crystals Not Reportable 03/01/21 19:21 Schistocytes Few 03/01/21 19:21 Malaria parasites Not Reportable 03/01/21 19:21 Henry Bodies Not Reportable 03/01/21 19:21 Hem Pathologist Commnt No 03/01/21 19:21 PT 15.6 Sec. (12.2-14.9) H 03/04/21 10:17 INR 1.18 (0.87-1.13) H 03/04/21 10:17 APTT 36.6 Sec. (24.2-36.6) 03/02/21 16:28 D-Dimer 475.91 ng/mlDDU (0-234) H 03/14/21 03:40 Heparin Anti-Xa Level 0.64 U.I./ml (0.3-0.7) 03/08/21 10:30 ABG pH 7.487 (7.320-7.450) H 03/10/21 12:33 POC ABG pCO2 40.4 mmHg (32.0-48.0) 03/10/21 12:33 POC ABG pO2 62.1 mmHg (83-108) L 03/10/21 12:33 POC ABG HCO3 29.9 03/10/21 12:33 ABG O2 Saturation 90.2 (0-100) 03/10/21 12:33 POC ABG Base Excess 6.0 03/10/21 12:33 ABG Hemoglobin 9.4 (12.0-17.5) L 03/10/21 12:33 ABG Oxyhemoglobin 89.7 (94-98) L 03/10/21 12:33 ABG Methemoglobin 0.3 (0.0-1.5) 03/10/21 12:33 ABG Sodium 138.7 mmol/L (136.0-145.0) 03/10/21 12:33 ABG Potassium 3.7 mmol/L (3.40-4.50) 03/10/21 12:33 ABG Chloride 104.0 mmol/L (98-107) 03/10/21 12:33 ABG Glucose 350 mg/dL (65-95) H 03/10/21 12:33 Carboxyhemoglobin 0.2 (0.5-1.5) L 03/10/21 12:33 FiO2 % 35.0 03/10/21 12:33 Sodium 138 mmol/L (137-145) 03/23/21 08:35 Potassium 3.8 mmol/L (3.6-5.0) D 03/23/21 08:35 Chloride 98.4 mmol/L (98-107) 03/23/21 08:35 Carbon Dioxide 27 mmol/L (22-30) 03/23/21 08:35 Anion Gap 16 mmol/L 03/23/21 08:35 BUN 12 mg/dL (9-20) 03/23/21 08:35 Creatinine 0.6 mg/dL (0.8-1.3) L 03/23/21 08:35 Estimated GFR > 60 ml/min 03/23/21 08:35 BUN/Creatinine Ratio 20 % 03/23/21 08:35 Glucose 85 mg/dL (75-100) 03/23/21 08:35 POC Glucose 118 mg/dL (70-105) H 03/24/21 22:15 Lactic Acid 1.70 mmol/L (0.7-2.0) 03/04/21 10:17 Calcium 8.2 mg/dL (8.4-10.2) L 03/23/21 08:35 Phosphorus 2.60 mg/dL (2.5-4.5) 03/16/21 05:00 Magnesium 1.60 mg/dL (1.7-2.3) L 03/22/21 09:55 Ferritin 3103.0 ng/mL (30.0-300.0) H 03/14/21 03:40 Total Bilirubin 1.50 mg/dL (0.1-1.2) H 03/15/21 05:00 Direct Bilirubin 0.6 mg/dL (0-0.2) H 03/04/21 05:26 Indirect Bilirubin 0.2 mg/dL 03/04/21 05:26 AST 189 units/L (5-40) H 03/15/21 05:00 ALT 208 units/L (7-56) H 03/15/21 05:00 Alkaline Phosphatase 659 units/L (35-129) H 03/15/21 05:00 Ammonia 71.0 umol/L (25-60) H 03/01/21 19:21 Lactate Dehydrogenase 588 units/L (91-180) H 03/14/21 03:40 Troponin T 0.185 ng/mL (0.00-0.029) H* 03/18/21 07:53 C-Reactive Protein 4.00 mg/dL (0.00-1.30) H 03/14/21 03:40 Total Protein 5.1 g/dL (6.3-8.2) L 03/15/21 05:00 Albumin 2.1 g/dL (3.9-5) L 03/15/21 05:00 Albumin/Globulin Ratio 0.7 % 03/15/21 05:00 Triglycerides 400 mg/dL (2-149) H 03/01/21 19:21 Cholesterol 232 mg/dL (50-199) H 03/01/21 19:21 LDL Cholesterol Direct 130 mg/dL (50-130) 03/01/21 19:21 HDL Cholesterol 22 mg/dL (40-59) L 03/01/21 19:21 Cholesterol/HDL Ratio 10.54 % 03/01/21 19:21 Lipase 78 units/L (13-60) H 03/04/21 10:17 Procalcitonin 1.18 ng/mL (<0.15) 03/08/21 06:10 TSH 1.840 mlU/mL (0.270-4.200) 03/03/21 04:06 Arterial Blood Glucose 350 mg/dL (65-95) H 03/10/21 12:33 Arterial Blood Ionized Calcium 4.6 mg/dL (4.6-5.3) 03/10/21 12:33 Urine Color [place] (Yellow) 03/21/21 Unknown Urine Turbidity Clear (Clear) 03/21/21 Unknown Urine pH 5.0 (5.0-7.0) 03/21/21 Unknown Ur Specific [place] 1.019 (1.003-1.030) 03/21/21 Unknown Urine Protein 100 mg/dl mg/dL (Negative) 03/21/21 Unknown Urine Glucose (UA) Neg mg/dL (Negative) 03/21/21 Unknown Urine Ketones Neg mg/dL (Negative) 03/21/21 Unknown Urine Blood Neg (Negative) 03/21/21 Unknown Urine Nitrite Neg (Negative) 03/21/21 Unknown Urine Bilirubin Neg (Negative) 03/21/21 Unknown Urine Urobilinogen 4.0 mg/dL (<2.0) 03/21/21 Unknown Ur Leukocyte Esterase Neg (Negative) 03/21/21 Unknown Urine WBC (Auto) 4.0 /HPF (0.0-6.0) 03/21/21 Unknown Urine RBC (Auto) 2.0 /HPF (0.0-6.0) 03/21/21 Unknown U Epithel Cells (Auto) 5.0 /HPF (0-13.0) 03/06/21 14:34 Urine Bacteria (Auto) 2+ /HPF (Negative) 03/06/21 14:34 Hyaline Casts 22 /LPF 03/21/21 Unknown Urine Mucus 1+ /HPF 03/21/21 Unknown Urine Yeast (Budding) Few /HPF 03/01/21 21:40 Urine Sperm 3+ /HPF ([employer]) 03/06/21 14:34 Nasal Screen MRSA (PCR) Positive (Negative) 03/02/21 05:00 Salicylates < 0.3 mg/dL (2.8-20.0) L 03/01/21 19:21 Urine Opiates Screen Positive 03/01/21 21:40 Urine Methadone Screen Negative 03/01/21 21:40 Acetaminophen 5.0 ug/mL (10.0-30.0) L 03/01/21 19:21 Ur Barbiturates Screen Negative 03/01/21 21:40 Ur Phencyclidine Scrn Negative 03/01/21 21:40 Ur Amphetamines Screen Negative 03/01/21 21:40 U Benzodiazepines Scrn Negative 03/01/21 21:40 Urine Cocaine Screen Negative 03/01/21 21:40 U Marijuana (THC) Screen Negative 03/01/21 21:40 Drugs of Abuse Note Disclamer 03/01/21 21:40 KARLA Screen Negative (Negative) 03/03/21 04:06 Coronavirus (PCR) Positive (Negative) A 03/21/21 10:30 Blood Type O POSITIVE 03/01/21 19:21 Antibody Screen Negative 03/01/21 19:21 Vilchis/IV: Voiding Method Condom Catheter Active Medications - Current Medications Current Medications: Generic Name Dose Route Start Last Admin Trade Name Freq PRN Reason Stop Dose Admin Acetaminophen 650 mg 03/20/21 23:43 03/21/21 05:54 Acetaminophen 325 Mg Tab PO 650 mg Q4H PRN Administration Pain, Mild (1-3) Albuterol 2 puff 03/20/21 23:05 Albuterol 8.5 Gm Mdi Inhalation IH Q4HRT PRN Shortness Of Breath Lipase/Protease/Amylase 1 each 03/03/21 10:53 Lipase 10,500/Protease 25,000/Amylase 43,750 (Units) Dr Gutierrez FEEDTUBE PRN PRN For Clogged Feeding Tube Ascorbic Acid 500 mg 03/06/21 22:00 03/24/21 21:27 Ascorbic Acid 500 Mg Tab PO 500 mg BID KYLE Administration Aspirin 81 mg 03/04/21 10:00 03/24/21 09:03 Aspirin 81 Mg Tab Chew PO 81 mg QDAY KYLE Administration Cholecalciferol 5,000 unit 03/17/21 11:00 03/24/21 09:03 Cholecalciferol (Vit D3) 5,000 Unit Tab PO 5,000 unit QDAY KYLE Administration Clonazepam 0.5 mg 03/16/21 12:43 03/23/21 00:26 Clonazepam 0.5 Mg Tab PO 0.5 mg BID PRN Administration Anxiety Dextrose 50 ml 03/02/21 11:38 Dextrose 50% In Water (25gm) 50 Ml Syringe IV Q30MIN PRN Hypoglycemia Protocol Diltiazem HCl 90 mg 03/20/21 12:00 03/25/21 06:58 Diltiazem 90 Mg Tab PO 90 mg Q6HR KYLE Administration Enoxaparin Sodium 130 mg 03/09/21 11:00 03/24/21 21:45 Enoxaparin 150 Mg/1 Ml Inj SUB-Q 130 mg Q12HR KYLE Administration Protocol Famotidine 20 mg 03/04/21 10:00 03/24/21 21:27 Famotidine 20 Mg Tab PO 20 mg BID KYLE Administration Furosemide 80 mg 03/17/21 11:00 03/24/21 09:03 Furosemide 40 Mg Tab PO 80 mg QDAY [facility] Administration Guaifenesin 600 mg 03/11/21 22:00 03/24/21 21:26 Guaifenesin Er 600 Mg Tab PO 600 mg BID KYLE Administration Hydrophilic Ointment 1 applic 03/02/21 15:42 Lip Therapy Vaseline TP Q2H PRN Dry Lips Sodium Chloride 1,000 mls @ 1 mls/hr 03/06/21 18:11 Nacl 0.9% 500 Ml IV DIRECT PRN ARTERIAL LINE FLUSH Insulin Glargine 30 units 03/16/21 22:00 03/25/21 01:29 Insulin Glargine 100 Units/Ml SUB-Q Not Given QHS [facility] Insulin Human Regular 0 units 03/10/21 18:00 03/25/21 06:58 Insulin Regular, Human 100 Units/1 Ml SUB-Q Not Given Q6HR [facility] Protocol Magnesium Hydroxide 30 ml 03/02/21 00:18 Magnesium Hydroxide (Mom) Oral Liqd Udc PO Q4H PRN Constipation Metoprolol Tartrate 5 mg 03/12/21 14:15 03/12/21 14:40 Metoprolol Tartrate 5 Mg/5 Ml Inj IV 5 mg Q6HR PRN Administration Tachyarrhythmias Miscellaneous Medication 145 mcg 03/17/21 10:00 Linaclotide [Linzess] PO QDAY [facility] Morphine Sulfate 2 mg 03/20/21 23:44 03/24/21 13:49 Morphine 2 Mg/1 Ml Inj IV 2 mg Q4H PRN Administration Pain, Moderate (4-6) Multi-Ingred Cream/Lotion/Oil/Oint 1 applic 03/02/21 15:42 Mineral Oil/Petrolatum, White Ophth Oint 3.5 Gm OU Q4HR PRN Dry Eye(s) Multivitamins/Minerals 1 each 03/03/21 22:00 03/24/21 21:26 Calcium Carb/Vit D3/Minerals 600 Mg/800 Units Tab PO 1 each BID KYLE Administration Pregabalin 50 mg 03/17/21 14:00 03/24/21 21:26 Pregabalin 50 Mg Cap PO 50 mg TID [facility] Administration Senna/Docusate Sodium 1 tab 03/02/21 22:00 03/24/21 21:27 Sennosides/Docusate Sodium 8.6/50 Mg Tab FEEDTUBE 1 tab BID KYLE Administration Simple Syrup 15 ml 03/03/21 10:53 Simple Syrup 15 Ml FEEDTUBE PRN PRN Hypoglycemia Simple Syrup 30 ml 03/03/21 10:53 Simple Syrup 15 Ml FEEDTUBE PRN PRN Hypoglycemia Sodium Bicarbonate 325 mg 03/03/21 10:53 Sodium Bicarbonate 325 Mg Tab FEEDTUBE PRN PRN For Clogged Feeding Tube Sodium Chloride 10 ml 03/02/21 10:00 03/25/21 02:08 Sodium Chloride 0.9% 10 Ml Flush Syringe IV 10 ml BID KYLE Administration Sodium Chloride 10 ml 03/02/21 00:18 Sodium Chloride 0.9% 10 Ml Flush Syringe IV PRN PRN LINE FLUSH Zinc Sulfate 220 mg 03/06/21 16:00 03/24/21 21:27 Zinc Sulfate 220 Mg Cap PO 220 mg BID KYLE Administration Ziprasidone 20 mg 03/14/21 11:18 Ziprasidone Mesylate 20 Mg Vial IM Q6H PRN Agitation Zolpidem Tartrate 5 mg 03/13/21 17:55 03/23/21 00:26 Zolpidem 5 Mg Tab PO 5 mg QHS PRN Administration Sleep Nutrition/Malnutrition Assess - Dietary Evaluation Nutrition/Malnutrition Findings: Nutrition Notes Start: 03/02/21 10:10 Freq: Status: Active Protocol: Document 03/21/21 14:35 (Rec: 03/21/21 14:38 [id number]) Nutrition Notes Initial or Follow up Reassessment Current Diagnosis Acute Kidney Injury,COPD, Diabetes,Sepsis,Hypertension, Heart Failure,Respiratory Failure Other Pertinent Diagnosis pneu, AMS, COVID(+) Current Diet Cardiac, Consistent CHO Labs/Tests Na 136 K 3.2 Pertinent Medications Lasix Height 5 ft 10 in Weight 131 kg [place] Body Weight (kg) 75.45 BMI 41.4 Weight Status Morbidly Obese Subjective/Other Information Per RN, pt continues to eat 25 % of meals. Pt may need TF to help meet needs. Percent of energy/protein needs met: 27%/11% Burn Absent Trauma Absent Current % PO Poor (25-49%) Minimum of two criteria No Fluid Accumulation Mild (non-severe) #1 Nutrition Diagnosis Inadequate oral intake Diagnosis Progress(for reassessment Continues documentation) Is patient on ventilator? No Is Patient Ambulatory and/or Out of Bed No [facility] 2614.728 Kcal/Kg value to use for calculation 16 Approximate Energy Requirements Using 2096 kcal/Kg Calculation Used for Recommendations Kcal/kg Additional Notes Pro needs up to 2.5g/klg IBW: up to 189g/day Fluid needs 1ml/kcal Nutrition Intervention Change Diet Order: continue Nutrition Support: Recommend supplemental TF Add Supplement/Snack (indicate name/kcal Glucerna daily /protein ) Provides kCal: 220 Provides Protein (gm) 10 Goal #1 PO tolerance Goal #2 PO intake to meet at least 75% energy and pro needs Anticipated Discharge Needs: Cardiac, consistent CHO Follow-Up By: 03/25/21 Additional Comments F/u: intakes and ONS tolerance
[2021-03-25 15:05] LABS: Calcium 8.3 mg/dL (8.4-10.2)
[2021-03-25] MEDS: ACETAMINOPHEN 325 MG TAB PO PRN (22:17)
[2021-03-26] MEDS: INSULIN REGULAR, HUMAN 100 UNITS/1 ML SUB-Q SCH ×2 (02:42→06:45)
[2021-03-26] MEDS: INSULIN GLARGINE 100 UNITS/ML SUB-Q SCH (02:45)
[2021-03-26] MEDS: ZINC SULFATE 220 MG CAP PO SCH (02:46)
--- NOTE | 2021-03-26 07:38 | Discharge Summary ---
Providers - Providers Date of Admission: 03/01/21 23:26 Attending physician: YENNI ARMENDARIZ MD 03/01/21 23:27 Consult to Physician [CONS] Routine Comment: Dr. Gale spoke with Dr. Kim @ 2019 Consulting Provider: SHANNAN KIM Physician Instructions: Reason For Exam: elevated troponin 03/02/21 00:07 Consult to Physician [CONS] Routine Comment: Dr. Gale spoke with Dr. Hammer @ 1 Consulting Provider: CHAIM HAMMER Physician Instructions: Reason For Exam: Respiratory failure, vent 03/02/21 00:19 Consult to Dietitian/Nutrition [CONS] Routine Physician Instructions: Reason For Exam: Reason for Consult: Diet education 03/02/21 00:46 Consult to Physician [CONS] Routine Comment: Consulting Provider: MARLYN CARLSON Physician Instructions: Reason For Exam: Renal failure 03/02/21 07:01 Consult to Physician [CONS] Routine Comment: Consulting Provider: IVET MENESES Physician Instructions: Reason For Exam: Transaminitis 03/03/21 10:03 Consult to Dietitian/Nutrition [CONS] Routine Physician Instructions: Reason For Exam: Reason for Consult: Write/Manage Tube Feeding 03/05/21 07:58 Consult to PICC Line RN [CONS] Urgent Reason For Exam: access required Type Line:: PICC 03/06/21 14:12 Consult to Physician [CONS] Routine Comment: Consulting Provider: ASHA PANCHAL Physician Instructions: Reason For Exam: covid (+) 03/10/21 16:15 Speech Therapy Evaluation and Treat [CONS] Routine Reason For Exam: s/p extubation 03/12/21 13:36 Occupational Therapy Evaluate and Treat [CONS] Routine Comment: Reason For Exam: Debility Physical Therapy Evaluation and Treat [CONS] Routine Comment: Reason For Exam: Debility 03/13/21 10:54 Consult to Physician [CONS] Routine Comment: spoke to SHAYY newton/ yeny Consulting Provider: CANDELARIO BELLO Physician Instructions: Reason For Exam: PSYCHOSIS [facility] Reason for admission: Shortness of breath Condition: Fair Hospital course: This is a 51-year-old -[place] male with COPD with chronic respiratory failure, CHFpEF, diabetes mellitus, DVT/PE on coumadin and hypertension who presented to [facility] via EMS for AMS and hypoxia. On arrival of EMS oxygen saturation was about 88% on room air, blood pressure was said to be about 88/50 mmHg. Work-up in the emergency room reveals leukocytosis of 12.7, hemoglobin of 9.1 and hematocrit of 27.7, sodium of 132, lactic acid of 2.90, elevated liver enzymes and elevated troponin at 0.493. A CT of the chest showed findings concerning for atelectasis and or infiltrate, CT of the head was unremarkable. Patient was in severe respiratory distress upon arrival in the emergency room and subsequently intubated. Patient was admitted to the hospitalist service with consults to cardiology, CCM, GI, and neprohology for severe sepsis, respiratory failure, pneumonia and ALPHONSO. Of note patient was admitted to [facility] from 12/12-01/14 and was on HD during that admit. 03/03/21: Patient remains intubated, continue on heparin drip, monitor H&H and BMP. Continue empiric antibiotics, ID following. Follow ammonia level and LFT. According to cardiology patient indeed had preserved EF during his recent admission to [place]. Plan to repeat 2D echo. Critical care following, wean off from vent as tolerated. 03/04: RN reported blood y secretions in OETT and clots, heparin gtt stopped and B LE US obtained which shows DVT, abx deescalated, heparin gtt restarted. 03/05: RN reported vomiting x1, promithazine x1 given, Qtc at 599 on EKG. AM labs pending. tmax 102.2, reculture with next spike, COVID 19 PCR. abx stopped re prolonged qtc and received CAP coverage. 03/06: Reported high TF residual, COVID PCR pending. Cr better today. tmax 100.7 03/07: valerie placed yesterday, started on remdesivir re positive covid. ID consulted yesterday. SHERYL overnight. 03/08: SHERYL reported overnight. Patient is now hypertensive and midodrine has been held. Will now place on low dose antihtn and prn hydral. 03/09: Patient reportedly through tube and OETT was exchanged, patient was given paralytic for exchange. No acute events reported overnight. Patient noted to be hypertensive and we will trial Lasix again today. 03/10: PSV trial today. fentayl was stopped. BP maintaining. SHERYL overnight. 03/11: Patient was extuabted, awaiting Speech therapy, discussed with nursing staff at bedside, considering Hypertensive urgency, will do a bedside swallow eval and give oral meds if passed. Continue aspiration precautions. The patient has hx of Asthma, continue neb treatment. 03/12: Patient remains in ICU care secondary to SVT and unstable hemodynamics. Cardiology reevaluated patient was given adenosine and started on amnio drip. Still awaiting speech therapy evaluation although considering her current condition we will keep the patient n.p.o. Case discussed with field appraiser and automotive service consultant. Monitor electrolytes and correct as needed. 03/13: Patient this morning remains in normal sinus rhythm following the adenosine and amnio drip which is still going the latter I mean. I will start the patient on Lasix for 3 days and monitor her renal function. Patient is already on high dose of dexamethasone considering his history of bronchospasm disease. We will repeat a pulmonary evaluation we will correct electrolytes especially with the Lasix. CCT 35 pLAN DISCUSSED WITH THE PATIENT AND NURSE 03/14: Patient unfortunately is declining continues on high flow -70% intermittent altered mental status refusing all treatment plan. Psych saw the patient recommended Geodon as needed. Will transition some medications to IV. Continue encouraging patient to use BiPAP. Continue nebulizer treatment and steroid therapy. Pulmonary and cardiology input also appreciated. 03/15: Patient seen and examined, continue to wean oxygen flow as tolerated, Electrolytes replacement protocol inplace, LFT still elevated but trending down some. Again counselling provided to the patient about compliance. Adjust insulin. 03/16: Patient down to 50% FiO2 was saturating 92%. Will transfer to [facility]. Clinically he is showing some improvement. Continue restraints for supportive care continue to monitor for intermittent delirium. 03/17: Patient still with intermittent delirium sometimes refusing medication. Restraints has been renewed for safety as he did take off his oxygen yesterday and desatted to the 70s. His saturation is back to 90-92% with FiO2 of 50% of the high flow. Continue supportive care pulmonary input and ID input noted. 03/18: Continue full supportive care, ideally prone if able, called to update family, continue supportive care, patient treated with -IV/PO Dexamethasone 10 mg daily x 10 days, higher dose due to morbid obesity. Ended 03/15/2021 -Completed Remdesivir still high risk due to hypoxia treatment being complicated by the delirium 03/19; patient is on 30 L of high flow oxygen with FiO2 of 96%. Patient completed remdesivir and Decadron. Patient is still high risk because of hypoxia. Patient has right posterior tibial vein occlusive thrombus and on therapeutic Lovenox. 03/20; on 25 L of high flow oxygen with FiO2 of 45%. Completed Decadron and remdesivir. Patient has DVT and on therapeutic Lovenox. Discussed with case management for possible LTAC placement. 03/21; patient is on 25 L of high flow oxygen. Completed remdesivir and Decadron. Patient did have any urine output and we are going to check bladder scan and give him Lasix 80 mg IV 1 times. Patient is on p.o. Lasix 80 mg daily. Echo was done and was unremarkable. Case management is working to find LTAC place for him. Patient accepted by [facility] pending authorization. 03/22; patient is on 20 L of high flow oxygen with FiO2 of 60%. Patient has severe hypokalemia and was given IV potassium and will check potassium level and repleted according to electrolyte replacement protocol. Patient accepted by [facility] pending authorization. 03/23; patient is on 20 L of high flow oxygen with FiO2 of 60%. Patient has severe hypokalemia and was given IV potassium and will check potassium level and repleted according to electrolyte replacement protocol. Patient accepted by [facility] pending authorization. 03/24 patient is awake and alert eating well, complains of pain in both legs and arms. Denies any chest pain or shortness of breath. Denies fever or chills All interdisciplinary notes reviewed. Lab results reviewed, 03/25: Patient remains on high flow oxygen at this time I did do a peer 2 peer with insurance company for transfer to long-term acute care facility as patient will need a prolonged weaning. His mental status remains precluding factor. Nevertheless I believe that with adequate therapy as he needs physical therapy outpatient therapy and continued reinforcement patient should be able to do well. For now continue to wean oxygen as tolerated. Critical care time spent 35 minutes 03/26: Patient cleared for transfer to LTAC to continue weaning Off High flow Will need continued pulmonary eval +/- Psych although he is stable, just intermittent delirium and trying to remove his oxygen., He completed Remdesivir and Dexamethasone The patient was previously on Wafarin 9mg 4X a week and 6MG 3x a week, He can be converted back to warfarin from the ENOXAPARIN Assessment and plan: This is a a 51 year old male admitted for for severe sepsis, respiratory failure, pneumonia and ALPHONSO. PMH: COPD, CHF, DM, DVT/PE, HTN, KAM, obesity, asthma PSx: none reported home meds: albuterol sulfate, advair, HCTZ, atrovent, glucophage, Klor-Con, midodrine, metoprolol, lasix, lantus, coumadin (from audit and home meds reconciliation) Social: unknown A/P Neuro: Metabolic encephalopathy -Resolving -Now extbated Cardio: SR/ST: Acute on Chronic HFpEF (per cards), NSTEMI, h/o HTN, HLD, Prolonged QTc, SVT -Cardiology consulted, appreciate recommendations -midodrine d/c r/t HTN -BP monitoring per protocol -Labetalol PO -Per cardiology: 1. gentle IV diuresis when able 2. Echo 12/13/2020 - EF 55-60%, otherwise technically difficult study. Echo 05/2016 - LV mildly dilated, EF 55-60%, grade II diastolic dysfxn, RV mildly enlarged, normal RV sys fxn, LA mildly dilated, RA mildly dilated, mild-mod AR, mild ME, mild aortic root dilatation. Resp: Acute on chronic hypoxic respiratory failure, Bilateral PNA, hx COPD, KAM, asthma, ?PE -Patient is on 40 L and 100% FiO2 via high flow/wean as tolerated -Intubated 03/01, tube exchange 03/09 OETT 8/0 @ 25 lip -EXTUBATED 03/10 -Continuos SPO2 monitoring -abx with levaquin (03/02-03/07)-DC 03/05 r/t prolonged QTc -03/01 CT chest shows several pulmonary nodules within Right lung measuring 6-8 mm, increased interstitial prominence -? f/u outpt with PCP/pulmanology - History of KAM Will start on CPAP at bedtime GI: Transaminitis, TF -GI consulted, appreciate recommendations -Trend LFTs -RUQ US shows no evidence of cholelithiasis, cholecytitis or choledocholithisis -CT abd/pelvis showed fatty infiltration of liver -Continue PPI : ALPHONSO (stable/resolved) -Nephrology consulted, appreciate recommendations -Pt was on HD at recent hospitalization at OSH -Renally dose mediations -Avoid nephrotoxic medications -Strict I&Os -Renal US shows no significant abnormality -Daily weights Heme: DVT-R posterior tibial vein, h/o LLE DVT (December 2019)/ PE (failed Xa inhibitors per cards; on home coumadin) -evidenced on BLE Doppler US -Continue lovenox subq (03/09) -SCDs while in bed -Per cards: Eventually plan to transition to Coumadin ID: Severe Sepsis, B PNA, COVID 19 infection -s/p abx therapy (azithromycin 03/01-03/02, aztreonam 03/02, cefepime 03/01-03/02, levaquin 03/02-03/05, flagyl 03/01-03/02, vancomycin 03/01-03/02) -VAP bundle -MRSA (+) nares -COVID 19 PCR (+) -Decadron for 10 days (03/06-03/15) -Remdesivir (03/06-03/10) -Contact/Droplet precautions -03/01 BCx2 with NGTD, UC with NGTD, sputum culture normal sole -03/06 BC NGTD -Prone as tolerated -Vit C/D/Zinc Morbid obesity Counseling when he is stable and ready to be discharged Disposition: [address] [place] [address] Final Discharge Diagnosis (Prints w/discharge instructions): Acute hypoxic respiratory failure secondary to COVID-19 Time spent for discharge: 35 minutes Core Measure Documentation - Palliative Care Palliative Care/ Comfort Measures: Not Applicable - Core Measures Any of the following diagnoses?: none Exam - Physical Exam Narrative exam: Patient is on 20 L/50% FiO2 high flow oxygen The patient is morbidly obese. Vital signs as documented. Head exam is unremarkable. No scleral icterus . Neck is without jugular venous distension, thyromegaly, or carotid bruits. Lungs decreased air entry. Cardiac exam reveals regular rate and Rhythm. 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 Intermittent delirium, moves extremities. - Constitutional Vitals: Temp Pulse Resp BP Pulse Ox 98.9 F 110 H 20 103/53 97 03/26/21 04:58 03/26/21 06:44 03/26/21 04:58 03/26/21 06:44 03/26/21 04:58 Plan Activity: advance as tolerated Diet: low fat Special Instructions: record daily weights, record daily BP diary Plan of Treatment: Outpatient pulmonary follow up Follow up with: KARIS FLORES MD [Primary Care Provider] - 7 Days
--- NOTE | 2021-03-26 11:52 | Progress Note ---
Assessment and Plan SVT * Patient had SVT into 180s on 03/12/2021. Resolved after being given Adenosine 6mg IV. Patient was then started on Amio gtt * Received call from nurse on 03/19/2021 around 11:45am that patient heart rate was in 170s-180s. Upon review of telemetry the patient was in SVT 180s. Code was called and patient given 6mg of adenosine. Patient converted back to sinus tach 100s. * Patient is sinus tachycardic on monitor rate 100s-110s .Optimize rate control: Continue Cardizem 90mg PO Q6hrs. Hypertension * Continue Cardizem 90mg PO Q6hrs. HFpEF * Echo 12/13/2020 - EF 55-60%, otherwise technically difficult study. * Echo 05/2016 - LV mildly dilated, EF 55-60%, grade II diastolic dysfxn, RV mildly enlarged, normal RV sys fxn, LA mildly dilated, RA mildly dilated, mild-mod AR, mild DE, mild aortic root dilatation. * Echo 03/19/2021-EF 55 to 60%, mild diastolic dysfunction present, right ventricular systolic function is normal, left and right atrium are normal in size, mild aortic regurgitation. COVID-19 PNA Acute hypoxic resporitary failure * Patient positive for COVID-19 * Pulmonology and infectious disease are following History of Altered Mental Status * Patient intermittently altered * Management per primary team DVT of RLE * Patient on Enoxaparin 130mg SQ BID. Plan to transition to Coumadin once patie nt is hemodynamically stable * He was diagnosed with a LLE DVT in March 2020 and appears to have been on Coumadin as an outpatient. Continue Cardizem 90mg PO Q6hrs for rate and arrhythmia control. Patient to be discharged to LTAC today. Patient may follow up with Dr. Kim, [facility]. Patient seen in conjunction with Dr. Heard who agrees with this plan of care. Will sign off - Patient Problems (1) ALPHONSO (acute kidney injury) Current Visit: Yes Status: Acute (2) Acute and chronic respiratory failure ([id number]) Current Visit: Yes Status: Acute (3) Acute deep vein thrombosis (DVT) of right lower extremity Current Visit: Yes Status: Acute (4) Encephalopathy Current Visit: Yes Status: Acute (5) NSTEMI (non-ST elevated myocardial infarction) Current Visit: Yes Status: Acute (6) Transaminitis Current Visit: Yes Status: Acute (7) COPD (chronic obstructive pulmonary disease) Current Visit: Yes Status: Chronic (8) Chronic heart failure with preserved ejection fraction (HFpEF) Current Visit: Yes Status: Chronic (9) DM2 (diabetes mellitus, type 2) Current Visit: Yes Status: Chronic Qualifiers: Diabetes mellitus macular edema: with macular edema (10) H/O: HTN (hypertension) Current Visit: Yes Status: Chronic (11) History of pulmonary embolus (PE) Current Visit: Yes Status: Chronic (12) COVID-19 Current Visit: Yes Status: Acute Subjective Date of service: 03/26/21 Principal diagnosis: Ac hypoxemic resp failure; NSTEMI; ALPHONSO; Sepsis; PNA; CHF; DM II; AMS Interval history: Patient resting in bed. Complaints of swelling in extremities Sinus tachycardia 100s with no events on monitor Objective Last Vital Signs Temp 98.9 F 03/26/21 04:58 Pulse 110 H 03/26/21 06:44 Resp 20 03/26/21 04:58 BP 103/53 03/26/21 06:44 Pulse Ox 97 03/26/21 11:30 - Physical Examination General: No Apparent Distress HEENT: Positive: Normocephaly, Mucus Membranes Moist Neck: Positive: trachea midline Cardiac: Positive: Regular Rhythm, Tachycardia Lungs: Positive: Decreased Breath Sounds Neuro: Positive: Grossly Intact Abdomen: Positive: Soft, Active Bowel Sounds Skin: Negative: Rash Incision: Cardiac Cath Site Musculoskeletal: No Fluid Collection Extremities: Present: edema, +4 Edema, warm - Labs and Meds Comprehensive Metabolic Panel 03/25/21 Range/Units 13:38 Sodium 132 L (137-145) mmol/L Potassium 4.0 (3.6-5.0) mmol/L Chloride 96.0 L (98-107) mmol/L Carbon Dioxide 25 (22-30) mmol/L BUN 21 H (9-20) mg/dL Creatinine 1.6 H D (0.8-1.3) mg/dL Glucose 142 H (75-100) mg/dL Calcium 8.3 L (8.4-10.2) mg/dL - Imaging and Cardiology EKG: report reviewed, image reviewed Echo: report reviewed (12/2020 - EF 55-60%) Cardiac cath: pending - Telemetry EKG Rhythm: Sinus Tachycardia - EKG Sinus rhythms and dysrhythmias: sinus tachycardia Ventricular dysrhythmias: supraventricular captures AV and intraventricular conduction: right bundle branch block Repolarization changes or abnormalities: nonspecific abnormality, ST segment, and/or T wave - Allied health notes Allied health notes reviewed: nursing
--- NOTE | 2021-03-26 13:02 | Progress Note ---
Assessment and Plan 51-year-old -[place] male with known history of COPD, CHF, diabetes mellitus, DVT and hypertension was brought into the emergency room by EMS for altered mental status and hypoxia. According to EMS patient was discharged from [facility] after treatment for CHF exacerbation. Patient was found to be altered upon waking up and on arrival of EMS oxygen saturation was about 88% on room air, blood pressure was said to be about 88/50 mmHg.Was subsequently placed on 5 L of oxygen by nasal cannula with improvement in his oxygen saturation. According to who was by the bedside patient was having some mild cough which was nonproductive. He has had no fever or chills. There has been no nausea or vomiting or abdominal pain. Patient has been fully vaccinated against COVID-19. Work-up in the emergency room, labs reveals leukocytosis of 12.7, hemoglobin of 9.1 and hematocrit of 27.7, sodium of 132, lactic acid of 2.90. Liver enzymes were abnormally elevated, troponin was also bumped at 0.493. CT of the chest shows findings concerning for atelectasis and or infiltrate, CT of the head was unremarkable. Patient was in severe respiratory distress upon arrival in the emergency room and subsequently intubated. Patient currently being admitted for mainly severe sepsis, respiratory failure, pneumonia and ALPHONSO. Patient is awake., on vapotherm, FIO2 60% and O2 sat 100%. BIPAP stand by in the room. He is in no acute respiratory distress. Patient is afebrile. Has no leukocytosis. Hemoglobin 7.9. Hematocrit 24.9. Troponin: 0.185. Patient's Sanchez virus PCR is Positive. Cxray on 03/14/21 reported: reported Bibasilar pleural-parenchymal densities . No pneumothorax. No significant change in comparison to 03/12/21. Patients venous duplex studies done 03/04/21 reported Occlusive thrombus in the right posterior tibial vein. The remainder of the veins are patent. Chest xray 03/21/21 reported Minimal improvement in the left lower lung infiltrate and small left pleural effusion Patient is currently on albuterol, Mucinex, Enoxaparin in therapeutic dose and Pepcid. - Patient Problems (1) Acute and chronic respiratory failure ([id number]) Current Visit: Yes Status: Acute Plan to address problem: Vapotherm, FIO2 60% Albuterol inhaler 2 puffs po q 4 hours prn for shortness of breath. S/C Lovenox Famotidine (2) Acute deep vein thrombosis (DVT) of right lower extremity Current Visit: Yes Status: Acute Plan to address problem: Continue S/C Lovenox in therapeutic dose. (3) ALPHONSO (acute kidney injury) Current Visit: Yes Status: Acute Plan to address problem: Management as per primary team and nephrology. (4) CHF (congestive heart failure) Current Visit: Yes Status: Acute (5) COVID-19 Current Visit: Yes Status: Acute Plan to address problem: Patient Positive for Sanchez virus PCR. Management as per infectious diseases. (6) COPD (chronic obstructive pulmonary disease) Current Visit: Yes Status: Chronic Plan to address problem: Vapotherm, FIO2 60% Albuterol inhaler 2 puffs po q 4 hours prn for shortness of breath. S/C Lovenox Famotidine PFTs as out when his condition improves. (7) DM2 (diabetes mellitus, type 2) Current Visit: Yes Status: Chronic Qualifiers: Diabetes mellitus macular edema: with macular edema Plan to address problem: Management as per primary team. (8) KAM (obstructive sleep apnea) Current Visit: Yes Status: Chronic Plan to address problem: BIPAP stand by in the room BIPAP during night time. Recommend sleep study as out patient. (9) Tobacco abuse Current Visit: Yes Status: Chronic Plan to address problem: counseled on smoking cessation. Subjective Date of service: 03/26/21 Principal diagnosis: Ac hypoxemic resp failure; NSTEMI; ALPHONSO; Sepsis; PNA; CHF; DM II; AMS Interval history: 51-year-old -[place] male with known history of COPD, CHF, diabetes mellitus, DVT and hypertension was brought into the emergency room by EMS for altered mental status and hypoxia. According to EMS patient was discharged from [facility] after treatment for CHF exacerbation. Patient was found to be altered upon waking up and on arrival of EMS oxygen saturation was about 88% on room air, blood pressure was said to be about 88/50 mmHg.Was subsequently placed on 5 L of oxygen by nasal cannula with improvement in his oxygen saturation. According to who was by the bedside patient was having some mild cough which was nonproductive. He has had no fever or chills. There has been no nausea or vomiting or abdominal pain. Patient has been fully vaccinated against COVID-19. Work-up in the emergency room, labs reveals leukocytosis of 12.7, hemoglobin of 9.1 and hematocrit of 27.7, sodium of 132, lactic acid of 2.90. Liver enzymes were abnormally elevated, troponin was also bumped at 0.493. CT of the chest shows findings concerning for atelectasis and or infiltrate, CT of the head was unremarkable. Patient was in severe respiratory distress upon arrival in the emergency room and subsequently intubated. Patient currently being admitted for mainly severe sepsis, respiratory failure, pneumonia and ALPHONSO. Patient is awake., on vapotherm, FIO2 60% and O2 sat 94%. BIPAP stand by in the room. He is in no acute respiratory distress. Patient is running low grade temp. Has no leukocytosis. Hemoglobin 7.9. Hematocrit 24.9. Troponin: 0.185. Patient's Sanchez virus PCR is Positive. Cxray on 03/14/21 reported: reported Bibasilar pleural-parenchymal densities . No pneumothorax. No significant change in comparison to 03/12/21. Patients venous duplex studies done 03/04/21 reported Occlusive thrombus in the right posterior tibial vein. The remainder of the veins are patent. Chest xray 03/21/21 reported Minimal improvement in the left lower lung infiltrate and small left pleural effusion Patient is currently on albuterol, Mucinex, Enoxaparin in therapeutic dose and Pepcid. Objective Vital Signs - 12hr 03/26/21 03/26/21 03/26/21 02:00 04:58 06:44 Temperature 98.9 F Pulse Rate 116 H 110 H Respiratory 20 Rate Blood Pressure 106/53 103/53 O2 Sat by Pulse 100 97 Oximetry 03/26/21 11:30 Temperature Pulse Rate Respiratory Rate Blood Pressure O2 Sat by Pulse 97 Oximetry Constitutional: no acute distress, alert, other (middle aged obese male with mildly increased respiratory effort at rest) Eyes: non-icteric ENT: oropharynx moist, other Neck: supple, no lymphadenopathy, no JVD, other (large neck circumference) Effort: mildly labored Ascultation: Bilateral: diminished breath sounds, rhonchi (posterior bases) Percussion: Bilateral: not dull Cardiovascular: regular rate and rhythm, other (S1,S2) Gastrointestinal: normoactive bowel sounds, soft, non-tender, non-distended (protuberant) Integumentary: normal Extremities: no cyanosis, pulses normal, no ischemia or petechiae, edema (trace) Neurologic: non-focal exam (grossly), pupils equal and round, CN II-XII normal Psychiatric: other (Encephalopathic.) CBC and BMP: 03/18/21 07:53 03/25/21 13:38 ABG, PT/INR, D-dimer: ABG ABG pH 7.487 (7.320-7.450) H 03/10/21 12:33 POC ABG pCO2 40.4 mmHg (32.0-48.0) 03/10/21 12:33 POC ABG pO2 62.1 mmHg (83-108) L 03/10/21 12:33 POC ABG HCO3 29.9 03/10/21 12:33 ABG O2 Saturation 90.2 (0-100) 03/10/21 12:33 PT/INR, D-dimer PT 15.6 Sec. (12.2-14.9) H 03/04/21 10:17 INR 1.18 (0.87-1.13) H 03/04/21 10:17 D-Dimer 475.91 ng/mlDDU (0-234) H 03/14/21 03:40 Abnormal lab findings: Abnormal Labs 03/01/21 03/01/21 03/01/21 19:15 19:21 19:21 WBC 12.7 H RBC 2.77 L Hgb 9.1 L Hct 27.7 L MCV 100 H MCH 33 H RDW 18.0 H Seg Neutrophils % Monocytes % (Manual) 17.0 H Seg Neutrophils # Monocytes # (Manual) 2.2 H PT INR D-Dimer Heparin Anti-Xa Level ABG pH POC ABG pCO2 POC ABG pO2 64.9 L ABG Hemoglobin 9.3 L ABG Oxyhemoglobin 93.0 L ABG Sodium 133.8 L ABG Potassium ABG Chloride 97.0 L ABG Glucose 191 H Carboxyhemoglobin Sodium Potassium Chloride Carbon Dioxide BUN Creatinine Glucose POC Glucose Lactic Acid Calcium Phosphorus Magnesium Ferritin Total Bilirubin Direct Bilirubin AST ALT Alkaline Phosphatase Ammonia Lactate Dehydrogenase Troponin T 0.493 H* C-Reactive Protein Total Protein Albumin Triglycerides 400 H Cholesterol 232 H HDL Cholesterol 22 L Lipase Arterial Blood Glucose 191 H Arterial Blood Ionized Calcium 4.4 L Urine WBC (Auto) Salicylates Acetaminophen Coronavirus (PCR) 03/01/21 03/01/21 03/01/21 19:21 19:21 19:21 WBC RBC Hgb Hct MCV MCH RDW Seg Neutrophils % Monocytes % (Manual) Seg Neutrophils # Monocytes # (Manual) PT 16.6 H INR 1.28 H D-Dimer Heparin Anti-Xa Level ABG pH POC ABG pCO2 POC ABG pO2 ABG Hemoglobin ABG Oxyhemoglobin ABG Sodium ABG Potassium ABG Chloride ABG Glucose Carboxyhemoglobin Sodium 132 L Potassium Chloride 92.2 L Carbon Dioxide BUN 43 H Creatinine 2.4 H Glucose 190 H POC Glucose Lactic Acid 2.90 H* Calcium Phosphorus Magnesium Ferritin Total Bilirubin 1.60 H Direct Bilirubin 1.2 H AST 275 H ALT 156 H Alkaline Phosphatase 282 H Ammonia Lactate Dehydrogenase Troponin T C-Reactive Protein Total Protein 5.8 L Albumin 2.6 L Triglycerides Cholesterol HDL Cholesterol Lipase 120 H Arterial Blood Glucose Arterial Blood Ionized Calcium Urine WBC (Auto) Salicylates Acetaminophen Coronavirus (PCR) 03/01/21 03/01/21 03/01/21 19:21 19:21 19:21 WBC RBC Hgb Hct MCV MCH RDW Seg Neutrophils % Monocytes % (Manual) Seg Neutrophils # Monocytes # (Manual) PT INR D-Dimer Heparin Anti-Xa Level ABG pH POC ABG pCO2 POC ABG pO2 ABG Hemoglobin ABG Oxyhemoglobin ABG Sodium ABG Potassium ABG Chloride ABG Glucose Carboxyhemoglobin Sodium Potassium Chloride Carbon Dioxide BUN Creatinine Glucose POC Glucose Lactic Acid Calcium Phosphorus Magnesium Ferritin Total Bilirubin Direct Bilirubin AST ALT Alkaline Phosphatase Ammonia 71.0 H Lactate Dehydrogenase Troponin T C-Reactive Protein Total Protein Albumin Triglycerides Cholesterol HDL Cholesterol Lipase Arterial Blood Glucose Arterial Blood Ionized Calcium Urine WBC (Auto) Salicylates < 0.3 L Acetaminophen 5.0 L Coronavirus (PCR) 03/01/21 03/01/21 03/02/21 20:55 20:55 00:01 WBC RBC Hgb Hct MCV MCH RDW Seg Neutrophils % Monocytes % (Manual) Seg Neutrophils # Monocytes # (Manual) PT INR D-Dimer Heparin Anti-Xa Level ABG pH 7.234 L POC ABG pCO2 POC ABG pO2 240.5 H ABG Hemoglobin 9.3 L ABG Oxyhemoglobin 99.1 H ABG Sodium 135.3 L ABG Potassium ABG Chloride ABG Glucose 286 H Carboxyhemoglobin 0.3 L Sodium Potassium Chloride Carbon Dioxide BUN Creatinine Glucose POC Glucose Lactic Acid 4.30 H* Calcium Phosphorus Magnesium Ferritin Total Bilirubin Direct Bilirubin AST ALT Alkaline Phosphatase Ammonia Lactate Dehydrogenase Troponin T 0.484 H* C-Reactive Protein Total Protein Albumin Triglycerides Cholesterol HDL Cholesterol Lipase Arterial Blood Glucose 286 H Arterial Blood Ionized Calcium Urine WBC (Auto) Salicylates Acetaminophen Coronavirus (PCR) 03/02/21 03/02/21 03/02/21 03:42 05:23 06:35 WBC RBC Hgb Hct MCV MCH RDW Seg Neutrophils % Monocytes % (Manual) Seg Neutrophils # Monocytes # (Manual) PT INR D-Dimer Heparin Anti-Xa Level ABG pH 7.225 L POC ABG pCO2 POC ABG pO2 181.8 H ABG Hemoglobin 9.4 L ABG Oxyhemoglobin 98.6 H ABG Sodium 132.1 L ABG Potassium 5.0 H ABG Chloride ABG Glucose 454 H Carboxyhemoglobin 0.3 L Sodium Potassium Chloride Carbon Dioxide BUN Creatinine Glucose POC Glucose 410 H Lactic Acid 7.50 H* Calcium Phosphorus Magnesium Ferritin Total Bilirubin Direct Bilirubin AST ALT Alkaline Phosphatase Ammonia Lactate Dehydrogenase Troponin T C-Reactive Protein Total Protein Albumin Triglycerides Cholesterol HDL Cholesterol Lipase Arterial Blood Glucose 454 H Arterial Blood Ionized Calcium 4.2 L Urine WBC (Auto) Salicylates Acetaminophen Coronavirus (PCR) 03/02/21 03/02/21 03/02/21 10:48 10:48 10:48 WBC RBC Hgb Hct MCV MCH RDW Seg Neutrophils % Monocytes % (Manual) Seg Neutrophils # Monocytes # (Manual) PT INR D-Dimer Heparin Anti-Xa Level ABG pH POC ABG pCO2 POC ABG pO2 ABG Hemoglobin ABG Oxyhemoglobin ABG Sodium ABG Potassium ABG Chloride ABG Glucose Carboxyhemoglobin Sodium 132 L Potassium Chloride 93.3 L Carbon Dioxide 20 L BUN 46 H Creatinine 1.9 H Glucose 503 H* POC Glucose Lactic Acid 3.40 H* Calcium 7.9 L Phosphorus 5.80 H Magnesium Ferritin Total Bilirubin Direct Bilirubin AST ALT Alkaline Phosphatase Ammonia Lactate Dehydrogenase Troponin T C-Reactive Protein Total Protein Albumin Triglycerides Cholesterol HDL Cholesterol Lipase Arterial Blood Glucose Arterial Blood Ionized Calcium Urine WBC (Auto) Salicylates Acetaminophen Coronavirus (PCR) 03/02/21 03/02/21 03/02/21 11:23 11:38 15:33 WBC RBC Hgb Hct MCV MCH RDW Seg Neutrophils % Monocytes % (Manual) Seg Neutrophils # Monocytes # (Manual) PT INR D-Dimer Heparin Anti-Xa Level ABG pH 7.318 L POC ABG pCO2 POC ABG pO2 ABG Hemoglobin 9.2 L ABG Oxyhemoglobin ABG Sodium 133.2 L ABG Potassium ABG Chloride ABG Glucose 504 H Carboxyhemoglobin 0.3 L Sodium Potassium Chloride Carbon Dioxide BUN Creatinine Glucose POC Glucose 468 H 445 H Lactic Acid Calcium Phosphorus Magnesium Ferritin Total Bilirubin Direct Bilirubin AST ALT Alkaline Phosphatase Ammonia Lactate Dehydrogenase Troponin T C-Reactive Protein Total Protein Albumin Triglycerides Cholesterol HDL Cholesterol Lipase Arterial Blood Glucose 504 H Arterial Blood Ionized Calcium 4.2 L Urine WBC (Auto) Salicylates Acetaminophen Coronavirus (PCR) 03/02/21 03/02/21 03/02/21 16:28 16:28 16:28 WBC RBC Hgb 8.8 L Hct 26.0 L MCV MCH RDW Seg Neutrophils % Monocytes % (Manual) Seg Neutrophils # Monocytes # (Manual) PT 15.2 H INR 1.14 H D-Dimer Heparin Anti-Xa Level ABG pH POC ABG pCO2 POC ABG pO2 ABG Hemoglobin ABG Oxyhemoglobin ABG Sodium ABG Potassium ABG Chloride ABG Glucose Carboxyhemoglobin Sodium 135 L Potassium Chloride 93.8 L Carbon Dioxide BUN 48 H Creatinine 1.8 H Glucose 454 H POC Glucose Lactic Acid Calcium 7.6 L Phosphorus Magnesium Ferritin Total Bilirubin Direct Bilirubin AST ALT Alkaline Phosphatase Ammonia Lactate Dehydrogenase Troponin T C-Reactive Protein Total Protein Albumin Triglycerides Cholesterol HDL Cholesterol Lipase Arterial Blood Glucose Arterial Blood Ionized Calcium Urine WBC (Auto) Salicylates Acetaminophen Coronavirus (PCR) 03/02/21 03/02/21 03/02/21 17:39 18:52 20:09 WBC RBC Hgb Hct MCV MCH RDW Seg Neutrophils % Monocytes % (Manual) Seg Neutrophils # Monocytes # (Manual) PT INR D-Dimer Heparin Anti-Xa Level ABG pH POC ABG pCO2 POC ABG pO2 ABG Hemoglobin ABG Oxyhemoglobin ABG Sodium ABG Potassium ABG Chloride ABG Glucose Carboxyhemoglobin Sodium Potassium Chloride Carbon Dioxide BUN Creatinine Glucose POC Glucose 404 H 357 H 347 H Lactic Acid Calcium Phosphorus Magnesium Ferritin Total Bilirubin Direct Bilirubin AST ALT Alkaline Phosphatase Ammonia Lactate Dehydrogenase Troponin T C-Reactive Protein Total Protein Albumin Triglycerides Cholesterol HDL Cholesterol Lipase Arterial Blood Glucose Arterial Blood Ionized Calcium Urine WBC (Auto) Salicylates Acetaminophen Coronavirus (PCR) 03/02/21 03/02/21 03/02/21 21:03 22:00 22:55 WBC RBC Hgb Hct MCV MCH RDW Seg Neutrophils % Monocytes % (Manual) Seg Neutrophils # Monocytes # (Manual) PT INR D-Dimer Heparin Anti-Xa Level ABG pH POC ABG pCO2 POC ABG pO2 ABG Hemoglobin ABG Oxyhemoglobin ABG Sodium ABG Potassium ABG Chloride ABG Glucose Carboxyhemoglobin Sodium Potassium Chloride Carbon Dioxide BUN Creatinine Glucose POC Glucose 307 H 270 H 237 H Lactic Acid Calcium Phosphorus Magnesium Ferritin Total Bilirubin Direct Bilirubin AST ALT Alkaline Phosphatase Ammonia Lactate Dehydrogenase Troponin T C-Reactive Protein Total Protein Albumin Triglycerides Cholesterol HDL Cholesterol Lipase Arterial Blood Glucose Arterial Blood Ionized Calcium Urine WBC (Auto) Salicylates Acetaminophen Coronavirus (PCR) 03/03/21 03/03/21 03/03/21 00:02 00:57 02:01 WBC RBC Hgb Hct MCV MCH RDW Seg Neutrophils % Monocytes % (Manual) Seg Neutrophils # Monocytes # (Manual) PT INR D-Dimer Heparin Anti-Xa Level ABG pH POC ABG pCO2 POC ABG pO2 ABG Hemoglobin ABG Oxyhemoglobin ABG Sodium ABG Potassium ABG Chloride ABG Glucose Carboxyhemoglobin Sodium Potassium Chloride Carbon Dioxide BUN Creatinine Glucose POC Glucose 252 H 214 H 261 H Lactic Acid Calcium Phosphorus Magnesium Ferritin Total Bilirubin Direct Bilirubin AST ALT Alkaline Phosphatase Ammonia Lactate Dehydrogenase Troponin T C-Reactive Protein Total Protein Albumin Triglycerides Cholesterol HDL Cholesterol Lipase Arterial Blood Glucose Arterial Blood Ionized Calcium Urine WBC (Auto) Salicylates Acetaminophen Coronavirus (PCR) 03/03/21 03/03/21 03/03/21 03:07 03:10 03:50 WBC 13.7 H RBC 2.69 L Hgb 8.7 L Hct 26.9 L MCV 100 H MCH RDW 18.5 H Seg Neutrophils % 79.0 H Monocytes % (Manual) Seg Neutrophils # 10.8 H Monocytes # (Manual) PT INR D-Dimer Heparin Anti-Xa Level ABG pH POC ABG pCO2 50.9 H POC ABG pO2 81.9 L ABG Hemoglobin 8.7 L ABG Oxyhemoglobin ABG Sodium 134.2 L ABG Potassium ABG Chloride 96.0 L ABG Glucose 279 H Carboxyhemoglobin 0.4 L Sodium Potassium Chloride Carbon Dioxide BUN Creatinine Glucose POC Glucose 276 H Lactic Acid Calcium Phosphorus Magnesium Ferritin Total Bilirubin Direct Bilirubin AST ALT Alkaline Phosphatase Ammonia Lactate Dehydrogenase Troponin T C-Reactive Protein Total Protein Albumin Triglycerides Cholesterol HDL Cholesterol Lipase Arterial Blood Glucose 279 H Arterial Blood Ionized Calcium 3.9 L Urine WBC (Auto) Salicylates Acetaminophen Coronavirus (PCR) 03/03/21 03/03/21 03/03/21 03:50 04:06 04:32 WBC RBC Hgb Hct MCV MCH RDW Seg Neutrophils % Monocytes % (Manual) Seg Neutrophils # Monocytes # (Manual) PT INR D-Dimer Heparin Anti-Xa Level ABG pH POC ABG pCO2 POC ABG pO2 ABG Hemoglobin ABG Oxyhemoglobin ABG Sodium ABG Potassium ABG Chloride ABG Glucose Carboxyhemoglobin Sodium Potassium Chloride 94.2 L Carbon Dioxide BUN 45 H Creatinine 1.9 H Glucose 261 H POC Glucose 256 H Lactic Acid Calcium 7.3 L Phosphorus Magnesium Ferritin Total Bilirubin Direct Bilirubin 0.9 H AST 208 H ALT 148 H Alkaline Phosphatase 251 H Ammonia Lactate Dehydrogenase Troponin T C-Reactive Protein Total Protein 5.5 L Albumin 2.4 L Triglycerides Cholesterol HDL Cholesterol Lipase Arterial Blood Glucose Arterial Blood Ionized Calcium Urine WBC (Auto) Salicylates Acetaminophen Coronavirus (PCR) 03/03/21 03/03/21 03/03/21 05:23 06:06 07:07 WBC RBC Hgb Hct MCV MCH RDW Seg Neutrophils % Monocytes % (Manual) Seg Neutrophils # Monocytes # (Manual) PT INR D-Dimer Heparin Anti-Xa Level ABG pH POC ABG pCO2 POC ABG pO2 ABG Hemoglobin ABG Oxyhemoglobin ABG Sodium ABG Potassium ABG Chloride ABG Glucose Carboxyhemoglobin Sodium Potassium Chloride Carbon Dioxide BUN Creatinine Glucose POC Glucose 214 H 249 H 237 H Lactic Acid Calcium Phosphorus Magnesium Ferritin Total Bilirubin Direct Bilirubin AST ALT Alkaline Phosphatase Ammonia Lactate Dehydrogenase Troponin T C-Reactive Protein Total Protein Albumin Triglycerides Cholesterol HDL Cholesterol Lipase Arterial Blood Glucose Arterial Blood Ionized Calcium Urine WBC (Auto) Salicylates Acetaminophen Coronavirus (PCR) 03/03/21 03/03/21 03/03/21 07:58 08:58 09:52 WBC RBC Hgb Hct MCV MCH RDW Seg Neutrophils % Monocytes % (Manual) Seg Neutrophils # Monocytes # (Manual) PT INR D-Dimer Heparin Anti-Xa Level ABG pH POC ABG pCO2 POC ABG pO2 ABG Hemoglobin ABG Oxyhemoglobin ABG Sodium ABG Potassium ABG Chloride ABG Glucose Carboxyhemoglobin Sodium Potassium Chloride Carbon Dioxide BUN Creatinine Glucose POC Glucose 227 H 215 H 207 H Lactic Acid Calcium Phosphorus Magnesium Ferritin Total Bilirubin Direct Bilirubin AST ALT Alkaline Phosphatase Ammonia Lactate Dehydrogenase Troponin T C-Reactive Protein Total Protein Albumin Triglycerides Cholesterol HDL Cholesterol Lipase Arterial Blood Glucose Arterial Blood Ionized Calcium Urine WBC (Auto) Salicylates Acetaminophen Coronavirus (PCR) 03/03/21 03/03/21 03/03/21 10:55 11:44 12:53 WBC RBC Hgb Hct MCV MCH RDW Seg Neutrophils % Monocytes % (Manual) Seg Neutrophils # Monocytes # (Manual) PT INR D-Dimer Heparin Anti-Xa Level ABG pH POC ABG pCO2 POC ABG pO2 ABG Hemoglobin ABG Oxyhemoglobin ABG Sodium ABG Potassium ABG Chloride ABG Glucose Carboxyhemoglobin Sodium Potassium Chloride Carbon Dioxide BUN Creatinine Glucose POC Glucose 198 H 210 H 203 H Lactic Acid Calcium Phosphorus Magnesium Ferritin Total Bilirubin Direct Bilirubin AST ALT Alkaline Phosphatase Ammonia Lactate Dehydrogenase Troponin T C-Reactive Protein Total Protein Albumin Triglycerides Cholesterol HDL Cholesterol Lipase Arterial Blood Glucose Arterial Blood Ionized Calcium Urine WBC (Auto) Salicylates Acetaminophen Coronavirus (PCR) 03/03/21 03/03/21 03/03/21 13:53 14:58 15:23 WBC RBC Hgb Hct MCV MCH RDW Seg Neutrophils % Monocytes % (Manual) Seg Neutrophils # Monocytes # (Manual) PT INR D-Dimer Heparin Anti-Xa Level ABG pH POC ABG pCO2 POC ABG pO2 ABG Hemoglobin ABG Oxyhemoglobin ABG Sodium ABG Potassium ABG Chloride ABG Glucose Carboxyhemoglobin Sodium Potassium Chloride Carbon Dioxide BUN Creatinine Glucose POC Glucose 210 H 187 H Lactic Acid 3.10 H* Calcium Phosphorus Magnesium Ferritin Total Bilirubin Direct Bilirubin AST ALT Alkaline Phosphatase Ammonia Lactate Dehydrogenase Troponin T C-Reactive Protein Total Protein Albumin Triglycerides Cholesterol HDL Cholesterol Lipase Arterial Blood Glucose Arterial Blood Ionized Calcium Urine WBC (Auto) Salicylates Acetaminophen Coronavirus (PCR) 03/03/21 03/03/21 03/03/21 15:51 16:25 16:53 WBC RBC Hgb Hct MCV MCH RDW Seg Neutrophils % Monocytes % (Manual) Seg Neutrophils # Monocytes # (Manual) PT INR D-Dimer Heparin Anti-Xa Level ABG pH POC ABG pCO2 POC ABG pO2 ABG Hemoglobin ABG Oxyhemoglobin ABG Sodium ABG Potassium ABG Chloride ABG Glucose Carboxyhemoglobin Sodium Potassium Chloride 91.0 L Carbon Dioxide 34 H BUN 47 H Creatinine 1.7 H Glucose 190 H POC Glucose 182 H 179 H Lactic Acid Calcium 7.6 L Phosphorus Magnesium Ferritin Total Bilirubin Direct Bilirubin AST ALT Alkaline Phosphatase Ammonia Lactate Dehydrogenase Troponin T C-Reactive Protein Total Protein Albumin Triglycerides Cholesterol HDL Cholesterol Lipase Arterial Blood Glucose Arterial Blood Ionized Calcium Urine WBC (Auto) Salicylates Acetaminophen Coronavirus (PCR) 03/03/21 03/03/21 03/03/21 17:55 19:37 20:57 WBC RBC Hgb Hct MCV MCH RDW Seg Neutrophils % Monocytes % (Manual) Seg Neutrophils # Monocytes # (Manual) PT INR D-Dimer Heparin Anti-Xa Level ABG pH POC ABG pCO2 POC ABG pO2 ABG Hemoglobin ABG Oxyhemoglobin ABG Sodium ABG Potassium ABG Chloride ABG Glucose Carboxyhemoglobin Sodium Potassium Chloride Carbon Dioxide BUN Creatinine Glucose POC Glucose 185 H 174 H 175 H Lactic Acid Calcium Phosphorus Magnesium Ferritin Total Bilirubin Direct Bilirubin AST ALT Alkaline Phosphatase Ammonia Lactate Dehydrogenase Troponin T C-Reactive Protein Total Protein Albumin Triglycerides Cholesterol HDL Cholesterol Lipase Arterial Blood Glucose Arterial Blood Ionized Calcium Urine WBC (Auto) Salicylates Acetaminophen Coronavirus (PCR) 03/03/21 03/03/21 03/03/21 22:02 22:56 23:10 WBC RBC Hgb Hct MCV MCH RDW Seg Neutrophils % Monocytes % (Manual) Seg Neutrophils # Monocytes # (Manual) PT INR D-Dimer Heparin Anti-Xa Level 0.75 H ABG pH POC ABG pCO2 POC ABG pO2 ABG Hemoglobin ABG Oxyhemoglobin ABG Sodium ABG Potassium ABG Chloride ABG Glucose Carboxyhemoglobin Sodium Potassium Chloride Carbon Dioxide BUN Creatinine Glucose POC Glucose 170 H 160 H Lactic Acid Calcium Phosphorus Magnesium Ferritin Total Bilirubin Direct Bilirubin AST ALT Alkaline Phosphatase Ammonia Lactate Dehydrogenase Troponin T C-Reactive Protein Total Protein Albumin Triglycerides Cholesterol HDL Cholesterol Lipase Arterial Blood Glucose Arterial Blood Ionized Calcium Urine WBC (Auto) Salicylates Acetaminophen Coronavirus (PCR) 03/03/21 03/04/21 03/04/21 23:42 00:52 01:55 WBC RBC Hgb Hct MCV MCH RDW Seg Neutrophils % Monocytes % (Manual) Seg Neutrophils # Monocytes # (Manual) PT INR D-Dimer Heparin Anti-Xa Level ABG pH POC ABG pCO2 POC ABG pO2 ABG Hemoglobin ABG Oxyhemoglobin ABG Sodium ABG Potassium ABG Chloride ABG Glucose Carboxyhemoglobin Sodium Potassium Chloride Carbon Dioxide BUN Creatinine Glucose POC Glucose 161 H 167 H 119 H Lactic Acid Calcium Phosphorus Magnesium Ferritin Total Bilirubin Direct Bilirubin AST ALT Alkaline Phosphatase Ammonia Lactate Dehydrogenase Troponin T C-Reactive Protein Total Protein Albumin Triglycerides Cholesterol HDL Cholesterol Lipase Arterial Blood Glucose Arterial Blood Ionized Calcium Urine WBC (Auto) Salicylates Acetaminophen Coronavirus (PCR) 03/04/21 03/04/21 03/04/21 02:58 03:47 04:03 WBC RBC Hgb Hct MCV MCH RDW Seg Neutrophils % Monocytes % (Manual) Seg Neutrophils # Monocytes # (Manual) PT INR D-Dimer Heparin Anti-Xa Level ABG pH POC ABG pCO2 57.3 H POC ABG pO2 63.7 L ABG Hemoglobin 8.4 L ABG Oxyhemoglobin 88.6 L ABG Sodium 132.5 L ABG Potassium 3.2 L ABG Chloride 94.0 L ABG Glucose 129 H Carboxyhemoglobin Sodium Potassium Chloride Carbon Dioxide BUN Creatinine Glucose POC Glucose 111 H 122 H Lactic Acid Calcium Phosphorus Magnesium Ferritin Total Bilirubin Direct Bilirubin AST ALT Alkaline Phosphatase Ammonia Lactate Dehydrogenase Troponin T C-Reactive Protein Total Protein Albumin Triglycerides Cholesterol HDL Cholesterol Lipase Arterial Blood Glucose 129 H Arterial Blood Ionized Calcium 3.8 L Urine WBC (Auto) Salicylates Acetaminophen Coronavirus (PCR) 03/04/21 03/04/21 03/04/21 05:15 05:26 05:26 WBC RBC Hgb 7.9 L Hct 23.7 L MCV MCH RDW Seg Neutrophils % Monocytes % (Manual) Seg Neutrophils # Monocytes # (Manual) PT INR D-Dimer Heparin Anti-Xa Level ABG pH POC ABG pCO2 POC ABG pO2 ABG Hemoglobin ABG Oxyhemoglobin ABG Sodium ABG Potassium ABG Chloride ABG Glucose Carboxyhemoglobin Sodium Potassium Chloride Carbon Dioxide BUN Creatinine Glucose POC Glucose 127 H Lactic Acid Calcium Phosphorus Magnesium Ferritin Total Bilirubin Direct Bilirubin 0.6 H AST 123 H ALT 105 H Alkaline Phosphatase 232 H Ammonia Lactate Dehydrogenase Troponin T C-Reactive Protein Total Protein 4.8 L Albumin 2.2 L Triglycerides Cholesterol HDL Cholesterol Lipase Arterial Blood Glucose Arterial Blood Ionized Calcium Urine WBC (Auto) Salicylates Acetaminophen Coronavirus (PCR) 03/04/21 03/04/21 03/04/21 05:26 06:01 06:53 WBC RBC Hgb Hct MCV MCH RDW Seg Neutrophils % Monocytes % (Manual) Seg Neutrophils # Monocytes # (Manual) PT INR D-Dimer Heparin Anti-Xa Level 0.71 H ABG pH POC ABG pCO2 POC ABG pO2 ABG Hemoglobin ABG Oxyhemoglobin ABG Sodium ABG Potassium ABG Chloride ABG Glucose Carboxyhemoglobin Sodium Potassium Chloride Carbon Dioxide BUN Creatinine Glucose POC Glucose 120 H 117 H Lactic Acid Calcium Phosphorus Magnesium Ferritin Total Bilirubin Direct Bilirubin AST ALT Alkaline Phosphatase Ammonia Lactate Dehydrogenase Troponin T C-Reactive Protein Total Protein Albumin Triglycerides Cholesterol HDL Cholesterol Lipase Arterial Blood Glucose Arterial Blood Ionized Calcium Urine WBC (Auto) Salicylates Acetaminophen Coronavirus (PCR) 03/04/21 03/04/21 03/04/21 07:57 10:17 10:17 WBC RBC 2.51 L Hgb 8.3 L Hct 25.3 L MCV 101 H MCH 33 H RDW 18.5 H Seg Neutrophils % Monocytes % (Manual) Seg Neutrophils # Monocytes # (Manual) PT INR D-Dimer Heparin Anti-Xa Level ABG pH POC ABG pCO2 POC ABG pO2 ABG Hemoglobin ABG Oxyhemoglobin ABG Sodium ABG Potassium ABG Chloride ABG Glucose Carboxyhemoglobin Sodium 136 L Potassium Chloride 93.1 L Carbon Dioxide 33 H BUN 46 H Creatinine 1.4 H Glucose 151 H POC Glucose 129 H Lactic Acid Calcium 7.5 L Phosphorus Magnesium Ferritin Total Bilirubin Direct Bilirubin AST 126 H ALT 100 H Alkaline Phosphatase 226 H Ammonia Lactate Dehydrogenase Troponin T C-Reactive Protein Total Protein 5.0 L Albumin 2.2 L Triglycerides Cholesterol HDL Cholesterol Lipase Arterial Blood Glucose Arterial Blood Ionized Calcium Urine WBC (Auto) Salicylates Acetaminophen Coronavirus (PCR) 03/04/21 03/04/21 03/04/21 10:17 10:17 11:26 WBC RBC Hgb Hct MCV MCH RDW Seg Neutrophils % Monocytes % (Manual) Seg Neutrophils # Monocytes # (Manual) PT 15.6 H INR 1.18 H D-Dimer Heparin Anti-Xa Level ABG pH POC ABG pCO2 POC ABG pO2 ABG Hemoglobin ABG Oxyhemoglobin ABG Sodium ABG Potassium ABG Chloride ABG Glucose Carboxyhemoglobin Sodium Potassium Chloride Carbon Dioxide BUN Creatinine Glucose POC Glucose 167 H Lactic Acid Calcium Phosphorus Magnesium Ferritin Total Bilirubin Direct Bilirubin AST ALT Alkaline Phosphatase Ammonia Lactate Dehydrogenase Troponin T C-Reactive Protein Total Protein Albumin Triglycerides Cholesterol HDL Cholesterol Lipase 78 H Arterial Blood Glucose Arterial Blood Ionized Calcium Urine WBC (Auto) Salicylates Acetaminophen Coronavirus (PCR) 03/04/21 03/04/21 03/04/21 13:04 16:26 17:58 WBC RBC Hgb 7.7 L Hct 23.2 L MCV MCH RDW Seg Neutrophils % Monocytes % (Manual) Seg Neutrophils # Monocytes # (Manual) PT INR D-Dimer Heparin Anti-Xa Level < 0.10 L ABG pH POC ABG pCO2 POC ABG pO2 ABG Hemoglobin ABG Oxyhemoglobin ABG Sodium ABG Potassium ABG Chloride ABG Glucose Carboxyhemoglobin Sodium Potassium Chloride Carbon Dioxide BUN Creatinine Glucose POC Glucose 167 H Lactic Acid Calcium Phosphorus Magnesium Ferritin Total Bilirubin Direct Bilirubin AST ALT Alkaline Phosphatase Ammonia Lactate Dehydrogenase Troponin T C-Reactive Protein Total Protein Albumin Triglycerides Cholesterol HDL Cholesterol Lipase Arterial Blood Glucose Arterial Blood Ionized Calcium Urine WBC (Auto) Salicylates Acetaminophen Coronavirus (PCR) 03/04/21 03/05/21 03/05/21 23:47 04:00 05:06 WBC RBC Hgb Hct MCV MCH RDW Seg Neutrophils % Monocytes % (Manual) Seg Neutrophils # Monocytes # (Manual) PT INR D-Dimer Heparin Anti-Xa Level ABG pH POC ABG pCO2 POC ABG pO2 129.1 H ABG Hemoglobin 8.3 L ABG Oxyhemoglobin ABG Sodium 131.4 L ABG Potassium ABG Chloride 95.0 L ABG Glucose 153 H Carboxyhemoglobin Sodium Potassium Chloride Carbon Dioxide BUN Creatinine Glucose POC Glucose 153 H 139 H Lactic Acid Calcium Phosphorus Magnesium Ferritin Total Bilirubin Direct Bilirubin AST ALT Alkaline Phosphatase Ammonia Lactate Dehydrogenase Troponin T C-Reactive Protein Total Protein Albumin Triglycerides Cholesterol HDL Cholesterol Lipase Arterial Blood Glucose 153 H Arterial Blood Ionized Calcium Urine WBC (Auto) Salicylates Acetaminophen Coronavirus (PCR) 03/05/21 03/05/21 03/05/21 11:43 13:35 13:35 WBC RBC 2.38 L Hgb 7.8 L Hct 23.8 L MCV 100 H MCH 33 H RDW 18.2 H Seg Neutrophils % Monocytes % (Manual) Seg Neutrophils # Monocytes # (Manual) PT INR D-Dimer Heparin Anti-Xa Level ABG pH POC ABG pCO2 POC ABG pO2 ABG Hemoglobin ABG Oxyhemoglobin ABG Sodium ABG Potassium ABG Chloride ABG Glucose Carboxyhemoglobin Sodium Potassium Chloride 94.4 L Carbon Dioxide BUN 49 H Creatinine 1.6 H Glucose 165 H POC Glucose 174 H Lactic Acid Calcium 7.5 L Phosphorus Magnesium Ferritin Total Bilirubin Direct Bilirubin AST ALT Alkaline Phosphatase Ammonia Lactate Dehydrogenase Troponin T C-Reactive Protein Total Protein Albumin Triglycerides Cholesterol HDL Cholesterol Lipase Arterial Blood Glucose Arterial Blood Ionized Calcium Urine WBC (Auto) Salicylates Acetaminophen Coronavirus (PCR) 03/05/21 03/05/21 03/05/21 17:57 21:27 Unknown WBC RBC Hgb Hct MCV MCH RDW Seg Neutrophils % Monocytes % (Manual) Seg Neutrophils # Monocytes # (Manual) PT INR D-Dimer Heparin Anti-Xa Level ABG pH POC ABG pCO2 POC ABG pO2 ABG Hemoglobin ABG Oxyhemoglobin ABG Sodium ABG Potassium ABG Chloride ABG Glucose Carboxyhemoglobin Sodium Potassium Chloride Carbon Dioxide BUN Creatinine Glucose POC Glucose 129 H 129 H Lactic Acid Calcium Phosphorus Magnesium Ferritin Total Bilirubin Direct Bilirubin AST ALT Alkaline Phosphatase Ammonia Lactate Dehydrogenase Troponin T C-Reactive Protein Total Protein Albumin Triglycerides Cholesterol HDL Cholesterol Lipase Arterial Blood Glucose Arterial Blood Ionized Calcium Urine WBC (Auto) Salicylates Acetaminophen Coronavirus (PCR) Positive A 03/06/21 03/06/21 03/06/21 03:30 04:30 05:20 WBC 15.2 H RBC 2.48 L Hgb 8.2 L Hct 24.9 L MCV 100 H MCH 33 H RDW 18.6 H Seg Neutrophils % 72.6 H Monocytes % (Manual) Seg Neutrophils # 11.1 H Monocytes # (Manual) PT INR D-Dimer Heparin Anti-Xa Level ABG pH POC ABG pCO2 49.7 H POC ABG pO2 65.1 L ABG Hemoglobin 9.1 L ABG Oxyhemoglobin 90.2 L ABG Sodium 131.2 L ABG Potassium ABG Chloride 96.0 L ABG Glucose 133 H Carboxyhemoglobin Sodium Potassium Chloride Carbon Dioxide BUN Creatinine Glucose POC Glucose Lactic Acid Calcium Phosphorus Magnesium Ferritin Total Bilirubin Direct Bilirubin AST ALT Alkaline Phosphatase Ammonia Lactate Dehydrogenase Troponin T C-Reactive Protein 27.90 H Total Protein Albumin Triglycerides Cholesterol HDL Cholesterol Lipase Arterial Blood Glucose 133 H Arterial Blood Ionized Calcium 4.2 L Urine WBC (Auto) Salicylates Acetaminophen Coronavirus (PCR) 03/06/21 03/06/21 03/06/21 05:20 05:30 11:52 WBC RBC Hgb Hct MCV MCH RDW Seg Neutrophils % Monocytes % (Manual) Seg Neutrophils # Monocytes # (Manual) PT INR D-Dimer Heparin Anti-Xa Level ABG pH POC ABG pCO2 POC ABG pO2 ABG Hemoglobin ABG Oxyhemoglobin ABG Sodium ABG Potassium ABG Chloride ABG Glucose Carboxyhemoglobin Sodium 135 L Potassium Chloride 94.5 L Carbon Dioxide BUN 49 H Creatinine Glucose 121 H POC Glucose 123 H 123 H Lactic Acid Calcium 7.3 L Phosphorus Magnesium 1.50 L Ferritin Total Bilirubin Direct Bilirubin AST 120 H ALT 74 H Alkaline Phosphatase 306 H Ammonia Lactate Dehydrogenase Troponin T C-Reactive Protein Total Protein 4.5 L Albumin 2.0 L Triglycerides Cholesterol HDL Cholesterol Lipase Arterial Blood Glucose Arterial Blood Ionized Calcium Urine WBC (Auto) Salicylates Acetaminophen Coronavirus (PCR) 03/06/21 03/06/21 03/06/21 14:34 17:45 23:36 WBC RBC Hgb Hct MCV MCH RDW Seg Neutrophils % Monocytes % (Manual) Seg Neutrophils # Monocytes # (Manual) PT INR D-Dimer Heparin Anti-Xa Level ABG pH POC ABG pCO2 POC ABG pO2 ABG Hemoglobin ABG Oxyhemoglobin ABG Sodium ABG Potassium ABG Chloride ABG Glucose Carboxyhemoglobin Sodium Potassium Chloride Carbon Dioxide BUN Creatinine Glucose POC Glucose 140 H 209 H Lactic Acid Calcium Phosphorus Magnesium Ferritin Total Bilirubin Direct Bilirubin AST ALT Alkaline Phosphatase Ammonia Lactate Dehydrogenase Troponin T C-Reactive Protein Total Protein Albumin Triglycerides Cholesterol HDL Cholesterol Lipase Arterial Blood Glucose Arterial Blood Ionized Calcium Urine WBC (Auto) 103.0 H Salicylates Acetaminophen Coronavirus (PCR) 03/07/21 03/07/21 03/07/21 03:00 05:32 08:16 WBC RBC Hgb Hct MCV MCH RDW Seg Neutrophils % Monocytes % (Manual) Seg Neutrophils # Monocytes # (Manual) PT INR D-Dimer Heparin Anti-Xa Level ABG pH POC ABG pCO2 POC ABG pO2 ABG Hemoglobin 8.9 L ABG Oxyhemoglobin ABG Sodium 131.4 L ABG Potassium ABG Chloride ABG Glucose 224 H Carboxyhemoglobin Sodium 136 L Potassium Chloride 95.3 L Carbon Dioxide BUN 45 H Creatinine Glucose 210 H POC Glucose 213 H Lactic Acid Calcium 8.0 L Phosphorus Magnesium Ferritin Total Bilirubin 1.30 H Direct Bilirubin AST 144 H ALT 66 H Alkaline Phosphatase 335 H Ammonia Lactate Dehydrogenase Troponin T C-Reactive Protein Total Protein 4.9 L Albumin 2.1 L Triglycerides Cholesterol HDL Cholesterol Lipase Arterial Blood Glucose 224 H Arterial Blood Ionized Calcium 4.3 L Urine WBC (Auto) Salicylates Acetaminophen Coronavirus (PCR) 03/07/21 03/07/21 03/07/21 08:16 08:16 08:16 WBC RBC 2.47 L Hgb 8.2 L Hct 24.6 L MCV 100 H MCH 33 H RDW 18.1 H Seg Neutrophils % Monocytes % (Manual) Seg Neutrophils # Monocytes # (Manual) PT INR D-Dimer 403.72 H Heparin Anti-Xa Level ABG pH POC ABG pCO2 POC ABG pO2 ABG Hemoglobin ABG Oxyhemoglobin ABG Sodium ABG Potassium ABG Chloride ABG Glucose Carboxyhemoglobin Sodium Potassium Chloride Carbon Dioxide BUN Creatinine Glucose POC Glucose Lactic Acid Calcium Phosphorus Magnesium Ferritin Total Bilirubin Direct Bilirubin AST ALT Alkaline Phosphatase Ammonia Lactate Dehydrogenase 453 H Troponin T C-Reactive Protein 32.50 H Total Protein Albumin Triglycerides Cholesterol HDL Cholesterol Lipase Arterial Blood Glucose Arterial Blood Ionized Calcium Urine WBC (Auto) Salicylates Acetaminophen Coronavirus (PCR) 03/07/21 03/07/21 03/07/21 08:16 11:24 17:22 WBC RBC Hgb Hct MCV MCH RDW Seg Neutrophils % Monocytes % (Manual) Seg Neutrophils # Monocytes # (Manual) PT INR D-Dimer Heparin Anti-Xa Level ABG pH POC ABG pCO2 POC ABG pO2 ABG Hemoglobin ABG Oxyhemoglobin ABG Sodium ABG Potassium ABG Chloride ABG Glucose Carboxyhemoglobin Sodium Potassium Chloride Carbon Dioxide BUN Creatinine Glucose POC Glucose 205 H 211 H Lactic Acid Calcium Phosphorus Magnesium Ferritin > 2000.0 H Total Bilirubin Direct Bilirubin AST ALT Alkaline Phosphatase Ammonia Lactate Dehydrogenase Troponin T C-Reactive Protein Total Protein Albumin Triglycerides Cholesterol HDL Cholesterol Lipase Arterial Blood Glucose Arterial Blood Ionized Calcium Urine WBC (Auto) Salicylates Acetaminophen Coronavirus (PCR) 03/07/21 03/08/21 03/08/21 Unknown 00:05 04:00 WBC RBC Hgb Hct MCV MCH RDW Seg Neutrophils % Monocytes % (Manual) Seg Neutrophils # Monocytes # (Manual) PT INR D-Dimer Heparin Anti-Xa Level 0.94 H ABG pH 7.452 H POC ABG pCO2 POC ABG pO2 75.5 L ABG Hemoglobin 10.0 L ABG Oxyhemoglobin 93.5 L ABG Sodium 134.7 L ABG Potassium ABG Chloride ABG Glucose 268 H Carboxyhemoglobin 0.3 L Sodium Potassium Chloride Carbon Dioxide BUN Creatinine Glucose POC Glucose 253 H Lactic Acid Calcium Phosphorus Magnesium Ferritin Total Bilirubin Direct Bilirubin AST ALT Alkaline Phosphatase Ammonia Lactate Dehydrogenase Troponin T C-Reactive Protein Total Protein Albumin Triglycerides Cholesterol HDL Cholesterol Lipase Arterial Blood Glucose 268 H Arterial Blood Ionized Calcium 4.5 L Urine WBC (Auto) Salicylates Acetaminophen Coronavirus (PCR) 03/08/21 03/08/21 03/08/21 05:27 06:10 06:10 WBC RBC 2.62 L Hgb 8.4 L Hct 26.0 L MCV 100 H MCH RDW 18.0 H Seg Neutrophils % Monocytes % (Manual) Seg Neutrophils # Monocytes # (Manual) PT INR D-Dimer Heparin Anti-Xa Level ABG pH POC ABG pCO2 POC ABG pO2 ABG Hemoglobin ABG Oxyhemoglobin ABG Sodium ABG Potassium ABG Chloride ABG Glucose Carboxyhemoglobin Sodium Potassium Chloride Carbon Dioxide BUN 49 H Creatinine Glucose 280 H POC Glucose 273 H Lactic Acid Calcium Phosphorus Magnesium Ferritin Total Bilirubin Direct Bilirubin AST 130 H ALT 68 H Alkaline Phosphatase 440 H Ammonia Lactate Dehydrogenase Troponin T C-Reactive Protein Total Protein 5.3 L Albumin 1.9 L Triglycerides Cholesterol HDL Cholesterol Lipase Arterial Blood Glucose Arterial Blood Ionized Calcium Urine WBC (Auto) Salicylates Acetaminophen Coronavirus (PCR) 03/08/21 03/08/21 03/08/21 11:27 17:56 23:20 WBC RBC Hgb Hct MCV MCH RDW Seg Neutrophils % Monocytes % (Manual) Seg Neutrophils # Monocytes # (Manual) PT INR D-Dimer Heparin Anti-Xa Level ABG pH POC ABG pCO2 POC ABG pO2 ABG Hemoglobin ABG Oxyhemoglobin ABG Sodium ABG Potassium ABG Chloride ABG Glucose Carboxyhemoglobin Sodium Potassium Chloride Carbon Dioxide BUN Creatinine Glucose POC Glucose 258 H 279 H 289 H Lactic Acid Calcium Phosphorus Magnesium Ferritin Total Bilirubin Direct Bilirubin AST ALT Alkaline Phosphatase Ammonia Lactate Dehydrogenase Troponin T C-Reactive Protein Total Protein Albumin Triglycerides Cholesterol HDL Cholesterol Lipase Arterial Blood Glucose Arterial Blood Ionized Calcium Urine WBC (Auto) Salicylates Acetaminophen Coronavirus (PCR) 03/09/21 03/09/21 03/09/21 04:00 05:12 08:00 WBC RBC Hgb Hct MCV MCH RDW Seg Neutrophils % Monocytes % (Manual) Seg Neutrophils # Monocytes # (Manual) PT INR D-Dimer 249.59 H Heparin Anti-Xa Level ABG pH 7.456 H POC ABG pCO2 POC ABG pO2 ABG Hemoglobin 8.9 L ABG Oxyhemoglobin ABG Sodium 135.6 L ABG Potassium ABG Chloride ABG Glucose 298 H Carboxyhemoglobin 0.3 L Sodium Potassium Chloride Carbon Dioxide BUN Creatinine Glucose POC Glucose 267 H Lactic Acid Calcium Phosphorus Magnesium Ferritin Total Bilirubin Direct Bilirubin AST ALT Alkaline Phosphatase Ammonia Lactate Dehydrogenase Troponin T C-Reactive Protein Total Protein Albumin Triglycerides Cholesterol HDL Cholesterol Lipase Arterial Blood Glucose 298 H Arterial Blood Ionized Calcium 4.5 L Urine WBC (Auto) Salicylates Acetaminophen Coronavirus (PCR) 03/09/21 03/09/21 03/09/21 08:00 08:00 08:00 WBC RBC Hgb Hct MCV MCH RDW Seg Neutrophils % Monocytes % (Manual) Seg Neutrophils # Monocytes # (Manual) PT INR D-Dimer Heparin Anti-Xa Level ABG pH POC ABG pCO2 POC ABG pO2 ABG Hemoglobin ABG Oxyhemoglobin ABG Sodium ABG Potassium ABG Chloride ABG Glucose Carboxyhemoglobin Sodium Potassium Chloride Carbon Dioxide BUN 44 H Creatinine Glucose 289 H POC Glucose Lactic Acid Calcium Phosphorus Magnesium Ferritin 2743.0 H Total Bilirubin Direct Bilirubin AST 134 H ALT 62 H Alkaline Phosphatase 527 H Ammonia Lactate Dehydrogenase 459 H Troponin T C-Reactive Protein 10.60 H Total Protein 5.0 L Albumin 2.2 L Triglycerides Cholesterol HDL Cholesterol Lipase Arterial Blood Glucose Arterial Blood Ionized Calcium Urine WBC (Auto) Salicylates Acetaminophen Coronavirus (PCR) 03/09/21 03/09/21 03/09/21 08:00 11:52 18:05 WBC RBC 2.60 L Hgb 8.5 L Hct 25.5 L MCV 98 H MCH 33 H RDW 18.1 H Seg Neutrophils % Monocytes % (Manual) Seg Neutrophils # Monocytes # (Manual) PT INR D-Dimer Heparin Anti-Xa Level ABG pH POC ABG pCO2 POC ABG pO2 ABG Hemoglobin ABG Oxyhemoglobin ABG Sodium ABG Potassium ABG Chloride ABG Glucose Carboxyhemoglobin Sodium Potassium Chloride Carbon Dioxide BUN Creatinine Glucose POC Glucose 306 H 293 H Lactic Acid Calcium Phosphorus Magnesium Ferritin Total Bilirubin Direct Bilirubin AST ALT Alkaline Phosphatase Ammonia Lactate Dehydrogenase Troponin T C-Reactive Protein Total Protein Albumin Triglycerides Cholesterol HDL Cholesterol Lipase Arterial Blood Glucose Arterial Blood Ionized Calcium Urine WBC (Auto) Salicylates Acetaminophen Coronavirus (PCR) 03/09/21 03/10/21 03/10/21 23:21 04:38 05:25 WBC RBC Hgb 8.6 L Hct 26.0 L MCV MCH RDW Seg Neutrophils % Monocytes % (Manual) Seg Neutrophils # Monocytes # (Manual) PT INR D-Dimer Heparin Anti-Xa Level ABG pH POC ABG pCO2 POC ABG pO2 ABG Hemoglobin ABG Oxyhemoglobin ABG Sodium ABG Potassium ABG Chloride ABG Glucose Carboxyhemoglobin Sodium Potassium Chloride Carbon Dioxide BUN Creatinine Glucose POC Glucose 306 H 310 H Lactic Acid Calcium Phosphorus Magnesium Ferritin Total Bilirubin Direct Bilirubin AST ALT Alkaline Phosphatase Ammonia Lactate Dehydrogenase Troponin T C-Reactive Protein Total Protein Albumin Triglycerides Cholesterol HDL Cholesterol Lipase Arterial Blood Glucose Arterial Blood Ionized Calcium Urine WBC (Auto) Salicylates Acetaminophen Coronavirus (PCR) 03/10/21 03/10/21 03/10/21 05:25 12:33 12:52 WBC RBC Hgb Hct MCV MCH RDW Seg Neutrophils % Monocytes % (Manual) Seg Neutrophils # Monocytes # (Manual) PT INR D-Dimer Heparin Anti-Xa Level ABG pH 7.487 H POC ABG pCO2 POC ABG pO2 62.1 L ABG Hemoglobin 9.4 L ABG Oxyhemoglobin 89.7 L ABG Sodium ABG Potassium ABG Chloride ABG Glucose 350 H Carboxyhemoglobin 0.2 L Sodium Potassium Chloride Carbon Dioxide 32 H BUN 45 H Creatinine Glucose 341 H POC Glucose 340 H Lactic Acid Calcium Phosphorus Magnesium Ferritin Total Bilirubin Direct Bilirubin AST ALT Alkaline Phosphatase Ammonia Lactate Dehydrogenase Troponin T C-Reactive Protein Total Protein Albumin Triglycerides Cholesterol HDL Cholesterol Lipase Arterial Blood Glucose 350 H Arterial Blood Ionized Calcium Urine WBC (Auto) Salicylates Acetaminophen Coronavirus (PCR) 03/10/21 03/10/21 03/11/21 17:05 22:57 04:58 WBC RBC Hgb Hct MCV MCH RDW Seg Neutrophils % Monocytes % (Manual) Seg Neutrophils # Monocytes # (Manual) PT INR D-Dimer Heparin Anti-Xa Level ABG pH POC ABG pCO2 POC ABG pO2 ABG Hemoglobin ABG Oxyhemoglobin ABG Sodium ABG Potassium ABG Chloride ABG Glucose Carboxyhemoglobin Sodium Potassium Chloride Carbon Dioxide BUN Creatinine Glucose POC Glucose 298 H 241 H 261 H Lactic Acid Calcium Phosphorus Magnesium Ferritin Total Bilirubin Direct Bilirubin AST ALT Alkaline Phosphatase Ammonia Lactate Dehydrogenase Troponin T C-Reactive Protein Total Protein Albumin Triglycerides Cholesterol HDL Cholesterol Lipase Arterial Blood Glucose Arterial Blood Ionized Calcium Urine WBC (Auto) Salicylates Acetaminophen Coronavirus (PCR) 03/11/21 03/11/21 03/11/21 06:54 06:54 06:54 WBC RBC Hgb Hct MCV MCH RDW Seg Neutrophils % Monocytes % (Manual) Seg Neutrophils # Monocytes # (Manual) PT INR D-Dimer 238.43 H Heparin Anti-Xa Level ABG pH POC ABG pCO2 POC ABG pO2 ABG Hemoglobin ABG Oxyhemoglobin ABG Sodium ABG Potassium ABG Chloride ABG Glucose Carboxyhemoglobin Sodium 146 H Potassium Chloride Carbon Dioxide 31 H BUN 41 H Creatinine Glucose 255 H POC Glucose Lactic Acid Calcium Phosphorus Magnesium Ferritin 3346.0 H Total Bilirubin Direct Bilirubin AST ALT Alkaline Phosphatase Ammonia Lactate Dehydrogenase 557 H Troponin T C-Reactive Protein 4.70 H Total Protein Albumin Triglycerides Cholesterol HDL Cholesterol Lipase Arterial Blood Glucose Arterial Blood Ionized Calcium Urine WBC (Auto) Salicylates Acetaminophen Coronavirus (PCR) 03/11/21 03/11/21 03/11/21 06:54 11:25 17:41 WBC RBC 2.76 L Hgb 8.9 L Hct 27.0 L MCV 98 H MCH RDW 18.3 H Seg Neutrophils % Monocytes % (Manual) Seg Neutrophils # Monocytes # (Manual) PT INR D-Dimer Heparin Anti-Xa Level ABG pH POC ABG pCO2 POC ABG pO2 ABG Hemoglobin ABG Oxyhemoglobin ABG Sodium ABG Potassium ABG Chloride ABG Glucose Carboxyhemoglobin Sodium Potassium Chloride Carbon Dioxide BUN Creatinine Glucose POC Glucose 255 H 292 H Lactic Acid Calcium Phosphorus Magnesium Ferritin Total Bilirubin Direct Bilirubin AST ALT Alkaline Phosphatase Ammonia Lactate Dehydrogenase Troponin T C-Reactive Protein Total Protein Albumin Triglycerides Cholesterol HDL Cholesterol Lipase Arterial Blood Glucose Arterial Blood Ionized Calcium Urine WBC (Auto) Salicylates Acetaminophen Coronavirus (PCR) 03/11/21 03/12/21 03/12/21 23:26 04:44 05:16 WBC RBC Hgb Hct MCV MCH RDW Seg Neutrophils % Monocytes % (Manual) Seg Neutrophils # Monocytes # (Manual) PT INR D-Dimer Heparin Anti-Xa Level ABG pH POC ABG pCO2 POC ABG pO2 ABG Hemoglobin ABG Oxyhemoglobin ABG Sodium ABG Potassium ABG Chloride ABG Glucose Carboxyhemoglobin Sodium Potassium Chloride Carbon Dioxide BUN Creatinine Glucose POC Glucose 289 H 255 H Lactic Acid Calcium Phosphorus Magnesium Ferritin Total Bilirubin Direct Bilirubin AST ALT Alkaline Phosphatase Ammonia Lactate Dehydrogenase Troponin T 0.149 H* C-Reactive Protein Total Protein Albumin Triglycerides Cholesterol HDL Cholesterol Lipase Arterial Blood Glucose Arterial Blood Ionized Calcium Urine WBC (Auto) Salicylates Acetaminophen Coronavirus (PCR) 03/12/21 03/12/21 03/12/21 12:02 15:00 17:28 WBC RBC Hgb Hct MCV MCH RDW Seg Neutrophils % Monocytes % (Manual) Seg Neutrophils # Monocytes # (Manual) PT INR D-Dimer Heparin Anti-Xa Level ABG pH POC ABG pCO2 POC ABG pO2 ABG Hemoglobin ABG Oxyhemoglobin ABG Sodium ABG Potassium ABG Chloride ABG Glucose Carboxyhemoglobin Sodium Potassium 3.2 L Chloride Carbon Dioxide BUN 39 H Creatinine 0.7 L Glucose 258 H POC Glucose 237 H 257 H Lactic Acid Calcium 8.3 L Phosphorus Magnesium Ferritin Total Bilirubin 2.20 H Direct Bilirubin AST 181 H ALT 129 H Alkaline Phosphatase 541 H Ammonia Lactate Dehydrogenase Troponin T C-Reactive Protein Total Protein 5.0 L Albumin 2.0 L Triglycerides Cholesterol HDL Cholesterol Lipase Arterial Blood Glucose Arterial Blood Ionized Calcium Urine WBC (Auto) Salicylates Acetaminophen Coronavirus (PCR) 03/12/21 03/12/21 03/13/21 21:51 23:15 05:44 WBC RBC Hgb Hct MCV MCH RDW Seg Neutrophils % Monocytes % (Manual) Seg Neutrophils # Monocytes # (Manual) PT INR D-Dimer Heparin Anti-Xa Level ABG pH POC ABG pCO2 POC ABG pO2 ABG Hemoglobin ABG Oxyhemoglobin ABG Sodium ABG Potassium ABG Chloride ABG Glucose Carboxyhemoglobin Sodium Potassium Chloride Carbon Dioxide BUN Creatinine Glucose POC Glucose 253 H 287 H 247 H Lactic Acid Calcium Phosphorus Magnesium Ferritin Total Bilirubin Direct Bilirubin AST ALT Alkaline Phosphatase Ammonia Lactate Dehydrogenase Troponin T C-Reactive Protein Total Protein Albumin Triglycerides Cholesterol HDL Cholesterol Lipase Arterial Blood Glucose Arterial Blood Ionized Calcium Urine WBC (Auto) Salicylates Acetaminophen Coronavirus (PCR) 03/13/21 03/13/21 03/14/21 17:03 23:31 03:40 WBC RBC Hgb Hct MCV MCH RDW Seg Neutrophils % Monocytes % (Manual) Seg Neutrophils # Monocytes # (Manual) PT INR D-Dimer 475.91 H Heparin Anti-Xa Level ABG pH POC ABG pCO2 POC ABG pO2 ABG Hemoglobin ABG Oxyhemoglobin ABG Sodium ABG Potassium ABG Chloride ABG Glucose Carboxyhemoglobin Sodium Potassium Chloride Carbon Dioxide BUN Creatinine Glucose POC Glucose 228 H 275 H Lactic Acid Calcium Phosphorus Magnesium Ferritin Total Bilirubin Direct Bilirubin AST ALT Alkaline Phosphatase Ammonia Lactate Dehydrogenase Troponin T C-Reactive Protein Total Protein Albumin Triglycerides Cholesterol HDL Cholesterol Lipase Arterial Blood Glucose Arterial Blood Ionized Calcium Urine WBC (Auto) Salicylates Acetaminophen Coronavirus (PCR) 03/14/21 03/14/21 03/14/21 03:40 03:40 03:40 WBC RBC 2.25 L Hgb 7.4 L Hct 22.2 L MCV 99 H MCH 33 H RDW 18.5 H Seg Neutrophils % Monocytes % (Manual) Seg Neutrophils # Monocytes # (Manual) PT INR D-Dimer Heparin Anti-Xa Level ABG pH POC ABG pCO2 POC ABG pO2 ABG Hemoglobin ABG Oxyhemoglobin ABG Sodium ABG Potassium ABG Chloride ABG Glucose Carboxyhemoglobin Sodium Potassium 3.3 L Chloride Carbon Dioxide 37 H D BUN 24 H Creatinine 0.6 L Glucose 180 H POC Glucose Lactic Acid Calcium Phosphorus Magnesium Ferritin 3103.0 H Total Bilirubin 1.60 H Direct Bilirubin AST 283 H ALT 188 H Alkaline Phosphatase 619 H Ammonia Lactate Dehydrogenase 588 H Troponin T C-Reactive Protein 4.00 H Total Protein 4.8 L Albumin 2.2 L Triglycerides Cholesterol HDL Cholesterol Lipase Arterial Blood Glucose Arterial Blood Ionized Calcium Urine WBC (Auto) Salicylates Acetaminophen Coronavirus (PCR) 03/15/21 03/15/21 03/15/21 00:34 05:00 05:00 WBC RBC 2.40 L Hgb 7.8 L Hct 23.6 L MCV 99 H MCH 33 H RDW 18.3 H Seg Neutrophils % Monocytes % (Manual) Seg Neutrophils # Monocytes # (Manual) PT INR D-Dimer Heparin Anti-Xa Level ABG pH POC ABG pCO2 POC ABG pO2 ABG Hemoglobin ABG Oxyhemoglobin ABG Sodium ABG Potassium ABG Chloride ABG Glucose Carboxyhemoglobin Sodium Potassium Chloride Carbon Dioxide BUN Creatinine 0.6 L Glucose 238 H POC Glucose 287 H Lactic Acid Calcium 8.0 L Phosphorus Magnesium Ferritin Total Bilirubin 1.50 H Direct Bilirubin AST 189 H ALT 208 H Alkaline Phosphatase 659 H Ammonia Lactate Dehydrogenase Troponin T C-Reactive Protein Total Protein 5.1 L Albumin 2.1 L Triglycerides Cholesterol HDL Cholesterol Lipase Arterial Blood Glucose Arterial Blood Ionized Calcium Urine WBC (Auto) Salicylates Acetaminophen Coronavirus (PCR) 03/15/21 03/15/21 03/15/21 05:05 11:37 16:34 WBC RBC Hgb Hct MCV MCH RDW Seg Neutrophils % Monocytes % (Manual) Seg Neutrophils # Monocytes # (Manual) PT INR D-Dimer Heparin Anti-Xa Level ABG pH POC ABG pCO2 POC ABG pO2 ABG Hemoglobin ABG Oxyhemoglobin ABG Sodium ABG Potassium ABG Chloride ABG Glucose Carboxyhemoglobin Sodium Potassium Chloride Carbon Dioxide BUN Creatinine Glucose POC Glucose 238 H 236 H 280 H Lactic Acid Calcium Phosphorus Magnesium Ferritin Total Bilirubin Direct Bilirubin AST ALT Alkaline Phosphatase Ammonia Lactate Dehydrogenase Troponin T C-Reactive Protein Total Protein Albumin Triglycerides Cholesterol HDL Cholesterol Lipase Arterial Blood Glucose Arterial Blood Ionized Calcium Urine WBC (Auto) Salicylates Acetaminophen Coronavirus (PCR) 03/15/21 03/16/21 03/16/21 23:05 04:39 05:00 WBC RBC Hgb Hct MCV MCH RDW Seg Neutrophils % Monocytes % (Manual) Seg Neutrophils # Monocytes # (Manual) PT INR D-Dimer Heparin Anti-Xa Level ABG pH POC ABG pCO2 POC ABG pO2 ABG Hemoglobin ABG Oxyhemoglobin ABG Sodium ABG Potassium ABG Chloride ABG Glucose Carboxyhemoglobin Sodium Potassium Chloride Carbon Dioxide 33 H BUN Creatinine 0.5 L Glucose 195 H POC Glucose 336 H 205 H Lactic Acid Calcium Phosphorus Magnesium Ferritin Total Bilirubin Direct Bilirubin AST ALT Alkaline Phosphatase Ammonia Lactate Dehydrogenase Troponin T C-Reactive Protein Total Protein Albumin Triglycerides Cholesterol HDL Cholesterol Lipase Arterial Blood Glucose Arterial Blood Ionized Calcium Urine WBC (Auto) Salicylates Acetaminophen Coronavirus (PCR) 03/16/21 03/17/21 03/17/21 11:37 04:50 13:37 WBC RBC 2.52 L Hgb 8.6 L Hct 25.0 L MCV 99 H MCH 34 H RDW 18.1 H Seg Neutrophils % Monocytes % (Manual) Seg Neutrophils # Monocytes # (Manual) PT INR D-Dimer Heparin Anti-Xa Level ABG pH POC ABG pCO2 POC ABG pO2 ABG Hemoglobin ABG Oxyhemoglobin ABG Sodium ABG Potassium ABG Chloride ABG Glucose Carboxyhemoglobin Sodium Potassium Chloride Carbon Dioxide BUN Creatinine Glucose POC Glucose 222 H 113 H Lactic Acid Calcium Phosphorus Magnesium Ferritin Total Bilirubin Direct Bilirubin AST ALT Alkaline Phosphatase Ammonia Lactate Dehydrogenase Troponin T C-Reactive Protein Total Protein Albumin Triglycerides Cholesterol HDL Cholesterol Lipase Arterial Blood Glucose Arterial Blood Ionized Calcium Urine WBC (Auto) Salicylates Acetaminophen Coronavirus (PCR) 03/17/21 03/17/21 03/17/21 13:37 13:41 18:29 WBC RBC Hgb Hct MCV MCH RDW Seg Neutrophils % Monocytes % (Manual) Seg Neutrophils # Monocytes # (Manual) PT INR D-Dimer Heparin Anti-Xa Level ABG pH POC ABG pCO2 POC ABG pO2 ABG Hemoglobin ABG Oxyhemoglobin ABG Sodium ABG Potassium ABG Chloride ABG Glucose Carboxyhemoglobin Sodium Potassium 3.5 L Chloride Carbon Dioxide BUN Creatinine 0.4 L Glucose 174 H POC Glucose 176 H 180 H Lactic Acid Calcium Phosphorus Magnesium Ferritin Total Bilirubin Direct Bilirubin AST ALT Alkaline Phosphatase Ammonia Lactate Dehydrogenase Troponin T C-Reactive Protein Total Protein Albumin Triglycerides Cholesterol HDL Cholesterol Lipase Arterial Blood Glucose Arterial Blood Ionized Calcium Urine WBC (Auto) Salicylates Acetaminophen Coronavirus (PCR) 03/17/21 03/18/21 03/18/21 23:06 05:50 07:53 WBC RBC 2.46 L Hgb 7.9 L Hct 24.5 L MCV 100 H MCH RDW 18.0 H Seg Neutrophils % Monocytes % (Manual) Seg Neutrophils # Monocytes # (Manual) PT INR D-Dimer Heparin Anti-Xa Level ABG pH POC ABG pCO2 POC ABG pO2 ABG Hemoglobin ABG Oxyhemoglobin ABG Sodium ABG Potassium ABG Chloride ABG Glucose Carboxyhemoglobin Sodium Potassium Chloride Carbon Dioxide BUN Creatinine Glucose POC Glucose 127 H 108 H Lactic Acid Calcium Phosphorus Magnesium Ferritin Total Bilirubin Direct Bilirubin AST ALT Alkaline Phosphatase Ammonia Lactate Dehydrogenase Troponin T C-Reactive Protein Total Protein Albumin Triglycerides Cholesterol HDL Cholesterol Lipase Arterial Blood Glucose Arterial Blood Ionized Calcium Urine WBC (Auto) Salicylates Acetaminophen Coronavirus (PCR) 03/18/21 03/18/21 03/18/21 07:53 07:53 11:43 WBC RBC Hgb Hct MCV MCH RDW Seg Neutrophils % Monocytes % (Manual) Seg Neutrophils # Monocytes # (Manual) PT INR D-Dimer Heparin Anti-Xa Level ABG pH POC ABG pCO2 POC ABG pO2 ABG Hemoglobin ABG Oxyhemoglobin ABG Sodium ABG Potassium ABG Chloride ABG Glucose Carboxyhemoglobin Sodium Potassium Chloride Carbon Dioxide 31 H BUN Creatinine 0.4 L Glucose POC Glucose 158 H Lactic Acid Calcium 8.3 L Phosphorus Magnesium Ferritin Total Bilirubin Direct Bilirubin AST ALT Alkaline Phosphatase Ammonia Lactate Dehydrogenase Troponin T 0.185 H* C-Reactive Protein Total Protein Albumin Triglycerides Cholesterol HDL Cholesterol Lipase Arterial Blood Glucose Arterial Blood Ionized Calcium Urine WBC (Auto) Salicylates Acetaminophen Coronavirus (PCR) 03/18/21 03/18/21 03/19/21 16:36 18:03 04:48 WBC RBC Hgb Hct MCV MCH RDW Seg Neutrophils % Monocytes % (Manual) Seg Neutrophils # Monocytes # (Manual) PT INR D-Dimer Heparin Anti-Xa Level ABG pH POC ABG pCO2 POC ABG pO2 ABG Hemoglobin ABG Oxyhemoglobin ABG Sodium ABG Potassium ABG Chloride ABG Glucose Carboxyhemoglobin Sodium Potassium Chloride Carbon Dioxide BUN Creatinine Glucose POC Glucose 133 H 130 H 107 H Lactic Acid Calcium Phosphorus Magnesium Ferritin Total Bilirubin Direct Bilirubin AST ALT Alkaline Phosphatase Ammonia Lactate Dehydrogenase Troponin T C-Reactive Protein Total Protein Albumin Triglycerides Cholesterol HDL Cholesterol Lipase Arterial Blood Glucose Arterial Blood Ionized Calcium Urine WBC (Auto) Salicylates Acetaminophen Coronavirus (PCR) 03/19/21 03/19/21 03/20/21 12:47 22:05 13:05 WBC RBC Hgb Hct MCV MCH RDW Seg Neutrophils % Monocytes % (Manual) Seg Neutrophils # Monocytes # (Manual) PT INR D-Dimer Heparin Anti-Xa Level ABG pH POC ABG pCO2 POC ABG pO2 ABG Hemoglobin ABG Oxyhemoglobin ABG Sodium ABG Potassium ABG Chloride ABG Glucose Carboxyhemoglobin Sodium Potassium Chloride Carbon Dioxide BUN Creatinine Glucose POC Glucose 121 H 123 H 116 H Lactic Acid Calcium Phosphorus Magnesium Ferritin Total Bilirubin Direct Bilirubin AST ALT Alkaline Phosphatase Ammonia Lactate Dehydrogenase Troponin T C-Reactive Protein Total Protein Albumin Triglycerides Cholesterol HDL Cholesterol Lipase Arterial Blood Glucose Arterial Blood Ionized Calcium Urine WBC (Auto) Salicylates Acetaminophen Coronavirus (PCR) 03/20/21 03/21/21 03/21/21 16:47 06:46 10:30 WBC RBC Hgb Hct MCV MCH RDW Seg Neutrophils % Monocytes % (Manual) Seg Neutrophils # Monocytes # (Manual) PT INR D-Dimer Heparin Anti-Xa Level ABG pH POC ABG pCO2 POC ABG pO2 ABG Hemoglobin ABG Oxyhemoglobin ABG Sodium ABG Potassium ABG Chloride ABG Glucose Carboxyhemoglobin Sodium Potassium Chloride Carbon Dioxide BUN Creatinine Glucose POC Glucose 112 H 117 H Lactic Acid Calcium Phosphorus Magnesium Ferritin Total Bilirubin Direct Bilirubin AST ALT Alkaline Phosphatase Ammonia Lactate Dehydrogenase Troponin T C-Reactive Protein Total Protein Albumin Triglycerides Cholesterol HDL Cholesterol Lipase Arterial Blood Glucose Arterial Blood Ionized Calcium Urine WBC (Auto) Salicylates Acetaminophen Coronavirus (PCR) Positive A 03/21/21 03/21/21 03/21/21 11:46 13:30 16:50 WBC RBC Hgb Hct MCV MCH RDW Seg Neutrophils % Monocytes % (Manual) Seg Neutrophils # Monocytes # (Manual) PT INR D-Dimer Heparin Anti-Xa Level ABG pH POC ABG pCO2 POC ABG pO2 ABG Hemoglobin ABG Oxyhemoglobin ABG Sodium ABG Potassium ABG Chloride ABG Glucose Carboxyhemoglobin Sodium 136 L D Potassium 3.2 L Chloride 95.9 L Carbon Dioxide BUN Creatinine 0.4 L Glucose 105 H POC Glucose 107 H 106 H Lactic Acid Calcium 7.9 L Phosphorus Magnesium Ferritin Total Bilirubin Direct Bilirubin AST ALT Alkaline Phosphatase Ammonia Lactate Dehydrogenase Troponin T C-Reactive Protein Total Protein Albumin Triglycerides Cholesterol HDL Cholesterol Lipase Arterial Blood Glucose Arterial Blood Ionized Calcium Urine WBC (Auto) Salicylates Acetaminophen Coronavirus (PCR) 03/21/21 03/22/21 03/22/21 21:26 06:30 09:55 WBC RBC Hgb Hct MCV MCH RDW Seg Neutrophils % Monocytes % (Manual) Seg Neutrophils # Monocytes # (Manual) PT INR D-Dimer Heparin Anti-Xa Level ABG pH POC ABG pCO2 POC ABG pO2 ABG Hemoglobin ABG Oxyhemoglobin ABG Sodium ABG Potassium ABG Chloride ABG Glucose Carboxyhemoglobin Sodium Potassium 2.7 L* Chloride Carbon Dioxide BUN Creatinine 0.6 L Glucose POC Glucose 113 H Lactic Acid Calcium 7.7 L Phosphorus Magnesium 1.60 L Ferritin Total Bilirubin Direct Bilirubin AST ALT Alkaline Phosphatase Ammonia Lactate Dehydrogenase Troponin T C-Reactive Protein Total Protein Albumin Triglycerides Cholesterol HDL Cholesterol Lipase Arterial Blood Glucose Arterial Blood Ionized Calcium Urine WBC (Auto) Salicylates Acetaminophen Coronavirus (PCR) 03/22/21 03/22/21 03/22/21 12:27 14:44 17:48 WBC RBC Hgb Hct MCV MCH RDW Seg Neutrophils % Monocytes % (Manual) Seg Neutrophils # Monocytes # (Manual) PT INR D-Dimer Heparin Anti-Xa Level ABG pH POC ABG pCO2 POC ABG pO2 ABG Hemoglobin ABG Oxyhemoglobin ABG Sodium ABG Potassium ABG Chloride ABG Glucose Carboxyhemoglobin Sodium Potassium 2.9 L* Chloride Carbon Dioxide BUN Creatinine Glucose POC Glucose 110 H 110 H Lactic Acid Calcium Phosphorus Magnesium Ferritin Total Bilirubin Direct Bilirubin AST ALT Alkaline Phosphatase Ammonia Lactate Dehydrogenase Troponin T C-Reactive Protein Total Protein Albumin Triglycerides Cholesterol HDL Cholesterol Lipase Arterial Blood Glucose Arterial Blood Ionized Calcium Urine WBC (Auto) Salicylates Acetaminophen Coronavirus (PCR) 03/22/21 03/23/21 03/23/21 23:20 08:35 17:23 WBC RBC Hgb Hct MCV MCH RDW Seg Neutrophils % Monocytes % (Manual) Seg Neutrophils # Monocytes # (Manual) PT INR D-Dimer Heparin Anti-Xa Level ABG pH POC ABG pCO2 POC ABG pO2 ABG Hemoglobin ABG Oxyhemoglobin ABG Sodium ABG Potassium ABG Chloride ABG Glucose Carboxyhemoglobin Sodium Potassium Chloride Carbon Dioxide BUN Creatinine 0.6 L Glucose POC Glucose 107 H 121 H Lactic Acid Calcium 8.2 L Phosphorus Magnesium Ferritin Total Bilirubin Direct Bilirubin AST ALT Alkaline Phosphatase Ammonia Lactate Dehydrogenase Troponin T C-Reactive Protein Total Protein Albumin Triglycerides Cholesterol HDL Cholesterol Lipase Arterial Blood Glucose Arterial Blood Ionized Calcium Urine WBC (Auto) Salicylates Acetaminophen Coronavirus (PCR) 03/23/21 03/24/21 03/24/21 22:00 06:28 12:58 WBC RBC Hgb Hct MCV MCH RDW Seg Neutrophils % Monocytes % (Manual) Seg Neutrophils # Monocytes # (Manual) PT INR D-Dimer Heparin Anti-Xa Level ABG pH POC ABG pCO2 POC ABG pO2 ABG Hemoglobin ABG Oxyhemoglobin ABG Sodium ABG Potassium ABG Chloride ABG Glucose Carboxyhemoglobin Sodium Potassium Chloride Carbon Dioxide BUN Creatinine Glucose POC Glucose 116 H 121 H 133 H Lactic Acid Calcium Phosphorus Magnesium Ferritin Total Bilirubin Direct Bilirubin AST ALT Alkaline Phosphatase Ammonia Lactate Dehydrogenase Troponin T C-Reactive Protein Total Protein Albumin Triglycerides Cholesterol HDL Cholesterol Lipase Arterial Blood Glucose Arterial Blood Ionized Calcium Urine WBC (Auto) Salicylates Acetaminophen Coronavirus (PCR) 03/24/21 03/25/21 03/25/21 22:15 06:42 12:07 WBC RBC Hgb Hct MCV MCH RDW Seg Neutrophils % Monocytes % (Manual) Seg Neutrophils # Monocytes # (Manual) PT INR D-Dimer Heparin Anti-Xa Level ABG pH POC ABG pCO2 POC ABG pO2 ABG Hemoglobin ABG Oxyhemoglobin ABG Sodium ABG Potassium ABG Chloride ABG Glucose Carboxyhemoglobin Sodium Potassium Chloride Carbon Dioxide BUN Creatinine Glucose POC Glucose 118 H 117 H 135 H Lactic Acid Calcium Phosphorus Magnesium Ferritin Total Bilirubin Direct Bilirubin AST ALT Alkaline Phosphatase Ammonia Lactate Dehydrogenase Troponin T C-Reactive Protein Total Protein Albumin Triglycerides Cholesterol HDL Cholesterol Lipase Arterial Blood Glucose Arterial Blood Ionized Calcium Urine WBC (Auto) Salicylates Acetaminophen Coronavirus (PCR) 03/25/21 03/25/21 13:38 21:20 WBC RBC Hgb Hct MCV MCH RDW Seg Neutrophils % Monocytes % (Manual) Seg Neutrophils # Monocytes # (Manual) PT INR D-Dimer Heparin Anti-Xa Level ABG pH POC ABG pCO2 POC ABG pO2 ABG Hemoglobin ABG Oxyhemoglobin ABG Sodium ABG Potassium ABG Chloride ABG Glucose Carboxyhemoglobin Sodium 132 L Potassium Chloride 96.0 L Carbon Dioxide BUN 21 H Creatinine 1.6 H D Glucose 142 H POC Glucose 135 H Lactic Acid Calcium 8.3 L Phosphorus Magnesium Ferritin Total Bilirubin Direct Bilirubin AST ALT Alkaline Phosphatase Ammonia Lactate Dehydrogenase Troponin T C-Reactive Protein Total Protein Albumin Triglycerides Cholesterol HDL Cholesterol Lipase Arterial Blood Glucose Arterial Blood Ionized Calcium Urine WBC (Auto) Salicylates Acetaminophen Coronavirus (PCR) Allied health notes reviewed: nursing
[2021-03-26 13:14] VITALS: BP 142/68
== END 2021-03-26 13:45 | DRG 870 ==
LOC: ED 18:15 → CC1 23:26 → 3A 03-16 16:52
PROVIDERS: ADMIT Internal Medicine Geriatric Medicine; ATTEND Internal Medicine
PROC: 0BH17EZ Insertion of Endotracheal Airway into Trachea, Via Natural or Artificial Opening (ICD-10-PCS; principal; 2021-03-01)
PROC: 5A1955Z Respiratory Ventilation, Greater than 96 Consecutive Hours (ICD-10-PCS; 2021-03-01)
PROC: 4A033R1 Measurement of Arterial Saturation, Peripheral, Percutaneous Approach (ICD-10-PCS; 2021-03-01)
PROC: 03HC33Z Insertion of Infusion Device into Left Radial Artery, Percutaneous Approach (ICD-10-PCS; 2021-03-05)
PROC: XW033E5 Introduction of Remdesivir Anti-infective into Peripheral Vein, Percutaneous Approach, New Technology Group 5 (ICD-10-PCS; 2021-03-06)
PROC: 5A09357 Assistance with Respiratory Ventilation, Less than 24 Consecutive Hours, Continuous Positive Airway Pressure (ICD-10-PCS; 2021-03-13)
PROC: 5A09357 Assistance with Respiratory Ventilation, Less than 24 Consecutive Hours, Continuous Positive Airway Pressure (ICD-10-PCS; 2021-03-15)
PROC: 5A09357 Assistance with Respiratory Ventilation, Less than 24 Consecutive Hours, Continuous Positive Airway Pressure (ICD-10-PCS; 2021-03-23)
PROC: 5A09357 Assistance with Respiratory Ventilation, Less than 24 Consecutive Hours, Continuous Positive Airway Pressure (ICD-10-PCS; 2021-03-25)
DX: A41.89 Other specified sepsis (principal); N17.0 Acute kidney failure with tubular necrosis; E11.10 Type 2 diabetes mellitus with ketoacidosis without coma; U07.1 COVID-19; G93.41 Metabolic encephalopathy; I21.4 Non-ST elevation (NSTEMI) myocardial infarction; I50.33 Acute on chronic diastolic (congestive) heart failure; J12.82 Pneumonia due to coronavirus disease 2019; J80 Acute respiratory distress syndrome; E87.1 Hypo-osmolality and hyponatremia; E87.2 Acidosis; I82.402 Acute embolism and thrombosis of unspecified deep veins of left lower extremity; Z68.41 Body mass index [BMI] 40.0-44.9, adult; I47.1 Supraventricular tachycardia; E83.51 Hypocalcemia; E87.6 Hypokalemia; E87.8 Other disorders of electrolyte and fluid balance, not elsewhere classified; E83.42 Hypomagnesemia; E11.9 Type 2 diabetes mellitus without complications; R74.01 Elevation of levels of liver transaminase levels; R65.20 Severe sepsis without septic shock; R77.8 Other specified abnormalities of plasma proteins; J45.909 Unspecified asthma, uncomplicated; D50.9 Iron deficiency anemia, unspecified; E80.6 Other disorders of bilirubin metabolism; J44.9 Chronic obstructive pulmonary disease, unspecified; G47.33 Obstructive sleep apnea (adult) (pediatric); E78.5 Hyperlipidemia, unspecified; E66.01 Morbid (severe) obesity due to excess calories; Z71.3 Dietary counseling and surveillance; Z86.711 Personal history of pulmonary embolism; Z79.899 Other long term (current) drug therapy; Z86.79 Personal history of other diseases of the circulatory system; Z79.891 Long term (current) use of opiate analgesic; Z79.01 Long term (current) use of anticoagulants; Z88.0 Allergy status to penicillin
CPT/HCPCS: 36415; 36600; 70450; 71045; 71250; 74018; 74176; 76705; 76770; 80048; 80053; 80061; 80076; 80307; 80320; 81001; 82140; 82728; 82805; 82962; 83615; 83690; 83735; 84100; 84132; 84145; 84443; 84484; 85007; 85014; 85018; 85025; 85027; 85049; 85379; 85520; 85610; 85730; 86038; 86140; 86850; 86900; 86901; 87040; 87070; 87086; 87205; 87641; 93005; 93306; 93970; 94002; 94003; 94640; 94644; 94660; 94760; 96365; 96367; 96375; 99292; G0378; G0480; J0153; J0282; J0330; J0360; J0456; J0692; J1100; J1630; J1644; J1650; J1815; J1940; J1956; J2270; J2704; J2930; J3010; J3370; J3475; J3480; J7030; J7040; J7050; J7060; U0003

== ENCOUNTER 2021-10-01 15:04 | Observation (INO) | payer MEDICARE ==
[2021-10-01 16:22] LABS: Basophils % (Auto) 0.3 % (0.0-1.8); Eosinophils # (Auto) 0.1 K/mm3 (0.0-0.4); Eosinophils % (Auto) 1.2 % (0.0-4.3); Hematocrit 28.4 % (35.5-45.6); Hemoglobin 9.6 gm/dl (11.8-15.2); Lymphocytes # (Auto) 2.6 K/mm3 (1.2-5.4); Lymphocytes % (Auto) 34.2 % (13.4-35.0); Mean Corpuscular HGB Conc 34 % (32-34); Mean Corpuscular Volume 94 fl (84-94); Monocytes # (Auto) 0.5 K/mm3 (0.0-0.8); Monocytes % (Auto) 6.3 % (0.0-7.3); Platelet Count 332 K/mm3 (140-440); Red Blood Count 3.01 M/mm3 (3.65-5.03); Red Cell Distribution Width 15.3 % (13.2-15.2)
--- NOTE | 2021-10-01 16:24 | Emergency Department Report ---
HPI - General Chief Complaint: Altered Mental Status Time Seen by Provider: 10/01/21 15:59 - HPI HPI: Room 2 The patient is a 51-year-old male present with a chief complaint of syncope. Patient states he was sitting in his wheelchair in the garage when the next thing he knows he is waking up in the ambulance. Patient reportedly had a syncopal episode but he denies any preceding symptoms. The patient states however for the past couple of days he is just had a "bad feeling" but is unable to give specific symptoms. When asked how he is feeling currently the patient replies he feels okay. Patient denies having chest pain or shortness of breath. Patient was transported by EMS and appeared to be in A. fib and intermittently would have runs of a rapid ventricular response. The patient had an episode of A. fib with rapid ventricular response while was obtaining the history with his heart rate going up to approximate 153 bpm transiently and then within seconds returning to the 90s. The patient made no complaints during this episode. When asked if he had a history of atrial fibrillation the patient states this does not sound familiar but he does not know. ED Past Medical Hx - Past Medical History Hx Hypertension: Yes Hx Congestive Heart Failure: Yes Hx Diabetes: Yes Hx Deep Vein Thrombosis: Yes Hx Asthma: Yes Hx COPD: Yes Additional medical history: sleep apnea - Surgical History Additional Surgical History: Left upper extremity debridement - Family History Family history: no significant - Social History Smoking Status: Current Some Day Smoker (2 to 3 cigarettes daily) Substance Use Type: None (Denies illicit drug use) - Medications Home Medications: Home Medications Medication Instructions Recorded Confirmed Last Taken Type Albuterol Sulfate [Proventil Hfa] 2.5 gm IH BID PRN 03/16/21 03/16/21 Unknown History Cholecalciferol Vit D3 [Vitamin D3 1,000 unit PO QDAY 03/16/21 03/16/21 Unknown History 1,000 UNIT TAB] Furosemide [Lasix TAB] 80 mg PO QDAY 03/16/21 03/16/21 Unknown History Linaclotide [Linzess] 145 mcg PO QDAY 03/16/21 03/16/21 Unknown History Pregabalin [Lyrica] 50 mg PO TID 03/16/21 03/16/21 Unknown History clonazePAM [KlonoPIN] 0.5 mg PO BID PRN 03/16/21 03/16/21 Unknown History predniSONE 15 mg PO QDAY 03/16/21 03/16/21 Unknown History Acetaminophen [Acetaminophen TAB] 650 mg PO Q4H PRN tablet 03/26/21 Unknown Rx Ascorbic Acid [Vitamin C] 500 mg PO BID tablet 03/26/21 Unknown Rx Aspirin [Aspirin BABY CHEW TAB] 81 mg PO QDAY tab.chew 03/26/21 Unknown Rx Calcium Carb/Vit D3/Minerals 1 each PO BID tablet 03/26/21 Unknown Rx [Caltrate Plus] Cholecalciferol (Vitamin D3) 5,000 unit PO QDAY tablet 03/26/21 Unknown Rx [Vitamin D3] Enoxaparin 130 mg SUB-Q Q12HR syringe 03/26/21 Unknown Rx Famotidine [Pepcid] 20 mg PO BID tablet 03/26/21 Unknown Rx Insulin Glargine [Lantus VIAL] 30 units SUB-Q QHS units 03/26/21 Unknown Rx Sennosides/Docusate [Senokot S] 1 tab FEEDTUBE BID tablet 03/26/21 Unknown Rx Zinc Sulfate 220 mg PO BID capsule 03/26/21 Unknown Rx dilTIAZem [Cardizem] 90 mg PO Q6HR tablet 03/26/21 Unknown Rx guaiFENesin ER [Mucinex ER] 600 mg PO BID tablet 03/26/21 Unknown Rx ED Review of Systems ROS: Stated complaint: AMS/SYNCOPE Other details as noted in HPI Constitutional: no symptoms reported Eyes: denies: eye pain ENT: denies: throat pain Respiratory: denies: cough, shortness of breath Cardiovascular: denies: chest pain Endocrine: no symptoms reported Gastrointestinal: denies: abdominal pain Musculoskeletal: myalgia Neurological: denies: headache Physical Exam - Physical Exam Vital Signs: Vital Signs 10/01/21 15:05 Temperature 98.9 F Pulse Rate 120 H Respiratory 18 Rate Blood Pressure 118/58 [Right] O2 Sat by Pulse 99 Oximetry Physical Exam: GENERAL: The patient is well-developed well-nourished male lying on stretcher not appearing to be in acute distress. [] HEENT: Normocephalic. Atraumatic. Extraocular motions are intact. Patient has moist mucous membranes. NECK: Supple. Trachea midline CHEST/LUNGS: Clear to auscultation. There is no respiratory distress noted. HEART/CARDIOVASCULAR: Irregularly irregular. There is no tachycardia. There is no gallop rub or murmur. ABDOMEN: Abdomen is soft, nontender. Patient has normal bowel sounds. There is no abdominal distention. SKIN: There is no rash. There is no diaphoresis. NEURO: The patient is awake, alert, and oriented. The patient is cooperative. The patient has normal speech. GCS 15 MUSCULOSKELETAL: There is no evidence of acute injury. ED Course Vital Signs 10/01/21 15:05 Temperature 98.9 F Pulse Rate 120 H Respiratory 18 Rate Blood Pressure 118/58 [Right] O2 Sat by Pulse 99 Oximetry ED Medical Decision Making - Lab Data Result diagrams: 10/01/21 16:00 10/01/21 16:00 - EKG Data -: EKG Interpreted by Me EKG shows normal: sinus rhythm Rate: normal - EKG Data When compared to previous EKG there are: previous EKG unavailable Interpretation: nonspecific ST-T wave chris 10/01/21 18:14 EMS EKG shows A. fib with RVR - Radiology Data Radiology results: report reviewed (Chest x-ray), image reviewed (Chest x-ray) interpreted by me: Chest x-ray-no definite focal infiltrates, no pneumothorax [facility] [address] [place] [address] XRay Report Signed Patient: TALIA TORRE MR#: [id number] : Acct:[id number] Age/Sex: 51 / M ADM Date: 10/01/21 Loc: ED Attending Dr: Ordering Physician: ZACKARY SNOW MD Date of Service: 10/01/21 Procedure(s): XR chest 1V ap Accession Number(s): [id number] cc: ZACKARY SNOW MD Fluoro Time In Minutes: CHEST 1 VIEW 10/01/2021 4:41 PM INDICATION / CLINICAL INFORMATION: Syncope. COMPARISON: 03/21/21. FINDINGS: SUPPORT DEVICES: None. HEART / MEDIASTINUM: The heart size and pulmonary vasculature are normal. The aorta is normal in caliber. LUNGS / PLEURA: Pleuroparenchymal disease in the left mid to lower hemithorax has almost completely cleared. Minimal residual disease is likely related to scarring. The right lung is clear. No pneumothorax. ADDITIONAL FINDINGS: No significant additional findings. IMPRESSION: No acute findings. Signer Name: Addi Page MD Signed: 10/01/2021 5:08 PM Workstation Name: [id number] Transcribed By: RT Dictated By: Addi Page MD Electronically Authenticated By: Addi Page MD Signed Date/Time: 10/01/211707 DD/ 06 TD/TT: - Differential Diagnosis Syncope, A. fib with RVR Critical care attestation.: If time is entered above; I have spent that time in minutes in the direct care of this critically ill patient, excluding procedure time. ED Disposition Clinical Impression: Atrial fibrillation with RVR, Syncope Disposition: ADMITTED INPATIENT Is pt being admited?: Yes Does the pt Need Aspirin: Yes Condition: Fair Instructions: Syncope (ED) Time of Disposition: 18:15 (Hospitalist notified (Dr. Donnelly))
[2021-10-01 16:50] LABS: Free T4 (Free Thyroxine) 1.64 ng/dL (0.76-1.46)
[2021-10-01] MEDS ORDERED: dilTIAZem/D5W 100 MG/100 ML BAG IV SCH (17:00)
[2021-10-01 17:06] LABS: INR 0.96 (0.87-1.13)
[2021-10-01 17:07] LABS: Partial Thromboplastin Time 29.7 Sec. (24.2-36.6)
--- NOTE | 2021-10-01 17:13 | XRay Report ---
CHEST 1 VIEW 10/01/2021 4:41 PM INDICATION / CLINICAL INFORMATION: Syncope. COMPARISON: 03/21/21. FINDINGS: SUPPORT DEVICES: None. HEART / MEDIASTINUM: The heart size and pulmonary vasculature are normal. The aorta is normal in jose manuel too. LUNGS / PLEURA: Pleuroparenchymal disease in the left mid to lower hemithorax has almost completely c leared. Minimal residual disease is likely related to scarring. The right lung is clear. No pneumotho rax. ADDITIONAL FINDINGS: No significant additional findings. IMPRESSION: No acute findings. Signer Name: Addi Page MD Signed: 10/01/2021 5:08 PM Workstation Name: [id number]
--- NOTE | 2021-10-01 17:38 | Cat Scan Report ---
CT head/brain wo con INDICATION / CLINICAL INFORMATION: 51 years Male; Syncope. TECHNIQUE: Routine CT head without contrast. All CT scans at this location are performed using CT dos e reduction for ALARA by means of automated exposure control. Note, 0.625 mm cuts were submitted for interpretation. COMPARISON: 03/01/2021 FINDINGS: BRAIN / INTRACRANIAL CONTENTS: No acute hemorrhage, mass effect, midline shift, hydrocephalus, or acu te, large territorial infarct. No signs of significant atrophy or chronic infarct. Minimal, nonspecif ic white matter disease suggested. CRANIOCERVICAL JUNCTION: No significant abnormality. ORBITS: No significant abnormality of visualized orbits. SINUSES / MASTOIDS: Mild to moderate mucosal thickening seen in the mastoids on the left. Minimal muc osal thickening seen in the ethmoids as well. ADDITIONAL FINDINGS: None. IMPRESSION: 1. No focal mass, hemorrhage, hydrocephalus, or acute, large territorial infarct. Signer Name: Jake Juarez MD, III Signed: 10/01/2021 5:34 PM Workstation Name: [id number]
[2021-10-01 17:50] LABS: Alanine Aminotransferase 7 units/L (7-56); BUN/Creatinine Ratio 18; Blood Urea Nitrogen 14 mg/dL (9-20); Calcium 8.9 mg/dL (8.4-10.2); Hemolysis Index 108
[2021-10-01 18:03] LABS: Creatine Kinase MB 1.7 ng/mL (0.0-4.0)
[2021-10-01 18:04] LABS: Chol/HDL Ratio 7.53 %; HDL Cholesterol 32 mg/dL (40-59); LDL Cholesterol,Direct 180 mg/dL (50-130)
[2021-10-01] MEDS ORDERED: MAGNESIUM SULFATE 2 GM/50 ML BAG IV ONE (18:16)
[2021-10-01] MEDS ORDERED: ASPIRIN 325 MG TAB PO ONE (18:16)
--- NOTE | 2021-10-01 19:41 | History and Physical Report ---
History of Present Illness Date of examination: 10/01/21 Date of admission: October 01, 2021 Chief complaint: Palpitations and syncope this morning History of present illness: 51-year-old -[place] male with complicated history from last February to March for acute respiratory failure with hypoxia secondary to COVID pneumonia was discharged on 20 L nasal cannula oxygen to LTAC in [facility]. From daily he was discharged home. Patient never had a follow-up with any of the recommended physicians. Today he was sitting in a chair and felt palpitations and passed out. Patient does not remember the event. No chest pain. In the emergency room--patient presents with A. fib with RVR. Patient apparently not taking any medications at home. Patient was started on Cardizem drip at 5 mg. No fever or chills. - Past Medical History --Hypertension: Yes --Congestive Heart Failure: Yes --Diabetes: Yes --Deep Vein Thrombosis: Yes --Asthma: Yes --COPD: Yes --sleep apnea - Surgical History Additional Surgical History: Left upper extremity debridement - Family History Family history: no significant - Social History Smoking Status: Current Some Day Smoker (2 to 3 cigarettes daily) Substance Use Type: None (Denies illicit drug use) Review of Systems ROS: Stated complaint: AMS/SYNCOPE Other details as noted in HPI Constitutional: no symptoms reported Eyes: denies: eye pain ENT: denies: throat pain Respiratory: denies: cough, shortness of breath Cardiovascular: denies: chest pain Endocrine: no symptoms reported Gastrointestinal: denies: abdominal pain Musculoskeletal: myalgia Neurological: denies: headache Medications and Allergies Allergies Allergy/AdvReac Type Severity Reaction Status Date / Time Penicillins Allergy Rash Verified 10/01/21 15:08 Home Medications Medication Instructions Recorded Confirmed Last Taken Type Albuterol Sulfate [Proventil Hfa] 2.5 gm IH BID PRN 03/16/21 03/16/21 Unknown History Cholecalciferol Vit D3 [Vitamin D3 1,000 unit PO QDAY 03/16/21 03/16/21 Unknown History 1,000 UNIT TAB] Furosemide [Lasix TAB] 80 mg PO QDAY 03/16/21 03/16/21 Unknown History Linaclotide [Linzess] 145 mcg PO QDAY 03/16/21 03/16/21 Unknown History Pregabalin [Lyrica] 50 mg PO TID 03/16/21 03/16/21 Unknown History clonazePAM [KlonoPIN] 0.5 mg PO BID PRN 03/16/21 03/16/21 Unknown History predniSONE 15 mg PO QDAY 03/16/21 03/16/21 Unknown History Acetaminophen [Acetaminophen TAB] 650 mg PO Q4H PRN tablet 03/26/21 Unknown Rx Ascorbic Acid [Vitamin C] 500 mg PO BID tablet 03/26/21 Unknown Rx Aspirin [Aspirin BABY CHEW TAB] 81 mg PO QDAY tab.chew 03/26/21 Unknown Rx Calcium Carb/Vit D3/Minerals 1 each PO BID tablet 03/26/21 Unknown Rx [Caltrate Plus] Cholecalciferol (Vitamin D3) 5,000 unit PO QDAY tablet 03/26/21 Unknown Rx [Vitamin D3] Enoxaparin 130 mg SUB-Q Q12HR syringe 03/26/21 Unknown Rx Famotidine [Pepcid] 20 mg PO BID tablet 03/26/21 Unknown Rx Insulin Glargine [Lantus VIAL] 30 units SUB-Q QHS units 03/26/21 Unknown Rx Sennosides/Docusate [Senokot S] 1 tab FEEDTUBE BID tablet 03/26/21 Unknown Rx Zinc Sulfate 220 mg PO BID capsule 03/26/21 Unknown Rx dilTIAZem [Cardizem] 90 mg PO Q6HR tablet 03/26/21 Unknown Rx guaiFENesin ER [Mucinex ER] 600 mg PO BID tablet 03/26/21 Unknown Rx Active Meds: Active Medications Diltiazem HCl (Cardizem/D5w 100mg/100ml) 100 mg in 100 mls @ 5 mls/hr IV TITR KYLE; Protocol Exam - Constitutional Vitals: Temp Pulse Resp BP Pulse Ox 98.9 F 94 H 16 118/58 99 10/01/21 15:05 10/01/21 18:30 10/01/21 18:30 10/01/21 15:05 10/01/21 18:30 General appearance: Present: no acute distress, well-nourished - EENT Eyes: Present: PERRL ENT: hearing intact, clear oral mucosa - Neck Neck: Present: supple, normal ROM - Respiratory Respiratory effort: normal Respiratory: bilateral: CTA - Cardiovascular Heart rate: 89 Rhythm: irregularly irregular Heart Sounds: Present: S1 & S2. Absent: rub, click - Extremities Extremities: pulses symmetrical, No edema Peripheral Pulses: within normal limits - Abdominal General gastrointestinal: Present: soft, non-tender, non-distended, normal bowel sounds Male genitourinary: Present: normal - Integumentary Integumentary: Present: clear, warm, dry - Musculoskeletal Musculoskeletal: gait normal, strength equal bilaterally - Psychiatric Psychiatric: appropriate mood/affect, intact judgment & insight - Neurologic Neurologic: CNII-XII intact, moves all extremities HEART Score - HEART Score History: Moderately suspicious Age: 45-65 Risk factors: 1-2 risk factors Troponin: Troponin T 0.030 ng/mL (0.00-0.029) H 10/01/21 16:00 Troponin: < normal limit - Critical Actions Critical Actions: 0-3 pts:0.9-1.7%risk of adverse cardiac event.Candidate for discharge Results - Labs CBC & Chem 7: 10/02/21 04:23 10/02/21 04:23 Labs: Laboratory Last Values WBC 7.5 K/mm3 (4.5-11.0) 10/01/21 16:00 RBC 3.01 M/mm3 (3.65-5.03) L 10/01/21 16:00 Hgb 9.6 gm/dl (11.8-15.2) L 10/01/21 16:00 Hct 28.4 % (35.5-45.6) L 10/01/21 16:00 MCV 94 fl (84-94) 10/01/21 16:00 MCH 32 pg (28-32) 10/01/21 16:00 MCHC 34 % (32-34) 10/01/21 16:00 RDW 15.3 % (13.2-15.2) H 10/01/21 16:00 Plt Count 332 K/mm3 (140-440) 10/01/21 16:00 Lymph % (Auto) 34.2 % (13.4-35.0) 10/01/21 16:00 [place] % (Auto) 6.3 % (0.0-7.3) 10/01/21 16:00 Eos % (Auto) 1.2 % (0.0-4.3) 10/01/21 16:00 Baso % (Auto) 0.3 % (0.0-1.8) 10/01/21 16:00 Lymph # (Auto) 2.6 K/mm3 (1.2-5.4) 10/01/21 16:00 [place] # (Auto) 0.5 K/mm3 (0.0-0.8) 10/01/21 16:00 Eos # (Auto) 0.1 K/mm3 (0.0-0.4) 10/01/21 16:00 Baso # (Auto) 0.0 K/mm3 (0.0-0.1) 10/01/21 16:00 Seg Neutrophils % 58.0 % (40.0-70.0) 10/01/21 16:00 Seg Neutrophils # 4.4 K/mm3 (1.8-7.7) 10/01/21 16:00 PT 13.8 Sec. (12.2-14.9) 10/01/21 16:00 INR 0.96 (0.87-1.13) 10/01/21 16:00 APTT 29.7 Sec. (24.2-36.6) 10/01/21 16:00 Sodium 142 mmol/L (137-145) 10/01/21 16:00 Potassium 3.2 mmol/L (3.6-5.0) L 10/01/21 16:00 Chloride 102.1 mmol/L (98-107) 10/01/21 16:00 Carbon Dioxide 22 mmol/L (22-30) 10/01/21 16:00 Anion Gap 21 mmol/L 10/01/21 16:00 BUN 14 mg/dL (9-20) 10/01/21 16:00 Creatinine 0.8 mg/dL (0.8-1.3) 10/01/21 16:00 Estimated GFR > 60 ml/min 10/01/21 16:00 BUN/Creatinine Ratio 18 % 10/01/21 16:00 Glucose 117 mg/dL (75-100) H 10/01/21 16:00 Calcium 8.9 mg/dL (8.4-10.2) 10/01/21 16:00 Magnesium 1.30 mg/dL (1.7-2.3) L 10/01/21 16:00 Total Bilirubin 0.40 mg/dL (0.1-1.2) 10/01/21 16:00 AST 21 units/L (5-40) 10/01/21 16:00 ALT 7 units/L (7-56) 10/01/21 16:00 Alkaline Phosphatase 80 units/L (35-129) 10/01/21 16:00 Total Creatine Kinase 83 units/L (55-170) 10/01/21 16:00 CK-MB (CK-2) 1.7 ng/mL (0.0-4.0) 10/01/21 16:00 CK-MB (CK-2) Rel Index 2.0 (0-4) 10/01/21 16:00 Troponin T 0.030 ng/mL (0.00-0.029) H 10/01/21 16:00 Total Protein 6.7 g/dL (6.3-8.2) 10/01/21 16:00 Albumin 3.0 g/dL (3.9-5) L 10/01/21 16:00 Albumin/Globulin Ratio 0.8 % 10/01/21 16:00 Triglycerides 150 mg/dL (2-149) H 10/01/21 16:00 Cholesterol 241 mg/dL (50-199) H 10/01/21 16:00 LDL Cholesterol Direct 180 mg/dL (50-130) H 10/01/21 16:00 HDL Cholesterol 32 mg/dL (40-59) L 10/01/21 16:00 Cholesterol/HDL Ratio 7.53 % 10/01/21 16:00 TSH 2.330 mlU/mL (0.270-4.200) 10/01/21 16:00 Free T4 1.64 ng/dL (0.76-1.46) H 10/01/21 16:00 Short CBC 10/01/21 10/02/21 Range/Units 16:00 04:23 WBC 7.5 7.1 (4.5-11.0) K/mm3 Hgb 9.6 L 9.1 L (11.8-15.2) gm/dl Hct 28.4 L 27.1 L (35.5-45.6) % Plt Count 332 336 (140-440) K/mm3 BMP 10/01/21 10/02/21 16:00 04:23 Sodium 142 139 Potassium 3.2 L 2.8 L* Chloride 102.1 98.9 Carbon Dioxide 22 29 D BUN 14 17 Creatinine 0.8 0.9 Glucose 117 H 130 H Calcium 8.9 9.2 Cardiac Enzymes 10/01/21 Range/Units 16:00 Total Creatine Kinase 83 (55-170) units/L CK-MB (CK-2) 1.7 (0.0-4.0) ng/mL Troponin T 0.030 H (0.00-0.029) ng/mL Liver Function 10/01/21 10/02/21 Range/Units 16:00 04:23 Total Bilirubin 0.40 0.30 (0.1-1.2) mg/dL AST 21 13 (5-40) units/L ALT 7 7 (7-56) units/L Alkaline Phosphatase 80 82 (35-129) units/L Albumin 3.0 L 3.0 L (3.9-5) g/dL - Imaging and Cardiology EKG: report reviewed (A. fib with RVR) Assessment and Plan Advance Directives: Yes (Full code) VTE prophylaxis?: Chemical Plan of care discussed with patient/family: Yes - Patient Problems (1) Atrial fibrillation with RVR Current Visit: Yes Status: Acute Plan to address problem: Patient started on Cardizem drip and oral Cardizem Cardiology consult requested Echocardiogram for ejection fraction (2) Syncope Current Visit: Yes Status: Acute Qualifiers: Encounter type: initial encounter Plan to address problem: Syncope work-up Probably secondary to rapid ventricular response Patient to get echocardiogram and carotid duplex scan (3) Hypokalemia Current Visit: Yes Status: Acute Plan to address problem: Potassium supplemented (4) Anemia Current Visit: Yes Status: Chronic Qualifiers: Anemia type: unspecified type Qualified Code(s): D64.9 - Anemia, un specified Plan to address problem: Anemia work-up (5) Hyperglycemia, unspecified Current Visit: Yes Status: Resolved Plan to address problem: Probably secondary to steroids during the last admission No need for any insulin at this time Check hemoglobin A1c (6) Hypertension Current Visit: Yes Status: Resolved Plan to address problem: Blood pressure medicines during last hospitalization Not on any blood pressure medications at this point We will trend the blood pressure and restart blood pressure medications if necessary (7) DVT prophylaxis Current Visit: Yes Status: Acute Plan to address problem: On anticoagulation GI prophylaxis (8) Advance care planning Current Visit: Yes Status: Acute Plan to address problem: Disease education conducted, care plan discussed, diagnosis discussed, prognosis discussed. Patient is full code. Patient acknowledges understanding and agreement with care plan. +30 minutes.
[2021-10-01] MEDS ORDERED: ACETAMINOPHEN 325 MG TAB PO PRN (19:52)
[2021-10-01] MEDS ORDERED: oxyCODONE /ACETAMINOPHEN 5-325MG TAB PO PRN (19:58)
[2021-10-01] MEDS: FAMOTIDINE 20 MG TAB PO SCH (21:34)
[2021-10-01] MEDS: HEPARIN 5,000 UNIT/1 ML VIAL SUB-Q SCH (21:34)
[2021-10-01] MEDS: SODIUM CHLORIDE 0.9% 1000 ML 1,000 ML IV SCH (22:05)
[2021-10-01] MEDS: dilTIAZem CD 120 MG CAP PO SCH (22:10)
[2021-10-01] MEDS: CALCIUM CARB/VIT D3/MINERALS 600 MG/800 UNITS TAB PO SCH (22:10)
[2021-10-02 05:14] LABS: Hematocrit 27.1 % (35.5-45.6); Hemoglobin 9.1 gm/dl (11.8-15.2); Mean Corpuscular HGB Conc 34 % (32-34); Mean Corpuscular Volume 92 fl (84-94); Platelet Count 336 K/mm3 (140-440); Red Blood Count 2.93 M/mm3 (3.65-5.03); Red Cell Distribution Width 15.4 % (13.2-15.2)
[2021-10-02 05:26] LABS: Alanine Aminotransferase 7 units/L (7-56); BUN/Creatinine Ratio 19; Blood Urea Nitrogen 17 mg/dL (9-20); Calcium 9.2 mg/dL (8.4-10.2); Hemolysis Index 0
[2021-10-02 06:02] LABS: Basophils % (Manual) 0 % (0.0-1.8); Monocytes % (Manual) 0 % (0.0-7.3); Platelet Estimate Consistent w Auto; RBC Morphology Normal; Total Cells Counted 100
[2021-10-02] MEDS ORDERED: POTASSIUM CHLORIDE ER 20 MEQ TAB PO SCH ×2 (07:00→10:00)
[2021-10-02] MEDS: POTASSIUM CHLORIDE ER 20 MEQ TAB PO SCH ×3 (08:51→13:59)
[2021-10-02] MEDS: CALCIUM CARB/VIT D3/MINERALS 600 MG/800 UNITS TAB PO SCH ×2 (09:00→22:16)
[2021-10-02] MEDS: ASPIRIN 81 MG TAB CHEW PO SCH (09:00)
[2021-10-02] MEDS: HEPARIN 5,000 UNIT/1 ML VIAL SUB-Q SCH ×2 (09:00→22:17)
[2021-10-02] MEDS: FAMOTIDINE 20 MG TAB PO SCH ×2 (09:02→22:17)
--- NOTE | 2021-10-02 09:27 | Event Note ---
Date: 10/02/21 Patient of [facility], please refer to their service for further cardiac management.
[2021-10-02 10:23] LABS: % Iron Saturation 19.51 %
--- NOTE | 2021-10-02 11:48 | Electrocardiograph Report ---
[facility] Test Date: 2021-10-01 Test Time: 18:10:18 Pat Name: TALIA TORRE Department: Room: A453 1 Gender: M Director Service: EARL : 1970 Requested By: ZACKARY SNOW Order Number: [id number] Reading MD: John Heard Measurements Intervals [place] Rate: 87 P: 12 ME: 147 QRS: -42 QRSD: 93 T: 122 QT: 384 QTc: 462 Interpretive Statements Sinus rhythm Ventricular premature complex Left anterior fascicular block Probable left ventricular hypertrophy Abnormal T, consider ischemia, lateral leads Compared to ECG 03/12/2021 14:16:32 Ventricular premature complex(es) now present Left anterior fascicular block now present T-wave abnormality now present Possible ischemia now present Supraventricular tachycardia no longer present Early repolarization no longer present ST (T wave) deviation no longer present Electronically Signed On 10-02-2021 10:48:59 EST by John Heard
[2021-10-02] MEDS: POTASSIUM CHLORIDE 10 MEQ 10 MEQ/100 ML BAG IV SCH (11:58)
--- NOTE | 2021-10-02 12:41 | Consultation ---
History of Present Illness Consult date: 10/02/21 Consult reason: atrial fibrillation History of present illness: Patient is a 51-year-old male with a complicated past medical history which includes hypertension, SVT, COVID-19 pneumonia who was brought to the ED for a syncopal episode. Patient reports that he was sitting in his garage in his wheelchair when he passed out. Patient reports that the next thing he knew he was in the ambulance being transported to the ED. Patient states he had no symptoms prior to passing out. History taken from documentation. Per documentation patient was thought to be in A. fib with RVR with rate of 153 however returned to sinus rhythm within seconds. At time of interview patient denies any complaints of chest pain shortness of breath, lightheadedness, nausea vomiting. Patient reports cramping pain throughout upper and lower extremities. Of note patient does report that he has not been taking any medications since his discharge from an LT[facility] about 2 months ago and reports that he only takes melatonin at home. Furthermore unclear how reliable patient is with history, patient reports that his heart stopped however no documentation shows any cardiac arrest or asystole. Patient was previously seen by our practice during past admission in March however patient never followed up as an outpatient. Cardiology is consulted for A. fib with RVR Past History Past Medical History: hypertension, other (covid,SVT) Past Surgical History: No surgical history Social history: Family history: no significant family history Medications and Allergies Allergies Allergy/AdvReac Type Severity Reaction Status Date / Time Penicillins Allergy Rash Verified 10/01/21 15:08 Home Medications Medication Instructions Recorded Confirmed Last Taken Type Albuterol Sulfate [Proventil Hfa] 2.5 gm IH BID PRN 03/16/21 03/16/21 Unknown History Cholecalciferol Vit D3 [Vitamin D3 1,000 unit PO QDAY 03/16/21 03/16/21 Unknown History 1,000 UNIT TAB] Furosemide [Lasix TAB] 80 mg PO QDAY 03/16/21 03/16/21 Unknown History Linaclotide [Linzess] 145 mcg PO QDAY 03/16/21 03/16/21 Unknown History Pregabalin [Lyrica] 50 mg PO TID 03/16/21 03/16/21 Unknown History clonazePAM [KlonoPIN] 0.5 mg PO BID PRN 03/16/21 03/16/21 Unknown History predniSONE 15 mg PO QDAY 03/16/21 03/16/21 Unknown History Acetaminophen [Acetaminophen TAB] 650 mg PO Q4H PRN tablet 03/26/21 Unknown Rx Ascorbic Acid [Vitamin C] 500 mg PO BID tablet 03/26/21 Unknown Rx Aspirin [Aspirin BABY CHEW TAB] 81 mg PO QDAY tab.chew 03/26/21 Unknown Rx Calcium Carb/Vit D3/Minerals 1 each PO BID tablet 03/26/21 Unknown Rx [Caltrate Plus] Cholecalciferol (Vitamin D3) 5,000 unit PO QDAY tablet 03/26/21 Unknown Rx [Vitamin D3] Enoxaparin 130 mg SUB-Q Q12HR syringe 03/26/21 Unknown Rx Famotidine [Pepcid] 20 mg PO BID tablet 03/26/21 Unknown Rx Insulin Glargine [Lantus VIAL] 30 units SUB-Q QHS units 03/26/21 Unknown Rx Sennosides/Docusate [Senokot S] 1 tab FEEDTUBE BID tablet 03/26/21 Unknown Rx Zinc Sulfate 220 mg PO BID capsule 03/26/21 Unknown Rx dilTIAZem [Cardizem] 90 mg PO Q6HR tablet 03/26/21 Unknown Rx guaiFENesin ER [Mucinex ER] 600 mg PO BID tablet 03/26/21 Unknown Rx Active Meds: Active Medications Acetaminophen (Acetaminophen 325 Mg Tab) 650 mg PO Q4H PRN PRN Reason: Pain MILD(1-3)/Fever >100.5/[place] Aspirin (Aspirin 81 Mg Tab Chew) 81 mg PO QDAY [facility] Last Admin: 10/02/21 09:00 Dose: 81 mg Cholecalciferol (Cholecalciferol (Vit D3) 5,000 Unit Tab) 5,000 unit PO QDAY [facility] Diltiazem HCl (Diltiazem Cd 120 Mg Cap) 120 mg PO Q24H [facility] Last Admin: 10/01/21 22:10 Dose: 120 mg Famotidine (Famotidine 20 Mg Tab) 20 mg PO BID [facility] Last Admin: 10/02/21 09:02 Dose: 20 mg Heparin Sodium (Porcine) (Heparin 5,000 Unit/1 Ml Vial) 5,000 unit SUB-Q Q12HR [facility] Last Admin: 10/02/21 09:00 Dose: 5,000 unit Sodium Chloride (Nacl 0.9% 1000 Ml) 1,000 mls @ 75 mls/hr IV DIRECT [facility] Last Admin: 10/01/21 22:05 Dose: 75 mls/hr Multivitamins/Minerals (Calcium Carb/Vit D3/Minerals 600 Mg/800 Units Tab) 1 each PO BID [facility] Last Admin: 10/02/21 09:00 Dose: 1 each Ondansetron HCl (Ondansetron 4 Mg/2 Ml Inj) 4 mg IV Q8H PRN PRN Reason: Nausea And Vomiting Potassium Chloride (Potassium Chloride Er 20 Meq Tab) 40 meq PO Q6H [facility] Stop: 10/02/21 14:01 Last Admin: 10/02/21 08:51 Dose: 40 meq Sodium Chloride (Sodium Chloride 0.9% 10 Ml Flush Syringe) 10 ml IV BID [facility] Last Admin: 10/02/21 09:02 Dose: 10 ml Sodium Chloride (Sodium Chloride 0.9% 10 Ml Flush Syringe) 10 ml IV PRN PRN PRN Reason: LINE FLUSH Review of Systems Constitutional: no weight loss, no weight gain, no fever, no chills Cardiovascular: no chest pain, no orthopnea, no palpitations, no l ightheadedness, no shortness of breath, no dyspnea on exertion Respiratory: no shortness of breath, no dyspnea on exertion Gastrointestinal: no abdominal pain, no nausea, no vomiting Musculoskeletal: muscle cramps (Bilaterally in upper and lower extremities), no neck stiffness Integumentary: no rash, no pruritis, no redness Neurological: memory loss, no head injury, no transient paralysis Psychiatric: no anxiety, no memory loss Endocrine: no cold intolerance, no heat intolerance Physical Examination Vital Signs Temp Pulse Resp BP Pulse Ox 98.9 F 120 H 18 118/58 99 10/01/21 15:05 10/01/21 15:05 10/01/21 15:05 10/01/21 15:05 10/01/21 15:05 General appearance: no acute distress HEENT: Positive: PERRL, Normocephaly Neck: Positive: trachea midline Cardiac: Positive: Reg Rate and Rhythm Lungs: Positive: Normal Breath Sounds Neuro: Positive: Grossly Intact Abdomen: Positive: Soft Skin: Negative: Rash, Suspicious Lesions, Ulceration Extremities: Absent: edema Results 10/02/21 04:23 10/02/21 04:23 Cardiac Enzymes 10/01/21 10/01/21 10/01/21 Range/Units 16:00 16:00 16:00 WBC 7.5 (4.5-11.0) K/mm3 RBC 3.01 L (3.65-5.03) M/mm3 Hgb 9.6 L (11.8-15.2) gm/dl Hct 28.4 L (35.5-45.6) % MCV 94 (84-94) fl MCH 32 (28-32) pg MCHC 34 (32-34) % RDW 15.3 H (13.2-15.2) % Plt Count 332 (140-440) K/mm3 Lymph % (Auto) 34.2 (13.4-35.0) % Nash % (Auto) 6.3 (0.0-7.3) % Eos % (Auto) 1.2 (0.0-4.3) % Baso % (Auto) 0.3 (0.0-1.8) % Lymph # (Auto) 2.6 (1.2-5.4) K/mm3 Nash # (Auto) 0.5 (0.0-0.8) K/mm3 Eos # (Auto) 0.1 (0.0-0.4) K/mm3 Baso # (Auto) 0.0 (0.0-0.1) K/mm3 Add Manual Diff Total Counted Seg Neutrophils % 58.0 (40.0-70.0) % Seg Neuts % (Manual) (40.0-70.0) % Band Neutrophils % % Lymphocytes % (Manual) (13.4-35.0) % Reactive Lymphs % (Man) % Monocytes % (Manual) (0.0-7.3) % Eosinophils % (Manual) (0.0-4.3) % Basophils % (Manual) (0.0-1.8) % Metamyelocytes % % Myelocytes % % Promyelocytes % % Blast Cells % % Nucleated RBC % Seg Neutrophils # 4.4 (1.8-7.7) K/mm3 Seg Neutrophils # Man (1.8-7.7) K/mm3 Band Neutrophils # K/mm3 Lymphocytes # (Manual) (1.2-5.4) K/mm3 Abs React Lymphs (Man) K/mm3 Monocytes # (Manual) (0.0-0.8) K/mm3 Eosinophils # (Manual) (0.0-0.4) K/mm3 Basophils # (Manual) (0.0-0.1) K/mm3 Metamyelocytes # K/mm3 Myelocytes # K/mm3 Promyelocytes # K/mm3 Blast Cells # K/mm3 WBC Morphology Hypersegmented Neuts Hyposegmented Neuts Hypogranular Neuts Smudge Cells Toxic Granulation Toxic Vacuolation Dohle Bodies Pelger-Huet Anomaly Katherine Rods Platelet Estimate Clumped Platelets Plt Clumps, EDTA Large Platelets Giant Platelets Platelet Satelliting Plt Morphology Comment RBC Morphology Dimorphic RBCs Polychromasia Hypochromasia Poikilocytosis Anisocytosis Microcytosis Macrocytosis Spherocytes Pappenheimer Bodies Sickle Cells Target Cells Tear Drop Cells Ovalocytes Helmet Cells [place] Bodies [place] Rings Dusty Cells Bite Cells Crenated Cell Elliptocytes Acanthocytes (Spur) Rouleaux Hemoglobin C Crystals Schistocytes Malaria parasites Henry Bodies Hem Pathologist Commnt PT 13.8 (12.2-14.9) Sec. INR 0.96 (0.87-1.13) APTT 29.7 (24.2-36.6) Sec. Sodium 142 (137-145) mmol/L Potassium 3.2 L (3.6-5.0) mmol/L Chloride 102.1 (98-107) mmol/L Carbon Dioxide 22 (22-30) mmol/L Anion Gap 21 mmol/L BUN 14 (9-20) mg/dL Creatinine 0.8 (0.8-1.3) mg/dL Estimated GFR > 60 ml/min BUN/Creatinine Ratio 18 % Glucose 117 H (75-100) mg/dL POC Glucose (70-105) mg/dL Calcium 8.9 (8.4-10.2) mg/dL Magnesium 1.30 L (1.7-2.3) mg/dL Iron (49-181) ug/dL TIBC (250-450) mcg/dL % Saturation % Transferrin (180-329) mg/dl Total Bilirubin 0.40 (0.1-1.2) mg/dL AST 21 (5-40) units/L ALT 7 (7-56) units/L Alkaline Phosphatase 80 (35-129) units/L Total Creatine Kinase 83 (55-170) units/L CK-MB (CK-2) 1.7 (0.0-4.0) ng/mL CK-MB (CK-2) Rel Index 2.0 (0-4) Troponin T 0.030 H (0.00-0.029) ng/mL Total Protein 6.7 (6.3-8.2) g/dL Albumin 3.0 L (3.9-5) g/dL Albumin/Globulin Ratio 0.8 % Triglycerides 150 H (2-149) mg/dL Cholesterol 241 H (50-199) mg/dL LDL Cholesterol Direct 180 H (50-130) mg/dL HDL Cholesterol 32 L (40-59) mg/dL Cholesterol/HDL Ratio 7.53 % Vitamin B12 (211-911) pg/mL TSH (0.270-4.200) mlU/mL Free T4 (0.76-1.46) ng/dL 10/01/21 10/02/21 10/02/21 Range/Units 16:00 04:23 04:23 WBC 7.1 (4.5-11.0) K/mm3 RBC 2.93 L (3.65-5.03) M/mm3 Hgb 9.1 L (11.8-15.2) gm/dl Hct 27.1 L (35.5-45.6) % MCV 92 (84-94) fl MCH 31 (28-32) pg MCHC 34 (32-34) % RDW 15.4 H (13.2-15.2) % Plt Count 336 (140-440) K/mm3 Lymph % (Auto) Physician Internist (13.4-35.0) % Nash % (Auto) (0.0-7.3) % Eos % (Auto) (0.0-4.3) % Baso % (Auto) (0.0-1.8) % Lymph # (Auto) (1.2-5.4) K/mm3 Nash # (Auto) (0.0-0.8) K/mm3 Eos # (Auto) (0.0-0.4) K/mm3 Baso # (Auto) (0.0-0.1) K/mm3 Add Manual Diff Complete Total Counted 100 Seg Neutrophils % Physician Internist (40.0-70.0) % Seg Neuts % (Manual) 47.0 (40.0-70.0) % Band Neutrophils % 0 % Lymphocytes % (Manual) 51.0 H (13.4-35.0) % Reactive Lymphs % (Man) 0 % Monocytes % (Manual) 0 (0.0-7.3) % Eosinophils % (Manual) 2.0 (0.0-4.3) % Basophils % (Manual) 0 (0.0-1.8) % Metamyelocytes % 0 % Myelocytes % 0 % Promyelocytes % 0 % Blast Cells % 0 % Nucleated RBC % Not Reportable Seg Neutrophils # (1.8-7.7) K/mm3 Seg Neutrophils # Man 3.3 (1.8-7.7) K/mm3 Band Neutrophils # 0.0 K/mm3 Lymphocytes # (Manual) 3.6 (1.2-5.4) K/mm3 Abs React Lymphs (Man) 0.0 K/mm3 Monocytes # (Manual) 0.0 (0.0-0.8) K/mm3 Eosinophils # (Manual) 0.1 (0.0-0.4) K/mm3 Basophils # (Manual) 0.0 (0.0-0.1) K/mm3 Metamyelocytes # 0.0 K/mm3 Myelocytes # 0.0 K/mm3 Promyelocytes # 0.0 K/mm3 Blast Cells # 0.0 K/mm3 WBC Morphology Not Reportable Hypersegmented Neuts Not Reportable Hyposegmented Neuts Not Reportable Hypogranular Neuts Not Reportable Smudge Cells Not Reportable Toxic Granulation Not Reportable Toxic Vacuolation Not Reportable Dohle Bodies Not Reportable Pelger-Huet Anomaly Not Reportable Katherine Rods Not Reportable Platelet Estimate Consistent w auto Clumped Platelets Not Reportable Plt Clumps, EDTA Not Reportable Large Platelets Not Reportable Giant Platelets Not Reportable Platelet Satelliting Not Reportable Plt Morphology Comment Not Reportable RBC Morphology Normal Dimorphic RBCs Not Reportable Polychromasia Not Reportable Hypochromasia Not Reportable Poikilocytosis Not Reportable Anisocytosis Not Reportable Microcytosis Not Reportable Macrocytosis Not Reportable Spherocytes Not Reportable Pappenheimer Bodies Not Reportable Sickle Cells Not Reportable Target Cells Not Reportable Tear Drop Cells Not Reportable Ovalocytes Not Reportable Helmet Cells Not Reportable [place] Bodies Not Reportable [place] Rings Not Reportable [place] Cells Not Reportable Bite Cells Not Reportable Crenated Cell Not Reportable Elliptocytes Not Reportable Acanthocytes (Spur) Not Reportable Rouleaux Not Reportable Hemoglobin C Crystals Not Reportable Schistocytes Not Reportable Malaria parasites Not Reportable Henry Bodies Not Reportable Hem Pathologist Commnt No PT (12.2-14.9) Sec. INR (0.87-1.13) APTT (24.2-36.6) Sec. Sodium 139 (137-145) mmol/L Potassium 2.8 L* (3.6-5.0) mmol/L Chloride 98.9 (98-107) mmol/L Carbon Dioxide 29 D (22-30) mmol/L Anion Gap 14 mmol/L BUN 17 (9-20) mg/dL Creatinine 0.9 (0.8-1.3) mg/dL Estimated GFR > 60 ml/min BUN/Creatinine Ratio 19 % Glucose 130 H (75-100) mg/dL POC Glucose (70-105) mg/dL Calcium 9.2 (8.4-10.2) mg/dL Magnesium (1.7-2.3) mg/dL Iron (49-181) ug/dL TIBC (250-450) mcg/dL % Saturation % Transferrin (180-329) mg/dl Total Bilirubin 0.30 (0.1-1.2) mg/dL AST 13 (5-40) units/L ALT 7 (7-56) units/L Alkaline Phosphatase 82 (35-129) units/L Total Creatine Kinase (55-170) units/L CK-MB (CK-2) (0.0-4.0) ng/mL CK-MB (CK-2) Rel Index (0-4) Troponin T (0.00-0.029) ng/mL Total Protein 7.0 (6.3-8.2) g/dL Albumin 3.0 L (3.9-5) g/dL Albumin/Globulin Ratio 0.8 % Triglycerides (2-149) mg/dL Cholesterol (50-199) mg/dL LDL Cholesterol Direct (50-130) mg/dL HDL Cholesterol (40-59) mg/dL Cholesterol/HDL Ratio % Vitamin B12 (211-911) pg/mL TSH 2.330 (0.270-4.200) mlU/mL Free T4 1.64 H (0.76-1.46) ng/dL 10/02/21 10/02/21 10/02/21 Range/Units 07:57 09:09 09:09 WBC (4.5-11.0) K/mm3 RBC (3.65-5.03) M/mm3 Hgb (11.8-15.2) gm/dl Hct (35.5-45.6) % MCV (84-94) fl MCH (28-32) pg MCHC (32-34) % RDW (13.2-15.2) % Plt Count (140-440) K/mm3 Lymph % (Auto) (13.4-35.0) % Nash % (Auto) (0.0-7.3) % Eos % (Auto) (0.0-4.3) % Baso % (Auto) (0.0-1.8) % Lymph # (Auto) (1.2-5.4) K/mm3 Nash # (Auto) (0.0-0.8) K/mm3 Eos # (Auto) (0.0-0.4) K/mm3 Baso # (Auto) (0.0-0.1) K/mm3 Add Manual Diff Total Counted Seg Neutrophils % (40.0-70.0) % Seg Neuts % (Manual) (40.0-70.0) % Band Neutrophils % % Lymphocytes % (Manual) (13.4-35.0) % Reactive Lymphs % (Man) % Monocytes % (Manual) (0.0-7.3) % Eosinophils % (Manual) (0.0-4.3) % Basophils % (Manual) (0.0-1.8) % Metamyelocytes % % Myelocytes % % Promyelocytes % % Blast Cells % % Nucleated RBC % Seg Neutrophils # (1.8-7.7) K/mm3 Seg Neutrophils # Man (1.8-7.7) K/mm3 Band Neutrophils # K/mm3 Lymphocytes # (Manual) (1.2-5.4) K/mm3 Abs React Lymphs (Man) K/mm3 Monocytes # (Manual) (0.0-0.8) K/mm3 Eosinophils # (Manual) (0.0-0.4) K/mm3 Basophils # (Manual) (0.0-0.1) K/mm3 Metamyelocytes # K/mm3 Myelocytes # K/mm3 Promyelocytes # K/mm3 Blast Cells # K/mm3 WBC Morphology Hypersegmented Neuts Hyposegmented Neuts Hypogranular Neuts Smudge Cells Toxic Granulation Toxic Vacuolation Dohle Bodies Pelger-Huet Anomaly Katherine Rods Platelet Estimate Clumped Platelets Plt Clumps, EDTA Large Platelets Giant Platelets Platelet Satelliting Plt Morphology Comment RBC Morphology Dimorphic RBCs Polychromasia Hypochromasia Poikilocytosis Anisocytosis Microcytosis Macrocytosis Spherocytes Pappenheimer Bodies Sickle Cells Target Cells Tear Drop Cells Ovalocytes Helmet Cells [place] Bodies [place] Rings Dusty Cells Bite Cells Crenated Cell Elliptocytes Acanthocytes (Spur) Rouleaux Hemoglobin C Crystals Schistocytes Malaria parasites Henry Bodies Hem Pathologist Commnt PT (12.2-14.9) Sec. INR (0.87-1.13) APTT (24.2-36.6) Sec. Sodium (137-145) mmol/L Potassium (3.6-5.0) mmol/L Chloride (98-107) mmol/L Carbon Dioxide (22-30) mmol/L Anion Gap mmol/L BUN (9-20) mg/dL Creatinine (0.8-1.3) mg/dL Estimated GFR ml/min BUN/Creatinine Ratio % Glucose (75-100) mg/dL POC Glucose 100 (70-105) mg/dL Calcium (8.4-10.2) mg/dL Magnesium (1.7-2.3) mg/dL Iron 79 (49-181) ug/dL TIBC 405 (250-450) mcg/dL % Saturation 19.51 % Transferrin 196 (180-329) mg/dl Total Bilirubin (0.1-1.2) mg/dL AST (5-40) units/L ALT (7-56) units/L Alkaline Phosphatase (35-129) units/L Total Creatine Kinase (55-170) units/L CK-MB (CK-2) (0.0-4.0) ng/mL CK-MB (CK-2) Rel Index (0-4) Troponin T (0.00-0.029) ng/mL Total Protein (6.3-8.2) g/dL Albumin (3.9-5) g/dL Albumin/Globulin Ratio % Triglycerides (2-149) mg/dL Cholesterol (50-199) mg/dL LDL Cholesterol Direct (50-130) mg/dL HDL Cholesterol (40-59) mg/dL Cholesterol/HDL Ratio % Vitamin B12 173.1 L (211-911) pg/mL TSH (0.270-4.200) mlU/mL Free T4 (0.76-1.46) ng/dL 10/02/21 Range/Units 11:45 WBC (4.5-11.0) K/mm3 RBC (3.65-5.03) M/mm3 Hgb (11.8-15.2) gm/dl Hct (35.5-45.6) % MCV (84-94) fl MCH (28-32) pg MCHC (32-34) % RDW (13.2-15.2) % Plt Count (140-440) K/mm3 Lymph % (Auto) (13.4-35.0) % Nash % (Auto) (0.0-7.3) % Eos % (Auto) (0.0-4.3) % Baso % (Auto) (0.0-1.8) % Lymph # (Auto) (1.2-5.4) K/mm3 Nash # (Auto) (0.0-0.8) K/mm3 Eos # (Auto) (0.0-0.4) K/mm3 Baso # (Auto) (0.0-0.1) K/mm3 Add Manual Diff Total Counted Seg Neutrophils % (40.0-70.0) % Seg Neuts % (Manual) (40.0-70.0) % Band Neutrophils % % Lymphocytes % (Manual) (13.4-35.0) % Reactive Lymphs % (Man) % Monocytes % (Manual) (0.0-7.3) % Eosinophils % (Manual) (0.0-4.3) % Basophils % (Manual) (0.0-1.8) % Metamyelocytes % % Myelocytes % % Promyelocytes % % Blast Cells % % Nucleated RBC % Seg Neutrophils # (1.8-7.7) K/mm3 Seg Neutrophils # Man (1.8-7.7) K/mm3 Band Neutrophils # K/mm3 Lymphocytes # (Manual) (1.2-5.4) K/mm3 Abs React Lymphs (Man) K/mm3 Monocytes # (Manual) (0.0-0.8) K/mm3 Eosinophils # (Manual) (0.0-0.4) K/mm3 Basophils # (Manual) (0.0-0.1) K/mm3 Metamyelocytes # K/mm3 Myelocytes # K/mm3 Promyelocytes # K/mm3 Blast Cells # K/mm3 WBC Morphology Hypersegmented Neuts Hyposegmented Neuts Hypogranular Neuts Smudge Cells Toxic Granulation Toxic Vacuolation Dohle Bodies Pelger-Huet Anomaly Katherine Rods Platelet Estimate Clumped Platelets Plt Clumps, EDTA Large Platelets Giant Platelets Platelet Satelliting Plt Morphology Comment RBC Morphology Dimorphic RBCs Polychromasia Hypochromasia Poikilocytosis Anisocytosis Microcytosis Macrocytosis Spherocytes Pappenheimer Bodies Sickle Cells Target Cells Tear Drop Cells Ovalocytes Helmet Cells [place] Bodies [place] Rings Dusty Cells Bite Cells Crenated Cell Elliptocytes Acanthocytes (Spur) Rouleaux Hemoglobin C Crystals Schistocytes Malaria parasites Henry Bodies Hem Pathologist Commnt PT (12.2-14.9) Sec. INR (0.87-1.13) APTT (24.2-36.6) Sec. Sodium (137-145) mmol/L Potassium (3.6-5.0) mmol/L Chloride (98-107) mmol/L Carbon Dioxide (22-30) mmol/L Anion Gap mmol/L BUN (9-20) mg/dL Creatinine (0.8-1.3) mg/dL Estimated GFR ml/min BUN/Creatinine Ratio % Glucose (75-100) mg/dL POC Glucose 102 (70-105) mg/dL Calcium (8.4-10.2) mg/dL Magnesium (1.7-2.3) mg/dL Iron (49-181) ug/dL TIBC (250-450) mcg/dL % Saturation % Transferrin (180-329) mg/dl Total Bilirubin (0.1-1.2) mg/dL AST (5-40) units/L ALT (7-56) units/L Alkaline Phosphatase (35-129) units/L Total Creatine Kinase (55-170) units/L CK-MB (CK-2) (0.0-4.0) ng/mL CK-MB (CK-2) Rel Index (0-4) Troponin T (0.00-0.029) ng/mL Total Protein (6.3-8.2) g/dL Albumin (3.9-5) g/dL Albumin/Globulin Ratio % Triglycerides (2-149) mg/dL Cholesterol (50-199) mg/dL LDL Cholesterol Direct (50-130) mg/dL HDL Cholesterol (40-59) mg/dL Cholesterol/HDL Ratio % Vitamin B12 (211-911) pg/mL TSH (0.270-4.200) mlU/mL Free T4 (0.76-1.46) ng/dL Coagulation 10/01/21 Range/Units 16:00 PT 13.8 (12.2-14.9) Sec. INR 0.96 (0.87-1.13) APTT 29.7 (24.2-36.6) Sec. Lipids 10/01/21 Range/Units 16:00 Triglycerides 150 H (2-149) mg/dL Cholesterol 241 H (50-199) mg/dL HDL Cholesterol 32 L (40-59) mg/dL Cholesterol/HDL Ratio 7.53 % CBC 10/01/21 10/02/21 Range/Units 16:00 04:23 WBC 7.5 7.1 (4.5-11.0) K/mm3 RBC 3.01 L 2.93 L (3.65-5.03) M/mm3 Hgb 9.6 L 9.1 L (11.8-15.2) gm/dl Hct 28.4 L 27.1 L (35.5-45.6) % Plt Count 332 336 (140-440) K/mm3 Lymph # (Auto) 2.6 (1.2-5.4) K/mm3 Nash # (Auto) 0.5 (0.0-0.8) K/mm3 Eos # (Auto) 0.1 (0.0-0.4) K/mm3 Baso # (Auto) 0.0 (0.0-0.1) K/mm3 Comprehensive Metabolic Panel 02/22/22 02/23/22 Range/Units 16:00 04:23 Sodium 142 139 (137-145) mmol/L Potassium 3.2 L 2.8 L* (3.6-5.0) mmol/L Chloride 102.1 98.9 (98-107) mmol/L Carbon Dioxide 22 29 D (22-30) mmol/L BUN 14 17 (9-20) mg/dL Creatinine 0.8 0.9 (0.8-1.3) mg/dL Glucose 117 H 130 H (75-100) mg/dL Calcium 8.9 9.2 (8.4-10.2) mg/dL AST 21 13 (5-40) units/L ALT 7 7 (7-56) units/L Alkaline Phosphatase 80 82 (35-129) units/L Total Protein 6.7 7.0 (6.3-8.2) g/dL Albumin 3.0 L 3.0 L (3.9-5) g/dL - Imaging and Cardiology Echo: report reviewed EKG interpretations - Telemetry EKG Rhythm: Sinus Rhythm - EKG Sinus rhythms and dysrhythmias: sinus rhythm Ventricular dysrhythmias: ventricular escape comple AV and intraventricular conduction: left anterior fascicular Assessment and Plan Patient is a 51-year-old male with a complicated past medical history which includes hypertension, SVT, COVID-19 pneumonia who was brought to the ED for a syncopal episode Syncope SVT/atrial tachycardia Hypertension Anemia Hypokalemia Medical noncompliance Echo 03/19/2021-EF 55 to 60%, mild diastolic dysfunction present, right ventr icular systolic function is normal, left and right atrium are normal in size, mild aortic regurgitation. Plan: EKG in hospital shows sinus rate 67 with PVCs left anterior fascicular block, probable LVH with abnormal T with. No acute ischemic changes. Troponins minimally elevated 0.03. Repeat cardiac enzymes pending Troponin leak likely due to episodes of SVT/atrial tachycardia Patient currently denies any complaints of chest pain shortness of breath nausea vomiting or diaphoresis Records reviewed EKG from EMS shows brief run of atrial tachycardia not atrial fibrillation. No acute ischemic changes classroom monitor reviewed patient had a brief run of SVT overnight around 1 AM. No episodes of A. fib No episodes of A. fib no indication for anticoagulation Agree with diltiazem 120 mg p.o. daily for rate control Potassium being replaced. Repeat BMP in a.m. with close monitoring of el ectrolytes Patient seen in conjunction with Dr. Heard who agrees with this plan of care - Patient Problems (1) Elevated troponin Current Visit: No Status: Acute (2) Medical non-compliance Current Visit: No Status: Chronic (3) Syncope Current Visit: Yes Status: Acute Qualifiers: Encounter type: initial encounter (4) Hypokalemia Current Visit: Yes Status: Acute (5) Hyperglycemia, unspecified Current Visit: Yes Status: Resolved (6) Hypertension Current Visit: Yes Status: Resolved
--- NOTE | 2021-10-02 13:27 | Vascular Lab Report ---
DUPLEX DOPPLER ULTRASOUND CAROTID, BILATERAL INDICATION / CLINICAL INFORMATION: Syncope. COMPARISON: None available. FINDINGS: RIGHT CAROTID: Mild calcified and noncalcified atherosclerotic plaque. - PLAQUE ESTIMATE (%): < 50% - CCA velocity: 66 cm/sec. - ICA peak systolic velocity: 83 cm/sec. - ICA/CCA PSV Ratio: Less than 2. Right Vertebral Artery: Antegrade flow. LEFT CAROTID: Minimal atherosclerotic plaque. - PLAQUE ESTIMATE (%): < 50% - CCA velocity: 80 cm/sec. - ICA peak systolic velocity: 92 cm/sec. - ICA/CCA PSV Ratio: Less than 2. Left Vertebral Artery: Antegrade flow. IMPRESSION: 1. Right Internal Carotid Artery: Less than 50% diameter stenosis. 2. Left Internal Carotid Artery: Less than 50% diameter stenosis. Velocity criteria are extrapolated from diameter data as defined by the Society of Radiologists in Ul trasound Consensus Conference, Radiology 2003; 229;340-346. NO STENOSIS (NORMAL) - Plaque = none; ICA PSV < 125 cm/sec; ICA/CCA PSV Ratio < 2.0 <50% STENOSIS - Plaque < 50%; ICA PSV < 125 cm/sec; ICA/CCA PSV Ratio < 2.0 50-69% STENOSIS - Plaque > 50%; ICA PSV = 125-230 cm/sec; ICA/CCA PSV Ratio = 2.0-4.0 >70% BUT <100% STENOSIS - Plaque > 50%; ICA PSV > 230 cm/sec; ICA/CCA PSV Ratio > 4.0 NEAR OCCLUSION - Plaque = visible lumen; ICA PSV = high/low/none; ICA/CCA PSV Ratio = variable TOTAL OCCLUSION - Plaque = no lumen; ICA PSV = none; ICA/CCA PSV Ratio = N/A Scribed by: Phyllis Fernandez RDMS, RVT, RMSKS Scribed: 10/02/2021 11:46 AM I have reviewed the images, agree with this report, and edited this report as needed. Signer Name: Dakota Alvarez MD Signed: 10/02/2021 1:03 PM Workstation Name: [id number]
[2021-10-02] MEDS: CHOLECALCIFEROL (VIT D3) 5,000 UNIT TAB PO SCH ×2 (13:50→13:58)
[2021-10-02] MEDS ORDERED: MAGNESIUM SULFATE 2 GM/50 ML BAG IV PRN (20:18)
[2021-10-02] MEDS ORDERED: MAGNESIUM SULFATE 4 GM/100 ML BAG IV PRN (20:18)
[2021-10-02] MEDS ORDERED: MAGNESIUM SULFATE 1 GM in SODIUM CHLORIDE 0.9% 50 ML IV PRN (20:18)
[2021-10-02] MEDS ORDERED: POTASSIUM CHLORIDE 20 MEQ 20 MEQ/100 ML BAG IV PRN (20:18)
[2021-10-02] MEDS ORDERED: POTASSIUM CHLORIDE 10 MEQ 10 MEQ/100 ML BAG IV PRN (20:18)
--- NOTE | 2021-10-02 20:37 | Event Note ---
Date: 10/02/21 Progress note: 51-year-old male with PMH of asthma, ongoing smoker, obesity was admitted to this hospital in 2020 with a Covid pneumonia with prolonged hospital stay and transfer to LTAC on 2 L O2. Subsequently patient will transfer to subacute rehab and then eventually to home. Patient lives with his . Currently he is on 4 L O2 and nonambulatory since hospitalized. Patient reports that he was given prescriptions for multiple medications but only takes Ambien. He uses his wheelchair to get around and his family helps with the transfers. Patient states he has no history of CAD or CHF. According to the records he had a history of SVT. Reportedly, patient was speaking to his family in garage when he suddenly passed out Without warning answer. Patient was brought to ED via EMS and an episode of A. fib with RVR as described. Subsequently patient has been in sinus rhythm with a stable vital signs. He is able to provide history and alert and fairly oriented. However, his memory, recall as well as a judgment appears to be impaired. Patient was seen by cardiology in consultation earlier today unavailable EKG tracings are on telemetry. It appears that patient had atrial tachycardia. Physical exam: Currently patient is asymptomatic, lying comfortably in bed. Fully alert and oriented. Face fairly symmetrical. Pupils normal. Extraocular millimeters is intact. Neck supple. No respiratory distress, lungs clear. RRR. Abdomen soft obese and nontender. Extremities no edema. Strength in lower extremities -4/5 bilaterally. Gait not tested. Assessment: Sudden onset of syncope without warning signs while sitting in wheelchair witnessed by his family Reported A. fib/RVR in ED which cannot be confirmed by cardiology based on available EKG tracings. Appear to have atrial tachycardia briefly. Patient with history of SVT Troponin 0 0.03 and 0.04. Hypokalemia, 3.2, 2.8, 3.2. Hypomagnesemia 1.3 and 1.7 Currently patient is asymptomatic. Cardiac work-up in progress. TSH 2.233 and a free T4 1.64 (0.71.4) Normocytic anemia, hemoglobin 9.6 and a 9.1 No obvious signs of bleeding. Hemodynamically stable B12 deficiency, B12 level 173 History of severe Covid infection in 2020 needing prolonged hospital stay and rehabilitation Currently remains on 4 L of home O2 Nonambulatory since Covid infection History of asthma, currently not in exacerbation Ongoing tobacco smoking Noncompliance patient reports he does not take his prescription medications other than Ambien. Plan: Replenish electrolytes aggressively B12 1000 mcg IM injections Repeat free T4 Continue telemetry monitoring closely Cardiology evaluation is in progress and await further recommendations. His magnesium and potassium are low and patient is currently refusing to take any medicines. He states that he does not like this hospital and likes to go to some of other hospital after leaving this hospital. I explained to the patient that hypokalemia and hypomagnesemia could trigger serious cardiac arrhythmias which could cause cardiac arrest and . This is particularly important since he just had an episode of syncope suddenly. I strongly encouraged patient not to leave AMA. I had a conference call with the and she agreed that patient should take his medications and not leave hospital AMA. This conversation by the patient as well as his were witnessed by patient's primary nurse as well as case resource manager.
[2021-10-02] MEDS: dilTIAZem CD 120 MG CAP PO SCH (22:16)
[2021-10-02] MEDS: POTASSIUM CHLORIDE ER 20 MEQ TAB PO PRN (22:33)
[2021-10-02] MEDS: SODIUM CHLORIDE 0.9% 1000 ML 1,000 ML IV SCH (22:48)
[2021-10-03] MEDS: POTASSIUM CHLORIDE ER 20 MEQ TAB PO PRN (00:47)
[2021-10-03] MEDS: ONDANSETRON 4 MG/2 ML INJ IV PRN ×2 (01:28→22:59)
[2021-10-03 05:57] LABS: Alanine Aminotransferase 6 units/L (7-56); Albumin 3.1 g/dL (3.9-5); BUN/Creatinine Ratio 23; Blood Urea Nitrogen 14 mg/dL (9-20); Calcium 9.5 mg/dL (8.4-10.2); Hemolysis Index 1
[2021-10-03] MEDS: CHOLECALCIFEROL (VIT D3) 5,000 UNIT TAB PO SCH (11:09)
[2021-10-03] MEDS: ASPIRIN 81 MG TAB CHEW PO SCH (11:09)
[2021-10-03] MEDS: HEPARIN 5,000 UNIT/1 ML VIAL SUB-Q SCH ×2 (11:09→22:59)
[2021-10-03] MEDS: CALCIUM CARB/VIT D3/MINERALS 600 MG/800 UNITS TAB PO SCH ×2 (11:09→22:18)
[2021-10-03] MEDS: FAMOTIDINE 20 MG TAB PO SCH ×2 (11:09→22:59)
[2021-10-03] MEDS ORDERED: METOPROLOL TARTRATE 25 MG TAB PO SCH ×2 (12:00→20:00)
[2021-10-03] MEDS ORDERED: CYANOCOBALAMIN (VIT B-12) 1000 MCG/1 ML INJ IM ONE (12:00)
[2021-10-03] MEDS ORDERED: POTASSIUM CHLORIDE ER 20 MEQ TAB PO ONE (12:04)
--- NOTE | 2021-10-03 13:30 | Progress Note ---
Assessment and Plan Patient is a 51-year-old male with a complicated past medical history which includes hypertension, SVT, COVID-19 pneumonia who was brought to the ED for a syncopal episode Syncope SVT/atrial tachycardia Hypertension Anemia Hypokalemia Medical noncompliance Echo 03/19/2021-EF 55 to 60%, mild diastolic dysfunction present, right ventricular systolic function is normal, left and right atrium are normal in size, mild aortic regurgitation. Plan: EKG in hospital shows sinus rate 67 with PVCs left anterior fascicular block, probable LVH with abnormal T with. No acute ischemic changes. Troponins minimally elevated x2 Troponin leak likely due to episodes of SVT/atrial tachycardia and electrolyte imbalances Patient currently denies any complaints of chest pain shortness of breath nausea vomiting or diaphoresis business support liaison reviewed patient had a brief episode of tiny sinus tach with APC which lasted no more than few. Patient still had no episodes of A. fib No indication for anticoagulation Continue diltiazem 120 mg p.o. daily for rate control Potassium improved this AM. Recommend close monitoring and replace as needed Cardiac status otherwise stable. Will see as needed Patient can follow-up with our group as an outpatient in 1 to 2 weeks after discharge Patient seen in conjunction with Dr. Heard who agrees with this plan of care - Patient Problems (1) Elevated troponin Current Visit: No Status: Acute (2) Medical non-compliance Current Visit: No Status: Chronic (3) Syncope Current Visit: Yes Status: Acute Qualifiers: Encounter type: initial encounter (4) Hypokalemia Current Visit: Yes Status: Acute (5) Hyperglycemia, unspecified Current Visit: Yes Status: Resolved (6) Hypertension Current Visit: Yes Status: Resolved Subjective Date of service: 10/03/21 Principal diagnosis: syncope Interval history: Patient resting in bed in no acute distress. Patient states he still has altered mental status Sinus 96 on monitor. Brief episode of sinus tach with APCs overnight that lasted several seconds Objective Vital Signs Temp Pulse Resp BP BP Pulse Ox 10/03/21 12:38 97.6 F 88 18 132/87 96 10/03/21 08:19 98.7 F 76 18 127/89 96 10/03/21 03:20 98.1 F 102 H 18 130/77 90 10/03/21 00:36 98 10/03/21 00:32 98.3 F 106 H 154/90 97 10/02/21 22:16 107 H 138/84 10/02/21 20:33 97.9 F 87 20 138/84 98 10/02/21 16:31 98.1 F 78 18 139/81 96 10/02/21 14:23 82 - Physical Examination General: No Apparent Distress HEENT: Positive: PERRL, Normocephaly Neck: Positive: trachea midline Cardiac: Positive: Reg Rate and Rhythm Lungs: Positive: Normal Breath Sounds Neuro: Positive: Grossly Intact Abdomen: Positive: Soft Skin: Negative: Rash, Suspicious Lesions, Ulceration Extremities: Absent: edema - Labs and Meds Cardiac Enzymes 10/03/21 Range/Units 05:00 AST 13 (5-40) units/L Comprehensive Metabolic Panel 10/02/21 10/03/21 Range/Units 18:14 05:00 Sodium 141 (137-145) mmol/L Potassium 3.2 L 3.4 L (3.6-5.0) mmol/L Chloride 102.2 (98-107) mmol/L Carbon Dioxide 29 (22-30) mmol/L BUN 14 (9-20) mg/dL Creatinine 0.6 L (0.8-1.3) mg/dL Glucose 94 (75-100) mg/dL Calcium 9.5 (8.4-10.2) mg/dL AST 13 (5-40) units/L ALT 6 L (7-56) units/L Alkaline Phosphatase 79 (35-129) units/L Total Protein 7.1 (6.3-8.2) g/dL Albumin 3.1 L (3.9-5) g/dL - Imaging and Cardiology EKG: report reviewed (Sanjay blunt with RVR) Echo: report reviewed - Telemetry EKG Rhythm: Sinus Rhythm - EKG Sinus rhythms and dysrhythmias: sinus rhythm Ventricular dysrhythmias: ventricular escape comple AV and intraventricular conduction: left anterior fascicular
--- NOTE | 2021-10-03 18:27 | Discharge Summary ---
Providers - Providers Date of Admission: 10/01/21 19:52 Attending physician: RENETTA CORBETT MD 10/02/21 09:27 Consult to Physician [CONS] Routine Comment: Consulting Provider: ROM MOSHER Physician Instructions: Reason For Exam: afib Primary care physician: WELDING MACHINE OPERATOR ELECTRO [employer]AS Hospitalization Condition: Stable Hospital course: History obtained from his . Patient is unable to provide accurate history due to cognitive impairment reportedly from COVID-19 infection in 2020. 51-year-old male with PMH of asthma, ongoing smoker, obesity was admitted to this hospital in 12/2020 with a Covid pneumonia needing intubation with prolonged hospital stay and transfer to LTAC on 20 L O2 in 01/28. Subsequently patient was transferred to subacute rehab and then eventually to home Thanksgiving. Patient lives with his . Currently he is on 4 L O2 and nonambulatory since hospitalized. He did all of her cognitive impairment with Covid 19 infection as well as DVT for which he maintained on Eliquis. Is history of SVT and takes metoprolol 25 mg 3 times daily. He takes Lasix 40 mg daily along with the potassium chloride 10 mg daily which he ran out few days ago. Reportedly, patient was speaking to his family in garage when he suddenly suffered two episodes of emesis during which patient would not answer and slumped in his wheelchair. 911 was called and patient had a third episode with residential manager. Patient was brought to ED via EMS. CT head did not show any acute process. EKG in ER was interpreted by ED physician as A. fib with RVR. However cardiology interpreted it as atrial tachycardia with PVCs. Patient was admitted for evaluation of syncopal episodes while sitting in wheelchair. Potassium in ED was 3.2 and was 2.8 on the following day morning. Patient maintained sinus rhythm throughout with intermittent atrial tachycardia and some PVCs. BP remained normal. Mental status remained normal with baseline cognitive impairment with some difficulty with comprehension and recall. Patient was seen by cardiology and evaluated. Echo performed in 03/2021 showed EF 55 to 60%, mild diastolic dysfunction present, right ventricular systolic function is normal, left and right atrium are normal in size, mild aortic regurgitation. EKG in hospital shows sinus rate 67 with PVCs left anterior fascicular block, probable LVH with abnormal T with. No acute ischemic changes. Troponins minimally elevated x2 and cardiology felt that Troponin leak likely due to episodes of SVT/atrial tachycardia and electrolyte imbalances and did not recommend any further work-up. Patient denied any complaints of chest pain shortness of breath nausea vomiting or diaphoresis. diesel trailer mechanic reviewed patient had a brief episode of tiny sinus tach with APC which lasted no more than few seconds. Lab work-up showed normocytic anemia with hemoglobin 9.1 with a B12 deficiency which is unknown to his family. Patient was placed on B12 supplementation. Free T4 was borderline high with no history of thyroid disorder. I advised his to have this followed up by an glass inspector after discharge. Hyperkalemia appears to be due to missing his potassium dose will continue with the Lasix. Patient did not have any respiratory distress with unremarkable chest x-ray. I discussed the case with cardiology and they cleared for discharge and recommended no further cardiac work-up or event monitoring. Home medication list as given by : Eliquis 5 mg twice daily, Pepcid 20 mg daily, Lasix 40 mg daily, potassium chloride 10 mg daily, lisinopril 5 mg daily, metoprolol 25 mg 3 times daily. Assessment: Sudden onset episodes of unresponsiveness/syncope when sitting in wheelchair CT had unremarkable Intermittent sinus tachycardia with PVCs on EKG and telemetry Past history of SVT on Lopressor 25 mg 3 times daily at home. Echocardiogram in 03/2021 showed normal LVEF. Troponin 0 0.03 and 0.04. Hypokalemia, likely diuretic induced due to missing daily potassium supplements3.2, 2.8, 3.2. 3.4, replenished Hypomagnesemia 1.3 and 1.7, replenished Patient remained asymptomatic throughout the hospital stay TSH 2.233 and a free T4 1.64 (0.71.4). Repeat free T4 on the following day 1.55 To be further worked up by an glass inspector after discharge. Normocytic anemia, hemoglobin 9.6 and a 9.1 No obvious signs of bleeding. Hemodynamically stable B12 deficiency, B12 level 173 Given B12 1000 mcg x 1 dose IM Placed on B12 2000 mcg daily p.o. History of severe Covid infection in 2020 needing intubation prolonged hospital stay and rehabilitation Currently remains on 4 L of home O2. Current chest x-ray unremarkable. Nonambulatory since Covid infection History of asthma, currently not in exacerbation Ongoing tobacco smoking History of DVT during COVID-19 infection Takes apixaban 5 mg twice daily at home Cognitive impairment developed during COVID-19 infection Discharge disposition: Patient is being discharged home after cleared by cardiology. I discussed discussed with his extensively including presenting symptoms, lab findings and a cardiology assessment and recommendations. I advised follow-up with cardiology and endocrinology after discharge. His verbalized her understanding of the post discharge plan in detail. was advised not to miss potassium when taking Lasix. Disposition: HOME / SELF CARE / HOMELESS Final Discharge Diagnosis (Prints w/discharge instructions): Sudden onset episodes of altered mental status while sitting in a wheelchair. Intermittent atrial tachycardia/SVT with PVCs. Hypokalemia with potassium 2.8 and hypomagnesemia, likely diuretic induced. Borderline elevation of free T4, rule out mild hypothyroidism. Chronic normocytic anemia. Newly diagnosed B12 deficiency. Chronic hypoxic respiratory failure on 4 L of O2. History of DVT on Eliquis. Chronic cognitive impairment likely due to COVID-19 infection. Nonambulatory after prolonged hospital stay for COVID-19 infection Time spent for discharge: 35 minutes Core Measure Documentation - Palliative Care Palliative Care/ Comfort Measures: Not Applicable - Core Measures Any of the following diagnoses?: none Exam - Constitutional Vitals: Temp Pulse Resp BP Pulse Ox 98.7 F 88 18 146/92 96 10/03/21 15:51 10/03/21 12:38 10/03/21 15:51 10/03/21 15:51 10/03/21 12:38 General appearance: Present: no acute distress, obese - EENT Eyes: Present: PERRL, EOM intact ENT: hearing intact, clear oral mucosa - Neck Neck: Present: supple - Respiratory Respiratory effort: normal Respiratory: bilateral: CTA - Cardiovascular Rhythm: regular - Extremities Extremities: No edema - Abdominal General gastrointestinal: Present: soft, non-tender, non-distended, normal bowel sounds - Integumentary Integumentary: Absent: rash - Neurologic Neurologic: other (Alert with chronic cognitive impairment, normal speech, good strength in upper extremities, strength 3/5 in lower extremities, symmetrical. Gaitnonambulatory) Plan Activity: advance as tolerated Diet: low fat, low salt Follow up with: PATRICIA LYNCH MD [Primary Care Provider] - 7 Days ROM MOSHER MD [Staff Physician] - 14 Days Prescriptions: Potassium Chloride [K-Dur] 20 meq PO QDAY #30 tablet Magnesium Oxide [Mag-Ox] 400 mg PO QDAY #30 tab Cyanocobalamin [Vitamin B-12] 2,000 mcg PO QDAY #30 tablet Other Discharge Orders: VL carotid duplex BILAT Location: None Selected
[2021-10-03] MEDS: POTASSIUM CHLORIDE 10 MEQ 10 MEQ/100 ML BAG IV SCH ×2 (18:48→18:59)
[2021-10-03 19:38] LABS: Hematocrit 27.4 % (35.5-45.6); Hemoglobin 9.3 gm/dl (11.8-15.2); Mean Corpuscular HGB Conc 34 % (32-34); Mean Corpuscular Volume 93 fl (84-94); Platelet Count 326 K/mm3 (140-440); Red Blood Count 2.93 M/mm3 (3.65-5.03); Red Cell Distribution Width 15.6 % (13.2-15.2)
[2021-10-03 19:49] LABS: INR 1.01 (0.87-1.13)
[2021-10-03] MEDS ORDERED: APIXABAN 5 MG TAB PO SCH (22:00)
[2021-10-04 01:09] VITALS: BP 125/75
--- NOTE | 2021-10-04 05:33 | Event Note ---
Date: 10/03/21 Progress note: Patient remained stable. He has no complaints. Vitals are stable. No chest pains, no events on telemetry and patient is eager to go home. On exam: Bedbound, No acute distress, lungs clear. RRR. Abdomen obese and nontender. No extremity edema. Strength lower extremities 3/5. Discussed extensively with his . Reportedly patient became poorly responsive slumped in wheelchair x2 and then once with the wastewater treatment plant instructor before brought to ED. No seizure activity reported. No history of seizures. reports that patient ran out of potassium with taking lisinopril preoperatively. This is likely cause of hypokalemia. Patient is currently nonambulatory and remains in bed wearing diapers. He needs help to transfer to wheelchair. Potassium today is 3.4 and being replenished. Discussed the case extensively with cardiology, Dr. Heard today. He confirmed patient had intermittent atrial tachycardia but no A. fib. Has PVCs but no NSVT. did not recommend any further cardiac work-up and he did not think event monitor is needed for further monitoring. Potassium dose increased to 20 mg daily and advised patient to the obtuse skip potassium when taking diuretic. Free T4 is borderline high. I advised the to have follow-up with endocrinology and cardiology in 2 weeks. Patient was discharged to home pending arrangements for transportation to home. I asked charge nurse to arrange for transportation for discharge after completion of IV potassium supplementation.
[2021-10-04] MEDS ORDERED: POTASSIUM CHLORIDE ER 20 MEQ TAB PO SCH (10:00)
[2021-10-04] MEDS ORDERED: FUROSEMIDE 40 MG TAB PO SCH (10:00)
[2021-10-04] MEDS ORDERED: CYANOCOBALAMIN (VIT B-12) 1000 MCG TAB PO SCH (10:00)
== END 2021-10-04 04:00 | disposition home or self-care (01) ==
LOC: ED 15:04 → 4A 19:52
PROVIDERS: ADMIT Internal Medicine; ATTEND Internal Medicine
DX: I48.20 Chronic atrial fibrillation, unspecified (principal); I47.1 Supraventricular tachycardia; R55 Syncope and collapse; I11.0 Hypertensive heart disease with heart failure; I50.9 Heart failure, unspecified; D64.9 Anemia, unspecified; E11.65 Type 2 diabetes mellitus with hyperglycemia; J44.9 Chronic obstructive pulmonary disease, unspecified; G47.30 Sleep apnea, unspecified; E87.6 Hypokalemia; E83.42 Hypomagnesemia; F17.210 Nicotine dependence, cigarettes, uncomplicated; R77.8 Other specified abnormalities of plasma proteins; Z86.718 Personal history of other venous thrombosis and embolism; Z79.899 Other long term (current) drug therapy; Z98.890 Other specified postprocedural states; Z79.82 Long term (current) use of aspirin; Z79.4 Long term (current) use of insulin; Z91.19 Patient's noncompliance with other medical treatment and regimen
CPT/HCPCS: 36415; 70450; 71045; 80053; 80061; 82550; 82553; 82565; 82607; 82747; 82962; 83550; 83735; 84132; 84439; 84443; 84479; 84484; 85025; 85027; 85610; 85730; 93005; 93010; 93880; 96365; 96366; 96367; 96372; 96375; 96376; 99285; G0378; J1644; J2405; J3475; J3480; J3490; J7030; 85007; Q0162